=== PATIENT | male | born 1965 | race Hispanic/Latino ===

== ENCOUNTER 2017-02-26 23:05 | Inpatient (IN) | payer OTHER ==
[2017-02-26] MEDS ORDERED: CARDIZEM IV ONE ×2 (23:20→23:26)
[2017-02-26] MEDS ORDERED: DILAUDID IV ONE (23:26)
[2017-02-26] MEDS ORDERED: CARDIZEM/D5W 100MG/100ML 100 MG/100 ML BAG IV ONE (23:26)
[2017-02-26] MEDS ORDERED: ZOFRAN IV ONE (23:27)
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
[2017-02-27 00:13] LABS: Basophils % (Auto) 2.3 % (0.0-1.8); Eosinophils % (Auto) 1.3 % (0.0-4.3); Hemoglobin 16.8 gm/dl (11.8-15.2); Mean Corpuscular HGB Conc 34 % (32-34); Mean Corpuscular Hemoglobin 34 pg (28-32); Mean Corpuscular Volume 100 fl (84-94); Platelet Count 206 K/mm3 (140-440); Red Blood Count 5.03 M/mm3 (3.65-5.03); Red Cell Distribution Width 15.7 % (13.2-15.2); White Blood Count 8.4 K/mm3 (4.5-11.0)
[2017-02-27 00:21] LABS: INR 1.12 (0.87-1.13)
[2017-02-27 00:22] LABS: Partial Thromboplastin Time 29.8 Sec. (24.2-36.6)
[2017-02-27 00:41] LABS: Alanine Aminotransferase 36 units/L (7-56); Albumin 4.2 g/dL (3.9-5); Albumin/Globulin Ratio 1.4 %; Alkaline Phosphatase 84 units/L (35-129); Anion Gap 24 mmol/L; Blood Urea Nitrogen 6 mg/dL (9-20); Calcium 8.6 mg/dL (8.4-10.2); Carbon Dioxide 22 mmol/L (22-30); Glucose 140 mg/dL (75-100); Potassium 4.1 mmol/L (3.6-5.0); Sodium 140 mmol/L (137-145); Total Protein 7.2 g/dL (6.3-8.2)
[2017-02-27] MEDS ORDERED: DILAUDID IV ONE ×2 (00:45→08:28)
[2017-02-27 01:33] LABS: Creatine Kinase MB 6.5 ng/mL (0.0-4.0)
[2017-02-27 01:34] LABS: Creatine Kinase 210 units/L (55-170)
[2017-02-27] MEDS ORDERED: D50W (25GM) IV PRN (02:29)
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
[2017-02-27] MEDS: ATIVAN IV PRN ×4 (05:05→21:29)
[2017-02-27 06:42] LABS: Creatine Kinase MB 5.8 ng/mL (0.0-4.0)
[2017-02-27 06:43] LABS: Creatine Kinase 171 units/L (55-170)
[2017-02-27] MEDS ORDERED: CARDIZEM/D5W 100MG/100ML 100 MG/100 ML BAG IV SCH (07:00)
[2017-02-27] MEDS: NOVOLOG SUB-Q SCH ×4 (08:52→21:58)
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
[2017-02-27] MEDS ORDERED: LOPRESSOR PO SCH (13:00)
[2017-02-27] MEDS: LASIX IV SCH (13:09)
[2017-02-27 13:58] LABS: Creatine Kinase MB 4.7 ng/mL (0.0-4.0)
[2017-02-27 13:59] LABS: Creatine Kinase 148 units/L (55-170)
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
[2017-02-27] MEDS: LOPRESSOR PO SCH ×3 (15:11→21:30)
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
[2017-02-27] MEDS: VITAMIN B-1 PO SCH (15:26)
[2017-02-27] MEDS: FOLVITE PO SCH (15:26)
[2017-02-27] MEDS: PROTONIX PO SCH (15:26)
[2017-02-27] MEDS: DILAUDID IV PRN (15:31)
--- NOTE | 2017-02-27 20:36 | Admit Criteria Form ---
Admission Criteria Documentation: ATRIAL FIBRILLATION Clinical Indications for Admission to Inpatient Care (Place 'X' for any and all applicable criteria): Admission indicated for ANY ONE of the following(1)(2)(3)(4)(5) : [ ]I. Myocardial ischemia [ ]II. Dyspnea or hypoxemia [ ]III. Hemodynamic instability [ ]IV. Heart failure (e.g., pulmonary edema) (7) [ ]V. New-onset (less than 48 hours) atrial fibrillation with high risk for causing complications secondary to comorbidities (eg, symptomatic heart failure ) [ ]. Altered mental status [ ]VII. Syncope [ ]VIII. Patient has implantable cardioverter defibrillator that has fired more than once within past 24hr or needs immediate adjustment of settings that cannot be done other than in inpatient setting. (8) [ ]IX. Suspected accessory pathway (e.g., Xbspk-Akpxrcywv-Rmapg syndrome) on ECG [ ]X. Recent systemic thromboembolism (eg, stroke) [ ]XI. Medication toxicity (e.g., digitalis) causing arrhythmia(9) [ ]XII. Underlying medical condition that necessitates inpatient care (e.g., thyrotoxicosis, pneumonia) (10) [ ]XIII. Continuous ECG monitoring is required for condition causing arrhythmia (e.g., severe hyperkalemia, hypokalemia, acid-base disturbance).(11)(12)(13) [ ]XIV. Initiation of antiarrhythmic drug therapy is needed in patient at high risk of adverse effects as indicated by ANY ONE of the following: [ ]a) Significant structural heart disease (e.g., reduced ejection fraction, congenital heart disease, valvular heart disease) [ ]b) Prolonged QT interval [ ]c) Underlying sinus node or atrioventricular conduction disturbances [ ]d) Need for treatment with antiarrhythmic drugs that have significant proarrhythmic potential (e.g., dofetilide, sotalol, procainamide) [ ]e) Patient whose sinus rhythm has never been observed on ECG [ ]XV. Intolerable symptoms despite optimal outpatient treatment [ ]XVI. Elective or urgent cardioversion that cannot be performed on outpatient basis or during observation care. [A] (Use also Atrial Fibrillation: Observation Care ) as appropriate.(14) [ ]XVII.Contraindications and/or Inappropriate clinical situations for Observational Care in patients with Atrial Fibrillation, when ANY ONE of the following is required: [ ]a) Patient with High risk of cardiac embolism (e.g, patients with previous cardiac embolism, LVEF < 40%, age >75 and patients with prosthetic valve) 18 [ ]b) Patient with Moderate risk including DM patient, CAD and patient aged 65-75 18 [ ]c) Patient with any change in cardiac biomarker especially troponin should be managed as high risk in an inpatient setting 19 [ ]d) Physician judgement irrespective of ECG and other diagnostic findings 20 [X ]XVIII.General contraindications and/or Inappropriate clinical situations for Observational Care in patients with Atrial Fibrillation, when ANY ONE of the following is required: [X ]a) Prediction of prolongation of LOS based on ANY ONE of the following may be considered as a contraindication for observational care 2, 3, 4, 5, 6, 7, 8, 9, 10, 11 [ ]i) Age > 65 yrs. [X ]ii) Patient arriving by ambulance [ ]iii) Patient with high acuity [ ]iv) Patient requiring vital sign monitoring [ ]v) Patient on IV medication [ ]b) Systolic blood pressures 180mmHg 3,12 [ ]c) Patient with altered mental status including delirium and other alteration of consciousness3 [ ]d) Patient whose discharge disposition will be to a half-way home or rehabilitation home should not be managed in Emergency Department Observation Unit. CMS rule requires 3 days hospital stay before such placement.3,13 [ ]e) Patient with failure to thrive due to broad array of etiologies 3,16,17 [ ]f) Inability to ambulate 3,14 Extended stay beyond goal length of stay may be needed for (1)(25)(26): [ ]a) Unstable comorbidities [ ]b) Persistently uncontrolled atrial fibrillation or other arrhythmias [ ]c) Acute thromboembolic event (e.g., stroke, limb ischemia) [ ]d) Need for inpatient attainment of full anticoagulation The original [employer] content created by [employer] has been revised. The portions of the content which have been revised are identified through the use of italic text or in bold, and [facility] has neither reviewed nor approved the modified material. All other unmodified content is copyright [facility]. Please see references footnoted in the original [facility] edition 2016 Admission Criteria Met: Yes
[2017-02-27] MEDS: LOVENOX SUB-Q SCH (21:30)
[2017-02-28] MEDS: ATIVAN IV PRN ×8 (00:17→15:11)
[2017-02-28] MEDS: DILAUDID IV PRN ×3 (00:17→22:59)
[2017-02-28 05:00] LABS: BUN/Creatinine Ratio 13.33; Blood Urea Nitrogen 8 mg/dL (9-20); Calcium 8.9 mg/dL (8.4-10.2); Carbon Dioxide 30 mmol/L (22-30); Glucose 126 mg/dL (75-100); Potassium 4.6 mmol/L (3.6-5.0); Sodium 138 mmol/L (137-145)
[2017-02-28 05:01] LABS: Hematocrit 47.6 % (35.5-45.6); Hemoglobin 15.9 gm/dl (11.8-15.2); Mean Corpuscular HGB Conc 33 % (32-34); Mean Corpuscular Hemoglobin 34 pg (28-32); Mean Corpuscular Volume 100 fl (84-94); Platelet Count 177 K/mm3 (140-440); Red Blood Count 4.75 M/mm3 (3.65-5.03); Red Cell Distribution Width 15.4 % (13.2-15.2); White Blood Count 10.3 K/mm3 (4.5-11.0)
[2017-02-28 05:04] LABS: Anion Gap 18 mmol/L
[2017-02-28] MEDS: LOPRESSOR PO SCH ×4 (05:37→20:17)
[2017-02-28] MEDS: HALDOL IV PRN (07:35)
[2017-02-28] MEDS: NOVOLOG SUB-Q SCH ×3 (08:00→17:00)
[2017-02-28] MEDS: LASIX IV SCH (09:17)
[2017-02-28] MEDS: VITAMIN B-1 PO SCH (09:17)
[2017-02-28] MEDS: FOLVITE PO SCH (09:17)
[2017-02-28] MEDS: PROTONIX PO SCH (09:18)
--- NOTE | 2017-02-28 09:46 | Progress Note ---
Assessment and Plan afib with rvr ams left rib fracture htn eoth abuse Cardiomyopathy rec: Patient altered mental status probably secondary due to EtOH abuse will restart IV Cardizem waiting echo patient not anticoagulation secondary to noncompliance Subjective Date of service: 02/28/17 Principal diagnosis: afib Interval history: pt on restraints and having ams Objective Vital Signs Temp Pulse Pulse Pulse Pulse Pulse Pulse 02/28/17 09:17 132 H 02/28/17 09:00 131 H 02/28/17 08:03 02/28/17 08:00 99.4 F 128 H 02/28/17 07:00 129 H 02/28/17 06:00 114 H 02/28/17 05:37 161 H 02/28/17 05:00 112 H 02/28/17 04:00 115 H 02/28/17 03:49 98.2 F 02/28/17 03:33 87 87 87 02/28/17 03:00 103 H 02/28/17 02:00 100 H 02/28/17 01:00 92 H 02/28/17 00:17 02/28/17 00:06 110 H 02/28/17 00:00 98.4 F 107 H 98 H 98 H 98 H 98 H 02/27/17 23:00 94 H 02/27/17 22:00 89 02/27/17 21:56 92 H 02/27/17 21:30 87 02/27/17 21:00 90 02/27/17 20:00 98.2 F 89 87 87 87 02/27/17 19:52 02/27/17 19:00 78 02/27/17 18:00 83 02/27/17 17:00 85 02/27/17 16:06 98.2 F 02/27/17 16:01 02/27/17 16:00 86 02/27/17 15:31 02/27/17 15:30 90 02/27/17 15:26 98 H 02/27/17 15:00 100 H 02/27/17 14:30 86 02/27/17 14:00 101 H 02/27/17 13:39 02/27/17 13:30 99 H 02/27/17 13:00 97.8 F 98 H 02/27/17 12:41 91 H 02/27/17 12:00 93 H 02/27/17 11:30 87 02/27/17 11:00 84 02/27/17 10:30 96 H 02/27/17 10:00 93 H Resp BP Pulse Ox 02/28/17 09:17 176/131 02/28/17 09:00 19 168/140 94 02/28/17 08:03 97 02/28/17 08:00 20 157/127 94 02/28/17 07:00 17 158/125 97 02/28/17 06:00 14 162/116 94 02/28/17 05:37 161/115 02/28/17 05:00 15 148/119 96 02/28/17 04:00 12 166/107 96 02/28/17 03:49 02/28/17 03:33 97 02/28/17 03:00 12 150/110 95 02/28/17 02:00 10 L 131/101 97 02/28/17 01:00 9 L 133/102 95 02/28/17 00:17 14 02/28/17 00:06 11 L 169/120 95 02/28/17 00:00 15 169/120 97 02/27/17 23:00 14 165/111 96 02/27/17 22:00 10 L 155/97 92 02/27/17 21:56 02/27/17 21:30 152/110 02/27/17 21:00 9 L 162/114 96 02/27/17 20:00 14 153/121 95 02/27/17 19:52 95 02/27/17 19:00 8 L 141/117 94 02/27/17 18:00 9 L 147/101 94 02/27/17 17:00 8 L 139/98 93 02/27/17 16:06 02/27/17 16:01 12 02/27/17 16:00 9 L 138/98 93 02/27/17 15:31 12 02/27/17 15:30 9 L 159/116 92 02/27/17 15:26 159/99 02/27/17 15:00 19 179/115 02/27/17 14:30 10 L 169/115 94 02/27/17 14:00 10 L 143/109 93 02/27/17 13:39 97 02/27/17 13:30 10 L 172/113 90 02/27/17 13:00 13 156/103 94 02/27/17 12:41 13 171/116 02/27/17 12:00 9 L 141/115 94 02/27/17 11:30 8 L 135/111 93 02/27/17 11:00 9 L 152/100 93 02/27/17 10:30 8 L 148/101 92 02/27/17 10:00 10 L 161/102 89 - Physical Examination General: Other HEENT: Positive: PERRL, EOMI Neck: Positive: neck supple Cardiac: Positive: Irregularly Regular, Tachycardia Lungs: Positive: clear to auscultation Neuro: Positive: Grossly Intact Abdomen: Positive: Active Bowel Sounds, Tender (left lateral) Skin: Positive: Clear Extremities: Present: normal. Absent: edema - Labs and Meds Cardiac Enzymes 02/27/17 Range/Units 13:08 CK-MB (CK-2) 4.7 H (0.0-4.0) ng/mL CBC 02/28/17 Range/Units 03:32 WBC 10.3 (4.5-11.0) K/mm3 RBC 4.75 (3.65-5.03) M/mm3 Hgb 15.9 H (11.8-15.2) gm/dl Hct 47.6 H (35.5-45.6) % Plt Count 177 (140-440) K/mm3 Comprehensive Metabolic Panel 02/28/17 Range/Units 03:32 Sodium 138 (137-145) mmol/L Potassium 4.6 (3.6-5.0) mmol/L Chloride 95.0 L (98-107) mmol/L Carbon Dioxide 30 D (22-30) mmol/L BUN 8 L (9-20) mg/dL Creatinine 0.6 L (0.8-1.5) mg/dL Glucose 126 H (75-100) mg/dL Calcium 8.9 (8.4-10.2) mg/dL - Imaging and Cardiology Echo: report reviewed (03/2015 EF 40-45% with mild mitral regurgitation and mild tricuspid regurgitation) - Telemetry EKG Rhythm: Atrial Fibrillation (130's)
[2017-02-28] MEDS: CARDIZEM/D5W 100MG/100ML 100 MG/100 ML BAG IV SCH ×2 (10:44→23:44)
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
--- NOTE | 2017-02-28 11:21 | Progress Note ---
Assessment and Plan Assessment and plan: Afib with rvr. Cont. iv Cardizem drip. Cardiology following. TSH is normal. Alcohol abuse. Continue ciwa protocol, thiamine/folic acid Chest pain. Etiology secondary to rib fractures. Continue supportive care. Hyperglycemia etiology is likely secondary to uncontrolled DM II. Continue ssi and check hemoglobin a1c DVT prophylaxis. Continue sq lovenox History Interval history: Nursing reports CIWA score of greater than 30. Patient extremely agitated requiring restraints Hospitalist Physical - Constitutional Vitals: Temp Pulse Resp BP Pulse Ox 99.4 F 129 H 19 179/122 94 02/28/17 08:00 02/28/17 10:44 02/28/17 09:00 02/28/17 10:44 02/28/17 09:00 General appearance: Present: mild distress - EENT Eyes: Present: PERRL, EOM intact ENT: hearing intact, clear oral mucosa, dentition normal - Neck Neck: Present: supple, normal ROM - Respiratory Respiratory effort: normal Respiratory: bilateral: CTA - Cardiovascular Rhythm: regular Heart Sounds: Present: S1 & S2. Absent: gallop, rub - Extremities Extremities: no ischemia, No edema, Full ROM - Abdominal General gastrointestinal: soft, non-tender, non-distended, normal bowel sounds - Integumentary Integumentary: Present: clear, warm, dry - Neurologic Neurologic: CNII-XII intact, moves all extremities Results - Labs CBC & Chem 7: 02/28/17 03:32 02/28/17 03:32 Labs: Laboratory Last Values WBC 10.3 K/mm3 (4.5-11.0) 02/28/17 03:32 RBC 4.75 M/mm3 (3.65-5.03) 02/28/17 03:32 Hgb 15.9 gm/dl (11.8-15.2) H 02/28/17 03:32 Hct 47.6 % (35.5-45.6) H 02/28/17 03:32 MCV 100 fl (84-94) H 02/28/17 03:32 MCH 34 pg (28-32) H 02/28/17 03:32 MCHC 33 % (32-34) 02/28/17 03:32 RDW 15.4 % (13.2-15.2) H 02/28/17 03:32 Plt Count 177 K/mm3 (140-440) 02/28/17 03:32 Lymph % (Auto) 20.7 % (13.4-35.0) 02/26/17 23:40 Green % (Auto) 10.7 % (0.0-7.3) H 02/26/17 23:40 Eos % (Auto) 1.3 % (0.0-4.3) 02/26/17 23:40 Baso % (Auto) 2.3 % (0.0-1.8) H 02/26/17 23:40 Lymph # 1.7 K/mm3 (1.2-5.4) 02/26/17 23:40 Green # 0.9 K/mm3 (0.0-0.8) H 02/26/17 23:40 Eos # 0.1 K/mm3 (0.0-0.4) 02/26/17 23:40 Baso # 0.2 K/mm3 (0.0-0.1) H 02/26/17 23:40 Seg Neutrophils % 65.0 % (40.0-70.0) 02/26/17 23:40 Seg Neutrophils # 5.5 K/mm3 (1.8-7.7) 02/26/17 23:40 PT 14.3 Sec. (12.2-14.9) 02/26/17 23:40 INR 1.12 (0.87-1.13) 02/26/17 23:40 APTT 29.8 Sec. (24.2-36.6) 02/26/17 23:40 Sodium 138 mmol/L (137-145) 02/28/17 03:32 Potassium 4.6 mmol/L (3.6-5.0) 02/28/17 03:32 Chloride 95.0 mmol/L (98-107) L 02/28/17 03:32 Carbon Dioxide 30 mmol/L (22-30) D 02/28/17 03:32 Anion Gap 18 mmol/L 02/28/17 03:32 BUN 8 mg/dL (9-20) L 02/28/17 03:32 Creatinine 0.6 mg/dL (0.8-1.5) L 02/28/17 03:32 Estimated GFR > 60 ml/min 02/28/17 03:32 BUN/Creatinine Ratio 13.33 % 02/28/17 03:32 Glucose 126 mg/dL (75-100) H 02/28/17 03:32 POC Glucose 134 (70-105) H 02/28/17 07:55 Calcium 8.9 mg/dL (8.4-10.2) 02/28/17 03:32 Magnesium 1.60 mg/dL (1.7-2.3) L 02/28/17 03:32 Total Bilirubin 0.70 mg/dL (0.1-1.2) 02/26/17 23:40 AST 70 units/L (5-40) H 02/26/17 23:40 ALT 36 units/L (7-56) 02/26/17 23:40 Alkaline Phosphatase 84 units/L (35-129) 02/26/17 23:40 Total Creatine Kinase 148 units/L (55-170) 02/27/17 13:08 CK-MB (CK-2) 4.7 ng/mL (0.0-4.0) H 02/27/17 13:08 CK-MB (CK-2) Rel Index 3.1 (0-4) 02/27/17 13:08 Troponin T < 0.010 ng/mL (0.00-0.029) 02/27/17 13:08 Total Protein 7.2 g/dL (6.3-8.2) 02/26/17 23:40 Albumin 4.2 g/dL (3.9-5) 02/26/17 23:40 Albumin/Globulin Ratio 1.4 % 02/26/17 23:40 TSH 1.480 mlU/mL (0.270-4.200) 02/26/17 23:40 Free T4 1.16 ng/dL (0.76-1.46) 02/26/17 23:40 Plasma/Serum Alcohol 0.24 gm% (0-0.07) H 02/26/17 23:40
[2017-02-28] MEDS: LOVENOX SUB-Q SCH (22:29)
[2017-03-01] MEDS: LOPRESSOR PO SCH ×4 (04:42→21:45)
[2017-03-01] MEDS: NOVOLOG SUB-Q SCH ×5 (04:59→22:00)
[2017-03-01] MEDS ORDERED: MAGNESIUM SULFATE 4GM/100ML 4 GM/100 ML BAG IV ONE (09:00)
--- NOTE | 2017-03-01 09:31 | Progress Note ---
Assessment and Plan Assessment: AFib with RVR AMS left rib fracture HTN ETOH abuse Cardiomyopathy Hypomagnesemia Plan: Initiate PO amio, 400mg BID. Wean cardizem gtt off for HR <120bpm. Cont Lopressor, 50mg Q6H. Titrate as tolerated. Replete magnesium. Repeat BMP and Mg in AM. Await echo. Patient not anticoagulation secondary to noncompliance. The patient has been seen in conjunction with Dr. Patel who agrees with the assessment and plan of care. Subjective Date of service: 03/01/17 Principal diagnosis: afib Interval history: Pt resting in bed, more alert today. Remains in AFib with HR 100s - 110s, on cardizem gtt at 15mg/hr. BPs stable. Objective Last Vital Signs Temp 100 F H 03/01/17 08:00 Pulse 114 H 03/01/17 07:41 Resp 21 03/01/17 07:00 BP 147/117 03/01/17 07:41 Pulse Ox 95 03/01/17 08:19 - Physical Examination General: No Apparent Distress HEENT: Positive: PERRL, EOMI Neck: Positive: neck supple Cardiac: Positive: irregularly irregular, S1/S2, Tachycardia Lungs: Positive: Decreased Breath Sounds Neuro: Positive: Grossly Intact Abdomen: Positive: Active Bowel Sounds Skin: Positive: Clear Extremities: Present: normal. Absent: edema - Imaging and Cardiology Echo: report reviewed (03/2015 EF 40-45% with mild mitral regurgitation and mild tricuspid regurgitation) - Telemetry EKG Rhythm: Atrial Fibrillation
[2017-03-01] MEDS: ATIVAN IV PRN ×4 (10:22→23:46)
[2017-03-01] MEDS: PROTONIX PO SCH (10:23)
[2017-03-01] MEDS: LASIX IV SCH (10:23)
[2017-03-01] MEDS: FOLVITE PO SCH (10:23)
[2017-03-01] MEDS: VITAMIN B-1 PO SCH (10:23)
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
[2017-03-01] MEDS: CARDIZEM/D5W 100MG/100ML 100 MG/100 ML BAG IV SCH (10:50)
[2017-03-01] MEDS: CORDARONE PO SCH ×2 (11:04→22:30)
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
[2017-03-01] MEDS: LOVENOX SUB-Q SCH (22:30)
[2017-03-01] MEDS: DILAUDID IV PRN (23:29)
[2017-03-02] MEDS: LOPRESSOR PO SCH ×4 (02:50→21:00)
[2017-03-02] MEDS: ATIVAN IV PRN ×3 (03:50→14:35)
[2017-03-02] MEDS: NOVOLOG SUB-Q SCH ×4 (07:45→22:00)
[2017-03-02] MEDS: CORDARONE PO SCH ×2 (09:21→22:12)
[2017-03-02] MEDS: FOLVITE PO SCH (09:21)
[2017-03-02] MEDS: LASIX IV SCH (09:21)
[2017-03-02] MEDS: VITAMIN B-1 PO SCH (09:22)
[2017-03-02] MEDS: PROTONIX PO SCH (09:22)
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
--- NOTE | 2017-03-02 11:33 | Progress Note ---
Assessment and Plan Assessment and plan: Afib with rvr. Cont. amiodarone 400 mg twice a day. Continue Lopressor 50 mg every 6 hours. Cardiology following. Alcohol abuse. Continue ciwa protocol, thiamine/folic acid Encephalopathy. Etiology secondary to EtOH withdrawal. Left rib fractures. Continue supportive care. Cardiomyopathy. Follow-up echocardiogram. Hypomagnesemia. Replete magnesium. DVT prophylaxis. Continue sq lovenox History Interval history: Patient still agitated at times. Hospitalist Physical - Constitutional Vitals: Temp Pulse Resp BP Pulse Ox 98.1 F 118 H 15 128/94 100 03/02/17 08:00 03/02/17 09:21 03/02/17 08:00 03/02/17 09:21 03/02/17 08:09 General appearance: Present: no acute distress - EENT Eyes: Present: PERRL, EOM intact ENT: hearing intact, clear oral mucosa, dentition normal - Neck Neck: Present: supple, normal ROM - Respiratory Respiratory effort: normal Respiratory: bilateral: CTA - Cardiovascular Rhythm: regular Heart Sounds: Present: S1 & S2. Absent: gallop, rub - Extremities Extremities: no ischemia, No edema, Full ROM - Abdominal General gastrointestinal: soft, non-tender, non-distended, normal bowel sounds - Integumentary Integumentary: Present: clear, warm, dry - Neurologic Neurologic: CNII-XII intact, moves all extremities Results - Labs CBC & Chem 7: 02/28/17 03:32 02/28/17 03:32 Labs: Laboratory Last Values WBC 10.3 K/mm3 (4.5-11.0) 02/28/17 03:32 RBC 4.75 M/mm3 (3.65-5.03) 02/28/17 03:32 Hgb 15.9 gm/dl (11.8-15.2) H 02/28/17 03:32 Hct 47.6 % (35.5-45.6) H 02/28/17 03:32 MCV 100 fl (84-94) H 02/28/17 03:32 MCH 34 pg (28-32) H 02/28/17 03:32 MCHC 33 % (32-34) 02/28/17 03:32 RDW 15.4 % (13.2-15.2) H 02/28/17 03:32 Plt Count 177 K/mm3 (140-440) 02/28/17 03:32 Lymph % (Auto) 20.7 % (13.4-35.0) 02/26/17 23:40 [place] % (Auto) 10.7 % (0.0-7.3) H 02/26/17 23:40 Eos % (Auto) 1.3 % (0.0-4.3) 02/26/17 23:40 Baso % (Auto) 2.3 % (0.0-1.8) H 02/26/17 23:40 Lymph # 1.7 K/mm3 (1.2-5.4) 02/26/17 23:40 [place] # 0.9 K/mm3 (0.0-0.8) H 02/26/17 23:40 Eos # 0.1 K/mm3 (0.0-0.4) 02/26/17 23:40 Baso # 0.2 K/mm3 (0.0-0.1) H 02/26/17 23:40 Seg Neutrophils % 65.0 % (40.0-70.0) 02/26/17 23:40 Seg Neutrophils # 5.5 K/mm3 (1.8-7.7) 02/26/17 23:40 PT 14.3 Sec. (12.2-14.9) 02/26/17 23:40 INR 1.12 (0.87-1.13) 02/26/17 23:40 APTT 29.8 Sec. (24.2-36.6) 02/26/17 23:40 Sodium 138 mmol/L (137-145) 02/28/17 03:32 Potassium 4.6 mmol/L (3.6-5.0) 02/28/17 03:32 Chloride 95.0 mmol/L (98-107) L 02/28/17 03:32 Carbon Dioxide 30 mmol/L (22-30) D 02/28/17 03:32 Anion Gap 18 mmol/L 02/28/17 03:32 BUN 8 mg/dL (9-20) L 02/28/17 03:32 Creatinine 0.6 mg/dL (0.8-1.5) L 02/28/17 03:32 Estimated GFR > 60 ml/min 02/28/17 03:32 BUN/Creatinine Ratio 13.33 % 02/28/17 03:32 Glucose 126 mg/dL (75-100) H 02/28/17 03:32 POC Glucose 127 (70-105) H 03/02/17 08:11 Calcium 8.9 mg/dL (8.4-10.2) 02/28/17 03:32 Magnesium 1.60 mg/dL (1.7-2.3) L 02/28/17 03:32 Total Bilirubin 0.70 mg/dL (0.1-1.2) 02/26/17 23:40 AST 70 units/L (5-40) H 02/26/17 23:40 ALT 36 units/L (7-56) 02/26/17 23:40 Alkaline Phosphatase 84 units/L (35-129) 02/26/17 23:40 Total Creatine Kinase 148 units/L (55-170) 02/27/17 13:08 CK-MB (CK-2) 4.7 ng/mL (0.0-4.0) H 02/27/17 13:08 CK-MB (CK-2) Rel Index 3.1 (0-4) 02/27/17 13:08 Troponin T < 0.010 ng/mL (0.00-0.029) 02/27/17 13:08 Total Protein 7.2 g/dL (6.3-8.2) 02/26/17 23:40 Albumin 4.2 g/dL (3.9-5) 02/26/17 23:40 Albumin/Globulin Ratio 1.4 % 02/26/17 23:40 TSH 1.480 mlU/mL (0.270-4.200) 02/26/17 23:40 Free T4 1.16 ng/dL (0.76-1.46) 02/26/17 23:40 Plasma/Serum Alcohol 0.24 gm% (0-0.07) H 02/26/17 23:40
[2017-03-02 12:14] LABS: Basophils % (Auto) 0.6 % (0.0-1.8); Eosinophils % (Auto) 0.2 % (0.0-4.3); Hematocrit 49.3 % (35.5-45.6); Hemoglobin 16.3 gm/dl (11.8-15.2); Mean Corpuscular HGB Conc 33 % (32-34); Mean Corpuscular Hemoglobin 33 pg (28-32); Mean Corpuscular Volume 101 fl (84-94); Platelet Count 192 K/mm3 (140-440); Red Cell Distribution Width 14.8 % (13.2-15.2); White Blood Count 17.9 K/mm3 (4.5-11.0)
[2017-03-02 12:27] LABS: Anion Gap 17 mmol/L; BUN/Creatinine Ratio 31.66; Blood Urea Nitrogen 19 mg/dL (9-20); Calcium 8.9 mg/dL (8.4-10.2); Carbon Dioxide 32 mmol/L (22-30); Chloride 90.3 mmol/L (98-107); Glucose 124 mg/dL (75-100); Potassium 3.9 mmol/L (3.6-5.0); Sodium 135 mmol/L (137-145)
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
[2017-03-02] MEDS: ZOSYN/NS 4.5GM/100ML 4.5 GM/100 ML VIAL IV SCH ×2 (16:12→21:45)
[2017-03-02] MEDS: HALDOL IV PRN (16:32)
[2017-03-02] MEDS ORDERED: LANOXIN IV ONE (17:00)
[2017-03-02] MEDS: TYLENOL PO PRN (22:09)
[2017-03-02] MEDS: LOVENOX SUB-Q SCH (22:11)
[2017-03-03] MEDS: LOPRESSOR PO SCH ×4 (02:20→20:45)
[2017-03-03] MEDS: DILAUDID IV PRN ×3 (03:15→19:31)
[2017-03-03 05:16] LABS: Anion Gap 20 mmol/L; BUN/Creatinine Ratio 28.57; Blood Urea Nitrogen 20 mg/dL (9-20); Calcium 8.4 mg/dL (8.4-10.2); Carbon Dioxide 29 mmol/L (22-30); Chloride 91.1 mmol/L (98-107); Glucose 136 mg/dL (75-100); Potassium 3.1 mmol/L (3.6-5.0); Sodium 137 mmol/L (137-145)
[2017-03-03 05:48] LABS: Hematocrit 45.3 % (35.5-45.6); Hemoglobin 15.1 gm/dl (11.8-15.2); Mean Corpuscular Volume 100 fl (84-94); Red Blood Count 4.56 M/mm3 (3.65-5.03); White Blood Count 14.7 K/mm3 (4.5-11.0)
[2017-03-03 05:49] LABS: Basophils % (Auto) 0.3 % (0.0-1.8); Eosinophils % (Auto) 0.4 % (0.0-4.3); Mean Corpuscular HGB Conc 33 % (32-34); Mean Corpuscular Hemoglobin 33 pg (28-32); Mean Platelet Volume 9.6 fl (6-12); Platelet Count 186 K/mm3 (140-440); Red Cell Distribution Width 14.7 % (13.2-15.2)
[2017-03-03] MEDS: ZOSYN/NS 4.5GM/100ML 4.5 GM/100 ML VIAL IV SCH ×3 (06:00→22:00)
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
[2017-03-03] MEDS: NOVOLOG SUB-Q SCH ×3 (09:23→16:35)
[2017-03-03] MEDS: LASIX IV SCH (09:24)
[2017-03-03] MEDS: CORDARONE PO SCH ×2 (09:24→21:34)
[2017-03-03] MEDS: VITAMIN B-1 PO SCH (09:24)
[2017-03-03] MEDS: PROTONIX PO SCH (09:24)
[2017-03-03] MEDS: FOLVITE PO SCH (09:24)
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
[2017-03-03] MEDS ORDERED: LANOXIN IV ONE (10:07)
[2017-03-03] MEDS ORDERED: POTASSIUM CHLORIDE FEEDTUBE ONE (10:08)
[2017-03-03] MEDS ORDERED: LIBRIUM PO PRN (10:38)
--- NOTE | 2017-03-03 11:42 | Progress Note ---
Assessment and Plan Assessment and plan: Afib with rvr. Cont. amiodarone 400 mg twice a day. Continue Lopressor 50 mg every 6 hours. Continue digoxin when necessary. Cardiology following. Echocardiogram reveals EF 30-35% with right ventricular systolic function severely reduced. Trace TR. Patient is not on anticoagulation secondary to noncompliance. Alcohol abuse. Continue ciwa protocol, thiamine/folic acid Encephalopathy. Etiology secondary to EtOH withdrawal. Left rib fractures. Continue supportive care. Cardiomyopathy. Echocardiogram as above. Plans for ischemic evaluation per cardiology. Pulmonary hypertension. Hypokalemia. Replete potassium to maintain approximately 4.0. DVT prophylaxis. Continue sq lovenox History Interval history: Patient still agitated at times. Hospitalist Physical - Constitutional Vitals: Temp Pulse Resp BP Pulse Ox 98.6 F 104 H 9 L 145/105 99 03/03/17 08:00 03/03/17 11:00 03/03/17 11:00 03/03/17 11:00 03/03/17 11:00 General appearance: Present: no acute distress - EENT Eyes: Present: PERRL, EOM intact ENT: hearing intact, clear oral mucosa, dentition normal - Neck Neck: Present: supple, normal ROM - Respiratory Respiratory effort: normal Respiratory: bilateral: CTA - Cardiovascular Rhythm: regular Heart Sounds: Present: S1 & S2. Absent: gallop, rub - Extremities Extremities: no ischemia, No edema, Full ROM - Abdominal General gastrointestinal: soft, non-tender, non-distended, normal bowel sounds - Integumentary Integumentary: Present: clear, warm, dry - Neurologic Neurologic: CNII-XII intact, moves all extremities Results - Labs CBC & Chem 7: 03/03/17 03:59 03/03/17 04:07 Labs: Laboratory Last Values WBC 14.7 K/mm3 (4.5-11.0) H 03/03/17 03:59 RBC 4.56 M/mm3 (3.65-5.03) 03/03/17 03:59 Hgb 15.1 gm/dl (11.8-15.2) 03/03/17 03:59 Hct 45.3 % (35.5-45.6) 03/03/17 03:59 MCV 100 fl (84-94) H 03/03/17 03:59 MCH 33 pg (28-32) H 03/03/17 03:59 MCHC 33 % (32-34) 03/03/17 03:59 RDW 14.7 % (13.2-15.2) 03/03/17 03:59 Plt Count 186 K/mm3 (140-440) 03/03/17 03:59 Lymph % (Auto) 10.9 % (13.4-35.0) L 03/03/17 03:59 [place] % (Auto) 14.8 % (0.0-7.3) H 03/03/17 03:59 Eos % (Auto) 0.4 % (0.0-4.3) 03/03/17 03:59 Baso % (Auto) 0.3 % (0.0-1.8) 03/03/17 03:59 Lymph # 1.6 K/mm3 (1.2-5.4) 03/03/17 03:59 [place] # 2.2 K/mm3 (0.0-0.8) H 03/03/17 03:59 Eos # 0.1 K/mm3 (0.0-0.4) 03/03/17 03:59 Baso # 0.0 K/mm3 (0.0-0.1) 03/03/17 03:59 Seg Neutrophils % 73.6 % (40.0-70.0) H 03/03/17 03:59 Seg Neutrophils # 10.8 K/mm3 (1.8-7.7) H 03/03/17 03:59 PT 14.3 Sec. (12.2-14.9) 02/26/17 23:40 INR 1.12 (0.87-1.13) 02/26/17 23:40 APTT 29.8 Sec. (24.2-36.6) 02/26/17 23:40 Sodium 137 mmol/L (137-145) 03/03/17 04:07 Potassium 3.1 mmol/L (3.6-5.0) L D 03/03/17 04:07 Chloride 91.1 mmol/L (98-107) L 03/03/17 04:07 Carbon Dioxide 29 mmol/L (22-30) 03/03/17 04:07 Anion Gap 20 mmol/L 03/03/17 04:07 BUN 20 mg/dL (9-20) 03/03/17 04:07 Creatinine 0.7 mg/dL (0.8-1.5) L 03/03/17 04:07 Estimated GFR > 60 ml/min 03/03/17 04:07 BUN/Creatinine Ratio 28.57 % 03/03/17 04:07 Glucose 136 mg/dL (75-100) H 03/03/17 04:07 POC Glucose 127 (70-105) H 03/02/17 22:41 Calcium 8.4 mg/dL (8.4-10.2) 03/03/17 04:07 Magnesium 2.30 mg/dL (1.7-2.3) 03/02/17 09:12 Total Bilirubin 0.70 mg/dL (0.1-1.2) 02/26/17 23:40 AST 70 units/L (5-40) H 02/26/17 23:40 ALT 36 units/L (7-56) 02/26/17 23:40 Alkaline Phosphatase 84 units/L (35-129) 02/26/17 23:40 Total Creatine Kinase 148 units/L (55-170) 02/27/17 13:08 CK-MB (CK-2) 4.7 ng/mL (0.0-4.0) H 02/27/17 13:08 CK-MB (CK-2) Rel Index 3.1 (0-4) 02/27/17 13:08 Troponin T < 0.010 ng/mL (0.00-0.029) 02/27/17 13:08 Total Protein 7.2 g/dL (6.3-8.2) 02/26/17 23:40 Albumin 4.2 g/dL (3.9-5) 02/26/17 23:40 Albumin/Globulin Ratio 1.4 % 02/26/17 23:40 TSH 1.480 mlU/mL (0.270-4.200) 02/26/17 23:40 Free T4 1.16 ng/dL (0.76-1.46) 02/26/17 23:40 Plasma/Serum Alcohol 0.24 gm% (0-0.07) H 02/26/17 23:40
[2017-03-03 13:53] LABS: Bilirubin,Urine NEG (Negative); Blood,Urine LG (Negative); Ketones,Urine NEG (Negative); Leukocyte Esterase,Urine TR (Negative); Mucus,Urine FEW /HPF; Nitrite,Urine NEG (Negative); Protein,Urine <15 mg/dL mg/dL (Negative); Urobilinogen,Urine < 2.0 mg/dL (<2.0)
[2017-03-03] MEDS: LIBRIUM PO SCH (19:31)
[2017-03-03] MEDS: ATIVAN IV PRN ×2 (21:05→21:55)
[2017-03-03] MEDS: LOVENOX SUB-Q SCH (21:35)
[2017-03-04] MEDS: NOVOLOG SUB-Q SCH ×4 (00:19→23:49)
[2017-03-04] MEDS: LIBRIUM PO SCH ×6 (00:36→22:14)
[2017-03-04] MEDS: LOPRESSOR PO SCH ×4 (02:00→20:32)
[2017-03-04] MEDS: ZOSYN/NS 4.5GM/100ML 4.5 GM/100 ML VIAL IV SCH ×3 (06:00→21:30)
[2017-03-04] MEDS: ATIVAN IV PRN ×6 (06:20→17:49)
[2017-03-04 06:40] LABS: Hemoglobin 15.2 gm/dl (11.8-15.2); Mean Corpuscular HGB Conc 33 % (32-34); Mean Corpuscular Hemoglobin 33 pg (28-32); Mean Corpuscular Volume 101 fl (84-94); Platelet Count 170 K/mm3 (140-440); Red Blood Count 4.56 M/mm3 (3.65-5.03); Red Cell Distribution Width 14.1 % (13.2-15.2); White Blood Count 11.4 K/mm3 (4.5-11.0)
[2017-03-04 06:52] LABS: Anion Gap 15 mmol/L; BUN/Creatinine Ratio 26.66; Blood Urea Nitrogen 16 mg/dL (9-20); Calcium 8.7 mg/dL (8.4-10.2); Carbon Dioxide 33 mmol/L (22-30); Chloride 92.2 mmol/L (98-107); Glucose 133 mg/dL (75-100); Potassium 3.3 mmol/L (3.6-5.0); Sodium 137 mmol/L (137-145)
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
[2017-03-04] MEDS: HALDOL IV PRN (08:50)
[2017-03-04] MEDS ORDERED: K-DUR PO ONE (09:00)
[2017-03-04 09:11] LABS: Blastocytes % (Manual) 0 %
[2017-03-04 09:12] LABS: Diff Status Complete; Platelet Estimate Consistent w Auto
[2017-03-04] MEDS: PROTONIX PO SCH (09:38)
[2017-03-04] MEDS: CORDARONE PO SCH ×2 (09:39→21:33)
[2017-03-04] MEDS: VITAMIN B-1 PO SCH (09:39)
[2017-03-04] MEDS: LASIX IV SCH (09:39)
[2017-03-04] MEDS: FOLVITE PO SCH (09:39)
--- NOTE | 2017-03-04 10:21 | Progress Note ---
Assessment and Plan Assessment: AFib with RVR AMS / ETOH withdrawal left rib fracture HTN ETOH abuse Cardiomyopathy - EF 30 - 35% Hypomagnesemia - repleted Hypokalemia Pulmonary HTN Plan: Echo reviewed - EF 30 - 35%, RV systolic function severely reduced, trace TR. Replete K+ to maintain serum K+ ~4. Repeat BMP in AM. Cont PO amio, 400mg BID. Cont Lopressor, 50mg Q6H. Patient not on anticoagulation secondary to noncompliance. Plan for ischemic evaluation (lexiscan MPI) once medically stabilized. The patient has been seen in conjunction with Dr. TAY Badillo who agrees with the assessment and plan of care. Subjective Date of service: 03/04/17 Principal diagnosis: afib Interval history: Pt resting in bed, NAD. Confused, agitated at times. Remains in AFib with HR 110s - 120s. BPs elevated. Objective Last Vital Signs Temp 99.2 F 03/04/17 08:00 Pulse 122 H 03/04/17 09:01 Resp 21 03/04/17 09:01 BP 162/96 03/04/17 09:01 Pulse Ox 94 03/04/17 09:01 - Physical Examination General: No Apparent Distress HEENT: Positive: PERRL, EOMI Neck: Positive: neck supple Cardiac: Positive: irregularly irregular, S1/S2, Tachycardia Lungs: Positive: Decreased Breath Sounds Neuro: Positive: Grossly Intact Abdomen: Positive: Active Bowel Sounds Skin: Positive: Clear Extremities: Present: normal. Absent: edema - Labs and Meds CBC 03/04/17 Range/Units 05:58 WBC 11.4 H (4.5-11.0) K/mm3 RBC 4.56 (3.65-5.03) M/mm3 Hgb 15.2 (11.8-15.2) gm/dl Hct 46.0 H (35.5-45.6) % Plt Count 170 (140-440) K/mm3 Comprehensive Metabolic Panel 03/04/17 Range/Units 06:04 Sodium 137 (137-145) mmol/L Potassium 3.3 L (3.6-5.0) mmol/L Chloride 92.2 L (98-107) mmol/L Carbon Dioxide 33 H (22-30) mmol/L BUN 16 (9-20) mg/dL Creatinine 0.6 L (0.8-1.5) mg/dL Glucose 133 H (75-100) mg/dL Calcium 8.7 (8.4-10.2) mg/dL - Imaging and Cardiology Echo: report reviewed (03/2015 EF 40-45% with mild mitral regurgitation and mild tricuspid regurgitation) - Telemetry EKG Rhythm: Atrial Fibrillation
--- NOTE | 2017-03-04 16:03 | Progress Note ---
Subjective Date of service: 03/04/17 Principal diagnosis: afib Interval history: Assessment and plan: Afib with RVR. Cont. amiodarone 400 mg twice a day. Continue Lopressor 50 mg every 6 hours. Cardiology following. Echocardiogram reveals EF 30-35% with right ventricular systolic function severely reduced. Trace TR. Patient is not on anticoagulation secondary to noncompliance. Alcohol abuse. Continue ciwa protocol with chlordiazepoxide, continue thiamine/ folic acid Encephalopathy. Etiology secondary to EtOH withdrawal. Still confused. Left rib fractures. Continue supportive care. Cardiomyopathy. Echocardiogram as above. Plans for ischemic evaluation per cardiology. Hypokalemia. Replete potassium to maintain approximately 4.0. Monitor serum electrolytes Hyperglycemia: Continue sliding scale coverage for now DVT prophylaxis. Continue sq lovenox Patient is groggy but arousable. Confused. Unable to get any history He is not in any distress Cardiology note pulmonary note reviewed Objective - Constitutional Vitals: Vital Signs - 12hr 03/04/17 03/04/17 03/04/17 04:00 05:00 06:00 Temperature Pulse Rate 111 H 115 H Respiratory 13 26 H 14 Rate Blood Pressure 149/99 174/127 O2 Sat by Pulse 98 93 92 Oximetry 03/04/17 03/04/17 03/04/17 07:00 08:00 08:25 Temperature 99.2 F Pulse Rate 105 H 111 H Respiratory 20 18 Rate Blood Pressure 154/96 167/102 O2 Sat by Pulse 100 99 Oximetry 03/04/17 03/04/17 03/04/17 08:49 09:01 10:01 Temperature Pulse Rate 116 H 122 H 105 H Respiratory 21 15 Rate Blood Pressure 173/110 162/96 166/98 O2 Sat by Pulse 94 96 Oximetry 03/04/17 03/04/17 03/04/17 11:01 12:00 13:00 Temperature 98.5 F Pulse Rate 111 H 98 H 108 H Respiratory 17 16 28 H Rate Blood Pressure 128/89 135/85 136/100 O2 Sat by Pulse 99 100 99 Oximetry 03/04/17 03/04/17 13:35 14:00 Temperature Pulse Rate 106 H 103 H Respiratory 19 Rate Blood Pressure 136/100 129/78 O2 Sat by Pulse 100 Oximetry General appearance: Present: no acute distress, obese - EENT Eyes: PERRL, EOM intact ENT: hearing intact - Neck Neck: supple, normal ROM - Respiratory Respiratory effort: normal Respiratory: bilateral: CTA, diminished, negative: rhonchi, wheezing - Cardiovascular Rhythm: irregularly irregular Heart Sounds: Present: S1 & S2 Extremity abnormal: edema (both legs) - Gastrointestinal General gastrointestinal: Present: soft, non-tender. Absent: hepatomegaly, splenomegaly - Integumentary Integumentary: clear - Neurologic Neurologic: moves all extremities - Labs CBC & Chem 7: 03/04/17 05:58 03/04/17 06:04 Labs: Abnormal lab results 03/03/17 03/04/17 03/04/17 Range/Units 15:46 05:58 06:04 WBC 11.4 H (4.5-11.0) K/mm3 Hct 46.0 H (35.5-45.6) % MCV 101 H (84-94) fl MCH 33 H (28-32) pg Seg Neuts % (Manual) 71.0 H (40.0-70.0) % Lymphocytes % (Manual) 13.0 L (13.4-35.0) % Monocytes % (Manual) 13.0 H (0.0-7.3) % Seg Neutrophils # Man 8.1 H (1.8-7.7) K/mm3 Monocytes # (Manual) 1.5 H (0.0-0.8) K/mm3 Potassium 3.3 L (3.6-5.0) mmol/L Chloride 92.2 L (98-107) mmol/L Carbon Dioxide 33 H (22-30) mmol/L Creatinine 0.6 L (0.8-1.5) mg/dL Glucose 133 H (75-100) mg/dL POC Glucose 131 H (70-105) 03/04/17 03/04/17 Range/Units 07:54 11:24 WBC (4.5-11.0) K/mm3 Hct (35.5-45.6) % MCV (84-94) fl MCH (28-32) pg Seg Neuts % (Manual) (40.0-70.0) % Lymphocytes % (Manual) (13.4-35.0) % Monocytes % (Manual) (0.0-7.3) % Seg Neutrophils # Man (1.8-7.7) K/mm3 Monocytes # (Manual) (0.0-0.8) K/mm3 Potassium (3.6-5.0) mmol/L Chloride (98-107) mmol/L Carbon Dioxide (22-30) mmol/L Creatinine (0.8-1.5) mg/dL Glucose (75-100) mg/dL POC Glucose 131 H 134 H (70-105)
[2017-03-04] MEDS: TYLENOL PO PRN (20:15)
[2017-03-04] MEDS: LOVENOX SUB-Q SCH (21:31)
[2017-03-05] MEDS: LOPRESSOR PO SCH ×4 (02:17→20:27)
[2017-03-05] MEDS: LIBRIUM PO SCH ×4 (04:16→22:03)
[2017-03-05] MEDS: ATIVAN IV PRN ×2 (04:18→08:45)
[2017-03-05] MEDS: ZOSYN/NS 4.5GM/100ML 4.5 GM/100 ML VIAL IV SCH ×2 (06:00→13:03)
[2017-03-05 07:24] LABS: Hematocrit 46.3 % (35.5-45.6); Hemoglobin 15.4 gm/dl (11.8-15.2); Mean Corpuscular HGB Conc 33 % (32-34); Mean Corpuscular Hemoglobin 33 pg (28-32); Mean Corpuscular Volume 100 fl (84-94); Platelet Count 189 K/mm3 (140-440); Red Blood Count 4.63 M/mm3 (3.65-5.03); Red Cell Distribution Width 13.7 % (13.2-15.2); White Blood Count 11.4 K/mm3 (4.5-11.0)
[2017-03-05 07:45] LABS: Anion Gap 17 mmol/L; BUN/Creatinine Ratio 21.66; Blood Urea Nitrogen 13 mg/dL (9-20); Carbon Dioxide 31 mmol/L (22-30); Chloride 95.2 mmol/L (98-107); Glucose 137 mg/dL (75-100); Potassium 3.3 mmol/L (3.6-5.0); Sodium 140 mmol/L (137-145)
[2017-03-05] MEDS: NOVOLOG SUB-Q SCH ×5 (08:00→22:02)
[2017-03-05 08:12] LABS: Basophils % (Manual) 0 % (0.0-1.8); Blastocytes % (Manual) 0 %; Eosinophils % (Manual) 0 % (0.0-4.3)
[2017-03-05 08:13] LABS: Anisocytosis 1+; Diff Status Complete; Stomatocytes Few; Toxic Vacuolation Few
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
[2017-03-05] MEDS: VITAMIN B-1 PO SCH (11:00)
[2017-03-05] MEDS: FOLVITE PO SCH (11:00)
[2017-03-05] MEDS: CORDARONE PO SCH ×2 (11:00→21:48)
[2017-03-05] MEDS: LASIX IV SCH (11:00)
[2017-03-05] MEDS: PROTONIX PO SCH (11:00)
--- NOTE | 2017-03-05 14:10 | Progress Note ---
Assessment and Plan Assessment and plan: Afib with rvr. Cont. amiodarone 400 mg twice a day. Continue Lopressor 50 mg every 6 hours. Continue digoxin when necessary. Cardiology following. Echocardiogram reveals EF 30-35% with right ventricular systolic function severely reduced. Trace TR. Patient is not on anticoagulation secondary to noncompliance. Alcohol abuse. Continue ciwa protocol, thiamine/folic acid Encephalopathy. Etiology secondary to EtOH withdrawal. Left rib fractures. Continue supportive care. Cardiomyopathy. Echocardiogram as above. Plans for ischemic evaluation per cardiology. Pulmonary hypertension. Hypokalemia. Replete potassium to maintain approximately 4.0. Hypomagnesemia. Repleted. DVT prophylaxis. Continue sq lovenox History Interval history: Patient still agitated at times. Patient still requiring restraints. Hospitalist Physical - Constitutional Vitals: Temp Pulse Resp BP Pulse Ox 99.2 F 117 H 25 H 131/95 95 03/05/17 12:00 03/05/17 13:01 03/05/17 13:01 03/05/17 13:01 03/05/17 13:01 General appearance: Present: no acute distress, obese, other (agitated) - EENT Eyes: Present: PERRL, EOM intact ENT: hearing intact, clear oral mucosa, dentition normal - Neck Neck: Present: supple, normal ROM - Respiratory Respiratory effort: normal Respiratory: bilateral: CTA - Cardiovascular Rhythm: regular Heart Sounds: Present: S1 & S2. Absent: gallop, rub - Extremities Extremities: no ischemia, No edema, Full ROM - Abdominal General gastrointestinal: soft, non-tender, non-distended, normal bowel sounds - Integumentary Integumentary: Present: clear, warm, dry - Neurologic Neurologic: CNII-XII intact, moves all extremities Results - Labs CBC & Chem 7: 03/05/17 07:03 03/05/17 07:03 Labs: Laboratory Last Values WBC 11.4 K/mm3 (4.5-11.0) H 03/05/17 07:03 RBC 4.63 M/mm3 (3.65-5.03) 03/05/17 07:03 Hgb 15.4 gm/dl (11.8-15.2) H 03/05/17 07:03 Hct 46.3 % (35.5-45.6) H 03/05/17 07:03 MCV 100 fl (84-94) H 03/05/17 07:03 MCH 33 pg (28-32) H 03/05/17 07:03 MCHC 33 % (32-34) 03/05/17 07:03 RDW 13.7 % (13.2-15.2) 03/05/17 07:03 Plt Count 189 K/mm3 (140-440) 03/05/17 07:03 Lymph % (Auto) 10.9 % (13.4-35.0) L 03/03/17 03:59 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 03/05/17 07:03 Eos % (Auto) 0.4 % (0.0-4.3) 03/03/17 03:59 Baso % (Auto) 0.3 % (0.0-1.8) 03/03/17 03:59 Lymph # 1.6 K/mm3 (1.2-5.4) 03/03/17 03:59 Bartholomew # 2.2 K/mm3 (0.0-0.8) H 03/03/17 03:59 Eos # 0.1 K/mm3 (0.0-0.4) 03/03/17 03:59 Baso # 0.0 K/mm3 (0.0-0.1) 03/03/17 03:59 Add Manual Diff Complete 03/05/17 07:03 Total Counted 100 03/05/17 07:03 Seg Neutrophils % 73.6 % (40.0-70.0) H 03/03/17 03:59 Seg Neuts % (Manual) 47.0 % (40.0-70.0) 03/05/17 07:03 Band Neutrophils % 11.0 % 03/05/17 07:03 Lymphocytes % (Manual) 22.0 % (13.4-35.0) 03/05/17 07:03 Reactive Lymphs % (Man) 0 % 03/05/17 07:03 Monocytes % (Manual) 20.0 % (0.0-7.3) H 03/05/17 07:03 Eosinophils % (Manual) 0 % (0.0-4.3) 03/05/17 07:03 Basophils % (Manual) 0 % (0.0-1.8) 03/05/17 07:03 Metamyelocytes % 0 % 03/05/17 07:03 Myelocytes % 0 % 03/05/17 07:03 Promyelocytes % 0 % 03/05/17 07:03 Blast Cells % 0 % 03/05/17 07:03 Nucleated RBC % Not Reportable 03/05/17 07:03 Seg Neutrophils # 10.8 K/mm3 (1.8-7.7) H 03/03/17 03:59 Seg Neutrophils # Man 5.4 K/mm3 (1.8-7.7) 03/05/17 07:03 Band Neutrophils # 1.3 K/mm3 03/05/17 07:03 Lymphocytes # (Manual) 2.5 K/mm3 (1.2-5.4) 03/05/17 07:03 Abs React Lymphs (Man) 0.0 K/mm3 03/05/17 07:03 Monocytes # (Manual) 2.3 K/mm3 (0.0-0.8) H 03/05/17 07:03 Eosinophils # (Manual) 0.0 K/mm3 (0.0-0.4) 03/05/17 07:03 Basophils # (Manual) 0.0 K/mm3 (0.0-0.1) 03/05/17 07:03 Metamyelocytes # 0.0 K/mm3 03/05/17 07:03 Myelocytes # 0.0 K/mm3 03/05/17 07:03 Promyelocytes # 0.0 K/mm3 03/05/17 07:03 Blast Cells # 0.0 K/mm3 03/05/17 07:03 WBC Morphology Not Reportable 03/05/17 07:03 Hypersegmented Neuts Not Reportable 03/05/17 07:03 Hyposegmented Neuts Not Reportable 03/05/17 07:03 Hypogranular Neuts Not Reportable 03/05/17 07:03 Smudge Cells Not Reportable 03/05/17 07:03 Toxic Granulation Not Reportable 03/05/17 07:03 Toxic Vacuolation Few 03/05/17 07:03 Dohle Bodies Not Reportable 03/05/17 07:03 Pelger-Huet Anomaly Not Reportable 03/05/17 07:03 Marco Rods Not Reportable 03/05/17 07:03 Platelet Estimate Appears normal 03/05/17 07:03 Clumped Platelets Not Reportable 03/05/17 07:03 Plt Clumps, EDTA Not Reportable 03/05/17 07:03 Large Platelets Not Reportable 03/05/17 07:03 Giant Platelets Not Reportable 03/05/17 07:03 Platelet Satelliting Not Reportable 03/05/17 07:03 Plt Morphology Comment Not Reportable 03/05/17 07:03 RBC Morphology Not Reportable 03/05/17 07:03 Dimorphic RBCs Not Reportable 03/05/17 07:03 Polychromasia Not Reportable 03/05/17 07:03 Hypochromasia Not Reportable 03/05/17 07:03 Poikilocytosis Not Reportable 03/05/17 07:03 Anisocytosis 1+ 03/05/17 07:03 Microcytosis Not Reportable 03/05/17 07:03 Macrocytosis Not Reportable 03/05/17 07:03 Spherocytes Not Reportable 03/05/17 07:03 Pappenheimer Bodies Not Reportable 03/05/17 07:03 Sickle Cells Not Reportable 03/05/17 07:03 Target Cells Not Reportable 03/05/17 07:03 Tear Drop Cells Not Reportable 03/05/17 07:03 Ovalocytes Not Reportable 03/05/17 07:03 Stomatocytes Few 03/05/17 07:03 Helmet Cells Not Reportable 03/05/17 07:03 Kelley-Furley Bodies Not Reportable 03/05/17 07:03 Miller Rings Not Reportable 03/05/17 07:03 Dave Cells Not Reportable 03/05/17 07:03 Bite Cells Not Reportable 03/05/17 07:03 Crenated Cell Not Reportable 03/05/17 07:03 Elliptocytes Not Reportable 03/05/17 07:03 Acanthocytes (Spur) Not Reportable 03/05/17 07:03 Rouleaux Not Reportable 03/05/17 07:03 Hemoglobin C Crystals Not Reportable 03/05/17 07:03 Schistocytes Not Reportable 03/05/17 07:03 Malaria parasites Not Reportable 03/05/17 07:03 Nishant Bodies Not Reportable 03/05/17 07:03 Hem Pathologist Commnt No 03/05/17 07:03 PT 14.3 Sec. (12.2-14.9) 02/26/17 23:40 INR 1.12 (0.87-1.13) 02/26/17 23:40 APTT 29.8 Sec. (24.2-36.6) 02/26/17 23:40 Sodium 140 mmol/L (137-145) 03/05/17 07:03 Potassium 3.3 mmol/L (3.6-5.0) L 03/05/17 07:03 Chloride 95.2 mmol/L (98-107) L 03/05/17 07:03 Carbon Dioxide 31 mmol/L (22-30) H 03/05/17 07:03 Anion Gap 17 mmol/L 03/05/17 07:03 BUN 13 mg/dL (9-20) 03/05/17 07:03 Creatinine 0.6 mg/dL (0.8-1.5) L 03/05/17 07:03 Estimated GFR > 60 ml/min 03/05/17 07:03 BUN/Creatinine Ratio 21.66 % 03/05/17 07:03 Glucose 137 mg/dL (75-100) H 03/05/17 07:03 POC Glucose 150 (70-105) H 03/05/17 12:15 Calcium 9.0 mg/dL (8.4-10.2) 03/05/17 07:03 Magnesium 2.30 mg/dL (1.7-2.3) 03/02/17 09:12 Total Bilirubin 0.70 mg/dL (0.1-1.2) 02/26/17 23:40 AST 70 units/L (5-40) H 02/26/17 23:40 ALT 36 units/L (7-56) 02/26/17 23:40 Alkaline Phosphatase 84 units/L (35-129) 02/26/17 23:40 Total Creatine Kinase 148 units/L (55-170) 02/27/17 13:08 CK-MB (CK-2) 4.7 ng/mL (0.0-4.0) H 02/27/17 13:08 CK-MB (CK-2) Rel Index 3.1 (0-4) 02/27/17 13:08 Troponin T < 0.010 ng/mL (0.00-0.029) 02/27/17 13:08 Total Protein 7.2 g/dL (6.3-8.2) 02/26/17 23:40 Albumin 4.2 g/dL (3.9-5) 02/26/17 23:40 Albumin/Globulin Ratio 1.4 % 02/26/17 23:40 TSH 1.480 mlU/mL (0.270-4.200) 02/26/17 23:40 Free T4 1.16 ng/dL (0.76-1.46) 02/26/17 23:40 Urine Color Yellow (Yellow) 03/03/17 10:38 Urine Turbidity Clear (Clear) 03/03/17 10:38 Urine pH 5.0 (5.0-7.0) 03/03/17 10:38 Ur Specific [place] 1.012 (1.003-1.030) 03/03/17 10:38 Urine Protein <15 mg/dl mg/dL (Negative) 03/03/17 10:38 Urine Glucose (UA) Neg mg/dL (Negative) 03/03/17 10:38 Urine Ketones Neg mg/dL (Negative) 03/03/17 10:38 Urine Blood Lg (Negative) 03/03/17 10:38 Urine Nitrite Neg (Negative) 03/03/17 10:38 Urine Bilirubin Neg (Negative) 03/03/17 10:38 Urine Urobilinogen < 2.0 mg/dL (<2.0) 03/03/17 10:38 Ur Leukocyte Esterase Tr (Negative) 03/03/17 10:38 Urine WBC (Auto) 5.0 /HPF (0.0-6.0) 03/03/17 10:38 Urine RBC (Auto) 51.0 /HPF (0.0-6.0) 03/03/17 10:38 Urine Mucus Few /HPF 03/03/17 10:38 Plasma/Serum Alcohol 0.24 gm% (0-0.07) H 02/26/17 23:40
[2017-03-05] MEDS ORDERED: K-DUR PO ONE (18:24)
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
[2017-03-05] MEDS: LOVENOX SUB-Q SCH (21:49)
[2017-03-06] MEDS: LOPRESSOR PO SCH ×4 (01:36→20:21)
[2017-03-06] MEDS: TYLENOL PO PRN ×2 (01:37→12:55)
[2017-03-06] MEDS: LIBRIUM PO SCH ×4 (05:00→23:38)
[2017-03-06 05:30] LABS: Anion Gap 17 mmol/L; BUN/Creatinine Ratio 21.66; Blood Urea Nitrogen 13 mg/dL (9-20); Calcium 9.1 mg/dL (8.4-10.2); Carbon Dioxide 31 mmol/L (22-30); Chloride 94.9 mmol/L (98-107); Glucose 125 mg/dL (75-100); Potassium 3.2 mmol/L (3.6-5.0); Sodium 140 mmol/L (137-145)
[2017-03-06 05:34] LABS: Hematocrit 47.1 % (35.5-45.6); Hemoglobin 15.7 gm/dl (11.8-15.2); Mean Corpuscular HGB Conc 33 % (32-34); Mean Corpuscular Hemoglobin 33 pg (28-32); Mean Corpuscular Volume 98 fl (84-94); Platelet Count 206 K/mm3 (140-440); Red Blood Count 4.79 M/mm3 (3.65-5.03); Red Cell Distribution Width 14.1 % (13.2-15.2); White Blood Count 11.8 K/mm3 (4.5-11.0)
[2017-03-06 06:56] LABS: Basophils % (Manual) 0 % (0.0-1.8); Blastocytes % (Manual) 0 %; Eosinophils % (Manual) 0 % (0.0-4.3)
[2017-03-06 06:57] LABS: Anisocytosis Few; Diff Status Complete
[2017-03-06 06:58] LABS: Toxic Vacuolation Few
[2017-03-06] MEDS: NOVOLOG SUB-Q SCH ×4 (08:00→22:30)
[2017-03-06] MEDS: CORDARONE PO SCH ×2 (10:11→21:19)
[2017-03-06] MEDS: VITAMIN B-1 PO SCH (10:12)
[2017-03-06] MEDS: FOLVITE PO SCH (10:12)
[2017-03-06] MEDS: PROTONIX PO SCH (10:12)
[2017-03-06] MEDS: LASIX IV SCH (10:12)
--- NOTE | 2017-03-06 10:58 | Progress Note ---
Assessment and Plan Assessment and plan: Afib with rvr. Cont. amiodarone 400 mg twice a day. Continue Lopressor 50 mg every 6 hours. Continue digoxin when necessary. Cardiology following. Echocardiogram reveals EF 30-35% with right ventricular systolic function severely reduced. Trace TR. Patient is not on anticoagulation secondary to noncompliance. Alcohol abuse. Continue ciwa protocol, thiamine/folic acid Encephalopathy. Etiology secondary to EtOH withdrawal. Left rib fractures. Continue supportive care. Cardiomyopathy. Echocardiogram as above. Plans for ischemic evaluation per cardiology. Pulmonary hypertension. Hypokalemia. Replete potassium to maintain approximately 4.0. Hypomagnesemia. Repleted. Fever. Etiology probably due to DTs. Cultures are negative, CXR clear, and WBC ~ 11K. Zosyn discontinued DVT prophylaxis. Continue sq lovenox History Interval history: Patient still agitated at times. Patient still requiring restraints. Hospitalist Physical - Constitutional Vitals: Temp Pulse Resp BP Pulse Ox 98.8 F 96 H 20 126/82 98 03/06/17 08:00 03/06/17 09:00 03/06/17 09:00 03/06/17 09:00 03/06/17 09:00 General appearance: Present: no acute distress, obese, other (agitated) - EENT Eyes: Present: PERRL, EOM intact ENT: hearing intact, clear oral mucosa, dentition normal - Neck Neck: Present: supple, normal ROM - Respiratory Respiratory effort: normal Respiratory: bilateral: CTA - Cardiovascular Rhythm: regular Heart Sounds: Present: S1 & S2. Absent: gallop, rub - Extremities Extremities: no ischemia, No edema, Full ROM - Abdominal General gastrointestinal: soft, non-tender, non-distended, normal bowel sounds - Integumentary Integumentary: Present: clear, warm, dry - Neurologic Neurologic: CNII-XII intact, moves all extremities Results - Labs CBC & Chem 7: 03/06/17 04:45 03/06/17 04:50 Labs: Laboratory Last Values WBC 11.8 K/mm3 (4.5-11.0) H 03/06/17 04:45 RBC 4.79 M/mm3 (3.65-5.03) 03/06/17 04:45 Hgb 15.7 gm/dl (11.8-15.2) H 03/06/17 04:45 Hct 47.1 % (35.5-45.6) H 03/06/17 04:45 MCV 98 fl (84-94) H 03/06/17 04:45 MCH 33 pg (28-32) H 03/06/17 04:45 MCHC 33 % (32-34) 03/06/17 04:45 RDW 14.1 % (13.2-15.2) 03/06/17 04:45 Plt Count 206 K/mm3 (140-440) 03/06/17 04:45 Lymph % (Auto) 10.9 % (13.4-35.0) L 03/03/17 03:59 [place] % (Auto) [employer] 03/06/17 04:45 Eos % (Auto) 0.4 % (0.0-4.3) 03/03/17 03:59 Baso % (Auto) 0.3 % (0.0-1.8) 03/03/17 03:59 Lymph # 1.6 K/mm3 (1.2-5.4) 03/03/17 03:59 [place] # 2.2 K/mm3 (0.0-0.8) H 03/03/17 03:59 Eos # 0.1 K/mm3 (0.0-0.4) 03/03/17 03:59 Baso # 0.0 K/mm3 (0.0-0.1) 03/03/17 03:59 Add Manual Diff Complete 03/06/17 04:45 Total Counted 100 03/06/17 04:45 Seg Neutrophils % 73.6 % (40.0-70.0) H 03/03/17 03:59 Seg Neuts % (Manual) 58.0 % (40.0-70.0) 03/06/17 04:45 Band Neutrophils % 12.0 % 03/06/17 04:45 Lymphocytes % (Manual) 13.0 % (13.4-35.0) L 03/06/17 04:45 Reactive Lymphs % (Man) 0 % 03/06/17 04:45 Monocytes % (Manual) 17.0 % (0.0-7.3) H 03/06/17 04:45 Eosinophils % (Manual) 0 % (0.0-4.3) 03/06/17 04:45 Basophils % (Manual) 0 % (0.0-1.8) 03/06/17 04:45 Metamyelocytes % 0 % 03/06/17 04:45 Myelocytes % 0 % 03/06/17 04:45 Promyelocytes % 0 % 03/06/17 04:45 Blast Cells % 0 % 03/06/17 04:45 Nucleated RBC % Not Reportable 03/06/17 04:45 Seg Neutrophils # 10.8 K/mm3 (1.8-7.7) H 03/03/17 03:59 Seg Neutrophils # Man 6.8 K/mm3 (1.8-7.7) 03/06/17 04:45 Band Neutrophils # 1.4 K/mm3 03/06/17 04:45 Lymphocytes # (Manual) 1.5 K/mm3 (1.2-5.4) 03/06/17 04:45 Abs React Lymphs (Man) 0.0 K/mm3 03/06/17 04:45 Monocytes # (Manual) 2.0 K/mm3 (0.0-0.8) H 03/06/17 04:45 Eosinophils # (Manual) 0.0 K/mm3 (0.0-0.4) 03/06/17 04:45 Basophils # (Manual) 0.0 K/mm3 (0.0-0.1) 03/06/17 04:45 Metamyelocytes # 0.0 K/mm3 03/06/17 04:45 Myelocytes # 0.0 K/mm3 03/06/17 04:45 Promyelocytes # 0.0 K/mm3 03/06/17 04:45 Blast Cells # 0.0 K/mm3 03/06/17 04:45 WBC Morphology Not Reportable 03/06/17 04:45 Hypersegmented Neuts Not Reportable 03/06/17 04:45 Hyposegmented Neuts Not Reportable 03/06/17 04:45 Hypogranular Neuts Not Reportable 03/06/17 04:45 Smudge Cells Not Reportable 03/06/17 04:45 Toxic Granulation Not Reportable 03/06/17 04:45 Toxic Vacuolation Few 03/06/17 04:45 Dohle Bodies Not Reportable 03/06/17 04:45 Pelger-Huet Anomaly Not Reportable 03/06/17 04:45 Marco Rods Not Reportable 03/06/17 04:45 Platelet Estimate Appears normal 03/06/17 04:45 Clumped Platelets Not Reportable 03/06/17 04:45 Plt Clumps, EDTA Not Reportable 03/06/17 04:45 Large Platelets Not Reportable 03/06/17 04:45 Giant Platelets Not Reportable 03/06/17 04:45 Platelet Satelliting Not Reportable 03/06/17 04:45 Plt Morphology Comment Not Reportable 03/06/17 04:45 RBC Morphology Not Reportable 03/06/17 04:45 Dimorphic RBCs Not Reportable 03/06/17 04:45 Polychromasia Not Reportable 03/06/17 04:45 Hypochromasia Not Reportable 03/06/17 04:45 Poikilocytosis Not Reportable 03/06/17 04:45 Anisocytosis Few 03/06/17 04:45 Microcytosis Not Reportable 03/06/17 04:45 Macrocytosis Not Reportable 03/06/17 04:45 Spherocytes Not Reportable 03/06/17 04:45 Pappenheimer Bodies Not Reportable 03/06/17 04:45 Sickle Cells Not Reportable 03/06/17 04:45 Target Cells Not Reportable 03/06/17 04:45 Tear Drop Cells Not Reportable 03/06/17 04:45 Ovalocytes Not Reportable 03/06/17 04:45 Stomatocytes Few 03/05/17 07:03 Helmet Cells Not Reportable 03/06/17 04:45 Kelley-Entiat Bodies Not Reportable 03/06/17 04:45 [place] Rings Not Reportable 03/06/17 04:45 Dave Cells Not Reportable 03/06/17 04:45 Bite Cells Not Reportable 03/06/17 04:45 Crenated Cell Not Reportable 03/06/17 04:45 Elliptocytes Not Reportable 03/06/17 04:45 Acanthocytes (Spur) Not Reportable 03/06/17 04:45 Rouleaux Not Reportable 03/06/17 04:45 Hemoglobin C Crystals Not Reportable 03/06/17 04:45 Schistocytes Not Reportable 03/06/17 04:45 Malaria parasites Not Reportable 03/06/17 04:45 Nishant Bodies Not Reportable 03/06/17 04:45 Hem Pathologist Commnt No 03/06/17 04:45 PT 14.3 Sec. (12.2-14.9) 02/26/17 23:40 INR 1.12 (0.87-1.13) 02/26/17 23:40 APTT 29.8 Sec. (24.2-36.6) 02/26/17 23:40 Sodium 140 mmol/L (137-145) 03/06/17 04:50 Potassium 3.2 mmol/L (3.6-5.0) L 03/06/17 04:50 Chloride 94.9 mmol/L (98-107) L 03/06/17 04:50 Carbon Dioxide 31 mmol/L (22-30) H 03/06/17 04:50 Anion Gap 17 mmol/L 03/06/17 04:50 BUN 13 mg/dL (9-20) 03/06/17 04:50 Creatinine 0.6 mg/dL (0.8-1.5) L 03/06/17 04:50 Estimated GFR > 60 ml/min 03/06/17 04:50 BUN/Creatinine Ratio 21.66 % 03/06/17 04:50 Glucose 125 mg/dL (75-100) H 03/06/17 04:50 POC Glucose 97 (70-105) 03/06/17 08:01 Calcium 9.1 mg/dL (8.4-10.2) 03/06/17 04:50 Phosphorus 4.60 mg/dL (2.5-4.5) H 03/06/17 04:50 Magnesium 1.80 mg/dL (1.7-2.3) 03/06/17 04:50 Total Bilirubin 0.70 mg/dL (0.1-1.2) 02/26/17 23:40 AST 70 units/L (5-40) H 02/26/17 23:40 ALT 36 units/L (7-56) 02/26/17 23:40 Alkaline Phosphatase 84 units/L (35-129) 02/26/17 23:40 Total Creatine Kinase 148 units/L (55-170) 02/27/17 13:08 CK-MB (CK-2) 4.7 ng/mL (0.0-4.0) H 02/27/17 13:08 CK-MB (CK-2) Rel Index 3.1 (0-4) 02/27/17 13:08 Troponin T < 0.010 ng/mL (0.00-0.029) 02/27/17 13:08 Total Protein 7.2 g/dL (6.3-8.2) 02/26/17 23:40 Albumin 4.2 g/dL (3.9-5) 02/26/17 23:40 Albumin/Globulin Ratio 1.4 % 02/26/17 23:40 TSH 1.480 mlU/mL (0.270-4.200) 02/26/17 23:40 Free T4 1.16 ng/dL (0.76-1.46) 02/26/17 23:40 Urine Color Yellow (Yellow) 03/03/17 10:38 Urine Turbidity Clear (Clear) 03/03/17 10:38 Urine pH 5.0 (5.0-7.0) 03/03/17 10:38 Ur Specific [place] 1.012 (1.003-1.030) 03/03/17 10:38 Urine Protein <15 mg/dl mg/dL (Negative) 03/03/17 10:38 Urine Glucose (UA) Neg mg/dL (Negative) 03/03/17 10:38 Urine Ketones Neg mg/dL (Negative) 03/03/17 10:38 Urine Blood Lg (Negative) 03/03/17 10:38 Urine Nitrite Neg (Negative) 03/03/17 10:38 Urine Bilirubin Neg (Negative) 03/03/17 10:38 Urine Urobilinogen < 2.0 mg/dL (<2.0) 03/03/17 10:38 Ur Leukocyte Esterase Tr (Negative) 03/03/17 10:38 Urine WBC (Auto) 5.0 /HPF (0.0-6.0) 03/03/17 10:38 Urine RBC (Auto) 51.0 /HPF (0.0-6.0) 03/03/17 10:38 Urine Mucus Few /HPF 03/03/17 10:38 Plasma/Serum Alcohol 0.24 gm% (0-0.07) H 02/26/17 23:40
--- NOTE | 2017-03-06 12:00 | Progress Note ---
Assessment and Plan 51yo wm: AFib with cvr AMS / ETOH withdrawal left rib fracture HTN ETOH abuse Cardiomyopathy - EF 30 - 35% Hypomagnesemia - repleted Hypokalemia Pulmonary HTN Plan: Cont PO amio, 400mg BID. Cont Lopressor, 50mg Q6H. Patient not on anticoagulation secondary to noncompliance. Given current mental status would defer ischemic work up. Subjective Date of service: 03/06/17 Principal diagnosis: afib Interval history: no changes overnight Objective Vital Signs Temp Pulse Pulse Resp Resp BP Pulse Ox 03/06/17 09:00 96 H 20 126/82 98 03/06/17 08:00 98.8 F 93 H 16 132/83 99 03/06/17 07:48 100 03/06/17 07:00 88 18 124/87 99 03/06/17 06:00 89 15 121/79 99 03/06/17 05:00 91 H 18 122/82 98 03/06/17 04:00 93 H 93 H 15 126/90 98 03/06/17 03:32 100.4 F H 03/06/17 03:01 100 H 20 122/86 99 03/06/17 02:00 114 H 25 H 146/94 99 03/06/17 01:37 30 H 03/06/17 01:36 115 H 153/110 03/06/17 01:00 127 H 34 H 157/103 97 03/06/17 00:01 112 H 31 H 138/105 96 03/06/17 00:00 101.1 F H 112 H 31 H 96 03/05/17 23:01 108 H 28 H 147/102 97 03/05/17 22:00 112 H 29 H 26 H 138/103 98 03/05/17 21:00 95 H 27 H 141/106 99 03/05/17 20:27 102 H 132/93 03/05/17 20:05 97 03/05/17 20:00 99.2 F 107 H 107 H 26 H 132/93 97 03/05/17 19:13 102 H 26 H 123/102 96 03/05/17 19:00 101 H 27 H 123/102 97 03/05/17 18:00 115 H 29 H 135/102 96 03/05/17 17:00 100 H 21 128/93 95 03/05/17 16:00 100.9 F H 118 H 112 H 30 H 133/92 96 03/05/17 15:01 110 H 28 H 142/118 97 03/05/17 14:01 107 H 36 H 142/118 98 03/05/17 13:01 117 H 25 H 131/95 95 03/05/17 13:00 130 H 168/86 03/05/17 12:01 129 H 43 H 167/101 94 03/05/17 12:00 99.2 F 125 H 30 H 95 - Physical Examination General: No Apparent Distress HEENT: Positive: PERRL, EOMI Neck: Positive: neck supple Neuro: Positive: Grossly Intact Abdomen: Positive: Active Bowel Sounds Skin: Positive: Clear Extremities: Present: normal. Absent: edema - Labs and Meds CBC 03/06/17 Range/Units 04:45 WBC 11.8 H (4.5-11.0) K/mm3 RBC 4.79 (3.65-5.03) M/mm3 Hgb 15.7 H (11.8-15.2) gm/dl Hct 47.1 H (35.5-45.6) % Plt Count 206 (140-440) K/mm3 Comprehensive Metabolic Panel 03/06/17 Range/Units 04:50 Sodium 140 (137-145) mmol/L Potassium 3.2 L (3.6-5.0) mmol/L Chloride 94.9 L (98-107) mmol/L Carbon Dioxide 31 H (22-30) mmol/L BUN 13 (9-20) mg/dL Creatinine 0.6 L (0.8-1.5) mg/dL Glucose 125 H (75-100) mg/dL Calcium 9.1 (8.4-10.2) mg/dL - Imaging and Cardiology Echo: report reviewed (03/2015 EF 40-45% with mild mitral regurgitation and mild tricuspid regurgitation)
[2017-03-06] MEDS ORDERED: K-DUR PO ONE (18:20)
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
[2017-03-06] MEDS: LOVENOX SUB-Q SCH (21:19)
[2017-03-07] MEDS: ATIVAN IV PRN ×5 (01:25→23:10)
[2017-03-07] MEDS: TYLENOL PO PRN ×2 (01:26→16:33)
[2017-03-07] MEDS: LOPRESSOR PO SCH ×4 (01:26→21:25)
[2017-03-07] MEDS: LIBRIUM PO SCH ×4 (04:14→23:05)
[2017-03-07 05:23] LABS: Basophils % (Auto) 0.7 % (0.0-1.8); Eosinophils % (Auto) 1.7 % (0.0-4.3); Hematocrit 44.2 % (35.5-45.6); Hemoglobin 15.2 gm/dl (11.8-15.2); Mean Corpuscular HGB Conc 34 % (32-34); Mean Corpuscular Hemoglobin 34 pg (28-32); Mean Corpuscular Volume 99 fl (84-94); Platelet Count 221 K/mm3 (140-440); Red Blood Count 4.48 M/mm3 (3.65-5.03); Red Cell Distribution Width 13.7 % (13.2-15.2); White Blood Count 11.3 K/mm3 (4.5-11.0)
[2017-03-07 05:38] LABS: Anion Gap 18 mmol/L; BUN/Creatinine Ratio 21.66; Blood Urea Nitrogen 13 mg/dL (9-20); Calcium 8.6 mg/dL (8.4-10.2); Carbon Dioxide 29 mmol/L (22-30); Chloride 95.1 mmol/L (98-107); Glucose 129 mg/dL (75-100); Potassium 3.4 mmol/L (3.6-5.0); Sodium 139 mmol/L (137-145)
[2017-03-07] MEDS: NOVOLOG SUB-Q SCH ×4 (08:00→21:29)
[2017-03-07] MEDS ORDERED: K-DUR PO ONE (09:00)
[2017-03-07] MEDS: LASIX IV SCH (09:09)
[2017-03-07] MEDS: FOLVITE PO SCH (09:09)
[2017-03-07] MEDS: PROTONIX PO SCH (09:09)
[2017-03-07] MEDS: VITAMIN B-1 PO SCH (09:10)
[2017-03-07] MEDS: CORDARONE PO SCH ×2 (10:00→21:25)
--- NOTE | 2017-03-07 10:11 | Progress Note ---
Assessment and Plan 51 y/o male, noncompliant, with systolic heart failure, admitted with afib with RVR, and possible ETOH abuse 1. CIWA down to 8, stable for floor 2. Wean FiO2 to off. 3. lasix therapy 4. should be stable for transfer. Our group will sign off once out of unit. Subjective Date of service: 03/07/17 Principal diagnosis: afib Interval history: No acute events. CIWA down to 8 Objective - Constitutional Vitals: Vital Signs - 12hr 03/06/17 03/06/17 03/06/17 22:18 23:01 23:27 Temperature Pulse Rate 109 H 104 H Pulse Rate [ From Monitor] Respiratory 30 H 22 Rate Respiratory Rate [Right Wrist] Blood Pressure 139/91 148/90 O2 Sat by Pulse 97 96 99 Oximetry 03/06/17 03/06/17 03/06/17 23:30 23:47 23:48 Temperature 100.1 F H Pulse Rate 109 H Pulse Rate [ 104 H From Monitor] Respiratory 30 H Rate Respiratory 20 Rate [Right Wrist] Blood Pressure O2 Sat by Pulse 99 Oximetry 03/07/17 03/07/17 03/07/17 00:00 01:00 01:26 Temperature Pulse Rate 100 H 103 H 94 H Pulse Rate [ From Monitor] Respiratory 24 22 23 Rate Respiratory Rate [Right Wrist] Blood Pressure 133/94 128/88 128/88 O2 Sat by Pulse 98 98 Oximetry 03/07/17 03/07/17 03/07/17 02:01 03:00 04:00 Temperature 99.9 F H Pulse Rate 87 95 H Pulse Rate [ From Monitor] Respiratory 24 18 Rate Respiratory Rate [Right Wrist] Blood Pressure 140/77 128/98 O2 Sat by Pulse 99 94 Oximetry 03/07/17 03/07/17 03/07/17 04:01 04:26 05:00 Temperature Pulse Rate 92 H 93 H Pulse Rate [ 93 H From Monitor] Respiratory 20 21 28 H Rate Respiratory Rate [Right Wrist] Blood Pressure 128/98 129/92 O2 Sat by Pulse 98 99 99 Oximetry 03/07/17 03/07/17 03/07/17 06:01 07:00 08:00 Temperature 99.2 F Pulse Rate 87 89 85 Pulse Rate [ From Monitor] Respiratory 20 17 12 Rate Respiratory Rate [Right Wrist] Blood Pressure 114/64 120/87 126/81 O2 Sat by Pulse 98 99 92 Oximetry 03/07/17 03/07/17 08:39 08:45 Temperature Pulse Rate 101 H Pulse Rate [ From Monitor] Respiratory Rate Respiratory Rate [Right Wrist] Blood Pressure 146/104 O2 Sat by Pulse 98 Oximetry General appearance: Present: no acute distress - EENT Eyes: PERRL, EOM intact ENT: hearing intact - Respiratory Respiratory: bilateral: CTA - Breasts Breasts: deferred - Cardiovascular Rhythm: regular Heart Sounds: Present: S1 & S2 Extremities: no ischemia - Gastrointestinal General gastrointestinal: Present: soft, non-tender, normal bowel sounds Rectal Exam: deferred - Genitourinary Male genitourinary: deferred - Labs CBC & Chem 7: 03/07/17 04:37 03/07/17 04:30 Labs: Abnormal lab results 03/06/17 03/06/17 03/06/17 Range/Units 11:50 15:43 22:07 WBC (4.5-11.0) K/mm3 MCV (84-94) fl MCH (28-32) pg [place] % (Auto) (0.0-7.3) % [place] # (0.0-0.8) K/mm3 Potassium (3.6-5.0) mmol/L Chloride (98-107) mmol/L Creatinine (0.8-1.5) mg/dL Glucose (75-100) mg/dL POC Glucose 124 H 121 H 109 H (70-105) 03/07/17 03/07/17 Range/Units 04:30 04:37 WBC 11.3 H (4.5-11.0) K/mm3 MCV 99 H (84-94) fl MCH 34 H (28-32) pg [place] % (Auto) 14.6 H (0.0-7.3) % [place] # 1.6 H (0.0-0.8) K/mm3 Potassium 3.4 L (3.6-5.0) mmol/L Chloride 95.1 L (98-107) mmol/L Creatinine 0.6 L (0.8-1.5) mg/dL Glucose 129 H (75-100) mg/dL POC Glucose (70-105)
--- NOTE | 2017-03-07 10:45 | Progress Note ---
Assessment and Plan Assessment: AFib with RVR -> now with CVR. AMS / ETOH withdrawal left rib fracture HTN ETOH abuse Cardiomyopathy - EF 30 - 35% Hypomagnesemia - repleted Hypokalemia Pulmonary HTN Plan: Decrease amio to 200mg PO BID. Repeat CMP in AM. Replete K+. Cont Lopressor, 50mg Q6H. Patient not on anticoagulation secondary to noncompliance. Plan for ischemic evaluation (lexiscan MPI) once mental status improves. The patient has been seen in conjunction with Dr. Almanzar who agrees with the assessment and plan of care. Subjective Date of service: 03/07/17 Principal diagnosis: afib Interval history: Pt resting in bed, NAD. Confused, agitated at times. In AFib with CVR. BPs stable. Objective Last Vital Signs Temp 99.2 F 03/07/17 08:00 Pulse 101 H 03/07/17 08:39 Resp 12 03/07/17 08:00 BP 146/104 03/07/17 08:39 Pulse Ox 98 03/07/17 08:45 - Physical Examination General: No Apparent Distress HEENT: Positive: PERRL, EOMI Neck: Positive: neck supple Cardiac: Positive: irregularly irregular, S1/S2 Lungs: Positive: Decreased Breath Sounds Neuro: Positive: Grossly Intact Abdomen: Positive: Active Bowel Sounds Skin: Positive: Clear Extremities: Present: normal. Absent: edema - Labs and Meds CBC 03/07/17 Range/Units 04:37 WBC 11.3 H (4.5-11.0) K/mm3 RBC 4.48 (3.65-5.03) M/mm3 Hgb 15.2 (11.8-15.2) gm/dl Hct 44.2 (35.5-45.6) % Plt Count 221 (140-440) K/mm3 Lymph # 1.8 (1.2-5.4) K/mm3 [place] # 1.6 H (0.0-0.8) K/mm3 Eos # 0.2 (0.0-0.4) K/mm3 Baso # 0.1 (0.0-0.1) K/mm3 Comprehensive Metabolic Panel 03/07/17 Range/Units 04:30 Sodium 139 (137-145) mmol/L Potassium 3.4 L (3.6-5.0) mmol/L Chloride 95.1 L (98-107) mmol/L Carbon Dioxide 29 (22-30) mmol/L BUN 13 (9-20) mg/dL Creatinine 0.6 L (0.8-1.5) mg/dL Glucose 129 H (75-100) mg/dL Calcium 8.6 (8.4-10.2) mg/dL - Imaging and Cardiology Echo: report reviewed (03/2015 EF 40-45% with mild mitral regurgitation and mild tricuspid regurgitation) - Telemetry EKG Rhythm: Atrial Fibrillation
--- NOTE | 2017-03-07 13:46 | Progress Note ---
Assessment and Plan Assessment and plan: Afib with rvr. Cont. amiodarone 400 mg twice a day. Continue Lopressor 50 mg every 6 hours. Continue digoxin when necessary. Cardiology following. Echocardiogram reveals EF 30-35% with right ventricular systolic function severely reduced. Trace TR. Patient is not on anticoagulation secondary to noncompliance. Alcohol abuse. Continue ciwa protocol, thiamine/folic acid Encephalopathy. Etiology secondary to EtOH withdrawal. Left rib fractures. Continue supportive care. Cardiomyopathy. Echocardiogram as above. Plans for ischemic evaluation per cardiology. Pulmonary hypertension. Hypokalemia. Replete potassium to maintain approximately 4.0. Hypomagnesemia. Repleted. Fever. Etiology probably due to DTs. Cultures are negative, CXR clear, and WBC ~ 11K. Zosyn discontinued DVT prophylaxis. Continue sq lovenox History Interval history: Patient still agitated at times. Patient still requiring restraints. Hospitalist Physical - Constitutional Vitals: Temp Pulse Resp BP Pulse Ox 99.2 F 101 H 12 146/104 98 03/07/17 12:00 03/07/17 08:39 03/07/17 08:00 03/07/17 08:39 03/07/17 08:45 General appearance: Present: no acute distress - EENT Eyes: Present: PERRL, EOM intact ENT: hearing intact, clear oral mucosa, dentition normal - Neck Neck: Present: supple, normal ROM - Respiratory Respiratory effort: normal Respiratory: bilateral: CTA - Cardiovascular Rhythm: regular Heart Sounds: Present: S1 & S2. Absent: gallop, rub - Extremities Extremities: no ischemia, No edema, Full ROM - Abdominal General gastrointestinal: soft, non-tender, non-distended, normal bowel sounds - Integumentary Integumentary: Present: clear, warm, dry - Neurologic Neurologic: CNII-XII intact, moves all extremities Results - Labs CBC & Chem 7: 03/07/17 04:37 03/07/17 04:30 Labs: Laboratory Last Values WBC 11.3 K/mm3 (4.5-11.0) H 03/07/17 04:37 RBC 4.48 M/mm3 (3.65-5.03) 03/07/17 04:37 Hgb 15.2 gm/dl (11.8-15.2) 03/07/17 04:37 Hct 44.2 % (35.5-45.6) 03/07/17 04:37 MCV 99 fl (84-94) H 03/07/17 04:37 MCH 34 pg (28-32) H 03/07/17 04:37 MCHC 34 % (32-34) 03/07/17 04:37 RDW 13.7 % (13.2-15.2) 03/07/17 04:37 Plt Count 221 K/mm3 (140-440) 03/07/17 04:37 Lymph % (Auto) 16.3 % (13.4-35.0) 03/07/17 04:37 [place] % (Auto) 14.6 % (0.0-7.3) H 03/07/17 04:37 Eos % (Auto) 1.7 % (0.0-4.3) 03/07/17 04:37 Baso % (Auto) 0.7 % (0.0-1.8) 03/07/17 04:37 Lymph # 1.8 K/mm3 (1.2-5.4) 03/07/17 04:37 [place] # 1.6 K/mm3 (0.0-0.8) H 03/07/17 04:37 Eos # 0.2 K/mm3 (0.0-0.4) 03/07/17 04:37 Baso # 0.1 K/mm3 (0.0-0.1) 03/07/17 04:37 Add Manual Diff Complete 03/06/17 04:45 Total Counted 100 03/06/17 04:45 Seg Neutrophils % 66.7 % (40.0-70.0) 03/07/17 04:37 Seg Neuts % (Manual) 58.0 % (40.0-70.0) 03/06/17 04:45 Band Neutrophils % 12.0 % 03/06/17 04:45 Lymphocytes % (Manual) 13.0 % (13.4-35.0) L 03/06/17 04:45 Reactive Lymphs % (Man) 0 % 03/06/17 04:45 Monocytes % (Manual) 17.0 % (0.0-7.3) H 03/06/17 04:45 Eosinophils % (Manual) 0 % (0.0-4.3) 03/06/17 04:45 Basophils % (Manual) 0 % (0.0-1.8) 03/06/17 04:45 Metamyelocytes % 0 % 03/06/17 04:45 Myelocytes % 0 % 03/06/17 04:45 Promyelocytes % 0 % 03/06/17 04:45 Blast Cells % 0 % 03/06/17 04:45 Nucleated RBC % Not Reportable 03/06/17 04:45 Seg Neutrophils # 7.5 K/mm3 (1.8-7.7) 03/07/17 04:37 Seg Neutrophils # Man 6.8 K/mm3 (1.8-7.7) 03/06/17 04:45 Band Neutrophils # 1.4 K/mm3 03/06/17 04:45 Lymphocytes # (Manual) 1.5 K/mm3 (1.2-5.4) 03/06/17 04:45 Abs React Lymphs (Man) 0.0 K/mm3 03/06/17 04:45 Monocytes # (Manual) 2.0 K/mm3 (0.0-0.8) H 03/06/17 04:45 Eosinophils # (Manual) 0.0 K/mm3 (0.0-0.4) 03/06/17 04:45 Basophils # (Manual) 0.0 K/mm3 (0.0-0.1) 03/06/17 04:45 Metamyelocytes # 0.0 K/mm3 03/06/17 04:45 Myelocytes # 0.0 K/mm3 03/06/17 04:45 Promyelocytes # 0.0 K/mm3 03/06/17 04:45 Blast Cells # 0.0 K/mm3 03/06/17 04:45 WBC Morphology Not Reportable 03/06/17 04:45 Hypersegmented Neuts Not Reportable 03/06/17 04:45 Hyposegmented Neuts Not Reportable 03/06/17 04:45 Hypogranular Neuts Not Reportable 03/06/17 04:45 Smudge Cells Not Reportable 03/06/17 04:45 Toxic Granulation Not Reportable 03/06/17 04:45 Toxic Vacuolation Few 03/06/17 04:45 Dohle Bodies Not Reportable 03/06/17 04:45 Pelger-Huet Anomaly Not Reportable 03/06/17 04:45 Marco Rods Not Reportable 03/06/17 04:45 Platelet Estimate Appears normal 03/06/17 04:45 Clumped Platelets Not Reportable 03/06/17 04:45 Plt Clumps, EDTA Not Reportable 03/06/17 04:45 Large Platelets Not Reportable 03/06/17 04:45 Giant Platelets Not Reportable 03/06/17 04:45 Platelet Satelliting Not Reportable 03/06/17 04:45 Plt Morphology Comment Not Reportable 03/06/17 04:45 RBC Morphology Not Reportable 03/06/17 04:45 Dimorphic RBCs Not Reportable 03/06/17 04:45 Polychromasia Not Reportable 03/06/17 04:45 Hypochromasia Not Reportable 03/06/17 04:45 Poikilocytosis Not Reportable 03/06/17 04:45 Anisocytosis Few 03/06/17 04:45 Microcytosis Not Reportable 03/06/17 04:45 Macrocytosis Not Reportable 03/06/17 04:45 Spherocytes Not Reportable 03/06/17 04:45 Pappenheimer Bodies Not Reportable 03/06/17 04:45 Sickle Cells Not Reportable 03/06/17 04:45 Target Cells Not Reportable 03/06/17 04:45 Tear Drop Cells Not Reportable 03/06/17 04:45 Ovalocytes Not Reportable 03/06/17 04:45 Stomatocytes Few 03/05/17 07:03 Helmet Cells Not Reportable 03/06/17 04:45 [place] Bodies Not Reportable 03/06/17 04:45 [place] Rings Not Reportable 03/06/17 04:45 [place] Cells Not Reportable 03/06/17 04:45 Bite Cells Not Reportable 03/06/17 04:45 Crenated Cell Not Reportable 03/06/17 04:45 Elliptocytes Not Reportable 03/06/17 04:45 Acanthocytes (Spur) Not Reportable 03/06/17 04:45 Rouleaux Not Reportable 03/06/17 04:45 Hemoglobin C Crystals Not Reportable 03/06/17 04:45 Schistocytes Not Reportable 03/06/17 04:45 Malaria parasites Not Reportable 03/06/17 04:45 Nishant Bodies Not Reportable 03/06/17 04:45 Hem Pathologist Commnt No 03/06/17 04:45 PT 14.3 Sec. (12.2-14.9) 02/26/17 23:40 INR 1.12 (0.87-1.13) 02/26/17 23:40 APTT 29.8 Sec. (24.2-36.6) 02/26/17 23:40 Sodium 139 mmol/L (137-145) 03/07/17 04:30 Potassium 3.4 mmol/L (3.6-5.0) L 03/07/17 04:30 Chloride 95.1 mmol/L (98-107) L 03/07/17 04:30 Carbon Dioxide 29 mmol/L (22-30) 03/07/17 04:30 Anion Gap 18 mmol/L 03/07/17 04:30 BUN 13 mg/dL (9-20) 03/07/17 04:30 Creatinine 0.6 mg/dL (0.8-1.5) L 03/07/17 04:30 Estimated GFR > 60 ml/min 03/07/17 04:30 BUN/Creatinine Ratio 21.66 % 03/07/17 04:30 Glucose 129 mg/dL (75-100) H 03/07/17 04:30 POC Glucose 109 (70-105) H 03/06/17 22:07 Calcium 8.6 mg/dL (8.4-10.2) 03/07/17 04:30 Phosphorus 4.60 mg/dL (2.5-4.5) H 03/06/17 04:50 Magnesium 1.80 mg/dL (1.7-2.3) 03/06/17 04:50 Total Bilirubin 0.70 mg/dL (0.1-1.2) 02/26/17 23:40 AST 70 units/L (5-40) H 02/26/17 23:40 ALT 36 units/L (7-56) 02/26/17 23:40 Alkaline Phosphatase 84 units/L (35-129) 02/26/17 23:40 Total Creatine Kinase 148 units/L (55-170) 02/27/17 13:08 CK-MB (CK-2) 4.7 ng/mL (0.0-4.0) H 02/27/17 13:08 CK-MB (CK-2) Rel Index 3.1 (0-4) 02/27/17 13:08 Troponin T < 0.010 ng/mL (0.00-0.029) 02/27/17 13:08 Total Protein 7.2 g/dL (6.3-8.2) 02/26/17 23:40 Albumin 4.2 g/dL (3.9-5) 02/26/17 23:40 Albumin/Globulin Ratio 1.4 % 02/26/17 23:40 TSH 1.480 mlU/mL (0.270-4.200) 02/26/17 23:40 Free T4 1.16 ng/dL (0.76-1.46) 02/26/17 23:40 Urine Color Yellow (Yellow) 03/03/17 10:38 Urine Turbidity Clear (Clear) 03/03/17 10:38 Urine pH 5.0 (5.0-7.0) 03/03/17 10:38 Ur Specific [place] 1.012 (1.003-1.030) 03/03/17 10:38 Urine Protein <15 mg/dl mg/dL (Negative) 03/03/17 10:38 Urine Glucose (UA) Neg mg/dL (Negative) 03/03/17 10:38 Urine Ketones Neg mg/dL (Negative) 03/03/17 10:38 Urine Blood Lg (Negative) 03/03/17 10:38 Urine Nitrite Neg (Negative) 03/03/17 10:38 Urine Bilirubin Neg (Negative) 03/03/17 10:38 Urine Urobilinogen < 2.0 mg/dL (<2.0) 03/03/17 10:38 Ur Leukocyte Esterase Tr (Negative) 03/03/17 10:38 Urine WBC (Auto) 5.0 /HPF (0.0-6.0) 03/03/17 10:38 Urine RBC (Auto) 51.0 /HPF (0.0-6.0) 03/03/17 10:38 Urine Mucus Few /HPF 03/03/17 10:38 Plasma/Serum Alcohol 0.24 gm% (0-0.07) H 02/26/17 23:40
[2017-03-07] MEDS: LOVENOX SUB-Q SCH (21:24)
[2017-03-08] MEDS: LOPRESSOR PO SCH ×4 (01:52→22:50)
[2017-03-08] MEDS: ATIVAN IV PRN ×5 (02:07→18:30)
[2017-03-08] MEDS: LIBRIUM PO SCH ×4 (05:40→23:28)
[2017-03-08 06:03] LABS: Basophils % (Auto) 0.7 % (0.0-1.8); Eosinophils % (Auto) 1.5 % (0.0-4.3); Hematocrit 49.3 % (35.5-45.6); Hemoglobin 16.4 gm/dl (11.8-15.2); Mean Corpuscular HGB Conc 33 % (32-34); Mean Corpuscular Hemoglobin 33 pg (28-32); Mean Corpuscular Volume 99 fl (84-94); Platelet Count 243 K/mm3 (140-440); Red Blood Count 4.99 M/mm3 (3.65-5.03); Red Cell Distribution Width 14.2 % (13.2-15.2); White Blood Count 10.1 K/mm3 (4.5-11.0)
[2017-03-08 06:25] LABS: Albumin 2.7 g/dL (3.9-5); Albumin/Globulin Ratio 0.6 %; Alkaline Phosphatase 76 units/L (35-129); Blood Urea Nitrogen 14 mg/dL (9-20); Calcium 9.1 mg/dL (8.4-10.2); Carbon Dioxide 25 mmol/L (22-30); Chloride 93.7 mmol/L (98-107); Glucose 127 mg/dL (75-100); Sodium 136 mmol/L (137-145); Total Protein 7.1 g/dL (6.3-8.2)
[2017-03-08 06:37] LABS: Alanine Aminotransferase 22 units/L (7-56); Anion Gap 22 mmol/L
--- NOTE | 2017-03-08 10:52 | Progress Note ---
Assessment and Plan Assessment and plan: Afib with rvr. Cont. amiodarone 400 mg twice a day. Continue Lopressor 50 mg every 6 hours. Continue digoxin when necessary. Cardiology following. Echocardiogram reveals EF 30-35% with right ventricular systolic function severely reduced. Trace TR. Patient is not on anticoagulation secondary to noncompliance. Alcohol abuse. Continue ciwa protocol, thiamine/folic acid. CIWA approx 17. Encephalopathy. Etiology secondary to EtOH withdrawal. Left rib fractures. Continue supportive care. Cardiomyopathy. Echocardiogram as above. Plans for ischemic evaluation per cardiology. Pulmonary hypertension. Hypokalemia. Replete potassium to maintain approximately 4.0. Hypomagnesemia. Repleted. Fever. Etiology probably due to DTs. Cultures are negative, CXR clear, and WBC ~ 11K. Zosyn discontinued DVT prophylaxis. Continue sq lovenox History Interval history: Patient still agitated at times. Patient still requiring restraints. Hospitalist Physical - Constitutional Vitals: Temp Pulse Resp BP Pulse Ox 98.8 F 65 18 163/77 91 03/08/17 10:26 03/08/17 10:26 03/08/17 10:26 03/08/17 10:26 03/08/17 10:26 General appearance: Present: no acute distress Results - Labs CBC & Chem 7: 03/08/17 04:58 03/08/17 04:58 Labs: Laboratory Last Values WBC 10.1 K/mm3 (4.5-11.0) 03/08/17 04:58 RBC 4.99 M/mm3 (3.65-5.03) 03/08/17 04:58 Hgb 16.4 gm/dl (11.8-15.2) H 03/08/17 04:58 Hct 49.3 % (35.5-45.6) H 03/08/17 04:58 MCV 99 fl (84-94) H 03/08/17 04:58 MCH 33 pg (28-32) H 03/08/17 04:58 MCHC 33 % (32-34) 03/08/17 04:58 RDW 14.2 % (13.2-15.2) 03/08/17 04:58 Plt Count 243 K/mm3 (140-440) 03/08/17 04:58 Lymph % (Auto) 14.3 % (13.4-35.0) 03/08/17 04:58 [place] % (Auto) 12.1 % (0.0-7.3) H 03/08/17 04:58 Eos % (Auto) 1.5 % (0.0-4.3) 03/08/17 04:58 Baso % (Auto) 0.7 % (0.0-1.8) 03/08/17 04:58 Lymph # 1.4 K/mm3 (1.2-5.4) 03/08/17 04:58 [place] # 1.2 K/mm3 (0.0-0.8) H 03/08/17 04:58 Eos # 0.2 K/mm3 (0.0-0.4) 03/08/17 04:58 Baso # 0.1 K/mm3 (0.0-0.1) 03/08/17 04:58 Add Manual Diff Complete 03/06/17 04:45 Total Counted 100 03/06/17 04:45 Seg Neutrophils % 71.4 % (40.0-70.0) H 03/08/17 04:58 Seg Neuts % (Manual) 58.0 % (40.0-70.0) 03/06/17 04:45 Band Neutrophils % 12.0 % 03/06/17 04:45 Lymphocytes % (Manual) 13.0 % (13.4-35.0) L 03/06/17 04:45 Reactive Lymphs % (Man) 0 % 03/06/17 04:45 Monocytes % (Manual) 17.0 % (0.0-7.3) H 03/06/17 04:45 Eosinophils % (Manual) 0 % (0.0-4.3) 03/06/17 04:45 Basophils % (Manual) 0 % (0.0-1.8) 03/06/17 04:45 Metamyelocytes % 0 % 03/06/17 04:45 Myelocytes % 0 % 03/06/17 04:45 Promyelocytes % 0 % 03/06/17 04:45 Blast Cells % 0 % 03/06/17 04:45 Nucleated RBC % Not Reportable 03/06/17 04:45 Seg Neutrophils # 7.2 K/mm3 (1.8-7.7) 03/08/17 04:58 Seg Neutrophils # Man 6.8 K/mm3 (1.8-7.7) 03/06/17 04:45 Band Neutrophils # 1.4 K/mm3 03/06/17 04:45 Lymphocytes # (Manual) 1.5 K/mm3 (1.2-5.4) 03/06/17 04:45 Abs React Lymphs (Man) 0.0 K/mm3 03/06/17 04:45 Monocytes # (Manual) 2.0 K/mm3 (0.0-0.8) H 03/06/17 04:45 Eosinophils # (Manual) 0.0 K/mm3 (0.0-0.4) 03/06/17 04:45 Basophils # (Manual) 0.0 K/mm3 (0.0-0.1) 03/06/17 04:45 Metamyelocytes # 0.0 K/mm3 03/06/17 04:45 Myelocytes # 0.0 K/mm3 03/06/17 04:45 Promyelocytes # 0.0 K/mm3 03/06/17 04:45 Blast Cells # 0.0 K/mm3 03/06/17 04:45 WBC Morphology Not Reportable 03/06/17 04:45 Hypersegmented Neuts Not Reportable 03/06/17 04:45 Hyposegmented Neuts Not Reportable 03/06/17 04:45 Hypogranular Neuts Not Reportable 03/06/17 04:45 Smudge Cells Not Reportable 03/06/17 04:45 Toxic Granulation Not Reportable 03/06/17 04:45 Toxic Vacuolation Few 03/06/17 04:45 Dohle Bodies Not Reportable 03/06/17 04:45 Pelger-Huet Anomaly Not Reportable 03/06/17 04:45 Marco Rods Not Reportable 03/06/17 04:45 Platelet Estimate Appears normal 03/06/17 04:45 Clumped Platelets Not Reportable 03/06/17 04:45 Plt Clumps, EDTA Not Reportable 03/06/17 04:45 Large Platelets Not Reportable 03/06/17 04:45 Giant Platelets Not Reportable 03/06/17 04:45 Platelet Satelliting Not Reportable 03/06/17 04:45 Plt Morphology Comment Not Reportable 03/06/17 04:45 RBC Morphology Not Reportable 03/06/17 04:45 Dimorphic RBCs Not Reportable 03/06/17 04:45 Polychromasia Not Reportable 03/06/17 04:45 Hypochromasia Not Reportable 03/06/17 04:45 Poikilocytosis Not Reportable 03/06/17 04:45 Anisocytosis Few 03/06/17 04:45 Microcytosis Not Reportable 03/06/17 04:45 Macrocytosis Not Reportable 03/06/17 04:45 Spherocytes Not Reportable 03/06/17 04:45 Pappenheimer Bodies Not Reportable 03/06/17 04:45 Sickle Cells Not Reportable 03/06/17 04:45 Target Cells Not Reportable 03/06/17 04:45 Tear Drop Cells Not Reportable 03/06/17 04:45 Ovalocytes Not Reportable 03/06/17 04:45 Stomatocytes Few 03/05/17 07:03 Helmet Cells Not Reportable 03/06/17 04:45 [place] Bodies Not Reportable 03/06/17 04:45 [place] Rings Not Reportable 03/06/17 04:45 [place] Cells Not Reportable 03/06/17 04:45 Bite Cells Not Reportable 03/06/17 04:45 Crenated Cell Not Reportable 03/06/17 04:45 Elliptocytes Not Reportable 03/06/17 04:45 Acanthocytes (Spur) Not Reportable 03/06/17 04:45 Rouleaux Not Reportable 03/06/17 04:45 Hemoglobin C Crystals Not Reportable 03/06/17 04:45 Schistocytes Not Reportable 03/06/17 04:45 Malaria parasites Not Reportable 03/06/17 04:45 Nishant Bodies Not Reportable 03/06/17 04:45 Hem Pathologist Commnt No 03/06/17 04:45 PT 14.3 Sec. (12.2-14.9) 02/26/17 23:40 INR 1.12 (0.87-1.13) 02/26/17 23:40 APTT 29.8 Sec. (24.2-36.6) 02/26/17 23:40 Sodium 136 mmol/L (137-145) L 03/08/17 04:58 Potassium 5.0 mmol/L (3.6-5.0) D 03/08/17 04:58 Chloride 93.7 mmol/L (98-107) L 03/08/17 04:58 Carbon Dioxide 25 mmol/L (22-30) 03/08/17 04:58 Anion Gap 22 mmol/L 03/08/17 04:58 BUN 14 mg/dL (9-20) 03/08/17 04:58 Creatinine 0.5 mg/dL (0.8-1.5) L 03/08/17 04:58 Estimated GFR > 60 ml/min 03/08/17 04:58 BUN/Creatinine Ratio 28.00 % 03/08/17 04:58 Glucose 127 mg/dL (75-100) H 03/08/17 04:58 POC Glucose 92 (70-105) 03/07/17 21:26 Calcium 9.1 mg/dL (8.4-10.2) 03/08/17 04:58 Phosphorus 4.60 mg/dL (2.5-4.5) H 03/06/17 04:50 Magnesium 1.80 mg/dL (1.7-2.3) 03/06/17 04:50 Total Bilirubin 1.00 mg/dL (0.1-1.2) 03/08/17 04:58 AST 50 units/L (5-40) H 03/08/17 04:58 ALT 22 units/L (7-56) 03/08/17 04:58 Alkaline Phosphatase 76 units/L (35-129) 03/08/17 04:58 Total Creatine Kinase 148 units/L (55-170) 02/27/17 13:08 CK-MB (CK-2) 4.7 ng/mL (0.0-4.0) H 02/27/17 13:08 CK-MB (CK-2) Rel Index 3.1 (0-4) 02/27/17 13:08 Troponin T < 0.010 ng/mL (0.00-0.029) 02/27/17 13:08 Total Protein 7.1 g/dL (6.3-8.2) 03/08/17 04:58 Albumin 2.7 g/dL (3.9-5) L 03/08/17 04:58 Albumin/Globulin Ratio 0.6 % 03/08/17 04:58 TSH 1.480 mlU/mL (0.270-4.200) 02/26/17 23:40 Free T4 1.16 ng/dL (0.76-1.46) 02/26/17 23:40 Urine Color Yellow (Yellow) 03/03/17 10:38 Urine Turbidity Clear (Clear) 03/03/17 10:38 Urine pH 5.0 (5.0-7.0) 03/03/17 10:38 Ur Specific [place] 1.012 (1.003-1.030) 03/03/17 10:38 Urine Protein <15 mg/dl mg/dL (Negative) 03/03/17 10:38 Urine Glucose (UA) Neg mg/dL (Negative) 03/03/17 10:38 Urine Ketones Neg mg/dL (Negative) 03/03/17 10:38 Urine Blood Lg (Negative) 03/03/17 10:38 Urine Nitrite Neg (Negative) 03/03/17 10:38 Urine Bilirubin Neg (Negative) 03/03/17 10:38 Urine Urobilinogen < 2.0 mg/dL (<2.0) 03/03/17 10:38 Ur Leukocyte Esterase Tr (Negative) 03/03/17 10:38 Urine WBC (Auto) 5.0 /HPF (0.0-6.0) 03/03/17 10:38 Urine RBC (Auto) 51.0 /HPF (0.0-6.0) 03/03/17 10:38 Urine Mucus Few /HPF 03/03/17 10:38 Plasma/Serum Alcohol 0.24 gm% (0-0.07) H 02/26/17 23:40
--- NOTE | 2017-03-08 11:33 | Progress Note ---
Assessment and Plan Assessment: AFib with RVR -> now with CVR. AMS / ETOH withdrawal left rib fracture HTN ETOH abuse Cardiomyopathy - EF 30 - 35% Hypomagnesemia - repleted Hypokalemia Pulmonary HTN Plan: Cont amio, 200mg PO BID. Cont Lopressor, 50mg Q6H. Patient not on anticoagulation secondary to noncompliance. Plan for ischemic evaluation (lexiscan MPI) once mental status improves. The patient has been seen in conjunction with Dr. Almanzar who agrees with the assessment and plan of care. Subjective Date of service: 03/08/17 Principal diagnosis: afib Interval history: Pt resting in bed, NAD. Confused, agitated at times. In AFib with CVR. BPs stable. Objective Last Vital Signs Temp 98.8 F 03/08/17 10:26 Pulse 65 03/08/17 10:26 Resp 18 03/08/17 10:26 BP 163/77 03/08/17 10:26 Pulse Ox 91 03/08/17 10:26 - Physical Examination General: No Apparent Distress HEENT: Positive: PERRL, EOMI Neck: Positive: neck supple Cardiac: Positive: irregularly irregular, S1/S2 Lungs: Positive: Decreased Breath Sounds Neuro: Positive: Grossly Intact Abdomen: Positive: Active Bowel Sounds Skin: Positive: Clear Extremities: Present: normal. Absent: edema - Labs and Meds Cardiac Enzymes 03/08/17 Range/Units 04:58 AST 50 H (5-40) units/L CBC 03/08/17 Range/Units 04:58 WBC 10.1 (4.5-11.0) K/mm3 RBC 4.99 (3.65-5.03) M/mm3 Hgb 16.4 H (11.8-15.2) gm/dl Hct 49.3 H (35.5-45.6) % Plt Count 243 (140-440) K/mm3 Lymph # 1.4 (1.2-5.4) K/mm3 Gilchrist # 1.2 H (0.0-0.8) K/mm3 Eos # 0.2 (0.0-0.4) K/mm3 Baso # 0.1 (0.0-0.1) K/mm3 Comprehensive Metabolic Panel 03/08/17 Range/Units 04:58 Sodium 136 L (137-145) mmol/L Potassium 5.0 D (3.6-5.0) mmol/L Chloride 93.7 L (98-107) mmol/L Carbon Dioxide 25 (22-30) mmol/L BUN 14 (9-20) mg/dL Creatinine 0.5 L (0.8-1.5) mg/dL Glucose 127 H (75-100) mg/dL Calcium 9.1 (8.4-10.2) mg/dL AST 50 H (5-40) units/L ALT 22 (7-56) units/L Alkaline Phosphatase 76 (35-129) units/L Total Protein 7.1 (6.3-8.2) g/dL Albumin 2.7 L (3.9-5) g/dL - Imaging and Cardiology Echo: report reviewed (03/2015 EF 40-45% with mild mitral regurgitation and mild tricuspid regurgitation) - Telemetry EKG Rhythm: Atrial Fibrillation
[2017-03-08] MEDS: PROTONIX PO SCH (11:57)
[2017-03-08] MEDS: VITAMIN B-1 PO SCH (11:57)
[2017-03-08] MEDS: FOLVITE PO SCH (11:57)
[2017-03-08] MEDS: CORDARONE PO SCH ×2 (11:57→23:28)
[2017-03-08] MEDS: NOVOLOG SUB-Q SCH ×4 (11:58→22:50)
[2017-03-08] MEDS: LASIX IV SCH (11:58)
--- NOTE | 2017-03-08 15:00 | Progress Note ---
Assessment and Plan 51 y/o male, noncompliant, with systolic heart failure, admitted with afib with RVR, and possible ETOH abuse 1. O2 weaned to off 2. Pulm status stable 3. Will sign off Subjective Date of service: 03/08/17 Principal diagnosis: afib Interval history: No acute events. On room air, breathing is stable. Objective Vital Signs - 12hr 03/08/17 03/08/17 03/08/17 04:29 08:50 10:00 Temperature 98.5 F Pulse Rate 89 Pulse Rate [ Left Radial] Pulse Rate [ 95 H Right Radial] Respiratory 22 Rate Respiratory 22 Rate [Right Wrist] Blood Pressure Blood Pressure 134/94 [Right Arm] O2 Sat by Pulse 99 94 Oximetry 03/08/17 03/08/17 03/08/17 10:26 12:33 12:57 Temperature 98.8 F 97.7 F Pulse Rate 115 H Pulse Rate [ 65 61 Left Radial] Pulse Rate [ Right Radial] Respiratory 18 18 Rate Respiratory Rate [Right Wrist] Blood Pressure 163/78 Blood Pressure 163/77 157/96 [Right Arm] O2 Sat by Pulse 91 98 Oximetry 03/08/17 14:28 Temperature Pulse Rate 100 H Pulse Rate [ Left Radial] Pulse Rate [ Right Radial] Respiratory Rate Respiratory Rate [Right Wrist] Blood Pressure 124/93 Blood Pressure [Right Arm] O2 Sat by Pulse Oximetry Constitutional: no acute distress, alert Eyes: non-icteric ENT: oropharynx moist Neck: supple Effort: normal Ascultation: Bilateral: clear, diminished breath sounds, rhonchi (occasional but overall clear bilaterally) Cardiovascular: irregular rhythm (ir/ir; no mrg) Gastrointestinal: normoactive bowel sounds, soft, non-tender, non-distended Integumentary: normal Extremities: no cyanosis, no edema, pink and warm Neurologic: normal mental status, non-focal exam, pupils equal and round Psychiatric: mood appropriate, affect normal CBC and BMP: 03/08/17 04:58 03/08/17 04:58 ABG, PT/INR, D-dimer: PT/INR, D-dimer PT 14.3 Sec. (12.2-14.9) 02/26/17 23:40 INR 1.12 (0.87-1.13) 02/26/17 23:40 Abnormal lab findings: Abnormal Labs 02/27/17 02/27/17 02/27/17 03:51 05:41 08:49 WBC Hgb Hct MCV MCH RDW Lymph % (Auto) Brantley % (Auto) Brantley # Seg Neutrophils % Seg Neuts % (Manual) Lymphocytes % (Manual) Monocytes % (Manual) Seg Neutrophils # Seg Neutrophils # Man Monocytes # (Manual) Sodium Potassium Chloride Carbon Dioxide BUN Creatinine Glucose POC Glucose 131 H 139 H Phosphorus Magnesium AST Total Creatine Kinase 171 H CK-MB (CK-2) 5.8 H Albumin 02/27/17 02/27/17 02/27/17 13:05 13:08 16:07 WBC Hgb Hct MCV MCH RDW Lymph % (Auto) [place] % (Auto) Br[place] # Seg Neutrophils % Seg Neuts % (Manual) Lymphocytes % (Manual) Monocytes % (Manual) Seg Neutrophils # Seg Neutrophils # Man Monocytes # (Manual) Sodium Potassium Chloride Carbon Dioxide BUN Creatinine Glucose POC Glucose 146 H 138 H Phosphorus Magnesium AST Total Creatine Kinase CK-MB (CK-2) 4.7 H Albumin 02/27/17 02/28/17 02/28/17 21:40 03:32 03:32 WBC Hgb 15.9 H Hct 47.6 H MCV 100 H MCH 34 H RDW 15.4 H Lymph % (Auto) Br[place]ley % (Auto) Br[place] # Seg Neutrophils % Seg Neuts % (Manual) Lymphocytes % (Manual) Monocytes % (Manual) Seg Neutrophils # Seg Neutrophils # Man Monocytes # (Manual) Sodium Potassium Chloride 95.0 L Carbon Dioxide BUN 8 L Creatinine 0.6 L Glucose 126 H POC Glucose 140 H Phosphorus Magnesium 1.60 L AST Total Creatine Kinase CK-MB (CK-2) Albumin 02/28/17 02/28/17 02/28/17 07:55 11:57 15:40 WBC Hgb Hct MCV MCH RDW Lymph % (Auto) Br[place]ley % (Auto) Br[place]ley # Seg Neutrophils % Seg Neuts % (Manual) Lymphocytes % (Manual) Monocytes % (Manual) Seg Neutrophils # Seg Neutrophils # Man Monocytes # (Manual) Sodium Potassium Chloride Carbon Dioxide BUN Creatinine Glucose POC Glucose 134 H 174 H 158 H Phosphorus Magnesium AST Total Creatine Kinase CK-MB (CK-2) Albumin 02/28/17 03/01/17 03/01/17 21:51 07:42 10:41 WBC Hgb Hct MCV MCH RDW Lymph % (Auto) Br[place] % (Auto) Br[place] # Seg Neutrophils % Seg Neuts % (Manual) Lymphocytes % (Manual) Monocytes % (Manual) Seg Neutrophils # Seg Neutrophils # Man Monocytes # (Manual) Sodium Potassium Chloride Carbon Dioxide BUN Creatinine Glucose POC Glucose 127 H 146 H 176 H Phosphorus Magnesium AST Total Creatine Kinase CK-MB (CK-2) Albumin 03/01/17 03/01/17 03/02/17 15:37 23:35 08:11 WBC Hgb Hct MCV MCH RDW Lymph % (Auto) Br[place] % (Auto) [place] # Seg Neutrophils % Seg Neuts % (Manual) Lymphocytes % (Manual) Monocytes % (Manual) Seg Neutrophils # Seg Neutrophils # Man Monocytes # (Manual) Sodium Potassium Chloride Carbon Dioxide BUN Creatinine Glucose POC Glucose 158 H 139 H 127 H Phosphorus Magnesium AST Total Creatine Kinase CK-MB (CK-2) Albumin 03/02/17 03/02/17 03/02/17 09:12 12:03 12:37 WBC 17.9 H Hgb 16.3 H Hct 49.3 H MCV 101 H MCH 33 H RDW Lymph % (Auto) 10.6 L Brantley % (Auto) 13.4 H Br[place]ley # 2.4 H Seg Neutrophils % 75.2 H Seg Neuts % (Manual) Lymphocytes % (Manual) Monocytes % (Manual) Seg Neutrophils # 13.5 H Seg Neutrophils # Man Monocytes # (Manual) Sodium 135 L Potassium Chloride 90.3 L Carbon Dioxide 32 H BUN Creatinine 0.6 L Glucose 124 H POC Glucose 145 H Phosphorus Magnesium AST Total Creatine Kinase CK-MB (CK-2) Albumin 03/02/17 03/02/17 03/03/17 16:09 22:41 03:59 WBC 14.7 H Hgb Hct MCV 100 H MCH 33 H RDW Lymph % (Auto) 10.9 L Br[place]ley % (Auto) 14.8 H Br[place]ley # 2.2 H Seg Neutrophils % 73.6 H Seg Neuts % (Manual) Lymphocytes % (Manual) Monocytes % (Manual) Seg Neutrophils # 10.8 H Seg Neutrophils # Man Monocytes # (Manual) Sodium Potassium Chloride Carbon Dioxide BUN Creatinine Glucose POC Glucose 141 H 127 H Phosphorus Magnesium AST Total Creatine Kinase CK-MB (CK-2) Albumin 03/03/17 03/03/17 03/03/17 04:07 09:19 11:33 WBC Hgb Hct MCV MCH RDW Lymph % (Auto) [place] % (Auto) Br[place]ley # Seg Neutrophils % Seg Neuts % (Manual) Lymphocytes % (Manual) Monocytes % (Manual) Seg Neutrophils # Seg Neutrophils # Man Monocytes # (Manual) Sodium Potassium 3.1 L D Chloride 91.1 L Carbon Dioxide BUN Creatinine 0.7 L Glucose 136 H POC Glucose 123 H 153 H Phosphorus Magnesium AST Total Creatine Kinase CK-MB (CK-2) Albumin 03/03/17 03/04/17 03/04/17 15:46 05:58 06:04 WBC 11.4 H Hgb Hct 46.0 H MCV 101 H MCH 33 H RDW Lymph % (Auto) Brantley % (Auto) Br[place]ley # Seg Neutrophils % Seg Neuts % (Manual) 71.0 H Lymphocytes % (Manual) 13.0 L Monocytes % (Manual) 13.0 H Seg Neutrophils # Seg Neutrophils # Man 8.1 H Monocytes # (Manual) 1.5 H Sodium Potassium 3.3 L Chloride 92.2 L Carbon Dioxide 33 H BUN Creatinine 0.6 L Glucose 133 H POC Glucose 131 H Phosphorus Magnesium AST Total Creatine Kinase CK-MB (CK-2) Albumin 03/04/17 03/04/17 03/04/17 07:54 11:24 16:00 WBC Hgb Hct MCV MCH RDW Lymph % (Auto) Br[place] % (Auto) Br[place] # Seg Neutrophils % Seg Neuts % (Manual) Lymphocytes % (Manual) Monocytes % (Manual) Seg Neutrophils # Seg Neutrophils # Man Monocytes # (Manual) Sodium Potassium Chloride Carbon Dioxide BUN Creatinine Glucose POC Glucose 131 H 134 H 116 H Phosphorus Magnesium AST Total Creatine Kinase CK-MB (CK-2) Albumin 03/05/17 03/05/17 03/05/17 00:39 07:03 07:03 WBC 11.4 H Hgb 15.4 H Hct 46.3 H MCV 100 H MCH 33 H RDW Lymph % (Auto) [place] % (Auto) [place] # Seg Neutrophils % Seg Neuts % (Manual) Lymphocytes % (Manual) Monocytes % (Manual) 20.0 H Seg Neutrophils # Seg Neutrophils # Man Monocytes # (Manual) 2.3 H Sodium Potassium 3.3 L Chloride 95.2 L Carbon Dioxide 31 H BUN Creatinine 0.6 L Glucose 137 H POC Glucose 116 H Phosphorus Magnesium AST Total Creatine Kinase CK-MB (CK-2) Albumin 03/05/17 03/05/17 03/05/17 08:05 12:15 16:07 WBC Hgb Hct MCV MCH RDW Lymph % (Auto) [place] % (Auto) [place] # Seg Neutrophils % Seg Neuts % (Manual) Lymphocytes % (Manual) Monocytes % (Manual) Seg Neutrophils # Seg Neutrophils # Man Monocytes # (Manual) Sodium Potassium Chloride Carbon Dioxide BUN Creatinine Glucose POC Glucose 134 H 150 H 113 H Phosphorus Magnesium AST Total Creatine Kinase CK-MB (CK-2) Albumin 03/06/17 03/06/17 03/06/17 04:45 04:50 11:50 WBC 11.8 H Hgb 15.7 H Hct 47.1 H MCV 98 H MCH 33 H RDW Lymph % (Auto) Br[place]ley % (Auto) [place] # Seg Neutrophils % Seg Neuts % (Manual) Lymphocytes % (Manual) 13.0 L Monocytes % (Manual) 17.0 H Seg Neutrophils # Seg Neutrophils # Man Monocytes # (Manual) 2.0 H Sodium Potassium 3.2 L Chloride 94.9 L Carbon Dioxide 31 H BUN Creatinine 0.6 L Glucose 125 H POC Glucose 124 H Phosphorus 4.60 H Magnesium AST Total Creatine Kinase CK-MB (CK-2) Albumin 03/06/17 03/06/17 03/07/17 15:43 22:07 04:30 WBC Hgb Hct MCV MCH RDW Lymph % (Auto) Br[place] % (Auto) [place] # Seg Neutrophils % Seg Neuts % (Manual) Lymphocytes % (Manual) Monocytes % (Manual) Seg Neutrophils # Seg Neutrophils # Man Monocytes # (Manual) Sodium Potassium 3.4 L Chloride 95.1 L Carbon Dioxide BUN Creatinine 0.6 L Glucose 129 H POC Glucose 121 H 109 H Phosphorus Magnesium AST Total Creatine Kinase CK-MB (CK-2) Albumin 03/07/17 03/07/17 03/07/17 04:37 12:02 15:03 WBC 11.3 H Hgb Hct MCV 99 H MCH 34 H RDW Lymph % (Auto) Br[place]ley % (Auto) 14.6 H [place]ley # 1.6 H Seg Neutrophils % Seg Neuts % (Manual) Lymphocytes % (Manual) Monocytes % (Manual) Seg Neutrophils # Seg Neutrophils # Man Monocytes # (Manual) Sodium Potassium Chloride Carbon Dioxide BUN Creatinine Glucose POC Glucose 126 H 108 H Phosphorus Magnesium AST Total Creatine Kinase CK-MB (CK-2) Albumin 03/08/17 03/08/17 04:58 04:58 WBC Hgb 16.4 H Hct 49.3 H MCV 99 H MCH 33 H RDW Lymph % (Auto) Br[place]ley % (Auto) 12.1 H Br[place]ley # 1.2 H Seg Neutrophils % 71.4 H Seg Neuts % (Manual) Lymphocytes % (Manual) Monocytes % (Manual) Seg Neutrophils # Seg Neutrophils # Man Monocytes # (Manual) Sodium 136 L Potassium Chloride 93.7 L Carbon Dioxide BUN Creatinine 0.5 L Glucose 127 H POC Glucose Phosphorus Magnesium AST 50 H Total Creatine Kinase CK-MB (CK-2) Albumin 2.7 L
[2017-03-08] MEDS: LOVENOX SUB-Q SCH (23:29)
[2017-03-09] MEDS: ATIVAN IV PRN ×2 (00:34→04:15)
[2017-03-09] MEDS: LOPRESSOR PO SCH ×4 (02:50→21:12)
[2017-03-09] MEDS: LIBRIUM PO SCH ×3 (05:45→17:47)
[2017-03-09 06:00] LABS: Eosinophils % (Auto) 1.9 % (0.0-4.3); Hematocrit 49.1 % (35.5-45.6); Hemoglobin 16.3 gm/dl (11.8-15.2); Mean Corpuscular HGB Conc 33 % (32-34); Mean Corpuscular Hemoglobin 33 pg (28-32); Mean Corpuscular Volume 98 fl (84-94); Platelet Count 262 K/mm3 (140-440); Red Blood Count 4.99 M/mm3 (3.65-5.03); Red Cell Distribution Width 14.2 % (13.2-15.2); White Blood Count 11.8 K/mm3 (4.5-11.0)
[2017-03-09 06:53] LABS: Anion Gap 20 mmol/L; BUN/Creatinine Ratio 22.85; Blood Urea Nitrogen 16 mg/dL (9-20); Calcium 9.4 mg/dL (8.4-10.2); Carbon Dioxide 28 mmol/L (22-30); Chloride 94.7 mmol/L (98-107); Glucose 115 mg/dL (75-100); Sodium 139 mmol/L (137-145)
[2017-03-09] MEDS: NOVOLOG SUB-Q SCH ×3 (07:30→17:37)
--- NOTE | 2017-03-09 10:06 | Progress Note ---
Assessment and Plan Assessment and plan: Afib with rvr. Cont. amiodarone 400 mg twice a day. Continue Lopressor 50 mg every 6 hours. Continue digoxin when necessary. Cardiology following. Echocardiogram reveals EF 30-35% with right ventricular systolic function severely reduced. Trace TR. Patient is not on anticoagulation secondary to noncompliance. Alcohol abuse. Continue ciwa protocol, thiamine/folic acid. CIWA approx 17. Encephalopathy. Etiology secondary to EtOH withdrawal. Left rib fractures. Continue supportive care. Cardiomyopathy. Echocardiogram as above. Plans for ischemic evaluation per cardiology. Pulmonary hypertension. Hypokalemia. Replete potassium to maintain approximately 4.0. Hypomagnesemia. Repleted. Fever. Resolved. Etiology was probably due to DTs. Cultures are negative, CXR clear, and WBC ~ 11K. Zosyn discontinued DVT prophylaxis. Continue sq lovenox History Interval history: Patient still agitated at times. Patient still requiring restraints. Hospitalist Physical - Constitutional Vitals: Temp Pulse Resp BP Pulse Ox 98.3 F 101 H 20 162/98 95 03/09/17 08:00 03/09/17 08:00 03/09/17 08:00 03/09/17 08:00 03/09/17 08:00 General appearance: Present: no acute distress - EENT Eyes: Present: PERRL, EOM intact ENT: hearing intact, clear oral mucosa, dentition normal - Neck Neck: Present: supple, normal ROM - Respiratory Respiratory effort: normal Respiratory: bilateral: CTA - Cardiovascular Rhythm: regular Heart Sounds: Present: S1 & S2. Absent: gallop, rub - Extremities Extremities: no ischemia, No edema, Full ROM - Abdominal General gastrointestinal: soft, non-tender, non-distended, normal bowel sounds - Integumentary Integumentary: Present: clear, warm, dry - Neurologic Neurologic: CNII-XII intact, moves all extremities Results - Labs CBC & Chem 7: 03/09/17 05:26 03/09/17 05:26 Labs: Laboratory Last Values WBC 11.8 K/mm3 (4.5-11.0) H 03/09/17 05:26 RBC 4.99 M/mm3 (3.65-5.03) 03/09/17 05:26 Hgb 16.3 gm/dl (11.8-15.2) H 03/09/17 05:26 Hct 49.1 % (35.5-45.6) H 03/09/17 05:26 MCV 98 fl (84-94) H 03/09/17 05:26 MCH 33 pg (28-32) H 03/09/17 05:26 MCHC 33 % (32-34) 03/09/17 05:26 RDW 14.2 % (13.2-15.2) 03/09/17 05:26 Plt Count 262 K/mm3 (140-440) 03/09/17 05:26 Lymph % (Auto) 14.5 % (13.4-35.0) 03/09/17 05:26 Stanley % (Auto) 10.8 % (0.0-7.3) H 03/09/17 05:26 Eos % (Auto) 1.9 % (0.0-4.3) 03/09/17 05:26 Baso % (Auto) 1.0 % (0.0-1.8) 03/09/17 05:26 Lymph # 1.7 K/mm3 (1.2-5.4) 03/09/17 05:26 Stanley # 1.3 K/mm3 (0.0-0.8) H 03/09/17 05:26 Eos # 0.2 K/mm3 (0.0-0.4) 03/09/17 05:26 Baso # 0.1 K/mm3 (0.0-0.1) 03/09/17 05:26 Add Manual Diff Complete 03/06/17 04:45 Total Counted 100 03/06/17 04:45 Seg Neutrophils % 71.8 % (40.0-70.0) H 03/09/17 05:26 Seg Neuts % (Manual) 58.0 % (40.0-70.0) 03/06/17 04:45 Band Neutrophils % 12.0 % 03/06/17 04:45 Lymphocytes % (Manual) 13.0 % (13.4-35.0) L 03/06/17 04:45 Reactive Lymphs % (Man) 0 % 03/06/17 04:45 Monocytes % (Manual) 17.0 % (0.0-7.3) H 03/06/17 04:45 Eosinophils % (Manual) 0 % (0.0-4.3) 03/06/17 04:45 Basophils % (Manual) 0 % (0.0-1.8) 03/06/17 04:45 Metamyelocytes % 0 % 03/06/17 04:45 Myelocytes % 0 % 03/06/17 04:45 Promyelocytes % 0 % 03/06/17 04:45 Blast Cells % 0 % 03/06/17 04:45 Nucleated RBC % Not Reportable 03/06/17 04:45 Seg Neutrophils # 8.4 K/mm3 (1.8-7.7) H 03/09/17 05:26 Seg Neutrophils # Man 6.8 K/mm3 (1.8-7.7) 03/06/17 04:45 Band Neutrophils # 1.4 K/mm3 03/06/17 04:45 Lymphocytes # (Manual) 1.5 K/mm3 (1.2-5.4) 03/06/17 04:45 Abs React Lymphs (Man) 0.0 K/mm3 03/06/17 04:45 Monocytes # (Manual) 2.0 K/mm3 (0.0-0.8) H 03/06/17 04:45 Eosinophils # (Manual) 0.0 K/mm3 (0.0-0.4) 03/06/17 04:45 Basophils # (Manual) 0.0 K/mm3 (0.0-0.1) 03/06/17 04:45 Metamyelocytes # 0.0 K/mm3 03/06/17 04:45 Myelocytes # 0.0 K/mm3 03/06/17 04:45 Promyelocytes # 0.0 K/mm3 03/06/17 04:45 Blast Cells # 0.0 K/mm3 03/06/17 04:45 WBC Morphology Not Reportable 03/06/17 04:45 Hypersegmented Neuts Not Reportable 03/06/17 04:45 Hyposegmented Neuts Not Reportable 03/06/17 04:45 Hypogranular Neuts Not Reportable 03/06/17 04:45 Smudge Cells Not Reportable 03/06/17 04:45 Toxic Granulation Not Reportable 03/06/17 04:45 Toxic Vacuolation Few 03/06/17 04:45 Dohle Bodies Not Reportable 03/06/17 04:45 Pelger-Huet Anomaly Not Reportable 03/06/17 04:45 Marco Rods Not Reportable 03/06/17 04:45 Platelet Estimate Appears normal 03/06/17 04:45 Clumped Platelets Not Reportable 03/06/17 04:45 Plt Clumps, EDTA Not Reportable 03/06/17 04:45 Large Platelets Not Reportable 03/06/17 04:45 Giant Platelets Not Reportable 03/06/17 04:45 Platelet Satelliting Not Reportable 03/06/17 04:45 Plt Morphology Comment Not Reportable 03/06/17 04:45 RBC Morphology Not Reportable 03/06/17 04:45 Dimorphic RBCs Not Reportable 03/06/17 04:45 Polychromasia Not Reportable 03/06/17 04:45 Hypochromasia Not Reportable 03/06/17 04:45 Poikilocytosis Not Reportable 03/06/17 04:45 Anisocytosis Few 03/06/17 04:45 Microcytosis Not Reportable 03/06/17 04:45 Macrocytosis Not Reportable 03/06/17 04:45 Spherocytes Not Reportable 03/06/17 04:45 Pappenheimer Bodies Not Reportable 03/06/17 04:45 Sickle Cells Not Reportable 03/06/17 04:45 Target Cells Not Reportable 03/06/17 04:45 Tear Drop Cells Not Reportable 03/06/17 04:45 Ovalocytes Not Reportable 03/06/17 04:45 Stomatocytes Few 03/05/17 07:03 Helmet Cells Not Reportable 03/06/17 04:45 Kelley-Hays Bodies Not Reportable 03/06/17 04:45 Standish Rings Not Reportable 03/06/17 04:45 Dave Cells Not Reportable 03/06/17 04:45 Bite Cells Not Reportable 03/06/17 04:45 Crenated Cell Not Reportable 03/06/17 04:45 Elliptocytes Not Reportable 03/06/17 04:45 Acanthocytes (Spur) Not Reportable 03/06/17 04:45 Rouleaux Not Reportable 03/06/17 04:45 Hemoglobin C Crystals Not Reportable 03/06/17 04:45 Schistocytes Not Reportable 03/06/17 04:45 Malaria parasites Not Reportable 03/06/17 04:45 Nishant Bodies Not Reportable 03/06/17 04:45 Hem Pathologist Commnt No 03/06/17 04:45 PT 14.3 Sec. (12.2-14.9) 02/26/17 23:40 INR 1.12 (0.87-1.13) 02/26/17 23:40 APTT 29.8 Sec. (24.2-36.6) 02/26/17 23:40 Sodium 139 mmol/L (137-145) 03/09/17 05:26 Potassium 4.0 mmol/L (3.6-5.0) 03/09/17 05:26 Chloride 94.7 mmol/L (98-107) L 03/09/17 05:26 Carbon Dioxide 28 mmol/L (22-30) 03/09/17 05:26 Anion Gap 20 mmol/L 03/09/17 05:26 BUN 16 mg/dL (9-20) 03/09/17 05:26 Creatinine 0.7 mg/dL (0.8-1.5) L 03/09/17 05:26 Estimated GFR > 60 ml/min 03/09/17 05:26 BUN/Creatinine Ratio 22.85 % 03/09/17 05:26 Glucose 115 mg/dL (75-100) H 03/09/17 05:26 POC Glucose 101 (70-105) 03/08/17 21:54 Calcium 9.4 mg/dL (8.4-10.2) 03/09/17 05:26 Phosphorus 4.60 mg/dL (2.5-4.5) H 03/06/17 04:50 Magnesium 1.80 mg/dL (1.7-2.3) 03/06/17 04:50 Total Bilirubin 1.00 mg/dL (0.1-1.2) 03/08/17 04:58 AST 50 units/L (5-40) H 03/08/17 04:58 ALT 22 units/L (7-56) 03/08/17 04:58 Alkaline Phosphatase 76 units/L (35-129) 03/08/17 04:58 Total Creatine Kinase 148 units/L (55-170) 02/27/17 13:08 CK-MB (CK-2) 4.7 ng/mL (0.0-4.0) H 02/27/17 13:08 CK-MB (CK-2) Rel Index 3.1 (0-4) 02/27/17 13:08 Troponin T < 0.010 ng/mL (0.00-0.029) 02/27/17 13:08 Total Protein 7.1 g/dL (6.3-8.2) 03/08/17 04:58 Albumin 2.7 g/dL (3.9-5) L 03/08/17 04:58 Albumin/Globulin Ratio 0.6 % 03/08/17 04:58 TSH 1.480 mlU/mL (0.270-4.200) 02/26/17 23:40 Free T4 1.16 ng/dL (0.76-1.46) 02/26/17 23:40 Urine Color Yellow (Yellow) 03/03/17 10:38 Urine Turbidity Clear (Clear) 03/03/17 10:38 Urine pH 5.0 (5.0-7.0) 03/03/17 10:38 Ur Specific [place] 1.012 (1.003-1.030) 03/03/17 10:38 Urine Protein <15 mg/dl mg/dL (Negative) 03/03/17 10:38 Urine Glucose (UA) Neg mg/dL (Negative) 03/03/17 10:38 Urine Ketones Neg mg/dL (Negative) 03/03/17 10:38 Urine Blood Lg (Negative) 03/03/17 10:38 Urine Nitrite Neg (Negative) 03/03/17 10:38 Urine Bilirubin Neg (Negative) 03/03/17 10:38 Urine Urobilinogen < 2.0 mg/dL (<2.0) 03/03/17 10:38 Ur Leukocyte Esterase Tr (Negative) 03/03/17 10:38 Urine WBC (Auto) 5.0 /HPF (0.0-6.0) 03/03/17 10:38 Urine RBC (Auto) 51.0 /HPF (0.0-6.0) 03/03/17 10:38 Urine Mucus Few /HPF 03/03/17 10:38 Plasma/Serum Alcohol 0.24 gm% (0-0.07) H 02/26/17 23:40
--- NOTE | 2017-03-09 12:41 | Progress Note ---
Assessment and Plan Assessment: AFib with RVR -> now with CVR. AMS / ETOH withdrawal left rib fracture HTN ETOH abuse Cardiomyopathy - EF 30 - 35% Hypomagnesemia - repleted Hypokalemia Pulmonary HTN Plan: Cont amio, 200mg PO BID. Cont Lopressor, 50mg Q6H. Convert to Toprol XL, 100mg daily, from tomorrow. Patient not on anticoagulation secondary to noncompliance and AMS. Plan for ischemic evaluation (lexiscan MPI) once mental status improves. The patient has been seen in conjunction with Dr. Almanzar who agrees with the assessment and plan of care. Subjective Date of service: 03/09/17 Principal diagnosis: afib Interval history: Pt resting in bed, NAD. Confused, agitated at times. In AFib with CVR. BPs stable. Objective Last Vital Signs Temp 98.3 F 03/09/17 08:00 Pulse 101 H 03/09/17 08:00 Resp 20 03/09/17 08:00 BP 162/98 03/09/17 08:00 Pulse Ox 95 03/09/17 08:00 - Physical Examination General: No Apparent Distress HEENT: Positive: PERRL, EOMI Neck: Positive: neck supple Cardiac: Positive: irregularly irregular, S1/S2 Lungs: Positive: clear to auscultation Neuro: Positive: Grossly Intact Abdomen: Positive: Active Bowel Sounds Skin: Positive: Clear Extremities: Present: normal. Absent: edema - Labs and Meds CBC 03/09/17 Range/Units 05:26 WBC 11.8 H (4.5-11.0) K/mm3 RBC 4.99 (3.65-5.03) M/mm3 Hgb 16.3 H (11.8-15.2) gm/dl Hct 49.1 H (35.5-45.6) % Plt Count 262 (140-440) K/mm3 Lymph # 1.7 (1.2-5.4) K/mm3 [place]comb # 1.3 H (0.0-0.8) K/mm3 Eos # 0.2 (0.0-0.4) K/mm3 Baso # 0.1 (0.0-0.1) K/mm3 Comprehensive Metabolic Panel 03/09/17 Range/Units 05:26 Sodium 139 (137-145) mmol/L Potassium 4.0 (3.6-5.0) mmol/L Chloride 94.7 L (98-107) mmol/L Carbon Dioxide 28 (22-30) mmol/L BUN 16 (9-20) mg/dL Creatinine 0.7 L (0.8-1.5) mg/dL Glucose 115 H (75-100) mg/dL Calcium 9.4 (8.4-10.2) mg/dL - Imaging and Cardiology Echo: report reviewed (03/2015 EF 40-45% with mild mitral regurgitation and mild tricuspid regurgitation) - Telemetry EKG Rhythm: Atrial Fibrillation
[2017-03-09] MEDS: LASIX IV SCH (13:37)
[2017-03-09] MEDS: CORDARONE PO SCH ×2 (13:41→21:13)
[2017-03-09] MEDS: PROTONIX PO SCH (13:41)
[2017-03-09] MEDS: FOLVITE PO SCH (13:42)
[2017-03-09] MEDS: VITAMIN B-1 PO SCH (17:45)
[2017-03-09] MEDS: DILAUDID IV PRN (21:13)
[2017-03-09] MEDS: LOVENOX SUB-Q SCH (21:14)
[2017-03-10] MEDS: LIBRIUM PO SCH ×5 (01:00→22:09)
[2017-03-10] MEDS: ATIVAN IV PRN ×3 (01:30→13:55)
[2017-03-10] MEDS: NOVOLOG SUB-Q SCH ×4 (02:39→22:10)
--- NOTE | 2017-03-10 10:14 | Progress Note ---
Assessment and Plan Assessment and plan: Afib with rvr. Cont. amiodarone 400 mg twice a day. Continue Lopressor 50 mg every 6 hours. Continue digoxin when necessary. Cardiology following. Echocardiogram reveals EF 30-35% with right ventricular systolic function severely reduced. Trace TR. Patient is not on anticoagulation secondary to noncompliance. Alcohol abuse. Continue ciwa protocol, thiamine/folic acid. Check CIWA score Encephalopathy. Etiology secondary to EtOH withdrawal. Left rib fractures. Continue supportive care. Cardiomyopathy. Echocardiogram as above. Plans for ischemic evaluation per cardiology. Pulmonary hypertension. Hypokalemia. Replete potassium to maintain approximately 4.0. Hypomagnesemia. Repleted. Fever. Resolved. Etiology was probably due to DTs. Cultures are negative, CXR clear, and WBC ~ 11K. Zosyn discontinued DVT prophylaxis. Continue sq lovenox History Interval history: Patient still agitated at times. Patient still requiring restraints. Hospitalist Physical - Constitutional Vitals: Temp Pulse Resp BP Pulse Ox 98.0 F 108 H 22 139/95 99 03/10/17 04:30 03/10/17 04:30 03/10/17 04:30 03/10/17 04:30 03/10/17 04:30 General appearance: Present: no acute distress - EENT Eyes: Present: PERRL, EOM intact ENT: hearing intact, clear oral mucosa, dentition normal - Neck Neck: Present: supple, normal ROM - Respiratory Respiratory effort: normal Respiratory: bilateral: CTA - Cardiovascular Rhythm: regular Heart Sounds: Present: S1 & S2. Absent: gallop, rub - Extremities Extremities: no ischemia, No edema, Full ROM - Abdominal General gastrointestinal: soft, non-tender, non-distended, normal bowel sounds - Integumentary Integumentary: Present: clear, warm, dry - Neurologic Neurologic: CNII-XII intact, moves all extremities Results - Labs CBC & Chem 7: 03/09/17 05:26 03/09/17 05:26 Labs: Laboratory Last Values WBC 11.8 K/mm3 (4.5-11.0) H 03/09/17 05:26 RBC 4.99 M/mm3 (3.65-5.03) 03/09/17 05:26 Hgb 16.3 gm/dl (11.8-15.2) H 03/09/17 05:26 Hct 49.1 % (35.5-45.6) H 03/09/17 05:26 MCV 98 fl (84-94) H 03/09/17 05:26 MCH 33 pg (28-32) H 03/09/17 05:26 MCHC 33 % (32-34) 03/09/17 05:26 RDW 14.2 % (13.2-15.2) 03/09/17 05:26 Plt Count 262 K/mm3 (140-440) 03/09/17 05:26 Lymph % (Auto) 14.5 % (13.4-35.0) 03/09/17 05:26 [place] % (Auto) 10.8 % (0.0-7.3) H 03/09/17 05:26 Eos % (Auto) 1.9 % (0.0-4.3) 03/09/17 05:26 Baso % (Auto) 1.0 % (0.0-1.8) 03/09/17 05:26 Lymph # 1.7 K/mm3 (1.2-5.4) 03/09/17 05:26 [place] # 1.3 K/mm3 (0.0-0.8) H 03/09/17 05:26 Eos # 0.2 K/mm3 (0.0-0.4) 03/09/17 05:26 Baso # 0.1 K/mm3 (0.0-0.1) 03/09/17 05:26 Add Manual Diff Complete 03/06/17 04:45 Total Counted 100 03/06/17 04:45 Seg Neutrophils % 71.8 % (40.0-70.0) H 03/09/17 05:26 Seg Neuts % (Manual) 58.0 % (40.0-70.0) 03/06/17 04:45 Band Neutrophils % 12.0 % 03/06/17 04:45 Lymphocytes % (Manual) 13.0 % (13.4-35.0) L 03/06/17 04:45 Reactive Lymphs % (Man) 0 % 03/06/17 04:45 Monocytes % (Manual) 17.0 % (0.0-7.3) H 03/06/17 04:45 Eosinophils % (Manual) 0 % (0.0-4.3) 03/06/17 04:45 Basophils % (Manual) 0 % (0.0-1.8) 03/06/17 04:45 Metamyelocytes % 0 % 03/06/17 04:45 Myelocytes % 0 % 03/06/17 04:45 Promyelocytes % 0 % 03/06/17 04:45 Blast Cells % 0 % 03/06/17 04:45 Nucleated RBC % Not Reportable 03/06/17 04:45 Seg Neutrophils # 8.4 K/mm3 (1.8-7.7) H 03/09/17 05:26 Seg Neutrophils # Man 6.8 K/mm3 (1.8-7.7) 03/06/17 04:45 Band Neutrophils # 1.4 K/mm3 03/06/17 04:45 Lymphocytes # (Manual) 1.5 K/mm3 (1.2-5.4) 03/06/17 04:45 Abs React Lymphs (Man) 0.0 K/mm3 03/06/17 04:45 Monocytes # (Manual) 2.0 K/mm3 (0.0-0.8) H 03/06/17 04:45 Eosinophils # (Manual) 0.0 K/mm3 (0.0-0.4) 03/06/17 04:45 Basophils # (Manual) 0.0 K/mm3 (0.0-0.1) 03/06/17 04:45 Metamyelocytes # 0.0 K/mm3 03/06/17 04:45 Myelocytes # 0.0 K/mm3 03/06/17 04:45 Promyelocytes # 0.0 K/mm3 03/06/17 04:45 Blast Cells # 0.0 K/mm3 03/06/17 04:45 WBC Morphology Not Reportable 03/06/17 04:45 Hypersegmented Neuts Not Reportable 03/06/17 04:45 Hyposegmented Neuts Not Reportable 03/06/17 04:45 Hypogranular Neuts Not Reportable 03/06/17 04:45 Smudge Cells Not Reportable 03/06/17 04:45 Toxic Granulation Not Reportable 03/06/17 04:45 Toxic Vacuolation Few 03/06/17 04:45 Dohle Bodies Not Reportable 03/06/17 04:45 Pelger-Huet Anomaly Not Reportable 03/06/17 04:45 Marco Rods Not Reportable 03/06/17 04:45 Platelet Estimate Appears normal 03/06/17 04:45 Clumped Platelets Not Reportable 03/06/17 04:45 Plt Clumps, EDTA Not Reportable 03/06/17 04:45 Large Platelets Not Reportable 03/06/17 04:45 Giant Platelets Not Reportable 03/06/17 04:45 Platelet Satelliting Not Reportable 03/06/17 04:45 Plt Morphology Comment Not Reportable 03/06/17 04:45 RBC Morphology Not Reportable 03/06/17 04:45 Dimorphic RBCs Not Reportable 03/06/17 04:45 Polychromasia Not Reportable 03/06/17 04:45 Hypochromasia Not Reportable 03/06/17 04:45 Poikilocytosis Not Reportable 03/06/17 04:45 Anisocytosis Few 03/06/17 04:45 Microcytosis Not Reportable 03/06/17 04:45 Macrocytosis Not Reportable 03/06/17 04:45 Spherocytes Not Reportable 03/06/17 04:45 Pappenheimer Bodies Not Reportable 03/06/17 04:45 Sickle Cells Not Reportable 03/06/17 04:45 Target Cells Not Reportable 03/06/17 04:45 Tear Drop Cells Not Reportable 03/06/17 04:45 Ovalocytes Not Reportable 03/06/17 04:45 Stomatocytes Few 03/05/17 07:03 Helmet Cells Not Reportable 03/06/17 04:45 [place] Bodies Not Reportable 03/06/17 04:45 [place] Rings Not Reportable 03/06/17 04:45 Dave Cells Not Reportable 03/06/17 04:45 Bite Cells Not Reportable 03/06/17 04:45 Crenated Cell Not Reportable 03/06/17 04:45 Elliptocytes Not Reportable 03/06/17 04:45 Acanthocytes (Spur) Not Reportable 03/06/17 04:45 Rouleaux Not Reportable 03/06/17 04:45 Hemoglobin C Crystals Not Reportable 03/06/17 04:45 Schistocytes Not Reportable 03/06/17 04:45 Malaria parasites Not Reportable 03/06/17 04:45 Nishant Bodies Not Reportable 03/06/17 04:45 Hem Pathologist Commnt No 03/06/17 04:45 PT 14.3 Sec. (12.2-14.9) 02/26/17 23:40 INR 1.12 (0.87-1.13) 02/26/17 23:40 APTT 29.8 Sec. (24.2-36.6) 02/26/17 23:40 Sodium 139 mmol/L (137-145) 03/09/17 05:26 Potassium 4.0 mmol/L (3.6-5.0) 03/09/17 05:26 Chloride 94.7 mmol/L (98-107) L 03/09/17 05:26 Carbon Dioxide 28 mmol/L (22-30) 03/09/17 05:26 Anion Gap 20 mmol/L 03/09/17 05:26 BUN 16 mg/dL (9-20) 03/09/17 05:26 Creatinine 0.7 mg/dL (0.8-1.5) L 03/09/17 05:26 Estimated GFR > 60 ml/min 03/09/17 05:26 BUN/Creatinine Ratio 22.85 % 03/09/17 05:26 Glucose 115 mg/dL (75-100) H 03/09/17 05:26 POC Glucose 107 (70-105) H 03/10/17 08:27 Calcium 9.4 mg/dL (8.4-10.2) 03/09/17 05:26 Phosphorus 4.60 mg/dL (2.5-4.5) H 03/06/17 04:50 Magnesium 1.80 mg/dL (1.7-2.3) 03/06/17 04:50 Total Bilirubin 1.00 mg/dL (0.1-1.2) 03/08/17 04:58 AST 50 units/L (5-40) H 03/08/17 04:58 ALT 22 units/L (7-56) 03/08/17 04:58 Alkaline Phosphatase 76 units/L (35-129) 03/08/17 04:58 Total Creatine Kinase 148 units/L (55-170) 02/27/17 13:08 CK-MB (CK-2) 4.7 ng/mL (0.0-4.0) H 02/27/17 13:08 CK-MB (CK-2) Rel Index 3.1 (0-4) 02/27/17 13:08 Troponin T < 0.010 ng/mL (0.00-0.029) 02/27/17 13:08 Total Protein 7.1 g/dL (6.3-8.2) 03/08/17 04:58 Albumin 2.7 g/dL (3.9-5) L 03/08/17 04:58 Albumin/Globulin Ratio 0.6 % 03/08/17 04:58 TSH 1.480 mlU/mL (0.270-4.200) 02/26/17 23:40 Free T4 1.16 ng/dL (0.76-1.46) 02/26/17 23:40 Urine Color Yellow (Yellow) 03/03/17 10:38 Urine Turbidity Clear (Clear) 03/03/17 10:38 Urine pH 5.0 (5.0-7.0) 03/03/17 10:38 Ur Specific [place] 1.012 (1.003-1.030) 03/03/17 10:38 Urine Protein <15 mg/dl mg/dL (Negative) 03/03/17 10:38 Urine Glucose (UA) Neg mg/dL (Negative) 03/03/17 10:38 Urine Ketones Neg mg/dL (Negative) 03/03/17 10:38 Urine Blood Lg (Negative) 03/03/17 10:38 Urine Nitrite Neg (Negative) 03/03/17 10:38 Urine Bilirubin Neg (Negative) 03/03/17 10:38 Urine Urobilinogen < 2.0 mg/dL (<2.0) 03/03/17 10:38 Ur Leukocyte Esterase Tr (Negative) 03/03/17 10:38 Urine WBC (Auto) 5.0 /HPF (0.0-6.0) 03/03/17 10:38 Urine RBC (Auto) 51.0 /HPF (0.0-6.0) 03/03/17 10:38 Urine Mucus Few /HPF 03/03/17 10:38 Plasma/Serum Alcohol 0.24 gm% (0-0.07) H 02/26/17 23:40
[2017-03-10] MEDS: TOPROL XL PO SCH (10:20)
[2017-03-10] MEDS: VITAMIN B-1 PO SCH (10:20)
[2017-03-10] MEDS: LASIX IV SCH (10:21)
[2017-03-10] MEDS: PROTONIX PO SCH (10:21)
[2017-03-10] MEDS: FOLVITE PO SCH (10:21)
[2017-03-10] MEDS: CORDARONE PO SCH ×2 (10:21→22:09)
--- NOTE | 2017-03-10 10:26 | Progress Note ---
Assessment and Plan Assessment: AFib with RVR -> now with CVR. AMS / ETOH withdrawal left rib fracture HTN ETOH abuse Cardiomyopathy - EF 30 - 35% Hypomagnesemia - repleted Hypokalemia Pulmonary HTN Plan: Cont amio, 200mg PO BID. Will decrease to 200mg daily after 7 days of BID dosing. Cont Lopressor, 50mg Q6H. Convert to Toprol XL, 100mg daily, from tomorrow. Patient not on anticoagulation secondary to noncompliance and AMS. Plan for ischemic evaluation (lexiscan MPI) once mental status improves. The patient has been seen in conjunction with Dr. Almanzar who agrees with the assessment and plan of care. Subjective Date of service: 03/10/17 Principal diagnosis: afib Interval history: Pt resting in bed, NAD. Confused, agitated at times. In AFib with CVR. BPs stable. Objective Last Vital Signs Temp 98.6 F 03/10/17 08:23 Pulse 88 03/10/17 08:23 Resp 20 03/10/17 08:23 BP 139/95 03/10/17 04:30 Pulse Ox 97 03/10/17 08:23 - Physical Examination General: No Apparent Distress HEENT: Positive: PERRL, EOMI Neck: Positive: neck supple Cardiac: Positive: irregularly irregular, S1/S2 Lungs: Positive: Decreased Breath Sounds, Oxygen Neuro: Positive: Grossly Intact Abdomen: Positive: Active Bowel Sounds Skin: Positive: Clear Extremities: Present: normal. Absent: edema - Imaging and Cardiology Echo: report reviewed (03/2015 EF 40-45% with mild mitral regurgitation and mild tricuspid regurgitation) - Telemetry EKG Rhythm: Atrial Fibrillation
[2017-03-10] MEDS: LOVENOX SUB-Q SCH (22:09)
[2017-03-11] MEDS: ATIVAN IV PRN (03:56)
[2017-03-11] MEDS: LIBRIUM PO SCH ×5 (06:09→22:25)
--- NOTE | 2017-03-11 08:11 | Progress Note ---
Assessment and Plan - Patient Problems (1) Contusion of rib on left side Current Visit: Yes Status: Acute Qualifiers: Encounter type: E (2) Alcohol abuse Current Visit: Yes Status: Chronic Plan to address problem: continue CIWA protocol (3) Atrial fibrillation Current Visit: No Status: Acute Qualifiers: Atrial fibrillation type: A Plan to address problem: Cont amiodarone, 200mg PO BID. Will decrease to 200mg daily after 7 days of BID dosing. Cont Lopressor, 50mg Q6H. Convert to Toprol XL, 100mg daily, from tomorrow. Patient not on anticoagulation secondary to noncompliance and AMS. Plan for ischemic evaluation (lexiscan MPI) once mental status improves. History Interval history: Patient awake alert Hospitalist Physical - Constitutional Vitals: Temp Pulse Resp BP Pulse Ox 97.5 F L 121 H 18 156/95 97 03/11/17 02:09 03/11/17 07:38 03/11/17 02:09 03/11/17 02:09 03/11/17 02:09 General appearance: Present: no acute distress - EENT Eyes: Present: PERRL, EOM intact ENT: hearing intact, clear oral mucosa, dentition normal - Neck Neck: Present: supple, normal ROM - Respiratory Respiratory effort: normal Respiratory: bilateral: CTA - Cardiovascular Rhythm: irregularly irregular - Extremities Extremities: no ischemia, No edema - Abdominal General gastrointestinal: soft, non-tender, non-distended, normal bowel sounds - Psychiatric Psychiatric: appropriate mood/affect, intact judgment & insight - Neurologic Neurologic: CNII-XII intact, moves all extremities Results - Labs CBC & Chem 7: 03/09/17 05:26 03/09/17 05:26 Labs: Laboratory Last Values WBC 11.8 K/mm3 (4.5-11.0) H 03/09/17 05:26 RBC 4.99 M/mm3 (3.65-5.03) 03/09/17 05:26 Hgb 16.3 gm/dl (11.8-15.2) H 03/09/17 05:26 Hct 49.1 % (35.5-45.6) H 03/09/17 05:26 MCV 98 fl (84-94) H 03/09/17 05:26 MCH 33 pg (28-32) H 03/09/17 05:26 MCHC 33 % (32-34) 03/09/17 05:26 RDW 14.2 % (13.2-15.2) 03/09/17 05:26 Plt Count 262 K/mm3 (140-440) 03/09/17 05:26 Lymph % (Auto) 14.5 % (13.4-35.0) 03/09/17 05:26 [place] % (Auto) 10.8 % (0.0-7.3) H 03/09/17 05:26 Eos % (Auto) 1.9 % (0.0-4.3) 03/09/17 05:26 Baso % (Auto) 1.0 % (0.0-1.8) 03/09/17 05:26 Lymph # 1.7 K/mm3 (1.2-5.4) 03/09/17 05:26 [place] # 1.3 K/mm3 (0.0-0.8) H 03/09/17 05:26 Eos # 0.2 K/mm3 (0.0-0.4) 03/09/17 05:26 Baso # 0.1 K/mm3 (0.0-0.1) 03/09/17 05:26 Add Manual Diff Complete 03/06/17 04:45 Total Counted 100 03/06/17 04:45 Seg Neutrophils % 71.8 % (40.0-70.0) H 03/09/17 05:26 Seg Neuts % (Manual) 58.0 % (40.0-70.0) 03/06/17 04:45 Band Neutrophils % 12.0 % 03/06/17 04:45 Lymphocytes % (Manual) 13.0 % (13.4-35.0) L 03/06/17 04:45 Reactive Lymphs % (Man) 0 % 03/06/17 04:45 Monocytes % (Manual) 17.0 % (0.0-7.3) H 03/06/17 04:45 Eosinophils % (Manual) 0 % (0.0-4.3) 03/06/17 04:45 Basophils % (Manual) 0 % (0.0-1.8) 03/06/17 04:45 Metamyelocytes % 0 % 03/06/17 04:45 Myelocytes % 0 % 03/06/17 04:45 Promyelocytes % 0 % 03/06/17 04:45 Blast Cells % 0 % 03/06/17 04:45 Nucleated RBC % Not Reportable 03/06/17 04:45 Seg Neutrophils # 8.4 K/mm3 (1.8-7.7) H 03/09/17 05:26 Seg Neutrophils # Man 6.8 K/mm3 (1.8-7.7) 03/06/17 04:45 Band Neutrophils # 1.4 K/mm3 03/06/17 04:45 Lymphocytes # (Manual) 1.5 K/mm3 (1.2-5.4) 03/06/17 04:45 Abs React Lymphs (Man) 0.0 K/mm3 03/06/17 04:45 Monocytes # (Manual) 2.0 K/mm3 (0.0-0.8) H 03/06/17 04:45 Eosinophils # (Manual) 0.0 K/mm3 (0.0-0.4) 03/06/17 04:45 Basophils # (Manual) 0.0 K/mm3 (0.0-0.1) 03/06/17 04:45 Metamyelocytes # 0.0 K/mm3 03/06/17 04:45 Myelocytes # 0.0 K/mm3 03/06/17 04:45 Promyelocytes # 0.0 K/mm3 03/06/17 04:45 Blast Cells # 0.0 K/mm3 03/06/17 04:45 WBC Morphology Not Reportable 03/06/17 04:45 Hypersegmented Neuts Not Reportable 03/06/17 04:45 Hyposegmented Neuts Not Reportable 03/06/17 04:45 Hypogranular Neuts Not Reportable 03/06/17 04:45 Smudge Cells Not Reportable 03/06/17 04:45 Toxic Granulation Not Reportable 03/06/17 04:45 Toxic Vacuolation Few 03/06/17 04:45 Dohle Bodies Not Reportable 03/06/17 04:45 Pelger-Huet Anomaly Not Reportable 03/06/17 04:45 Marco Rods Not Reportable 03/06/17 04:45 Platelet Estimate Appears normal 03/06/17 04:45 Clumped Platelets Not Reportable 03/06/17 04:45 Plt Clumps, EDTA Not Reportable 03/06/17 04:45 Large Platelets Not Reportable 03/06/17 04:45 Giant Platelets Not Reportable 03/06/17 04:45 Platelet Satelliting Not Reportable 03/06/17 04:45 Plt Morphology Comment Not Reportable 03/06/17 04:45 RBC Morphology Not Reportable 03/06/17 04:45 Dimorphic RBCs Not Reportable 03/06/17 04:45 Polychromasia Not Reportable 03/06/17 04:45 Hypochromasia Not Reportable 03/06/17 04:45 Poikilocytosis Not Reportable 03/06/17 04:45 Anisocytosis Few 03/06/17 04:45 Microcytosis Not Reportable 03/06/17 04:45 Macrocytosis Not Reportable 03/06/17 04:45 Spherocytes Not Reportable 03/06/17 04:45 Pappenheimer Bodies Not Reportable 03/06/17 04:45 Sickle Cells Not Reportable 03/06/17 04:45 Target Cells Not Reportable 03/06/17 04:45 Tear Drop Cells Not Reportable 03/06/17 04:45 Ovalocytes Not Reportable 03/06/17 04:45 Stomatocytes Few 03/05/17 07:03 Helmet Cells Not Reportable 03/06/17 04:45 [place] Bodies Not Reportable 03/06/17 04:45 [place] Rings Not Reportable 03/06/17 04:45 Dave Cells Not Reportable 03/06/17 04:45 Bite Cells Not Reportable 03/06/17 04:45 Crenated Cell Not Reportable 03/06/17 04:45 Elliptocytes Not Reportable 03/06/17 04:45 Acanthocytes (Spur) Not Reportable 03/06/17 04:45 Rouleaux Not Reportable 03/06/17 04:45 Hemoglobin C Crystals Not Reportable 03/06/17 04:45 Schistocytes Not Reportable 03/06/17 04:45 Malaria parasites Not Reportable 03/06/17 04:45 Nishant Bodies Not Reportable 03/06/17 04:45 Hem Pathologist Commnt No 03/06/17 04:45 PT 14.3 Sec. (12.2-14.9) 02/26/17 23:40 INR 1.12 (0.87-1.13) 02/26/17 23:40 APTT 29.8 Sec. (24.2-36.6) 02/26/17 23:40 Sodium 139 mmol/L (137-145) 03/09/17 05:26 Potassium 4.0 mmol/L (3.6-5.0) 03/09/17 05:26 Chloride 94.7 mmol/L (98-107) L 03/09/17 05:26 Carbon Dioxide 28 mmol/L (22-30) 03/09/17 05:26 Anion Gap 20 mmol/L 03/09/17 05:26 BUN 16 mg/dL (9-20) 03/09/17 05:26 Creatinine 0.7 mg/dL (0.8-1.5) L 03/09/17 05:26 Estimated GFR > 60 ml/min 03/09/17 05:26 BUN/Creatinine Ratio 22.85 % 03/09/17 05:26 Glucose 115 mg/dL (75-100) H 03/09/17 05:26 POC Glucose 135 (70-105) H 03/10/17 21:46 Calcium 9.4 mg/dL (8.4-10.2) 03/09/17 05:26 Phosphorus 4.60 mg/dL (2.5-4.5) H 03/06/17 04:50 Magnesium 1.80 mg/dL (1.7-2.3) 03/06/17 04:50 Total Bilirubin 1.00 mg/dL (0.1-1.2) 03/08/17 04:58 AST 50 units/L (5-40) H 03/08/17 04:58 ALT 22 units/L (7-56) 03/08/17 04:58 Alkaline Phosphatase 76 units/L (35-129) 03/08/17 04:58 Total Creatine Kinase 148 units/L (55-170) 02/27/17 13:08 CK-MB (CK-2) 4.7 ng/mL (0.0-4.0) H 02/27/17 13:08 CK-MB (CK-2) Rel Index 3.1 (0-4) 02/27/17 13:08 Troponin T < 0.010 ng/mL (0.00-0.029) 02/27/17 13:08 Total Protein 7.1 g/dL (6.3-8.2) 03/08/17 04:58 Albumin 2.7 g/dL (3.9-5) L 03/08/17 04:58 Albumin/Globulin Ratio 0.6 % 03/08/17 04:58 TSH 1.480 mlU/mL (0.270-4.200) 02/26/17 23:40 Free T4 1.16 ng/dL (0.76-1.46) 02/26/17 23:40 Urine Color Yellow (Yellow) 03/03/17 10:38 Urine Turbidity Clear (Clear) 03/03/17 10:38 Urine pH 5.0 (5.0-7.0) 03/03/17 10:38 Ur Specific [place] 1.012 (1.003-1.030) 03/03/17 10:38 Urine Protein <15 mg/dl mg/dL (Negative) 03/03/17 10:38 Urine Glucose (UA) Neg mg/dL (Negative) 03/03/17 10:38 Urine Ketones Neg mg/dL (Negative) 03/03/17 10:38 Urine Blood Lg (Negative) 03/03/17 10:38 Urine Nitrite Neg (Negative) 03/03/17 10:38 Urine Bilirubin Neg (Negative) 03/03/17 10:38 Urine Urobilinogen < 2.0 mg/dL (<2.0) 03/03/17 10:38 Ur Leukocyte Esterase Tr (Negative) 03/03/17 10:38 Urine WBC (Auto) 5.0 /HPF (0.0-6.0) 03/03/17 10:38 Urine RBC (Auto) 51.0 /HPF (0.0-6.0) 03/03/17 10:38 Urine Mucus Few /HPF 03/03/17 10:38 Plasma/Serum Alcohol 0.24 gm% (0-0.07) H 02/26/17 23:40
[2017-03-11] MEDS: NOVOLOG SUB-Q SCH ×4 (08:31→22:23)
--- NOTE | 2017-03-11 09:48 | Progress Note ---
Assessment and Plan Assessment: AFib with RVR -> now with CVR. AMS / ETOH withdrawal left rib fracture HTN ETOH abuse Cardiomyopathy - EF 30 - 35% Hypomagnesemia - repleted Hypokalemia Pulmonary HTN Plan: Cont amio, 200mg PO BID. Recommend to decrease to 200mg daily following 7 days of BID dosing (decrease on 03/14/2017). Cont Toprol XL, 100mg daily. Patient not on anticoagulation secondary to noncompliance and AMS. Plan for ischemic evaluation (lexiscan MPI) if/when mental status improves. Will see PRN. The patient has been seen in conjunction with Dr. Almanzar who agrees with the assessment and plan of care. Subjective Date of service: 03/11/17 Principal diagnosis: afib Interval history: Pt resting in bed, NAD. Confused, agitated at times. In AFib with CVR. BPs stable. Objective Last Vital Signs Temp 97.5 F L 03/11/17 02:09 Pulse 121 H 03/11/17 07:38 Resp 18 03/11/17 02:09 BP 156/95 03/11/17 02:09 Pulse Ox 97 03/11/17 02:09 - Physical Examination General: No Apparent Distress HEENT: Positive: PERRL, EOMI Neck: Positive: neck supple Cardiac: Positive: irregularly irregular, S1/S2 Lungs: Positive: Decreased Breath Sounds, Oxygen Neuro: Positive: Grossly Intact Abdomen: Positive: Active Bowel Sounds Skin: Positive: Clear Extremities: Present: normal. Absent: edema - Imaging and Cardiology Echo: report reviewed (03/2015 EF 40-45% with mild mitral regurgitation and mild tricuspid regurgitation) - Telemetry EKG Rhythm: Atrial Fibrillation
[2017-03-11] MEDS: CORDARONE PO SCH ×2 (10:52→21:37)
[2017-03-11] MEDS: FOLVITE PO SCH (10:52)
[2017-03-11] MEDS: PROTONIX PO SCH (10:52)
[2017-03-11] MEDS: LASIX IV SCH (10:52)
[2017-03-11] MEDS: VITAMIN B-1 PO SCH (10:53)
[2017-03-11] MEDS: TOPROL XL PO SCH (10:53)
[2017-03-11] MEDS: LOVENOX SUB-Q SCH (21:37)
[2017-03-12] MEDS: LIBRIUM PO SCH ×5 (06:25→22:26)
[2017-03-12] MEDS: NOVOLOG SUB-Q SCH ×5 (08:46→22:30)
[2017-03-12 09:29] LABS: Basophils % (Auto) 0.5 % (0.0-1.8); Eosinophils % (Auto) 0.7 % (0.0-4.3); Hematocrit 48.8 % (35.5-45.6); Hemoglobin 16.1 gm/dl (11.8-15.2); Mean Corpuscular HGB Conc 33 % (32-34); Mean Corpuscular Hemoglobin 32 pg (28-32); Mean Corpuscular Volume 97 fl (84-94); Platelet Count 276 K/mm3 (140-440); Red Blood Count 5.04 M/mm3 (3.65-5.03); Red Cell Distribution Width 14.6 % (13.2-15.2); White Blood Count 14.9 K/mm3 (4.5-11.0)
[2017-03-12 10:03] LABS: Alanine Aminotransferase 33 units/L (7-56); Albumin 3.2 g/dL (3.9-5); Albumin/Globulin Ratio 0.8 %; Alkaline Phosphatase 108 units/L (35-129); Anion Gap 23 mmol/L; BUN/Creatinine Ratio 18.33; Blood Urea Nitrogen 11 mg/dL (9-20); Calcium 9.4 mg/dL (8.4-10.2); Carbon Dioxide 28 mmol/L (22-30); Chloride 93.4 mmol/L (98-107); Glucose 121 mg/dL (75-100); Potassium 3.2 mmol/L (3.6-5.0); Sodium 141 mmol/L (137-145); Total Protein 7.1 g/dL (6.3-8.2)
[2017-03-12] MEDS: VITAMIN B-1 PO SCH (10:06)
[2017-03-12] MEDS: CORDARONE PO SCH ×2 (10:06→22:27)
[2017-03-12] MEDS: FOLVITE PO SCH (10:06)
[2017-03-12] MEDS: TOPROL XL PO SCH (10:06)
[2017-03-12] MEDS: PROTONIX PO SCH (10:06)
[2017-03-12] MEDS: LASIX IV SCH (10:07)
[2017-03-12] MEDS: LOVENOX SUB-Q SCH (22:26)
[2017-03-13] MEDS: LIBRIUM PO SCH ×4 (04:38→22:19)
[2017-03-13] MEDS: NOVOLOG SUB-Q SCH ×4 (07:30→21:47)
[2017-03-13] MEDS: TOPROL XL PO SCH (09:22)
[2017-03-13] MEDS: PROTONIX PO SCH (09:22)
[2017-03-13] MEDS: FOLVITE PO SCH (09:22)
[2017-03-13] MEDS: LASIX IV SCH (09:22)
[2017-03-13] MEDS: CORDARONE PO SCH ×2 (09:22→21:47)
[2017-03-13] MEDS: VITAMIN B-1 PO SCH (09:22)
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
[2017-03-13] MEDS: DILAUDID IV PRN ×2 (17:19→23:23)
[2017-03-13] MEDS: LOVENOX SUB-Q SCH (21:46)
[2017-03-14] MEDS: LIBRIUM PO SCH ×4 (05:25→22:06)
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
[2017-03-14] MEDS: VITAMIN B-1 PO SCH (12:44)
[2017-03-14] MEDS: PROTONIX PO SCH (12:45)
[2017-03-14] MEDS: FOLVITE PO SCH (12:45)
[2017-03-14] MEDS: TOPROL XL PO SCH (12:46)
[2017-03-14] MEDS: CORDARONE PO SCH ×2 (12:46→22:06)
[2017-03-14] MEDS: LASIX IV SCH (12:46)
[2017-03-14] MEDS: NOVOLOG SUB-Q SCH ×3 (12:47→22:06)
[2017-03-14] MEDS: DILAUDID IV PRN (20:16)
[2017-03-14] MEDS: LOVENOX SUB-Q SCH (22:05)
[2017-03-15 01:35] LABS: Hematocrit 49.4 % (35.5-45.6); Hemoglobin 16.1 gm/dl (11.8-15.2); Mean Corpuscular HGB Conc 33 % (32-34); Mean Corpuscular Hemoglobin 33 pg (28-32); Mean Corpuscular Volume 100 fl (84-94); Platelet Count 365 K/mm3 (140-440); Red Blood Count 4.93 M/mm3 (3.65-5.03); Red Cell Distribution Width 14.3 % (13.2-15.2)
[2017-03-15 01:37] LABS: White Blood Count 23.9 K/mm3 (4.5-11.0)
[2017-03-15 02:35] LABS: Basophils % (Manual) 0 % (0.0-1.8); Blastocytes % (Manual) 0 %; Eosinophils % (Manual) 0 % (0.0-4.3)
[2017-03-15 02:36] LABS: Diff Status Complete; Platelet Estimate Consistent w Auto
[2017-03-15] MEDS: LIBRIUM PO SCH ×4 (04:39→22:02)
[2017-03-15] MEDS: DILAUDID IV PRN ×2 (05:12→18:18)
[2017-03-15 08:09] LABS: Albumin/Globulin Ratio 0.6 %; Bilirubin,Total 0.9 mg/dL (0.1-1.2); Calcium 9.3 mg/dL (8.4-10.2); Total Protein 7.9 g/dL (6.3-8.2)
[2017-03-15 08:35] LABS: Potassium 4.9 mmol/L (3.6-5.0)
[2017-03-15] MEDS: LASIX IV SCH (09:44)
[2017-03-15] MEDS: NOVOLOG SUB-Q SCH ×4 (10:43→22:02)
[2017-03-15] MEDS: PROTONIX PO SCH (11:44)
[2017-03-15] MEDS: VITAMIN B-1 PO SCH (11:44)
[2017-03-15] MEDS: TOPROL XL PO SCH (11:44)
[2017-03-15] MEDS: FOLVITE PO SCH (11:44)
[2017-03-15] MEDS: CORDARONE PO SCH ×2 (11:46→21:55)
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
[2017-03-15] MEDS: LOVENOX SUB-Q SCH (21:55)
[2017-03-16] MEDS: DILAUDID IV PRN ×2 (03:57→19:50)
[2017-03-16] MEDS: LIBRIUM PO SCH ×3 (06:10→16:43)
[2017-03-16 07:00] LABS: Hematocrit 45.8 % (35.5-45.6); Hemoglobin 15.1 gm/dl (11.8-15.2); Mean Corpuscular HGB Conc 33 % (32-34); Mean Corpuscular Hemoglobin 33 pg (28-32); Mean Corpuscular Volume 99 fl (84-94); Platelet Count 339 K/mm3 (140-440); Red Blood Count 4.64 M/mm3 (3.65-5.03); Red Cell Distribution Width 14.1 % (13.2-15.2)
[2017-03-16 07:43] LABS: Anion Gap 18 mmol/L; Blood Urea Nitrogen 44 mg/dL (9-20); Calcium 9.3 mg/dL (8.4-10.2); Carbon Dioxide 34 mmol/L (22-30); Chloride 92.3 mmol/L (98-107); Glucose 150 mg/dL (75-100); Potassium 4.6 mmol/L (3.6-5.0); Sodium 140 mmol/L (137-145)
[2017-03-16 08:22] LABS: White Blood Count 20.9 K/mm3 (4.5-11.0)
[2017-03-16 10:47] LABS: Basophils % (Manual) 0 % (0.0-1.8); Blastocytes % (Manual) 0 %; Eosinophils % (Manual) 0 % (0.0-4.3)
[2017-03-16 10:48] LABS: Diff Status Complete; RBC Morphology Normal
[2017-03-16] MEDS: NOVOLOG SUB-Q SCH ×4 (11:43→22:35)
[2017-03-16] MEDS: LASIX IV SCH (11:57)
[2017-03-16] MEDS: PROTONIX PO SCH (11:58)
[2017-03-16] MEDS: FOLVITE PO SCH (11:58)
[2017-03-16] MEDS: CORDARONE PO SCH ×2 (12:01→22:38)
[2017-03-16] MEDS: VITAMIN B-1 PO SCH (12:03)
--- NOTE | 2017-03-16 12:15 | Progress Note ---
Assessment and Plan Assessment and plan: Afib with rvr. Cont. amiodarone 400 mg twice a day. Continue Lopressor 50 mg every 6 hours. Continue digoxin when necessary. Cardiology following. Echocardiogram reveals EF 30-35% with right ventricular systolic function severely reduced. Trace TR. Patient is not on anticoagulation secondary to noncompliance. Alcohol abuse. Continue ciwa protocol, thiamine/folic acid. Continue to follow CIWA score Encephalopathy. Etiology secondary to EtOH withdrawal. Psychiatry consultation for further evaluation. Left rib fractures. Continue supportive care. Cardiomyopathy. Echocardiogram as above. Plans for ischemic evaluation per cardiology when patient was stable. Pulmonary hypertension. Hypokalemia. Replete potassium to maintain approximately 4.0. Hypomagnesemia. Repleted. Leukocytosis. Increasing. Patient noted to be last febrile on 03/13/17. Etiology was likely due to DTs. Previously, Cultures have been negative and CXR was clear. Therefore, Zosyn was discontinued. However, WBC has been trending upward. We will recheck blood cultures, lactic acid level and chest x- ray. DVT prophylaxis. Continue sq lovenox History Interval history: Patient still agitated at times. Patient still requiring restraints. Hospitalist Physical - Constitutional Vitals: Temp Pulse Resp BP Pulse Ox 98.0 F 107 H 20 121/87 97 03/16/17 07:40 03/16/17 07:40 03/16/17 07:40 03/16/17 07:40 03/16/17 07:40 General appearance: Present: no acute distress - EENT Eyes: Present: PERRL, EOM intact ENT: hearing intact, clear oral mucosa, dentition normal - Neck Neck: Present: supple, normal ROM - Respiratory Respiratory effort: normal Respiratory: bilateral: CTA - Cardiovascular Rhythm: regular Heart Sounds: Present: S1 & S2. Absent: gallop, rub - Extremities Extremities: no ischemia, No edema, Full ROM - Abdominal General gastrointestinal: soft, non-tender, non-distended, normal bowel sounds - Integumentary Integumentary: Present: clear, warm, dry - Neurologic Neurologic: CNII-XII intact, moves all extremities Results - Labs CBC & Chem 7: 03/16/17 06:02 03/16/17 05:59 Labs: Laboratory Last Values WBC 20.9 K/mm3 (4.5-11.0) H 03/16/17 06:02 RBC 4.64 M/mm3 (3.65-5.03) 03/16/17 06:02 Hgb 15.1 gm/dl (11.8-15.2) 03/16/17 06:02 Hct 45.8 % (35.5-45.6) H 03/16/17 06:02 MCV 99 fl (84-94) H 03/16/17 06:02 MCH 33 pg (28-32) H 03/16/17 06:02 MCHC 33 % (32-34) 03/16/17 06:02 RDW 14.1 % (13.2-15.2) 03/16/17 06:02 Plt Count 339 K/mm3 (140-440) 03/16/17 06:02 Lymph % (Auto) 11.7 % (13.4-35.0) L 03/12/17 08:44 [place] % (Auto) 11.6 % (0.0-7.3) H 03/12/17 08:44 Eos % (Auto) 0.7 % (0.0-4.3) 03/12/17 08:44 Baso % (Auto) 0.5 % (0.0-1.8) 03/12/17 08:44 Lymph # 1.7 K/mm3 (1.2-5.4) 03/12/17 08:44 [place] # 1.7 K/mm3 (0.0-0.8) H 03/12/17 08:44 Eos # 0.1 K/mm3 (0.0-0.4) 03/12/17 08:44 Baso # 0.1 K/mm3 (0.0-0.1) 03/12/17 08:44 Add Manual Diff Complete 03/16/17 06:02 Total Counted 100 03/16/17 06:02 Seg Neutrophils % 75.5 % (40.0-70.0) H 03/12/17 08:44 Seg Neuts % (Manual) 92.0 % (40.0-70.0) H 03/16/17 06:02 Band Neutrophils % 1.0 % 03/16/17 06:02 Lymphocytes % (Manual) 4.0 % (13.4-35.0) L 03/16/17 06:02 Reactive Lymphs % (Man) 0 % 03/16/17 06:02 Monocytes % (Manual) 3.0 % (0.0-7.3) 03/16/17 06:02 Eosinophils % (Manual) 0 % (0.0-4.3) 03/16/17 06:02 Basophils % (Manual) 0 % (0.0-1.8) 03/16/17 06:02 Metamyelocytes % 0 % 03/16/17 06:02 Myelocytes % 0 % 03/16/17 06:02 Promyelocytes % 0 % 03/16/17 06:02 Blast Cells % 0 % 03/16/17 06:02 Nucleated RBC % Not Reportable 03/16/17 06:02 Seg Neutrophils # 11.2 K/mm3 (1.8-7.7) H 03/12/17 08:44 Seg Neutrophils # Man 19.2 K/mm3 (1.8-7.7) H 03/16/17 06:02 Band Neutrophils # 0.2 K/mm3 03/16/17 06:02 Lymphocytes # (Manual) 0.8 K/mm3 (1.2-5.4) L 03/16/17 06:02 Abs React Lymphs (Man) 0.0 K/mm3 03/16/17 06:02 Monocytes # (Manual) 0.6 K/mm3 (0.0-0.8) 03/16/17 06:02 Eosinophils # (Manual) 0.0 K/mm3 (0.0-0.4) 03/16/17 06:02 Basophils # (Manual) 0.0 K/mm3 (0.0-0.1) 03/16/17 06:02 Metamyelocytes # 0.0 K/mm3 03/16/17 06:02 Myelocytes # 0.0 K/mm3 03/16/17 06:02 Promyelocytes # 0.0 K/mm3 03/16/17 06:02 Blast Cells # 0.0 K/mm3 03/16/17 06:02 WBC Morphology Not Reportable 03/16/17 06:02 Hypersegmented Neuts Not Reportable 03/16/17 06:02 Hyposegmented Neuts Not Reportable 03/16/17 06:02 Hypogranular Neuts Not Reportable 03/16/17 06:02 Smudge Cells Not Reportable 03/16/17 06:02 Toxic Granulation Not Reportable 03/16/17 06:02 Toxic Vacuolation Not Reportable 03/16/17 06:02 Dohle Bodies Not Reportable 03/16/17 06:02 Pelger-Huet Anomaly Not Reportable 03/16/17 06:02 Marco Rods Not Reportable 03/16/17 06:02 Platelet Estimate Appears normal 03/16/17 06:02 Clumped Platelets Not Reportable 03/16/17 06:02 Plt Clumps, EDTA Not Reportable 03/16/17 06:02 Large Platelets Not Reportable 03/16/17 06:02 Giant Platelets Not Reportable 03/16/17 06:02 Platelet Satelliting Not Reportable 03/16/17 06:02 Plt Morphology Comment Not Reportable 03/16/17 06:02 RBC Morphology Normal 03/16/17 06:02 Dimorphic RBCs Not Reportable 03/16/17 06:02 Polychromasia Not Reportable 03/16/17 06:02 Hypochromasia Not Reportable 03/16/17 06:02 Poikilocytosis Not Reportable 03/16/17 06:02 Anisocytosis Not Reportable 03/16/17 06:02 Microcytosis Not Reportable 03/16/17 06:02 Macrocytosis Not Reportable 03/16/17 06:02 Spherocytes Not Reportable 03/16/17 06:02 Pappenheimer Bodies Not Reportable 03/16/17 06:02 Sickle Cells Not Reportable 03/16/17 06:02 Target Cells Not Reportable 03/16/17 06:02 Tear Drop Cells Not Reportable 03/16/17 06:02 Ovalocytes Not Reportable 03/16/17 06:02 Stomatocytes Few 03/05/17 07:03 Helmet Cells Not Reportable 03/16/17 06:02 [place] Bodies Not Reportable 03/16/17 06:02 [place] Rings Not Reportable 03/16/17 06:02 Dave Cells Not Reportable 03/16/17 06:02 Bite Cells Not Reportable 03/16/17 06:02 Crenated Cell Not Reportable 03/16/17 06:02 Elliptocytes Not Reportable 03/16/17 06:02 Acanthocytes (Spur) Not Reportable 03/16/17 06:02 Rouleaux Not Reportable 03/16/17 06:02 Hemoglobin C Crystals Not Reportable 03/16/17 06:02 Schistocytes Not Reportable 03/16/17 06:02 Malaria parasites Not Reportable 03/16/17 06:02 Nishant Bodies Not Reportable 03/16/17 06:02 Hem Pathologist Commnt No 03/16/17 06:02 PT 14.3 Sec. (12.2-14.9) 02/26/17 23:40 INR 1.12 (0.87-1.13) 02/26/17 23:40 APTT 29.8 Sec. (24.2-36.6) 02/26/17 23:40 Sodium 140 mmol/L (137-145) 03/16/17 05:59 Potassium 4.6 mmol/L (3.6-5.0) 03/16/17 05:59 Chloride 92.3 mmol/L (98-107) L 03/16/17 05:59 Carbon Dioxide 34 mmol/L (22-30) H 03/16/17 05:59 Anion Gap 18 mmol/L 03/16/17 05:59 BUN 44 mg/dL (9-20) H 03/16/17 05:59 Creatinine 1.1 mg/dL (0.8-1.5) 03/16/17 05:59 Estimated GFR > 60 ml/min 03/16/17 05:59 BUN/Creatinine Ratio 40.00 % 03/16/17 05:59 Glucose 150 mg/dL (75-100) H 03/16/17 05:59 POC Glucose 148 (70-105) H 03/15/17 20:51 Calcium 9.3 mg/dL (8.4-10.2) 03/16/17 05:59 Phosphorus 4.60 mg/dL (2.5-4.5) H 03/06/17 04:50 Magnesium 1.80 mg/dL (1.7-2.3) 03/06/17 04:50 Total Bilirubin 0.90 mg/dL (0.1-1.2) 03/15/17 06:49 AST 41 units/L (5-40) H 03/15/17 06:49 ALT 35 units/L (7-56) 03/15/17 06:49 Alkaline Phosphatase 125 units/L (35-129) 03/15/17 06:49 Total Creatine Kinase 148 units/L (55-170) 02/27/17 13:08 CK-MB (CK-2) 4.7 ng/mL (0.0-4.0) H 02/27/17 13:08 CK-MB (CK-2) Rel Index 3.1 (0-4) 02/27/17 13:08 Troponin T < 0.010 ng/mL (0.00-0.029) 02/27/17 13:08 Total Protein 7.9 g/dL (6.3-8.2) 03/15/17 06:49 Albumin 3.0 g/dL (3.9-5) L 03/15/17 06:49 Albumin/Globulin Ratio 0.6 % 03/15/17 06:49 TSH 1.480 mlU/mL (0.270-4.200) 02/26/17 23:40 Free T4 1.16 ng/dL (0.76-1.46) 02/26/17 23:40 Urine Color Yellow (Yellow) 03/03/17 10:38 Urine Turbidity Clear (Clear) 03/03/17 10:38 Urine pH 5.0 (5.0-7.0) 03/03/17 10:38 Ur Specific [place] 1.012 (1.003-1.030) 03/03/17 10:38 Urine Protein <15 mg/dl mg/dL (Negative) 03/03/17 10:38 Urine Glucose (UA) Neg mg/dL (Negative) 03/03/17 10:38 Urine Ketones Neg mg/dL (Negative) 03/03/17 10:38 Urine Blood Lg (Negative) 03/03/17 10:38 Urine Nitrite Neg (Negative) 03/03/17 10:38 Urine Bilirubin Neg (Negative) 03/03/17 10:38 Urine Urobilinogen < 2.0 mg/dL (<2.0) 03/03/17 10:38 Ur Leukocyte Esterase Tr (Negative) 03/03/17 10:38 Urine WBC (Auto) 5.0 /HPF (0.0-6.0) 03/03/17 10:38 Urine RBC (Auto) 51.0 /HPF (0.0-6.0) 03/03/17 10:38 Urine Mucus Few /HPF 03/03/17 10:38 Plasma/Serum Alcohol 0.24 gm% (0-0.07) H 02/26/17 23:40
--- NOTE | 2017-03-16 12:41 | XRay Report ---
CHEST ONE VIEW INDICATION: Leukocytosis. COMPARISON: 03/02/2017. FINDINGS: Portable, single, frontal chest radiograph demonstrates normal cardiomediastinal silhouette. Clear lungs. Few aortic atherosclerotic calcifications. Stable old right rib deformities in this patient with known subacute left rib fractures. Extrinsic EKG leads. CONCLUSION: No acute disease in the chest. Thank you for the opportunity to participate in this patient's care.
[2017-03-16] MEDS: TOPROL XL PO SCH (16:44)
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
[2017-03-16] MEDS: LOVENOX SUB-Q SCH (22:38)
[2017-03-17] MEDS: DILAUDID IV PRN ×2 (01:49→19:53)
[2017-03-17] MEDS: NOVOLOG SUB-Q SCH ×4 (07:38→22:53)
[2017-03-17 08:17] LABS: Basophils % (Auto) 0.7 % (0.0-1.8); Hematocrit 47.5 % (35.5-45.6); Hemoglobin 15.6 gm/dl (11.8-15.2); Mean Corpuscular HGB Conc 33 % (32-34); Mean Corpuscular Hemoglobin 33 pg (28-32); Mean Corpuscular Volume 99 fl (84-94); Platelet Count 326 K/mm3 (140-440); Red Blood Count 4.81 M/mm3 (3.65-5.03); Red Cell Distribution Width 14.5 % (13.2-15.2); White Blood Count 16.6 K/mm3 (4.5-11.0)
[2017-03-17 08:44] LABS: Anion Gap 20 mmol/L; BUN/Creatinine Ratio 38.75; Blood Urea Nitrogen 31 mg/dL (9-20); Calcium 9.8 mg/dL (8.4-10.2); Carbon Dioxide 35 mmol/L (22-30); Chloride 93.3 mmol/L (98-107); Glucose 132 mg/dL (75-100); Potassium 4.2 mmol/L (3.6-5.0); Sodium 144 mmol/L (137-145)
[2017-03-17] MEDS: VITAMIN B-1 PO SCH (09:42)
[2017-03-17] MEDS: FOLVITE PO SCH (09:42)
[2017-03-17] MEDS: LASIX IV SCH (09:42)
[2017-03-17] MEDS: PROTONIX PO SCH (09:42)
[2017-03-17] MEDS: TOPROL XL PO SCH (09:42)
[2017-03-17] MEDS: CORDARONE PO SCH ×2 (09:42→22:14)
--- NOTE | 2017-03-17 18:01 | Progress Note ---
Assessment and Plan - Patient Problems (1) Atrial fibrillation with RVR Current Visit: Yes Status: Acute Plan to address problem: Patient rate now very well controlled. Received amiodarone 200 mg daily and Lopressor. We'll change to this medication. Patient not on anticoagulation secondary to medicinal noncompliance. (2) Contusion of rib on left side Current Visit: Yes Status: Acute Qualifiers: Encounter type: subsequent encounter Qualified Code(s): S20.212D - Contusion of left front wall of thorax, subsequent encounter Plan to address problem: Pain control with contusion. Patient not able to express this. (3) Alcohol abuse Current Visit: Yes Status: Chronic Plan to address problem: Continue CIWA protocol. 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 Will continue thiamine avoid benzodiazepine 0 possible. Patient will most likely need placement. History Interval history: At present patient does not appear to be answering questions really well. Patient speaking barely audible. Mumbling. History consistent with Wernicke Korsakoff syndrome. Agitated and restraints. Hospitalist Physical - Constitutional Vitals: Temp Pulse Resp BP Pulse Ox 98.2 F 99 H 20 135/90 93 03/17/17 17:00 03/17/17 17:00 03/17/17 17:00 03/17/17 17:00 03/17/17 17:00 General appearance: Present: no acute distress, mild distress, other - EENT Eyes: Present: PERRL, EOM intact - Neck Neck: Present: supple, normal ROM - Respiratory Respiratory: bilateral: CTA - Cardiovascular Rhythm: regular Heart Sounds: Present: S1 & S2 - Extremities Extremities: no ischemia, pulses intact, No edema, normal temperature, normal color Peripheral Pulses: within normal limits - Abdominal General gastrointestinal: soft, non-tender, normal bowel sounds, other (obese), no hypoactive bowel sounds - Integumentary Integumentary: Present: clear, warm, dry - Psychiatric Psychiatric: agitated, depressed - Neurologic Neurologic: focal deficits Results - Labs CBC & Chem 7: 03/17/17 07:06 03/17/17 07:06 Labs: Laboratory Last Values WBC 16.6 K/mm3 (4.5-11.0) H 03/17/17 07:06 RBC 4.81 M/mm3 (3.65-5.03) 03/17/17 07:06 Hgb 15.6 gm/dl (11.8-15.2) H 03/17/17 07:06 Hct 47.5 % (35.5-45.6) H 03/17/17 07:06 MCV 99 fl (84-94) H 03/17/17 07:06 MCH 33 pg (28-32) H 03/17/17 07:06 MCHC 33 % (32-34) 03/17/17 07:06 RDW 14.5 % (13.2-15.2) 03/17/17 07:06 Plt Count 326 K/mm3 (140-440) 03/17/17 07:06 Lymph % (Auto) 8.4 % (13.4-35.0) L 03/17/17 07:06 [place] % (Auto) 8.1 % (0.0-7.3) H 03/17/17 07:06 Eos % (Auto) 1.0 % (0.0-4.3) 03/17/17 07:06 Baso % (Auto) 0.7 % (0.0-1.8) 03/17/17 07:06 Lymph # 1.4 K/mm3 (1.2-5.4) 03/17/17 07:06 [place] # 1.3 K/mm3 (0.0-0.8) H 03/17/17 07:06 Eos # 0.2 K/mm3 (0.0-0.4) 03/17/17 07:06 Baso # 0.1 K/mm3 (0.0-0.1) 03/17/17 07:06 Add Manual Diff Complete 03/16/17 06:02 Total Counted 100 03/16/17 06:02 Seg Neutrophils % 81.8 % (40.0-70.0) H 03/17/17 07:06 Seg Neuts % (Manual) 92.0 % (40.0-70.0) H 03/16/17 06:02 Band Neutrophils % 1.0 % 03/16/17 06:02 Lymphocytes % (Manual) 4.0 % (13.4-35.0) L 03/16/17 06:02 Reactive Lymphs % (Man) 0 % 03/16/17 06:02 Monocytes % (Manual) 3.0 % (0.0-7.3) 03/16/17 06:02 Eosinophils % (Manual) 0 % (0.0-4.3) 03/16/17 06:02 Basophils % (Manual) 0 % (0.0-1.8) 03/16/17 06:02 Metamyelocytes % 0 % 03/16/17 06:02 Myelocytes % 0 % 03/16/17 06:02 Promyelocytes % 0 % 03/16/17 06:02 Blast Cells % 0 % 03/16/17 06:02 Nucleated RBC % Not Reportable 03/16/17 06:02 Seg Neutrophils # 13.6 K/mm3 (1.8-7.7) H 03/17/17 07:06 Seg Neutrophils # Man 19.2 K/mm3 (1.8-7.7) H 03/16/17 06:02 Band Neutrophils # 0.2 K/mm3 03/16/17 06:02 Lymphocytes # (Manual) 0.8 K/mm3 (1.2-5.4) L 03/16/17 06:02 Abs React Lymphs (Man) 0.0 K/mm3 03/16/17 06:02 Monocytes # (Manual) 0.6 K/mm3 (0.0-0.8) 03/16/17 06:02 Eosinophils # (Manual) 0.0 K/mm3 (0.0-0.4) 03/16/17 06:02 Basophils # (Manual) 0.0 K/mm3 (0.0-0.1) 03/16/17 06:02 Metamyelocytes # 0.0 K/mm3 03/16/17 06:02 Myelocytes # 0.0 K/mm3 03/16/17 06:02 Promyelocytes # 0.0 K/mm3 03/16/17 06:02 Blast Cells # 0.0 K/mm3 03/16/17 06:02 WBC Morphology Not Reportable 03/16/17 06:02 Hypersegmented Neuts Not Reportable 03/16/17 06:02 Hyposegmented Neuts Not Reportable 03/16/17 06:02 Hypogranular Neuts Not Reportable 03/16/17 06:02 Smudge Cells Not Reportable 03/16/17 06:02 Toxic Granulation Not Reportable 03/16/17 06:02 Toxic Vacuolation Not Reportable 03/16/17 06:02 Dohle Bodies Not Reportable 03/16/17 06:02 Pelger-Huet Anomaly Not Reportable 03/16/17 06:02 Marco Rods Not Reportable 03/16/17 06:02 Platelet Estimate Appears normal 03/16/17 06:02 Clumped Platelets Not Reportable 03/16/17 06:02 Plt Clumps, EDTA Not Reportable 03/16/17 06:02 Large Platelets Not Reportable 03/16/17 06:02 Giant Platelets Not Reportable 03/16/17 06:02 Platelet Satelliting Not Reportable 03/16/17 06:02 Plt Morphology Comment Not Reportable 03/16/17 06:02 RBC Morphology Normal 03/16/17 06:02 Dimorphic RBCs Not Reportable 03/16/17 06:02 Polychromasia Not Reportable 03/16/17 06:02 Hypochromasia Not Reportable 03/16/17 06:02 Poikilocytosis Not Reportable 03/16/17 06:02 Anisocytosis Not Reportable 03/16/17 06:02 Microcytosis Not Reportable 03/16/17 06:02 Macrocytosis Not Reportable 03/16/17 06:02 Spherocytes Not Reportable 03/16/17 06:02 Pappenheimer Bodies Not Reportable 03/16/17 06:02 Sickle Cells Not Reportable 03/16/17 06:02 Target Cells Not Reportable 03/16/17 06:02 Tear Drop Cells Not Reportable 03/16/17 06:02 Ovalocytes Not Reportable 03/16/17 06:02 Stomatocytes Few 03/05/17 07:03 Helmet Cells Not Reportable 03/16/17 06:02 [place] Bodies Not Reportable 03/16/17 06:02 [place] Rings Not Reportable 03/16/17 06:02 Dave Cells Not Reportable 03/16/17 06:02 Bite Cells Not Reportable 03/16/17 06:02 Crenated Cell Not Reportable 03/16/17 06:02 Elliptocytes Not Reportable 03/16/17 06:02 Acanthocytes (Spur) Not Reportable 03/16/17 06:02 Rouleaux Not Reportable 03/16/17 06:02 Hemoglobin C Crystals Not Reportable 03/16/17 06:02 Schistocytes Not Reportable 03/16/17 06:02 Malaria parasites Not Reportable 03/16/17 06:02 Nishant Bodies Not Reportable 03/16/17 06:02 Hem Pathologist Commnt No 03/16/17 06:02 PT 14.3 Sec. (12.2-14.9) 02/26/17 23:40 INR 1.12 (0.87-1.13) 02/26/17 23:40 APTT 29.8 Sec. (24.2-36.6) 02/26/17 23:40 Sodium 144 mmol/L (137-145) 03/17/17 07:06 Potassium 4.2 mmol/L (3.6-5.0) 03/17/17 07:06 Chloride 93.3 mmol/L (98-107) L 03/17/17 07:06 Carbon Dioxide 35 mmol/L (22-30) H 03/17/17 07:06 Anion Gap 20 mmol/L 03/17/17 07:06 BUN 31 mg/dL (9-20) H 03/17/17 07:06 Creatinine 0.8 mg/dL (0.8-1.5) 03/17/17 07:06 Estimated GFR > 60 ml/min 03/17/17 07:06 BUN/Creatinine Ratio 38.75 % 03/17/17 07:06 Glucose 132 mg/dL (75-100) H 03/17/17 07:06 POC Glucose 105 (70-105) 03/17/17 16:38 Lactic Acid 1.50 mmol/L (0.7-2.0) 03/16/17 13:37 Calcium 9.8 mg/dL (8.4-10.2) 03/17/17 07:06 Phosphorus 4.60 mg/dL (2.5-4.5) H 03/06/17 04:50 Magnesium 1.80 mg/dL (1.7-2.3) 03/06/17 04:50 Total Bilirubin 0.90 mg/dL (0.1-1.2) 03/15/17 06:49 AST 41 units/L (5-40) H 03/15/17 06:49 ALT 35 units/L (7-56) 03/15/17 06:49 Alkaline Phosphatase 125 units/L (35-129) 03/15/17 06:49 Total Creatine Kinase 148 units/L (55-170) 02/27/17 13:08 CK-MB (CK-2) 4.7 ng/mL (0.0-4.0) H 02/27/17 13:08 CK-MB (CK-2) Rel Index 3.1 (0-4) 02/27/17 13:08 Troponin T < 0.010 ng/mL (0.00-0.029) 02/27/17 13:08 Total Protein 7.9 g/dL (6.3-8.2) 03/15/17 06:49 Albumin 3.0 g/dL (3.9-5) L 03/15/17 06:49 Albumin/Globulin Ratio 0.6 % 03/15/17 06:49 TSH 1.480 mlU/mL (0.270-4.200) 02/26/17 23:40 Free T4 1.16 ng/dL (0.76-1.46) 02/26/17 23:40 Urine Color Yellow (Yellow) 03/03/17 10:38 Urine Turbidity Clear (Clear) 03/03/17 10:38 Urine pH 5.0 (5.0-7.0) 03/03/17 10:38 Ur Specific [place] 1.012 (1.003-1.030) 03/03/17 10:38 Urine Protein <15 mg/dl mg/dL (Negative) 03/03/17 10:38 Urine Glucose (UA) Neg mg/dL (Negative) 03/03/17 10:38 Urine Ketones Neg mg/dL (Negative) 03/03/17 10:38 Urine Blood Lg (Negative) 03/03/17 10:38 Urine Nitrite Neg (Negative) 03/03/17 10:38 Urine Bilirubin Neg (Negative) 03/03/17 10:38 Urine Urobilinogen < 2.0 mg/dL (<2.0) 03/03/17 10:38 Ur Leukocyte Esterase Tr (Negative) 03/03/17 10:38 Urine WBC (Auto) 5.0 /HPF (0.0-6.0) 03/03/17 10:38 Urine RBC (Auto) 51.0 /HPF (0.0-6.0) 03/03/17 10:38 Urine Mucus Few /HPF 03/03/17 10:38 Plasma/Serum Alcohol 0.24 gm% (0-0.07) H 02/26/17 23:40
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
[2017-03-17] MEDS: LOVENOX SUB-Q SCH (22:13)
[2017-03-17] MEDS: TYLENOL PO PRN (22:14)
[2017-03-18] MEDS ORDERED: PROVENTIL IH ONE ×3 (03:39→04:00)
[2017-03-18] MEDS ORDERED: LASIX IV ONE (04:12)
[2017-03-18] MEDS: DILAUDID IV PRN (05:53)
[2017-03-18 05:57] LABS: ISTAT Base Excess 17; ISTAT HCO3 42.4; ISTAT PCO2 72.9 (35-45); ISTAT PH 7.372 (7.35-7.45); ISTAT PO2 168 (80-105); ISTAT SO2 99; ISTAT TCO2 45
[2017-03-18 07:16] LABS: Hematocrit 49.3 % (35.5-45.6); Hemoglobin 16.5 gm/dl (11.8-15.2); Mean Corpuscular HGB Conc 33 % (32-34); Mean Corpuscular Hemoglobin 33 pg (28-32); Mean Corpuscular Volume 99 fl (84-94); Platelet Count 376 K/mm3 (140-440); Red Blood Count 4.99 M/mm3 (3.65-5.03); Red Cell Distribution Width 14.4 % (13.2-15.2); White Blood Count 15.8 K/mm3 (4.5-11.0)
--- NOTE | 2017-03-18 07:27 | XRay Report ---
AP CHEST: HISTORY: Shortness of breath AP view of the chest demonstrates a normal mediastinal and cardiac contour with clear lungs and normal bony and soft tissue structures. Chronic appearing right rib deformities are noted. No significant change since 03/16/17. IMPRESSION: Unremarkable AP chest.
[2017-03-18 07:36] LABS: Anion Gap 18 mmol/L; BUN/Creatinine Ratio 26.36; Blood Urea Nitrogen 29 mg/dL (9-20); Calcium 9.8 mg/dL (8.4-10.2); Carbon Dioxide 37 mmol/L (22-30); Chloride 95.3 mmol/L (98-107); Glucose 155 mg/dL (75-100); Potassium 3.5 mmol/L (3.6-5.0); Sodium 147 mmol/L (137-145)
[2017-03-18] MEDS: NOVOLOG SUB-Q SCH ×4 (08:15→22:18)
[2017-03-18 08:35] LABS: Blastocytes % (Manual) 0 %; Diff Status Complete; RBC Morphology Normal
[2017-03-18] MEDS: LASIX IV SCH (10:55)
[2017-03-18] MEDS: PROTONIX PO SCH (11:00)
[2017-03-18] MEDS: VITAMIN B-1 PO SCH (11:00)
[2017-03-18] MEDS: FOLVITE PO SCH (11:00)
[2017-03-18] MEDS: TOPROL XL PO SCH (11:00)
[2017-03-18] MEDS ORDERED: CARDIZEM IV ONE (11:13)
[2017-03-18] MEDS: DUONEB *Not for PRN Use IH SCH ×3 (11:32→20:46)
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
[2017-03-18 11:41] LABS: ISTAT Base Excess 15; ISTAT HCO3 37.6; ISTAT PO2 60 (80-105); ISTAT SO2 93; ISTAT TCO2 39
--- NOTE | 2017-03-18 12:58 | Event Note ---
Date: 03/18/17 Pt re-evaluated - remains with AFib RVR, HR 160s - 180s, BPs stable, pt increasingly agitated. Tx to ICU. Initiate cardizem gtt @ 15mg/hr. Domenico GOLDMAN NP / DR. LEI
--- NOTE | 2017-03-18 13:16 | Progress Note ---
Assessment and Plan - Patient Problems (1) Atrial fibrillation with RVR Current Visit: Yes Status: Acute Plan to address problem: Patient atrial fibrillation has returned. Rate uncontrolled patient more hypoxic and unresponsive.. We'll add magnesium but initial electrolytes showed no evidence of etiology of A. fib. Could be potentially secondary to pulmonary event. Patient's chest x-ray is clear. We'll rule out PE CT scan angiogram when patient stable. Also bilateral lower extremity ultrasound. Cardizem drip intensive care. (2) Contusion of rib on left side Current Visit: Yes Status: Acute Qualifiers: Encounter type: subsequent encounter Qualified Code(s): S20.212D - Contusion of left front wall of thorax, subsequent encounter Plan to address problem: Pain control with contusion. Patient not able to express this. (3) Alcohol abuse Current Visit: Yes Status: Chronic Plan to address problem: Patient alcohol abuse. Has really been out of the window for withdrawal however his current condition seemed like he could be going through withdrawals of some sort. 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 Will continue thiamine avoid benzodiazepine 0 possible. Patient will most likely need placement. (5) Acute respiratory failure Current Visit: Yes Status: Acute Qualifiers: Respiratory failure complication: R Plan to address problem: Acute respiratory failure currently on BiPAP. We'll obtain pulmonology consult. We'll add empiric anabiotic's now Zosyn. IV. History Interval history: Patient this a.m. Hospital course complicated by atrial fibrillation and hypoxia. Patient placed on BiPAP with limited improvement in sats. Patient then transferred to the ICU for Cardizem drip. Patient had poor response to adenosine was stable with metoprolol initially but went into A. fib today. Hospitalist Physical - Constitutional Vitals: Temp Pulse Resp BP Pulse Ox 98.4 F 90 21 170/63 93 03/18/17 08:00 03/18/17 11:24 03/18/17 11:24 03/18/17 08:00 03/18/17 11:24 General appearance: Present: no acute distress, mild distress, other - EENT ENT: other (patient keeps eyes closed confused has done that on prior admission. ) - Neck Neck: Present: supple, normal ROM - Respiratory Respiratory: bilateral: diminished, wheezing - Cardiovascular Rhythm: irregularly irregular (tachycardic from 160) - Extremities Extremities: no ischemia, No edema Extremity abnormal: other (confused lethargic) Peripheral Pulses: within normal limits - Abdominal General gastrointestinal: soft, distended, other (obese) - Psychiatric Psychiatric: agitated, other (confused lethargic unable to answer questions appropriately) - Neurologic Neurologic: focal deficits, moves all extremities Results - Labs CBC & Chem 7: 03/18/17 06:15 03/18/17 06:15 Labs: Laboratory Last Values WBC 15.8 K/mm3 (4.5-11.0) H 03/18/17 06:15 RBC 4.99 M/mm3 (3.65-5.03) 03/18/17 06:15 Hgb 16.5 gm/dl (11.8-15.2) H 03/18/17 06:15 Hct 49.3 % (35.5-45.6) H 03/18/17 06:15 MCV 99 fl (84-94) H 03/18/17 06:15 MCH 33 pg (28-32) H 03/18/17 06:15 MCHC 33 % (32-34) 03/18/17 06:15 RDW 14.4 % (13.2-15.2) 03/18/17 06:15 Plt Count 376 K/mm3 (140-440) 03/18/17 06:15 Lymph % (Auto) 8.4 % (13.4-35.0) L 03/17/17 07:06 [place] % (Auto) 8.1 % (0.0-7.3) H 03/17/17 07:06 Eos % (Auto) 1.0 % (0.0-4.3) 03/17/17 07:06 Baso % (Auto) 0.7 % (0.0-1.8) 03/17/17 07:06 Lymph # 1.4 K/mm3 (1.2-5.4) 03/17/17 07:06 [place] # 1.3 K/mm3 (0.0-0.8) H 03/17/17 07:06 Eos # 0.2 K/mm3 (0.0-0.4) 03/17/17 07:06 Baso # 0.1 K/mm3 (0.0-0.1) 03/17/17 07:06 Add Manual Diff Complete 03/18/17 06:15 Total Counted 100 03/18/17 06:15 Seg Neutrophils % 81.8 % (40.0-70.0) H 03/17/17 07:06 Seg Neuts % (Manual) 88.0 % (40.0-70.0) H 03/18/17 06:15 Band Neutrophils % 1.0 % 03/18/17 06:15 Lymphocytes % (Manual) 2.0 % (13.4-35.0) L 03/18/17 06:15 Reactive Lymphs % (Man) 0 % 03/18/17 06:15 Monocytes % (Manual) 8.0 % (0.0-7.3) H 03/18/17 06:15 Eosinophils % (Manual) 1.0 % (0.0-4.3) 03/18/17 06:15 Basophils % (Manual) 0 % (0.0-1.8) 03/16/17 06:02 Metamyelocytes % 0 % 03/18/17 06:15 Myelocytes % 0 % 03/18/17 06:15 Promyelocytes % 0 % 03/18/17 06:15 Blast Cells % 0 % 03/18/17 06:15 Nucleated RBC % Not Reportable 03/18/17 06:15 Seg Neutrophils # 13.6 K/mm3 (1.8-7.7) H 03/17/17 07:06 Seg Neutrophils # Man 13.9 K/mm3 (1.8-7.7) H 03/18/17 06:15 Band Neutrophils # 0.2 K/mm3 03/18/17 06:15 Lymphocytes # (Manual) 0.3 K/mm3 (1.2-5.4) L 03/18/17 06:15 Abs React Lymphs (Man) 0.0 K/mm3 03/18/17 06:15 Monocytes # (Manual) 1.3 K/mm3 (0.0-0.8) H 03/18/17 06:15 Eosinophils # (Manual) 0.2 K/mm3 (0.0-0.4) 03/18/17 06:15 Basophils # (Manual) 0.0 K/mm3 (0.0-0.1) 03/18/17 06:15 Metamyelocytes # 0.0 K/mm3 03/18/17 06:15 Myelocytes # 0.0 K/mm3 03/18/17 06:15 Promyelocytes # 0.0 K/mm3 03/18/17 06:15 Blast Cells # 0.0 K/mm3 03/18/17 06:15 WBC Morphology Not Reportable 03/18/17 06:15 Hypersegmented Neuts Not Reportable 03/18/17 06:15 Hyposegmented Neuts Not Reportable 03/18/17 06:15 Hypogranular Neuts Not Reportable 03/18/17 06:15 Smudge Cells Not Reportable 03/18/17 06:15 Toxic Granulation Not Reportable 03/18/17 06:15 Toxic Vacuolation Not Reportable 03/18/17 06:15 Dohle Bodies Not Reportable 03/18/17 06:15 Pelger-Huet Anomaly Not Reportable 03/18/17 06:15 Marco Rods Not Reportable 03/18/17 06:15 Platelet Estimate Appears normal 03/18/17 06:15 Clumped Platelets Not Reportable 03/18/17 06:15 Plt Clumps, EDTA Not Reportable 03/18/17 06:15 Large Platelets Not Reportable 03/18/17 06:15 Giant Platelets Not Reportable 03/18/17 06:15 Platelet Satelliting Not Reportable 03/18/17 06:15 Plt Morphology Comment Not Reportable 03/18/17 06:15 RBC Morphology Normal 03/18/17 06:15 Dimorphic RBCs Not Reportable 03/18/17 06:15 Polychromasia Not Reportable 03/18/17 06:15 Hypochromasia Not Reportable 03/18/17 06:15 Poikilocytosis Not Reportable 03/18/17 06:15 Anisocytosis Not Reportable 03/18/17 06:15 Microcytosis Not Reportable 03/18/17 06:15 Macrocytosis Not Reportable 03/18/17 06:15 Spherocytes Not Reportable 03/18/17 06:15 Pappenheimer Bodies Not Reportable 03/18/17 06:15 Sickle Cells Not Reportable 03/18/17 06:15 Target Cells Not Reportable 03/18/17 06:15 Tear Drop Cells Not Reportable 03/18/17 06:15 Ovalocytes Not Reportable 03/18/17 06:15 Stomatocytes Few 03/05/17 07:03 Helmet Cells Not Reportable 03/18/17 06:15 [place] Bodies Not Reportable 03/18/17 06:15 [place] Rings Not Reportable 03/18/17 06:15 [place] Cells Not Reportable 03/18/17 06:15 Bite Cells Not Reportable 03/18/17 06:15 Crenated Cell Not Reportable 03/18/17 06:15 Elliptocytes Not Reportable 03/18/17 06:15 Acanthocytes (Spur) Not Reportable 03/18/17 06:15 Rouleaux Not Reportable 03/18/17 06:15 Hemoglobin C Crystals Not Reportable 03/18/17 06:15 Schistocytes Not Reportable 03/18/17 06:15 Malaria parasites Not Reportable 03/18/17 06:15 Nishant Bodies Not Reportable 03/18/17 06:15 Hem Pathologist Commnt No 03/18/17 06:15 PT 14.3 Sec. (12.2-14.9) 02/26/17 23:40 INR 1.12 (0.87-1.13) 02/26/17 23:40 APTT 29.8 Sec. (24.2-36.6) 02/26/17 23:40 POC ABG pH 7.530 (7.35-7.45) H 03/18/17 11:24 POC ABG pCO2 45.0 (35-45) 03/18/17 11:24 POC ABG pO2 60 (80-105) L 03/18/17 11:24 POC ABG HCO3 37.6 03/18/17 11:24 POC ABG Total CO2 39 03/18/17 11:24 POC ABG O2 Sat 93 03/18/17 11:24 POC ABG Base Excess 15 03/18/17 11:24 FiO2 35 % 03/18/17 11:24 Sodium 147 mmol/L (137-145) H 03/18/17 06:15 Potassium 3.5 mmol/L (3.6-5.0) L 03/18/17 06:15 Chloride 95.3 mmol/L (98-107) L 03/18/17 06:15 Carbon Dioxide 37 mmol/L (22-30) H 03/18/17 06:15 Anion Gap 18 mmol/L 03/18/17 06:15 BUN 29 mg/dL (9-20) H 03/18/17 06:15 Creatinine 1.1 mg/dL (0.8-1.5) 03/18/17 06:15 Estimated GFR > 60 ml/min 03/18/17 06:15 BUN/Creatinine Ratio 26.36 % 03/18/17 06:15 Glucose 155 mg/dL (75-100) H 03/18/17 06:15 POC Glucose 176 (70-105) H 03/18/17 11:31 Lactic Acid 1.50 mmol/L (0.7-2.0) 03/16/17 13:37 Calcium 9.8 mg/dL (8.4-10.2) 03/18/17 06:15 Phosphorus 4.60 mg/dL (2.5-4.5) H 03/06/17 04:50 Magnesium 1.80 mg/dL (1.7-2.3) 03/06/17 04:50 Total Bilirubin 0.90 mg/dL (0.1-1.2) 03/15/17 06:49 AST 41 units/L (5-40) H 03/15/17 06:49 ALT 35 units/L (7-56) 03/15/17 06:49 Alkaline Phosphatase 125 units/L (35-129) 03/15/17 06:49 Total Creatine Kinase 148 units/L (55-170) 02/27/17 13:08 CK-MB (CK-2) 4.7 ng/mL (0.0-4.0) H 02/27/17 13:08 CK-MB (CK-2) Rel Index 3.1 (0-4) 02/27/17 13:08 Troponin T < 0.010 ng/mL (0.00-0.029) 02/27/17 13:08 Total Protein 7.9 g/dL (6.3-8.2) 03/15/17 06:49 Albumin 3.0 g/dL (3.9-5) L 03/15/17 06:49 Albumin/Globulin Ratio 0.6 % 03/15/17 06:49 TSH 1.480 mlU/mL (0.270-4.200) 02/26/17 23:40 Free T4 1.16 ng/dL (0.76-1.46) 02/26/17 23:40 Urine Color Yellow (Yellow) 03/03/17 10:38 Urine Turbidity Clear (Clear) 03/03/17 10:38 Urine pH 5.0 (5.0-7.0) 03/03/17 10:38 Ur Specific [place] 1.012 (1.003-1.030) 03/03/17 10:38 Urine Protein <15 mg/dl mg/dL (Negative) 03/03/17 10:38 Urine Glucose (UA) Neg mg/dL (Negative) 03/03/17 10:38 Urine Ketones Neg mg/dL (Negative) 03/03/17 10:38 Urine Blood Lg (Negative) 03/03/17 10:38 Urine Nitrite Neg (Negative) 03/03/17 10:38 Urine Bilirubin Neg (Negative) 03/03/17 10:38 Urine Urobilinogen < 2.0 mg/dL (<2.0) 03/03/17 10:38 Ur Leukocyte Esterase Tr (Negative) 03/03/17 10:38 Urine WBC (Auto) 5.0 /HPF (0.0-6.0) 03/03/17 10:38 Urine RBC (Auto) 51.0 /HPF (0.0-6.0) 03/03/17 10:38 Urine Mucus Few /HPF 03/03/17 10:38 Plasma/Serum Alcohol 0.24 gm% (0-0.07) H 02/26/17 23:40 - Imaging and Cardiology Abdominal x-ray: image reviewed
[2017-03-18 14:42] LABS: Albumin/Globulin Ratio 0.7 %; BUN/Creatinine Ratio 20.62; Calcium 9.5 mg/dL (8.4-10.2); Chloride 94.5 mmol/L (98-107); Potassium 4.2 mmol/L (3.6-5.0); Total Protein 7.6 g/dL (6.3-8.2)
[2017-03-18] MEDS: CARDIZEM/D5W 100MG/100ML 100 MG/100 ML BAG IV SCH ×2 (14:42→19:50)
[2017-03-18] MEDS: ZOSYN/NS 4.5GM/100ML 4.5 GM/100 ML VIAL IV SCH ×2 (15:00→22:18)
[2017-03-18] MEDS: ATIVAN IV PRN ×2 (15:29→22:18)
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
[2017-03-18] MEDS: HEPARIN/ 0.45% NACL-25,000 UNIT/500 ML 25,000 UNIT/500 ML BAG IV SCH (16:53)
[2017-03-18] MEDS: NACL 0.9% 1000 ML 1,000 ML IV SCH (17:00)
[2017-03-18] MEDS ORDERED: VANCOMYCIN PHARMACY TO DOSE IV SCH (17:00)
[2017-03-18] MEDS ORDERED: HEPARIN 10,000 UNITS/10 ML IV ONE (17:00)
[2017-03-18] MEDS: HALDOL IV PRN (17:33)
[2017-03-18 17:37] LABS: Hematocrit 46.4 % (35.5-45.6); Hemoglobin 15.4 gm/dl (11.8-15.2)
[2017-03-18] MEDS ORDERED: VANCOMYCIN 2,000 MG in NACL 0.9% 500 ML 500 ML IV SCH (18:00)
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
[2017-03-18 18:17] LABS: INR 1.4 (0.87-1.13)
[2017-03-18 18:18] LABS: Partial Thromboplastin Time 30.8 Sec. (24.2-36.6)
[2017-03-18] MEDS ORDERED: ATIVAN IV PRN (21:53)
[2017-03-19] MEDS: CARDIZEM/D5W 100MG/100ML 100 MG/100 ML BAG IV SCH ×4 (02:30→22:17)
[2017-03-19] MEDS: ATIVAN IV PRN ×4 (02:35→22:18)
[2017-03-19 04:21] LABS: Hematocrit 44.4 % (35.5-45.6); Hemoglobin 14.4 gm/dl (11.8-15.2); Mean Corpuscular HGB Conc 32 % (32-34); Mean Corpuscular Hemoglobin 32 pg (28-32); Mean Corpuscular Volume 98 fl (84-94); Platelet Count 277 K/mm3 (140-440); Red Blood Count 4.55 M/mm3 (3.65-5.03); Red Cell Distribution Width 14.5 % (13.2-15.2)
[2017-03-19 04:38] LABS: BUN/Creatinine Ratio 23.07; Calcium 8.7 mg/dL (8.4-10.2); Chloride 97.8 mmol/L (98-107); Potassium 3.4 mmol/L (3.6-5.0); White Blood Count 25.4 K/mm3 (4.5-11.0)
[2017-03-19 06:54] LABS: Basophils % (Manual) 0 % (0.0-1.8); Blastocytes % (Manual) 0 %; Diff Status Complete; Eosinophils % (Manual) 0 % (0.0-4.3); RBC Morphology Normal
[2017-03-19] MEDS: ZOSYN/NS 4.5GM/100ML 4.5 GM/100 ML VIAL IV SCH ×3 (07:00→22:18)
[2017-03-19] MEDS: HEPARIN/ 0.45% NACL-25,000 UNIT/500 ML 25,000 UNIT/500 ML BAG IV SCH ×4 (08:00→23:20)
[2017-03-19] MEDS: NOVOLOG SUB-Q SCH ×4 (08:21→22:38)
[2017-03-19] MEDS: DUONEB *Not for PRN Use IH SCH ×3 (08:35→19:58)
[2017-03-19] MEDS: NACL 0.9% 1000 ML 1,000 ML IV SCH ×2 (10:01→22:22)
[2017-03-19] MEDS ORDERED: MAGNESIUM SULFATE 2GM/50ML 2 GM/50 ML BAG IV ONE (10:30)
[2017-03-19] MEDS ORDERED: KCL 20MEQ/100ML 20 MEQ/100 ML BAG IV ONE (10:31)
[2017-03-19] MEDS: KCL 10MEQ/100ML 10 MEQ/100 ML BAG IV SCH ×2 (12:00→13:28)
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
[2017-03-19] MEDS: PROTONIX PO SCH (12:40)
[2017-03-19] MEDS: FOLVITE PO SCH (12:40)
[2017-03-19] MEDS: TOPROL XL PO SCH (12:41)
[2017-03-19] MEDS: VITAMIN B-1 PO SCH (12:41)
--- NOTE | 2017-03-19 13:10 | Progress Note ---
Assessment and Plan - Patient Problems (1) Atrial fibrillation with RVR Current Visit: Yes Status: Acute Plan to address problem: Patient A. fib rapid ventricular rate currently not on Coumadin anticoagulates secondary to noncompliance. Rate improved from 160-123 cardiology titrating Cardizem drip. (2) Contusion of rib on left side Current Visit: Yes Status: Acute Qualifiers: Encounter type: subsequent encounter Qualified Code(s): S20.212D - Contusion of left front wall of thorax, subsequent encounter Plan to address problem: Pain control with contusion. Patient not able to express this. (3) Alcohol abuse Current Visit: Yes Status: Chronic Plan to address problem: Still think patient appears to be going through withdrawals clinically. CIWA protocol has improved patient's symptoms. We'll also start patient on [place] to for nutrition he is not eating placed nutritional consult. 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 Will continue thiamine avoid benzodiazepine 0 possible. Patient will most likely need placement. (5) Acute respiratory failure Current Visit: Yes Status: Acute Qualifiers: Respiratory failure complication: R Plan to address problem: Still unable to wean off BiPAP some may be secondary to confusion. I don't see a lot clinically going on with his lungs chest x-ray was negative sounds good I think this may be more supratentorial than anything. History Interval history: Patient Hospital course complicated over p.m. by severe agitation and aggressive behavior. Patient was placed on C IW A protocol didn't respond. She remains encephalopathic somewhat agitated at present. Unable to wean off of BiPAP. Hospitalist Physical - Constitutional Vitals: Temp Pulse Resp BP Pulse Ox 102.1 F H 117 H 25 H 135/90 97 03/19/17 12:00 03/19/17 08:50 03/19/17 08:50 03/19/17 08:30 03/19/17 08:30 General appearance: Present: mild distress, other - EENT Eyes: Present: PERRL - Neck Neck: Present: supple, normal ROM - Respiratory Respiratory: bilateral: diminished, rhonchi (few) - Cardiovascular Rhythm: other Results - Labs CBC & Chem 7: 03/19/17 03:54 03/19/17 03:54 Labs: Laboratory Last Values WBC 25.4 K/mm3 (4.5-11.0) H 03/19/17 03:54 RBC 4.55 M/mm3 (3.65-5.03) 03/19/17 03:54 Hgb 14.4 gm/dl (11.8-15.2) 03/19/17 03:54 Hct 44.4 % (35.5-45.6) 03/19/17 03:54 MCV 98 fl (84-94) H 03/19/17 03:54 MCH 32 pg (28-32) 03/19/17 03:54 MCHC 32 % (32-34) 03/19/17 03:54 RDW 14.5 % (13.2-15.2) 03/19/17 03:54 Plt Count 277 K/mm3 (140-440) 03/19/17 03:54 Lymph % (Auto) 8.4 % (13.4-35.0) L 03/17/17 07:06 Crockett % (Auto) 8.1 % (0.0-7.3) H 03/17/17 07:06 Eos % (Auto) 1.0 % (0.0-4.3) 03/17/17 07:06 Baso % (Auto) 0.7 % (0.0-1.8) 03/17/17 07:06 Lymph # 1.4 K/mm3 (1.2-5.4) 03/17/17 07:06 Crockett # 1.3 K/mm3 (0.0-0.8) H 03/17/17 07:06 Eos # 0.2 K/mm3 (0.0-0.4) 03/17/17 07:06 Baso # 0.1 K/mm3 (0.0-0.1) 03/17/17 07:06 Add Manual Diff Complete 03/19/17 03:54 Total Counted 200 03/19/17 03:54 Seg Neutrophils % 81.8 % (40.0-70.0) H 03/17/17 07:06 Seg Neuts % (Manual) 83.0 % (40.0-70.0) H 03/19/17 03:54 Band Neutrophils % 4.5 % 03/19/17 03:54 Lymphocytes % (Manual) 4.5 % (13.4-35.0) L 03/19/17 03:54 Reactive Lymphs % (Man) 0 % 03/19/17 03:54 Monocytes % (Manual) 8.0 % (0.0-7.3) H 03/19/17 03:54 Eosinophils % (Manual) 0 % (0.0-4.3) 03/19/17 03:54 Basophils % (Manual) 0 % (0.0-1.8) 03/19/17 03:54 Metamyelocytes % 0 % 03/19/17 03:54 Myelocytes % 0 % 03/19/17 03:54 Promyelocytes % 0 % 03/19/17 03:54 Blast Cells % 0 % 03/19/17 03:54 Nucleated RBC % Not Reportable 03/19/17 03:54 Seg Neutrophils # 13.6 K/mm3 (1.8-7.7) H 03/17/17 07:06 Seg Neutrophils # Man 21.1 K/mm3 (1.8-7.7) H 03/19/17 03:54 Band Neutrophils # 1.1 K/mm3 03/19/17 03:54 Lymphocytes # (Manual) 1.1 K/mm3 (1.2-5.4) L 03/19/17 03:54 Abs React Lymphs (Man) 0.0 K/mm3 03/19/17 03:54 Monocytes # (Manual) 2.0 K/mm3 (0.0-0.8) H 03/19/17 03:54 Eosinophils # (Manual) 0.0 K/mm3 (0.0-0.4) 03/19/17 03:54 Basophils # (Manual) 0.0 K/mm3 (0.0-0.1) 03/19/17 03:54 Metamyelocytes # 0.0 K/mm3 03/19/17 03:54 Myelocytes # 0.0 K/mm3 03/19/17 03:54 Promyelocytes # 0.0 K/mm3 03/19/17 03:54 Blast Cells # 0.0 K/mm3 03/19/17 03:54 WBC Morphology Not Reportable 03/19/17 03:54 Hypersegmented Neuts Not Reportable 03/19/17 03:54 Hyposegmented Neuts Not Reportable 03/19/17 03:54 Hypogranular Neuts Not Reportable 03/19/17 03:54 Smudge Cells Not Reportable 03/19/17 03:54 Toxic Granulation Not Reportable 03/19/17 03:54 Toxic Vacuolation Not Reportable 03/19/17 03:54 Dohle Bodies Not Reportable 03/19/17 03:54 Pelger-Huet Anomaly Not Reportable 03/19/17 03:54 Marco Rods Not Reportable 03/19/17 03:54 Platelet Estimate Appears normal 03/19/17 03:54 Clumped Platelets Not Reportable 03/19/17 03:54 Plt Clumps, EDTA Not Reportable 03/19/17 03:54 Large Platelets Not Reportable 03/19/17 03:54 Giant Platelets Not Reportable 03/19/17 03:54 Platelet Satelliting Not Reportable 03/19/17 03:54 Plt Morphology Comment Not Reportable 03/19/17 03:54 RBC Morphology Normal 03/19/17 03:54 Dimorphic RBCs Not Reportable 03/19/17 03:54 Polychromasia Not Reportable 03/19/17 03:54 Hypochromasia Not Reportable 03/19/17 03:54 Poikilocytosis Not Reportable 03/19/17 03:54 Anisocytosis Not Reportable 03/19/17 03:54 Microcytosis Not Reportable 03/19/17 03:54 Macrocytosis Not Reportable 03/19/17 03:54 Spherocytes Not Reportable 03/19/17 03:54 Pappenheimer Bodies Not Reportable 03/19/17 03:54 Sickle Cells Not Reportable 03/19/17 03:54 Target Cells Not Reportable 03/19/17 03:54 Tear Drop Cells Not Reportable 03/19/17 03:54 Ovalocytes Not Reportable 03/19/17 03:54 Stomatocytes Few 03/05/17 07:03 Helmet Cells Not Reportable 03/19/17 03:54 [place]apstone Bodies Not Reportable 03/19/17 03:54 [place] Rings Not Reportable 03/19/17 03:54 Dave Cells Not Reportable 03/19/17 03:54 Bite Cells Not Reportable 03/19/17 03:54 Crenated Cell Not Reportable 03/19/17 03:54 Elliptocytes Not Reportable 03/19/17 03:54 Acanthocytes (Spur) Not Reportable 03/19/17 03:54 Rouleaux Not Reportable 03/19/17 03:54 Hemoglobin C Crystals Not Reportable 03/19/17 03:54 Schistocytes Not Reportable 03/19/17 03:54 Malaria parasites Not Reportable 03/19/17 03:54 Nishant Bodies Not Reportable 03/19/17 03:54 Hem Pathologist Commnt No 03/19/17 03:54 PT 17.1 Sec. (12.2-14.9) H 03/18/17 17:23 INR 1.40 (0.87-1.13) H 03/18/17 17:23 APTT 30.8 Sec. (24.2-36.6) 03/18/17 17:23 Heparin Anti-Xa Level 0.29 U.I./ml (0.3-0.7) L 03/19/17 06:55 POC ABG pH 7.530 (7.35-7.45) H 03/18/17 11:24 POC ABG pCO2 45.0 (35-45) 03/18/17 11:24 POC ABG pO2 60 (80-105) L 03/18/17 11:24 POC ABG HCO3 37.6 03/18/17 11:24 POC ABG Total CO2 39 03/18/17 11:24 POC ABG O2 Sat 93 03/18/17 11:24 POC ABG Base Excess 15 03/18/17 11:24 FiO2 35 % 03/18/17 11:24 Sodium 146 mmol/L (137-145) H 03/19/17 03:54 Potassium 3.4 mmol/L (3.6-5.0) L 03/19/17 03:54 Chloride 97.8 mmol/L (98-107) L 03/19/17 03:54 Carbon Dioxide 33 mmol/L (22-30) H 03/19/17 03:54 Anion Gap 19 mmol/L 03/19/17 03:54 BUN 30 mg/dL (9-20) H 03/19/17 03:54 Creatinine 1.3 mg/dL (0.8-1.5) 03/19/17 03:54 Estimated GFR 58 ml/min 03/19/17 03:54 BUN/Creatinine Ratio 23.07 % 03/19/17 03:54 Glucose 134 mg/dL (75-100) H 03/19/17 03:54 POC Glucose 167 (70-105) H 03/19/17 12:56 Lactic Acid 1.50 mmol/L (0.7-2.0) 03/16/17 13:37 Calcium 8.7 mg/dL (8.4-10.2) 03/19/17 03:54 Phosphorus 4.60 mg/dL (2.5-4.5) H 03/06/17 04:50 Magnesium 1.60 mg/dL (1.7-2.3) L 03/19/17 06:55 Total Bilirubin 1.00 mg/dL (0.1-1.2) 03/18/17 14:10 AST 28 units/L (5-40) 03/18/17 14:10 ALT 24 units/L (7-56) 03/18/17 14:10 Alkaline Phosphatase 117 units/L (35-129) 03/18/17 14:10 Total Creatine Kinase 148 units/L (55-170) 02/27/17 13:08 CK-MB (CK-2) 4.7 ng/mL (0.0-4.0) H 02/27/17 13:08 CK-MB (CK-2) Rel Index 3.1 (0-4) 02/27/17 13:08 Troponin T < 0.010 ng/mL (0.00-0.029) 02/27/17 13:08 Total Protein 7.6 g/dL (6.3-8.2) 03/18/17 14:10 Albumin 3.0 g/dL (3.9-5) L 03/18/17 14:10 Albumin/Globulin Ratio 0.7 % 03/18/17 14:10 TSH 1.480 mlU/mL (0.270-4.200) 02/26/17 23:40 Free T4 1.16 ng/dL (0.76-1.46) 02/26/17 23:40 Urine Color Yellow (Yellow) 03/03/17 10:38 Urine Turbidity Clear (Clear) 03/03/17 10:38 Urine pH 5.0 (5.0-7.0) 03/03/17 10:38 Ur Specific Carver 1.012 (1.003-1.030) 03/03/17 10:38 Urine Protein <15 mg/dl mg/dL (Negative) 03/03/17 10:38 Urine Glucose (UA) Neg mg/dL (Negative) 03/03/17 10:38 Urine Ketones Neg mg/dL (Negative) 03/03/17 10:38 Urine Blood Lg (Negative) 03/03/17 10:38 Urine Nitrite Neg (Negative) 03/03/17 10:38 Urine Bilirubin Neg (Negative) 03/03/17 10:38 Urine Urobilinogen < 2.0 mg/dL (<2.0) 03/03/17 10:38 Ur Leukocyte Esterase Tr (Negative) 03/03/17 10:38 Urine WBC (Auto) 5.0 /HPF (0.0-6.0) 03/03/17 10:38 Urine RBC (Auto) 51.0 /HPF (0.0-6.0) 03/03/17 10:38 Urine Mucus Few /HPF 03/03/17 10:38 Plasma/Serum Alcohol 0.24 gm% (0-0.07) H 02/26/17 23:40
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
[2017-03-19 15:55] LABS: ISTAT Base Excess 12; ISTAT HCO3 36.7; ISTAT PCO2 57.8 (35-45); ISTAT PH 7.411 (7.35-7.45); ISTAT PO2 71 (80-105); ISTAT SO2 94; ISTAT TCO2 38
[2017-03-19] MEDS: VANCOMYCIN/NS 1 GM/250 ML 1 GM/250 ML BAG IV SCH (16:05)
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
--- NOTE | 2017-03-19 18:27 | XRay Report ---
FINAL REPORT PROCEDURE: XR ABDOMEN 1V AP TECHNIQUE: Abdominal radiograph, single supine AP view. HISTORY: Dobhoff tube placement COMPARISON: No prior studies are available for comparison. FINDINGS: Bowel gas pattern:Nonobstructive. Masses or calcifications:None. Bony structures:No significant abnormality. Other:Feeding tube ends in the mid stomach. IMPRESSION: The feeding tube ends in the mid stomach
[2017-03-19] MEDS: HALDOL IV PRN (18:45)
[2017-03-19] MEDS: TYLENOL PO PRN (18:50)
[2017-03-20 03:52] LABS: Hematocrit 48.1 % (35.5-45.6); Hemoglobin 15.3 gm/dl (11.8-15.2)
[2017-03-20] MEDS: VANCOMYCIN/NS 1 GM/250 ML 1 GM/250 ML BAG IV SCH ×2 (03:59→16:55)
[2017-03-20] MEDS: CARDIZEM/D5W 100MG/100ML 100 MG/100 ML BAG IV SCH ×4 (04:36→23:47)
[2017-03-20] MEDS: ATIVAN IV PRN ×2 (05:10→06:18)
[2017-03-20] MEDS: ZOSYN/NS 4.5GM/100ML 4.5 GM/100 ML VIAL IV SCH ×3 (05:40→23:00)
[2017-03-20] MEDS: HALDOL IV PRN (06:18)
[2017-03-20] MEDS: NOVOLOG SUB-Q SCH ×3 (08:00→16:39)
[2017-03-20] MEDS: DUONEB *Not for PRN Use IH SCH ×3 (09:11→20:05)
[2017-03-20] MEDS: VITAMIN B-1 PO SCH (10:23)
[2017-03-20] MEDS: PROTONIX PO SCH (10:23)
[2017-03-20] MEDS: FOLVITE PO SCH (10:23)
[2017-03-20] MEDS: TOPROL XL PO SCH (10:24)
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
[2017-03-20] MEDS ORDERED: DIPRIVAN 10 MG/ML 1,000 MG/100 ML BOTTLE IV ONE (14:20)
--- NOTE | 2017-03-20 14:33 | Progress Note ---
Assessment and Plan - Patient Problems (1) Atrial fibrillation with RVR Current Visit: Yes Status: Acute Plan to address problem: Patient A. fib rapid ventricular rate currently not on Coumadin anticoagulates secondary to noncompliance. Rate improved from 160-123 cardiology titrating Cardizem drip. (2) Contusion of rib on left side Current Visit: Yes Status: Acute Qualifiers: Encounter type: subsequent encounter Qualified Code(s): S20.212D - Contusion of left front wall of thorax, subsequent encounter Plan to address problem: Pain control with contusion. Patient not able to express this. (3) Alcohol abuse Current Visit: Yes Status: Chronic Plan to address problem: Still think patient appears to be going through withdrawals clinically. CIWA protocol has improved patient's symptoms. We'll also start patient on Dobbhoff to for nutrition he is not eating placed nutritional consult. (4) Confusion Current Visit: Yes Status: Acute (5) Acute respiratory failure Current Visit: Yes Status: Acute Qualifiers: Respiratory failure complication: R Plan to address problem: Acute respiratory failure patient seems to not be responding well to BiPAP. Cannot maintain sats on BiPAP. We'll replace electrolytes we'll obtain stat chest x-ray to further reevaluate. For now I think patient will require intubation. Or hypoxic respiratory failure. History Interval history: A has remained agitated and hypoxic even after getting Ativan. Patient is on 65 % O2 and sats still remain around 78. Has not been able to increase his sats over lasts night and then even into the morning. Patient remains tachycardic hypoxic agitated altered. Recommend intubation. Hospitalist Physical - Constitutional Vitals: Temp Pulse Resp BP Pulse Ox 99.7 F H 128 H 24 133/87 82 L 03/20/17 12:00 03/20/17 14:13 03/20/17 14:13 03/20/17 14:13 03/20/17 14:13 General appearance: Present: severe distress, well-nourished, other - EENT Eyes: Present: PERRL - Neck Neck: Present: supple, normal ROM - Respiratory Respiratory effort: other (Aber breathing increased respiratory rate on BiPAP) Respiratory: bilateral: diminished, rhonchi - Cardiovascular Rhythm: other (tachycardia cardia) - Extremities Extremity abnormal: edema, erythema Peripheral Pulses: within normal limits - Abdominal General gastrointestinal: soft, non-tender, distended, other (obese) - Psychiatric Psychiatric: appropriate mood/affect, agitated - Neurologic Neurologic: other (encephalopathy) Results - Labs CBC & Chem 7: 03/20/17 03:36 03/19/17 03:54 Labs: Laboratory Last Values WBC 25.4 K/mm3 (4.5-11.0) H 03/19/17 03:54 RBC 4.55 M/mm3 (3.65-5.03) 03/19/17 03:54 Hgb 15.3 gm/dl (11.8-15.2) H 03/20/17 03:36 Hct 48.1 % (35.5-45.6) H 03/20/17 03:36 MCV 98 fl (84-94) H 03/19/17 03:54 MCH 32 pg (28-32) 03/19/17 03:54 MCHC 32 % (32-34) 03/19/17 03:54 RDW 14.5 % (13.2-15.2) 03/19/17 03:54 Plt Count 227 K/mm3 (140-440) 03/20/17 03:36 Lymph % (Auto) 8.4 % (13.4-35.0) L 03/17/17 07:06 [place] % (Auto) 8.1 % (0.0-7.3) H 03/17/17 07:06 Eos % (Auto) 1.0 % (0.0-4.3) 03/17/17 07:06 Baso % (Auto) 0.7 % (0.0-1.8) 03/17/17 07:06 Lymph # 1.4 K/mm3 (1.2-5.4) 03/17/17 07:06 [place] # 1.3 K/mm3 (0.0-0.8) H 03/17/17 07:06 Eos # 0.2 K/mm3 (0.0-0.4) 03/17/17 07:06 Baso # 0.1 K/mm3 (0.0-0.1) 03/17/17 07:06 Add Manual Diff Complete 03/19/17 03:54 Total Counted 200 03/19/17 03:54 Seg Neutrophils % 81.8 % (40.0-70.0) H 03/17/17 07:06 Seg Neuts % (Manual) 83.0 % (40.0-70.0) H 03/19/17 03:54 Band Neutrophils % 4.5 % 03/19/17 03:54 Lymphocytes % (Manual) 4.5 % (13.4-35.0) L 03/19/17 03:54 Reactive Lymphs % (Man) 0 % 03/19/17 03:54 Monocytes % (Manual) 8.0 % (0.0-7.3) H 03/19/17 03:54 Eosinophils % (Manual) 0 % (0.0-4.3) 03/19/17 03:54 Basophils % (Manual) 0 % (0.0-1.8) 03/19/17 03:54 Metamyelocytes % 0 % 03/19/17 03:54 Myelocytes % 0 % 03/19/17 03:54 Promyelocytes % 0 % 03/19/17 03:54 Blast Cells % 0 % 03/19/17 03:54 Nucleated RBC % Not Reportable 03/19/17 03:54 Seg Neutrophils # 13.6 K/mm3 (1.8-7.7) H 03/17/17 07:06 Seg Neutrophils # Man 21.1 K/mm3 (1.8-7.7) H 03/19/17 03:54 Band Neutrophils # 1.1 K/mm3 03/19/17 03:54 Lymphocytes # (Manual) 1.1 K/mm3 (1.2-5.4) L 03/19/17 03:54 Abs React Lymphs (Man) 0.0 K/mm3 03/19/17 03:54 Monocytes # (Manual) 2.0 K/mm3 (0.0-0.8) H 03/19/17 03:54 Eosinophils # (Manual) 0.0 K/mm3 (0.0-0.4) 03/19/17 03:54 Basophils # (Manual) 0.0 K/mm3 (0.0-0.1) 03/19/17 03:54 Metamyelocytes # 0.0 K/mm3 03/19/17 03:54 Myelocytes # 0.0 K/mm3 03/19/17 03:54 Promyelocytes # 0.0 K/mm3 03/19/17 03:54 Blast Cells # 0.0 K/mm3 03/19/17 03:54 WBC Morphology Not Reportable 03/19/17 03:54 Hypersegmented Neuts Not Reportable 03/19/17 03:54 Hyposegmented Neuts Not Reportable 03/19/17 03:54 Hypogranular Neuts Not Reportable 03/19/17 03:54 Smudge Cells Not Reportable 03/19/17 03:54 Toxic Granulation Not Reportable 03/19/17 03:54 Toxic Vacuolation Not Reportable 03/19/17 03:54 Dohle Bodies Not Reportable 03/19/17 03:54 Pelger-Huet Anomaly Not Reportable 03/19/17 03:54 Marco Rods Not Reportable 03/19/17 03:54 Platelet Estimate Appears normal 03/19/17 03:54 Clumped Platelets Not Reportable 03/19/17 03:54 Plt Clumps, EDTA Not Reportable 03/19/17 03:54 Large Platelets Not Reportable 03/19/17 03:54 Giant Platelets Not Reportable 03/19/17 03:54 Platelet Satelliting Not Reportable 03/19/17 03:54 Plt Morphology Comment Not Reportable 03/19/17 03:54 RBC Morphology Normal 03/19/17 03:54 Dimorphic RBCs Not Reportable 03/19/17 03:54 Polychromasia Not Reportable 03/19/17 03:54 Hypochromasia Not Reportable 03/19/17 03:54 Poikilocytosis Not Reportable 03/19/17 03:54 Anisocytosis Not Reportable 03/19/17 03:54 Microcytosis Not Reportable 03/19/17 03:54 Macrocytosis Not Reportable 03/19/17 03:54 Spherocytes Not Reportable 03/19/17 03:54 Pappenheimer Bodies Not Reportable 03/19/17 03:54 Sickle Cells Not Reportable 03/19/17 03:54 Target Cells Not Reportable 03/19/17 03:54 Tear Drop Cells Not Reportable 03/19/17 03:54 Ovalocytes Not Reportable 03/19/17 03:54 Stomatocytes Few 03/05/17 07:03 Helmet Cells Not Reportable 03/19/17 03:54 [place] Bodies Not Reportable 03/19/17 03:54 [place] Rings Not Reportable 03/19/17 03:54 [place] Cells Not Reportable 03/19/17 03:54 Bite Cells Not Reportable 03/19/17 03:54 Crenated Cell Not Reportable 03/19/17 03:54 Elliptocytes Not Reportable 03/19/17 03:54 Acanthocytes (Spur) Not Reportable 03/19/17 03:54 Rouleaux Not Reportable 03/19/17 03:54 Hemoglobin C Crystals Not Reportable 03/19/17 03:54 Schistocytes Not Reportable 03/19/17 03:54 Malaria parasites Not Reportable 03/19/17 03:54 Nishant Bodies Not Reportable 03/19/17 03:54 Hem Pathologist Commnt No 03/19/17 03:54 PT 17.1 Sec. (12.2-14.9) H 03/18/17 17:23 INR 1.40 (0.87-1.13) H 03/18/17 17:23 APTT 30.8 Sec. (24.2-36.6) 03/18/17 17:23 Heparin Anti-Xa Level 0.42 U.I./ml (0.3-0.7) 03/19/17 20:58 POC ABG pH 7.411 (7.35-7.45) 03/19/17 14:54 POC ABG pCO2 57.8 (35-45) H 03/19/17 14:54 POC ABG pO2 71 (80-105) L 03/19/17 14:54 POC ABG HCO3 36.7 03/19/17 14:54 POC ABG Total CO2 38 03/19/17 14:54 POC ABG O2 Sat 94 03/19/17 14:54 POC ABG Base Excess 12 03/19/17 14:54 FiO2 65 % 03/19/17 14:54 Sodium 146 mmol/L (137-145) H 03/19/17 03:54 Potassium 3.4 mmol/L (3.6-5.0) L 03/19/17 03:54 Chloride 97.8 mmol/L (98-107) L 03/19/17 03:54 Carbon Dioxide 33 mmol/L (22-30) H 03/19/17 03:54 Anion Gap 19 mmol/L 03/19/17 03:54 BUN 30 mg/dL (9-20) H 03/19/17 03:54 Creatinine 1.3 mg/dL (0.8-1.5) 03/19/17 03:54 Estimated GFR 58 ml/min 03/19/17 03:54 BUN/Creatinine Ratio 23.07 % 03/19/17 03:54 Glucose 134 mg/dL (75-100) H 03/19/17 03:54 POC Glucose 142 (70-105) H 03/20/17 12:02 Lactic Acid 1.50 mmol/L (0.7-2.0) 03/16/17 13:37 Calcium 8.7 mg/dL (8.4-10.2) 03/19/17 03:54 Phosphorus 4.60 mg/dL (2.5-4.5) H 03/06/17 04:50 Magnesium 1.60 mg/dL (1.7-2.3) L 03/19/17 06:55 Total Bilirubin 1.00 mg/dL (0.1-1.2) 03/18/17 14:10 AST 28 units/L (5-40) 03/18/17 14:10 ALT 24 units/L (7-56) 03/18/17 14:10 Alkaline Phosphatase 117 units/L (35-129) 03/18/17 14:10 Total Creatine Kinase 148 units/L (55-170) 02/27/17 13:08 CK-MB (CK-2) 4.7 ng/mL (0.0-4.0) H 02/27/17 13:08 CK-MB (CK-2) Rel Index 3.1 (0-4) 02/27/17 13:08 Troponin T < 0.010 ng/mL (0.00-0.029) 02/27/17 13:08 Total Protein 7.6 g/dL (6.3-8.2) 03/18/17 14:10 Albumin 3.0 g/dL (3.9-5) L 03/18/17 14:10 Albumin/Globulin Ratio 0.7 % 03/18/17 14:10 TSH 1.480 mlU/mL (0.270-4.200) 02/26/17 23:40 Free T4 1.16 ng/dL (0.76-1.46) 02/26/17 23:40 Urine Color Yellow (Yellow) 03/03/17 10:38 Urine Turbidity Clear (Clear) 03/03/17 10:38 Urine pH 5.0 (5.0-7.0) 03/03/17 10:38 Ur Specific [place] 1.012 (1.003-1.030) 03/03/17 10:38 Urine Protein <15 mg/dl mg/dL (Negative) 03/03/17 10:38 Urine Glucose (UA) Neg mg/dL (Negative) 03/03/17 10:38 Urine Ketones Neg mg/dL (Negative) 03/03/17 10:38 Urine Blood Lg (Negative) 03/03/17 10:38 Urine Nitrite Neg (Negative) 03/03/17 10:38 Urine Bilirubin Neg (Negative) 03/03/17 10:38 Urine Urobilinogen < 2.0 mg/dL (<2.0) 03/03/17 10:38 Ur Leukocyte Esterase Tr (Negative) 03/03/17 10:38 Urine WBC (Auto) 5.0 /HPF (0.0-6.0) 03/03/17 10:38 Urine RBC (Auto) 51.0 /HPF (0.0-6.0) 03/03/17 10:38 Urine Mucus Few /HPF 03/03/17 10:38 Plasma/Serum Alcohol 0.24 gm% (0-0.07) H 02/26/17 23:40
--- NOTE | 2017-03-20 14:50 | Progress Note ---
Subjective Date of service: 03/20/17 Principal diagnosis: afib Interval history: Help was requested to intubate this patient due to impending respiratory failure. The patient was on 100% FIO2 by bipap with tachypnea and SaO2 in the 80 's. The patient was positioned and given 100 mg of propofol and 140 mg of succinyl choline. He was intubated with a mac 3 blade over a tube changer with a size 8.5 OETT. The tube was secured with positive ETCO2 and bilateral breath sounds. The patients SaO2 increased promptly to the mid 90's after intubation. A CXR was requested by Respiratory to confirm tube position. Objective - Constitutional Vitals: Vital Signs - 12hr 03/20/17 03/20/17 03/20/17 03:00 03:44 04:00 Temperature 99.9 F H Pulse Rate 111 H 111 H Pulse Rate [ Bilateral Throughout] Pulse Rate [ 117 H From Monitor] Respiratory 24 25 H Rate Respiratory Rate [Bilateral Throughout] Blood Pressure 112/76 112/81 O2 Sat by Pulse 96 96 Oximetry 03/20/17 03/20/17 03/20/17 04:23 05:00 06:00 Temperature Pulse Rate 102 H 107 H 106 H Pulse Rate [ Bilateral Throughout] Pulse Rate [ From Monitor] Respiratory 26 H 29 H 23 Rate Respiratory Rate [Bilateral Throughout] Blood Pressure 112/81 125/89 126/84 O2 Sat by Pulse 95 98 95 Oximetry 03/20/17 03/20/17 03/20/17 07:00 07:56 08:00 Temperature 99.2 F Pulse Rate 112 H 115 H Pulse Rate [ Bilateral Throughout] Pulse Rate [ 118 H From Monitor] Respiratory 29 H 20 Rate Respiratory Rate [Bilateral Throughout] Blood Pressure 109/87 119/79 O2 Sat by Pulse 97 88 Oximetry 03/20/17 03/20/17 03/20/17 09:00 09:07 09:11 Temperature Pulse Rate 107 H 113 H Pulse Rate [ 104 H Bilateral Throughout] Pulse Rate [ From Monitor] Respiratory 20 30 H Rate Respiratory 26 H Rate [Bilateral Throughout] Blood Pressure 129/83 129/83 O2 Sat by Pulse 92 91 Oximetry 03/20/17 03/20/17 03/20/17 09:34 10:00 11:00 Temperature Pulse Rate 110 H 103 H Pulse Rate [ 110 H Bilateral Throughout] Pulse Rate [ From Monitor] Respiratory 12 27 H Rate Respiratory 24 Rate [Bilateral Throughout] Blood Pressure 120/82 117/85 O2 Sat by Pulse 91 89 Oximetry 03/20/17 03/20/17 03/20/17 12:00 13:00 14:13 Temperature 99.7 F H Pulse Rate 107 H 120 H 128 H Pulse Rate [ Bilateral Throughout] Pulse Rate [ From Monitor] Respiratory 23 34 H 24 Rate Respiratory Rate [Bilateral Throughout] Blood Pressure 121/76 129/68 133/87 O2 Sat by Pulse 85 88 82 L Oximetry - Labs CBC & Chem 7: 03/20/17 03:36 03/19/17 03:54 Labs: Abnormal lab results 03/19/17 03/19/17 03/19/17 Range/Units 14:54 15:53 21:04 Hgb (11.8-15.2) gm/dl Hct (35.5-45.6) % POC ABG pCO2 57.8 H (35-45) POC ABG pO2 71 L (80-105) POC Glucose 172 H 159 H (70-105) 03/20/17 03/20/17 03/20/17 Range/Units 03:36 07:45 12:02 Hgb 15.3 H (11.8-15.2) gm/dl Hct 48.1 H (35.5-45.6) % POC ABG pCO2 (35-45) POC ABG pO2 (80-105) POC Glucose 160 H 142 H (70-105)
[2017-03-20 14:51] LABS: ISTAT Base Excess 8; ISTAT HCO3 34.5; ISTAT PCO2 68.3 (35-45); ISTAT PH 7.312 (7.35-7.45); ISTAT PO2 47 (80-105); ISTAT SO2 77; ISTAT TCO2 37
[2017-03-20] MEDS ORDERED: ARTIFICIAL TEARS OPHTH OINT OU PRN (15:00)
[2017-03-20] MEDS ORDERED: VASELINE LIP THERAPY TP PRN (15:00)
--- NOTE | 2017-03-20 15:05 | XRay Report ---
FINAL REPORT EXAM: XR CHEST 1V AP HISTORY: resp failure TECHNIQUE: Frontal chest radiograph. PRIORS: None. FINDINGS: An enteric tube is present with the tip lying beyond the inferior extent of the study. The cardiomediastinal silhouette is normal. Diffuse patchy opacities are seen throughout the right lung. Probable large right pleural effusion is seen. No pneumothorax. No acute osseous abnormality. IMPRESSION: Probable large right pleural effusion with patchy opacities throughout the right lung which may represent atelectasis versus pneumonia.
--- NOTE | 2017-03-20 15:07 | Progress Note ---
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 Man Lymphocytes # (Manual) Monocytes # (Manual) PT INR Heparin Anti-Xa Level POC ABG pH POC ABG pCO2 57.8 H POC ABG pO2 71 L Sodium Potassium Chloride Carbon Dioxide BUN Creatinine Glucose POC Glucose 139 H 167 H Phosphorus Magnesium Total Bilirubin AST Total Creatine Kinase CK-MB (CK-2) Albumin 03/19/17 03/19/17 03/20/17 15:53 21:04 03:36 WBC RBC Hgb 15.3 H Hct 48.1 H MCV MCH RDW Lymph % (Auto) Williamson % (Auto) Williamson # Seg Neutrophils % Seg Neuts % (Manual) Lymphocytes % (Manual) Monocytes % (Manual) Seg Neutrophils # Seg Neutrophils # Man Lymphocytes # (Manual) Monocytes # (Manual) PT INR Heparin Anti-Xa Level POC ABG pH POC ABG pCO2 POC ABG pO2 Sodium Potassium Chloride Carbon Dioxide BUN Creatinine Glucose POC Glucose 172 H 159 H Phosphorus Magnesium Total Bilirubin AST Total Creatine Kinase CK-MB (CK-2) Albumin 03/20/17 03/20/17 03/20/17 07:45 12:02 14:07 WBC RBC Hgb Hct MCV MCH RDW Lymph % (Auto) Williamson % (Auto) Williamson # Seg Neutrophils % Seg Neuts % (Manual) Lymphocytes % (Manual) Monocytes % (Manual) Seg Neutrophils # Seg Neutrophils # Man Lymphocytes # (Manual) Monocytes # (Manual) PT INR Heparin Anti-Xa Level POC ABG pH 7.312 L POC ABG pCO2 68.3 H POC ABG pO2 47 L Sodium Potassium Chloride Carbon Dioxide BUN Creatinine Glucose POC Glucose 160 H 142 H Phosphorus Magnesium Total Bilirubin AST Total Creatine Kinase CK-MB (CK-2) Albumin Chest x-ray: image reviewed (right lower lobe infiltrate)
[2017-03-20] MEDS: DIPRIVAN 10 MG/ML 1,000 MG/100 ML BOTTLE IV SCH (15:10)
[2017-03-20] MEDS: NACL 0.9% 1000 ML 1,000 ML IV SCH (16:00)
[2017-03-20] MEDS: LOPRESSOR PO SCH ×3 (16:35→23:05)
--- NOTE | 2017-03-20 16:38 | XRay Report ---
FINAL REPORT EXAM: XR CHEST 1V AP HISTORY: et tube placement TECHNIQUE: Chest Single AP PRIORS: Comparison to today's earlier exam at 1930 hours O FINDINGS: ET tube is present. Tip is position low just at the laurel proximal right main bronchus. Subsequent film demonstrates tube is been repositioned There is some atelectasis and infiltrate within the right perihilar region and lower lobe unchanged from prior exam. Feeding tube is again identified distal end descending below the diaphragm. Left lung demonstrates no acute change. IMPRESSION: ET tube as noted above. Subsequent film demonstrates repositioning Right-sided pulmonary infiltrates unchanged
[2017-03-20 16:40] LABS: ISTAT Base Excess 6; ISTAT HCO3 33.5; ISTAT PCO2 82.8 (35-45); ISTAT PH 7.214 (7.35-7.45); ISTAT PO2 69 (80-105); ISTAT SO2 88; ISTAT TCO2 36
[2017-03-20] MEDS: HEPARIN/ 0.45% NACL-25,000 UNIT/500 ML 25,000 UNIT/500 ML BAG IV SCH (16:47)
--- NOTE | 2017-03-20 16:54 | XRay Report ---
FINAL REPORT EXAM: XR CHEST 1V AP HISTORY: et tube recheck TECHNIQUE: Chest supine portable PRIORS: Correlation with earlier study at 1540 hours FINDINGS: ET tube is been repositioned. Tip is just below the thoracic inlet. Feeding tube again identified. Distal end descending below the diaphragm. Right-sided pulmonary infiltrates are unchanged. No evidence for pneumothorax or pleural fluid collection IMPRESSION: Interval repositioning of ET tube. Tip is just below the thoracic inlet No change in right-sided pulmonary infiltrates
[2017-03-20 19:59] LABS: ISTAT Base Excess 8; ISTAT HCO3 33.5; ISTAT PCO2 58.7 (35-45); ISTAT PH 7.365 (7.35-7.45); ISTAT PO2 101 (80-105); ISTAT SO2 97; ISTAT TCO2 35
[2017-03-21] MEDS: NOVOLOG SUB-Q SCH ×4 (00:05→19:03)
[2017-03-21] MEDS: NACL 0.9% 1000 ML 1,000 ML IV SCH ×2 (00:28→09:32)
[2017-03-21] MEDS: DIPRIVAN 10 MG/ML 1,000 MG/100 ML BOTTLE IV SCH ×2 (00:37→18:59)
[2017-03-21] MEDS: VANCOMYCIN/NS 1 GM/250 ML 1 GM/250 ML BAG IV SCH (04:33)
[2017-03-21 05:02] LABS: BUN/Creatinine Ratio 16.15; Calcium 7.9 mg/dL (8.4-10.2); Chloride 105.2 mmol/L (98-107)
[2017-03-21 05:04] LABS: Potassium 4.1 mmol/L (3.6-5.0)
[2017-03-21 05:40] LABS: ISTAT Base Excess 5; ISTAT PCO2 48.6 (35-45); ISTAT PH 7.399 (7.35-7.45); ISTAT PO2 79 (80-105); ISTAT SO2 95; ISTAT TCO2 31
[2017-03-21] MEDS: ZOSYN/NS 4.5GM/100ML 4.5 GM/100 ML VIAL IV SCH ×3 (06:34→21:41)
--- NOTE | 2017-03-21 07:22 | XRay Report ---
AP CHEST History: Followup respiratory failure Findings: The endotracheal tube and feeding tube remain in good position. Heart size is within normal limits. The patchy infiltration throughout the right lung appears relatively stable over multiple previous exams. The left lung is clear. No pleural effusion or pneumothorax. Impression: No change.
--- NOTE | 2017-03-21 07:45 | Vascular Lab Report ---
LOWER EXTREMITY VENOUS DUPLEX: REASON FOR EXAM: Pain and swelling of the lower extremities. COMMENTS ON THE RIGHT: All veins visualized are freely compressible without evidence of internal echogenicity. Flow is spontaneous and phasic throughout. COMMENTS ON THE LEFT: Deep venous thrombus is noted in the peroneal vein. The remaining veins visualized are freely compressible without evidence of internal echogenicity. Spontaneous and phasic flow is present proximally. IMPRESSION: Acute deep venous thrombosis in the left peroneal vein
[2017-03-21] MEDS: DUONEB *Not for PRN Use IH SCH ×3 (08:55→21:15)
[2017-03-21] MEDS: HEPARIN/ 0.45% NACL-25,000 UNIT/500 ML 25,000 UNIT/500 ML BAG IV SCH ×2 (09:32→22:39)
[2017-03-21] MEDS: LOPRESSOR PO SCH ×5 (09:46→21:42)
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
--- NOTE | 2017-03-21 10:54 | Progress Note ---
Assessment and Plan 51 y/o male, noncompliant, with systolic heart failure, admitted with afib with RVR, and possible ETOH abuse, now with recurrent afib with RVR and likely aspiration pneumonia on the right resulting in acute respiratory failure. 1. Increase PEEP to 12, repeat ABG at 14:00 2. Follow up speciation on GNR 3. Continue broad spec abx therapy 4. May need bronch as original tracheal aspirate is contaminated 5. Rate control per cards 6. DH and feed patient, needs more free water given increase in Na 7. Replace Bernardo and repeat Chemistry this afternoon CCT 31 minutes. Subjective Date of service: 03/21/17 Principal diagnosis: afib Interval history: Intubated yesterday. PEEP at 8 and FiO2 at 70%. Sedated on Propofol. No family at bedside. Renal function worse today and Cr increased to 2.6. Remainder is negative. Continues to spike fevers on Vanc and Zosyn. Has GNR in urine. Objective Vital Signs - 12hr 03/20/17 03/20/17 03/20/17 23:00 23:05 23:30 Temperature Pulse Rate 131 H 131 H 113 H Pulse Rate [ Anterior Bilateral Throughout] Respiratory 28 H Rate Respiratory Rate [Anterior Bilateral Throughout] Blood Pressure 85/63 93/45 87/61 O2 Sat by Pulse 93 93 Oximetry 03/20/17 03/21/17 03/21/17 23:47 00:00 00:37 Temperature 100.6 F H Pulse Rate 121 H 109 H Pulse Rate [ Anterior Bilateral Throughout] Respiratory 25 H 24 Rate Respiratory Rate [Anterior Bilateral Throughout] Blood Pressure 93/66 95/59 O2 Sat by Pulse 94 Oximetry 03/21/17 03/21/17 03/21/17 01:00 02:00 03:00 Temperature Pulse Rate 114 H 108 H 104 H Pulse Rate [ Anterior Bilateral Throughout] Respiratory 25 H 24 24 Rate Respiratory Rate [Anterior Bilateral Throughout] Blood Pressure 94/61 93/68 97/66 O2 Sat by Pulse 94 94 95 Oximetry 03/21/17 03/21/17 03/21/17 04:00 04:26 05:00 Temperature 100.6 F H Pulse Rate 92 H 93 H 99 H Pulse Rate [ Anterior Bilateral Throughout] Respiratory 24 24 Rate Respiratory Rate [Anterior Bilateral Throughout] Blood Pressure 98/62 98/62 98/62 O2 Sat by Pulse 96 96 96 Oximetry 03/21/17 03/21/17 03/21/17 06:00 07:00 08:00 Temperature 100.2 F H Pulse Rate 94 H 104 H 102 H Pulse Rate [ Anterior Bilateral Throughout] Respiratory 24 26 H 29 H Rate Respiratory Rate [Anterior Bilateral Throughout] Blood Pressure 94/64 104/72 115/78 O2 Sat by Pulse 95 95 93 Oximetry 03/21/17 03/21/17 03/21/17 08:47 09:00 09:02 Temperature Pulse Rate 104 H 109 H Pulse Rate [ 104 H 103 H Anterior Bilateral Throughout] Respiratory 24 Rate Respiratory 26 H 24 Rate [Anterior Bilateral Throughout] Blood Pressure 112/81 109/76 O2 Sat by Pulse 96 96 Oximetry Constitutional: other (orally intubated, critically ill on vent) Eyes: non-icteric ENT: oropharynx moist Neck: supple Effort: mildly labored Ascultation: Right: rales (mostly on the right), rhonchi, Bilateral: diminished breath sounds Cardiovascular: irregular rhythm (ir/ir; no mrg; tachy) Gastrointestinal: normoactive bowel sounds, soft, non-tender, non-distended, other (obese) Integumentary: normal Extremities: no cyanosis, no edema, pink and warm Neurologic: non-focal exam, pupils equal and round, other (opens eyes) Psychiatric: mood appropriate, affect normal CBC and BMP: 03/20/17 03:36 03/21/17 04:21 ABG, PT/INR, D-dimer: ABG POC ABG pH 7.399 (7.35-7.45) 03/21/17 04:18 POC ABG pCO2 48.6 (35-45) H 03/21/17 04:18 POC ABG pO2 79 (80-105) L 03/21/17 04:18 POC ABG HCO3 30.0 03/21/17 04:18 POC ABG Total CO2 31 03/21/17 04:18 POC ABG O2 Sat 95 03/21/17 04:18 PT/INR, D-dimer PT 17.1 Sec. (12.2-14.9) H 03/18/17 17:23 INR 1.40 (0.87-1.13) H 03/18/17 17:23 Abnormal lab findings: Abnormal Labs 02/27/17 02/27/17 02/27/17 03:51 05:41 08:49 WBC RBC Hgb Hct MCV MCH RDW Lymph % (Auto) [place] % (Auto) [place] # Seg Neutrophils % Seg Neuts % (Manual) Lymphocytes % (Manual) Monocytes % (Manual) Seg Neutrophils # Seg Neutrophils # Man Lymphocytes # (Manual) Monocytes # (Manual) PT INR Heparin Anti-Xa Level POC ABG pH POC ABG pCO2 POC ABG pO2 Sodium Potassium Chloride Carbon Dioxide BUN Creatinine Glucose POC Glucose 131 H 139 H Calcium Phosphorus Magnesium Total Bilirubin AST Total Creatine Kinase 171 H CK-MB (CK-2) 5.8 H Albumin 02/27/17 02/27/17 02/27/17 13:05 13:08 16:07 WBC RBC Hgb Hct MCV MCH RDW Lymph % (Auto) [place] % (Auto) [place] # Seg Neutrophils % Seg Neuts % (Manual) Lymphocytes % (Manual) Monocytes % (Manual) Seg Neutrophils # Seg Neutrophils # Man Lymphocytes # (Manual) Monocytes # (Manual) PT INR Heparin Anti-Xa Level POC ABG pH POC ABG pCO2 POC ABG pO2 Sodium Potassium Chloride Carbon Dioxide BUN Creatinine Glucose POC Glucose 146 H 138 H Calcium Phosphorus Magnesium Total Bilirubin AST Total Creatine Kinase CK-MB (CK-2) 4.7 H Albumin 02/27/17 02/28/17 02/28/17 21:40 03:32 03:32 WBC RBC Hgb 15.9 H Hct 47.6 H MCV 100 H MCH 34 H RDW 15.4 H Lymph % (Auto) [place] % (Auto) [place] # Seg Neutrophils % Seg Neuts % (Manual) Lymphocytes % (Manual) Monocytes % (Manual) Seg Neutrophils # Seg Neutrophils # Man Lymphocytes # (Manual) Monocytes # (Manual) PT INR Heparin Anti-Xa Level POC ABG pH POC ABG pCO2 POC ABG pO2 Sodium Potassium Chloride 95.0 L Carbon Dioxide BUN 8 L Creatinine 0.6 L Glucose 126 H POC Glucose 140 H Calcium Phosphorus Magnesium 1.60 L Total Bilirubin AST Total Creatine Kinase CK-MB (CK-2) Albumin 02/28/17 02/28/17 02/28/17 07:55 11:57 15:40 WBC RBC Hgb Hct MCV MCH RDW Lymph % (Auto) [place] % (Auto) [place] # Seg Neutrophils % Seg Neuts % (Manual) Lymphocytes % (Manual) Monocytes % (Manual) Seg Neutrophils # Seg Neutrophils # Man Lymphocytes # (Manual) Monocytes # (Manual) PT INR Heparin Anti-Xa Level POC ABG pH POC ABG pCO2 POC ABG pO2 Sodium Potassium Chloride Carbon Dioxide BUN Creatinine Glucose POC Glucose 134 H 174 H 158 H Calcium Phosphorus Magnesium Total Bilirubin AST Total Creatine Kinase CK-MB (CK-2) Albumin 02/28/17 03/01/17 03/01/17 21:51 07:42 10:41 WBC RBC Hgb Hct MCV MCH RDW Lymph % (Auto) [place] % (Auto) [place] # Seg Neutrophils % Seg Neuts % (Manual) Lymphocytes % (Manual) Monocytes % (Manual) Seg Neutrophils # Seg Neutrophils # Man Lymphocytes # (Manual) Monocytes # (Manual) PT INR Heparin Anti-Xa Level POC ABG pH POC ABG pCO2 POC ABG pO2 Sodium Potassium Chloride Carbon Dioxide BUN Creatinine Glucose POC Glucose 127 H 146 H 176 H Calcium Phosphorus Magnesium Total Bilirubin AST Total Creatine Kinase CK-MB (CK-2) Albumin 03/01/17 03/01/17 03/02/17 15:37 23:35 08:11 WBC RBC Hgb Hct MCV MCH RDW Lymph % (Auto) [place] % (Auto) [place] # Seg Neutrophils % Seg Neuts % (Manual) Lymphocytes % (Manual) Monocytes % (Manual) Seg Neutrophils # Seg Neutrophils # Man Lymphocytes # (Manual) Monocytes # (Manual) PT INR Heparin Anti-Xa Level POC ABG pH POC ABG pCO2 POC ABG pO2 Sodium Potassium Chloride Carbon Dioxide BUN Creatinine Glucose POC Glucose 158 H 139 H 127 H Calcium Phosphorus Magnesium Total Bilirubin AST Total Creatine Kinase CK-MB (CK-2) Albumin 03/02/17 03/02/17 03/02/17 09:12 12:03 12:37 WBC 17.9 H RBC Hgb 16.3 H Hct 49.3 H MCV 101 H MCH 33 H RDW Lymph % (Auto) 10.6 L [place] % (Auto) 13.4 H [place] # 2.4 H Seg Neutrophils % 75.2 H Seg Neuts % (Manual) Lymphocytes % (Manual) Monocytes % (Manual) Seg Neutrophils # 13.5 H Seg Neutrophils # Man Lymphocytes # (Manual) Monocytes # (Manual) PT INR Heparin Anti-Xa Level POC ABG pH POC ABG pCO2 POC ABG pO2 Sodium 135 L Potassium Chloride 90.3 L Carbon Dioxide 32 H BUN Creatinine 0.6 L Glucose 124 H POC Glucose 145 H Calcium Phosphorus Magnesium Total Bilirubin AST Total Creatine Kinase CK-MB (CK-2) Albumin 03/02/17 03/02/17 03/03/17 16:09 22:41 03:59 WBC 14.7 H RBC Hgb Hct MCV 100 H MCH 33 H RDW Lymph % (Auto) 10.9 L [place] % (Auto) 14.8 H [place] # 2.2 H Seg Neutrophils % 73.6 H Seg Neuts % (Manual) Lymphocytes % (Manual) Monocytes % (Manual) Seg Neutrophils # 10.8 H Seg Neutrophils # Man Lymphocytes # (Manual) Monocytes # (Manual) PT INR Heparin Anti-Xa Level POC ABG pH POC ABG pCO2 POC ABG pO2 Sodium Potassium Chloride Carbon Dioxide BUN Creatinine Glucose POC Glucose 141 H 127 H Calcium Phosphorus Magnesium Total Bilirubin AST Total Creatine Kinase CK-MB (CK-2) Albumin 03/03/17 03/03/17 03/03/17 04:07 09:19 11:33 WBC RBC Hgb Hct MCV MCH RDW Lymph % (Auto) [place] % (Auto) [place] # Seg Neutrophils % Seg Neuts % (Manual) Lymphocytes % (Manual) Monocytes % (Manual) Seg Neutrophils # Seg Neutrophils # Man Lymphocytes # (Manual) Monocytes # (Manual) PT INR Heparin Anti-Xa Level POC ABG pH POC ABG pCO2 POC ABG pO2 Sodium Potassium 3.1 L D Chloride 91.1 L Carbon Dioxide BUN Creatinine 0.7 L Glucose 136 H POC Glucose 123 H 153 H Calcium Phosphorus Magnesium Total Bilirubin AST Total Creatine Kinase CK-MB (CK-2) Albumin 03/03/17 03/04/17 03/04/17 15:46 05:58 06:04 WBC 11.4 H RBC Hgb Hct 46.0 H MCV 101 H MCH 33 H RDW Lymph % (Auto) [place] % (Auto) [place] # Seg Neutrophils % Seg Neuts % (Manual) 71.0 H Lymphocytes % (Manual) 13.0 L Monocytes % (Manual) 13.0 H Seg Neutrophils # Seg Neutrophils # Man 8.1 H Lymphocytes # (Manual) Monocytes # (Manual) 1.5 H PT INR Heparin Anti-Xa Level POC ABG pH POC ABG pCO2 POC ABG pO2 Sodium Potassium 3.3 L Chloride 92.2 L Carbon Dioxide 33 H BUN Creatinine 0.6 L Glucose 133 H POC Glucose 131 H Calcium Phosphorus Magnesium Total Bilirubin AST Total Creatine Kinase CK-MB (CK-2) Albumin 03/04/17 03/04/17 03/04/17 07:54 11:24 16:00 WBC RBC Hgb Hct MCV MCH RDW Lymph % (Auto) [place] % (Auto) [place] # Seg Neutrophils % Seg Neuts % (Manual) Lymphocytes % (Manual) Monocytes % (Manual) Seg Neutrophils # Seg Neutrophils # Man Lymphocytes # (Manual) Monocytes # (Manual) PT INR Heparin Anti-Xa Level POC ABG pH POC ABG pCO2 POC ABG pO2 Sodium Potassium Chloride Carbon Dioxide BUN Creatinine Glucose POC Glucose 131 H 134 H 116 H Calcium Phosphorus Magnesium Total Bilirubin AST Total Creatine Kinase CK-MB (CK-2) Albumin 03/05/17 03/05/17 03/05/17 00:39 07:03 07:03 WBC 11.4 H RBC Hgb 15.4 H Hct 46.3 H MCV 100 H MCH 33 H RDW Lymph % (Auto) [place] % (Auto) [place] # Seg Neutrophils % Seg Neuts % (Manual) Lymphocytes % (Manual) Monocytes % (Manual) 20.0 H Seg Neutrophils # Seg Neutrophils # Man Lymphocytes # (Manual) Monocytes # (Manual) 2.3 H PT INR Heparin Anti-Xa Level POC ABG pH POC ABG pCO2 POC ABG pO2 Sodium Potassium 3.3 L Chloride 95.2 L Carbon Dioxide 31 H BUN Creatinine 0.6 L Glucose 137 H POC Glucose 116 H Calcium Phosphorus Magnesium Total Bilirubin AST Total Creatine Kinase CK-MB (CK-2) Albumin 03/05/17 03/05/17 03/05/17 08:05 12:15 16:07 WBC RBC Hgb Hct MCV MCH RDW Lymph % (Auto) [place] % (Auto) [place] # Seg Neutrophils % Seg Neuts % (Manual) Lymphocytes % (Manual) Monocytes % (Manual) Seg Neutrophils # Seg Neutrophils # Man Lymphocytes # (Manual) Monocytes # (Manual) PT INR Heparin Anti-Xa Level POC ABG pH POC ABG pCO2 POC ABG pO2 Sodium Potassium Chloride Carbon Dioxide BUN Creatinine Glucose POC Glucose 134 H 150 H 113 H Calcium Phosphorus Magnesium Total Bilirubin AST Total Creatine Kinase CK-MB (CK-2) Albumin 03/06/17 03/06/17 03/06/17 04:45 04:50 11:50 WBC 11.8 H RBC Hgb 15.7 H Hct 47.1 H MCV 98 H MCH 33 H RDW Lymph % (Auto) [place] % (Auto) [place] # Seg Neutrophils % Seg Neuts % (Manual) Lymphocytes % (Manual) 13.0 L Monocytes % (Manual) 17.0 H Seg Neutrophils # Seg Neutrophils # Man Lymphocytes # (Manual) Monocytes # (Manual) 2.0 H PT INR Heparin Anti-Xa Level POC ABG pH POC ABG pCO2 POC ABG pO2 Sodium Potassium 3.2 L Chloride 94.9 L Carbon Dioxide 31 H BUN Creatinine 0.6 L Glucose 125 H POC Glucose 124 H Calcium Phosphorus 4.60 H Magnesium Total Bilirubin AST Total Creatine Kinase CK-MB (CK-2) Albumin 03/06/17 03/06/17 03/07/17 15:43 22:07 04:30 WBC RBC Hgb Hct MCV MCH RDW Lymph % (Auto) [place] % (Auto) [place] # Seg Neutrophils % Seg Neuts % (Manual) Lymphocytes % (Manual) Monocytes % (Manual) Seg Neutrophils # Seg Neutrophils # Man Lymphocytes # (Manual) Monocytes # (Manual) PT INR Heparin Anti-Xa Level POC ABG pH POC ABG pCO2 POC ABG pO2 Sodium Potassium 3.4 L Chloride 95.1 L Carbon Dioxide BUN Creatinine 0.6 L Glucose 129 H POC Glucose 121 H 109 H Calcium Phosphorus Magnesium Total Bilirubin AST Total Creatine Kinase CK-MB (CK-2) Albumin 03/07/17 03/07/17 03/07/17 04:37 12:02 15:03 WBC 11.3 H RBC Hgb Hct MCV 99 H MCH 34 H RDW Lymph % (Auto) [place] % (Auto) 14.6 H [place] # 1.6 H Seg Neutrophils % Seg Neuts % (Manual) Lymphocytes % (Manual) Monocytes % (Manual) Seg Neutrophils # Seg Neutrophils # Man Lymphocytes # (Manual) Monocytes # (Manual) PT INR Heparin Anti-Xa Level POC ABG pH POC ABG pCO2 POC ABG pO2 Sodium Potassium Chloride Carbon Dioxide BUN Creatinine Glucose POC Glucose 126 H 108 H Calcium Phosphorus Magnesium Total Bilirubin AST Total Creatine Kinase CK-MB (CK-2) Albumin 03/08/17 03/08/17 03/08/17 04:58 04:58 08:22 WBC RBC Hgb 16.4 H Hct 49.3 H MCV 99 H MCH 33 H RDW Lymph % (Auto) [place] % (Auto) 12.1 H [place] # 1.2 H Seg Neutrophils % 71.4 H Seg Neuts % (Manual) Lymphocytes % (Manual) Monocytes % (Manual) Seg Neutrophils # Seg Neutrophils # Man Lymphocytes # (Manual) Monocytes # (Manual) PT INR Heparin Anti-Xa Level POC ABG pH POC ABG pCO2 POC ABG pO2 Sodium 136 L Potassium Chloride 93.7 L Carbon Dioxide BUN Creatinine 0.5 L Glucose 127 H POC Glucose 106 H Calcium Phosphorus Magnesium Total Bilirubin AST 50 H Total Creatine Kinase CK-MB (CK-2) Albumin 2.7 L 03/08/17 03/08/17 03/09/17 12:14 17:50 05:26 WBC 11.8 H RBC Hgb 16.3 H Hct 49.1 H MCV 98 H MCH 33 H RDW Lymph % (Auto) [place] % (Auto) 10.8 H [place] # 1.3 H Seg Neutrophils % 71.8 H Seg Neuts % (Manual) Lymphocytes % (Manual) Monocytes % (Manual) Seg Neutrophils # 8.4 H Seg Neutrophils # Man Lymphocytes # (Manual) Monocytes # (Manual) PT INR Heparin Anti-Xa Level POC ABG pH POC ABG pCO2 POC ABG pO2 Sodium Potassium Chloride Carbon Dioxide BUN Creatinine Glucose POC Glucose 115 H 117 H Calcium Phosphorus Magnesium Total Bilirubin AST Total Creatine Kinase CK-MB (CK-2) Albumin 03/09/17 03/09/17 03/09/17 05:26 12:39 16:19 WBC RBC Hgb Hct MCV MCH RDW Lymph % (Auto) [place] % (Auto) [place] # Seg Neutrophils % Seg Neuts % (Manual) Lymphocytes % (Manual) Monocytes % (Manual) Seg Neutrophils # Seg Neutrophils # Man Lymphocytes # (Manual) Monocytes # (Manual) PT INR Heparin Anti-Xa Level POC ABG pH POC ABG pCO2 POC ABG pO2 Sodium Potassium Chloride 94.7 L Carbon Dioxide BUN Creatinine 0.7 L Glucose 115 H POC Glucose 111 H 116 H Calcium Phosphorus Magnesium Total Bilirubin AST Total Creatine Kinase CK-MB (CK-2) Albumin 03/09/17 03/10/17 03/10/17 22:48 08:27 11:46 WBC RBC Hgb Hct MCV MCH RDW Lymph % (Auto) [place] % (Auto) [place] # Seg Neutrophils % Seg Neuts % (Manual) Lymphocytes % (Manual) Monocytes % (Manual) Seg Neutrophils # Seg Neutrophils # Man Lymphocytes # (Manual) Monocytes # (Manual) PT INR Heparin Anti-Xa Level POC ABG pH POC ABG pCO2 POC ABG pO2 Sodium Potassium Chloride Carbon Dioxide BUN Creatinine Glucose POC Glucose 106 H 107 H 116 H Calcium Phosphorus Magnesium Total Bilirubin AST Total Creatine Kinase CK-MB (CK-2) Albumin 03/10/17 03/10/17 03/11/17 17:01 21:46 08:10 WBC RBC Hgb Hct MCV MCH RDW Lymph % (Auto) [place] % (Auto) [place] # Seg Neutrophils % Seg Neuts % (Manual) Lymphocytes % (Manual) Monocytes % (Manual) Seg Neutrophils # Seg Neutrophils # Man Lymphocytes # (Manual) Monocytes # (Manual) PT INR Heparin Anti-Xa Level POC ABG pH POC ABG pCO2 POC ABG pO2 Sodium Potassium Chloride Carbon Dioxide BUN Creatinine Glucose POC Glucose 115 H 135 H 109 H Calcium Phosphorus Magnesium Total Bilirubin AST Total Creatine Kinase CK-MB (CK-2) Albumin 03/11/17 03/11/17 03/11/17 12:12 17:45 22:14 WBC RBC Hgb Hct MCV MCH RDW Lymph % (Auto) [place] % (Auto) [place] # Seg Neutrophils % Seg Neuts % (Manual) Lymphocytes % (Manual) Monocytes % (Manual) Seg Neutrophils # Seg Neutrophils # Man Lymphocytes # (Manual) Monocytes # (Manual) PT INR Heparin Anti-Xa Level POC ABG pH POC ABG pCO2 POC ABG pO2 Sodium Potassium Chloride Carbon Dioxide BUN Creatinine Glucose POC Glucose 136 H 126 H 132 H Calcium Phosphorus Magnesium Total Bilirubin AST Total Creatine Kinase CK-MB (CK-2) Albumin 03/12/17 03/12/17 03/12/17 08:44 08:44 12:56 WBC 14.9 H RBC 5.04 H Hgb 16.1 H Hct 48.8 H MCV 97 H MCH RDW Lymph % (Auto) 11.7 L [place] % (Auto) 11.6 H [place] # 1.7 H Seg Neutrophils % 75.5 H Seg Neuts % (Manual) Lymphocytes % (Manual) Monocytes % (Manual) Seg Neutrophils # 11.2 H Seg Neutrophils # Man Lymphocytes # (Manual) Monocytes # (Manual) PT INR Heparin Anti-Xa Level POC ABG pH POC ABG pCO2 POC ABG pO2 Sodium Potassium 3.2 L Chloride 93.4 L Carbon Dioxide BUN Creatinine 0.6 L Glucose 121 H POC Glucose 129 H Calcium Phosphorus Magnesium Total Bilirubin 1.30 H AST Total Creatine Kinase CK-MB (CK-2) Albumin 3.2 L 03/12/17 03/13/1717 17:13 09:05 11:36 WBC RBC Hgb Hct MCV MCH RDW Lymph % (Auto) [place] % (Auto) [place] # Seg Neutrophils % Seg Neuts % (Manual) Lymphocytes % (Manual) Monocytes % (Manual) Seg Neutrophils # Seg Neutrophils # Man Lymphocytes # (Manual) Monocytes # (Manual) PT INR Heparin Anti-Xa Level POC ABG pH POC ABG pCO2 POC ABG pO2 Sodium Potassium Chloride Carbon Dioxide BUN Creatinine Glucose POC Glucose 161 H 110 H 126 H Calcium Phosphorus Magnesium Total Bilirubin AST Total Creatine Kinase CK-MB (CK-2) Albumin 03/13/17 03/13/17 03/14/17 16:17 21:43 08:40 WBC RBC Hgb Hct MCV MCH RDW Lymph % (Auto) [place] % (Auto) [place] # Seg Neutrophils % Seg Neuts % (Manual) Lymphocytes % (Manual) Monocytes % (Manual) Seg Neutrophils # Seg Neutrophils # Man Lymphocytes # (Manual) Monocytes # (Manual) PT INR Heparin Anti-Xa Level POC ABG pH POC ABG pCO2 POC ABG pO2 Sodium Potassium Chloride Carbon Dioxide BUN Creatinine Glucose POC Glucose 126 H 115 H 106 H Calcium Phosphorus Magnesium Total Bilirubin AST Total Creatine Kinase CK-MB (CK-2) Albumin 03/14/17 03/14/17 03/14/17 12:01 17:39 20:30 WBC RBC Hgb Hct MCV MCH RDW Lymph % (Auto) [place] % (Auto) [place] # Seg Neutrophils % Seg Neuts % (Manual) Lymphocytes % (Manual) Monocytes % (Manual) Seg Neutrophils # Seg Neutrophils # Man Lymphocytes # (Manual) Monocytes # (Manual) PT INR Heparin Anti-Xa Level POC ABG pH POC ABG pCO2 POC ABG pO2 Sodium Potassium Chloride Carbon Dioxide BUN Creatinine Glucose POC Glucose 116 H 192 H 122 H Calcium Phosphorus Magnesium Total Bilirubin AST Total Creatine Kinase CK-MB (CK-2) Albumin 03/15/17 03/15/17 03/15/17 01:12 06:49 08:46 WBC 23.9 H RBC Hgb 16.1 H Hct 49.4 H MCV 100 H D MCH 33 H RDW Lymph % (Auto) [place] % (Auto) [place] # Seg Neutrophils % Seg Neuts % (Manual) 92.0 H Lymphocytes % (Manual) 4.0 L Monocytes % (Manual) Seg Neutrophils # Seg Neutrophils # Man 22.0 H Lymphocytes # (Manual) 1.0 L Monocytes # (Manual) 1.0 H PT INR Heparin Anti-Xa Level POC ABG pH POC ABG pCO2 POC ABG pO2 Sodium Potassium Chloride 91.0 L Carbon Dioxide 33 H BUN 45 H Creatinine Glucose 160 H POC Glucose 147 H Calcium Phosphorus Magnesium Total Bilirubin AST 41 H Total Creatine Kinase CK-MB (CK-2) Albumin 3.0 L 03/15/17 03/15/17 03/15/17 12:11 16:00 20:51 WBC RBC Hgb Hct MCV MCH RDW Lymph % (Auto) [place] % (Auto) [place] # Seg Neutrophils % Seg Neuts % (Manual) Lymphocytes % (Manual) Monocytes % (Manual) Seg Neutrophils # Seg Neutrophils # Man Lymphocytes # (Manual) Monocytes # (Manual) PT INR Heparin Anti-Xa Level POC ABG pH POC ABG pCO2 POC ABG pO2 Sodium Potassium Chloride Carbon Dioxide BUN Creatinine Glucose POC Glucose 144 H 134 H 148 H Calcium Phosphorus Magnesium Total Bilirubin AST Total Creatine Kinase CK-MB (CK-2) Albumin 03/16/17 03/16/17 03/16/17 05:59 06:02 09:15 WBC 20.9 H RBC Hgb Hct 45.8 H MCV 99 H MCH 33 H RDW Lymph % (Auto) [place] % (Auto) [place] # Seg Neutrophils % Seg Neuts % (Manual) 92.0 H Lymphocytes % (Manual) 4.0 L Monocytes % (Manual) Seg Neutrophils # Seg Neutrophils # Man 19.2 H Lymphocytes # (Manual) 0.8 L Monocytes # (Manual) PT INR Heparin Anti-Xa Level POC ABG pH POC ABG pCO2 POC ABG pO2 Sodium Potassium Chloride 92.3 L Carbon Dioxide 34 H BUN 44 H Creatinine Glucose 150 H POC Glucose 127 H Calcium Phosphorus Magnesium Total Bilirubin AST Total Creatine Kinase CK-MB (CK-2) Albumin 03/16/17 03/16/17 03/17/17 11:59 18:08 07:06 WBC RBC Hgb Hct MCV MCH RDW Lymph % (Auto) [place] % (Auto) [place] # Seg Neutrophils % Seg Neuts % (Manual) Lymphocytes % (Manual) Monocytes % (Manual) Seg Neutrophils # Seg Neutrophils # Man Lymphocytes # (Manual) Monocytes # (Manual) PT INR Heparin Anti-Xa Level POC ABG pH POC ABG pCO2 POC ABG pO2 Sodium Potassium Chloride 93.3 L Carbon Dioxide 35 H BUN 31 H Creatinine Glucose 132 H POC Glucose 147 H 138 H Calcium Phosphorus Magnesium Total Bilirubin AST Total Creatine Kinase CK-MB (CK-2) Albumin 03/17/17 03/17/17 03/17/17 07:06 07:14 12:35 WBC 16.6 H RBC Hgb 15.6 H Hct 47.5 H MCV 99 H MCH 33 H RDW Lymph % (Auto) 8.4 L [place] % (Auto) 8.1 H [place] # 1.3 H Seg Neutrophils % 81.8 H Seg Neuts % (Manual) Lymphocytes % (Manual) Monocytes % (Manual) Seg Neutrophils # 13.6 H Seg Neutrophils # Man Lymphocytes # (Manual) Monocytes # (Manual) PT INR Heparin Anti-Xa Level POC ABG pH POC ABG pCO2 POC ABG pO2 Sodium Potassium Chloride Carbon Dioxide BUN Creatinine Glucose POC Glucose 119 H 132 H Calcium Phosphorus Magnesium Total Bilirubin AST Total Creatine Kinase CK-MB (CK-2) Albumin 03/18/17 03/18/17 03/18/17 05:05 06:15 06:15 WBC 15.8 H RBC Hgb 16.5 H Hct 49.3 H MCV 99 H MCH 33 H RDW Lymph % (Auto) [place] % (Auto) [place] # Seg Neutrophils % Seg Neuts % (Manual) 88.0 H Lymphocytes % (Manual) 2.0 L Monocytes % (Manual) 8.0 H Seg Neutrophils # Seg Neutrophils # Man 13.9 H Lymphocytes # (Manual) 0.3 L Monocytes # (Manual) 1.3 H PT INR Heparin Anti-Xa Level POC ABG pH POC ABG pCO2 72.9 H POC ABG pO2 168 H Sodium 147 H Potassium 3.5 L Chloride 95.3 L Carbon Dioxide 37 H BUN 29 H Creatinine Glucose 155 H POC Glucose Calcium Phosphorus Magnesium Total Bilirubin AST Total Creatine Kinase CK-MB (CK-2) Albumin 03/18/17 03/18/17 03/18/17 08:27 11:24 11:31 WBC RBC Hgb Hct MCV MCH RDW Lymph % (Auto) [place] % (Auto) [place] # Seg Neutrophils % Seg Neuts % (Manual) Lymphocytes % (Manual) Monocytes % (Manual) Seg Neutrophils # Seg Neutrophils # Man Lymphocytes # (Manual) Monocytes # (Manual) PT INR Heparin Anti-Xa Level POC ABG pH 7.530 H POC ABG pCO2 POC ABG pO2 60 L Sodium Potassium Chloride Carbon Dioxide BUN Creatinine Glucose POC Glucose 123 H 176 H Calcium Phosphorus Magnesium Total Bilirubin AST Total Creatine Kinase CK-MB (CK-2) Albumin 03/18/17 03/18/17 03/18/17 14:10 15:24 17:23 WBC RBC Hgb 15.4 H Hct 46.4 H MCV MCH RDW Lymph % (Auto) [place] % (Auto) [place] # Seg Neutrophils % Seg Neuts % (Manual) Lymphocytes % (Manual) Monocytes % (Manual) Seg Neutrophils # Seg Neutrophils # Man Lymphocytes # (Manual) Monocytes # (Manual) PT INR Heparin Anti-Xa Level POC ABG pH POC ABG pCO2 POC ABG pO2 Sodium Potassium Chloride 94.5 L Carbon Dioxide 33 H BUN 33 H Creatinine 1.6 H Glucose 241 H POC Glucose 244 H Calcium Phosphorus Magnesium Total Bilirubin AST Total Creatine Kinase CK-MB (CK-2) Albumin 3.0 L 03/18/17 03/18/17 03/19/17 17:23 21:33 03:54 WBC 25.4 H RBC Hgb Hct MCV 98 H MCH RDW Lymph % (Auto) [place] % (Auto) [place] # Seg Neutrophils % Seg Neuts % (Manual) 83.0 H Lymphocytes % (Manual) 4.5 L Monocytes % (Manual) 8.0 H Seg Neutrophils # Seg Neutrophils # Man 21.1 H Lymphocytes # (Manual) 1.1 L Monocytes # (Manual) 2.0 H PT 17.1 H INR 1.40 H Heparin Anti-Xa Level POC ABG pH POC ABG pCO2 POC ABG pO2 Sodium Potassium Chloride Carbon Dioxide BUN Creatinine Glucose POC Glucose 164 H Calcium Phosphorus Magnesium Total Bilirubin AST Total Creatine Kinase CK-MB (CK-2) Albumin 03/19/17 03/19/17 03/19/17 03:54 06:55 06:55 WBC RBC Hgb Hct MCV MCH RDW Lymph % (Auto) [place] % (Auto) [place] # Seg Neutrophils % Seg Neuts % (Manual) Lymphocytes % (Manual) Monocytes % (Manual) Seg Neutrophils # Seg Neutrophils # Man Lymphocytes # (Manual) Monocytes # (Manual) PT INR Heparin Anti-Xa Level 0.29 L POC ABG pH POC ABG pCO2 POC ABG pO2 Sodium 146 H Potassium 3.4 L Chloride 97.8 L Carbon Dioxide 33 H BUN 30 H Creatinine Glucose 134 H POC Glucose Calcium Phosphorus Magnesium 1.60 L Total Bilirubin AST Total Creatine Kinase CK-MB (CK-2) Albumin 03/19/17 03/19/17 03/19/17 08:01 12:56 14:54 WBC RBC Hgb Hct MCV MCH RDW Lymph % (Auto) [place] % (Auto) [place] # Seg Neutrophils % Seg Neuts % (Manual) Lymphocytes % (Manual) Monocytes % (Manual) Seg Neutrophils # Seg Neutrophils # Man Lymphocytes # (Manual) Monocytes # (Manual) PT INR Heparin Anti-Xa Level POC ABG pH POC ABG pCO2 57.8 H POC ABG pO2 71 L Sodium Potassium Chloride Carbon Dioxide BUN Creatinine Glucose POC Glucose 139 H 167 H Calcium Phosphorus Magnesium Total Bilirubin AST Total Creatine Kinase CK-MB (CK-2) Albumin 03/19/17 03/19/17 03/20/17 15:53 21:04 03:36 WBC RBC Hgb 15.3 H Hct 48.1 H MCV MCH RDW Lymph % (Auto) [place] % (Auto) [place] # Seg Neutrophils % Seg Neuts % (Manual) Lymphocytes % (Manual) Monocytes % (Manual) Seg Neutrophils # Seg Neutrophils # Man Lymphocytes # (Manual) Monocytes # (Manual) PT INR Heparin Anti-Xa Level POC ABG pH POC ABG pCO2 POC ABG pO2 Sodium Potassium Chloride Carbon Dioxide BUN Creatinine Glucose POC Glucose 172 H 159 H Calcium Phosphorus Magnesium Total Bilirubin AST Total Creatine Kinase CK-MB (CK-2) Albumin 03/20/17 03/20/17 03/20/17 07:45 12:02 14:07 WBC RBC Hgb Hct MCV MCH RDW Lymph % (Auto) [place] % (Auto) [place] # Seg Neutrophils % Seg Neuts % (Manual) Lymphocytes % (Manual) Monocytes % (Manual) Seg Neutrophils # Seg Neutrophils # Man Lymphocytes # (Manual) Monocytes # (Manual) PT INR Heparin Anti-Xa Level POC ABG pH 7.312 L POC ABG pCO2 68.3 H POC ABG pO2 47 L Sodium Potassium Chloride Carbon Dioxide BUN Creatinine Glucose POC Glucose 160 H 142 H Calcium Phosphorus Magnesium Total Bilirubin AST Total Creatine Kinase CK-MB (CK-2) Albumin 03/20/17 03/20/17 03/20/17 15:57 15:59 19:50 WBC RBC Hgb Hct MCV MCH RDW Lymph % (Auto) [place] % (Auto) [place] # Seg Neutrophils % Seg Neuts % (Manual) Lymphocytes % (Manual) Monocytes % (Manual) Seg Neutrophils # Seg Neutrophils # Man Lymphocytes # (Manual) Monocytes # (Manual) PT INR Heparin Anti-Xa Level POC ABG pH 7.214 L POC ABG pCO2 82.8 H 58.7 H POC ABG pO2 69 L Sodium Potassium Chloride Carbon Dioxide BUN Creatinine Glucose POC Glucose 149 H Calcium Phosphorus Magnesium Total Bilirubin AST Total Creatine Kinase CK-MB (CK-2) Albumin 03/20/17 03/20/17 03/21/17 21:19 23:34 04:18 WBC RBC Hgb Hct MCV MCH RDW Lymph % (Auto) [place] % (Auto) [place] # Seg Neutrophils % Seg Neuts % (Manual) Lymphocytes % (Manual) Monocytes % (Manual) Seg Neutrophils # Seg Neutrophils # Man Lymphocytes # (Manual) Monocytes # (Manual) PT INR Heparin Anti-Xa Level 0.20 L POC ABG pH POC ABG pCO2 48.6 H POC ABG pO2 79 L Sodium Potassium Chloride Carbon Dioxide BUN Creatinine Glucose POC Glucose 206 H Calcium Phosphorus Magnesium Total Bilirubin AST Total Creatine Kinase CK-MB (CK-2) Albumin 03/21/17 03/21/17 03/21/17 04:21 04:21 05:23 WBC RBC Hgb Hct MCV MCH RDW Lymph % (Auto) [place] % (Auto) [place] # Seg Neutrophils % Seg Neuts % (Manual) Lymphocytes % (Manual) Monocytes % (Manual) Seg Neutrophils # Seg Neutrophils # Man Lymphocytes # (Manual) Monocytes # (Manual) PT INR Heparin Anti-Xa Level 0.24 L POC ABG pH POC ABG pCO2 POC ABG pO2 Sodium 147 H Potassium Chloride Carbon Dioxide BUN 42 H Creatinine 2.6 H D Glucose 209 H POC Glucose 181 H Calcium 7.9 L Phosphorus Magnesium Total Bilirubin AST Total Creatine Kinase CK-MB (CK-2) Albumin
[2017-03-21] MEDS: CARDIZEM/D5W 100MG/100ML 100 MG/100 ML BAG IV SCH (11:07)
[2017-03-21] MEDS: FOLVITE PO SCH (11:07)
[2017-03-21] MEDS: VITAMIN B-1 PO SCH (11:07)
[2017-03-21] MEDS: PROTONIX PO SCH (11:07)
--- NOTE | 2017-03-21 13:20 | XRay Report ---
CHEST 1 VIEW INDICATION: Right PICC placement. COMPARISON: 2:16 AM earlier today. FINDINGS: Portable, frontal chest radiograph, 1:18 PM, 03/21/2017 reveals stable cardiomediastinal silhouette, appearance of the lungs and osseous structures, providing for the difference in technique. Right upper extremity PICC tip along the distal SVC near the cavoatrial junction. Stable remainder supporting devices. CONCLUSION: Extensive right lung pneumonia with interval uncomplicated right upper extremity PICC placement and possibly developing slight left retrocardiac atelectasis/opacity. Follow up on subsequent exams as well. Thank you for the opportunity to participate in this patient's care.
[2017-03-21 13:49] LABS: Hematocrit 42.4 % (35.5-45.6); Hemoglobin 13.4 gm/dl (11.8-15.2); Mean Corpuscular HGB Conc 32 % (32-34); Mean Corpuscular Hemoglobin 32 pg (28-32); Mean Corpuscular Volume 101 fl (84-94); Platelet Count 167 K/mm3 (140-440); Red Blood Count 4.19 M/mm3 (3.65-5.03); Red Cell Distribution Width 15.1 % (13.2-15.2)
[2017-03-21 14:18] LABS: White Blood Count 27.8 K/mm3 (4.5-11.0)
[2017-03-21 14:57] LABS: ISTAT Base Excess 4; ISTAT HCO3 27.8; ISTAT PCO2 37.8 (35-45); ISTAT PH 7.474 (7.35-7.45); ISTAT PO2 59 (80-105); ISTAT SO2 92; ISTAT TCO2 29
[2017-03-21 15:06] LABS: Basophils % (Manual) 0 % (0.0-1.8); Blastocytes % (Manual) 0 %; Eosinophils % (Manual) 0 % (0.0-4.3); RBC Morphology Normal
[2017-03-21 15:07] LABS: Diff Status Complete
[2017-03-21] MEDS ORDERED: SODIUM BICARBONATE FEEDTUBE PRN (15:24)
[2017-03-21] MEDS ORDERED: SIMPLE SYRUP FEEDTUBE PRN ×2 (15:24)
[2017-03-21] MEDS ORDERED: PANCREAZE DR 10,500 UNIT FEEDTUBE PRN (15:24)
[2017-03-21 17:45] LABS: Albumin 1.7 g/dL (3.9-5); Albumin/Globulin Ratio 0.5 %; Bilirubin,Total 0.7 mg/dL (0.1-1.2); Calcium 6.8 mg/dL (8.4-10.2); Chloride 106.8 mmol/L (98-107); Potassium 3.7 mmol/L (3.6-5.0); Total Protein 5.3 g/dL (6.3-8.2)
[2017-03-21] MEDS ORDERED: NACL 0.9% 1000 ML 1,000 ML IV ONE (18:16)
[2017-03-21] MEDS ORDERED: NACL 0.9% 1000 ML 1,000 ML IV SCH (19:00)
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
[2017-03-21] MEDS: ATIVAN IV PRN (19:41)
[2017-03-21] MEDS ORDERED: CALCIUM GLUCONATE 2,000 MG in NACL 0.9% 100 ML IV ONE (20:00)
[2017-03-21] MEDS ORDERED: QUELICIN ONE (21:01)
--- NOTE | 2017-03-21 21:46 | Event Note ---
consultation request was reviewed Patient admitted with multiple health issues Currently renal function is getting worse Chart was reviewed We will order labs No acute emergent indication for dialysis right now supportive care
[2017-03-21] MEDS: HALDOL IV PRN (22:40)
[2017-03-22] MEDS: ATIVAN IV PRN (02:46)
[2017-03-22] MEDS: NOVOLOG SUB-Q SCH ×4 (02:49→17:58)
[2017-03-22 05:32] LABS: Hematocrit 40.5 % (35.5-45.6); Hemoglobin 12.7 gm/dl (11.8-15.2); Mean Corpuscular HGB Conc 31 % (32-34); Mean Corpuscular Hemoglobin 32 pg (28-32); Mean Corpuscular Volume 100 fl (84-94); Platelet Count 169 K/mm3 (140-440); Red Blood Count 4.03 M/mm3 (3.65-5.03); Red Cell Distribution Width 15.3 % (13.2-15.2)
[2017-03-22 05:38] LABS: White Blood Count 29.3 K/mm3 (4.5-11.0)
[2017-03-22 05:51] LABS: Albumin 1.8 g/dL (3.9-5); Albumin/Globulin Ratio 0.4 %; BUN/Creatinine Ratio 13.95; Bilirubin,Total 0.7 mg/dL (0.1-1.2); Calcium 8.2 mg/dL (8.4-10.2); Potassium 4.2 mmol/L (3.6-5.0); Total Protein 6.3 g/dL (6.3-8.2)
[2017-03-22 06:23] LABS: ISTAT Base Excess -1; ISTAT PCO2 41.6 (35-45); ISTAT PH 7.368 (7.35-7.45); ISTAT PO2 102 (80-105); ISTAT SO2 98; ISTAT TCO2 25
[2017-03-22] MEDS: ZOSYN/NS 4.5GM/100ML 4.5 GM/100 ML VIAL IV SCH (06:39)
[2017-03-22] MEDS: CARDIZEM/D5W 100MG/100ML 100 MG/100 ML BAG IV SCH (06:39)
[2017-03-22] MEDS: HEPARIN/ 0.45% NACL-25,000 UNIT/500 ML 25,000 UNIT/500 ML BAG IV SCH (07:09)
--- NOTE | 2017-03-22 07:17 | XRay Report ---
Single view chest: Compared to 03/21/17. History: Followup of respiratory failure. Findings: Borderline cardiomegaly. Trachea is midline. Stable support system. Pulmonary venous congestion with airspace opacities right lung. Left lung appears unremarkable. Impression: Unilateral pulmonary edema or pneumonia. No significant interval change.
[2017-03-22 07:57] LABS: Hematocrit 37.5 % (35.5-45.6); Hemoglobin 12.1 gm/dl (11.8-15.2); Mean Corpuscular HGB Conc 32 % (32-34); Mean Corpuscular Hemoglobin 32 pg (28-32); Mean Corpuscular Volume 100 fl (84-94); Platelet Count 145 K/mm3 (140-440); Red Blood Count 3.76 M/mm3 (3.65-5.03); Red Cell Distribution Width 15.1 % (13.2-15.2)
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
[2017-03-22 08:15] LABS: BUN/Creatinine Ratio 14.14; Calcium 7.4 mg/dL (8.4-10.2)
[2017-03-22 08:16] LABS: Chloride 109.2 mmol/L (98-107); Potassium 3.8 mmol/L (3.6-5.0)
--- NOTE | 2017-03-22 08:23 | Ultrasound Report ---
Renal sonogram: History: Elevated creatinine. Findings: Right kidney 12.1 x 6.9 x 7 cm. Cortical thickness 1.7 cm. Left kidney 12.1 x 7.8 x 6.9 cm. Cortical thickness 1.7 cm. Tiny echogenic focus right and left kidney suggestive nonobstructing calculus. Impression: Nonobstructing calculus right colectomy.
[2017-03-22 08:28] LABS: White Blood Count 24.8 K/mm3 (4.5-11.0)
[2017-03-22] MEDS: DUONEB *Not for PRN Use IH SCH ×3 (08:30→19:29)
--- NOTE | 2017-03-22 08:44 | Progress Note ---
Assessment and Plan Assessment and plan: Atrial fibrillation with rapid ventricular response. Ventricular rate is improving. He is on Cardizem drip and metoprolol. Heparin on hold because of gross hematuria. Acute respiratory failure. He is intubated on ventilator. Pulmonology following Acute metabolic encephalopathy. Gross hematuria. Started this morning. He does have history of non-obstructing stones both kidneys. Later discussed with Dr. Samuel,urologist. We will obtain a repeat CT abdomen and pelvis non-contrast to evaluate location of stones. Check hemoglobin and hematocrit every 8 hours. Hold heparin drip for now. Acute kidney injury. His renal function has been worsening. Creatinine 4.1 today. Nephrology following. May need hemodialysis if continues to worsen Hypernatremia DVT left lower ext. on heparin drip. This has been put temporarily on hold because of gross hematuria Full CODE STATUS History Interval history: Gross hematuria this morning Hospitalist Physical - Physical exam Narrative exam: Gen: appearance : Intubated, sedated, obese HEENT: normocephalic atraumatic Neck :no JVD Lungs: clear to auscultation bilaterally, no crackles ,or wheezes Heart:S1 and S2 regular, no murmurs no gallop Abdomen soft, non-tender, non-distended, normal bowel sounds Extremities: no edema, no clubbing, or cyanosis Neuro : Intubated, sedated Genitiurinary: Gross hematuria, visible blood - Constitutional Vitals: Temp Pulse Resp BP Pulse Ox 99.7 F H 83 24 117/78 99 03/22/17 08:00 03/22/17 08:30 03/22/17 08:30 03/22/17 08:29 03/22/17 08:29 General appearance: Present: mild distress, well-nourished, other Results - Labs CBC & Chem 7: 03/22/17 07:00 03/22/17 07:00 Labs: Laboratory Last Values WBC 24.8 K/mm3 (4.5-11.0) H 03/22/17 07:00 RBC 3.76 M/mm3 (3.65-5.03) 03/22/17 07:00 Hgb 12.1 gm/dl (11.8-15.2) 03/22/17 07:00 Hct 37.5 % (35.5-45.6) 03/22/17 07:00 MCV 100 fl (84-94) H 03/22/17 07:00 MCH 32 pg (28-32) 03/22/17 07:00 MCHC 32 % (32-34) 03/22/17 07:00 RDW 15.1 % (13.2-15.2) 03/22/17 07:00 Plt Count 145 K/mm3 (140-440) 03/22/17 07:00 Lymph % (Auto) 8.4 % (13.4-35.0) L 03/17/17 07:06 [place] % (Auto) 8.1 % (0.0-7.3) H 03/17/17 07:06 Eos % (Auto) 1.0 % (0.0-4.3) 03/17/17 07:06 Baso % (Auto) 0.7 % (0.0-1.8) 03/17/17 07:06 Lymph # 1.4 K/mm3 (1.2-5.4) 03/17/17 07:06 [place] # 1.3 K/mm3 (0.0-0.8) H 03/17/17 07:06 Eos # 0.2 K/mm3 (0.0-0.4) 03/17/17 07:06 Baso # 0.1 K/mm3 (0.0-0.1) 03/17/17 07:06 Add Manual Diff Complete 03/21/17 13:16 Total Counted 100 03/21/17 13:16 Seg Neutrophils % 81.8 % (40.0-70.0) H 03/17/17 07:06 Seg Neuts % (Manual) 76.0 % (40.0-70.0) H 03/21/17 13:16 Band Neutrophils % 11.0 % 03/21/17 13:16 Lymphocytes % (Manual) 7.0 % (13.4-35.0) L 03/21/17 13:16 Reactive Lymphs % (Man) 0 % 03/21/17 13:16 Monocytes % (Manual) 4.0 % (0.0-7.3) 03/21/17 13:16 Eosinophils % (Manual) 0 % (0.0-4.3) 03/21/17 13:16 Basophils % (Manual) 0 % (0.0-1.8) 03/21/17 13:16 Metamyelocytes % 2.0 % 03/21/17 13:16 Myelocytes % 0 % 03/21/17 13:16 Promyelocytes % 0 % 03/21/17 13:16 Blast Cells % 0 % 03/21/17 13:16 Nucleated RBC % Not Reportable 03/21/17 13:16 Seg Neutrophils # 13.6 K/mm3 (1.8-7.7) H 03/17/17 07:06 Seg Neutrophils # Man 21.1 K/mm3 (1.8-7.7) H 03/21/17 13:16 Band Neutrophils # 3.1 K/mm3 03/21/17 13:16 Lymphocytes # (Manual) 1.9 K/mm3 (1.2-5.4) 03/21/17 13:16 Abs React Lymphs (Man) 0.0 K/mm3 03/21/17 13:16 Monocytes # (Manual) 1.1 K/mm3 (0.0-0.8) H 03/21/17 13:16 Eosinophils # (Manual) 0.0 K/mm3 (0.0-0.4) 03/21/17 13:16 Basophils # (Manual) 0.0 K/mm3 (0.0-0.1) 03/21/17 13:16 Metamyelocytes # 0.6 K/mm3 03/21/17 13:16 Myelocytes # 0.0 K/mm3 03/21/17 13:16 Promyelocytes # 0.0 K/mm3 03/21/17 13:16 Blast Cells # 0.0 K/mm3 03/21/17 13:16 WBC Morphology Not Reportable 03/21/17 13:16 Hypersegmented Neuts Not Reportable 03/21/17 13:16 Hyposegmented Neuts Not Reportable 03/21/17 13:16 Hypogranular Neuts Not Reportable 03/21/17 13:16 Smudge Cells Not Reportable 03/21/17 13:16 Toxic Granulation Not Reportable 03/21/17 13:16 Toxic Vacuolation Not Reportable 03/21/17 13:16 Dohle Bodies Not Reportable 03/21/17 13:16 Pelger-Huet Anomaly Not Reportable 03/21/17 13:16 Marco Rods Not Reportable 03/21/17 13:16 Platelet Estimate Not Reportable 03/21/17 13:16 Clumped Platelets Not Reportable 03/21/17 13:16 Plt Clumps, EDTA Not Reportable 03/21/17 13:16 Large Platelets Not Reportable 03/21/17 13:16 Giant Platelets Not Reportable 03/21/17 13:16 Platelet Satelliting Not Reportable 03/21/17 13:16 Plt Morphology Comment Not Reportable 03/21/17 13:16 RBC Morphology Normal 03/21/17 13:16 Dimorphic RBCs Not Reportable 03/21/17 13:16 Polychromasia Not Reportable 03/21/17 13:16 Hypochromasia Not Reportable 03/21/17 13:16 Poikilocytosis Not Reportable 03/21/17 13:16 Anisocytosis Not Reportable 03/21/17 13:16 Microcytosis Not Reportable 03/21/17 13:16 Macrocytosis Not Reportable 03/21/17 13:16 Spherocytes Not Reportable 03/21/17 13:16 Pappenheimer Bodies Not Reportable 03/21/17 13:16 Sickle Cells Not Reportable 03/21/17 13:16 Target Cells Not Reportable 03/21/17 13:16 Tear Drop Cells Not Reportable 03/21/17 13:16 Ovalocytes Not Reportable 03/21/17 13:16 Stomatocytes Few 03/05/17 07:03 Helmet Cells Not Reportable 03/21/17 13:16 [place] Bodies Not Reportable 03/21/17 13:16 [place] Rings Not Reportable 03/21/17 13:16 [place]k Cells Not Reportable 03/21/17 13:16 Bite Cells Not Reportable 03/21/17 13:16 Crenated Cell Not Reportable 03/21/17 13:16 Elliptocytes Not Reportable 03/21/17 13:16 Acanthocytes (Spur) Not Reportable 03/21/17 13:16 Rouleaux Not Reportable 03/21/17 13:16 Hemoglobin C Crystals Not Reportable 03/21/17 13:16 Schistocytes Not Reportable 03/21/17 13:16 Malaria parasites Not Reportable 03/21/17 13:16 Nishant Bodies Not Reportable 03/21/17 13:16 Hem Pathologist Commnt No 03/21/17 13:16 PT 17.1 Sec. (12.2-14.9) H 03/18/17 17:23 INR 1.40 (0.87-1.13) H 03/18/17 17:23 APTT 30.8 Sec. (24.2-36.6) 03/18/17 17:23 Heparin Anti-Xa Level 0.29 U.I./ml (0.3-0.7) L 03/22/17 04:30 POC ABG pH 7.368 (7.35-7.45) 03/22/17 05:53 POC ABG pCO2 41.6 (35-45) 03/22/17 05:53 POC ABG pO2 102 (80-105) 03/22/17 05:53 POC ABG HCO3 24.0 03/22/17 05:53 POC ABG Total CO2 25 03/22/17 05:53 POC ABG O2 Sat 98 03/22/17 05:53 POC ABG Base Excess -1 03/22/17 05:53 FiO2 70 % 03/22/17 05:53 Sodium 147 mmol/L (137-145) H 03/22/17 07:00 Potassium 3.8 mmol/L (3.6-5.0) 03/22/17 07:00 Chloride 109.2 mmol/L (98-107) H 03/22/17 07:00 Carbon Dioxide 22 mmol/L (22-30) 03/22/17 07:00 Anion Gap 20 mmol/L 03/22/17 07:00 BUN 58 mg/dL (9-20) H 03/22/17 07:00 Creatinine 4.1 mg/dL (0.8-1.5) H 03/22/17 07:00 Estimated GFR 15 ml/min 03/22/17 07:00 BUN/Creatinine Ratio 14.14 % 03/22/17 07:00 Glucose 117 mg/dL (75-100) H 03/22/17 07:00 POC Glucose 124 (70-105) H 03/22/17 05:08 Osmolality 324 Mosm/kg 03/21/17 21:55 Lactic Acid 1.50 mmol/L (0.7-2.0) 03/16/17 13:37 Uric Acid 7.3 mg/dL (3.5-7.6) 03/21/17 22:03 Calcium 7.4 mg/dL (8.4-10.2) L 03/22/17 07:00 Phosphorus 4.60 mg/dL (2.5-4.5) H 03/06/17 04:50 Magnesium 1.60 mg/dL (1.7-2.3) L 03/19/17 06:55 Total Bilirubin 0.70 mg/dL (0.1-1.2) 03/22/17 04:30 AST 38 units/L (5-40) 03/22/17 04:30 ALT 21 units/L (7-56) 03/22/17 04:30 Alkaline Phosphatase 102 units/L (35-129) 03/22/17 04:30 Total Creatine Kinase 148 units/L (55-170) 02/27/17 13:08 CK-MB (CK-2) 4.7 ng/mL (0.0-4.0) H 02/27/17 13:08 CK-MB (CK-2) Rel Index 3.1 (0-4) 02/27/17 13:08 Troponin T < 0.010 ng/mL (0.00-0.029) 02/27/17 13:08 Total Protein 6.3 g/dL (6.3-8.2) 03/22/17 04:30 Albumin 1.8 g/dL (3.9-5) L 03/22/17 04:30 Albumin/Globulin Ratio 0.4 % 03/22/17 04:30 Triglycerides 111 mg/dL (2-149) 03/22/17 04:30 TSH 1.480 mlU/mL (0.270-4.200) 02/26/17 23:40 Free T4 1.16 ng/dL (0.76-1.46) 02/26/17 23:40 Urine Color Yellow (Yellow) 03/03/17 10:38 Urine Turbidity Clear (Clear) 03/03/17 10:38 Urine pH 5.0 (5.0-7.0) 03/03/17 10:38 Ur Specific [place] 1.012 (1.003-1.030) 03/03/17 10:38 Urine Protein <15 mg/dl mg/dL (Negative) 03/03/17 10:38 Urine Glucose (UA) Neg mg/dL (Negative) 03/03/17 10:38 Urine Ketones Neg mg/dL (Negative) 03/03/17 10:38 Urine Blood Lg (Negative) 03/03/17 10:38 Urine Nitrite Neg (Negative) 03/03/17 10:38 Urine Bilirubin Neg (Negative) 03/03/17 10:38 Urine Urobilinogen < 2.0 mg/dL (<2.0) 03/03/17 10:38 Ur Leukocyte Esterase Tr (Negative) 03/03/17 10:38 Urine WBC (Auto) 5.0 /HPF (0.0-6.0) 03/03/17 10:38 Urine RBC (Auto) 51.0 /HPF (0.0-6.0) 03/03/17 10:38 Urine Mucus Few /HPF 03/03/17 10:38 Random Vancomycin 25.3 ug/mL (0-40.0) 03/22/17 04:30 Plasma/Serum Alcohol 0.24 gm% (0-0.07) H 02/26/17 23:40
[2017-03-22 09:04] LABS: INR 1.31 (0.87-1.13)
[2017-03-22 09:37] LABS: Partial Thromboplastin Time 68.9 Sec. (24.2-36.6)
[2017-03-22 10:36] LABS: Basophils % (Manual) 0 % (0.0-1.8); Blastocytes % (Manual) 0 %
[2017-03-22 10:37] LABS: Anisocytosis 1+
[2017-03-22 10:40] LABS: Diff Status Complete; Platelet Estimate Cons; Poikilocytosis 2+; Tear Drop Cells 2+
[2017-03-22] MEDS: DIPRIVAN 10 MG/ML 1,000 MG/100 ML BOTTLE IV SCH ×2 (11:18→21:33)
[2017-03-22] MEDS: PROTONIX PO SCH (11:19)
[2017-03-22] MEDS: FOLVITE PO SCH (11:19)
[2017-03-22] MEDS: VITAMIN B-1 PO SCH (11:19)
[2017-03-22] MEDS: LOPRESSOR PO SCH ×4 (11:19→21:34)
--- NOTE | 2017-03-22 11:58 | Progress Note ---
Assessment and Plan 51 y/o male, noncompliant, with systolic heart failure, admitted with afib with RVR, and possible ETOH abuse, now with recurrent afib with RVR and likely aspiration pneumonia on the right resulting in acute respiratory failure. 1. Continue PEEP at 12, FiO2 down to 50% 2. Follow up speciation on GNR, still not back yet. Vanc is stopped 3. Per renal, needs a urology consult and ceballos drip 4. May need bronch as original tracheal aspirate is contaminated, will hold for now 5. Rate control per cards, heparin stopped by IMS secondary to bleeding this am from around catheter 6. DH and feed patient, needs more free water given increase in Na, likely was not given at night 7. Worsening renal function, may need HD CCT 31 minutes. Subjective Date of service: 03/22/17 Principal diagnosis: afib Interval history: Worsening renal function today. No urine output. Per nursing had bleeding around the catheter. Catheter removed and heparin stopped. Renal saw patient this am and feels that patient needs another catheter and possible ceballos drip. No family at bedside but per nursing and CM, there is a daughter. Objective Vital Signs - 12hr 03/22/17 03/22/17 03/22/17 00:00 01:00 02:00 Temperature 99.9 F H Pulse Rate 89 97 H 95 H Pulse Rate [ Anterior Bilateral Throughout] Pulse Rate [ 100 H From Monitor] Respiratory 19 26 H 27 H Rate Respiratory Rate [Anterior Bilateral Throughout] Blood Pressure 121/86 116/86 124/83 O2 Sat by Pulse 96 96 97 Oximetry 03/22/17 03/22/17 03/22/17 03:00 03:01 04:00 Temperature 99.5 F Pulse Rate 94 H 96 H 95 H Pulse Rate [ Anterior Bilateral Throughout] Pulse Rate [ 94 H From Monitor] Respiratory 20 24 Rate Respiratory Rate [Anterior Bilateral Throughout] Blood Pressure 127/82 127/82 118/80 O2 Sat by Pulse 99 98 99 Oximetry 03/22/17 03/22/17 03/22/17 05:00 06:00 06:28 Temperature Pulse Rate 82 94 H 84 Pulse Rate [ Anterior Bilateral Throughout] Pulse Rate [ From Monitor] Respiratory 24 24 Rate Respiratory Rate [Anterior Bilateral Throughout] Blood Pressure 120/76 124/90 127/82 O2 Sat by Pulse 99 97 99 Oximetry 03/22/17 03/22/17 03/22/17 06:39 07:00 08:00 Temperature 99.7 F H Pulse Rate 98 H 95 H Pulse Rate [ Anterior Bilateral Throughout] Pulse Rate [ From Monitor] Respiratory 24 Rate Respiratory Rate [Anterior Bilateral Throughout] Blood Pressure 124/84 121/86 O2 Sat by Pulse 99 Oximetry 03/22/17 03/22/17 03/22/17 08:21 08:29 08:30 Temperature Pulse Rate 83 86 Pulse Rate [ 83 Anterior Bilateral Throughout] Pulse Rate [ From Monitor] Respiratory Rate Respiratory 24 Rate [Anterior Bilateral Throughout] Blood Pressure 117/78 117/78 O2 Sat by Pulse 99 99 Oximetry 03/22/17 08:50 Temperature Pulse Rate Pulse Rate [ 93 H Anterior Bilateral Throughout] Pulse Rate [ From Monitor] Respiratory Rate Respiratory 24 Rate [Anterior Bilateral Throughout] Blood Pressure O2 Sat by Pulse Oximetry Constitutional: other (orally intubated, critically ill on vent) Eyes: non-icteric ENT: oropharynx moist Neck: supple Effort: mildly labored Ascultation: Right: rales (mostly on the right), rhonchi, Bilateral: clear, diminished breath sounds Cardiovascular: irregular rhythm (ir/ir; no mrg; tachy) Gastrointestinal: normoactive bowel sounds, soft, non-tender, non-distended, other (obese) Integumentary: normal Extremities: no cyanosis, no edema, pink and warm Neurologic: non-focal exam, pupils equal and round, other (opens eyes) Psychiatric: mood appropriate, affect normal CBC and BMP: 03/22/17 07:00 03/22/17 07:00 ABG, PT/INR, D-dimer: ABG POC ABG pH 7.368 (7.35-7.45) 03/22/17 05:53 POC ABG pCO2 41.6 (35-45) 03/22/17 05:53 POC ABG pO2 102 (80-105) 03/22/17 05:53 POC ABG HCO3 24.0 03/22/17 05:53 POC ABG Total CO2 25 03/22/17 05:53 POC ABG O2 Sat 98 03/22/17 05:53 PT/INR, D-dimer PT 16.2 Sec. (12.2-14.9) H 03/22/17 08:40 INR 1.31 (0.87-1.13) H 03/22/17 08:40 Abnormal lab findings: Abnormal Labs 02/27/17 02/27/17 02/27/17 03:51 05:41 08:49 WBC RBC Hgb Hct MCV MCH MCHC RDW Lymph % (Auto) [place] % (Auto) [place] # Seg Neutrophils % Seg Neuts % (Manual) Lymphocytes % (Manual) Monocytes % (Manual) Seg Neutrophils # Seg Neutrophils # Man Lymphocytes # (Manual) Monocytes # (Manual) Eosinophils # (Manual) PT INR APTT Heparin Anti-Xa Level POC ABG pH POC ABG pCO2 POC ABG pO2 Sodium Potassium Chloride Carbon Dioxide BUN Creatinine Glucose POC Glucose 131 H 139 H Calcium Phosphorus Magnesium Total Bilirubin AST Total Creatine Kinase 171 H CK-MB (CK-2) 5.8 H Total Protein Albumin 02/27/17 02/27/17 02/27/17 13:05 13:08 16:07 WBC RBC Hgb Hct MCV MCH MCHC RDW Lymph % (Auto) [place] % (Auto) [place] # Seg Neutrophils % Seg Neuts % (Manual) Lymphocytes % (Manual) Monocytes % (Manual) Seg Neutrophils # Seg Neutrophils # Man Lymphocytes # (Manual) Monocytes # (Manual) Eosinophils # (Manual) PT INR APTT Heparin Anti-Xa Level POC ABG pH POC ABG pCO2 POC ABG pO2 Sodium Potassium Chloride Carbon Dioxide BUN Creatinine Glucose POC Glucose 146 H 138 H Calcium Phosphorus Magnesium Total Bilirubin AST Total Creatine Kinase CK-MB (CK-2) 4.7 H Total Protein Albumin 02/27/17 02/28/17 02/28/17 21:40 03:32 03:32 WBC RBC Hgb 15.9 H Hct 47.6 H MCV 100 H MCH 34 H MCHC RDW 15.4 H Lymph % (Auto) [place] % (Auto) [place] # Seg Neutrophils % Seg Neuts % (Manual) Lymphocytes % (Manual) Monocytes % (Manual) Seg Neutrophils # Seg Neutrophils # Man Lymphocytes # (Manual) Monocytes # (Manual) Eosinophils # (Manual) PT INR APTT Heparin Anti-Xa Level POC ABG pH POC ABG pCO2 POC ABG pO2 Sodium Potassium Chloride 95.0 L Carbon Dioxide BUN 8 L Creatinine 0.6 L Glucose 126 H POC Glucose 140 H Calcium Phosphorus Magnesium 1.60 L Total Bilirubin AST Total Creatine Kinase CK-MB (CK-2) Total Protein Albumin 02/28/17 02/28/17 02/28/17 07:55 11:57 15:40 WBC RBC Hgb Hct MCV MCH MCHC RDW Lymph % (Auto) [place] % (Auto) [place] # Seg Neutrophils % Seg Neuts % (Manual) Lymphocytes % (Manual) Monocytes % (Manual) Seg Neutrophils # Seg Neutrophils # Man Lymphocytes # (Manual) Monocytes # (Manual) Eosinophils # (Manual) PT INR APTT Heparin Anti-Xa Level POC ABG pH POC ABG pCO2 POC ABG pO2 Sodium Potassium Chloride Carbon Dioxide BUN Creatinine Glucose POC Glucose 134 H 174 H 158 H Calcium Phosphorus Magnesium Total Bilirubin AST Total Creatine Kinase CK-MB (CK-2) Total Protein Albumin 02/28/17 03/01/17 03/01/17 21:51 07:42 10:41 WBC RBC Hgb Hct MCV MCH MCHC RDW Lymph % (Auto) [place] % (Auto) [place] # Seg Neutrophils % Seg Neuts % (Manual) Lymphocytes % (Manual) Monocytes % (Manual) Seg Neutrophils # Seg Neutrophils # Man Lymphocytes # (Manual) Monocytes # (Manual) Eosinophils # (Manual) PT INR APTT Heparin Anti-Xa Level POC ABG pH POC ABG pCO2 POC ABG pO2 Sodium Potassium Chloride Carbon Dioxide BUN Creatinine Glucose POC Glucose 127 H 146 H 176 H Calcium Phosphorus Magnesium Total Bilirubin AST Total Creatine Kinase CK-MB (CK-2) Total Protein Albumin 03/01/17 03/01/17 03/02/17 15:37 23:35 08:11 WBC RBC Hgb Hct MCV MCH MCHC RDW Lymph % (Auto) [place] % (Auto) [place] # Seg Neutrophils % Seg Neuts % (Manual) Lymphocytes % (Manual) Monocytes % (Manual) Seg Neutrophils # Seg Neutrophils # Man Lymphocytes # (Manual) Monocytes # (Manual) Eosinophils # (Manual) PT INR APTT Heparin Anti-Xa Level POC ABG pH POC ABG pCO2 POC ABG pO2 Sodium Potassium Chloride Carbon Dioxide BUN Creatinine Glucose POC Glucose 158 H 139 H 127 H Calcium Phosphorus Magnesium Total Bilirubin AST Total Creatine Kinase CK-MB (CK-2) Total Protein Albumin 03/02/17 03/02/17 03/02/17 09:12 12:03 12:37 WBC 17.9 H RBC Hgb 16.3 H Hct 49.3 H MCV 101 H MCH 33 H MCHC RDW Lymph % (Auto) 10.6 L [place] % (Auto) 13.4 H [place] # 2.4 H Seg Neutrophils % 75.2 H Seg Neuts % (Manual) Lymphocytes % (Manual) Monocytes % (Manual) Seg Neutrophils # 13.5 H Seg Neutrophils # Man Lymphocytes # (Manual) Monocytes # (Manual) Eosinophils # (Manual) PT INR APTT Heparin Anti-Xa Level POC ABG pH POC ABG pCO2 POC ABG pO2 Sodium 135 L Potassium Chloride 90.3 L Carbon Dioxide 32 H BUN Creatinine 0.6 L Glucose 124 H POC Glucose 145 H Calcium Phosphorus Magnesium Total Bilirubin AST Total Creatine Kinase CK-MB (CK-2) Total Protein Albumin 03/02/17 03/02/17 03/03/17 16:09 22:41 03:59 WBC 14.7 H RBC Hgb Hct MCV 100 H MCH 33 H MCHC RDW Lymph % (Auto) 10.9 L [place] % (Auto) 14.8 H [place] # 2.2 H Seg Neutrophils % 73.6 H Seg Neuts % (Manual) Lymphocytes % (Manual) Monocytes % (Manual) Seg Neutrophils # 10.8 H Seg Neutrophils # Man Lymphocytes # (Manual) Monocytes # (Manual) Eosinophils # (Manual) PT INR APTT Heparin Anti-Xa Level POC ABG pH POC ABG pCO2 POC ABG pO2 Sodium Potassium Chloride Carbon Dioxide BUN Creatinine Glucose POC Glucose 141 H 127 H Calcium Phosphorus Magnesium Total Bilirubin AST Total Creatine Kinase CK-MB (CK-2) Total Protein Albumin 03/03/17 03/03/17 03/03/17 04:07 09:19 11:33 WBC RBC Hgb Hct MCV MCH MCHC RDW Lymph % (Auto) [place] % (Auto) [place] # Seg Neutrophils % Seg Neuts % (Manual) Lymphocytes % (Manual) Monocytes % (Manual) Seg Neutrophils # Seg Neutrophils # Man Lymphocytes # (Manual) Monocytes # (Manual) Eosinophils # (Manual) PT INR APTT Heparin Anti-Xa Level POC ABG pH POC ABG pCO2 POC ABG pO2 Sodium Potassium 3.1 L D Chloride 91.1 L Carbon Dioxide BUN Creatinine 0.7 L Glucose 136 H POC Glucose 123 H 153 H Calcium Phosphorus Magnesium Total Bilirubin AST Total Creatine Kinase CK-MB (CK-2) Total Protein Albumin 03/03/17 03/04/17 03/04/17 15:46 05:58 06:04 WBC 11.4 H RBC Hgb Hct 46.0 H MCV 101 H MCH 33 H MCHC RDW Lymph % (Auto) [place] % (Auto) [place] # Seg Neutrophils % Seg Neuts % (Manual) 71.0 H Lymphocytes % (Manual) 13.0 L Monocytes % (Manual) 13.0 H Seg Neutrophils # Seg Neutrophils # Man 8.1 H Lymphocytes # (Manual) Monocytes # (Manual) 1.5 H Eosinophils # (Manual) PT INR APTT Heparin Anti-Xa Level POC ABG pH POC ABG pCO2 POC ABG pO2 Sodium Potassium 3.3 L Chloride 92.2 L Carbon Dioxide 33 H BUN Creatinine 0.6 L Glucose 133 H POC Glucose 131 H Calcium Phosphorus Magnesium Total Bilirubin AST Total Creatine Kinase CK-MB (CK-2) Total Protein Albumin 03/04/17 03/04/17 03/04/17 07:54 11:24 16:00 WBC RBC Hgb Hct MCV MCH MCHC RDW Lymph % (Auto) [place] % (Auto) [place] # Seg Neutrophils % Seg Neuts % (Manual) Lymphocytes % (Manual) Monocytes % (Manual) Seg Neutrophils # Seg Neutrophils # Man Lymphocytes # (Manual) Monocytes # (Manual) Eosinophils # (Manual) PT INR APTT Heparin Anti-Xa Level POC ABG pH POC ABG pCO2 POC ABG pO2 Sodium Potassium Chloride Carbon Dioxide BUN Creatinine Glucose POC Glucose 131 H 134 H 116 H Calcium Phosphorus Magnesium Total Bilirubin AST Total Creatine Kinase CK-MB (CK-2) Total Protein Albumin 03/05/17 03/05/17 03/05/17 00:39 07:03 07:03 WBC 11.4 H RBC Hgb 15.4 H Hct 46.3 H MCV 100 H MCH 33 H MCHC RDW Lymph % (Auto) [place] % (Auto) [place] # Seg Neutrophils % Seg Neuts % (Manual) Lymphocytes % (Manual) Monocytes % (Manual) 20.0 H Seg Neutrophils # Seg Neutrophils # Man Lymphocytes # (Manual) Monocytes # (Manual) 2.3 H Eosinophils # (Manual) PT INR APTT Heparin Anti-Xa Level POC ABG pH POC ABG pCO2 POC ABG pO2 Sodium Potassium 3.3 L Chloride 95.2 L Carbon Dioxide 31 H BUN Creatinine 0.6 L Glucose 137 H POC Glucose 116 H Calcium Phosphorus Magnesium Total Bilirubin AST Total Creatine Kinase CK-MB (CK-2) Total Protein Albumin 03/05/17 03/05/17 03/05/17 08:05 12:15 16:07 WBC RBC Hgb Hct MCV MCH MCHC RDW Lymph % (Auto) [place] % (Auto) [place] # Seg Neutrophils % Seg Neuts % (Manual) Lymphocytes % (Manual) Monocytes % (Manual) Seg Neutrophils # Seg Neutrophils # Man Lymphocytes # (Manual) Monocytes # (Manual) Eosinophils # (Manual) PT INR APTT Heparin Anti-Xa Level POC ABG pH POC ABG pCO2 POC ABG pO2 Sodium Potassium Chloride Carbon Dioxide BUN Creatinine Glucose POC Glucose 134 H 150 H 113 H Calcium Phosphorus Magnesium Total Bilirubin AST Total Creatine Kinase CK-MB (CK-2) Total Protein Albumin 03/06/17 03/06/17 03/06/17 04:45 04:50 11:50 WBC 11.8 H RBC Hgb 15.7 H Hct 47.1 H MCV 98 H MCH 33 H MCHC RDW Lymph % (Auto) [place] % (Auto) [place] # Seg Neutrophils % Seg Neuts % (Manual) Lymphocytes % (Manual) 13.0 L Monocytes % (Manual) 17.0 H Seg Neutrophils # Seg Neutrophils # Man Lymphocytes # (Manual) Monocytes # (Manual) 2.0 H Eosinophils # (Manual) PT INR APTT Heparin Anti-Xa Level POC ABG pH POC ABG pCO2 POC ABG pO2 Sodium Potassium 3.2 L Chloride 94.9 L Carbon Dioxide 31 H BUN Creatinine 0.6 L Glucose 125 H POC Glucose 124 H Calcium Phosphorus 4.60 H Magnesium Total Bilirubin AST Total Creatine Kinase CK-MB (CK-2) Total Protein Albumin 03/06/17 03/06/17 03/07/17 15:43 22:07 04:30 WBC RBC Hgb Hct MCV MCH MCHC RDW Lymph % (Auto) [place] % (Auto) [place] # Seg Neutrophils % Seg Neuts % (Manual) Lymphocytes % (Manual) Monocytes % (Manual) Seg Neutrophils # Seg Neutrophils # Man Lymphocytes # (Manual) Monocytes # (Manual) Eosinophils # (Manual) PT INR APTT Heparin Anti-Xa Level POC ABG pH POC ABG pCO2 POC ABG pO2 Sodium Potassium 3.4 L Chloride 95.1 L Carbon Dioxide BUN Creatinine 0.6 L Glucose 129 H POC Glucose 121 H 109 H Calcium Phosphorus Magnesium Total Bilirubin AST Total Creatine Kinase CK-MB (CK-2) Total Protein Albumin 03/07/17 03/07/17 03/07/17 04:37 12:02 15:03 WBC 11.3 H RBC Hgb Hct MCV 99 H MCH 34 H MCHC RDW Lymph % (Auto) [place] % (Auto) 14.6 H [place] # 1.6 H Seg Neutrophils % Seg Neuts % (Manual) Lymphocytes % (Manual) Monocytes % (Manual) Seg Neutrophils # Seg Neutrophils # Man Lymphocytes # (Manual) Monocytes # (Manual) Eosinophils # (Manual) PT INR APTT Heparin Anti-Xa Level POC ABG pH POC ABG pCO2 POC ABG pO2 Sodium Potassium Chloride Carbon Dioxide BUN Creatinine Glucose POC Glucose 126 H 108 H Calcium Phosphorus Magnesium Total Bilirubin AST Total Creatine Kinase CK-MB (CK-2) Total Protein Albumin 03/08/17 03/08/17 03/08/17 04:58 04:58 08:22 WBC RBC Hgb 16.4 H Hct 49.3 H MCV 99 H MCH 33 H MCHC RDW Lymph % (Auto) [place] % (Auto) 12.1 H [place] # 1.2 H Seg Neutrophils % 71.4 H Seg Neuts % (Manual) Lymphocytes % (Manual) Monocytes % (Manual) Seg Neutrophils # Seg Neutrophils # Man Lymphocytes # (Manual) Monocytes # (Manual) Eosinophils # (Manual) PT INR APTT Heparin Anti-Xa Level POC ABG pH POC ABG pCO2 POC ABG pO2 Sodium 136 L Potassium Chloride 93.7 L Carbon Dioxide BUN Creatinine 0.5 L Glucose 127 H POC Glucose 106 H Calcium Phosphorus Magnesium Total Bilirubin AST 50 H Total Creatine Kinase CK-MB (CK-2) Total Protein Albumin 2.7 L 03/08/17 03/08/17 03/09/17 12:14 17:50 05:26 WBC 11.8 H RBC Hgb 16.3 H Hct 49.1 H MCV 98 H MCH 33 H MCHC RDW Lymph % (Auto) [place] % (Auto) 10.8 H [place] # 1.3 H Seg Neutrophils % 71.8 H Seg Neuts % (Manual) Lymphocytes % (Manual) Monocytes % (Manual) Seg Neutrophils # 8.4 H Seg Neutrophils # Man Lymphocytes # (Manual) Monocytes # (Manual) Eosinophils # (Manual) PT INR APTT Heparin Anti-Xa Level POC ABG pH POC ABG pCO2 POC ABG pO2 Sodium Potassium Chloride Carbon Dioxide BUN Creatinine Glucose POC Glucose 115 H 117 H Calcium Phosphorus Magnesium Total Bilirubin AST Total Creatine Kinase CK-MB (CK-2) Total Protein Albumin 03/09/17 03/09/17 03/09/17 05:26 12:39 16:19 WBC RBC Hgb Hct MCV MCH MCHC RDW Lymph % (Auto) [place] % (Auto) [place] # Seg Neutrophils % Seg Neuts % (Manual) Lymphocytes % (Manual) Monocytes % (Manual) Seg Neutrophils # Seg Neutrophils # Man Lymphocytes # (Manual) Monocytes # (Manual) Eosinophils # (Manual) PT INR APTT Heparin Anti-Xa Level POC ABG pH POC ABG pCO2 POC ABG pO2 Sodium Potassium Chloride 94.7 L Carbon Dioxide BUN Creatinine 0.7 L Glucose 115 H POC Glucose 111 H 116 H Calcium Phosphorus Magnesium Total Bilirubin AST Total Creatine Kinase CK-MB (CK-2) Total Protein Albumin 03/09/17 03/10/17 03/10/17 22:48 08:27 11:46 WBC RBC Hgb Hct MCV MCH MCHC RDW Lymph % (Auto) [place] % (Auto) [place] # Seg Neutrophils % Seg Neuts % (Manual) Lymphocytes % (Manual) Monocytes % (Manual) Seg Neutrophils # Seg Neutrophils # Man Lymphocytes # (Manual) Monocytes # (Manual) Eosinophils # (Manual) PT INR APTT Heparin Anti-Xa Level POC ABG pH POC ABG pCO2 POC ABG pO2 Sodium Potassium Chloride Carbon Dioxide BUN Creatinine Glucose POC Glucose 106 H 107 H 116 H Calcium Phosphorus Magnesium Total Bilirubin AST Total Creatine Kinase CK-MB (CK-2) Total Protein Albumin 03/10/17 03/10/17 03/11/17 17:01 21:46 08:10 WBC RBC Hgb Hct MCV MCH MCHC RDW Lymph % (Auto) [place] % (Auto) [place] # Seg Neutrophils % Seg Neuts % (Manual) Lymphocytes % (Manual) Monocytes % (Manual) Seg Neutrophils # Seg Neutrophils # Man Lymphocytes # (Manual) Monocytes # (Manual) Eosinophils # (Manual) PT INR APTT Heparin Anti-Xa Level POC ABG pH POC ABG pCO2 POC ABG pO2 Sodium Potassium Chloride Carbon Dioxide BUN Creatinine Glucose POC Glucose 115 H 135 H 109 H Calcium Phosphorus Magnesium Total Bilirubin AST Total Creatine Kinase CK-MB (CK-2) Total Protein Albumin 03/11/17 03/11/17 03/11/17 12:12 17:45 22:14 WBC RBC Hgb Hct MCV MCH MCHC RDW Lymph % (Auto) [place] % (Auto) [place] # Seg Neutrophils % Seg Neuts % (Manual) Lymphocytes % (Manual) Monocytes % (Manual) Seg Neutrophils # Seg Neutrophils # Man Lymphocytes # (Manual) Monocytes # (Manual) Eosinophils # (Manual) PT INR APTT Heparin Anti-Xa Level POC ABG pH POC ABG pCO2 POC ABG pO2 Sodium Potassium Chloride Carbon Dioxide BUN Creatinine Glucose POC Glucose 136 H 126 H 132 H Calcium Phosphorus Magnesium Total Bilirubin AST Total Creatine Kinase CK-MB (CK-2) Total Protein Albumin 03/12/17 03/12/17 03/12/17 08:44 08:44 12:56 WBC 14.9 H RBC 5.04 H Hgb 16.1 H Hct 48.8 H MCV 97 H MCH MCHC RDW Lymph % (Auto) 11.7 L [place] % (Auto) 11.6 H [place] # 1.7 H Seg Neutrophils % 75.5 H Seg Neuts % (Manual) Lymphocytes % (Manual) Monocytes % (Manual) Seg Neutrophils # 11.2 H Seg Neutrophils # Man Lymphocytes # (Manual) Monocytes # (Manual) Eosinophils # (Manual) PT INR APTT Heparin Anti-Xa Level POC ABG pH POC ABG pCO2 POC ABG pO2 Sodium Potassium 3.2 L Chloride 93.4 L Carbon Dioxide BUN Creatinine 0.6 L Glucose 121 H POC Glucose 129 H Calcium Phosphorus Magnesium Total Bilirubin 1.30 H AST Total Creatine Kinase CK-MB (CK-2) Total Protein Albumin 3.2 L 03/12/17 03/13/17 03/13/17 17:13 09:05 11:36 WBC RBC Hgb Hct MCV MCH MCHC RDW Lymph % (Auto) [place] % (Auto) [place] # Seg Neutrophils % Seg Neuts % (Manual) Lymphocytes % (Manual) Monocytes % (Manual) Seg Neutrophils # Seg Neutrophils # Man Lymphocytes # (Manual) Monocytes # (Manual) Eosinophils # (Manual) PT INR APTT Heparin Anti-Xa Level POC ABG pH POC ABG pCO2 POC ABG pO2 Sodium Potassium Chloride Carbon Dioxide BUN Creatinine Glucose POC Glucose 161 H 110 H 126 H Calcium Phosphorus Magnesium Total Bilirubin AST Total Creatine Kinase CK-MB (CK-2) Total Protein Albumin 03/13/17 03/13/17 03/14/17 16:17 21:43 08:40 WBC RBC Hgb Hct MCV MCH MCHC RDW Lymph % (Auto) [place] % (Auto) [place] # Seg Neutrophils % Seg Neuts % (Manual) Lymphocytes % (Manual) Monocytes % (Manual) Seg Neutrophils # Seg Neutrophils # Man Lymphocytes # (Manual) Monocytes # (Manual) Eosinophils # (Manual) PT INR APTT Heparin Anti-Xa Level POC ABG pH POC ABG pCO2 POC ABG pO2 Sodium Potassium Chloride Carbon Dioxide BUN Creatinine Glucose POC Glucose 126 H 115 H 106 H Calcium Phosphorus Magnesium Total Bilirubin AST Total Creatine Kinase CK-MB (CK-2) Total Protein Albumin 03/14/17 03/14/17 03/14/17 12:01 17:39 20:30 WBC RBC Hgb Hct MCV MCH MCHC RDW Lymph % (Auto) [place] % (Auto) [place] # Seg Neutrophils % Seg Neuts % (Manual) Lymphocytes % (Manual) Monocytes % (Manual) Seg Neutrophils # Seg Neutrophils # Man Lymphocytes # (Manual) Monocytes # (Manual) Eosinophils # (Manual) PT INR APTT Heparin Anti-Xa Level POC ABG pH POC ABG pCO2 POC ABG pO2 Sodium Potassium Chloride Carbon Dioxide BUN Creatinine Glucose POC Glucose 116 H 192 H 122 H Calcium Phosphorus Magnesium Total Bilirubin AST Total Creatine Kinase CK-MB (CK-2) Total Protein Albumin 03/15/17 03/15/17 03/15/17 01:12 06:49 08:46 WBC 23.9 H RBC Hgb 16.1 H Hct 49.4 H MCV 100 H D MCH 33 H MCHC RDW Lymph % (Auto) [place] % (Auto) [place] # Seg Neutrophils % Seg Neuts % (Manual) 92.0 H Lymphocytes % (Manual) 4.0 L Monocytes % (Manual) Seg Neutrophils # Seg Neutrophils # Man 22.0 H Lymphocytes # (Manual) 1.0 L Monocytes # (Manual) 1.0 H Eosinophils # (Manual) PT INR APTT Heparin Anti-Xa Level POC ABG pH POC ABG pCO2 POC ABG pO2 Sodium Potassium Chloride 91.0 L Carbon Dioxide 33 H BUN 45 H Creatinine Glucose 160 H POC Glucose 147 H Calcium Phosphorus Magnesium Total Bilirubin AST 41 H Total Creatine Kinase CK-MB (CK-2) Total Protein Albumin 3.0 L 03/15/17 03/15/17 03/15/17 12:11 16:00 20:51 WBC RBC Hgb Hct MCV MCH MCHC RDW Lymph % (Auto) [place] % (Auto) [place] # Seg Neutrophils % Seg Neuts % (Manual) Lymphocytes % (Manual) Monocytes % (Manual) Seg Neutrophils # Seg Neutrophils # Man Lymphocytes # (Manual) Monocytes # (Manual) Eosinophils # (Manual) PT INR APTT Heparin Anti-Xa Level POC ABG pH POC ABG pCO2 POC ABG pO2 Sodium Potassium Chloride Carbon Dioxide BUN Creatinine Glucose POC Glucose 144 H 134 H 148 H Calcium Phosphorus Magnesium Total Bilirubin AST Total Creatine Kinase CK-MB (CK-2) Total Protein Albumin 03/16/17 03/16/17 03/16/17 05:59 06:02 09:15 WBC 20.9 H RBC Hgb Hct 45.8 H MCV 99 H MCH 33 H MCHC RDW Lymph % (Auto) [place] % (Auto) [place] # Seg Neutrophils % Seg Neuts % (Manual) 92.0 H Lymphocytes % (Manual) 4.0 L Monocytes % (Manual) Seg Neutrophils # Seg Neutrophils # Man 19.2 H Lymphocytes # (Manual) 0.8 L Monocytes # (Manual) Eosinophils # (Manual) PT INR APTT Heparin Anti-Xa Level POC ABG pH POC ABG pCO2 POC ABG pO2 Sodium Potassium Chloride 92.3 L Carbon Dioxide 34 H BUN 44 H Creatinine Glucose 150 H POC Glucose 127 H Calcium Phosphorus Magnesium Total Bilirubin AST Total Creatine Kinase CK-MB (CK-2) Total Protein Albumin 03/16/17 03/16/17 03/17/17 11:59 18:08 07:06 WBC RBC Hgb Hct MCV MCH MCHC RDW Lymph % (Auto) [place] % (Auto) [place] # Seg Neutrophils % Seg Neuts % (Manual) Lymphocytes % (Manual) Monocytes % (Manual) Seg Neutrophils # Seg Neutrophils # Man Lymphocytes # (Manual) Monocytes # (Manual) Eosinophils # (Manual) PT INR APTT Heparin Anti-Xa Level POC ABG pH POC ABG pCO2 POC ABG pO2 Sodium Potassium Chloride 93.3 L Carbon Dioxide 35 H BUN 31 H Creatinine Glucose 132 H POC Glucose 147 H 138 H Calcium Phosphorus Magnesium Total Bilirubin AST Total Creatine Kinase CK-MB (CK-2) Total Protein Albumin 03/17/17 03/17/17 03/17/17 07:06 07:14 12:35 WBC 16.6 H RBC Hgb 15.6 H Hct 47.5 H MCV 99 H MCH 33 H MCHC RDW Lymph % (Auto) 8.4 L [place] % (Auto) 8.1 H [place] # 1.3 H Seg Neutrophils % 81.8 H Seg Neuts % (Manual) Lymphocytes % (Manual) Monocytes % (Manual) Seg Neutrophils # 13.6 H Seg Neutrophils # Man Lymphocytes # (Manual) Monocytes # (Manual) Eosinophils # (Manual) PT INR APTT Heparin Anti-Xa Level POC ABG pH POC ABG pCO2 POC ABG pO2 Sodium Potassium Chloride Carbon Dioxide BUN Creatinine Glucose POC Glucose 119 H 132 H Calcium Phosphorus Magnesium Total Bilirubin AST Total Creatine Kinase CK-MB (CK-2) Total Protein Albumin 03/18/17 03/18/17 03/18/17 05:05 06:15 06:15 WBC 15.8 H RBC Hgb 16.5 H Hct 49.3 H MCV 99 H MCH 33 H MCHC RDW Lymph % (Auto) [place] % (Auto) [place] # Seg Neutrophils % Seg Neuts % (Manual) 88.0 H Lymphocytes % (Manual) 2.0 L Monocytes % (Manual) 8.0 H Seg Neutrophils # Seg Neutrophils # Man 13.9 H Lymphocytes # (Manual) 0.3 L Monocytes # (Manual) 1.3 H Eosinophils # (Manual) PT INR APTT Heparin Anti-Xa Level POC ABG pH POC ABG pCO2 72.9 H POC ABG pO2 168 H Sodium 147 H Potassium 3.5 L Chloride 95.3 L Carbon Dioxide 37 H BUN 29 H Creatinine Glucose 155 H POC Glucose Calcium Phosphorus Magnesium Total Bilirubin AST Total Creatine Kinase CK-MB (CK-2) Total Protein Albumin 03/18/17 03/18/17 03/18/17 08:27 11:24 11:31 WBC RBC Hgb Hct MCV MCH MCHC RDW Lymph % (Auto) [place] % (Auto) [place] # Seg Neutrophils % Seg Neuts % (Manual) Lymphocytes % (Manual) Monocytes % (Manual) Seg Neutrophils # Seg Neutrophils # Man Lymphocytes # (Manual) Monocytes # (Manual) Eosinophils # (Manual) PT INR APTT Heparin Anti-Xa Level POC ABG pH 7.530 H POC ABG pCO2 POC ABG pO2 60 L Sodium Potassium Chloride Carbon Dioxide BUN Creatinine Glucose POC Glucose 123 H 176 H Calcium Phosphorus Magnesium Total Bilirubin AST Total Creatine Kinase CK-MB (CK-2) Total Protein Albumin 03/18/17 03/18/17 03/18/17 14:10 15:24 17:23 WBC RBC Hgb 15.4 H Hct 46.4 H MCV MCH MCHC RDW Lymph % (Auto) [place] % (Auto) [place] # Seg Neutrophils % Seg Neuts % (Manual) Lymphocytes % (Manual) Monocytes % (Manual) Seg Neutrophils # Seg Neutrophils # Man Lymphocytes # (Manual) Monocytes # (Manual) Eosinophils # (Manual) PT INR APTT Heparin Anti-Xa Level POC ABG pH POC ABG pCO2 POC ABG pO2 Sodium Potassium Chloride 94.5 L Carbon Dioxide 33 H BUN 33 H Creatinine 1.6 H Glucose 241 H POC Glucose 244 H Calcium Phosphorus Magnesium Total Bilirubin AST Total Creatine Kinase CK-MB (CK-2) Total Protein Albumin 3.0 L 03/18/17 03/18/17 03/19/17 17:23 21:33 03:54 WBC 25.4 H RBC Hgb Hct MCV 98 H MCH MCHC RDW Lymph % (Auto) [place] % (Auto) [place] # Seg Neutrophils % Seg Neuts % (Manual) 83.0 H Lymphocytes % (Manual) 4.5 L Monocytes % (Manual) 8.0 H Seg Neutrophils # Seg Neutrophils # Man 21.1 H Lymphocytes # (Manual) 1.1 L Monocytes # (Manual) 2.0 H Eosinophils # (Manual) PT 17.1 H INR 1.40 H APTT Heparin Anti-Xa Level POC ABG pH POC ABG pCO2 POC ABG pO2 Sodium Potassium Chloride Carbon Dioxide BUN Creatinine Glucose POC Glucose 164 H Calcium Phosphorus Magnesium Total Bilirubin AST Total Creatine Kinase CK-MB (CK-2) Total Protein Albumin 03/19/17 03/19/17 03/19/17 03:54 06:55 06:55 WBC RBC Hgb Hct MCV MCH MCHC RDW Lymph % (Auto) [place] % (Auto) [place] # Seg Neutrophils % Seg Neuts % (Manual) Lymphocytes % (Manual) Monocytes % (Manual) Seg Neutrophils # Seg Neutrophils # Man Lymphocytes # (Manual) Monocytes # (Manual) Eosinophils # (Manual) PT INR APTT Heparin Anti-Xa Level 0.29 L POC ABG pH POC ABG pCO2 POC ABG pO2 Sodium 146 H Potassium 3.4 L Chloride 97.8 L Carbon Dioxide 33 H BUN 30 H Creatinine Glucose 134 H POC Glucose Calcium Phosphorus Magnesium 1.60 L Total Bilirubin AST Total Creatine Kinase CK-MB (CK-2) Total Protein Albumin 03/19/17 03/19/17 03/19/17 08:01 12:56 14:54 WBC RBC Hgb Hct MCV MCH MCHC RDW Lymph % (Auto) [place] % (Auto) [place] # Seg Neutrophils % Seg Neuts % (Manual) Lymphocytes % (Manual) Monocytes % (Manual) Seg Neutrophils # Seg Neutrophils # Man Lymphocytes # (Manual) Monocytes # (Manual) Eosinophils # (Manual) PT INR APTT Heparin Anti-Xa Level POC ABG pH POC ABG pCO2 57.8 H POC ABG pO2 71 L Sodium Potassium Chloride Carbon Dioxide BUN Creatinine Glucose POC Glucose 139 H 167 H Calcium Phosphorus Magnesium Total Bilirubin AST Total Creatine Kinase CK-MB (CK-2) Total Protein Albumin 03/19/17 03/19/17 03/20/17 15:53 21:04 03:36 WBC RBC Hgb 15.3 H Hct 48.1 H MCV MCH MCHC RDW Lymph % (Auto) [place] % (Auto) [place] # Seg Neutrophils % Seg Neuts % (Manual) Lymphocytes % (Manual) Monocytes % (Manual) Seg Neutrophils # Seg Neutrophils # Man Lymphocytes # (Manual) Monocytes # (Manual) Eosinophils # (Manual) PT INR APTT Heparin Anti-Xa Level POC ABG pH POC ABG pCO2 POC ABG pO2 Sodium Potassium Chloride Carbon Dioxide BUN Creatinine Glucose POC Glucose 172 H 159 H Calcium Phosphorus Magnesium Total Bilirubin AST Total Creatine Kinase CK-MB (CK-2) Total Protein Albumin 03/20/17 03/20/17 03/20/17 07:45 12:02 14:07 WBC RBC Hgb Hct MCV MCH MCHC RDW Lymph % (Auto) [place] % (Auto) [place] # Seg Neutrophils % Seg Neuts % (Manual) Lymphocytes % (Manual) Monocytes % (Manual) Seg Neutrophils # Seg Neutrophils # Man Lymphocytes # (Manual) Monocytes # (Manual) Eosinophils # (Manual) PT INR APTT Heparin Anti-Xa Level POC ABG pH 7.312 L POC ABG pCO2 68.3 H POC ABG pO2 47 L Sodium Potassium Chloride Carbon Dioxide BUN Creatinine Glucose POC Glucose 160 H 142 H Calcium Phosphorus Magnesium Total Bilirubin AST Total Creatine Kinase CK-MB (CK-2) Total Protein Albumin 03/20/17 03/20/17 03/20/17 15:57 15:59 19:50 WBC RBC Hgb Hct MCV MCH MCHC RDW Lymph % (Auto) [place] % (Auto) [place] # Seg Neutrophils % Seg Neuts % (Manual) Lymphocytes % (Manual) Monocytes % (Manual) Seg Neutrophils # Seg Neutrophils # Man Lymphocytes # (Manual) Monocytes # (Manual) Eosinophils # (Manual) PT INR APTT Heparin Anti-Xa Level POC ABG pH 7.214 L POC ABG pCO2 82.8 H 58.7 H POC ABG pO2 69 L Sodium Potassium Chloride Carbon Dioxide BUN Creatinine Glucose POC Glucose 149 H Calcium Phosphorus Magnesium Total Bilirubin AST Total Creatine Kinase CK-MB (CK-2) Total Protein Albumin 03/20/17 03/20/17 03/21/17 21:19 23:34 04:18 WBC RBC Hgb Hct MCV MCH MCHC RDW Lymph % (Auto) [place] % (Auto) [place] # Seg Neutrophils % Seg Neuts % (Manual) Lymphocytes % (Manual) Monocytes % (Manual) Seg Neutrophils # Seg Neutrophils # Man Lymphocytes # (Manual) Monocytes # (Manual) Eosinophils # (Manual) PT INR APTT Heparin Anti-Xa Level 0.20 L POC ABG pH POC ABG pCO2 48.6 H POC ABG pO2 79 L Sodium Potassium Chloride Carbon Dioxide BUN Creatinine Glucose POC Glucose 206 H Calcium Phosphorus Magnesium Total Bilirubin AST Total Creatine Kinase CK-MB (CK-2) Total Protein Albumin 03/21/17 03/21/17 03/21/17 04:21 04:21 05:23 WBC RBC Hgb Hct MCV MCH MCHC RDW Lymph % (Auto) [place] % (Auto) [place] # Seg Neutrophils % Seg Neuts % (Manual) Lymphocytes % (Manual) Monocytes % (Manual) Seg Neutrophils # Seg Neutrophils # Man Lymphocytes # (Manual) Monocytes # (Manual) Eosinophils # (Manual) PT INR APTT Heparin Anti-Xa Level 0.24 L POC ABG pH POC ABG pCO2 POC ABG pO2 Sodium 147 H Potassium Chloride Carbon Dioxide BUN 42 H Creatinine 2.6 H D Glucose 209 H POC Glucose 181 H Calcium 7.9 L Phosphorus Magnesium Total Bilirubin AST Total Creatine Kinase CK-MB (CK-2) Total Protein Albumin 03/21/17 03/21/17 03/21/17 13:16 13:16 14:43 WBC 27.8 H RBC Hgb Hct MCV 101 H D MCH MCHC RDW Lymph % (Auto) [place] % (Auto) [place] # Seg Neutrophils % Seg Neuts % (Manual) 76.0 H Lymphocytes % (Manual) 7.0 L Monocytes % (Manual) Seg Neutrophils # Seg Neutrophils # Man 21.1 H Lymphocytes # (Manual) Monocytes # (Manual) 1.1 H Eosinophils # (Manual) PT INR APTT Heparin Anti-Xa Level 0.25 L POC ABG pH 7.474 H POC ABG pCO2 POC ABG pO2 59 L Sodium Potassium Chloride Carbon Dioxide BUN Creatinine Glucose POC Glucose Calcium Phosphorus Magnesium Total Bilirubin AST Total Creatine Kinase CK-MB (CK-2) Total Protein Albumin 03/21/17 03/21/17 03/21/17 17:00 18:20 23:40 WBC RBC Hgb Hct MCV MCH MCHC RDW Lymph % (Auto) [place] % (Auto) [place] # Seg Neutrophils % Seg Neuts % (Manual) Lymphocytes % (Manual) Monocytes % (Manual) Seg Neutrophils # Seg Neutrophils # Man Lymphocytes # (Manual) Monocytes # (Manual) Eosinophils # (Manual) PT INR APTT Heparin Anti-Xa Level POC ABG pH POC ABG pCO2 POC ABG pO2 Sodium Potassium Chloride Carbon Dioxide BUN 48 H Creatinine 3.2 H Glucose 135 H POC Glucose 152 H 136 H Calcium 6.8 L Phosphorus Magnesium Total Bilirubin AST Total Creatine Kinase CK-MB (CK-2) Total Protein 5.3 L D Albumin 1.7 L 03/22/17 03/22/17 03/22/17 04:30 04:30 04:30 WBC 29.3 H RBC Hgb Hct MCV 100 H MCH MCHC 31 L RDW 15.3 H Lymph % (Auto) [place] % (Auto) [place] # Seg Neutrophils % Seg Neuts % (Manual) Lymphocytes % (Manual) Monocytes % (Manual) Seg Neutrophils # Seg Neutrophils # Man Lymphocytes # (Manual) Monocytes # (Manual) Eosinophils # (Manual) PT INR APTT Heparin Anti-Xa Level 0.29 L POC ABG pH POC ABG pCO2 POC ABG pO2 Sodium Potassium Chloride Carbon Dioxide BUN 60 H Creatinine 4.3 H Glucose 118 H POC Glucose Calcium 8.2 L D Phosphorus Magnesium Total Bilirubin AST Total Creatine Kinase CK-MB (CK-2) Total Protein Albumin 1.8 L 03/22/17 03/22/17 03/22/17 05:08 07:00 07:00 WBC 24.8 H RBC Hgb Hct MCV 100 H MCH MCHC RDW Lymph % (Auto) [place] % (Auto) [place] # Seg Neutrophils % Seg Neuts % (Manual) 94.0 H Lymphocytes % (Manual) 0 L Monocytes % (Manual) Seg Neutrophils # Seg Neutrophils # Man 23.3 H Lymphocytes # (Manual) 0.0 L Monocytes # (Manual) Eosinophils # (Manual) 0.7 H PT INR APTT Heparin Anti-Xa Level POC ABG pH POC ABG pCO2 POC ABG pO2 Sodium 147 H Potassium Chloride 109.2 H Carbon Dioxide BUN 58 H Creatinine 4.1 H Glucose 117 H POC Glucose 124 H Calcium 7.4 L Phosphorus Magnesium Total Bilirubin AST Total Creatine Kinase CK-MB (CK-2) Total Protein Albumin 03/22/17 08:40 WBC RBC Hgb Hct MCV MCH MCHC RDW Lymph % (Auto) [place] % (Auto) [place] # Seg Neutrophils % Seg Neuts % (Manual) Lymphocytes % (Manual) Monocytes % (Manual) Seg Neutrophils # Seg Neutrophils # Man Lymphocytes # (Manual) Monocytes # (Manual) Eosinophils # (Manual) PT 16.2 H INR 1.31 H APTT 68.9 H* Heparin Anti-Xa Level POC ABG pH POC ABG pCO2 POC ABG pO2 Sodium Potassium Chloride Carbon Dioxide BUN Creatinine Glucose POC Glucose Calcium Phosphorus Magnesium Total Bilirubin AST Total Creatine Kinase CK-MB (CK-2) Total Protein Albumin
[2017-03-22] MEDS ORDERED: NACL 0.9% ONE (12:00)
[2017-03-22] MEDS ORDERED: WATER FOR IRRIG STERILE ONE (12:00)
[2017-03-22] MEDS ORDERED: XYLOCAINE 2% UROJET ONE (12:00)
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
[2017-03-22] MEDS: ZOSYN/NS 2.25 GM/50ML 2.25 GM/50 ML BAG IV SCH ×2 (14:51→21:34)
[2017-03-22 14:59] LABS: Hemoglobin 11.8 gm/dl (11.8-15.2)
[2017-03-22] MEDS: NACL 0.9% IR SCH ×3 (16:00→21:32)
--- NOTE | 2017-03-22 16:11 | Cat Scan Report ---
FINAL REPORT EXAM: CT ABDOMEN PELVIS WO CON HISTORY: Gross hematuria TECHNIQUE: CT of the abdomen and pelvis without IV contrast. Coronal and sagittal reconstructed imaging provided. PRIORS: CT abdomen and pelvis February 27, 2017. Requested prior report not provided. FINDINGS: ABDOMEN: Focal consolidation with minimal air bronchograms in the right lower lung. Smaller focal atelectasis or consolidation in the left lung base. Scattered airspace infiltrates in the right middle and both lung bases. Left is less prominent compared to the right. Heart size is within normal limits. Enteric tube is present within the stomach. Stomach is otherwise unremarkable. Wall thickening and hyperemia of the gallbladder. A distinct stone is not evident on CT. Findings are suspicious for cholecystitis. Liver, spleen, pancreas, and adrenals are unremarkable. 4.9 mm stone mid to upper left kidney. Adjacent left renal stone measures 3.9 mm. 9.0 x 6.6 mm stone mid right kidney. Both kidneys do not demonstrate any hydronephrosis. There are no ureteral stones. IVC is intact. Mild to moderate aortic atherosclerotic disease. No aneurysm. No periaortic retroperitoneal mass or adenopathy. Mild to moderate stool is present within the colon. No wall thickening or inflammatory changes. Appendix is normal. Terminal ilium is unremarkable. Small bowel loops are unremarkable. No obstructive pattern. No free air or free fluid. PELVIS: Bladder is partially collapsed around a Bernardo catheter not well evaluated. Possible wall thickening and mild stranding. No pelvic mass or adenopathy. Right inguinal regions unremarkable. Fat containing left inguinal hernia without strangulation. Bones: No suspicious osseous lesions on this limited examination of the skeleton. Metastatic disease better evaluated with bone scan. Degenerative changes are in the spine. IMPRESSION: Comparison with prior will be made as an addendum once prior images and report are available. Focal consolidation in the right lower lung. Less prominent consolidation in the left lower lung. Scattered infiltrates in the right and left lower lungs. Findings may represent pneumonia, aspiration pneumonia, or pneumonitis. Gallbladder findings suggest cholecystitis. Correlation with gallbladder ultrasound may be helpful if clinically indicated. Bilateral renal stones. No hydronephrosis. No ureteral stones. Contracted bladder not well evaluated. Suspect bladder wall thickening. Please correlate for possible cystitis.
[2017-03-22 22:04] LABS: Hematocrit 33.1 % (35.5-45.6); Hemoglobin 11.6 gm/dl (11.8-15.2)
[2017-03-23] MEDS: NOVOLOG SUB-Q SCH ×4 (00:53→18:39)
[2017-03-23 04:40] LABS: ISTAT Base Excess -3; ISTAT PCO2 37.8 (35-45); ISTAT PH 7.372 (7.35-7.45); ISTAT PO2 75 (80-105); ISTAT SO2 94; ISTAT TCO2 23
[2017-03-23] MEDS: NACL 0.9% IR SCH ×2 (06:20→11:43)
[2017-03-23] MEDS: ZOSYN/NS 2.25 GM/50ML 2.25 GM/50 ML BAG IV SCH ×3 (06:20→22:08)
[2017-03-23 07:04] LABS: BUN/Creatinine Ratio 14.16; Calcium 8.1 mg/dL (8.4-10.2); Potassium 4.6 mmol/L (3.6-5.0)
[2017-03-23] MEDS: CARDIZEM/D5W 100MG/100ML 100 MG/100 ML BAG IV SCH ×2 (07:46→13:37)
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
--- NOTE | 2017-03-23 09:02 | Progress Note ---
Assessment and Plan Assessment and plan: Atrial fibrillation with rapid ventricular response. Ventricular rate is improving. He is on Cardizem drip and metoprolol. Heparin was on hold because of gross hematuria. Will resume heparin since hematuria resolved. Acute respiratory failure. He is still intubated on ventilator. Pulmonology following Acute metabolic encephalopathy. Gross hematuria yesterday, now resolved. Consulted and discussed withDr. mendoza , Urologist. . He is following patient. He does have history of non- obstructing stones both kidneys. Acute kidney injury. His renal function has been worsening. Creatinine 6.0 today from 4.1 yesterday. Nephrology following. May need hemodialysis if continues to worsen Hypernatremia. now resolved. Sodium 141 today. DVT left lower ext. Resume Heparin drip. This was temporarily on hold because of gross hematuria Full CODE STATUS History Interval history: Gross hematuria yesterday, now resolved, still intubated Hospitalist Physical - Physical exam Narrative exam: Gen: appearance : Intubated, sedated, obese HEENT: normocephalic atraumatic Neck :no JVD Lungs: clear to auscultation bilaterally, no crackles ,or wheezes Heart:S1 and S2 regular, no murmurs no gallop Abdomen soft, non-tender, non-distended, normal bowel sounds Extremities: no edema, no clubbing, or cyanosis Neuro : Intubated, sedated Genitiurinary: On [place] drip, clear urine in mendes bag - Constitutional Vitals: Temp Pulse Resp BP Pulse Ox 101.4 F H 134 H 29 H 136/93 96 03/23/17 08:00 03/23/17 07:46 03/23/17 06:00 03/23/17 07:46 03/23/17 05:00 General appearance: Present: mild distress, well-nourished, other Results - Labs CBC & Chem 7: 03/23/17 06:34 03/23/17 06:34 Labs: Laboratory Last Values WBC 24.8 K/mm3 (4.5-11.0) H 03/22/17 07:00 RBC 3.76 M/mm3 (3.65-5.03) 03/22/17 07:00 Hgb 12.0 gm/dl (11.8-15.2) 03/23/17 06:34 Hct 36.0 % (35.5-45.6) 03/23/17 06:34 MCV 100 fl (84-94) H 03/22/17 07:00 MCH 32 pg (28-32) 03/22/17 07:00 MCHC 32 % (32-34) 03/22/17 07:00 RDW 15.1 % (13.2-15.2) 03/22/17 07:00 Plt Count 145 K/mm3 (140-440) 03/22/17 07:00 Lymph % (Auto) 8.4 % (13.4-35.0) L 03/17/17 07:06 [place] % (Auto) 8.1 % (0.0-7.3) H 03/17/17 07:06 Eos % (Auto) 1.0 % (0.0-4.3) 03/17/17 07:06 Baso % (Auto) 0.7 % (0.0-1.8) 03/17/17 07:06 Lymph # 1.4 K/mm3 (1.2-5.4) 03/17/17 07:06 [place] # 1.3 K/mm3 (0.0-0.8) H 03/17/17 07:06 Eos # 0.2 K/mm3 (0.0-0.4) 03/17/17 07:06 Baso # 0.1 K/mm3 (0.0-0.1) 03/17/17 07:06 Add Manual Diff Complete 03/22/17 07:00 Total Counted 100 03/22/17 07:00 Seg Neutrophils % 81.8 % (40.0-70.0) H 03/17/17 07:06 Seg Neuts % (Manual) 94.0 % (40.0-70.0) H 03/22/17 07:00 Band Neutrophils % 1.0 % 03/22/17 07:00 Lymphocytes % (Manual) 0 % (13.4-35.0) L 03/22/17 07:00 Reactive Lymphs % (Man) 1.0 % 03/22/17 07:00 Monocytes % (Manual) 1.0 % (0.0-7.3) 03/22/17 07:00 Eosinophils % (Manual) 3.0 % (0.0-4.3) 03/22/17 07:00 Basophils % (Manual) 0 % (0.0-1.8) 03/22/17 07:00 Metamyelocytes % 0 % 03/22/17 07:00 Myelocytes % 0 % 03/22/17 07:00 Promyelocytes % 0 % 03/22/17 07:00 Blast Cells % 0 % 03/22/17 07:00 Nucleated RBC % Not Reportable 03/22/17 07:00 Seg Neutrophils # 13.6 K/mm3 (1.8-7.7) H 03/17/17 07:06 Seg Neutrophils # Man 23.3 K/mm3 (1.8-7.7) H 03/22/17 07:00 Band Neutrophils # 0.2 K/mm3 03/22/17 07:00 Lymphocytes # (Manual) 0.0 K/mm3 (1.2-5.4) L 03/22/17 07:00 Abs React Lymphs (Man) 0.2 K/mm3 03/22/17 07:00 Monocytes # (Manual) 0.2 K/mm3 (0.0-0.8) 03/22/17 07:00 Eosinophils # (Manual) 0.7 K/mm3 (0.0-0.4) H 03/22/17 07:00 Basophils # (Manual) 0.0 K/mm3 (0.0-0.1) 03/22/17 07:00 Metamyelocytes # 0.0 K/mm3 03/22/17 07:00 Myelocytes # 0.0 K/mm3 03/22/17 07:00 Promyelocytes # 0.0 K/mm3 03/22/17 07:00 Blast Cells # 0.0 K/mm3 03/22/17 07:00 WBC Morphology Not Reportable 03/22/17 07:00 Hypersegmented Neuts Not Reportable 03/22/17 07:00 Hyposegmented Neuts Not Reportable 03/22/17 07:00 Hypogranular Neuts Not Reportable 03/22/17 07:00 Smudge Cells Not Reportable 03/22/17 07:00 Toxic Granulation Not Reportable 03/22/17 07:00 Toxic Vacuolation Not Reportable 03/22/17 07:00 Dohle Bodies Not Reportable 03/22/17 07:00 Pelger-Huet Anomaly Not Reportable 03/22/17 07:00 Marco Rods Not Reportable 03/22/17 07:00 Platelet Estimate Cons 03/22/17 07:00 Clumped Platelets Not Reportable 03/22/17 07:00 Plt Clumps, EDTA Not Reportable 03/22/17 07:00 Large Platelets Not Reportable 03/22/17 07:00 Giant Platelets Not Reportable 03/22/17 07:00 Platelet Satelliting Not Reportable 03/22/17 07:00 Plt Morphology Comment Not Reportable 03/22/17 07:00 RBC Morphology Not Reportable 03/22/17 07:00 Dimorphic RBCs Not Reportable 03/22/17 07:00 Polychromasia Not Reportable 03/22/17 07:00 Hypochromasia Not Reportable 03/22/17 07:00 Poikilocytosis 2+ 03/22/17 07:00 Anisocytosis 1+ 03/22/17 07:00 Microcytosis Not Reportable 03/22/17 07:00 Macrocytosis Not Reportable 03/22/17 07:00 Spherocytes Not Reportable 03/22/17 07:00 Pappenheimer Bodies Not Reportable 03/22/17 07:00 Sickle Cells Not Reportable 03/22/17 07:00 Target Cells Not Reportable 03/22/17 07:00 Tear Drop Cells 2+ 03/22/17 07:00 Ovalocytes Not Reportable 03/22/17 07:00 Stomatocytes Few 03/05/17 07:03 Helmet Cells Not Reportable 03/22/17 07:00 Kelley-Dundas Bodies Not Reportable 03/22/17 07:00 [place] Rings Not Reportable 03/22/17 07:00 Dave Cells Not Reportable 03/22/17 07:00 Bite Cells Not Reportable 03/22/17 07:00 Crenated Cell Not Reportable 03/22/17 07:00 Elliptocytes Not Reportable 03/22/17 07:00 Acanthocytes (Spur) Not Reportable 03/22/17 07:00 Rouleaux Not Reportable 03/22/17 07:00 Hemoglobin C Crystals Not Reportable 03/22/17 07:00 Schistocytes Not Reportable 03/22/17 07:00 Malaria parasites Not Reportable 03/22/17 07:00 Nishant Bodies Not Reportable 03/22/17 07:00 Hem Pathologist Commnt No 03/22/17 07:00 PT 16.2 Sec. (12.2-14.9) H 03/22/17 08:40 INR 1.31 (0.87-1.13) H 03/22/17 08:40 APTT 68.9 Sec. (24.2-36.6) H* 03/22/17 08:40 Heparin Anti-Xa Level < 0.10 U.I./ml (0.3-0.7) L 03/22/17 14:30 POC ABG pH 7.372 (7.35-7.45) 03/23/17 04:08 POC ABG pCO2 37.8 (35-45) 03/23/17 04:08 POC ABG pO2 75 (80-105) L 03/23/17 04:08 POC ABG HCO3 22.0 03/23/17 04:08 POC ABG Total CO2 23 03/23/17 04:08 POC ABG O2 Sat 94 03/23/17 04:08 POC ABG Base Excess -3 03/23/17 04:08 FiO2 45 % 03/23/17 04:08 Sodium 141 mmol/L (137-145) 03/23/17 06:34 Potassium 4.6 mmol/L (3.6-5.0) D 03/23/17 06:34 Chloride 101.0 mmol/L (98-107) 03/23/17 06:34 Carbon Dioxide 21 mmol/L (22-30) L 03/23/17 06:34 Anion Gap 24 mmol/L 03/23/17 06:34 BUN 85 mg/dL (9-20) H 03/23/17 06:34 Creatinine 6.0 mg/dL (0.8-1.5) H 03/23/17 06:34 Estimated GFR 10 ml/min 03/23/17 06:34 BUN/Creatinine Ratio 14.16 % 03/23/17 06:34 Glucose 134 mg/dL (75-100) H 03/23/17 06:34 POC Glucose 134 (70-105) H 03/23/17 05:29 Osmolality 324 Mosm/kg 03/21/17 21:55 Lactic Acid 1.50 mmol/L (0.7-2.0) 03/16/17 13:37 Uric Acid 7.3 mg/dL (3.5-7.6) 03/21/17 22:03 Calcium 8.1 mg/dL (8.4-10.2) L 03/23/17 06:34 Phosphorus 4.60 mg/dL (2.5-4.5) H 03/06/17 04:50 Magnesium 1.60 mg/dL (1.7-2.3) L 03/19/17 06:55 Total Bilirubin 0.70 mg/dL (0.1-1.2) 03/22/17 04:30 AST 38 units/L (5-40) 03/22/17 04:30 ALT 21 units/L (7-56) 03/22/17 04:30 Alkaline Phosphatase 102 units/L (35-129) 03/22/17 04:30 Total Creatine Kinase 148 units/L (55-170) 02/27/17 13:08 CK-MB (CK-2) 4.7 ng/mL (0.0-4.0) H 02/27/17 13:08 CK-MB (CK-2) Rel Index 3.1 (0-4) 02/27/17 13:08 Troponin T < 0.010 ng/mL (0.00-0.029) 02/27/17 13:08 Total Protein 6.3 g/dL (6.3-8.2) 03/22/17 04:30 Albumin 1.8 g/dL (3.9-5) L 03/22/17 04:30 Albumin/Globulin Ratio 0.4 % 03/22/17 04:30 Triglycerides 111 mg/dL (2-149) 03/22/17 04:30 TSH 1.480 mlU/mL (0.270-4.200) 02/26/17 23:40 Free T4 1.16 ng/dL (0.76-1.46) 02/26/17 23:40 Urine Color Yellow (Yellow) 03/03/17 10:38 Urine Turbidity Clear (Clear) 03/03/17 10:38 Urine pH 5.0 (5.0-7.0) 03/03/17 10:38 Ur Specific [place] 1.012 (1.003-1.030) 03/03/17 10:38 Urine Protein <15 mg/dl mg/dL (Negative) 03/03/17 10:38 Urine Glucose (UA) Neg mg/dL (Negative) 03/03/17 10:38 Urine Ketones Neg mg/dL (Negative) 03/03/17 10:38 Urine Blood Lg (Negative) 03/03/17 10:38 Urine Nitrite Neg (Negative) 03/03/17 10:38 Urine Bilirubin Neg (Negative) 03/03/17 10:38 Urine Urobilinogen < 2.0 mg/dL (<2.0) 03/03/17 10:38 Ur Leukocyte Esterase Tr (Negative) 03/03/17 10:38 Urine WBC (Auto) 5.0 /HPF (0.0-6.0) 03/03/17 10:38 Urine RBC (Auto) 51.0 /HPF (0.0-6.0) 03/03/17 10:38 Urine Mucus Few /HPF 03/03/17 10:38 Random Vancomycin 25.3 ug/mL (0-40.0) 03/22/17 04:30 Plasma/Serum Alcohol 0.24 gm% (0-0.07) H 02/26/17 23:40
[2017-03-23] MEDS: PROTONIX PO SCH (09:06)
[2017-03-23] MEDS: LOPRESSOR PO SCH ×4 (09:06→22:08)
[2017-03-23] MEDS: VITAMIN B-1 PO SCH (09:06)
[2017-03-23] MEDS: FOLVITE PO SCH (09:07)
[2017-03-23] MEDS: TYLENOL PO PRN (09:07)
--- NOTE | 2017-03-23 09:33 | Progress Note ---
Assessment and Plan Impression: * KATHRIN--oliguric * vanco toxicity vs ATN * HTN * CM ef 40% * Afib with RVR * etoh withdrawal * asp PNA * UTI * Nephrolithiasis * Plan: * hold vancomycin * iv abx for uti * continue ivfs * urology to see. needs mendes with gtt * may need renal replacement therapy next 24 hrs if no improvement * no hydro seen on CT * strict i/os * avoid nephrotoxins * daily lytes and weight * renal us with pvr * dose meds crcl 15ml/min Subjective Date of service: 03/23/17 Principal diagnosis: afib Interval history: resting in bed, events noted Objective - Exam Narrative Exam: GEN: WDWN, NAD, HEENT: NCAT, PERRL, EOMI, OP CLEAR NECK: SUPPLE, NO THYROMEGALY, NO JVD, NO LAD CVS: irregular irregular, NORMAL S1S2 LUNGS/CHEST: scat rhonchi NORMAL CHEST EXPANSION B, GOOD AIR ENTRY B ABD: SOFT NTND, GBS, NO REBOUND OR GUARDING EXT/SKIN: NO SIGNIFICANT EDEMA OR RASH MSK: FROM X 4 EXTREMITIES NEURO: CN 2-12 GROSSLY INTACT, NO FOCAL DEFICITS - Vital Signs Vital signs: Vital Signs - 12hr 03/22/17 03/22/17 03/22/17 21:34 22:00 23:00 Temperature Pulse Rate 93 H 121 H 89 Respiratory 26 H 25 H Rate Blood Pressure 115/85 127/91 133/90 O2 Sat by Pulse 97 98 Oximetry 03/22/17 03/23/17 03/23/17 23:51 00:00 01:00 Temperature 100.3 F H Pulse Rate 107 H 100 H 100 H Respiratory 31 H 29 H Rate Blood Pressure 119/98 119/98 130/95 O2 Sat by Pulse 98 98 97 Oximetry 03/23/17 03/23/17 03/23/17 02:00 03:00 04:00 Temperature 100.5 F H Pulse Rate 103 H 108 H 112 H Respiratory 27 H 27 H 27 H Rate Blood Pressure 132/95 138/98 133/95 O2 Sat by Pulse 98 98 98 Oximetry 03/23/17 03/23/17 03/23/17 04:06 05:00 06:00 Temperature Pulse Rate 109 H 111 H 116 H Respiratory 28 H 29 H Rate Blood Pressure 133/95 133/103 143/100 O2 Sat by Pulse 98 96 Oximetry 06/07/17 06/07/17 06/07/17 07:46 08:00 09:06 Temperature 101.4 F H Pulse Rate 134 H 110 H Respiratory Rate Blood Pressure 136/93 136/92 O2 Sat by Pulse Oximetry - Lab 03/23/17 06:34 03/23/17 06:34 Most recent lab results Calcium 8.1 mg/dL (8.4-10.2) L 03/23/17 06:34 Phosphorus 4.60 mg/dL (2.5-4.5) H 03/06/17 04:50 Magnesium 1.60 mg/dL (1.7-2.3) L 03/19/17 06:55
[2017-03-23] MEDS ORDERED: NACL 0.9% 1,000 ML IV PRN ×2 (09:35→14:37)
--- NOTE | 2017-03-23 09:39 | XRay Report ---
AP chest x-ray. Findings: Since yesterday's study, there has been no interval change in the diffuse right pulmonary infiltrates. The left lung remains clear. The life support tubes are unchanged in position. Impression: No interval change in right pulmonary infiltrates.
[2017-03-23] MEDS: DUONEB *Not for PRN Use IH SCH ×3 (09:46→20:16)
[2017-03-23] MEDS ORDERED: HEPARIN 10,000 UNITS/10 ML ONE (10:19)
--- NOTE | 2017-03-23 10:53 | Progress Note ---
Assessment and Plan 51 y/o male, noncompliant, with systolic heart failure, admitted with afib with RVR, and possible ETOH abuse, now with recurrent afib with RVR and likely aspiration pneumonia on the right resulting in acute respiratory failure. 1. Continue PEEP at 12, FiO2 down to 45. Asked RT to get to 40 or less then start weaning PEEP. 2. Follow up speciation on GNR, still not back yet. Vanc is stopped, continue Zosyn 3. Clear fluid now coming from [place], no blood and back on Heparin. Can stop [place] 4. New Fever, blood x2 ordered. patient does not make urine and CXR already done. 5. Rate control per cards, heparin back on. 6. Na improved, continue Free Water at current dosing 7. Worsening renal function, HD catheter placement today and HD today 8. Overall prognosis remains guarded. CCT 31 minutes. Subjective Date of service: 03/23/17 Principal diagnosis: afib Interval history: No acute events overnight. PaO2 is improved. Down to 45%. Still at PEEP of 12. No urine output. HD is planned for later today once HD catheter is placed. Patient did spike a temp this am. No cultures were ordered. CXR is stable, no worse, no new infiltrates. GNR still have not speciated from urine Objective Vital Signs - 12hr 03/22/17 03/22/17 03/23/17 23:00 23:51 00:00 Temperature 100.3 F H Pulse Rate 89 107 H 100 H Pulse Rate [ Anterior Bilateral Throughout] Pulse Rate [ Bilateral Throughout] Respiratory 25 H 31 H Rate Respiratory Rate [Anterior Bilateral Throughout] Respiratory Rate [Bilateral Throughout] Blood Pressure 133/90 119/98 119/98 O2 Sat by Pulse 98 98 98 Oximetry 03/23/17 03/23/17 03/23/17 01:00 02:00 03:00 Temperature Pulse Rate 100 H 103 H 108 H Pulse Rate [ Anterior Bilateral Throughout] Pulse Rate [ Bilateral Throughout] Respiratory 29 H 27 H 27 H Rate Respiratory Rate [Anterior Bilateral Throughout] Respiratory Rate [Bilateral Throughout] Blood Pressure 130/95 132/95 138/98 O2 Sat by Pulse 97 98 98 Oximetry 03/23/17 03/23/17 03/23/17 04:00 04:06 05:00 Temperature 100.5 F H Pulse Rate 112 H 109 H 111 H Pulse Rate [ Anterior Bilateral Throughout] Pulse Rate [ Bilateral Throughout] Respiratory 27 H 28 H Rate Respiratory Rate [Anterior Bilateral Throughout] Respiratory Rate [Bilateral Throughout] Blood Pressure 133/95 133/95 133/103 O2 Sat by Pulse 98 98 96 Oximetry 03/23/17 03/23/17 03/23/17 06:00 07:46 08:00 Temperature 101.4 F H Pulse Rate 116 H 134 H Pulse Rate [ Anterior Bilateral Throughout] Pulse Rate [ Bilateral Throughout] Respiratory 29 H Rate Respiratory Rate [Anterior Bilateral Throughout] Respiratory Rate [Bilateral Throughout] Blood Pressure 143/100 136/93 O2 Sat by Pulse Oximetry 03/23/17 03/23/17 03/23/17 09:06 09:40 09:48 Temperature Pulse Rate 110 H 101 H Pulse Rate [ 89 Anterior Bilateral Throughout] Pulse Rate [ 90 Bilateral Throughout] Respiratory Rate Respiratory 24 Rate [Anterior Bilateral Throughout] Respiratory 26 H Rate [Bilateral Throughout] Blood Pressure 136/92 130/91 O2 Sat by Pulse 95 Oximetry 03/23/17 10:00 Temperature Pulse Rate Pulse Rate [ 90 Anterior Bilateral Throughout] Pulse Rate [ 86 Bilateral Throughout] Respiratory Rate Respiratory 24 Rate [Anterior Bilateral Throughout] Respiratory 28 H Rate [Bilateral Throughout] Blood Pressure O2 Sat by Pulse Oximetry Constitutional: other (orally intubated, critically ill on vent) Eyes: non-icteric ENT: oropharynx moist Neck: supple Effort: mildly labored Ascultation: Right: rales (mostly on the right), rhonchi, Bilateral: clear, diminished breath sounds Cardiovascular: irregular rhythm (ir/ir; no mrg; tachy) Gastrointestinal: normoactive bowel sounds, soft, non-tender, non-distended, other (obese) Integumentary: normal Extremities: no cyanosis, no edema, pink and warm Neurologic: non-focal exam, pupils equal and round, other (opens eyes) Psychiatric: mood appropriate, affect normal CBC and BMP: 03/23/17 06:34 03/23/17 06:34 ABG, PT/INR, D-dimer: ABG POC ABG pH 7.372 (7.35-7.45) 03/23/17 04:08 POC ABG pCO2 37.8 (35-45) 03/23/17 04:08 POC ABG pO2 75 (80-105) L 03/23/17 04:08 POC ABG HCO3 22.0 03/23/17 04:08 POC ABG Total CO2 23 03/23/17 04:08 POC ABG O2 Sat 94 03/23/17 04:08 PT/INR, D-dimer PT 16.2 Sec. (12.2-14.9) H 03/22/17 08:40 INR 1.31 (0.87-1.13) H 03/22/17 08:40 Abnormal lab findings: Abnormal Labs 02/27/17 02/27/17 02/27/17 03:51 05:41 08:49 WBC RBC Hgb Hct MCV MCH MCHC RDW Lymph % (Auto) [place] % (Auto) [place] # Seg Neutrophils % Seg Neuts % (Manual) Lymphocytes % (Manual) Monocytes % (Manual) Seg Neutrophils # Seg Neutrophils # Man Lymphocytes # (Manual) Monocytes # (Manual) Eosinophils # (Manual) PT INR APTT Heparin Anti-Xa Level POC ABG pH POC ABG pCO2 POC ABG pO2 Sodium Potassium Chloride Carbon Dioxide BUN Creatinine Glucose POC Glucose 131 H 139 H Calcium Phosphorus Magnesium Total Bilirubin AST Total Creatine Kinase 171 H CK-MB (CK-2) 5.8 H Total Protein Albumin 02/27/17 02/27/17 02/27/17 13:05 13:08 16:07 WBC RBC Hgb Hct MCV MCH MCHC RDW Lymph % (Auto) [place] % (Auto) [place] # Seg Neutrophils % Seg Neuts % (Manual) Lymphocytes % (Manual) Monocytes % (Manual) Seg Neutrophils # Seg Neutrophils # Man Lymphocytes # (Manual) Monocytes # (Manual) Eosinophils # (Manual) PT INR APTT Heparin Anti-Xa Level POC ABG pH POC ABG pCO2 POC ABG pO2 Sodium Potassium Chloride Carbon Dioxide BUN Creatinine Glucose POC Glucose 146 H 138 H Calcium Phosphorus Magnesium Total Bilirubin AST Total Creatine Kinase CK-MB (CK-2) 4.7 H Total Protein Albumin 02/27/17 02/28/17 02/28/17 21:40 03:32 03:32 WBC RBC Hgb 15.9 H Hct 47.6 H MCV 100 H MCH 34 H MCHC RDW 15.4 H Lymph % (Auto) [place] % (Auto) [place] # Seg Neutrophils % Seg Neuts % (Manual) Lymphocytes % (Manual) Monocytes % (Manual) Seg Neutrophils # Seg Neutrophils # Man Lymphocytes # (Manual) Monocytes # (Manual) Eosinophils # (Manual) PT INR APTT Heparin Anti-Xa Level POC ABG pH POC ABG pCO2 POC ABG pO2 Sodium Potassium Chloride 95.0 L Carbon Dioxide BUN 8 L Creatinine 0.6 L Glucose 126 H POC Glucose 140 H Calcium Phosphorus Magnesium 1.60 L Total Bilirubin AST Total Creatine Kinase CK-MB (CK-2) Total Protein Albumin 02/28/17 02/28/17 02/28/17 07:55 11:57 15:40 WBC RBC Hgb Hct MCV MCH MCHC RDW Lymph % (Auto) [place] % (Auto) [place] # Seg Neutrophils % Seg Neuts % (Manual) Lymphocytes % (Manual) Monocytes % (Manual) Seg Neutrophils # Seg Neutrophils # Man Lymphocytes # (Manual) Monocytes # (Manual) Eosinophils # (Manual) PT INR APTT Heparin Anti-Xa Level POC ABG pH POC ABG pCO2 POC ABG pO2 Sodium Potassium Chloride Carbon Dioxide BUN Creatinine Glucose POC Glucose 134 H 174 H 158 H Calcium Phosphorus Magnesium Total Bilirubin AST Total Creatine Kinase CK-MB (CK-2) Total Protein Albumin 02/28/17 03/01/17 03/01/17 21:51 07:42 10:41 WBC RBC Hgb Hct MCV MCH MCHC RDW Lymph % (Auto) [place] % (Auto) [place] # Seg Neutrophils % Seg Neuts % (Manual) Lymphocytes % (Manual) Monocytes % (Manual) Seg Neutrophils # Seg Neutrophils # Man Lymphocytes # (Manual) Monocytes # (Manual) Eosinophils # (Manual) PT INR APTT Heparin Anti-Xa Level POC ABG pH POC ABG pCO2 POC ABG pO2 Sodium Potassium Chloride Carbon Dioxide BUN Creatinine Glucose POC Glucose 127 H 146 H 176 H Calcium Phosphorus Magnesium Total Bilirubin AST Total Creatine Kinase CK-MB (CK-2) Total Protein Albumin 03/01/17 03/01/17 03/02/17 15:37 23:35 08:11 WBC RBC Hgb Hct MCV MCH MCHC RDW Lymph % (Auto) [place] % (Auto) [place] # Seg Neutrophils % Seg Neuts % (Manual) Lymphocytes % (Manual) Monocytes % (Manual) Seg Neutrophils # Seg Neutrophils # Man Lymphocytes # (Manual) Monocytes # (Manual) Eosinophils # (Manual) PT INR APTT Heparin Anti-Xa Level POC ABG pH POC ABG pCO2 POC ABG pO2 Sodium Potassium Chloride Carbon Dioxide BUN Creatinine Glucose POC Glucose 158 H 139 H 127 H Calcium Phosphorus Magnesium Total Bilirubin AST Total Creatine Kinase CK-MB (CK-2) Total Protein Albumin 03/02/17 03/02/17 03/02/17 09:12 12:03 12:37 WBC 17.9 H RBC Hgb 16.3 H Hct 49.3 H MCV 101 H MCH 33 H MCHC RDW Lymph % (Auto) 10.6 L [place] % (Auto) 13.4 H [place] # 2.4 H Seg Neutrophils % 75.2 H Seg Neuts % (Manual) Lymphocytes % (Manual) Monocytes % (Manual) Seg Neutrophils # 13.5 H Seg Neutrophils # Man Lymphocytes # (Manual) Monocytes # (Manual) Eosinophils # (Manual) PT INR APTT Heparin Anti-Xa Level POC ABG pH POC ABG pCO2 POC ABG pO2 Sodium 135 L Potassium Chloride 90.3 L Carbon Dioxide 32 H BUN Creatinine 0.6 L Glucose 124 H POC Glucose 145 H Calcium Phosphorus Magnesium Total Bilirubin AST Total Creatine Kinase CK-MB (CK-2) Total Protein Albumin 03/02/17 03/02/17 03/03/17 16:09 22:41 03:59 WBC 14.7 H RBC Hgb Hct MCV 100 H MCH 33 H MCHC RDW Lymph % (Auto) 10.9 L [place] % (Auto) 14.8 H [place] # 2.2 H Seg Neutrophils % 73.6 H Seg Neuts % (Manual) Lymphocytes % (Manual) Monocytes % (Manual) Seg Neutrophils # 10.8 H Seg Neutrophils # Man Lymphocytes # (Manual) Monocytes # (Manual) Eosinophils # (Manual) PT INR APTT Heparin Anti-Xa Level POC ABG pH POC ABG pCO2 POC ABG pO2 Sodium Potassium Chloride Carbon Dioxide BUN Creatinine Glucose POC Glucose 141 H 127 H Calcium Phosphorus Magnesium Total Bilirubin AST Total Creatine Kinase CK-MB (CK-2) Total Protein Albumin 03/03/17 03/03/17 03/03/17 04:07 09:19 11:33 WBC RBC Hgb Hct MCV MCH MCHC RDW Lymph % (Auto) [place] % (Auto) [place] # Seg Neutrophils % Seg Neuts % (Manual) Lymphocytes % (Manual) Monocytes % (Manual) Seg Neutrophils # Seg Neutrophils # Man Lymphocytes # (Manual) Monocytes # (Manual) Eosinophils # (Manual) PT INR APTT Heparin Anti-Xa Level POC ABG pH POC ABG pCO2 POC ABG pO2 Sodium Potassium 3.1 L D Chloride 91.1 L Carbon Dioxide BUN Creatinine 0.7 L Glucose 136 H POC Glucose 123 H 153 H Calcium Phosphorus Magnesium Total Bilirubin AST Total Creatine Kinase CK-MB (CK-2) Total Protein Albumin 03/03/17 03/04/17 03/04/17 15:46 05:58 06:04 WBC 11.4 H RBC Hgb Hct 46.0 H MCV 101 H MCH 33 H MCHC RDW Lymph % (Auto) [place] % (Auto) [place] # Seg Neutrophils % Seg Neuts % (Manual) 71.0 H Lymphocytes % (Manual) 13.0 L Monocytes % (Manual) 13.0 H Seg Neutrophils # Seg Neutrophils # Man 8.1 H Lymphocytes # (Manual) Monocytes # (Manual) 1.5 H Eosinophils # (Manual) PT INR APTT Heparin Anti-Xa Level POC ABG pH POC ABG pCO2 POC ABG pO2 Sodium Potassium 3.3 L Chloride 92.2 L Carbon Dioxide 33 H BUN Creatinine 0.6 L Glucose 133 H POC Glucose 131 H Calcium Phosphorus Magnesium Total Bilirubin AST Total Creatine Kinase CK-MB (CK-2) Total Protein Albumin 03/04/17 03/04/17 03/04/17 07:54 11:24 16:00 WBC RBC Hgb Hct MCV MCH MCHC RDW Lymph % (Auto) [place] % (Auto) [place] # Seg Neutrophils % Seg Neuts % (Manual) Lymphocytes % (Manual) Monocytes % (Manual) Seg Neutrophils # Seg Neutrophils # Man Lymphocytes # (Manual) Monocytes # (Manual) Eosinophils # (Manual) PT INR APTT Heparin Anti-Xa Level POC ABG pH POC ABG pCO2 POC ABG pO2 Sodium Potassium Chloride Carbon Dioxide BUN Creatinine Glucose POC Glucose 131 H 134 H 116 H Calcium Phosphorus Magnesium Total Bilirubin AST Total Creatine Kinase CK-MB (CK-2) Total Protein Albumin 03/05/17 03/05/17 03/05/17 00:39 07:03 07:03 WBC 11.4 H RBC Hgb 15.4 H Hct 46.3 H MCV 100 H MCH 33 H MCHC RDW Lymph % (Auto) [place] % (Auto) [place] # Seg Neutrophils % Seg Neuts % (Manual) Lymphocytes % (Manual) Monocytes % (Manual) 20.0 H Seg Neutrophils # Seg Neutrophils # Man Lymphocytes # (Manual) Monocytes # (Manual) 2.3 H Eosinophils # (Manual) PT INR APTT Heparin Anti-Xa Level POC ABG pH POC ABG pCO2 POC ABG pO2 Sodium Potassium 3.3 L Chloride 95.2 L Carbon Dioxide 31 H BUN Creatinine 0.6 L Glucose 137 H POC Glucose 116 H Calcium Phosphorus Magnesium Total Bilirubin AST Total Creatine Kinase CK-MB (CK-2) Total Protein Albumin 03/05/17 03/05/17 03/05/17 08:05 12:15 16:07 WBC RBC Hgb Hct MCV MCH MCHC RDW Lymph % (Auto) [place] % (Auto) [place] # Seg Neutrophils % Seg Neuts % (Manual) Lymphocytes % (Manual) Monocytes % (Manual) Seg Neutrophils # Seg Neutrophils # Man Lymphocytes # (Manual) Monocytes # (Manual) Eosinophils # (Manual) PT INR APTT Heparin Anti-Xa Level POC ABG pH POC ABG pCO2 POC ABG pO2 Sodium Potassium Chloride Carbon Dioxide BUN Creatinine Glucose POC Glucose 134 H 150 H 113 H Calcium Phosphorus Magnesium Total Bilirubin AST Total Creatine Kinase CK-MB (CK-2) Total Protein Albumin 03/06/17 03/06/17 03/06/17 04:45 04:50 11:50 WBC 11.8 H RBC Hgb 15.7 H Hct 47.1 H MCV 98 H MCH 33 H MCHC RDW Lymph % (Auto) [place] % (Auto) [place] # Seg Neutrophils % Seg Neuts % (Manual) Lymphocytes % (Manual) 13.0 L Monocytes % (Manual) 17.0 H Seg Neutrophils # Seg Neutrophils # Man Lymphocytes # (Manual) Monocytes # (Manual) 2.0 H Eosinophils # (Manual) PT INR APTT Heparin Anti-Xa Level POC ABG pH POC ABG pCO2 POC ABG pO2 Sodium Potassium 3.2 L Chloride 94.9 L Carbon Dioxide 31 H BUN Creatinine 0.6 L Glucose 125 H POC Glucose 124 H Calcium Phosphorus 4.60 H Magnesium Total Bilirubin AST Total Creatine Kinase CK-MB (CK-2) Total Protein Albumin 03/06/17 03/06/17 03/07/17 15:43 22:07 04:30 WBC RBC Hgb Hct MCV MCH MCHC RDW Lymph % (Auto) [place] % (Auto) [place] # Seg Neutrophils % Seg Neuts % (Manual) Lymphocytes % (Manual) Monocytes % (Manual) Seg Neutrophils # Seg Neutrophils # Man Lymphocytes # (Manual) Monocytes # (Manual) Eosinophils # (Manual) PT INR APTT Heparin Anti-Xa Level POC ABG pH POC ABG pCO2 POC ABG pO2 Sodium Potassium 3.4 L Chloride 95.1 L Carbon Dioxide BUN Creatinine 0.6 L Glucose 129 H POC Glucose 121 H 109 H Calcium Phosphorus Magnesium Total Bilirubin AST Total Creatine Kinase CK-MB (CK-2) Total Protein Albumin 03/07/17 03/07/17 03/07/17 04:37 12:02 15:03 WBC 11.3 H RBC Hgb Hct MCV 99 H MCH 34 H MCHC RDW Lymph % (Auto) [place] % (Auto) 14.6 H [place] # 1.6 H Seg Neutrophils % Seg Neuts % (Manual) Lymphocytes % (Manual) Monocytes % (Manual) Seg Neutrophils # Seg Neutrophils # Man Lymphocytes # (Manual) Monocytes # (Manual) Eosinophils # (Manual) PT INR APTT Heparin Anti-Xa Level POC ABG pH POC ABG pCO2 POC ABG pO2 Sodium Potassium Chloride Carbon Dioxide BUN Creatinine Glucose POC Glucose 126 H 108 H Calcium Phosphorus Magnesium Total Bilirubin AST Total Creatine Kinase CK-MB (CK-2) Total Protein Albumin 03/08/17 03/08/17 03/08/17 04:58 04:58 08:22 WBC RBC Hgb 16.4 H Hct 49.3 H MCV 99 H MCH 33 H MCHC RDW Lymph % (Auto) [place] % (Auto) 12.1 H [place] # 1.2 H Seg Neutrophils % 71.4 H Seg Neuts % (Manual) Lymphocytes % (Manual) Monocytes % (Manual) Seg Neutrophils # Seg Neutrophils # Man Lymphocytes # (Manual) Monocytes # (Manual) Eosinophils # (Manual) PT INR APTT Heparin Anti-Xa Level POC ABG pH POC ABG pCO2 POC ABG pO2 Sodium 136 L Potassium Chloride 93.7 L Carbon Dioxide BUN Creatinine 0.5 L Glucose 127 H POC Glucose 106 H Calcium Phosphorus Magnesium Total Bilirubin AST 50 H Total Creatine Kinase CK-MB (CK-2) Total Protein Albumin 2.7 L 03/08/17 03/08/17 03/09/17 12:14 17:50 05:26 WBC 11.8 H RBC Hgb 16.3 H Hct 49.1 H MCV 98 H MCH 33 H MCHC RDW Lymph % (Auto) [place] % (Auto) 10.8 H [place] # 1.3 H Seg Neutrophils % 71.8 H Seg Neuts % (Manual) Lymphocytes % (Manual) Monocytes % (Manual) Seg Neutrophils # 8.4 H Seg Neutrophils # Man Lymphocytes # (Manual) Monocytes # (Manual) Eosinophils # (Manual) PT INR APTT Heparin Anti-Xa Level POC ABG pH POC ABG pCO2 POC ABG pO2 Sodium Potassium Chloride Carbon Dioxide BUN Creatinine Glucose POC Glucose 115 H 117 H Calcium Phosphorus Magnesium Total Bilirubin AST Total Creatine Kinase CK-MB (CK-2) Total Protein Albumin 03/09/17 03/09/17 03/09/17 05:26 12:39 16:19 WBC RBC Hgb Hct MCV MCH MCHC RDW Lymph % (Auto) [place] % (Auto) [place] # Seg Neutrophils % Seg Neuts % (Manual) Lymphocytes % (Manual) Monocytes % (Manual) Seg Neutrophils # Seg Neutrophils # Man Lymphocytes # (Manual) Monocytes # (Manual) Eosinophils # (Manual) PT INR APTT Heparin Anti-Xa Level POC ABG pH POC ABG pCO2 POC ABG pO2 Sodium Potassium Chloride 94.7 L Carbon Dioxide BUN Creatinine 0.7 L Glucose 115 H POC Glucose 111 H 116 H Calcium Phosphorus Magnesium Total Bilirubin AST Total Creatine Kinase CK-MB (CK-2) Total Protein Albumin 03/09/17 03/10/17 03/10/17 22:48 08:27 11:46 WBC RBC Hgb Hct MCV MCH MCHC RDW Lymph % (Auto) [place] % (Auto) [place] # Seg Neutrophils % Seg Neuts % (Manual) Lymphocytes % (Manual) Monocytes % (Manual) Seg Neutrophils # Seg Neutrophils # Man Lymphocytes # (Manual) Monocytes # (Manual) Eosinophils # (Manual) PT INR APTT Heparin Anti-Xa Level POC ABG pH POC ABG pCO2 POC ABG pO2 Sodium Potassium Chloride Carbon Dioxide BUN Creatinine Glucose POC Glucose 106 H 107 H 116 H Calcium Phosphorus Magnesium Total Bilirubin AST Total Creatine Kinase CK-MB (CK-2) Total Protein Albumin 03/10/17 03/10/17 03/11/17 17:01 21:46 08:10 WBC RBC Hgb Hct MCV MCH MCHC RDW Lymph % (Auto) [place] % (Auto) [place] # Seg Neutrophils % Seg Neuts % (Manual) Lymphocytes % (Manual) Monocytes % (Manual) Seg Neutrophils # Seg Neutrophils # Man Lymphocytes # (Manual) Monocytes # (Manual) Eosinophils # (Manual) PT INR APTT Heparin Anti-Xa Level POC ABG pH POC ABG pCO2 POC ABG pO2 Sodium Potassium Chloride Carbon Dioxide BUN Creatinine Glucose POC Glucose 115 H 135 H 109 H Calcium Phosphorus Magnesium Total Bilirubin AST Total Creatine Kinase CK-MB (CK-2) Total Protein Albumin 03/11/17 03/11/17 03/11/17 12:12 17:45 22:14 WBC RBC Hgb Hct MCV MCH MCHC RDW Lymph % (Auto) [place] % (Auto) [place] # Seg Neutrophils % Seg Neuts % (Manual) Lymphocytes % (Manual) Monocytes % (Manual) Seg Neutrophils # Seg Neutrophils # Man Lymphocytes # (Manual) Monocytes # (Manual) Eosinophils # (Manual) PT INR APTT Heparin Anti-Xa Level POC ABG pH POC ABG pCO2 POC ABG pO2 Sodium Potassium Chloride Carbon Dioxide BUN Creatinine Glucose POC Glucose 136 H 126 H 132 H Calcium Phosphorus Magnesium Total Bilirubin AST Total Creatine Kinase CK-MB (CK-2) Total Protein Albumin 03/12/17 03/12/17 03/12/17 08:44 08:44 12:56 WBC 14.9 H RBC 5.04 H Hgb 16.1 H Hct 48.8 H MCV 97 H MCH MCHC RDW Lymph % (Auto) 11.7 L [place] % (Auto) 11.6 H [place] # 1.7 H Seg Neutrophils % 75.5 H Seg Neuts % (Manual) Lymphocytes % (Manual) Monocytes % (Manual) Seg Neutrophils # 11.2 H Seg Neutrophils # Man Lymphocytes # (Manual) Monocytes # (Manual) Eosinophils # (Manual) PT INR APTT Heparin Anti-Xa Level POC ABG pH POC ABG pCO2 POC ABG pO2 Sodium Potassium 3.2 L Chloride 93.4 L Carbon Dioxide BUN Creatinine 0.6 L Glucose 121 H POC Glucose 129 H Calcium Phosphorus Magnesium Total Bilirubin 1.30 H AST Total Creatine Kinase CK-MB (CK-2) Total Protein Albumin 3.2 L 03/12/17 03/13/17 03/13/17 17:13 09:05 11:36 WBC RBC Hgb Hct MCV MCH MCHC RDW Lymph % (Auto) [place] % (Auto) [place] # Seg Neutrophils % Seg Neuts % (Manual) Lymphocytes % (Manual) Monocytes % (Manual) Seg Neutrophils # Seg Neutrophils # Man Lymphocytes # (Manual) Monocytes # (Manual) Eosinophils # (Manual) PT INR APTT Heparin Anti-Xa Level POC ABG pH POC ABG pCO2 POC ABG pO2 Sodium Potassium Chloride Carbon Dioxide BUN Creatinine Glucose POC Glucose 161 H 110 H 126 H Calcium Phosphorus Magnesium Total Bilirubin AST Total Creatine Kinase CK-MB (CK-2) Total Protein Albumin 03/13/17 03/13/17 03/14/17 16:17 21:43 08:40 WBC RBC Hgb Hct MCV MCH MCHC RDW Lymph % (Auto) [place] % (Auto) [place] # Seg Neutrophils % Seg Neuts % (Manual) Lymphocytes % (Manual) Monocytes % (Manual) Seg Neutrophils # Seg Neutrophils # Man Lymphocytes # (Manual) Monocytes # (Manual) Eosinophils # (Manual) PT INR APTT Heparin Anti-Xa Level POC ABG pH POC ABG pCO2 POC ABG pO2 Sodium Potassium Chloride Carbon Dioxide BUN Creatinine Glucose POC Glucose 126 H 115 H 106 H Calcium Phosphorus Magnesium Total Bilirubin AST Total Creatine Kinase CK-MB (CK-2) Total Protein Albumin 03/14/17 03/14/17 03/14/17 12:01 17:39 20:30 WBC RBC Hgb Hct MCV MCH MCHC RDW Lymph % (Auto) [place] % (Auto) [place] # Seg Neutrophils % Seg Neuts % (Manual) Lymphocytes % (Manual) Monocytes % (Manual) Seg Neutrophils # Seg Neutrophils # Man Lymphocytes # (Manual) Monocytes # (Manual) Eosinophils # (Manual) PT INR APTT Heparin Anti-Xa Level POC ABG pH POC ABG pCO2 POC ABG pO2 Sodium Potassium Chloride Carbon Dioxide BUN Creatinine Glucose POC Glucose 116 H 192 H 122 H Calcium Phosphorus Magnesium Total Bilirubin AST Total Creatine Kinase CK-MB (CK-2) Total Protein Albumin 03/15/17 03/15/17 03/15/17 01:12 06:49 08:46 WBC 23.9 H RBC Hgb 16.1 H Hct 49.4 H MCV 100 H D MCH 33 H MCHC RDW Lymph % (Auto) [place] % (Auto) [place] # Seg Neutrophils % Seg Neuts % (Manual) 92.0 H Lymphocytes % (Manual) 4.0 L Monocytes % (Manual) Seg Neutrophils # Seg Neutrophils # Man 22.0 H Lymphocytes # (Manual) 1.0 L Monocytes # (Manual) 1.0 H Eosinophils # (Manual) PT INR APTT Heparin Anti-Xa Level POC ABG pH POC ABG pCO2 POC ABG pO2 Sodium Potassium Chloride 91.0 L Carbon Dioxide 33 H BUN 45 H Creatinine Glucose 160 H POC Glucose 147 H Calcium Phosphorus Magnesium Total Bilirubin AST 41 H Total Creatine Kinase CK-MB (CK-2) Total Protein Albumin 3.0 L 03/15/17 03/15/17 03/15/17 12:11 16:00 20:51 WBC RBC Hgb Hct MCV MCH MCHC RDW Lymph % (Auto) [place] % (Auto) [place] # Seg Neutrophils % Seg Neuts % (Manual) Lymphocytes % (Manual) Monocytes % (Manual) Seg Neutrophils # Seg Neutrophils # Man Lymphocytes # (Manual) Monocytes # (Manual) Eosinophils # (Manual) PT INR APTT Heparin Anti-Xa Level POC ABG pH POC ABG pCO2 POC ABG pO2 Sodium Potassium Chloride Carbon Dioxide BUN Creatinine Glucose POC Glucose 144 H 134 H 148 H Calcium Phosphorus Magnesium Total Bilirubin AST Total Creatine Kinase CK-MB (CK-2) Total Protein Albumin 03/16/17 03/16/17 03/16/17 05:59 06:02 09:15 WBC 20.9 H RBC Hgb Hct 45.8 H MCV 99 H MCH 33 H MCHC RDW Lymph % (Auto) [place] % (Auto) [place] # Seg Neutrophils % Seg Neuts % (Manual) 92.0 H Lymphocytes % (Manual) 4.0 L Monocytes % (Manual) Seg Neutrophils # Seg Neutrophils # Man 19.2 H Lymphocytes # (Manual) 0.8 L Monocytes # (Manual) Eosinophils # (Manual) PT INR APTT Heparin Anti-Xa Level POC ABG pH POC ABG pCO2 POC ABG pO2 Sodium Potassium Chloride 92.3 L Carbon Dioxide 34 H BUN 44 H Creatinine Glucose 150 H POC Glucose 127 H Calcium Phosphorus Magnesium Total Bilirubin AST Total Creatine Kinase CK-MB (CK-2) Total Protein Albumin 03/16/17 03/16/17 03/17/17 11:59 18:08 07:06 WBC RBC Hgb Hct MCV MCH MCHC RDW Lymph % (Auto) [place] % (Auto) [place] # Seg Neutrophils % Seg Neuts % (Manual) Lymphocytes % (Manual) Monocytes % (Manual) Seg Neutrophils # Seg Neutrophils # Man Lymphocytes # (Manual) Monocytes # (Manual) Eosinophils # (Manual) PT INR APTT Heparin Anti-Xa Level POC ABG pH POC ABG pCO2 POC ABG pO2 Sodium Potassium Chloride 93.3 L Carbon Dioxide 35 H BUN 31 H Creatinine Glucose 132 H POC Glucose 147 H 138 H Calcium Phosphorus Magnesium Total Bilirubin AST Total Creatine Kinase CK-MB (CK-2) Total Protein Albumin 03/17/17 03/17/17 03/17/17 07:06 07:14 12:35 WBC 16.6 H RBC Hgb 15.6 H Hct 47.5 H MCV 99 H MCH 33 H MCHC RDW Lymph % (Auto) 8.4 L [place] % (Auto) 8.1 H [place] # 1.3 H Seg Neutrophils % 81.8 H Seg Neuts % (Manual) Lymphocytes % (Manual) Monocytes % (Manual) Seg Neutrophils # 13.6 H Seg Neutrophils # Man Lymphocytes # (Manual) Monocytes # (Manual) Eosinophils # (Manual) PT INR APTT Heparin Anti-Xa Level POC ABG pH POC ABG pCO2 POC ABG pO2 Sodium Potassium Chloride Carbon Dioxide BUN Creatinine Glucose POC Glucose 119 H 132 H Calcium Phosphorus Magnesium Total Bilirubin AST Total Creatine Kinase CK-MB (CK-2) Total Protein Albumin 03/18/17 03/18/17 03/18/17 05:05 06:15 06:15 WBC 15.8 H RBC Hgb 16.5 H Hct 49.3 H MCV 99 H MCH 33 H MCHC RDW Lymph % (Auto) [place] % (Auto) [place] # Seg Neutrophils % Seg Neuts % (Manual) 88.0 H Lymphocytes % (Manual) 2.0 L Monocytes % (Manual) 8.0 H Seg Neutrophils # Seg Neutrophils # Man 13.9 H Lymphocytes # (Manual) 0.3 L Monocytes # (Manual) 1.3 H Eosinophils # (Manual) PT INR APTT Heparin Anti-Xa Level POC ABG pH POC ABG pCO2 72.9 H POC ABG pO2 168 H Sodium 147 H Potassium 3.5 L Chloride 95.3 L Carbon Dioxide 37 H BUN 29 H Creatinine Glucose 155 H POC Glucose Calcium Phosphorus Magnesium Total Bilirubin AST Total Creatine Kinase CK-MB (CK-2) Total Protein Albumin 03/18/17 03/18/17 03/18/17 08:27 11:24 11:31 WBC RBC Hgb Hct MCV MCH MCHC RDW Lymph % (Auto) [place] % (Auto) [place] # Seg Neutrophils % Seg Neuts % (Manual) Lymphocytes % (Manual) Monocytes % (Manual) Seg Neutrophils # Seg Neutrophils # Man Lymphocytes # (Manual) Monocytes # (Manual) Eosinophils # (Manual) PT INR APTT Heparin Anti-Xa Level POC ABG pH 7.530 H POC ABG pCO2 POC ABG pO2 60 L Sodium Potassium Chloride Carbon Dioxide BUN Creatinine Glucose POC Glucose 123 H 176 H Calcium Phosphorus Magnesium Total Bilirubin AST Total Creatine Kinase CK-MB (CK-2) Total Protein Albumin 03/18/17 03/18/17 03/18/17 14:10 15:24 17:23 WBC RBC Hgb 15.4 H Hct 46.4 H MCV MCH MCHC RDW Lymph % (Auto) [place] % (Auto) [place] # Seg Neutrophils % Seg Neuts % (Manual) Lymphocytes % (Manual) Monocytes % (Manual) Seg Neutrophils # Seg Neutrophils # Man Lymphocytes # (Manual) Monocytes # (Manual) Eosinophils # (Manual) PT INR APTT Heparin Anti-Xa Level POC ABG pH POC ABG pCO2 POC ABG pO2 Sodium Potassium Chloride 94.5 L Carbon Dioxide 33 H BUN 33 H Creatinine 1.6 H Glucose 241 H POC Glucose 244 H Calcium Phosphorus Magnesium Total Bilirubin AST Total Creatine Kinase CK-MB (CK-2) Total Protein Albumin 3.0 L 03/18/17 03/18/17 03/19/17 17:23 21:33 03:54 WBC 25.4 H RBC Hgb Hct MCV 98 H MCH MCHC RDW Lymph % (Auto) [place] % (Auto) [place] # Seg Neutrophils % Seg Neuts % (Manual) 83.0 H Lymphocytes % (Manual) 4.5 L Monocytes % (Manual) 8.0 H Seg Neutrophils # Seg Neutrophils # Man 21.1 H Lymphocytes # (Manual) 1.1 L Monocytes # (Manual) 2.0 H Eosinophils # (Manual) PT 17.1 H INR 1.40 H APTT Heparin Anti-Xa Level POC ABG pH POC ABG pCO2 POC ABG pO2 Sodium Potassium Chloride Carbon Dioxide BUN Creatinine Glucose POC Glucose 164 H Calcium Phosphorus Magnesium Total Bilirubin AST Total Creatine Kinase CK-MB (CK-2) Total Protein Albumin 03/19/17 03/19/17 03/19/17 03:54 06:55 06:55 WBC RBC Hgb Hct MCV MCH MCHC RDW Lymph % (Auto) [place] % (Auto) [place] # Seg Neutrophils % Seg Neuts % (Manual) Lymphocytes % (Manual) Monocytes % (Manual) Seg Neutrophils # Seg Neutrophils # Man Lymphocytes # (Manual) Monocytes # (Manual) Eosinophils # (Manual) PT INR APTT Heparin Anti-Xa Level 0.29 L POC ABG pH POC ABG pCO2 POC ABG pO2 Sodium 146 H Potassium 3.4 L Chloride 97.8 L Carbon Dioxide 33 H BUN 30 H Creatinine Glucose 134 H POC Glucose Calcium Phosphorus Magnesium 1.60 L Total Bilirubin AST Total Creatine Kinase CK-MB (CK-2) Total Protein Albumin 03/19/17 03/19/17 03/19/17 08:01 12:56 14:54 WBC RBC Hgb Hct MCV MCH MCHC RDW Lymph % (Auto) [place] % (Auto) [place] # Seg Neutrophils % Seg Neuts % (Manual) Lymphocytes % (Manual) Monocytes % (Manual) Seg Neutrophils # Seg Neutrophils # Man Lymphocytes # (Manual) Monocytes # (Manual) Eosinophils # (Manual) PT INR APTT Heparin Anti-Xa Level POC ABG pH POC ABG pCO2 57.8 H POC ABG pO2 71 L Sodium Potassium Chloride Carbon Dioxide BUN Creatinine Glucose POC Glucose 139 H 167 H Calcium Phosphorus Magnesium Total Bilirubin AST Total Creatine Kinase CK-MB (CK-2) Total Protein Albumin 03/19/17 03/19/17 03/20/17 15:53 21:04 03:36 WBC RBC Hgb 15.3 H Hct 48.1 H MCV MCH MCHC RDW Lymph % (Auto) [place] % (Auto) [place] # Seg Neutrophils % Seg Neuts % (Manual) Lymphocytes % (Manual) Monocytes % (Manual) Seg Neutrophils # Seg Neutrophils # Man Lymphocytes # (Manual) Monocytes # (Manual) Eosinophils # (Manual) PT INR APTT Heparin Anti-Xa Level POC ABG pH POC ABG pCO2 POC ABG pO2 Sodium Potassium Chloride Carbon Dioxide BUN Creatinine Glucose POC Glucose 172 H 159 H Calcium Phosphorus Magnesium Total Bilirubin AST Total Creatine Kinase CK-MB (CK-2) Total Protein Albumin 03/20/17 03/20/17 03/20/17 07:45 12:02 14:07 WBC RBC Hgb Hct MCV MCH MCHC RDW Lymph % (Auto) [place] % (Auto) [place] # Seg Neutrophils % Seg Neuts % (Manual) Lymphocytes % (Manual) Monocytes % (Manual) Seg Neutrophils # Seg Neutrophils # Man Lymphocytes # (Manual) Monocytes # (Manual) Eosinophils # (Manual) PT INR APTT Heparin Anti-Xa Level POC ABG pH 7.312 L POC ABG pCO2 68.3 H POC ABG pO2 47 L Sodium Potassium Chloride Carbon Dioxide BUN Creatinine Glucose POC Glucose 160 H 142 H Calcium Phosphorus Magnesium Total Bilirubin AST Total Creatine Kinase CK-MB (CK-2) Total Protein Albumin 03/20/17 03/20/17 03/20/17 15:57 15:59 19:50 WBC RBC Hgb Hct MCV MCH MCHC RDW Lymph % (Auto) [place] % (Auto) [place] # Seg Neutrophils % Seg Neuts % (Manual) Lymphocytes % (Manual) Monocytes % (Manual) Seg Neutrophils # Seg Neutrophils # Man Lymphocytes # (Manual) Monocytes # (Manual) Eosinophils # (Manual) PT INR APTT Heparin Anti-Xa Level POC ABG pH 7.214 L POC ABG pCO2 82.8 H 58.7 H POC ABG pO2 69 L Sodium Potassium Chloride Carbon Dioxide BUN Creatinine Glucose POC Glucose 149 H Calcium Phosphorus Magnesium Total Bilirubin AST Total Creatine Kinase CK-MB (CK-2) Total Protein Albumin 03/20/17 03/20/17 03/21/17 21:19 23:34 04:18 WBC RBC Hgb Hct MCV MCH MCHC RDW Lymph % (Auto) [place] % (Auto) [place] # Seg Neutrophils % Seg Neuts % (Manual) Lymphocytes % (Manual) Monocytes % (Manual) Seg Neutrophils # Seg Neutrophils # Man Lymphocytes # (Manual) Monocytes # (Manual) Eosinophils # (Manual) PT INR APTT Heparin Anti-Xa Level 0.20 L POC ABG pH POC ABG pCO2 48.6 H POC ABG pO2 79 L Sodium Potassium Chloride Carbon Dioxide BUN Creatinine Glucose POC Glucose 206 H Calcium Phosphorus Magnesium Total Bilirubin AST Total Creatine Kinase CK-MB (CK-2) Total Protein Albumin 03/21/17 03/21/17 03/21/17 04:21 04:21 05:23 WBC RBC Hgb Hct MCV MCH MCHC RDW Lymph % (Auto) [place] % (Auto) [place] # Seg Neutrophils % Seg Neuts % (Manual) Lymphocytes % (Manual) Monocytes % (Manual) Seg Neutrophils # Seg Neutrophils # Man Lymphocytes # (Manual) Monocytes # (Manual) Eosinophils # (Manual) PT INR APTT Heparin Anti-Xa Level 0.24 L POC ABG pH POC ABG pCO2 POC ABG pO2 Sodium 147 H Potassium Chloride Carbon Dioxide BUN 42 H Creatinine 2.6 H D Glucose 209 H POC Glucose 181 H Calcium 7.9 L Phosphorus Magnesium Total Bilirubin AST Total Creatine Kinase CK-MB (CK-2) Total Protein Albumin 03/21/17 03/21/17 03/21/17 13:16 13:16 14:43 WBC 27.8 H RBC Hgb Hct MCV 101 H D MCH MCHC RDW Lymph % (Auto) [place] % (Auto) [place] # Seg Neutrophils % Seg Neuts % (Manual) 76.0 H Lymphocytes % (Manual) 7.0 L Monocytes % (Manual) Seg Neutrophils # Seg Neutrophils # Man 21.1 H Lymphocytes # (Manual) Monocytes # (Manual) 1.1 H Eosinophils # (Manual) PT INR APTT Heparin Anti-Xa Level 0.25 L POC ABG pH 7.474 H POC ABG pCO2 POC ABG pO2 59 L Sodium Potassium Chloride Carbon Dioxide BUN Creatinine Glucose POC Glucose Calcium Phosphorus Magnesium Total Bilirubin AST Total Creatine Kinase CK-MB (CK-2) Total Protein Albumin 03/21/17 03/21/17 03/21/17 17:00 18:20 23:40 WBC RBC Hgb Hct MCV MCH MCHC RDW Lymph % (Auto) [place] % (Auto) [place] # Seg Neutrophils % Seg Neuts % (Manual) Lymphocytes % (Manual) Monocytes % (Manual) Seg Neutrophils # Seg Neutrophils # Man Lymphocytes # (Manual) Monocytes # (Manual) Eosinophils # (Manual) PT INR APTT Heparin Anti-Xa Level POC ABG pH POC ABG pCO2 POC ABG pO2 Sodium Potassium Chloride Carbon Dioxide BUN 48 H Creatinine 3.2 H Glucose 135 H POC Glucose 152 H 136 H Calcium 6.8 L Phosphorus Magnesium Total Bilirubin AST Total Creatine Kinase CK-MB (CK-2) Total Protein 5.3 L D Albumin 1.7 L 03/22/17 03/22/17 03/22/17 04:30 04:30 04:30 WBC 29.3 H RBC Hgb Hct MCV 100 H MCH MCHC 31 L RDW 15.3 H Lymph % (Auto) [place] % (Auto) [place] # Seg Neutrophils % Seg Neuts % (Manual) Lymphocytes % (Manual) Monocytes % (Manual) Seg Neutrophils # Seg Neutrophils # Man Lymphocytes # (Manual) Monocytes # (Manual) Eosinophils # (Manual) PT INR APTT Heparin Anti-Xa Level 0.29 L POC ABG pH POC ABG pCO2 POC ABG pO2 Sodium Potassium Chloride Carbon Dioxide BUN 60 H Creatinine 4.3 H Glucose 118 H POC Glucose Calcium 8.2 L D Phosphorus Magnesium Total Bilirubin AST Total Creatine Kinase CK-MB (CK-2) Total Protein Albumin 1.8 L 03/22/17 03/22/17 03/22/17 05:08 07:00 07:00 WBC 24.8 H RBC Hgb Hct MCV 100 H MCH MCHC RDW Lymph % (Auto) [place] % (Auto) [place] # Seg Neutrophils % Seg Neuts % (Manual) 94.0 H Lymphocytes % (Manual) 0 L Monocytes % (Manual) Seg Neutrophils # Seg Neutrophils # Man 23.3 H Lymphocytes # (Manual) 0.0 L Monocytes # (Manual) Eosinophils # (Manual) 0.7 H PT INR APTT Heparin Anti-Xa Level POC ABG pH POC ABG pCO2 POC ABG pO2 Sodium 147 H Potassium Chloride 109.2 H Carbon Dioxide BUN 58 H Creatinine 4.1 H Glucose 117 H POC Glucose 124 H Calcium 7.4 L Phosphorus Magnesium Total Bilirubin AST Total Creatine Kinase CK-MB (CK-2) Total Protein Albumin 03/22/17 03/22/17 03/22/17 08:40 11:37 14:30 WBC RBC Hgb Hct MCV MCH MCHC RDW Lymph % (Auto) [place] % (Auto) [place] # Seg Neutrophils % Seg Neuts % (Manual) Lymphocytes % (Manual) Monocytes % (Manual) Seg Neutrophils # Seg Neutrophils # Man Lymphocytes # (Manual) Monocytes # (Manual) Eosinophils # (Manual) PT 16.2 H INR 1.31 H APTT 68.9 H* Heparin Anti-Xa Level < 0.10 L POC ABG pH POC ABG pCO2 POC ABG pO2 Sodium Potassium Chloride Carbon Dioxide BUN Creatinine Glucose POC Glucose 159 H Calcium Phosphorus Magnesium Total Bilirubin AST Total Creatine Kinase CK-MB (CK-2) Total Protein Albumin 03/22/17 03/22/17 03/22/17 17:53 21:44 23:54 WBC RBC Hgb 11.6 L Hct 33.1 L MCV MCH MCHC RDW Lymph % (Auto) [place] % (Auto) [place] # Seg Neutrophils % Seg Neuts % (Manual) Lymphocytes % (Manual) Monocytes % (Manual) Seg Neutrophils # Seg Neutrophils # Man Lymphocytes # (Manual) Monocytes # (Manual) Eosinophils # (Manual) PT INR APTT Heparin Anti-Xa Level POC ABG pH POC ABG pCO2 POC ABG pO2 Sodium Potassium Chloride Carbon Dioxide BUN Creatinine Glucose POC Glucose 142 H 131 H Calcium Phosphorus Magnesium Total Bilirubin AST Total Creatine Kinase CK-MB (CK-2) Total Protein Albumin 03/23/17 03/23/17 03/23/17 04:08 05:29 06:34 WBC RBC Hgb Hct MCV MCH MCHC RDW Lymph % (Auto) [place] % (Auto) [place] # Seg Neutrophils % Seg Neuts % (Manual) Lymphocytes % (Manual) Monocytes % (Manual) Seg Neutrophils # Seg Neutrophils # Man Lymphocytes # (Manual) Monocytes # (Manual) Eosinophils # (Manual) PT INR APTT Heparin Anti-Xa Level POC ABG pH POC ABG pCO2 POC ABG pO2 75 L Sodium Potassium Chloride Carbon Dioxide 21 L BUN 85 H Creatinine 6.0 H Glucose 134 H POC Glucose 134 H Calcium 8.1 L Phosphorus Magnesium Total Bilirubin AST Total Creatine Kinase CK-MB (CK-2) Total Protein Albumin
[2017-03-23] MEDS: CARDIZEM PO SCH ×2 (11:29→18:23)
[2017-03-23] MEDS: DIPRIVAN 10 MG/ML 1,000 MG/100 ML BOTTLE IV SCH ×2 (11:29→22:08)
--- NOTE | 2017-03-23 11:49 | XRay Report ---
AP CHEST History: Vas-Cath placement. Findings: A right IJ vas catheter has been inserted since earlier today at 0158 hrs. which terminates at the cavoatrial junction. The right arm PICC, endotracheal tube and feeding tube remain in good position. Patchy infiltrate throughout the right lung is stable. The left lung remains clear. Heart and mediastinal structures are unremarkable. Impression: Right IJ Vas-Cath as described. No pneumothorax.
[2017-03-23] MEDS ORDERED: NACL 0.9% 500 ML 500 ML ONE (12:19)
[2017-03-23] MEDS: HEPARIN/ 0.45% NACL-25,000 UNIT/500 ML 25,000 UNIT/500 ML BAG IV SCH (12:22)
--- NOTE | 2017-03-23 13:42 | Operative Report ---
Operative Report Operative Report: Procedure: Placement of a right internal jugular temporary dialysis catheter at bedside. Date of Procedure: 03/23/2017 History/Indication: This is a 51 year old male with acute renal failure. Impression: Successful placement of a dual lumen temporary dialysis catheter via the right internal jugular vein. Physician: Obey Gomez MD Technique/Procedural Details: Informed consent was obtained. The patient's right neck was prepped and draped in the usual sterile fashion. After administration of local anesthetic, the right internal jugular vein was accessed under continuous ultrasound guidance, with an 18-gauge needle. A J-wire was advanced through the needle, and the needle was exchanged for a tissue dilator. After tissue dilation, the temporary dialysis catheter was advanced over the wire. The wire was removed. All lumens were aspirated and flushed. A heparin lock was instilled in each lumen. A sterile dressing was placed. There were no complications. Discussion: A dual lumen temporary dialysis catheter catheter was successfully placed. The right internal jugular vein is patent and compressible. Specimen: None EBL: <5 cc
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
[2017-03-23] MEDS: HEPARIN IV PRN (16:07)
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
[2017-03-24] MEDS: CARDIZEM PO SCH ×5 (01:04→23:46)
[2017-03-24] MEDS: HEPARIN/ 0.45% NACL-25,000 UNIT/500 ML 25,000 UNIT/500 ML BAG IV SCH ×2 (03:22→15:16)
[2017-03-24 04:52] LABS: Hematocrit 34.6 % (35.5-45.6); Hemoglobin 11.6 gm/dl (11.8-15.2); Mean Corpuscular HGB Conc 34 % (32-34); Mean Corpuscular Hemoglobin 32 pg (28-32); Mean Corpuscular Volume 97 fl (84-94); Platelet Count 122 K/mm3 (140-440); Red Blood Count 3.58 M/mm3 (3.65-5.03); Red Cell Distribution Width 14.9 % (13.2-15.2)
[2017-03-24 05:03] LABS: White Blood Count 23.9 K/mm3 (4.5-11.0)
[2017-03-24 05:04] LABS: BUN/Creatinine Ratio 13.65; Potassium 4.5 mmol/L (3.6-5.0)
[2017-03-24] MEDS: NOVOLOG SUB-Q SCH ×4 (05:23→18:54)
[2017-03-24] MEDS: ZOSYN/NS 2.25 GM/50ML 2.25 GM/50 ML BAG IV SCH ×3 (05:50→21:41)
[2017-03-24 05:53] LABS: ISTAT Base Excess -1; ISTAT HCO3 23.5; ISTAT PCO2 37.1 (35-45); ISTAT PH 7.409 (7.35-7.45); ISTAT PO2 72 (80-105); ISTAT SO2 95; ISTAT TCO2 25
--- NOTE | 2017-03-24 07:28 | XRay Report ---
AP CHEST: HISTORY: Followup respiratory failure Lines and tubes remain in good position. No significant change in the right lung infiltrate and small right pleural effusion is demonstrated since yesterday's exam. The left lung remains clear. Heart and mediastinal structures are within normal limits. IMPRESSION: No change.
[2017-03-24] MEDS: FOLVITE PO SCH (09:27)
[2017-03-24] MEDS: LOPRESSOR PO SCH ×4 (09:27→21:41)
[2017-03-24] MEDS: PROTONIX PO SCH (09:28)
[2017-03-24] MEDS: VITAMIN B-1 PO SCH (09:28)
[2017-03-24] MEDS: DIPRIVAN 10 MG/ML 1,000 MG/100 ML BOTTLE IV SCH ×2 (09:28→23:47)
[2017-03-24] MEDS: DUONEB *Not for PRN Use IH SCH ×3 (09:29→20:21)
[2017-03-24] MEDS: CARDIZEM/D5W 100MG/100ML 100 MG/100 ML BAG IV SCH (11:41)
--- NOTE | 2017-03-24 11:49 | Progress Note ---
Assessment and Plan 51 y/o male, noncompliant, with systolic heart failure, admitted with afib with RVR, and possible ETOH abuse, now with recurrent afib with RVR and likely aspiration pneumonia on the right resulting in acute respiratory failure. 1. I dropped PEEP to 10 today. Wean FiO2 and PEEP for sats >88%. ABG this am was good. 2. Follow up speciation on GNR, still not back yet. Vanc is stopped, continue Zosyn 3. Appreciated Urology. [place] stopped. 4. Fever curve trending down. 100.5 at midnight. Continue Zosyn for now. Hopeful that GNR is not ESBL. Clinically appears to be stable. 5. Rate control per cards, heparin back on. 6. Na improved, continue Free Water at current dosing 7. Await renal assessment, may need HD again today. 8. Overall prognosis remains guarded. 9. Added PRN Ativan so that we can start weaning Propofol CCT 31 minutes. Subjective Date of service: 03/24/17 Principal diagnosis: afib Interval history: HD on yesterday, tolerated well. No family at bedside. Making some urine this am. GNR in urine still not speciated yet. Remains on Zosyn. Has not had a sedation vacation today. Objective Vital Signs - 12hr 03/24/17 03/24/17 03/24/17 00:00 00:09 00:30 Temperature 100.5 F H Pulse Rate 95 H 100 H 96 H Pulse Rate [ Anterior Bilateral Throughout] Pulse Rate [ Bilateral Throughout] Pulse Rate [ From Monitor] Respiratory 25 H 25 H Rate Respiratory Rate [Anterior Bilateral Throughout] Respiratory Rate [Bilateral Throughout] Blood Pressure 123/89 123/89 120/79 O2 Sat by Pulse 95 96 95 Oximetry 03/24/17 03/24/17 03/24/17 01:00 01:04 01:30 Temperature Pulse Rate 89 89 92 H Pulse Rate [ Anterior Bilateral Throughout] Pulse Rate [ Bilateral Throughout] Pulse Rate [ From Monitor] Respiratory 24 26 H Rate Respiratory Rate [Anterior Bilateral Throughout] Respiratory Rate [Bilateral Throughout] Blood Pressure 129/87 115/80 122/90 O2 Sat by Pulse 92 Oximetry 03/24/17 03/24/17 03/24/17 02:00 02:30 03:00 Temperature Pulse Rate 94 H 93 H 89 Pulse Rate [ Anterior Bilateral Throughout] Pulse Rate [ Bilateral Throughout] Pulse Rate [ From Monitor] Respiratory 25 H 27 H 25 H Rate Respiratory Rate [Anterior Bilateral Throughout] Respiratory Rate [Bilateral Throughout] Blood Pressure 123/74 126/98 122/86 O2 Sat by Pulse 90 94 96 Oximetry 03/24/17 03/24/17 03/24/17 03:30 04:00 04:30 Temperature 100.0 F H Pulse Rate 93 H 99 H 101 H Pulse Rate [ Anterior Bilateral Throughout] Pulse Rate [ Bilateral Throughout] Pulse Rate [ From Monitor] Respiratory 24 24 24 Rate Respiratory Rate [Anterior Bilateral Throughout] Respiratory Rate [Bilateral Throughout] Blood Pressure 123/87 128/88 124/82 O2 Sat by Pulse 97 95 96 Oximetry 03/24/17 03/24/17 03/24/17 05:00 05:30 05:50 Temperature Pulse Rate 98 H 98 H 94 H Pulse Rate [ Anterior Bilateral Throughout] Pulse Rate [ Bilateral Throughout] Pulse Rate [ From Monitor] Respiratory 24 24 Rate Respiratory Rate [Anterior Bilateral Throughout] Respiratory Rate [Bilateral Throughout] Blood Pressure 133/90 124/85 124/85 O2 Sat by Pulse 95 Oximetry 03/24/17 03/24/17 03/24/17 06:00 06:30 07:00 Temperature Pulse Rate 90 104 H 105 H Pulse Rate [ Anterior Bilateral Throughout] Pulse Rate [ Bilateral Throughout] Pulse Rate [ From Monitor] Respiratory 25 H 25 H 25 H Rate Respiratory Rate [Anterior Bilateral Throughout] Respiratory Rate [Bilateral Throughout] Blood Pressure 129/95 140/86 134/92 O2 Sat by Pulse 97 95 95 Oximetry 03/24/17 03/24/17 03/24/17 07:30 08:00 08:30 Temperature 100 F H Pulse Rate 99 H 103 H 108 H Pulse Rate [ Anterior Bilateral Throughout] Pulse Rate [ Bilateral Throughout] Pulse Rate [ 102 H From Monitor] Respiratory 27 H 26 H 28 H Rate Respiratory Rate [Anterior Bilateral Throughout] Respiratory Rate [Bilateral Throughout] Blood Pressure 132/90 133/92 134/97 O2 Sat by Pulse 94 95 95 Oximetry 03/24/17 03/24/17 03/24/17 09:00 09:27 09:30 Temperature Pulse Rate 107 H 103 H 97 H Pulse Rate [ Anterior Bilateral Throughout] Pulse Rate [ Bilateral Throughout] Pulse Rate [ From Monitor] Respiratory 26 H 24 Rate Respiratory Rate [Anterior Bilateral Throughout] Respiratory Rate [Bilateral Throughout] Blood Pressure 137/100 132/106 129/95 O2 Sat by Pulse 96 95 Oximetry 03/24/17 03/24/17 03/24/17 09:34 09:40 09:58 Temperature Pulse Rate 93 H Pulse Rate [ 96 H 99 H Anterior Bilateral Throughout] Pulse Rate [ 96 H 97 H Bilateral Throughout] Pulse Rate [ From Monitor] Respiratory Rate Respiratory 22 24 Rate [Anterior Bilateral Throughout] Respiratory 22 24 Rate [Bilateral Throughout] Blood Pressure 129/95 O2 Sat by Pulse 93 Oximetry 03/24/17 03/24/17 10:00 11:41 Temperature Pulse Rate 91 H 102 H Pulse Rate [ Anterior Bilateral Throughout] Pulse Rate [ Bilateral Throughout] Pulse Rate [ From Monitor] Respiratory 24 Rate Respiratory Rate [Anterior Bilateral Throughout] Respiratory Rate [Bilateral Throughout] Blood Pressure 128/93 127/93 O2 Sat by Pulse 95 Oximetry Constitutional: other (orally intubated, critically ill on vent) Eyes: non-icteric ENT: oropharynx moist Neck: supple Effort: mildly labored Ascultation: Right: rales (mostly on the right), rhonchi, Bilateral: clear, diminished breath sounds Cardiovascular: irregular rhythm (ir/ir; no mrg; tachy) Gastrointestinal: normoactive bowel sounds, soft, non-tender, non-distended, other (obese) Integumentary: normal Extremities: no cyanosis, no edema, pink and warm Neurologic: non-focal exam, pupils equal and round, other (opens eyes) Psychiatric: mood appropriate, affect normal CBC and BMP: 03/24/17 03:15 03/24/17 03:15 ABG, PT/INR, D-dimer: ABG POC ABG pH 7.409 (7.35-7.45) 03/24/17 04:53 POC ABG pCO2 37.1 (35-45) 03/24/17 04:53 POC ABG pO2 72 (80-105) L 03/24/17 04:53 POC ABG HCO3 23.5 03/24/17 04:53 POC ABG Total CO2 25 03/24/17 04:53 POC ABG O2 Sat 95 03/24/17 04:53 PT/INR, D-dimer PT 16.2 Sec. (12.2-14.9) H 03/22/17 08:40 INR 1.31 (0.87-1.13) H 03/22/17 08:40 Abnormal lab findings: Abnormal Labs 02/27/17 02/27/17 02/27/17 03:51 05:41 08:49 WBC RBC Hgb Hct MCV MCH MCHC RDW Plt Count Lymph % (Auto) [place] % (Auto) [place] # Seg Neutrophils % Seg Neuts % (Manual) Lymphocytes % (Manual) Monocytes % (Manual) Seg Neutrophils # Seg Neutrophils # Man Lymphocytes # (Manual) Monocytes # (Manual) Eosinophils # (Manual) PT INR APTT Heparin Anti-Xa Level POC ABG pH POC ABG pCO2 POC ABG pO2 Sodium Potassium Chloride Carbon Dioxide BUN Creatinine Glucose POC Glucose 131 H 139 H Calcium Phosphorus Magnesium Total Bilirubin AST Total Creatine Kinase 171 H CK-MB (CK-2) 5.8 H Total Protein Albumin 02/27/17 02/27/17 02/27/17 13:05 13:08 16:07 WBC RBC Hgb Hct MCV MCH MCHC RDW Plt Count Lymph % (Auto) [place] % (Auto) [place] # Seg Neutrophils % Seg Neuts % (Manual) Lymphocytes % (Manual) Monocytes % (Manual) Seg Neutrophils # Seg Neutrophils # Man Lymphocytes # (Manual) Monocytes # (Manual) Eosinophils # (Manual) PT INR APTT Heparin Anti-Xa Level POC ABG pH POC ABG pCO2 POC ABG pO2 Sodium Potassium Chloride Carbon Dioxide BUN Creatinine Glucose POC Glucose 146 H 138 H Calcium Phosphorus Magnesium Total Bilirubin AST Total Creatine Kinase CK-MB (CK-2) 4.7 H Total Protein Albumin 02/27/17 02/28/17 02/28/17 21:40 03:32 03:32 WBC RBC Hgb 15.9 H Hct 47.6 H MCV 100 H MCH 34 H MCHC RDW 15.4 H Plt Count Lymph % (Auto) [place] % (Auto) [place] # Seg Neutrophils % Seg Neuts % (Manual) Lymphocytes % (Manual) Monocytes % (Manual) Seg Neutrophils # Seg Neutrophils # Man Lymphocytes # (Manual) Monocytes # (Manual) Eosinophils # (Manual) PT INR APTT Heparin Anti-Xa Level POC ABG pH POC ABG pCO2 POC ABG pO2 Sodium Potassium Chloride 95.0 L Carbon Dioxide BUN 8 L Creatinine 0.6 L Glucose 126 H POC Glucose 140 H Calcium Phosphorus Magnesium 1.60 L Total Bilirubin AST Total Creatine Kinase CK-MB (CK-2) Total Protein Albumin 02/28/17 02/28/17 02/28/17 07:55 11:57 15:40 WBC RBC Hgb Hct MCV MCH MCHC RDW Plt Count Lymph % (Auto) [place] % (Auto) [place] # Seg Neutrophils % Seg Neuts % (Manual) Lymphocytes % (Manual) Monocytes % (Manual) Seg Neutrophils # Seg Neutrophils # Man Lymphocytes # (Manual) Monocytes # (Manual) Eosinophils # (Manual) PT INR APTT Heparin Anti-Xa Level POC ABG pH POC ABG pCO2 POC ABG pO2 Sodium Potassium Chloride Carbon Dioxide BUN Creatinine Glucose POC Glucose 134 H 174 H 158 H Calcium Phosphorus Magnesium Total Bilirubin AST Total Creatine Kinase CK-MB (CK-2) Total Protein Albumin 02/28/17 03/01/17 03/01/17 21:51 07:42 10:41 WBC RBC Hgb Hct MCV MCH MCHC RDW Plt Count Lymph % (Auto) [place] % (Auto) [place] # Seg Neutrophils % Seg Neuts % (Manual) Lymphocytes % (Manual) Monocytes % (Manual) Seg Neutrophils # Seg Neutrophils # Man Lymphocytes # (Manual) Monocytes # (Manual) Eosinophils # (Manual) PT INR APTT Heparin Anti-Xa Level POC ABG pH POC ABG pCO2 POC ABG pO2 Sodium Potassium Chloride Carbon Dioxide BUN Creatinine Glucose POC Glucose 127 H 146 H 176 H Calcium Phosphorus Magnesium Total Bilirubin AST Total Creatine Kinase CK-MB (CK-2) Total Protein Albumin 03/01/17 03/01/17 03/02/17 15:37 23:35 08:11 WBC RBC Hgb Hct MCV MCH MCHC RDW Plt Count Lymph % (Auto) [place] % (Auto) [place] # Seg Neutrophils % Seg Neuts % (Manual) Lymphocytes % (Manual) Monocytes % (Manual) Seg Neutrophils # Seg Neutrophils # Man Lymphocytes # (Manual) Monocytes # (Manual) Eosinophils # (Manual) PT INR APTT Heparin Anti-Xa Level POC ABG pH POC ABG pCO2 POC ABG pO2 Sodium Potassium Chloride Carbon Dioxide BUN Creatinine Glucose POC Glucose 158 H 139 H 127 H Calcium Phosphorus Magnesium Total Bilirubin AST Total Creatine Kinase CK-MB (CK-2) Total Protein Albumin 03/02/17 03/02/17 03/02/17 09:12 12:03 12:37 WBC 17.9 H RBC Hgb 16.3 H Hct 49.3 H MCV 101 H MCH 33 H MCHC RDW Plt Count Lymph % (Auto) 10.6 L [place] % (Auto) 13.4 H [place] # 2.4 H Seg Neutrophils % 75.2 H Seg Neuts % (Manual) Lymphocytes % (Manual) Monocytes % (Manual) Seg Neutrophils # 13.5 H Seg Neutrophils # Man Lymphocytes # (Manual) Monocytes # (Manual) Eosinophils # (Manual) PT INR APTT Heparin Anti-Xa Level POC ABG pH POC ABG pCO2 POC ABG pO2 Sodium 135 L Potassium Chloride 90.3 L Carbon Dioxide 32 H BUN Creatinine 0.6 L Glucose 124 H POC Glucose 145 H Calcium Phosphorus Magnesium Total Bilirubin AST Total Creatine Kinase CK-MB (CK-2) Total Protein Albumin 03/02/17 03/02/17 03/03/17 16:09 22:41 03:59 WBC 14.7 H RBC Hgb Hct MCV 100 H MCH 33 H MCHC RDW Plt Count Lymph % (Auto) 10.9 L [place] % (Auto) 14.8 H [place] # 2.2 H Seg Neutrophils % 73.6 H Seg Neuts % (Manual) Lymphocytes % (Manual) Monocytes % (Manual) Seg Neutrophils # 10.8 H Seg Neutrophils # Man Lymphocytes # (Manual) Monocytes # (Manual) Eosinophils # (Manual) PT INR APTT Heparin Anti-Xa Level POC ABG pH POC ABG pCO2 POC ABG pO2 Sodium Potassium Chloride Carbon Dioxide BUN Creatinine Glucose POC Glucose 141 H 127 H Calcium Phosphorus Magnesium Total Bilirubin AST Total Creatine Kinase CK-MB (CK-2) Total Protein Albumin 03/03/17 03/03/17 03/03/17 04:07 09:19 11:33 WBC RBC Hgb Hct MCV MCH MCHC RDW Plt Count Lymph % (Auto) [place] % (Auto) [place] # Seg Neutrophils % Seg Neuts % (Manual) Lymphocytes % (Manual) Monocytes % (Manual) Seg Neutrophils # Seg Neutrophils # Man Lymphocytes # (Manual) Monocytes # (Manual) Eosinophils # (Manual) PT INR APTT Heparin Anti-Xa Level POC ABG pH POC ABG pCO2 POC ABG pO2 Sodium Potassium 3.1 L D Chloride 91.1 L Carbon Dioxide BUN Creatinine 0.7 L Glucose 136 H POC Glucose 123 H 153 H Calcium Phosphorus Magnesium Total Bilirubin AST Total Creatine Kinase CK-MB (CK-2) Total Protein Albumin 03/03/17 03/04/17 03/04/17 15:46 05:58 06:04 WBC 11.4 H RBC Hgb Hct 46.0 H MCV 101 H MCH 33 H MCHC RDW Plt Count Lymph % (Auto) [place] % (Auto) [place] # Seg Neutrophils % Seg Neuts % (Manual) 71.0 H Lymphocytes % (Manual) 13.0 L Monocytes % (Manual) 13.0 H Seg Neutrophils # Seg Neutrophils # Man 8.1 H Lymphocytes # (Manual) Monocytes # (Manual) 1.5 H Eosinophils # (Manual) PT INR APTT Heparin Anti-Xa Level POC ABG pH POC ABG pCO2 POC ABG pO2 Sodium Potassium 3.3 L Chloride 92.2 L Carbon Dioxide 33 H BUN Creatinine 0.6 L Glucose 133 H POC Glucose 131 H Calcium Phosphorus Magnesium Total Bilirubin AST Total Creatine Kinase CK-MB (CK-2) Total Protein Albumin 03/04/17 03/04/17 03/04/17 07:54 11:24 16:00 WBC RBC Hgb Hct MCV MCH MCHC RDW Plt Count Lymph % (Auto) [place] % (Auto) [place] # Seg Neutrophils % Seg Neuts % (Manual) Lymphocytes % (Manual) Monocytes % (Manual) Seg Neutrophils # Seg Neutrophils # Man Lymphocytes # (Manual) Monocytes # (Manual) Eosinophils # (Manual) PT INR APTT Heparin Anti-Xa Level POC ABG pH POC ABG pCO2 POC ABG pO2 Sodium Potassium Chloride Carbon Dioxide BUN Creatinine Glucose POC Glucose 131 H 134 H 116 H Calcium Phosphorus Magnesium Total Bilirubin AST Total Creatine Kinase CK-MB (CK-2) Total Protein Albumin 03/05/17 03/05/17 03/05/17 00:39 07:03 07:03 WBC 11.4 H RBC Hgb 15.4 H Hct 46.3 H MCV 100 H MCH 33 H MCHC RDW Plt Count Lymph % (Auto) [place] % (Auto) [place] # Seg Neutrophils % Seg Neuts % (Manual) Lymphocytes % (Manual) Monocytes % (Manual) 20.0 H Seg Neutrophils # Seg Neutrophils # Man Lymphocytes # (Manual) Monocytes # (Manual) 2.3 H Eosinophils # (Manual) PT INR APTT Heparin Anti-Xa Level POC ABG pH POC ABG pCO2 POC ABG pO2 Sodium Potassium 3.3 L Chloride 95.2 L Carbon Dioxide 31 H BUN Creatinine 0.6 L Glucose 137 H POC Glucose 116 H Calcium Phosphorus Magnesium Total Bilirubin AST Total Creatine Kinase CK-MB (CK-2) Total Protein Albumin 05/20/17 05/20/17 05/20/17 08:05 12:15 16:07 WBC RBC Hgb Hct MCV MCH MCHC RDW Plt Count Lymph % (Auto) [place] % (Auto) [place] # Seg Neutrophils % Seg Neuts % (Manual) Lymphocytes % (Manual) Monocytes % (Manual) Seg Neutrophils # Seg Neutrophils # Man Lymphocytes # (Manual) Monocytes # (Manual) Eosinophils # (Manual) PT INR APTT Heparin Anti-Xa Level POC ABG pH POC ABG pCO2 POC ABG pO2 Sodium Potassium Chloride Carbon Dioxide BUN Creatinine Glucose POC Glucose 134 H 150 H 113 H Calcium Phosphorus Magnesium Total Bilirubin AST Total Creatine Kinase CK-MB (CK-2) Total Protein Albumin 03/06/17 03/06/17 03/06/17 04:45 04:50 11:50 WBC 11.8 H RBC Hgb 15.7 H Hct 47.1 H MCV 98 H MCH 33 H MCHC RDW Plt Count Lymph % (Auto) [place] % (Auto) [place] # Seg Neutrophils % Seg Neuts % (Manual) Lymphocytes % (Manual) 13.0 L Monocytes % (Manual) 17.0 H Seg Neutrophils # Seg Neutrophils # Man Lymphocytes # (Manual) Monocytes # (Manual) 2.0 H Eosinophils # (Manual) PT INR APTT Heparin Anti-Xa Level POC ABG pH POC ABG pCO2 POC ABG pO2 Sodium Potassium 3.2 L Chloride 94.9 L Carbon Dioxide 31 H BUN Creatinine 0.6 L Glucose 125 H POC Glucose 124 H Calcium Phosphorus 4.60 H Magnesium Total Bilirubin AST Total Creatine Kinase CK-MB (CK-2) Total Protein Albumin 03/06/17 03/06/17 03/07/17 15:43 22:07 04:30 WBC RBC Hgb Hct MCV MCH MCHC RDW Plt Count Lymph % (Auto) [place] % (Auto) [place] # Seg Neutrophils % Seg Neuts % (Manual) Lymphocytes % (Manual) Monocytes % (Manual) Seg Neutrophils # Seg Neutrophils # Man Lymphocytes # (Manual) Monocytes # (Manual) Eosinophils # (Manual) PT INR APTT Heparin Anti-Xa Level POC ABG pH POC ABG pCO2 POC ABG pO2 Sodium Potassium 3.4 L Chloride 95.1 L Carbon Dioxide BUN Creatinine 0.6 L Glucose 129 H POC Glucose 121 H 109 H Calcium Phosphorus Magnesium Total Bilirubin AST Total Creatine Kinase CK-MB (CK-2) Total Protein Albumin 05/22/17 05/22/17 05/22/17 04:37 12:02 15:03 WBC 11.3 H RBC Hgb Hct MCV 99 H MCH 34 H MCHC RDW Plt Count Lymph % (Auto) [place] % (Auto) 14.6 H [place] # 1.6 H Seg Neutrophils % Seg Neuts % (Manual) Lymphocytes % (Manual) Monocytes % (Manual) Seg Neutrophils # Seg Neutrophils # Man Lymphocytes # (Manual) Monocytes # (Manual) Eosinophils # (Manual) PT INR APTT Heparin Anti-Xa Level POC ABG pH POC ABG pCO2 POC ABG pO2 Sodium Potassium Chloride Carbon Dioxide BUN Creatinine Glucose POC Glucose 126 H 108 H Calcium Phosphorus Magnesium Total Bilirubin AST Total Creatine Kinase CK-MB (CK-2) Total Protein Albumin 03/08/17 03/08/17 03/08/17 04:58 04:58 08:22 WBC RBC Hgb 16.4 H Hct 49.3 H MCV 99 H MCH 33 H MCHC RDW Plt Count Lymph % (Auto) [place] % (Auto) 12.1 H [place] # 1.2 H Seg Neutrophils % 71.4 H Seg Neuts % (Manual) Lymphocytes % (Manual) Monocytes % (Manual) Seg Neutrophils # Seg Neutrophils # Man Lymphocytes # (Manual) Monocytes # (Manual) Eosinophils # (Manual) PT INR APTT Heparin Anti-Xa Level POC ABG pH POC ABG pCO2 POC ABG pO2 Sodium 136 L Potassium Chloride 93.7 L Carbon Dioxide BUN Creatinine 0.5 L Glucose 127 H POC Glucose 106 H Calcium Phosphorus Magnesium Total Bilirubin AST 50 H Total Creatine Kinase CK-MB (CK-2) Total Protein Albumin 2.7 L 03/08/17 03/08/17 03/09/17 12:14 17:50 05:26 WBC 11.8 H RBC Hgb 16.3 H Hct 49.1 H MCV 98 H MCH 33 H MCHC RDW Plt Count Lymph % (Auto) [place] % (Auto) 10.8 H [place] # 1.3 H Seg Neutrophils % 71.8 H Seg Neuts % (Manual) Lymphocytes % (Manual) Monocytes % (Manual) Seg Neutrophils # 8.4 H Seg Neutrophils # Man Lymphocytes # (Manual) Monocytes # (Manual) Eosinophils # (Manual) PT INR APTT Heparin Anti-Xa Level POC ABG pH POC ABG pCO2 POC ABG pO2 Sodium Potassium Chloride Carbon Dioxide BUN Creatinine Glucose POC Glucose 115 H 117 H Calcium Phosphorus Magnesium Total Bilirubin AST Total Creatine Kinase CK-MB (CK-2) Total Protein Albumin 03/09/17 03/09/17 03/09/17 05:26 12:39 16:19 WBC RBC Hgb Hct MCV MCH MCHC RDW Plt Count Lymph % (Auto) [place] % (Auto) [place] # Seg Neutrophils % Seg Neuts % (Manual) Lymphocytes % (Manual) Monocytes % (Manual) Seg Neutrophils # Seg Neutrophils # Man Lymphocytes # (Manual) Monocytes # (Manual) Eosinophils # (Manual) PT INR APTT Heparin Anti-Xa Level POC ABG pH POC ABG pCO2 POC ABG pO2 Sodium Potassium Chloride 94.7 L Carbon Dioxide BUN Creatinine 0.7 L Glucose 115 H POC Glucose 111 H 116 H Calcium Phosphorus Magnesium Total Bilirubin AST Total Creatine Kinase CK-MB (CK-2) Total Protein Albumin 03/09/17 03/10/17 03/10/17 22:48 08:27 11:46 WBC RBC Hgb Hct MCV MCH MCHC RDW Plt Count Lymph % (Auto) [place] % (Auto) [place] # Seg Neutrophils % Seg Neuts % (Manual) Lymphocytes % (Manual) Monocytes % (Manual) Seg Neutrophils # Seg Neutrophils # Man Lymphocytes # (Manual) Monocytes # (Manual) Eosinophils # (Manual) PT INR APTT Heparin Anti-Xa Level POC ABG pH POC ABG pCO2 POC ABG pO2 Sodium Potassium Chloride Carbon Dioxide BUN Creatinine Glucose POC Glucose 106 H 107 H 116 H Calcium Phosphorus Magnesium Total Bilirubin AST Total Creatine Kinase CK-MB (CK-2) Total Protein Albumin 03/10/17 03/10/17 03/11/17 17:01 21:46 08:10 WBC RBC Hgb Hct MCV MCH MCHC RDW Plt Count Lymph % (Auto) [place] % (Auto) [place] # Seg Neutrophils % Seg Neuts % (Manual) Lymphocytes % (Manual) Monocytes % (Manual) Seg Neutrophils # Seg Neutrophils # Man Lymphocytes # (Manual) Monocytes # (Manual) Eosinophils # (Manual) PT INR APTT Heparin Anti-Xa Level POC ABG pH POC ABG pCO2 POC ABG pO2 Sodium Potassium Chloride Carbon Dioxide BUN Creatinine Glucose POC Glucose 115 H 135 H 109 H Calcium Phosphorus Magnesium Total Bilirubin AST Total Creatine Kinase CK-MB (CK-2) Total Protein Albumin 03/11/17 03/11/17 03/11/17 12:12 17:45 22:14 WBC RBC Hgb Hct MCV MCH MCHC RDW Plt Count Lymph % (Auto) [place] % (Auto) [place] # Seg Neutrophils % Seg Neuts % (Manual) Lymphocytes % (Manual) Monocytes % (Manual) Seg Neutrophils # Seg Neutrophils # Man Lymphocytes # (Manual) Monocytes # (Manual) Eosinophils # (Manual) PT INR APTT Heparin Anti-Xa Level POC ABG pH POC ABG pCO2 POC ABG pO2 Sodium Potassium Chloride Carbon Dioxide BUN Creatinine Glucose POC Glucose 136 H 126 H 132 H Calcium Phosphorus Magnesium Total Bilirubin AST Total Creatine Kinase CK-MB (CK-2) Total Protein Albumin 03/12/17 03/12/17 03/12/17 08:44 08:44 12:56 WBC 14.9 H RBC 5.04 H Hgb 16.1 H Hct 48.8 H MCV 97 H MCH MCHC RDW Plt Count Lymph % (Auto) 11.7 L [place] % (Auto) 11.6 H [place] # 1.7 H Seg Neutrophils % 75.5 H Seg Neuts % (Manual) Lymphocytes % (Manual) Monocytes % (Manual) Seg Neutrophils # 11.2 H Seg Neutrophils # Man Lymphocytes # (Manual) Monocytes # (Manual) Eosinophils # (Manual) PT INR APTT Heparin Anti-Xa Level POC ABG pH POC ABG pCO2 POC ABG pO2 Sodium Potassium 3.2 L Chloride 93.4 L Carbon Dioxide BUN Creatinine 0.6 L Glucose 121 H POC Glucose 129 H Calcium Phosphorus Magnesium Total Bilirubin 1.30 H AST Total Creatine Kinase CK-MB (CK-2) Total Protein Albumin 3.2 L 03/12/17 03/13/17 03/13/17 17:13 09:05 11:36 WBC RBC Hgb Hct MCV MCH MCHC RDW Plt Count Lymph % (Auto) [place] % (Auto) [place] # Seg Neutrophils % Seg Neuts % (Manual) Lymphocytes % (Manual) Monocytes % (Manual) Seg Neutrophils # Seg Neutrophils # Man Lymphocytes # (Manual) Monocytes # (Manual) Eosinophils # (Manual) PT INR APTT Heparin Anti-Xa Level POC ABG pH POC ABG pCO2 POC ABG pO2 Sodium Potassium Chloride Carbon Dioxide BUN Creatinine Glucose POC Glucose 161 H 110 H 126 H Calcium Phosphorus Magnesium Total Bilirubin AST Total Creatine Kinase CK-MB (CK-2) Total Protein Albumin 03/13/17 03/13/17 03/14/17 16:17 21:43 08:40 WBC RBC Hgb Hct MCV MCH MCHC RDW Plt Count Lymph % (Auto) [place] % (Auto) [place] # Seg Neutrophils % Seg Neuts % (Manual) Lymphocytes % (Manual) Monocytes % (Manual) Seg Neutrophils # Seg Neutrophils # Man Lymphocytes # (Manual) Monocytes # (Manual) Eosinophils # (Manual) PT INR APTT Heparin Anti-Xa Level POC ABG pH POC ABG pCO2 POC ABG pO2 Sodium Potassium Chloride Carbon Dioxide BUN Creatinine Glucose POC Glucose 126 H 115 H 106 H Calcium Phosphorus Magnesium Total Bilirubin AST Total Creatine Kinase CK-MB (CK-2) Total Protein Albumin 03/14/17 03/14/17 03/14/17 12:01 17:39 20:30 WBC RBC Hgb Hct MCV MCH MCHC RDW Plt Count Lymph % (Auto) [place] % (Auto) [place] # Seg Neutrophils % Seg Neuts % (Manual) Lymphocytes % (Manual) Monocytes % (Manual) Seg Neutrophils # Seg Neutrophils # Man Lymphocytes # (Manual) Monocytes # (Manual) Eosinophils # (Manual) PT INR APTT Heparin Anti-Xa Level POC ABG pH POC ABG pCO2 POC ABG pO2 Sodium Potassium Chloride Carbon Dioxide BUN Creatinine Glucose POC Glucose 116 H 192 H 122 H Calcium Phosphorus Magnesium Total Bilirubin AST Total Creatine Kinase CK-MB (CK-2) Total Protein Albumin 03/15/17 03/15/17 03/15/17 01:12 06:49 08:46 WBC 23.9 H RBC Hgb 16.1 H Hct 49.4 H MCV 100 H D MCH 33 H MCHC RDW Plt Count Lymph % (Auto) [place] % (Auto) [place] # Seg Neutrophils % Seg Neuts % (Manual) 92.0 H Lymphocytes % (Manual) 4.0 L Monocytes % (Manual) Seg Neutrophils # Seg Neutrophils # Man 22.0 H Lymphocytes # (Manual) 1.0 L Monocytes # (Manual) 1.0 H Eosinophils # (Manual) PT INR APTT Heparin Anti-Xa Level POC ABG pH POC ABG pCO2 POC ABG pO2 Sodium Potassium Chloride 91.0 L Carbon Dioxide 33 H BUN 45 H Creatinine Glucose 160 H POC Glucose 147 H Calcium Phosphorus Magnesium Total Bilirubin AST 41 H Total Creatine Kinase CK-MB (CK-2) Total Protein Albumin 3.0 L 03/15/17 03/15/17 03/15/17 12:11 16:00 20:51 WBC RBC Hgb Hct MCV MCH MCHC RDW Plt Count Lymph % (Auto) [place] % (Auto) [place] # Seg Neutrophils % Seg Neuts % (Manual) Lymphocytes % (Manual) Monocytes % (Manual) Seg Neutrophils # Seg Neutrophils # Man Lymphocytes # (Manual) Monocytes # (Manual) Eosinophils # (Manual) PT INR APTT Heparin Anti-Xa Level POC ABG pH POC ABG pCO2 POC ABG pO2 Sodium Potassium Chloride Carbon Dioxide BUN Creatinine Glucose POC Glucose 144 H 134 H 148 H Calcium Phosphorus Magnesium Total Bilirubin AST Total Creatine Kinase CK-MB (CK-2) Total Protein Albumin 03/16/17 03/16/17 03/16/17 05:59 06:02 09:15 WBC 20.9 H RBC Hgb Hct 45.8 H MCV 99 H MCH 33 H MCHC RDW Plt Count Lymph % (Auto) [place] % (Auto) [place] # Seg Neutrophils % Seg Neuts % (Manual) 92.0 H Lymphocytes % (Manual) 4.0 L Monocytes % (Manual) Seg Neutrophils # Seg Neutrophils # Man 19.2 H Lymphocytes # (Manual) 0.8 L Monocytes # (Manual) Eosinophils # (Manual) PT INR APTT Heparin Anti-Xa Level POC ABG pH POC ABG pCO2 POC ABG pO2 Sodium Potassium Chloride 92.3 L Carbon Dioxide 34 H BUN 44 H Creatinine Glucose 150 H POC Glucose 127 H Calcium Phosphorus Magnesium Total Bilirubin AST Total Creatine Kinase CK-MB (CK-2) Total Protein Albumin 03/16/17 03/16/17 03/17/17 11:59 18:08 07:06 WBC RBC Hgb Hct MCV MCH MCHC RDW Plt Count Lymph % (Auto) [place] % (Auto) [place] # Seg Neutrophils % Seg Neuts % (Manual) Lymphocytes % (Manual) Monocytes % (Manual) Seg Neutrophils # Seg Neutrophils # Man Lymphocytes # (Manual) Monocytes # (Manual) Eosinophils # (Manual) PT INR APTT Heparin Anti-Xa Level POC ABG pH POC ABG pCO2 POC ABG pO2 Sodium Potassium Chloride 93.3 L Carbon Dioxide 35 H BUN 31 H Creatinine Glucose 132 H POC Glucose 147 H 138 H Calcium Phosphorus Magnesium Total Bilirubin AST Total Creatine Kinase CK-MB (CK-2) Total Protein Albumin 03/17/17 03/17/17 03/17/17 07:06 07:14 12:35 WBC 16.6 H RBC Hgb 15.6 H Hct 47.5 H MCV 99 H MCH 33 H MCHC RDW Plt Count Lymph % (Auto) 8.4 L [place] % (Auto) 8.1 H [place] # 1.3 H Seg Neutrophils % 81.8 H Seg Neuts % (Manual) Lymphocytes % (Manual) Monocytes % (Manual) Seg Neutrophils # 13.6 H Seg Neutrophils # Man Lymphocytes # (Manual) Monocytes # (Manual) Eosinophils # (Manual) PT INR APTT Heparin Anti-Xa Level POC ABG pH POC ABG pCO2 POC ABG pO2 Sodium Potassium Chloride Carbon Dioxide BUN Creatinine Glucose POC Glucose 119 H 132 H Calcium Phosphorus Magnesium Total Bilirubin AST Total Creatine Kinase CK-MB (CK-2) Total Protein Albumin 03/18/17 03/18/17 03/18/17 05:05 06:15 06:15 WBC 15.8 H RBC Hgb 16.5 H Hct 49.3 H MCV 99 H MCH 33 H MCHC RDW Plt Count Lymph % (Auto) [place] % (Auto) [place] # Seg Neutrophils % Seg Neuts % (Manual) 88.0 H Lymphocytes % (Manual) 2.0 L Monocytes % (Manual) 8.0 H Seg Neutrophils # Seg Neutrophils # Man 13.9 H Lymphocytes # (Manual) 0.3 L Monocytes # (Manual) 1.3 H Eosinophils # (Manual) PT INR APTT Heparin Anti-Xa Level POC ABG pH POC ABG pCO2 72.9 H POC ABG pO2 168 H Sodium 147 H Potassium 3.5 L Chloride 95.3 L Carbon Dioxide 37 H BUN 29 H Creatinine Glucose 155 H POC Glucose Calcium Phosphorus Magnesium Total Bilirubin AST Total Creatine Kinase CK-MB (CK-2) Total Protein Albumin 03/18/17 03/18/17 03/18/17 08:27 11:24 11:31 WBC RBC Hgb Hct MCV MCH MCHC RDW Plt Count Lymph % (Auto) [place] % (Auto) [place] # Seg Neutrophils % Seg Neuts % (Manual) Lymphocytes % (Manual) Monocytes % (Manual) Seg Neutrophils # Seg Neutrophils # Man Lymphocytes # (Manual) Monocytes # (Manual) Eosinophils # (Manual) PT INR APTT Heparin Anti-Xa Level POC ABG pH 7.530 H POC ABG pCO2 POC ABG pO2 60 L Sodium Potassium Chloride Carbon Dioxide BUN Creatinine Glucose POC Glucose 123 H 176 H Calcium Phosphorus Magnesium Total Bilirubin AST Total Creatine Kinase CK-MB (CK-2) Total Protein Albumin 03/18/17 03/18/17 03/18/17 14:10 15:24 17:23 WBC RBC Hgb 15.4 H Hct 46.4 H MCV MCH MCHC RDW Plt Count Lymph % (Auto) [place] % (Auto) [place] # Seg Neutrophils % Seg Neuts % (Manual) Lymphocytes % (Manual) Monocytes % (Manual) Seg Neutrophils # Seg Neutrophils # Man Lymphocytes # (Manual) Monocytes # (Manual) Eosinophils # (Manual) PT INR APTT Heparin Anti-Xa Level POC ABG pH POC ABG pCO2 POC ABG pO2 Sodium Potassium Chloride 94.5 L Carbon Dioxide 33 H BUN 33 H Creatinine 1.6 H Glucose 241 H POC Glucose 244 H Calcium Phosphorus Magnesium Total Bilirubin AST Total Creatine Kinase CK-MB (CK-2) Total Protein Albumin 3.0 L 03/18/17 03/18/17 03/19/17 17:23 21:33 03:54 WBC 25.4 H RBC Hgb Hct MCV 98 H MCH MCHC RDW Plt Count Lymph % (Auto) [place] % (Auto) [place] # Seg Neutrophils % Seg Neuts % (Manual) 83.0 H Lymphocytes % (Manual) 4.5 L Monocytes % (Manual) 8.0 H Seg Neutrophils # Seg Neutrophils # Man 21.1 H Lymphocytes # (Manual) 1.1 L Monocytes # (Manual) 2.0 H Eosinophils # (Manual) PT 17.1 H INR 1.40 H APTT Heparin Anti-Xa Level POC ABG pH POC ABG pCO2 POC ABG pO2 Sodium Potassium Chloride Carbon Dioxide BUN Creatinine Glucose POC Glucose 164 H Calcium Phosphorus Magnesium Total Bilirubin AST Total Creatine Kinase CK-MB (CK-2) Total Protein Albumin 03/19/17 03/19/17 03/19/17 03:54 06:55 06:55 WBC RBC Hgb Hct MCV MCH MCHC RDW Plt Count Lymph % (Auto) [place] % (Auto) [place] # Seg Neutrophils % Seg Neuts % (Manual) Lymphocytes % (Manual) Monocytes % (Manual) Seg Neutrophils # Seg Neutrophils # Man Lymphocytes # (Manual) Monocytes # (Manual) Eosinophils # (Manual) PT INR APTT Heparin Anti-Xa Level 0.29 L POC ABG pH POC ABG pCO2 POC ABG pO2 Sodium 146 H Potassium 3.4 L Chloride 97.8 L Carbon Dioxide 33 H BUN 30 H Creatinine Glucose 134 H POC Glucose Calcium Phosphorus Magnesium 1.60 L Total Bilirubin AST Total Creatine Kinase CK-MB (CK-2) Total Protein Albumin 0603/19/17 03/19/17 08:01 12:56 14:54 WBC RBC Hgb Hct MCV MCH MCHC RDW Plt Count Lymph % (Auto) [place] % (Auto) [place] # Seg Neutrophils % Seg Neuts % (Manual) Lymphocytes % (Manual) Monocytes % (Manual) Seg Neutrophils # Seg Neutrophils # Man Lymphocytes # (Manual) Monocytes # (Manual) Eosinophils # (Manual) PT INR APTT Heparin Anti-Xa Level POC ABG pH POC ABG pCO2 57.8 H POC ABG pO2 71 L Sodium Potassium Chloride Carbon Dioxide BUN Creatinine Glucose POC Glucose 139 H 167 H Calcium Phosphorus Magnesium Total Bilirubin AST Total Creatine Kinase CK-MB (CK-2) Total Protein Albumin 03/19/17 03/19/17 03/20/17 15:53 21:04 03:36 WBC RBC Hgb 15.3 H Hct 48.1 H MCV MCH MCHC RDW Plt Count Lymph % (Auto) [place] % (Auto) [place] # Seg Neutrophils % Seg Neuts % (Manual) Lymphocytes % (Manual) Monocytes % (Manual) Seg Neutrophils # Seg Neutrophils # Man Lymphocytes # (Manual) Monocytes # (Manual) Eosinophils # (Manual) PT INR APTT Heparin Anti-Xa Level POC ABG pH POC ABG pCO2 POC ABG pO2 Sodium Potassium Chloride Carbon Dioxide BUN Creatinine Glucose POC Glucose 172 H 159 H Calcium Phosphorus Magnesium Total Bilirubin AST Total Creatine Kinase CK-MB (CK-2) Total Protein Albumin 03/20/17 03/20/17 03/20/17 07:45 12:02 14:07 WBC RBC Hgb Hct MCV MCH MCHC RDW Plt Count Lymph % (Auto) [place] % (Auto) [place] # Seg Neutrophils % Seg Neuts % (Manual) Lymphocytes % (Manual) Monocytes % (Manual) Seg Neutrophils # Seg Neutrophils # Man Lymphocytes # (Manual) Monocytes # (Manual) Eosinophils # (Manual) PT INR APTT Heparin Anti-Xa Level POC ABG pH 7.312 L POC ABG pCO2 68.3 H POC ABG pO2 47 L Sodium Potassium Chloride Carbon Dioxide BUN Creatinine Glucose POC Glucose 160 H 142 H Calcium Phosphorus Magnesium Total Bilirubin AST Total Creatine Kinase CK-MB (CK-2) Total Protein Albumin 03/20/17 03/20/17 03/20/17 15:57 15:59 19:50 WBC RBC Hgb Hct MCV MCH MCHC RDW Plt Count Lymph % (Auto) [place] % (Auto) [place] # Seg Neutrophils % Seg Neuts % (Manual) Lymphocytes % (Manual) Monocytes % (Manual) Seg Neutrophils # Seg Neutrophils # Man Lymphocytes # (Manual) Monocytes # (Manual) Eosinophils # (Manual) PT INR APTT Heparin Anti-Xa Level POC ABG pH 7.214 L POC ABG pCO2 82.8 H 58.7 H POC ABG pO2 69 L Sodium Potassium Chloride Carbon Dioxide BUN Creatinine Glucose POC Glucose 149 H Calcium Phosphorus Magnesium Total Bilirubin AST Total Creatine Kinase CK-MB (CK-2) Total Protein Albumin 03/20/17 03/20/17 03/21/17 21:19 23:34 04:18 WBC RBC Hgb Hct MCV MCH MCHC RDW Plt Count Lymph % (Auto) [place] % (Auto) [place] # Seg Neutrophils % Seg Neuts % (Manual) Lymphocytes % (Manual) Monocytes % (Manual) Seg Neutrophils # Seg Neutrophils # Man Lymphocytes # (Manual) Monocytes # (Manual) Eosinophils # (Manual) PT INR APTT Heparin Anti-Xa Level 0.20 L POC ABG pH POC ABG pCO2 48.6 H POC ABG pO2 79 L Sodium Potassium Chloride Carbon Dioxide BUN Creatinine Glucose POC Glucose 206 H Calcium Phosphorus Magnesium Total Bilirubin AST Total Creatine Kinase CK-MB (CK-2) Total Protein Albumin 03/21/17 03/21/17 03/21/17 04:21 04:21 05:23 WBC RBC Hgb Hct MCV MCH MCHC RDW Plt Count Lymph % (Auto) [place] % (Auto) [place] # Seg Neutrophils % Seg Neuts % (Manual) Lymphocytes % (Manual) Monocytes % (Manual) Seg Neutrophils # Seg Neutrophils # Man Lymphocytes # (Manual) Monocytes # (Manual) Eosinophils # (Manual) PT INR APTT Heparin Anti-Xa Level 0.24 L POC ABG pH POC ABG pCO2 POC ABG pO2 Sodium 147 H Potassium Chloride Carbon Dioxide BUN 42 H Creatinine 2.6 H D Glucose 209 H POC Glucose 181 H Calcium 7.9 L Phosphorus Magnesium Total Bilirubin AST Total Creatine Kinase CK-MB (CK-2) Total Protein Albumin 03/21/17 03/21/17 03/21/17 13:16 13:16 14:43 WBC 27.8 H RBC Hgb Hct MCV 101 H D MCH MCHC RDW Plt Count Lymph % (Auto) [place] % (Auto) [place] # Seg Neutrophils % Seg Neuts % (Manual) 76.0 H Lymphocytes % (Manual) 7.0 L Monocytes % (Manual) Seg Neutrophils # Seg Neutrophils # Man 21.1 H Lymphocytes # (Manual) Monocytes # (Manual) 1.1 H Eosinophils # (Manual) PT INR APTT Heparin Anti-Xa Level 0.25 L POC ABG pH 7.474 H POC ABG pCO2 POC ABG pO2 59 L Sodium Potassium Chloride Carbon Dioxide BUN Creatinine Glucose POC Glucose Calcium Phosphorus Magnesium Total Bilirubin AST Total Creatine Kinase CK-MB (CK-2) Total Protein Albumin 03/21/17 03/21/17 03/21/17 17:00 18:20 23:40 WBC RBC Hgb Hct MCV MCH MCHC RDW Plt Count Lymph % (Auto) [place] % (Auto) [place] # Seg Neutrophils % Seg Neuts % (Manual) Lymphocytes % (Manual) Monocytes % (Manual) Seg Neutrophils # Seg Neutrophils # Man Lymphocytes # (Manual) Monocytes # (Manual) Eosinophils # (Manual) PT INR APTT Heparin Anti-Xa Level POC ABG pH POC ABG pCO2 POC ABG pO2 Sodium Potassium Chloride Carbon Dioxide BUN 48 H Creatinine 3.2 H Glucose 135 H POC Glucose 152 H 136 H Calcium 6.8 L Phosphorus Magnesium Total Bilirubin AST Total Creatine Kinase CK-MB (CK-2) Total Protein 5.3 L D Albumin 1.7 L 03/22/17 03/22/17 03/22/17 04:30 04:30 04:30 WBC 29.3 H RBC Hgb Hct MCV 100 H MCH MCHC 31 L RDW 15.3 H Plt Count Lymph % (Auto) [place] % (Auto) [place] # Seg Neutrophils % Seg Neuts % (Manual) Lymphocytes % (Manual) Monocytes % (Manual) Seg Neutrophils # Seg Neutrophils # Man Lymphocytes # (Manual) Monocytes # (Manual) Eosinophils # (Manual) PT INR APTT Heparin Anti-Xa Level 0.29 L POC ABG pH POC ABG pCO2 POC ABG pO2 Sodium Potassium Chloride Carbon Dioxide BUN 60 H Creatinine 4.3 H Glucose 118 H POC Glucose Calcium 8.2 L D Phosphorus Magnesium Total Bilirubin AST Total Creatine Kinase CK-MB (CK-2) Total Protein Albumin 1.8 L 03/22/17 03/22/17 03/22/17 05:08 07:00 07:00 WBC 24.8 H RBC Hgb Hct MCV 100 H MCH MCHC RDW Plt Count Lymph % (Auto) [place] % (Auto) [place] # Seg Neutrophils % Seg Neuts % (Manual) 94.0 H Lymphocytes % (Manual) 0 L Monocytes % (Manual) Seg Neutrophils # Seg Neutrophils # Man 23.3 H Lymphocytes # (Manual) 0.0 L Monocytes # (Manual) Eosinophils # (Manual) 0.7 H PT INR APTT Heparin Anti-Xa Level POC ABG pH POC ABG pCO2 POC ABG pO2 Sodium 147 H Potassium Chloride 109.2 H Carbon Dioxide BUN 58 H Creatinine 4.1 H Glucose 117 H POC Glucose 124 H Calcium 7.4 L Phosphorus Magnesium Total Bilirubin AST Total Creatine Kinase CK-MB (CK-2) Total Protein Albumin 03/22/17 03/22/17 03/22/17 08:40 11:37 14:30 WBC RBC Hgb Hct MCV MCH MCHC RDW Plt Count Lymph % (Auto) [place] % (Auto) [place] # Seg Neutrophils % Seg Neuts % (Manual) Lymphocytes % (Manual) Monocytes % (Manual) Seg Neutrophils # Seg Neutrophils # Man Lymphocytes # (Manual) Monocytes # (Manual) Eosinophils # (Manual) PT 16.2 H INR 1.31 H APTT 68.9 H* Heparin Anti-Xa Level < 0.10 L POC ABG pH POC ABG pCO2 POC ABG pO2 Sodium Potassium Chloride Carbon Dioxide BUN Creatinine Glucose POC Glucose 159 H Calcium Phosphorus Magnesium Total Bilirubin AST Total Creatine Kinase CK-MB (CK-2) Total Protein Albumin 03/22/17 03/22/17 03/22/17 17:53 21:44 23:54 WBC RBC Hgb 11.6 L Hct 33.1 L MCV MCH MCHC RDW Plt Count Lymph % (Auto) [place] % (Auto) [place] # Seg Neutrophils % Seg Neuts % (Manual) Lymphocytes % (Manual) Monocytes % (Manual) Seg Neutrophils # Seg Neutrophils # Man Lymphocytes # (Manual) Monocytes # (Manual) Eosinophils # (Manual) PT INR APTT Heparin Anti-Xa Level POC ABG pH POC ABG pCO2 POC ABG pO2 Sodium Potassium Chloride Carbon Dioxide BUN Creatinine Glucose POC Glucose 142 H 131 H Calcium Phosphorus Magnesium Total Bilirubin AST Total Creatine Kinase CK-MB (CK-2) Total Protein Albumin 03/23/17 03/23/17 03/23/17 04:08 05:29 06:34 WBC RBC Hgb Hct MCV MCH MCHC RDW Plt Count Lymph % (Auto) [place] % (Auto) [place] # Seg Neutrophils % Seg Neuts % (Manual) Lymphocytes % (Manual) Monocytes % (Manual) Seg Neutrophils # Seg Neutrophils # Man Lymphocytes # (Manual) Monocytes # (Manual) Eosinophils # (Manual) PT INR APTT Heparin Anti-Xa Level POC ABG pH POC ABG pCO2 POC ABG pO2 75 L Sodium Potassium Chloride Carbon Dioxide 21 L BUN 85 H Creatinine 6.0 H Glucose 134 H POC Glucose 134 H Calcium 8.1 L Phosphorus Magnesium Total Bilirubin AST Total Creatine Kinase CK-MB (CK-2) Total Protein Albumin 03/23/17 03/23/17 03/23/17 12:09 17:20 17:52 WBC RBC Hgb Hct MCV MCH MCHC RDW Plt Count Lymph % (Auto) [place] % (Auto) [place] # Seg Neutrophils % Seg Neuts % (Manual) Lymphocytes % (Manual) Monocytes % (Manual) Seg Neutrophils # Seg Neutrophils # Man Lymphocytes # (Manual) Monocytes # (Manual) Eosinophils # (Manual) PT INR APTT Heparin Anti-Xa Level 1.39 H POC ABG pH POC ABG pCO2 POC ABG pO2 Sodium Potassium Chloride Carbon Dioxide BUN Creatinine Glucose POC Glucose 133 H 151 H Calcium Phosphorus Magnesium Total Bilirubin AST Total Creatine Kinase CK-MB (CK-2) Total Protein Albumin 03/23/17 03/24/17 03/24/17 23:59 03:15 03:15 WBC 23.9 H RBC 3.58 L Hgb 11.6 L Hct 34.6 L MCV 97 H D MCH MCHC RDW Plt Count 122 L Lymph % (Auto) [place] % (Auto) [place] # Seg Neutrophils % Seg Neuts % (Manual) Lymphocytes % (Manual) Monocytes % (Manual) Seg Neutrophils # Seg Neutrophils # Man Lymphocytes # (Manual) Monocytes # (Manual) Eosinophils # (Manual) PT INR APTT Heparin Anti-Xa Level POC ABG pH POC ABG pCO2 POC ABG pO2 Sodium 135 L Potassium Chloride 95.0 L Carbon Dioxide BUN 71 H Creatinine 5.2 H Glucose 123 H POC Glucose 124 H Calcium 8.0 L Phosphorus Magnesium Total Bilirubin AST Total Creatine Kinase CK-MB (CK-2) Total Protein Albumin 03/24/17 03/24/17 03:15 04:53 WBC RBC Hgb Hct MCV MCH MCHC RDW Plt Count Lymph % (Auto) [place] % (Auto) [place] # Seg Neutrophils % Seg Neuts % (Manual) Lymphocytes % (Manual) Monocytes % (Manual) Seg Neutrophils # Seg Neutrophils # Man Lymphocytes # (Manual) Monocytes # (Manual) Eosinophils # (Manual) PT INR APTT Heparin Anti-Xa Level 0.20 L POC ABG pH POC ABG pCO2 POC ABG pO2 72 L Sodium Potassium Chloride Carbon Dioxide BUN Creatinine Glucose POC Glucose Calcium Phosphorus Magnesium Total Bilirubin AST Total Creatine Kinase CK-MB (CK-2) Total Protein Albumin
--- NOTE | 2017-03-24 13:42 | Progress Note ---
Assessment and Plan Assessment and plan: Atrial fibrillation with rapid ventricular response. Ventricular rate is improving. He is on Cardizem drip and metoprolol. Heparin resumed since hematuria resolved. Acute respiratory failure. He is still intubated on ventilator. Pulmonology following Acute metabolic encephalopathy. Gross hematuria 2 days ago, now resolved. Dr. Samuel, Urologist following patient. He does have history of non-obstructing stones both kidneys. Acute kidney injury. His renal function has mild improvement. creatinine 5.2 today from 6.0 yesterday. Nephrology following. May need hemodialysis if continues to worsen Hypernatremia. now resolved. DVT left lower ext. Resumed Heparin drip. This was temporarily on hold because of gross hematuria Full CODE STATUS History Interval history: Gross hematuria 2 days ago, now resolved, still intubated Hospitalist Physical - Physical exam Narrative exam: Gen: appearance : Intubated, sedated, obese HEENT: normocephalic atraumatic Neck :no JVD Lungs: clear to auscultation bilaterally, no crackles ,or wheezes Heart:S1 and S2 regular, no murmurs no gallop Abdomen soft, non-tender, non-distended, normal bowel sounds Extremities: no edema, no clubbing, or cyanosis Neuro : Intubated, sedated Genitiurinary: On [place] drip, clear urine in [place] bag - Constitutional Vitals: Temp Pulse Resp BP Pulse Ox 100 F H 97 H 24 136/96 95 03/24/17 08:00 03/24/17 12:42 03/24/17 10:00 03/24/17 12:42 03/24/17 10:00 General appearance: Present: mild distress, well-nourished, other Results - Labs CBC & Chem 7: 03/24/17 03:15 03/24/17 03:15 Labs: Laboratory Last Values WBC 23.9 K/mm3 (4.5-11.0) H 03/24/17 03:15 RBC 3.58 M/mm3 (3.65-5.03) L 03/24/17 03:15 Hgb 11.6 gm/dl (11.8-15.2) L 03/24/17 03:15 Hct 34.6 % (35.5-45.6) L 03/24/17 03:15 MCV 97 fl (84-94) H D 03/24/17 03:15 MCH 32 pg (28-32) 03/24/17 03:15 MCHC 34 % (32-34) 03/24/17 03:15 RDW 14.9 % (13.2-15.2) 03/24/17 03:15 Plt Count 122 K/mm3 (140-440) L 03/24/17 03:15 Lymph % (Auto) 8.4 % (13.4-35.0) L 03/17/17 07:06 [place] % (Auto) 8.1 % (0.0-7.3) H 03/17/17 07:06 Eos % (Auto) 1.0 % (0.0-4.3) 03/17/17 07:06 Baso % (Auto) 0.7 % (0.0-1.8) 03/17/17 07:06 Lymph # 1.4 K/mm3 (1.2-5.4) 03/17/17 07:06 [place] # 1.3 K/mm3 (0.0-0.8) H 03/17/17 07:06 Eos # 0.2 K/mm3 (0.0-0.4) 03/17/17 07:06 Baso # 0.1 K/mm3 (0.0-0.1) 03/17/17 07:06 Add Manual Diff Complete 03/22/17 07:00 Total Counted 100 03/22/17 07:00 Seg Neutrophils % 81.8 % (40.0-70.0) H 03/17/17 07:06 Seg Neuts % (Manual) 94.0 % (40.0-70.0) H 03/22/17 07:00 Band Neutrophils % 1.0 % 03/22/17 07:00 Lymphocytes % (Manual) 0 % (13.4-35.0) L 03/22/17 07:00 Reactive Lymphs % (Man) 1.0 % 03/22/17 07:00 Monocytes % (Manual) 1.0 % (0.0-7.3) 03/22/17 07:00 Eosinophils % (Manual) 3.0 % (0.0-4.3) 03/22/17 07:00 Basophils % (Manual) 0 % (0.0-1.8) 03/22/17 07:00 Metamyelocytes % 0 % 03/22/17 07:00 Myelocytes % 0 % 03/22/17 07:00 Promyelocytes % 0 % 03/22/17 07:00 Blast Cells % 0 % 03/22/17 07:00 Nucleated RBC % Not Reportable 03/22/17 07:00 Seg Neutrophils # 13.6 K/mm3 (1.8-7.7) H 03/17/17 07:06 Seg Neutrophils # Man 23.3 K/mm3 (1.8-7.7) H 03/22/17 07:00 Band Neutrophils # 0.2 K/mm3 03/22/17 07:00 Lymphocytes # (Manual) 0.0 K/mm3 (1.2-5.4) L 03/22/17 07:00 Abs React Lymphs (Man) 0.2 K/mm3 03/22/17 07:00 Monocytes # (Manual) 0.2 K/mm3 (0.0-0.8) 03/22/17 07:00 Eosinophils # (Manual) 0.7 K/mm3 (0.0-0.4) H 03/22/17 07:00 Basophils # (Manual) 0.0 K/mm3 (0.0-0.1) 03/22/17 07:00 Metamyelocytes # 0.0 K/mm3 03/22/17 07:00 Myelocytes # 0.0 K/mm3 03/22/17 07:00 Promyelocytes # 0.0 K/mm3 03/22/17 07:00 Blast Cells # 0.0 K/mm3 03/22/17 07:00 WBC Morphology Not Reportable 03/22/17 07:00 Hypersegmented Neuts Not Reportable 03/22/17 07:00 Hyposegmented Neuts Not Reportable 03/22/17 07:00 Hypogranular Neuts Not Reportable 03/22/17 07:00 Smudge Cells Not Reportable 03/22/17 07:00 Toxic Granulation Not Reportable 03/22/17 07:00 Toxic Vacuolation Not Reportable 03/22/17 07:00 Dohle Bodies Not Reportable 03/22/17 07:00 Pelger-Huet Anomaly Not Reportable 03/22/17 07:00 Marco Rods Not Reportable 03/22/17 07:00 Platelet Estimate Cons 03/22/17 07:00 Clumped Platelets Not Reportable 03/22/17 07:00 Plt Clumps, EDTA Not Reportable 03/22/17 07:00 Large Platelets Not Reportable 03/22/17 07:00 Giant Platelets Not Reportable 03/22/17 07:00 Platelet Satelliting Not Reportable 03/22/17 07:00 Plt Morphology Comment Not Reportable 03/22/17 07:00 RBC Morphology Not Reportable 03/22/17 07:00 Dimorphic RBCs Not Reportable 03/22/17 07:00 Polychromasia Not Reportable 03/22/17 07:00 Hypochromasia Not Reportable 03/22/17 07:00 Poikilocytosis 2+ 03/22/17 07:00 Anisocytosis 1+ 03/22/17 07:00 Microcytosis Not Reportable 03/22/17 07:00 Macrocytosis Not Reportable 03/22/17 07:00 Spherocytes Not Reportable 03/22/17 07:00 Pappenheimer Bodies Not Reportable 03/22/17 07:00 Sickle Cells Not Reportable 03/22/17 07:00 Target Cells Not Reportable 03/22/17 07:00 Tear Drop Cells 2+ 03/22/17 07:00 Ovalocytes Not Reportable 03/22/17 07:00 Stomatocytes Few 03/05/17 07:03 Helmet Cells Not Reportable 03/22/17 07:00 [place] Bodies Not Reportable 03/22/17 07:00 [place] Rings Not Reportable 03/22/17 07:00 Dave Cells Not Reportable 03/22/17 07:00 Bite Cells Not Reportable 03/22/17 07:00 Crenated Cell Not Reportable 03/22/17 07:00 Elliptocytes Not Reportable 03/22/17 07:00 Acanthocytes (Spur) Not Reportable 03/22/17 07:00 Rouleaux Not Reportable 03/22/17 07:00 Hemoglobin C Crystals Not Reportable 03/22/17 07:00 Schistocytes Not Reportable 03/22/17 07:00 Malaria parasites Not Reportable 03/22/17 07:00 Nishant Bodies Not Reportable 03/22/17 07:00 Hem Pathologist Commnt No 03/22/17 07:00 PT 16.2 Sec. (12.2-14.9) H 03/22/17 08:40 INR 1.31 (0.87-1.13) H 03/22/17 08:40 APTT 68.9 Sec. (24.2-36.6) H* 03/22/17 08:40 Heparin Anti-Xa Level 0.31 U.I./ml (0.3-0.7) 03/24/17 11:00 POC ABG pH 7.409 (7.35-7.45) 03/24/17 04:53 POC ABG pCO2 37.1 (35-45) 03/24/17 04:53 POC ABG pO2 72 (80-105) L 03/24/17 04:53 POC ABG HCO3 23.5 03/24/17 04:53 POC ABG Total CO2 25 03/24/17 04:53 POC ABG O2 Sat 95 03/24/17 04:53 POC ABG Base Excess -1 03/24/17 04:53 FiO2 40 % 03/24/17 04:53 Sodium 135 mmol/L (137-145) L 03/24/17 03:15 Potassium 4.5 mmol/L (3.6-5.0) 03/24/17 03:15 Chloride 95.0 mmol/L (98-107) L 03/24/17 03:15 Carbon Dioxide 23 mmol/L (22-30) 03/24/17 03:15 Anion Gap 22 mmol/L 03/24/17 03:15 BUN 71 mg/dL (9-20) H 03/24/17 03:15 Creatinine 5.2 mg/dL (0.8-1.5) H 03/24/17 03:15 Estimated GFR 12 ml/min 03/24/17 03:15 BUN/Creatinine Ratio 13.65 % 03/24/17 03:15 Glucose 123 mg/dL (75-100) H 03/24/17 03:15 POC Glucose 124 (70-105) H 03/23/17 23:59 Osmolality 324 Mosm/kg 03/21/17 21:55 Lactic Acid 1.50 mmol/L (0.7-2.0) 03/16/17 13:37 Uric Acid 7.3 mg/dL (3.5-7.6) 03/21/17 22:03 Calcium 8.0 mg/dL (8.4-10.2) L 03/24/17 03:15 Phosphorus 4.60 mg/dL (2.5-4.5) H 03/06/17 04:50 Magnesium 1.60 mg/dL (1.7-2.3) L 03/19/17 06:55 Total Bilirubin 0.70 mg/dL (0.1-1.2) 03/22/17 04:30 AST 38 units/L (5-40) 03/22/17 04:30 ALT 21 units/L (7-56) 03/22/17 04:30 Alkaline Phosphatase 102 units/L (35-129) 03/22/17 04:30 Total Creatine Kinase 148 units/L (55-170) 02/27/17 13:08 CK-MB (CK-2) 4.7 ng/mL (0.0-4.0) H 02/27/17 13:08 CK-MB (CK-2) Rel Index 3.1 (0-4) 02/27/17 13:08 Troponin T < 0.010 ng/mL (0.00-0.029) 02/27/17 13:08 Total Protein 6.3 g/dL (6.3-8.2) 03/22/17 04:30 Albumin 1.8 g/dL (3.9-5) L 03/22/17 04:30 Albumin/Globulin Ratio 0.4 % 03/22/17 04:30 Triglycerides 111 mg/dL (2-149) 03/22/17 04:30 TSH 1.480 mlU/mL (0.270-4.200) 02/26/17 23:40 Free T4 1.16 ng/dL (0.76-1.46) 02/26/17 23:40 Urine Color Yellow (Yellow) 03/03/17 10:38 Urine Turbidity Clear (Clear) 03/03/17 10:38 Urine pH 5.0 (5.0-7.0) 03/03/17 10:38 Ur Specific Stringer 1.012 (1.003-1.030) 03/03/17 10:38 Urine Protein <15 mg/dl mg/dL (Negative) 03/03/17 10:38 Urine Glucose (UA) Neg mg/dL (Negative) 03/03/17 10:38 Urine Ketones Neg mg/dL (Negative) 03/03/17 10:38 Urine Blood Lg (Negative) 03/03/17 10:38 Urine Nitrite Neg (Negative) 03/03/17 10:38 Urine Bilirubin Neg (Negative) 03/03/17 10:38 Urine Urobilinogen < 2.0 mg/dL (<2.0) 03/03/17 10:38 Ur Leukocyte Esterase Tr (Negative) 03/03/17 10:38 Urine WBC (Auto) 5.0 /HPF (0.0-6.0) 03/03/17 10:38 Urine RBC (Auto) 51.0 /HPF (0.0-6.0) 03/03/17 10:38 Urine Mucus Few /HPF 03/03/17 10:38 Random Vancomycin 24.1 ug/mL (0-40.0) 03/23/17 09:34 Plasma/Serum Alcohol 0.24 gm% (0-0.07) H 02/26/17 23:40 Hepatitis A IgM Ab Non-reactive (NonReactive) 03/23/17 17:20 Hep Bs Antigen Non-reactive (Negative) 03/23/17 17:20 Hep B Core IgM Ab Non-reactive (NonReactive) 03/23/17 17:20 Hepatitis C Antibody Non-reactive (NonReactive) 03/23/17 17:20
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
[2017-03-24] MEDS: ATIVAN IV PRN (15:13)
[2017-03-24] MEDS ORDERED: NACL 0.9% 100 ML IV PRN (15:34)
--- NOTE | 2017-03-24 15:34 | Progress Note ---
Assessment and Plan Impression: * KATHRIN--oliguric * vanco toxicity vs ATN * HTN * CM ef 40% * Afib with RVR * etoh withdrawal * asp PNA * UTI * Nephrolithiasis Plan: * Status post Vas-Cath placement and initiation of dialysis . He had uneventful dialysis yesterday * Shall plan to dialyze him again tomorrow * Antibiotic therapy as per primary care team * no hydro seen on CT * strict i/os * avoid nephrotoxins * daily lytes and weight * renal us with pvr * dose meds crcl 15ml/min Subjective Date of service: 03/24/17 Principal diagnosis: afib Interval history: Patient remains in the ICU. Currently on the ventilator with 40% FiO2. He is on a Cardizem drip as well as a heparin drip. Objective - Vital Signs Vital signs: Vital Signs - 12hr 03/24/17 03/24/17 03/24/17 04:00 04:30 05:00 Temperature 100.0 F H Pulse Rate 99 H 101 H 98 H Pulse Rate [ Anterior Bilateral Throughout] Pulse Rate [ Bilateral Throughout] Pulse Rate [ From Monitor] Respiratory 24 24 24 Rate Respiratory Rate [Anterior Bilateral Throughout] Respiratory Rate [Bilateral Throughout] Blood Pressure 128/88 124/82 133/90 O2 Sat by Pulse 95 96 Oximetry 03/24/17 03/24/17 03/24/17 05:30 05:50 06:00 Temperature Pulse Rate 98 H 94 H 90 Pulse Rate [ Anterior Bilateral Throughout] Pulse Rate [ Bilateral Throughout] Pulse Rate [ From Monitor] Respiratory 24 25 H Rate Respiratory Rate [Anterior Bilateral Throughout] Respiratory Rate [Bilateral Throughout] Blood Pressure 124/85 124/85 129/95 O2 Sat by Pulse 95 97 Oximetry 03/24/17 03/24/17 03/24/17 06:30 07:00 07:30 Temperature Pulse Rate 104 H 105 H 99 H Pulse Rate [ Anterior Bilateral Throughout] Pulse Rate [ Bilateral Throughout] Pulse Rate [ From Monitor] Respiratory 25 H 25 H 27 H Rate Respiratory Rate [Anterior Bilateral Throughout] Respiratory Rate [Bilateral Throughout] Blood Pressure 140/86 134/92 132/90 O2 Sat by Pulse 95 95 94 Oximetry 03/24/17 03/24/17 03/24/17 08:00 08:30 09:00 Temperature 100 F H Pulse Rate 103 H 108 H 107 H Pulse Rate [ Anterior Bilateral Throughout] Pulse Rate [ Bilateral Throughout] Pulse Rate [ 102 H From Monitor] Respiratory 26 H 28 H 26 H Rate Respiratory Rate [Anterior Bilateral Throughout] Respiratory Rate [Bilateral Throughout] Blood Pressure 133/92 134/97 137/100 O2 Sat by Pulse 95 95 96 Oximetry 03/24/17 03/24/17 03/24/17 09:27 09:30 09:34 Temperature Pulse Rate 103 H 97 H 93 H Pulse Rate [ Anterior Bilateral Throughout] Pulse Rate [ Bilateral Throughout] Pulse Rate [ From Monitor] Respiratory 24 Rate Respiratory Rate [Anterior Bilateral Throughout] Respiratory Rate [Bilateral Throughout] Blood Pressure 132/106 129/95 129/95 O2 Sat by Pulse 95 93 Oximetry 03/24/17 03/24/17 03/24/17 09:40 09:58 10:00 Temperature Pulse Rate 91 H Pulse Rate [ 96 H 99 H Anterior Bilateral Throughout] Pulse Rate [ 96 H 97 H Bilateral Throughout] Pulse Rate [ From Monitor] Respiratory 24 Rate Respiratory 22 24 Rate [Anterior Bilateral Throughout] Respiratory 22 24 Rate [Bilateral Throughout] Blood Pressure 128/93 O2 Sat by Pulse 95 Oximetry 03/24/17 03/24/17 03/24/17 11:41 12:00 12:42 Temperature 99.3 F Pulse Rate 102 H 97 H Pulse Rate [ Anterior Bilateral Throughout] Pulse Rate [ Bilateral Throughout] Pulse Rate [ From Monitor] Respiratory Rate Respiratory Rate [Anterior Bilateral Throughout] Respiratory Rate [Bilateral Throughout] Blood Pressure 127/93 136/96 O2 Sat by Pulse Oximetry 03/24/17 03/24/17 03/24/17 13:45 14:20 14:38 Temperature Pulse Rate 97 H Pulse Rate [ 89 92 H Anterior Bilateral Throughout] Pulse Rate [ 94 H 91 H Bilateral Throughout] Pulse Rate [ From Monitor] Respiratory Rate Respiratory 28 H 25 H Rate [Anterior Bilateral Throughout] Respiratory 27 H 28 H Rate [Bilateral Throughout] Blood Pressure 136/96 O2 Sat by Pulse 93 Oximetry 03/24/17 14:55 Temperature Pulse Rate 104 H Pulse Rate [ Anterior Bilateral Throughout] Pulse Rate [ Bilateral Throughout] Pulse Rate [ From Monitor] Respiratory Rate Respiratory Rate [Anterior Bilateral Throughout] Respiratory Rate [Bilateral Throughout] Blood Pressure 142/94 O2 Sat by Pulse Oximetry - General Appearance General appearance: well-developed, well-nourished, appears stated age, intubated EENT: PERRL, mucous membranes moist Neck: no JVD, no thyromegaly, no carotid bruit, supple Respiratory: Present: Clear to Ascultation Cardiology: irregularly irregular Gastrointestinal: normal, normoactive bowel sounds Integumentary: no rash, other (trace to 1+ edema) - Lab 03/24/17 03:15 03/24/17 03:15 Most recent lab results Calcium 8.0 mg/dL (8.4-10.2) L 03/24/17 03:15 Phosphorus 4.60 mg/dL (2.5-4.5) H 03/06/17 04:50 Magnesium 1.60 mg/dL (1.7-2.3) L 03/19/17 06:55
[2017-03-25] MEDS: NOVOLOG SUB-Q SCH ×3 (00:40→18:31)
[2017-03-25] MEDS: HEPARIN/ 0.45% NACL-25,000 UNIT/500 ML 25,000 UNIT/500 ML BAG IV SCH ×2 (04:37→17:42)
[2017-03-25] MEDS: CARDIZEM PO SCH ×3 (05:29→17:41)
[2017-03-25] MEDS: ZOSYN/NS 2.25 GM/50ML 2.25 GM/50 ML BAG IV SCH ×3 (05:30→21:12)
[2017-03-25 05:38] LABS: ISTAT Base Excess -3; ISTAT HCO3 21.6; ISTAT PCO2 34.2 (35-45); ISTAT PH 7.408 (7.35-7.45); ISTAT PO2 81 (80-105); ISTAT SO2 96; ISTAT TCO2 23
[2017-03-25 06:12] LABS: BUN/Creatinine Ratio 14.16; Calcium 8.3 mg/dL (8.4-10.2)
[2017-03-25] MEDS: DUONEB *Not for PRN Use IH SCH ×3 (08:34→20:53)
--- NOTE | 2017-03-25 09:08 | XRay Report ---
PORTABLE CHEST INDICATION: Followup respiratory failure. COMPARISON: Yesterday. FINDINGS: Portable, frontal chest radiograph, 2:16 AM, 03/25/2017 demonstrates continued improvement in right more than left lung infiltrate/congestion with decreased right lung base hazy opacity as well. Mild hazy atelectasis/fluid at the left lung base may now though be present. Stable supporting devices and osseous structures. CONCLUSION: Improving asymmetric right lung infiltrate/edema with mild left lower lung opacity now noted, as described. Please also correlate clinically and follow up on subsequent exams. Thank you for the opportunity to participate in this patient's care.
[2017-03-25] MEDS: FOLVITE PO SCH (09:11)
[2017-03-25] MEDS: LOPRESSOR PO SCH ×4 (09:11→21:12)
[2017-03-25] MEDS: PROTONIX PO SCH (09:11)
[2017-03-25] MEDS: VITAMIN B-1 PO SCH (09:11)
--- NOTE | 2017-03-25 09:31 | Progress Note ---
Assessment and Plan Assessment and plan: Atrial fibrillation with rapid ventricular response. Ventricular rate is improving. He is off Cardizem drip, now on oral cardizem, oral metoprolol. Heparin resumed since hematuria resolved. Acute respiratory failure. He is still intubated on ventilator. Pulmonology following Acute metabolic encephalopathy. Gross hematuria 3 days ago, now resolved. Dr. Samuel, Urologist following patient. He does have history of non-obstructing stones both kidneys. Acute kidney injury. Creatinine 7.2 today . Started on dialysis Hypernatremia. now resolved. DVT left lower ext. Resumed Heparin drip. This was temporarily on hold because of gross hematuria Full CODE STATUS History Interval history: Fever Still intubated Hospitalist Physical - Physical exam Narrative exam: Gen: appearance : Intubated, sedated, obese HEENT: normocephalic atraumatic Neck :no JVD Lungs: clear to auscultation bilaterally, no crackles ,or wheezes Heart:S1 and S2 regular, no murmurs no gallop Abdomen soft, non-tender, non-distended, normal bowel sounds Extremities: no edema, no clubbing, or cyanosis Neuro : Intubated, sedated - Constitutional Vitals: Temp Pulse Resp BP Pulse Ox 98.9 F 89 24 139/92 97 03/25/17 08:00 03/25/17 09:11 03/25/17 08:47 03/25/17 09:11 03/25/17 08:47 General appearance: Present: mild distress, well-nourished, other Results - Labs CBC & Chem 7: 03/24/17 03:15 03/25/17 05:35 Labs: Laboratory Last Values WBC 23.9 K/mm3 (4.5-11.0) H 03/24/17 03:15 RBC 3.58 M/mm3 (3.65-5.03) L 03/24/17 03:15 Hgb 11.6 gm/dl (11.8-15.2) L 03/24/17 03:15 Hct 34.6 % (35.5-45.6) L 03/24/17 03:15 MCV 97 fl (84-94) H D 03/24/17 03:15 MCH 32 pg (28-32) 03/24/17 03:15 MCHC 34 % (32-34) 03/24/17 03:15 RDW 14.9 % (13.2-15.2) 03/24/17 03:15 Plt Count 122 K/mm3 (140-440) L 03/24/17 03:15 Lymph % (Auto) 8.4 % (13.4-35.0) L 03/17/17 07:06 [place] % (Auto) 8.1 % (0.0-7.3) H 03/17/17 07:06 Eos % (Auto) 1.0 % (0.0-4.3) 03/17/17 07:06 Baso % (Auto) 0.7 % (0.0-1.8) 03/17/17 07:06 Lymph # 1.4 K/mm3 (1.2-5.4) 03/17/17 07:06 [place] # 1.3 K/mm3 (0.0-0.8) H 03/17/17 07:06 Eos # 0.2 K/mm3 (0.0-0.4) 03/17/17 07:06 Baso # 0.1 K/mm3 (0.0-0.1) 03/17/17 07:06 Add Manual Diff Complete 03/22/17 07:00 Total Counted 100 03/22/17 07:00 Seg Neutrophils % 81.8 % (40.0-70.0) H 03/17/17 07:06 Seg Neuts % (Manual) 94.0 % (40.0-70.0) H 03/22/17 07:00 Band Neutrophils % 1.0 % 03/22/17 07:00 Lymphocytes % (Manual) 0 % (13.4-35.0) L 03/22/17 07:00 Reactive Lymphs % (Man) 1.0 % 03/22/17 07:00 Monocytes % (Manual) 1.0 % (0.0-7.3) 03/22/17 07:00 Eosinophils % (Manual) 3.0 % (0.0-4.3) 03/22/17 07:00 Basophils % (Manual) 0 % (0.0-1.8) 03/22/17 07:00 Metamyelocytes % 0 % 03/22/17 07:00 Myelocytes % 0 % 03/22/17 07:00 Promyelocytes % 0 % 03/22/17 07:00 Blast Cells % 0 % 03/22/17 07:00 Nucleated RBC % Not Reportable 03/22/17 07:00 Seg Neutrophils # 13.6 K/mm3 (1.8-7.7) H 03/17/17 07:06 Seg Neutrophils # Man 23.3 K/mm3 (1.8-7.7) H 03/22/17 07:00 Band Neutrophils # 0.2 K/mm3 03/22/17 07:00 Lymphocytes # (Manual) 0.0 K/mm3 (1.2-5.4) L 03/22/17 07:00 Abs React Lymphs (Man) 0.2 K/mm3 03/22/17 07:00 Monocytes # (Manual) 0.2 K/mm3 (0.0-0.8) 03/22/17 07:00 Eosinophils # (Manual) 0.7 K/mm3 (0.0-0.4) H 03/22/17 07:00 Basophils # (Manual) 0.0 K/mm3 (0.0-0.1) 03/22/17 07:00 Metamyelocytes # 0.0 K/mm3 03/22/17 07:00 Myelocytes # 0.0 K/mm3 03/22/17 07:00 Promyelocytes # 0.0 K/mm3 03/22/17 07:00 Blast Cells # 0.0 K/mm3 03/22/17 07:00 WBC Morphology Not Reportable 03/22/17 07:00 Hypersegmented Neuts Not Reportable 03/22/17 07:00 Hyposegmented Neuts Not Reportable 03/22/17 07:00 Hypogranular Neuts Not Reportable 03/22/17 07:00 Smudge Cells Not Reportable 03/22/17 07:00 Toxic Granulation Not Reportable 03/22/17 07:00 Toxic Vacuolation Not Reportable 03/22/17 07:00 Dohle Bodies Not Reportable 03/22/17 07:00 Pelger-Huet Anomaly Not Reportable 03/22/17 07:00 Marco Rods Not Reportable 03/22/17 07:00 Platelet Estimate Cons 03/22/17 07:00 Clumped Platelets Not Reportable 03/22/17 07:00 Plt Clumps, EDTA Not Reportable 03/22/17 07:00 Large Platelets Not Reportable 03/22/17 07:00 Giant Platelets Not Reportable 03/22/17 07:00 Platelet Satelliting Not Reportable 03/22/17 07:00 Plt Morphology Comment Not Reportable 03/22/17 07:00 RBC Morphology Not Reportable 03/22/17 07:00 Dimorphic RBCs Not Reportable 03/22/17 07:00 Polychromasia Not Reportable 03/22/17 07:00 Hypochromasia Not Reportable 03/22/17 07:00 Poikilocytosis 2+ 03/22/17 07:00 Anisocytosis 1+ 03/22/17 07:00 Microcytosis Not Reportable 03/22/17 07:00 Macrocytosis Not Reportable 03/22/17 07:00 Spherocytes Not Reportable 03/22/17 07:00 Pappenheimer Bodies Not Reportable 03/22/17 07:00 Sickle Cells Not Reportable 03/22/17 07:00 Target Cells Not Reportable 03/22/17 07:00 Tear Drop Cells 2+ 03/22/17 07:00 Ovalocytes Not Reportable 03/22/17 07:00 Stomatocytes Few 03/05/17 07:03 Helmet Cells Not Reportable 03/22/17 07:00 [place] Bodies Not Reportable 03/22/17 07:00 [place] Rings Not Reportable 03/22/17 07:00 [place] Cells Not Reportable 03/22/17 07:00 Bite Cells Not Reportable 03/22/17 07:00 Crenated Cell Not Reportable 03/22/17 07:00 Elliptocytes Not Reportable 03/22/17 07:00 Acanthocytes (Spur) Not Reportable 03/22/17 07:00 Rouleaux Not Reportable 03/22/17 07:00 Hemoglobin C Crystals Not Reportable 03/22/17 07:00 Schistocytes Not Reportable 03/22/17 07:00 Malaria parasites Not Reportable 03/22/17 07:00 Nishant Bodies Not Reportable 03/22/17 07:00 Hem Pathologist Commnt No 03/22/17 07:00 PT 16.2 Sec. (12.2-14.9) H 03/22/17 08:40 INR 1.31 (0.87-1.13) H 03/22/17 08:40 APTT 68.9 Sec. (24.2-36.6) H* 03/22/17 08:40 Heparin Anti-Xa Level 0.31 U.I./ml (0.3-0.7) 03/24/17 11:00 POC ABG pH 7.408 (7.35-7.45) 03/25/17 05:30 POC ABG pCO2 34.2 (35-45) L 03/25/17 05:30 POC ABG pO2 81 (80-105) 03/25/17 05:30 POC ABG HCO3 21.6 03/25/17 05:30 POC ABG Total CO2 23 03/25/17 05:30 POC ABG O2 Sat 96 03/25/17 05:30 POC ABG Base Excess -3 03/25/17 05:30 FiO2 40 % 03/25/17 05:30 Sodium 132 mmol/L (137-145) L 03/25/17 05:35 Potassium 5.0 mmol/L (3.6-5.0) 03/25/17 05:35 Chloride 92.0 mmol/L (98-107) L 03/25/17 05:35 Carbon Dioxide 20 mmol/L (22-30) L 03/25/17 05:35 Anion Gap 25 mmol/L 03/25/17 05:35 BUN 102 mg/dL (9-20) H 03/25/17 05:35 Creatinine 7.2 mg/dL (0.8-1.5) H 03/25/17 05:35 Estimated GFR 8 ml/min 03/25/17 05:35 BUN/Creatinine Ratio 14.16 % 03/25/17 05:35 Glucose 101 mg/dL (75-100) H 03/25/17 05:35 POC Glucose 93 (70-105) 03/25/17 05:10 Osmolality 324 Mosm/kg 03/21/17 21:55 Lactic Acid 1.50 mmol/L (0.7-2.0) 03/16/17 13:37 Uric Acid 7.3 mg/dL (3.5-7.6) 03/21/17 22:03 Calcium 8.3 mg/dL (8.4-10.2) L 03/25/17 05:35 Phosphorus 4.60 mg/dL (2.5-4.5) H 03/06/17 04:50 Magnesium 1.60 mg/dL (1.7-2.3) L 03/19/17 06:55 Total Bilirubin 0.70 mg/dL (0.1-1.2) 03/22/17 04:30 AST 38 units/L (5-40) 03/22/17 04:30 ALT 21 units/L (7-56) 03/22/17 04:30 Alkaline Phosphatase 102 units/L (35-129) 03/22/17 04:30 Total Creatine Kinase 148 units/L (55-170) 02/27/17 13:08 CK-MB (CK-2) 4.7 ng/mL (0.0-4.0) H 02/27/17 13:08 CK-MB (CK-2) Rel Index 3.1 (0-4) 02/27/17 13:08 Troponin T < 0.010 ng/mL (0.00-0.029) 02/27/17 13:08 Total Protein 6.3 g/dL (6.3-8.2) 03/22/17 04:30 Albumin 1.8 g/dL (3.9-5) L 03/22/17 04:30 Albumin/Globulin Ratio 0.4 % 03/22/17 04:30 Triglycerides 111 mg/dL (2-149) 03/22/17 04:30 TSH 1.480 mlU/mL (0.270-4.200) 02/26/17 23:40 Free T4 1.16 ng/dL (0.76-1.46) 02/26/17 23:40 Urine Color Yellow (Yellow) 03/03/17 10:38 Urine Turbidity Clear (Clear) 03/03/17 10:38 Urine pH 5.0 (5.0-7.0) 03/03/17 10:38 Ur Specific [place] 1.012 (1.003-1.030) 03/03/17 10:38 Urine Protein <15 mg/dl mg/dL (Negative) 03/03/17 10:38 Urine Glucose (UA) Neg mg/dL (Negative) 03/03/17 10:38 Urine Ketones Neg mg/dL (Negative) 03/03/17 10:38 Urine Blood Lg (Negative) 03/03/17 10:38 Urine Nitrite Neg (Negative) 03/03/17 10:38 Urine Bilirubin Neg (Negative) 03/03/17 10:38 Urine Urobilinogen < 2.0 mg/dL (<2.0) 03/03/17 10:38 Ur Leukocyte Esterase Tr (Negative) 03/03/17 10:38 Urine WBC (Auto) 5.0 /HPF (0.0-6.0) 03/03/17 10:38 Urine RBC (Auto) 51.0 /HPF (0.0-6.0) 03/03/17 10:38 Urine Mucus Few /HPF 03/03/17 10:38 Random Vancomycin 24.1 ug/mL (0-40.0) 03/23/17 09:34 Plasma/Serum Alcohol 0.24 gm% (0-0.07) H 02/26/17 23:40 Hepatitis A IgM Ab Non-reactive (NonReactive) 03/23/17 17:20 Hep Bs Antigen Non-reactive (Negative) 03/23/17 17:20 Hep B Core IgM Ab Non-reactive (NonReactive) 03/23/17 17:20 Hepatitis C Antibody Non-reactive (NonReactive) 03/23/17 17:20
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
--- NOTE | 2017-03-25 11:27 | Progress Note ---
Assessment and Plan 51 y/o male, noncompliant, with systolic heart failure, admitted with afib with RVR, and possible ETOH abuse, now with recurrent afib with RVR and likely aspiration pneumonia on the right resulting in acute respiratory failure. 1. Will drop PEEP to 8 today. ABG this am is much improved. 2. Follow up speciation on GNR, still not back yet. Now with Stap in sputum, will redose Vanc today. Spoke with Pharmacy. 3. Appreciated Urology. [place] stopped. 4. Continue to wean propofol, patient close to improved enough for SBT from a pulmonary standpoint. 5. Rate control per cards, heparin back on. Last note states not a good candidate for systemic anticoagulation. I assume they mean as an outpatient as patient is on heparin currently. Will clarify 6. Na now dropping, follow up renal recs. Can be adjusted with HD 7. HD per renal 8. Overall prognosis remains guarded. 9. Continue PRN Ativan so that we can start weaning Propofol CCT 31 minutes. Subjective Date of service: 03/25/17 Principal diagnosis: afib Interval history: No acute events overnight. Down to Propofol 10. Staph is now growing from tracheal aspirate. Not in blood. GNR still not speciated from blood. Remains on Zosyn. Objective Vital Signs - 12hr 03/24/17 03/24/17 03/24/17 23:30 23:35 23:46 Temperature Pulse Rate 80 79 84 Pulse Rate [ Anterior Bilateral Throughout] Pulse Rate [ From Monitor] Respiratory 24 Rate Respiratory Rate [Anterior Bilateral Throughout] Blood Pressure 128/98 134/96 128/98 O2 Sat by Pulse 97 Oximetry O2 Sat by Pulse Oximetry [ Anterior Bilateral Throughout] 03/25/17 03/25/17 03/25/17 00:00 00:30 01:00 Temperature 98.4 F Pulse Rate 80 81 86 Pulse Rate [ Anterior Bilateral Throughout] Pulse Rate [ 82 From Monitor] Respiratory 24 24 24 Rate Respiratory Rate [Anterior Bilateral Throughout] Blood Pressure 132/97 134/96 131/97 O2 Sat by Pulse 95 98 97 Oximetry O2 Sat by Pulse Oximetry [ Anterior Bilateral Throughout] 03/25/17 03/25/17 03/25/17 01:30 02:00 02:30 Temperature Pulse Rate 76 84 76 Pulse Rate [ Anterior Bilateral Throughout] Pulse Rate [ From Monitor] Respiratory 24 24 24 Rate Respiratory Rate [Anterior Bilateral Throughout] Blood Pressure 138/97 131/91 142/100 O2 Sat by Pulse 100 97 Oximetry O2 Sat by Pulse Oximetry [ Anterior Bilateral Throughout] 03/25/17 03/25/17 03/25/17 03:00 03:30 04:00 Temperature 98.4 F Pulse Rate 78 73 81 Pulse Rate [ Anterior Bilateral Throughout] Pulse Rate [ 88 From Monitor] Respiratory 24 24 24 Rate Respiratory Rate [Anterior Bilateral Throughout] Blood Pressure 134/96 137/98 143/99 O2 Sat by Pulse 96 98 98 Oximetry O2 Sat by Pulse Oximetry [ Anterior Bilateral Throughout] 03/25/17 03/25/17 03/25/17 04:30 05:00 05:29 Temperature Pulse Rate 85 82 86 Pulse Rate [ Anterior Bilateral Throughout] Pulse Rate [ From Monitor] Respiratory 25 H 24 Rate Respiratory Rate [Anterior Bilateral Throughout] Blood Pressure 135/96 139/86 139/89 O2 Sat by Pulse 97 Oximetry O2 Sat by Pulse Oximetry [ Anterior Bilateral Throughout] 03/25/17 03/25/17 03/25/17 05:30 06:00 06:30 Temperature Pulse Rate 87 85 80 Pulse Rate [ Anterior Bilateral Throughout] Pulse Rate [ From Monitor] Respiratory 24 24 24 Rate Respiratory Rate [Anterior Bilateral Throughout] Blood Pressure 139/88 127/87 130/87 O2 Sat by Pulse 98 98 99 Oximetry O2 Sat by Pulse Oximetry [ Anterior Bilateral Throughout] 03/25/17 03/25/17 03/25/17 07:00 07:30 08:00 Temperature 98.9 F Pulse Rate 89 92 H 86 Pulse Rate [ Anterior Bilateral Throughout] Pulse Rate [ From Monitor] Respiratory 24 24 24 Rate Respiratory Rate [Anterior Bilateral Throughout] Blood Pressure 137/99 133/92 129/87 O2 Sat by Pulse 98 99 Oximetry O2 Sat by Pulse Oximetry [ Anterior Bilateral Throughout] 03/25/17 03/25/17 03/25/17 08:29 08:47 09:11 Temperature Pulse Rate 83 94 H 89 Pulse Rate [ 83 85 Anterior Bilateral Throughout] Pulse Rate [ From Monitor] Respiratory Rate Respiratory 24 24 Rate [Anterior Bilateral Throughout] Blood Pressure 125/84 134/92 139/92 O2 Sat by Pulse 99 97 Oximetry O2 Sat by Pulse Oximetry [ Anterior Bilateral Throughout] 03/25/17 03/25/17 03/25/17 10:05 10:13 10:15 Temperature 98.6 F Pulse Rate 106 H 106 H 106 H Pulse Rate [ Anterior Bilateral Throughout] Pulse Rate [ From Monitor] Respiratory 24 Rate Respiratory Rate [Anterior Bilateral Throughout] Blood Pressure 142/104 150/102 O2 Sat by Pulse 95 Oximetry O2 Sat by Pulse 91 Oximetry [ Anterior Bilateral Throughout] 03/25/17 03/25/17 03/25/17 10:30 10:45 11:00 Temperature Pulse Rate 113 H 117 H 115 H Pulse Rate [ Anterior Bilateral Throughout] Pulse Rate [ From Monitor] Respiratory Rate Respiratory Rate [Anterior Bilateral Throughout] Blood Pressure 137/85 138/95 148/100 O2 Sat by Pulse Oximetry O2 Sat by Pulse Oximetry [ Anterior Bilateral Throughout] Constitutional: other (orally intubated, critically ill on vent) Eyes: non-icteric ENT: oropharynx moist Neck: supple Effort: mildly labored Ascultation: Right: rales (mostly on the right), rhonchi, Bilateral: clear, diminished breath sounds Cardiovascular: irregular rhythm (ir/ir; no mrg; tachy) Gastrointestinal: normoactive bowel sounds, soft, non-tender, non-distended, other (obese) Integumentary: normal Extremities: no cyanosis, no edema, pink and warm Neurologic: non-focal exam, pupils equal and round, other (opens eyes) Psychiatric: mood appropriate, affect normal CBC and BMP: 03/24/17 03:15 03/25/17 05:35 ABG, PT/INR, D-dimer: ABG POC ABG pH 7.408 (7.35-7.45) 03/25/17 05:30 POC ABG pCO2 34.2 (35-45) L 03/25/17 05:30 POC ABG pO2 81 (80-105) 03/25/17 05:30 POC ABG HCO3 21.6 03/25/17 05:30 POC ABG Total CO2 23 03/25/17 05:30 POC ABG O2 Sat 96 03/25/17 05:30 PT/INR, D-dimer PT 16.2 Sec. (12.2-14.9) H 03/22/17 08:40 INR 1.31 (0.87-1.13) H 03/22/17 08:40 Abnormal lab findings: Abnormal Labs 02/27/17 02/27/17 02/27/17 03:51 05:41 08:49 WBC RBC Hgb Hct MCV MCH MCHC RDW Plt Count Lymph % (Auto) Dukes % (Auto) Dukes # Seg Neutrophils % Seg Neuts % (Manual) Lymphocytes % (Manual) Monocytes % (Manual) Seg Neutrophils # Seg Neutrophils # Man Lymphocytes # (Manual) Monocytes # (Manual) Eosinophils # (Manual) PT INR APTT Heparin Anti-Xa Level POC ABG pH POC ABG pCO2 POC ABG pO2 Sodium Potassium Chloride Carbon Dioxide BUN Creatinine Glucose POC Glucose 131 H 139 H Calcium Phosphorus Magnesium Total Bilirubin AST Total Creatine Kinase 171 H CK-MB (CK-2) 5.8 H Total Protein Albumin 02/27/17 02/27/17 02/27/17 13:05 13:08 16:07 WBC RBC Hgb Hct MCV MCH MCHC RDW Plt Count Lymph % (Auto) Dukes % (Auto) Dukes # Seg Neutrophils % Seg Neuts % (Manual) Lymphocytes % (Manual) Monocytes % (Manual) Seg Neutrophils # Seg Neutrophils # Man Lymphocytes # (Manual) Monocytes # (Manual) Eosinophils # (Manual) PT INR APTT Heparin Anti-Xa Level POC ABG pH POC ABG pCO2 POC ABG pO2 Sodium Potassium Chloride Carbon Dioxide BUN Creatinine Glucose POC Glucose 146 H 138 H Calcium Phosphorus Magnesium Total Bilirubin AST Total Creatine Kinase CK-MB (CK-2) 4.7 H Total Protein Albumin 02/27/17 02/28/17 02/28/17 21:40 03:32 03:32 WBC RBC Hgb 15.9 H Hct 47.6 H MCV 100 H MCH 34 H MCHC RDW 15.4 H Plt Count Lymph % (Auto) Dukes % (Auto) Dukes # Seg Neutrophils % Seg Neuts % (Manual) Lymphocytes % (Manual) Monocytes % (Manual) Seg Neutrophils # Seg Neutrophils # Man Lymphocytes # (Manual) Monocytes # (Manual) Eosinophils # (Manual) PT INR APTT Heparin Anti-Xa Level POC ABG pH POC ABG pCO2 POC ABG pO2 Sodium Potassium Chloride 95.0 L Carbon Dioxide BUN 8 L Creatinine 0.6 L Glucose 126 H POC Glucose 140 H Calcium Phosphorus Magnesium 1.60 L Total Bilirubin AST Total Creatine Kinase CK-MB (CK-2) Total Protein Albumin 02/28/17 02/28/17 02/28/17 07:55 11:57 15:40 WBC RBC Hgb Hct MCV MCH MCHC RDW Plt Count Lymph % (Auto) Dukes % (Auto) Dukes # Seg Neutrophils % Seg Neuts % (Manual) Lymphocytes % (Manual) Monocytes % (Manual) Seg Neutrophils # Seg Neutrophils # Man Lymphocytes # (Manual) Monocytes # (Manual) Eosinophils # (Manual) PT INR APTT Heparin Anti-Xa Level POC ABG pH POC ABG pCO2 POC ABG pO2 Sodium Potassium Chloride Carbon Dioxide BUN Creatinine Glucose POC Glucose 134 H 174 H 158 H Calcium Phosphorus Magnesium Total Bilirubin AST Total Creatine Kinase CK-MB (CK-2) Total Protein Albumin 02/28/17 03/01/17 03/01/17 21:51 07:42 10:41 WBC RBC Hgb Hct MCV MCH MCHC RDW Plt Count Lymph % (Auto) Dukes % (Auto) Dukes # Seg Neutrophils % Seg Neuts % (Manual) Lymphocytes % (Manual) Monocytes % (Manual) Seg Neutrophils # Seg Neutrophils # Man Lymphocytes # (Manual) Monocytes # (Manual) Eosinophils # (Manual) PT INR APTT Heparin Anti-Xa Level POC ABG pH POC ABG pCO2 POC ABG pO2 Sodium Potassium Chloride Carbon Dioxide BUN Creatinine Glucose POC Glucose 127 H 146 H 176 H Calcium Phosphorus Magnesium Total Bilirubin AST Total Creatine Kinase CK-MB (CK-2) Total Protein Albumin 03/01/17 03/01/17 03/02/17 15:37 23:35 08:11 WBC RBC Hgb Hct MCV MCH MCHC RDW Plt Count Lymph % (Auto) Dukes % (Auto) Dukes # Seg Neutrophils % Seg Neuts % (Manual) Lymphocytes % (Manual) Monocytes % (Manual) Seg Neutrophils # Seg Neutrophils # Man Lymphocytes # (Manual) Monocytes # (Manual) Eosinophils # (Manual) PT INR APTT Heparin Anti-Xa Level POC ABG pH POC ABG pCO2 POC ABG pO2 Sodium Potassium Chloride Carbon Dioxide BUN Creatinine Glucose POC Glucose 158 H 139 H 127 H Calcium Phosphorus Magnesium Total Bilirubin AST Total Creatine Kinase CK-MB (CK-2) Total Protein Albumin 03/02/17 03/02/17 03/02/17 09:12 12:03 12:37 WBC 17.9 H RBC Hgb 16.3 H Hct 49.3 H MCV 101 H MCH 33 H MCHC RDW Plt Count Lymph % (Auto) 10.6 L Dukes % (Auto) 13.4 H Dukes # 2.4 H Seg Neutrophils % 75.2 H Seg Neuts % (Manual) Lymphocytes % (Manual) Monocytes % (Manual) Seg Neutrophils # 13.5 H Seg Neutrophils # Man Lymphocytes # (Manual) Monocytes # (Manual) Eosinophils # (Manual) PT INR APTT Heparin Anti-Xa Level POC ABG pH POC ABG pCO2 POC ABG pO2 Sodium 135 L Potassium Chloride 90.3 L Carbon Dioxide 32 H BUN Creatinine 0.6 L Glucose 124 H POC Glucose 145 H Calcium Phosphorus Magnesium Total Bilirubin AST Total Creatine Kinase CK-MB (CK-2) Total Protein Albumin 03/02/17 03/02/17 03/03/17 16:09 22:41 03:59 WBC 14.7 H RBC Hgb Hct MCV 100 H MCH 33 H MCHC RDW Plt Count Lymph % (Auto) 10.9 L Dukes % (Auto) 14.8 H Dukes # 2.2 H Seg Neutrophils % 73.6 H Seg Neuts % (Manual) Lymphocytes % (Manual) Monocytes % (Manual) Seg Neutrophils # 10.8 H Seg Neutrophils # Man Lymphocytes # (Manual) Monocytes # (Manual) Eosinophils # (Manual) PT INR APTT Heparin Anti-Xa Level POC ABG pH POC ABG pCO2 POC ABG pO2 Sodium Potassium Chloride Carbon Dioxide BUN Creatinine Glucose POC Glucose 141 H 127 H Calcium Phosphorus Magnesium Total Bilirubin AST Total Creatine Kinase CK-MB (CK-2) Total Protein Albumin 03/03/17 03/03/17 03/03/17 04:07 09:19 11:33 WBC RBC Hgb Hct MCV MCH MCHC RDW Plt Count Lymph % (Auto) Dukes % (Auto) Dukes # Seg Neutrophils % Seg Neuts % (Manual) Lymphocytes % (Manual) Monocytes % (Manual) Seg Neutrophils # Seg Neutrophils # Man Lymphocytes # (Manual) Monocytes # (Manual) Eosinophils # (Manual) PT INR APTT Heparin Anti-Xa Level POC ABG pH POC ABG pCO2 POC ABG pO2 Sodium Potassium 3.1 L D Chloride 91.1 L Carbon Dioxide BUN Creatinine 0.7 L Glucose 136 H POC Glucose 123 H 153 H Calcium Phosphorus Magnesium Total Bilirubin AST Total Creatine Kinase CK-MB (CK-2) Total Protein Albumin 03/03/17 03/04/17 03/04/17 15:46 05:58 06:04 WBC 11.4 H RBC Hgb Hct 46.0 H MCV 101 H MCH 33 H MCHC RDW Plt Count Lymph % (Auto) Dukes % (Auto) Dukes # Seg Neutrophils % Seg Neuts % (Manual) 71.0 H Lymphocytes % (Manual) 13.0 L Monocytes % (Manual) 13.0 H Seg Neutrophils # Seg Neutrophils # Man 8.1 H Lymphocytes # (Manual) Monocytes # (Manual) 1.5 H Eosinophils # (Manual) PT INR APTT Heparin Anti-Xa Level POC ABG pH POC ABG pCO2 POC ABG pO2 Sodium Potassium 3.3 L Chloride 92.2 L Carbon Dioxide 33 H BUN Creatinine 0.6 L Glucose 133 H POC Glucose 131 H Calcium Phosphorus Magnesium Total Bilirubin AST Total Creatine Kinase CK-MB (CK-2) Total Protein Albumin 03/04/17 03/04/17 03/04/17 07:54 11:24 16:00 WBC RBC Hgb Hct MCV MCH MCHC RDW Plt Count Lymph % (Auto) Dukes % (Auto) Dukes # Seg Neutrophils % Seg Neuts % (Manual) Lymphocytes % (Manual) Monocytes % (Manual) Seg Neutrophils # Seg Neutrophils # Man Lymphocytes # (Manual) Monocytes # (Manual) Eosinophils # (Manual) PT INR APTT Heparin Anti-Xa Level POC ABG pH POC ABG pCO2 POC ABG pO2 Sodium Potassium Chloride Carbon Dioxide BUN Creatinine Glucose POC Glucose 131 H 134 H 116 H Calcium Phosphorus Magnesium Total Bilirubin AST Total Creatine Kinase CK-MB (CK-2) Total Protein Albumin 03/05/17 03/05/17 03/05/17 00:39 07:03 07:03 WBC 11.4 H RBC Hgb 15.4 H Hct 46.3 H MCV 100 H MCH 33 H MCHC RDW Plt Count Lymph % (Auto) Dukes % (Auto) Dukes # Seg Neutrophils % Seg Neuts % (Manual) Lymphocytes % (Manual) Monocytes % (Manual) 20.0 H Seg Neutrophils # Seg Neutrophils # Man Lymphocytes # (Manual) Monocytes # (Manual) 2.3 H Eosinophils # (Manual) PT INR APTT Heparin Anti-Xa Level POC ABG pH POC ABG pCO2 POC ABG pO2 Sodium Potassium 3.3 L Chloride 95.2 L Carbon Dioxide 31 H BUN Creatinine 0.6 L Glucose 137 H POC Glucose 116 H Calcium Phosphorus Magnesium Total Bilirubin AST Total Creatine Kinase CK-MB (CK-2) Total Protein Albumin 03/05/17 03/05/17 03/05/17 08:05 12:15 16:07 WBC RBC Hgb Hct MCV MCH MCHC RDW Plt Count Lymph % (Auto) Dukes % (Auto) Dukes # Seg Neutrophils % Seg Neuts % (Manual) Lymphocytes % (Manual) Monocytes % (Manual) Seg Neutrophils # Seg Neutrophils # Man Lymphocytes # (Manual) Monocytes # (Manual) Eosinophils # (Manual) PT INR APTT Heparin Anti-Xa Level POC ABG pH POC ABG pCO2 POC ABG pO2 Sodium Potassium Chloride Carbon Dioxide BUN Creatinine Glucose POC Glucose 134 H 150 H 113 H Calcium Phosphorus Magnesium Total Bilirubin AST Total Creatine Kinase CK-MB (CK-2) Total Protein Albumin 03/06/17 03/06/17 03/06/17 04:45 04:50 11:50 WBC 11.8 H RBC Hgb 15.7 H Hct 47.1 H MCV 98 H MCH 33 H MCHC RDW Plt Count Lymph % (Auto) Dukes % (Auto) Dukes # Seg Neutrophils % Seg Neuts % (Manual) Lymphocytes % (Manual) 13.0 L Monocytes % (Manual) 17.0 H Seg Neutrophils # Seg Neutrophils # Man Lymphocytes # (Manual) Monocytes # (Manual) 2.0 H Eosinophils # (Manual) PT INR APTT Heparin Anti-Xa Level POC ABG pH POC ABG pCO2 POC ABG pO2 Sodium Potassium 3.2 L Chloride 94.9 L Carbon Dioxide 31 H BUN Creatinine 0.6 L Glucose 125 H POC Glucose 124 H Calcium Phosphorus 4.60 H Magnesium Total Bilirubin AST Total Creatine Kinase CK-MB (CK-2) Total Protein Albumin 03/06/17 03/06/17 03/07/17 15:43 22:07 04:30 WBC RBC Hgb Hct MCV MCH MCHC RDW Plt Count Lymph % (Auto) Dukes % (Auto) Dukes # Seg Neutrophils % Seg Neuts % (Manual) Lymphocytes % (Manual) Monocytes % (Manual) Seg Neutrophils # Seg Neutrophils # Man Lymphocytes # (Manual) Monocytes # (Manual) Eosinophils # (Manual) PT INR APTT Heparin Anti-Xa Level POC ABG pH POC ABG pCO2 POC ABG pO2 Sodium Potassium 3.4 L Chloride 95.1 L Carbon Dioxide BUN Creatinine 0.6 L Glucose 129 H POC Glucose 121 H 109 H Calcium Phosphorus Magnesium Total Bilirubin AST Total Creatine Kinase CK-MB (CK-2) Total Protein Albumin 03/07/17 03/07/17 03/07/17 04:37 12:02 15:03 WBC 11.3 H RBC Hgb Hct MCV 99 H MCH 34 H MCHC RDW Plt Count Lymph % (Auto) Dukes % (Auto) 14.6 H Dukes # 1.6 H Seg Neutrophils % Seg Neuts % (Manual) Lymphocytes % (Manual) Monocytes % (Manual) Seg Neutrophils # Seg Neutrophils # Man Lymphocytes # (Manual) Monocytes # (Manual) Eosinophils # (Manual) PT INR APTT Heparin Anti-Xa Level POC ABG pH POC ABG pCO2 POC ABG pO2 Sodium Potassium Chloride Carbon Dioxide BUN Creatinine Glucose POC Glucose 126 H 108 H Calcium Phosphorus Magnesium Total Bilirubin AST Total Creatine Kinase CK-MB (CK-2) Total Protein Albumin 03/08/17 03/08/17 03/08/17 04:58 04:58 08:22 WBC RBC Hgb 16.4 H Hct 49.3 H MCV 99 H MCH 33 H MCHC RDW Plt Count Lymph % (Auto) Dukes % (Auto) 12.1 H Dukes # 1.2 H Seg Neutrophils % 71.4 H Seg Neuts % (Manual) Lymphocytes % (Manual) Monocytes % (Manual) Seg Neutrophils # Seg Neutrophils # Man Lymphocytes # (Manual) Monocytes # (Manual) Eosinophils # (Manual) PT INR APTT Heparin Anti-Xa Level POC ABG pH POC ABG pCO2 POC ABG pO2 Sodium 136 L Potassium Chloride 93.7 L Carbon Dioxide BUN Creatinine 0.5 L Glucose 127 H POC Glucose 106 H Calcium Phosphorus Magnesium Total Bilirubin AST 50 H Total Creatine Kinase CK-MB (CK-2) Total Protein Albumin 2.7 L 03/08/17 03/08/17 03/09/17 12:14 17:50 05:26 WBC 11.8 H RBC Hgb 16.3 H Hct 49.1 H MCV 98 H MCH 33 H MCHC RDW Plt Count Lymph % (Auto) Dukes % (Auto) 10.8 H Dukes # 1.3 H Seg Neutrophils % 71.8 H Seg Neuts % (Manual) Lymphocytes % (Manual) Monocytes % (Manual) Seg Neutrophils # 8.4 H Seg Neutrophils # Man Lymphocytes # (Manual) Monocytes # (Manual) Eosinophils # (Manual) PT INR APTT Heparin Anti-Xa Level POC ABG pH POC ABG pCO2 POC ABG pO2 Sodium Potassium Chloride Carbon Dioxide BUN Creatinine Glucose POC Glucose 115 H 117 H Calcium Phosphorus Magnesium Total Bilirubin AST Total Creatine Kinase CK-MB (CK-2) Total Protein Albumin 03/09/17 03/09/17 03/09/17 05:26 12:39 16:19 WBC RBC Hgb Hct MCV MCH MCHC RDW Plt Count Lymph % (Auto) Dukes % (Auto) Dukes # Seg Neutrophils % Seg Neuts % (Manual) Lymphocytes % (Manual) Monocytes % (Manual) Seg Neutrophils # Seg Neutrophils # Man Lymphocytes # (Manual) Monocytes # (Manual) Eosinophils # (Manual) PT INR APTT Heparin Anti-Xa Level POC ABG pH POC ABG pCO2 POC ABG pO2 Sodium Potassium Chloride 94.7 L Carbon Dioxide BUN Creatinine 0.7 L Glucose 115 H POC Glucose 111 H 116 H Calcium Phosphorus Magnesium Total Bilirubin AST Total Creatine Kinase CK-MB (CK-2) Total Protein Albumin 03/09/17 03/10/17 03/10/17 22:48 08:27 11:46 WBC RBC Hgb Hct MCV MCH MCHC RDW Plt Count Lymph % (Auto) Dukes % (Auto) Dukes # Seg Neutrophils % Seg Neuts % (Manual) Lymphocytes % (Manual) Monocytes % (Manual) Seg Neutrophils # Seg Neutrophils # Man Lymphocytes # (Manual) Monocytes # (Manual) Eosinophils # (Manual) PT INR APTT Heparin Anti-Xa Level POC ABG pH POC ABG pCO2 POC ABG pO2 Sodium Potassium Chloride Carbon Dioxide BUN Creatinine Glucose POC Glucose 106 H 107 H 116 H Calcium Phosphorus Magnesium Total Bilirubin AST Total Creatine Kinase CK-MB (CK-2) Total Protein Albumin 03/10/17 03/10/17 03/11/17 17:01 21:46 08:10 WBC RBC Hgb Hct MCV MCH MCHC RDW Plt Count Lymph % (Auto) Dukes % (Auto) Dukes # Seg Neutrophils % Seg Neuts % (Manual) Lymphocytes % (Manual) Monocytes % (Manual) Seg Neutrophils # Seg Neutrophils # Man Lymphocytes # (Manual) Monocytes # (Manual) Eosinophils # (Manual) PT INR APTT Heparin Anti-Xa Level POC ABG pH POC ABG pCO2 POC ABG pO2 Sodium Potassium Chloride Carbon Dioxide BUN Creatinine Glucose POC Glucose 115 H 135 H 109 H Calcium Phosphorus Magnesium Total Bilirubin AST Total Creatine Kinase CK-MB (CK-2) Total Protein Albumin 03/11/17 03/11/17 03/11/17 12:12 17:45 22:14 WBC RBC Hgb Hct MCV MCH MCHC RDW Plt Count Lymph % (Auto) Dukes % (Auto) Dukes # Seg Neutrophils % Seg Neuts % (Manual) Lymphocytes % (Manual) Monocytes % (Manual) Seg Neutrophils # Seg Neutrophils # Man Lymphocytes # (Manual) Monocytes # (Manual) Eosinophils # (Manual) PT INR APTT Heparin Anti-Xa Level POC ABG pH POC ABG pCO2 POC ABG pO2 Sodium Potassium Chloride Carbon Dioxide BUN Creatinine Glucose POC Glucose 136 H 126 H 132 H Calcium Phosphorus Magnesium Total Bilirubin AST Total Creatine Kinase CK-MB (CK-2) Total Protein Albumin 03/12/17 03/12/17 03/12/17 08:44 08:44 12:56 WBC 14.9 H RBC 5.04 H Hgb 16.1 H Hct 48.8 H MCV 97 H MCH MCHC RDW Plt Count Lymph % (Auto) 11.7 L Dukes % (Auto) 11.6 H Dukes # 1.7 H Seg Neutrophils % 75.5 H Seg Neuts % (Manual) Lymphocytes % (Manual) Monocytes % (Manual) Seg Neutrophils # 11.2 H Seg Neutrophils # Man Lymphocytes # (Manual) Monocytes # (Manual) Eosinophils # (Manual) PT INR APTT Heparin Anti-Xa Level POC ABG pH POC ABG pCO2 POC ABG pO2 Sodium Potassium 3.2 L Chloride 93.4 L Carbon Dioxide BUN Creatinine 0.6 L Glucose 121 H POC Glucose 129 H Calcium Phosphorus Magnesium Total Bilirubin 1.30 H AST Total Creatine Kinase CK-MB (CK-2) Total Protein Albumin 3.2 L 03/12/17 03/13/17 03/13/17 17:13 09:05 11:36 WBC RBC Hgb Hct MCV MCH MCHC RDW Plt Count Lymph % (Auto) Dukes % (Auto) Dukes # Seg Neutrophils % Seg Neuts % (Manual) Lymphocytes % (Manual) Monocytes % (Manual) Seg Neutrophils # Seg Neutrophils # Man Lymphocytes # (Manual) Monocytes # (Manual) Eosinophils # (Manual) PT INR APTT Heparin Anti-Xa Level POC ABG pH POC ABG pCO2 POC ABG pO2 Sodium Potassium Chloride Carbon Dioxide BUN Creatinine Glucose POC Glucose 161 H 110 H 126 H Calcium Phosphorus Magnesium Total Bilirubin AST Total Creatine Kinase CK-MB (CK-2) Total Protein Albumin 03/13/17 03/13/17 03/14/17 16:17 21:43 08:40 WBC RBC Hgb Hct MCV MCH MCHC RDW Plt Count Lymph % (Auto) Dukes % (Auto) Dukes # Seg Neutrophils % Seg Neuts % (Manual) Lymphocytes % (Manual) Monocytes % (Manual) Seg Neutrophils # Seg Neutrophils # Man Lymphocytes # (Manual) Monocytes # (Manual) Eosinophils # (Manual) PT INR APTT Heparin Anti-Xa Level POC ABG pH POC ABG pCO2 POC ABG pO2 Sodium Potassium Chloride Carbon Dioxide BUN Creatinine Glucose POC Glucose 126 H 115 H 106 H Calcium Phosphorus Magnesium Total Bilirubin AST Total Creatine Kinase CK-MB (CK-2) Total Protein Albumin 03/14/17 03/14/17 03/14/17 12:01 17:39 20:30 WBC RBC Hgb Hct MCV MCH MCHC RDW Plt Count Lymph % (Auto) Dukes % (Auto) Dukes # Seg Neutrophils % Seg Neuts % (Manual) Lymphocytes % (Manual) Monocytes % (Manual) Seg Neutrophils # Seg Neutrophils # Man Lymphocytes # (Manual) Monocytes # (Manual) Eosinophils # (Manual) PT INR APTT Heparin Anti-Xa Level POC ABG pH POC ABG pCO2 POC ABG pO2 Sodium Potassium Chloride Carbon Dioxide BUN Creatinine Glucose POC Glucose 116 H 192 H 122 H Calcium Phosphorus Magnesium Total Bilirubin AST Total Creatine Kinase CK-MB (CK-2) Total Protein Albumin 03/15/17 03/15/17 03/15/17 01:12 06:49 08:46 WBC 23.9 H RBC Hgb 16.1 H Hct 49.4 H MCV 100 H D MCH 33 H MCHC RDW Plt Count Lymph % (Auto) Dukes % (Auto) Dukes # Seg Neutrophils % Seg Neuts % (Manual) 92.0 H Lymphocytes % (Manual) 4.0 L Monocytes % (Manual) Seg Neutrophils # Seg Neutrophils # Man 22.0 H Lymphocytes # (Manual) 1.0 L Monocytes # (Manual) 1.0 H Eosinophils # (Manual) PT INR APTT Heparin Anti-Xa Level POC ABG pH POC ABG pCO2 POC ABG pO2 Sodium Potassium Chloride 91.0 L Carbon Dioxide 33 H BUN 45 H Creatinine Glucose 160 H POC Glucose 147 H Calcium Phosphorus Magnesium Total Bilirubin AST 41 H Total Creatine Kinase CK-MB (CK-2) Total Protein Albumin 3.0 L 03/15/17 03/15/17 03/15/17 12:11 16:00 20:51 WBC RBC Hgb Hct MCV MCH MCHC RDW Plt Count Lymph % (Auto) Dukes % (Auto) Dukes # Seg Neutrophils % Seg Neuts % (Manual) Lymphocytes % (Manual) Monocytes % (Manual) Seg Neutrophils # Seg Neutrophils # Man Lymphocytes # (Manual) Monocytes # (Manual) Eosinophils # (Manual) PT INR APTT Heparin Anti-Xa Level POC ABG pH POC ABG pCO2 POC ABG pO2 Sodium Potassium Chloride Carbon Dioxide BUN Creatinine Glucose POC Glucose 144 H 134 H 148 H Calcium Phosphorus Magnesium Total Bilirubin AST Total Creatine Kinase CK-MB (CK-2) Total Protein Albumin 03/16/17 03/16/17 03/16/17 05:59 06:02 09:15 WBC 20.9 H RBC Hgb Hct 45.8 H MCV 99 H MCH 33 H MCHC RDW Plt Count Lymph % (Auto) Dukes % (Auto) Dukes # Seg Neutrophils % Seg Neuts % (Manual) 92.0 H Lymphocytes % (Manual) 4.0 L Monocytes % (Manual) Seg Neutrophils # Seg Neutrophils # Man 19.2 H Lymphocytes # (Manual) 0.8 L Monocytes # (Manual) Eosinophils # (Manual) PT INR APTT Heparin Anti-Xa Level POC ABG pH POC ABG pCO2 POC ABG pO2 Sodium Potassium Chloride 92.3 L Carbon Dioxide 34 H BUN 44 H Creatinine Glucose 150 H POC Glucose 127 H Calcium Phosphorus Magnesium Total Bilirubin AST Total Creatine Kinase CK-MB (CK-2) Total Protein Albumin 03/16/17 03/16/17 03/17/17 11:59 18:08 07:06 WBC RBC Hgb Hct MCV MCH MCHC RDW Plt Count Lymph % (Auto) Dukes % (Auto) Dukes # Seg Neutrophils % Seg Neuts % (Manual) Lymphocytes % (Manual) Monocytes % (Manual) Seg Neutrophils # Seg Neutrophils # Man Lymphocytes # (Manual) Monocytes # (Manual) Eosinophils # (Manual) PT INR APTT Heparin Anti-Xa Level POC ABG pH POC ABG pCO2 POC ABG pO2 Sodium Potassium Chloride 93.3 L Carbon Dioxide 35 H BUN 31 H Creatinine Glucose 132 H POC Glucose 147 H 138 H Calcium Phosphorus Magnesium Total Bilirubin AST Total Creatine Kinase CK-MB (CK-2) Total Protein Albumin 03/17/17 03/17/17 03/17/17 07:06 07:14 12:35 WBC 16.6 H RBC Hgb 15.6 H Hct 47.5 H MCV 99 H MCH 33 H MCHC RDW Plt Count Lymph % (Auto) 8.4 L Dukes % (Auto) 8.1 H Dukes # 1.3 H Seg Neutrophils % 81.8 H Seg Neuts % (Manual) Lymphocytes % (Manual) Monocytes % (Manual) Seg Neutrophils # 13.6 H Seg Neutrophils # Man Lymphocytes # (Manual) Monocytes # (Manual) Eosinophils # (Manual) PT INR APTT Heparin Anti-Xa Level POC ABG pH POC ABG pCO2 POC ABG pO2 Sodium Potassium Chloride Carbon Dioxide BUN Creatinine Glucose POC Glucose 119 H 132 H Calcium Phosphorus Magnesium Total Bilirubin AST Total Creatine Kinase CK-MB (CK-2) Total Protein Albumin 03/18/17 03/18/17 03/18/17 05:05 06:15 06:15 WBC 15.8 H RBC Hgb 16.5 H Hct 49.3 H MCV 99 H MCH 33 H MCHC RDW Plt Count Lymph % (Auto) Dukes % (Auto) Dukes # Seg Neutrophils % Seg Neuts % (Manual) 88.0 H Lymphocytes % (Manual) 2.0 L Monocytes % (Manual) 8.0 H Seg Neutrophils # Seg Neutrophils # Man 13.9 H Lymphocytes # (Manual) 0.3 L Monocytes # (Manual) 1.3 H Eosinophils # (Manual) PT INR APTT Heparin Anti-Xa Level POC ABG pH POC ABG pCO2 72.9 H POC ABG pO2 168 H Sodium 147 H Potassium 3.5 L Chloride 95.3 L Carbon Dioxide 37 H BUN 29 H Creatinine Glucose 155 H POC Glucose Calcium Phosphorus Magnesium Total Bilirubin AST Total Creatine Kinase CK-MB (CK-2) Total Protein Albumin 03/18/17 03/18/17 03/18/17 08:27 11:24 11:31 WBC RBC Hgb Hct MCV MCH MCHC RDW Plt Count Lymph % (Auto) Dukes % (Auto) Dukes # Seg Neutrophils % Seg Neuts % (Manual) Lymphocytes % (Manual) Monocytes % (Manual) Seg Neutrophils # Seg Neutrophils # Man Lymphocytes # (Manual) Monocytes # (Manual) Eosinophils # (Manual) PT INR APTT Heparin Anti-Xa Level POC ABG pH 7.530 H POC ABG pCO2 POC ABG pO2 60 L Sodium Potassium Chloride Carbon Dioxide BUN Creatinine Glucose POC Glucose 123 H 176 H Calcium Phosphorus Magnesium Total Bilirubin AST Total Creatine Kinase CK-MB (CK-2) Total Protein Albumin 03/18/17 03/18/17 03/18/17 14:10 15:24 17:23 WBC RBC Hgb 15.4 H Hct 46.4 H MCV MCH MCHC RDW Plt Count Lymph % (Auto) Dukes % (Auto) Dukes # Seg Neutrophils % Seg Neuts % (Manual) Lymphocytes % (Manual) Monocytes % (Manual) Seg Neutrophils # Seg Neutrophils # Man Lymphocytes # (Manual) Monocytes # (Manual) Eosinophils # (Manual) PT INR APTT Heparin Anti-Xa Level POC ABG pH POC ABG pCO2 POC ABG pO2 Sodium Potassium Chloride 94.5 L Carbon Dioxide 33 H BUN 33 H Creatinine 1.6 H Glucose 241 H POC Glucose 244 H Calcium Phosphorus Magnesium Total Bilirubin AST Total Creatine Kinase CK-MB (CK-2) Total Protein Albumin 3.0 L 03/18/17 03/18/17 03/19/17 17:23 21:33 03:54 WBC 25.4 H RBC Hgb Hct MCV 98 H MCH MCHC RDW Plt Count Lymph % (Auto) Dukes % (Auto) Dukes # Seg Neutrophils % Seg Neuts % (Manual) 83.0 H Lymphocytes % (Manual) 4.5 L Monocytes % (Manual) 8.0 H Seg Neutrophils # Seg Neutrophils # Man 21.1 H Lymphocytes # (Manual) 1.1 L Monocytes # (Manual) 2.0 H Eosinophils # (Manual) PT 17.1 H INR 1.40 H APTT Heparin Anti-Xa Level POC ABG pH POC ABG pCO2 POC ABG pO2 Sodium Potassium Chloride Carbon Dioxide BUN Creatinine Glucose POC Glucose 164 H Calcium Phosphorus Magnesium Total Bilirubin AST Total Creatine Kinase CK-MB (CK-2) Total Protein Albumin 03/19/17 03/19/17 03/19/17 03:54 06:55 06:55 WBC RBC Hgb Hct MCV MCH MCHC RDW Plt Count Lymph % (Auto) Dukes % (Auto) Dukes # Seg Neutrophils % Seg Neuts % (Manual) Lymphocytes % (Manual) Monocytes % (Manual) Seg Neutrophils # Seg Neutrophils # Man Lymphocytes # (Manual) Monocytes # (Manual) Eosinophils # (Manual) PT INR APTT Heparin Anti-Xa Level 0.29 L POC ABG pH POC ABG pCO2 POC ABG pO2 Sodium 146 H Potassium 3.4 L Chloride 97.8 L Carbon Dioxide 33 H BUN 30 H Creatinine Glucose 134 H POC Glucose Calcium Phosphorus Magnesium 1.60 L Total Bilirubin AST Total Creatine Kinase CK-MB (CK-2) Total Protein Albumin 03/19/17 03/19/17 03/19/17 08:01 12:56 14:54 WBC RBC Hgb Hct MCV MCH MCHC RDW Plt Count Lymph % (Auto) Dukes % (Auto) Dukes # Seg Neutrophils % Seg Neuts % (Manual) Lymphocytes % (Manual) Monocytes % (Manual) Seg Neutrophils # Seg Neutrophils # Man Lymphocytes # (Manual) Monocytes # (Manual) Eosinophils # (Manual) PT INR APTT Heparin Anti-Xa Level POC ABG pH POC ABG pCO2 57.8 H POC ABG pO2 71 L Sodium Potassium Chloride Carbon Dioxide BUN Creatinine Glucose POC Glucose 139 H 167 H Calcium Phosphorus Magnesium Total Bilirubin AST Total Creatine Kinase CK-MB (CK-2) Total Protein Albumin 03/19/17 03/19/17 03/20/17 15:53 21:04 03:36 WBC RBC Hgb 15.3 H Hct 48.1 H MCV MCH MCHC RDW Plt Count Lymph % (Auto) Dukes % (Auto) Dukes # Seg Neutrophils % Seg Neuts % (Manual) Lymphocytes % (Manual) Monocytes % (Manual) Seg Neutrophils # Seg Neutrophils # Man Lymphocytes # (Manual) Monocytes # (Manual) Eosinophils # (Manual) PT INR APTT Heparin Anti-Xa Level POC ABG pH POC ABG pCO2 POC ABG pO2 Sodium Potassium Chloride Carbon Dioxide BUN Creatinine Glucose POC Glucose 172 H 159 H Calcium Phosphorus Magnesium Total Bilirubin AST Total Creatine Kinase CK-MB (CK-2) Total Protein Albumin 03/20/17 03/20/17 03/20/17 07:45 12:02 14:07 WBC RBC Hgb Hct MCV MCH MCHC RDW Plt Count Lymph % (Auto) Dukes % (Auto) Dukes # Seg Neutrophils % Seg Neuts % (Manual) Lymphocytes % (Manual) Monocytes % (Manual) Seg Neutrophils # Seg Neutrophils # Man Lymphocytes # (Manual) Monocytes # (Manual) Eosinophils # (Manual) PT INR APTT Heparin Anti-Xa Level POC ABG pH 7.312 L POC ABG pCO2 68.3 H POC ABG pO2 47 L Sodium Potassium Chloride Carbon Dioxide BUN Creatinine Glucose POC Glucose 160 H 142 H Calcium Phosphorus Magnesium Total Bilirubin AST Total Creatine Kinase CK-MB (CK-2) Total Protein Albumin 03/20/17 03/20/17 03/20/17 15:57 15:59 19:50 WBC RBC Hgb Hct MCV MCH MCHC RDW Plt Count Lymph % (Auto) Dukes % (Auto) Dukes # Seg Neutrophils % Seg Neuts % (Manual) Lymphocytes % (Manual) Monocytes % (Manual) Seg Neutrophils # Seg Neutrophils # Man Lymphocytes # (Manual) Monocytes # (Manual) Eosinophils # (Manual) PT INR APTT Heparin Anti-Xa Level POC ABG pH 7.214 L POC ABG pCO2 82.8 H 58.7 H POC ABG pO2 69 L Sodium Potassium Chloride Carbon Dioxide BUN Creatinine Glucose POC Glucose 149 H Calcium Phosphorus Magnesium Total Bilirubin AST Total Creatine Kinase CK-MB (CK-2) Total Protein Albumin 03/20/17 03/20/17 03/21/17 21:19 23:34 04:18 WBC RBC Hgb Hct MCV MCH MCHC RDW Plt Count Lymph % (Auto) Dukes % (Auto) Dukes # Seg Neutrophils % Seg Neuts % (Manual) Lymphocytes % (Manual) Monocytes % (Manual) Seg Neutrophils # Seg Neutrophils # Man Lymphocytes # (Manual) Monocytes # (Manual) Eosinophils # (Manual) PT INR APTT Heparin Anti-Xa Level 0.20 L POC ABG pH POC ABG pCO2 48.6 H POC ABG pO2 79 L Sodium Potassium Chloride Carbon Dioxide BUN Creatinine Glucose POC Glucose 206 H Calcium Phosphorus Magnesium Total Bilirubin AST Total Creatine Kinase CK-MB (CK-2) Total Protein Albumin 03/21/17 03/21/17 03/21/17 04:21 04:21 05:23 WBC RBC Hgb Hct MCV MCH MCHC RDW Plt Count Lymph % (Auto) Dukes % (Auto) Dukes # Seg Neutrophils % Seg Neuts % (Manual) Lymphocytes % (Manual) Monocytes % (Manual) Seg Neutrophils # Seg Neutrophils # Man Lymphocytes # (Manual) Monocytes # (Manual) Eosinophils # (Manual) PT INR APTT Heparin Anti-Xa Level 0.24 L POC ABG pH POC ABG pCO2 POC ABG pO2 Sodium 147 H Potassium Chloride Carbon Dioxide BUN 42 H Creatinine 2.6 H D Glucose 209 H POC Glucose 181 H Calcium 7.9 L Phosphorus Magnesium Total Bilirubin AST Total Creatine Kinase CK-MB (CK-2) Total Protein Albumin 03/21/17 03/21/17 03/21/17 13:16 13:16 14:43 WBC 27.8 H RBC Hgb Hct MCV 101 H D MCH MCHC RDW Plt Count Lymph % (Auto) Dukes % (Auto) Dukes # Seg Neutrophils % Seg Neuts % (Manual) 76.0 H Lymphocytes % (Manual) 7.0 L Monocytes % (Manual) Seg Neutrophils # Seg Neutrophils # Man 21.1 H Lymphocytes # (Manual) Monocytes # (Manual) 1.1 H Eosinophils # (Manual) PT INR APTT Heparin Anti-Xa Level 0.25 L POC ABG pH 7.474 H POC ABG pCO2 POC ABG pO2 59 L Sodium Potassium Chloride Carbon Dioxide BUN Creatinine Glucose POC Glucose Calcium Phosphorus Magnesium Total Bilirubin AST Total Creatine Kinase CK-MB (CK-2) Total Protein Albumin 03/21/17 03/21/17 03/21/17 17:00 18:20 23:40 WBC RBC Hgb Hct MCV MCH MCHC RDW Plt Count Lymph % (Auto) Dukes % (Auto) Dukes # Seg Neutrophils % Seg Neuts % (Manual) Lymphocytes % (Manual) Monocytes % (Manual) Seg Neutrophils # Seg Neutrophils # Man Lymphocytes # (Manual) Monocytes # (Manual) Eosinophils # (Manual) PT INR APTT Heparin Anti-Xa Level POC ABG pH POC ABG pCO2 POC ABG pO2 Sodium Potassium Chloride Carbon Dioxide BUN 48 H Creatinine 3.2 H Glucose 135 H POC Glucose 152 H 136 H Calcium 6.8 L Phosphorus Magnesium Total Bilirubin AST Total Creatine Kinase CK-MB (CK-2) Total Protein 5.3 L D Albumin 1.7 L 03/22/17 03/22/17 03/22/17 04:30 04:30 04:30 WBC 29.3 H RBC Hgb Hct MCV 100 H MCH MCHC 31 L RDW 15.3 H Plt Count Lymph % (Auto) Dukes % (Auto) Dukes # Seg Neutrophils % Seg Neuts % (Manual) Lymphocytes % (Manual) Monocytes % (Manual) Seg Neutrophils # Seg Neutrophils # Man Lymphocytes # (Manual) Monocytes # (Manual) Eosinophils # (Manual) PT INR APTT Heparin Anti-Xa Level 0.29 L POC ABG pH POC ABG pCO2 POC ABG pO2 Sodium Potassium Chloride Carbon Dioxide BUN 60 H Creatinine 4.3 H Glucose 118 H POC Glucose Calcium 8.2 L D Phosphorus Magnesium Total Bilirubin AST Total Creatine Kinase CK-MB (CK-2) Total Protein Albumin 1.8 L 03/22/17 03/22/17 03/22/17 05:08 07:00 07:00 WBC 24.8 H RBC Hgb Hct MCV 100 H MCH MCHC RDW Plt Count Lymph % (Auto) Dukes % (Auto) Dukes # Seg Neutrophils % Seg Neuts % (Manual) 94.0 H Lymphocytes % (Manual) 0 L Monocytes % (Manual) Seg Neutrophils # Seg Neutrophils # Man 23.3 H Lymphocytes # (Manual) 0.0 L Monocytes # (Manual) Eosinophils # (Manual) 0.7 H PT INR APTT Heparin Anti-Xa Level POC ABG pH POC ABG pCO2 POC ABG pO2 Sodium 147 H Potassium Chloride 109.2 H Carbon Dioxide BUN 58 H Creatinine 4.1 H Glucose 117 H POC Glucose 124 H Calcium 7.4 L Phosphorus Magnesium Total Bilirubin AST Total Creatine Kinase CK-MB (CK-2) Total Protein Albumin 03/22/17 03/22/17 03/22/17 08:40 11:37 14:30 WBC RBC Hgb Hct MCV MCH MCHC RDW Plt Count Lymph % (Auto) Dukes % (Auto) Dukes # Seg Neutrophils % Seg Neuts % (Manual) Lymphocytes % (Manual) Monocytes % (Manual) Seg Neutrophils # Seg Neutrophils # Man Lymphocytes # (Manual) Monocytes # (Manual) Eosinophils # (Manual) PT 16.2 H INR 1.31 H APTT 68.9 H* Heparin Anti-Xa Level < 0.10 L POC ABG pH POC ABG pCO2 POC ABG pO2 Sodium Potassium Chloride Carbon Dioxide BUN Creatinine Glucose POC Glucose 159 H Calcium Phosphorus Magnesium Total Bilirubin AST Total Creatine Kinase CK-MB (CK-2) Total Protein Albumin 03/22/17 03/22/17 03/22/17 17:53 21:44 23:54 WBC RBC Hgb 11.6 L Hct 33.1 L MCV MCH MCHC RDW Plt Count Lymph % (Auto) Dukes % (Auto) Dukes # Seg Neutrophils % Seg Neuts % (Manual) Lymphocytes % (Manual) Monocytes % (Manual) Seg Neutrophils # Seg Neutrophils # Man Lymphocytes # (Manual) Monocytes # (Manual) Eosinophils # (Manual) PT INR APTT Heparin Anti-Xa Level POC ABG pH POC ABG pCO2 POC ABG pO2 Sodium Potassium Chloride Carbon Dioxide BUN Creatinine Glucose POC Glucose 142 H 131 H Calcium Phosphorus Magnesium Total Bilirubin AST Total Creatine Kinase CK-MB (CK-2) Total Protein Albumin 03/23/17 03/23/17 03/23/17 04:08 05:29 06:34 WBC RBC Hgb Hct MCV MCH MCHC RDW Plt Count Lymph % (Auto) Dukes % (Auto) Dukes # Seg Neutrophils % Seg Neuts % (Manual) Lymphocytes % (Manual) Monocytes % (Manual) Seg Neutrophils # Seg Neutrophils # Man Lymphocytes # (Manual) Monocytes # (Manual) Eosinophils # (Manual) PT INR APTT Heparin Anti-Xa Level POC ABG pH POC ABG pCO2 POC ABG pO2 75 L Sodium Potassium Chloride Carbon Dioxide 21 L BUN 85 H Creatinine 6.0 H Glucose 134 H POC Glucose 134 H Calcium 8.1 L Phosphorus Magnesium Total Bilirubin AST Total Creatine Kinase CK-MB (CK-2) Total Protein Albumin 03/23/17 03/23/17 03/23/17 12:09 17:20 17:52 WBC RBC Hgb Hct MCV MCH MCHC RDW Plt Count Lymph % (Auto) Dukes % (Auto) Dukes # Seg Neutrophils % Seg Neuts % (Manual) Lymphocytes % (Manual) Monocytes % (Manual) Seg Neutrophils # Seg Neutrophils # Man Lymphocytes # (Manual) Monocytes # (Manual) Eosinophils # (Manual) PT INR APTT Heparin Anti-Xa Level 1.39 H POC ABG pH POC ABG pCO2 POC ABG pO2 Sodium Potassium Chloride Carbon Dioxide BUN Creatinine Glucose POC Glucose 133 H 151 H Calcium Phosphorus Magnesium Total Bilirubin AST Total Creatine Kinase CK-MB (CK-2) Total Protein Albumin 03/23/17 03/24/17 03/24/17 23:59 03:15 03:15 WBC 23.9 H RBC 3.58 L Hgb 11.6 L Hct 34.6 L MCV 97 H D MCH MCHC RDW Plt Count 122 L Lymph % (Auto) Dukes % (Auto) Dukes # Seg Neutrophils % Seg Neuts % (Manual) Lymphocytes % (Manual) Monocytes % (Manual) Seg Neutrophils # Seg Neutrophils # Man Lymphocytes # (Manual) Monocytes # (Manual) Eosinophils # (Manual) PT INR APTT Heparin Anti-Xa Level POC ABG pH POC ABG pCO2 POC ABG pO2 Sodium 135 L Potassium Chloride 95.0 L Carbon Dioxide BUN 71 H Creatinine 5.2 H Glucose 123 H POC Glucose 124 H Calcium 8.0 L Phosphorus Magnesium Total Bilirubin AST Total Creatine Kinase CK-MB (CK-2) Total Protein Albumin 03/24/17 03/24/17 03/24/17 03:15 04:53 11:58 WBC RBC Hgb Hct MCV MCH MCHC RDW Plt Count Lymph % (Auto) Dukes % (Auto) Dukes # Seg Neutrophils % Seg Neuts % (Manual) Lymphocytes % (Manual) Monocytes % (Manual) Seg Neutrophils # Seg Neutrophils # Man Lymphocytes # (Manual) Monocytes # (Manual) Eosinophils # (Manual) PT INR APTT Heparin Anti-Xa Level 0.20 L POC ABG pH POC ABG pCO2 POC ABG pO2 72 L Sodium Potassium Chloride Carbon Dioxide BUN Creatinine Glucose POC Glucose 121 H Calcium Phosphorus Magnesium Total Bilirubin AST Total Creatine Kinase CK-MB (CK-2) Total Protein Albumin 03/24/17 03/25/17 03/25/17 18:16 00:24 05:30 WBC RBC Hgb Hct MCV MCH MCHC RDW Plt Count Lymph % (Auto) Dukes % (Auto) Dukes # Seg Neutrophils % Seg Neuts % (Manual) Lymphocytes % (Manual) Monocytes % (Manual) Seg Neutrophils # Seg Neutrophils # Man Lymphocytes # (Manual) Monocytes # (Manual) Eosinophils # (Manual) PT INR APTT Heparin Anti-Xa Level POC ABG pH POC ABG pCO2 34.2 L POC ABG pO2 Sodium Potassium Chloride Carbon Dioxide BUN Creatinine Glucose POC Glucose 117 H 107 H Calcium Phosphorus Magnesium Total Bilirubin AST Total Creatine Kinase CK-MB (CK-2) Total Protein Albumin 03/25/17 05:35 WBC RBC Hgb Hct MCV MCH MCHC RDW Plt Count Lymph % (Auto) Dukes % (Auto) Dukes # Seg Neutrophils % Seg Neuts % (Manual) Lymphocytes % (Manual) Monocytes % (Manual) Seg Neutrophils # Seg Neutrophils # Man Lymphocytes # (Manual) Monocytes # (Manual) Eosinophils # (Manual) PT INR APTT Heparin Anti-Xa Level POC ABG pH POC ABG pCO2 POC ABG pO2 Sodium 132 L Potassium Chloride 92.0 L Carbon Dioxide 20 L BUN 102 H Creatinine 7.2 H Glucose 101 H POC Glucose Calcium 8.3 L Phosphorus Magnesium Total Bilirubin AST Total Creatine Kinase CK-MB (CK-2) Total Protein Albumin
[2017-03-25] MEDS ORDERED: NACL 0.9% 1000 ML 2,000 ML ONE (11:28)
[2017-03-25] MEDS ORDERED: VANCOMYCIN 1,500 MG in NACL 0.9% 500 ML 500 ML IV ONE (12:00)
[2017-03-25] MEDS: DIPRIVAN 10 MG/ML 1,000 MG/100 ML BOTTLE IV SCH (12:30)
--- NOTE | 2017-03-25 14:00 | Progress Note ---
Assessment and Plan Acute kidney injury in a patient who has been felt to have acute tubular necrosis initiated on renal replacement therapy to monitor for any recovery of renal function Rule out any possibility of vancomycin toxicity ongoing dialysis for now, patient was dialyzed today without any problems Anemia hemoglobin has dropped from 15.3-11.6 Platelet count has also dropped which is concerning, will send lab for HIT panel Initiated on renal replacement therapy to monitor for any recovery of renal function Multiorgan failure, prognosis guarded continue with supportive care monitor for recovery of renal function Well continue to follow and make recommendation from renal standpoint Avoid any follow-up nephrotoxic drug monitor for recovery of renal function Subjective Principal diagnosis: afib Interval history: patient was seen around 1:30 in the afternoon Patient is seen today for follow-up on multiple renal-related issues this was also discussed with ICU nurse Patient did finish dialysis today and tolerated well Events of this hospitalization were noted Vital labs intake output medications were reviewed Physical examination HEENT: Oral mucosa moist Neck: Supple no evidence of thyromegaly nodular mass or JVD Chest: Clear to auscultation anteriorly,has some crackles to the sites Heart: Regular rate rhythm S1-S2 heard no S3-S4 Abdomen: Soft nontender Extremity: Minimal edema dry skin Objective - Vital Signs Vital signs: Vital Signs - 12hr 03/25/17 03/25/17 03/25/17 02:30 03:00 03:30 Temperature Pulse Rate 76 78 73 Pulse Rate [ Anterior Bilateral Throughout] Pulse Rate [ From Monitor] Respiratory 24 24 24 Rate Respiratory Rate [Anterior Bilateral Throughout] Blood Pressure 142/100 134/96 137/98 O2 Sat by Pulse 96 98 Oximetry O2 Sat by Pulse Oximetry [ Anterior Bilateral Throughout] 03/25/17 03/25/17 03/25/17 04:00 04:30 05:00 Temperature 98.4 F Pulse Rate 81 85 82 Pulse Rate [ Anterior Bilateral Throughout] Pulse Rate [ 88 From Monitor] Respiratory 24 25 H 24 Rate Respiratory Rate [Anterior Bilateral Throughout] Blood Pressure 143/99 135/96 139/86 O2 Sat by Pulse 98 97 Oximetry O2 Sat by Pulse Oximetry [ Anterior Bilateral Throughout] 03/25/17 03/25/17 03/25/17 05:29 05:30 06:00 Temperature Pulse Rate 86 87 85 Pulse Rate [ Anterior Bilateral Throughout] Pulse Rate [ From Monitor] Respiratory 24 24 Rate Respiratory Rate [Anterior Bilateral Throughout] Blood Pressure 139/89 139/88 127/87 O2 Sat by Pulse 98 98 Oximetry O2 Sat by Pulse Oximetry [ Anterior Bilateral Throughout] 03/25/17 03/25/17 03/25/17 06:30 07:00 07:30 Temperature Pulse Rate 80 89 92 H Pulse Rate [ Anterior Bilateral Throughout] Pulse Rate [ From Monitor] Respiratory 24 24 24 Rate Respiratory Rate [Anterior Bilateral Throughout] Blood Pressure 130/87 137/99 133/92 O2 Sat by Pulse 99 98 Oximetry O2 Sat by Pulse Oximetry [ Anterior Bilateral Throughout] 03/25/17 03/25/17 03/25/17 08:00 08:29 08:30 Temperature 98.9 F Pulse Rate 86 83 88 Pulse Rate [ 83 Anterior Bilateral Throughout] Pulse Rate [ From Monitor] Respiratory 24 24 Rate Respiratory 24 Rate [Anterior Bilateral Throughout] Blood Pressure 129/87 125/84 134/92 O2 Sat by Pulse 99 99 Oximetry O2 Sat by Pulse Oximetry [ Anterior Bilateral Throughout] 03/25/17 03/25/17 03/25/17 08:47 09:00 09:11 Temperature Pulse Rate 94 H 93 H 89 Pulse Rate [ 85 Anterior Bilateral Throughout] Pulse Rate [ From Monitor] Respiratory 24 Rate Respiratory 24 Rate [Anterior Bilateral Throughout] Blood Pressure 134/92 139/92 139/92 O2 Sat by Pulse 97 98 Oximetry O2 Sat by Pulse Oximetry [ Anterior Bilateral Throughout] 03/25/17 03/25/17 03/25/17 09:30 10:00 10:05 Temperature 98.6 F Pulse Rate 98 H 108 H 106 H Pulse Rate [ Anterior Bilateral Throughout] Pulse Rate [ From Monitor] Respiratory 23 26 H 24 Rate Respiratory Rate [Anterior Bilateral Throughout] Blood Pressure 140/94 148/106 142/104 O2 Sat by Pulse 96 Oximetry O2 Sat by Pulse 91 Oximetry [ Anterior Bilateral Throughout] 03/25/17 03/25/17 03/25/17 10:13 10:15 10:30 Temperature Pulse Rate 106 H 106 H 119 H Pulse Rate [ Anterior Bilateral Throughout] Pulse Rate [ From Monitor] Respiratory 27 H Rate Respiratory Rate [Anterior Bilateral Throughout] Blood Pressure 150/102 137/85 O2 Sat by Pulse 95 91 Oximetry O2 Sat by Pulse Oximetry [ Anterior Bilateral Throughout] 03/25/17 03/25/17 03/25/17 10:45 11:00 11:15 Temperature Pulse Rate 117 H 115 H 110 H Pulse Rate [ Anterior Bilateral Throughout] Pulse Rate [ From Monitor] Respiratory 24 Rate Respiratory Rate [Anterior Bilateral Throughout] Blood Pressure 138/95 148/100 140/97 O2 Sat by Pulse 96 Oximetry O2 Sat by Pulse Oximetry [ Anterior Bilateral Throughout] 03/25/17 03/25/17 03/25/17 11:30 11:45 12:00 Temperature 98.6 F Pulse Rate 114 H 110 H 110 H Pulse Rate [ Anterior Bilateral Throughout] Pulse Rate [ From Monitor] Respiratory 22 25 H Rate Respiratory Rate [Anterior Bilateral Throughout] Blood Pressure 141/95 138/101 136/98 O2 Sat by Pulse 96 97 Oximetry O2 Sat by Pulse Oximetry [ Anterior Bilateral Throughout] 03/25/17 03/25/17 03/25/17 12:08 12:15 12:30 Temperature Pulse Rate 108 H 100 H 109 H Pulse Rate [ Anterior Bilateral Throughout] Pulse Rate [ From Monitor] Respiratory 24 Rate Respiratory Rate [Anterior Bilateral Throughout] Blood Pressure 136/98 139/95 135/89 O2 Sat by Pulse 96 95 Oximetry O2 Sat by Pulse Oximetry [ Anterior Bilateral Throughout] 03/25/17 03/25/17 03/25/17 12:45 13:00 13:01 Temperature Pulse Rate 120 H 112 H 113 H Pulse Rate [ Anterior Bilateral Throughout] Pulse Rate [ From Monitor] Respiratory 27 H Rate Respiratory Rate [Anterior Bilateral Throughout] Blood Pressure 142/84 133/87 133/87 O2 Sat by Pulse 96 Oximetry O2 Sat by Pulse Oximetry [ Anterior Bilateral Throughout] 03/25/17 03/25/17 03/25/17 13:30 13:51 13:52 Temperature Pulse Rate 108 H 109 H 120 H Pulse Rate [ Anterior Bilateral Throughout] Pulse Rate [ From Monitor] Respiratory 20 Rate Respiratory Rate [Anterior Bilateral Throughout] Blood Pressure 137/94 138/98 138/98 O2 Sat by Pulse 97 Oximetry O2 Sat by Pulse Oximetry [ Anterior Bilateral Throughout] - Lab 03/24/17 03:15 03/25/17 05:35 Most recent lab results Calcium 8.3 mg/dL (8.4-10.2) L 03/25/17 05:35 Phosphorus 4.60 mg/dL (2.5-4.5) H 03/06/17 04:50 Magnesium 1.60 mg/dL (1.7-2.3) L 03/19/17 06:55
[2017-03-25] MEDS: HEPARIN IV PRN (16:03)
[2017-03-26] MEDS: NOVOLOG SUB-Q SCH ×5 (00:17→23:29)
[2017-03-26] MEDS: CARDIZEM PO SCH ×6 (02:24→23:34)
[2017-03-26 04:39] LABS: ISTAT Base Excess -3; ISTAT HCO3 22.1; ISTAT PCO2 35.7 (35-45); ISTAT PO2 81 (80-105); ISTAT SO2 96; ISTAT TCO2 23
[2017-03-26 05:26] LABS: Hematocrit 33.2 % (35.5-45.6); Mean Corpuscular HGB Conc 33 % (32-34); Mean Corpuscular Hemoglobin 31 pg (28-32); Mean Corpuscular Volume 95 fl (84-94); Platelet Count 121 K/mm3 (140-440); Red Blood Count 3.52 M/mm3 (3.65-5.03); Red Cell Distribution Width 14.9 % (13.2-15.2)
[2017-03-26 05:31] LABS: White Blood Count 21.1 K/mm3 (4.5-11.0)
[2017-03-26 05:46] LABS: BUN/Creatinine Ratio 14.25; Calcium 8.1 mg/dL (8.4-10.2); Chloride 92.9 mmol/L (98-107); Potassium 4.6 mmol/L (3.6-5.0)
[2017-03-26] MEDS: APRESOLINE IV PRN ×2 (06:46→16:20)
[2017-03-26] MEDS: ZOSYN/NS 2.25 GM/50ML 2.25 GM/50 ML BAG IV SCH ×3 (06:48→21:45)
[2017-03-26] MEDS: DUONEB *Not for PRN Use IH SCH ×3 (08:08→19:40)
[2017-03-26] MEDS: HEPARIN/ 0.45% NACL-25,000 UNIT/500 ML 25,000 UNIT/500 ML BAG IV SCH (08:33)
--- NOTE | 2017-03-26 08:49 | Progress Note ---
Assessment and Plan Assessment and plan: Atrial fibrillation with rapid ventricular response.Now on cardizem and metoprolol by feeding tube. Heparin resumed since hematuria resolved. Acute respiratory failure. He is still intubated on ventilator. Pulmonology following Acute metabolic encephalopathy,improving,awake,alert,follows commands today. Gross hematuria 4 days ago, now resolved. Dr. Samuel, Urologist evaluated him. patient has history of non-obstructing stones both kidneys. Acute kidney injury. Creatinine 7.2 today . Started on dialysis Hypernatremia. now resolved. DVT left lower ext. Heparin drip Full CODE STATUS History Interval history: Now awake, No Fever for 2 days now Still intubated Hospitalist Physical - Physical exam Narrative exam: Gen: appearance : Intubated, , obese HEENT: normocephalic atraumatic Neck :no JVD Lungs: clear to auscultation bilaterally, no crackles ,or wheezes Heart:S1 and S2 regular, no murmurs no gallop Abdomen soft, non-tender, non-distended, normal bowel sounds Extremities: no edema, no clubbing, or cyanosis Neuro : Intubated,Awake, follows commands, moves all ext - Constitutional Vitals: Temp Pulse Resp BP Pulse Ox 99.2 F 118 H 26 H 158/117 93 03/26/17 08:00 03/26/17 08:09 03/26/17 08:09 03/26/17 08:00 03/26/17 08:00 General appearance: Present: mild distress, well-nourished, other Results - Labs CBC & Chem 7: 03/26/17 04:15 03/26/17 04:15 Labs: Laboratory Last Values WBC 21.1 K/mm3 (4.5-11.0) H 03/26/17 04:15 RBC 3.52 M/mm3 (3.65-5.03) L 03/26/17 04:15 Hgb 11.0 gm/dl (11.8-15.2) L 03/26/17 04:15 Hct 33.2 % (35.5-45.6) L 03/26/17 04:15 MCV 95 fl (84-94) H 03/26/17 04:15 MCH 31 pg (28-32) 03/26/17 04:15 MCHC 33 % (32-34) 03/26/17 04:15 RDW 14.9 % (13.2-15.2) 03/26/17 04:15 Plt Count 121 K/mm3 (140-440) L 03/26/17 04:15 Lymph % (Auto) 8.4 % (13.4-35.0) L 03/17/17 07:06 [place] % (Auto) 8.1 % (0.0-7.3) H 03/17/17 07:06 Eos % (Auto) 1.0 % (0.0-4.3) 03/17/17 07:06 Baso % (Auto) 0.7 % (0.0-1.8) 03/17/17 07:06 Lymph # 1.4 K/mm3 (1.2-5.4) 03/17/17 07:06 [place] # 1.3 K/mm3 (0.0-0.8) H 03/17/17 07:06 Eos # 0.2 K/mm3 (0.0-0.4) 03/17/17 07:06 Baso # 0.1 K/mm3 (0.0-0.1) 03/17/17 07:06 Add Manual Diff Complete 03/22/17 07:00 Total Counted 100 03/22/17 07:00 Seg Neutrophils % 81.8 % (40.0-70.0) H 03/17/17 07:06 Seg Neuts % (Manual) 94.0 % (40.0-70.0) H 03/22/17 07:00 Band Neutrophils % 1.0 % 03/22/17 07:00 Lymphocytes % (Manual) 0 % (13.4-35.0) L 03/22/17 07:00 Reactive Lymphs % (Man) 1.0 % 03/22/17 07:00 Monocytes % (Manual) 1.0 % (0.0-7.3) 03/22/17 07:00 Eosinophils % (Manual) 3.0 % (0.0-4.3) 03/22/17 07:00 Basophils % (Manual) 0 % (0.0-1.8) 03/22/17 07:00 Metamyelocytes % 0 % 03/22/17 07:00 Myelocytes % 0 % 03/22/17 07:00 Promyelocytes % 0 % 03/22/17 07:00 Blast Cells % 0 % 03/22/17 07:00 Nucleated RBC % Not Reportable 03/22/17 07:00 Seg Neutrophils # 13.6 K/mm3 (1.8-7.7) H 03/17/17 07:06 Seg Neutrophils # Man 23.3 K/mm3 (1.8-7.7) H 03/22/17 07:00 Band Neutrophils # 0.2 K/mm3 03/22/17 07:00 Lymphocytes # (Manual) 0.0 K/mm3 (1.2-5.4) L 03/22/17 07:00 Abs React Lymphs (Man) 0.2 K/mm3 03/22/17 07:00 Monocytes # (Manual) 0.2 K/mm3 (0.0-0.8) 03/22/17 07:00 Eosinophils # (Manual) 0.7 K/mm3 (0.0-0.4) H 03/22/17 07:00 Basophils # (Manual) 0.0 K/mm3 (0.0-0.1) 03/22/17 07:00 Metamyelocytes # 0.0 K/mm3 03/22/17 07:00 Myelocytes # 0.0 K/mm3 03/22/17 07:00 Promyelocytes # 0.0 K/mm3 03/22/17 07:00 Blast Cells # 0.0 K/mm3 03/22/17 07:00 WBC Morphology Not Reportable 03/22/17 07:00 Hypersegmented Neuts Not Reportable 03/22/17 07:00 Hyposegmented Neuts Not Reportable 03/22/17 07:00 Hypogranular Neuts Not Reportable 03/22/17 07:00 Smudge Cells Not Reportable 03/22/17 07:00 Toxic Granulation Not Reportable 03/22/17 07:00 Toxic Vacuolation Not Reportable 03/22/17 07:00 Dohle Bodies Not Reportable 03/22/17 07:00 Pelger-Huet Anomaly Not Reportable 03/22/17 07:00 Marco Rods Not Reportable 03/22/17 07:00 Platelet Estimate Cons 03/22/17 07:00 Clumped Platelets Not Reportable 03/22/17 07:00 Plt Clumps, EDTA Not Reportable 03/22/17 07:00 Large Platelets Not Reportable 03/22/17 07:00 Giant Platelets Not Reportable 03/22/17 07:00 Platelet Satelliting Not Reportable 03/22/17 07:00 Plt Morphology Comment Not Reportable 03/22/17 07:00 RBC Morphology Not Reportable 03/22/17 07:00 Dimorphic RBCs Not Reportable 03/22/17 07:00 Polychromasia Not Reportable 03/22/17 07:00 Hypochromasia Not Reportable 03/22/17 07:00 Poikilocytosis 2+ 03/22/17 07:00 Anisocytosis 1+ 03/22/17 07:00 Microcytosis Not Reportable 03/22/17 07:00 Macrocytosis Not Reportable 03/22/17 07:00 Spherocytes Not Reportable 03/22/17 07:00 Pappenheimer Bodies Not Reportable 03/22/17 07:00 Sickle Cells Not Reportable 03/22/17 07:00 Target Cells Not Reportable 03/22/17 07:00 Tear Drop Cells 2+ 03/22/17 07:00 Ovalocytes Not Reportable 03/22/17 07:00 Stomatocytes Few 03/05/17 07:03 Helmet Cells Not Reportable 03/22/17 07:00 [place] Bodies Not Reportable 03/22/17 07:00 [place] Rings Not Reportable 03/22/17 07:00 Dave Cells Not Reportable 03/22/17 07:00 Bite Cells Not Reportable 03/22/17 07:00 Crenated Cell Not Reportable 03/22/17 07:00 Elliptocytes Not Reportable 03/22/17 07:00 Acanthocytes (Spur) Not Reportable 03/22/17 07:00 Rouleaux Not Reportable 03/22/17 07:00 Hemoglobin C Crystals Not Reportable 03/22/17 07:00 Schistocytes Not Reportable 03/22/17 07:00 Malaria parasites Not Reportable 03/22/17 07:00 Nishant Bodies Not Reportable 03/22/17 07:00 Hem Pathologist Commnt No 03/22/17 07:00 PT 16.2 Sec. (12.2-14.9) H 03/22/17 08:40 INR 1.31 (0.87-1.13) H 03/22/17 08:40 APTT 68.9 Sec. (24.2-36.6) H* 03/22/17 08:40 Heparin Anti-Xa Level 0.38 U.I./ml (0.3-0.7) 03/26/17 03:37 POC ABG pH 7.400 (7.35-7.45) 03/26/17 04:14 POC ABG pCO2 35.7 (35-45) 03/26/17 04:14 POC ABG pO2 81 (80-105) 03/26/17 04:14 POC ABG HCO3 22.1 03/26/17 04:14 POC ABG Total CO2 23 03/26/17 04:14 POC ABG O2 Sat 96 03/26/17 04:14 POC ABG Base Excess -3 03/26/17 04:14 FiO2 35 % 03/26/17 04:14 Sodium 133 mmol/L (137-145) L 03/26/17 04:15 Potassium 4.6 mmol/L (3.6-5.0) 03/26/17 04:15 Chloride 92.9 mmol/L (98-107) L 03/26/17 04:15 Carbon Dioxide 21 mmol/L (22-30) L 03/26/17 04:15 Anion Gap 24 mmol/L 03/26/17 04:15 BUN 77 mg/dL (9-20) H 03/26/17 04:15 Creatinine 5.4 mg/dL (0.8-1.5) H 03/26/17 04:15 Estimated GFR 11 ml/min 03/26/17 04:15 BUN/Creatinine Ratio 14.25 % 03/26/17 04:15 Glucose 115 mg/dL (75-100) H 03/26/17 04:15 POC Glucose 127 (70-105) H 03/26/17 04:49 Osmolality 324 Mosm/kg 03/21/17 21:55 Lactic Acid 1.50 mmol/L (0.7-2.0) 03/16/17 13:37 Uric Acid 7.3 mg/dL (3.5-7.6) 03/21/17 22:03 Calcium 8.1 mg/dL (8.4-10.2) L 03/26/17 04:15 Phosphorus 4.60 mg/dL (2.5-4.5) H 03/06/17 04:50 Magnesium 1.60 mg/dL (1.7-2.3) L 03/19/17 06:55 Total Bilirubin 0.70 mg/dL (0.1-1.2) 03/22/17 04:30 AST 38 units/L (5-40) 03/22/17 04:30 ALT 21 units/L (7-56) 03/22/17 04:30 Alkaline Phosphatase 102 units/L (35-129) 03/22/17 04:30 Total Creatine Kinase 148 units/L (55-170) 02/27/17 13:08 CK-MB (CK-2) 4.7 ng/mL (0.0-4.0) H 02/27/17 13:08 CK-MB (CK-2) Rel Index 3.1 (0-4) 02/27/17 13:08 Troponin T < 0.010 ng/mL (0.00-0.029) 02/27/17 13:08 Total Protein 6.3 g/dL (6.3-8.2) 03/22/17 04:30 Albumin 1.8 g/dL (3.9-5) L 03/22/17 04:30 Albumin/Globulin Ratio 0.4 % 03/22/17 04:30 Triglycerides 111 mg/dL (2-149) 03/22/17 04:30 TSH 1.480 mlU/mL (0.270-4.200) 02/26/17 23:40 Free T4 1.16 ng/dL (0.76-1.46) 02/26/17 23:40 Urine Color Yellow (Yellow) 03/03/17 10:38 Urine Turbidity Clear (Clear) 03/03/17 10:38 Urine pH 5.0 (5.0-7.0) 03/03/17 10:38 Ur Specific Humphrey 1.012 (1.003-1.030) 03/03/17 10:38 Urine Protein <15 mg/dl mg/dL (Negative) 03/03/17 10:38 Urine Glucose (UA) Neg mg/dL (Negative) 03/03/17 10:38 Urine Ketones Neg mg/dL (Negative) 03/03/17 10:38 Urine Blood Lg (Negative) 03/03/17 10:38 Urine Nitrite Neg (Negative) 03/03/17 10:38 Urine Bilirubin Neg (Negative) 03/03/17 10:38 Urine Urobilinogen < 2.0 mg/dL (<2.0) 03/03/17 10:38 Ur Leukocyte Esterase Tr (Negative) 03/03/17 10:38 Urine WBC (Auto) 5.0 /HPF (0.0-6.0) 03/03/17 10:38 Urine RBC (Auto) 51.0 /HPF (0.0-6.0) 03/03/17 10:38 Urine Mucus Few /HPF 03/03/17 10:38 Random Vancomycin 24.1 ug/mL (0-40.0) 03/23/17 09:34 Plasma/Serum Alcohol 0.24 gm% (0-0.07) H 02/26/17 23:40 Hepatitis A IgM Ab Non-reactive (NonReactive) 03/23/17 17:20 Hep Bs Antigen Non-reactive (Negative) 03/23/17 17:20 Hep B Core IgM Ab Non-reactive (NonReactive) 03/23/17 17:20 Hepatitis C Antibody Non-reactive (NonReactive) 03/23/17 17:20
[2017-03-26] MEDS: ATIVAN IV PRN ×2 (09:09→19:28)
[2017-03-26] MEDS: LOPRESSOR PO SCH ×5 (09:12→23:35)
[2017-03-26] MEDS: VITAMIN B-1 PO SCH (09:13)
[2017-03-26] MEDS: FOLVITE PO SCH (09:13)
[2017-03-26] MEDS: PROTONIX PO SCH (09:13)
--- NOTE | 2017-03-26 09:29 | XRay Report ---
AP CHEST :03/26/17 CLINICAL: Intubated.Follow up respiratory failure. COMPARISON:The previous day. FINDINGS: The endotracheal tube is in satisfactory position. The feeding tube is satisfactory. Right Central venous catheter and PICC line are in the SVC. Continued mild diffuse opacification of the right hemithorax but resolution of subsegmental atelectasis in the right base. The left lung is relatively clear. Normal heart size. Central vascular congestion and related distribution of pulmonary blood flow to the upper lobes. No pneumothorax. IMPRESSION: Slight improvement with resolution of right basal subsegmental atelectasis.
--- NOTE | 2017-03-26 11:45 | Progress Note ---
Assessment and Plan Acute kidney injury in a patien who is currently dialysis dependent for solute and volume clearance Patient's urine output is approximately 940 mL,Will need to monitor on a daily basis He is probably showing some signs of improvement in renal function Continue to provide dialysis and reassess on a daily basis Patient was dialyzed yesterday current creatinine is 5.4 potassium 4.6 hemoglobin 11.0 No acute or emergent indication for renal replacement therapy today Patient does need daily labs Likely etiology of renal failure appears to be acute tubular necrosis We'll continue to follow and make recommendations from renal standpoint Avoid any nephrotoxic medications maintain MAP over 65 oxygenation Subjective Principal diagnosis: afib Interval history: Patient was seen today for follow-up and multiple renal related issues Events of 24 hours vitals labs intake output medications were reviewed patient was initiated on renal replacement therapy due to acute kidney injury Patient currently remains on ventilator Urine output is somewhat better Objective Vitals reviewed Intake output reviewed HEENT: Orally intubated no secretions in the ET tube Neck: Supple Chest: Few basilar crackles Heart: Regular rate and rhythm Abdomen morbidly obese distended nontender bowel sounds present Extremities 1+ edema no peripheral cyanosis Objective - Vital Signs Vital signs: Vital Signs - 12hr 03/25/17 03/26/17 03/26/17 23:52 00:00 00:30 Temperature 99.4 F Pulse Rate 104 H 98 H 93 H Pulse Rate [ Anterior Bilateral Throughout] Respiratory 26 H 25 H Rate Respiratory Rate [Anterior Bilateral Throughout] Respiratory Rate [Right Wrist] Blood Pressure 156/108 148/107 155/108 O2 Sat by Pulse 97 98 97 Oximetry 03/26/17 03/26/17 03/26/17 01:00 01:30 02:00 Temperature Pulse Rate 98 H 99 H 103 H Pulse Rate [ Anterior Bilateral Throughout] Respiratory 24 24 19 Rate Respiratory Rate [Anterior Bilateral Throughout] Respiratory Rate [Right Wrist] Blood Pressure 155/101 138/112 154/111 O2 Sat by Pulse 99 98 98 Oximetry 03/26/17 03/26/17 03/26/17 02:24 02:30 03:00 Temperature Pulse Rate 98 H 93 H 101 H Pulse Rate [ Anterior Bilateral Throughout] Respiratory 17 24 Rate Respiratory Rate [Anterior Bilateral Throughout] Respiratory Rate [Right Wrist] Blood Pressure 151/107 150/108 154/108 O2 Sat by Pulse 99 98 Oximetry 03/26/17 03/26/17 03/26/17 03:30 04:00 04:14 Temperature 98.9 F Pulse Rate 97 H 91 H 106 H Pulse Rate [ Anterior Bilateral Throughout] Respiratory 25 H 25 H Rate Respiratory Rate [Anterior Bilateral Throughout] Respiratory Rate [Right Wrist] Blood Pressure 156/99 160/105 150/107 O2 Sat by Pulse 99 99 99 Oximetry 03/26/17 03/26/17 03/26/17 04:15 04:30 04:41 Temperature Pulse Rate 88 102 H 87 Pulse Rate [ Anterior Bilateral Throughout] Respiratory 26 H Rate Respiratory Rate [Anterior Bilateral Throughout] Respiratory Rate [Right Wrist] Blood Pressure 156/101 156/100 O2 Sat by Pulse 98 98 Oximetry 03/26/17 03/26/17 03/26/17 05:00 05:30 06:00 Temperature Pulse Rate 88 93 H 97 H Pulse Rate [ Anterior Bilateral Throughout] Respiratory 24 24 25 H Rate Respiratory Rate [Anterior Bilateral Throughout] Respiratory Rate [Right Wrist] Blood Pressure 143/107 156/104 155/109 O2 Sat by Pulse 97 98 99 Oximetry 03/26/17 03/26/17 03/26/17 06:30 06:46 07:00 Temperature Pulse Rate 94 H 97 H 103 H Pulse Rate [ Anterior Bilateral Throughout] Respiratory 24 28 H Rate Respiratory Rate [Anterior Bilateral Throughout] Respiratory Rate [Right Wrist] Blood Pressure 156/105 156/105 155/99 O2 Sat by Pulse 96 95 Oximetry 03/26/17 03/26/17 03/26/17 07:30 07:48 08:00 Temperature 99.2 F Pulse Rate 103 H 124 H 126 H Pulse Rate [ Anterior Bilateral Throughout] Respiratory 28 H 31 H Rate Respiratory Rate [Anterior Bilateral Throughout] Respiratory Rate [Right Wrist] Blood Pressure 165/101 165/101 158/117 O2 Sat by Pulse 94 99 94 Oximetry 03/26/17 03/26/17 03/26/17 08:09 08:18 08:30 Temperature Pulse Rate 128 H Pulse Rate [ 118 H 116 H Anterior Bilateral Throughout] Respiratory 28 H Rate Respiratory 26 H 24 Rate [Anterior Bilateral Throughout] Respiratory Rate [Right Wrist] Blood Pressure 158/108 O2 Sat by Pulse 96 Oximetry 03/26/17 03/26/17 03/26/17 09:00 09:12 09:31 Temperature Pulse Rate 130 H 111 H 118 H Pulse Rate [ Anterior Bilateral Throughout] Respiratory 20 22 Rate Respiratory Rate [Anterior Bilateral Throughout] Respiratory Rate [Right Wrist] Blood Pressure 151/115 151/115 161/104 O2 Sat by Pulse 91 94 Oximetry 03/26/17 03/26/17 03/26/17 10:00 10:30 11:42 Temperature Pulse Rate 109 H 97 H 97 H Pulse Rate [ Anterior Bilateral Throughout] Respiratory 26 H 24 Rate Respiratory Rate [Anterior Bilateral Throughout] Respiratory 24 Rate [Right Wrist] Blood Pressure 157/102 148/100 148/100 O2 Sat by Pulse 94 96 96 Oximetry - Lab 03/27/17 08:11 03/27/17 04:00 Most recent lab results Calcium 8.1 mg/dL (8.4-10.2) L 03/26/17 04:15 Phosphorus 4.60 mg/dL (2.5-4.5) H 03/06/17 04:50 Magnesium 1.60 mg/dL (1.7-2.3) L 03/19/17 06:55
--- NOTE | 2017-03-26 15:51 | Progress Note ---
Assessment and Plan 51 y/o male, noncompliant, with systolic heart failure, admitted with afib with RVR, and possible ETOH abuse, now with recurrent afib with RVR and likely aspiration pneumonia on the right resulting in acute respiratory failure. 1. Dropped PEEP to 5 today. ABG good. CXR improving 2. Follow up speciation on GNR, still not back yet Listed as GNR #3? Not sure what that means. Now with Stap in sputum, Vanc Redosed, follow up with pharmacy on levels. 3. Appreciated Urology. [place] stopped. 4. PRN sedation only, will attempt to keep Propofol off. SBT tomorrow given just dropping PEEP to 5 5. Rate control per cards, heparin back on. Last note states not a good candidate for systemic anticoagulation. I assume they mean as an outpatient as patient is on heparin currently. Cards means that he will not go home with anticoagulation 6. Na now dropping, follow up renal recs. Can be adjusted with HD 7. HD per renal 8. Overall prognosis remains guarded. 9. Continue PRN Ativan so that we can start weaning Propofol CCT 31 minutes. Subjective Date of service: 03/26/17 Principal diagnosis: afib Interval history: No acute events. overnight. Patient off sedation. Awake, tracks. I could not get him to squeeze my hand but per nurse, will squeeze hers. Does not move feet when asked too. BP elevated. HR is better, still in Afib Objective Vital Signs - 12hr 03/26/17 03/26/17 03/26/17 04:00 04:14 04:15 Temperature 98.9 F Pulse Rate 91 H 106 H 88 Pulse Rate [ Anterior Bilateral Throughout] Respiratory 25 H Rate Respiratory Rate [Anterior Bilateral Throughout] Respiratory Rate [Right Wrist] Blood Pressure 160/105 150/107 O2 Sat by Pulse 99 99 98 Oximetry 03/26/17 03/26/17 03/26/17 04:30 04:41 05:00 Temperature Pulse Rate 102 H 87 88 Pulse Rate [ Anterior Bilateral Throughout] Respiratory 26 H 24 Rate Respiratory Rate [Anterior Bilateral Throughout] Respiratory Rate [Right Wrist] Blood Pressure 156/101 156/100 143/107 O2 Sat by Pulse 98 97 Oximetry 03/26/17 03/26/17 03/26/17 05:30 06:00 06:30 Temperature Pulse Rate 93 H 97 H 94 H Pulse Rate [ Anterior Bilateral Throughout] Respiratory 24 25 H 24 Rate Respiratory Rate [Anterior Bilateral Throughout] Respiratory Rate [Right Wrist] Blood Pressure 156/104 155/109 156/105 O2 Sat by Pulse 98 99 96 Oximetry 03/26/17 03/26/17 03/26/17 06:46 07:00 07:30 Temperature Pulse Rate 97 H 103 H 103 H Pulse Rate [ Anterior Bilateral Throughout] Respiratory 28 H 28 H Rate Respiratory Rate [Anterior Bilateral Throughout] Respiratory Rate [Right Wrist] Blood Pressure 156/105 155/99 165/101 O2 Sat by Pulse 95 94 Oximetry 03/26/17 03/26/17 03/26/17 07:48 08:00 08:09 Temperature 99.2 F Pulse Rate 124 H 126 H Pulse Rate [ 118 H Anterior Bilateral Throughout] Respiratory 31 H Rate Respiratory 26 H Rate [Anterior Bilateral Throughout] Respiratory Rate [Right Wrist] Blood Pressure 165/101 158/117 O2 Sat by Pulse 99 94 Oximetry 03/26/17 03/26/17 03/26/17 08:18 08:30 09:00 Temperature Pulse Rate 128 H 130 H Pulse Rate [ 116 H Anterior Bilateral Throughout] Respiratory 28 H 20 Rate Respiratory 24 Rate [Anterior Bilateral Throughout] Respiratory Rate [Right Wrist] Blood Pressure 158/108 151/115 O2 Sat by Pulse 96 91 Oximetry 03/26/17 03/26/17 03/26/17 09:12 09:31 10:00 Temperature Pulse Rate 111 H 118 H 109 H Pulse Rate [ Anterior Bilateral Throughout] Respiratory 22 26 H Rate Respiratory Rate [Anterior Bilateral Throughout] Respiratory 24 Rate [Right Wrist] Blood Pressure 151/115 161/104 157/102 O2 Sat by Pulse 94 94 Oximetry 03/26/17 03/26/17 03/26/17 10:30 11:00 11:30 Temperature Pulse Rate 97 H 103 H 107 H Pulse Rate [ Anterior Bilateral Throughout] Respiratory 24 24 22 Rate Respiratory Rate [Anterior Bilateral Throughout] Respiratory Rate [Right Wrist] Blood Pressure 148/100 145/95 153/128 O2 Sat by Pulse 96 97 97 Oximetry 03/26/17 03/26/17 03/26/17 11:42 12:00 12:24 Temperature 98.9 F Pulse Rate 97 H 103 H 105 H Pulse Rate [ Anterior Bilateral Throughout] Respiratory 24 Rate Respiratory Rate [Anterior Bilateral Throughout] Respiratory Rate [Right Wrist] Blood Pressure 148/100 151/109 151/109 O2 Sat by Pulse 96 97 Oximetry 03/26/17 03/26/17 03/26/17 12:30 13:00 13:23 Temperature Pulse Rate 111 H 104 H Pulse Rate [ 103 H Anterior Bilateral Throughout] Respiratory 24 26 H Rate Respiratory 24 Rate [Anterior Bilateral Throughout] Respiratory Rate [Right Wrist] Blood Pressure 161/110 156/105 O2 Sat by Pulse 96 95 Oximetry 03/26/17 03/26/17 03/26/17 13:30 13:43 14:00 Temperature Pulse Rate 101 H 99 H Pulse Rate [ 106 H Anterior Bilateral Throughout] Respiratory 22 24 Rate Respiratory 24 Rate [Anterior Bilateral Throughout] Respiratory Rate [Right Wrist] Blood Pressure 128/95 133/103 O2 Sat by Pulse 96 Oximetry 03/26/17 03/26/17 03/26/17 14:30 14:51 15:00 Temperature Pulse Rate 100 H 112 H 106 H Pulse Rate [ Anterior Bilateral Throughout] Respiratory 24 24 Rate Respiratory Rate [Anterior Bilateral Throughout] Respiratory Rate [Right Wrist] Blood Pressure 130/103 130/103 140/102 O2 Sat by Pulse 96 97 Oximetry Constitutional: other (orally intubated, critically ill on vent) Eyes: non-icteric ENT: oropharynx moist Neck: supple Effort: mildly labored Ascultation: Right: rales (mostly on the right), rhonchi, Bilateral: clear, diminished breath sounds Cardiovascular: irregular rhythm (ir/ir; no mrg; tachy) Gastrointestinal: normoactive bowel sounds, soft, non-tender, non-distended, other (obese) Integumentary: normal Extremities: no cyanosis, no edema, pink and warm Neurologic: non-focal exam, pupils equal and round, other (opens eyes) Psychiatric: mood appropriate, affect normal CBC and BMP: 03/26/17 04:15 03/26/17 04:15 ABG, PT/INR, D-dimer: ABG POC ABG pH 7.400 (7.35-7.45) 03/26/17 04:14 POC ABG pCO2 35.7 (35-45) 03/26/17 04:14 POC ABG pO2 81 (80-105) 03/26/17 04:14 POC ABG HCO3 22.1 03/26/17 04:14 POC ABG Total CO2 23 03/26/17 04:14 POC ABG O2 Sat 96 03/26/17 04:14 PT/INR, D-dimer PT 16.2 Sec. (12.2-14.9) H 03/22/17 08:40 INR 1.31 (0.87-1.13) H 03/22/17 08:40 Abnormal lab findings: Abnormal Labs 02/27/17 02/27/17 02/27/17 03:51 05:41 08:49 WBC RBC Hgb Hct MCV MCH MCHC RDW Plt Count Lymph % (Auto) [place] % (Auto) [place] # Seg Neutrophils % Seg Neuts % (Manual) Lymphocytes % (Manual) Monocytes % (Manual) Seg Neutrophils # Seg Neutrophils # Man Lymphocytes # (Manual) Monocytes # (Manual) Eosinophils # (Manual) PT INR APTT Heparin Anti-Xa Level POC ABG pH POC ABG pCO2 POC ABG pO2 Sodium Potassium Chloride Carbon Dioxide BUN Creatinine Glucose POC Glucose 131 H 139 H Calcium Phosphorus Magnesium Total Bilirubin AST Total Creatine Kinase 171 H CK-MB (CK-2) 5.8 H Total Protein Albumin 02/27/17 02/27/17 02/27/17 13:05 13:08 16:07 WBC RBC Hgb Hct MCV MCH MCHC RDW Plt Count Lymph % (Auto) [place] % (Auto) [place] # Seg Neutrophils % Seg Neuts % (Manual) Lymphocytes % (Manual) Monocytes % (Manual) Seg Neutrophils # Seg Neutrophils # Man Lymphocytes # (Manual) Monocytes # (Manual) Eosinophils # (Manual) PT INR APTT Heparin Anti-Xa Level POC ABG pH POC ABG pCO2 POC ABG pO2 Sodium Potassium Chloride Carbon Dioxide BUN Creatinine Glucose POC Glucose 146 H 138 H Calcium Phosphorus Magnesium Total Bilirubin AST Total Creatine Kinase CK-MB (CK-2) 4.7 H Total Protein Albumin 02/27/17 02/28/17 02/28/17 21:40 03:32 03:32 WBC RBC Hgb 15.9 H Hct 47.6 H MCV 100 H MCH 34 H MCHC RDW 15.4 H Plt Count Lymph % (Auto) [place] % (Auto) [place] # Seg Neutrophils % Seg Neuts % (Manual) Lymphocytes % (Manual) Monocytes % (Manual) Seg Neutrophils # Seg Neutrophils # Man Lymphocytes # (Manual) Monocytes # (Manual) Eosinophils # (Manual) PT INR APTT Heparin Anti-Xa Level POC ABG pH POC ABG pCO2 POC ABG pO2 Sodium Potassium Chloride 95.0 L Carbon Dioxide BUN 8 L Creatinine 0.6 L Glucose 126 H POC Glucose 140 H Calcium Phosphorus Magnesium 1.60 L Total Bilirubin AST Total Creatine Kinase CK-MB (CK-2) Total Protein Albumin 02/28/17 02/28/17 02/28/17 07:55 11:57 15:40 WBC RBC Hgb Hct MCV MCH MCHC RDW Plt Count Lymph % (Auto) [place] % (Auto) [place] # Seg Neutrophils % Seg Neuts % (Manual) Lymphocytes % (Manual) Monocytes % (Manual) Seg Neutrophils # Seg Neutrophils # Man Lymphocytes # (Manual) Monocytes # (Manual) Eosinophils # (Manual) PT INR APTT Heparin Anti-Xa Level POC ABG pH POC ABG pCO2 POC ABG pO2 Sodium Potassium Chloride Carbon Dioxide BUN Creatinine Glucose POC Glucose 134 H 174 H 158 H Calcium Phosphorus Magnesium Total Bilirubin AST Total Creatine Kinase CK-MB (CK-2) Total Protein Albumin 02/28/17 03/01/17 03/01/17 21:51 07:42 10:41 WBC RBC Hgb Hct MCV MCH MCHC RDW Plt Count Lymph % (Auto) [place] % (Auto) [place] # Seg Neutrophils % Seg Neuts % (Manual) Lymphocytes % (Manual) Monocytes % (Manual) Seg Neutrophils # Seg Neutrophils # Man Lymphocytes # (Manual) Monocytes # (Manual) Eosinophils # (Manual) PT INR APTT Heparin Anti-Xa Level POC ABG pH POC ABG pCO2 POC ABG pO2 Sodium Potassium Chloride Carbon Dioxide BUN Creatinine Glucose POC Glucose 127 H 146 H 176 H Calcium Phosphorus Magnesium Total Bilirubin AST Total Creatine Kinase CK-MB (CK-2) Total Protein Albumin 03/01/17 03/01/17 03/02/17 15:37 23:35 08:11 WBC RBC Hgb Hct MCV MCH MCHC RDW Plt Count Lymph % (Auto) [place] % (Auto) [place] # Seg Neutrophils % Seg Neuts % (Manual) Lymphocytes % (Manual) Monocytes % (Manual) Seg Neutrophils # Seg Neutrophils # Man Lymphocytes # (Manual) Monocytes # (Manual) Eosinophils # (Manual) PT INR APTT Heparin Anti-Xa Level POC ABG pH POC ABG pCO2 POC ABG pO2 Sodium Potassium Chloride Carbon Dioxide BUN Creatinine Glucose POC Glucose 158 H 139 H 127 H Calcium Phosphorus Magnesium Total Bilirubin AST Total Creatine Kinase CK-MB (CK-2) Total Protein Albumin 03/02/17 03/02/17 03/02/17 09:12 12:03 12:37 WBC 17.9 H RBC Hgb 16.3 H Hct 49.3 H MCV 101 H MCH 33 H MCHC RDW Plt Count Lymph % (Auto) 10.6 L [place] % (Auto) 13.4 H [place] # 2.4 H Seg Neutrophils % 75.2 H Seg Neuts % (Manual) Lymphocytes % (Manual) Monocytes % (Manual) Seg Neutrophils # 13.5 H Seg Neutrophils # Man Lymphocytes # (Manual) Monocytes # (Manual) Eosinophils # (Manual) PT INR APTT Heparin Anti-Xa Level POC ABG pH POC ABG pCO2 POC ABG pO2 Sodium 135 L Potassium Chloride 90.3 L Carbon Dioxide 32 H BUN Creatinine 0.6 L Glucose 124 H POC Glucose 145 H Calcium Phosphorus Magnesium Total Bilirubin AST Total Creatine Kinase CK-MB (CK-2) Total Protein Albumin 03/02/17 03/02/17 03/03/17 16:09 22:41 03:59 WBC 14.7 H RBC Hgb Hct MCV 100 H MCH 33 H MCHC RDW Plt Count Lymph % (Auto) 10.9 L [place] % (Auto) 14.8 H [place] # 2.2 H Seg Neutrophils % 73.6 H Seg Neuts % (Manual) Lymphocytes % (Manual) Monocytes % (Manual) Seg Neutrophils # 10.8 H Seg Neutrophils # Man Lymphocytes # (Manual) Monocytes # (Manual) Eosinophils # (Manual) PT INR APTT Heparin Anti-Xa Level POC ABG pH POC ABG pCO2 POC ABG pO2 Sodium Potassium Chloride Carbon Dioxide BUN Creatinine Glucose POC Glucose 141 H 127 H Calcium Phosphorus Magnesium Total Bilirubin AST Total Creatine Kinase CK-MB (CK-2) Total Protein Albumin 03/03/17 03/03/17 03/03/17 04:07 09:19 11:33 WBC RBC Hgb Hct MCV MCH MCHC RDW Plt Count Lymph % (Auto) [place] % (Auto) [place] # Seg Neutrophils % Seg Neuts % (Manual) Lymphocytes % (Manual) Monocytes % (Manual) Seg Neutrophils # Seg Neutrophils # Man Lymphocytes # (Manual) Monocytes # (Manual) Eosinophils # (Manual) PT INR APTT Heparin Anti-Xa Level POC ABG pH POC ABG pCO2 POC ABG pO2 Sodium Potassium 3.1 L D Chloride 91.1 L Carbon Dioxide BUN Creatinine 0.7 L Glucose 136 H POC Glucose 123 H 153 H Calcium Phosphorus Magnesium Total Bilirubin AST Total Creatine Kinase CK-MB (CK-2) Total Protein Albumin 03/03/17 03/04/17 03/04/17 15:46 05:58 06:04 WBC 11.4 H RBC Hgb Hct 46.0 H MCV 101 H MCH 33 H MCHC RDW Plt Count Lymph % (Auto) [place] % (Auto) [place] # Seg Neutrophils % Seg Neuts % (Manual) 71.0 H Lymphocytes % (Manual) 13.0 L Monocytes % (Manual) 13.0 H Seg Neutrophils # Seg Neutrophils # Man 8.1 H Lymphocytes # (Manual) Monocytes # (Manual) 1.5 H Eosinophils # (Manual) PT INR APTT Heparin Anti-Xa Level POC ABG pH POC ABG pCO2 POC ABG pO2 Sodium Potassium 3.3 L Chloride 92.2 L Carbon Dioxide 33 H BUN Creatinine 0.6 L Glucose 133 H POC Glucose 131 H Calcium Phosphorus Magnesium Total Bilirubin AST Total Creatine Kinase CK-MB (CK-2) Total Protein Albumin 03/04/17 03/04/17 03/04/17 07:54 11:24 16:00 WBC RBC Hgb Hct MCV MCH MCHC RDW Plt Count Lymph % (Auto) [place] % (Auto) [place] # Seg Neutrophils % Seg Neuts % (Manual) Lymphocytes % (Manual) Monocytes % (Manual) Seg Neutrophils # Seg Neutrophils # Man Lymphocytes # (Manual) Monocytes # (Manual) Eosinophils # (Manual) PT INR APTT Heparin Anti-Xa Level POC ABG pH POC ABG pCO2 POC ABG pO2 Sodium Potassium Chloride Carbon Dioxide BUN Creatinine Glucose POC Glucose 131 H 134 H 116 H Calcium Phosphorus Magnesium Total Bilirubin AST Total Creatine Kinase CK-MB (CK-2) Total Protein Albumin 03/05/17 03/05/17 03/05/17 00:39 07:03 07:03 WBC 11.4 H RBC Hgb 15.4 H Hct 46.3 H MCV 100 H MCH 33 H MCHC RDW Plt Count Lymph % (Auto) [place] % (Auto) [place] # Seg Neutrophils % Seg Neuts % (Manual) Lymphocytes % (Manual) Monocytes % (Manual) 20.0 H Seg Neutrophils # Seg Neutrophils # Man Lymphocytes # (Manual) Monocytes # (Manual) 2.3 H Eosinophils # (Manual) PT INR APTT Heparin Anti-Xa Level POC ABG pH POC ABG pCO2 POC ABG pO2 Sodium Potassium 3.3 L Chloride 95.2 L Carbon Dioxide 31 H BUN Creatinine 0.6 L Glucose 137 H POC Glucose 116 H Calcium Phosphorus Magnesium Total Bilirubin AST Total Creatine Kinase CK-MB (CK-2) Total Protein Albumin 03/05/17 03/05/17 03/05/17 08:05 12:15 16:07 WBC RBC Hgb Hct MCV MCH MCHC RDW Plt Count Lymph % (Auto) [place] % (Auto) [place] # Seg Neutrophils % Seg Neuts % (Manual) Lymphocytes % (Manual) Monocytes % (Manual) Seg Neutrophils # Seg Neutrophils # Man Lymphocytes # (Manual) Monocytes # (Manual) Eosinophils # (Manual) PT INR APTT Heparin Anti-Xa Level POC ABG pH POC ABG pCO2 POC ABG pO2 Sodium Potassium Chloride Carbon Dioxide BUN Creatinine Glucose POC Glucose 134 H 150 H 113 H Calcium Phosphorus Magnesium Total Bilirubin AST Total Creatine Kinase CK-MB (CK-2) Total Protein Albumin 03/06/17 03/06/17 03/06/17 04:45 04:50 11:50 WBC 11.8 H RBC Hgb 15.7 H Hct 47.1 H MCV 98 H MCH 33 H MCHC RDW Plt Count Lymph % (Auto) [place] % (Auto) [place] # Seg Neutrophils % Seg Neuts % (Manual) Lymphocytes % (Manual) 13.0 L Monocytes % (Manual) 17.0 H Seg Neutrophils # Seg Neutrophils # Man Lymphocytes # (Manual) Monocytes # (Manual) 2.0 H Eosinophils # (Manual) PT INR APTT Heparin Anti-Xa Level POC ABG pH POC ABG pCO2 POC ABG pO2 Sodium Potassium 3.2 L Chloride 94.9 L Carbon Dioxide 31 H BUN Creatinine 0.6 L Glucose 125 H POC Glucose 124 H Calcium Phosphorus 4.60 H Magnesium Total Bilirubin AST Total Creatine Kinase CK-MB (CK-2) Total Protein Albumin 03/06/17 03/06/17 03/07/17 15:43 22:07 04:30 WBC RBC Hgb Hct MCV MCH MCHC RDW Plt Count Lymph % (Auto) [place] % (Auto) [place] # Seg Neutrophils % Seg Neuts % (Manual) Lymphocytes % (Manual) Monocytes % (Manual) Seg Neutrophils # Seg Neutrophils # Man Lymphocytes # (Manual) Monocytes # (Manual) Eosinophils # (Manual) PT INR APTT Heparin Anti-Xa Level POC ABG pH POC ABG pCO2 POC ABG pO2 Sodium Potassium 3.4 L Chloride 95.1 L Carbon Dioxide BUN Creatinine 0.6 L Glucose 129 H POC Glucose 121 H 109 H Calcium Phosphorus Magnesium Total Bilirubin AST Total Creatine Kinase CK-MB (CK-2) Total Protein Albumin 03/07/17 03/07/17 03/07/17 04:37 12:02 15:03 WBC 11.3 H RBC Hgb Hct MCV 99 H MCH 34 H MCHC RDW Plt Count Lymph % (Auto) [place] % (Auto) 14.6 H [place] # 1.6 H Seg Neutrophils % Seg Neuts % (Manual) Lymphocytes % (Manual) Monocytes % (Manual) Seg Neutrophils # Seg Neutrophils # Man Lymphocytes # (Manual) Monocytes # (Manual) Eosinophils # (Manual) PT INR APTT Heparin Anti-Xa Level POC ABG pH POC ABG pCO2 POC ABG pO2 Sodium Potassium Chloride Carbon Dioxide BUN Creatinine Glucose POC Glucose 126 H 108 H Calcium Phosphorus Magnesium Total Bilirubin AST Total Creatine Kinase CK-MB (CK-2) Total Protein Albumin 03/08/17 03/08/17 03/08/17 04:58 04:58 08:22 WBC RBC Hgb 16.4 H Hct 49.3 H MCV 99 H MCH 33 H MCHC RDW Plt Count Lymph % (Auto) [place] % (Auto) 12.1 H [place] # 1.2 H Seg Neutrophils % 71.4 H Seg Neuts % (Manual) Lymphocytes % (Manual) Monocytes % (Manual) Seg Neutrophils # Seg Neutrophils # Man Lymphocytes # (Manual) Monocytes # (Manual) Eosinophils # (Manual) PT INR APTT Heparin Anti-Xa Level POC ABG pH POC ABG pCO2 POC ABG pO2 Sodium 136 L Potassium Chloride 93.7 L Carbon Dioxide BUN Creatinine 0.5 L Glucose 127 H POC Glucose 106 H Calcium Phosphorus Magnesium Total Bilirubin AST 50 H Total Creatine Kinase CK-MB (CK-2) Total Protein Albumin 2.7 L 03/08/17 03/08/17 03/09/17 12:14 17:50 05:26 WBC 11.8 H RBC Hgb 16.3 H Hct 49.1 H MCV 98 H MCH 33 H MCHC RDW Plt Count Lymph % (Auto) [place] % (Auto) 10.8 H [place] # 1.3 H Seg Neutrophils % 71.8 H Seg Neuts % (Manual) Lymphocytes % (Manual) Monocytes % (Manual) Seg Neutrophils # 8.4 H Seg Neutrophils # Man Lymphocytes # (Manual) Monocytes # (Manual) Eosinophils # (Manual) PT INR APTT Heparin Anti-Xa Level POC ABG pH POC ABG pCO2 POC ABG pO2 Sodium Potassium Chloride Carbon Dioxide BUN Creatinine Glucose POC Glucose 115 H 117 H Calcium Phosphorus Magnesium Total Bilirubin AST Total Creatine Kinase CK-MB (CK-2) Total Protein Albumin 03/09/17 03/09/17 03/09/17 05:26 12:39 16:19 WBC RBC Hgb Hct MCV MCH MCHC RDW Plt Count Lymph % (Auto) [place] % (Auto) [place] # Seg Neutrophils % Seg Neuts % (Manual) Lymphocytes % (Manual) Monocytes % (Manual) Seg Neutrophils # Seg Neutrophils # Man Lymphocytes # (Manual) Monocytes # (Manual) Eosinophils # (Manual) PT INR APTT Heparin Anti-Xa Level POC ABG pH POC ABG pCO2 POC ABG pO2 Sodium Potassium Chloride 94.7 L Carbon Dioxide BUN Creatinine 0.7 L Glucose 115 H POC Glucose 111 H 116 H Calcium Phosphorus Magnesium Total Bilirubin AST Total Creatine Kinase CK-MB (CK-2) Total Protein Albumin 03/09/17 03/10/17 03/10/17 22:48 08:27 11:46 WBC RBC Hgb Hct MCV MCH MCHC RDW Plt Count Lymph % (Auto) [place] % (Auto) [place] # Seg Neutrophils % Seg Neuts % (Manual) Lymphocytes % (Manual) Monocytes % (Manual) Seg Neutrophils # Seg Neutrophils # Man Lymphocytes # (Manual) Monocytes # (Manual) Eosinophils # (Manual) PT INR APTT Heparin Anti-Xa Level POC ABG pH POC ABG pCO2 POC ABG pO2 Sodium Potassium Chloride Carbon Dioxide BUN Creatinine Glucose POC Glucose 106 H 107 H 116 H Calcium Phosphorus Magnesium Total Bilirubin AST Total Creatine Kinase CK-MB (CK-2) Total Protein Albumin 03/10/17 03/10/17 03/11/17 17:01 21:46 08:10 WBC RBC Hgb Hct MCV MCH MCHC RDW Plt Count Lymph % (Auto) [place] % (Auto) [place] # Seg Neutrophils % Seg Neuts % (Manual) Lymphocytes % (Manual) Monocytes % (Manual) Seg Neutrophils # Seg Neutrophils # Man Lymphocytes # (Manual) Monocytes # (Manual) Eosinophils # (Manual) PT INR APTT Heparin Anti-Xa Level POC ABG pH POC ABG pCO2 POC ABG pO2 Sodium Potassium Chloride Carbon Dioxide BUN Creatinine Glucose POC Glucose 115 H 135 H 109 H Calcium Phosphorus Magnesium Total Bilirubin AST Total Creatine Kinase CK-MB (CK-2) Total Protein Albumin 03/11/17 03/11/17 03/11/17 12:12 17:45 22:14 WBC RBC Hgb Hct MCV MCH MCHC RDW Plt Count Lymph % (Auto) [place] % (Auto) [place] # Seg Neutrophils % Seg Neuts % (Manual) Lymphocytes % (Manual) Monocytes % (Manual) Seg Neutrophils # Seg Neutrophils # Man Lymphocytes # (Manual) Monocytes # (Manual) Eosinophils # (Manual) PT INR APTT Heparin Anti-Xa Level POC ABG pH POC ABG pCO2 POC ABG pO2 Sodium Potassium Chloride Carbon Dioxide BUN Creatinine Glucose POC Glucose 136 H 126 H 132 H Calcium Phosphorus Magnesium Total Bilirubin AST Total Creatine Kinase CK-MB (CK-2) Total Protein Albumin 03/12/17 03/12/17 03/12/17 08:44 08:44 12:56 WBC 14.9 H RBC 5.04 H Hgb 16.1 H Hct 48.8 H MCV 97 H MCH MCHC RDW Plt Count Lymph % (Auto) 11.7 L [place] % (Auto) 11.6 H [place] # 1.7 H Seg Neutrophils % 75.5 H Seg Neuts % (Manual) Lymphocytes % (Manual) Monocytes % (Manual) Seg Neutrophils # 11.2 H Seg Neutrophils # Man Lymphocytes # (Manual) Monocytes # (Manual) Eosinophils # (Manual) PT INR APTT Heparin Anti-Xa Level POC ABG pH POC ABG pCO2 POC ABG pO2 Sodium Potassium 3.2 L Chloride 93.4 L Carbon Dioxide BUN Creatinine 0.6 L Glucose 121 H POC Glucose 129 H Calcium Phosphorus Magnesium Total Bilirubin 1.30 H AST Total Creatine Kinase CK-MB (CK-2) Total Protein Albumin 3.2 L 03/12/17 03/13/17 03/13/17 17:13 09:05 11:36 WBC RBC Hgb Hct MCV MCH MCHC RDW Plt Count Lymph % (Auto) [place] % (Auto) [place] # Seg Neutrophils % Seg Neuts % (Manual) Lymphocytes % (Manual) Monocytes % (Manual) Seg Neutrophils # Seg Neutrophils # Man Lymphocytes # (Manual) Monocytes # (Manual) Eosinophils # (Manual) PT INR APTT Heparin Anti-Xa Level POC ABG pH POC ABG pCO2 POC ABG pO2 Sodium Potassium Chloride Carbon Dioxide BUN Creatinine Glucose POC Glucose 161 H 110 H 126 H Calcium Phosphorus Magnesium Total Bilirubin AST Total Creatine Kinase CK-MB (CK-2) Total Protein Albumin 03/13/17 03/13/17 03/14/17 16:17 21:43 08:40 WBC RBC Hgb Hct MCV MCH MCHC RDW Plt Count Lymph % (Auto) [place] % (Auto) [place] # Seg Neutrophils % Seg Neuts % (Manual) Lymphocytes % (Manual) Monocytes % (Manual) Seg Neutrophils # Seg Neutrophils # Man Lymphocytes # (Manual) Monocytes # (Manual) Eosinophils # (Manual) PT INR APTT Heparin Anti-Xa Level POC ABG pH POC ABG pCO2 POC ABG pO2 Sodium Potassium Chloride Carbon Dioxide BUN Creatinine Glucose POC Glucose 126 H 115 H 106 H Calcium Phosphorus Magnesium Total Bilirubin AST Total Creatine Kinase CK-MB (CK-2) Total Protein Albumin 03/14/17 03/14/17 03/14/17 12:01 17:39 20:30 WBC RBC Hgb Hct MCV MCH MCHC RDW Plt Count Lymph % (Auto) [place] % (Auto) [place] # Seg Neutrophils % Seg Neuts % (Manual) Lymphocytes % (Manual) Monocytes % (Manual) Seg Neutrophils # Seg Neutrophils # Man Lymphocytes # (Manual) Monocytes # (Manual) Eosinophils # (Manual) PT INR APTT Heparin Anti-Xa Level POC ABG pH POC ABG pCO2 POC ABG pO2 Sodium Potassium Chloride Carbon Dioxide BUN Creatinine Glucose POC Glucose 116 H 192 H 122 H Calcium Phosphorus Magnesium Total Bilirubin AST Total Creatine Kinase CK-MB (CK-2) Total Protein Albumin 03/15/17 03/15/17 03/15/17 01:12 06:49 08:46 WBC 23.9 H RBC Hgb 16.1 H Hct 49.4 H MCV 100 H D MCH 33 H MCHC RDW Plt Count Lymph % (Auto) [place] % (Auto) [place] # Seg Neutrophils % Seg Neuts % (Manual) 92.0 H Lymphocytes % (Manual) 4.0 L Monocytes % (Manual) Seg Neutrophils # Seg Neutrophils # Man 22.0 H Lymphocytes # (Manual) 1.0 L Monocytes # (Manual) 1.0 H Eosinophils # (Manual) PT INR APTT Heparin Anti-Xa Level POC ABG pH POC ABG pCO2 POC ABG pO2 Sodium Potassium Chloride 91.0 L Carbon Dioxide 33 H BUN 45 H Creatinine Glucose 160 H POC Glucose 147 H Calcium Phosphorus Magnesium Total Bilirubin AST 41 H Total Creatine Kinase CK-MB (CK-2) Total Protein Albumin 3.0 L 03/15/17 03/15/17 03/15/17 12:11 16:00 20:51 WBC RBC Hgb Hct MCV MCH MCHC RDW Plt Count Lymph % (Auto) [place] % (Auto) [place] # Seg Neutrophils % Seg Neuts % (Manual) Lymphocytes % (Manual) Monocytes % (Manual) Seg Neutrophils # Seg Neutrophils # Man Lymphocytes # (Manual) Monocytes # (Manual) Eosinophils # (Manual) PT INR APTT Heparin Anti-Xa Level POC ABG pH POC ABG pCO2 POC ABG pO2 Sodium Potassium Chloride Carbon Dioxide BUN Creatinine Glucose POC Glucose 144 H 134 H 148 H Calcium Phosphorus Magnesium Total Bilirubin AST Total Creatine Kinase CK-MB (CK-2) Total Protein Albumin 03/16/17 03/16/17 03/16/17 05:59 06:02 09:15 WBC 20.9 H RBC Hgb Hct 45.8 H MCV 99 H MCH 33 H MCHC RDW Plt Count Lymph % (Auto) [place] % (Auto) [place] # Seg Neutrophils % Seg Neuts % (Manual) 92.0 H Lymphocytes % (Manual) 4.0 L Monocytes % (Manual) Seg Neutrophils # Seg Neutrophils # Man 19.2 H Lymphocytes # (Manual) 0.8 L Monocytes # (Manual) Eosinophils # (Manual) PT INR APTT Heparin Anti-Xa Level POC ABG pH POC ABG pCO2 POC ABG pO2 Sodium Potassium Chloride 92.3 L Carbon Dioxide 34 H BUN 44 H Creatinine Glucose 150 H POC Glucose 127 H Calcium Phosphorus Magnesium Total Bilirubin AST Total Creatine Kinase CK-MB (CK-2) Total Protein Albumin 03/16/17 03/16/17 03/17/17 11:59 18:08 07:06 WBC RBC Hgb Hct MCV MCH MCHC RDW Plt Count Lymph % (Auto) [place] % (Auto) [place] # Seg Neutrophils % Seg Neuts % (Manual) Lymphocytes % (Manual) Monocytes % (Manual) Seg Neutrophils # Seg Neutrophils # Man Lymphocytes # (Manual) Monocytes # (Manual) Eosinophils # (Manual) PT INR APTT Heparin Anti-Xa Level POC ABG pH POC ABG pCO2 POC ABG pO2 Sodium Potassium Chloride 93.3 L Carbon Dioxide 35 H BUN 31 H Creatinine Glucose 132 H POC Glucose 147 H 138 H Calcium Phosphorus Magnesium Total Bilirubin AST Total Creatine Kinase CK-MB (CK-2) Total Protein Albumin 03/17/17 03/17/17 03/17/17 07:06 07:14 12:35 WBC 16.6 H RBC Hgb 15.6 H Hct 47.5 H MCV 99 H MCH 33 H MCHC RDW Plt Count Lymph % (Auto) 8.4 L [place] % (Auto) 8.1 H [place] # 1.3 H Seg Neutrophils % 81.8 H Seg Neuts % (Manual) Lymphocytes % (Manual) Monocytes % (Manual) Seg Neutrophils # 13.6 H Seg Neutrophils # Man Lymphocytes # (Manual) Monocytes # (Manual) Eosinophils # (Manual) PT INR APTT Heparin Anti-Xa Level POC ABG pH POC ABG pCO2 POC ABG pO2 Sodium Potassium Chloride Carbon Dioxide BUN Creatinine Glucose POC Glucose 119 H 132 H Calcium Phosphorus Magnesium Total Bilirubin AST Total Creatine Kinase CK-MB (CK-2) Total Protein Albumin 03/18/17 03/18/17 03/18/17 05:05 06:15 06:15 WBC 15.8 H RBC Hgb 16.5 H Hct 49.3 H MCV 99 H MCH 33 H MCHC RDW Plt Count Lymph % (Auto) [place] % (Auto) [place] # Seg Neutrophils % Seg Neuts % (Manual) 88.0 H Lymphocytes % (Manual) 2.0 L Monocytes % (Manual) 8.0 H Seg Neutrophils # Seg Neutrophils # Man 13.9 H Lymphocytes # (Manual) 0.3 L Monocytes # (Manual) 1.3 H Eosinophils # (Manual) PT INR APTT Heparin Anti-Xa Level POC ABG pH POC ABG pCO2 72.9 H POC ABG pO2 168 H Sodium 147 H Potassium 3.5 L Chloride 95.3 L Carbon Dioxide 37 H BUN 29 H Creatinine Glucose 155 H POC Glucose Calcium Phosphorus Magnesium Total Bilirubin AST Total Creatine Kinase CK-MB (CK-2) Total Protein Albumin 03/18/17 03/18/17 03/18/17 08:27 11:24 11:31 WBC RBC Hgb Hct MCV MCH MCHC RDW Plt Count Lymph % (Auto) [place] % (Auto) [place] # Seg Neutrophils % Seg Neuts % (Manual) Lymphocytes % (Manual) Monocytes % (Manual) Seg Neutrophils # Seg Neutrophils # Man Lymphocytes # (Manual) Monocytes # (Manual) Eosinophils # (Manual) PT INR APTT Heparin Anti-Xa Level POC ABG pH 7.530 H POC ABG pCO2 POC ABG pO2 60 L Sodium Potassium Chloride Carbon Dioxide BUN Creatinine Glucose POC Glucose 123 H 176 H Calcium Phosphorus Magnesium Total Bilirubin AST Total Creatine Kinase CK-MB (CK-2) Total Protein Albumin 03/18/17 03/18/17 03/18/17 14:10 15:24 17:23 WBC RBC Hgb 15.4 H Hct 46.4 H MCV MCH MCHC RDW Plt Count Lymph % (Auto) [place] % (Auto) [place] # Seg Neutrophils % Seg Neuts % (Manual) Lymphocytes % (Manual) Monocytes % (Manual) Seg Neutrophils # Seg Neutrophils # Man Lymphocytes # (Manual) Monocytes # (Manual) Eosinophils # (Manual) PT INR APTT Heparin Anti-Xa Level POC ABG pH POC ABG pCO2 POC ABG pO2 Sodium Potassium Chloride 94.5 L Carbon Dioxide 33 H BUN 33 H Creatinine 1.6 H Glucose 241 H POC Glucose 244 H Calcium Phosphorus Magnesium Total Bilirubin AST Total Creatine Kinase CK-MB (CK-2) Total Protein Albumin 3.0 L 03/18/17 03/18/17 03/19/17 17:23 21:33 03:54 WBC 25.4 H RBC Hgb Hct MCV 98 H MCH MCHC RDW Plt Count Lymph % (Auto) [place] % (Auto) [place] # Seg Neutrophils % Seg Neuts % (Manual) 83.0 H Lymphocytes % (Manual) 4.5 L Monocytes % (Manual) 8.0 H Seg Neutrophils # Seg Neutrophils # Man 21.1 H Lymphocytes # (Manual) 1.1 L Monocytes # (Manual) 2.0 H Eosinophils # (Manual) PT 17.1 H INR 1.40 H APTT Heparin Anti-Xa Level POC ABG pH POC ABG pCO2 POC ABG pO2 Sodium Potassium Chloride Carbon Dioxide BUN Creatinine Glucose POC Glucose 164 H Calcium Phosphorus Magnesium Total Bilirubin AST Total Creatine Kinase CK-MB (CK-2) Total Protein Albumin 03/19/17 03/19/17 03/19/17 03:54 06:55 06:55 WBC RBC Hgb Hct MCV MCH MCHC RDW Plt Count Lymph % (Auto) [place] % (Auto) [place] # Seg Neutrophils % Seg Neuts % (Manual) Lymphocytes % (Manual) Monocytes % (Manual) Seg Neutrophils # Seg Neutrophils # Man Lymphocytes # (Manual) Monocytes # (Manual) Eosinophils # (Manual) PT INR APTT Heparin Anti-Xa Level 0.29 L POC ABG pH POC ABG pCO2 POC ABG pO2 Sodium 146 H Potassium 3.4 L Chloride 97.8 L Carbon Dioxide 33 H BUN 30 H Creatinine Glucose 134 H POC Glucose Calcium Phosphorus Magnesium 1.60 L Total Bilirubin AST Total Creatine Kinase CK-MB (CK-2) Total Protein Albumin 03/19/17 03/19/17 03/19/17 08:01 12:56 14:54 WBC RBC Hgb Hct MCV MCH MCHC RDW Plt Count Lymph % (Auto) [place] % (Auto) [place] # Seg Neutrophils % Seg Neuts % (Manual) Lymphocytes % (Manual) Monocytes % (Manual) Seg Neutrophils # Seg Neutrophils # Man Lymphocytes # (Manual) Monocytes # (Manual) Eosinophils # (Manual) PT INR APTT Heparin Anti-Xa Level POC ABG pH POC ABG pCO2 57.8 H POC ABG pO2 71 L Sodium Potassium Chloride Carbon Dioxide BUN Creatinine Glucose POC Glucose 139 H 167 H Calcium Phosphorus Magnesium Total Bilirubin AST Total Creatine Kinase CK-MB (CK-2) Total Protein Albumin 03/19/17 03/19/17 03/20/17 15:53 21:04 03:36 WBC RBC Hgb 15.3 H Hct 48.1 H MCV MCH MCHC RDW Plt Count Lymph % (Auto) [place] % (Auto) [place] # Seg Neutrophils % Seg Neuts % (Manual) Lymphocytes % (Manual) Monocytes % (Manual) Seg Neutrophils # Seg Neutrophils # Man Lymphocytes # (Manual) Monocytes # (Manual) Eosinophils # (Manual) PT INR APTT Heparin Anti-Xa Level POC ABG pH POC ABG pCO2 POC ABG pO2 Sodium Potassium Chloride Carbon Dioxide BUN Creatinine Glucose POC Glucose 172 H 159 H Calcium Phosphorus Magnesium Total Bilirubin AST Total Creatine Kinase CK-MB (CK-2) Total Protein Albumin 03/20/17 03/20/17 03/20/17 07:45 12:02 14:07 WBC RBC Hgb Hct MCV MCH MCHC RDW Plt Count Lymph % (Auto) [place] % (Auto) [place] # Seg Neutrophils % Seg Neuts % (Manual) Lymphocytes % (Manual) Monocytes % (Manual) Seg Neutrophils # Seg Neutrophils # Man Lymphocytes # (Manual) Monocytes # (Manual) Eosinophils # (Manual) PT INR APTT Heparin Anti-Xa Level POC ABG pH 7.312 L POC ABG pCO2 68.3 H POC ABG pO2 47 L Sodium Potassium Chloride Carbon Dioxide BUN Creatinine Glucose POC Glucose 160 H 142 H Calcium Phosphorus Magnesium Total Bilirubin AST Total Creatine Kinase CK-MB (CK-2) Total Protein Albumin 03/20/17 03/20/17 03/20/17 15:57 15:59 19:50 WBC RBC Hgb Hct MCV MCH MCHC RDW Plt Count Lymph % (Auto) [place] % (Auto) [place] # Seg Neutrophils % Seg Neuts % (Manual) Lymphocytes % (Manual) Monocytes % (Manual) Seg Neutrophils # Seg Neutrophils # Man Lymphocytes # (Manual) Monocytes # (Manual) Eosinophils # (Manual) PT INR APTT Heparin Anti-Xa Level POC ABG pH 7.214 L POC ABG pCO2 82.8 H 58.7 H POC ABG pO2 69 L Sodium Potassium Chloride Carbon Dioxide BUN Creatinine Glucose POC Glucose 149 H Calcium Phosphorus Magnesium Total Bilirubin AST Total Creatine Kinase CK-MB (CK-2) Total Protein Albumin 03/20/17 03/20/17 03/21/17 21:19 23:34 04:18 WBC RBC Hgb Hct MCV MCH MCHC RDW Plt Count Lymph % (Auto) [place] % (Auto) [place] # Seg Neutrophils % Seg Neuts % (Manual) Lymphocytes % (Manual) Monocytes % (Manual) Seg Neutrophils # Seg Neutrophils # Man Lymphocytes # (Manual) Monocytes # (Manual) Eosinophils # (Manual) PT INR APTT Heparin Anti-Xa Level 0.20 L POC ABG pH POC ABG pCO2 48.6 H POC ABG pO2 79 L Sodium Potassium Chloride Carbon Dioxide BUN Creatinine Glucose POC Glucose 206 H Calcium Phosphorus Magnesium Total Bilirubin AST Total Creatine Kinase CK-MB (CK-2) Total Protein Albumin 03/21/17 03/21/17 03/21/17 04:21 04:21 05:23 WBC RBC Hgb Hct MCV MCH MCHC RDW Plt Count Lymph % (Auto) [place] % (Auto) [place] # Seg Neutrophils % Seg Neuts % (Manual) Lymphocytes % (Manual) Monocytes % (Manual) Seg Neutrophils # Seg Neutrophils # Man Lymphocytes # (Manual) Monocytes # (Manual) Eosinophils # (Manual) PT INR APTT Heparin Anti-Xa Level 0.24 L POC ABG pH POC ABG pCO2 POC ABG pO2 Sodium 147 H Potassium Chloride Carbon Dioxide BUN 42 H Creatinine 2.6 H D Glucose 209 H POC Glucose 181 H Calcium 7.9 L Phosphorus Magnesium Total Bilirubin AST Total Creatine Kinase CK-MB (CK-2) Total Protein Albumin 03/21/17 03/21/17 03/21/17 13:16 13:16 14:43 WBC 27.8 H RBC Hgb Hct MCV 101 H D MCH MCHC RDW Plt Count Lymph % (Auto) [place] % (Auto) [place] # Seg Neutrophils % Seg Neuts % (Manual) 76.0 H Lymphocytes % (Manual) 7.0 L Monocytes % (Manual) Seg Neutrophils # Seg Neutrophils # Man 21.1 H Lymphocytes # (Manual) Monocytes # (Manual) 1.1 H Eosinophils # (Manual) PT INR APTT Heparin Anti-Xa Level 0.25 L POC ABG pH 7.474 H POC ABG pCO2 POC ABG pO2 59 L Sodium Potassium Chloride Carbon Dioxide BUN Creatinine Glucose POC Glucose Calcium Phosphorus Magnesium Total Bilirubin AST Total Creatine Kinase CK-MB (CK-2) Total Protein Albumin 03/21/17 03/21/17 03/21/17 17:00 18:20 23:40 WBC RBC Hgb Hct MCV MCH MCHC RDW Plt Count Lymph % (Auto) [place] % (Auto) [place] # Seg Neutrophils % Seg Neuts % (Manual) Lymphocytes % (Manual) Monocytes % (Manual) Seg Neutrophils # Seg Neutrophils # Man Lymphocytes # (Manual) Monocytes # (Manual) Eosinophils # (Manual) PT INR APTT Heparin Anti-Xa Level POC ABG pH POC ABG pCO2 POC ABG pO2 Sodium Potassium Chloride Carbon Dioxide BUN 48 H Creatinine 3.2 H Glucose 135 H POC Glucose 152 H 136 H Calcium 6.8 L Phosphorus Magnesium Total Bilirubin AST Total Creatine Kinase CK-MB (CK-2) Total Protein 5.3 L D Albumin 1.7 L 03/22/17 03/22/17 03/22/17 04:30 04:30 04:30 WBC 29.3 H RBC Hgb Hct MCV 100 H MCH MCHC 31 L RDW 15.3 H Plt Count Lymph % (Auto) [place] % (Auto) [place] # Seg Neutrophils % Seg Neuts % (Manual) Lymphocytes % (Manual) Monocytes % (Manual) Seg Neutrophils # Seg Neutrophils # Man Lymphocytes # (Manual) Monocytes # (Manual) Eosinophils # (Manual) PT INR APTT Heparin Anti-Xa Level 0.29 L POC ABG pH POC ABG pCO2 POC ABG pO2 Sodium Potassium Chloride Carbon Dioxide BUN 60 H Creatinine 4.3 H Glucose 118 H POC Glucose Calcium 8.2 L D Phosphorus Magnesium Total Bilirubin AST Total Creatine Kinase CK-MB (CK-2) Total Protein Albumin 1.8 L 03/22/17 03/22/17 03/22/17 05:08 07:00 07:00 WBC 24.8 H RBC Hgb Hct MCV 100 H MCH MCHC RDW Plt Count Lymph % (Auto) [place] % (Auto) [place] # Seg Neutrophils % Seg Neuts % (Manual) 94.0 H Lymphocytes % (Manual) 0 L Monocytes % (Manual) Seg Neutrophils # Seg Neutrophils # Man 23.3 H Lymphocytes # (Manual) 0.0 L Monocytes # (Manual) Eosinophils # (Manual) 0.7 H PT INR APTT Heparin Anti-Xa Level POC ABG pH POC ABG pCO2 POC ABG pO2 Sodium 147 H Potassium Chloride 109.2 H Carbon Dioxide BUN 58 H Creatinine 4.1 H Glucose 117 H POC Glucose 124 H Calcium 7.4 L Phosphorus Magnesium Total Bilirubin AST Total Creatine Kinase CK-MB (CK-2) Total Protein Albumin 03/22/17 03/22/17 03/22/17 08:40 11:37 14:30 WBC RBC Hgb Hct MCV MCH MCHC RDW Plt Count Lymph % (Auto) [place] % (Auto) [place] # Seg Neutrophils % Seg Neuts % (Manual) Lymphocytes % (Manual) Monocytes % (Manual) Seg Neutrophils # Seg Neutrophils # Man Lymphocytes # (Manual) Monocytes # (Manual) Eosinophils # (Manual) PT 16.2 H INR 1.31 H APTT 68.9 H* Heparin Anti-Xa Level < 0.10 L POC ABG pH POC ABG pCO2 POC ABG pO2 Sodium Potassium Chloride Carbon Dioxide BUN Creatinine Glucose POC Glucose 159 H Calcium Phosphorus Magnesium Total Bilirubin AST Total Creatine Kinase CK-MB (CK-2) Total Protein Albumin 03/22/17 03/22/17 03/22/17 17:53 21:44 23:54 WBC RBC Hgb 11.6 L Hct 33.1 L MCV MCH MCHC RDW Plt Count Lymph % (Auto) [place] % (Auto) [place] # Seg Neutrophils % Seg Neuts % (Manual) Lymphocytes % (Manual) Monocytes % (Manual) Seg Neutrophils # Seg Neutrophils # Man Lymphocytes # (Manual) Monocytes # (Manual) Eosinophils # (Manual) PT INR APTT Heparin Anti-Xa Level POC ABG pH POC ABG pCO2 POC ABG pO2 Sodium Potassium Chloride Carbon Dioxide BUN Creatinine Glucose POC Glucose 142 H 131 H Calcium Phosphorus Magnesium Total Bilirubin AST Total Creatine Kinase CK-MB (CK-2) Total Protein Albumin 03/23/17 03/23/17 03/23/17 04:08 05:29 06:34 WBC RBC Hgb Hct MCV MCH MCHC RDW Plt Count Lymph % (Auto) [place] % (Auto) [place] # Seg Neutrophils % Seg Neuts % (Manual) Lymphocytes % (Manual) Monocytes % (Manual) Seg Neutrophils # Seg Neutrophils # Man Lymphocytes # (Manual) Monocytes # (Manual) Eosinophils # (Manual) PT INR APTT Heparin Anti-Xa Level POC ABG pH POC ABG pCO2 POC ABG pO2 75 L Sodium Potassium Chloride Carbon Dioxide 21 L BUN 85 H Creatinine 6.0 H Glucose 134 H POC Glucose 134 H Calcium 8.1 L Phosphorus Magnesium Total Bilirubin AST Total Creatine Kinase CK-MB (CK-2) Total Protein Albumin 03/23/17 03/23/17 03/23/17 12:09 17:20 17:52 WBC RBC Hgb Hct MCV MCH MCHC RDW Plt Count Lymph % (Auto) [place] % (Auto) [place] # Seg Neutrophils % Seg Neuts % (Manual) Lymphocytes % (Manual) Monocytes % (Manual) Seg Neutrophils # Seg Neutrophils # Man Lymphocytes # (Manual) Monocytes # (Manual) Eosinophils # (Manual) PT INR APTT Heparin Anti-Xa Level 1.39 H POC ABG pH POC ABG pCO2 POC ABG pO2 Sodium Potassium Chloride Carbon Dioxide BUN Creatinine Glucose POC Glucose 133 H 151 H Calcium Phosphorus Magnesium Total Bilirubin AST Total Creatine Kinase CK-MB (CK-2) Total Protein Albumin 03/23/17 03/24/17 03/24/17 23:59 03:15 03:15 WBC 23.9 H RBC 3.58 L Hgb 11.6 L Hct 34.6 L MCV 97 H D MCH MCHC RDW Plt Count 122 L Lymph % (Auto) [place] % (Auto) [place] # Seg Neutrophils % Seg Neuts % (Manual) Lymphocytes % (Manual) Monocytes % (Manual) Seg Neutrophils # Seg Neutrophils # Man Lymphocytes # (Manual) Monocytes # (Manual) Eosinophils # (Manual) PT INR APTT Heparin Anti-Xa Level POC ABG pH POC ABG pCO2 POC ABG pO2 Sodium 135 L Potassium Chloride 95.0 L Carbon Dioxide BUN 71 H Creatinine 5.2 H Glucose 123 H POC Glucose 124 H Calcium 8.0 L Phosphorus Magnesium Total Bilirubin AST Total Creatine Kinase CK-MB (CK-2) Total Protein Albumin 03/24/17 03/24/17 03/24/17 03:15 04:53 11:58 WBC RBC Hgb Hct MCV MCH MCHC RDW Plt Count Lymph % (Auto) [place] % (Auto) [place] # Seg Neutrophils % Seg Neuts % (Manual) Lymphocytes % (Manual) Monocytes % (Manual) Seg Neutrophils # Seg Neutrophils # Man Lymphocytes # (Manual) Monocytes # (Manual) Eosinophils # (Manual) PT INR APTT Heparin Anti-Xa Level 0.20 L POC ABG pH POC ABG pCO2 POC ABG pO2 72 L Sodium Potassium Chloride Carbon Dioxide BUN Creatinine Glucose POC Glucose 121 H Calcium Phosphorus Magnesium Total Bilirubin AST Total Creatine Kinase CK-MB (CK-2) Total Protein Albumin 03/24/17 03/25/17 03/25/17 18:16 00:24 05:30 WBC RBC Hgb Hct MCV MCH MCHC RDW Plt Count Lymph % (Auto) [place] % (Auto) [place] # Seg Neutrophils % Seg Neuts % (Manual) Lymphocytes % (Manual) Monocytes % (Manual) Seg Neutrophils # Seg Neutrophils # Man Lymphocytes # (Manual) Monocytes # (Manual) Eosinophils # (Manual) PT INR APTT Heparin Anti-Xa Level POC ABG pH POC ABG pCO2 34.2 L POC ABG pO2 Sodium Potassium Chloride Carbon Dioxide BUN Creatinine Glucose POC Glucose 117 H 107 H Calcium Phosphorus Magnesium Total Bilirubin AST Total Creatine Kinase CK-MB (CK-2) Total Protein Albumin 03/25/17 03/25/17 03/25/17 05:35 11:45 16:48 WBC RBC Hgb Hct MCV MCH MCHC RDW Plt Count Lymph % (Auto) [place] % (Auto) [place] # Seg Neutrophils % Seg Neuts % (Manual) Lymphocytes % (Manual) Monocytes % (Manual) Seg Neutrophils # Seg Neutrophils # Man Lymphocytes # (Manual) Monocytes # (Manual) Eosinophils # (Manual) PT INR APTT Heparin Anti-Xa Level POC ABG pH POC ABG pCO2 POC ABG pO2 Sodium 132 L Potassium Chloride 92.0 L Carbon Dioxide 20 L BUN 102 H Creatinine 7.2 H Glucose 101 H POC Glucose 127 H 114 H Calcium 8.3 L Phosphorus Magnesium Total Bilirubin AST Total Creatine Kinase CK-MB (CK-2) Total Protein Albumin 03/26/17 03/26/17 03/26/17 00:17 04:15 04:15 WBC 21.1 H RBC 3.52 L Hgb 11.0 L Hct 33.2 L MCV 95 H MCH MCHC RDW Plt Count 121 L Lymph % (Auto) [place] % (Auto) [place] # Seg Neutrophils % Seg Neuts % (Manual) Lymphocytes % (Manual) Monocytes % (Manual) Seg Neutrophils # Seg Neutrophils # Man Lymphocytes # (Manual) Monocytes # (Manual) Eosinophils # (Manual) PT INR APTT Heparin Anti-Xa Level POC ABG pH POC ABG pCO2 POC ABG pO2 Sodium 133 L Potassium Chloride 92.9 L Carbon Dioxide 21 L BUN 77 H Creatinine 5.4 H Glucose 115 H POC Glucose 114 H Calcium 8.1 L Phosphorus Magnesium Total Bilirubin AST Total Creatine Kinase CK-MB (CK-2) Total Protein Albumin 03/26/17 03/26/17 04:49 11:36 WBC RBC Hgb Hct MCV MCH MCHC RDW Plt Count Lymph % (Auto) [place] % (Auto) [place] # Seg Neutrophils % Seg Neuts % (Manual) Lymphocytes % (Manual) Monocytes % (Manual) Seg Neutrophils # Seg Neutrophils # Man Lymphocytes # (Manual) Monocytes # (Manual) Eosinophils # (Manual) PT INR APTT Heparin Anti-Xa Level POC ABG pH POC ABG pCO2 POC ABG pO2 Sodium Potassium Chloride Carbon Dioxide BUN Creatinine Glucose POC Glucose 127 H 123 H Calcium Phosphorus Magnesium Total Bilirubin AST Total Creatine Kinase CK-MB (CK-2) Total Protein Albumin
--- NOTE | 2017-03-26 16:59 | Progress Note ---
Assessment and Plan Increased beta aracely dose for better BP and heart rate control. - Patient Problems (1) Atrial fibrillation with rapid ventricular response Current Visit: Yes Status: Acute (2) Acute respiratory failure Current Visit: Yes Status: Acute Qualifiers: Respiratory failure complication: hypoxia Qualified Code(s): J96.01 - Acute respiratory failure with hypoxia (3) HTN (hypertension) Current Visit: Yes Status: Chronic Qualifiers: Hypertension type: essential hypertension Qualified Code(s): I10 - Essential (primary) hypertension (4) Alcohol abuse Current Visit: Yes Status: Chronic (5) Alcohol withdrawal syndrome Current Visit: Yes Status: Acute Qualifiers: Complication of substance-induced condition: C (6) KATHRIN (acute kidney injury) Current Visit: Yes Status: Acute Subjective Date of service: 03/26/17 Principal diagnosis: Afib with RVR, CMP, KATHRIN, HTN, LLE DVT, ETOH abuse Interval history: The patient received Ativan this morning and is currently sedated. He had apparently been agitated earlier on. Objective Vital Signs Temp Pulse Pulse Resp Resp Resp BP 03/26/17 15:46 106 H 140/102 03/26/17 15:00 106 H 24 140/102 03/26/17 14:51 112 H 130/103 03/26/17 14:30 100 H 24 130/103 03/26/17 14:00 99 H 24 133/103 03/26/17 13:43 106 H 24 03/26/17 13:30 101 H 22 128/95 03/26/17 13:23 103 H 24 03/26/17 13:00 104 H 26 H 156/105 03/26/17 12:30 111 H 24 161/110 03/26/17 12:24 105 H 151/109 03/26/17 12:00 98.9 F 103 H 24 151/109 03/26/17 11:42 97 H 148/100 03/26/17 11:30 107 H 22 153/128 03/26/17 11:00 103 H 24 145/95 03/26/17 10:30 97 H 24 148/100 03/26/17 10:00 109 H 26 H 24 157/102 03/26/17 09:31 118 H 22 161/104 03/26/17 09:12 111 H 151/115 03/26/17 09:00 130 H 20 151/115 03/26/17 08:30 128 H 28 H 158/108 03/26/17 08:18 116 H 24 03/26/17 08:09 118 H 26 H 03/26/17 08:00 99.2 F 126 H 31 H 158/117 03/26/17 07:48 124 H 165/101 03/26/17 07:30 103 H 28 H 165/101 03/26/17 07:00 103 H 28 H 155/99 03/26/17 06:46 97 H 156/105 03/26/17 06:30 94 H 24 156/105 03/26/17 06:00 97 H 25 H 155/109 03/26/17 05:30 93 H 24 156/104 03/26/17 05:00 88 24 143/107 03/26/17 04:41 87 156/100 03/26/17 04:30 102 H 26 H 156/101 03/26/17 04:15 88 03/26/17 04:14 106 H 150/107 03/26/17 04:00 98.9 F 91 H 25 H 160/105 03/26/17 03:30 97 H 25 H 156/99 03/26/17 03:00 101 H 24 154/108 03/26/17 02:30 93 H 17 150/108 03/26/17 02:24 98 H 151/107 03/26/17 02:00 103 H 19 154/111 03/26/17 01:30 99 H 24 138/112 03/26/17 01:00 98 H 24 155/101 03/26/17 00:30 93 H 25 H 155/108 03/26/17 00:00 99.4 F 98 H 26 H 148/107 03/25/17 23:52 104 H 156/108 03/25/17 23:30 107 H 26 H 156/108 03/25/17 23:00 101 H 25 H 145/106 03/25/17 22:50 108 H 24 144/102 03/25/17 22:30 96 H 24 151/104 03/25/17 22:00 93 H 24 149/102 03/25/17 21:30 93 H 24 24 148/107 03/25/17 21:12 90 130/93 03/25/17 21:03 92 H 24 03/25/17 21:00 96 H 24 130/93 06/09/17 20:53 89 24 03/25/17 20:50 89 128/85 03/25/17 20:30 102 H 23 131/97 03/25/17 20:00 99 F 94 H 24 133/98 03/25/17 19:30 105 H 24 24 138/96 03/25/17 19:00 90 24 140/97 03/25/17 18:30 95 H 24 135/89 03/25/17 18:00 99 H 23 133/95 03/25/17 17:41 95 H 129/91 03/25/17 17:30 100 H 15 129/91 03/25/17 17:00 147/111 Last Vital Signs Temp 98.9 F 03/26/17 12:00 Pulse 106 H 03/26/17 15:46 Resp 24 03/26/17 15:00 BP 140/102 03/26/17 15:46 Pulse Ox 97 03/26/17 15:46 - Physical Examination General: No Apparent Distress HEENT: Positive: EOMI, Normocephaly, Mucus Membranes Moist Neck: Positive: neck supple, trachea midline Cardiac: Positive: irregularly irregular, S1/S2 Lungs: Positive: Rhonchi Neuro: Positive: Other (sedated) Abdomen: Positive: Soft, Active Bowel Sounds Skin: Positive: Clear. Negative: Rash Musculoskeletal: Normal Range of Motion Extremities: Absent: edema - Labs and Meds CBC 03/26/17 Range/Units 04:15 WBC 21.1 H (4.5-11.0) K/mm3 RBC 3.52 L (3.65-5.03) M/mm3 Hgb 11.0 L (11.8-15.2) gm/dl Hct 33.2 L (35.5-45.6) % Plt Count 121 L (140-440) K/mm3 Comprehensive Metabolic Panel 03/26/17 Range/Units 04:15 Sodium 133 L (137-145) mmol/L Potassium 4.6 (3.6-5.0) mmol/L Chloride 92.9 L (98-107) mmol/L Carbon Dioxide 21 L (22-30) mmol/L BUN 77 H (9-20) mg/dL Creatinine 5.4 H (0.8-1.5) mg/dL Glucose 115 H (75-100) mg/dL Calcium 8.1 L (8.4-10.2) mg/dL - Imaging and Cardiology Echo: report reviewed (03/2015 EF 40-45% with mild mitral regurgitation and mild tricuspid regurgitation)
[2017-03-27 05:07] LABS: ISTAT Base Excess -6; ISTAT HCO3 19.1; ISTAT PCO2 31.4 (35-45); ISTAT PH 7.393 (7.35-7.45); ISTAT PO2 102 (80-105); ISTAT SO2 98; ISTAT TCO2 20
[2017-03-27] MEDS: NOVOLOG SUB-Q SCH ×3 (05:07→18:16)
[2017-03-27] MEDS: CARDIZEM PO SCH ×4 (05:24→23:25)
[2017-03-27] MEDS: ATIVAN IV PRN ×3 (05:24→22:12)
[2017-03-27] MEDS: ZOSYN/NS 2.25 GM/50ML 2.25 GM/50 ML BAG IV SCH (05:29)
[2017-03-27] MEDS: LOPRESSOR PO SCH ×4 (05:32→20:36)
[2017-03-27 05:45] LABS: BUN/Creatinine Ratio 14.17; Calcium 8.5 mg/dL (8.4-10.2); Chloride 90.5 mmol/L (98-107); Potassium 4.7 mmol/L (3.6-5.0)
[2017-03-27] MEDS: DUONEB *Not for PRN Use IH SCH ×3 (07:36→20:05)
[2017-03-27 08:41] LABS: Hemoglobin 11.5 gm/dl (11.8-15.2); Mean Corpuscular HGB Conc 33 % (32-34); Mean Corpuscular Hemoglobin 31 pg (28-32); Mean Corpuscular Volume 95 fl (84-94); Platelet Count 156 K/mm3 (140-440); Red Blood Count 3.68 M/mm3 (3.65-5.03); Red Cell Distribution Width 15.1 % (13.2-15.2)
[2017-03-27 08:43] LABS: White Blood Count 24.7 K/mm3 (4.5-11.0)
--- NOTE | 2017-03-27 09:48 | XRay Report ---
AP CHEST: HISTORY: Followup respiratory failure Lines and support devices remain in good position. Subtle infiltrative changes in the right lung are stable. The left lung remains clear. Heart size is stable at the upper limits of normal. No pleural effusion or pneumothorax has developed. IMPRESSION: No change.
[2017-03-27] MEDS: VITAMIN B-1 PO SCH (10:18)
[2017-03-27] MEDS: PROTONIX PO SCH (10:18)
[2017-03-27] MEDS: FOLVITE PO SCH (10:18)
--- NOTE | 2017-03-27 12:36 | Progress Note ---
Assessment and Plan Acute kidney injury in a patien who is currently dialysis dependent for solute and volume clearance, urine output declined again Patient likely will require renal replacement therapy in the morning at least 4 hours in my opinion to be reassessed before next dialysis treatment Monitor for recovery of renal function at this time Ventilator dependent for respiratory failure USG neg 03/22/17 No emergent indication for renal replacement therapy today Being treated for atrial fibrillation, respiratory failure, alcohol abuse and withdrawal Multiorgan failure prognosis guarded to poor family is aware We'll continue to follow and make recommendation from renal standpoint Subjective Principal diagnosis: Afib with RVR, CMP, KATHRIN, HTN, LLE DVT, ETOH abuse Interval history: Patient was seen today for follow-up and multiple renal related issues Events of 24 hours vitals labs intake output medications were reviewed Extubated now dark urine Initiated on renal replacement therapy due to acute renal failure Objective - Vital Signs Vital signs: Vital Signs - 12hr 03/27/17 03/27/17 03/27/17 00:45 01:00 01:30 Temperature Pulse Rate 72 95 H 91 H Pulse Rate [ Anterior Bilateral Throughout] Respiratory 24 24 Rate Respiratory Rate [Anterior Bilateral Throughout] Respiratory Rate [Right Wrist] Blood Pressure 98/57 152/90 157/109 O2 Sat by Pulse 100 94 99 Oximetry 03/27/17 03/27/17 03/27/17 02:00 02:30 02:40 Temperature Pulse Rate 92 H 98 H 92 H Pulse Rate [ Anterior Bilateral Throughout] Respiratory 24 25 H 24 Rate Respiratory Rate [Anterior Bilateral Throughout] Respiratory Rate [Right Wrist] Blood Pressure 156/109 156/113 O2 Sat by Pulse 98 99 99 Oximetry 03/27/17 03/27/17 03/27/17 03:00 03:30 03:52 Temperature 99.3 F Pulse Rate 92 H 95 H Pulse Rate [ Anterior Bilateral Throughout] Respiratory 24 24 Rate Respiratory Rate [Anterior Bilateral Throughout] Respiratory Rate [Right Wrist] Blood Pressure 161/113 167/111 O2 Sat by Pulse 99 98 Oximetry 03/27/17 03/27/17 03/27/17 04:00 04:15 04:30 Temperature Pulse Rate 87 92 H 92 H Pulse Rate [ Anterior Bilateral Throughout] Respiratory 24 24 Rate Respiratory Rate [Anterior Bilateral Throughout] Respiratory Rate [Right Wrist] Blood Pressure 153/90 155/109 O2 Sat by Pulse 94 100 96 Oximetry 03/27/17 03/27/17 03/27/17 04:46 05:00 05:15 Temperature Pulse Rate 104 H 96 H Pulse Rate [ Anterior Bilateral Throughout] Respiratory 22 Rate Respiratory Rate [Anterior Bilateral Throughout] Respiratory Rate [Right Wrist] Blood Pressure 153/90 160/109 O2 Sat by Pulse 97 99 100 Oximetry 03/27/17 03/27/17 03/27/17 05:24 05:30 05:32 Temperature Pulse Rate 100 H 91 H 102 H Pulse Rate [ Anterior Bilateral Throughout] Respiratory 18 Rate Respiratory Rate [Anterior Bilateral Throughout] Respiratory Rate [Right Wrist] Blood Pressure 160/109 150/108 160/109 O2 Sat by Pulse 98 Oximetry 03/27/17 03/27/17 03/27/17 06:00 06:10 06:30 Temperature Pulse Rate 100 H 100 H 85 Pulse Rate [ Anterior Bilateral Throughout] Respiratory 24 24 Rate Respiratory Rate [Anterior Bilateral Throughout] Respiratory Rate [Right Wrist] Blood Pressure 143/99 141/97 O2 Sat by Pulse Oximetry 03/27/17 03/27/17 03/27/17 07:00 07:30 07:36 Temperature Pulse Rate 86 84 Pulse Rate [ 86 Anterior Bilateral Throughout] Respiratory 24 24 Rate Respiratory 24 Rate [Anterior Bilateral Throughout] Respiratory Rate [Right Wrist] Blood Pressure 143/99 151/97 O2 Sat by Pulse 96 98 Oximetry 03/27/17 03/27/17 03/27/17 07:51 07:53 08:00 Temperature 99.1 F Pulse Rate 100 H Pulse Rate [ 88 Anterior Bilateral Throughout] Respiratory 24 30 H Rate Respiratory 24 Rate [Anterior Bilateral Throughout] Respiratory Rate [Right Wrist] Blood Pressure 143/99 O2 Sat by Pulse 98 99 Oximetry 03/27/17 03/27/17 03/27/17 08:01 08:31 09:01 Temperature Pulse Rate 105 H 120 H 120 H Pulse Rate [ Anterior Bilateral Throughout] Respiratory 22 28 H 21 Rate Respiratory Rate [Anterior Bilateral Throughout] Respiratory Rate [Right Wrist] Blood Pressure 159/109 156/105 155/95 O2 Sat by Pulse 89 89 88 Oximetry 03/27/17 03/27/17 03/27/17 09:30 10:00 10:01 Temperature Pulse Rate 115 H 106 H 115 H Pulse Rate [ Anterior Bilateral Throughout] Respiratory 26 H 25 H Rate Respiratory Rate [Anterior Bilateral Throughout] Respiratory 30 H Rate [Right Wrist] Blood Pressure 146/95 155/95 O2 Sat by Pulse 90 91 Oximetry 06/11/17 06/11/17 06/11/17 10:18 10:31 11:00 Temperature Pulse Rate 106 H 112 H 106 H Pulse Rate [ Anterior Bilateral Throughout] Respiratory 30 H 27 H Rate Respiratory Rate [Anterior Bilateral Throughout] Respiratory Rate [Right Wrist] Blood Pressure 155/95 154/101 157/97 O2 Sat by Pulse 91 92 Oximetry 03/27/17 03/27/17 03/27/17 11:54 12:00 12:32 Temperature 98.9 F Pulse Rate 106 H 116 H Pulse Rate [ Anterior Bilateral Throughout] Respiratory 27 H Rate Respiratory Rate [Anterior Bilateral Throughout] Respiratory Rate [Right Wrist] Blood Pressure 157/97 150/106 O2 Sat by Pulse 95 Oximetry - General Appearance General appearance: appears stated age EENT: mucous membranes moist Neck: no JVD Respiratory: Present: Rales Gastrointestinal: normal (non tender abdomen) - Lab 03/27/17 08:11 03/27/17 04:00 Most recent lab results Calcium 8.5 mg/dL (8.4-10.2) 03/27/17 04:00 Phosphorus 4.60 mg/dL (2.5-4.5) H 03/06/17 04:50 Magnesium 1.60 mg/dL (1.7-2.3) L 03/19/17 06:55
--- NOTE | 2017-03-27 12:52 | Progress Note ---
Assessment and Plan Increased the dose of metoprolol. - Patient Problems (1) Atrial fibrillation with rapid ventricular response Current Visit: Yes Status: Acute (2) Acute respiratory failure Current Visit: Yes Status: Acute Qualifiers: Respiratory failure complication: hypoxia Qualified Code(s): J96.01 - Acute respiratory failure with hypoxia (3) HTN (hypertension) Current Visit: Yes Status: Chronic Qualifiers: Hypertension type: essential hypertension Qualified Code(s): I10 - Essential (primary) hypertension (4) Alcohol abuse Current Visit: Yes Status: Chronic (5) Alcohol withdrawal syndrome Current Visit: Yes Status: Acute Qualifiers: Complication of substance-induced condition: C (6) KATHRIN (acute kidney injury) Current Visit: Yes Status: Acute (7) Deep vein thrombosis (DVT) Current Visit: Yes Status: Acute Qualifiers: DVT location: lower extremity Affected thrombotic vein of extremity: A Chronicity: C Laterality: left Subjective Date of service: 03/27/17 Principal diagnosis: Afib with RVR, CMP, KATHRIN, HTN, LLE DVT, ETOH abuse Interval history: Awake this morning. Some oozing of blood was reported around the Vas-Cath during the night. He remains in atrial fibrillation with mildly rapid ventricular rate. Objective Vital Signs Temp Pulse Pulse Resp Resp Resp BP 03/27/17 12:32 116 H 150/106 03/27/17 12:00 98.9 F 03/27/17 11:54 106 H 27 H 157/97 03/27/17 11:00 106 H 27 H 157/97 03/27/17 10:31 112 H 30 H 154/101 03/27/17 10:18 106 H 155/95 03/27/17 10:01 115 H 25 H 155/95 03/27/17 10:00 106 H 30 H 03/27/17 09:30 115 H 26 H 146/95 03/27/17 09:01 120 H 21 155/95 03/27/17 08:31 120 H 28 H 156/105 03/27/17 08:01 105 H 22 159/109 03/27/17 08:00 99.1 F 30 H 03/27/17 07:53 88 24 03/27/17 07:51 100 H 24 143/99 03/27/17 07:36 86 24 03/27/17 07:30 84 24 151/97 03/27/17 07:00 86 24 143/99 03/27/17 06:30 85 24 141/97 03/27/17 06:10 100 H 03/27/17 06:00 100 H 24 143/99 03/27/17 05:32 102 H 160/109 03/27/17 05:30 91 H 18 150/108 03/27/17 05:24 100 H 160/109 03/27/17 05:15 03/27/17 05:00 96 H 22 160/109 03/27/17 04:46 104 H 153/90 03/27/17 04:30 92 H 24 155/109 03/27/17 04:15 92 H 03/27/17 04:00 87 24 153/90 03/27/17 03:52 99.3 F 03/27/17 03:30 95 H 24 167/111 03/27/17 03:00 92 H 24 161/113 03/27/17 02:40 92 H 24 03/27/17 02:30 98 H 25 H 156/113 03/27/17 02:00 92 H 24 156/109 03/27/17 01:30 91 H 24 157/109 03/27/17 01:00 95 H 24 152/90 03/27/17 00:45 72 98/57 03/27/17 00:30 90 19 150/112 03/27/17 00:00 98.7 F 92 H 18 144/116 03/26/17 23:50 24 03/26/17 23:34 89 150/103 03/26/17 23:30 89 21 161/109 03/26/17 23:00 88 23 150/103 03/26/17 22:55 97 H 14 158/110 03/26/17 22:30 101 H 24 158/110 03/26/17 22:15 92 H 24 24 03/26/17 22:00 89 24 151/112 03/26/17 21:30 92 H 24 155/110 03/26/17 21:00 94 H 19 153/101 03/26/17 20:30 92 H 25 H 151/97 03/26/17 20:00 99 F 92 H 17 152/103 03/26/17 19:50 90 27 H 03/26/17 19:40 87 87 24 150/98 03/26/17 19:30 85 24 150/98 06/10/17 19:20 84 24 24 03/26/17 19:00 84 25 H 147/96 03/26/17 18:30 96 H 25 H 145/94 03/26/17 18:07 98 H 145/95 03/26/17 18:06 96 H 145/95 03/26/17 18:00 92 H 24 149/96 03/26/17 17:30 106 H 24 145/95 03/26/17 17:00 106 H 24 141/100 03/26/17 16:30 97 H 22 143/101 03/26/17 16:00 98.9 F 90 24 154/103 03/26/17 15:46 106 H 140/102 03/26/17 15:30 89 25 H 145/106 03/26/17 15:00 106 H 24 140/102 03/26/17 14:51 112 H 130/103 03/26/17 14:30 100 H 24 130/103 03/26/17 14:00 99 H 24 133/103 03/26/17 13:43 106 H 24 03/26/17 13:30 101 H 22 128/95 03/26/17 13:23 103 H 24 03/26/17 13:00 104 H 26 H 156/105 Last Vital Signs Temp 98.9 F 03/27/17 12:00 Pulse 116 H 03/27/17 12:32 Resp 27 H 03/27/17 11:54 BP 150/106 03/27/17 12:32 Pulse Ox 95 03/27/17 11:54 - Physical Examination General: No Apparent Distress HEENT: Positive: EOMI, Normocephaly, Mucus Membranes Moist Neck: Positive: neck supple, trachea midline Cardiac: Positive: irregularly irregular, S1/S2 Lungs: Positive: Rhonchi Neuro: Positive: Other (sedated) Abdomen: Positive: Soft, Active Bowel Sounds Skin: Positive: Clear. Negative: Rash Musculoskeletal: Normal Range of Motion Extremities: Absent: edema - Labs and Meds CBC 03/27/17 Range/Units 08:11 WBC 24.7 H (4.5-11.0) K/mm3 RBC 3.68 (3.65-5.03) M/mm3 Hgb 11.5 L (11.8-15.2) gm/dl Hct 35.0 L (35.5-45.6) % Plt Count 156 (140-440) K/mm3 Comprehensive Metabolic Panel 03/27/17 Range/Units 04:00 Sodium 132 L (137-145) mmol/L Potassium 4.7 (3.6-5.0) mmol/L Chloride 90.5 L (98-107) mmol/L Carbon Dioxide 19 L (22-30) mmol/L BUN 95 H (9-20) mg/dL Creatinine 6.7 H (0.8-1.5) mg/dL Glucose 110 H (75-100) mg/dL Calcium 8.5 (8.4-10.2) mg/dL - Imaging and Cardiology Echo: report reviewed (03/2015 EF 40-45% with mild mitral regurgitation and mild tricuspid regurgitation) - Telemetry EKG Rhythm: Atrial Fibrillation
--- NOTE | 2017-03-27 13:04 | Progress Note ---
Assessment and Plan 51 y/o male, noncompliant, with systolic heart failure, admitted with afib with RVR, and possible ETOH abuse, now with recurrent afib with RVR and likely aspiration pneumonia on the right resulting in acute respiratory failure. 1. Tolerated 5 of PEEP and PSV this am. ABG is good. Well extubate 2. ESBL in urine. Needs contact isoloation. Stopped zosyn and started on Merrem. ID international travel consultant is out of tow. 3. Continue PRN ativan 4. Rate control per cards, heparin back on. Last note states not a good candidate for systemic anticoagulation. I assume they mean as an outpatient as patient is on heparin currently. Cards means that he will not go home with anticoagulation 5. Na now dropping, follow up renal recs. Can be adjusted with HD 6. HD per renal 7. Overall prognosis remains guarded. CCT 31 minutes. Subjective Date of service: 03/27/17 Principal diagnosis: Afib with RVR, CMP, KATHRIN, HTN, LLE DVT, ETOH abuse Interval history: Sedation off, tolerating CPAP. ESBL back in urine. Stopped zosyn. Needs contact Objective Vital Signs - 12hr 03/27/17 03/27/17 03/27/17 01:00 01:30 02:00 Temperature Pulse Rate 95 H 91 H 92 H Pulse Rate [ Anterior Bilateral Throughout] Respiratory 24 24 24 Rate Respiratory Rate [Anterior Bilateral Throughout] Respiratory Rate [Right Wrist] Blood Pressure 152/90 157/109 156/109 O2 Sat by Pulse 94 99 98 Oximetry 03/27/17 03/27/17 03/27/17 02:30 02:40 03:00 Temperature Pulse Rate 98 H 92 H 92 H Pulse Rate [ Anterior Bilateral Throughout] Respiratory 25 H 24 24 Rate Respiratory Rate [Anterior Bilateral Throughout] Respiratory Rate [Right Wrist] Blood Pressure 156/113 161/113 O2 Sat by Pulse 99 99 99 Oximetry 03/27/17 03/27/17 03/27/17 03:30 03:52 04:00 Temperature 99.3 F Pulse Rate 95 H 87 Pulse Rate [ Anterior Bilateral Throughout] Respiratory 24 24 Rate Respiratory Rate [Anterior Bilateral Throughout] Respiratory Rate [Right Wrist] Blood Pressure 167/111 153/90 O2 Sat by Pulse 98 94 Oximetry 03/27/17 03/27/17 03/27/17 04:15 04:30 04:46 Temperature Pulse Rate 92 H 92 H 104 H Pulse Rate [ Anterior Bilateral Throughout] Respiratory 24 Rate Respiratory Rate [Anterior Bilateral Throughout] Respiratory Rate [Right Wrist] Blood Pressure 155/109 153/90 O2 Sat by Pulse 100 96 97 Oximetry 03/27/17 03/27/17 03/27/17 05:00 05:15 05:24 Temperature Pulse Rate 96 H 100 H Pulse Rate [ Anterior Bilateral Throughout] Respiratory 22 Rate Respiratory Rate [Anterior Bilateral Throughout] Respiratory Rate [Right Wrist] Blood Pressure 160/109 160/109 O2 Sat by Pulse 99 100 Oximetry 03/27/17 03/27/17 03/27/17 05:30 05:32 06:00 Temperature Pulse Rate 91 H 102 H 100 H Pulse Rate [ Anterior Bilateral Throughout] Respiratory 18 24 Rate Respiratory Rate [Anterior Bilateral Throughout] Respiratory Rate [Right Wrist] Blood Pressure 150/108 160/109 143/99 O2 Sat by Pulse 98 Oximetry 03/27/17 03/27/17 03/27/17 06:10 06:30 07:00 Temperature Pulse Rate 100 H 85 86 Pulse Rate [ Anterior Bilateral Throughout] Respiratory 24 24 Rate Respiratory Rate [Anterior Bilateral Throughout] Respiratory Rate [Right Wrist] Blood Pressure 141/97 143/99 O2 Sat by Pulse 96 Oximetry 03/27/17 03/27/17 03/27/17 07:30 07:36 07:51 Temperature Pulse Rate 84 100 H Pulse Rate [ 86 Anterior Bilateral Throughout] Respiratory 24 24 Rate Respiratory 24 Rate [Anterior Bilateral Throughout] Respiratory Rate [Right Wrist] Blood Pressure 151/97 143/99 O2 Sat by Pulse 98 98 Oximetry 03/27/17 03/27/17 03/27/17 07:53 08:00 08:01 Temperature 99.1 F Pulse Rate 105 H Pulse Rate [ 88 Anterior Bilateral Throughout] Respiratory 30 H 22 Rate Respiratory 24 Rate [Anterior Bilateral Throughout] Respiratory Rate [Right Wrist] Blood Pressure 159/109 O2 Sat by Pulse 99 89 Oximetry 03/27/17 03/27/17 03/27/17 08:31 09:01 09:30 Temperature Pulse Rate 120 H 120 H 115 H Pulse Rate [ Anterior Bilateral Throughout] Respiratory 28 H 21 26 H Rate Respiratory Rate [Anterior Bilateral Throughout] Respiratory Rate [Right Wrist] Blood Pressure 156/105 155/95 146/95 O2 Sat by Pulse 89 88 90 Oximetry 03/27/17 03/27/17 03/27/17 10:00 10:01 10:18 Temperature Pulse Rate 106 H 115 H 106 H Pulse Rate [ Anterior Bilateral Throughout] Respiratory 25 H Rate Respiratory Rate [Anterior Bilateral Throughout] Respiratory 30 H Rate [Right Wrist] Blood Pressure 155/95 155/95 O2 Sat by Pulse 91 Oximetry 03/27/17 03/27/17 03/27/17 10:31 11:00 11:54 Temperature Pulse Rate 112 H 106 H 106 H Pulse Rate [ Anterior Bilateral Throughout] Respiratory 30 H 27 H 27 H Rate Respiratory Rate [Anterior Bilateral Throughout] Respiratory Rate [Right Wrist] Blood Pressure 154/101 157/97 157/97 O2 Sat by Pulse 91 92 95 Oximetry 03/27/17 03/27/17 03/27/17 12:00 12:32 12:53 Temperature 98.9 F Pulse Rate 116 H Pulse Rate [ Anterior Bilateral Throughout] Respiratory Rate Respiratory Rate [Anterior Bilateral Throughout] Respiratory Rate [Right Wrist] Blood Pressure 150/106 O2 Sat by Pulse 98 Oximetry Constitutional: other (orally intubated, critically ill on vent) Eyes: non-icteric ENT: oropharynx moist Neck: supple Effort: mildly labored Ascultation: Right: rales (mostly on the right), rhonchi, Bilateral: clear, diminished breath sounds Cardiovascular: irregular rhythm (ir/ir; no mrg; tachy) Gastrointestinal: normoactive bowel sounds, soft, non-tender, non-distended, other (obese) Integumentary: normal Extremities: no cyanosis, no edema, pink and warm Neurologic: non-focal exam, pupils equal and round, other (opens eyes) Psychiatric: mood appropriate, affect normal CBC and BMP: 03/27/17 08:11 03/27/17 04:00 ABG, PT/INR, D-dimer: ABG POC ABG pH 7.393 (7.35-7.45) 03/27/17 04:46 POC ABG pCO2 31.4 (35-45) L 03/27/17 04:46 POC ABG pO2 102 (80-105) 03/27/17 04:46 POC ABG HCO3 19.1 03/27/17 04:46 POC ABG Total CO2 20 03/27/17 04:46 POC ABG O2 Sat 98 03/27/17 04:46 PT/INR, D-dimer PT 16.2 Sec. (12.2-14.9) H 03/22/17 08:40 INR 1.31 (0.87-1.13) H 03/22/17 08:40 Abnormal lab findings: Abnormal Labs 02/27/17 02/27/17 02/27/17 03:51 05:41 08:49 WBC RBC Hgb Hct MCV MCH MCHC RDW Plt Count Lymph % (Auto) Humphreys % (Auto) Humphreys # Seg Neutrophils % Seg Neuts % (Manual) Lymphocytes % (Manual) Monocytes % (Manual) Seg Neutrophils # Seg Neutrophils # Man Lymphocytes # (Manual) Monocytes # (Manual) Eosinophils # (Manual) PT INR APTT Heparin Anti-Xa Level POC ABG pH POC ABG pCO2 POC ABG pO2 Sodium Potassium Chloride Carbon Dioxide BUN Creatinine Glucose POC Glucose 131 H 139 H Calcium Phosphorus Magnesium Total Bilirubin AST Total Creatine Kinase 171 H CK-MB (CK-2) 5.8 H Total Protein Albumin 02/27/17 02/27/17 02/27/17 13:05 13:08 16:07 WBC RBC Hgb Hct MCV MCH MCHC RDW Plt Count Lymph % (Auto) Humphreys % (Auto) Humphreys # Seg Neutrophils % Seg Neuts % (Manual) Lymphocytes % (Manual) Monocytes % (Manual) Seg Neutrophils # Seg Neutrophils # Man Lymphocytes # (Manual) Monocytes # (Manual) Eosinophils # (Manual) PT INR APTT Heparin Anti-Xa Level POC ABG pH POC ABG pCO2 POC ABG pO2 Sodium Potassium Chloride Carbon Dioxide BUN Creatinine Glucose POC Glucose 146 H 138 H Calcium Phosphorus Magnesium Total Bilirubin AST Total Creatine Kinase CK-MB (CK-2) 4.7 H Total Protein Albumin 02/27/17 02/28/17 02/28/17 21:40 03:32 03:32 WBC RBC Hgb 15.9 H Hct 47.6 H MCV 100 H MCH 34 H MCHC RDW 15.4 H Plt Count Lymph % (Auto) Humphreys % (Auto) Humphreys # Seg Neutrophils % Seg Neuts % (Manual) Lymphocytes % (Manual) Monocytes % (Manual) Seg Neutrophils # Seg Neutrophils # Man Lymphocytes # (Manual) Monocytes # (Manual) Eosinophils # (Manual) PT INR APTT Heparin Anti-Xa Level POC ABG pH POC ABG pCO2 POC ABG pO2 Sodium Potassium Chloride 95.0 L Carbon Dioxide BUN 8 L Creatinine 0.6 L Glucose 126 H POC Glucose 140 H Calcium Phosphorus Magnesium 1.60 L Total Bilirubin AST Total Creatine Kinase CK-MB (CK-2) Total Protein Albumin 02/28/17 02/28/17 02/28/17 07:55 11:57 15:40 WBC RBC Hgb Hct MCV MCH MCHC RDW Plt Count Lymph % (Auto) Humphreys % (Auto) Humphreys # Seg Neutrophils % Seg Neuts % (Manual) Lymphocytes % (Manual) Monocytes % (Manual) Seg Neutrophils # Seg Neutrophils # Man Lymphocytes # (Manual) Monocytes # (Manual) Eosinophils # (Manual) PT INR APTT Heparin Anti-Xa Level POC ABG pH POC ABG pCO2 POC ABG pO2 Sodium Potassium Chloride Carbon Dioxide BUN Creatinine Glucose POC Glucose 134 H 174 H 158 H Calcium Phosphorus Magnesium Total Bilirubin AST Total Creatine Kinase CK-MB (CK-2) Total Protein Albumin 02/28/17 03/01/17 03/01/17 21:51 07:42 10:41 WBC RBC Hgb Hct MCV MCH MCHC RDW Plt Count Lymph % (Auto) Humphreys % (Auto) Humphreys # Seg Neutrophils % Seg Neuts % (Manual) Lymphocytes % (Manual) Monocytes % (Manual) Seg Neutrophils # Seg Neutrophils # Man Lymphocytes # (Manual) Monocytes # (Manual) Eosinophils # (Manual) PT INR APTT Heparin Anti-Xa Level POC ABG pH POC ABG pCO2 POC ABG pO2 Sodium Potassium Chloride Carbon Dioxide BUN Creatinine Glucose POC Glucose 127 H 146 H 176 H Calcium Phosphorus Magnesium Total Bilirubin AST Total Creatine Kinase CK-MB (CK-2) Total Protein Albumin 03/01/17 03/01/17 03/02/17 15:37 23:35 08:11 WBC RBC Hgb Hct MCV MCH MCHC RDW Plt Count Lymph % (Auto) Humphreys % (Auto) Humphreys # Seg Neutrophils % Seg Neuts % (Manual) Lymphocytes % (Manual) Monocytes % (Manual) Seg Neutrophils # Seg Neutrophils # Man Lymphocytes # (Manual) Monocytes # (Manual) Eosinophils # (Manual) PT INR APTT Heparin Anti-Xa Level POC ABG pH POC ABG pCO2 POC ABG pO2 Sodium Potassium Chloride Carbon Dioxide BUN Creatinine Glucose POC Glucose 158 H 139 H 127 H Calcium Phosphorus Magnesium Total Bilirubin AST Total Creatine Kinase CK-MB (CK-2) Total Protein Albumin 03/02/17 03/02/17 03/02/17 09:12 12:03 12:37 WBC 17.9 H RBC Hgb 16.3 H Hct 49.3 H MCV 101 H MCH 33 H MCHC RDW Plt Count Lymph % (Auto) 10.6 L Humphreys % (Auto) 13.4 H Humphreys # 2.4 H Seg Neutrophils % 75.2 H Seg Neuts % (Manual) Lymphocytes % (Manual) Monocytes % (Manual) Seg Neutrophils # 13.5 H Seg Neutrophils # Man Lymphocytes # (Manual) Monocytes # (Manual) Eosinophils # (Manual) PT INR APTT Heparin Anti-Xa Level POC ABG pH POC ABG pCO2 POC ABG pO2 Sodium 135 L Potassium Chloride 90.3 L Carbon Dioxide 32 H BUN Creatinine 0.6 L Glucose 124 H POC Glucose 145 H Calcium Phosphorus Magnesium Total Bilirubin AST Total Creatine Kinase CK-MB (CK-2) Total Protein Albumin 03/02/17 03/02/17 03/03/17 16:09 22:41 03:59 WBC 14.7 H RBC Hgb Hct MCV 100 H MCH 33 H MCHC RDW Plt Count Lymph % (Auto) 10.9 L Humphreys % (Auto) 14.8 H Humphreys # 2.2 H Seg Neutrophils % 73.6 H Seg Neuts % (Manual) Lymphocytes % (Manual) Monocytes % (Manual) Seg Neutrophils # 10.8 H Seg Neutrophils # Man Lymphocytes # (Manual) Monocytes # (Manual) Eosinophils # (Manual) PT INR APTT Heparin Anti-Xa Level POC ABG pH POC ABG pCO2 POC ABG pO2 Sodium Potassium Chloride Carbon Dioxide BUN Creatinine Glucose POC Glucose 141 H 127 H Calcium Phosphorus Magnesium Total Bilirubin AST Total Creatine Kinase CK-MB (CK-2) Total Protein Albumin 03/03/17 03/03/17 03/03/17 04:07 09:19 11:33 WBC RBC Hgb Hct MCV MCH MCHC RDW Plt Count Lymph % (Auto) Humphreys % (Auto) Humphreys # Seg Neutrophils % Seg Neuts % (Manual) Lymphocytes % (Manual) Monocytes % (Manual) Seg Neutrophils # Seg Neutrophils # Man Lymphocytes # (Manual) Monocytes # (Manual) Eosinophils # (Manual) PT INR APTT Heparin Anti-Xa Level POC ABG pH POC ABG pCO2 POC ABG pO2 Sodium Potassium 3.1 L D Chloride 91.1 L Carbon Dioxide BUN Creatinine 0.7 L Glucose 136 H POC Glucose 123 H 153 H Calcium Phosphorus Magnesium Total Bilirubin AST Total Creatine Kinase CK-MB (CK-2) Total Protein Albumin 03/03/17 03/04/17 03/04/17 15:46 05:58 06:04 WBC 11.4 H RBC Hgb Hct 46.0 H MCV 101 H MCH 33 H MCHC RDW Plt Count Lymph % (Auto) Humphreys % (Auto) Humphreys # Seg Neutrophils % Seg Neuts % (Manual) 71.0 H Lymphocytes % (Manual) 13.0 L Monocytes % (Manual) 13.0 H Seg Neutrophils # Seg Neutrophils # Man 8.1 H Lymphocytes # (Manual) Monocytes # (Manual) 1.5 H Eosinophils # (Manual) PT INR APTT Heparin Anti-Xa Level POC ABG pH POC ABG pCO2 POC ABG pO2 Sodium Potassium 3.3 L Chloride 92.2 L Carbon Dioxide 33 H BUN Creatinine 0.6 L Glucose 133 H POC Glucose 131 H Calcium Phosphorus Magnesium Total Bilirubin AST Total Creatine Kinase CK-MB (CK-2) Total Protein Albumin 03/04/17 03/04/17 03/04/17 07:54 11:24 16:00 WBC RBC Hgb Hct MCV MCH MCHC RDW Plt Count Lymph % (Auto) Humphreys % (Auto) Humphreys # Seg Neutrophils % Seg Neuts % (Manual) Lymphocytes % (Manual) Monocytes % (Manual) Seg Neutrophils # Seg Neutrophils # Man Lymphocytes # (Manual) Monocytes # (Manual) Eosinophils # (Manual) PT INR APTT Heparin Anti-Xa Level POC ABG pH POC ABG pCO2 POC ABG pO2 Sodium Potassium Chloride Carbon Dioxide BUN Creatinine Glucose POC Glucose 131 H 134 H 116 H Calcium Phosphorus Magnesium Total Bilirubin AST Total Creatine Kinase CK-MB (CK-2) Total Protein Albumin 03/05/17 03/05/17 03/05/17 00:39 07:03 07:03 WBC 11.4 H RBC Hgb 15.4 H Hct 46.3 H MCV 100 H MCH 33 H MCHC RDW Plt Count Lymph % (Auto) Humphreys % (Auto) Humphreys # Seg Neutrophils % Seg Neuts % (Manual) Lymphocytes % (Manual) Monocytes % (Manual) 20.0 H Seg Neutrophils # Seg Neutrophils # Man Lymphocytes # (Manual) Monocytes # (Manual) 2.3 H Eosinophils # (Manual) PT INR APTT Heparin Anti-Xa Level POC ABG pH POC ABG pCO2 POC ABG pO2 Sodium Potassium 3.3 L Chloride 95.2 L Carbon Dioxide 31 H BUN Creatinine 0.6 L Glucose 137 H POC Glucose 116 H Calcium Phosphorus Magnesium Total Bilirubin AST Total Creatine Kinase CK-MB (CK-2) Total Protein Albumin 03/05/17 03/05/17 03/05/17 08:05 12:15 16:07 WBC RBC Hgb Hct MCV MCH MCHC RDW Plt Count Lymph % (Auto) Humphreys % (Auto) Humphreys # Seg Neutrophils % Seg Neuts % (Manual) Lymphocytes % (Manual) Monocytes % (Manual) Seg Neutrophils # Seg Neutrophils # Man Lymphocytes # (Manual) Monocytes # (Manual) Eosinophils # (Manual) PT INR APTT Heparin Anti-Xa Level POC ABG pH POC ABG pCO2 POC ABG pO2 Sodium Potassium Chloride Carbon Dioxide BUN Creatinine Glucose POC Glucose 134 H 150 H 113 H Calcium Phosphorus Magnesium Total Bilirubin AST Total Creatine Kinase CK-MB (CK-2) Total Protein Albumin 03/06/17 03/06/17 03/06/17 04:45 04:50 11:50 WBC 11.8 H RBC Hgb 15.7 H Hct 47.1 H MCV 98 H MCH 33 H MCHC RDW Plt Count Lymph % (Auto) Humphreys % (Auto) Humphreys # Seg Neutrophils % Seg Neuts % (Manual) Lymphocytes % (Manual) 13.0 L Monocytes % (Manual) 17.0 H Seg Neutrophils # Seg Neutrophils # Man Lymphocytes # (Manual) Monocytes # (Manual) 2.0 H Eosinophils # (Manual) PT INR APTT Heparin Anti-Xa Level POC ABG pH POC ABG pCO2 POC ABG pO2 Sodium Potassium 3.2 L Chloride 94.9 L Carbon Dioxide 31 H BUN Creatinine 0.6 L Glucose 125 H POC Glucose 124 H Calcium Phosphorus 4.60 H Magnesium Total Bilirubin AST Total Creatine Kinase CK-MB (CK-2) Total Protein Albumin 03/06/17 03/06/17 03/07/17 15:43 22:07 04:30 WBC RBC Hgb Hct MCV MCH MCHC RDW Plt Count Lymph % (Auto) Humphreys % (Auto) Humphreys # Seg Neutrophils % Seg Neuts % (Manual) Lymphocytes % (Manual) Monocytes % (Manual) Seg Neutrophils # Seg Neutrophils # Man Lymphocytes # (Manual) Monocytes # (Manual) Eosinophils # (Manual) PT INR APTT Heparin Anti-Xa Level POC ABG pH POC ABG pCO2 POC ABG pO2 Sodium Potassium 3.4 L Chloride 95.1 L Carbon Dioxide BUN Creatinine 0.6 L Glucose 129 H POC Glucose 121 H 109 H Calcium Phosphorus Magnesium Total Bilirubin AST Total Creatine Kinase CK-MB (CK-2) Total Protein Albumin 03/07/17 03/07/17 03/07/17 04:37 12:02 15:03 WBC 11.3 H RBC Hgb Hct MCV 99 H MCH 34 H MCHC RDW Plt Count Lymph % (Auto) Humphreys % (Auto) 14.6 H Humphreys # 1.6 H Seg Neutrophils % Seg Neuts % (Manual) Lymphocytes % (Manual) Monocytes % (Manual) Seg Neutrophils # Seg Neutrophils # Man Lymphocytes # (Manual) Monocytes # (Manual) Eosinophils # (Manual) PT INR APTT Heparin Anti-Xa Level POC ABG pH POC ABG pCO2 POC ABG pO2 Sodium Potassium Chloride Carbon Dioxide BUN Creatinine Glucose POC Glucose 126 H 108 H Calcium Phosphorus Magnesium Total Bilirubin AST Total Creatine Kinase CK-MB (CK-2) Total Protein Albumin 03/08/17 03/08/17 03/08/17 04:58 04:58 08:22 WBC RBC Hgb 16.4 H Hct 49.3 H MCV 99 H MCH 33 H MCHC RDW Plt Count Lymph % (Auto) Humphreys % (Auto) 12.1 H Humphreys # 1.2 H Seg Neutrophils % 71.4 H Seg Neuts % (Manual) Lymphocytes % (Manual) Monocytes % (Manual) Seg Neutrophils # Seg Neutrophils # Man Lymphocytes # (Manual) Monocytes # (Manual) Eosinophils # (Manual) PT INR APTT Heparin Anti-Xa Level POC ABG pH POC ABG pCO2 POC ABG pO2 Sodium 136 L Potassium Chloride 93.7 L Carbon Dioxide BUN Creatinine 0.5 L Glucose 127 H POC Glucose 106 H Calcium Phosphorus Magnesium Total Bilirubin AST 50 H Total Creatine Kinase CK-MB (CK-2) Total Protein Albumin 2.7 L 03/08/17 03/08/17 03/09/17 12:14 17:50 05:26 WBC 11.8 H RBC Hgb 16.3 H Hct 49.1 H MCV 98 H MCH 33 H MCHC RDW Plt Count Lymph % (Auto) Humphreys % (Auto) 10.8 H Humphreys # 1.3 H Seg Neutrophils % 71.8 H Seg Neuts % (Manual) Lymphocytes % (Manual) Monocytes % (Manual) Seg Neutrophils # 8.4 H Seg Neutrophils # Man Lymphocytes # (Manual) Monocytes # (Manual) Eosinophils # (Manual) PT INR APTT Heparin Anti-Xa Level POC ABG pH POC ABG pCO2 POC ABG pO2 Sodium Potassium Chloride Carbon Dioxide BUN Creatinine Glucose POC Glucose 115 H 117 H Calcium Phosphorus Magnesium Total Bilirubin AST Total Creatine Kinase CK-MB (CK-2) Total Protein Albumin 03/09/17 03/09/17 03/09/17 05:26 12:39 16:19 WBC RBC Hgb Hct MCV MCH MCHC RDW Plt Count Lymph % (Auto) Humphreys % (Auto) Humphreys # Seg Neutrophils % Seg Neuts % (Manual) Lymphocytes % (Manual) Monocytes % (Manual) Seg Neutrophils # Seg Neutrophils # Man Lymphocytes # (Manual) Monocytes # (Manual) Eosinophils # (Manual) PT INR APTT Heparin Anti-Xa Level POC ABG pH POC ABG pCO2 POC ABG pO2 Sodium Potassium Chloride 94.7 L Carbon Dioxide BUN Creatinine 0.7 L Glucose 115 H POC Glucose 111 H 116 H Calcium Phosphorus Magnesium Total Bilirubin AST Total Creatine Kinase CK-MB (CK-2) Total Protein Albumin 03/09/17 03/10/17 03/10/17 22:48 08:27 11:46 WBC RBC Hgb Hct MCV MCH MCHC RDW Plt Count Lymph % (Auto) Humphreys % (Auto) Humphreys # Seg Neutrophils % Seg Neuts % (Manual) Lymphocytes % (Manual) Monocytes % (Manual) Seg Neutrophils # Seg Neutrophils # Man Lymphocytes # (Manual) Monocytes # (Manual) Eosinophils # (Manual) PT INR APTT Heparin Anti-Xa Level POC ABG pH POC ABG pCO2 POC ABG pO2 Sodium Potassium Chloride Carbon Dioxide BUN Creatinine Glucose POC Glucose 106 H 107 H 116 H Calcium Phosphorus Magnesium Total Bilirubin AST Total Creatine Kinase CK-MB (CK-2) Total Protein Albumin 03/10/17 03/10/17 03/11/17 17:01 21:46 08:10 WBC RBC Hgb Hct MCV MCH MCHC RDW Plt Count Lymph % (Auto) Humphreys % (Auto) Humphreys # Seg Neutrophils % Seg Neuts % (Manual) Lymphocytes % (Manual) Monocytes % (Manual) Seg Neutrophils # Seg Neutrophils # Man Lymphocytes # (Manual) Monocytes # (Manual) Eosinophils # (Manual) PT INR APTT Heparin Anti-Xa Level POC ABG pH POC ABG pCO2 POC ABG pO2 Sodium Potassium Chloride Carbon Dioxide BUN Creatinine Glucose POC Glucose 115 H 135 H 109 H Calcium Phosphorus Magnesium Total Bilirubin AST Total Creatine Kinase CK-MB (CK-2) Total Protein Albumin 03/11/17 03/11/17 03/11/17 12:12 17:45 22:14 WBC RBC Hgb Hct MCV MCH MCHC RDW Plt Count Lymph % (Auto) Humphreys % (Auto) Humphreys # Seg Neutrophils % Seg Neuts % (Manual) Lymphocytes % (Manual) Monocytes % (Manual) Seg Neutrophils # Seg Neutrophils # Man Lymphocytes # (Manual) Monocytes # (Manual) Eosinophils # (Manual) PT INR APTT Heparin Anti-Xa Level POC ABG pH POC ABG pCO2 POC ABG pO2 Sodium Potassium Chloride Carbon Dioxide BUN Creatinine Glucose POC Glucose 136 H 126 H 132 H Calcium Phosphorus Magnesium Total Bilirubin AST Total Creatine Kinase CK-MB (CK-2) Total Protein Albumin 03/12/17 03/12/17 03/12/17 08:44 08:44 12:56 WBC 14.9 H RBC 5.04 H Hgb 16.1 H Hct 48.8 H MCV 97 H MCH MCHC RDW Plt Count Lymph % (Auto) 11.7 L Humphreys % (Auto) 11.6 H Humphreys # 1.7 H Seg Neutrophils % 75.5 H Seg Neuts % (Manual) Lymphocytes % (Manual) Monocytes % (Manual) Seg Neutrophils # 11.2 H Seg Neutrophils # Man Lymphocytes # (Manual) Monocytes # (Manual) Eosinophils # (Manual) PT INR APTT Heparin Anti-Xa Level POC ABG pH POC ABG pCO2 POC ABG pO2 Sodium Potassium 3.2 L Chloride 93.4 L Carbon Dioxide BUN Creatinine 0.6 L Glucose 121 H POC Glucose 129 H Calcium Phosphorus Magnesium Total Bilirubin 1.30 H AST Total Creatine Kinase CK-MB (CK-2) Total Protein Albumin 3.2 L 03/12/17 03/13/17 03/13/17 17:13 09:05 11:36 WBC RBC Hgb Hct MCV MCH MCHC RDW Plt Count Lymph % (Auto) Humphreys % (Auto) Humphreys # Seg Neutrophils % Seg Neuts % (Manual) Lymphocytes % (Manual) Monocytes % (Manual) Seg Neutrophils # Seg Neutrophils # Man Lymphocytes # (Manual) Monocytes # (Manual) Eosinophils # (Manual) PT INR APTT Heparin Anti-Xa Level POC ABG pH POC ABG pCO2 POC ABG pO2 Sodium Potassium Chloride Carbon Dioxide BUN Creatinine Glucose POC Glucose 161 H 110 H 126 H Calcium Phosphorus Magnesium Total Bilirubin AST Total Creatine Kinase CK-MB (CK-2) Total Protein Albumin 03/13/17 03/13/17 03/14/17 16:17 21:43 08:40 WBC RBC Hgb Hct MCV MCH MCHC RDW Plt Count Lymph % (Auto) Humphreys % (Auto) Humphreys # Seg Neutrophils % Seg Neuts % (Manual) Lymphocytes % (Manual) Monocytes % (Manual) Seg Neutrophils # Seg Neutrophils # Man Lymphocytes # (Manual) Monocytes # (Manual) Eosinophils # (Manual) PT INR APTT Heparin Anti-Xa Level POC ABG pH POC ABG pCO2 POC ABG pO2 Sodium Potassium Chloride Carbon Dioxide BUN Creatinine Glucose POC Glucose 126 H 115 H 106 H Calcium Phosphorus Magnesium Total Bilirubin AST Total Creatine Kinase CK-MB (CK-2) Total Protein Albumin 03/14/17 03/14/17 03/14/17 12:01 17:39 20:30 WBC RBC Hgb Hct MCV MCH MCHC RDW Plt Count Lymph % (Auto) Humphreys % (Auto) Humphreys # Seg Neutrophils % Seg Neuts % (Manual) Lymphocytes % (Manual) Monocytes % (Manual) Seg Neutrophils # Seg Neutrophils # Man Lymphocytes # (Manual) Monocytes # (Manual) Eosinophils # (Manual) PT INR APTT Heparin Anti-Xa Level POC ABG pH POC ABG pCO2 POC ABG pO2 Sodium Potassium Chloride Carbon Dioxide BUN Creatinine Glucose POC Glucose 116 H 192 H 122 H Calcium Phosphorus Magnesium Total Bilirubin AST Total Creatine Kinase CK-MB (CK-2) Total Protein Albumin 03/15/17 03/15/17 03/15/17 01:12 06:49 08:46 WBC 23.9 H RBC Hgb 16.1 H Hct 49.4 H MCV 100 H D MCH 33 H MCHC RDW Plt Count Lymph % (Auto) Humphreys % (Auto) Humphreys # Seg Neutrophils % Seg Neuts % (Manual) 92.0 H Lymphocytes % (Manual) 4.0 L Monocytes % (Manual) Seg Neutrophils # Seg Neutrophils # Man 22.0 H Lymphocytes # (Manual) 1.0 L Monocytes # (Manual) 1.0 H Eosinophils # (Manual) PT INR APTT Heparin Anti-Xa Level POC ABG pH POC ABG pCO2 POC ABG pO2 Sodium Potassium Chloride 91.0 L Carbon Dioxide 33 H BUN 45 H Creatinine Glucose 160 H POC Glucose 147 H Calcium Phosphorus Magnesium Total Bilirubin AST 41 H Total Creatine Kinase CK-MB (CK-2) Total Protein Albumin 3.0 L 03/15/17 03/15/1703/15/17 12:11 16:00 20:51 WBC RBC Hgb Hct MCV MCH MCHC RDW Plt Count Lymph % (Auto) Humphreys % (Auto) Humphreys # Seg Neutrophils % Seg Neuts % (Manual) Lymphocytes % (Manual) Monocytes % (Manual) Seg Neutrophils # Seg Neutrophils # Man Lymphocytes # (Manual) Monocytes # (Manual) Eosinophils # (Manual) PT INR APTT Heparin Anti-Xa Level POC ABG pH POC ABG pCO2 POC ABG pO2 Sodium Potassium Chloride Carbon Dioxide BUN Creatinine Glucose POC Glucose 144 H 134 H 148 H Calcium Phosphorus Magnesium Total Bilirubin AST Total Creatine Kinase CK-MB (CK-2) Total Protein Albumin 03/16/17 03/16/17 03/16/17 05:59 06:02 09:15 WBC 20.9 H RBC Hgb Hct 45.8 H MCV 99 H MCH 33 H MCHC RDW Plt Count Lymph % (Auto) Humphreys % (Auto) Humphreys # Seg Neutrophils % Seg Neuts % (Manual) 92.0 H Lymphocytes % (Manual) 4.0 L Monocytes % (Manual) Seg Neutrophils # Seg Neutrophils # Man 19.2 H Lymphocytes # (Manual) 0.8 L Monocytes # (Manual) Eosinophils # (Manual) PT INR APTT Heparin Anti-Xa Level POC ABG pH POC ABG pCO2 POC ABG pO2 Sodium Potassium Chloride 92.3 L Carbon Dioxide 34 H BUN 44 H Creatinine Glucose 150 H POC Glucose 127 H Calcium Phosphorus Magnesium Total Bilirubin AST Total Creatine Kinase CK-MB (CK-2) Total Protein Albumin 03/16/17 03/16/17 03/17/17 11:59 18:08 07:06 WBC RBC Hgb Hct MCV MCH MCHC RDW Plt Count Lymph % (Auto) Humphreys % (Auto) Humphreys # Seg Neutrophils % Seg Neuts % (Manual) Lymphocytes % (Manual) Monocytes % (Manual) Seg Neutrophils # Seg Neutrophils # Man Lymphocytes # (Manual) Monocytes # (Manual) Eosinophils # (Manual) PT INR APTT Heparin Anti-Xa Level POC ABG pH POC ABG pCO2 POC ABG pO2 Sodium Potassium Chloride 93.3 L Carbon Dioxide 35 H BUN 31 H Creatinine Glucose 132 H POC Glucose 147 H 138 H Calcium Phosphorus Magnesium Total Bilirubin AST Total Creatine Kinase CK-MB (CK-2) Total Protein Albumin 03/17/17 03/17/17 03/17/17 07:06 07:14 12:35 WBC 16.6 H RBC Hgb 15.6 H Hct 47.5 H MCV 99 H MCH 33 H MCHC RDW Plt Count Lymph % (Auto) 8.4 L Humphreys % (Auto) 8.1 H Humphreys # 1.3 H Seg Neutrophils % 81.8 H Seg Neuts % (Manual) Lymphocytes % (Manual) Monocytes % (Manual) Seg Neutrophils # 13.6 H Seg Neutrophils # Man Lymphocytes # (Manual) Monocytes # (Manual) Eosinophils # (Manual) PT INR APTT Heparin Anti-Xa Level POC ABG pH POC ABG pCO2 POC ABG pO2 Sodium Potassium Chloride Carbon Dioxide BUN Creatinine Glucose POC Glucose 119 H 132 H Calcium Phosphorus Magnesium Total Bilirubin AST Total Creatine Kinase CK-MB (CK-2) Total Protein Albumin 03/18/17 03/18/17 03/18/17 05:05 06:15 06:15 WBC 15.8 H RBC Hgb 16.5 H Hct 49.3 H MCV 99 H MCH 33 H MCHC RDW Plt Count Lymph % (Auto) Humphreys % (Auto) Humphreys # Seg Neutrophils % Seg Neuts % (Manual) 88.0 H Lymphocytes % (Manual) 2.0 L Monocytes % (Manual) 8.0 H Seg Neutrophils # Seg Neutrophils # Man 13.9 H Lymphocytes # (Manual) 0.3 L Monocytes # (Manual) 1.3 H Eosinophils # (Manual) PT INR APTT Heparin Anti-Xa Level POC ABG pH POC ABG pCO2 72.9 H POC ABG pO2 168 H Sodium 147 H Potassium 3.5 L Chloride 95.3 L Carbon Dioxide 37 H BUN 29 H Creatinine Glucose 155 H POC Glucose Calcium Phosphorus Magnesium Total Bilirubin AST Total Creatine Kinase CK-MB (CK-2) Total Protein Albumin 03/18/17 03/18/17 03/18/17 08:27 11:24 11:31 WBC RBC Hgb Hct MCV MCH MCHC RDW Plt Count Lymph % (Auto) Humphreys % (Auto) Humphreys # Seg Neutrophils % Seg Neuts % (Manual) Lymphocytes % (Manual) Monocytes % (Manual) Seg Neutrophils # Seg Neutrophils # Man Lymphocytes # (Manual) Monocytes # (Manual) Eosinophils # (Manual) PT INR APTT Heparin Anti-Xa Level POC ABG pH 7.530 H POC ABG pCO2 POC ABG pO2 60 L Sodium Potassium Chloride Carbon Dioxide BUN Creatinine Glucose POC Glucose 123 H 176 H Calcium Phosphorus Magnesium Total Bilirubin AST Total Creatine Kinase CK-MB (CK-2) Total Protein Albumin 03/18/17 03/18/17 03/18/17 14:10 15:24 17:23 WBC RBC Hgb 15.4 H Hct 46.4 H MCV MCH MCHC RDW Plt Count Lymph % (Auto) Humphreys % (Auto) Humphreys # Seg Neutrophils % Seg Neuts % (Manual) Lymphocytes % (Manual) Monocytes % (Manual) Seg Neutrophils # Seg Neutrophils # Man Lymphocytes # (Manual) Monocytes # (Manual) Eosinophils # (Manual) PT INR APTT Heparin Anti-Xa Level POC ABG pH POC ABG pCO2 POC ABG pO2 Sodium Potassium Chloride 94.5 L Carbon Dioxide 33 H BUN 33 H Creatinine 1.6 H Glucose 241 H POC Glucose 244 H Calcium Phosphorus Magnesium Total Bilirubin AST Total Creatine Kinase CK-MB (CK-2) Total Protein Albumin 3.0 L 03/18/17 03/18/17 03/19/17 17:23 21:33 03:54 WBC 25.4 H RBC Hgb Hct MCV 98 H MCH MCHC RDW Plt Count Lymph % (Auto) Humphreys % (Auto) Humphreys # Seg Neutrophils % Seg Neuts % (Manual) 83.0 H Lymphocytes % (Manual) 4.5 L Monocytes % (Manual) 8.0 H Seg Neutrophils # Seg Neutrophils # Man 21.1 H Lymphocytes # (Manual) 1.1 L Monocytes # (Manual) 2.0 H Eosinophils # (Manual) PT 17.1 H INR 1.40 H APTT Heparin Anti-Xa Level POC ABG pH POC ABG pCO2 POC ABG pO2 Sodium Potassium Chloride Carbon Dioxide BUN Creatinine Glucose POC Glucose 164 H Calcium Phosphorus Magnesium Total Bilirubin AST Total Creatine Kinase CK-MB (CK-2) Total Protein Albumin 03/19/17 03/19/17 03/19/17 03:54 06:55 06:55 WBC RBC Hgb Hct MCV MCH MCHC RDW Plt Count Lymph % (Auto) Humphreys % (Auto) Humphreys # Seg Neutrophils % Seg Neuts % (Manual) Lymphocytes % (Manual) Monocytes % (Manual) Seg Neutrophils # Seg Neutrophils # Man Lymphocytes # (Manual) Monocytes # (Manual) Eosinophils # (Manual) PT INR APTT Heparin Anti-Xa Level 0.29 L POC ABG pH POC ABG pCO2 POC ABG pO2 Sodium 146 H Potassium 3.4 L Chloride 97.8 L Carbon Dioxide 33 H BUN 30 H Creatinine Glucose 134 H POC Glucose Calcium Phosphorus Magnesium 1.60 L Total Bilirubin AST Total Creatine Kinase CK-MB (CK-2) Total Protein Albumin 03/19/17 03/19/17 03/19/17 08:01 12:56 14:54 WBC RBC Hgb Hct MCV MCH MCHC RDW Plt Count Lymph % (Auto) Humphreys % (Auto) Humphreys # Seg Neutrophils % Seg Neuts % (Manual) Lymphocytes % (Manual) Monocytes % (Manual) Seg Neutrophils # Seg Neutrophils # Man Lymphocytes # (Manual) Monocytes # (Manual) Eosinophils # (Manual) PT INR APTT Heparin Anti-Xa Level POC ABG pH POC ABG pCO2 57.8 H POC ABG pO2 71 L Sodium Potassium Chloride Carbon Dioxide BUN Creatinine Glucose POC Glucose 139 H 167 H Calcium Phosphorus Magnesium Total Bilirubin AST Total Creatine Kinase CK-MB (CK-2) Total Protein Albumin 03/19/17 03/19/17 03/20/17 15:53 21:04 03:36 WBC RBC Hgb 15.3 H Hct 48.1 H MCV MCH MCHC RDW Plt Count Lymph % (Auto) Humphreys % (Auto) Humphreys # Seg Neutrophils % Seg Neuts % (Manual) Lymphocytes % (Manual) Monocytes % (Manual) Seg Neutrophils # Seg Neutrophils # Man Lymphocytes # (Manual) Monocytes # (Manual) Eosinophils # (Manual) PT INR APTT Heparin Anti-Xa Level POC ABG pH POC ABG pCO2 POC ABG pO2 Sodium Potassium Chloride Carbon Dioxide BUN Creatinine Glucose POC Glucose 172 H 159 H Calcium Phosphorus Magnesium Total Bilirubin AST Total Creatine Kinase CK-MB (CK-2) Total Protein Albumin 03/20/17 03/20/17 03/20/17 07:45 12:02 14:07 WBC RBC Hgb Hct MCV MCH MCHC RDW Plt Count Lymph % (Auto) Humphreys % (Auto) Humphreys # Seg Neutrophils % Seg Neuts % (Manual) Lymphocytes % (Manual) Monocytes % (Manual) Seg Neutrophils # Seg Neutrophils # Man Lymphocytes # (Manual) Monocytes # (Manual) Eosinophils # (Manual) PT INR APTT Heparin Anti-Xa Level POC ABG pH 7.312 L POC ABG pCO2 68.3 H POC ABG pO2 47 L Sodium Potassium Chloride Carbon Dioxide BUN Creatinine Glucose POC Glucose 160 H 142 H Calcium Phosphorus Magnesium Total Bilirubin AST Total Creatine Kinase CK-MB (CK-2) Total Protein Albumin 03/20/17 03/20/17 03/20/17 15:57 15:59 19:50 WBC RBC Hgb Hct MCV MCH MCHC RDW Plt Count Lymph % (Auto) Humphreys % (Auto) Humphreys # Seg Neutrophils % Seg Neuts % (Manual) Lymphocytes % (Manual) Monocytes % (Manual) Seg Neutrophils # Seg Neutrophils # Man Lymphocytes # (Manual) Monocytes # (Manual) Eosinophils # (Manual) PT INR APTT Heparin Anti-Xa Level POC ABG pH 7.214 L POC ABG pCO2 82.8 H 58.7 H POC ABG pO2 69 L Sodium Potassium Chloride Carbon Dioxide BUN Creatinine Glucose POC Glucose 149 H Calcium Phosphorus Magnesium Total Bilirubin AST Total Creatine Kinase CK-MB (CK-2) Total Protein Albumin 03/20/17 03/20/17 03/21/17 21:19 23:34 04:18 WBC RBC Hgb Hct MCV MCH MCHC RDW Plt Count Lymph % (Auto) Humphreys % (Auto) Humphreys # Seg Neutrophils % Seg Neuts % (Manual) Lymphocytes % (Manual) Monocytes % (Manual) Seg Neutrophils # Seg Neutrophils # Man Lymphocytes # (Manual) Monocytes # (Manual) Eosinophils # (Manual) PT INR APTT Heparin Anti-Xa Level 0.20 L POC ABG pH POC ABG pCO2 48.6 H POC ABG pO2 79 L Sodium Potassium Chloride Carbon Dioxide BUN Creatinine Glucose POC Glucose 206 H Calcium Phosphorus Magnesium Total Bilirubin AST Total Creatine Kinase CK-MB (CK-2) Total Protein Albumin 03/21/17 03/21/17 03/21/17 04:21 04:21 05:23 WBC RBC Hgb Hct MCV MCH MCHC RDW Plt Count Lymph % (Auto) Humphreys % (Auto) Humphreys # Seg Neutrophils % Seg Neuts % (Manual) Lymphocytes % (Manual) Monocytes % (Manual) Seg Neutrophils # Seg Neutrophils # Man Lymphocytes # (Manual) Monocytes # (Manual) Eosinophils # (Manual) PT INR APTT Heparin Anti-Xa Level 0.24 L POC ABG pH POC ABG pCO2 POC ABG pO2 Sodium 147 H Potassium Chloride Carbon Dioxide BUN 42 H Creatinine 2.6 H D Glucose 209 H POC Glucose 181 H Calcium 7.9 L Phosphorus Magnesium Total Bilirubin AST Total Creatine Kinase CK-MB (CK-2) Total Protein Albumin 03/21/17 03/21/17 03/21/17 13:16 13:16 14:43 WBC 27.8 H RBC Hgb Hct MCV 101 H D MCH MCHC RDW Plt Count Lymph % (Auto) Humphreys % (Auto) Humphreys # Seg Neutrophils % Seg Neuts % (Manual) 76.0 H Lymphocytes % (Manual) 7.0 L Monocytes % (Manual) Seg Neutrophils # Seg Neutrophils # Man 21.1 H Lymphocytes # (Manual) Monocytes # (Manual) 1.1 H Eosinophils # (Manual) PT INR APTT Heparin Anti-Xa Level 0.25 L POC ABG pH 7.474 H POC ABG pCO2 POC ABG pO2 59 L Sodium Potassium Chloride Carbon Dioxide BUN Creatinine Glucose POC Glucose Calcium Phosphorus Magnesium Total Bilirubin AST Total Creatine Kinase CK-MB (CK-2) Total Protein Albumin 03/21/17 03/21/17 03/21/17 17:00 18:20 23:40 WBC RBC Hgb Hct MCV MCH MCHC RDW Plt Count Lymph % (Auto) Humphreys % (Auto) Humphreys # Seg Neutrophils % Seg Neuts % (Manual) Lymphocytes % (Manual) Monocytes % (Manual) Seg Neutrophils # Seg Neutrophils # Man Lymphocytes # (Manual) Monocytes # (Manual) Eosinophils # (Manual) PT INR APTT Heparin Anti-Xa Level POC ABG pH POC ABG pCO2 POC ABG pO2 Sodium Potassium Chloride Carbon Dioxide BUN 48 H Creatinine 3.2 H Glucose 135 H POC Glucose 152 H 136 H Calcium 6.8 L Phosphorus Magnesium Total Bilirubin AST Total Creatine Kinase CK-MB (CK-2) Total Protein 5.3 L D Albumin 1.7 L 03/22/17 03/22/17 03/22/17 04:30 04:30 04:30 WBC 29.3 H RBC Hgb Hct MCV 100 H MCH MCHC 31 L RDW 15.3 H Plt Count Lymph % (Auto) Humphreys % (Auto) Humphreys # Seg Neutrophils % Seg Neuts % (Manual) Lymphocytes % (Manual) Monocytes % (Manual) Seg Neutrophils # Seg Neutrophils # Man Lymphocytes # (Manual) Monocytes # (Manual) Eosinophils # (Manual) PT INR APTT Heparin Anti-Xa Level 0.29 L POC ABG pH POC ABG pCO2 POC ABG pO2 Sodium Potassium Chloride Carbon Dioxide BUN 60 H Creatinine 4.3 H Glucose 118 H POC Glucose Calcium 8.2 L D Phosphorus Magnesium Total Bilirubin AST Total Creatine Kinase CK-MB (CK-2) Total Protein Albumin 1.8 L 03/22/17 03/22/17 03/22/17 05:08 07:00 07:00 WBC 24.8 H RBC Hgb Hct MCV 100 H MCH MCHC RDW Plt Count Lymph % (Auto) Humphreys % (Auto) Humphreys # Seg Neutrophils % Seg Neuts % (Manual) 94.0 H Lymphocytes % (Manual) 0 L Monocytes % (Manual) Seg Neutrophils # Seg Neutrophils # Man 23.3 H Lymphocytes # (Manual) 0.0 L Monocytes # (Manual) Eosinophils # (Manual) 0.7 H PT INR APTT Heparin Anti-Xa Level POC ABG pH POC ABG pCO2 POC ABG pO2 Sodium 147 H Potassium Chloride 109.2 H Carbon Dioxide BUN 58 H Creatinine 4.1 H Glucose 117 H POC Glucose 124 H Calcium 7.4 L Phosphorus Magnesium Total Bilirubin AST Total Creatine Kinase CK-MB (CK-2) Total Protein Albumin 03/22/17 03/22/17 03/22/17 08:40 11:37 14:30 WBC RBC Hgb Hct MCV MCH MCHC RDW Plt Count Lymph % (Auto) Humphreys % (Auto) Humphreys # Seg Neutrophils % Seg Neuts % (Manual) Lymphocytes % (Manual) Monocytes % (Manual) Seg Neutrophils # Seg Neutrophils # Man Lymphocytes # (Manual) Monocytes # (Manual) Eosinophils # (Manual) PT 16.2 H INR 1.31 H APTT 68.9 H* Heparin Anti-Xa Level < 0.10 L POC ABG pH POC ABG pCO2 POC ABG pO2 Sodium Potassium Chloride Carbon Dioxide BUN Creatinine Glucose POC Glucose 159 H Calcium Phosphorus Magnesium Total Bilirubin AST Total Creatine Kinase CK-MB (CK-2) Total Protein Albumin 03/22/17 03/22/17 03/22/17 17:53 21:44 23:54 WBC RBC Hgb 11.6 L Hct 33.1 L MCV MCH MCHC RDW Plt Count Lymph % (Auto) Humphreys % (Auto) Humphreys # Seg Neutrophils % Seg Neuts % (Manual) Lymphocytes % (Manual) Monocytes % (Manual) Seg Neutrophils # Seg Neutrophils # Man Lymphocytes # (Manual) Monocytes # (Manual) Eosinophils # (Manual) PT INR APTT Heparin Anti-Xa Level POC ABG pH POC ABG pCO2 POC ABG pO2 Sodium Potassium Chloride Carbon Dioxide BUN Creatinine Glucose POC Glucose 142 H 131 H Calcium Phosphorus Magnesium Total Bilirubin AST Total Creatine Kinase CK-MB (CK-2) Total Protein Albumin 03/23/17 03/23/17 03/23/17 04:08 05:29 06:34 WBC RBC Hgb Hct MCV MCH MCHC RDW Plt Count Lymph % (Auto) Humphreys % (Auto) Humphreys # Seg Neutrophils % Seg Neuts % (Manual) Lymphocytes % (Manual) Monocytes % (Manual) Seg Neutrophils # Seg Neutrophils # Man Lymphocytes # (Manual) Monocytes # (Manual) Eosinophils # (Manual) PT INR APTT Heparin Anti-Xa Level POC ABG pH POC ABG pCO2 POC ABG pO2 75 L Sodium Potassium Chloride Carbon Dioxide 21 L BUN 85 H Creatinine 6.0 H Glucose 134 H POC Glucose 134 H Calcium 8.1 L Phosphorus Magnesium Total Bilirubin AST Total Creatine Kinase CK-MB (CK-2) Total Protein Albumin 03/23/17 03/23/17 03/23/17 12:09 17:20 17:52 WBC RBC Hgb Hct MCV MCH MCHC RDW Plt Count Lymph % (Auto) Humphreys % (Auto) Humphreys # Seg Neutrophils % Seg Neuts % (Manual) Lymphocytes % (Manual) Monocytes % (Manual) Seg Neutrophils # Seg Neutrophils # Man Lymphocytes # (Manual) Monocytes # (Manual) Eosinophils # (Manual) PT INR APTT Heparin Anti-Xa Level 1.39 H POC ABG pH POC ABG pCO2 POC ABG pO2 Sodium Potassium Chloride Carbon Dioxide BUN Creatinine Glucose POC Glucose 133 H 151 H Calcium Phosphorus Magnesium Total Bilirubin AST Total Creatine Kinase CK-MB (CK-2) Total Protein Albumin 03/23/17 03/24/17 03/24/17 23:59 03:15 03:15 WBC 23.9 H RBC 3.58 L Hgb 11.6 L Hct 34.6 L MCV 97 H D MCH MCHC RDW Plt Count 122 L Lymph % (Auto) Humphreys % (Auto) Humphreys # Seg Neutrophils % Seg Neuts % (Manual) Lymphocytes % (Manual) Monocytes % (Manual) Seg Neutrophils # Seg Neutrophils # Man Lymphocytes # (Manual) Monocytes # (Manual) Eosinophils # (Manual) PT INR APTT Heparin Anti-Xa Level POC ABG pH POC ABG pCO2 POC ABG pO2 Sodium 135 L Potassium Chloride 95.0 L Carbon Dioxide BUN 71 H Creatinine 5.2 H Glucose 123 H POC Glucose 124 H Calcium 8.0 L Phosphorus Magnesium Total Bilirubin AST Total Creatine Kinase CK-MB (CK-2) Total Protein Albumin 03/24/17 03/24/17 03/24/17 03:15 04:53 11:58 WBC RBC Hgb Hct MCV MCH MCHC RDW Plt Count Lymph % (Auto) Humphreys % (Auto) Humphreys # Seg Neutrophils % Seg Neuts % (Manual) Lymphocytes % (Manual) Monocytes % (Manual) Seg Neutrophils # Seg Neutrophils # Man Lymphocytes # (Manual) Monocytes # (Manual) Eosinophils # (Manual) PT INR APTT Heparin Anti-Xa Level 0.20 L POC ABG pH POC ABG pCO2 POC ABG pO2 72 L Sodium Potassium Chloride Carbon Dioxide BUN Creatinine Glucose POC Glucose 121 H Calcium Phosphorus Magnesium Total Bilirubin AST Total Creatine Kinase CK-MB (CK-2) Total Protein Albumin 03/24/17 03/25/17 03/25/17 18:16 00:24 05:30 WBC RBC Hgb Hct MCV MCH MCHC RDW Plt Count Lymph % (Auto) Humphreys % (Auto) Humphreys # Seg Neutrophils % Seg Neuts % (Manual) Lymphocytes % (Manual) Monocytes % (Manual) Seg Neutrophils # Seg Neutrophils # Man Lymphocytes # (Manual) Monocytes # (Manual) Eosinophils # (Manual) PT INR APTT Heparin Anti-Xa Level POC ABG pH POC ABG pCO2 34.2 L POC ABG pO2 Sodium Potassium Chloride Carbon Dioxide BUN Creatinine Glucose POC Glucose 117 H 107 H Calcium Phosphorus Magnesium Total Bilirubin AST Total Creatine Kinase CK-MB (CK-2) Total Protein Albumin 03/25/17 03/25/17 03/25/17 05:35 11:45 16:48 WBC RBC Hgb Hct MCV MCH MCHC RDW Plt Count Lymph % (Auto) Humphreys % (Auto) Humphreys # Seg Neutrophils % Seg Neuts % (Manual) Lymphocytes % (Manual) Monocytes % (Manual) Seg Neutrophils # Seg Neutrophils # Man Lymphocytes # (Manual) Monocytes # (Manual) Eosinophils # (Manual) PT INR APTT Heparin Anti-Xa Level POC ABG pH POC ABG pCO2 POC ABG pO2 Sodium 132 L Potassium Chloride 92.0 L Carbon Dioxide 20 L BUN 102 H Creatinine 7.2 H Glucose 101 H POC Glucose 127 H 114 H Calcium 8.3 L Phosphorus Magnesium Total Bilirubin AST Total Creatine Kinase CK-MB (CK-2) Total Protein Albumin 03/26/17 03/26/17 03/26/17 00:17 04:15 04:15 WBC 21.1 H RBC 3.52 L Hgb 11.0 L Hct 33.2 L MCV 95 H MCH MCHC RDW Plt Count 121 L Lymph % (Auto) Humphreys % (Auto) Humphreys # Seg Neutrophils % Seg Neuts % (Manual) Lymphocytes % (Manual) Monocytes % (Manual) Seg Neutrophils # Seg Neutrophils # Man Lymphocytes # (Manual) Monocytes # (Manual) Eosinophils # (Manual) PT INR APTT Heparin Anti-Xa Level POC ABG pH POC ABG pCO2 POC ABG pO2 Sodium 133 L Potassium Chloride 92.9 L Carbon Dioxide 21 L BUN 77 H Creatinine 5.4 H Glucose 115 H POC Glucose 114 H Calcium 8.1 L Phosphorus Magnesium Total Bilirubin AST Total Creatine Kinase CK-MB (CK-2) Total Protein Albumin 03/26/17 03/26/17 03/26/17 04:49 11:36 23:29 WBC RBC Hgb Hct MCV MCH MCHC RDW Plt Count Lymph % (Auto) Humphreys % (Auto) Humphreys # Seg Neutrophils % Seg Neuts % (Manual) Lymphocytes % (Manual) Monocytes % (Manual) Seg Neutrophils # Seg Neutrophils # Man Lymphocytes # (Manual) Monocytes # (Manual) Eosinophils # (Manual) PT INR APTT Heparin Anti-Xa Level POC ABG pH POC ABG pCO2 POC ABG pO2 Sodium Potassium Chloride Carbon Dioxide BUN Creatinine Glucose POC Glucose 127 H 123 H 125 H Calcium Phosphorus Magnesium Total Bilirubin AST Total Creatine Kinase CK-MB (CK-2) Total Protein Albumin 03/27/17 03/27/17 03/27/17 04:00 04:46 05:06 WBC RBC Hgb Hct MCV MCH MCHC RDW Plt Count Lymph % (Auto) Humphreys % (Auto) Humphreys # Seg Neutrophils % Seg Neuts % (Manual) Lymphocytes % (Manual) Monocytes % (Manual) Seg Neutrophils # Seg Neutrophils # Man Lymphocytes # (Manual) Monocytes # (Manual) Eosinophils # (Manual) PT INR APTT Heparin Anti-Xa Level POC ABG pH POC ABG pCO2 31.4 L POC ABG pO2 Sodium 132 L Potassium Chloride 90.5 L Carbon Dioxide 19 L BUN 95 H Creatinine 6.7 H Glucose 110 H POC Glucose 116 H Calcium Phosphorus Magnesium Total Bilirubin AST Total Creatine Kinase CK-MB (CK-2) Total Protein Albumin 03/27/17 03/27/17 08:11 08:11 WBC 24.7 H RBC Hgb 11.5 L Hct 35.0 L MCV 95 H MCH MCHC RDW Plt Count Lymph % (Auto) Humph[place]ys % (Auto) Humphreys # Seg Neutrophils % Seg Neuts % (Manual) Lymphocytes % (Manual) Monocytes % (Manual) Seg Neutrophils # Seg Neutrophils # Man Lymphocytes # (Manual) Monocytes # (Manual) Eosinophils # (Manual) PT INR APTT Heparin Anti-Xa Level < 0.10 L POC ABG pH POC ABG pCO2 POC ABG pO2 Sodium Potassium Chloride Carbon Dioxide BUN Creatinine Glucose POC Glucose Calcium Phosphorus Magnesium Total Bilirubin AST Total Creatine Kinase CK-MB (CK-2) Total Protein Albumin
--- NOTE | 2017-03-27 13:37 | Progress Note ---
Assessment and Plan Assessment and plan: Atrial fibrillation with rapid ventricular response.Now on cardizem and metoprolol by feeding tube. Heparin resumed since hematuria resolved. Acute respiratory failure. He is still intubated on ventilator. Pulmonology following Acute metabolic encephalopathy,improving,awake,alert,follows commands. Gross hematuria 4 days ago, now resolved. Dr. Samuel, Urologist evaluated him. patient has history of non-obstructing stones both kidneys. Acute kidney injury. Creatinine 6.7 today . Continue dialysis. UTI with klebsiella pneumonia. ESBL. Contact isolation. Hyponatremia. now resolved. DVT left lower ext. Heparin drip Full CODE STATUS History Interval history: Now awake, No Fever for 3 days now Still intubated Hospitalist Physical - Physical exam Narrative exam: Gen appearance : Intubated, obese HEENT: normocephalic, atraumatic Neck :no JVD Lungs: clear to auscultation bilaterally, no crackles ,or wheezes Heart:S1 and S2 regular, no murmurs no gallop Abdomen soft, non-tender, non-distended, normal bowel sounds Extremities: no edema, no clubbing, or cyanosis Neuro : Intubated,Awake, follows commands, moves all ext - Constitutional Vitals: Temp Pulse Resp BP Pulse Ox 98.9 F 116 H 27 H 150/106 98 03/27/17 12:00 03/27/17 12:32 03/27/17 11:54 03/27/17 12:32 03/27/17 12:53 General appearance: Present: mild distress, well-nourished, other Results - Labs CBC & Chem 7: 03/27/17 08:11 03/27/17 04:00 Labs: Laboratory Last Values WBC 24.7 K/mm3 (4.5-11.0) H 03/27/17 08:11 RBC 3.68 M/mm3 (3.65-5.03) 03/27/17 08:11 Hgb 11.5 gm/dl (11.8-15.2) L 03/27/17 08:11 Hct 35.0 % (35.5-45.6) L 03/27/17 08:11 MCV 95 fl (84-94) H 03/27/17 08:11 MCH 31 pg (28-32) 03/27/17 08:11 MCHC 33 % (32-34) 03/27/17 08:11 RDW 15.1 % (13.2-15.2) 03/27/17 08:11 Plt Count 156 K/mm3 (140-440) 03/27/17 08:11 Lymph % (Auto) 8.4 % (13.4-35.0) L 03/17/17 07:06 [place] % (Auto) 8.1 % (0.0-7.3) H 03/17/17 07:06 Eos % (Auto) 1.0 % (0.0-4.3) 03/17/17 07:06 Baso % (Auto) 0.7 % (0.0-1.8) 03/17/17 07:06 Lymph # 1.4 K/mm3 (1.2-5.4) 03/17/17 07:06 [place] # 1.3 K/mm3 (0.0-0.8) H 03/17/17 07:06 Eos # 0.2 K/mm3 (0.0-0.4) 03/17/17 07:06 Baso # 0.1 K/mm3 (0.0-0.1) 03/17/17 07:06 Add Manual Diff Complete 03/22/17 07:00 Total Counted 100 03/22/17 07:00 Seg Neutrophils % 81.8 % (40.0-70.0) H 03/17/17 07:06 Seg Neuts % (Manual) 94.0 % (40.0-70.0) H 03/22/17 07:00 Band Neutrophils % 1.0 % 03/22/17 07:00 Lymphocytes % (Manual) 0 % (13.4-35.0) L 03/22/17 07:00 Reactive Lymphs % (Man) 1.0 % 03/22/17 07:00 Monocytes % (Manual) 1.0 % (0.0-7.3) 03/22/17 07:00 Eosinophils % (Manual) 3.0 % (0.0-4.3) 03/22/17 07:00 Basophils % (Manual) 0 % (0.0-1.8) 03/22/17 07:00 Metamyelocytes % 0 % 03/22/17 07:00 Myelocytes % 0 % 03/22/17 07:00 Promyelocytes % 0 % 03/22/17 07:00 Blast Cells % 0 % 03/22/17 07:00 Nucleated RBC % Not Reportable 03/22/17 07:00 Seg Neutrophils # 13.6 K/mm3 (1.8-7.7) H 03/17/17 07:06 Seg Neutrophils # Man 23.3 K/mm3 (1.8-7.7) H 03/22/17 07:00 Band Neutrophils # 0.2 K/mm3 03/22/17 07:00 Lymphocytes # (Manual) 0.0 K/mm3 (1.2-5.4) L 03/22/17 07:00 Abs React Lymphs (Man) 0.2 K/mm3 03/22/17 07:00 Monocytes # (Manual) 0.2 K/mm3 (0.0-0.8) 03/22/17 07:00 Eosinophils # (Manual) 0.7 K/mm3 (0.0-0.4) H 03/22/17 07:00 Basophils # (Manual) 0.0 K/mm3 (0.0-0.1) 03/22/17 07:00 Metamyelocytes # 0.0 K/mm3 03/22/17 07:00 Myelocytes # 0.0 K/mm3 03/22/17 07:00 Promyelocytes # 0.0 K/mm3 03/22/17 07:00 Blast Cells # 0.0 K/mm3 03/22/17 07:00 WBC Morphology Not Reportable 03/22/17 07:00 Hypersegmented Neuts Not Reportable 03/22/17 07:00 Hyposegmented Neuts Not Reportable 03/22/17 07:00 Hypogranular Neuts Not Reportable 03/22/17 07:00 Smudge Cells Not Reportable 03/22/17 07:00 Toxic Granulation Not Reportable 03/22/17 07:00 Toxic Vacuolation Not Reportable 03/22/17 07:00 Dohle Bodies Not Reportable 03/22/17 07:00 Pelger-Huet Anomaly Not Reportable 03/22/17 07:00 Marco Rods Not Reportable 03/22/17 07:00 Platelet Estimate Cons 03/22/17 07:00 Clumped Platelets Not Reportable 03/22/17 07:00 Plt Clumps, EDTA Not Reportable 03/22/17 07:00 Large Platelets Not Reportable 03/22/17 07:00 Giant Platelets Not Reportable 03/22/17 07:00 Platelet Satelliting Not Reportable 03/22/17 07:00 Plt Morphology Comment Not Reportable 03/22/17 07:00 RBC Morphology Not Reportable 03/22/17 07:00 Dimorphic RBCs Not Reportable 03/22/17 07:00 Polychromasia Not Reportable 03/22/17 07:00 Hypochromasia Not Reportable 03/22/17 07:00 Poikilocytosis 2+ 03/22/17 07:00 Anisocytosis 1+ 03/22/17 07:00 Microcytosis Not Reportable 03/22/17 07:00 Macrocytosis Not Reportable 03/22/17 07:00 Spherocytes Not Reportable 03/22/17 07:00 Pappenheimer Bodies Not Reportable 03/22/17 07:00 Sickle Cells Not Reportable 03/22/17 07:00 Target Cells Not Reportable 03/22/17 07:00 Tear Drop Cells 2+ 03/22/17 07:00 Ovalocytes Not Reportable 03/22/17 07:00 Stomatocytes Few 03/05/17 07:03 Helmet Cells Not Reportable 03/22/17 07:00 [place] Bodies Not Reportable 03/22/17 07:00 [place] Rings Not Reportable 03/22/17 07:00 [place] Cells Not Reportable 03/22/17 07:00 Bite Cells Not Reportable 03/22/17 07:00 Crenated Cell Not Reportable 03/22/17 07:00 Elliptocytes Not Reportable 03/22/17 07:00 Acanthocytes (Spur) Not Reportable 03/22/17 07:00 Rouleaux Not Reportable 03/22/17 07:00 Hemoglobin C Crystals Not Reportable 03/22/17 07:00 Schistocytes Not Reportable 03/22/17 07:00 Malaria parasites Not Reportable 03/22/17 07:00 Nishant Bodies Not Reportable 03/22/17 07:00 Hem Pathologist Commnt No 03/22/17 07:00 PT 16.2 Sec. (12.2-14.9) H 03/22/17 08:40 INR 1.31 (0.87-1.13) H 03/22/17 08:40 APTT 68.9 Sec. (24.2-36.6) H* 03/22/17 08:40 Heparin Anti-Xa Level < 0.10 U.I./ml (0.3-0.7) L 03/27/17 08:11 POC ABG pH 7.393 (7.35-7.45) 03/27/17 04:46 POC ABG pCO2 31.4 (35-45) L 03/27/17 04:46 POC ABG pO2 102 (80-105) 03/27/17 04:46 POC ABG HCO3 19.1 03/27/17 04:46 POC ABG Total CO2 20 03/27/17 04:46 POC ABG O2 Sat 98 03/27/17 04:46 POC ABG Base Excess -6 03/27/17 04:46 FiO2 35 % 03/27/17 04:46 Sodium 132 mmol/L (137-145) L 03/27/17 04:00 Potassium 4.7 mmol/L (3.6-5.0) 03/27/17 04:00 Chloride 90.5 mmol/L (98-107) L 03/27/17 04:00 Carbon Dioxide 19 mmol/L (22-30) L 03/27/17 04:00 Anion Gap 27 mmol/L 03/27/17 04:00 BUN 95 mg/dL (9-20) H 03/27/17 04:00 Creatinine 6.7 mg/dL (0.8-1.5) H 03/27/17 04:00 Estimated GFR 9 ml/min 03/27/17 04:00 BUN/Creatinine Ratio 14.17 % 03/27/17 04:00 Glucose 110 mg/dL (75-100) H 03/27/17 04:00 POC Glucose 116 (70-105) H 03/27/17 05:06 Osmolality 324 Mosm/kg 03/21/17 21:55 Lactic Acid 1.50 mmol/L (0.7-2.0) 03/16/17 13:37 Uric Acid 7.3 mg/dL (3.5-7.6) 03/21/17 22:03 Calcium 8.5 mg/dL (8.4-10.2) 03/27/17 04:00 Phosphorus 4.60 mg/dL (2.5-4.5) H 03/06/17 04:50 Magnesium 1.60 mg/dL (1.7-2.3) L 03/19/17 06:55 Total Bilirubin 0.70 mg/dL (0.1-1.2) 03/22/17 04:30 AST 38 units/L (5-40) 03/22/17 04:30 ALT 21 units/L (7-56) 03/22/17 04:30 Alkaline Phosphatase 102 units/L (35-129) 03/22/17 04:30 Total Creatine Kinase 148 units/L (55-170) 02/27/17 13:08 CK-MB (CK-2) 4.7 ng/mL (0.0-4.0) H 02/27/17 13:08 CK-MB (CK-2) Rel Index 3.1 (0-4) 02/27/17 13:08 Troponin T < 0.010 ng/mL (0.00-0.029) 02/27/17 13:08 Total Protein 6.3 g/dL (6.3-8.2) 03/22/17 04:30 Albumin 1.8 g/dL (3.9-5) L 03/22/17 04:30 Albumin/Globulin Ratio 0.4 % 03/22/17 04:30 Triglycerides 111 mg/dL (2-149) 03/22/17 04:30 TSH 1.480 mlU/mL (0.270-4.200) 02/26/17 23:40 Free T4 1.16 ng/dL (0.76-1.46) 02/26/17 23:40 Urine Color Yellow (Yellow) 03/03/17 10:38 Urine Turbidity Clear (Clear) 03/03/17 10:38 Urine pH 5.0 (5.0-7.0) 03/03/17 10:38 Ur Specific [place] 1.012 (1.003-1.030) 03/03/17 10:38 Urine Protein <15 mg/dl mg/dL (Negative) 03/03/17 10:38 Urine Glucose (UA) Neg mg/dL (Negative) 03/03/17 10:38 Urine Ketones Neg mg/dL (Negative) 03/03/17 10:38 Urine Blood Lg (Negative) 03/03/17 10:38 Urine Nitrite Neg (Negative) 03/03/17 10:38 Urine Bilirubin Neg (Negative) 03/03/17 10:38 Urine Urobilinogen < 2.0 mg/dL (<2.0) 03/03/17 10:38 Ur Leukocyte Esterase Tr (Negative) 03/03/17 10:38 Urine WBC (Auto) 5.0 /HPF (0.0-6.0) 03/03/17 10:38 Urine RBC (Auto) 51.0 /HPF (0.0-6.0) 03/03/17 10:38 Urine Mucus Few /HPF 03/03/17 10:38 Random Vancomycin 24.1 ug/mL (0-40.0) 03/23/17 09:34 Plasma/Serum Alcohol 0.24 gm% (0-0.07) H 02/26/17 23:40 Hepatitis A IgM Ab Non-reactive (NonReactive) 03/23/17 17:20 Hep Bs Antigen Non-reactive (Negative) 03/23/17 17:20 Hep B Core IgM Ab Non-reactive (NonReactive) 03/23/17 17:20 Hepatitis C Antibody Non-reactive (NonReactive) 03/23/17 17:20
[2017-03-27] MEDS ORDERED: LOPRESSOR PO SCH (14:00)
[2017-03-27] MEDS: MERREM/NS 500 MG/50 ML 500 MG/50 ML BAG IV SCH (15:10)
[2017-03-27] MEDS: TYLENOL PO PRN (18:17)
[2017-03-27] MEDS: APRESOLINE PO SCH (20:36)
[2017-03-28] MEDS: NOVOLOG SUB-Q SCH ×4 (04:00→18:01)
[2017-03-28] MEDS: CARDIZEM PO SCH ×3 (06:22→18:02)
[2017-03-28 07:49] LABS: BUN/Creatinine Ratio 14.17; Calcium 9.1 mg/dL (8.4-10.2); Chloride 86.6 mmol/L (98-107); Potassium 5.3 mmol/L (3.6-5.0)
[2017-03-28] MEDS: DUONEB *Not for PRN Use IH SCH ×3 (08:06→21:00)
[2017-03-28] MEDS: APRESOLINE PO SCH ×3 (08:29→20:30)
[2017-03-28] MEDS: LOPRESSOR PO SCH ×3 (08:29→20:31)
--- NOTE | 2017-03-28 08:39 | Progress Note ---
Assessment and Plan Assessment and plan: Atrial fibrillation with rapid ventricular response. continue cardizem and metoprolol. Heparin resumed since hematuria resolved. Acute respiratory failure. Improving, extubated yesterday. Pulmonology following Acute metabolic encephalopathy,improving,awake,alert,follows commands. Gross hematuria 5 days ago, now resolved. Dr. Samuel, Urologist evaluated him. patient has history of non-obstructing stones both kidneys. Acute kidney injury. Creatinine 7.9 today . Dialysis managed per [place] Continue dialysis. UTI with klebsiella pneumonia. ESBL. Started on merrem. Contact isolation. Hyponatremia. DVT left lower ext. Heparin drip Full CODE STATUS History Interval history: patient with acute respiratory failure, Now extubated Hospitalist Physical - Physical exam Narrative exam: Gen appearance : Extubated, not in acute distress, obese HEENT: normocephalic, atraumatic Neck :no JVD Lungs: clear to auscultation bilaterally, no crackles ,or wheezes Heart:S1 and S2 regular, no murmurs no gallop Abdomen soft, non-tender, non-distended, normal bowel sounds Extremities: no edema, no clubbing, or cyanosis Neuro : Extubated, Awake, follows commands, moves all ext - Constitutional Vitals: Temp Pulse Resp BP Pulse Ox 98.8 F 80 24 135/98 96 03/28/17 03:43 03/28/17 08:29 03/28/17 08:17 03/28/17 08:29 03/28/17 08:18 General appearance: Present: mild distress, well-nourished, other Results - Labs CBC & Chem 7: 03/28/17 11:50 03/28/17 07:00 Labs: Laboratory Last Values WBC 24.7 K/mm3 (4.5-11.0) H 03/27/17 08:11 RBC 3.68 M/mm3 (3.65-5.03) 03/27/17 08:11 Hgb 11.5 gm/dl (11.8-15.2) L 03/27/17 08:11 Hct 35.0 % (35.5-45.6) L 03/27/17 08:11 MCV 95 fl (84-94) H 03/27/17 08:11 MCH 31 pg (28-32) 03/27/17 08:11 MCHC 33 % (32-34) 03/27/17 08:11 RDW 15.1 % (13.2-15.2) 03/27/17 08:11 Plt Count 156 K/mm3 (140-440) 03/27/17 08:11 Lymph % (Auto) 8.4 % (13.4-35.0) L 03/17/17 07:06 [place] % (Auto) 8.1 % (0.0-7.3) H 03/17/17 07:06 Eos % (Auto) 1.0 % (0.0-4.3) 03/17/17 07:06 Baso % (Auto) 0.7 % (0.0-1.8) 03/17/17 07:06 Lymph # 1.4 K/mm3 (1.2-5.4) 03/17/17 07:06 [place] # 1.3 K/mm3 (0.0-0.8) H 03/17/17 07:06 Eos # 0.2 K/mm3 (0.0-0.4) 03/17/17 07:06 Baso # 0.1 K/mm3 (0.0-0.1) 03/17/17 07:06 Add Manual Diff Complete 03/22/17 07:00 Total Counted 100 03/22/17 07:00 Seg Neutrophils % 81.8 % (40.0-70.0) H 03/17/17 07:06 Seg Neuts % (Manual) 94.0 % (40.0-70.0) H 03/22/17 07:00 Band Neutrophils % 1.0 % 03/22/17 07:00 Lymphocytes % (Manual) 0 % (13.4-35.0) L 03/22/17 07:00 Reactive Lymphs % (Man) 1.0 % 03/22/17 07:00 Monocytes % (Manual) 1.0 % (0.0-7.3) 03/22/17 07:00 Eosinophils % (Manual) 3.0 % (0.0-4.3) 03/22/17 07:00 Basophils % (Manual) 0 % (0.0-1.8) 03/22/17 07:00 Metamyelocytes % 0 % 03/22/17 07:00 Myelocytes % 0 % 03/22/17 07:00 Promyelocytes % 0 % 03/22/17 07:00 Blast Cells % 0 % 03/22/17 07:00 Nucleated RBC % Not Reportable 03/22/17 07:00 Seg Neutrophils # 13.6 K/mm3 (1.8-7.7) H 03/17/17 07:06 Seg Neutrophils # Man 23.3 K/mm3 (1.8-7.7) H 03/22/17 07:00 Band Neutrophils # 0.2 K/mm3 03/22/17 07:00 Lymphocytes # (Manual) 0.0 K/mm3 (1.2-5.4) L 03/22/17 07:00 Abs React Lymphs (Man) 0.2 K/mm3 03/22/17 07:00 Monocytes # (Manual) 0.2 K/mm3 (0.0-0.8) 03/22/17 07:00 Eosinophils # (Manual) 0.7 K/mm3 (0.0-0.4) H 03/22/17 07:00 Basophils # (Manual) 0.0 K/mm3 (0.0-0.1) 03/22/17 07:00 Metamyelocytes # 0.0 K/mm3 03/22/17 07:00 Myelocytes # 0.0 K/mm3 03/22/17 07:00 Promyelocytes # 0.0 K/mm3 03/22/17 07:00 Blast Cells # 0.0 K/mm3 03/22/17 07:00 WBC Morphology Not Reportable 03/22/17 07:00 Hypersegmented Neuts Not Reportable 03/22/17 07:00 Hyposegmented Neuts Not Reportable 03/22/17 07:00 Hypogranular Neuts Not Reportable 03/22/17 07:00 Smudge Cells Not Reportable 03/22/17 07:00 Toxic Granulation Not Reportable 03/22/17 07:00 Toxic Vacuolation Not Reportable 03/22/17 07:00 Dohle Bodies Not Reportable 03/22/17 07:00 Pelger-Huet Anomaly Not Reportable 03/22/17 07:00 Marco Rods Not Reportable 03/22/17 07:00 Platelet Estimate Cons 03/22/17 07:00 Clumped Platelets Not Reportable 03/22/17 07:00 Plt Clumps, EDTA Not Reportable 03/22/17 07:00 Large Platelets Not Reportable 03/22/17 07:00 Giant Platelets Not Reportable 03/22/17 07:00 Platelet Satelliting Not Reportable 03/22/17 07:00 Plt Morphology Comment Not Reportable 03/22/17 07:00 RBC Morphology Not Reportable 03/22/17 07:00 Dimorphic RBCs Not Reportable 03/22/17 07:00 Polychromasia Not Reportable 03/22/17 07:00 Hypochromasia Not Reportable 03/22/17 07:00 Poikilocytosis 2+ 03/22/17 07:00 Anisocytosis 1+ 03/22/17 07:00 Microcytosis Not Reportable 03/22/17 07:00 Macrocytosis Not Reportable 03/22/17 07:00 Spherocytes Not Reportable 03/22/17 07:00 Pappenheimer Bodies Not Reportable 03/22/17 07:00 Sickle Cells Not Reportable 03/22/17 07:00 Target Cells Not Reportable 03/22/17 07:00 Tear Drop Cells 2+ 03/22/17 07:00 Ovalocytes Not Reportable 03/22/17 07:00 Stomatocytes Few 03/05/17 07:03 Helmet Cells Not Reportable 03/22/17 07:00 [place] Bodies Not Reportable 03/22/17 07:00 [place] Rings Not Reportable 03/22/17 07:00 [place] Cells Not Reportable 03/22/17 07:00 Bite Cells Not Reportable 03/22/17 07:00 Crenated Cell Not Reportable 03/22/17 07:00 Elliptocytes Not Reportable 03/22/17 07:00 Acanthocytes (Spur) Not Reportable 03/22/17 07:00 Rouleaux Not Reportable 03/22/17 07:00 Hemoglobin C Crystals Not Reportable 03/22/17 07:00 Schistocytes Not Reportable 03/22/17 07:00 Malaria parasites Not Reportable 03/22/17 07:00 Nishant Bodies Not Reportable 03/22/17 07:00 Hem Pathologist Commnt No 03/22/17 07:00 PT 16.2 Sec. (12.2-14.9) H 03/22/17 08:40 INR 1.31 (0.87-1.13) H 03/22/17 08:40 APTT 68.9 Sec. (24.2-36.6) H* 03/22/17 08:40 Heparin Anti-Xa Level < 0.10 U.I./ml (0.3-0.7) L 03/27/17 08:11 POC ABG pH 7.393 (7.35-7.45) 03/27/17 04:46 POC ABG pCO2 31.4 (35-45) L 03/27/17 04:46 POC ABG pO2 102 (80-105) 03/27/17 04:46 POC ABG HCO3 19.1 03/27/17 04:46 POC ABG Total CO2 20 03/27/17 04:46 POC ABG O2 Sat 98 03/27/17 04:46 POC ABG Base Excess -6 03/27/17 04:46 FiO2 35 % 03/27/17 04:46 Sodium 131 mmol/L (137-145) L 03/28/17 07:00 Potassium 5.3 mmol/L (3.6-5.0) H 03/28/17 07:00 Chloride 86.6 mmol/L (98-107) L 03/28/17 07:00 Carbon Dioxide 17 mmol/L (22-30) L 03/28/17 07:00 Anion Gap 33 mmol/L 03/28/17 07:00 BUN 112 mg/dL (9-20) H 03/28/17 07:00 Creatinine 7.9 mg/dL (0.8-1.5) H 03/28/17 07:00 Estimated GFR 7 ml/min 03/28/17 07:00 BUN/Creatinine Ratio 14.17 % 03/28/17 07:00 Glucose 120 mg/dL (75-100) H 03/28/17 07:00 POC Glucose 110 (70-105) H 03/28/17 05:07 Osmolality 324 Mosm/kg 03/21/17 21:55 Lactic Acid 1.50 mmol/L (0.7-2.0) 03/16/17 13:37 Uric Acid 7.3 mg/dL (3.5-7.6) 03/21/17 22:03 Calcium 9.1 mg/dL (8.4-10.2) 03/28/17 07:00 Phosphorus 4.60 mg/dL (2.5-4.5) H 03/06/17 04:50 Magnesium 1.60 mg/dL (1.7-2.3) L 03/19/17 06:55 Total Bilirubin 0.70 mg/dL (0.1-1.2) 03/22/17 04:30 AST 38 units/L (5-40) 03/22/17 04:30 ALT 21 units/L (7-56) 03/22/17 04:30 Alkaline Phosphatase 102 units/L (35-129) 03/22/17 04:30 Total Creatine Kinase 148 units/L (55-170) 02/27/17 13:08 CK-MB (CK-2) 4.7 ng/mL (0.0-4.0) H 02/27/17 13:08 CK-MB (CK-2) Rel Index 3.1 (0-4) 02/27/17 13:08 Troponin T < 0.010 ng/mL (0.00-0.029) 02/27/17 13:08 Total Protein 6.3 g/dL (6.3-8.2) 03/22/17 04:30 Albumin 1.8 g/dL (3.9-5) L 03/22/17 04:30 Albumin/Globulin Ratio 0.4 % 03/22/17 04:30 Triglycerides 111 mg/dL (2-149) 03/22/17 04:30 TSH 1.480 mlU/mL (0.270-4.200) 02/26/17 23:40 Free T4 1.16 ng/dL (0.76-1.46) 02/26/17 23:40 Urine Color Yellow (Yellow) 03/03/17 10:38 Urine Turbidity Clear (Clear) 03/03/17 10:38 Urine pH 5.0 (5.0-7.0) 03/03/17 10:38 Ur Specific [place] 1.012 (1.003-1.030) 03/03/17 10:38 Urine Protein <15 mg/dl mg/dL (Negative) 03/03/17 10:38 Urine Glucose (UA) Neg mg/dL (Negative) 03/03/17 10:38 Urine Ketones Neg mg/dL (Negative) 03/03/17 10:38 Urine Blood Lg (Negative) 03/03/17 10:38 Urine Nitrite Neg (Negative) 03/03/17 10:38 Urine Bilirubin Neg (Negative) 03/03/17 10:38 Urine Urobilinogen < 2.0 mg/dL (<2.0) 03/03/17 10:38 Ur Leukocyte Esterase Tr (Negative) 03/03/17 10:38 Urine WBC (Auto) 5.0 /HPF (0.0-6.0) 03/03/17 10:38 Urine RBC (Auto) 51.0 /HPF (0.0-6.0) 03/03/17 10:38 Urine Mucus Few /HPF 03/03/17 10:38 Random Vancomycin 24.1 ug/mL (0-40.0) 03/23/17 09:34 Plasma/Serum Alcohol 0.24 gm% (0-0.07) H 02/26/17 23:40 Hepatitis A IgM Ab Non-reactive (NonReactive) 03/23/17 17:20 Hep Bs Antigen Non-reactive (Negative) 03/23/17 17:20 Hep B Core IgM Ab Non-reactive (NonReactive) 03/23/17 17:20 Hepatitis C Antibody Non-reactive (NonReactive) 03/23/17 17:20
[2017-03-28] MEDS ORDERED: SODIUM BICARBONATE FEEDTUBE PRN (09:11)
[2017-03-28] MEDS ORDERED: SIMPLE SYRUP FEEDTUBE PRN ×2 (09:11)
[2017-03-28] MEDS ORDERED: PANCREAZE DR 10,500 UNIT FEEDTUBE PRN (09:11)
--- NOTE | 2017-03-28 09:26 | Progress Note ---
Assessment and Plan - Patient Problems (1) KATHRIN (acute kidney injury) Current Visit: Yes Status: Acute Plan to address problem: worsening renal function, possible ATN. K-5.3, HD as ordered with UF as tolerated. Multiple comorbid conditions--prognosis guarded. Spoke with pt's nurse, notes reviewed (2) Acute respiratory failure Current Visit: Yes Status: Acute Qualifiers: Respiratory failure complication: hypoxia Qualified Code(s): J96.01 - Acute respiratory failure with hypoxia (3) Atrial fibrillation with RVR Current Visit: Yes Status: Acute (4) Cardiomyopathy Current Visit: Yes Status: Chronic Qualifiers: Cardiomyopathy type: C Plan to address problem: LVEF-30% (5) Leucocytosis Current Visit: Yes Status: Acute Qualifiers: Leukocytosis type: L (6) Encephalopathy Current Visit: Yes Status: Acute (7) UTI (urinary tract infection) Current Visit: Yes Status: Acute Qualifiers: Urinary tract infection type: U Hematuria presence: H Indwelling urinary catheter type: I Encounter type: E Plan to address problem: klebsiella UTI-adjust antibiotic dosing per renal function (8) Deep vein thrombosis (DVT) Current Visit: Yes Status: Acute Qualifiers: DVT location: lower extremity Affected thrombotic vein of extremity: A Chronicity: C Laterality: left Plan to address problem: DVT in LLE- on anticoagulation Subjective Date of service: 03/28/17 Principal diagnosis: afib Interval history: pt is lethargic, non communicative Objective - Vital Signs Vital signs: Vital Signs - 12hr 03/27/17 03/27/17 03/27/17 21:30 22:00 22:30 Temperature Pulse Rate 77 88 80 Pulse Rate [ Anterior Bilateral Throughout] Pulse Rate [ Apical] Pulse Rate [ From Monitor] Respiratory 24 25 H 18 Rate Respiratory Rate [Anterior Bilateral Throughout] Blood Pressure 137/78 126/90 126/92 O2 Sat by Pulse 91 93 95 Oximetry 03/27/17 03/27/17 03/27/17 23:00 23:25 23:30 Temperature Pulse Rate 88 92 H 96 H Pulse Rate [ Anterior Bilateral Throughout] Pulse Rate [ Apical] Pulse Rate [ From Monitor] Respiratory 20 20 20 Rate Respiratory Rate [Anterior Bilateral Throughout] Blood Pressure 133/89 126/92 142/92 O2 Sat by Pulse 93 97 93 Oximetry 03/27/17 03/28/17 03/28/17 23:40 00:00 00:30 Temperature 99.4 F Pulse Rate 77 84 87 Pulse Rate [ Anterior Bilateral Throughout] Pulse Rate [ 90 Apical] Pulse Rate [ 90 From Monitor] Respiratory 20 22 23 Rate Respiratory Rate [Anterior Bilateral Throughout] Blood Pressure 142/92 140/100 147/97 O2 Sat by Pulse 97 97 91 Oximetry 03/28/17 03/28/17 03/28/17 01:00 01:30 02:00 Temperature Pulse Rate 84 87 87 Pulse Rate [ Anterior Bilateral Throughout] Pulse Rate [ Apical] Pulse Rate [ From Monitor] Respiratory 23 22 23 Rate Respiratory Rate [Anterior Bilateral Throughout] Blood Pressure 149/105 148/106 153/99 O2 Sat by Pulse 92 94 92 Oximetry 03/28/17 03/28/17 03/28/17 02:30 03:00 03:30 Temperature Pulse Rate 82 86 85 Pulse Rate [ Anterior Bilateral Throughout] Pulse Rate [ Apical] Pulse Rate [ From Monitor] Respiratory 23 23 22 Rate Respiratory Rate [Anterior Bilateral Throughout] Blood Pressure 147/105 156/106 151/102 O2 Sat by Pulse 93 95 94 Oximetry 03/28/17 03/28/17 03/28/17 03:43 04:00 04:30 Temperature 98.8 F Pulse Rate 88 82 Pulse Rate [ Anterior Bilateral Throughout] Pulse Rate [ Apical] Pulse Rate [ From Monitor] Respiratory 24 23 Rate Respiratory Rate [Anterior Bilateral Throughout] Blood Pressure 145/99 149/105 O2 Sat by Pulse 92 93 Oximetry 03/28/17 03/28/17 03/28/17 05:00 05:30 06:00 Temperature Pulse Rate 82 80 84 Pulse Rate [ Anterior Bilateral Throughout] Pulse Rate [ Apical] Pulse Rate [ From Monitor] Respiratory 19 18 20 Rate Respiratory Rate [Anterior Bilateral Throughout] Blood Pressure 141/96 134/101 150/99 O2 Sat by Pulse 94 94 92 Oximetry 03/28/17 03/28/17 03/28/17 06:22 06:30 07:00 Temperature Pulse Rate 92 H 85 89 Pulse Rate [ Anterior Bilateral Throughout] Pulse Rate [ Apical] Pulse Rate [ From Monitor] Respiratory 24 20 Rate Respiratory Rate [Anterior Bilateral Throughout] Blood Pressure 150/99 148/100 155/102 O2 Sat by Pulse 92 93 Oximetry 03/28/17 03/28/17 03/28/17 07:30 08:00 08:06 Temperature 98.6 F Pulse Rate 89 86 Pulse Rate [ 83 Anterior Bilateral Throughout] Pulse Rate [ Apical] Pulse Rate [ From Monitor] Respiratory 21 20 Rate Respiratory 22 Rate [Anterior Bilateral Throughout] Blood Pressure 150/99 135/98 O2 Sat by Pulse 93 91 Oximetry 03/28/17 03/28/17 03/28/17 08:17 08:18 08:29 Temperature Pulse Rate 80 Pulse Rate [ 86 Anterior Bilateral Throughout] Pulse Rate [ Apical] Pulse Rate [ From Monitor] Respiratory Rate Respiratory 24 Rate [Anterior Bilateral Throughout] Blood Pressure 135/98 O2 Sat by Pulse 96 Oximetry 03/28/17 03/28/17 08:30 09:00 Temperature Pulse Rate 78 84 Pulse Rate [ Anterior Bilateral Throughout] Pulse Rate [ Apical] Pulse Rate [ From Monitor] Respiratory 21 21 Rate Respiratory Rate [Anterior Bilateral Throughout] Blood Pressure 135/98 137/89 O2 Sat by Pulse 96 93 Oximetry - General Appearance General appearance: well-developed, chronically ill EENT: mucous membranes moist Neck: no JVD Respiratory: Present: Decreased Breath Sounds Cardiology: irregular Gastrointestinal: normoactive bowel sounds Musculoskeletal: other (1+ edema) - Lab 03/27/17 08:11 03/28/17 07:00 Most recent lab results Calcium 9.1 mg/dL (8.4-10.2) 03/28/17 07:00 Phosphorus 4.60 mg/dL (2.5-4.5) H 03/06/17 04:50 Magnesium 1.60 mg/dL (1.7-2.3) L 03/19/17 06:55
[2017-03-28] MEDS ORDERED: NACL 0.9% 1,000 ML IV PRN (09:31)
[2017-03-28] MEDS: FOLVITE PO SCH (09:45)
[2017-03-28] MEDS: PROTONIX PO SCH (09:45)
[2017-03-28] MEDS: VITAMIN B-1 PO SCH (09:45)
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
[2017-03-28] MEDS ORDERED: NACL 0.9% 1000 ML 2,000 ML ONE (11:28)
[2017-03-28 12:05] LABS: Hematocrit 33.2 % (35.5-45.6); Hemoglobin 10.8 gm/dl (11.8-15.2); Mean Corpuscular HGB Conc 33 % (32-34); Mean Corpuscular Hemoglobin 32 pg (28-32); Mean Corpuscular Volume 97 fl (84-94); Platelet Count 154 K/mm3 (140-440); Red Blood Count 3.42 M/mm3 (3.65-5.03); Red Cell Distribution Width 15.4 % (13.2-15.2)
[2017-03-28 12:11] LABS: White Blood Count 26.6 K/mm3 (4.5-11.0)
--- NOTE | 2017-03-28 12:30 | Progress Note ---
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 35 H BUN 31 H Creatinine Glucose 132 H POC Glucose 147 H 138 H Calcium Phosphorus Magnesium Total Bilirubin AST Total Creatine Kinase CK-MB (CK-2) Total Protein Albumin 03/17/17 03/17/17 03/17/17 07:06 07:14 12:35 WBC 16.6 H RBC Hgb 15.6 H Hct 47.5 H MCV 99 H MCH 33 H MCHC RDW Plt Count Lymph % (Auto) 8.4 L [place] % (Auto) 8.1 H [place] # 1.3 H Seg Neutrophils % 81.8 H Seg Neuts % (Manual) Lymphocytes % (Manual) Monocytes % (Manual) Seg Neutrophils # 13.6 H Seg Neutrophils # Man Lymphocytes # (Manual) Monocytes # (Manual) Eosinophils # (Manual) PT INR APTT Heparin Anti-Xa Level POC ABG pH POC ABG pCO2 POC ABG pO2 Sodium Potassium Chloride Carbon Dioxide BUN Creatinine Glucose POC Glucose 119 H 132 H Calcium Phosphorus Magnesium Total Bilirubin AST Total Creatine Kinase CK-MB (CK-2) Total Protein Albumin 03/18/17 03/18/17 03/18/17 05:05 06:15 06:15 WBC 15.8 H RBC Hgb 16.5 H Hct 49.3 H MCV 99 H MCH 33 H MCHC RDW Plt Count Lymph % (Auto) [place] % (Auto) [place] # Seg Neutrophils % Seg Neuts % (Manual) 88.0 H Lymphocytes % (Manual) 2.0 L Monocytes % (Manual) 8.0 H Seg Neutrophils # Seg Neutrophils # Man 13.9 H Lymphocytes # (Manual) 0.3 L Monocytes # (Manual) 1.3 H Eosinophils # (Manual) PT INR APTT Heparin Anti-Xa Level POC ABG pH POC ABG pCO2 72.9 H POC ABG pO2 168 H Sodium 147 H Potassium 3.5 L Chloride 95.3 L Carbon Dioxide 37 H BUN 29 H Creatinine Glucose 155 H POC Glucose Calcium Phosphorus Magnesium Total Bilirubin AST Total Creatine Kinase CK-MB (CK-2) Total Protein Albumin 03/18/17 03/18/17 03/18/17 08:27 11:24 11:31 WBC RBC Hgb Hct MCV MCH MCHC RDW Plt Count Lymph % (Auto) [place] % (Auto) [place] # Seg Neutrophils % Seg Neuts % (Manual) Lymphocytes % (Manual) Monocytes % (Manual) Seg Neutrophils # Seg Neutrophils # Man Lymphocytes # (Manual) Monocytes # (Manual) Eosinophils # (Manual) PT INR APTT Heparin Anti-Xa Level POC ABG pH 7.530 H POC ABG pCO2 POC ABG pO2 60 L Sodium Potassium Chloride Carbon Dioxide BUN Creatinine Glucose POC Glucose 123 H 176 H Calcium Phosphorus Magnesium Total Bilirubin AST Total Creatine Kinase CK-MB (CK-2) Total Protein Albumin 03/18/17 03/18/17 03/18/17 14:10 15:24 17:23 WBC RBC Hgb 15.4 H Hct 46.4 H MCV MCH MCHC RDW Plt Count Lymph % (Auto) [place] % (Auto) [place] # Seg Neutrophils % Seg Neuts % (Manual) Lymphocytes % (Manual) Monocytes % (Manual) Seg Neutrophils # Seg Neutrophils # Man Lymphocytes # (Manual) Monocytes # (Manual) Eosinophils # (Manual) PT INR APTT Heparin Anti-Xa Level POC ABG pH POC ABG pCO2 POC ABG pO2 Sodium Potassium Chloride 94.5 L Carbon Dioxide 33 H BUN 33 H Creatinine 1.6 H Glucose 241 H POC Glucose 244 H Calcium Phosphorus Magnesium Total Bilirubin AST Total Creatine Kinase CK-MB (CK-2) Total Protein Albumin 3.0 L 03/18/17 03/18/17 03/19/17 17:23 21:33 03:54 WBC 25.4 H RBC Hgb Hct MCV 98 H MCH MCHC RDW Plt Count Lymph % (Auto) [place] % (Auto) [place] # Seg Neutrophils % Seg Neuts % (Manual) 83.0 H Lymphocytes % (Manual) 4.5 L Monocytes % (Manual) 8.0 H Seg Neutrophils # Seg Neutrophils # Man 21.1 H Lymphocytes # (Manual) 1.1 L Monocytes # (Manual) 2.0 H Eosinophils # (Manual) PT 17.1 H INR 1.40 H APTT Heparin Anti-Xa Level POC ABG pH POC ABG pCO2 POC ABG pO2 Sodium Potassium Chloride Carbon Dioxide BUN Creatinine Glucose POC Glucose 164 H Calcium Phosphorus Magnesium Total Bilirubin AST Total Creatine Kinase CK-MB (CK-2) Total Protein Albumin 03/19/17 03/19/17 03/19/17 03:54 06:55 06:55 WBC RBC Hgb Hct MCV MCH MCHC RDW Plt Count Lymph % (Auto) [place] % (Auto) [place] # Seg Neutrophils % Seg Neuts % (Manual) Lymphocytes % (Manual) Monocytes % (Manual) Seg Neutrophils # Seg Neutrophils # Man Lymphocytes # (Manual) Monocytes # (Manual) Eosinophils # (Manual) PT INR APTT Heparin Anti-Xa Level 0.29 L POC ABG pH POC ABG pCO2 POC ABG pO2 Sodium 146 H Potassium 3.4 L Chloride 97.8 L Carbon Dioxide 33 H BUN 30 H Creatinine Glucose 134 H POC Glucose Calcium Phosphorus Magnesium 1.60 L Total Bilirubin AST Total Creatine Kinase CK-MB (CK-2) Total Protein Albumin 03/19/17 03/19/17 03/19/17 08:01 12:56 14:54 WBC RBC Hgb Hct MCV MCH MCHC RDW Plt Count Lymph % (Auto) [place] % (Auto) [place] # Seg Neutrophils % Seg Neuts % (Manual) Lymphocytes % (Manual) Monocytes % (Manual) Seg Neutrophils # Seg Neutrophils # Man Lymphocytes # (Manual) Monocytes # (Manual) Eosinophils # (Manual) PT INR APTT Heparin Anti-Xa Level POC ABG pH POC ABG pCO2 57.8 H POC ABG pO2 71 L Sodium Potassium Chloride Carbon Dioxide BUN Creatinine Glucose POC Glucose 139 H 167 H Calcium Phosphorus Magnesium Total Bilirubin AST Total Creatine Kinase CK-MB (CK-2) Total Protein Albumin 03/19/17 03/19/17 03/20/17 15:53 21:04 03:36 WBC RBC Hgb 15.3 H Hct 48.1 H MCV MCH MCHC RDW Plt Count Lymph % (Auto) [place] % (Auto) [place] # Seg Neutrophils % Seg Neuts % (Manual) Lymphocytes % (Manual) Monocytes % (Manual) Seg Neutrophils # Seg Neutrophils # Man Lymphocytes # (Manual) Monocytes # (Manual) Eosinophils # (Manual) PT INR APTT Heparin Anti-Xa Level POC ABG pH POC ABG pCO2 POC ABG pO2 Sodium Potassium Chloride Carbon Dioxide BUN Creatinine Glucose POC Glucose 172 H 159 H Calcium Phosphorus Magnesium Total Bilirubin AST Total Creatine Kinase CK-MB (CK-2) Total Protein Albumin 03/20/17 03/20/17 03/20/17 07:45 12:02 14:07 WBC RBC Hgb Hct MCV MCH MCHC RDW Plt Count Lymph % (Auto) [place] % (Auto) [place] # Seg Neutrophils % Seg Neuts % (Manual) Lymphocytes % (Manual) Monocytes % (Manual) Seg Neutrophils # Seg Neutrophils # Man Lymphocytes # (Manual) Monocytes # (Manual) Eosinophils # (Manual) PT INR APTT Heparin Anti-Xa Level POC ABG pH 7.312 L POC ABG pCO2 68.3 H POC ABG pO2 47 L Sodium Potassium Chloride Carbon Dioxide BUN Creatinine Glucose POC Glucose 160 H 142 H Calcium Phosphorus Magnesium Total Bilirubin AST Total Creatine Kinase CK-MB (CK-2) Total Protein Albumin 03/20/17 03/20/17 03/20/17 15:57 15:59 19:50 WBC RBC Hgb Hct MCV MCH MCHC RDW Plt Count Lymph % (Auto) [place] % (Auto) [place] # Seg Neutrophils % Seg Neuts % (Manual) Lymphocytes % (Manual) Monocytes % (Manual) Seg Neutrophils # Seg Neutrophils # Man Lymphocytes # (Manual) Monocytes # (Manual) Eosinophils # (Manual) PT INR APTT Heparin Anti-Xa Level POC ABG pH 7.214 L POC ABG pCO2 82.8 H 58.7 H POC ABG pO2 69 L Sodium Potassium Chloride Carbon Dioxide BUN Creatinine Glucose POC Glucose 149 H Calcium Phosphorus Magnesium Total Bilirubin AST Total Creatine Kinase CK-MB (CK-2) Total Protein Albumin 03/20/17 03/20/17 03/21/17 21:19 23:34 04:18 WBC RBC Hgb Hct MCV MCH MCHC RDW Plt Count Lymph % (Auto) [place] % (Auto) [place] # Seg Neutrophils % Seg Neuts % (Manual) Lymphocytes % (Manual) Monocytes % (Manual) Seg Neutrophils # Seg Neutrophils # Man Lymphocytes # (Manual) Monocytes # (Manual) Eosinophils # (Manual) PT INR APTT Heparin Anti-Xa Level 0.20 L POC ABG pH POC ABG pCO2 48.6 H POC ABG pO2 79 L Sodium Potassium Chloride Carbon Dioxide BUN Creatinine Glucose POC Glucose 206 H Calcium Phosphorus Magnesium Total Bilirubin AST Total Creatine Kinase CK-MB (CK-2) Total Protein Albumin 03/21/17 03/21/17 03/21/17 04:21 04:21 05:23 WBC RBC Hgb Hct MCV MCH MCHC RDW Plt Count Lymph % (Auto) [place] % (Auto) [place] # Seg Neutrophils % Seg Neuts % (Manual) Lymphocytes % (Manual) Monocytes % (Manual) Seg Neutrophils # Seg Neutrophils # Man Lymphocytes # (Manual) Monocytes # (Manual) Eosinophils # (Manual) PT INR APTT Heparin Anti-Xa Level 0.24 L POC ABG pH POC ABG pCO2 POC ABG pO2 Sodium 147 H Potassium Chloride Carbon Dioxide BUN 42 H Creatinine 2.6 H D Glucose 209 H POC Glucose 181 H Calcium 7.9 L Phosphorus Magnesium Total Bilirubin AST Total Creatine Kinase CK-MB (CK-2) Total Protein Albumin 03/21/17 03/21/17 03/21/17 13:16 13:16 14:43 WBC 27.8 H RBC Hgb Hct MCV 101 H D MCH MCHC RDW Plt Count Lymph % (Auto) [place] % (Auto) [place] # Seg Neutrophils % Seg Neuts % (Manual) 76.0 H Lymphocytes % (Manual) 7.0 L Monocytes % (Manual) Seg Neutrophils # Seg Neutrophils # Man 21.1 H Lymphocytes # (Manual) Monocytes # (Manual) 1.1 H Eosinophils # (Manual) PT INR APTT Heparin Anti-Xa Level 0.25 L POC ABG pH 7.474 H POC ABG pCO2 POC ABG pO2 59 L Sodium Potassium Chloride Carbon Dioxide BUN Creatinine Glucose POC Glucose Calcium Phosphorus Magnesium Total Bilirubin AST Total Creatine Kinase CK-MB (CK-2) Total Protein Albumin 03/21/17 03/21/17 03/21/17 17:00 18:20 23:40 WBC RBC Hgb Hct MCV MCH MCHC RDW Plt Count Lymph % (Auto) [place] % (Auto) [place] # Seg Neutrophils % Seg Neuts % (Manual) Lymphocytes % (Manual) Monocytes % (Manual) Seg Neutrophils # Seg Neutrophils # Man Lymphocytes # (Manual) Monocytes # (Manual) Eosinophils # (Manual) PT INR APTT Heparin Anti-Xa Level POC ABG pH POC ABG pCO2 POC ABG pO2 Sodium Potassium Chloride Carbon Dioxide BUN 48 H Creatinine 3.2 H Glucose 135 H POC Glucose 152 H 136 H Calcium 6.8 L Phosphorus Magnesium Total Bilirubin AST Total Creatine Kinase CK-MB (CK-2) Total Protein 5.3 L D Albumin 1.7 L 03/22/17 03/22/17 03/22/17 04:30 04:30 04:30 WBC 29.3 H RBC Hgb Hct MCV 100 H MCH MCHC 31 L RDW 15.3 H Plt Count Lymph % (Auto) [place] % (Auto) [place] # Seg Neutrophils % Seg Neuts % (Manual) Lymphocytes % (Manual) Monocytes % (Manual) Seg Neutrophils # Seg Neutrophils # Man Lymphocytes # (Manual) Monocytes # (Manual) Eosinophils # (Manual) PT INR APTT Heparin Anti-Xa Level 0.29 L POC ABG pH POC ABG pCO2 POC ABG pO2 Sodium Potassium Chloride Carbon Dioxide BUN 60 H Creatinine 4.3 H Glucose 118 H POC Glucose Calcium 8.2 L D Phosphorus Magnesium Total Bilirubin AST Total Creatine Kinase CK-MB (CK-2) Total Protein Albumin 1.8 L 03/22/17 03/22/17 03/22/17 05:08 07:00 07:00 WBC 24.8 H RBC Hgb Hct MCV 100 H MCH MCHC RDW Plt Count Lymph % (Auto) [place] % (Auto) [place] # Seg Neutrophils % Seg Neuts % (Manual) 94.0 H Lymphocytes % (Manual) 0 L Monocytes % (Manual) Seg Neutrophils # Seg Neutrophils # Man 23.3 H Lymphocytes # (Manual) 0.0 L Monocytes # (Manual) Eosinophils # (Manual) 0.7 H PT INR APTT Heparin Anti-Xa Level POC ABG pH POC ABG pCO2 POC ABG pO2 Sodium 147 H Potassium Chloride 109.2 H Carbon Dioxide BUN 58 H Creatinine 4.1 H Glucose 117 H POC Glucose 124 H Calcium 7.4 L Phosphorus Magnesium Total Bilirubin AST Total Creatine Kinase CK-MB (CK-2) Total Protein Albumin 03/22/17 03/22/17 03/22/17 08:40 11:37 14:30 WBC RBC Hgb Hct MCV MCH MCHC RDW Plt Count Lymph % (Auto) [place] % (Auto) [place] # Seg Neutrophils % Seg Neuts % (Manual) Lymphocytes % (Manual) Monocytes % (Manual) Seg Neutrophils # Seg Neutrophils # Man Lymphocytes # (Manual) Monocytes # (Manual) Eosinophils # (Manual) PT 16.2 H INR 1.31 H APTT 68.9 H* Heparin Anti-Xa Level < 0.10 L POC ABG pH POC ABG pCO2 POC ABG pO2 Sodium Potassium Chloride Carbon Dioxide BUN Creatinine Glucose POC Glucose 159 H Calcium Phosphorus Magnesium Total Bilirubin AST Total Creatine Kinase CK-MB (CK-2) Total Protein Albumin 03/22/17 03/22/17 03/22/17 17:53 21:44 23:54 WBC RBC Hgb 11.6 L Hct 33.1 L MCV MCH MCHC RDW Plt Count Lymph % (Auto) [place] % (Auto) [place] # Seg Neutrophils % Seg Neuts % (Manual) Lymphocytes % (Manual) Monocytes % (Manual) Seg Neutrophils # Seg Neutrophils # Man Lymphocytes # (Manual) Monocytes # (Manual) Eosinophils # (Manual) PT INR APTT Heparin Anti-Xa Level POC ABG pH POC ABG pCO2 POC ABG pO2 Sodium Potassium Chloride Carbon Dioxide BUN Creatinine Glucose POC Glucose 142 H 131 H Calcium Phosphorus Magnesium Total Bilirubin AST Total Creatine Kinase CK-MB (CK-2) Total Protein Albumin 03/23/17 03/23/17 03/23/17 04:08 05:29 06:34 WBC RBC Hgb Hct MCV MCH MCHC RDW Plt Count Lymph % (Auto) [place] % (Auto) [place] # Seg Neutrophils % Seg Neuts % (Manual) Lymphocytes % (Manual) Monocytes % (Manual) Seg Neutrophils # Seg Neutrophils # Man Lymphocytes # (Manual) Monocytes # (Manual) Eosinophils # (Manual) PT INR APTT Heparin Anti-Xa Level POC ABG pH POC ABG pCO2 POC ABG pO2 75 L Sodium Potassium Chloride Carbon Dioxide 21 L BUN 85 H Creatinine 6.0 H Glucose 134 H POC Glucose 134 H Calcium 8.1 L Phosphorus Magnesium Total Bilirubin AST Total Creatine Kinase CK-MB (CK-2) Total Protein Albumin 03/23/17 03/23/17 03/23/17 12:09 17:20 17:52 WBC RBC Hgb Hct MCV MCH MCHC RDW Plt Count Lymph % (Auto) [place] % (Auto) [place] # Seg Neutrophils % Seg Neuts % (Manual) Lymphocytes % (Manual) Monocytes % (Manual) Seg Neutrophils # Seg Neutrophils # Man Lymphocytes # (Manual) Monocytes # (Manual) Eosinophils # (Manual) PT INR APTT Heparin Anti-Xa Level 1.39 H POC ABG pH POC ABG pCO2 POC ABG pO2 Sodium Potassium Chloride Carbon Dioxide BUN Creatinine Glucose POC Glucose 133 H 151 H Calcium Phosphorus Magnesium Total Bilirubin AST Total Creatine Kinase CK-MB (CK-2) Total Protein Albumin 03/23/17 03/24/17 03/24/17 23:59 03:15 03:15 WBC 23.9 H RBC 3.58 L Hgb 11.6 L Hct 34.6 L MCV 97 H D MCH MCHC RDW Plt Count 122 L Lymph % (Auto) [place] % (Auto) [place] # Seg Neutrophils % Seg Neuts % (Manual) Lymphocytes % (Manual) Monocytes % (Manual) Seg Neutrophils # Seg Neutrophils # Man Lymphocytes # (Manual) Monocytes # (Manual) Eosinophils # (Manual) PT INR APTT Heparin Anti-Xa Level POC ABG pH POC ABG pCO2 POC ABG pO2 Sodium 135 L Potassium Chloride 95.0 L Carbon Dioxide BUN 71 H Creatinine 5.2 H Glucose 123 H POC Glucose 124 H Calcium 8.0 L Phosphorus Magnesium Total Bilirubin AST Total Creatine Kinase CK-MB (CK-2) Total Protein Albumin 03/24/17 03/24/17 03/24/17 03:15 04:53 11:58 WBC RBC Hgb Hct MCV MCH MCHC RDW Plt Count Lymph % (Auto) [place] % (Auto) [place] # Seg Neutrophils % Seg Neuts % (Manual) Lymphocytes % (Manual) Monocytes % (Manual) Seg Neutrophils # Seg Neutrophils # Man Lymphocytes # (Manual) Monocytes # (Manual) Eosinophils # (Manual) PT INR APTT Heparin Anti-Xa Level 0.20 L POC ABG pH POC ABG pCO2 POC ABG pO2 72 L Sodium Potassium Chloride Carbon Dioxide BUN Creatinine Glucose POC Glucose 121 H Calcium Phosphorus Magnesium Total Bilirubin AST Total Creatine Kinase CK-MB (CK-2) Total Protein Albumin 03/24/17 03/25/17 03/25/17 18:16 00:24 05:30 WBC RBC Hgb Hct MCV MCH MCHC RDW Plt Count Lymph % (Auto) [place] % (Auto) [place] # Seg Neutrophils % Seg Neuts % (Manual) Lymphocytes % (Manual) Monocytes % (Manual) Seg Neutrophils # Seg Neutrophils # Man Lymphocytes # (Manual) Monocytes # (Manual) Eosinophils # (Manual) PT INR APTT Heparin Anti-Xa Level POC ABG pH POC ABG pCO2 34.2 L POC ABG pO2 Sodium Potassium Chloride Carbon Dioxide BUN Creatinine Glucose POC Glucose 117 H 107 H Calcium Phosphorus Magnesium Total Bilirubin AST Total Creatine Kinase CK-MB (CK-2) Total Protein Albumin 03/25/17 03/25/17 03/25/17 05:35 11:45 16:48 WBC RBC Hgb Hct MCV MCH MCHC RDW Plt Count Lymph % (Auto) [place] % (Auto) [place] # Seg Neutrophils % Seg Neuts % (Manual) Lymphocytes % (Manual) Monocytes % (Manual) Seg Neutrophils # Seg Neutrophils # Man Lymphocytes # (Manual) Monocytes # (Manual) Eosinophils # (Manual) PT INR APTT Heparin Anti-Xa Level POC ABG pH POC ABG pCO2 POC ABG pO2 Sodium 132 L Potassium Chloride 92.0 L Carbon Dioxide 20 L BUN 102 H Creatinine 7.2 H Glucose 101 H POC Glucose 127 H 114 H Calcium 8.3 L Phosphorus Magnesium Total Bilirubin AST Total Creatine Kinase CK-MB (CK-2) Total Protein Albumin 03/26/17 03/26/17 03/26/17 00:17 04:15 04:15 WBC 21.1 H RBC 3.52 L Hgb 11.0 L Hct 33.2 L MCV 95 H MCH MCHC RDW Plt Count 121 L Lymph % (Auto) [place] % (Auto) [place] # Seg Neutrophils % Seg Neuts % (Manual) Lymphocytes % (Manual) Monocytes % (Manual) Seg Neutrophils # Seg Neutrophils # Man Lymphocytes # (Manual) Monocytes # (Manual) Eosinophils # (Manual) PT INR APTT Heparin Anti-Xa Level POC ABG pH POC ABG pCO2 POC ABG pO2 Sodium 133 L Potassium Chloride 92.9 L Carbon Dioxide 21 L BUN 77 H Creatinine 5.4 H Glucose 115 H POC Glucose 114 H Calcium 8.1 L Phosphorus Magnesium Total Bilirubin AST Total Creatine Kinase CK-MB (CK-2) Total Protein Albumin 03/26/17 03/26/17 03/26/17 04:49 11:36 23:29 WBC RBC Hgb Hct MCV MCH MCHC RDW Plt Count Lymph % (Auto) [place] % (Auto) [place] # Seg Neutrophils % Seg Neuts % (Manual) Lymphocytes % (Manual) Monocytes % (Manual) Seg Neutrophils # Seg Neutrophils # Man Lymphocytes # (Manual) Monocytes # (Manual) Eosinophils # (Manual) PT INR APTT Heparin Anti-Xa Level POC ABG pH POC ABG pCO2 POC ABG pO2 Sodium Potassium Chloride Carbon Dioxide BUN Creatinine Glucose POC Glucose 127 H 123 H 125 H Calcium Phosphorus Magnesium Total Bilirubin AST Total Creatine Kinase CK-MB (CK-2) Total Protein Albumin 03/27/17 03/27/17 03/27/17 04:00 04:46 05:06 WBC RBC Hgb Hct MCV MCH MCHC RDW Plt Count Lymph % (Auto) [place] % (Auto) [place] # Seg Neutrophils % Seg Neuts % (Manual) Lymphocytes % (Manual) Monocytes % (Manual) Seg Neutrophils # Seg Neutrophils # Man Lymphocytes # (Manual) Monocytes # (Manual) Eosinophils # (Manual) PT INR APTT Heparin Anti-Xa Level POC ABG pH POC ABG pCO2 31.4 L POC ABG pO2 Sodium 132 L Potassium Chloride 90.5 L Carbon Dioxide 19 L BUN 95 H Creatinine 6.7 H Glucose 110 H POC Glucose 116 H Calcium Phosphorus Magnesium Total Bilirubin AST Total Creatine Kinase CK-MB (CK-2) Total Protein Albumin 03/27/17 03/27/17 03/27/17 08:11 08:11 11:34 WBC 24.7 H RBC Hgb 11.5 L Hct 35.0 L MCV 95 H MCH MCHC RDW Plt Count Lymph % (Auto) [place] % (Auto) [place] # Seg Neutrophils % Seg Neuts % (Manual) Lymphocytes % (Manual) Monocytes % (Manual) Seg Neutrophils # Seg Neutrophils # Man Lymphocytes # (Manual) Monocytes # (Manual) Eosinophils # (Manual) PT INR APTT Heparin Anti-Xa Level < 0.10 L POC ABG pH POC ABG pCO2 POC ABG pO2 Sodium Potassium Chloride Carbon Dioxide BUN Creatinine Glucose POC Glucose 118 H Calcium Phosphorus Magnesium Total Bilirubin AST Total Creatine Kinase CK-MB (CK-2) Total Protein Albumin 03/27/17 03/27/17 03/28/17 16:44 23:59 05:07 WBC RBC Hgb Hct MCV MCH MCHC RDW Plt Count Lymph % (Auto) [place] % (Auto) [place] # Seg Neutrophils % Seg Neuts % (Manual) Lymphocytes % (Manual) Monocytes % (Manual) Seg Neutrophils # Seg Neutrophils # Man Lymphocytes # (Manual) Monocytes # (Manual) Eosinophils # (Manual) PT INR APTT Heparin Anti-Xa Level POC ABG pH POC ABG pCO2 POC ABG pO2 Sodium Potassium Chloride Carbon Dioxide BUN Creatinine Glucose POC Glucose 110 H 109 H 110 H Calcium Phosphorus Magnesium Total Bilirubin AST Total Creatine Kinase CK-MB (CK-2) Total Protein Albumin 03/28/17 03/28/17 07:00 11:50 WBC 26.6 H RBC 3.42 L Hgb 10.8 L Hct 33.2 L MCV 97 H MCH MCHC RDW 15.4 H Plt Count Lymph % (Auto) [place] % (Auto) [place] # Seg Neutrophils % Seg Neuts % (Manual) Lymphocytes % (Manual) Monocytes % (Manual) Seg Neutrophils # Seg Neutrophils # Man Lymphocytes # (Manual) Monocytes # (Manual) Eosinophils # (Manual) PT INR APTT Heparin Anti-Xa Level POC ABG pH POC ABG pCO2 POC ABG pO2 Sodium 131 L Potassium 5.3 H Chloride 86.6 L Carbon Dioxide 17 L BUN 112 H Creatinine 7.9 H Glucose 120 H POC Glucose Calcium Phosphorus Magnesium Total Bilirubin AST Total Creatine Kinase CK-MB (CK-2) Total Protein Albumin Chest x-ray: report reviewed
[2017-03-28] MEDS: MERREM/NS 500 MG/50 ML 500 MG/50 ML BAG IV SCH (14:18)
[2017-03-29] MEDS: CARDIZEM PO SCH ×4 (00:28→17:58)
[2017-03-29] MEDS: NOVOLOG SUB-Q SCH ×4 (00:29→17:56)
[2017-03-29] MEDS: HEPARIN/ 0.45% NACL-25,000 UNIT/500 ML 25,000 UNIT/500 ML BAG IV SCH (05:27)
[2017-03-29] MEDS: DUONEB *Not for PRN Use IH SCH ×3 (08:36→20:51)
[2017-03-29 08:39] LABS: Hematocrit 31.8 % (35.5-45.6); Hemoglobin 10.2 gm/dl (11.8-15.2); Mean Corpuscular HGB Conc 32 % (32-34); Mean Corpuscular Hemoglobin 31 pg (28-32); Mean Corpuscular Volume 97 fl (84-94); Platelet Count 177 K/mm3 (140-440); Red Blood Count 3.27 M/mm3 (3.65-5.03); Red Cell Distribution Width 15.3 % (13.2-15.2)
[2017-03-29 08:47] LABS: White Blood Count 27.6 K/mm3 (4.5-11.0)
[2017-03-29 08:50] LABS: Calcium 7.9 mg/dL (8.4-10.2); Chloride 87.5 mmol/L (98-107); Potassium 5.6 mmol/L (3.6-5.0)
--- NOTE | 2017-03-29 09:10 | Progress Note ---
Assessment and Plan - Patient Problems (1) KATHRIN (acute kidney injury) Current Visit: Yes Status: Acute Plan to address problem: worsening renal function, possible ATN. Multiple comorbid conditions--prognosis guarded. Spoke with pt's nurse, notes reviewed. Respiratory status worsening , ABGs reviewed- Resp.Acidosis. Discussed with - pulmonary- pt may need intubation. HD if pt is hemodynamically stable (2) Acute respiratory failure Current Visit: Yes Status: Acute Qualifiers: Respiratory failure complication: hypoxia Qualified Code(s): J96.01 - Acute respiratory failure with hypoxia (3) Atrial fibrillation with RVR Current Visit: Yes Status: Acute (4) Cardiomyopathy Current Visit: Yes Status: Chronic Qualifiers: Cardiomyopathy type: C (5) Leucocytosis Current Visit: Yes Status: Acute Qualifiers: Leukocytosis type: L Plan to address problem: adjust antibiotics per renal function (6) Encephalopathy Current Visit: Yes Status: Acute (7) UTI (urinary tract infection) Current Visit: Yes Status: Acute Qualifiers: Urinary tract infection type: U Hematuria presence: H Indwelling urinary catheter type: I Encounter type: E (8) Deep vein thrombosis (DVT) Current Visit: Yes Status: Acute Qualifiers: DVT location: lower extremity Affected thrombotic vein of extremity: A Chronicity: C Laterality: left (9) Hyperkalemia Current Visit: Yes Status: Acute Plan to address problem: kayexalate as ordered (10) Hyponatremia Current Visit: Yes Status: Acute Plan to address problem: check cortisol and TSH levels. Restrict free water intake Subjective Date of service: 03/29/17 Principal diagnosis: afib, EtOH abuse, morbid obesity, respiratory failure status post extubatio Interval history: pt is lethargic, non communicative, on BiPAP Objective - Vital Signs Vital signs: Vital Signs - 12hr 03/28/17 03/28/17 03/28/17 21:20 21:30 22:00 Temperature Pulse Rate 81 84 Pulse Rate [ 81 Anterior Bilateral Throughout] Pulse Rate [ From Monitor] Respiratory 20 19 Rate Respiratory 20 Rate [Anterior Bilateral Throughout] Respiratory 22 Rate [Right Wrist] Blood Pressure 101/74 94/64 O2 Sat by Pulse 96 93 Oximetry 03/28/17 03/28/17 03/28/17 22:14 22:30 22:40 Temperature Pulse Rate 85 78 Pulse Rate [ Anterior Bilateral Throughout] Pulse Rate [ From Monitor] Respiratory 18 19 Rate Respiratory Rate [Anterior Bilateral Throughout] Respiratory Rate [Right Wrist] Blood Pressure 94/64 94/64 O2 Sat by Pulse 96 96 96 Oximetry 03/28/17 03/28/17 03/29/17 23:00 23:30 00:00 Temperature 97.3 F L Pulse Rate 89 82 76 Pulse Rate [ Anterior Bilateral Throughout] Pulse Rate [ From Monitor] Respiratory 26 H 21 20 Rate Respiratory Rate [Anterior Bilateral Throughout] Respiratory Rate [Right Wrist] Blood Pressure 116/81 116/81 101/68 O2 Sat by Pulse 95 95 92 Oximetry 03/29/17 03/29/17 03/29/17 00:28 00:30 01:00 Temperature Pulse Rate 82 87 87 Pulse Rate [ Anterior Bilateral Throughout] Pulse Rate [ From Monitor] Respiratory 18 18 Rate Respiratory Rate [Anterior Bilateral Throughout] Respiratory Rate [Right Wrist] Blood Pressure 101/68 101/68 107/68 O2 Sat by Pulse 95 92 Oximetry 03/29/17 03/29/17 03/29/17 01:30 02:00 02:30 Temperature Pulse Rate 81 94 H 77 Pulse Rate [ Anterior Bilateral Throughout] Pulse Rate [ From Monitor] Respiratory 21 20 22 Rate Respiratory Rate [Anterior Bilateral Throughout] Respiratory Rate [Right Wrist] Blood Pressure 107/68 105/63 105/63 O2 Sat by Pulse 95 91 94 Oximetry 03/29/17 03/29/17 03/29/17 03:00 03:30 04:00 Temperature 97.5 F L Pulse Rate 78 81 84 Pulse Rate [ Anterior Bilateral Throughout] Pulse Rate [ From Monitor] Respiratory 24 24 19 Rate Respiratory Rate [Anterior Bilateral Throughout] Respiratory Rate [Right Wrist] Blood Pressure 105/63 103/66 100/60 O2 Sat by Pulse 93 94 92 Oximetry 03/29/17 03/29/17 03/29/17 04:30 05:00 05:26 Temperature Pulse Rate 82 75 82 Pulse Rate [ Anterior Bilateral Throughout] Pulse Rate [ From Monitor] Respiratory 20 19 Rate Respiratory Rate [Anterior Bilateral Throughout] Respiratory Rate [Right Wrist] Blood Pressure 100/60 113/68 113/68 O2 Sat by Pulse 93 93 Oximetry 03/29/17 03/29/17 03/29/17 05:30 06:00 06:30 Temperature Pulse Rate 89 80 85 Pulse Rate [ Anterior Bilateral Throughout] Pulse Rate [ From Monitor] Respiratory 22 21 21 Rate Respiratory Rate [Anterior Bilateral Throughout] Respiratory Rate [Right Wrist] Blood Pressure 113/68 106/63 106/63 O2 Sat by Pulse 93 91 93 Oximetry 03/29/17 03/29/17 03/29/17 07:00 07:30 08:00 Temperature 97.4 F L 97.4 F L Pulse Rate 74 78 87 Pulse Rate [ Anterior Bilateral Throughout] Pulse Rate [ 86 From Monitor] Respiratory 21 21 21 Rate Respiratory Rate [Anterior Bilateral Throughout] Respiratory Rate [Right Wrist] Blood Pressure 102/65 102/65 104/70 O2 Sat by Pulse 92 95 94 Oximetry 03/29/17 03/29/17 03/29/17 08:30 08:36 08:46 Temperature Pulse Rate 81 Pulse Rate [ 79 86 Anterior Bilateral Throughout] Pulse Rate [ From Monitor] Respiratory 26 H Rate Respiratory 25 H 26 H Rate [Anterior Bilateral Throughout] Respiratory Rate [Right Wrist] Blood Pressure 104/70 O2 Sat by Pulse 82 L Oximetry 03/29/17 08:55 Temperature Pulse Rate Pulse Rate [ 84 Anterior Bilateral Throughout] Pulse Rate [ From Monitor] Respiratory Rate Respiratory 21 Rate [Anterior Bilateral Throughout] Respiratory Rate [Right Wrist] Blood Pressure O2 Sat by Pulse Oximetry - General Appearance General appearance: chronically ill EENT: mucous membranes dry Neck: no JVD Respiratory: Present: Decreased Breath Sounds Cardiology: irregular Gastrointestinal: normoactive bowel sounds Musculoskeletal: other (1+ edema) - Lab 03/29/17 08:20 03/29/17 08:20 Most recent lab results Calcium 7.9 mg/dL (8.4-10.2) L 03/29/17 08:20 Phosphorus 4.60 mg/dL (2.5-4.5) H 03/06/17 04:50 Magnesium 1.60 mg/dL (1.7-2.3) L 03/19/17 06:55
[2017-03-29 10:15] LABS: ISTAT Base Excess -7; ISTAT HCO3 20.8; ISTAT PCO2 52.8 (35-45); ISTAT PH 7.204 (7.35-7.45); ISTAT PO2 57 (80-105); ISTAT SO2 82; ISTAT TCO2 22
[2017-03-29] MEDS: LOPRESSOR PO SCH ×3 (10:25→20:47)
[2017-03-29] MEDS: VITAMIN B-1 PO SCH (10:25)
[2017-03-29] MEDS: FOLVITE PO SCH (10:25)
[2017-03-29] MEDS: PROTONIX PO SCH (10:26)
[2017-03-29] MEDS: APRESOLINE PO SCH ×3 (10:27→20:46)
[2017-03-29 10:44] LABS: ISTAT Base Excess -5; ISTAT HCO3 21.2; ISTAT PCO2 42.6 (35-45); ISTAT PH 7.305 (7.35-7.45); ISTAT PO2 73 (80-105); ISTAT SO2 93; ISTAT TCO2 23
--- NOTE | 2017-03-29 10:46 | Progress Note ---
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 Lymphocytes % (Manual) 2.0 L Monocytes % (Manual) 8.0 H Seg Neutrophils # Seg Neutrophils # Man 13.9 H Lymphocytes # (Manual) 0.3 L Monocytes # (Manual) 1.3 H Eosinophils # (Manual) PT INR APTT Heparin Anti-Xa Level POC ABG pH POC ABG pCO2 72.9 H POC ABG pO2 168 H Sodium 147 H Potassium 3.5 L Chloride 95.3 L Carbon Dioxide 37 H BUN 29 H Creatinine Glucose 155 H POC Glucose Calcium Phosphorus Magnesium Total Bilirubin AST Total Creatine Kinase CK-MB (CK-2) Total Protein Albumin 03/18/17 03/18/17 03/18/17 08:27 11:24 11:31 WBC RBC Hgb Hct MCV MCH MCHC RDW Plt Count Lymph % (Auto) [place] % (Auto) [place] # Seg Neutrophils % Seg Neuts % (Manual) Lymphocytes % (Manual) Monocytes % (Manual) Seg Neutrophils # Seg Neutrophils # Man Lymphocytes # (Manual) Monocytes # (Manual) Eosinophils # (Manual) PT INR APTT Heparin Anti-Xa Level POC ABG pH 7.530 H POC ABG pCO2 POC ABG pO2 60 L Sodium Potassium Chloride Carbon Dioxide BUN Creatinine Glucose POC Glucose 123 H 176 H Calcium Phosphorus Magnesium Total Bilirubin AST Total Creatine Kinase CK-MB (CK-2) Total Protein Albumin 03/18/17 03/18/17 03/18/17 14:10 15:24 17:23 WBC RBC Hgb 15.4 H Hct 46.4 H MCV MCH MCHC RDW Plt Count Lymph % (Auto) [place] % (Auto) [place] # Seg Neutrophils % Seg Neuts % (Manual) Lymphocytes % (Manual) Monocytes % (Manual) Seg Neutrophils # Seg Neutrophils # Man Lymphocytes # (Manual) Monocytes # (Manual) Eosinophils # (Manual) PT INR APTT Heparin Anti-Xa Level POC ABG pH POC ABG pCO2 POC ABG pO2 Sodium Potassium Chloride 94.5 L Carbon Dioxide 33 H BUN 33 H Creatinine 1.6 H Glucose 241 H POC Glucose 244 H Calcium Phosphorus Magnesium Total Bilirubin AST Total Creatine Kinase CK-MB (CK-2) Total Protein Albumin 3.0 L 03/18/17 03/18/17 03/19/17 17:23 21:33 03:54 WBC 25.4 H RBC Hgb Hct MCV 98 H MCH MCHC RDW Plt Count Lymph % (Auto) [place] % (Auto) [place] # Seg Neutrophils % Seg Neuts % (Manual) 83.0 H Lymphocytes % (Manual) 4.5 L Monocytes % (Manual) 8.0 H Seg Neutrophils # Seg Neutrophils # Man 21.1 H Lymphocytes # (Manual) 1.1 L Monocytes # (Manual) 2.0 H Eosinophils # (Manual) PT 17.1 H INR 1.40 H APTT Heparin Anti-Xa Level POC ABG pH POC ABG pCO2 POC ABG pO2 Sodium Potassium Chloride Carbon Dioxide BUN Creatinine Glucose POC Glucose 164 H Calcium Phosphorus Magnesium Total Bilirubin AST Total Creatine Kinase CK-MB (CK-2) Total Protein Albumin 03/19/17 03/19/17 03/19/17 03:54 06:55 06:55 WBC RBC Hgb Hct MCV MCH MCHC RDW Plt Count Lymph % (Auto) [place] % (Auto) [place] # Seg Neutrophils % Seg Neuts % (Manual) Lymphocytes % (Manual) Monocytes % (Manual) Seg Neutrophils # Seg Neutrophils # Man Lymphocytes # (Manual) Monocytes # (Manual) Eosinophils # (Manual) PT INR APTT Heparin Anti-Xa Level 0.29 L POC ABG pH POC ABG pCO2 POC ABG pO2 Sodium 146 H Potassium 3.4 L Chloride 97.8 L Carbon Dioxide 33 H BUN 30 H Creatinine Glucose 134 H POC Glucose Calcium Phosphorus Magnesium 1.60 L Total Bilirubin AST Total Creatine Kinase CK-MB (CK-2) Total Protein Albumin 03/19/17 03/19/17 03/19/17 08:01 12:56 14:54 WBC RBC Hgb Hct MCV MCH MCHC RDW Plt Count Lymph % (Auto) [place] % (Auto) [place] # Seg Neutrophils % Seg Neuts % (Manual) Lymphocytes % (Manual) Monocytes % (Manual) Seg Neutrophils # Seg Neutrophils # Man Lymphocytes # (Manual) Monocytes # (Manual) Eosinophils # (Manual) PT INR APTT Heparin Anti-Xa Level POC ABG pH POC ABG pCO2 57.8 H POC ABG pO2 71 L Sodium Potassium Chloride Carbon Dioxide BUN Creatinine Glucose POC Glucose 139 H 167 H Calcium Phosphorus Magnesium Total Bilirubin AST Total Creatine Kinase CK-MB (CK-2) Total Protein Albumin 03/19/17 03/19/17 03/20/17 15:53 21:04 03:36 WBC RBC Hgb 15.3 H Hct 48.1 H MCV MCH MCHC RDW Plt Count Lymph % (Auto) [place] % (Auto) [place] # Seg Neutrophils % Seg Neuts % (Manual) Lymphocytes % (Manual) Monocytes % (Manual) Seg Neutrophils # Seg Neutrophils # Man Lymphocytes # (Manual) Monocytes # (Manual) Eosinophils # (Manual) PT INR APTT Heparin Anti-Xa Level POC ABG pH POC ABG pCO2 POC ABG pO2 Sodium Potassium Chloride Carbon Dioxide BUN Creatinine Glucose POC Glucose 172 H 159 H Calcium Phosphorus Magnesium Total Bilirubin AST Total Creatine Kinase CK-MB (CK-2) Total Protein Albumin 03/20/17 03/20/17 03/20/17 07:45 12:02 14:07 WBC RBC Hgb Hct MCV MCH MCHC RDW Plt Count Lymph % (Auto) [place] % (Auto) [place] # Seg Neutrophils % Seg Neuts % (Manual) Lymphocytes % (Manual) Monocytes % (Manual) Seg Neutrophils # Seg Neutrophils # Man Lymphocytes # (Manual) Monocytes # (Manual) Eosinophils # (Manual) PT INR APTT Heparin Anti-Xa Level POC ABG pH 7.312 L POC ABG pCO2 68.3 H POC ABG pO2 47 L Sodium Potassium Chloride Carbon Dioxide BUN Creatinine Glucose POC Glucose 160 H 142 H Calcium Phosphorus Magnesium Total Bilirubin AST Total Creatine Kinase CK-MB (CK-2) Total Protein Albumin 03/20/17 03/20/17 03/20/17 15:57 15:59 19:50 WBC RBC Hgb Hct MCV MCH MCHC RDW Plt Count Lymph % (Auto) [place] % (Auto) [place] # Seg Neutrophils % Seg Neuts % (Manual) Lymphocytes % (Manual) Monocytes % (Manual) Seg Neutrophils # Seg Neutrophils # Man Lymphocytes # (Manual) Monocytes # (Manual) Eosinophils # (Manual) PT INR APTT Heparin Anti-Xa Level POC ABG pH 7.214 L POC ABG pCO2 82.8 H 58.7 H POC ABG pO2 69 L Sodium Potassium Chloride Carbon Dioxide BUN Creatinine Glucose POC Glucose 149 H Calcium Phosphorus Magnesium Total Bilirubin AST Total Creatine Kinase CK-MB (CK-2) Total Protein Albumin 03/20/17 03/20/17 03/21/17 21:19 23:34 04:18 WBC RBC Hgb Hct MCV MCH MCHC RDW Plt Count Lymph % (Auto) [place] % (Auto) [place] # Seg Neutrophils % Seg Neuts % (Manual) Lymphocytes % (Manual) Monocytes % (Manual) Seg Neutrophils # Seg Neutrophils # Man Lymphocytes # (Manual) Monocytes # (Manual) Eosinophils # (Manual) PT INR APTT Heparin Anti-Xa Level 0.20 L POC ABG pH POC ABG pCO2 48.6 H POC ABG pO2 79 L Sodium Potassium Chloride Carbon Dioxide BUN Creatinine Glucose POC Glucose 206 H Calcium Phosphorus Magnesium Total Bilirubin AST Total Creatine Kinase CK-MB (CK-2) Total Protein Albumin 03/21/17 03/21/17 03/21/17 04:21 04:21 05:23 WBC RBC Hgb Hct MCV MCH MCHC RDW Plt Count Lymph % (Auto) [place] % (Auto) [place] # Seg Neutrophils % Seg Neuts % (Manual) Lymphocytes % (Manual) Monocytes % (Manual) Seg Neutrophils # Seg Neutrophils # Man Lymphocytes # (Manual) Monocytes # (Manual) Eosinophils # (Manual) PT INR APTT Heparin Anti-Xa Level 0.24 L POC ABG pH POC ABG pCO2 POC ABG pO2 Sodium 147 H Potassium Chloride Carbon Dioxide BUN 42 H Creatinine 2.6 H D Glucose 209 H POC Glucose 181 H Calcium 7.9 L Phosphorus Magnesium Total Bilirubin AST Total Creatine Kinase CK-MB (CK-2) Total Protein Albumin 03/21/17 03/21/17 03/21/17 13:16 13:16 14:43 WBC 27.8 H RBC Hgb Hct MCV 101 H D MCH MCHC RDW Plt Count Lymph % (Auto) [place] % (Auto) [place] # Seg Neutrophils % Seg Neuts % (Manual) 76.0 H Lymphocytes % (Manual) 7.0 L Monocytes % (Manual) Seg Neutrophils # Seg Neutrophils # Man 21.1 H Lymphocytes # (Manual) Monocytes # (Manual) 1.1 H Eosinophils # (Manual) PT INR APTT Heparin Anti-Xa Level 0.25 L POC ABG pH 7.474 H POC ABG pCO2 POC ABG pO2 59 L Sodium Potassium Chloride Carbon Dioxide BUN Creatinine Glucose POC Glucose Calcium Phosphorus Magnesium Total Bilirubin AST Total Creatine Kinase CK-MB (CK-2) Total Protein Albumin 03/21/17 03/21/17 03/21/17 17:00 18:20 23:40 WBC RBC Hgb Hct MCV MCH MCHC RDW Plt Count Lymph % (Auto) [place] % (Auto) [place] # Seg Neutrophils % Seg Neuts % (Manual) Lymphocytes % (Manual) Monocytes % (Manual) Seg Neutrophils # Seg Neutrophils # Man Lymphocytes # (Manual) Monocytes # (Manual) Eosinophils # (Manual) PT INR APTT Heparin Anti-Xa Level POC ABG pH POC ABG pCO2 POC ABG pO2 Sodium Potassium Chloride Carbon Dioxide BUN 48 H Creatinine 3.2 H Glucose 135 H POC Glucose 152 H 136 H Calcium 6.8 L Phosphorus Magnesium Total Bilirubin AST Total Creatine Kinase CK-MB (CK-2) Total Protein 5.3 L D Albumin 1.7 L 03/22/17 03/22/17 03/22/17 04:30 04:30 04:30 WBC 29.3 H RBC Hgb Hct MCV 100 H MCH MCHC 31 L RDW 15.3 H Plt Count Lymph % (Auto) [place] % (Auto) [place] # Seg Neutrophils % Seg Neuts % (Manual) Lymphocytes % (Manual) Monocytes % (Manual) Seg Neutrophils # Seg Neutrophils # Man Lymphocytes # (Manual) Monocytes # (Manual) Eosinophils # (Manual) PT INR APTT Heparin Anti-Xa Level 0.29 L POC ABG pH POC ABG pCO2 POC ABG pO2 Sodium Potassium Chloride Carbon Dioxide BUN 60 H Creatinine 4.3 H Glucose 118 H POC Glucose Calcium 8.2 L D Phosphorus Magnesium Total Bilirubin AST Total Creatine Kinase CK-MB (CK-2) Total Protein Albumin 1.8 L 03/22/17 03/22/17 03/22/17 05:08 07:00 07:00 WBC 24.8 H RBC Hgb Hct MCV 100 H MCH MCHC RDW Plt Count Lymph % (Auto) [place] % (Auto) [place] # Seg Neutrophils % Seg Neuts % (Manual) 94.0 H Lymphocytes % (Manual) 0 L Monocytes % (Manual) Seg Neutrophils # Seg Neutrophils # Man 23.3 H Lymphocytes # (Manual) 0.0 L Monocytes # (Manual) Eosinophils # (Manual) 0.7 H PT INR APTT Heparin Anti-Xa Level POC ABG pH POC ABG pCO2 POC ABG pO2 Sodium 147 H Potassium Chloride 109.2 H Carbon Dioxide BUN 58 H Creatinine 4.1 H Glucose 117 H POC Glucose 124 H Calcium 7.4 L Phosphorus Magnesium Total Bilirubin AST Total Creatine Kinase CK-MB (CK-2) Total Protein Albumin 03/22/17 03/22/17 03/22/17 08:40 11:37 14:30 WBC RBC Hgb Hct MCV MCH MCHC RDW Plt Count Lymph % (Auto) [place] % (Auto) [place] # Seg Neutrophils % Seg Neuts % (Manual) Lymphocytes % (Manual) Monocytes % (Manual) Seg Neutrophils # Seg Neutrophils # Man Lymphocytes # (Manual) Monocytes # (Manual) Eosinophils # (Manual) PT 16.2 H INR 1.31 H APTT 68.9 H* Heparin Anti-Xa Level < 0.10 L POC ABG pH POC ABG pCO2 POC ABG pO2 Sodium Potassium Chloride Carbon Dioxide BUN Creatinine Glucose POC Glucose 159 H Calcium Phosphorus Magnesium Total Bilirubin AST Total Creatine Kinase CK-MB (CK-2) Total Protein Albumin 03/22/17 03/22/17 03/22/17 17:53 21:44 23:54 WBC RBC Hgb 11.6 L Hct 33.1 L MCV MCH MCHC RDW Plt Count Lymph % (Auto) [place] % (Auto) [place] # Seg Neutrophils % Seg Neuts % (Manual) Lymphocytes % (Manual) Monocytes % (Manual) Seg Neutrophils # Seg Neutrophils # Man Lymphocytes # (Manual) Monocytes # (Manual) Eosinophils # (Manual) PT INR APTT Heparin Anti-Xa Level POC ABG pH POC ABG pCO2 POC ABG pO2 Sodium Potassium Chloride Carbon Dioxide BUN Creatinine Glucose POC Glucose 142 H 131 H Calcium Phosphorus Magnesium Total Bilirubin AST Total Creatine Kinase CK-MB (CK-2) Total Protein Albumin 03/23/17 03/23/17 03/23/17 04:08 05:29 06:34 WBC RBC Hgb Hct MCV MCH MCHC RDW Plt Count Lymph % (Auto) [place] % (Auto) [place] # Seg Neutrophils % Seg Neuts % (Manual) Lymphocytes % (Manual) Monocytes % (Manual) Seg Neutrophils # Seg Neutrophils # Man Lymphocytes # (Manual) Monocytes # (Manual) Eosinophils # (Manual) PT INR APTT Heparin Anti-Xa Level POC ABG pH POC ABG pCO2 POC ABG pO2 75 L Sodium Potassium Chloride Carbon Dioxide 21 L BUN 85 H Creatinine 6.0 H Glucose 134 H POC Glucose 134 H Calcium 8.1 L Phosphorus Magnesium Total Bilirubin AST Total Creatine Kinase CK-MB (CK-2) Total Protein Albumin 03/23/17 03/23/17 03/23/17 12:09 17:20 17:52 WBC RBC Hgb Hct MCV MCH MCHC RDW Plt Count Lymph % (Auto) [place] % (Auto) [place] # Seg Neutrophils % Seg Neuts % (Manual) Lymphocytes % (Manual) Monocytes % (Manual) Seg Neutrophils # Seg Neutrophils # Man Lymphocytes # (Manual) Monocytes # (Manual) Eosinophils # (Manual) PT INR APTT Heparin Anti-Xa Level 1.39 H POC ABG pH POC ABG pCO2 POC ABG pO2 Sodium Potassium Chloride Carbon Dioxide BUN Creatinine Glucose POC Glucose 133 H 151 H Calcium Phosphorus Magnesium Total Bilirubin AST Total Creatine Kinase CK-MB (CK-2) Total Protein Albumin 03/23/17 03/24/17 03/24/17 23:59 03:15 03:15 WBC 23.9 H RBC 3.58 L Hgb 11.6 L Hct 34.6 L MCV 97 H D MCH MCHC RDW Plt Count 122 L Lymph % (Auto) [place] % (Auto) [place] # Seg Neutrophils % Seg Neuts % (Manual) Lymphocytes % (Manual) Monocytes % (Manual) Seg Neutrophils # Seg Neutrophils # Man Lymphocytes # (Manual) Monocytes # (Manual) Eosinophils # (Manual) PT INR APTT Heparin Anti-Xa Level POC ABG pH POC ABG pCO2 POC ABG pO2 Sodium 135 L Potassium Chloride 95.0 L Carbon Dioxide BUN 71 H Creatinine 5.2 H Glucose 123 H POC Glucose 124 H Calcium 8.0 L Phosphorus Magnesium Total Bilirubin AST Total Creatine Kinase CK-MB (CK-2) Total Protein Albumin 03/24/17 03/24/17 03/24/17 03:15 04:53 11:58 WBC RBC Hgb Hct MCV MCH MCHC RDW Plt Count Lymph % (Auto) [place] % (Auto) [place] # Seg Neutrophils % Seg Neuts % (Manual) Lymphocytes % (Manual) Monocytes % (Manual) Seg Neutrophils # Seg Neutrophils # Man Lymphocytes # (Manual) Monocytes # (Manual) Eosinophils # (Manual) PT INR APTT Heparin Anti-Xa Level 0.20 L POC ABG pH POC ABG pCO2 POC ABG pO2 72 L Sodium Potassium Chloride Carbon Dioxide BUN Creatinine Glucose POC Glucose 121 H Calcium Phosphorus Magnesium Total Bilirubin AST Total Creatine Kinase CK-MB (CK-2) Total Protein Albumin 03/24/17 03/25/17 03/25/17 18:16 00:24 05:30 WBC RBC Hgb Hct MCV MCH MCHC RDW Plt Count Lymph % (Auto) [place] % (Auto) [place] # Seg Neutrophils % Seg Neuts % (Manual) Lymphocytes % (Manual) Monocytes % (Manual) Seg Neutrophils # Seg Neutrophils # Man Lymphocytes # (Manual) Monocytes # (Manual) Eosinophils # (Manual) PT INR APTT Heparin Anti-Xa Level POC ABG pH POC ABG pCO2 34.2 L POC ABG pO2 Sodium Potassium Chloride Carbon Dioxide BUN Creatinine Glucose POC Glucose 117 H 107 H Calcium Phosphorus Magnesium Total Bilirubin AST Total Creatine Kinase CK-MB (CK-2) Total Protein Albumin 03/25/17 03/25/17 03/25/17 05:35 11:45 16:48 WBC RBC Hgb Hct MCV MCH MCHC RDW Plt Count Lymph % (Auto) [place] % (Auto) [place] # Seg Neutrophils % Seg Neuts % (Manual) Lymphocytes % (Manual) Monocytes % (Manual) Seg Neutrophils # Seg Neutrophils # Man Lymphocytes # (Manual) Monocytes # (Manual) Eosinophils # (Manual) PT INR APTT Heparin Anti-Xa Level POC ABG pH POC ABG pCO2 POC ABG pO2 Sodium 132 L Potassium Chloride 92.0 L Carbon Dioxide 20 L BUN 102 H Creatinine 7.2 H Glucose 101 H POC Glucose 127 H 114 H Calcium 8.3 L Phosphorus Magnesium Total Bilirubin AST Total Creatine Kinase CK-MB (CK-2) Total Protein Albumin 03/26/17 03/26/17 03/26/17 00:17 04:15 04:15 WBC 21.1 H RBC 3.52 L Hgb 11.0 L Hct 33.2 L MCV 95 H MCH MCHC RDW Plt Count 121 L Lymph % (Auto) [place] % (Auto) [place] # Seg Neutrophils % Seg Neuts % (Manual) Lymphocytes % (Manual) Monocytes % (Manual) Seg Neutrophils # Seg Neutrophils # Man Lymphocytes # (Manual) Monocytes # (Manual) Eosinophils # (Manual) PT INR APTT Heparin Anti-Xa Level POC ABG pH POC ABG pCO2 POC ABG pO2 Sodium 133 L Potassium Chloride 92.9 L Carbon Dioxide 21 L BUN 77 H Creatinine 5.4 H Glucose 115 H POC Glucose 114 H Calcium 8.1 L Phosphorus Magnesium Total Bilirubin AST Total Creatine Kinase CK-MB (CK-2) Total Protein Albumin 03/26/17 03/26/17 03/26/17 04:49 11:36 23:29 WBC RBC Hgb Hct MCV MCH MCHC RDW Plt Count Lymph % (Auto) [place] % (Auto) [place] # Seg Neutrophils % Seg Neuts % (Manual) Lymphocytes % (Manual) Monocytes % (Manual) Seg Neutrophils # Seg Neutrophils # Man Lymphocytes # (Manual) Monocytes # (Manual) Eosinophils # (Manual) PT INR APTT Heparin Anti-Xa Level POC ABG pH POC ABG pCO2 POC ABG pO2 Sodium Potassium Chloride Carbon Dioxide BUN Creatinine Glucose POC Glucose 127 H 123 H 125 H Calcium Phosphorus Magnesium Total Bilirubin AST Total Creatine Kinase CK-MB (CK-2) Total Protein Albumin 03/27/17 03/27/17 03/27/17 04:00 04:46 05:06 WBC RBC Hgb Hct MCV MCH MCHC RDW Plt Count Lymph % (Auto) [place] % (Auto) [place] # Seg Neutrophils % Seg Neuts % (Manual) Lymphocytes % (Manual) Monocytes % (Manual) Seg Neutrophils # Seg Neutrophils # Man Lymphocytes # (Manual) Monocytes # (Manual) Eosinophils # (Manual) PT INR APTT Heparin Anti-Xa Level POC ABG pH POC ABG pCO2 31.4 L POC ABG pO2 Sodium 132 L Potassium Chloride 90.5 L Carbon Dioxide 19 L BUN 95 H Creatinine 6.7 H Glucose 110 H POC Glucose 116 H Calcium Phosphorus Magnesium Total Bilirubin AST Total Creatine Kinase CK-MB (CK-2) Total Protein Albumin 03/27/17 03/27/17 03/27/17 08:11 08:11 11:34 WBC 24.7 H RBC Hgb 11.5 L Hct 35.0 L MCV 95 H MCH MCHC RDW Plt Count Lymph % (Auto) [place] % (Auto) [place] # Seg Neutrophils % Seg Neuts % (Manual) Lymphocytes % (Manual) Monocytes % (Manual) Seg Neutrophils # Seg Neutrophils # Man Lymphocytes # (Manual) Monocytes # (Manual) Eosinophils # (Manual) PT INR APTT Heparin Anti-Xa Level < 0.10 L POC ABG pH POC ABG pCO2 POC ABG pO2 Sodium Potassium Chloride Carbon Dioxide BUN Creatinine Glucose POC Glucose 118 H Calcium Phosphorus Magnesium Total Bilirubin AST Total Creatine Kinase CK-MB (CK-2) Total Protein Albumin 03/27/17 03/27/17 03/28/17 16:44 23:59 05:07 WBC RBC Hgb Hct MCV MCH MCHC RDW Plt Count Lymph % (Auto) [place] % (Auto) [place] # Seg Neutrophils % Seg Neuts % (Manual) Lymphocytes % (Manual) Monocytes % (Manual) Seg Neutrophils # Seg Neutrophils # Man Lymphocytes # (Manual) Monocytes # (Manual) Eosinophils # (Manual) PT INR APTT Heparin Anti-Xa Level POC ABG pH POC ABG pCO2 POC ABG pO2 Sodium Potassium Chloride Carbon Dioxide BUN Creatinine Glucose POC Glucose 110 H 109 H 110 H Calcium Phosphorus Magnesium Total Bilirubin AST Total Creatine Kinase CK-MB (CK-2) Total Protein Albumin 03/28/17 03/28/17 03/28/17 07:00 11:24 11:50 WBC 26.6 H RBC 3.42 L Hgb 10.8 L Hct 33.2 L MCV 97 H MCH MCHC RDW 15.4 H Plt Count Lymph % (Auto) [place] % (Auto) [place] # Seg Neutrophils % Seg Neuts % (Manual) Lymphocytes % (Manual) Monocytes % (Manual) Seg Neutrophils # Seg Neutrophils # Man Lymphocytes # (Manual) Monocytes # (Manual) Eosinophils # (Manual) PT INR APTT Heparin Anti-Xa Level POC ABG pH POC ABG pCO2 POC ABG pO2 Sodium 131 L Potassium 5.3 H Chloride 86.6 L Carbon Dioxide 17 L BUN 112 H Creatinine 7.9 H Glucose 120 H POC Glucose 141 H Calcium Phosphorus Magnesium Total Bilirubin AST Total Creatine Kinase CK-MB (CK-2) Total Protein Albumin 03/28/17 03/28/17 03/28/17 17:25 18:04 23:07 WBC RBC Hgb Hct MCV MCH MCHC RDW Plt Count Lymph % (Auto) [place] % (Auto) [place] # Seg Neutrophils % Seg Neuts % (Manual) Lymphocytes % (Manual) Monocytes % (Manual) Seg Neutrophils # Seg Neutrophils # Man Lymphocytes # (Manual) Monocytes # (Manual) Eosinophils # (Manual) PT INR APTT Heparin Anti-Xa Level 0.23 L POC ABG pH POC ABG pCO2 POC ABG pO2 Sodium Potassium Chloride Carbon Dioxide BUN Creatinine Glucose POC Glucose 128 H 115 H Calcium Phosphorus Magnesium Total Bilirubin AST Total Creatine Kinase CK-MB (CK-2) Total Protein Albumin 03/29/17 03/29/17 03/29/17 03:23 05:16 08:20 WBC RBC Hgb Hct MCV MCH MCHC RDW Plt Count Lymph % (Auto) [place] % (Auto) [place] # Seg Neutrophils % Seg Neuts % (Manual) Lymphocytes % (Manual) Monocytes % (Manual) Seg Neutrophils # Seg Neutrophils # Man Lymphocytes # (Manual) Monocytes # (Manual) Eosinophils # (Manual) PT INR APTT Heparin Anti-Xa Level 0.10 L POC ABG pH POC ABG pCO2 POC ABG pO2 Sodium 126 L Potassium 5.6 H Chloride 87.5 L Carbon Dioxide 21 L BUN 84 H Creatinine 6.0 H Glucose 144 H POC Glucose 146 H Calcium 7.9 L Phosphorus Magnesium Total Bilirubin AST Total Creatine Kinase CK-MB (CK-2) Total Protein Albumin 03/29/17 03/29/17 08:20 09:13 WBC 27.6 H RBC 3.27 L Hgb 10.2 L Hct 31.8 L MCV 97 H MCH MCHC RDW 15.3 H Plt Count Lymph % (Auto) [place] % (Auto) [place] # Seg Neutrophils % Seg Neuts % (Manual) Lymphocytes % (Manual) Monocytes % (Manual) Seg Neutrophils # Seg Neutrophils # Man Lymphocytes # (Manual) Monocytes # (Manual) Eosinophils # (Manual) PT INR APTT Heparin Anti-Xa Level POC ABG pH 7.204 L POC ABG pCO2 52.8 H POC ABG pO2 57 L Sodium Potassium Chloride Carbon Dioxide BUN Creatinine Glucose POC Glucose Calcium Phosphorus Magnesium Total Bilirubin AST Total Creatine Kinase CK-MB (CK-2) Total Protein Albumin
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
[2017-03-29] MEDS: MERREM/NS 500 MG/50 ML 500 MG/50 ML BAG IV SCH (13:03)
[2017-03-29] MEDS: NACL 0.9% 1000 ML 1,000 ML IV SCH (13:31)
[2017-03-29] MEDS: TYLENOL PO PRN (13:40)
[2017-03-29 16:38] LABS: Heparin-Induced Platelet Antib TNR (()); Unfractionated Heparin Negative (Negative)
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
--- NOTE | 2017-03-29 18:37 | XRay Report ---
FINAL REPORT EXAM: XR CHEST 1V AP HISTORY: follow up resp. failure TECHNIQUE: upright single view chest PRIORS: Comparison is dated March 27, 2017 FINDINGS: There is complete opacification of the left mounika thorax new since the prior exam. There is mediastinal shift to the left indicating atelectasis. ET tube is no longer identified. There is a feeding tube descending below the diaphragm. Right-sided PICC line and IJ catheter appear in satisfactory position. Right lung demonstrates no acute change. IMPRESSION: Complete opacification of the left mounika thorax indicating complete or near complete atelectasis of the left lung. Suspect mucous plugging. Status post extubation Feeding tube noted. Distal end not visualized. Central venous catheter is in satisfactory position.
[2017-03-29] MEDS ORDERED: KIONEX PO ONE (18:47)
[2017-03-29 19:36] LABS: BUN/Creatinine Ratio 13.91; Calcium 8.8 mg/dL (8.4-10.2); Chloride 85.4 mmol/L (98-107); Potassium 5.8 mmol/L (3.6-5.0)
[2017-03-29] MEDS ORDERED: LASIX IV ONE (20:00)
[2017-03-29 23:18] LABS: Potassium, Urine 35.44 mEq/L
[2017-03-30] MEDS: CARDIZEM PO SCH ×4 (00:54→18:06)
[2017-03-30] MEDS: NOVOLOG SUB-Q SCH ×3 (00:57→16:13)
[2017-03-30] MEDS: HEPARIN/ 0.45% NACL-25,000 UNIT/500 ML 25,000 UNIT/500 ML BAG IV SCH ×2 (02:05→10:45)
[2017-03-30] MEDS: NACL 0.9% 1000 ML 1,000 ML IV SCH ×2 (02:08→15:05)
[2017-03-30 05:47] LABS: BUN/Creatinine Ratio 14.76; Calcium 7.4 mg/dL (8.4-10.2); Chloride 86.6 mmol/L (98-107); Potassium 5.2 mmol/L (3.6-5.0)
--- NOTE | 2017-03-30 08:02 | XRay Report ---
AP CHEST :03/30/17 CLINICAL: Follow up respiratory failure. COMPARISON:03/29/17 and 03/27/17 FINDINGS: The left hemithorax is completely opaque and the heart and mediastinum are shifted to the left. Increased patchy opacification of the right lung. No pneumothorax. Right PICC line and right IJ catheter are in the distal SVC. A feeding tube is satisfactory. No endotracheal tube. IMPRESSION: Complete or near atelectasis of the left lung which has developed since 03/27/17. No change since the previous day. Worsened patchy airspace disease of the right lung.
[2017-03-30] MEDS: DUONEB *Not for PRN Use IH SCH ×3 (08:31→20:03)
[2017-03-30 08:35] LABS: Hematocrit 30.1 % (35.5-45.6); Hemoglobin 9.7 gm/dl (11.8-15.2); Mean Corpuscular HGB Conc 32 % (32-34); Mean Corpuscular Hemoglobin 31 pg (28-32); Mean Corpuscular Volume 96 fl (84-94); Platelet Count 230 K/mm3 (140-440); Red Blood Count 3.14 M/mm3 (3.65-5.03); Red Cell Distribution Width 16.2 % (13.2-15.2)
--- NOTE | 2017-03-30 08:38 | Progress Note ---
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 35 H BUN 31 H Creatinine Glucose 132 H POC Glucose 147 H 138 H Calcium Phosphorus Magnesium Total Bilirubin AST Total Creatine Kinase CK-MB (CK-2) Total Protein Albumin Urine Creatinine Urine Chloride 03/17/17 03/17/17 03/17/17 07:06 07:14 12:35 WBC 16.6 H RBC Hgb 15.6 H Hct 47.5 H MCV 99 H MCH 33 H MCHC RDW Plt Count Lymph % (Auto) 8.4 L Evangeline % (Auto) 8.1 H Evangeline # 1.3 H Seg Neutrophils % 81.8 H Seg Neuts % (Manual) Lymphocytes % (Manual) Monocytes % (Manual) Seg Neutrophils # 13.6 H Seg Neutrophils # Man Lymphocytes # (Manual) Monocytes # (Manual) Eosinophils # (Manual) PT INR APTT Heparin Anti-Xa Level POC ABG pH POC ABG pCO2 POC ABG pO2 Sodium Potassium Chloride Carbon Dioxide BUN Creatinine Glucose POC Glucose 119 H 132 H Calcium Phosphorus Magnesium Total Bilirubin AST Total Creatine Kinase CK-MB (CK-2) Total Protein Albumin Urine Creatinine Urine Chloride 03/18/17 03/18/17 03/18/17 05:05 06:15 06:15 WBC 15.8 H RBC Hgb 16.5 H Hct 49.3 H MCV 99 H MCH 33 H MCHC RDW Plt Count Lymph % (Auto) Evangeline % (Auto) Evangeline # Seg Neutrophils % Seg Neuts % (Manual) 88.0 H Lymphocytes % (Manual) 2.0 L Monocytes % (Manual) 8.0 H Seg Neutrophils # Seg Neutrophils # Man 13.9 H Lymphocytes # (Manual) 0.3 L Monocytes # (Manual) 1.3 H Eosinophils # (Manual) PT INR APTT Heparin Anti-Xa Level POC ABG pH POC ABG pCO2 72.9 H POC ABG pO2 168 H Sodium 147 H Potassium 3.5 L Chloride 95.3 L Carbon Dioxide 37 H BUN 29 H Creatinine Glucose 155 H POC Glucose Calcium Phosphorus Magnesium Total Bilirubin AST Total Creatine Kinase CK-MB (CK-2) Total Protein Albumin Urine Creatinine Urine Chloride 03/18/17 03/18/17 03/18/17 08:27 11:24 11:31 WBC RBC Hgb Hct MCV MCH MCHC RDW Plt Count Lymph % (Auto) Evangeline % (Auto) Evangeline # Seg Neutrophils % Seg Neuts % (Manual) Lymphocytes % (Manual) Monocytes % (Manual) Seg Neutrophils # Seg Neutrophils # Man Lymphocytes # (Manual) Monocytes # (Manual) Eosinophils # (Manual) PT INR APTT Heparin Anti-Xa Level POC ABG pH 7.530 H POC ABG pCO2 POC ABG pO2 60 L Sodium Potassium Chloride Carbon Dioxide BUN Creatinine Glucose POC Glucose 123 H 176 H Calcium Phosphorus Magnesium Total Bilirubin AST Total Creatine Kinase CK-MB (CK-2) Total Protein Albumin Urine Creatinine Urine Chloride 03/18/17 03/18/17 03/18/17 14:10 15:24 17:23 WBC RBC Hgb 15.4 H Hct 46.4 H MCV MCH MCHC RDW Plt Count Lymph % (Auto) Evangeline % (Auto) Evangeline # Seg Neutrophils % Seg Neuts % (Manual) Lymphocytes % (Manual) Monocytes % (Manual) Seg Neutrophils # Seg Neutrophils # Man Lymphocytes # (Manual) Monocytes # (Manual) Eosinophils # (Manual) PT INR APTT Heparin Anti-Xa Level POC ABG pH POC ABG pCO2 POC ABG pO2 Sodium Potassium Chloride 94.5 L Carbon Dioxide 33 H BUN 33 H Creatinine 1.6 H Glucose 241 H POC Glucose 244 H Calcium Phosphorus Magnesium Total Bilirubin AST Total Creatine Kinase CK-MB (CK-2) Total Protein Albumin 3.0 L Urine Creatinine Urine Chloride 03/18/17 03/18/17 03/19/17 17:23 21:33 03:54 WBC 25.4 H RBC Hgb Hct MCV 98 H MCH MCHC RDW Plt Count Lymph % (Auto) Evangeline % (Auto) Evangeline # Seg Neutrophils % Seg Neuts % (Manual) 83.0 H Lymphocytes % (Manual) 4.5 L Monocytes % (Manual) 8.0 H Seg Neutrophils # Seg Neutrophils # Man 21.1 H Lymphocytes # (Manual) 1.1 L Monocytes # (Manual) 2.0 H Eosinophils # (Manual) PT 17.1 H INR 1.40 H APTT Heparin Anti-Xa Level POC ABG pH POC ABG pCO2 POC ABG pO2 Sodium Potassium Chloride Carbon Dioxide BUN Creatinine Glucose POC Glucose 164 H Calcium Phosphorus Magnesium Total Bilirubin AST Total Creatine Kinase CK-MB (CK-2) Total Protein Albumin Urine Creatinine Urine Chloride 03/19/17 03/19/17 03/19/17 03:54 06:55 06:55 WBC RBC Hgb Hct MCV MCH MCHC RDW Plt Count Lymph % (Auto) Evangeline % (Auto) Evangeline # Seg Neutrophils % Seg Neuts % (Manual) Lymphocytes % (Manual) Monocytes % (Manual) Seg Neutrophils # Seg Neutrophils # Man Lymphocytes # (Manual) Monocytes # (Manual) Eosinophils # (Manual) PT INR APTT Heparin Anti-Xa Level 0.29 L POC ABG pH POC ABG pCO2 POC ABG pO2 Sodium 146 H Potassium 3.4 L Chloride 97.8 L Carbon Dioxide 33 H BUN 30 H Creatinine Glucose 134 H POC Glucose Calcium Phosphorus Magnesium 1.60 L Total Bilirubin AST Total Creatine Kinase CK-MB (CK-2) Total Protein Albumin Urine Creatinine Urine Chloride 03/19/17 03/19/17 03/19/17 08:01 12:56 14:54 WBC RBC Hgb Hct MCV MCH MCHC RDW Plt Count Lymph % (Auto) Evangeline % (Auto) Evangeline # Seg Neutrophils % Seg Neuts % (Manual) Lymphocytes % (Manual) Monocytes % (Manual) Seg Neutrophils # Seg Neutrophils # Man Lymphocytes # (Manual) Monocytes # (Manual) Eosinophils # (Manual) PT INR APTT Heparin Anti-Xa Level POC ABG pH POC ABG pCO2 57.8 H POC ABG pO2 71 L Sodium Potassium Chloride Carbon Dioxide BUN Creatinine Glucose POC Glucose 139 H 167 H Calcium Phosphorus Magnesium Total Bilirubin AST Total Creatine Kinase CK-MB (CK-2) Total Protein Albumin Urine Creatinine Urine Chloride 03/19/17 03/19/17 03/20/17 15:53 21:04 03:36 WBC RBC Hgb 15.3 H Hct 48.1 H MCV MCH MCHC RDW Plt Count Lymph % (Auto) Evangeline % (Auto) Evangeline # Seg Neutrophils % Seg Neuts % (Manual) Lymphocytes % (Manual) Monocytes % (Manual) Seg Neutrophils # Seg Neutrophils # Man Lymphocytes # (Manual) Monocytes # (Manual) Eosinophils # (Manual) PT INR APTT Heparin Anti-Xa Level POC ABG pH POC ABG pCO2 POC ABG pO2 Sodium Potassium Chloride Carbon Dioxide BUN Creatinine Glucose POC Glucose 172 H 159 H Calcium Phosphorus Magnesium Total Bilirubin AST Total Creatine Kinase CK-MB (CK-2) Total Protein Albumin Urine Creatinine Urine Chloride 03/20/17 03/20/17 03/20/17 07:45 12:02 14:07 WBC RBC Hgb Hct MCV MCH MCHC RDW Plt Count Lymph % (Auto) Evangeline % (Auto) Evangeline # Seg Neutrophils % Seg Neuts % (Manual) Lymphocytes % (Manual) Monocytes % (Manual) Seg Neutrophils # Seg Neutrophils # Man Lymphocytes # (Manual) Monocytes # (Manual) Eosinophils # (Manual) PT INR APTT Heparin Anti-Xa Level POC ABG pH 7.312 L POC ABG pCO2 68.3 H POC ABG pO2 47 L Sodium Potassium Chloride Carbon Dioxide BUN Creatinine Glucose POC Glucose 160 H 142 H Calcium Phosphorus Magnesium Total Bilirubin AST Total Creatine Kinase CK-MB (CK-2) Total Protein Albumin Urine Creatinine Urine Chloride 03/20/17 03/20/17 03/20/17 15:57 15:59 19:50 WBC RBC Hgb Hct MCV MCH MCHC RDW Plt Count Lymph % (Auto) Evangeline % (Auto) Evangeline # Seg Neutrophils % Seg Neuts % (Manual) Lymphocytes % (Manual) Monocytes % (Manual) Seg Neutrophils # Seg Neutrophils # Man Lymphocytes # (Manual) Monocytes # (Manual) Eosinophils # (Manual) PT INR APTT Heparin Anti-Xa Level POC ABG pH 7.214 L POC ABG pCO2 82.8 H 58.7 H POC ABG pO2 69 L Sodium Potassium Chloride Carbon Dioxide BUN Creatinine Glucose POC Glucose 149 H Calcium Phosphorus Magnesium Total Bilirubin AST Total Creatine Kinase CK-MB (CK-2) Total Protein Albumin Urine Creatinine Urine Chloride 03/20/17 03/20/17 03/21/17 21:19 23:34 04:18 WBC RBC Hgb Hct MCV MCH MCHC RDW Plt Count Lymph % (Auto) Evangeline % (Auto) Evangeline # Seg Neutrophils % Seg Neuts % (Manual) Lymphocytes % (Manual) Monocytes % (Manual) Seg Neutrophils # Seg Neutrophils # Man Lymphocytes # (Manual) Monocytes # (Manual) Eosinophils # (Manual) PT INR APTT Heparin Anti-Xa Level 0.20 L POC ABG pH POC ABG pCO2 48.6 H POC ABG pO2 79 L Sodium Potassium Chloride Carbon Dioxide BUN Creatinine Glucose POC Glucose 206 H Calcium Phosphorus Magnesium Total Bilirubin AST Total Creatine Kinase CK-MB (CK-2) Total Protein Albumin Urine Creatinine Urine Chloride 03/21/17 03/21/17 03/21/17 04:21 04:21 05:23 WBC RBC Hgb Hct MCV MCH MCHC RDW Plt Count Lymph % (Auto) Evangeline % (Auto) Evangeline # Seg Neutrophils % Seg Neuts % (Manual) Lymphocytes % (Manual) Monocytes % (Manual) Seg Neutrophils # Seg Neutrophils # Man Lymphocytes # (Manual) Monocytes # (Manual) Eosinophils # (Manual) PT INR APTT Heparin Anti-Xa Level 0.24 L POC ABG pH POC ABG pCO2 POC ABG pO2 Sodium 147 H Potassium Chloride Carbon Dioxide BUN 42 H Creatinine 2.6 H D Glucose 209 H POC Glucose 181 H Calcium 7.9 L Phosphorus Magnesium Total Bilirubin AST Total Creatine Kinase CK-MB (CK-2) Total Protein Albumin Urine Creatinine Urine Chloride 03/21/17 03/21/17 03/21/17 13:16 13:16 14:43 WBC 27.8 H RBC Hgb Hct MCV 101 H D MCH MCHC RDW Plt Count Lymph % (Auto) Evangeline % (Auto) Evangeline # Seg Neutrophils % Seg Neuts % (Manual) 76.0 H Lymphocytes % (Manual) 7.0 L Monocytes % (Manual) Seg Neutrophils # Seg Neutrophils # Man 21.1 H Lymphocytes # (Manual) Monocytes # (Manual) 1.1 H Eosinophils # (Manual) PT INR APTT Heparin Anti-Xa Level 0.25 L POC ABG pH 7.474 H POC ABG pCO2 POC ABG pO2 59 L Sodium Potassium Chloride Carbon Dioxide BUN Creatinine Glucose POC Glucose Calcium Phosphorus Magnesium Total Bilirubin AST Total Creatine Kinase CK-MB (CK-2) Total Protein Albumin Urine Creatinine Urine Chloride 03/21/17 03/21/17 03/21/17 17:00 18:20 23:40 WBC RBC Hgb Hct MCV MCH MCHC RDW Plt Count Lymph % (Auto) Evangeline % (Auto) Evangeline # Seg Neutrophils % Seg Neuts % (Manual) Lymphocytes % (Manual) Monocytes % (Manual) Seg Neutrophils # Seg Neutrophils # Man Lymphocytes # (Manual) Monocytes # (Manual) Eosinophils # (Manual) PT INR APTT Heparin Anti-Xa Level POC ABG pH POC ABG pCO2 POC ABG pO2 Sodium Potassium Chloride Carbon Dioxide BUN 48 H Creatinine 3.2 H Glucose 135 H POC Glucose 152 H 136 H Calcium 6.8 L Phosphorus Magnesium Total Bilirubin AST Total Creatine Kinase CK-MB (CK-2) Total Protein 5.3 L D Albumin 1.7 L Urine Creatinine Urine Chloride 03/22/17 03/22/17 03/22/17 04:30 04:30 04:30 WBC 29.3 H RBC Hgb Hct MCV 100 H MCH MCHC 31 L RDW 15.3 H Plt Count Lymph % (Auto) Evangeline % (Auto) Evangeline # Seg Neutrophils % Seg Neuts % (Manual) Lymphocytes % (Manual) Monocytes % (Manual) Seg Neutrophils # Seg Neutrophils # Man Lymphocytes # (Manual) Monocytes # (Manual) Eosinophils # (Manual) PT INR APTT Heparin Anti-Xa Level 0.29 L POC ABG pH POC ABG pCO2 POC ABG pO2 Sodium Potassium Chloride Carbon Dioxide BUN 60 H Creatinine 4.3 H Glucose 118 H POC Glucose Calcium 8.2 L D Phosphorus Magnesium Total Bilirubin AST Total Creatine Kinase CK-MB (CK-2) Total Protein Albumin 1.8 L Urine Creatinine Urine Chloride 03/22/17 03/22/17 03/22/17 05:08 07:00 07:00 WBC 24.8 H RBC Hgb Hct MCV 100 H MCH MCHC RDW Plt Count Lymph % (Auto) Evangeline % (Auto) Evangeline # Seg Neutrophils % Seg Neuts % (Manual) 94.0 H Lymphocytes % (Manual) 0 L Monocytes % (Manual) Seg Neutrophils # Seg Neutrophils # Man 23.3 H Lymphocytes # (Manual) 0.0 L Monocytes # (Manual) Eosinophils # (Manual) 0.7 H PT INR APTT Heparin Anti-Xa Level POC ABG pH POC ABG pCO2 POC ABG pO2 Sodium 147 H Potassium Chloride 109.2 H Carbon Dioxide BUN 58 H Creatinine 4.1 H Glucose 117 H POC Glucose 124 H Calcium 7.4 L Phosphorus Magnesium Total Bilirubin AST Total Creatine Kinase CK-MB (CK-2) Total Protein Albumin Urine Creatinine Urine Chloride 03/22/17 03/22/17 03/22/17 08:40 11:37 14:30 WBC RBC Hgb Hct MCV MCH MCHC RDW Plt Count Lymph % (Auto) Evangeline % (Auto) Evangeline # Seg Neutrophils % Seg Neuts % (Manual) Lymphocytes % (Manual) Monocytes % (Manual) Seg Neutrophils # Seg Neutrophils # Man Lymphocytes # (Manual) Monocytes # (Manual) Eosinophils # (Manual) PT 16.2 H INR 1.31 H APTT 68.9 H* Heparin Anti-Xa Level < 0.10 L POC ABG pH POC ABG pCO2 POC ABG pO2 Sodium Potassium Chloride Carbon Dioxide BUN Creatinine Glucose POC Glucose 159 H Calcium Phosphorus Magnesium Total Bilirubin AST Total Creatine Kinase CK-MB (CK-2) Total Protein Albumin Urine Creatinine Urine Chloride 03/22/17 03/22/17 03/22/17 17:53 21:44 23:54 WBC RBC Hgb 11.6 L Hct 33.1 L MCV MCH MCHC RDW Plt Count Lymph % (Auto) Evangeline % (Auto) Evangeline # Seg Neutrophils % Seg Neuts % (Manual) Lymphocytes % (Manual) Monocytes % (Manual) Seg Neutrophils # Seg Neutrophils # Man Lymphocytes # (Manual) Monocytes # (Manual) Eosinophils # (Manual) PT INR APTT Heparin Anti-Xa Level POC ABG pH POC ABG pCO2 POC ABG pO2 Sodium Potassium Chloride Carbon Dioxide BUN Creatinine Glucose POC Glucose 142 H 131 H Calcium Phosphorus Magnesium Total Bilirubin AST Total Creatine Kinase CK-MB (CK-2) Total Protein Albumin Urine Creatinine Urine Chloride 03/23/17 03/23/17 03/23/17 04:08 05:29 06:34 WBC RBC Hgb Hct MCV MCH MCHC RDW Plt Count Lymph % (Auto) Evangeline % (Auto) Evangeline # Seg Neutrophils % Seg Neuts % (Manual) Lymphocytes % (Manual) Monocytes % (Manual) Seg Neutrophils # Seg Neutrophils # Man Lymphocytes # (Manual) Monocytes # (Manual) Eosinophils # (Manual) PT INR APTT Heparin Anti-Xa Level POC ABG pH POC ABG pCO2 POC ABG pO2 75 L Sodium Potassium Chloride Carbon Dioxide 21 L BUN 85 H Creatinine 6.0 H Glucose 134 H POC Glucose 134 H Calcium 8.1 L Phosphorus Magnesium Total Bilirubin AST Total Creatine Kinase CK-MB (CK-2) Total Protein Albumin Urine Creatinine Urine Chloride 03/23/17 03/23/17 03/23/17 12:09 17:20 17:52 WBC RBC Hgb Hct MCV MCH MCHC RDW Plt Count Lymph % (Auto) Evangeline % (Auto) Evangeline # Seg Neutrophils % Seg Neuts % (Manual) Lymphocytes % (Manual) Monocytes % (Manual) Seg Neutrophils # Seg Neutrophils # Man Lymphocytes # (Manual) Monocytes # (Manual) Eosinophils # (Manual) PT INR APTT Heparin Anti-Xa Level 1.39 H POC ABG pH POC ABG pCO2 POC ABG pO2 Sodium Potassium Chloride Carbon Dioxide BUN Creatinine Glucose POC Glucose 133 H 151 H Calcium Phosphorus Magnesium Total Bilirubin AST Total Creatine Kinase CK-MB (CK-2) Total Protein Albumin Urine Creatinine Urine Chloride 03/23/17 03/24/17 03/24/17 23:59 03:15 03:15 WBC 23.9 H RBC 3.58 L Hgb 11.6 L Hct 34.6 L MCV 97 H D MCH MCHC RDW Plt Count 122 L Lymph % (Auto) Evangeline % (Auto) Evangeline # Seg Neutrophils % Seg Neuts % (Manual) Lymphocytes % (Manual) Monocytes % (Manual) Seg Neutrophils # Seg Neutrophils # Man Lymphocytes # (Manual) Monocytes # (Manual) Eosinophils # (Manual) PT INR APTT Heparin Anti-Xa Level POC ABG pH POC ABG pCO2 POC ABG pO2 Sodium 135 L Potassium Chloride 95.0 L Carbon Dioxide BUN 71 H Creatinine 5.2 H Glucose 123 H POC Glucose 124 H Calcium 8.0 L Phosphorus Magnesium Total Bilirubin AST Total Creatine Kinase CK-MB (CK-2) Total Protein Albumin Urine Creatinine Urine Chloride 03/24/17 03/24/17 03/24/17 03:15 04:53 11:58 WBC RBC Hgb Hct MCV MCH MCHC RDW Plt Count Lymph % (Auto) Evangeline % (Auto) Evangeline # Seg Neutrophils % Seg Neuts % (Manual) Lymphocytes % (Manual) Monocytes % (Manual) Seg Neutrophils # Seg Neutrophils # Man Lymphocytes # (Manual) Monocytes # (Manual) Eosinophils # (Manual) PT INR APTT Heparin Anti-Xa Level 0.20 L POC ABG pH POC ABG pCO2 POC ABG pO2 72 L Sodium Potassium Chloride Carbon Dioxide BUN Creatinine Glucose POC Glucose 121 H Calcium Phosphorus Magnesium Total Bilirubin AST Total Creatine Kinase CK-MB (CK-2) Total Protein Albumin Urine Creatinine Urine Chloride 03/24/17 03/25/17 03/25/17 18:16 00:24 05:30 WBC RBC Hgb Hct MCV MCH MCHC RDW Plt Count Lymph % (Auto) Evangeline % (Auto) Evangeline # Seg Neutrophils % Seg Neuts % (Manual) Lymphocytes % (Manual) Monocytes % (Manual) Seg Neutrophils # Seg Neutrophils # Man Lymphocytes # (Manual) Monocytes # (Manual) Eosinophils # (Manual) PT INR APTT Heparin Anti-Xa Level POC ABG pH POC ABG pCO2 34.2 L POC ABG pO2 Sodium Potassium Chloride Carbon Dioxide BUN Creatinine Glucose POC Glucose 117 H 107 H Calcium Phosphorus Magnesium Total Bilirubin AST Total Creatine Kinase CK-MB (CK-2) Total Protein Albumin Urine Creatinine Urine Chloride 03/25/17 03/25/17 03/25/17 05:35 11:45 16:48 WBC RBC Hgb Hct MCV MCH MCHC RDW Plt Count Lymph % (Auto) Evangeline % (Auto) Evangeline # Seg Neutrophils % Seg Neuts % (Manual) Lymphocytes % (Manual) Monocytes % (Manual) Seg Neutrophils # Seg Neutrophils # Man Lymphocytes # (Manual) Monocytes # (Manual) Eosinophils # (Manual) PT INR APTT Heparin Anti-Xa Level POC ABG pH POC ABG pCO2 POC ABG pO2 Sodium 132 L Potassium Chloride 92.0 L Carbon Dioxide 20 L BUN 102 H Creatinine 7.2 H Glucose 101 H POC Glucose 127 H 114 H Calcium 8.3 L Phosphorus Magnesium Total Bilirubin AST Total Creatine Kinase CK-MB (CK-2) Total Protein Albumin Urine Creatinine Urine Chloride 03/26/17 03/26/17 03/26/17 00:17 04:15 04:15 WBC 21.1 H RBC 3.52 L Hgb 11.0 L Hct 33.2 L MCV 95 H MCH MCHC RDW Plt Count 121 L Lymph % (Auto) Evangeline % (Auto) Evangeline # Seg Neutrophils % Seg Neuts % (Manual) Lymphocytes % (Manual) Monocytes % (Manual) Seg Neutrophils # Seg Neutrophils # Man Lymphocytes # (Manual) Monocytes # (Manual) Eosinophils # (Manual) PT INR APTT Heparin Anti-Xa Level POC ABG pH POC ABG pCO2 POC ABG pO2 Sodium 133 L Potassium Chloride 92.9 L Carbon Dioxide 21 L BUN 77 H Creatinine 5.4 H Glucose 115 H POC Glucose 114 H Calcium 8.1 L Phosphorus Magnesium Total Bilirubin AST Total Creatine Kinase CK-MB (CK-2) Total Protein Albumin Urine Creatinine Urine Chloride 03/26/17 03/26/17 03/26/17 04:49 11:36 23:29 WBC RBC Hgb Hct MCV MCH MCHC RDW Plt Count Lymph % (Auto) Evangeline % (Auto) Evangeline # Seg Neutrophils % Seg Neuts % (Manual) Lymphocytes % (Manual) Monocytes % (Manual) Seg Neutrophils # Seg Neutrophils # Man Lymphocytes # (Manual) Monocytes # (Manual) Eosinophils # (Manual) PT INR APTT Heparin Anti-Xa Level POC ABG pH POC ABG pCO2 POC ABG pO2 Sodium Potassium Chloride Carbon Dioxide BUN Creatinine Glucose POC Glucose 127 H 123 H 125 H Calcium Phosphorus Magnesium Total Bilirubin AST Total Creatine Kinase CK-MB (CK-2) Total Protein Albumin Urine Creatinine Urine Chloride 03/27/17 03/27/17 03/27/17 04:00 04:46 05:06 WBC RBC Hgb Hct MCV MCH MCHC RDW Plt Count Lymph % (Auto) Evangeline % (Auto) Evangeline # Seg Neutrophils % Seg Neuts % (Manual) Lymphocytes % (Manual) Monocytes % (Manual) Seg Neutrophils # Seg Neutrophils # Man Lymphocytes # (Manual) Monocytes # (Manual) Eosinophils # (Manual) PT INR APTT Heparin Anti-Xa Level POC ABG pH POC ABG pCO2 31.4 L POC ABG pO2 Sodium 132 L Potassium Chloride 90.5 L Carbon Dioxide 19 L BUN 95 H Creatinine 6.7 H Glucose 110 H POC Glucose 116 H Calcium Phosphorus Magnesium Total Bilirubin AST Total Creatine Kinase CK-MB (CK-2) Total Protein Albumin Urine Creatinine Urine Chloride 03/27/17 03/27/17 03/27/17 08:11 08:11 11:34 WBC 24.7 H RBC Hgb 11.5 L Hct 35.0 L MCV 95 H MCH MCHC RDW Plt Count Lymph % (Auto) Evangeline % (Auto) Evangeline # Seg Neutrophils % Seg Neuts % (Manual) Lymphocytes % (Manual) Monocytes % (Manual) Seg Neutrophils # Seg Neutrophils # Man Lymphocytes # (Manual) Monocytes # (Manual) Eosinophils # (Manual) PT INR APTT Heparin Anti-Xa Level < 0.10 L POC ABG pH POC ABG pCO2 POC ABG pO2 Sodium Potassium Chloride Carbon Dioxide BUN Creatinine Glucose POC Glucose 118 H Calcium Phosphorus Magnesium Total Bilirubin AST Total Creatine Kinase CK-MB (CK-2) Total Protein Albumin Urine Creatinine Urine Chloride 03/27/17 03/27/17 03/28/17 16:44 23:59 05:07 WBC RBC Hgb Hct MCV MCH MCHC RDW Plt Count Lymph % (Auto) Evangeline % (Auto) Evangeline # Seg Neutrophils % Seg Neuts % (Manual) Lymphocytes % (Manual) Monocytes % (Manual) Seg Neutrophils # Seg Neutrophils # Man Lymphocytes # (Manual) Monocytes # (Manual) Eosinophils # (Manual) PT INR APTT Heparin Anti-Xa Level POC ABG pH POC ABG pCO2 POC ABG pO2 Sodium Potassium Chloride Carbon Dioxide BUN Creatinine Glucose POC Glucose 110 H 109 H 110 H Calcium Phosphorus Magnesium Total Bilirubin AST Total Creatine Kinase CK-MB (CK-2) Total Protein Albumin Urine Creatinine Urine Chloride 03/28/17 03/28/17 03/28/17 07:00 11:24 11:50 WBC 26.6 H RBC 3.42 L Hgb 10.8 L Hct 33.2 L MCV 97 H MCH MCHC RDW 15.4 H Plt Count Lymph % (Auto) Evangeline % (Auto) Evangeline # Seg Neutrophils % Seg Neuts % (Manual) Lymphocytes % (Manual) Monocytes % (Manual) Seg Neutrophils # Seg Neutrophils # Man Lymphocytes # (Manual) Monocytes # (Manual) Eosinophils # (Manual) PT INR APTT Heparin Anti-Xa Level POC ABG pH POC ABG pCO2 POC ABG pO2 Sodium 131 L Potassium 5.3 H Chloride 86.6 L Carbon Dioxide 17 L BUN 112 H Creatinine 7.9 H Glucose 120 H POC Glucose 141 H Calcium Phosphorus Magnesium Total Bilirubin AST Total Creatine Kinase CK-MB (CK-2) Total Protein Albumin Urine Creatinine Urine Chloride 03/28/17 03/28/17 03/28/17 17:25 18:04 23:07 WBC RBC Hgb Hct MCV MCH MCHC RDW Plt Count Lymph % (Auto) Evangeline % (Auto) Evangeline # Seg Neutrophils % Seg Neuts % (Manual) Lymphocytes % (Manual) Monocytes % (Manual) Seg Neutrophils # Seg Neutrophils # Man Lymphocytes # (Manual) Monocytes # (Manual) Eosinophils # (Manual) PT INR APTT Heparin Anti-Xa Level 0.23 L POC ABG pH POC ABG pCO2 POC ABG pO2 Sodium Potassium Chloride Carbon Dioxide BUN Creatinine Glucose POC Glucose 128 H 115 H Calcium Phosphorus Magnesium Total Bilirubin AST Total Creatine Kinase CK-MB (CK-2) Total Protein Albumin Urine Creatinine Urine Chloride 03/29/17 03/29/17 03/29/17 03:23 05:16 08:20 WBC RBC Hgb Hct MCV MCH MCHC RDW Plt Count Lymph % (Auto) Evangeline % (Auto) Evangeline # Seg Neutrophils % Seg Neuts % (Manual) Lymphocytes % (Manual) Monocytes % (Manual) Seg Neutrophils # Seg Neutrophils # Man Lymphocytes # (Manual) Monocytes # (Manual) Eosinophils # (Manual) PT INR APTT Heparin Anti-Xa Level 0.10 L POC ABG pH POC ABG pCO2 POC ABG pO2 Sodium 126 L Potassium 5.6 H Chloride 87.5 L Carbon Dioxide 21 L BUN 84 H Creatinine 6.0 H Glucose 144 H POC Glucose 146 H Calcium 7.9 L Phosphorus Magnesium Total Bilirubin AST Total Creatine Kinase CK-MB (CK-2) Total Protein Albumin Urine Creatinine Urine Chloride 03/29/17 03/29/17 03/29/17 08:20 09:13 10:00 WBC 27.6 H RBC 3.27 L Hgb 10.2 L Hct 31.8 L MCV 97 H MCH MCHC RDW 15.3 H Plt Count Lymph % (Auto) Evangeline % (Auto) Evangeline # Seg Neutrophils % Seg Neuts % (Manual) Lymphocytes % (Manual) Monocytes % (Manual) Seg Neutrophils # Seg Neutrophils # Man Lymphocytes # (Manual) Monocytes # (Manual) Eosinophils # (Manual) PT INR APTT Heparin Anti-Xa Level 0.84 H POC ABG pH 7.204 L POC ABG pCO2 52.8 H POC ABG pO2 57 L Sodium Potassium Chloride Carbon Dioxide BUN Creatinine Glucose POC Glucose Calcium Phosphorus Magnesium Total Bilirubin AST Total Creatine Kinase CK-MB (CK-2) Total Protein Albumin Urine Creatinine Urine Chloride 03/29/17 03/29/17 03/29/17 10:24 12:27 16:44 WBC RBC Hgb Hct MCV MCH MCHC RDW Plt Count Lymph % (Auto) Evangeline % (Auto) Evangeline # Seg Neutrophils % Seg Neuts % (Manual) Lymphocytes % (Manual) Monocytes % (Manual) Seg Neutrophils # Seg Neutrophils # Man Lymphocytes # (Manual) Monocytes # (Manual) Eosinophils # (Manual) PT INR APTT Heparin Anti-Xa Level < 0.10 L POC ABG pH 7.305 L POC ABG pCO2 POC ABG pO2 73 L Sodium Potassium Chloride Carbon Dioxide BUN Creatinine Glucose POC Glucose 152 H Calcium Phosphorus Magnesium Total Bilirubin AST Total Creatine Kinase CK-MB (CK-2) Total Protein Albumin Urine Creatinine Urine Chloride 03/29/17 03/29/17 03/29/17 17:48 18:56 22:10 WBC RBC Hgb Hct MCV MCH MCHC RDW Plt Count Lymph % (Auto) Evangeline % (Auto) Evangeline # Seg Neutrophils % Seg Neuts % (Manual) Lymphocytes % (Manual) Monocytes % (Manual) Seg Neutrophils # Seg Neutrophils # Man Lymphocytes # (Manual) Monocytes # (Manual) Eosinophils # (Manual) PT INR APTT Heparin Anti-Xa Level POC ABG pH POC ABG pCO2 POC ABG pO2 Sodium 125 L Potassium 5.8 H Chloride 85.4 L Carbon Dioxide 16 L BUN 96 H Creatinine 6.9 H Glucose 135 H POC Glucose 130 H Calcium Phosphorus Magnesium Total Bilirubin AST Total Creatine Kinase CK-MB (CK-2) Total Protein Albumin Urine Creatinine 86.5 H Urine Chloride 15.2 L 03/30/17 03/30/17 03/30/17 00:11 01:00 05:42 WBC RBC Hgb Hct MCV MCH MCHC RDW Plt Count Lymph % (Auto) Evangeline % (Auto) Evangeline # Seg Neutrophils % Seg Neuts % (Manual) Lymphocytes % (Manual) Monocytes % (Manual) Seg Neutrophils # Seg Neutrophils # Man Lymphocytes # (Manual) Monocytes # (Manual) Eosinophils # (Manual) PT INR APTT Heparin Anti-Xa Level 0.80 H POC ABG pH POC ABG pCO2 POC ABG pO2 Sodium Potassium Chloride Carbon Dioxide BUN Creatinine Glucose POC Glucose 146 H 162 H Calcium Phosphorus Magnesium Total Bilirubin AST Total Creatine Kinase CK-MB (CK-2) Total Protein Albumin Urine Creatinine Urine Chloride 03/30/17 03/30/17 07:32 Unknown WBC RBC Hgb Hct MCV MCH MCHC RDW Plt Count Lymph % (Auto) Evangeline % (Auto) Evangeline # Seg Neutrophils % Seg Neuts % (Manual) Lymphocytes % (Manual) Monocytes % (Manual) Seg Neutrophils # Seg Neutrophils # Man Lymphocytes # (Manual) Monocytes # (Manual) Eosinophils # (Manual) PT INR APTT Heparin Anti-Xa Level 0.99 H POC ABG pH POC ABG pCO2 POC ABG pO2 Sodium 124 L Potassium 5.2 H Chloride 86.6 L Carbon Dioxide 16 L BUN 93 H Creatinine 6.3 H Glucose 153 H POC Glucose Calcium 7.4 L D Phosphorus Magnesium Total Bilirubin AST Total Creatine Kinase CK-MB (CK-2) Total Protein Albumin Urine Creatinine Urine Chloride
[2017-03-30 08:46] LABS: White Blood Count 27.7 K/mm3 (4.5-11.0)
--- NOTE | 2017-03-30 08:56 | Progress Note ---
Assessment and Plan - Patient Problems (1) KATHRIN (acute kidney injury) Current Visit: Yes Status: Acute Plan to address problem: worsening renal function, possible ATN. Multiple comorbid conditions--prognosis guarded. Spoke with pt's nurseMD notes reviewed. Hyperkalemia. HD as ordered with UF as tolerated (2) Acute respiratory failure Current Visit: Yes Status: Acute Qualifiers: Respiratory failure complication: hypoxia Qualified Code(s): J96.01 - Acute respiratory failure with hypoxia (3) Atrial fibrillation with RVR Current Visit: Yes Status: Acute (4) Cardiomyopathy Current Visit: Yes Status: Chronic Qualifiers: Cardiomyopathy type: C (5) Leucocytosis Current Visit: Yes Status: Acute Qualifiers: Leukocytosis type: L (6) Encephalopathy Current Visit: Yes Status: Acute (7) UTI (urinary tract infection) Current Visit: Yes Status: Acute Qualifiers: Urinary tract infection type: U Hematuria presence: H Indwelling urinary catheter type: I Encounter type: E (8) Deep vein thrombosis (DVT) Current Visit: Yes Status: Acute Qualifiers: DVT location: lower extremity Affected thrombotic vein of extremity: A Chronicity: C Laterality: left (9) Hyperkalemia Current Visit: Yes Status: Acute Plan to address problem: monitor following dialysis. Follow up on Cortisol level (10) Hyponatremia Current Visit: Yes Status: Acute Plan to address problem: Restrict free water intake Subjective Date of service: 03/30/17 Principal diagnosis: afib, EtOH abuse, morbid obesity, respiratory failure status post extubatio Interval history: pt is lethargic, non communicative, on BiPAP. Spoke with pt's nurse, chart was reviewed Objective - Vital Signs Vital signs: Vital Signs - 12hr 03/29/17 03/29/17 03/29/17 21:00 21:01 21:30 Temperature Pulse Rate 96 H 85 Pulse Rate [ 89 Anterior Bilateral Throughout] Pulse Rate [ From Monitor] Respiratory 23 17 Rate Respiratory 19 Rate [Anterior Bilateral Throughout] Blood Pressure 117/89 117/89 O2 Sat by Pulse 97 97 96 Oximetry 03/29/17 03/29/17 03/29/17 22:00 22:15 22:26 Temperature Pulse Rate 88 79 76 Pulse Rate [ Anterior Bilateral Throughout] Pulse Rate [ From Monitor] Respiratory 17 278 H 26 H Rate Respiratory Rate [Anterior Bilateral Throughout] Blood Pressure 106/70 106/70 106/70 O2 Sat by Pulse 97 94 93 Oximetry 03/29/17 03/29/17 03/29/17 22:30 23:00 23:30 Temperature Pulse Rate 70 78 72 Pulse Rate [ Anterior Bilateral Throughout] Pulse Rate [ From Monitor] Respiratory 21 18 21 Rate Respiratory Rate [Anterior Bilateral Throughout] Blood Pressure 106/70 106/70 108/80 O2 Sat by Pulse 94 97 97 Oximetry 03/30/17 03/30/17 03/30/17 00:00 00:30 00:54 Temperature Pulse Rate 73 74 80 Pulse Rate [ Anterior Bilateral Throughout] Pulse Rate [ 67 From Monitor] Respiratory 20 16 Rate Respiratory Rate [Anterior Bilateral Throughout] Blood Pressure 108/80 120/68 120/68 O2 Sat by Pulse 95 99 Oximetry 03/30/17 03/30/17 03/30/17 01:00 01:30 02:00 Temperature Pulse Rate 66 82 74 Pulse Rate [ Anterior Bilateral Throughout] Pulse Rate [ From Monitor] Respiratory 22 23 19 Rate Respiratory Rate [Anterior Bilateral Throughout] Blood Pressure 112/71 112/71 122/75 O2 Sat by Pulse 95 97 97 Oximetry 03/30/17 03/30/17 03/30/17 02:30 03:00 03:30 Temperature Pulse Rate 76 67 80 Pulse Rate [ Anterior Bilateral Throughout] Pulse Rate [ From Monitor] Respiratory 18 26 H 23 Rate Respiratory Rate [Anterior Bilateral Throughout] Blood Pressure 122/75 102/60 102/60 O2 Sat by Pulse 98 95 97 Oximetry 03/30/17 03/30/17 03/30/17 04:00 04:30 05:00 Temperature 94.7 F L Pulse Rate 76 79 81 Pulse Rate [ Anterior Bilateral Throughout] Pulse Rate [ 76 From Monitor] Respiratory 25 H 21 20 Rate Respiratory Rate [Anterior Bilateral Throughout] Blood Pressure 104/59 104/59 95/61 O2 Sat by Pulse 96 99 Oximetry 03/30/17 03/30/17 03/30/17 05:30 05:55 06:00 Temperature 94.9 F L Pulse Rate 85 88 Pulse Rate [ Anterior Bilateral Throughout] Pulse Rate [ From Monitor] Respiratory 21 24 Rate Respiratory Rate [Anterior Bilateral Throughout] Blood Pressure 95/61 107/65 O2 Sat by Pulse 98 96 Oximetry 03/30/17 03/30/17 03/30/17 06:12 07:52 08:32 Temperature 98.5 F Pulse Rate 84 Pulse Rate [ 93 H Anterior Bilateral Throughout] Pulse Rate [ From Monitor] Respiratory Rate Respiratory 22 Rate [Anterior Bilateral Throughout] Blood Pressure 107/65 O2 Sat by Pulse Oximetry 03/30/17 08:39 Temperature Pulse Rate 100 H Pulse Rate [ Anterior Bilateral Throughout] Pulse Rate [ From Monitor] Respiratory 25 H Rate Respiratory Rate [Anterior Bilateral Throughout] Blood Pressure 102/66 O2 Sat by Pulse 96 Oximetry - General Appearance General appearance: well-developed, chronically ill EENT: mucous membranes dry Neck: no JVD Respiratory: Present: Decreased Breath Sounds Cardiology: irregular Gastrointestinal: normoactive bowel sounds Musculoskeletal: other (2+ edema) - Lab 03/30/17 08:20 03/30/17 Unknown Most recent lab results Calcium 7.4 mg/dL (8.4-10.2) L D 03/30/17 Unknown Phosphorus 4.60 mg/dL (2.5-4.5) H 03/06/17 04:50 Magnesium 1.60 mg/dL (1.7-2.3) L 03/19/17 06:55 Urine Creatinine 86.5 mg/dL (0.1-20.0) H 03/29/17 22:10 Urine Sodium 28 mEq/L 03/29/17 22:10
[2017-03-30] MEDS ORDERED: NACL 0.9% 1,000 ML IV PRN (09:23)
[2017-03-30 09:28] LABS: BUN/Creatinine Ratio 13.46; Chloride 88.5 mmol/L (98-107); Potassium 5.9 mmol/L (3.6-5.0)
[2017-03-30] MEDS: LOPRESSOR PO SCH ×4 (09:57→22:01)
[2017-03-30] MEDS: VITAMIN B-1 PO SCH (09:57)
[2017-03-30] MEDS: APRESOLINE PO SCH ×5 (09:57→22:01)
[2017-03-30] MEDS: PROTONIX PO SCH (09:57)
[2017-03-30] MEDS: FOLVITE PO SCH (09:58)
[2017-03-30 11:34] LABS: Basophils % (Manual) 0 % (0.0-1.8); Blastocytes % (Manual) 0 %; Eosinophils % (Manual) 0 % (0.0-4.3); Total Cells Counted Percent 3.5
[2017-03-30 11:35] LABS: Diff Status Complete; RBC Morphology Normal
--- NOTE | 2017-03-30 12:10 | XRay Report ---
CHEST 1 VIEW INDICATION: ET tube placement. COMPARISON: 2:07 AM earlier today. FINDINGS: Portable, frontal chest radiograph, 11:26 AM, 03/30/2017 demonstrates new endotracheal tube tip about level of medial clavicular ends. Stable cardiomediastinal silhouette, remainder supporting devices, appearance of the lungs and osseous structures, providing for the difference in technique. CONCLUSION: Interval uncomplicated ET tube placement; otherwise stable, including opacified left hemithorax. Thank you for the opportunity to participate in this patient's care.
--- NOTE | 2017-03-30 13:03 | Event Note ---
Date: 03/30/17 After some discussion and review the patient's x-rays. Was decided to intubate the patient. This in order to provide proper suctioning and axis of the airway in case bronchoscopy was needed, in the context of left lung collapse. Endotracheal intubation was performed after preoxygenation with BiPAP plus nasal cannula, 15 L. Patient was suctioned and Ethiomidate 20 mg IV was given for rapid sequence intubation. NM block was not needed. The patient was placed in proper position and the kaleidoscope was used with good visualization of the vocal cords. A 7 [place] endotracheal tube was placed on first attempt with RT assistance. Proper color change was noted to auscultation was performed with 5 points auscultation showing adequate BS and coarse rhonchi mostly of the left lung and no gastric ventilatory sounds. ETT was secured at 24 cm. Vital signs and oxygenation were adequate with no desaturations through the procedure. Postprocedure recommendations; Chest x-rays Set ventilator to tidal volume 500, respiratory rate of 12, PEEP of 8, FiO2 60% or adjust to oximetry 95% ABGs in 30 minutes Get consent for bronchoscopy in case needed.
[2017-03-30] MEDS ORDERED: QUELICIN ONE (14:38)
[2017-03-30] MEDS ORDERED: AMIDATE IV ONE (14:38)
[2017-03-30] MEDS ORDERED: ZEMURON IV ONE (14:38)
[2017-03-30] MEDS ORDERED: VERSED IV ONE (14:38)
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
[2017-03-30] MEDS: HEPARIN IV PRN (15:39)
[2017-03-30] MEDS ORDERED: KIONEX PO ONE (16:19)
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
[2017-03-30] MEDS: MERREM/NS 500 MG/50 ML 500 MG/50 ML BAG IV SCH (16:24)
[2017-03-30 16:40] LABS: ISTAT Base Excess -3; ISTAT PCO2 41.6 (35-45); ISTAT PO2 62 (80-105); ISTAT SO2 90; ISTAT TCO2 24
[2017-03-30] MEDS: ZOSYN/NS 2.25 GM/50ML 2.25 GM/50 ML BAG IV SCH ×2 (18:05→23:29)
[2017-03-30] MEDS ORDERED: ZOSYN/NS 4.5GM/100ML 4.5 GM/100 ML VIAL IV SCH (22:00)
[2017-03-30] MEDS: ATIVAN IV PRN (23:29)
[2017-03-31] MEDS: CARDIZEM PO SCH ×5 (00:56→23:29)
[2017-03-31 04:25] LABS: ISTAT Base Excess -6; ISTAT HCO3 22.2; ISTAT PCO2 55.7 (35-45); ISTAT PH 7.209 (7.35-7.45); ISTAT PO2 106 (80-105); ISTAT SO2 97; ISTAT TCO2 24
[2017-03-31] MEDS: NOVOLOG SUB-Q SCH ×3 (04:28→12:00)
[2017-03-31] MEDS: ZOSYN/NS 2.25 GM/50ML 2.25 GM/50 ML BAG IV SCH (06:23)
[2017-03-31] MEDS: HEPARIN/ 0.45% NACL-25,000 UNIT/500 ML 25,000 UNIT/500 ML BAG IV SCH ×3 (06:31→22:51)
[2017-03-31 06:40] LABS: Hematocrit 29.9 % (35.5-45.6); Hemoglobin 9.6 gm/dl (11.8-15.2); Mean Corpuscular HGB Conc 32 % (32-34); Mean Corpuscular Hemoglobin 32 pg (28-32); Mean Corpuscular Volume 98 fl (84-94); Platelet Count 167 K/mm3 (140-440); Red Blood Count 3.04 M/mm3 (3.65-5.03); Red Cell Distribution Width 16.1 % (13.2-15.2)
[2017-03-31 06:50] LABS: White Blood Count 25.9 K/mm3 (4.5-11.0)
[2017-03-31 07:15] LABS: BUN/Creatinine Ratio 12.64; Calcium 7.4 mg/dL (8.4-10.2); Chloride 91.6 mmol/L (98-107); Potassium 4.1 mmol/L (3.6-5.0)
--- NOTE | 2017-03-31 07:21 | XRay Report ---
AP CHEST: HISTORY: Endotracheal tube placement, followup aspiration pneumonia The endotracheal tube, feeding tube, right IJ venous catheter and right arm PICC line are in adequate position. There is mild cardiomegaly and pulmonary venous congestion. Right lung is clear. The opacified left lung seen on yesterday's exam is much improved. Poor aeration of the left lower lobe could be secondary to small left pleural effusion or left lower lobe airspace disease. No pneumothorax. IMPRESSION: Mild cardiomegaly and pulmonary venous congestion. Left lower lobe opacity as described.
--- NOTE | 2017-03-31 08:21 | Progress Note ---
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 Lymph % (Auto) Bradley % (Auto) Bradley # Seg Neutrophils % Seg Neuts % (Manual) 88.0 H Lymphocytes % (Manual) 2.0 L Monocytes % (Manual) 8.0 H Seg Neutrophils # Seg Neutrophils # Man 13.9 H Lymphocytes # (Manual) 0.3 L Monocytes # (Manual) 1.3 H Eosinophils # (Manual) PT INR APTT Heparin Anti-Xa Level POC ABG pH POC ABG pCO2 72.9 H POC ABG pO2 168 H Sodium 147 H Potassium 3.5 L Chloride 95.3 L Carbon Dioxide 37 H BUN 29 H Creatinine Glucose 155 H POC Glucose Calcium Phosphorus Magnesium Total Bilirubin AST Total Creatine Kinase CK-MB (CK-2) Total Protein Albumin Urine Creatinine Urine Chloride 03/18/17 03/18/17 03/18/17 08:27 11:24 11:31 WBC RBC Hgb Hct MCV MCH MCHC RDW Plt Count Lymph % (Auto) Bradley % (Auto) Bradley # Seg Neutrophils % Seg Neuts % (Manual) Lymphocytes % (Manual) Monocytes % (Manual) Seg Neutrophils # Seg Neutrophils # Man Lymphocytes # (Manual) Monocytes # (Manual) Eosinophils # (Manual) PT INR APTT Heparin Anti-Xa Level POC ABG pH 7.530 H POC ABG pCO2 POC ABG pO2 60 L Sodium Potassium Chloride Carbon Dioxide BUN Creatinine Glucose POC Glucose 123 H 176 H Calcium Phosphorus Magnesium Total Bilirubin AST Total Creatine Kinase CK-MB (CK-2) Total Protein Albumin Urine Creatinine Urine Chloride 03/18/17 03/18/17 03/18/17 14:10 15:24 17:23 WBC RBC Hgb 15.4 H Hct 46.4 H MCV MCH MCHC RDW Plt Count Lymph % (Auto) Bradley % (Auto) Bradley # Seg Neutrophils % Seg Neuts % (Manual) Lymphocytes % (Manual) Monocytes % (Manual) Seg Neutrophils # Seg Neutrophils # Man Lymphocytes # (Manual) Monocytes # (Manual) Eosinophils # (Manual) PT INR APTT Heparin Anti-Xa Level POC ABG pH POC ABG pCO2 POC ABG pO2 Sodium Potassium Chloride 94.5 L Carbon Dioxide 33 H BUN 33 H Creatinine 1.6 H Glucose 241 H POC Glucose 244 H Calcium Phosphorus Magnesium Total Bilirubin AST Total Creatine Kinase CK-MB (CK-2) Total Protein Albumin 3.0 L Urine Creatinine Urine Chloride 03/18/17 03/18/17 03/19/17 17:23 21:33 03:54 WBC 25.4 H RBC Hgb Hct MCV 98 H MCH MCHC RDW Plt Count Lymph % (Auto) Bradley % (Auto) Bradley # Seg Neutrophils % Seg Neuts % (Manual) 83.0 H Lymphocytes % (Manual) 4.5 L Monocytes % (Manual) 8.0 H Seg Neutrophils # Seg Neutrophils # Man 21.1 H Lymphocytes # (Manual) 1.1 L Monocytes # (Manual) 2.0 H Eosinophils # (Manual) PT 17.1 H INR 1.40 H APTT Heparin Anti-Xa Level POC ABG pH POC ABG pCO2 POC ABG pO2 Sodium Potassium Chloride Carbon Dioxide BUN Creatinine Glucose POC Glucose 164 H Calcium Phosphorus Magnesium Total Bilirubin AST Total Creatine Kinase CK-MB (CK-2) Total Protein Albumin Urine Creatinine Urine Chloride 03/19/17 03/19/17 03/19/17 03:54 06:55 06:55 WBC RBC Hgb Hct MCV MCH MCHC RDW Plt Count Lymph % (Auto) Bradley % (Auto) Bradley # Seg Neutrophils % Seg Neuts % (Manual) Lymphocytes % (Manual) Monocytes % (Manual) Seg Neutrophils # Seg Neutrophils # Man Lymphocytes # (Manual) Monocytes # (Manual) Eosinophils # (Manual) PT INR APTT Heparin Anti-Xa Level 0.29 L POC ABG pH POC ABG pCO2 POC ABG pO2 Sodium 146 H Potassium 3.4 L Chloride 97.8 L Carbon Dioxide 33 H BUN 30 H Creatinine Glucose 134 H POC Glucose Calcium Phosphorus Magnesium 1.60 L Total Bilirubin AST Total Creatine Kinase CK-MB (CK-2) Total Protein Albumin Urine Creatinine Urine Chloride 03/19/17 03/19/17 03/19/17 08:01 12:56 14:54 WBC RBC Hgb Hct MCV MCH MCHC RDW Plt Count Lymph % (Auto) Bradley % (Auto) Bradley # Seg Neutrophils % Seg Neuts % (Manual) Lymphocytes % (Manual) Monocytes % (Manual) Seg Neutrophils # Seg Neutrophils # Man Lymphocytes # (Manual) Monocytes # (Manual) Eosinophils # (Manual) PT INR APTT Heparin Anti-Xa Level POC ABG pH POC ABG pCO2 57.8 H POC ABG pO2 71 L Sodium Potassium Chloride Carbon Dioxide BUN Creatinine Glucose POC Glucose 139 H 167 H Calcium Phosphorus Magnesium Total Bilirubin AST Total Creatine Kinase CK-MB (CK-2) Total Protein Albumin Urine Creatinine Urine Chloride 03/19/17 03/19/17 03/20/17 15:53 21:04 03:36 WBC RBC Hgb 15.3 H Hct 48.1 H MCV MCH MCHC RDW Plt Count Lymph % (Auto) Bradley % (Auto) Bradley # Seg Neutrophils % Seg Neuts % (Manual) Lymphocytes % (Manual) Monocytes % (Manual) Seg Neutrophils # Seg Neutrophils # Man Lymphocytes # (Manual) Monocytes # (Manual) Eosinophils # (Manual) PT INR APTT Heparin Anti-Xa Level POC ABG pH POC ABG pCO2 POC ABG pO2 Sodium Potassium Chloride Carbon Dioxide BUN Creatinine Glucose POC Glucose 172 H 159 H Calcium Phosphorus Magnesium Total Bilirubin AST Total Creatine Kinase CK-MB (CK-2) Total Protein Albumin Urine Creatinine Urine Chloride 03/20/17 03/20/17 03/20/17 07:45 12:02 14:07 WBC RBC Hgb Hct MCV MCH MCHC RDW Plt Count Lymph % (Auto) Bradley % (Auto) Bradley # Seg Neutrophils % Seg Neuts % (Manual) Lymphocytes % (Manual) Monocytes % (Manual) Seg Neutrophils # Seg Neutrophils # Man Lymphocytes # (Manual) Monocytes # (Manual) Eosinophils # (Manual) PT INR APTT Heparin Anti-Xa Level POC ABG pH 7.312 L POC ABG pCO2 68.3 H POC ABG pO2 47 L Sodium Potassium Chloride Carbon Dioxide BUN Creatinine Glucose POC Glucose 160 H 142 H Calcium Phosphorus Magnesium Total Bilirubin AST Total Creatine Kinase CK-MB (CK-2) Total Protein Albumin Urine Creatinine Urine Chloride 03/20/17 03/20/17 03/20/17 15:57 15:59 19:50 WBC RBC Hgb Hct MCV MCH MCHC RDW Plt Count Lymph % (Auto) Bradley % (Auto) Bradley # Seg Neutrophils % Seg Neuts % (Manual) Lymphocytes % (Manual) Monocytes % (Manual) Seg Neutrophils # Seg Neutrophils # Man Lymphocytes # (Manual) Monocytes # (Manual) Eosinophils # (Manual) PT INR APTT Heparin Anti-Xa Level POC ABG pH 7.214 L POC ABG pCO2 82.8 H 58.7 H POC ABG pO2 69 L Sodium Potassium Chloride Carbon Dioxide BUN Creatinine Glucose POC Glucose 149 H Calcium Phosphorus Magnesium Total Bilirubin AST Total Creatine Kinase CK-MB (CK-2) Total Protein Albumin Urine Creatinine Urine Chloride 03/20/17 03/20/17 03/21/17 21:19 23:34 04:18 WBC RBC Hgb Hct MCV MCH MCHC RDW Plt Count Lymph % (Auto) Bradley % (Auto) Bradley # Seg Neutrophils % Seg Neuts % (Manual) Lymphocytes % (Manual) Monocytes % (Manual) Seg Neutrophils # Seg Neutrophils # Man Lymphocytes # (Manual) Monocytes # (Manual) Eosinophils # (Manual) PT INR APTT Heparin Anti-Xa Level 0.20 L POC ABG pH POC ABG pCO2 48.6 H POC ABG pO2 79 L Sodium Potassium Chloride Carbon Dioxide BUN Creatinine Glucose POC Glucose 206 H Calcium Phosphorus Magnesium Total Bilirubin AST Total Creatine Kinase CK-MB (CK-2) Total Protein Albumin Urine Creatinine Urine Chloride 03/21/17 03/21/17 03/21/17 04:21 04:21 05:23 WBC RBC Hgb Hct MCV MCH MCHC RDW Plt Count Lymph % (Auto) Bradley % (Auto) Bradley # Seg Neutrophils % Seg Neuts % (Manual) Lymphocytes % (Manual) Monocytes % (Manual) Seg Neutrophils # Seg Neutrophils # Man Lymphocytes # (Manual) Monocytes # (Manual) Eosinophils # (Manual) PT INR APTT Heparin Anti-Xa Level 0.24 L POC ABG pH POC ABG pCO2 POC ABG pO2 Sodium 147 H Potassium Chloride Carbon Dioxide BUN 42 H Creatinine 2.6 H D Glucose 209 H POC Glucose 181 H Calcium 7.9 L Phosphorus Magnesium Total Bilirubin AST Total Creatine Kinase CK-MB (CK-2) Total Protein Albumin Urine Creatinine Urine Chloride 03/21/17 03/21/17 03/21/17 13:16 13:16 14:43 WBC 27.8 H RBC Hgb Hct MCV 101 H D MCH MCHC RDW Plt Count Lymph % (Auto) Bradley % (Auto) Bradley # Seg Neutrophils % Seg Neuts % (Manual) 76.0 H Lymphocytes % (Manual) 7.0 L Monocytes % (Manual) Seg Neutrophils # Seg Neutrophils # Man 21.1 H Lymphocytes # (Manual) Monocytes # (Manual) 1.1 H Eosinophils # (Manual) PT INR APTT Heparin Anti-Xa Level 0.25 L POC ABG pH 7.474 H POC ABG pCO2 POC ABG pO2 59 L Sodium Potassium Chloride Carbon Dioxide BUN Creatinine Glucose POC Glucose Calcium Phosphorus Magnesium Total Bilirubin AST Total Creatine Kinase CK-MB (CK-2) Total Protein Albumin Urine Creatinine Urine Chloride 03/21/17 03/21/17 03/21/17 17:00 18:20 23:40 WBC RBC Hgb Hct MCV MCH MCHC RDW Plt Count Lymph % (Auto) Bradley % (Auto) Bradley # Seg Neutrophils % Seg Neuts % (Manual) Lymphocytes % (Manual) Monocytes % (Manual) Seg Neutrophils # Seg Neutrophils # Man Lymphocytes # (Manual) Monocytes # (Manual) Eosinophils # (Manual) PT INR APTT Heparin Anti-Xa Level POC ABG pH POC ABG pCO2 POC ABG pO2 Sodium Potassium Chloride Carbon Dioxide BUN 48 H Creatinine 3.2 H Glucose 135 H POC Glucose 152 H 136 H Calcium 6.8 L Phosphorus Magnesium Total Bilirubin AST Total Creatine Kinase CK-MB (CK-2) Total Protein 5.3 L D Albumin 1.7 L Urine Creatinine Urine Chloride 03/22/17 03/22/17 03/22/17 04:30 04:30 04:30 WBC 29.3 H RBC Hgb Hct MCV 100 H MCH MCHC 31 L RDW 15.3 H Plt Count Lymph % (Auto) Bradley % (Auto) Bradley # Seg Neutrophils % Seg Neuts % (Manual) Lymphocytes % (Manual) Monocytes % (Manual) Seg Neutrophils # Seg Neutrophils # Man Lymphocytes # (Manual) Monocytes # (Manual) Eosinophils # (Manual) PT INR APTT Heparin Anti-Xa Level 0.29 L POC ABG pH POC ABG pCO2 POC ABG pO2 Sodium Potassium Chloride Carbon Dioxide BUN 60 H Creatinine 4.3 H Glucose 118 H POC Glucose Calcium 8.2 L D Phosphorus Magnesium Total Bilirubin AST Total Creatine Kinase CK-MB (CK-2) Total Protein Albumin 1.8 L Urine Creatinine Urine Chloride 03/22/17 03/22/17 03/22/17 05:08 07:00 07:00 WBC 24.8 H RBC Hgb Hct MCV 100 H MCH MCHC RDW Plt Count Lymph % (Auto) Bradley % (Auto) Bradley # Seg Neutrophils % Seg Neuts % (Manual) 94.0 H Lymphocytes % (Manual) 0 L Monocytes % (Manual) Seg Neutrophils # Seg Neutrophils # Man 23.3 H Lymphocytes # (Manual) 0.0 L Monocytes # (Manual) Eosinophils # (Manual) 0.7 H PT INR APTT Heparin Anti-Xa Level POC ABG pH POC ABG pCO2 POC ABG pO2 Sodium 147 H Potassium Chloride 109.2 H Carbon Dioxide BUN 58 H Creatinine 4.1 H Glucose 117 H POC Glucose 124 H Calcium 7.4 L Phosphorus Magnesium Total Bilirubin AST Total Creatine Kinase CK-MB (CK-2) Total Protein Albumin Urine Creatinine Urine Chloride 03/22/17 03/22/17 03/22/17 08:40 11:37 14:30 WBC RBC Hgb Hct MCV MCH MCHC RDW Plt Count Lymph % (Auto) Bradley % (Auto) Bradley # Seg Neutrophils % Seg Neuts % (Manual) Lymphocytes % (Manual) Monocytes % (Manual) Seg Neutrophils # Seg Neutrophils # Man Lymphocytes # (Manual) Monocytes # (Manual) Eosinophils # (Manual) PT 16.2 H INR 1.31 H APTT 68.9 H* Heparin Anti-Xa Level < 0.10 L POC ABG pH POC ABG pCO2 POC ABG pO2 Sodium Potassium Chloride Carbon Dioxide BUN Creatinine Glucose POC Glucose 159 H Calcium Phosphorus Magnesium Total Bilirubin AST Total Creatine Kinase CK-MB (CK-2) Total Protein Albumin Urine Creatinine Urine Chloride 03/22/17 03/22/17 03/22/17 17:53 21:44 23:54 WBC RBC Hgb 11.6 L Hct 33.1 L MCV MCH MCHC RDW Plt Count Lymph % (Auto) Bradley % (Auto) Bradley # Seg Neutrophils % Seg Neuts % (Manual) Lymphocytes % (Manual) Monocytes % (Manual) Seg Neutrophils # Seg Neutrophils # Man Lymphocytes # (Manual) Monocytes # (Manual) Eosinophils # (Manual) PT INR APTT Heparin Anti-Xa Level POC ABG pH POC ABG pCO2 POC ABG pO2 Sodium Potassium Chloride Carbon Dioxide BUN Creatinine Glucose POC Glucose 142 H 131 H Calcium Phosphorus Magnesium Total Bilirubin AST Total Creatine Kinase CK-MB (CK-2) Total Protein Albumin Urine Creatinine Urine Chloride 03/23/17 03/23/17 03/23/17 04:08 05:29 06:34 WBC RBC Hgb Hct MCV MCH MCHC RDW Plt Count Lymph % (Auto) Bradley % (Auto) Bradley # Seg Neutrophils % Seg Neuts % (Manual) Lymphocytes % (Manual) Monocytes % (Manual) Seg Neutrophils # Seg Neutrophils # Man Lymphocytes # (Manual) Monocytes # (Manual) Eosinophils # (Manual) PT INR APTT Heparin Anti-Xa Level POC ABG pH POC ABG pCO2 POC ABG pO2 75 L Sodium Potassium Chloride Carbon Dioxide 21 L BUN 85 H Creatinine 6.0 H Glucose 134 H POC Glucose 134 H Calcium 8.1 L Phosphorus Magnesium Total Bilirubin AST Total Creatine Kinase CK-MB (CK-2) Total Protein Albumin Urine Creatinine Urine Chloride 03/23/17 03/23/17 03/23/17 12:09 17:20 17:52 WBC RBC Hgb Hct MCV MCH MCHC RDW Plt Count Lymph % (Auto) Bradley % (Auto) Bradley # Seg Neutrophils % Seg Neuts % (Manual) Lymphocytes % (Manual) Monocytes % (Manual) Seg Neutrophils # Seg Neutrophils # Man Lymphocytes # (Manual) Monocytes # (Manual) Eosinophils # (Manual) PT INR APTT Heparin Anti-Xa Level 1.39 H POC ABG pH POC ABG pCO2 POC ABG pO2 Sodium Potassium Chloride Carbon Dioxide BUN Creatinine Glucose POC Glucose 133 H 151 H Calcium Phosphorus Magnesium Total Bilirubin AST Total Creatine Kinase CK-MB (CK-2) Total Protein Albumin Urine Creatinine Urine Chloride 03/23/17 03/24/17 03/24/17 23:59 03:15 03:15 WBC 23.9 H RBC 3.58 L Hgb 11.6 L Hct 34.6 L MCV 97 H D MCH MCHC RDW Plt Count 122 L Lymph % (Auto) Bradley % (Auto) Bradley # Seg Neutrophils % Seg Neuts % (Manual) Lymphocytes % (Manual) Monocytes % (Manual) Seg Neutrophils # Seg Neutrophils # Man Lymphocytes # (Manual) Monocytes # (Manual) Eosinophils # (Manual) PT INR APTT Heparin Anti-Xa Level POC ABG pH POC ABG pCO2 POC ABG pO2 Sodium 135 L Potassium Chloride 95.0 L Carbon Dioxide BUN 71 H Creatinine 5.2 H Glucose 123 H POC Glucose 124 H Calcium 8.0 L Phosphorus Magnesium Total Bilirubin AST Total Creatine Kinase CK-MB (CK-2) Total Protein Albumin Urine Creatinine Urine Chloride 03/24/17 03/24/17 03/24/17 03:15 04:53 11:58 WBC RBC Hgb Hct MCV MCH MCHC RDW Plt Count Lymph % (Auto) Bradley % (Auto) Bradley # Seg Neutrophils % Seg Neuts % (Manual) Lymphocytes % (Manual) Monocytes % (Manual) Seg Neutrophils # Seg Neutrophils # Man Lymphocytes # (Manual) Monocytes # (Manual) Eosinophils # (Manual) PT INR APTT Heparin Anti-Xa Level 0.20 L POC ABG pH POC ABG pCO2 POC ABG pO2 72 L Sodium Potassium Chloride Carbon Dioxide BUN Creatinine Glucose POC Glucose 121 H Calcium Phosphorus Magnesium Total Bilirubin AST Total Creatine Kinase CK-MB (CK-2) Total Protein Albumin Urine Creatinine Urine Chloride 03/24/17 03/25/17 03/25/17 18:16 00:24 05:30 WBC RBC Hgb Hct MCV MCH MCHC RDW Plt Count Lymph % (Auto) Bradley % (Auto) Bradley # Seg Neutrophils % Seg Neuts % (Manual) Lymphocytes % (Manual) Monocytes % (Manual) Seg Neutrophils # Seg Neutrophils # Man Lymphocytes # (Manual) Monocytes # (Manual) Eosinophils # (Manual) PT INR APTT Heparin Anti-Xa Level POC ABG pH POC ABG pCO2 34.2 L POC ABG pO2 Sodium Potassium Chloride Carbon Dioxide BUN Creatinine Glucose POC Glucose 117 H 107 H Calcium Phosphorus Magnesium Total Bilirubin AST Total Creatine Kinase CK-MB (CK-2) Total Protein Albumin Urine Creatinine Urine Chloride 03/25/17 03/25/17 03/25/17 05:35 11:45 16:48 WBC RBC Hgb Hct MCV MCH MCHC RDW Plt Count Lymph % (Auto) Bradley % (Auto) Bradley # Seg Neutrophils % Seg Neuts % (Manual) Lymphocytes % (Manual) Monocytes % (Manual) Seg Neutrophils # Seg Neutrophils # Man Lymphocytes # (Manual) Monocytes # (Manual) Eosinophils # (Manual) PT INR APTT Heparin Anti-Xa Level POC ABG pH POC ABG pCO2 POC ABG pO2 Sodium 132 L Potassium Chloride 92.0 L Carbon Dioxide 20 L BUN 102 H Creatinine 7.2 H Glucose 101 H POC Glucose 127 H 114 H Calcium 8.3 L Phosphorus Magnesium Total Bilirubin AST Total Creatine Kinase CK-MB (CK-2) Total Protein Albumin Urine Creatinine Urine Chloride 03/26/17 03/26/17 03/26/17 00:17 04:15 04:15 WBC 21.1 H RBC 3.52 L Hgb 11.0 L Hct 33.2 L MCV 95 H MCH MCHC RDW Plt Count 121 L Lymph % (Auto) Bradley % (Auto) Bradley # Seg Neutrophils % Seg Neuts % (Manual) Lymphocytes % (Manual) Monocytes % (Manual) Seg Neutrophils # Seg Neutrophils # Man Lymphocytes # (Manual) Monocytes # (Manual) Eosinophils # (Manual) PT INR APTT Heparin Anti-Xa Level POC ABG pH POC ABG pCO2 POC ABG pO2 Sodium 133 L Potassium Chloride 92.9 L Carbon Dioxide 21 L BUN 77 H Creatinine 5.4 H Glucose 115 H POC Glucose 114 H Calcium 8.1 L Phosphorus Magnesium Total Bilirubin AST Total Creatine Kinase CK-MB (CK-2) Total Protein Albumin Urine Creatinine Urine Chloride 03/26/17 03/26/17 03/26/17 04:49 11:36 23:29 WBC RBC Hgb Hct MCV MCH MCHC RDW Plt Count Lymph % (Auto) Bradley % (Auto) Bradley # Seg Neutrophils % Seg Neuts % (Manual) Lymphocytes % (Manual) Monocytes % (Manual) Seg Neutrophils # Seg Neutrophils # Man Lymphocytes # (Manual) Monocytes # (Manual) Eosinophils # (Manual) PT INR APTT Heparin Anti-Xa Level POC ABG pH POC ABG pCO2 POC ABG pO2 Sodium Potassium Chloride Carbon Dioxide BUN Creatinine Glucose POC Glucose 127 H 123 H 125 H Calcium Phosphorus Magnesium Total Bilirubin AST Total Creatine Kinase CK-MB (CK-2) Total Protein Albumin Urine Creatinine Urine Chloride 03/27/17 03/27/17 03/27/17 04:00 04:46 05:06 WBC RBC Hgb Hct MCV MCH MCHC RDW Plt Count Lymph % (Auto) Bradley % (Auto) Bradley # Seg Neutrophils % Seg Neuts % (Manual) Lymphocytes % (Manual) Monocytes % (Manual) Seg Neutrophils # Seg Neutrophils # Man Lymphocytes # (Manual) Monocytes # (Manual) Eosinophils # (Manual) PT INR APTT Heparin Anti-Xa Level POC ABG pH POC ABG pCO2 31.4 L POC ABG pO2 Sodium 132 L Potassium Chloride 90.5 L Carbon Dioxide 19 L BUN 95 H Creatinine 6.7 H Glucose 110 H POC Glucose 116 H Calcium Phosphorus Magnesium Total Bilirubin AST Total Creatine Kinase CK-MB (CK-2) Total Protein Albumin Urine Creatinine Urine Chloride 03/27/17 03/27/17 03/27/17 08:11 08:11 11:34 WBC 24.7 H RBC Hgb 11.5 L Hct 35.0 L MCV 95 H MCH MCHC RDW Plt Count Lymph % (Auto) Bradley % (Auto) Bradley # Seg Neutrophils % Seg Neuts % (Manual) Lymphocytes % (Manual) Monocytes % (Manual) Seg Neutrophils # Seg Neutrophils # Man Lymphocytes # (Manual) Monocytes # (Manual) Eosinophils # (Manual) PT INR APTT Heparin Anti-Xa Level < 0.10 L POC ABG pH POC ABG pCO2 POC ABG pO2 Sodium Potassium Chloride Carbon Dioxide BUN Creatinine Glucose POC Glucose 118 H Calcium Phosphorus Magnesium Total Bilirubin AST Total Creatine Kinase CK-MB (CK-2) Total Protein Albumin Urine Creatinine Urine Chloride 03/27/17 03/27/17 03/28/17 16:44 23:59 05:07 WBC RBC Hgb Hct MCV MCH MCHC RDW Plt Count Lymph % (Auto) Bradley % (Auto) Bradley # Seg Neutrophils % Seg Neuts % (Manual) Lymphocytes % (Manual) Monocytes % (Manual) Seg Neutrophils # Seg Neutrophils # Man Lymphocytes # (Manual) Monocytes # (Manual) Eosinophils # (Manual) PT INR APTT Heparin Anti-Xa Level POC ABG pH POC ABG pCO2 POC ABG pO2 Sodium Potassium Chloride Carbon Dioxide BUN Creatinine Glucose POC Glucose 110 H 109 H 110 H Calcium Phosphorus Magnesium Total Bilirubin AST Total Creatine Kinase CK-MB (CK-2) Total Protein Albumin Urine Creatinine Urine Chloride 03/28/17 03/28/17 03/28/17 07:00 11:24 11:50 WBC 26.6 H RBC 3.42 L Hgb 10.8 L Hct 33.2 L MCV 97 H MCH MCHC RDW 15.4 H Plt Count Lymph % (Auto) Bradley % (Auto) Bradley # Seg Neutrophils % Seg Neuts % (Manual) Lymphocytes % (Manual) Monocytes % (Manual) Seg Neutrophils # Seg Neutrophils # Man Lymphocytes # (Manual) Monocytes # (Manual) Eosinophils # (Manual) PT INR APTT Heparin Anti-Xa Level POC ABG pH POC ABG pCO2 POC ABG pO2 Sodium 131 L Potassium 5.3 H Chloride 86.6 L Carbon Dioxide 17 L BUN 112 H Creatinine 7.9 H Glucose 120 H POC Glucose 141 H Calcium Phosphorus Magnesium Total Bilirubin AST Total Creatine Kinase CK-MB (CK-2) Total Protein Albumin Urine Creatinine Urine Chloride 03/28/17 03/28/17 03/28/17 17:25 18:04 23:07 WBC RBC Hgb Hct MCV MCH MCHC RDW Plt Count Lymph % (Auto) Bradley % (Auto) Bradley # Seg Neutrophils % Seg Neuts % (Manual) Lymphocytes % (Manual) Monocytes % (Manual) Seg Neutrophils # Seg Neutrophils # Man Lymphocytes # (Manual) Monocytes # (Manual) Eosinophils # (Manual) PT INR APTT Heparin Anti-Xa Level 0.23 L POC ABG pH POC ABG pCO2 POC ABG pO2 Sodium Potassium Chloride Carbon Dioxide BUN Creatinine Glucose POC Glucose 128 H 115 H Calcium Phosphorus Magnesium Total Bilirubin AST Total Creatine Kinase CK-MB (CK-2) Total Protein Albumin Urine Creatinine Urine Chloride 03/29/17 03/29/17 03/29/17 03:23 05:16 08:20 WBC RBC Hgb Hct MCV MCH MCHC RDW Plt Count Lymph % (Auto) Bradley % (Auto) Bradley # Seg Neutrophils % Seg Neuts % (Manual) Lymphocytes % (Manual) Monocytes % (Manual) Seg Neutrophils # Seg Neutrophils # Man Lymphocytes # (Manual) Monocytes # (Manual) Eosinophils # (Manual) PT INR APTT Heparin Anti-Xa Level 0.10 L POC ABG pH POC ABG pCO2 POC ABG pO2 Sodium 126 L Potassium 5.6 H Chloride 87.5 L Carbon Dioxide 21 L BUN 84 H Creatinine 6.0 H Glucose 144 H POC Glucose 146 H Calcium 7.9 L Phosphorus Magnesium Total Bilirubin AST Total Creatine Kinase CK-MB (CK-2) Total Protein Albumin Urine Creatinine Urine Chloride 03/29/17 03/29/17 03/29/17 08:20 09:13 10:00 WBC 27.6 H RBC 3.27 L Hgb 10.2 L Hct 31.8 L MCV 97 H MCH MCHC RDW 15.3 H Plt Count Lymph % (Auto) Bradley % (Auto) Bradley # Seg Neutrophils % Seg Neuts % (Manual) Lymphocytes % (Manual) Monocytes % (Manual) Seg Neutrophils # Seg Neutrophils # Man Lymphocytes # (Manual) Monocytes # (Manual) Eosinophils # (Manual) PT INR APTT Heparin Anti-Xa Level 0.84 H POC ABG pH 7.204 L POC ABG pCO2 52.8 H POC ABG pO2 57 L Sodium Potassium Chloride Carbon Dioxide BUN Creatinine Glucose POC Glucose Calcium Phosphorus Magnesium Total Bilirubin AST Total Creatine Kinase CK-MB (CK-2) Total Protein Albumin Urine Creatinine Urine Chloride 03/29/17 03/29/17 03/29/17 10:24 12:27 16:44 WBC RBC Hgb Hct MCV MCH MCHC RDW Plt Count Lymph % (Auto) Bradley % (Auto) Bradley # Seg Neutrophils % Seg Neuts % (Manual) Lymphocytes % (Manual) Monocytes % (Manual) Seg Neutrophils # Seg Neutrophils # Man Lymphocytes # (Manual) Monocytes # (Manual) Eosinophils # (Manual) PT INR APTT Heparin Anti-Xa Level < 0.10 L POC ABG pH 7.305 L POC ABG pCO2 POC ABG pO2 73 L Sodium Potassium Chloride Carbon Dioxide BUN Creatinine Glucose POC Glucose 152 H Calcium Phosphorus Magnesium Total Bilirubin AST Total Creatine Kinase CK-MB (CK-2) Total Protein Albumin Urine Creatinine Urine Chloride 03/29/17 03/29/17 03/29/17 17:48 18:56 22:10 WBC RBC Hgb Hct MCV MCH MCHC RDW Plt Count Lymph % (Auto) Bradley % (Auto) Bradley # Seg Neutrophils % Seg Neuts % (Manual) Lymphocytes % (Manual) Monocytes % (Manual) Seg Neutrophils # Seg Neutrophils # Man Lymphocytes # (Manual) Monocytes # (Manual) Eosinophils # (Manual) PT INR APTT Heparin Anti-Xa Level POC ABG pH POC ABG pCO2 POC ABG pO2 Sodium 125 L Potassium 5.8 H Chloride 85.4 L Carbon Dioxide 16 L BUN 96 H Creatinine 6.9 H Glucose 135 H POC Glucose 130 H Calcium Phosphorus Magnesium Total Bilirubin AST Total Creatine Kinase CK-MB (CK-2) Total Protein Albumin Urine Creatinine 86.5 H Urine Chloride 15.2 L 03/30/17 03/30/17 03/30/17 00:11 01:00 05:42 WBC RBC Hgb Hct MCV MCH MCHC RDW Plt Count Lymph % (Auto) Bradley % (Auto) Bradley # Seg Neutrophils % Seg Neuts % (Manual) Lymphocytes % (Manual) Monocytes % (Manual) Seg Neutrophils # Seg Neutrophils # Man Lymphocytes # (Manual) Monocytes # (Manual) Eosinophils # (Manual) PT INR APTT Heparin Anti-Xa Level 0.80 H POC ABG pH POC ABG pCO2 POC ABG pO2 Sodium Potassium Chloride Carbon Dioxide BUN Creatinine Glucose POC Glucose 146 H 162 H Calcium Phosphorus Magnesium Total Bilirubin AST Total Creatine Kinase CK-MB (CK-2) Total Protein Albumin Urine Creatinine Urine Chloride 03/30/17 03/30/17 03/30/17 07:32 07:38 08:20 WBC 27.7 H RBC 3.14 L Hgb 9.7 L Hct 30.1 L MCV 96 H MCH MCHC RDW 16.2 H Plt Count Lymph % (Auto) Bradley % (Auto) Bradley # Seg Neutrophils % Seg Neuts % (Manual) 93.0 H Lymphocytes % (Manual) 1.0 L Monocytes % (Manual) Seg Neutrophils # Seg Neutrophils # Man 25.8 H Lymphocytes # (Manual) 0.3 L Monocytes # (Manual) 1.0 H Eosinophils # (Manual) PT INR APTT Heparin Anti-Xa Level 0.99 H POC ABG pH POC ABG pCO2 POC ABG pO2 Sodium 127 L Potassium 5.9 H Chloride 88.5 L Carbon Dioxide 16 L BUN 101 H Creatinine 7.5 H Glucose 147 H POC Glucose Calcium 8.0 L Phosphorus Magnesium Total Bilirubin AST Total Creatine Kinase CK-MB (CK-2) Total Protein Albumin Urine Creatinine Urine Chloride 03/30/17 03/30/17 03/30/17 12:19 16:07 16:58 WBC RBC Hgb Hct MCV MCH MCHC RDW Plt Count Lymph % (Auto) Bradley % (Auto) Bradley # Seg Neutrophils % Seg Neuts % (Manual) Lymphocytes % (Manual) Monocytes % (Manual) Seg Neutrophils # Seg Neutrophils # Man Lymphocytes # (Manual) Monocytes # (Manual) Eosinophils # (Manual) PT INR APTT Heparin Anti-Xa Level 1.07 H POC ABG pH POC ABG pCO2 POC ABG pO2 62 L Sodium Potassium Chloride Carbon Dioxide BUN Creatinine Glucose POC Glucose 179 H Calcium Phosphorus Magnesium Total Bilirubin AST Total Creatine Kinase CK-MB (CK-2) Total Protein Albumin Urine Creatinine Urine Chloride 03/30/17 03/30/17 03/31/17 17:48 Unknown 00:25 WBC RBC Hgb Hct MCV MCH MCHC RDW Plt Count Lymph % (Auto) Bradley % (Auto) Bradley # Seg Neutrophils % Seg Neuts % (Manual) Lymphocytes % (Manual) Monocytes % (Manual) Seg Neutrophils # Seg Neutrophils # Man Lymphocytes # (Manual) Monocytes # (Manual) Eosinophils # (Manual) PT INR APTT Heparin Anti-Xa Level POC ABG pH POC ABG pCO2 POC ABG pO2 Sodium 124 L Potassium 5.2 H Chloride 86.6 L Carbon Dioxide 16 L BUN 93 H Creatinine 6.3 H Glucose 153 H POC Glucose 162 H 139 H Calcium 7.4 L D Phosphorus Magnesium Total Bilirubin AST Total Creatine Kinase CK-MB (CK-2) Total Protein Albumin Urine Creatinine Urine Chloride 03/31/17 03/31/17 03/31/17 04:18 Unknown Unknown WBC 25.9 H RBC 3.04 L Hgb 9.6 L Hct 29.9 L MCV 98 H MCH MCHC RDW 16.1 H Plt Count Lymph % (Auto) Bradley % (Auto) Bradley # Seg Neutrophils % Seg Neuts % (Manual) Lymphocytes % (Manual) Monocytes % (Manual) Seg Neutrophils # Seg Neutrophils # Man Lymphocytes # (Manual) Monocytes # (Manual) Eosinophils # (Manual) PT INR APTT Heparin Anti-Xa Level POC ABG pH 7.209 L POC ABG pCO2 55.7 H POC ABG pO2 106 H Sodium 133 L Potassium Chloride 91.6 L Carbon Dioxide 20 L BUN 67 H Creatinine 5.3 H Glucose 129 H POC Glucose Calcium 7.4 L Phosphorus Magnesium Total Bilirubin AST Total Creatine Kinase CK-MB (CK-2) Total Protein Albumin Urine Creatinine Urine Chloride Chest x-ray: report reviewed, image reviewed
[2017-03-31] MEDS: LOPRESSOR PO SCH ×3 (08:26→21:25)
[2017-03-31] MEDS: APRESOLINE PO SCH ×3 (08:26→21:50)
--- NOTE | 2017-03-31 09:54 | Progress Note ---
Assessment and Plan - Patient Problems (1) KATHRIN (acute kidney injury) Current Visit: Yes Status: Acute Plan to address problem: KATHRIN possible ATN. Multiple comorbid conditions. Spoke with pt's nurse, notes reviewed. HD as ordered with UF as tolerated (2) Acute respiratory failure Current Visit: Yes Status: Acute Qualifiers: Respiratory failure complication: hypoxia Qualified Code(s): J96.01 - Acute respiratory failure with hypoxia (3) Atrial fibrillation with RVR Current Visit: Yes Status: Acute (4) Cardiomyopathy Current Visit: Yes Status: Chronic Qualifiers: Cardiomyopathy type: C (5) Leucocytosis Current Visit: Yes Status: Acute Qualifiers: Leukocytosis type: L (6) Encephalopathy Current Visit: Yes Status: Acute (7) UTI (urinary tract infection) Current Visit: Yes Status: Acute Qualifiers: Urinary tract infection type: U Hematuria presence: H Indwelling urinary catheter type: I Encounter type: E (8) Deep vein thrombosis (DVT) Current Visit: Yes Status: Acute Qualifiers: DVT location: lower extremity Affected thrombotic vein of extremity: A Chronicity: C Laterality: left (9) Hyperkalemia Current Visit: Yes Status: Acute Plan to address problem: betterl (10) Hyponatremia Current Visit: Yes Status: Acute Plan to address problem: better Subjective Date of service: 03/31/17 Principal diagnosis: afib, EtOH abuse, morbid obesity, respiratory failure status post extubatio Interval history: pt is lethargic, non communicative, orally intubated, on ventilator, Fio2- 50%. Spoke with pt's nurse, chart was reviewed. 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 Objective - Vital Signs Vital signs: Vital Signs - 12hr 03/30/17 03/30/17 03/30/17 22:00 22:01 22:30 Temperature Pulse Rate 92 H 92 H 91 H Pulse Rate [ From Monitor] Respiratory 22 17 Rate Blood Pressure 127/78 104/74 117/76 O2 Sat by Pulse 98 97 Oximetry 03/30/17 03/30/17 03/30/17 23:00 23:18 23:30 Temperature Pulse Rate 90 91 H 103 H Pulse Rate [ From Monitor] Respiratory 18 20 16 Rate Blood Pressure 124/73 124/73 125/83 O2 Sat by Pulse 99 100 99 Oximetry 03/30/17 03/31/17 03/31/17 23:57 00:00 00:30 Temperature 97.4 F L Pulse Rate 87 95 H 96 H Pulse Rate [ 86 From Monitor] Respiratory 19 17 Rate Blood Pressure 125/83 129/85 125/83 O2 Sat by Pulse 99 97 96 Oximetry 03/31/17 03/31/17 03/31/17 00:56 01:00 01:30 Temperature Pulse Rate 97 H 89 88 Pulse Rate [ From Monitor] Respiratory 17 12 Rate Blood Pressure 125/83 127/84 112/72 O2 Sat by Pulse 97 95 Oximetry 03/31/17 03/31/17 03/31/17 02:00 02:30 03:00 Temperature Pulse Rate 95 H 92 H 78 Pulse Rate [ From Monitor] Respiratory 13 17 11 L Rate Blood Pressure 111/79 124/82 105/71 O2 Sat by Pulse 97 96 Oximetry 03/31/17 03/31/17 03/31/17 03:30 03:58 04:00 Temperature 96.1 F L Pulse Rate 95 H 85 96 H Pulse Rate [ 84 From Monitor] Respiratory 11 L 12 Rate Blood Pressure 114/81 114/81 111/74 O2 Sat by Pulse 98 97 Oximetry 03/31/17 03/31/17 03/31/17 04:30 05:00 05:30 Temperature Pulse Rate 89 85 92 H Pulse Rate [ From Monitor] Respiratory 12 13 11 L Rate Blood Pressure 108/70 117/76 109/75 O2 Sat by Pulse 97 98 99 Oximetry 03/31/17 03/31/17 03/31/17 06:00 06:28 06:30 Temperature Pulse Rate 95 H 90 85 Pulse Rate [ From Monitor] Respiratory 17 17 Rate Blood Pressure 109/75 122/96 124/85 O2 Sat by Pulse 98 98 Oximetry 03/31/17 03/31/17 03/31/17 07:00 07:30 08:00 Temperature Pulse Rate 93 H 90 86 Pulse Rate [ From Monitor] Respiratory 17 Rate Blood Pressure 129/79 125/85 127/77 O2 Sat by Pulse 100 99 100 Oximetry 03/31/17 08:26 Temperature Pulse Rate Pulse Rate [ From Monitor] Respiratory Rate Blood Pressure 120/77 O2 Sat by Pulse Oximetry - General Appearance General appearance: well-developed, sedated on ventilator EENT: mucous membranes dry Neck: no JVD Respiratory: Present: Decreased Breath Sounds Cardiology: irregular Gastrointestinal: normoactive bowel sounds Musculoskeletal: other (2+ edema) - Lab 03/31/17 Unknown 03/31/17 Unknown Most recent lab results Calcium 7.4 mg/dL (8.4-10.2) L 03/31/17 Unknown Phosphorus 4.60 mg/dL (2.5-4.5) H 03/06/17 04:50 Magnesium 1.60 mg/dL (1.7-2.3) L 03/19/17 06:55 Urine Creatinine 86.5 mg/dL (0.1-20.0) H 03/29/17 22:10 Urine Sodium 28 mEq/L 03/29/17 22:10
[2017-03-31] MEDS: DUONEB *Not for PRN Use IH SCH ×3 (10:00→20:22)
[2017-03-31] MEDS ORDERED: NACL 0.9% 100 ML IV PRN (10:30)
[2017-03-31] MEDS: PROTONIX PO SCH (10:38)
[2017-03-31] MEDS: FOLVITE PO SCH (10:38)
[2017-03-31] MEDS: VITAMIN B-1 PO SCH (10:38)
--- NOTE | 2017-03-31 14:30 | Cat Scan Report ---
CT HEAD WITHOUT CONTRAST: HISTORY: Altered mental status. Serial contiguous axial images were obtained through the cranium. Intravenous contrast material was not administered. The ventricles are normal in size and appearance. There is no mass effect or midline shift. No areas of abnormally increased or decreased attenuation are seen. No mass lesion is seen. There is moderate mucosal thickening in the ethmoid air cells, sphenoid sinuses and left maxillary sinus. A left nasal tube is in place. IMPRESSION: No acute intracranial process.
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
[2017-03-31] MEDS: ATIVAN IV PRN (19:15)
[2017-03-31] MEDS: MERREM/NS 500 MG/50 ML 500 MG/50 ML BAG IV SCH (20:18)
[2017-03-31] MEDS: HEPARIN IV PRN (22:07)
[2017-04-01] MEDS: NOVOLOG SUB-Q SCH ×4 (00:30→18:18)
[2017-04-01] MEDS: CARDIZEM PO SCH ×3 (05:22→18:20)
[2017-04-01 05:28] LABS: ISTAT Base Excess 2; ISTAT HCO3 26.1; ISTAT PH 7.422 (7.35-7.45); ISTAT PO2 132 (80-105); ISTAT SO2 99; ISTAT TCO2 27
[2017-04-01 07:05] LABS: Hemoglobin 9.6 gm/dl (11.8-15.2); Mean Corpuscular HGB Conc 33 % (32-34); Mean Corpuscular Hemoglobin 32 pg (28-32); Mean Corpuscular Volume 96 fl (84-94); Platelet Count 165 K/mm3 (140-440); Red Blood Count 3.02 M/mm3 (3.65-5.03); White Blood Count 16.1 K/mm3 (4.5-11.0)
[2017-04-01 07:30] LABS: BUN/Creatinine Ratio 10.97; Calcium 7.1 mg/dL (8.4-10.2); Potassium 3.1 mmol/L (3.6-5.0)
--- NOTE | 2017-04-01 08:48 | Progress Note ---
Assessment and Plan - Patient Problems (1) KATHRIN (acute kidney injury) Current Visit: Yes Status: Acute (2) Acute respiratory failure Current Visit: Yes Status: Acute Qualifiers: Respiratory failure complication: hypoxia Qualified Code(s): J96.01 - Acute respiratory failure with hypoxia (3) Alcohol withdrawal syndrome Current Visit: Yes Status: Acute Qualifiers: Complication of substance-induced condition: C (4) Atrial fibrillation with RVR Current Visit: Yes Status: Acute (5) Contusion of rib on left side Current Visit: Yes Status: Acute Qualifiers: Encounter type: subsequent encounter Qualified Code(s): S20.212D - Contusion of left front wall of thorax, subsequent encounter (6) Alcohol abuse Current Visit: Yes Status: Chronic (7) Cardiomyopathy Current Visit: Yes Status: Chronic Qualifiers: Cardiomyopathy type: C Subjective Principal diagnosis: afib, EtOH abuse, morbid obesity, respiratory failure status post extubatio Interval history: awake and responsive on vent Objective - Constitutional Vitals: Vital Signs - 12hr 03/31/17 03/31/17 03/31/17 21:00 21:18 21:25 Temperature Pulse Rate 91 H 85 89 Respiratory 14 Rate Blood Pressure 122/71 122/71 124/83 O2 Sat by Pulse 99 Oximetry O2 Sat by Pulse Oximetry [ Anterior Bilateral Throughout] 03/31/17 03/31/17 03/31/17 21:30 21:45 22:00 Temperature Pulse Rate 86 89 87 Respiratory 19 14 Rate Blood Pressure 122/71 112/76 118/78 O2 Sat by Pulse 99 98 Oximetry O2 Sat by Pulse Oximetry [ Anterior Bilateral Throughout] 03/31/17 03/31/17 03/31/17 22:01 22:08 22:10 Temperature 97.8 F Pulse Rate 87 90 87 Respiratory 13 11 L 16 Rate Blood Pressure 109/74 118/78 O2 Sat by Pulse 97 99 Oximetry O2 Sat by Pulse 98 Oximetry [ Anterior Bilateral Throughout] 03/31/17 03/31/17 03/31/17 22:30 23:00 23:29 Temperature Pulse Rate 96 H 85 85 Respiratory 11 L 12 Rate Blood Pressure 125/78 110/74 115/76 O2 Sat by Pulse 97 99 Oximetry O2 Sat by Pulse Oximetry [ Anterior Bilateral Throughout] 03/31/17 04/01/17 04/01/17 23:30 00:00 00:05 Temperature 99.3 F Pulse Rate 81 88 98 H Respiratory 16 16 Rate Blood Pressure 118/70 122/82 O2 Sat by Pulse 99 98 99 Oximetry O2 Sat by Pulse Oximetry [ Anterior Bilateral Throughout] 04/01/17 04/01/17 04/01/17 00:06 00:30 01:00 Temperature Pulse Rate 98 H 95 H 79 Respiratory 15 12 Rate Blood Pressure 122/82 130/79 113/65 O2 Sat by Pulse 97 99 99 Oximetry O2 Sat by Pulse Oximetry [ Anterior Bilateral Throughout] 04/01/17 04/01/17 04/01/17 01:24 01:30 02:00 Temperature Pulse Rate 87 89 Respiratory 13 13 12 Rate Blood Pressure 114/72 121/72 O2 Sat by Pulse 99 99 99 Oximetry O2 Sat by Pulse Oximetry [ Anterior Bilateral Throughout] 04/01/17 04/01/17 04/01/17 02:30 03:00 03:30 Temperature Pulse Rate 91 H 90 95 H Respiratory 15 15 17 Rate Blood Pressure 131/82 119/80 150/88 O2 Sat by Pulse 98 98 96 Oximetry O2 Sat by Pulse Oximetry [ Anterior Bilateral Throughout] 04/01/17 04/01/17 04/01/17 04:00 04:30 04:35 Temperature 98.8 F Pulse Rate 93 H 91 H 96 H Respiratory 16 15 Rate Blood Pressure 136/85 146/82 136/85 O2 Sat by Pulse 98 99 100 Oximetry O2 Sat by Pulse Oximetry [ Anterior Bilateral Throughout] 04/01/17 04/01/17 04/01/17 05:00 05:22 05:25 Temperature Pulse Rate 95 H 107 H 87 Respiratory 19 Rate Blood Pressure 142/88 142/88 O2 Sat by Pulse 100 95 Oximetry O2 Sat by Pulse Oximetry [ Anterior Bilateral Throughout] 04/01/17 04/01/17 04/01/17 05:30 06:00 06:30 Temperature Pulse Rate 87 86 83 Respiratory 15 11 L 14 Rate Blood Pressure 150/75 127/80 138/83 O2 Sat by Pulse 97 97 96 Oximetry O2 Sat by Pulse Oximetry [ Anterior Bilateral Throughout] 04/01/17 04/01/17 04/01/17 07:00 07:30 08:00 Temperature Pulse Rate 95 H 88 93 H Respiratory 15 13 17 Rate Blood Pressure 129/82 143/77 151/84 O2 Sat by Pulse 99 98 98 Oximetry O2 Sat by Pulse Oximetry [ Anterior Bilateral Throughout] 04/01/17 08:30 Temperature Pulse Rate 87 Respiratory 15 Rate Blood Pressure 138/88 O2 Sat by Pulse 98 Oximetry O2 Sat by Pulse Oximetry [ Anterior Bilateral Throughout] General appearance: Present: no acute distress (on vent orally intubated) - EENT Eyes: PERRL - Neck Neck: supple - Respiratory Respiratory effort: normal Respiratory: bilateral: rhonchi (rare), negative: rales, wheezing - Cardiovascular Rhythm: regular Heart Sounds: Present: S1 & S2 Extremity abnormal: edema - Gastrointestinal General gastrointestinal: Present: soft, non-tender, normal bowel sounds - Neurologic Neurologic: other (awake on vent) - Labs CBC & Chem 7: 04/01/17 04:00 04/01/17 04:00 Labs: Abnormal lab results 03/31/17 03/31/17 03/31/17 Range/Units 05:21 11:39 16:53 WBC (4.5-11.0) K/mm3 RBC (3.65-5.03) M/mm3 Hgb (11.8-15.2) gm/dl Hct (35.5-45.6) % MCV (84-94) fl RDW (13.2-15.2) % POC ABG pO2 (80-105) Potassium (3.6-5.0) mmol/L Chloride (98-107) mmol/L BUN (9-20) mg/dL Creatinine (0.8-1.5) mg/dL POC Glucose 133 H 133 H 146 H (70-105) Calcium (8.4-10.2) mg/dL 03/31/17 04/01/17 04/01/17 Range/Units 23:59 04:00 04:00 WBC 16.1 H (4.5-11.0) K/mm3 RBC 3.02 L (3.65-5.03) M/mm3 Hgb 9.6 L (11.8-15.2) gm/dl Hct 29.0 L (35.5-45.6) % MCV 96 H (84-94) fl RDW 16.0 H (13.2-15.2) % POC ABG pO2 (80-105) Potassium 3.1 L D (3.6-5.0) mmol/L Chloride 96.0 L (98-107) mmol/L BUN 45 H (9-20) mg/dL Creatinine 4.1 H (0.8-1.5) mg/dL POC Glucose 121 H (70-105) Calcium 7.1 L (8.4-10.2) mg/dL 04/01/17 Range/Units 05:20 WBC (4.5-11.0) K/mm3 RBC (3.65-5.03) M/mm3 Hgb (11.8-15.2) gm/dl Hct (35.5-45.6) % MCV (84-94) fl RDW (13.2-15.2) % POC ABG pO2 132 H (80-105) Potassium (3.6-5.0) mmol/L Chloride (98-107) mmol/L BUN (9-20) mg/dL Creatinine (0.8-1.5) mg/dL POC Glucose (70-105) Calcium (8.4-10.2) mg/dL - Imaging and cardiology Chest x-ray: report reviewed, image reviewed (decreased aeration of lll)
[2017-04-01] MEDS: LOPRESSOR PO SCH ×3 (09:00→20:49)
[2017-04-01] MEDS: APRESOLINE PO SCH ×3 (09:00→20:50)
[2017-04-01] MEDS: DUONEB *Not for PRN Use IH SCH ×3 (09:14→20:02)
[2017-04-01] MEDS: PROTONIX PO SCH (09:36)
[2017-04-01] MEDS: FOLVITE PO SCH (09:36)
[2017-04-01] MEDS: VITAMIN B-1 PO SCH (09:37)
[2017-04-01] MEDS ORDERED: XYLOCAINE 2% INFILTRATI ONE ×2 (09:56→14:00)
[2017-04-01] MEDS ORDERED: NACL 0.9% 1,000 ML IR ONE (09:57)
--- NOTE | 2017-04-01 10:17 | XRay Report ---
AP chest History: Followup left lower lobe pneumonia Findings: There is poor aeration of the left lower lobe with airspace disease which is unchanged since yesterday's exam. The left upper lobe and right lung remain generally clear. Mild cardiomegaly and vascular congestion are stable. Small left pleural effusion is likely present. Lines and support devices remain in good position. Impression: No change.
[2017-04-01] MEDS ORDERED: VERSED IV ONE (10:21)
[2017-04-01] MEDS ORDERED: NACL 0.9% 100 ML IV PRN (12:07)
--- NOTE | 2017-04-01 12:07 | Progress Note ---
Assessment and Plan Impression: * KATHRIN--oliguric * vanco toxicity vs ATN * HTN * CM ef 40% * Afib with RVR * etoh withdrawal * asp PNA * UTI * Nephrolithiasis Plan: * Patient remains on the ventilator and dialysis dependent * Clinically still appears to be volume overloaded. Shall dialyze him again today * Antibiotic therapy as per primary care team * no hydro seen on CT * strict i/os * avoid nephrotoxins * daily lytes and weight * Adjust meds for creatinine clearance less than 10 mL/m Subjective Date of service: 04/01/17 Principal diagnosis: afib, EtOH abuse, morbid obesity, respiratory failure status post extubatio Interval history: Patient remains on the ventilator. Currently on 100% FiO2. Unresponsive. Objective - Vital Signs Vital signs: Vital Signs - 12hr 04/01/17 04/01/17 04/01/17 00:05 00:06 00:30 Temperature Pulse Rate 98 H 98 H 95 H Pulse Rate [ Anterior Bilateral Throughout] Pulse Rate [ From Monitor] Respiratory 15 Rate Respiratory Rate [Anterior Bilateral Throughout] Respiratory Rate [Right Wrist] Blood Pressure 122/82 130/79 O2 Sat by Pulse 99 97 99 Oximetry 04/01/17 04/01/17 04/01/17 01:00 01:24 01:30 Temperature Pulse Rate 79 87 Pulse Rate [ Anterior Bilateral Throughout] Pulse Rate [ From Monitor] Respiratory 12 13 13 Rate Respiratory Rate [Anterior Bilateral Throughout] Respiratory Rate [Right Wrist] Blood Pressure 113/65 114/72 O2 Sat by Pulse 99 99 99 Oximetry 04/01/17 04/01/17 04/01/17 02:00 02:30 03:00 Temperature Pulse Rate 89 91 H 90 Pulse Rate [ Anterior Bilateral Throughout] Pulse Rate [ From Monitor] Respiratory 12 15 15 Rate Respiratory Rate [Anterior Bilateral Throughout] Respiratory Rate [Right Wrist] Blood Pressure 121/72 131/82 119/80 O2 Sat by Pulse 99 98 98 Oximetry 04/01/17 04/01/17 04/01/17 03:30 04:00 04:30 Temperature 98.8 F Pulse Rate 95 H 93 H 91 H Pulse Rate [ Anterior Bilateral Throughout] Pulse Rate [ From Monitor] Respiratory 17 16 15 Rate Respiratory Rate [Anterior Bilateral Throughout] Respiratory Rate [Right Wrist] Blood Pressure 150/88 136/85 146/82 O2 Sat by Pulse 96 98 99 Oximetry 06/04/01/17 04/01/17 04:35 05:00 05:22 Temperature Pulse Rate 96 H 95 H 107 H Pulse Rate [ Anterior Bilateral Throughout] Pulse Rate [ From Monitor] Respiratory 19 Rate Respiratory Rate [Anterior Bilateral Throughout] Respiratory Rate [Right Wrist] Blood Pressure 136/85 142/88 142/88 O2 Sat by Pulse 100 100 Oximetry 04/01/17 04/01/17 04/01/17 05:25 05:30 06:00 Temperature Pulse Rate 87 87 86 Pulse Rate [ Anterior Bilateral Throughout] Pulse Rate [ From Monitor] Respiratory 15 11 L Rate Respiratory Rate [Anterior Bilateral Throughout] Respiratory Rate [Right Wrist] Blood Pressure 150/75 127/80 O2 Sat by Pulse 95 97 97 Oximetry 04/01/17 04/01/17 04/01/17 06:30 07:00 07:30 Temperature Pulse Rate 83 95 H 88 Pulse Rate [ Anterior Bilateral Throughout] Pulse Rate [ From Monitor] Respiratory 14 15 13 Rate Respiratory Rate [Anterior Bilateral Throughout] Respiratory Rate [Right Wrist] Blood Pressure 138/83 129/82 143/77 O2 Sat by Pulse 96 99 98 Oximetry 04/01/17 04/01/17 04/01/17 08:00 08:30 09:00 Temperature 98.2 F Pulse Rate 93 H 87 84 Pulse Rate [ Anterior Bilateral Throughout] Pulse Rate [ 89 From Monitor] Respiratory 20 15 14 Rate Respiratory Rate [Anterior Bilateral Throughout] Respiratory Rate [Right Wrist] Blood Pressure 151/84 138/88 141/78 O2 Sat by Pulse 98 98 98 Oximetry 04/01/17 04/01/17 04/01/17 09:08 09:28 09:30 Temperature Pulse Rate 96 H 94 H Pulse Rate [ 96 H 98 H Anterior Bilateral Throughout] Pulse Rate [ From Monitor] Respiratory 24 Rate Respiratory 21 20 Rate [Anterior Bilateral Throughout] Respiratory Rate [Right Wrist] Blood Pressure 141/78 129/77 O2 Sat by Pulse 98 99 Oximetry 04/01/17 10:00 Temperature Pulse Rate 81 Pulse Rate [ Anterior Bilateral Throughout] Pulse Rate [ From Monitor] Respiratory 12 Rate Respiratory Rate [Anterior Bilateral Throughout] Respiratory 21 Rate [Right Wrist] Blood Pressure 126/75 O2 Sat by Pulse 99 Oximetry - General Appearance General appearance: well-developed, intubated EENT: PERRL, mucous membranes moist Neck: no JVD, no thyromegaly, no carotid bruit, supple, other (right IJ Vas- Cath in place) Respiratory: Present: Clear to Ascultation Cardiology: irregularly irregular Gastrointestinal: normal, normoactive bowel sounds Integumentary: no rash, other (1+ edema) - Lab 04/01/17 04:00 04/01/17 04:00 Most recent lab results Calcium 7.1 mg/dL (8.4-10.2) L 04/01/17 04:00 Phosphorus 4.60 mg/dL (2.5-4.5) H 03/06/17 04:50 Magnesium 1.60 mg/dL (1.7-2.3) L 03/19/17 06:55 Urine Creatinine 86.5 mg/dL (0.1-20.0) H 03/29/17 22:10 Urine Sodium 28 mEq/L 03/29/17 22:10
[2017-04-01] MEDS ORDERED: NACL 0.9% IR ONE (13:30)
[2017-04-01] MEDS: HEPARIN/ 0.45% NACL-25,000 UNIT/500 ML 25,000 UNIT/500 ML BAG IV SCH (13:58)
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
--- NOTE | 2017-04-01 22:56 | Procedure Note ---
Post-op diagnosis: same Anesthesia: MAC Surgeon: ADORE GARCIA Estimated blood loss: none Specimen disposition: to lab Condition: stable Disposition: no change
[2017-04-02] MEDS: NOVOLOG SUB-Q SCH ×5 (00:48→18:14)
[2017-04-02] MEDS: CARDIZEM PO SCH ×4 (00:58→18:00)
[2017-04-02 04:48] LABS: ISTAT Base Excess 0; ISTAT HCO3 25.4; ISTAT PCO2 42.8 (35-45); ISTAT PH 7.382 (7.35-7.45); ISTAT PO2 106 (80-105); ISTAT SO2 98; ISTAT TCO2 27
[2017-04-02 05:00] LABS: Hematocrit 29.2 % (35.5-45.6); Hemoglobin 9.7 gm/dl (11.8-15.2); Mean Corpuscular HGB Conc 33 % (32-34); Mean Corpuscular Hemoglobin 32 pg (28-32); Mean Corpuscular Volume 96 fl (84-94); Platelet Count 166 K/mm3 (140-440); Red Blood Count 3.05 M/mm3 (3.65-5.03); Red Cell Distribution Width 15.9 % (13.2-15.2); White Blood Count 13.5 K/mm3 (4.5-11.0)
[2017-04-02 05:11] LABS: BUN/Creatinine Ratio 8.57; Calcium 7.6 mg/dL (8.4-10.2)
[2017-04-02 05:12] LABS: Chloride 98.9 mmol/L (98-107)
[2017-04-02 05:13] LABS: Potassium 2.8 mmol/L (3.6-5.0)
[2017-04-02] MEDS ORDERED: POTASSIUM CHLORIDE FEEDTUBE ONE ×2 (05:30→10:31)
[2017-04-02] MEDS: HEPARIN/ 0.45% NACL-25,000 UNIT/500 ML 25,000 UNIT/500 ML BAG IV SCH (05:42)
[2017-04-02] MEDS: ATIVAN IV PRN (08:47)
[2017-04-02] MEDS: APRESOLINE PO SCH ×3 (08:48→21:00)
[2017-04-02] MEDS: LOPRESSOR PO SCH ×2 (08:49→14:29)
[2017-04-02] MEDS: DUONEB *Not for PRN Use IH SCH ×5 (09:01→23:37)
--- NOTE | 2017-04-02 09:49 | Progress Note ---
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 CK-MB (CK-2) Total Protein Albumin Urine Creatinine Urine Chloride 03/16/17 03/16/17 03/16/17 05:59 06:02 09:15 WBC 20.9 H RBC Hgb Hct 45.8 H MCV 99 H MCH 33 H MCHC RDW Plt Count Lymph % (Auto) [place] % (Auto) [place] # Seg Neutrophils % Seg Neuts % (Manual) 92.0 H Lymphocytes % (Manual) 4.0 L Monocytes % (Manual) Seg Neutrophils # Seg Neutrophils # Man 19.2 H Lymphocytes # (Manual) 0.8 L Monocytes # (Manual) Eosinophils # (Manual) PT INR APTT Heparin Anti-Xa Level POC ABG pH POC ABG pCO2 POC ABG pO2 Sodium Potassium Chloride 92.3 L Carbon Dioxide 34 H BUN 44 H Creatinine Glucose 150 H POC Glucose 127 H Calcium Phosphorus Magnesium Total Bilirubin AST Total Creatine Kinase CK-MB (CK-2) Total Protein Albumin Urine Creatinine Urine Chloride 03/16/17 03/16/17 03/17/17 11:59 18:08 07:06 WBC RBC Hgb Hct MCV MCH MCHC RDW Plt Count Lymph % (Auto) [place] % (Auto) [place] # Seg Neutrophils % Seg Neuts % (Manual) Lymphocytes % (Manual) Monocytes % (Manual) Seg Neutrophils # Seg Neutrophils # Man Lymphocytes # (Manual) Monocytes # (Manual) Eosinophils # (Manual) PT INR APTT Heparin Anti-Xa Level POC ABG pH POC ABG pCO2 POC ABG pO2 Sodium Potassium Chloride 93.3 L Carbon Dioxide 35 H BUN 31 H Creatinine Glucose 132 H POC Glucose 147 H 138 H Calcium Phosphorus Magnesium Total Bilirubin AST Total Creatine Kinase CK-MB (CK-2) Total Protein Albumin Urine Creatinine Urine Chloride 03/17/17 03/17/17 03/17/17 07:06 07:14 12:35 WBC 16.6 H RBC Hgb 15.6 H Hct 47.5 H MCV 99 H MCH 33 H MCHC RDW Plt Count Lymph % (Auto) 8.4 L [place] % (Auto) 8.1 H [place] # 1.3 H Seg Neutrophils % 81.8 H Seg Neuts % (Manual) Lymphocytes % (Manual) Monocytes % (Manual) Seg Neutrophils # 13.6 H Seg Neutrophils # Man Lymphocytes # (Manual) Monocytes # (Manual) Eosinophils # (Manual) PT INR APTT Heparin Anti-Xa Level POC ABG pH POC ABG pCO2 POC ABG pO2 Sodium Potassium Chloride Carbon Dioxide BUN Creatinine Glucose POC Glucose 119 H 132 H Calcium Phosphorus Magnesium Total Bilirubin AST Total Creatine Kinase CK-MB (CK-2) Total Protein Albumin Urine Creatinine Urine Chloride 03/18/17 03/18/17 03/18/17 05:05 06:15 06:15 WBC 15.8 H RBC Hgb 16.5 H Hct 49.3 H MCV 99 H MCH 33 H MCHC RDW Plt Count Lymph % (Auto) [place] % (Auto) [place] # Seg Neutrophils % Seg Neuts % (Manual) 88.0 H Lymphocytes % (Manual) 2.0 L Monocytes % (Manual) 8.0 H Seg Neutrophils # Seg Neutrophils # Man 13.9 H Lymphocytes # (Manual) 0.3 L Monocytes # (Manual) 1.3 H Eosinophils # (Manual) PT INR APTT Heparin Anti-Xa Level POC ABG pH POC ABG pCO2 72.9 H POC ABG pO2 168 H Sodium 147 H Potassium 3.5 L Chloride 95.3 L Carbon Dioxide 37 H BUN 29 H Creatinine Glucose 155 H POC Glucose Calcium Phosphorus Magnesium Total Bilirubin AST Total Creatine Kinase CK-MB (CK-2) Total Protein Albumin Urine Creatinine Urine Chloride 03/18/17 03/18/17 03/18/17 08:27 11:24 11:31 WBC RBC Hgb Hct MCV MCH MCHC RDW Plt Count Lymph % (Auto) [place] % (Auto) [place] # Seg Neutrophils % Seg Neuts % (Manual) Lymphocytes % (Manual) Monocytes % (Manual) Seg Neutrophils # Seg Neutrophils # Man Lymphocytes # (Manual) Monocytes # (Manual) Eosinophils # (Manual) PT INR APTT Heparin Anti-Xa Level POC ABG pH 7.530 H POC ABG pCO2 POC ABG pO2 60 L Sodium Potassium Chloride Carbon Dioxide BUN Creatinine Glucose POC Glucose 123 H 176 H Calcium Phosphorus Magnesium Total Bilirubin AST Total Creatine Kinase CK-MB (CK-2) Total Protein Albumin Urine Creatinine Urine Chloride 03/18/17 03/18/17 03/18/17 14:10 15:24 17:23 WBC RBC Hgb 15.4 H Hct 46.4 H MCV MCH MCHC RDW Plt Count Lymph % (Auto) [place] % (Auto) [place] # Seg Neutrophils % Seg Neuts % (Manual) Lymphocytes % (Manual) Monocytes % (Manual) Seg Neutrophils # Seg Neutrophils # Man Lymphocytes # (Manual) Monocytes # (Manual) Eosinophils # (Manual) PT INR APTT Heparin Anti-Xa Level POC ABG pH POC ABG pCO2 POC ABG pO2 Sodium Potassium Chloride 94.5 L Carbon Dioxide 33 H BUN 33 H Creatinine 1.6 H Glucose 241 H POC Glucose 244 H Calcium Phosphorus Magnesium Total Bilirubin AST Total Creatine Kinase CK-MB (CK-2) Total Protein Albumin 3.0 L Urine Creatinine Urine Chloride 03/18/17 03/18/17 03/19/17 17:23 21:33 03:54 WBC 25.4 H RBC Hgb Hct MCV 98 H MCH MCHC RDW Plt Count Lymph % (Auto) [place] % (Auto) [place] # Seg Neutrophils % Seg Neuts % (Manual) 83.0 H Lymphocytes % (Manual) 4.5 L Monocytes % (Manual) 8.0 H Seg Neutrophils # Seg Neutrophils # Man 21.1 H Lymphocytes # (Manual) 1.1 L Monocytes # (Manual) 2.0 H Eosinophils # (Manual) PT 17.1 H INR 1.40 H APTT Heparin Anti-Xa Level POC ABG pH POC ABG pCO2 POC ABG pO2 Sodium Potassium Chloride Carbon Dioxide BUN Creatinine Glucose POC Glucose 164 H Calcium Phosphorus Magnesium Total Bilirubin AST Total Creatine Kinase CK-MB (CK-2) Total Protein Albumin Urine Creatinine Urine Chloride 03/19/17 03/19/17 03/19/17 03:54 06:55 06:55 WBC RBC Hgb Hct MCV MCH MCHC RDW Plt Count Lymph % (Auto) [place] % (Auto) [place] # Seg Neutrophils % Seg Neuts % (Manual) Lymphocytes % (Manual) Monocytes % (Manual) Seg Neutrophils # Seg Neutrophils # Man Lymphocytes # (Manual) Monocytes # (Manual) Eosinophils # (Manual) PT INR APTT Heparin Anti-Xa Level 0.29 L POC ABG pH POC ABG pCO2 POC ABG pO2 Sodium 146 H Potassium 3.4 L Chloride 97.8 L Carbon Dioxide 33 H BUN 30 H Creatinine Glucose 134 H POC Glucose Calcium Phosphorus Magnesium 1.60 L Total Bilirubin AST Total Creatine Kinase CK-MB (CK-2) Total Protein Albumin Urine Creatinine Urine Chloride 03/19/17 03/19/17 03/19/17 08:01 12:56 14:54 WBC RBC Hgb Hct MCV MCH MCHC RDW Plt Count Lymph % (Auto) [place] % (Auto) [place] # Seg Neutrophils % Seg Neuts % (Manual) Lymphocytes % (Manual) Monocytes % (Manual) Seg Neutrophils # Seg Neutrophils # Man Lymphocytes # (Manual) Monocytes # (Manual) Eosinophils # (Manual) PT INR APTT Heparin Anti-Xa Level POC ABG pH POC ABG pCO2 57.8 H POC ABG pO2 71 L Sodium Potassium Chloride Carbon Dioxide BUN Creatinine Glucose POC Glucose 139 H 167 H Calcium Phosphorus Magnesium Total Bilirubin AST Total Creatine Kinase CK-MB (CK-2) Total Protein Albumin Urine Creatinine Urine Chloride 03/19/17 03/19/17 03/20/17 15:53 21:04 03:36 WBC RBC Hgb 15.3 H Hct 48.1 H MCV MCH MCHC RDW Plt Count Lymph % (Auto) [place] % (Auto) [place] # Seg Neutrophils % Seg Neuts % (Manual) Lymphocytes % (Manual) Monocytes % (Manual) Seg Neutrophils # Seg Neutrophils # Man Lymphocytes # (Manual) Monocytes # (Manual) Eosinophils # (Manual) PT INR APTT Heparin Anti-Xa Level POC ABG pH POC ABG pCO2 POC ABG pO2 Sodium Potassium Chloride Carbon Dioxide BUN Creatinine Glucose POC Glucose 172 H 159 H Calcium Phosphorus Magnesium Total Bilirubin AST Total Creatine Kinase CK-MB (CK-2) Total Protein Albumin Urine Creatinine Urine Chloride 03/20/17 03/20/17 03/20/17 07:45 12:02 14:07 WBC RBC Hgb Hct MCV MCH MCHC RDW Plt Count Lymph % (Auto) [place] % (Auto) [place] # Seg Neutrophils % Seg Neuts % (Manual) Lymphocytes % (Manual) Monocytes % (Manual) Seg Neutrophils # Seg Neutrophils # Man Lymphocytes # (Manual) Monocytes # (Manual) Eosinophils # (Manual) PT INR APTT Heparin Anti-Xa Level POC ABG pH 7.312 L POC ABG pCO2 68.3 H POC ABG pO2 47 L Sodium Potassium Chloride Carbon Dioxide BUN Creatinine Glucose POC Glucose 160 H 142 H Calcium Phosphorus Magnesium Total Bilirubin AST Total Creatine Kinase CK-MB (CK-2) Total Protein Albumin Urine Creatinine Urine Chloride 03/20/17 03/20/17 03/20/17 15:57 15:59 19:50 WBC RBC Hgb Hct MCV MCH MCHC RDW Plt Count Lymph % (Auto) [place] % (Auto) [place] # Seg Neutrophils % Seg Neuts % (Manual) Lymphocytes % (Manual) Monocytes % (Manual) Seg Neutrophils # Seg Neutrophils # Man Lymphocytes # (Manual) Monocytes # (Manual) Eosinophils # (Manual) PT INR APTT Heparin Anti-Xa Level POC ABG pH 7.214 L POC ABG pCO2 82.8 H 58.7 H POC ABG pO2 69 L Sodium Potassium Chloride Carbon Dioxide BUN Creatinine Glucose POC Glucose 149 H Calcium Phosphorus Magnesium Total Bilirubin AST Total Creatine Kinase CK-MB (CK-2) Total Protein Albumin Urine Creatinine Urine Chloride 03/20/17 03/20/17 03/21/17 21:19 23:34 04:18 WBC RBC Hgb Hct MCV MCH MCHC RDW Plt Count Lymph % (Auto) [place] % (Auto) [place] # Seg Neutrophils % Seg Neuts % (Manual) Lymphocytes % (Manual) Monocytes % (Manual) Seg Neutrophils # Seg Neutrophils # Man Lymphocytes # (Manual) Monocytes # (Manual) Eosinophils # (Manual) PT INR APTT Heparin Anti-Xa Level 0.20 L POC ABG pH POC ABG pCO2 48.6 H POC ABG pO2 79 L Sodium Potassium Chloride Carbon Dioxide BUN Creatinine Glucose POC Glucose 206 H Calcium Phosphorus Magnesium Total Bilirubin AST Total Creatine Kinase CK-MB (CK-2) Total Protein Albumin Urine Creatinine Urine Chloride 03/21/17 03/21/17 03/21/17 04:21 04:21 05:23 WBC RBC Hgb Hct MCV MCH MCHC RDW Plt Count Lymph % (Auto) [place] % (Auto) [place] # Seg Neutrophils % Seg Neuts % (Manual) Lymphocytes % (Manual) Monocytes % (Manual) Seg Neutrophils # Seg Neutrophils # Man Lymphocytes # (Manual) Monocytes # (Manual) Eosinophils # (Manual) PT INR APTT Heparin Anti-Xa Level 0.24 L POC ABG pH POC ABG pCO2 POC ABG pO2 Sodium 147 H Potassium Chloride Carbon Dioxide BUN 42 H Creatinine 2.6 H D Glucose 209 H POC Glucose 181 H Calcium 7.9 L Phosphorus Magnesium Total Bilirubin AST Total Creatine Kinase CK-MB (CK-2) Total Protein Albumin Urine Creatinine Urine Chloride 03/21/17 03/21/17 03/21/17 13:16 13:16 14:43 WBC 27.8 H RBC Hgb Hct MCV 101 H D MCH MCHC RDW Plt Count Lymph % (Auto) [place] % (Auto) [place] # Seg Neutrophils % Seg Neuts % (Manual) 76.0 H Lymphocytes % (Manual) 7.0 L Monocytes % (Manual) Seg Neutrophils # Seg Neutrophils # Man 21.1 H Lymphocytes # (Manual) Monocytes # (Manual) 1.1 H Eosinophils # (Manual) PT INR APTT Heparin Anti-Xa Level 0.25 L POC ABG pH 7.474 H POC ABG pCO2 POC ABG pO2 59 L Sodium Potassium Chloride Carbon Dioxide BUN Creatinine Glucose POC Glucose Calcium Phosphorus Magnesium Total Bilirubin AST Total Creatine Kinase CK-MB (CK-2) Total Protein Albumin Urine Creatinine Urine Chloride 03/21/17 03/21/17 03/21/17 17:00 18:20 23:40 WBC RBC Hgb Hct MCV MCH MCHC RDW Plt Count Lymph % (Auto) [place] % (Auto) [place] # Seg Neutrophils % Seg Neuts % (Manual) Lymphocytes % (Manual) Monocytes % (Manual) Seg Neutrophils # Seg Neutrophils # Man Lymphocytes # (Manual) Monocytes # (Manual) Eosinophils # (Manual) PT INR APTT Heparin Anti-Xa Level POC ABG pH POC ABG pCO2 POC ABG pO2 Sodium Potassium Chloride Carbon Dioxide BUN 48 H Creatinine 3.2 H Glucose 135 H POC Glucose 152 H 136 H Calcium 6.8 L Phosphorus Magnesium Total Bilirubin AST Total Creatine Kinase CK-MB (CK-2) Total Protein 5.3 L D Albumin 1.7 L Urine Creatinine Urine Chloride 03/22/17 03/22/17 03/22/17 04:30 04:30 04:30 WBC 29.3 H RBC Hgb Hct MCV 100 H MCH MCHC 31 L RDW 15.3 H Plt Count Lymph % (Auto) [place] % (Auto) [place] # Seg Neutrophils % Seg Neuts % (Manual) Lymphocytes % (Manual) Monocytes % (Manual) Seg Neutrophils # Seg Neutrophils # Man Lymphocytes # (Manual) Monocytes # (Manual) Eosinophils # (Manual) PT INR APTT Heparin Anti-Xa Level 0.29 L POC ABG pH POC ABG pCO2 POC ABG pO2 Sodium Potassium Chloride Carbon Dioxide BUN 60 H Creatinine 4.3 H Glucose 118 H POC Glucose Calcium 8.2 L D Phosphorus Magnesium Total Bilirubin AST Total Creatine Kinase CK-MB (CK-2) Total Protein Albumin 1.8 L Urine Creatinine Urine Chloride 03/22/17 03/22/17 03/22/17 05:08 07:00 07:00 WBC 24.8 H RBC Hgb Hct MCV 100 H MCH MCHC RDW Plt Count Lymph % (Auto) [place] % (Auto) [place] # Seg Neutrophils % Seg Neuts % (Manual) 94.0 H Lymphocytes % (Manual) 0 L Monocytes % (Manual) Seg Neutrophils # Seg Neutrophils # Man 23.3 H Lymphocytes # (Manual) 0.0 L Monocytes # (Manual) Eosinophils # (Manual) 0.7 H PT INR APTT Heparin Anti-Xa Level POC ABG pH POC ABG pCO2 POC ABG pO2 Sodium 147 H Potassium Chloride 109.2 H Carbon Dioxide BUN 58 H Creatinine 4.1 H Glucose 117 H POC Glucose 124 H Calcium 7.4 L Phosphorus Magnesium Total Bilirubin AST Total Creatine Kinase CK-MB (CK-2) Total Protein Albumin Urine Creatinine Urine Chloride 03/22/17 03/22/17 03/22/17 08:40 11:37 14:30 WBC RBC Hgb Hct MCV MCH MCHC RDW Plt Count Lymph % (Auto) [place] % (Auto) [place] # Seg Neutrophils % Seg Neuts % (Manual) Lymphocytes % (Manual) Monocytes % (Manual) Seg Neutrophils # Seg Neutrophils # Man Lymphocytes # (Manual) Monocytes # (Manual) Eosinophils # (Manual) PT 16.2 H INR 1.31 H APTT 68.9 H* Heparin Anti-Xa Level < 0.10 L POC ABG pH POC ABG pCO2 POC ABG pO2 Sodium Potassium Chloride Carbon Dioxide BUN Creatinine Glucose POC Glucose 159 H Calcium Phosphorus Magnesium Total Bilirubin AST Total Creatine Kinase CK-MB (CK-2) Total Protein Albumin Urine Creatinine Urine Chloride 03/22/17 03/22/17 03/22/17 17:53 21:44 23:54 WBC RBC Hgb 11.6 L Hct 33.1 L MCV MCH MCHC RDW Plt Count Lymph % (Auto) [place] % (Auto) [place] # Seg Neutrophils % Seg Neuts % (Manual) Lymphocytes % (Manual) Monocytes % (Manual) Seg Neutrophils # Seg Neutrophils # Man Lymphocytes # (Manual) Monocytes # (Manual) Eosinophils # (Manual) PT INR APTT Heparin Anti-Xa Level POC ABG pH POC ABG pCO2 POC ABG pO2 Sodium Potassium Chloride Carbon Dioxide BUN Creatinine Glucose POC Glucose 142 H 131 H Calcium Phosphorus Magnesium Total Bilirubin AST Total Creatine Kinase CK-MB (CK-2) Total Protein Albumin Urine Creatinine Urine Chloride 03/23/17 03/23/17 03/23/17 04:08 05:29 06:34 WBC RBC Hgb Hct MCV MCH MCHC RDW Plt Count Lymph % (Auto) [place] % (Auto) [place] # Seg Neutrophils % Seg Neuts % (Manual) Lymphocytes % (Manual) Monocytes % (Manual) Seg Neutrophils # Seg Neutrophils # Man Lymphocytes # (Manual) Monocytes # (Manual) Eosinophils # (Manual) PT INR APTT Heparin Anti-Xa Level POC ABG pH POC ABG pCO2 POC ABG pO2 75 L Sodium Potassium Chloride Carbon Dioxide 21 L BUN 85 H Creatinine 6.0 H Glucose 134 H POC Glucose 134 H Calcium 8.1 L Phosphorus Magnesium Total Bilirubin AST Total Creatine Kinase CK-MB (CK-2) Total Protein Albumin Urine Creatinine Urine Chloride 03/23/17 03/23/17 03/23/17 12:09 17:20 17:52 WBC RBC Hgb Hct MCV MCH MCHC RDW Plt Count Lymph % (Auto) [place] % (Auto) [place] # Seg Neutrophils % Seg Neuts % (Manual) Lymphocytes % (Manual) Monocytes % (Manual) Seg Neutrophils # Seg Neutrophils # Man Lymphocytes # (Manual) Monocytes # (Manual) Eosinophils # (Manual) PT INR APTT Heparin Anti-Xa Level 1.39 H POC ABG pH POC ABG pCO2 POC ABG pO2 Sodium Potassium Chloride Carbon Dioxide BUN Creatinine Glucose POC Glucose 133 H 151 H Calcium Phosphorus Magnesium Total Bilirubin AST Total Creatine Kinase CK-MB (CK-2) Total Protein Albumin Urine Creatinine Urine Chloride 03/23/17 03/24/17 03/24/17 23:59 03:15 03:15 WBC 23.9 H RBC 3.58 L Hgb 11.6 L Hct 34.6 L MCV 97 H D MCH MCHC RDW Plt Count 122 L Lymph % (Auto) [place] % (Auto) [place] # Seg Neutrophils % Seg Neuts % (Manual) Lymphocytes % (Manual) Monocytes % (Manual) Seg Neutrophils # Seg Neutrophils # Man Lymphocytes # (Manual) Monocytes # (Manual) Eosinophils # (Manual) PT INR APTT Heparin Anti-Xa Level POC ABG pH POC ABG pCO2 POC ABG pO2 Sodium 135 L Potassium Chloride 95.0 L Carbon Dioxide BUN 71 H Creatinine 5.2 H Glucose 123 H POC Glucose 124 H Calcium 8.0 L Phosphorus Magnesium Total Bilirubin AST Total Creatine Kinase CK-MB (CK-2) Total Protein Albumin Urine Creatinine Urine Chloride 03/24/17 03/24/17 03/24/17 03:15 04:53 11:58 WBC RBC Hgb Hct MCV MCH MCHC RDW Plt Count Lymph % (Auto) [place] % (Auto) [place] # Seg Neutrophils % Seg Neuts % (Manual) Lymphocytes % (Manual) Monocytes % (Manual) Seg Neutrophils # Seg Neutrophils # Man Lymphocytes # (Manual) Monocytes # (Manual) Eosinophils # (Manual) PT INR APTT Heparin Anti-Xa Level 0.20 L POC ABG pH POC ABG pCO2 POC ABG pO2 72 L Sodium Potassium Chloride Carbon Dioxide BUN Creatinine Glucose POC Glucose 121 H Calcium Phosphorus Magnesium Total Bilirubin AST Total Creatine Kinase CK-MB (CK-2) Total Protein Albumin Urine Creatinine Urine Chloride 03/24/17 03/25/17 03/25/17 18:16 00:24 05:30 WBC RBC Hgb Hct MCV MCH MCHC RDW Plt Count Lymph % (Auto) [place] % (Auto) [place] # Seg Neutrophils % Seg Neuts % (Manual) Lymphocytes % (Manual) Monocytes % (Manual) Seg Neutrophils # Seg Neutrophils # Man Lymphocytes # (Manual) Monocytes # (Manual) Eosinophils # (Manual) PT INR APTT Heparin Anti-Xa Level POC ABG pH POC ABG pCO2 34.2 L POC ABG pO2 Sodium Potassium Chloride Carbon Dioxide BUN Creatinine Glucose POC Glucose 117 H 107 H Calcium Phosphorus Magnesium Total Bilirubin AST Total Creatine Kinase CK-MB (CK-2) Total Protein Albumin Urine Creatinine Urine Chloride 03/25/17 03/25/17 03/25/17 05:35 11:45 16:48 WBC RBC Hgb Hct MCV MCH MCHC RDW Plt Count Lymph % (Auto) [place] % (Auto) [place] # Seg Neutrophils % Seg Neuts % (Manual) Lymphocytes % (Manual) Monocytes % (Manual) Seg Neutrophils # Seg Neutrophils # Man Lymphocytes # (Manual) Monocytes # (Manual) Eosinophils # (Manual) PT INR APTT Heparin Anti-Xa Level POC ABG pH POC ABG pCO2 POC ABG pO2 Sodium 132 L Potassium Chloride 92.0 L Carbon Dioxide 20 L BUN 102 H Creatinine 7.2 H Glucose 101 H POC Glucose 127 H 114 H Calcium 8.3 L Phosphorus Magnesium Total Bilirubin AST Total Creatine Kinase CK-MB (CK-2) Total Protein Albumin Urine Creatinine Urine Chloride 03/26/17 03/26/17 03/26/17 00:17 04:15 04:15 WBC 21.1 H RBC 3.52 L Hgb 11.0 L Hct 33.2 L MCV 95 H MCH MCHC RDW Plt Count 121 L Lymph % (Auto) [place] % (Auto) [place] # Seg Neutrophils % Seg Neuts % (Manual) Lymphocytes % (Manual) Monocytes % (Manual) Seg Neutrophils # Seg Neutrophils # Man Lymphocytes # (Manual) Monocytes # (Manual) Eosinophils # (Manual) PT INR APTT Heparin Anti-Xa Level POC ABG pH POC ABG pCO2 POC ABG pO2 Sodium 133 L Potassium Chloride 92.9 L Carbon Dioxide 21 L BUN 77 H Creatinine 5.4 H Glucose 115 H POC Glucose 114 H Calcium 8.1 L Phosphorus Magnesium Total Bilirubin AST Total Creatine Kinase CK-MB (CK-2) Total Protein Albumin Urine Creatinine Urine Chloride 03/26/17 03/26/17 03/26/17 04:49 11:36 23:29 WBC RBC Hgb Hct MCV MCH MCHC RDW Plt Count Lymph % (Auto) [place] % (Auto) [place] # Seg Neutrophils % Seg Neuts % (Manual) Lymphocytes % (Manual) Monocytes % (Manual) Seg Neutrophils # Seg Neutrophils # Man Lymphocytes # (Manual) Monocytes # (Manual) Eosinophils # (Manual) PT INR APTT Heparin Anti-Xa Level POC ABG pH POC ABG pCO2 POC ABG pO2 Sodium Potassium Chloride Carbon Dioxide BUN Creatinine Glucose POC Glucose 127 H 123 H 125 H Calcium Phosphorus Magnesium Total Bilirubin AST Total Creatine Kinase CK-MB (CK-2) Total Protein Albumin Urine Creatinine Urine Chloride 03/27/17 03/27/17 03/27/17 04:00 04:46 05:06 WBC RBC Hgb Hct MCV MCH MCHC RDW Plt Count Lymph % (Auto) [place] % (Auto) [place] # Seg Neutrophils % Seg Neuts % (Manual) Lymphocytes % (Manual) Monocytes % (Manual) Seg Neutrophils # Seg Neutrophils # Man Lymphocytes # (Manual) Monocytes # (Manual) Eosinophils # (Manual) PT INR APTT Heparin Anti-Xa Level POC ABG pH POC ABG pCO2 31.4 L POC ABG pO2 Sodium 132 L Potassium Chloride 90.5 L Carbon Dioxide 19 L BUN 95 H Creatinine 6.7 H Glucose 110 H POC Glucose 116 H Calcium Phosphorus Magnesium Total Bilirubin AST Total Creatine Kinase CK-MB (CK-2) Total Protein Albumin Urine Creatinine Urine Chloride 03/27/17 03/27/17 03/27/17 08:11 08:11 11:34 WBC 24.7 H RBC Hgb 11.5 L Hct 35.0 L MCV 95 H MCH MCHC RDW Plt Count Lymph % (Auto) [place] % (Auto) [place] # Seg Neutrophils % Seg Neuts % (Manual) Lymphocytes % (Manual) Monocytes % (Manual) Seg Neutrophils # Seg Neutrophils # Man Lymphocytes # (Manual) Monocytes # (Manual) Eosinophils # (Manual) PT INR APTT Heparin Anti-Xa Level < 0.10 L POC ABG pH POC ABG pCO2 POC ABG pO2 Sodium Potassium Chloride Carbon Dioxide BUN Creatinine Glucose POC Glucose 118 H Calcium Phosphorus Magnesium Total Bilirubin AST Total Creatine Kinase CK-MB (CK-2) Total Protein Albumin Urine Creatinine Urine Chloride 03/27/17 03/27/17 03/28/17 16:44 23:59 05:07 WBC RBC Hgb Hct MCV MCH MCHC RDW Plt Count Lymph % (Auto) [place] % (Auto) [place] # Seg Neutrophils % Seg Neuts % (Manual) Lymphocytes % (Manual) Monocytes % (Manual) Seg Neutrophils # Seg Neutrophils # Man Lymphocytes # (Manual) Monocytes # (Manual) Eosinophils # (Manual) PT INR APTT Heparin Anti-Xa Level POC ABG pH POC ABG pCO2 POC ABG pO2 Sodium Potassium Chloride Carbon Dioxide BUN Creatinine Glucose POC Glucose 110 H 109 H 110 H Calcium Phosphorus Magnesium Total Bilirubin AST Total Creatine Kinase CK-MB (CK-2) Total Protein Albumin Urine Creatinine Urine Chloride 03/28/17 03/28/17 03/28/17 07:00 11:24 11:50 WBC 26.6 H RBC 3.42 L Hgb 10.8 L Hct 33.2 L MCV 97 H MCH MCHC RDW 15.4 H Plt Count Lymph % (Auto) [place] % (Auto) [place] # Seg Neutrophils % Seg Neuts % (Manual) Lymphocytes % (Manual) Monocytes % (Manual) Seg Neutrophils # Seg Neutrophils # Man Lymphocytes # (Manual) Monocytes # (Manual) Eosinophils # (Manual) PT INR APTT Heparin Anti-Xa Level POC ABG pH POC ABG pCO2 POC ABG pO2 Sodium 131 L Potassium 5.3 H Chloride 86.6 L Carbon Dioxide 17 L BUN 112 H Creatinine 7.9 H Glucose 120 H POC Glucose 141 H Calcium Phosphorus Magnesium Total Bilirubin AST Total Creatine Kinase CK-MB (CK-2) Total Protein Albumin Urine Creatinine Urine Chloride 03/28/17 03/28/17 03/28/17 17:25 18:04 23:07 WBC RBC Hgb Hct MCV MCH MCHC RDW Plt Count Lymph % (Auto) [place] % (Auto) [place] # Seg Neutrophils % Seg Neuts % (Manual) Lymphocytes % (Manual) Monocytes % (Manual) Seg Neutrophils # Seg Neutrophils # Man Lymphocytes # (Manual) Monocytes # (Manual) Eosinophils # (Manual) PT INR APTT Heparin Anti-Xa Level 0.23 L POC ABG pH POC ABG pCO2 POC ABG pO2 Sodium Potassium Chloride Carbon Dioxide BUN Creatinine Glucose POC Glucose 128 H 115 H Calcium Phosphorus Magnesium Total Bilirubin AST Total Creatine Kinase CK-MB (CK-2) Total Protein Albumin Urine Creatinine Urine Chloride 03/29/17 03/29/17 03/29/17 03:23 05:16 08:20 WBC RBC Hgb Hct MCV MCH MCHC RDW Plt Count Lymph % (Auto) [place] % (Auto) [place] # Seg Neutrophils % Seg Neuts % (Manual) Lymphocytes % (Manual) Monocytes % (Manual) Seg Neutrophils # Seg Neutrophils # Man Lymphocytes # (Manual) Monocytes # (Manual) Eosinophils # (Manual) PT INR APTT Heparin Anti-Xa Level 0.10 L POC ABG pH POC ABG pCO2 POC ABG pO2 Sodium 126 L Potassium 5.6 H Chloride 87.5 L Carbon Dioxide 21 L BUN 84 H Creatinine 6.0 H Glucose 144 H POC Glucose 146 H Calcium 7.9 L Phosphorus Magnesium Total Bilirubin AST Total Creatine Kinase CK-MB (CK-2) Total Protein Albumin Urine Creatinine Urine Chloride 03/29/17 03/29/17 03/29/17 08:20 09:13 10:00 WBC 27.6 H RBC 3.27 L Hgb 10.2 L Hct 31.8 L MCV 97 H MCH MCHC RDW 15.3 H Plt Count Lymph % (Auto) [place] % (Auto) [place] # Seg Neutrophils % Seg Neuts % (Manual) Lymphocytes % (Manual) Monocytes % (Manual) Seg Neutrophils # Seg Neutrophils # Man Lymphocytes # (Manual) Monocytes # (Manual) Eosinophils # (Manual) PT INR APTT Heparin Anti-Xa Level 0.84 H POC ABG pH 7.204 L POC ABG pCO2 52.8 H POC ABG pO2 57 L Sodium Potassium Chloride Carbon Dioxide BUN Creatinine Glucose POC Glucose Calcium Phosphorus Magnesium Total Bilirubin AST Total Creatine Kinase CK-MB (CK-2) Total Protein Albumin Urine Creatinine Urine Chloride 03/29/17 03/29/17 03/29/17 10:24 12:27 16:44 WBC RBC Hgb Hct MCV MCH MCHC RDW Plt Count Lymph % (Auto) Woodruff % (Auto) Woodruff # Seg Neutrophils % Seg Neuts % (Manual) Lymphocytes % (Manual) Monocytes % (Manual) Seg Neutrophils # Seg Neutrophils # Man Lymphocytes # (Manual) Monocytes # (Manual) Eosinophils # (Manual) PT INR APTT Heparin Anti-Xa Level < 0.10 L POC ABG pH 7.305 L POC ABG pCO2 POC ABG pO2 73 L Sodium Potassium Chloride Carbon Dioxide BUN Creatinine Glucose POC Glucose 152 H Calcium Phosphorus Magnesium Total Bilirubin AST Total Creatine Kinase CK-MB (CK-2) Total Protein Albumin Urine Creatinine Urine Chloride 03/29/17 03/29/17 03/29/17 17:48 18:56 22:10 WBC RBC Hgb Hct MCV MCH MCHC RDW Plt Count Lymph % (Auto) Woodruff % (Auto) Woodruff # Seg Neutrophils % Seg Neuts % (Manual) Lymphocytes % (Manual) Monocytes % (Manual) Seg Neutrophils # Seg Neutrophils # Man Lymphocytes # (Manual) Monocytes # (Manual) Eosinophils # (Manual) PT INR APTT Heparin Anti-Xa Level POC ABG pH POC ABG pCO2 POC ABG pO2 Sodium 125 L Potassium 5.8 H Chloride 85.4 L Carbon Dioxide 16 L BUN 96 H Creatinine 6.9 H Glucose 135 H POC Glucose 130 H Calcium Phosphorus Magnesium Total Bilirubin AST Total Creatine Kinase CK-MB (CK-2) Total Protein Albumin Urine Creatinine 86.5 H Urine Chloride 15.2 L 03/30/17 03/30/17 03/30/17 00:11 01:00 05:42 WBC RBC Hgb Hct MCV MCH MCHC RDW Plt Count Lymph % (Auto) [place] % (Auto) [place] # Seg Neutrophils % Seg Neuts % (Manual) Lymphocytes % (Manual) Monocytes % (Manual) Seg Neutrophils # Seg Neutrophils # Man Lymphocytes # (Manual) Monocytes # (Manual) Eosinophils # (Manual) PT INR APTT Heparin Anti-Xa Level 0.80 H POC ABG pH POC ABG pCO2 POC ABG pO2 Sodium Potassium Chloride Carbon Dioxide BUN Creatinine Glucose POC Glucose 146 H 162 H Calcium Phosphorus Magnesium Total Bilirubin AST Total Creatine Kinase CK-MB (CK-2) Total Protein Albumin Urine Creatinine Urine Chloride 03/30/17 03/30/17 03/30/17 07:32 07:38 08:20 WBC 27.7 H RBC 3.14 L Hgb 9.7 L Hct 30.1 L MCV 96 H MCH MCHC RDW 16.2 H Plt Count Lymph % (Auto) [place] % (Auto) [place] # Seg Neutrophils % Seg Neuts % (Manual) 93.0 H Lymphocytes % (Manual) 1.0 L Monocytes % (Manual) Seg Neutrophils # Seg Neutrophils # Man 25.8 H Lymphocytes # (Manual) 0.3 L Monocytes # (Manual) 1.0 H Eosinophils # (Manual) PT INR APTT Heparin Anti-Xa Level 0.99 H POC ABG pH POC ABG pCO2 POC ABG pO2 Sodium 127 L Potassium 5.9 H Chloride 88.5 L Carbon Dioxide 16 L BUN 101 H Creatinine 7.5 H Glucose 147 H POC Glucose Calcium 8.0 L Phosphorus Magnesium Total Bilirubin AST Total Creatine Kinase CK-MB (CK-2) Total Protein Albumin Urine Creatinine Urine Chloride 03/30/17 03/30/17 03/30/17 12:19 16:07 16:58 WBC RBC Hgb Hct MCV MCH MCHC RDW Plt Count Lymph % (Auto) [place] % (Auto) [place] # Seg Neutrophils % Seg Neuts % (Manual) Lymphocytes % (Manual) Monocytes % (Manual) Seg Neutrophils # Seg Neutrophils # Man Lymphocytes # (Manual) Monocytes # (Manual) Eosinophils # (Manual) PT INR APTT Heparin Anti-Xa Level 1.07 H POC ABG pH POC ABG pCO2 POC ABG pO2 62 L Sodium Potassium Chloride Carbon Dioxide BUN Creatinine Glucose POC Glucose 179 H Calcium Phosphorus Magnesium Total Bilirubin AST Total Creatine Kinase CK-MB (CK-2) Total Protein Albumin Urine Creatinine Urine Chloride 03/30/17 03/30/17 03/31/17 17:48 Unknown 00:25 WBC RBC Hgb Hct MCV MCH MCHC RDW Plt Count Lymph % (Auto) [place] % (Auto) [place] # Seg Neutrophils % Seg Neuts % (Manual) Lymphocytes % (Manual) Monocytes % (Manual) Seg Neutrophils # Seg Neutrophils # Man Lymphocytes # (Manual) Monocytes # (Manual) Eosinophils # (Manual) PT INR APTT Heparin Anti-Xa Level POC ABG pH POC ABG pCO2 POC ABG pO2 Sodium 124 L Potassium 5.2 H Chloride 86.6 L Carbon Dioxide 16 L BUN 93 H Creatinine 6.3 H Glucose 153 H POC Glucose 162 H 139 H Calcium 7.4 L D Phosphorus Magnesium Total Bilirubin AST Total Creatine Kinase CK-MB (CK-2) Total Protein Albumin Urine Creatinine Urine Chloride 03/31/17 03/31/17 03/31/17 04:18 05:21 11:39 WBC RBC Hgb Hct MCV MCH MCHC RDW Plt Count Lymph % (Auto) [place] % (Auto) [place] # Seg Neutrophils % Seg Neuts % (Manual) Lymphocytes % (Manual) Monocytes % (Manual) Seg Neutrophils # Seg Neutrophils # Man Lymphocytes # (Manual) Monocytes # (Manual) Eosinophils # (Manual) PT INR APTT Heparin Anti-Xa Level POC ABG pH 7.209 L POC ABG pCO2 55.7 H POC ABG pO2 106 H Sodium Potassium Chloride Carbon Dioxide BUN Creatinine Glucose POC Glucose 133 H 133 H Calcium Phosphorus Magnesium Total Bilirubin AST Total Creatine Kinase CK-MB (CK-2) Total Protein Albumin Urine Creatinine Urine Chloride 03/31/17 03/31/17 03/31/17 16:53 Unknown Unknown WBC 25.9 H RBC 3.04 L Hgb 9.6 L Hct 29.9 L MCV 98 H MCH MCHC RDW 16.1 H Plt Count Lymph % (Auto) [place] % (Auto) [place] # Seg Neutrophils % Seg Neuts % (Manual) Lymphocytes % (Manual) Monocytes % (Manual) Seg Neutrophils # Seg Neutrophils # Man Lymphocytes # (Manual) Monocytes # (Manual) Eosinophils # (Manual) PT INR APTT Heparin Anti-Xa Level POC ABG pH POC ABG pCO2 POC ABG pO2 Sodium 133 L Potassium Chloride 91.6 L Carbon Dioxide 20 L BUN 67 H Creatinine 5.3 H Glucose 129 H POC Glucose 146 H Calcium 7.4 L Phosphorus Magnesium Total Bilirubin AST Total Creatine Kinase CK-MB (CK-2) Total Protein Albumin Urine Creatinine Urine Chloride 03/31/17 04/01/17 04/01/17 23:59 04:00 04:00 WBC 16.1 H RBC 3.02 L Hgb 9.6 L Hct 29.0 L MCV 96 H MCH MCHC RDW 16.0 H Plt Count Lymph % (Auto) [place] % (Auto) [place] # Seg Neutrophils % Seg Neuts % (Manual) Lymphocytes % (Manual) Monocytes % (Manual) Seg Neutrophils # Seg Neutrophils # Man Lymphocytes # (Manual) Monocytes # (Manual) Eosinophils # (Manual) PT INR APTT Heparin Anti-Xa Level POC ABG pH POC ABG pCO2 POC ABG pO2 Sodium Potassium 3.1 L D Chloride 96.0 L Carbon Dioxide BUN 45 H Creatinine 4.1 H Glucose POC Glucose 121 H Calcium 7.1 L Phosphorus Magnesium Total Bilirubin AST Total Creatine Kinase CK-MB (CK-2) Total Protein Albumin Urine Creatinine Urine Chloride 04/01/17 04/02/17 04/02/17 05:20 00:15 04:00 WBC 13.5 H RBC 3.05 L Hgb 9.7 L Hct 29.2 L MCV 96 H MCH MCHC RDW 15.9 H Plt Count Lymph % (Auto) [place] % (Auto) [place] # Seg Neutrophils % Seg Neuts % (Manual) Lymphocytes % (Manual) Monocytes % (Manual) Seg Neutrophils # Seg Neutrophils # Man Lymphocytes # (Manual) Monocytes # (Manual) Eosinophils # (Manual) PT INR APTT Heparin Anti-Xa Level POC ABG pH POC ABG pCO2 POC ABG pO2 132 H Sodium Potassium Chloride Carbon Dioxide BUN Creatinine Glucose POC Glucose 110 H Calcium Phosphorus Magnesium Total Bilirubin AST Total Creatine Kinase CK-MB (CK-2) Total Protein Albumin Urine Creatinine Urine Chloride 04/02/17 04/02/17 04/02/17 04:22 04:35 05:25 WBC RBC Hgb Hct MCV MCH MCHC RDW Plt Count Lymph % (Auto) [place] % (Auto) [place] # Seg Neutrophils % Seg Neuts % (Manual) Lymphocytes % (Manual) Monocytes % (Manual) Seg Neutrophils # Seg Neutrophils # Man Lymphocytes # (Manual) Monocytes # (Manual) Eosinophils # (Manual) PT INR APTT Heparin Anti-Xa Level POC ABG pH POC ABG pCO2 POC ABG pO2 106 H Sodium Potassium 2.8 L* Chloride Carbon Dioxide BUN 30 H Creatinine 3.5 H Glucose 113 H POC Glucose 110 H Calcium 7.6 L Phosphorus Magnesium Total Bilirubin AST Total Creatine Kinase CK-MB (CK-2) Total Protein Albumin Urine Creatinine Urine Chloride 04/02/17 06:49 WBC RBC Hgb Hct MCV MCH MCHC RDW Plt Count Lymph % (Auto) [place] % (Auto) [place] # Seg Neutrophils % Seg Neuts % (Manual) Lymphocytes % (Manual) Monocytes % (Manual) Seg Neutrophils # Seg Neutrophils # Man Lymphocytes # (Manual) Monocytes # (Manual) Eosinophils # (Manual) PT INR APTT Heparin Anti-Xa Level 0.23 L POC ABG pH POC ABG pCO2 POC ABG pO2 Sodium Potassium Chloride Carbon Dioxide BUN Creatinine Glucose POC Glucose Calcium Phosphorus Magnesium Total Bilirubin AST Total Creatine Kinase CK-MB (CK-2) Total Protein Albumin Urine Creatinine Urine Chloride
[2017-04-02] MEDS ORDERED: KCL 10MEQ/100ML 10 MEQ/100 ML BAG IV SCH (11:00)
[2017-04-02] MEDS: DIPRIVAN 10 MG/ML 1,000 MG/100 ML BOTTLE IV SCH ×4 (11:39→21:30)
[2017-04-02] MEDS: VITAMIN B-1 PO SCH (11:40)
[2017-04-02] MEDS: PROTONIX PO SCH (11:40)
[2017-04-02] MEDS: FOLVITE PO SCH (11:40)
[2017-04-02] MEDS ORDERED: NACL 0.9% 100 ML IV PRN (13:20)
--- NOTE | 2017-04-02 13:20 | Progress Note ---
Assessment and Plan Impression: * KATHRIN--oliguric * vanco toxicity vs ATN * HTN * CM ef 40% * Afib with RVR * etoh withdrawal * asp PNA * UTI * Nephrolithiasis Plan: * Patient remains on the ventilator and dialysis dependent * Clinically still appears to be volume overloaded. Shall dialyze him again today * Antibiotic therapy as per primary care team * no hydro seen on CT * strict i/os * avoid nephrotoxins * daily lytes and weight * Adjust meds for creatinine clearance less than 10 mL/m Subjective Date of service: 04/02/17 Principal diagnosis: afib, EtOH abuse, morbid obesity, respiratory failure status post extubatio Interval history: Patient remains on the ventilator. Currently on 40% FiO2. He opens his eyes. Currently on a heparin drip. Objective - Vital Signs Vital signs: Vital Signs - 12hr 04/02/17 04/02/17 04/02/17 01:30 02:00 02:30 Temperature Pulse Rate 90 95 H 105 H Pulse Rate [ Anterior Bilateral Throughout] Respiratory 10 L 17 17 Rate Respiratory Rate [Anterior Bilateral Throughout] Blood Pressure 142/92 145/73 123/78 O2 Sat by Pulse 97 97 99 Oximetry 04/02/17 04/02/17 04/02/17 03:00 03:30 03:47 Temperature Pulse Rate 102 H 114 H 90 Pulse Rate [ Anterior Bilateral Throughout] Respiratory 14 11 L Rate Respiratory Rate [Anterior Bilateral Throughout] Blood Pressure 126/79 135/81 139/84 O2 Sat by Pulse 99 98 98 Oximetry 04/02/17 04/02/17 04/02/17 04:00 04:30 05:00 Temperature 98.2 F Pulse Rate 91 H 105 H 111 H Pulse Rate [ Anterior Bilateral Throughout] Respiratory 13 14 16 Rate Respiratory Rate [Anterior Bilateral Throughout] Blood Pressure 142/85 133/81 131/84 O2 Sat by Pulse 99 100 Oximetry 04/02/17 04/02/17 04/02/17 05:20 05:30 05:56 Temperature Pulse Rate 111 H 106 H 101 H Pulse Rate [ Anterior Bilateral Throughout] Respiratory 18 12 Rate Respiratory Rate [Anterior Bilateral Throughout] Blood Pressure 136/89 136/85 O2 Sat by Pulse 98 Oximetry 04/02/17 04/02/17 04/02/17 06:00 06:05 06:30 Temperature Pulse Rate 105 H 105 H 99 H Pulse Rate [ Anterior Bilateral Throughout] Respiratory 13 12 Rate Respiratory Rate [Anterior Bilateral Throughout] Blood Pressure 141/84 125/88 O2 Sat by Pulse 96 97 Oximetry 04/02/17 04/02/17 04/02/17 07:00 07:30 08:00 Temperature 98.7 F Pulse Rate 97 H 92 H 89 Pulse Rate [ Anterior Bilateral Throughout] Respiratory 14 12 10 L Rate Respiratory Rate [Anterior Bilateral Throughout] Blood Pressure 132/88 134/84 132/81 O2 Sat by Pulse 97 98 98 Oximetry 04/02/17 04/02/17 04/02/17 08:30 08:49 09:00 Temperature Pulse Rate 96 H 112 H Pulse Rate [ Anterior Bilateral Throughout] Respiratory 12 21 Rate Respiratory Rate [Anterior Bilateral Throughout] Blood Pressure 119/83 122/80 144/78 O2 Sat by Pulse 97 99 Oximetry 04/02/17 04/02/17 04/02/17 09:01 09:12 09:30 Temperature Pulse Rate 101 H Pulse Rate [ 102 H 100 H Anterior Bilateral Throughout] Respiratory 14 Rate Respiratory 20 21 Rate [Anterior Bilateral Throughout] Blood Pressure 148/92 O2 Sat by Pulse 98 Oximetry 04/02/17 04/02/17 04/02/17 10:00 10:30 11:00 Temperature Pulse Rate 96 H 110 H 110 H Pulse Rate [ Anterior Bilateral Throughout] Respiratory 15 14 13 Rate Respiratory Rate [Anterior Bilateral Throughout] Blood Pressure 136/92 135/86 144/89 O2 Sat by Pulse 98 97 98 Oximetry 04/02/17 04/02/17 04/02/17 11:30 11:53 12:00 Temperature Pulse Rate 114 H 96 H 101 H Pulse Rate [ Anterior Bilateral Throughout] Respiratory 15 13 Rate Respiratory Rate [Anterior Bilateral Throughout] Blood Pressure 140/84 124/77 122/76 O2 Sat by Pulse 98 96 98 Oximetry 04/02/17 04/02/17 04/02/17 12:06 12:07 12:30 Temperature Pulse Rate 103 H Pulse Rate [ 99 H Anterior Bilateral Throughout] Respiratory 9 L Rate Respiratory 17 Rate [Anterior Bilateral Throughout] Blood Pressure 108/66 113/74 O2 Sat by Pulse 99 Oximetry - General Appearance General appearance: well-developed, well-nourished, appears stated age EENT: PERRL, mucous membranes moist Neck: no JVD, no thyromegaly, other (right IJ Vas-Cath in place) Respiratory: Present: Clear to Ascultation Cardiology: regular, irregularly irregular Gastrointestinal: normal, normoactive bowel sounds Integumentary: no rash, other (1+ edema) - Lab 04/02/17 04:00 04/02/17 04:22 Most recent lab results Calcium 7.6 mg/dL (8.4-10.2) L 04/02/17 04:22 Phosphorus 4.60 mg/dL (2.5-4.5) H 03/06/17 04:50 Magnesium 1.60 mg/dL (1.7-2.3) L 03/19/17 06:55 Urine Creatinine 86.5 mg/dL (0.1-20.0) H 03/29/17 22:10 Urine Sodium 28 mEq/L 03/29/17 22:10
[2017-04-02] MEDS: MERREM/NS 500 MG/50 ML 500 MG/50 ML BAG IV SCH ×3 (14:13→18:55)
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
[2017-04-03] MEDS: LOPRESSOR PO SCH ×4 (00:25→23:57)
[2017-04-03] MEDS: CARDIZEM PO SCH ×5 (00:26→23:58)
[2017-04-03] MEDS: NOVOLOG SUB-Q SCH ×4 (00:27→18:45)
[2017-04-03] MEDS: DIPRIVAN 10 MG/ML 1,000 MG/100 ML BOTTLE IV SCH ×5 (01:50→18:56)
--- NOTE | 2017-04-03 03:07 | Operative Report ---
PROCEDURE: Bronchoscopy. INDICATION: Mucus plugging and abnormal chest x-ray. DESCRIPTION OF PROCEDURE: With informed consent obtained from sister, procedure was performed. The patient received Versed for sedation during the procedure. Local anesthesia obtained with lidocaine. Via the ET tube, endoscope was introduced. Lot of mucus plugs were noted coming from the right, but mainly from the left, both upper and lower lobes. Pus was aspirated and specimen sent for C and S. Continued aspiration was done until ___. The patient tolerated procedure well. FiO2 had been increased to 100% prior to the procedure. Spoke to the patient's sister after procedure. JOB# [id number] SHELL/JUHI
[2017-04-03] MEDS ORDERED: NACL 0.9 (PRIMING MACHINE ONLY DIALYSIS) MC ONE ×2 (03:55)
[2017-04-03] MEDS: DUONEB *Not for PRN Use IH SCH ×6 (03:57→23:58)
[2017-04-03 05:05] LABS: ISTAT Base Excess 2; ISTAT HCO3 25.9; ISTAT PCO2 37.2 (35-45); ISTAT PH 7.451 (7.35-7.45); ISTAT PO2 146 (80-105); ISTAT SO2 99; ISTAT TCO2 27
[2017-04-03 06:49] LABS: Hematocrit 28.7 % (35.5-45.6); Hemoglobin 9.7 gm/dl (11.8-15.2); Mean Corpuscular HGB Conc 34 % (32-34); Mean Corpuscular Hemoglobin 32 pg (28-32); Mean Corpuscular Volume 95 fl (84-94); Platelet Count 153 K/mm3 (140-440); Red Blood Count 3.03 M/mm3 (3.65-5.03); Red Cell Distribution Width 15.9 % (13.2-15.2); White Blood Count 6.2 K/mm3 (4.5-11.0)
[2017-04-03 07:06] LABS: BUN/Creatinine Ratio 7.41; Chloride 102.8 mmol/L (98-107); Potassium 3.9 mmol/L (3.6-5.0)
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
--- NOTE | 2017-04-03 09:15 | Progress Note ---
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 Total Bilirubin AST Total Creatine Kinase CK-MB (CK-2) Total Protein Albumin Urine Creatinine Urine Chloride 03/15/17 03/15/17 03/15/17 01:12 06:49 08:46 WBC 23.9 H RBC Hgb 16.1 H Hct 49.4 H MCV 100 H D MCH 33 H MCHC RDW Plt Count Lymph % (Auto) [place] % (Auto) [place] # Seg Neutrophils % Seg Neuts % (Manual) 92.0 H Lymphocytes % (Manual) 4.0 L Monocytes % (Manual) Seg Neutrophils # Seg Neutrophils # Man 22.0 H Lymphocytes # (Manual) 1.0 L Monocytes # (Manual) 1.0 H Eosinophils # (Manual) PT INR APTT Heparin Anti-Xa Level POC ABG pH POC ABG pCO2 POC ABG pO2 Sodium Potassium Chloride 91.0 L Carbon Dioxide 33 H BUN 45 H Creatinine Glucose 160 H POC Glucose 147 H Calcium Phosphorus Magnesium Total Bilirubin AST 41 H Total Creatine Kinase CK-MB (CK-2) Total Protein Albumin 3.0 L Urine Creatinine Urine Chloride 03/15/17 03/15/17 03/15/17 12:11 16:00 20:51 WBC RBC Hgb Hct MCV MCH MCHC RDW Plt Count Lymph % (Auto) [place] % (Auto) [place] # Seg Neutrophils % Seg Neuts % (Manual) Lymphocytes % (Manual) Monocytes % (Manual) Seg Neutrophils # Seg Neutrophils # Man Lymphocytes # (Manual) Monocytes # (Manual) Eosinophils # (Manual) PT INR APTT Heparin Anti-Xa Level POC ABG pH POC ABG pCO2 POC ABG pO2 Sodium Potassium Chloride Carbon Dioxide BUN Creatinine Glucose POC Glucose 144 H 134 H 148 H Calcium Phosphorus Magnesium Total Bilirubin AST Total Creatine Kinase CK-MB (CK-2) Total Protein Albumin Urine Creatinine Urine Chloride 03/16/17 03/16/17 03/16/17 05:59 06:02 09:15 WBC 20.9 H RBC Hgb Hct 45.8 H MCV 99 H MCH 33 H MCHC RDW Plt Count Lymph % (Auto) [place] % (Auto) [place] # Seg Neutrophils % Seg Neuts % (Manual) 92.0 H Lymphocytes % (Manual) 4.0 L Monocytes % (Manual) Seg Neutrophils # Seg Neutrophils # Man 19.2 H Lymphocytes # (Manual) 0.8 L Monocytes # (Manual) Eosinophils # (Manual) PT INR APTT Heparin Anti-Xa Level POC ABG pH POC ABG pCO2 POC ABG pO2 Sodium Potassium Chloride 92.3 L Carbon Dioxide 34 H BUN 44 H Creatinine Glucose 150 H POC Glucose 127 H Calcium Phosphorus Magnesium Total Bilirubin AST Total Creatine Kinase CK-MB (CK-2) Total Protein Albumin Urine Creatinine Urine Chloride 03/16/17 03/16/17 03/17/17 11:59 18:08 07:06 WBC RBC Hgb Hct MCV MCH MCHC RDW Plt Count Lymph % (Auto) [place] % (Auto) [place] # Seg Neutrophils % Seg Neuts % (Manual) Lymphocytes % (Manual) Monocytes % (Manual) Seg Neutrophils # Seg Neutrophils # Man Lymphocytes # (Manual) Monocytes # (Manual) Eosinophils # (Manual) PT INR APTT Heparin Anti-Xa Level POC ABG pH POC ABG pCO2 POC ABG pO2 Sodium Potassium Chloride 93.3 L Carbon Dioxide 35 H BUN 31 H Creatinine Glucose 132 H POC Glucose 147 H 138 H Calcium Phosphorus Magnesium Total Bilirubin AST Total Creatine Kinase CK-MB (CK-2) Total Protein Albumin Urine Creatinine Urine Chloride 03/17/17 03/17/17 03/17/17 07:06 07:14 12:35 WBC 16.6 H RBC Hgb 15.6 H Hct 47.5 H MCV 99 H MCH 33 H MCHC RDW Plt Count Lymph % (Auto) 8.4 L [place] % (Auto) 8.1 H [place] # 1.3 H Seg Neutrophils % 81.8 H Seg Neuts % (Manual) Lymphocytes % (Manual) Monocytes % (Manual) Seg Neutrophils # 13.6 H Seg Neutrophils # Man Lymphocytes # (Manual) Monocytes # (Manual) Eosinophils # (Manual) PT INR APTT Heparin Anti-Xa Level POC ABG pH POC ABG pCO2 POC ABG pO2 Sodium Potassium Chloride Carbon Dioxide BUN Creatinine Glucose POC Glucose 119 H 132 H Calcium Phosphorus Magnesium Total Bilirubin AST Total Creatine Kinase CK-MB (CK-2) Total Protein Albumin Urine Creatinine Urine Chloride 03/18/17 03/18/17 03/18/17 05:05 06:15 06:15 WBC 15.8 H RBC Hgb 16.5 H Hct 49.3 H MCV 99 H MCH 33 H MCHC RDW Plt Count Lymph % (Auto) [place] % (Auto) [place] # Seg Neutrophils % Seg Neuts % (Manual) 88.0 H Lymphocytes % (Manual) 2.0 L Monocytes % (Manual) 8.0 H Seg Neutrophils # Seg Neutrophils # Man 13.9 H Lymphocytes # (Manual) 0.3 L Monocytes # (Manual) 1.3 H Eosinophils # (Manual) PT INR APTT Heparin Anti-Xa Level POC ABG pH POC ABG pCO2 72.9 H POC ABG pO2 168 H Sodium 147 H Potassium 3.5 L Chloride 95.3 L Carbon Dioxide 37 H BUN 29 H Creatinine Glucose 155 H POC Glucose Calcium Phosphorus Magnesium Total Bilirubin AST Total Creatine Kinase CK-MB (CK-2) Total Protein Albumin Urine Creatinine Urine Chloride 03/18/17 03/18/17 03/18/17 08:27 11:24 11:31 WBC RBC Hgb Hct MCV MCH MCHC RDW Plt Count Lymph % (Auto) [place] % (Auto) [place] # Seg Neutrophils % Seg Neuts % (Manual) Lymphocytes % (Manual) Monocytes % (Manual) Seg Neutrophils # Seg Neutrophils # Man Lymphocytes # (Manual) Monocytes # (Manual) Eosinophils # (Manual) PT INR APTT Heparin Anti-Xa Level POC ABG pH 7.530 H POC ABG pCO2 POC ABG pO2 60 L Sodium Potassium Chloride Carbon Dioxide BUN Creatinine Glucose POC Glucose 123 H 176 H Calcium Phosphorus Magnesium Total Bilirubin AST Total Creatine Kinase CK-MB (CK-2) Total Protein Albumin Urine Creatinine Urine Chloride 03/18/17 03/18/17 03/18/17 14:10 15:24 17:23 WBC RBC Hgb 15.4 H Hct 46.4 H MCV MCH MCHC RDW Plt Count Lymph % (Auto) [place] % (Auto) [place] # Seg Neutrophils % Seg Neuts % (Manual) Lymphocytes % (Manual) Monocytes % (Manual) Seg Neutrophils # Seg Neutrophils # Man Lymphocytes # (Manual) Monocytes # (Manual) Eosinophils # (Manual) PT INR APTT Heparin Anti-Xa Level POC ABG pH POC ABG pCO2 POC ABG pO2 Sodium Potassium Chloride 94.5 L Carbon Dioxide 33 H BUN 33 H Creatinine 1.6 H Glucose 241 H POC Glucose 244 H Calcium Phosphorus Magnesium Total Bilirubin AST Total Creatine Kinase CK-MB (CK-2) Total Protein Albumin 3.0 L Urine Creatinine Urine Chloride 03/18/17 03/18/17 03/19/17 17:23 21:33 03:54 WBC 25.4 H RBC Hgb Hct MCV 98 H MCH MCHC RDW Plt Count Lymph % (Auto) [place] % (Auto) [place] # Seg Neutrophils % Seg Neuts % (Manual) 83.0 H Lymphocytes % (Manual) 4.5 L Monocytes % (Manual) 8.0 H Seg Neutrophils # Seg Neutrophils # Man 21.1 H Lymphocytes # (Manual) 1.1 L Monocytes # (Manual) 2.0 H Eosinophils # (Manual) PT 17.1 H INR 1.40 H APTT Heparin Anti-Xa Level POC ABG pH POC ABG pCO2 POC ABG pO2 Sodium Potassium Chloride Carbon Dioxide BUN Creatinine Glucose POC Glucose 164 H Calcium Phosphorus Magnesium Total Bilirubin AST Total Creatine Kinase CK-MB (CK-2) Total Protein Albumin Urine Creatinine Urine Chloride 03/19/17 03/19/17 03/19/17 03:54 06:55 06:55 WBC RBC Hgb Hct MCV MCH MCHC RDW Plt Count Lymph % (Auto) [place] % (Auto) [place] # Seg Neutrophils % Seg Neuts % (Manual) Lymphocytes % (Manual) Monocytes % (Manual) Seg Neutrophils # Seg Neutrophils # Man Lymphocytes # (Manual) Monocytes # (Manual) Eosinophils # (Manual) PT INR APTT Heparin Anti-Xa Level 0.29 L POC ABG pH POC ABG pCO2 POC ABG pO2 Sodium 146 H Potassium 3.4 L Chloride 97.8 L Carbon Dioxide 33 H BUN 30 H Creatinine Glucose 134 H POC Glucose Calcium Phosphorus Magnesium 1.60 L Total Bilirubin AST Total Creatine Kinase CK-MB (CK-2) Total Protein Albumin Urine Creatinine Urine Chloride 03/19/17 03/19/17 03/19/17 08:01 12:56 14:54 WBC RBC Hgb Hct MCV MCH MCHC RDW Plt Count Lymph % (Auto) [place] % (Auto) [place] # Seg Neutrophils % Seg Neuts % (Manual) Lymphocytes % (Manual) Monocytes % (Manual) Seg Neutrophils # Seg Neutrophils # Man Lymphocytes # (Manual) Monocytes # (Manual) Eosinophils # (Manual) PT INR APTT Heparin Anti-Xa Level POC ABG pH POC ABG pCO2 57.8 H POC ABG pO2 71 L Sodium Potassium Chloride Carbon Dioxide BUN Creatinine Glucose POC Glucose 139 H 167 H Calcium Phosphorus Magnesium Total Bilirubin AST Total Creatine Kinase CK-MB (CK-2) Total Protein Albumin Urine Creatinine Urine Chloride 03/19/17 03/19/17 03/20/17 15:53 21:04 03:36 WBC RBC Hgb 15.3 H Hct 48.1 H MCV MCH MCHC RDW Plt Count Lymph % (Auto) [place] % (Auto) [place] # Seg Neutrophils % Seg Neuts % (Manual) Lymphocytes % (Manual) Monocytes % (Manual) Seg Neutrophils # Seg Neutrophils # Man Lymphocytes # (Manual) Monocytes # (Manual) Eosinophils # (Manual) PT INR APTT Heparin Anti-Xa Level POC ABG pH POC ABG pCO2 POC ABG pO2 Sodium Potassium Chloride Carbon Dioxide BUN Creatinine Glucose POC Glucose 172 H 159 H Calcium Phosphorus Magnesium Total Bilirubin AST Total Creatine Kinase CK-MB (CK-2) Total Protein Albumin Urine Creatinine Urine Chloride 03/20/17 03/20/17 03/20/17 07:45 12:02 14:07 WBC RBC Hgb Hct MCV MCH MCHC RDW Plt Count Lymph % (Auto) [place] % (Auto) [place] # Seg Neutrophils % Seg Neuts % (Manual) Lymphocytes % (Manual) Monocytes % (Manual) Seg Neutrophils # Seg Neutrophils # Man Lymphocytes # (Manual) Monocytes # (Manual) Eosinophils # (Manual) PT INR APTT Heparin Anti-Xa Level POC ABG pH 7.312 L POC ABG pCO2 68.3 H POC ABG pO2 47 L Sodium Potassium Chloride Carbon Dioxide BUN Creatinine Glucose POC Glucose 160 H 142 H Calcium Phosphorus Magnesium Total Bilirubin AST Total Creatine Kinase CK-MB (CK-2) Total Protein Albumin Urine Creatinine Urine Chloride 03/20/17 03/20/17 03/20/17 15:57 15:59 19:50 WBC RBC Hgb Hct MCV MCH MCHC RDW Plt Count Lymph % (Auto) [place] % (Auto) [place] # Seg Neutrophils % Seg Neuts % (Manual) Lymphocytes % (Manual) Monocytes % (Manual) Seg Neutrophils # Seg Neutrophils # Man Lymphocytes # (Manual) Monocytes # (Manual) Eosinophils # (Manual) PT INR APTT Heparin Anti-Xa Level POC ABG pH 7.214 L POC ABG pCO2 82.8 H 58.7 H POC ABG pO2 69 L Sodium Potassium Chloride Carbon Dioxide BUN Creatinine Glucose POC Glucose 149 H Calcium Phosphorus Magnesium Total Bilirubin AST Total Creatine Kinase CK-MB (CK-2) Total Protein Albumin Urine Creatinine Urine Chloride 03/20/17 03/20/17 03/21/17 21:19 23:34 04:18 WBC RBC Hgb Hct MCV MCH MCHC RDW Plt Count Lymph % (Auto) [place] % (Auto) [place] # Seg Neutrophils % Seg Neuts % (Manual) Lymphocytes % (Manual) Monocytes % (Manual) Seg Neutrophils # Seg Neutrophils # Man Lymphocytes # (Manual) Monocytes # (Manual) Eosinophils # (Manual) PT INR APTT Heparin Anti-Xa Level 0.20 L POC ABG pH POC ABG pCO2 48.6 H POC ABG pO2 79 L Sodium Potassium Chloride Carbon Dioxide BUN Creatinine Glucose POC Glucose 206 H Calcium Phosphorus Magnesium Total Bilirubin AST Total Creatine Kinase CK-MB (CK-2) Total Protein Albumin Urine Creatinine Urine Chloride 03/21/17 03/21/17 03/21/17 04:21 04:21 05:23 WBC RBC Hgb Hct MCV MCH MCHC RDW Plt Count Lymph % (Auto) [place] % (Auto) [place] # Seg Neutrophils % Seg Neuts % (Manual) Lymphocytes % (Manual) Monocytes % (Manual) Seg Neutrophils # Seg Neutrophils # Man Lymphocytes # (Manual) Monocytes # (Manual) Eosinophils # (Manual) PT INR APTT Heparin Anti-Xa Level 0.24 L POC ABG pH POC ABG pCO2 POC ABG pO2 Sodium 147 H Potassium Chloride Carbon Dioxide BUN 42 H Creatinine 2.6 H D Glucose 209 H POC Glucose 181 H Calcium 7.9 L Phosphorus Magnesium Total Bilirubin AST Total Creatine Kinase CK-MB (CK-2) Total Protein Albumin Urine Creatinine Urine Chloride 03/21/17 03/21/17 03/21/17 13:16 13:16 14:43 WBC 27.8 H RBC Hgb Hct MCV 101 H D MCH MCHC RDW Plt Count Lymph % (Auto) [place] % (Auto) [place] # Seg Neutrophils % Seg Neuts % (Manual) 76.0 H Lymphocytes % (Manual) 7.0 L Monocytes % (Manual) Seg Neutrophils # Seg Neutrophils # Man 21.1 H Lymphocytes # (Manual) Monocytes # (Manual) 1.1 H Eosinophils # (Manual) PT INR APTT Heparin Anti-Xa Level 0.25 L POC ABG pH 7.474 H POC ABG pCO2 POC ABG pO2 59 L Sodium Potassium Chloride Carbon Dioxide BUN Creatinine Glucose POC Glucose Calcium Phosphorus Magnesium Total Bilirubin AST Total Creatine Kinase CK-MB (CK-2) Total Protein Albumin Urine Creatinine Urine Chloride 03/21/17 03/21/17 03/21/17 17:00 18:20 23:40 WBC RBC Hgb Hct MCV MCH MCHC RDW Plt Count Lymph % (Auto) [place] % (Auto) [place] # Seg Neutrophils % Seg Neuts % (Manual) Lymphocytes % (Manual) Monocytes % (Manual) Seg Neutrophils # Seg Neutrophils # Man Lymphocytes # (Manual) Monocytes # (Manual) Eosinophils # (Manual) PT INR APTT Heparin Anti-Xa Level POC ABG pH POC ABG pCO2 POC ABG pO2 Sodium Potassium Chloride Carbon Dioxide BUN 48 H Creatinine 3.2 H Glucose 135 H POC Glucose 152 H 136 H Calcium 6.8 L Phosphorus Magnesium Total Bilirubin AST Total Creatine Kinase CK-MB (CK-2) Total Protein 5.3 L D Albumin 1.7 L Urine Creatinine Urine Chloride 03/22/17 03/22/17 03/22/17 04:30 04:30 04:30 WBC 29.3 H RBC Hgb Hct MCV 100 H MCH MCHC 31 L RDW 15.3 H Plt Count Lymph % (Auto) [place] % (Auto) [place] # Seg Neutrophils % Seg Neuts % (Manual) Lymphocytes % (Manual) Monocytes % (Manual) Seg Neutrophils # Seg Neutrophils # Man Lymphocytes # (Manual) Monocytes # (Manual) Eosinophils # (Manual) PT INR APTT Heparin Anti-Xa Level 0.29 L POC ABG pH POC ABG pCO2 POC ABG pO2 Sodium Potassium Chloride Carbon Dioxide BUN 60 H Creatinine 4.3 H Glucose 118 H POC Glucose Calcium 8.2 L D Phosphorus Magnesium Total Bilirubin AST Total Creatine Kinase CK-MB (CK-2) Total Protein Albumin 1.8 L Urine Creatinine Urine Chloride 03/22/17 03/22/17 03/22/17 05:08 07:00 07:00 WBC 24.8 H RBC Hgb Hct MCV 100 H MCH MCHC RDW Plt Count Lymph % (Auto) [place] % (Auto) [place] # Seg Neutrophils % Seg Neuts % (Manual) 94.0 H Lymphocytes % (Manual) 0 L Monocytes % (Manual) Seg Neutrophils # Seg Neutrophils # Man 23.3 H Lymphocytes # (Manual) 0.0 L Monocytes # (Manual) Eosinophils # (Manual) 0.7 H PT INR APTT Heparin Anti-Xa Level POC ABG pH POC ABG pCO2 POC ABG pO2 Sodium 147 H Potassium Chloride 109.2 H Carbon Dioxide BUN 58 H Creatinine 4.1 H Glucose 117 H POC Glucose 124 H Calcium 7.4 L Phosphorus Magnesium Total Bilirubin AST Total Creatine Kinase CK-MB (CK-2) Total Protein Albumin Urine Creatinine Urine Chloride 03/22/17 03/22/17 03/22/17 08:40 11:37 14:30 WBC RBC Hgb Hct MCV MCH MCHC RDW Plt Count Lymph % (Auto) [place] % (Auto) [place] # Seg Neutrophils % Seg Neuts % (Manual) Lymphocytes % (Manual) Monocytes % (Manual) Seg Neutrophils # Seg Neutrophils # Man Lymphocytes # (Manual) Monocytes # (Manual) Eosinophils # (Manual) PT 16.2 H INR 1.31 H APTT 68.9 H* Heparin Anti-Xa Level < 0.10 L POC ABG pH POC ABG pCO2 POC ABG pO2 Sodium Potassium Chlor[place] Carbon Dioxide BUN Creatinine Glucose POC Glucose 159 H Calcium Phosphorus Magnesium Total Bilirubin AST Total Creatine Kinase CK-MB (CK-2) Total Protein Albumin Urine Creatinine Urine Chloride 03/22/17 03/22/17 03/22/17 17:53 21:44 23:54 WBC RBC Hgb 11.6 L Hct 33.1 L MCV MCH MCHC RDW Plt Count Lymph % (Auto) [place] % (Auto) [place] # Seg Neutrophils % Seg Neuts % (Manual) Lymphocytes % (Manual) Monocytes % (Manual) Seg Neutrophils # Seg Neutrophils # Man Lymphocytes # (Manual) Monocytes # (Manual) Eosinophils # (Manual) PT INR APTT Heparin Anti-Xa Level POC ABG pH POC ABG pCO2 POC ABG pO2 Sodium Potassium Chloride Carbon Dioxide BUN Creatinine Glucose POC Glucose 142 H 131 H Calcium Phosphorus Magnesium Total Bilirubin AST Total Creatine Kinase CK-MB (CK-2) Total Protein Albumin Urine Creatinine Urine Chloride 03/23/17 03/23/17 03/23/17 04:08 05:29 06:34 WBC RBC Hgb Hct MCV MCH MCHC RDW Plt Count Lymph % (Auto) [place] % (Auto) [place] # Seg Neutrophils % Seg Neuts % (Manual) Lymphocytes % (Manual) Monocytes % (Manual) Seg Neutrophils # Seg Neutrophils # Man Lymphocytes # (Manual) Monocytes # (Manual) Eosinophils # (Manual) PT INR APTT Heparin Anti-Xa Level POC ABG pH POC ABG pCO2 POC ABG pO2 75 L Sodium Potassium Chloride Carbon Dioxide 21 L BUN 85 H Creatinine 6.0 H Glucose 134 H POC Glucose 134 H Calcium 8.1 L Phosphorus Magnesium Total Bilirubin AST Total Creatine Kinase CK-MB (CK-2) Total Protein Albumin Urine Creatinine Urine Chloride 03/23/17 03/23/17 03/23/17 12:09 17:20 17:52 WBC RBC Hgb Hct MCV MCH MCHC RDW Plt Count Lymph % (Auto) [place] % (Auto) [place] # Seg Neutrophils % Seg Neuts % (Manual) Lymphocytes % (Manual) Monocytes % (Manual) Seg Neutrophils # Seg Neutrophils # Man Lymphocytes # (Manual) Monocytes # (Manual) Eosinophils # (Manual) PT INR APTT Heparin Anti-Xa Level 1.39 H POC ABG pH POC ABG pCO2 POC ABG pO2 Sodium Potassium Chlor[place] Carbon Dioxide BUN Creatinine Glucose POC Glucose 133 H 151 H Calcium Phosphorus Magnesium Total Bilirubin AST Total Creatine Kinase CK-MB (CK-2) Total Protein Albumin Urine Creatinine Urine Chloride 03/23/17 03/24/17 03/24/17 23:59 03:15 03:15 WBC 23.9 H RBC 3.58 L Hgb 11.6 L Hct 34.6 L MCV 97 H D MCH MCHC RDW Plt Count 122 L Lymph % (Auto) [place] % (Auto) [place] # Seg Neutrophils % Seg Neuts % (Manual) Lymphocytes % (Manual) Monocytes % (Manual) Seg Neutrophils # Seg Neutrophils # Man Lymphocytes # (Manual) Monocytes # (Manual) Eosinophils # (Manual) PT INR APTT Heparin Anti-Xa Level POC ABG pH POC ABG pCO2 POC ABG pO2 Sodium 135 L Potassium Chloride 95.0 L Carbon Dioxide BUN 71 H Creatinine 5.2 H Glucose 123 H POC Glucose 124 H Calcium 8.0 L Phosphorus Magnesium Total Bilirubin AST Total Creatine Kinase CK-MB (CK-2) Total Protein Albumin Urine Creatinine Urine Chloride 03/24/17 03/24/17 03/24/17 03:15 04:53 11:58 WBC RBC Hgb Hct MCV MCH MCHC RDW Plt Count Lymph % (Auto) [place] % (Auto) [place] # Seg Neutrophils % Seg Neuts % (Manual) Lymphocytes % (Manual) Monocytes % (Manual) Seg Neutrophils # Seg Neutrophils # Man Lymphocytes # (Manual) Monocytes # (Manual) Eosinophils # (Manual) PT INR APTT Heparin Anti-Xa Level 0.20 L POC ABG pH POC ABG pCO2 POC ABG pO2 72 L Sodium Potassium Chloride Carbon Dioxide BUN Creatinine Glucose POC Glucose 121 H Calcium Phosphorus Magnesium Total Bilirubin AST Total Creatine Kinase CK-MB (CK-2) Total Protein Albumin Urine Creatinine Urine Chloride 03/24/17 03/25/17 03/25/17 18:16 00:24 05:30 WBC RBC Hgb Hct MCV MCH MCHC RDW Plt Count Lymph % (Auto) [place] % (Auto) [place] # Seg Neutrophils % Seg Neuts % (Manual) Lymphocytes % (Manual) Monocytes % (Manual) Seg Neutrophils # Seg Neutrophils # Man Lymphocytes # (Manual) Monocytes # (Manual) Eosinophils # (Manual) PT INR APTT Heparin Anti-Xa Level POC ABG pH POC ABG pCO2 34.2 L POC ABG pO2 Sodium Potassium Chloride Carbon Dioxide BUN Creatinine Glucose POC Glucose 117 H 107 H Calcium Phosphorus Magnesium Total Bilirubin AST Total Creatine Kinase CK-MB (CK-2) Total Protein Albumin Urine Creatinine Urine Chloride 03/25/17 03/25/17 03/25/17 05:35 11:45 16:48 WBC RBC Hgb Hct MCV MCH MCHC RDW Plt Count Lymph % (Auto) [place] % (Auto) [place] # Seg Neutrophils % Seg Neuts % (Manual) Lymphocytes % (Manual) Monocytes % (Manual) Seg Neutrophils # Seg Neutrophils # Man Lymphocytes # (Manual) Monocytes # (Manual) Eosinophils # (Manual) PT INR APTT Heparin Anti-Xa Level POC ABG pH POC ABG pCO2 POC ABG pO2 Sodium 132 L Potassium Chloride 92.0 L Carbon Dioxide 20 L BUN 102 H Creatinine 7.2 H Glucose 101 H POC Glucose 127 H 114 H Calcium 8.3 L Phosphorus Magnesium Total Bilirubin AST Total Creatine Kinase CK-MB (CK-2) Total Protein Albumin Urine Creatinine Urine Chloride 03/26/17 03/26/17 03/26/17 00:17 04:15 04:15 WBC 21.1 H RBC 3.52 L Hgb 11.0 L Hct 33.2 L MCV 95 H MCH MCHC RDW Plt Count 121 L Lymph % (Auto) [place] % (Auto) [place] # Seg Neutrophils % Seg Neuts % (Manual) Lymphocytes % (Manual) Monocytes % (Manual) Seg Neutrophils # Seg Neutrophils # Man Lymphocytes # (Manual) Monocytes # (Manual) Eosinophils # (Manual) PT INR APTT Heparin Anti-Xa Level POC ABG pH POC ABG pCO2 POC ABG pO2 Sodium 133 L Potassium Chloride 92.9 L Carbon Dioxide 21 L BUN 77 H Creatinine 5.4 H Glucose 115 H POC Glucose 114 H Calcium 8.1 L Phosphorus Magnesium Total Bilirubin AST Total Creatine Kinase CK-MB (CK-2) Total Protein Albumin Urine Creatinine Urine Chloride 03/26/17 03/26/17 03/26/17 04:49 11:36 23:29 WBC RBC Hgb Hct MCV MCH MCHC RDW Plt Count Lymph % (Auto) [place] % (Auto) [place] # Seg Neutrophils % Seg Neuts % (Manual) Lymphocytes % (Manual) Monocytes % (Manual) Seg Neutrophils # Seg Neutrophils # Man Lymphocytes # (Manual) Monocytes # (Manual) Eosinophils # (Manual) PT INR APTT Heparin Anti-Xa Level POC ABG pH POC ABG pCO2 POC ABG pO2 Sodium Potassium Chloride Carbon Dioxide BUN Creatinine Glucose POC Glucose 127 H 123 H 125 H Calcium Phosphorus Magnesium Total Bilirubin AST Total Creatine Kinase CK-MB (CK-2) Total Protein Albumin Urine Creatinine Urine Chloride 03/27/17 03/27/17 03/27/17 04:00 04:46 05:06 WBC RBC Hgb Hct MCV MCH MCHC RDW Plt Count Lymph % (Auto) [place] % (Auto) [place] # Seg Neutrophils % Seg Neuts % (Manual) Lymphocytes % (Manual) Monocytes % (Manual) Seg Neutrophils # Seg Neutrophils # Man Lymphocytes # (Manual) Monocytes # (Manual) Eosinophils # (Manual) PT INR APTT Heparin Anti-Xa Level POC ABG pH POC ABG pCO2 31.4 L POC ABG pO2 Sodium 132 L Potassium Chloride 90.5 L Carbon Dioxide 19 L BUN 95 H Creatinine 6.7 H Glucose 110 H POC Glucose 116 H Calcium Phosphorus Magnesium Total Bilirubin AST Total Creatine Kinase CK-MB (CK-2) Total Protein Albumin Urine Creatinine Urine Chloride 03/27/17 03/27/17 03/27/17 08:11 08:11 11:34 WBC 24.7 H RBC Hgb 11.5 L Hct 35.0 L MCV 95 H MCH MCHC RDW Plt Count Lymph % (Auto) [place] % (Auto) [place] # Seg Neutrophils % Seg Neuts % (Manual) Lymphocytes % (Manual) Monocytes % (Manual) Seg Neutrophils # Seg Neutrophils # Man Lymphocytes # (Manual) Monocytes # (Manual) Eosinophils # (Manual) PT INR APTT Heparin Anti-Xa Level < 0.10 L POC ABG pH POC ABG pCO2 POC ABG pO2 Sodium Potassium Chloride Carbon Dioxide BUN Creatinine Glucose POC Glucose 118 H Calcium Phosphorus Magnesium Total Bilirubin AST Total Creatine Kinase CK-MB (CK-2) Total Protein Albumin Urine Creatinine Urine Chloride 03/27/17 03/27/17 03/28/17 16:44 23:59 05:07 WBC RBC Hgb Hct MCV MCH MCHC RDW Plt Count Lymph % (Auto) [place] % (Auto) [place] # Seg Neutrophils % Seg Neuts % (Manual) Lymphocytes % (Manual) Monocytes % (Manual) Seg Neutrophils # Seg Neutrophils # Man Lymphocytes # (Manual) Monocytes # (Manual) Eosinophils # (Manual) PT INR APTT Heparin Anti-Xa Level POC ABG pH POC ABG pCO2 POC ABG pO2 Sodium Potassium Chloride Carbon Dioxide BUN Creatinine Glucose POC Glucose 110 H 109 H 110 H Calcium Phosphorus Magnesium Total Bilirubin AST Total Creatine Kinase CK-MB (CK-2) Total Protein Albumin Urine Creatinine Urine Chloride 03/28/17 03/28/17 03/28/17 07:00 11:24 11:50 WBC 26.6 H RBC 3.42 L Hgb 10.8 L Hct 33.2 L MCV 97 H MCH MCHC RDW 15.4 H Plt Count Lymph % (Auto) [place] % (Auto) [place] # Seg Neutrophils % Seg Neuts % (Manual) Lymphocytes % (Manual) Monocytes % (Manual) Seg Neutrophils # Seg Neutrophils # Man Lymphocytes # (Manual) Monocytes # (Manual) Eosinophils # (Manual) PT INR APTT Heparin Anti-Xa Level POC ABG pH POC ABG pCO2 POC ABG pO2 Sodium 131 L Potassium 5.3 H Chloride 86.6 L Carbon Dioxide 17 L BUN 112 H Creatinine 7.9 H Glucose 120 H POC Glucose 141 H Calcium Phosphorus Magnesium Total Bilirubin AST Total Creatine Kinase CK-MB (CK-2) Total Protein Albumin Urine Creatinine Urine Chloride 03/28/17 03/28/17 03/28/17 17:25 18:04 23:07 WBC RBC Hgb Hct MCV MCH MCHC RDW Plt Count Lymph % (Auto) [place] % (Auto) [place] # Seg Neutrophils % Seg Neuts % (Manual) Lymphocytes % (Manual) Monocytes % (Manual) Seg Neutrophils # Seg Neutrophils # Man Lymphocytes # (Manual) Monocytes # (Manual) Eosinophils # (Manual) PT INR APTT Heparin Anti-Xa Level 0.23 L POC ABG pH POC ABG pCO2 POC ABG pO2 Sodium Potassium Chloride Carbon Dioxide BUN Creatinine Glucose POC Glucose 128 H 115 H Calcium Phosphorus Magnesium Total Bilirubin AST Total Creatine Kinase CK-MB (CK-2) Total Protein Albumin Urine Creatinine Urine Chloride 03/29/17 03/29/17 03/29/17 03:23 05:16 08:20 WBC RBC Hgb Hct MCV MCH MCHC RDW Plt Count Lymph % (Auto) [place] % (Auto) [place] # Seg Neutrophils % Seg Neuts % (Manual) Lymphocytes % (Manual) Monocytes % (Manual) Seg Neutrophils # Seg Neutrophils # Man Lymphocytes # (Manual) Monocytes # (Manual) Eosinophils # (Manual) PT INR APTT Heparin Anti-Xa Level 0.10 L POC ABG pH POC ABG pCO2 POC ABG pO2 Sodium 126 L Potassium 5.6 H Chloride 87.5 L Carbon Dioxide 21 L BUN 84 H Creatinine 6.0 H Glucose 144 H POC Glucose 146 H Calcium 7.9 L Phosphorus Magnesium Total Bilirubin AST Total Creatine Kinase CK-MB (CK-2) Total Protein Albumin Urine Creatinine Urine Chloride 03/29/17 03/29/17 03/29/17 08:20 09:13 10:00 WBC 27.6 H RBC 3.27 L Hgb 10.2 L Hct 31.8 L MCV 97 H MCH MCHC RDW 15.3 H Plt Count Lymph % (Auto) [place] % (Auto) [place] # Seg Neutrophils % Seg Neuts % (Manual) Lymphocytes % (Manual) Monocytes % (Manual) Seg Neutrophils # Seg Neutrophils # Man Lymphocytes # (Manual) Monocytes # (Manual) Eosinophils # (Manual) PT INR APTT Heparin Anti-Xa Level 0.84 H POC ABG pH 7.204 L POC ABG pCO2 52.8 H POC ABG pO2 57 L Sodium Potassium Chloride Carbon Dioxide BUN Creatinine Glucose POC Glucose Calcium Phosphorus Magnesium Total Bilirubin AST Total Creatine Kinase CK-MB (CK-2) Total Protein Albumin Urine Creatinine Urine Chloride 03/29/17 03/29/17 03/29/17 10:24 12:27 16:44 WBC RBC Hgb Hct MCV MCH MCHC RDW Plt Count Lymph % (Auto) [place] % (Auto) [place] # Seg Neutrophils % Seg Neuts % (Manual) Lymphocytes % (Manual) Monocytes % (Manual) Seg Neutrophils # Seg Neutrophils # Man Lymphocytes # (Manual) Monocytes # (Manual) Eosinophils # (Manual) PT INR APTT Heparin Anti-Xa Level < 0.10 L POC ABG pH 7.305 L POC ABG pCO2 POC ABG pO2 73 L Sodium Potassium Chloride Carbon Dioxide BUN Creatinine Glucose POC Glucose 152 H Calcium Phosphorus Magnesium Total Bilirubin AST Total Creatine Kinase CK-MB (CK-2) Total Protein Albumin Urine Creatinine Urine Chloride 03/29/17 03/29/17 03/29/17 17:48 18:56 22:10 WBC RBC Hgb Hct MCV MCH MCHC RDW Plt Count Lymph % (Auto) [place] % (Auto) [place] # Seg Neutrophils % Seg Neuts % (Manual) Lymphocytes % (Manual) Monocytes % (Manual) Seg Neutrophils # Seg Neutrophils # Man Lymphocytes # (Manual) Monocytes # (Manual) Eosinophils # (Manual) PT INR APTT Heparin Anti-Xa Level POC ABG pH POC ABG pCO2 POC ABG pO2 Sodium 125 L Potassium 5.8 H Chloride 85.4 L Carbon Dioxide 16 L BUN 96 H Creatinine 6.9 H Glucose 135 H POC Glucose 130 H Calcium Phosphorus Magnesium Total Bilirubin AST Total Creatine Kinase CK-MB (CK-2) Total Protein Albumin Urine Creatinine 86.5 H Urine Chloride 15.2 L 03/30/17 03/30/17 03/30/17 00:11 01:00 05:42 WBC RBC Hgb Hct MCV MCH MCHC RDW Plt Count Lymph % (Auto) [place] % (Auto) [place] # Seg Neutrophils % Seg Neuts % (Manual) Lymphocytes % (Manual) Monocytes % (Manual) Seg Neutrophils # Seg Neutrophils # Man Lymphocytes # (Manual) Monocytes # (Manual) Eosinophils # (Manual) PT INR APTT Heparin Anti-Xa Level 0.80 H POC ABG pH POC ABG pCO2 POC ABG pO2 Sodium Potassium Chloride Carbon Dioxide BUN Creatinine Glucose POC Glucose 146 H 162 H Calcium Phosphorus Magnesium Total Bilirubin AST Total Creatine Kinase CK-MB (CK-2) Total Protein Albumin Urine Creatinine Urine Chloride 03/30/17 03/30/17 03/30/17 07:32 07:38 08:20 WBC 27.7 H RBC 3.14 L Hgb 9.7 L Hct 30.1 L MCV 96 H MCH MCHC RDW 16.2 H Plt Count Lymph % (Auto) [place] % (Auto) [place] # Seg Neutrophils % Seg Neuts % (Manual) 93.0 H Lymphocytes % (Manual) 1.0 L Monocytes % (Manual) Seg Neutrophils # Seg Neutrophils # Man 25.8 H Lymphocytes # (Manual) 0.3 L Monocytes # (Manual) 1.0 H Eosinophils # (Manual) PT INR APTT Heparin Anti-Xa Level 0.99 H POC ABG pH POC ABG pCO2 POC ABG pO2 Sodium 127 L Potassium 5.9 H Chloride 88.5 L Carbon Dioxide 16 L BUN 101 H Creatinine 7.5 H Glucose 147 H POC Glucose Calcium 8.0 L Phosphorus Magnesium Total Bilirubin AST Total Creatine Kinase CK-MB (CK-2) Total Protein Albumin Urine Creatinine Urine Chloride 03/30/17 03/30/17 03/30/17 12:19 16:07 16:58 WBC RBC Hgb Hct MCV MCH MCHC RDW Plt Count Lymph % (Auto) [place] % (Auto) [place] # Seg Neutrophils % Seg Neuts % (Manual) Lymphocytes % (Manual) Monocytes % (Manual) Seg Neutrophils # Seg Neutrophils # Man Lymphocytes # (Manual) Monocytes # (Manual) Eosinophils # (Manual) PT INR APTT Heparin Anti-Xa Level 1.07 H POC ABG pH POC ABG pCO2 POC ABG pO2 62 L Sodium Potassium Chloride Carbon Dioxide BUN Creatinine Glucose POC Glucose 179 H Calcium Phosphorus Magnesium Total Bilirubin AST Total Creatine Kinase CK-MB (CK-2) Total Protein Albumin Urine Creatinine Urine Chloride 03/30/17 03/30/17 03/31/17 17:48 Unknown 00:25 WBC RBC Hgb Hct MCV MCH MCHC RDW Plt Count Lymph % (Auto) [place] % (Auto) [place] # Seg Neutrophils % Seg Neuts % (Manual) Lymphocytes % (Manual) Monocytes % (Manual) Seg Neutrophils # Seg Neutrophils # Man Lymphocytes # (Manual) Monocytes # (Manual) Eosinophils # (Manual) PT INR APTT Heparin Anti-Xa Level POC ABG pH POC ABG pCO2 POC ABG pO2 Sodium 124 L Potassium 5.2 H Chloride 86.6 L Carbon Dioxide 16 L BUN 93 H Creatinine 6.3 H Glucose 153 H POC Glucose 162 H 139 H Calcium 7.4 L D Phosphorus Magnesium Total Bilirubin AST Total Creatine Kinase CK-MB (CK-2) Total Protein Albumin Urine Creatinine Urine Chloride 03/31/17 03/31/17 03/31/17 04:18 05:21 11:39 WBC RBC Hgb Hct MCV MCH MCHC RDW Plt Count Lymph % (Auto) [place] % (Auto) [place] # Seg Neutrophils % Seg Neuts % (Manual) Lymphocytes % (Manual) Monocytes % (Manual) Seg Neutrophils # Seg Neutrophils # Man Lymphocytes # (Manual) Monocytes # (Manual) Eosinophils # (Manual) PT INR APTT Heparin Anti-Xa Level POC ABG pH 7.209 L POC ABG pCO2 55.7 H POC ABG pO2 106 H Sodium Potassium Chloride Carbon Dioxide BUN Creatinine Glucose POC Glucose 133 H 133 H Calcium Phosphorus Magnesium Total Bilirubin AST Total Creatine Kinase CK-MB (CK-2) Total Protein Albumin Urine Creatinine Urine Chloride 03/31/17 03/31/17 03/31/17 16:53 Unknown Unknown WBC 25.9 H RBC 3.04 L Hgb 9.6 L Hct 29.9 L MCV 98 H MCH MCHC RDW 16.1 H Plt Count Lymph % (Auto) [place] % (Auto) [place] # Seg Neutrophils % Seg Neuts % (Manual) Lymphocytes % (Manual) Monocytes % (Manual) Seg Neutrophils # Seg Neutrophils # Man Lymphocytes # (Manual) Monocytes # (Manual) Eosinophils # (Manual) PT INR APTT Heparin Anti-Xa Level POC ABG pH POC ABG pCO2 POC ABG pO2 Sodium 133 L Potassium Chloride 91.6 L Carbon Dioxide 20 L BUN 67 H Creatinine 5.3 H Glucose 129 H POC Glucose 146 H Calcium 7.4 L Phosphorus Magnesium Total Bilirubin AST Total Creatine Kinase CK-MB (CK-2) Total Protein Albumin Urine Creatinine Urine Chloride 03/31/17 04/01/17 04/01/17 23:59 04:00 04:00 WBC 16.1 H RBC 3.02 L Hgb 9.6 L Hct 29.0 L MCV 96 H MCH MCHC RDW 16.0 H Plt Count Lymph % (Auto) [place] % (Auto) [place] # Seg Neutrophils % Seg Neuts % (Manual) Lymphocytes % (Manual) Monocytes % (Manual) Seg Neutrophils # Seg Neutrophils # Man Lymphocytes # (Manual) Monocytes # (Manual) Eosinophils # (Manual) PT INR APTT Heparin Anti-Xa Level POC ABG pH POC ABG pCO2 POC ABG pO2 Sodium Potassium 3.1 L D Chloride 96.0 L Carbon Dioxide BUN 45 H Creatinine 4.1 H Glucose POC Glucose 121 H Calcium 7.1 L Phosphorus Magnesium Total Bilirubin AST Total Creatine Kinase CK-MB (CK-2) Total Protein Albumin Urine Creatinine Urine Chloride 04/01/17 04/02/17 04/02/17 05:20 00:15 04:00 WBC 13.5 H RBC 3.05 L Hgb 9.7 L Hct 29.2 L MCV 96 H MCH MCHC RDW 15.9 H Plt Count Lymph % (Auto) [place] % (Auto) [place] # Seg Neutrophils % Seg Neuts % (Manual) Lymphocytes % (Manual) Monocytes % (Manual) Seg Neutrophils # Seg Neutrophils # Man Lymphocytes # (Manual) Monocytes # (Manual) Eosinophils # (Manual) PT INR APTT Heparin Anti-Xa Level POC ABG pH POC ABG pCO2 POC ABG pO2 132 H Sodium Potassium Chloride Carbon Dioxide BUN Creatinine Glucose POC Glucose 110 H Calcium Phosphorus Magnesium Total Bilirubin AST Total Creatine Kinase CK-MB (CK-2) Total Protein Albumin Urine Creatinine Urine Chloride 04/02/17 04/02/17 04/02/17 04:22 04:35 05:25 WBC RBC Hgb Hct MCV MCH MCHC RDW Plt Count Lymph % (Auto) [place] % (Auto) [place] # Seg Neutrophils % Seg Neuts % (Manual) Lymphocytes % (Manual) Monocytes % (Manual) Seg Neutrophils # Seg Neutrophils # Man Lymphocytes # (Manual) Monocytes # (Manual) Eosinophils # (Manual) PT INR APTT Heparin Anti-Xa Level POC ABG pH POC ABG pCO2 POC ABG pO2 106 H Sodium Potassium 2.8 L* Chloride Carbon Dioxide BUN 30 H Creatinine 3.5 H Glucose 113 H POC Glucose 110 H Calcium 7.6 L Phosphorus Magnesium Total Bilirubin AST Total Creatine Kinase CK-MB (CK-2) Total Protein Albumin Urine Creatinine Urine Chloride 04/02/17 04/02/17 04/02/17 06:49 11:56 18:02 WBC RBC Hgb Hct MCV MCH MCHC RDW Plt Count Lymph % (Auto) [place] % (Auto) [place] # Seg Neutrophils % Seg Neuts % (Manual) Lymphocytes % (Manual) Monocytes % (Manual) Seg Neutrophils # Seg Neutrophils # Man Lymphocytes # (Manual) Monocytes # (Manual) Eosinophils # (Manual) PT INR APTT Heparin Anti-Xa Level 0.23 L POC ABG pH POC ABG pCO2 POC ABG pO2 Sodium Potassium Chloride Carbon Dioxide BUN Creatinine Glucose POC Glucose 118 H 128 H Calcium Phosphorus Magnesium Total Bilirubin AST Total Creatine Kinase CK-MB (CK-2) Total Protein Albumin Urine Creatinine Urine Chloride 04/03/17 04/03/17 04/03/17 00:15 04:41 05:54 WBC RBC Hgb Hct MCV MCH MCHC RDW Plt Count Lymph % (Auto) [place] % (Auto) [place] # Seg Neutrophils % Seg Neuts % (Manual) Lymphocytes % (Manual) Monocytes % (Manual) Seg Neutrophils # Seg Neutrophils # Man Lymphocytes # (Manual) Monocytes # (Manual) Eosinophils # (Manual) PT INR APTT Heparin Anti-Xa Level POC ABG pH 7.451 H POC ABG pCO2 POC ABG pO2 146 H Sodium Potassium Chloride Carbon Dioxide BUN Creatinine Glucose POC Glucose 202 H 202 H Calcium Phosphorus Magnesium Total Bilirubin AST Total Creatine Kinase CK-MB (CK-2) Total Protein Albumin Urine Creatinine Urine Chloride 04/03/17 04/03/17 06:22 06:22 WBC RBC 3.03 L Hgb 9.7 L Hct 28.7 L MCV 95 H MCH MCHC RDW 15.9 H Plt Count Lymph % (Auto) [place] % (Auto) [place] # Seg Neutrophils % Seg Neuts % (Manual) Lymphocytes % (Manual) Monocytes % (Manual) Seg Neutrophils # Seg Neutrophils # Man Lymphocytes # (Manual) Monocytes # (Manual) Eosinophils # (Manual) PT INR APTT Heparin Anti-Xa Level POC ABG pH POC ABG pCO2 POC ABG pO2 Sodium Potassium Chloride Carbon Dioxide BUN 23 H Creatinine 3.1 H Glucose 175 H POC Glucose Calcium 8.0 L Phosphorus Magnesium Total Bilirubin AST Total Creatine Kinase CK-MB (CK-2) Total Protein Albumin Urine Creatinine Urine Chloride
[2017-04-03] MEDS: HEPARIN/ 0.45% NACL-25,000 UNIT/500 ML 25,000 UNIT/500 ML BAG IV SCH (10:12)
[2017-04-03] MEDS: NACL 0.9% 1000 ML 1,000 ML IV SCH (10:14)
[2017-04-03] MEDS: VITAMIN B-1 PO SCH (10:15)
[2017-04-03] MEDS: APRESOLINE PO SCH ×3 (10:16→23:57)
[2017-04-03] MEDS: FOLVITE PO SCH (10:16)
[2017-04-03] MEDS: PROTONIX PO SCH (10:16)
--- NOTE | 2017-04-03 12:38 | Progress Note ---
Assessment and Plan Impression: * KATHRIN--oliguric * vanco toxicity vs ATN * HTN * CM ef 40% * Afib with RVR * etoh withdrawal * asp PNA * UTI * Nephrolithiasis Plan: * Patient remains on the ventilator and dialysis dependent * Volume overload much improved. Patient had uneventful dialysis yesterday * Shall plan to dialyze him again tomorrow * Antibiotic therapy as per primary care team * no hydro seen on CT * strict i/os * avoid nephrotoxins * daily lytes and weight * Adjust meds for creatinine clearance less than 10 mL/m Subjective Date of service: 04/03/17 Principal diagnosis: afib, EtOH abuse, morbid obesity, respiratory failure status post extubatio Interval history: Patient remains on the ventilator. Currently on 30% FiO2. Unresponsive. Objective - Vital Signs Vital signs: Vital Signs - 12hr 04/03/17 04/03/17 04/03/17 00:47 01:00 01:30 Temperature Pulse Rate 85 87 Pulse Rate [ 115 H Anterior Bilateral Throughout] Pulse Rate [ From Monitor] Respiratory 12 9 L Rate Respiratory 20 Rate [Anterior Bilateral Throughout] Blood Pressure 107/67 101/68 O2 Sat by Pulse 98 99 Oximetry 04/03/17 04/03/17 04/03/17 02:00 02:30 03:00 Temperature Pulse Rate 85 90 91 H Pulse Rate [ Anterior Bilateral Throughout] Pulse Rate [ From Monitor] Respiratory 12 7 L 15 Rate Respiratory Rate [Anterior Bilateral Throughout] Blood Pressure 125/83 114/86 125/79 O2 Sat by Pulse 100 99 99 Oximetry 04/03/17 04/03/17 04/03/17 03:30 03:54 03:57 Temperature Pulse Rate 89 91 H Pulse Rate [ 85 Anterior Bilateral Throughout] Pulse Rate [ From Monitor] Respiratory 6 L Rate Respiratory 18 Rate [Anterior Bilateral Throughout] Blood Pressure 119/80 113/72 O2 Sat by Pulse 100 98 Oximetry 04/03/17 04/03/17 04/03/17 04:00 04:07 04:30 Temperature 97.2 F L Pulse Rate 86 93 H Pulse Rate [ 93 H Anterior Bilateral Throughout] Pulse Rate [ 86 From Monitor] Respiratory 12 14 Rate Respiratory 18 Rate [Anterior Bilateral Throughout] Blood Pressure 118/81 117/83 O2 Sat by Pulse 99 99 Oximetry 04/03/17 04/03/17 04/03/17 05:00 05:01 05:30 Temperature Pulse Rate 94 H 92 H 90 Pulse Rate [ Anterior Bilateral Throughout] Pulse Rate [ From Monitor] Respiratory 10 L 10 L Rate Respiratory Rate [Anterior Bilateral Throughout] Blood Pressure 109/66 132/87 O2 Sat by Pulse 96 96 Oximetry 04/03/17 04/03/17 04/03/17 05:37 06:00 06:30 Temperature Pulse Rate 93 H 92 H 90 Pulse Rate [ Anterior Bilateral Throughout] Pulse Rate [ From Monitor] Respiratory 13 15 Rate Respiratory Rate [Anterior Bilateral Throughout] Blood Pressure 132/87 133/85 122/80 O2 Sat by Pulse 98 98 Oximetry 04/03/17 04/03/17 04/03/17 07:00 07:30 08:00 Temperature Pulse Rate 94 H 86 87 Pulse Rate [ Anterior Bilateral Throughout] Pulse Rate [ From Monitor] Respiratory 16 18 18 Rate Respiratory Rate [Anterior Bilateral Throughout] Blood Pressure 122/83 107/74 122/88 O2 Sat by Pulse 95 95 96 Oximetry 04/03/17 04/03/17 04/03/17 08:19 08:30 08:34 Temperature 98.7 F Pulse Rate 76 87 Pulse Rate [ 85 Anterior Bilateral Throughout] Pulse Rate [ From Monitor] Respiratory 16 Rate Respiratory 18 Rate [Anterior Bilateral Throughout] Blood Pressure 117/78 117/78 O2 Sat by Pulse 96 96 Oximetry 04/03/17 04/03/17 04/03/17 08:45 09:00 09:30 Temperature Pulse Rate 86 85 Pulse Rate [ 89 Anterior Bilateral Throughout] Pulse Rate [ From Monitor] Respiratory 17 18 Rate Respiratory 17 Rate [Anterior Bilateral Throughout] Blood Pressure 116/75 114/71 O2 Sat by Pulse 96 96 Oximetry 04/03/17 04/03/17 04/03/17 09:45 10:00 10:15 Temperature Pulse Rate 89 90 Pulse Rate [ Anterior Bilateral Throughout] Pulse Rate [ From Monitor] Respiratory 17 Rate Respiratory Rate [Anterior Bilateral Throughout] Blood Pressure 112/71 123/80 O2 Sat by Pulse 95 Oximetry 04/03/17 04/03/17 04/03/17 10:30 11:00 11:30 Temperature Pulse Rate 101 H 105 H 117 H Pulse Rate [ Anterior Bilateral Throughout] Pulse Rate [ From Monitor] Respiratory 18 14 13 Rate Respiratory Rate [Anterior Bilateral Throughout] Blood Pressure 118/73 110/77 128/84 O2 Sat by Pulse 96 94 97 Oximetry 04/03/17 04/03/1717 12:00 12:05 12:15 Temperature 99.1 F Pulse Rate 116 H Pulse Rate [ 108 H 110 H Anterior Bilateral Throughout] Pulse Rate [ From Monitor] Respiratory Rate Respiratory 21 22 Rate [Anterior Bilateral Throughout] Blood Pressure 129/86 O2 Sat by Pulse 96 Oximetry - General Appearance General appearance: well-developed, well-nourished, appears stated age, intubated EENT: PERRL, mucous membranes moist Neck: no JVD, no thyromegaly, no carotid bruit, supple, other (right IJ Vas- Cath in place) Respiratory: Present: Clear to Ascultation Cardiology: irregularly irregular, normal heart rate, S1S2, no murmurs Gastrointestinal: normal, normoactive bowel sounds Integumentary: no rash, other (trace edema) - Lab 04/03/17 06:22 04/03/17 06:22 Most recent lab results Calcium 8.0 mg/dL (8.4-10.2) L 04/03/17 06:22 Phosphorus 4.60 mg/dL (2.5-4.5) H 03/06/17 04:50 Magnesium 1.60 mg/dL (1.7-2.3) L 03/19/17 06:55 Urine Creatinine 86.5 mg/dL (0.1-20.0) H 03/29/17 22:10 Urine Sodium 28 mEq/L 03/29/17 22:10
[2017-04-03] MEDS ORDERED: NACL 0.9% 100 ML IV PRN (12:41)
[2017-04-03] MEDS: MERREM/NS 500 MG/50 ML 500 MG/50 ML BAG IV SCH (13:49)
[2017-04-04] MEDS: NOVOLOG SUB-Q SCH ×4 (00:07→18:34)
[2017-04-04] MEDS: DIPRIVAN 10 MG/ML 1,000 MG/100 ML BOTTLE IV SCH ×2 (00:26→04:02)
[2017-04-04] MEDS: HEPARIN/ 0.45% NACL-25,000 UNIT/500 ML 25,000 UNIT/500 ML BAG IV SCH ×2 (01:42→14:35)
[2017-04-04] MEDS: DUONEB *Not for PRN Use IH SCH ×6 (04:05→23:10)
[2017-04-04 05:32] LABS: ISTAT Base Excess -3; ISTAT HCO3 21.4; ISTAT PCO2 34.3 (35-45); ISTAT PH 7.404 (7.35-7.45); ISTAT PO2 84 (80-105); ISTAT SO2 96; ISTAT TCO2 22
[2017-04-04 06:47] LABS: Hematocrit 31.2 % (35.5-45.6); Mean Corpuscular HGB Conc 32 % (32-34); Mean Corpuscular Hemoglobin 31 pg (28-32); Platelet Count 183 K/mm3 (140-440); Red Cell Distribution Width 16.1 % (13.2-15.2); White Blood Count 11.7 K/mm3 (4.5-11.0)
[2017-04-04 07:00] LABS: Mean Corpuscular Volume 96 fl (84-94)
[2017-04-04 07:27] LABS: BUN/Creatinine Ratio 10.25; Calcium 8.1 mg/dL (8.4-10.2); Chloride 97.6 mmol/L (98-107); Potassium 3.9 mmol/L (3.6-5.0)
[2017-04-04 08:11] LABS: Basophils % (Manual) 0 % (0.0-1.8); Blastocytes % (Manual) 0 %; Eosinophils % (Manual) 0 % (0.0-4.3)
[2017-04-04 08:12] LABS: Diff Status Complete; Platelet Estimate Consistent w Auto; Target Cells Few
[2017-04-04] MEDS: CARDIZEM PO SCH ×3 (08:28→17:02)
[2017-04-04] MEDS: APRESOLINE PO SCH ×4 (08:42→20:57)
[2017-04-04] MEDS: LOPRESSOR PO SCH ×4 (08:43→20:57)
[2017-04-04] MEDS: NACL 0.9% 1000 ML 1,000 ML IV SCH (08:45)
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
--- NOTE | 2017-04-04 09:11 | Progress Note ---
Assessment and Plan Impression: * KATHRIN--oliguric * vanco toxicity vs ATN * HTN * CM ef 40% * Afib with RVR * etoh withdrawal * asp PNA * UTI * Nephrolithiasis * Plan: * Patient remains on the ventilator and dialysis dependent * Volume overload much improved * HD q MWF and prn * uf as tolerated * continue to monitor for renal recovery * Antibiotic therapy as per primary care team * no hydro seen on CT * strict i/os * avoid nephrotoxins * daily lytes and weight * Adjust meds for creatinine clearance less than 10 mL/m Subjective Date of service: 04/04/17 Principal diagnosis: afib, EtOH abuse, morbid obesity, respiratory failure status post extubatio Interval history: resting in bed, events noted Objective - Exam Narrative Exam: GEN: WDWN, NAD, HEENT: NCAT, PERRL, EOMI, OP CLEAR NECK: SUPPLE, NO THYROMEGALY, NO JVD, NO LAD CVS: irregular irregular, NORMAL S1S2 LUNGS/CHEST: scat rhonchi NORMAL CHEST EXPANSION B, GOOD AIR ENTRY B ABD: SOFT NTND, GBS, NO REBOUND OR GUARDING EXT/SKIN: NO SIGNIFICANT EDEMA OR RASH MSK: FROM X 4 EXTREMITIES NEURO: CN 2-12 GROSSLY INTACT, NO FOCAL DEFICITS - Vital Signs Vital signs: Vital Signs - 12hr 04/03/17 04/03/17 04/03/17 21:15 21:30 22:00 Temperature Pulse Rate 118 H 115 H Pulse Rate [ Anterior Bilateral Throughout] Pulse Rate [ 118 H From Monitor] Respiratory 16 15 Rate Respiratory Rate [Anterior Bilateral Throughout] Blood Pressure 132/90 136/86 O2 Sat by Pulse 95 95 97 Oximetry 04/03/17 04/03/17 04/03/17 22:30 23:00 23:30 Temperature Pulse Rate 121 H 120 H 110 H Pulse Rate [ Anterior Bilateral Throughout] Pulse Rate [ From Monitor] Respiratory 12 24 16 Rate Respiratory Rate [Anterior Bilateral Throughout] Blood Pressure 143/98 136/97 145/107 O2 Sat by Pulse 97 98 98 Oximetry 04/03/17 04/03/17 04/03/17 23:55 23:57 23:58 Temperature Pulse Rate 115 H 111 H 114 H Pulse Rate [ 113 H Anterior Bilateral Throughout] Pulse Rate [ From Monitor] Respiratory 13 Rate Respiratory 19 Rate [Anterior Bilateral Throughout] Blood Pressure 145/100 145/100 134/85 O2 Sat by Pulse 98 99 Oximetry 04/04/17 04/04/17 04/04/17 00:00 00:10 00:20 Temperature 97.7 F Pulse Rate 122 H Pulse Rate [ 120 H Anterior Bilateral Throughout] Pulse Rate [ From Monitor] Respiratory 17 Rate Respiratory 19 Rate [Anterior Bilateral Throughout] Blood Pressure 143/95 O2 Sat by Pulse 99 Oximetry 04/04/17 04/04/17 04/04/17 00:30 01:00 01:30 Temperature Pulse Rate 106 H 111 H 126 H Pulse Rate [ Anterior Bilateral Throughout] Pulse Rate [ From Monitor] Respiratory 17 20 18 Rate Respiratory Rate [Anterior Bilateral Throughout] Blood Pressure 138/92 119/82 136/91 O2 Sat by Pulse 99 98 99 Oximetry 04/04/17 04/04/17 04/04/17 02:00 02:30 03:00 Temperature Pulse Rate 112 H 121 H 100 H Pulse Rate [ Anterior Bilateral Throughout] Pulse Rate [ From Monitor] Respiratory 12 16 17 Rate Respiratory Rate [Anterior Bilateral Throughout] Blood Pressure 134/89 129/88 132/83 O2 Sat by Pulse 98 96 95 Oximetry 04/04/17 04/04/17 04/04/17 03:30 04:00 04:05 Temperature 98.4 F Pulse Rate 103 H 110 H Pulse Rate [ 102 H Anterior Bilateral Throughout] Pulse Rate [ From Monitor] Respiratory 18 13 Rate Respiratory 18 Rate [Anterior Bilateral Throughout] Blood Pressure 128/90 144/104 O2 Sat by Pulse 96 97 Oximetry 04/04/17 04/04/17 04/04/17 04:30 05:00 07:53 Temperature 97.3 F L Pulse Rate 117 H 106 H Pulse Rate [ Anterior Bilateral Throughout] Pulse Rate [ From Monitor] Respiratory 11 L 15 Rate Respiratory Rate [Anterior Bilateral Throughout] Blood Pressure 139/95 127/88 O2 Sat by Pulse 97 97 Oximetry - Lab 04/04/17 04:00 04/04/17 04:00 Most recent lab results Calcium 8.1 mg/dL (8.4-10.2) L 04/04/17 04:00 Phosphorus 4.60 mg/dL (2.5-4.5) H 03/06/17 04:50 Magnesium 1.60 mg/dL (1.7-2.3) L 03/19/17 06:55 Urine Creatinine 86.5 mg/dL (0.1-20.0) H 03/29/17 22:10 Urine Sodium 28 mEq/L 03/29/17 22:10
--- NOTE | 2017-04-04 09:24 | XRay Report ---
Portable chest: Followup abnormal chest exam. There is increased opacity at the left lung base partially obscuring the hemidiaphragm. Some mild hazy area of increased density at the right lung base. There may be mild vascular congestion. The heart is slightly enlarged. Endotracheal and nasogastric tubes are in good positions. A right jugular central venous line as well as a right PIC line tip are both in the SVC. Compared to the prior study of April 01 there no significant changes at the left lung base however the haziness on the right does appear increased. No change in the multiple life support tubes. Impressions: Persistent left basilar opacities which could represent any combination of consolidation, effusion, atelectasis. New hazy right opacity that could represent effusion. Mild, stable vascular congestion.
--- NOTE | 2017-04-04 12:04 | Progress Note ---
Assessment and Plan 51 y/o male, noncompliant, with systolic heart failure, admitted with afib with RVR, and possible ETOH abuse, now with recurrent afib with RVR and likely aspiration pneumonia on the right resulting in acute respiratory failure, now with recurrent respiratory failure 1. HD today. 2. HOld on PSV trials, keep PEEP at 8 3. Rate control 4. PRN meds for sedation 5. CXR is stable, may need trach but will attempt repeat extubation soon CCT 31 minutes. Subjective Date of service: 04/04/17 Principal diagnosis: afib, EtOH abuse, morbid obesity, respiratory failure status post extubatio Interval history: No acute events overnight. Currently awake. on HD. PEEP at 8. ABG this am was good. Re-intubated last week secondary to left lung collapse, likely from mucous plugging. No family at bedside. Objective Vital Signs - 12hr 04/04/17 04/04/17 04/04/17 00:10 00:20 00:30 Temperature 97.7 F Pulse Rate 106 H Pulse Rate [ 120 H Anterior Bilateral Throughout] Pulse Rate [ From Monitor] Respiratory 17 Rate Respiratory 19 Rate [Anterior Bilateral Throughout] Blood Pressure 138/92 O2 Sat by Pulse 99 Oximetry O2 Sat by Pulse Oximetry [ Anterior Bilateral Throughout] 04/04/17 04/04/17 04/04/17 01:00 01:30 02:00 Temperature Pulse Rate 111 H 126 H 112 H Pulse Rate [ Anterior Bilateral Throughout] Pulse Rate [ From Monitor] Respiratory 20 18 12 Rate Respiratory Rate [Anterior Bilateral Throughout] Blood Pressure 119/82 136/91 134/89 O2 Sat by Pulse 98 99 98 Oximetry O2 Sat by Pulse Oximetry [ Anterior Bilateral Throughout] 04/04/17 04/04/17 04/04/17 02:30 03:00 03:30 Temperature Pulse Rate 121 H 100 H 103 H Pulse Rate [ Anterior Bilateral Throughout] Pulse Rate [ From Monitor] Respiratory 16 17 18 Rate Respiratory Rate [Anterior Bilateral Throughout] Blood Pressure 129/88 132/83 128/90 O2 Sat by Pulse 96 95 96 Oximetry O2 Sat by Pulse Oximetry [ Anterior Bilateral Throughout] 04/04/17 04/04/17 04/04/17 04:00 04:05 04:30 Temperature 98.4 F Pulse Rate 110 H 117 H Pulse Rate [ 102 H Anterior Bilateral Throughout] Pulse Rate [ From Monitor] Respiratory 13 11 L Rate Respiratory 18 Rate [Anterior Bilateral Throughout] Blood Pressure 144/104 139/95 O2 Sat by Pulse 97 97 Oximetry O2 Sat by Pulse Oximetry [ Anterior Bilateral Throughout] 04/04/17 04/04/17 04/04/17 05:00 07:53 08:00 Temperature 97.3 F L Pulse Rate 106 H Pulse Rate [ Anterior Bilateral Throughout] Pulse Rate [ 106 H From Monitor] Respiratory 15 Rate Respiratory Rate [Anterior Bilateral Throughout] Blood Pressure 127/88 O2 Sat by Pulse 97 97 Oximetry O2 Sat by Pulse Oximetry [ Anterior Bilateral Throughout] 04/04/17 04/04/17 04/04/17 08:14 08:30 09:00 Temperature Pulse Rate 108 H 111 H 115 H Pulse Rate [ Anterior Bilateral Throughout] Pulse Rate [ From Monitor] Respiratory 13 15 18 Rate Respiratory Rate [Anterior Bilateral Throughout] Blood Pressure 132/87 146/96 143/95 O2 Sat by Pulse 97 97 98 Oximetry O2 Sat by Pulse Oximetry [ Anterior Bilateral Throughout] 04/04/17 04/04/17 04/04/17 09:30 09:50 10:00 Temperature 97.8 F Pulse Rate 114 H 115 H 127 H Pulse Rate [ Anterior Bilateral Throughout] Pulse Rate [ From Monitor] Respiratory 16 16 18 Rate Respiratory Rate [Anterior Bilateral Throughout] Blood Pressure 140/101 136/85 135/90 O2 Sat by Pulse 97 96 Oximetry O2 Sat by Pulse 97 Oximetry [ Anterior Bilateral Throughout] 04/04/17 04/04/17 04/04/17 10:15 10:30 10:45 Temperature Pulse Rate 117 H 116 H 120 H Pulse Rate [ Anterior Bilateral Throughout] Pulse Rate [ From Monitor] Respiratory 12 Rate Respiratory Rate [Anterior Bilateral Throughout] Blood Pressure 143/97 138/90 146/99 O2 Sat by Pulse 97 Oximetry O2 Sat by Pulse Oximetry [ Anterior Bilateral Throughout] 04/04/17 04/04/17 04/04/17 11:00 11:15 11:30 Temperature Pulse Rate 127 H 121 H 121 H Pulse Rate [ Anterior Bilateral Throughout] Pulse Rate [ From Monitor] Respiratory 11 L Rate Respiratory Rate [Anterior Bilateral Throughout] Blood Pressure 145/100 141/100 137/96 O2 Sat by Pulse 98 Oximetry O2 Sat by Pulse Oximetry [ Anterior Bilateral Throughout] Constitutional: asleep, other (ETT in position,) Eyes: non-icteric ENT: oropharynx moist Neck: supple, no JVD Effort: mildly labored Ascultation: Right: rales (mostly on the right), Bilateral: clear, diminished breath sounds, wheezes, rhonchi (sporadic) Cardiovascular: irregular rhythm Gastrointestinal: normoactive bowel sounds, soft, non-tender, non-distended, other (obese) Integumentary: normal Extremities: no cyanosis, no edema, pink and warm Neurologic: non-focal exam, pupils equal and round, other Psychiatric: mood appropriate, affect normal, anxious CBC and BMP: 04/04/17 04:00 04/04/17 04:00 ABG, PT/INR, D-dimer: ABG POC ABG pH 7.404 (7.35-7.45) 04/04/17 05:12 POC ABG pCO2 34.3 (35-45) L 04/04/17 05:12 POC ABG pO2 84 (80-105) 04/04/17 05:12 POC ABG HCO3 21.4 04/04/17 05:12 POC ABG Total CO2 22 04/04/17 05:12 POC ABG O2 Sat 96 04/04/17 05:12 PT/INR, D-dimer PT 16.2 Sec. (12.2-14.9) H 03/22/17 08:40 INR 1.31 (0.87-1.13) H 03/22/17 08:40 Abnormal lab findings: Abnormal Labs 02/27/17 02/27/17 02/27/17 03:51 05:41 08:49 WBC RBC Hgb Hct MCV MCH MCHC RDW Plt Count Lymph % (Auto) [place] % (Auto) [place] # Seg Neutrophils % Seg Neuts % (Manual) Lymphocytes % (Manual) Monocytes % (Manual) Seg Neutrophils # Seg Neutrophils # Man Lymphocytes # (Manual) Monocytes # (Manual) Eosinophils # (Manual) PT INR APTT Heparin Anti-Xa Level POC ABG pH POC ABG pCO2 POC ABG pO2 Sodium Potassium Chloride Carbon Dioxide BUN Creatinine Glucose POC Glucose 131 H 139 H Calcium Phosphorus Magnesium Total Bilirubin AST Total Creatine Kinase 171 H CK-MB (CK-2) 5.8 H Total Protein Albumin Urine Creatinine Urine Chloride 02/27/17 02/27/17 02/27/17 13:05 13:08 16:07 WBC RBC Hgb Hct MCV MCH MCHC RDW Plt Count Lymph % (Auto) [place] % (Auto) [place] # Seg Neutrophils % Seg Neuts % (Manual) Lymphocytes % (Manual) Monocytes % (Manual) Seg Neutrophils # Seg Neutrophils # Man Lymphocytes # (Manual) Monocytes # (Manual) Eosinophils # (Manual) PT INR APTT Heparin Anti-Xa Level POC ABG pH POC ABG pCO2 POC ABG pO2 Sodium Potassium Chloride Carbon Dioxide BUN Creatinine Glucose POC Glucose 146 H 138 H Calcium Phosphorus Magnesium Total Bilirubin AST Total Creatine Kinase CK-MB (CK-2) 4.7 H Total Protein Albumin Urine Creatinine Urine Chloride 02/27/17 02/28/17 02/28/17 21:40 03:32 03:32 WBC RBC Hgb 15.9 H Hct 47.6 H MCV 100 H MCH 34 H MCHC RDW 15.4 H Plt Count Lymph % (Auto) [place] % (Auto) [place] # Seg Neutrophils % Seg Neuts % (Manual) Lymphocytes % (Manual) Monocytes % (Manual) Seg Neutrophils # Seg Neutrophils # Man Lymphocytes # (Manual) Monocytes # (Manual) Eosinophils # (Manual) PT INR APTT Heparin Anti-Xa Level POC ABG pH POC ABG pCO2 POC ABG pO2 Sodium Potassium Chloride 95.0 L Carbon Dioxide BUN 8 L Creatinine 0.6 L Glucose 126 H POC Glucose 140 H Calcium Phosphorus Magnesium 1.60 L Total Bilirubin AST Total Creatine Kinase CK-MB (CK-2) Total Protein Albumin Urine Creatinine Urine Chloride 02/28/17 02/28/17 02/28/17 07:55 11:57 15:40 WBC RBC Hgb Hct MCV MCH MCHC RDW Plt Count Lymph % (Auto) [place] % (Auto) [place] # Seg Neutrophils % Seg Neuts % (Manual) Lymphocytes % (Manual) Monocytes % (Manual) Seg Neutrophils # Seg Neutrophils # Man Lymphocytes # (Manual) Monocytes # (Manual) Eosinophils # (Manual) PT INR APTT Heparin Anti-Xa Level POC ABG pH POC ABG pCO2 POC ABG pO2 Sodium Potassium Chloride Carbon Dioxide BUN Creatinine Glucose POC Glucose 134 H 174 H 158 H Calcium Phosphorus Magnesium Total Bilirubin AST Total Creatine Kinase CK-MB (CK-2) Total Protein Albumin Urine Creatinine Urine Chloride 02/28/17 03/01/17 03/01/17 21:51 07:42 10:41 WBC RBC Hgb Hct MCV MCH MCHC RDW Plt Count Lymph % (Auto) [place] % (Auto) [place] # Seg Neutrophils % Seg Neuts % (Manual) Lymphocytes % (Manual) Monocytes % (Manual) Seg Neutrophils # Seg Neutrophils # Man Lymphocytes # (Manual) Monocytes # (Manual) Eosinophils # (Manual) PT INR APTT Heparin Anti-Xa Level POC ABG pH POC ABG pCO2 POC ABG pO2 Sodium Potassium Chloride Carbon Dioxide BUN Creatinine Glucose POC Glucose 127 H 146 H 176 H Calcium Phosphorus Magnesium Total Bilirubin AST Total Creatine Kinase CK-MB (CK-2) Total Protein Albumin Urine Creatinine Urine Chloride 03/01/17 03/01/17 03/02/17 15:37 23:35 08:11 WBC RBC Hgb Hct MCV MCH MCHC RDW Plt Count Lymph % (Auto) [place] % (Auto) [place] # Seg Neutrophils % Seg Neuts % (Manual) Lymphocytes % (Manual) Monocytes % (Manual) Seg Neutrophils # Seg Neutrophils # Man Lymphocytes # (Manual) Monocytes # (Manual) Eosinophils # (Manual) PT INR APTT Heparin Anti-Xa Level POC ABG pH POC ABG pCO2 POC ABG pO2 Sodium Potassium Chloride Carbon Dioxide BUN Creatinine Glucose POC Glucose 158 H 139 H 127 H Calcium Phosphorus Magnesium Total Bilirubin AST Total Creatine Kinase CK-MB (CK-2) Total Protein Albumin Urine Creatinine Urine Chloride 03/02/17 03/02/17 03/02/17 09:12 12:03 12:37 WBC 17.9 H RBC Hgb 16.3 H Hct 49.3 H MCV 101 H MCH 33 H MCHC RDW Plt Count Lymph % (Auto) 10.6 L [place] % (Auto) 13.4 H [place] # 2.4 H Seg Neutrophils % 75.2 H Seg Neuts % (Manual) Lymphocytes % (Manual) Monocytes % (Manual) Seg Neutrophils # 13.5 H Seg Neutrophils # Man Lymphocytes # (Manual) Monocytes # (Manual) Eosinophils # (Manual) PT INR APTT Heparin Anti-Xa Level POC ABG pH POC ABG pCO2 POC ABG pO2 Sodium 135 L Potassium Chloride 90.3 L Carbon Dioxide 32 H BUN Creatinine 0.6 L Glucose 124 H POC Glucose 145 H Calcium Phosphorus Magnesium Total Bilirubin AST Total Creatine Kinase CK-MB (CK-2) Total Protein Albumin Urine Creatinine Urine Chloride 03/02/17 03/02/17 03/03/17 16:09 22:41 03:59 WBC 14.7 H RBC Hgb Hct MCV 100 H MCH 33 H MCHC RDW Plt Count Lymph % (Auto) 10.9 L [place] % (Auto) 14.8 H [place] # 2.2 H Seg Neutrophils % 73.6 H Seg Neuts % (Manual) Lymphocytes % (Manual) Monocytes % (Manual) Seg Neutrophils # 10.8 H Seg Neutrophils # Man Lymphocytes # (Manual) Monocytes # (Manual) Eosinophils # (Manual) PT INR APTT Heparin Anti-Xa Level POC ABG pH POC ABG pCO2 POC ABG pO2 Sodium Potassium Chloride Carbon Dioxide BUN Creatinine Glucose POC Glucose 141 H 127 H Calcium Phosphorus Magnesium Total Bilirubin AST Total Creatine Kinase CK-MB (CK-2) Total Protein Albumin Urine Creatinine Urine Chloride 03/03/17 03/03/17 03/03/17 04:07 09:19 11:33 WBC RBC Hgb Hct MCV MCH MCHC RDW Plt Count Lymph % (Auto) [place] % (Auto) [place] # Seg Neutrophils % Seg Neuts % (Manual) Lymphocytes % (Manual) Monocytes % (Manual) Seg Neutrophils # Seg Neutrophils # Man Lymphocytes # (Manual) Monocytes # (Manual) Eosinophils # (Manual) PT INR APTT Heparin Anti-Xa Level POC ABG pH POC ABG pCO2 POC ABG pO2 Sodium Potassium 3.1 L D Chloride 91.1 L Carbon Dioxide BUN Creatinine 0.7 L Glucose 136 H POC Glucose 123 H 153 H Calcium Phosphorus Magnesium Total Bilirubin AST Total Creatine Kinase CK-MB (CK-2) Total Protein Albumin Urine Creatinine Urine Chloride 03/03/17 03/04/17 03/04/17 15:46 05:58 06:04 WBC 11.4 H RBC Hgb Hct 46.0 H MCV 101 H MCH 33 H MCHC RDW Plt Count Lymph % (Auto) [place] % (Auto) [place] # Seg Neutrophils % Seg Neuts % (Manual) 71.0 H Lymphocytes % (Manual) 13.0 L Monocytes % (Manual) 13.0 H Seg Neutrophils # Seg Neutrophils # Man 8.1 H Lymphocytes # (Manual) Monocytes # (Manual) 1.5 H Eosinophils # (Manual) PT INR APTT Heparin Anti-Xa Level POC ABG pH POC ABG pCO2 POC ABG pO2 Sodium Potassium 3.3 L Chloride 92.2 L Carbon Dioxide 33 H BUN Creatinine 0.6 L Glucose 133 H POC Glucose 131 H Calcium Phosphorus Magnesium Total Bilirubin AST Total Creatine Kinase CK-MB (CK-2) Total Protein Albumin Urine Creatinine Urine Chloride 03/04/17 03/04/17 03/04/17 07:54 11:24 16:00 WBC RBC Hgb Hct MCV MCH MCHC RDW Plt Count Lymph % (Auto) [place] % (Auto) [place] # Seg Neutrophils % Seg Neuts % (Manual) Lymphocytes % (Manual) Monocytes % (Manual) Seg Neutrophils # Seg Neutrophils # Man Lymphocytes # (Manual) Monocytes # (Manual) Eosinophils # (Manual) PT INR APTT Heparin Anti-Xa Level POC ABG pH POC ABG pCO2 POC ABG pO2 Sodium Potassium Chloride Carbon Dioxide BUN Creatinine Glucose POC Glucose 131 H 134 H 116 H Calcium Phosphorus Magnesium Total Bilirubin AST Total Creatine Kinase CK-MB (CK-2) Total Protein Albumin Urine Creatinine Urine Chloride 03/05/17 03/05/17 03/05/17 00:39 07:03 07:03 WBC 11.4 H RBC Hgb 15.4 H Hct 46.3 H MCV 100 H MCH 33 H MCHC RDW Plt Count Lymph % (Auto) [place] % (Auto) [place] # Seg Neutrophils % Seg Neuts % (Manual) Lymphocytes % (Manual) Monocytes % (Manual) 20.0 H Seg Neutrophils # Seg Neutrophils # Man Lymphocytes # (Manual) Monocytes # (Manual) 2.3 H Eosinophils # (Manual) PT INR APTT Heparin Anti-Xa Level POC ABG pH POC ABG pCO2 POC ABG pO2 Sodium Potassium 3.3 L Chloride 95.2 L Carbon Dioxide 31 H BUN Creatinine 0.6 L Glucose 137 H POC Glucose 116 H Calcium Phosphorus Magnesium Total Bilirubin AST Total Creatine Kinase CK-MB (CK-2) Total Protein Albumin Urine Creatinine Urine Chloride 03/05/17 03/05/17 03/05/17 08:05 12:15 16:07 WBC RBC Hgb Hct MCV MCH MCHC RDW Plt Count Lymph % (Auto) [place] % (Auto) [place] # Seg Neutrophils % Seg Neuts % (Manual) Lymphocytes % (Manual) Monocytes % (Manual) Seg Neutrophils # Seg Neutrophils # Man Lymphocytes # (Manual) Monocytes # (Manual) Eosinophils # (Manual) PT INR APTT Heparin Anti-Xa Level POC ABG pH POC ABG pCO2 POC ABG pO2 Sodium Potassium Chloride Carbon Dioxide BUN Creatinine Glucose POC Glucose 134 H 150 H 113 H Calcium Phosphorus Magnesium Total Bilirubin AST Total Creatine Kinase CK-MB (CK-2) Total Protein Albumin Urine Creatinine Urine Chloride 03/06/17 03/06/17 03/06/17 04:45 04:50 11:50 WBC 11.8 H RBC Hgb 15.7 H Hct 47.1 H MCV 98 H MCH 33 H MCHC RDW Plt Count Lymph % (Auto) [place] % (Auto) [place] # Seg Neutrophils % Seg Neuts % (Manual) Lymphocytes % (Manual) 13.0 L Monocytes % (Manual) 17.0 H Seg Neutrophils # Seg Neutrophils # Man Lymphocytes # (Manual) Monocytes # (Manual) 2.0 H Eosinophils # (Manual) PT INR APTT Heparin Anti-Xa Level POC ABG pH POC ABG pCO2 POC ABG pO2 Sodium Potassium 3.2 L Chloride 94.9 L Carbon Dioxide 31 H BUN Creatinine 0.6 L Glucose 125 H POC Glucose 124 H Calcium Phosphorus 4.60 H Magnesium Total Bilirubin AST Total Creatine Kinase CK-MB (CK-2) Total Protein Albumin Urine Creatinine Urine Chloride 03/06/17 03/06/17 03/07/17 15:43 22:07 04:30 WBC RBC Hgb Hct MCV MCH MCHC RDW Plt Count Lymph % (Auto) [place] % (Auto) [place] # Seg Neutrophils % Seg Neuts % (Manual) Lymphocytes % (Manual) Monocytes % (Manual) Seg Neutrophils # Seg Neutrophils # Man Lymphocytes # (Manual) Monocytes # (Manual) Eosinophils # (Manual) PT INR APTT Heparin Anti-Xa Level POC ABG pH POC ABG pCO2 POC ABG pO2 Sodium Potassium 3.4 L Chloride 95.1 L Carbon Dioxide BUN Creatinine 0.6 L Glucose 129 H POC Glucose 121 H 109 H Calcium Phosphorus Magnesium Total Bilirubin AST Total Creatine Kinase CK-MB (CK-2) Total Protein Albumin Urine Creatinine Urine Chloride 03/07/17 03/07/17 03/07/17 04:37 12:02 15:03 WBC 11.3 H RBC Hgb Hct MCV 99 H MCH 34 H MCHC RDW Plt Count Lymph % (Auto) [place] % (Auto) 14.6 H [place] # 1.6 H Seg Neutrophils % Seg Neuts % (Manual) Lymphocytes % (Manual) Monocytes % (Manual) Seg Neutrophils # Seg Neutrophils # Man Lymphocytes # (Manual) Monocytes # (Manual) Eosinophils # (Manual) PT INR APTT Heparin Anti-Xa Level POC ABG pH POC ABG pCO2 POC ABG pO2 Sodium Potassium Chloride Carbon Dioxide BUN Creatinine Glucose POC Glucose 126 H 108 H Calcium Phosphorus Magnesium Total Bilirubin AST Total Creatine Kinase CK-MB (CK-2) Total Protein Albumin Urine Creatinine Urine Chloride 03/08/17 03/08/17 03/08/17 04:58 04:58 08:22 WBC RBC Hgb 16.4 H Hct 49.3 H MCV 99 H MCH 33 H MCHC RDW Plt Count Lymph % (Auto) [place] % (Auto) 12.1 H [place] # 1.2 H Seg Neutrophils % 71.4 H Seg Neuts % (Manual) Lymphocytes % (Manual) Monocytes % (Manual) Seg Neutrophils # Seg Neutrophils # Man Lymphocytes # (Manual) Monocytes # (Manual) Eosinophils # (Manual) PT INR APTT Heparin Anti-Xa Level POC ABG pH POC ABG pCO2 POC ABG pO2 Sodium 136 L Potassium Chloride 93.7 L Carbon Dioxide BUN Creatinine 0.5 L Glucose 127 H POC Glucose 106 H Calcium Phosphorus Magnesium Total Bilirubin AST 50 H Total Creatine Kinase CK-MB (CK-2) Total Protein Albumin 2.7 L Urine Creatinine Urine Chloride 03/08/17 03/08/17 03/09/17 12:14 17:50 05:26 WBC 11.8 H RBC Hgb 16.3 H Hct 49.1 H MCV 98 H MCH 33 H MCHC RDW Plt Count Lymph % (Auto) [place] % (Auto) 10.8 H [place] # 1.3 H Seg Neutrophils % 71.8 H Seg Neuts % (Manual) Lymphocytes % (Manual) Monocytes % (Manual) Seg Neutrophils # 8.4 H Seg Neutrophils # Man Lymphocytes # (Manual) Monocytes # (Manual) Eosinophils # (Manual) PT INR APTT Heparin Anti-Xa Level POC ABG pH POC ABG pCO2 POC ABG pO2 Sodium Potassium Chloride Carbon Dioxide BUN Creatinine Glucose POC Glucose 115 H 117 H Calcium Phosphorus Magnesium Total Bilirubin AST Total Creatine Kinase CK-MB (CK-2) Total Protein Albumin Urine Creatinine Urine Chloride 03/09/17 03/09/17 03/09/17 05:26 12:39 16:19 WBC RBC Hgb Hct MCV MCH MCHC RDW Plt Count Lymph % (Auto) [place] % (Auto) [place] # Seg Neutrophils % Seg Neuts % (Manual) Lymphocytes % (Manual) Monocytes % (Manual) Seg Neutrophils # Seg Neutrophils # Man Lymphocytes # (Manual) Monocytes # (Manual) Eosinophils # (Manual) PT INR APTT Heparin Anti-Xa Level POC ABG pH POC ABG pCO2 POC ABG pO2 Sodium Potassium Chloride 94.7 L Carbon Dioxide BUN Creatinine 0.7 L Glucose 115 H POC Glucose 111 H 116 H Calcium Phosphorus Magnesium Total Bilirubin AST Total Creatine Kinase CK-MB (CK-2) Total Protein Albumin Urine Creatinine Urine Chloride 03/09/17 03/10/17 03/10/17 22:48 08:27 11:46 WBC RBC Hgb Hct MCV MCH MCHC RDW Plt Count Lymph % (Auto) [place] % (Auto) [place] # Seg Neutrophils % Seg Neuts % (Manual) Lymphocytes % (Manual) Monocytes % (Manual) Seg Neutrophils # Seg Neutrophils # Man Lymphocytes # (Manual) Monocytes # (Manual) Eosinophils # (Manual) PT INR APTT Heparin Anti-Xa Level POC ABG pH POC ABG pCO2 POC ABG pO2 Sodium Potassium Chloride Carbon Dioxide BUN Creatinine Glucose POC Glucose 106 H 107 H 116 H Calcium Phosphorus Magnesium Total Bilirubin AST Total Creatine Kinase CK-MB (CK-2) Total Protein Albumin Urine Creatinine Urine Chloride 03/10/17 03/10/17 03/11/17 17:01 21:46 08:10 WBC RBC Hgb Hct MCV MCH MCHC RDW Plt Count Lymph % (Auto) [place] % (Auto) [place] # Seg Neutrophils % Seg Neuts % (Manual) Lymphocytes % (Manual) Monocytes % (Manual) Seg Neutrophils # Seg Neutrophils # Man Lymphocytes # (Manual) Monocytes # (Manual) Eosinophils # (Manual) PT INR APTT Heparin Anti-Xa Level POC ABG pH POC ABG pCO2 POC ABG pO2 Sodium Potassium Chloride Carbon Dioxide BUN Creatinine Glucose POC Glucose 115 H 135 H 109 H Calcium Phosphorus Magnesium Total Bilirubin AST Total Creatine Kinase CK-MB (CK-2) Total Protein Albumin Urine Creatinine Urine Chloride 03/11/17 03/11/17 03/11/17 12:12 17:45 22:14 WBC RBC Hgb Hct MCV MCH MCHC RDW Plt Count Lymph % (Auto) [place] % (Auto) [place] # Seg Neutrophils % Seg Neuts % (Manual) Lymphocytes % (Manual) Monocytes % (Manual) Seg Neutrophils # Seg Neutrophils # Man Lymphocytes # (Manual) Monocytes # (Manual) Eosinophils # (Manual) PT INR APTT Heparin Anti-Xa Level POC ABG pH POC ABG pCO2 POC ABG pO2 Sodium Potassium Chloride Carbon Dioxide BUN Creatinine Glucose POC Glucose 136 H 126 H 132 H Calcium Phosphorus Magnesium Total Bilirubin AST Total Creatine Kinase CK-MB (CK-2) Total Protein Albumin Urine Creatinine Urine Chloride 03/12/17 03/12/17 03/12/17 08:44 08:44 12:56 WBC 14.9 H RBC 5.04 H Hgb 16.1 H Hct 48.8 H MCV 97 H MCH MCHC RDW Plt Count Lymph % (Auto) 11.7 L [place] % (Auto) 11.6 H [place] # 1.7 H Seg Neutrophils % 75.5 H Seg Neuts % (Manual) Lymphocytes % (Manual) Monocytes % (Manual) Seg Neutrophils # 11.2 H Seg Neutrophils # Man Lymphocytes # (Manual) Monocytes # (Manual) Eosinophils # (Manual) PT INR APTT Heparin Anti-Xa Level POC ABG pH POC ABG pCO2 POC ABG pO2 Sodium Potassium 3.2 L Chloride 93.4 L Carbon Dioxide BUN Creatinine 0.6 L Glucose 121 H POC Glucose 129 H Calcium Phosphorus Magnesium Total Bilirubin 1.30 H AST Total Creatine Kinase CK-MB (CK-2) Total Protein Albumin 3.2 L Urine Creatinine Urine Chloride 03/12/17 03/13/17 03/13/17 17:13 09:05 11:36 WBC RBC Hgb Hct MCV MCH MCHC RDW Plt Count Lymph % (Auto) [place] % (Auto) [place] # Seg Neutrophils % Seg Neuts % (Manual) Lymphocytes % (Manual) Monocytes % (Manual) Seg Neutrophils # Seg Neutrophils # Man Lymphocytes # (Manual) Monocytes # (Manual) Eosinophils # (Manual) PT INR APTT Heparin Anti-Xa Level POC ABG pH POC ABG pCO2 POC ABG pO2 Sodium Potassium Chloride Carbon Dioxide BUN Creatinine Glucose POC Glucose 161 H 110 H 126 H Calcium Phosphorus Magnesium Total Bilirubin AST Total Creatine Kinase CK-MB (CK-2) Total Protein Albumin Urine Creatinine Urine Chloride 03/13/17 03/13/17 03/14/17 16:17 21:43 08:40 WBC RBC Hgb Hct MCV MCH MCHC RDW Plt Count Lymph % (Auto) [place] % (Auto) [place] # Seg Neutrophils % Seg Neuts % (Manual) Lymphocytes % (Manual) Monocytes % (Manual) Seg Neutrophils # Seg Neutrophils # Man Lymphocytes # (Manual) Monocytes # (Manual) Eosinophils # (Manual) PT INR APTT Heparin Anti-Xa Level POC ABG pH POC ABG pCO2 POC ABG pO2 Sodium Potassium Chloride Carbon Dioxide BUN Creatinine Glucose POC Glucose 126 H 115 H 106 H Calcium Phosphorus Magnesium Total Bilirubin AST Total Creatine Kinase CK-MB (CK-2) Total Protein Albumin Urine Creatinine Urine Chloride 03/14/17 03/14/17 03/14/17 12:01 17:39 20:30 WBC RBC Hgb Hct MCV MCH MCHC RDW Plt Count Lymph % (Auto) [place] % (Auto) [place] # Seg Neutrophils % Seg Neuts % (Manual) Lymphocytes % (Manual) Monocytes % (Manual) Seg Neutrophils # Seg Neutrophils # Man Lymphocytes # (Manual) Monocytes # (Manual) Eosinophils # (Manual) PT INR APTT Heparin Anti-Xa Level POC ABG pH POC ABG pCO2 POC ABG pO2 Sodium Potassium Chloride Carbon Dioxide BUN Creatinine Glucose POC Glucose 116 H 192 H 122 H Calcium Phosphorus Magnesium Total Bilirubin AST Total Creatine Kinase CK-MB (CK-2) Total Protein Albumin Urine Creatinine Urine Chloride 03/15/17 03/15/17 03/15/17 01:12 06:49 08:46 WBC 23.9 H RBC Hgb 16.1 H Hct 49.4 H MCV 100 H D MCH 33 H MCHC RDW Plt Count Lymph % (Auto) [place] % (Auto) [place] # Seg Neutrophils % Seg Neuts % (Manual) 92.0 H Lymphocytes % (Manual) 4.0 L Monocytes % (Manual) Seg Neutrophils # Seg Neutrophils # Man 22.0 H Lymphocytes # (Manual) 1.0 L Monocytes # (Manual) 1.0 H Eosinophils # (Manual) PT INR APTT Heparin Anti-Xa Level POC ABG pH POC ABG pCO2 POC ABG pO2 Sodium Potassium Chloride 91.0 L Carbon Dioxide 33 H BUN 45 H Creatinine Glucose 160 H POC Glucose 147 H Calcium Phosphorus Magnesium Total Bilirubin AST 41 H Total Creatine Kinase CK-MB (CK-2) Total Protein Albumin 3.0 L Urine Creatinine Urine Chloride 03/15/17 03/15/17 03/15/17 12:11 16:00 20:51 WBC RBC Hgb Hct MCV MCH MCHC RDW Plt Count Lymph % (Auto) [place] % (Auto) [place] # Seg Neutrophils % Seg Neuts % (Manual) Lymphocytes % (Manual) Monocytes % (Manual) Seg Neutrophils # Seg Neutrophils # Man Lymphocytes # (Manual) Monocytes # (Manual) Eosinophils # (Manual) PT INR APTT Heparin Anti-Xa Level POC ABG pH POC ABG pCO2 POC ABG pO2 Sodium Potassium Chloride Carbon Dioxide BUN Creatinine Glucose POC Glucose 144 H 134 H 148 H Calcium Phosphorus Magnesium Total Bilirubin AST Total Creatine Kinase CK-MB (CK-2) Total Protein Albumin Urine Creatinine Urine Chloride 03/16/17 03/16/17 03/16/17 05:59 06:02 09:15 WBC 20.9 H RBC Hgb Hct 45.8 H MCV 99 H MCH 33 H MCHC RDW Plt Count Lymph % (Auto) [place] % (Auto) [place] # Seg Neutrophils % Seg Neuts % (Manual) 92.0 H Lymphocytes % (Manual) 4.0 L Monocytes % (Manual) Seg Neutrophils # Seg Neutrophils # Man 19.2 H Lymphocytes # (Manual) 0.8 L Monocytes # (Manual) Eosinophils # (Manual) PT INR APTT Heparin Anti-Xa Level POC ABG pH POC ABG pCO2 POC ABG pO2 Sodium Potassium Chloride 92.3 L Carbon Dioxide 34 H BUN 44 H Creatinine Glucose 150 H POC Glucose 127 H Calcium Phosphorus Magnesium Total Bilirubin AST Total Creatine Kinase CK-MB (CK-2) Total Protein Albumin Urine Creatinine Urine Chloride 03/16/17 03/16/17 03/17/17 11:59 18:08 07:06 WBC RBC Hgb Hct MCV MCH MCHC RDW Plt Count Lymph % (Auto) [place] % (Auto) [place] # Seg Neutrophils % Seg Neuts % (Manual) Lymphocytes % (Manual) Monocytes % (Manual) Seg Neutrophils # Seg Neutrophils # Man Lymphocytes # (Manual) Monocytes # (Manual) Eosinophils # (Manual) PT INR APTT Heparin Anti-Xa Level POC ABG pH POC ABG pCO2 POC ABG pO2 Sodium Potassium Chloride 93.3 L Carbon Dioxide 35 H BUN 31 H Creatinine Glucose 132 H POC Glucose 147 H 138 H Calcium Phosphorus Magnesium Total Bilirubin AST Total Creatine Kinase CK-MB (CK-2) Total Protein Albumin Urine Creatinine Urine Chloride 03/17/17 03/17/17 03/17/17 07:06 07:14 12:35 WBC 16.6 H RBC Hgb 15.6 H Hct 47.5 H MCV 99 H MCH 33 H MCHC RDW Plt Count Lymph % (Auto) 8.4 L [place] % (Auto) 8.1 H [place] # 1.3 H Seg Neutrophils % 81.8 H Seg Neuts % (Manual) Lymphocytes % (Manual) Monocytes % (Manual) Seg Neutrophils # 13.6 H Seg Neutrophils # Man Lymphocytes # (Manual) Monocytes # (Manual) Eosinophils # (Manual) PT INR APTT Heparin Anti-Xa Level POC ABG pH POC ABG pCO2 POC ABG pO2 Sodium Potassium Chloride Carbon Dioxide BUN Creatinine Glucose POC Glucose 119 H 132 H Calcium Phosphorus Magnesium Total Bilirubin AST Total Creatine Kinase CK-MB (CK-2) Total Protein Albumin Urine Creatinine Urine Chloride 03/18/17 03/18/17 03/18/17 05:05 06:15 06:15 WBC 15.8 H RBC Hgb 16.5 H Hct 49.3 H MCV 99 H MCH 33 H MCHC RDW Plt Count Lymph % (Auto) [place] % (Auto) [place] # Seg Neutrophils % Seg Neuts % (Manual) 88.0 H Lymphocytes % (Manual) 2.0 L Monocytes % (Manual) 8.0 H Seg Neutrophils # Seg Neutrophils # Man 13.9 H Lymphocytes # (Manual) 0.3 L Monocytes # (Manual) 1.3 H Eosinophils # (Manual) PT INR APTT Heparin Anti-Xa Level POC ABG pH POC ABG pCO2 72.9 H POC ABG pO2 168 H Sodium 147 H Potassium 3.5 L Chloride 95.3 L Carbon Dioxide 37 H BUN 29 H Creatinine Glucose 155 H POC Glucose Calcium Phosphorus Magnesium Total Bilirubin AST Total Creatine Kinase CK-MB (CK-2) Total Protein Albumin Urine Creatinine Urine Chloride 03/18/17 03/18/17 03/18/17 08:27 11:24 11:31 WBC RBC Hgb Hct MCV MCH MCHC RDW Plt Count Lymph % (Auto) [place] % (Auto) [place] # Seg Neutrophils % Seg Neuts % (Manual) Lymphocytes % (Manual) Monocytes % (Manual) Seg Neutrophils # Seg Neutrophils # Man Lymphocytes # (Manual) Monocytes # (Manual) Eosinophils # (Manual) PT INR APTT Heparin Anti-Xa Level POC ABG pH 7.530 H POC ABG pCO2 POC ABG pO2 60 L Sodium Potassium Chloride Carbon Dioxide BUN Creatinine Glucose POC Glucose 123 H 176 H Calcium Phosphorus Magnesium Total Bilirubin AST Total Creatine Kinase CK-MB (CK-2) Total Protein Albumin Urine Creatinine Urine Chloride 03/18/17 03/18/17 03/18/17 14:10 15:24 17:23 WBC RBC Hgb 15.4 H Hct 46.4 H MCV MCH MCHC RDW Plt Count Lymph % (Auto) [place] % (Auto) [place] # Seg Neutrophils % Seg Neuts % (Manual) Lymphocytes % (Manual) Monocytes % (Manual) Seg Neutrophils # Seg Neutrophils # Man Lymphocytes # (Manual) Monocytes # (Manual) Eosinophils # (Manual) PT INR APTT Heparin Anti-Xa Level POC ABG pH POC ABG pCO2 POC ABG pO2 Sodium Potassium Chloride 94.5 L Carbon Dioxide 33 H BUN 33 H Creatinine 1.6 H Glucose 241 H POC Glucose 244 H Calcium Phosphorus Magnesium Total Bilirubin AST Total Creatine Kinase CK-MB (CK-2) Total Protein Albumin 3.0 L Urine Creatinine Urine Chloride 03/18/17 03/18/17 03/19/17 17:23 21:33 03:54 WBC 25.4 H RBC Hgb Hct MCV 98 H MCH MCHC RDW Plt Count Lymph % (Auto) [place] % (Auto) [place] # Seg Neutrophils % Seg Neuts % (Manual) 83.0 H Lymphocytes % (Manual) 4.5 L Monocytes % (Manual) 8.0 H Seg Neutrophils # Seg Neutrophils # Man 21.1 H Lymphocytes # (Manual) 1.1 L Monocytes # (Manual) 2.0 H Eosinophils # (Manual) PT 17.1 H INR 1.40 H APTT Heparin Anti-Xa Level POC ABG pH POC ABG pCO2 POC ABG pO2 Sodium Potassium Chloride Carbon Dioxide BUN Creatinine Glucose POC Glucose 164 H Calcium Phosphorus Magnesium Total Bilirubin AST Total Creatine Kinase CK-MB (CK-2) Total Protein Albumin Urine Creatinine Urine Chloride 03/19/17 03/19/17 03/19/17 03:54 06:55 06:55 WBC RBC Hgb Hct MCV MCH MCHC RDW Plt Count Lymph % (Auto) [place] % (Auto) [place] # Seg Neutrophils % Seg Neuts % (Manual) Lymphocytes % (Manual) Monocytes % (Manual) Seg Neutrophils # Seg Neutrophils # Man Lymphocytes # (Manual) Monocytes # (Manual) Eosinophils # (Manual) PT INR APTT Heparin Anti-Xa Level 0.29 L POC ABG pH POC ABG pCO2 POC ABG pO2 Sodium 146 H Potassium 3.4 L Chloride 97.8 L Carbon Dioxide 33 H BUN 30 H Creatinine Glucose 134 H POC Glucose Calcium Phosphorus Magnesium 1.60 L Total Bilirubin AST Total Creatine Kinase CK-MB (CK-2) Total Protein Albumin Urine Creatinine Urine Chloride 03/19/17 03/19/17 03/19/17 08:01 12:56 14:54 WBC RBC Hgb Hct MCV MCH MCHC RDW Plt Count Lymph % (Auto) [place] % (Auto) [place] # Seg Neutrophils % Seg Neuts % (Manual) Lymphocytes % (Manual) Monocytes % (Manual) Seg Neutrophils # Seg Neutrophils # Man Lymphocytes # (Manual) Monocytes # (Manual) Eosinophils # (Manual) PT INR APTT Heparin Anti-Xa Level POC ABG pH POC ABG pCO2 57.8 H POC ABG pO2 71 L Sodium Potassium Chloride Carbon Dioxide BUN Creatinine Glucose POC Glucose 139 H 167 H Calcium Phosphorus Magnesium Total Bilirubin AST Total Creatine Kinase CK-MB (CK-2) Total Protein Albumin Urine Creatinine Urine Chloride 03/19/17 03/19/17 03/20/17 15:53 21:04 03:36 WBC RBC Hgb 15.3 H Hct 48.1 H MCV MCH MCHC RDW Plt Count Lymph % (Auto) [place] % (Auto) [place] # Seg Neutrophils % Seg Neuts % (Manual) Lymphocytes % (Manual) Monocytes % (Manual) Seg Neutrophils # Seg Neutrophils # Man Lymphocytes # (Manual) Monocytes # (Manual) Eosinophils # (Manual) PT INR APTT Heparin Anti-Xa Level POC ABG pH POC ABG pCO2 POC ABG pO2 Sodium Potassium Chloride Carbon Dioxide BUN Creatinine Glucose POC Glucose 172 H 159 H Calcium Phosphorus Magnesium Total Bilirubin AST Total Creatine Kinase CK-MB (CK-2) Total Protein Albumin Urine Creatinine Urine Chloride 03/20/17 03/20/17 03/20/17 07:45 12:02 14:07 WBC RBC Hgb Hct MCV MCH MCHC RDW Plt Count Lymph % (Auto) [place] % (Auto) [place] # Seg Neutrophils % Seg Neuts % (Manual) Lymphocytes % (Manual) Monocytes % (Manual) Seg Neutrophils # Seg Neutrophils # Man Lymphocytes # (Manual) Monocytes # (Manual) Eosinophils # (Manual) PT INR APTT Heparin Anti-Xa Level POC ABG pH 7.312 L POC ABG pCO2 68.3 H POC ABG pO2 47 L Sodium Potassium Chloride Carbon Dioxide BUN Creatinine Glucose POC Glucose 160 H 142 H Calcium Phosphorus Magnesium Total Bilirubin AST Total Creatine Kinase CK-MB (CK-2) Total Protein Albumin Urine Creatinine Urine Chloride 03/20/17 03/20/17 03/20/17 15:57 15:59 19:50 WBC RBC Hgb Hct MCV MCH MCHC RDW Plt Count Lymph % (Auto) [place] % (Auto) [place] # Seg Neutrophils % Seg Neuts % (Manual) Lymphocytes % (Manual) Monocytes % (Manual) Seg Neutrophils # Seg Neutrophils # Man Lymphocytes # (Manual) Monocytes # (Manual) Eosinophils # (Manual) PT INR APTT Heparin Anti-Xa Level POC ABG pH 7.214 L POC ABG pCO2 82.8 H 58.7 H POC ABG pO2 69 L Sodium Potassium Chloride Carbon Dioxide BUN Creatinine Glucose POC Glucose 149 H Calcium Phosphorus Magnesium Total Bilirubin AST Total Creatine Kinase CK-MB (CK-2) Total Protein Albumin Urine Creatinine Urine Chloride 03/20/17 03/20/17 03/21/17 21:19 23:34 04:18 WBC RBC Hgb Hct MCV MCH MCHC RDW Plt Count Lymph % (Auto) [place] % (Auto) [place] # Seg Neutrophils % Seg Neuts % (Manual) Lymphocytes % (Manual) Monocytes % (Manual) Seg Neutrophils # Seg Neutrophils # Man Lymphocytes # (Manual) Monocytes # (Manual) Eosinophils # (Manual) PT INR APTT Heparin Anti-Xa Level 0.20 L POC ABG pH POC ABG pCO2 48.6 H POC ABG pO2 79 L Sodium Potassium Chloride Carbon Dioxide BUN Creatinine Glucose POC Glucose 206 H Calcium Phosphorus Magnesium Total Bilirubin AST Total Creatine Kinase CK-MB (CK-2) Total Protein Albumin Urine Creatinine Urine Chloride 03/21/17 03/21/17 03/21/17 04:21 04:21 05:23 WBC RBC Hgb Hct MCV MCH MCHC RDW Plt Count Lymph % (Auto) [place] % (Auto) [place] # Seg Neutrophils % Seg Neuts % (Manual) Lymphocytes % (Manual) Monocytes % (Manual) Seg Neutrophils # Seg Neutrophils # Man Lymphocytes # (Manual) Monocytes # (Manual) Eosinophils # (Manual) PT INR APTT Heparin Anti-Xa Level 0.24 L POC ABG pH POC ABG pCO2 POC ABG pO2 Sodium 147 H Potassium Chloride Carbon Dioxide BUN 42 H Creatinine 2.6 H D Glucose 209 H POC Glucose 181 H Calcium 7.9 L Phosphorus Magnesium Total Bilirubin AST Total Creatine Kinase CK-MB (CK-2) Total Protein Albumin Urine Creatinine Urine Chloride 03/21/17 03/21/17 03/21/17 13:16 13:16 14:43 WBC 27.8 H RBC Hgb Hct MCV 101 H D MCH MCHC RDW Plt Count Lymph % (Auto) [place] % (Auto) [place] # Seg Neutrophils % Seg Neuts % (Manual) 76.0 H Lymphocytes % (Manual) 7.0 L Monocytes % (Manual) Seg Neutrophils # Seg Neutrophils # Man 21.1 H Lymphocytes # (Manual) Monocytes # (Manual) 1.1 H Eosinophils # (Manual) PT INR APTT Heparin Anti-Xa Level 0.25 L POC ABG pH 7.474 H POC ABG pCO2 POC ABG pO2 59 L Sodium Potassium Chloride Carbon Dioxide BUN Creatinine Glucose POC Glucose Calcium Phosphorus Magnesium Total Bilirubin AST Total Creatine Kinase CK-MB (CK-2) Total Protein Albumin Urine Creatinine Urine Chloride 03/21/17 03/21/17 03/21/17 17:00 18:20 23:40 WBC RBC Hgb Hct MCV MCH MCHC RDW Plt Count Lymph % (Auto) [place] % (Auto) [place] # Seg Neutrophils % Seg Neuts % (Manual) Lymphocytes % (Manual) Monocytes % (Manual) Seg Neutrophils # Seg Neutrophils # Man Lymphocytes # (Manual) Monocytes # (Manual) Eosinophils # (Manual) PT INR APTT Heparin Anti-Xa Level POC ABG pH POC ABG pCO2 POC ABG pO2 Sodium Potassium Chloride Carbon Dioxide BUN 48 H Creatinine 3.2 H Glucose 135 H POC Glucose 152 H 136 H Calcium 6.8 L Phosphorus Magnesium Total Bilirubin AST Total Creatine Kinase CK-MB (CK-2) Total Protein 5.3 L D Albumin 1.7 L Urine Creatinine Urine Chloride 03/22/17 03/22/17 03/22/17 04:30 04:30 04:30 WBC 29.3 H RBC Hgb Hct MCV 100 H MCH MCHC 31 L RDW 15.3 H Plt Count Lymph % (Auto) [place] % (Auto) [place] # Seg Neutrophils % Seg Neuts % (Manual) Lymphocytes % (Manual) Monocytes % (Manual) Seg Neutrophils # Seg Neutrophils # Man Lymphocytes # (Manual) Monocytes # (Manual) Eosinophils # (Manual) PT INR APTT Heparin Anti-Xa Level 0.29 L POC ABG pH POC ABG pCO2 POC ABG pO2 Sodium Potassium Chloride Carbon Dioxide BUN 60 H Creatinine 4.3 H Glucose 118 H POC Glucose Calcium 8.2 L D Phosphorus Magnesium Total Bilirubin AST Total Creatine Kinase CK-MB (CK-2) Total Protein Albumin 1.8 L Urine Creatinine Urine Chloride 03/22/17 03/22/17 03/22/17 05:08 07:00 07:00 WBC 24.8 H RBC Hgb Hct MCV 100 H MCH MCHC RDW Plt Count Lymph % (Auto) [place] % (Auto) [place] # Seg Neutrophils % Seg Neuts % (Manual) 94.0 H Lymphocytes % (Manual) 0 L Monocytes % (Manual) Seg Neutrophils # Seg Neutrophils # Man 23.3 H Lymphocytes # (Manual) 0.0 L Monocytes # (Manual) Eosinophils # (Manual) 0.7 H PT INR APTT Heparin Anti-Xa Level POC ABG pH POC ABG pCO2 POC ABG pO2 Sodium 147 H Potassium Chloride 109.2 H Carbon Dioxide BUN 58 H Creatinine 4.1 H Glucose 117 H POC Glucose 124 H Calcium 7.4 L Phosphorus Magnesium Total Bilirubin AST Total Creatine Kinase CK-MB (CK-2) Total Protein Albumin Urine Creatinine Urine Chloride 03/22/17 03/22/17 03/22/17 08:40 11:37 14:30 WBC RBC Hgb Hct MCV MCH MCHC RDW Plt Count Lymph % (Auto) [place] % (Auto) [place] # Seg Neutrophils % Seg Neuts % (Manual) Lymphocytes % (Manual) Monocytes % (Manual) Seg Neutrophils # Seg Neutrophils # Man Lymphocytes # (Manual) Monocytes # (Manual) Eosinophils # (Manual) PT 16.2 H INR 1.31 H APTT 68.9 H* Heparin Anti-Xa Level < 0.10 L POC ABG pH POC ABG pCO2 POC ABG pO2 Sodium Potassium Chloride Carbon Dioxide BUN Creatinine Glucose POC Glucose 159 H Calcium Phosphorus Magnesium Total Bilirubin AST Total Creatine Kinase CK-MB (CK-2) Total Protein Albumin Urine Creatinine Urine Chloride 03/22/17 03/22/17 03/22/17 17:53 21:44 23:54 WBC RBC Hgb 11.6 L Hct 33.1 L MCV MCH MCHC RDW Plt Count Lymph % (Auto) [place] % (Auto) [place] # Seg Neutrophils % Seg Neuts % (Manual) Lymphocytes % (Manual) Monocytes % (Manual) Seg Neutrophils # Seg Neutrophils # Man Lymphocytes # (Manual) Monocytes # (Manual) Eosinophils # (Manual) PT INR APTT Heparin Anti-Xa Level POC ABG pH POC ABG pCO2 POC ABG pO2 Sodium Potassium Chloride Carbon Dioxide BUN Creatinine Glucose POC Glucose 142 H 131 H Calcium Phosphorus Magnesium Total Bilirubin AST Total Creatine Kinase CK-MB (CK-2) Total Protein Albumin Urine Creatinine Urine Chloride 03/23/17 03/23/17 03/23/17 04:08 05:29 06:34 WBC RBC Hgb Hct MCV MCH MCHC RDW Plt Count Lymph % (Auto) [place] % (Auto) [place] # Seg Neutrophils % Seg Neuts % (Manual) Lymphocytes % (Manual) Monocytes % (Manual) Seg Neutrophils # Seg Neutrophils # Man Lymphocytes # (Manual) Monocytes # (Manual) Eosinophils # (Manual) PT INR APTT Heparin Anti-Xa Level POC ABG pH POC ABG pCO2 POC ABG pO2 75 L Sodium Potassium Chloride Carbon Dioxide 21 L BUN 85 H Creatinine 6.0 H Glucose 134 H POC Glucose 134 H Calcium 8.1 L Phosphorus Magnesium Total Bilirubin AST Total Creatine Kinase CK-MB (CK-2) Total Protein Albumin Urine Creatinine Urine Chloride 03/23/17 03/23/17 03/23/17 12:09 17:20 17:52 WBC RBC Hgb Hct MCV MCH MCHC RDW Plt Count Lymph % (Auto) [place] % (Auto) [place] # Seg Neutrophils % Seg Neuts % (Manual) Lymphocytes % (Manual) Monocytes % (Manual) Seg Neutrophils # Seg Neutrophils # Man Lymphocytes # (Manual) Monocytes # (Manual) Eosinophils # (Manual) PT INR APTT Heparin Anti-Xa Level 1.39 H POC ABG pH POC ABG pCO2 POC ABG pO2 Sodium Potassium Chloride Carbon Dioxide BUN Creatinine Glucose POC Glucose 133 H 151 H Calcium Phosphorus Magnesium Total Bilirubin AST Total Creatine Kinase CK-MB (CK-2) Total Protein Albumin Urine Creatinine Urine Chloride 03/23/17 03/24/17 03/24/17 23:59 03:15 03:15 WBC 23.9 H RBC 3.58 L Hgb 11.6 L Hct 34.6 L MCV 97 H D MCH MCHC RDW Plt Count 122 L Lymph % (Auto) [place] % (Auto) [place] # Seg Neutrophils % Seg Neuts % (Manual) Lymphocytes % (Manual) Monocytes % (Manual) Seg Neutrophils # Seg Neutrophils # Man Lymphocytes # (Manual) Monocytes # (Manual) Eosinophils # (Manual) PT INR APTT Heparin Anti-Xa Level POC ABG pH POC ABG pCO2 POC ABG pO2 Sodium 135 L Potassium Chloride 95.0 L Carbon Dioxide BUN 71 H Creatinine 5.2 H Glucose 123 H POC Glucose 124 H Calcium 8.0 L Phosphorus Magnesium Total Bilirubin AST Total Creatine Kinase CK-MB (CK-2) Total Protein Albumin Urine Creatinine Urine Chloride 03/24/17 03/24/17 03/24/17 03:15 04:53 11:58 WBC RBC Hgb Hct MCV MCH MCHC RDW Plt Count Lymph % (Auto) [place] % (Auto) [place] # Seg Neutrophils % Seg Neuts % (Manual) Lymphocytes % (Manual) Monocytes % (Manual) Seg Neutrophils # Seg Neutrophils # Man Lymphocytes # (Manual) Monocytes # (Manual) Eosinophils # (Manual) PT INR APTT Heparin Anti-Xa Level 0.20 L POC ABG pH POC ABG pCO2 POC ABG pO2 72 L Sodium Potassium Chloride Carbon Dioxide BUN Creatinine Glucose POC Glucose 121 H Calcium Phosphorus Magnesium Total Bilirubin AST Total Creatine Kinase CK-MB (CK-2) Total Protein Albumin Urine Creatinine Urine Chloride 03/24/17 03/25/17 03/25/17 18:16 00:24 05:30 WBC RBC Hgb Hct MCV MCH MCHC RDW Plt Count Lymph % (Auto) [place] % (Auto) [place] # Seg Neutrophils % Seg Neuts % (Manual) Lymphocytes % (Manual) Monocytes % (Manual) Seg Neutrophils # Seg Neutrophils # Man Lymphocytes # (Manual) Monocytes # (Manual) Eosinophils # (Manual) PT INR APTT Heparin Anti-Xa Level POC ABG pH POC ABG pCO2 34.2 L POC ABG pO2 Sodium Potassium Chloride Carbon Dioxide BUN Creatinine Glucose POC Glucose 117 H 107 H Calcium Phosphorus Magnesium Total Bilirubin AST Total Creatine Kinase CK-MB (CK-2) Total Protein Albumin Urine Creatinine Urine Chloride 03/25/17 03/25/17 03/25/17 05:35 11:45 16:48 WBC RBC Hgb Hct MCV MCH MCHC RDW Plt Count Lymph % (Auto) [place] % (Auto) [place] # Seg Neutrophils % Seg Neuts % (Manual) Lymphocytes % (Manual) Monocytes % (Manual) Seg Neutrophils # Seg Neutrophils # Man Lymphocytes # (Manual) Monocytes # (Manual) Eosinophils # (Manual) PT INR APTT Heparin Anti-Xa Level POC ABG pH POC ABG pCO2 POC ABG pO2 Sodium 132 L Potassium Chloride 92.0 L Carbon Dioxide 20 L BUN 102 H Creatinine 7.2 H Glucose 101 H POC Glucose 127 H 114 H Calcium 8.3 L Phosphorus Magnesium Total Bilirubin AST Total Creatine Kinase CK-MB (CK-2) Total Protein Albumin Urine Creatinine Urine Chloride 03/26/17 03/26/17 03/26/17 00:17 04:15 04:15 WBC 21.1 H RBC 3.52 L Hgb 11.0 L Hct 33.2 L MCV 95 H MCH MCHC RDW Plt Count 121 L Lymph % (Auto) [place] % (Auto) [place] # Seg Neutrophils % Seg Neuts % (Manual) Lymphocytes % (Manual) Monocytes % (Manual) Seg Neutrophils # Seg Neutrophils # Man Lymphocytes # (Manual) Monocytes # (Manual) Eosinophils # (Manual) PT INR APTT Heparin Anti-Xa Level POC ABG pH POC ABG pCO2 POC ABG pO2 Sodium 133 L Potassium Chloride 92.9 L Carbon Dioxide 21 L BUN 77 H Creatinine 5.4 H Glucose 115 H POC Glucose 114 H Calcium 8.1 L Phosphorus Magnesium Total Bilirubin AST Total Creatine Kinase CK-MB (CK-2) Total Protein Albumin Urine Creatinine Urine Chloride 03/26/17 03/26/17 03/26/17 04:49 11:36 23:29 WBC RBC Hgb Hct MCV MCH MCHC RDW Plt Count Lymph % (Auto) [place] % (Auto) [place] # Seg Neutrophils % Seg Neuts % (Manual) Lymphocytes % (Manual) Monocytes % (Manual) Seg Neutrophils # Seg Neutrophils # Man Lymphocytes # (Manual) Monocytes # (Manual) Eosinophils # (Manual) PT INR APTT Heparin Anti-Xa Level POC ABG pH POC ABG pCO2 POC ABG pO2 Sodium Potassium Chloride Carbon Dioxide BUN Creatinine Glucose POC Glucose 127 H 123 H 125 H Calcium Phosphorus Magnesium Total Bilirubin AST Total Creatine Kinase CK-MB (CK-2) Total Protein Albumin Urine Creatinine Urine Chloride 03/27/17 03/27/17 03/27/17 04:00 04:46 05:06 WBC RBC Hgb Hct MCV MCH MCHC RDW Plt Count Lymph % (Auto) [place] % (Auto) [place] # Seg Neutrophils % Seg Neuts % (Manual) Lymphocytes % (Manual) Monocytes % (Manual) Seg Neutrophils # Seg Neutrophils # Man Lymphocytes # (Manual) Monocytes # (Manual) Eosinophils # (Manual) PT INR APTT Heparin Anti-Xa Level POC ABG pH POC ABG pCO2 31.4 L POC ABG pO2 Sodium 132 L Potassium Chloride 90.5 L Carbon Dioxide 19 L BUN 95 H Creatinine 6.7 H Glucose 110 H POC Glucose 116 H Calcium Phosphorus Magnesium Total Bilirubin AST Total Creatine Kinase CK-MB (CK-2) Total Protein Albumin Urine Creatinine Urine Chloride 03/27/17 03/27/17 03/27/17 08:11 08:11 11:34 WBC 24.7 H RBC Hgb 11.5 L Hct 35.0 L MCV 95 H MCH MCHC RDW Plt Count Lymph % (Auto) [place] % (Auto) [place] # Seg Neutrophils % Seg Neuts % (Manual) Lymphocytes % (Manual) Monocytes % (Manual) Seg Neutrophils # Seg Neutrophils # Man Lymphocytes # (Manual) Monocytes # (Manual) Eosinophils # (Manual) PT INR APTT Heparin Anti-Xa Level < 0.10 L POC ABG pH POC ABG pCO2 POC ABG pO2 Sodium Potassium Chloride Carbon Dioxide BUN Creatinine Glucose POC Glucose 118 H Calcium Phosphorus Magnesium Total Bilirubin AST Total Creatine Kinase CK-MB (CK-2) Total Protein Albumin Urine Creatinine Urine Chloride 03/27/17 03/27/17 03/28/17 16:44 23:59 05:07 WBC RBC Hgb Hct MCV MCH MCHC RDW Plt Count Lymph % (Auto) [place] % (Auto) [place] # Seg Neutrophils % Seg Neuts % (Manual) Lymphocytes % (Manual) Monocytes % (Manual) Seg Neutrophils # Seg Neutrophils # Man Lymphocytes # (Manual) Monocytes # (Manual) Eosinophils # (Manual) PT INR APTT Heparin Anti-Xa Level POC ABG pH POC ABG pCO2 POC ABG pO2 Sodium Potassium Chloride Carbon Dioxide BUN Creatinine Glucose POC Glucose 110 H 109 H 110 H Calcium Phosphorus Magnesium Total Bilirubin AST Total Creatine Kinase CK-MB (CK-2) Total Protein Albumin Urine Creatinine Urine Chloride 03/28/17 03/28/17 03/28/17 07:00 11:24 11:50 WBC 26.6 H RBC 3.42 L Hgb 10.8 L Hct 33.2 L MCV 97 H MCH MCHC RDW 15.4 H Plt Count Lymph % (Auto) [place] % (Auto) [place] # Seg Neutrophils % Seg Neuts % (Manual) Lymphocytes % (Manual) Monocytes % (Manual) Seg Neutrophils # Seg Neutrophils # Man Lymphocytes # (Manual) Monocytes # (Manual) Eosinophils # (Manual) PT INR APTT Heparin Anti-Xa Level POC ABG pH POC ABG pCO2 POC ABG pO2 Sodium 131 L Potassium 5.3 H Chloride 86.6 L Carbon Dioxide 17 L BUN 112 H Creatinine 7.9 H Glucose 120 H POC Glucose 141 H Calcium Phosphorus Magnesium Total Bilirubin AST Total Creatine Kinase CK-MB (CK-2) Total Protein Albumin Urine Creatinine Urine Chloride 03/28/17 03/28/17 03/28/17 17:25 18:04 23:07 WBC RBC Hgb Hct MCV MCH MCHC RDW Plt Count Lymph % (Auto) [place] % (Auto) [place] # Seg Neutrophils % Seg Neuts % (Manual) Lymphocytes % (Manual) Monocytes % (Manual) Seg Neutrophils # Seg Neutrophils # Man Lymphocytes # (Manual) Monocytes # (Manual) Eosinophils # (Manual) PT INR APTT Heparin Anti-Xa Level 0.23 L POC ABG pH POC ABG pCO2 POC ABG pO2 Sodium Potassium Chloride Carbon Dioxide BUN Creatinine Glucose POC Glucose 128 H 115 H Calcium Phosphorus Magnesium Total Bilirubin AST Total Creatine Kinase CK-MB (CK-2) Total Protein Albumin Urine Creatinine Urine Chloride 03/29/17 03/29/17 03/29/17 03:23 05:16 08:20 WBC RBC Hgb Hct MCV MCH MCHC RDW Plt Count Lymph % (Auto) [place] % (Auto) [place] # Seg Neutrophils % Seg Neuts % (Manual) Lymphocytes % (Manual) Monocytes % (Manual) Seg Neutrophils # Seg Neutrophils # Man Lymphocytes # (Manual) Monocytes # (Manual) Eosinophils # (Manual) PT INR APTT Heparin Anti-Xa Level 0.10 L POC ABG pH POC ABG pCO2 POC ABG pO2 Sodium 126 L Potassium 5.6 H Chloride 87.5 L Carbon Dioxide 21 L BUN 84 H Creatinine 6.0 H Glucose 144 H POC Glucose 146 H Calcium 7.9 L Phosphorus Magnesium Total Bilirubin AST Total Creatine Kinase CK-MB (CK-2) Total Protein Albumin Urine Creatinine Urine Chloride 03/29/17 03/29/17 03/29/17 08:20 09:13 10:00 WBC 27.6 H RBC 3.27 L Hgb 10.2 L Hct 31.8 L MCV 97 H MCH MCHC RDW 15.3 H Plt Count Lymph % (Auto) [place] % (Auto) [place] # Seg Neutrophils % Seg Neuts % (Manual) Lymphocytes % (Manual) Monocytes % (Manual) Seg Neutrophils # Seg Neutrophils # Man Lymphocytes # (Manual) Monocytes # (Manual) Eosinophils # (Manual) PT INR APTT Heparin Anti-Xa Level 0.84 H POC ABG pH 7.204 L POC ABG pCO2 52.8 H POC ABG pO2 57 L Sodium Potassium Chloride Carbon Dioxide BUN Creatinine Glucose POC Glucose Calcium Phosphorus Magnesium Total Bilirubin AST Total Creatine Kinase CK-MB (CK-2) Total Protein Albumin Urine Creatinine Urine Chloride 03/29/17 03/29/17 03/29/17 10:24 12:27 16:44 WBC RBC Hgb Hct MCV MCH MCHC RDW Plt Count Lymph % (Auto) [place] % (Auto) [place] # Seg Neutrophils % Seg Neuts % (Manual) Lymphocytes % (Manual) Monocytes % (Manual) Seg Neutrophils # Seg Neutrophils # Man Lymphocytes # (Manual) Monocytes # (Manual) Eosinophils # (Manual) PT INR APTT Heparin Anti-Xa Level < 0.10 L POC ABG pH 7.305 L POC ABG pCO2 POC ABG pO2 73 L Sodium Potassium Chloride Carbon Dioxide BUN Creatinine Glucose POC Glucose 152 H Calcium Phosphorus Magnesium Total Bilirubin AST Total Creatine Kinase CK-MB (CK-2) Total Protein Albumin Urine Creatinine Urine Chloride 03/29/17 03/29/17 03/29/17 17:48 18:56 22:10 WBC RBC Hgb Hct MCV MCH MCHC RDW Plt Count Lymph % (Auto) [place] % (Auto) [place] # Seg Neutrophils % Seg Neuts % (Manual) Lymphocytes % (Manual) Monocytes % (Manual) Seg Neutrophils # Seg Neutrophils # Man Lymphocytes # (Manual) Monocytes # (Manual) Eosinophils # (Manual) PT INR APTT Heparin Anti-Xa Level POC ABG pH POC ABG pCO2 POC ABG pO2 Sodium 125 L Potassium 5.8 H Chloride 85.4 L Carbon Dioxide 16 L BUN 96 H Creatinine 6.9 H Glucose 135 H POC Glucose 130 H Calcium Phosphorus Magnesium Total Bilirubin AST Total Creatine Kinase CK-MB (CK-2) Total Protein Albumin Urine Creatinine 86.5 H Urine Chloride 15.2 L 03/30/17 03/30/17 03/30/17 00:11 01:00 05:42 WBC RBC Hgb Hct MCV MCH MCHC RDW Plt Count Lymph % (Auto) [place] % (Auto) [place] # Seg Neutrophils % Seg Neuts % (Manual) Lymphocytes % (Manual) Monocytes % (Manual) Seg Neutrophils # Seg Neutrophils # Man Lymphocytes # (Manual) Monocytes # (Manual) Eosinophils # (Manual) PT INR APTT Heparin Anti-Xa Level 0.80 H POC ABG pH POC ABG pCO2 POC ABG pO2 Sodium Potassium Chloride Carbon Dioxide BUN Creatinine Glucose POC Glucose 146 H 162 H Calcium Phosphorus Magnesium Total Bilirubin AST Total Creatine Kinase CK-MB (CK-2) Total Protein Albumin Urine Creatinine Urine Chloride 03/30/17 03/30/17 03/30/17 07:32 07:38 08:20 WBC 27.7 H RBC 3.14 L Hgb 9.7 L Hct 30.1 L MCV 96 H MCH MCHC RDW 16.2 H Plt Count Lymph % (Auto) [place] % (Auto) [place] # Seg Neutrophils % Seg Neuts % (Manual) 93.0 H Lymphocytes % (Manual) 1.0 L Monocytes % (Manual) Seg Neutrophils # Seg Neutrophils # Man 25.8 H Lymphocytes # (Manual) 0.3 L Monocytes # (Manual) 1.0 H Eosinophils # (Manual) PT INR APTT Heparin Anti-Xa Level 0.99 H POC ABG pH POC ABG pCO2 POC ABG pO2 Sodium 127 L Potassium 5.9 H Chloride 88.5 L Carbon Dioxide 16 L BUN 101 H Creatinine 7.5 H Glucose 147 H POC Glucose Calcium 8.0 L Phosphorus Magnesium Total Bilirubin AST Total Creatine Kinase CK-MB (CK-2) Total Protein Albumin Urine Creatinine Urine Chloride 03/30/17 03/30/17 03/30/17 12:19 16:07 16:58 WBC RBC Hgb Hct MCV MCH MCHC RDW Plt Count Lymph % (Auto) [place] % (Auto) [place] # Seg Neutrophils % Seg Neuts % (Manual) Lymphocytes % (Manual) Monocytes % (Manual) Seg Neutrophils # Seg Neutrophils # Man Lymphocytes # (Manual) Monocytes # (Manual) Eosinophils # (Manual) PT INR APTT Heparin Anti-Xa Level 1.07 H POC ABG pH POC ABG pCO2 POC ABG pO2 62 L Sodium Potassium Chloride Carbon Dioxide BUN Creatinine Glucose POC Glucose 179 H Calcium Phosphorus Magnesium Total Bilirubin AST Total Creatine Kinase CK-MB (CK-2) Total Protein Albumin Urine Creatinine Urine Chloride 03/30/17 03/30/17 03/31/17 17:48 Unknown 00:25 WBC RBC Hgb Hct MCV MCH MCHC RDW Plt Count Lymph % (Auto) [place] % (Auto) [place] # Seg Neutrophils % Seg Neuts % (Manual) Lymphocytes % (Manual) Monocytes % (Manual) Seg Neutrophils # Seg Neutrophils # Man Lymphocytes # (Manual) Monocytes # (Manual) Eosinophils # (Manual) PT INR APTT Heparin Anti-Xa Level POC ABG pH POC ABG pCO2 POC ABG pO2 Sodium 124 L Potassium 5.2 H Chloride 86.6 L Carbon Dioxide 16 L BUN 93 H Creatinine 6.3 H Glucose 153 H POC Glucose 162 H 139 H Calcium 7.4 L D Phosphorus Magnesium Total Bilirubin AST Total Creatine Kinase CK-MB (CK-2) Total Protein Albumin Urine Creatinine Urine Chloride 03/31/17 03/31/17 03/31/17 04:18 05:21 11:39 WBC RBC Hgb Hct MCV MCH MCHC RDW Plt Count Lymph % (Auto) [place] % (Auto) [place] # Seg Neutrophils % Seg Neuts % (Manual) Lymphocytes % (Manual) Monocytes % (Manual) Seg Neutrophils # Seg Neutrophils # Man Lymphocytes # (Manual) Monocytes # (Manual) Eosinophils # (Manual) PT INR APTT Heparin Anti-Xa Level POC ABG pH 7.209 L POC ABG pCO2 55.7 H POC ABG pO2 106 H Sodium Potassium Chloride Carbon Dioxide BUN Creatinine Glucose POC Glucose 133 H 133 H Calcium Phosphorus Magnesium Total Bilirubin AST Total Creatine Kinase CK-MB (CK-2) Total Protein Albumin Urine Creatinine Urine Chloride 03/31/17 03/31/17 03/31/17 16:53 Unknown Unknown WBC 25.9 H RBC 3.04 L Hgb 9.6 L Hct 29.9 L MCV 98 H MCH MCHC RDW 16.1 H Plt Count Lymph % (Auto) [place] % (Auto) [place] # Seg Neutrophils % Seg Neuts % (Manual) Lymphocytes % (Manual) Monocytes % (Manual) Seg Neutrophils # Seg Neutrophils # Man Lymphocytes # (Manual) Monocytes # (Manual) Eosinophils # (Manual) PT INR APTT Heparin Anti-Xa Level POC ABG pH POC ABG pCO2 POC ABG pO2 Sodium 133 L Potassium Chloride 91.6 L Carbon Dioxide 20 L BUN 67 H Creatinine 5.3 H Glucose 129 H POC Glucose 146 H Calcium 7.4 L Phosphorus Magnesium Total Bilirubin AST Total Creatine Kinase CK-MB (CK-2) Total Protein Albumin Urine Creatinine Urine Chloride 03/31/17 04/01/17 04/01/17 23:59 04:00 04:00 WBC 16.1 H RBC 3.02 L Hgb 9.6 L Hct 29.0 L MCV 96 H MCH MCHC RDW 16.0 H Plt Count Lymph % (Auto) [place] % (Auto) [place] # Seg Neutrophils % Seg Neuts % (Manual) Lymphocytes % (Manual) Monocytes % (Manual) Seg Neutrophils # Seg Neutrophils # Man Lymphocytes # (Manual) Monocytes # (Manual) Eosinophils # (Manual) PT INR APTT Heparin Anti-Xa Level POC ABG pH POC ABG pCO2 POC ABG pO2 Sodium Potassium 3.1 L D Chloride 96.0 L Carbon Dioxide BUN 45 H Creatinine 4.1 H Glucose POC Glucose 121 H Calcium 7.1 L Phosphorus Magnesium Total Bilirubin AST Total Creatine Kinase CK-MB (CK-2) Total Protein Albumin Urine Creatinine Urine Chloride 04/01/17 04/02/17 04/02/17 05:20 00:15 04:00 WBC 13.5 H RBC 3.05 L Hgb 9.7 L Hct 29.2 L MCV 96 H MCH MCHC RDW 15.9 H Plt Count Lymph % (Auto) [place] % (Auto) [place] # Seg Neutrophils % Seg Neuts % (Manual) Lymphocytes % (Manual) Monocytes % (Manual) Seg Neutrophils # Seg Neutrophils # Man Lymphocytes # (Manual) Monocytes # (Manual) Eosinophils # (Manual) PT INR APTT Heparin Anti-Xa Level POC ABG pH POC ABG pCO2 POC ABG pO2 132 H Sodium Potassium Chloride Carbon Dioxide BUN Creatinine Glucose POC Glucose 110 H Calcium Phosphorus Magnesium Total Bilirubin AST Total Creatine Kinase CK-MB (CK-2) Total Protein Albumin Urine Creatinine Urine Chloride 04/02/17 04/02/17 04/02/17 04:22 04:35 05:25 WBC RBC Hgb Hct MCV MCH MCHC RDW Plt Count Lymph % (Auto) [place] % (Auto) [place] # Seg Neutrophils % Seg Neuts % (Manual) Lymphocytes % (Manual) Monocytes % (Manual) Seg Neutrophils # Seg Neutrophils # Man Lymphocytes # (Manual) Monocytes # (Manual) Eosinophils # (Manual) PT INR APTT Heparin Anti-Xa Level POC ABG pH POC ABG pCO2 POC ABG pO2 106 H Sodium Potassium 2.8 L* Chloride Carbon Dioxide BUN 30 H Creatinine 3.5 H Glucose 113 H POC Glucose 110 H Calcium 7.6 L Phosphorus Magnesium Total Bilirubin AST Total Creatine Kinase CK-MB (CK-2) Total Protein Albumin Urine Creatinine Urine Chloride 04/02/17 04/02/17 04/02/17 06:49 11:56 18:02 WBC RBC Hgb Hct MCV MCH MCHC RDW Plt Count Lymph % (Auto) [place] % (Auto) [place] # Seg Neutrophils % Seg Neuts % (Manual) Lymphocytes % (Manual) Monocytes % (Manual) Seg Neutrophils # Seg Neutrophils # Man Lymphocytes # (Manual) Monocytes # (Manual) Eosinophils # (Manual) PT INR APTT Heparin Anti-Xa Level 0.23 L POC ABG pH POC ABG pCO2 POC ABG pO2 Sodium Potassium Chloride Carbon Dioxide BUN Creatinine Glucose POC Glucose 118 H 128 H Calcium Phosphorus Magnesium Total Bilirubin AST Total Creatine Kinase CK-MB (CK-2) Total Protein Albumin Urine Creatinine Urine Chloride 04/03/17 04/03/17 04/03/17 00:15 04:41 05:54 WBC RBC Hgb Hct MCV MCH MCHC RDW Plt Count Lymph % (Auto) [place] % (Auto) [place] # Seg Neutrophils % Seg Neuts % (Manual) Lymphocytes % (Manual) Monocytes % (Manual) Seg Neutrophils # Seg Neutrophils # Man Lymphocytes # (Manual) Monocytes # (Manual) Eosinophils # (Manual) PT INR APTT Heparin Anti-Xa Level POC ABG pH 7.451 H POC ABG pCO2 POC ABG pO2 146 H Sodium Potassium Chloride Carbon Dioxide BUN Creatinine Glucose POC Glucose 202 H 202 H Calcium Phosphorus Magnesium Total Bilirubin AST Total Creatine Kinase CK-MB (CK-2) Total Protein Albumin Urine Creatinine Urine Chloride 04/03/17 04/03/17 04/03/17 06:22 06:22 09:54 WBC RBC 3.03 L Hgb 9.7 L Hct 28.7 L MCV 95 H MCH MCHC RDW 15.9 H Plt Count Lymph % (Auto) [place] % (Auto) [place] # Seg Neutrophils % Seg Neuts % (Manual) Lymphocytes % (Manual) Monocytes % (Manual) Seg Neutrophils # Seg Neutrophils # Man Lymphocytes # (Manual) Monocytes # (Manual) Eosinophils # (Manual) PT INR APTT Heparin Anti-Xa Level < 0.10 L POC ABG pH POC ABG pCO2 POC ABG pO2 Sodium Potassium Chloride Carbon Dioxide BUN 23 H Creatinine 3.1 H Glucose 175 H POC Glucose Calcium 8.0 L Phosphorus Magnesium Total Bilirubin AST Total Creatine Kinase CK-MB (CK-2) Total Protein Albumin Urine Creatinine Urine Chloride 04/03/17 04/03/17 04/03/17 11:40 11:45 16:25 WBC RBC Hgb Hct MCV MCH MCHC RDW Plt Count Lymph % (Auto) [place] % (Auto) [place] # Seg Neutrophils % Seg Neuts % (Manual) Lymphocytes % (Manual) Monocytes % (Manual) Seg Neutrophils # Seg Neutrophils # Man Lymphocytes # (Manual) Monocytes # (Manual) Eosinophils # (Manual) PT INR APTT Heparin Anti-Xa Level 0.27 L POC ABG pH POC ABG pCO2 POC ABG pO2 Sodium Potassium Chloride Carbon Dioxide BUN Creatinine Glucose POC Glucose 205 H 191 H Calcium Phosphorus Magnesium Total Bilirubin AST Total Creatine Kinase CK-MB (CK-2) Total Protein Albumin Urine Creatinine Urine Chloride 04/03/17 04/04/17 04/04/17 21:42 04:00 04:00 WBC 11.7 H RBC 3.20 L Hgb 10.0 L Hct 31.2 L MCV 96 H MCH MCHC RDW 16.1 H Plt Count Lymph % (Auto) [place] % (Auto) [place] # Seg Neutrophils % Seg Neuts % (Manual) 94.0 H Lymphocytes % (Manual) 0 L Monocytes % (Manual) Seg Neutrophils # Seg Neutrophils # Man 11.0 H Lymphocytes # (Manual) 0.0 L Monocytes # (Manual) Eosinophils # (Manual) PT INR APTT Heparin Anti-Xa Level POC ABG pH POC ABG pCO2 POC ABG pO2 Sodium 136 L Potassium Chloride 97.6 L Carbon Dioxide 21 L BUN 41 H Creatinine 4.0 H Glucose 184 H POC Glucose 147 H Calcium 8.1 L Phosphorus Magnesium Total Bilirubin AST Total Creatine Kinase CK-MB (CK-2) Total Protein Albumin Urine Creatinine Urine Chloride 04/04/17 04/04/17 05:12 06:17 WBC RBC Hgb Hct MCV MCH MCHC RDW Plt Count Lymph % (Auto) [place] % (Auto) [place] # Seg Neutrophils % Seg Neuts % (Manual) Lymphocytes % (Manual) Monocytes % (Manual) Seg Neutrophils # Seg Neutrophils # Man Lymphocytes # (Manual) Monocytes # (Manual) Eosinophils # (Manual) PT INR APTT Heparin Anti-Xa Level POC ABG pH POC ABG pCO2 34.3 L POC ABG pO2 Sodium Potassium Chloride Carbon Dioxide BUN Creatinine Glucose POC Glucose 188 H Calcium Phosphorus Magnesium Total Bilirubin AST Total Creatine Kinase CK-MB (CK-2) Total Protein Albumin Urine Creatinine Urine Chloride
[2017-04-04] MEDS: VITAMIN B-1 PO SCH (14:36)
[2017-04-04] MEDS: FOLVITE PO SCH (14:36)
[2017-04-04] MEDS: MERREM/NS 500 MG/50 ML 500 MG/50 ML BAG IV SCH (14:37)
[2017-04-04] MEDS: PROTONIX PO SCH (14:37)
[2017-04-04] MEDS: HEPARIN IV PRN (19:38)
[2017-04-04] MEDS: ATIVAN IV PRN (21:11)
[2017-04-04] MEDS: HALDOL IV PRN (21:35)
[2017-04-05] MEDS: CARDIZEM PO SCH ×4 (00:45→18:21)
[2017-04-05] MEDS: NOVOLOG SUB-Q SCH ×4 (00:45→18:22)
[2017-04-05] MEDS: ATIVAN IV PRN ×2 (01:56→22:12)
[2017-04-05] MEDS: HALDOL IV PRN ×2 (02:00→22:12)
[2017-04-05] MEDS: DUONEB *Not for PRN Use IH SCH ×5 (04:34→20:20)
[2017-04-05 04:54] LABS: ISTAT Base Excess 0; ISTAT HCO3 23.6; ISTAT PCO2 33.7 (35-45); ISTAT PH 7.453 (7.35-7.45); ISTAT PO2 98 (80-105); ISTAT SO2 98; ISTAT TCO2 25
[2017-04-05] MEDS: HEPARIN/ 0.45% NACL-25,000 UNIT/500 ML 25,000 UNIT/500 ML BAG IV SCH ×2 (06:16→20:59)
[2017-04-05] MEDS: NACL 0.9% 1000 ML 1,000 ML IV SCH (06:17)
[2017-04-05] MEDS: APRESOLINE PO SCH ×3 (08:34→20:58)
[2017-04-05] MEDS: LOPRESSOR PO SCH ×3 (08:34→20:58)
--- NOTE | 2017-04-05 08:40 | Progress Note ---
Assessment and Plan 51 y/o male, noncompliant, with systolic heart failure, admitted with afib with RVR, and possible ETOH abuse, now with recurrent afib with RVR and likely aspiration pneumonia on the right resulting in acute respiratory failure, now with recurrent respiratory failure 1. Decrease PEEP to 5 today and attempt PSV trial later this afternoon 2. Follow up any new renal recs to see if HD will happen again today. 3. Rate control 4. PRN meds for sedation, hold on continuous infusion if possible 5. CXR is stable, may need trach but will attempt repeat extubation soon CCT 31 minutes. Subjective Date of service: 04/05/17 Principal diagnosis: afib, EtOH abuse, morbid obesity, respiratory failure status post extubatio Interval history: No acute events. Had HD on yesterday. Mental status appears stable. Objective Vital Signs - 12hr 04/04/17 04/04/17 04/04/17 20:57 21:00 21:31 Temperature Pulse Rate 108 H 112 H 120 H Pulse Rate [ Anterior Bilateral Throughout] Pulse Rate [ From Monitor] Respiratory 15 17 Rate Respiratory Rate [Anterior Bilateral Throughout] Respiratory Rate [Right Wrist] Blood Pressure 122/79 124/84 117/79 O2 Sat by Pulse 97 96 Oximetry 04/04/17 04/04/17 04/04/17 22:00 22:31 23:00 Temperature Pulse Rate 103 H 117 H 105 H Pulse Rate [ Anterior Bilateral Throughout] Pulse Rate [ From Monitor] Respiratory 15 15 14 Rate Respiratory Rate [Anterior Bilateral Throughout] Respiratory Rate [Right Wrist] Blood Pressure 118/81 123/77 118/77 O2 Sat by Pulse 96 97 96 Oximetry 04/04/17 04/04/17 04/04/17 23:10 23:25 23:31 Temperature Pulse Rate 108 H Pulse Rate [ 106 H 108 H Anterior Bilateral Throughout] Pulse Rate [ From Monitor] Respiratory 12 Rate Respiratory 22 22 Rate [Anterior Bilateral Throughout] Respiratory Rate [Right Wrist] Blood Pressure 112/65 O2 Sat by Pulse 96 Oximetry 04/04/17 04/04/17 04/04/17 23:34 23:48 23:56 Temperature 99.6 F Pulse Rate 115 H 106 H Pulse Rate [ Anterior Bilateral Throughout] Pulse Rate [ From Monitor] Respiratory 12 Rate Respiratory Rate [Anterior Bilateral Throughout] Respiratory Rate [Right Wrist] Blood Pressure 118/77 118/77 O2 Sat by Pulse 95 96 Oximetry 04/05/17 04/05/17 04/05/17 00:00 00:07 00:10 Temperature Pulse Rate 102 H 104 H Pulse Rate [ Anterior Bilateral Throughout] Pulse Rate [ 112 H From Monitor] Respiratory 15 Rate Respiratory Rate [Anterior Bilateral Throughout] Respiratory 16 Rate [Right Wrist] Blood Pressure 114/66 O2 Sat by Pulse 95 Oximetry 04/05/17 04/05/17 04/05/17 00:31 00:45 01:01 Temperature Pulse Rate 106 H 112 H 101 H Pulse Rate [ Anterior Bilateral Throughout] Pulse Rate [ From Monitor] Respiratory 17 13 Rate Respiratory Rate [Anterior Bilateral Throughout] Respiratory Rate [Right Wrist] Blood Pressure 116/74 116/74 111/66 O2 Sat by Pulse 96 91 Oximetry 04/05/17 04/05/17 04/05/17 01:31 02:00 02:31 Temperature Pulse Rate 107 H 102 H 101 H Pulse Rate [ Anterior Bilateral Throughout] Pulse Rate [ From Monitor] Respiratory 13 13 16 Rate Respiratory Rate [Anterior Bilateral Throughout] Respiratory Rate [Right Wrist] Blood Pressure 126/77 119/74 116/69 O2 Sat by Pulse 95 96 97 Oximetry 04/05/17 04/05/17 04/05/17 03:00 03:31 04:00 Temperature 99.1 F Pulse Rate 97 H 93 H 97 H Pulse Rate [ Anterior Bilateral Throughout] Pulse Rate [ 97 H From Monitor] Respiratory 17 19 18 Rate Respiratory Rate [Anterior Bilateral Throughout] Respiratory Rate [Right Wrist] Blood Pressure 111/65 111/69 115/69 O2 Sat by Pulse 97 97 97 Oximetry 04/05/17 04/05/17 04/05/17 04:30 04:31 04:34 Temperature Pulse Rate 85 89 Pulse Rate [ 93 H Anterior Bilateral Throughout] Pulse Rate [ From Monitor] Respiratory 14 Rate Respiratory 17 Rate [Anterior Bilateral Throughout] Respiratory Rate [Right Wrist] Blood Pressure 113/72 115/69 O2 Sat by Pulse 96 97 Oximetry 04/05/17 04/05/17 04/05/17 04:49 05:00 05:31 Temperature Pulse Rate 93 H 95 H Pulse Rate [ 95 H Anterior Bilateral Throughout] Pulse Rate [ From Monitor] Respiratory 14 11 L Rate Respiratory 17 Rate [Anterior Bilateral Throughout] Respiratory Rate [Right Wrist] Blood Pressure 114/68 112/70 O2 Sat by Pulse 97 96 Oximetry 04/05/17 04/05/17 04/05/17 06:00 06:14 06:31 Temperature Pulse Rate 104 H 108 H Pulse Rate [ Anterior Bilateral Throughout] Pulse Rate [ From Monitor] Respiratory 17 Rate Respiratory Rate [Anterior Bilateral Throughout] Respiratory Rate [Right Wrist] Blood Pressure 119/76 119/76 119/76 O2 Sat by Pulse 96 97 Oximetry 04/05/17 04/05/17 04/05/17 07:01 07:31 08:34 Temperature Pulse Rate 113 H 123 H 100 H Pulse Rate [ Anterior Bilateral Throughout] Pulse Rate [ From Monitor] Respiratory 13 14 Rate Respiratory Rate [Anterior Bilateral Throughout] Respiratory Rate [Right Wrist] Blood Pressure 127/86 136/81 138/98 O2 Sat by Pulse 97 96 Oximetry Constitutional: asleep, other (ETT in position,) Eyes: non-icteric ENT: oropharynx moist Neck: supple, no JVD Effort: mildly labored Ascultation: Right: rales (mostly on the right), Bilateral: clear, diminished breath sounds, wheezes, rhonchi (sporadic) Cardiovascular: irregular rhythm Gastrointestinal: normoactive bowel sounds, soft, non-tender, non-distended, other (obese) Integumentary: normal Extremities: no cyanosis, no edema, pink and warm Neurologic: non-focal exam, pupils equal and round, other Psychiatric: mood appropriate, affect normal, anxious CBC and BMP: 04/04/17 04:00 04/04/17 04:00 ABG, PT/INR, D-dimer: ABG POC ABG pH 7.453 (7.35-7.45) H 04/05/17 04:29 POC ABG pCO2 33.7 (35-45) L 04/05/17 04:29 POC ABG pO2 98 (80-105) 04/05/17 04:29 POC ABG HCO3 23.6 04/05/17 04:29 POC ABG Total CO2 25 04/05/17 04:29 POC ABG O2 Sat 98 04/05/17 04:29 PT/INR, D-dimer PT 16.2 Sec. (12.2-14.9) H 03/22/17 08:40 INR 1.31 (0.87-1.13) H 03/22/17 08:40 Abnormal lab findings: Abnormal Labs 02/27/17 02/27/17 02/27/17 03:51 05:41 08:49 WBC RBC Hgb Hct MCV MCH MCHC RDW Plt Count Lymph % (Auto) [place] % (Auto) [place] # Seg Neutrophils % Seg Neuts % (Manual) Lymphocytes % (Manual) Monocytes % (Manual) Seg Neutrophils # Seg Neutrophils # Man Lymphocytes # (Manual) Monocytes # (Manual) Eosinophils # (Manual) PT INR APTT Heparin Anti-Xa Level POC ABG pH POC ABG pCO2 POC ABG pO2 Sodium Potassium Chloride Carbon Dioxide BUN Creatinine Glucose POC Glucose 131 H 139 H Calcium Phosphorus Magnesium Total Bilirubin AST Total Creatine Kinase 171 H CK-MB (CK-2) 5.8 H Total Protein Albumin Urine Creatinine Urine Chloride 02/27/17 02/27/17 02/27/17 13:05 13:08 16:07 WBC RBC Hgb Hct MCV MCH MCHC RDW Plt Count Lymph % (Auto) [place] % (Auto) [place] # Seg Neutrophils % Seg Neuts % (Manual) Lymphocytes % (Manual) Monocytes % (Manual) Seg Neutrophils # Seg Neutrophils # Man Lymphocytes # (Manual) Monocytes # (Manual) Eosinophils # (Manual) PT INR APTT Heparin Anti-Xa Level POC ABG pH POC ABG pCO2 POC ABG pO2 Sodium Potassium Chloride Carbon Dioxide BUN Creatinine Glucose POC Glucose 146 H 138 H Calcium Phosphorus Magnesium Total Bilirubin AST Total Creatine Kinase CK-MB (CK-2) 4.7 H Total Protein Albumin Urine Creatinine Urine Chloride 02/27/17 02/28/17 02/28/17 21:40 03:32 03:32 WBC RBC Hgb 15.9 H Hct 47.6 H MCV 100 H MCH 34 H MCHC RDW 15.4 H Plt Count Lymph % (Auto) [place] % (Auto) [place] # Seg Neutrophils % Seg Neuts % (Manual) Lymphocytes % (Manual) Monocytes % (Manual) Seg Neutrophils # Seg Neutrophils # Man Lymphocytes # (Manual) Monocytes # (Manual) Eosinophils # (Manual) PT INR APTT Heparin Anti-Xa Level POC ABG pH POC ABG pCO2 POC ABG pO2 Sodium Potassium Chloride 95.0 L Carbon Dioxide BUN 8 L Creatinine 0.6 L Glucose 126 H POC Glucose 140 H Calcium Phosphorus Magnesium 1.60 L Total Bilirubin AST Total Creatine Kinase CK-MB (CK-2) Total Protein Albumin Urine Creatinine Urine Chloride 02/28/17 02/28/17 02/28/17 07:55 11:57 15:40 WBC RBC Hgb Hct MCV MCH MCHC RDW Plt Count Lymph % (Auto) [place] % (Auto) [place] # Seg Neutrophils % Seg Neuts % (Manual) Lymphocytes % (Manual) Monocytes % (Manual) Seg Neutrophils # Seg Neutrophils # Man Lymphocytes # (Manual) Monocytes # (Manual) Eosinophils # (Manual) PT INR APTT Heparin Anti-Xa Level POC ABG pH POC ABG pCO2 POC ABG pO2 Sodium Potassium Chloride Carbon Dioxide BUN Creatinine Glucose POC Glucose 134 H 174 H 158 H Calcium Phosphorus Magnesium Total Bilirubin AST Total Creatine Kinase CK-MB (CK-2) Total Protein Albumin Urine Creatinine Urine Chloride 02/28/17 03/01/17 03/01/17 21:51 07:42 10:41 WBC RBC Hgb Hct MCV MCH MCHC RDW Plt Count Lymph % (Auto) [place] % (Auto) [place] # Seg Neutrophils % Seg Neuts % (Manual) Lymphocytes % (Manual) Monocytes % (Manual) Seg Neutrophils # Seg Neutrophils # Man Lymphocytes # (Manual) Monocytes # (Manual) Eosinophils # (Manual) PT INR APTT Heparin Anti-Xa Level POC ABG pH POC ABG pCO2 POC ABG pO2 Sodium Potassium Chloride Carbon Dioxide BUN Creatinine Glucose POC Glucose 127 H 146 H 176 H Calcium Phosphorus Magnesium Total Bilirubin AST Total Creatine Kinase CK-MB (CK-2) Total Protein Albumin Urine Creatinine Urine Chloride 03/01/17 03/01/17 03/02/17 15:37 23:35 08:11 WBC RBC Hgb Hct MCV MCH MCHC RDW Plt Count Lymph % (Auto) [place] % (Auto) [place] # Seg Neutrophils % Seg Neuts % (Manual) Lymphocytes % (Manual) Monocytes % (Manual) Seg Neutrophils # Seg Neutrophils # Man Lymphocytes # (Manual) Monocytes # (Manual) Eosinophils # (Manual) PT INR APTT Heparin Anti-Xa Level POC ABG pH POC ABG pCO2 POC ABG pO2 Sodium Potassium Chloride Carbon Dioxide BUN Creatinine Glucose POC Glucose 158 H 139 H 127 H Calcium Phosphorus Magnesium Total Bilirubin AST Total Creatine Kinase CK-MB (CK-2) Total Protein Albumin Urine Creatinine Urine Chloride 03/02/17 03/02/17 03/02/17 09:12 12:03 12:37 WBC 17.9 H RBC Hgb 16.3 H Hct 49.3 H MCV 101 H MCH 33 H MCHC RDW Plt Count Lymph % (Auto) 10.6 L [place] % (Auto) 13.4 H [place] # 2.4 H Seg Neutrophils % 75.2 H Seg Neuts % (Manual) Lymphocytes % (Manual) Monocytes % (Manual) Seg Neutrophils # 13.5 H Seg Neutrophils # Man Lymphocytes # (Manual) Monocytes # (Manual) Eosinophils # (Manual) PT INR APTT Heparin Anti-Xa Level POC ABG pH POC ABG pCO2 POC ABG pO2 Sodium 135 L Potassium Chloride 90.3 L Carbon Dioxide 32 H BUN Creatinine 0.6 L Glucose 124 H POC Glucose 145 H Calcium Phosphorus Magnesium Total Bilirubin AST Total Creatine Kinase CK-MB (CK-2) Total Protein Albumin Urine Creatinine Urine Chloride 03/02/17 03/02/17 03/03/17 16:09 22:41 03:59 WBC 14.7 H RBC Hgb Hct MCV 100 H MCH 33 H MCHC RDW Plt Count Lymph % (Auto) 10.9 L [place] % (Auto) 14.8 H [place] # 2.2 H Seg Neutrophils % 73.6 H Seg Neuts % (Manual) Lymphocytes % (Manual) Monocytes % (Manual) Seg Neutrophils # 10.8 H Seg Neutrophils # Man Lymphocytes # (Manual) Monocytes # (Manual) Eosinophils # (Manual) PT INR APTT Heparin Anti-Xa Level POC ABG pH POC ABG pCO2 POC ABG pO2 Sodium Potassium Chloride Carbon Dioxide BUN Creatinine Glucose POC Glucose 141 H 127 H Calcium Phosphorus Magnesium Total Bilirubin AST Total Creatine Kinase CK-MB (CK-2) Total Protein Albumin Urine Creatinine Urine Chloride 03/03/17 03/03/17 03/03/17 04:07 09:19 11:33 WBC RBC Hgb Hct MCV MCH MCHC RDW Plt Count Lymph % (Auto) [place] % (Auto) [place] # Seg Neutrophils % Seg Neuts % (Manual) Lymphocytes % (Manual) Monocytes % (Manual) Seg Neutrophils # Seg Neutrophils # Man Lymphocytes # (Manual) Monocytes # (Manual) Eosinophils # (Manual) PT INR APTT Heparin Anti-Xa Level POC ABG pH POC ABG pCO2 POC ABG pO2 Sodium Potassium 3.1 L D Chloride 91.1 L Carbon Dioxide BUN Creatinine 0.7 L Glucose 136 H POC Glucose 123 H 153 H Calcium Phosphorus Magnesium Total Bilirubin AST Total Creatine Kinase CK-MB (CK-2) Total Protein Albumin Urine Creatinine Urine Chloride 03/03/17 03/04/17 03/04/17 15:46 05:58 06:04 WBC 11.4 H RBC Hgb Hct 46.0 H MCV 101 H MCH 33 H MCHC RDW Plt Count Lymph % (Auto) [place] % (Auto) [place] # Seg Neutrophils % Seg Neuts % (Manual) 71.0 H Lymphocytes % (Manual) 13.0 L Monocytes % (Manual) 13.0 H Seg Neutrophils # Seg Neutrophils # Man 8.1 H Lymphocytes # (Manual) Monocytes # (Manual) 1.5 H Eosinophils # (Manual) PT INR APTT Heparin Anti-Xa Level POC ABG pH POC ABG pCO2 POC ABG pO2 Sodium Potassium 3.3 L Chloride 92.2 L Carbon Dioxide 33 H BUN Creatinine 0.6 L Glucose 133 H POC Glucose 131 H Calcium Phosphorus Magnesium Total Bilirubin AST Total Creatine Kinase CK-MB (CK-2) Total Protein Albumin Urine Creatinine Urine Chloride 03/04/17 03/04/17 03/04/17 07:54 11:24 16:00 WBC RBC Hgb Hct MCV MCH MCHC RDW Plt Count Lymph % (Auto) [place] % (Auto) [place] # Seg Neutrophils % Seg Neuts % (Manual) Lymphocytes % (Manual) Monocytes % (Manual) Seg Neutrophils # Seg Neutrophils # Man Lymphocytes # (Manual) Monocytes # (Manual) Eosinophils # (Manual) PT INR APTT Heparin Anti-Xa Level POC ABG pH POC ABG pCO2 POC ABG pO2 Sodium Potassium Chloride Carbon Dioxide BUN Creatinine Glucose POC Glucose 131 H 134 H 116 H Calcium Phosphorus Magnesium Total Bilirubin AST Total Creatine Kinase CK-MB (CK-2) Total Protein Albumin Urine Creatinine Urine Chloride 03/05/17 03/05/17 03/05/17 00:39 07:03 07:03 WBC 11.4 H RBC Hgb 15.4 H Hct 46.3 H MCV 100 H MCH 33 H MCHC RDW Plt Count Lymph % (Auto) [place] % (Auto) [place] # Seg Neutrophils % Seg Neuts % (Manual) Lymphocytes % (Manual) Monocytes % (Manual) 20.0 H Seg Neutrophils # Seg Neutrophils # Man Lymphocytes # (Manual) Monocytes # (Manual) 2.3 H Eosinophils # (Manual) PT INR APTT Heparin Anti-Xa Level POC ABG pH POC ABG pCO2 POC ABG pO2 Sodium Potassium 3.3 L Chloride 95.2 L Carbon Dioxide 31 H BUN Creatinine 0.6 L Glucose 137 H POC Glucose 116 H Calcium Phosphorus Magnesium Total Bilirubin AST Total Creatine Kinase CK-MB (CK-2) Total Protein Albumin Urine Creatinine Urine Chloride 03/05/17 03/05/17 03/05/17 08:05 12:15 16:07 WBC RBC Hgb Hct MCV MCH MCHC RDW Plt Count Lymph % (Auto) [place] % (Auto) [place] # Seg Neutrophils % Seg Neuts % (Manual) Lymphocytes % (Manual) Monocytes % (Manual) Seg Neutrophils # Seg Neutrophils # Man Lymphocytes # (Manual) Monocytes # (Manual) Eosinophils # (Manual) PT INR APTT Heparin Anti-Xa Level POC ABG pH POC ABG pCO2 POC ABG pO2 Sodium Potassium Chloride Carbon Dioxide BUN Creatinine Glucose POC Glucose 134 H 150 H 113 H Calcium Phosphorus Magnesium Total Bilirubin AST Total Creatine Kinase CK-MB (CK-2) Total Protein Albumin Urine Creatinine Urine Chloride 03/06/17 03/06/17 03/06/17 04:45 04:50 11:50 WBC 11.8 H RBC Hgb 15.7 H Hct 47.1 H MCV 98 H MCH 33 H MCHC RDW Plt Count Lymph % (Auto) [place] % (Auto) [place] # Seg Neutrophils % Seg Neuts % (Manual) Lymphocytes % (Manual) 13.0 L Monocytes % (Manual) 17.0 H Seg Neutrophils # Seg Neutrophils # Man Lymphocytes # (Manual) Monocytes # (Manual) 2.0 H Eosinophils # (Manual) PT INR APTT Heparin Anti-Xa Level POC ABG pH POC ABG pCO2 POC ABG pO2 Sodium Potassium 3.2 L Chloride 94.9 L Carbon Dioxide 31 H BUN Creatinine 0.6 L Glucose 125 H POC Glucose 124 H Calcium Phosphorus 4.60 H Magnesium Total Bilirubin AST Total Creatine Kinase CK-MB (CK-2) Total Protein Albumin Urine Creatinine Urine Chloride 03/06/17 03/06/17 03/07/17 15:43 22:07 04:30 WBC RBC Hgb Hct MCV MCH MCHC RDW Plt Count Lymph % (Auto) [place] % (Auto) [place] # Seg Neutrophils % Seg Neuts % (Manual) Lymphocytes % (Manual) Monocytes % (Manual) Seg Neutrophils # Seg Neutrophils # Man Lymphocytes # (Manual) Monocytes # (Manual) Eosinophils # (Manual) PT INR APTT Heparin Anti-Xa Level POC ABG pH POC ABG pCO2 POC ABG pO2 Sodium Potassium 3.4 L Chloride 95.1 L Carbon Dioxide BUN Creatinine 0.6 L Glucose 129 H POC Glucose 121 H 109 H Calcium Phosphorus Magnesium Total Bilirubin AST Total Creatine Kinase CK-MB (CK-2) Total Protein Albumin Urine Creatinine Urine Chloride 03/07/17 03/07/17 03/07/17 04:37 12:02 15:03 WBC 11.3 H RBC Hgb Hct MCV 99 H MCH 34 H MCHC RDW Plt Count Lymph % (Auto) [place] % (Auto) 14.6 H [place] # 1.6 H Seg Neutrophils % Seg Neuts % (Manual) Lymphocytes % (Manual) Monocytes % (Manual) Seg Neutrophils # Seg Neutrophils # Man Lymphocytes # (Manual) Monocytes # (Manual) Eosinophils # (Manual) PT INR APTT Heparin Anti-Xa Level POC ABG pH POC ABG pCO2 POC ABG pO2 Sodium Potassium Chloride Carbon Dioxide BUN Creatinine Glucose POC Glucose 126 H 108 H Calcium Phosphorus Magnesium Total Bilirubin AST Total Creatine Kinase CK-MB (CK-2) Total Protein Albumin Urine Creatinine Urine Chloride 03/08/17 03/08/17 03/08/17 04:58 04:58 08:22 WBC RBC Hgb 16.4 H Hct 49.3 H MCV 99 H MCH 33 H MCHC RDW Plt Count Lymph % (Auto) [place] % (Auto) 12.1 H [place] # 1.2 H Seg Neutrophils % 71.4 H Seg Neuts % (Manual) Lymphocytes % (Manual) Monocytes % (Manual) Seg Neutrophils # Seg Neutrophils # Man Lymphocytes # (Manual) Monocytes # (Manual) Eosinophils # (Manual) PT INR APTT Heparin Anti-Xa Level POC ABG pH POC ABG pCO2 POC ABG pO2 Sodium 136 L Potassium Chloride 93.7 L Carbon Dioxide BUN Creatinine 0.5 L Glucose 127 H POC Glucose 106 H Calcium Phosphorus Magnesium Total Bilirubin AST 50 H Total Creatine Kinase CK-MB (CK-2) Total Protein Albumin 2.7 L Urine Creatinine Urine Chloride 03/08/17 03/08/17 03/09/17 12:14 17:50 05:26 WBC 11.8 H RBC Hgb 16.3 H Hct 49.1 H MCV 98 H MCH 33 H MCHC RDW Plt Count Lymph % (Auto) [place] % (Auto) 10.8 H [place] # 1.3 H Seg Neutrophils % 71.8 H Seg Neuts % (Manual) Lymphocytes % (Manual) Monocytes % (Manual) Seg Neutrophils # 8.4 H Seg Neutrophils # Man Lymphocytes # (Manual) Monocytes # (Manual) Eosinophils # (Manual) PT INR APTT Heparin Anti-Xa Level POC ABG pH POC ABG pCO2 POC ABG pO2 Sodium Potassium Chloride Carbon Dioxide BUN Creatinine Glucose POC Glucose 115 H 117 H Calcium Phosphorus Magnesium Total Bilirubin AST Total Creatine Kinase CK-MB (CK-2) Total Protein Albumin Urine Creatinine Urine Chloride 03/09/17 03/09/17 03/09/17 05:26 12:39 16:19 WBC RBC Hgb Hct MCV MCH MCHC RDW Plt Count Lymph % (Auto) [place] % (Auto) [place] # Seg Neutrophils % Seg Neuts % (Manual) Lymphocytes % (Manual) Monocytes % (Manual) Seg Neutrophils # Seg Neutrophils # Man Lymphocytes # (Manual) Monocytes # (Manual) Eosinophils # (Manual) PT INR APTT Heparin Anti-Xa Level POC ABG pH POC ABG pCO2 POC ABG pO2 Sodium Potassium Chloride 94.7 L Carbon Dioxide BUN Creatinine 0.7 L Glucose 115 H POC Glucose 111 H 116 H Calcium Phosphorus Magnesium Total Bilirubin AST Total Creatine Kinase CK-MB (CK-2) Total Protein Albumin Urine Creatinine Urine Chloride 03/09/17 03/10/17 03/10/17 22:48 08:27 11:46 WBC RBC Hgb Hct MCV MCH MCHC RDW Plt Count Lymph % (Auto) [place] % (Auto) [place] # Seg Neutrophils % Seg Neuts % (Manual) Lymphocytes % (Manual) Monocytes % (Manual) Seg Neutrophils # Seg Neutrophils # Man Lymphocytes # (Manual) Monocytes # (Manual) Eosinophils # (Manual) PT INR APTT Heparin Anti-Xa Level POC ABG pH POC ABG pCO2 POC ABG pO2 Sodium Potassium Chloride Carbon Dioxide BUN Creatinine Glucose POC Glucose 106 H 107 H 116 H Calcium Phosphorus Magnesium Total Bilirubin AST Total Creatine Kinase CK-MB (CK-2) Total Protein Albumin Urine Creatinine Urine Chloride 03/10/17 03/10/17 03/11/17 17:01 21:46 08:10 WBC RBC Hgb Hct MCV MCH MCHC RDW Plt Count Lymph % (Auto) [place] % (Auto) [place] # Seg Neutrophils % Seg Neuts % (Manual) Lymphocytes % (Manual) Monocytes % (Manual) Seg Neutrophils # Seg Neutrophils # Man Lymphocytes # (Manual) Monocytes # (Manual) Eosinophils # (Manual) PT INR APTT Heparin Anti-Xa Level POC ABG pH POC ABG pCO2 POC ABG pO2 Sodium Potassium Chloride Carbon Dioxide BUN Creatinine Glucose POC Glucose 115 H 135 H 109 H Calcium Phosphorus Magnesium Total Bilirubin AST Total Creatine Kinase CK-MB (CK-2) Total Protein Albumin Urine Creatinine Urine Chloride 03/11/17 03/11/17 03/11/17 12:12 17:45 22:14 WBC RBC Hgb Hct MCV MCH MCHC RDW Plt Count Lymph % (Auto) [place] % (Auto) [place] # Seg Neutrophils % Seg Neuts % (Manual) Lymphocytes % (Manual) Monocytes % (Manual) Seg Neutrophils # Seg Neutrophils # Man Lymphocytes # (Manual) Monocytes # (Manual) Eosinophils # (Manual) PT INR APTT Heparin Anti-Xa Level POC ABG pH POC ABG pCO2 POC ABG pO2 Sodium Potassium Chloride Carbon Dioxide BUN Creatinine Glucose POC Glucose 136 H 126 H 132 H Calcium Phosphorus Magnesium Total Bilirubin AST Total Creatine Kinase CK-MB (CK-2) Total Protein Albumin Urine Creatinine Urine Chloride 03/12/17 03/12/17 03/12/17 08:44 08:44 12:56 WBC 14.9 H RBC 5.04 H Hgb 16.1 H Hct 48.8 H MCV 97 H MCH MCHC RDW Plt Count Lymph % (Auto) 11.7 L [place] % (Auto) 11.6 H [place] # 1.7 H Seg Neutrophils % 75.5 H Seg Neuts % (Manual) Lymphocytes % (Manual) Monocytes % (Manual) Seg Neutrophils # 11.2 H Seg Neutrophils # Man Lymphocytes # (Manual) Monocytes # (Manual) Eosinophils # (Manual) PT INR APTT Heparin Anti-Xa Level POC ABG pH POC ABG pCO2 POC ABG pO2 Sodium Potassium 3.2 L Chlor[place] 93.4 L Carbon Dioxide BUN Creatinine 0.6 L Glucose 121 H POC Glucose 129 H Calcium Phosphorus Magnesium Total Bilirubin 1.30 H AST Total Creatine Kinase CK-MB (CK-2) Total Protein Albumin 3.2 L Urine Creatinine Urine Chloride 03/12/17 03/13/17 03/13/17 17:13 09:05 11:36 WBC RBC Hgb Hct MCV MCH MCHC RDW Plt Count Lymph % (Auto) [place] % (Auto) [place] # Seg Neutrophils % Seg Neuts % (Manual) Lymphocytes % (Manual) Monocytes % (Manual) Seg Neutrophils # Seg Neutrophils # Man Lymphocytes # (Manual) Monocytes # (Manual) Eosinophils # (Manual) PT INR APTT Heparin Anti-Xa Level POC ABG pH POC ABG pCO2 POC ABG pO2 Sodium Potassium Chloride Carbon Dioxide BUN Creatinine Glucose POC Glucose 161 H 110 H 126 H Calcium Phosphorus Magnesium Total Bilirubin AST Total Creatine Kinase CK-MB (CK-2) Total Protein Albumin Urine Creatinine Urine Chloride 03/13/17 03/13/17 03/14/17 16:17 21:43 08:40 WBC RBC Hgb Hct MCV MCH MCHC RDW Plt Count Lymph % (Auto) [place] % (Auto) [place] # Seg Neutrophils % Seg Neuts % (Manual) Lymphocytes % (Manual) Monocytes % (Manual) Seg Neutrophils # Seg Neutrophils # Man Lymphocytes # (Manual) Monocytes # (Manual) Eosinophils # (Manual) PT INR APTT Heparin Anti-Xa Level POC ABG pH POC ABG pCO2 POC ABG pO2 Sodium Potassium Chloride Carbon Dioxide BUN Creatinine Glucose POC Glucose 126 H 115 H 106 H Calcium Phosphorus Magnesium Total Bilirubin AST Total Creatine Kinase CK-MB (CK-2) Total Protein Albumin Urine Creatinine Urine Chloride 03/14/17 03/14/17 03/14/17 12:01 17:39 20:30 WBC RBC Hgb Hct MCV MCH MCHC RDW Plt Count Lymph % (Auto) [place] % (Auto) [place] # Seg Neutrophils % Seg Neuts % (Manual) Lymphocytes % (Manual) Monocytes % (Manual) Seg Neutrophils # Seg Neutrophils # Man Lymphocytes # (Manual) Monocytes # (Manual) Eosinophils # (Manual) PT INR APTT Heparin Anti-Xa Level POC ABG pH POC ABG pCO2 POC ABG pO2 Sodium Potassium Chloride Carbon Dioxide BUN Creatinine Glucose POC Glucose 116 H 192 H 122 H Calcium Phosphorus Magnesium Total Bilirubin AST Total Creatine Kinase CK-MB (CK-2) Total Protein Albumin Urine Creatinine Urine Chloride 03/15/17 03/15/17 03/15/17 01:12 06:49 08:46 WBC 23.9 H RBC Hgb 16.1 H Hct 49.4 H MCV 100 H D MCH 33 H MCHC RDW Plt Count Lymph % (Auto) [place] % (Auto) [place] # Seg Neutrophils % Seg Neuts % (Manual) 92.0 H Lymphocytes % (Manual) 4.0 L Monocytes % (Manual) Seg Neutrophils # Seg Neutrophils # Man 22.0 H Lymphocytes # (Manual) 1.0 L Monocytes # (Manual) 1.0 H Eosinophils # (Manual) PT INR APTT Heparin Anti-Xa Level POC ABG pH POC ABG pCO2 POC ABG pO2 Sodium Potassium Chloride 91.0 L Carbon Dioxide 33 H BUN 45 H Creatinine Glucose 160 H POC Glucose 147 H Calcium Phosphorus Magnesium Total Bilirubin AST 41 H Total Creatine Kinase CK-MB (CK-2) Total Protein Albumin 3.0 L Urine Creatinine Urine Chloride 03/15/17 03/15/17 03/15/17 12:11 16:00 20:51 WBC RBC Hgb Hct MCV MCH MCHC RDW Plt Count Lymph % (Auto) [place] % (Auto) [place] # Seg Neutrophils % Seg Neuts % (Manual) Lymphocytes % (Manual) Monocytes % (Manual) Seg Neutrophils # Seg Neutrophils # Man Lymphocytes # (Manual) Monocytes # (Manual) Eosinophils # (Manual) PT INR APTT Heparin Anti-Xa Level POC ABG pH POC ABG pCO2 POC ABG pO2 Sodium Potassium Chloride Carbon Dioxide BUN Creatinine Glucose POC Glucose 144 H 134 H 148 H Calcium Phosphorus Magnesium Total Bilirubin AST Total Creatine Kinase CK-MB (CK-2) Total Protein Albumin Urine Creatinine Urine Chloride 03/16/17 03/16/17 03/16/17 05:59 06:02 09:15 WBC 20.9 H RBC Hgb Hct 45.8 H MCV 99 H MCH 33 H MCHC RDW Plt Count Lymph % (Auto) [place] % (Auto) [place] # Seg Neutrophils % Seg Neuts % (Manual) 92.0 H Lymphocytes % (Manual) 4.0 L Monocytes % (Manual) Seg Neutrophils # Seg Neutrophils # Man 19.2 H Lymphocytes # (Manual) 0.8 L Monocytes # (Manual) Eosinophils # (Manual) PT INR APTT Heparin Anti-Xa Level POC ABG pH POC ABG pCO2 POC ABG pO2 Sodium Potassium Chloride 92.3 L Carbon Dioxide 34 H BUN 44 H Creatinine Glucose 150 H POC Glucose 127 H Calcium Phosphorus Magnesium Total Bilirubin AST Total Creatine Kinase CK-MB (CK-2) Total Protein Albumin Urine Creatinine Urine Chloride 03/16/17 03/16/17 03/17/17 11:59 18:08 07:06 WBC RBC Hgb Hct MCV MCH MCHC RDW Plt Count Lymph % (Auto) [place] % (Auto) [place] # Seg Neutrophils % Seg Neuts % (Manual) Lymphocytes % (Manual) Monocytes % (Manual) Seg Neutrophils # Seg Neutrophils # Man Lymphocytes # (Manual) Monocytes # (Manual) Eosinophils # (Manual) PT INR APTT Heparin Anti-Xa Level POC ABG pH POC ABG pCO2 POC ABG pO2 Sodium Potassium Chloride 93.3 L Carbon Dioxide 35 H BUN 31 H Creatinine Glucose 132 H POC Glucose 147 H 138 H Calcium Phosphorus Magnesium Total Bilirubin AST Total Creatine Kinase CK-MB (CK-2) Total Protein Albumin Urine Creatinine Urine Chloride 03/17/17 03/17/17 03/17/17 07:06 07:14 12:35 WBC 16.6 H RBC Hgb 15.6 H Hct 47.5 H MCV 99 H MCH 33 H MCHC RDW Plt Count Lymph % (Auto) 8.4 L [place] % (Auto) 8.1 H [place] # 1.3 H Seg Neutrophils % 81.8 H Seg Neuts % (Manual) Lymphocytes % (Manual) Monocytes % (Manual) Seg Neutrophils # 13.6 H Seg Neutrophils # Man Lymphocytes # (Manual) Monocytes # (Manual) Eosinophils # (Manual) PT INR APTT Heparin Anti-Xa Level POC ABG pH POC ABG pCO2 POC ABG pO2 Sodium Potassium Chloride Carbon Dioxide BUN Creatinine Glucose POC Glucose 119 H 132 H Calcium Phosphorus Magnesium Total Bilirubin AST Total Creatine Kinase CK-MB (CK-2) Total Protein Albumin Urine Creatinine Urine Chloride 03/18/17 03/18/17 03/18/17 05:05 06:15 06:15 WBC 15.8 H RBC Hgb 16.5 H Hct 49.3 H MCV 99 H MCH 33 H MCHC RDW Plt Count Lymph % (Auto) [place] % (Auto) [place] # Seg Neutrophils % Seg Neuts % (Manual) 88.0 H Lymphocytes % (Manual) 2.0 L Monocytes % (Manual) 8.0 H Seg Neutrophils # Seg Neutrophils # Man 13.9 H Lymphocytes # (Manual) 0.3 L Monocytes # (Manual) 1.3 H Eosinophils # (Manual) PT INR APTT Heparin Anti-Xa Level POC ABG pH POC ABG pCO2 72.9 H POC ABG pO2 168 H Sodium 147 H Potassium 3.5 L Chloride 95.3 L Carbon Dioxide 37 H BUN 29 H Creatinine Glucose 155 H POC Glucose Calcium Phosphorus Magnesium Total Bilirubin AST Total Creatine Kinase CK-MB (CK-2) Total Protein Albumin Urine Creatinine Urine Chloride 03/18/17 03/18/17 03/18/17 08:27 11:24 11:31 WBC RBC Hgb Hct MCV MCH MCHC RDW Plt Count Lymph % (Auto) [place] % (Auto) [place] # Seg Neutrophils % Seg Neuts % (Manual) Lymphocytes % (Manual) Monocytes % (Manual) Seg Neutrophils # Seg Neutrophils # Man Lymphocytes # (Manual) Monocytes # (Manual) Eosinophils # (Manual) PT INR APTT Heparin Anti-Xa Level POC ABG pH 7.530 H POC ABG pCO2 POC ABG pO2 60 L Sodium Potassium Chloride Carbon Dioxide BUN Creatinine Glucose POC Glucose 123 H 176 H Calcium Phosphorus Magnesium Total Bilirubin AST Total Creatine Kinase CK-MB (CK-2) Total Protein Albumin Urine Creatinine Urine Chloride 03/18/17 03/18/17 03/18/17 14:10 15:24 17:23 WBC RBC Hgb 15.4 H Hct 46.4 H MCV MCH MCHC RDW Plt Count Lymph % (Auto) [place] % (Auto) [place] # Seg Neutrophils % Seg Neuts % (Manual) Lymphocytes % (Manual) Monocytes % (Manual) Seg Neutrophils # Seg Neutrophils # Man Lymphocytes # (Manual) Monocytes # (Manual) Eosinophils # (Manual) PT INR APTT Heparin Anti-Xa Level POC ABG pH POC ABG pCO2 POC ABG pO2 Sodium Potassium Chloride 94.5 L Carbon Dioxide 33 H BUN 33 H Creatinine 1.6 H Glucose 241 H POC Glucose 244 H Calcium Phosphorus Magnesium Total Bilirubin AST Total Creatine Kinase CK-MB (CK-2) Total Protein Albumin 3.0 L Urine Creatinine Urine Chloride 03/18/17 03/18/17 03/19/17 17:23 21:33 03:54 WBC 25.4 H RBC Hgb Hct MCV 98 H MCH MCHC RDW Plt Count Lymph % (Auto) [place] % (Auto) [place] # Seg Neutrophils % Seg Neuts % (Manual) 83.0 H Lymphocytes % (Manual) 4.5 L Monocytes % (Manual) 8.0 H Seg Neutrophils # Seg Neutrophils # Man 21.1 H Lymphocytes # (Manual) 1.1 L Monocytes # (Manual) 2.0 H Eosinophils # (Manual) PT 17.1 H INR 1.40 H APTT Heparin Anti-Xa Level POC ABG pH POC ABG pCO2 POC ABG pO2 Sodium Potassium Chloride Carbon Dioxide BUN Creatinine Glucose POC Glucose 164 H Calcium Phosphorus Magnesium Total Bilirubin AST Total Creatine Kinase CK-MB (CK-2) Total Protein Albumin Urine Creatinine Urine Chloride 03/19/17 03/19/17 03/19/17 03:54 06:55 06:55 WBC RBC Hgb Hct MCV MCH MCHC RDW Plt Count Lymph % (Auto) [place] % (Auto) [place] # Seg Neutrophils % Seg Neuts % (Manual) Lymphocytes % (Manual) Monocytes % (Manual) Seg Neutrophils # Seg Neutrophils # Man Lymphocytes # (Manual) Monocytes # (Manual) Eosinophils # (Manual) PT INR APTT Heparin Anti-Xa Level 0.29 L POC ABG pH POC ABG pCO2 POC ABG pO2 Sodium 146 H Potassium 3.4 L Chloride 97.8 L Carbon Dioxide 33 H BUN 30 H Creatinine Glucose 134 H POC Glucose Calcium Phosphorus Magnesium 1.60 L Total Bilirubin AST Total Creatine Kinase CK-MB (CK-2) Total Protein Albumin Urine Creatinine Urine Chloride 03/19/17 03/19/17 03/19/17 08:01 12:56 14:54 WBC RBC Hgb Hct MCV MCH MCHC RDW Plt Count Lymph % (Auto) [place] % (Auto) [place] # Seg Neutrophils % Seg Neuts % (Manual) Lymphocytes % (Manual) Monocytes % (Manual) Seg Neutrophils # Seg Neutrophils # Man Lymphocytes # (Manual) Monocytes # (Manual) Eosinophils # (Manual) PT INR APTT Heparin Anti-Xa Level POC ABG pH POC ABG pCO2 57.8 H POC ABG pO2 71 L Sodium Potassium Chloride Carbon Dioxide BUN Creatinine Glucose POC Glucose 139 H 167 H Calcium Phosphorus Magnesium Total Bilirubin AST Total Creatine Kinase CK-MB (CK-2) Total Protein Albumin Urine Creatinine Urine Chloride 03/19/17 03/19/17 03/20/17 15:53 21:04 03:36 WBC RBC Hgb 15.3 H Hct 48.1 H MCV MCH MCHC RDW Plt Count Lymph % (Auto) [place] % (Auto) [place] # Seg Neutrophils % Seg Neuts % (Manual) Lymphocytes % (Manual) Monocytes % (Manual) Seg Neutrophils # Seg Neutrophils # Man Lymphocytes # (Manual) Monocytes # (Manual) Eosinophils # (Manual) PT INR APTT Heparin Anti-Xa Level POC ABG pH POC ABG pCO2 POC ABG pO2 Sodium Potassium Chloride Carbon Dioxide BUN Creatinine Glucose POC Glucose 172 H 159 H Calcium Phosphorus Magnesium Total Bilirubin AST Total Creatine Kinase CK-MB (CK-2) Total Protein Albumin Urine Creatinine Urine Chloride 03/20/17 03/20/17 03/20/17 07:45 12:02 14:07 WBC RBC Hgb Hct MCV MCH MCHC RDW Plt Count Lymph % (Auto) [place] % (Auto) [place] # Seg Neutrophils % Seg Neuts % (Manual) Lymphocytes % (Manual) Monocytes % (Manual) Seg Neutrophils # Seg Neutrophils # Man Lymphocytes # (Manual) Monocytes # (Manual) Eosinophils # (Manual) PT INR APTT Heparin Anti-Xa Level POC ABG pH 7.312 L POC ABG pCO2 68.3 H POC ABG pO2 47 L Sodium Potassium Chloride Carbon Dioxide BUN Creatinine Glucose POC Glucose 160 H 142 H Calcium Phosphorus Magnesium Total Bilirubin AST Total Creatine Kinase CK-MB (CK-2) Total Protein Albumin Urine Creatinine Urine Chloride 03/20/17 03/20/17 03/20/17 15:57 15:59 19:50 WBC RBC Hgb Hct MCV MCH MCHC RDW Plt Count Lymph % (Auto) [place] % (Auto) [place] # Seg Neutrophils % Seg Neuts % (Manual) Lymphocytes % (Manual) Monocytes % (Manual) Seg Neutrophils # Seg Neutrophils # Man Lymphocytes # (Manual) Monocytes # (Manual) Eosinophils # (Manual) PT INR APTT Heparin Anti-Xa Level POC ABG pH 7.214 L POC ABG pCO2 82.8 H 58.7 H POC ABG pO2 69 L Sodium Potassium Chloride Carbon Dioxide BUN Creatinine Glucose POC Glucose 149 H Calcium Phosphorus Magnesium Total Bilirubin AST Total Creatine Kinase CK-MB (CK-2) Total Protein Albumin Urine Creatinine Urine Chloride 03/20/17 03/20/17 03/21/17 21:19 23:34 04:18 WBC RBC Hgb Hct MCV MCH MCHC RDW Plt Count Lymph % (Auto) [place] % (Auto) [place] # Seg Neutrophils % Seg Neuts % (Manual) Lymphocytes % (Manual) Monocytes % (Manual) Seg Neutrophils # Seg Neutrophils # Man Lymphocytes # (Manual) Monocytes # (Manual) Eosinophils # (Manual) PT INR APTT Heparin Anti-Xa Level 0.20 L POC ABG pH POC ABG pCO2 48.6 H POC ABG pO2 79 L Sodium Potassium Chloride Carbon Dioxide BUN Creatinine Glucose POC Glucose 206 H Calcium Phosphorus Magnesium Total Bilirubin AST Total Creatine Kinase CK-MB (CK-2) Total Protein Albumin Urine Creatinine Urine Chloride 03/21/17 03/21/17 03/21/17 04:21 04:21 05:23 WBC RBC Hgb Hct MCV MCH MCHC RDW Plt Count Lymph % (Auto) [place] % (Auto) [place] # Seg Neutrophils % Seg Neuts % (Manual) Lymphocytes % (Manual) Monocytes % (Manual) Seg Neutrophils # Seg Neutrophils # Man Lymphocytes # (Manual) Monocytes # (Manual) Eosinophils # (Manual) PT INR APTT Heparin Anti-Xa Level 0.24 L POC ABG pH POC ABG pCO2 POC ABG pO2 Sodium 147 H Potassium Chloride Carbon Dioxide BUN 42 H Creatinine 2.6 H D Glucose 209 H POC Glucose 181 H Calcium 7.9 L Phosphorus Magnesium Total Bilirubin AST Total Creatine Kinase CK-MB (CK-2) Total Protein Albumin Urine Creatinine Urine Chloride 03/21/17 03/21/17 03/21/17 13:16 13:16 14:43 WBC 27.8 H RBC Hgb Hct MCV 101 H D MCH MCHC RDW Plt Count Lymph % (Auto) [place] % (Auto) [place] # Seg Neutrophils % Seg Neuts % (Manual) 76.0 H Lymphocytes % (Manual) 7.0 L Monocytes % (Manual) Seg Neutrophils # Seg Neutrophils # Man 21.1 H Lymphocytes # (Manual) Monocytes # (Manual) 1.1 H Eosinophils # (Manual) PT INR APTT Heparin Anti-Xa Level 0.25 L POC ABG pH 7.474 H POC ABG pCO2 POC ABG pO2 59 L Sodium Potassium Chloride Carbon Dioxide BUN Creatinine Glucose POC Glucose Calcium Phosphorus Magnesium Total Bilirubin AST Total Creatine Kinase CK-MB (CK-2) Total Protein Albumin Urine Creatinine Urine Chloride 03/21/17 03/21/17 03/21/17 17:00 18:20 23:40 WBC RBC Hgb Hct MCV MCH MCHC RDW Plt Count Lymph % (Auto) [place] % (Auto) [place] # Seg Neutrophils % Seg Neuts % (Manual) Lymphocytes % (Manual) Monocytes % (Manual) Seg Neutrophils # Seg Neutrophils # Man Lymphocytes # (Manual) Monocytes # (Manual) Eosinophils # (Manual) PT INR APTT Heparin Anti-Xa Level POC ABG pH POC ABG pCO2 POC ABG pO2 Sodium Potassium Chloride Carbon Dioxide BUN 48 H Creatinine 3.2 H Glucose 135 H POC Glucose 152 H 136 H Calcium 6.8 L Phosphorus Magnesium Total Bilirubin AST Total Creatine Kinase CK-MB (CK-2) Total Protein 5.3 L D Albumin 1.7 L Urine Creatinine Urine Chloride 03/22/17 03/22/17 03/22/17 04:30 04:30 04:30 WBC 29.3 H RBC Hgb Hct MCV 100 H MCH MCHC 31 L RDW 15.3 H Plt Count Lymph % (Auto) [place] % (Auto) [place] # Seg Neutrophils % Seg Neuts % (Manual) Lymphocytes % (Manual) Monocytes % (Manual) Seg Neutrophils # Seg Neutrophils # Man Lymphocytes # (Manual) Monocytes # (Manual) Eosinophils # (Manual) PT INR APTT Heparin Anti-Xa Level 0.29 L POC ABG pH POC ABG pCO2 POC ABG pO2 Sodium Potassium Chloride Carbon Dioxide BUN 60 H Creatinine 4.3 H Glucose 118 H POC Glucose Calcium 8.2 L D Phosphorus Magnesium Total Bilirubin AST Total Creatine Kinase CK-MB (CK-2) Total Protein Albumin 1.8 L Urine Creatinine Urine Chloride 03/22/17 03/22/17 03/22/17 05:08 07:00 07:00 WBC 24.8 H RBC Hgb Hct MCV 100 H MCH MCHC RDW Plt Count Lymph % (Auto) [place] % (Auto) [place] # Seg Neutrophils % Seg Neuts % (Manual) 94.0 H Lymphocytes % (Manual) 0 L Monocytes % (Manual) Seg Neutrophils # Seg Neutrophils # Man 23.3 H Lymphocytes # (Manual) 0.0 L Monocytes # (Manual) Eosinophils # (Manual) 0.7 H PT INR APTT Heparin Anti-Xa Level POC ABG pH POC ABG pCO2 POC ABG pO2 Sodium 147 H Potassium Chloride 109.2 H Carbon Dioxide BUN 58 H Creatinine 4.1 H Glucose 117 H POC Glucose 124 H Calcium 7.4 L Phosphorus Magnesium Total Bilirubin AST Total Creatine Kinase CK-MB (CK-2) Total Protein Albumin Urine Creatinine Urine Chloride 03/22/17 03/22/17 03/22/17 08:40 11:37 14:30 WBC RBC Hgb Hct MCV MCH MCHC RDW Plt Count Lymph % (Auto) [place] % (Auto) [place] # Seg Neutrophils % Seg Neuts % (Manual) Lymphocytes % (Manual) Monocytes % (Manual) Seg Neutrophils # Seg Neutrophils # Man Lymphocytes # (Manual) Monocytes # (Manual) Eosinophils # (Manual) PT 16.2 H INR 1.31 H APTT 68.9 H* Heparin Anti-Xa Level < 0.10 L POC ABG pH POC ABG pCO2 POC ABG pO2 Sodium Potassium Chloride Carbon Dioxide BUN Creatinine Glucose POC Glucose 159 H Calcium Phosphorus Magnesium Total Bilirubin AST Total Creatine Kinase CK-MB (CK-2) Total Protein Albumin Urine Creatinine Urine Chloride 03/22/17 03/22/17 03/22/17 17:53 21:44 23:54 WBC RBC Hgb 11.6 L Hct 33.1 L MCV MCH MCHC RDW Plt Count Lymph % (Auto) [place] % (Auto) [place] # Seg Neutrophils % Seg Neuts % (Manual) Lymphocytes % (Manual) Monocytes % (Manual) Seg Neutrophils # Seg Neutrophils # Man Lymphocytes # (Manual) Monocytes # (Manual) Eosinophils # (Manual) PT INR APTT Heparin Anti-Xa Level POC ABG pH POC ABG pCO2 POC ABG pO2 Sodium Potassium Chloride Carbon Dioxide BUN Creatinine Glucose POC Glucose 142 H 131 H Calcium Phosphorus Magnesium Total Bilirubin AST Total Creatine Kinase CK-MB (CK-2) Total Protein Albumin Urine Creatinine Urine Chloride 03/23/17 03/23/17 03/23/17 04:08 05:29 06:34 WBC RBC Hgb Hct MCV MCH MCHC RDW Plt Count Lymph % (Auto) [place] % (Auto) [place] # Seg Neutrophils % Seg Neuts % (Manual) Lymphocytes % (Manual) Monocytes % (Manual) Seg Neutrophils # Seg Neutrophils # Man Lymphocytes # (Manual) Monocytes # (Manual) Eosinophils # (Manual) PT INR APTT Heparin Anti-Xa Level POC ABG pH POC ABG pCO2 POC ABG pO2 75 L Sodium Potassium Chloride Carbon Dioxide 21 L BUN 85 H Creatinine 6.0 H Glucose 134 H POC Glucose 134 H Calcium 8.1 L Phosphorus Magnesium Total Bilirubin AST Total Creatine Kinase CK-MB (CK-2) Total Protein Albumin Urine Creatinine Urine Chloride 03/23/17 03/23/17 03/23/17 12:09 17:20 17:52 WBC RBC Hgb Hct MCV MCH MCHC RDW Plt Count Lymph % (Auto) [place] % (Auto) [place] # Seg Neutrophils % Seg Neuts % (Manual) Lymphocytes % (Manual) Monocytes % (Manual) Seg Neutrophils # Seg Neutrophils # Man Lymphocytes # (Manual) Monocytes # (Manual) Eosinophils # (Manual) PT INR APTT Heparin Anti-Xa Level 1.39 H POC ABG pH POC ABG pCO2 POC ABG pO2 Sodium Potassium Chloride Carbon Dioxide BUN Creatinine Glucose POC Glucose 133 H 151 H Calcium Phosphorus Magnesium Total Bilirubin AST Total Creatine Kinase CK-MB (CK-2) Total Protein Albumin Urine Creatinine Urine Chloride 03/23/17 03/24/17 03/24/17 23:59 03:15 03:15 WBC 23.9 H RBC 3.58 L Hgb 11.6 L Hct 34.6 L MCV 97 H D MCH MCHC RDW Plt Count 122 L Lymph % (Auto) [place] % (Auto) [place] # Seg Neutrophils % Seg Neuts % (Manual) Lymphocytes % (Manual) Monocytes % (Manual) Seg Neutrophils # Seg Neutrophils # Man Lymphocytes # (Manual) Monocytes # (Manual) Eosinophils # (Manual) PT INR APTT Heparin Anti-Xa Level POC ABG pH POC ABG pCO2 POC ABG pO2 Sodium 135 L Potassium Chloride 95.0 L Carbon Dioxide BUN 71 H Creatinine 5.2 H Glucose 123 H POC Glucose 124 H Calcium 8.0 L Phosphorus Magnesium Total Bilirubin AST Total Creatine Kinase CK-MB (CK-2) Total Protein Albumin Urine Creatinine Urine Chloride 03/24/17 03/24/17 03/24/17 03:15 04:53 11:58 WBC RBC Hgb Hct MCV MCH MCHC RDW Plt Count Lymph % (Auto) [place] % (Auto) [place] # Seg Neutrophils % Seg Neuts % (Manual) Lymphocytes % (Manual) Monocytes % (Manual) Seg Neutrophils # Seg Neutrophils # Man Lymphocytes # (Manual) Monocytes # (Manual) Eosinophils # (Manual) PT INR APTT Heparin Anti-Xa Level 0.20 L POC ABG pH POC ABG pCO2 POC ABG pO2 72 L Sodium Potassium Chloride Carbon Dioxide BUN Creatinine Glucose POC Glucose 121 H Calcium Phosphorus Magnesium Total Bilirubin AST Total Creatine Kinase CK-MB (CK-2) Total Protein Albumin Urine Creatinine Urine Chloride 03/24/17 03/25/17 03/25/17 18:16 00:24 05:30 WBC RBC Hgb Hct MCV MCH MCHC RDW Plt Count Lymph % (Auto) [place] % (Auto) [place] # Seg Neutrophils % Seg Neuts % (Manual) Lymphocytes % (Manual) Monocytes % (Manual) Seg Neutrophils # Seg Neutrophils # Man Lymphocytes # (Manual) Monocytes # (Manual) Eosinophils # (Manual) PT INR APTT Heparin Anti-Xa Level POC ABG pH POC ABG pCO2 34.2 L POC ABG pO2 Sodium Potassium Chloride Carbon Dioxide BUN Creatinine Glucose POC Glucose 117 H 107 H Calcium Phosphorus Magnesium Total Bilirubin AST Total Creatine Kinase CK-MB (CK-2) Total Protein Albumin Urine Creatinine Urine Chloride 03/25/17 03/25/17 03/25/17 05:35 11:45 16:48 WBC RBC Hgb Hct MCV MCH MCHC RDW Plt Count Lymph % (Auto) [place] % (Auto) [place] # Seg Neutrophils % Seg Neuts % (Manual) Lymphocytes % (Manual) Monocytes % (Manual) Seg Neutrophils # Seg Neutrophils # Man Lymphocytes # (Manual) Monocytes # (Manual) Eosinophils # (Manual) PT INR APTT Heparin Anti-Xa Level POC ABG pH POC ABG pCO2 POC ABG pO2 Sodium 132 L Potassium Chloride 92.0 L Carbon Dioxide 20 L BUN 102 H Creatinine 7.2 H Glucose 101 H POC Glucose 127 H 114 H Calcium 8.3 L Phosphorus Magnesium Total Bilirubin AST Total Creatine Kinase CK-MB (CK-2) Total Protein Albumin Urine Creatinine Urine Chloride 03/26/17 03/26/17 03/26/17 00:17 04:15 04:15 WBC 21.1 H RBC 3.52 L Hgb 11.0 L Hct 33.2 L MCV 95 H MCH MCHC RDW Plt Count 121 L Lymph % (Auto) [place] % (Auto) [place] # Seg Neutrophils % Seg Neuts % (Manual) Lymphocytes % (Manual) Monocytes % (Manual) Seg Neutrophils # Seg Neutrophils # Man Lymphocytes # (Manual) Monocytes # (Manual) Eosinophils # (Manual) PT INR APTT Heparin Anti-Xa Level POC ABG pH POC ABG pCO2 POC ABG pO2 Sodium 133 L Potassium Chloride 92.9 L Carbon Dioxide 21 L BUN 77 H Creatinine 5.4 H Glucose 115 H POC Glucose 114 H Calcium 8.1 L Phosphorus Magnesium Total Bilirubin AST Total Creatine Kinase CK-MB (CK-2) Total Protein Albumin Urine Creatinine Urine Chloride 03/26/17 03/26/17 03/26/17 04:49 11:36 23:29 WBC RBC Hgb Hct MCV MCH MCHC RDW Plt Count Lymph % (Auto) [place] % (Auto) [place] # Seg Neutrophils % Seg Neuts % (Manual) Lymphocytes % (Manual) Monocytes % (Manual) Seg Neutrophils # Seg Neutrophils # Man Lymphocytes # (Manual) Monocytes # (Manual) Eosinophils # (Manual) PT INR APTT Heparin Anti-Xa Level POC ABG pH POC ABG pCO2 POC ABG pO2 Sodium Potassium Chloride Carbon Dioxide BUN Creatinine Glucose POC Glucose 127 H 123 H 125 H Calcium Phosphorus Magnesium Total Bilirubin AST Total Creatine Kinase CK-MB (CK-2) Total Protein Albumin Urine Creatinine Urine Chloride 03/27/17 03/27/17 03/27/17 04:00 04:46 05:06 WBC RBC Hgb Hct MCV MCH MCHC RDW Plt Count Lymph % (Auto) [place] % (Auto) [place] # Seg Neutrophils % Seg Neuts % (Manual) Lymphocytes % (Manual) Monocytes % (Manual) Seg Neutrophils # Seg Neutrophils # Man Lymphocytes # (Manual) Monocytes # (Manual) Eosinophils # (Manual) PT INR APTT Heparin Anti-Xa Level POC ABG pH POC ABG pCO2 31.4 L POC ABG pO2 Sodium 132 L Potassium Chloride 90.5 L Carbon Dioxide 19 L BUN 95 H Creatinine 6.7 H Glucose 110 H POC Glucose 116 H Calcium Phosphorus Magnesium Total Bilirubin AST Total Creatine Kinase CK-MB (CK-2) Total Protein Albumin Urine Creatinine Urine Chloride 03/27/17 03/27/17 03/27/17 08:11 08:11 11:34 WBC 24.7 H RBC Hgb 11.5 L Hct 35.0 L MCV 95 H MCH MCHC RDW Plt Count Lymph % (Auto) [place] % (Auto) [place] # Seg Neutrophils % Seg Neuts % (Manual) Lymphocytes % (Manual) Monocytes % (Manual) Seg Neutrophils # Seg Neutrophils # Man Lymphocytes # (Manual) Monocytes # (Manual) Eosinophils # (Manual) PT INR APTT Heparin Anti-Xa Level < 0.10 L POC ABG pH POC ABG pCO2 POC ABG pO2 Sodium Potassium Chloride Carbon Dioxide BUN Creatinine Glucose POC Glucose 118 H Calcium Phosphorus Magnesium Total Bilirubin AST Total Creatine Kinase CK-MB (CK-2) Total Protein Albumin Urine Creatinine Urine Chloride 03/27/17 03/27/17 03/28/17 16:44 23:59 05:07 WBC RBC Hgb Hct MCV MCH MCHC RDW Plt Count Lymph % (Auto) [place] % (Auto) [place] # Seg Neutrophils % Seg Neuts % (Manual) Lymphocytes % (Manual) Monocytes % (Manual) Seg Neutrophils # Seg Neutrophils # Man Lymphocytes # (Manual) Monocytes # (Manual) Eosinophils # (Manual) PT INR APTT Heparin Anti-Xa Level POC ABG pH POC ABG pCO2 POC ABG pO2 Sodium Potassium Chloride Carbon Dioxide BUN Creatinine Glucose POC Glucose 110 H 109 H 110 H Calcium Phosphorus Magnesium Total Bilirubin AST Total Creatine Kinase CK-MB (CK-2) Total Protein Albumin Urine Creatinine Urine Chloride 03/28/17 03/28/17 03/28/17 07:00 11:24 11:50 WBC 26.6 H RBC 3.42 L Hgb 10.8 L Hct 33.2 L MCV 97 H MCH MCHC RDW 15.4 H Plt Count Lymph % (Auto) [place] % (Auto) [place] # Seg Neutrophils % Seg Neuts % (Manual) Lymphocytes % (Manual) Monocytes % (Manual) Seg Neutrophils # Seg Neutrophils # Man Lymphocytes # (Manual) Monocytes # (Manual) Eosinophils # (Manual) PT INR APTT Heparin Anti-Xa Level POC ABG pH POC ABG pCO2 POC ABG pO2 Sodium 131 L Potassium 5.3 H Chloride 86.6 L Carbon Dioxide 17 L BUN 112 H Creatinine 7.9 H Glucose 120 H POC Glucose 141 H Calcium Phosphorus Magnesium Total Bilirubin AST Total Creatine Kinase CK-MB (CK-2) Total Protein Albumin Urine Creatinine Urine Chloride 03/28/17 03/28/17 03/28/17 17:25 18:04 23:07 WBC RBC Hgb Hct MCV MCH MCHC RDW Plt Count Lymph % (Auto) [place] % (Auto) [place] # Seg Neutrophils % Seg Neuts % (Manual) Lymphocytes % (Manual) Monocytes % (Manual) Seg Neutrophils # Seg Neutrophils # Man Lymphocytes # (Manual) Monocytes # (Manual) Eosinophils # (Manual) PT INR APTT Heparin Anti-Xa Level 0.23 L POC ABG pH POC ABG pCO2 POC ABG pO2 Sodium Potassium Chloride Carbon Dioxide BUN Creatinine Glucose POC Glucose 128 H 115 H Calcium Phosphorus Magnesium Total Bilirubin AST Total Creatine Kinase CK-MB (CK-2) Total Protein Albumin Urine Creatinine Urine Chloride 03/29/17 03/29/17 03/29/17 03:23 05:16 08:20 WBC RBC Hgb Hct MCV MCH MCHC RDW Plt Count Lymph % (Auto) [place] % (Auto) [place] # Seg Neutrophils % Seg Neuts % (Manual) Lymphocytes % (Manual) Monocytes % (Manual) Seg Neutrophils # Seg Neutrophils # Man Lymphocytes # (Manual) Monocytes # (Manual) Eosinophils # (Manual) PT INR APTT Heparin Anti-Xa Level 0.10 L POC ABG pH POC ABG pCO2 POC ABG pO2 Sodium 126 L Potassium 5.6 H Chloride 87.5 L Carbon Dioxide 21 L BUN 84 H Creatinine 6.0 H Glucose 144 H POC Glucose 146 H Calcium 7.9 L Phosphorus Magnesium Total Bilirubin AST Total Creatine Kinase CK-MB (CK-2) Total Protein Albumin Urine Creatinine Urine Chloride 03/29/17 03/29/17 03/29/17 08:20 09:13 10:00 WBC 27.6 H RBC 3.27 L Hgb 10.2 L Hct 31.8 L MCV 97 H MCH MCHC RDW 15.3 H Plt Count Lymph % (Auto) [place] % (Auto) [place] # Seg Neutrophils % Seg Neuts % (Manual) Lymphocytes % (Manual) Monocytes % (Manual) Seg Neutrophils # Seg Neutrophils # Man Lymphocytes # (Manual) Monocytes # (Manual) Eosinophils # (Manual) PT INR APTT Heparin Anti-Xa Level 0.84 H POC ABG pH 7.204 L POC ABG pCO2 52.8 H POC ABG pO2 57 L Sodium Potassium Chloride Carbon Dioxide BUN Creatinine Glucose POC Glucose Calcium Phosphorus Magnesium Total Bilirubin AST Total Creatine Kinase CK-MB (CK-2) Total Protein Albumin Urine Creatinine Urine Chloride 03/29/17 03/29/17 03/29/17 10:24 12:27 16:44 WBC RBC Hgb Hct MCV MCH MCHC RDW Plt Count Lymph % (Auto) [place] % (Auto) [place] # Seg Neutrophils % Seg Neuts % (Manual) Lymphocytes % (Manual) Monocytes % (Manual) Seg Neutrophils # Seg Neutrophils # Man Lymphocytes # (Manual) Monocytes # (Manual) Eosinophils # (Manual) PT INR APTT Heparin Anti-Xa Level < 0.10 L POC ABG pH 7.305 L POC ABG pCO2 POC ABG pO2 73 L Sodium Potassium Chloride Carbon Dioxide BUN Creatinine Glucose POC Glucose 152 H Calcium Phosphorus Magnesium Total Bilirubin AST Total Creatine Kinase CK-MB (CK-2) Total Protein Albumin Urine Creatinine Urine Chloride 03/29/17 03/29/17 03/29/17 17:48 18:56 22:10 WBC RBC Hgb Hct MCV MCH MCHC RDW Plt Count Lymph % (Auto) [place] % (Auto) [place] # Seg Neutrophils % Seg Neuts % (Manual) Lymphocytes % (Manual) Monocytes % (Manual) Seg Neutrophils # Seg Neutrophils # Man Lymphocytes # (Manual) Monocytes # (Manual) Eosinophils # (Manual) PT INR APTT Heparin Anti-Xa Level POC ABG pH POC ABG pCO2 POC ABG pO2 Sodium 125 L Potassium 5.8 H Chloride 85.4 L Carbon Dioxide 16 L BUN 96 H Creatinine 6.9 H Glucose 135 H POC Glucose 130 H Calcium Phosphorus Magnesium Total Bilirubin AST Total Creatine Kinase CK-MB (CK-2) Total Protein Albumin Urine Creatinine 86.5 H Urine Chloride 15.2 L 03/30/17 03/30/17 03/30/17 00:11 01:00 05:42 WBC RBC Hgb Hct MCV MCH MCHC RDW Plt Count Lymph % (Auto) [place] % (Auto) [place] # Seg Neutrophils % Seg Neuts % (Manual) Lymphocytes % (Manual) Monocytes % (Manual) Seg Neutrophils # Seg Neutrophils # Man Lymphocytes # (Manual) Monocytes # (Manual) Eosinophils # (Manual) PT INR APTT Heparin Anti-Xa Level 0.80 H POC ABG pH POC ABG pCO2 POC ABG pO2 Sodium Potassium Chloride Carbon Dioxide BUN Creatinine Glucose POC Glucose 146 H 162 H Calcium Phosphorus Magnesium Total Bilirubin AST Total Creatine Kinase CK-MB (CK-2) Total Protein Albumin Urine Creatinine Urine Chloride 03/30/17 03/30/17 03/30/17 07:32 07:38 08:20 WBC 27.7 H RBC 3.14 L Hgb 9.7 L Hct 30.1 L MCV 96 H MCH MCHC RDW 16.2 H Plt Count Lymph % (Auto) [place] % (Auto) [place] # Seg Neutrophils % Seg Neuts % (Manual) 93.0 H Lymphocytes % (Manual) 1.0 L Monocytes % (Manual) Seg Neutrophils # Seg Neutrophils # Man 25.8 H Lymphocytes # (Manual) 0.3 L Monocytes # (Manual) 1.0 H Eosinophils # (Manual) PT INR APTT Heparin Anti-Xa Level 0.99 H POC ABG pH POC ABG pCO2 POC ABG pO2 Sodium 127 L Potassium 5.9 H Chloride 88.5 L Carbon Dioxide 16 L BUN 101 H Creatinine 7.5 H Glucose 147 H POC Glucose Calcium 8.0 L Phosphorus Magnesium Total Bilirubin AST Total Creatine Kinase CK-MB (CK-2) Total Protein Albumin Urine Creatinine Urine Chloride 03/30/17 03/30/17 03/30/17 12:19 16:07 16:58 WBC RBC Hgb Hct MCV MCH MCHC RDW Plt Count Lymph % (Auto) [place] % (Auto) [place] # Seg Neutrophils % Seg Neuts % (Manual) Lymphocytes % (Manual) Monocytes % (Manual) Seg Neutrophils # Seg Neutrophils # Man Lymphocytes # (Manual) Monocytes # (Manual) Eosinophils # (Manual) PT INR APTT Heparin Anti-Xa Level 1.07 H POC ABG pH POC ABG pCO2 POC ABG pO2 62 L Sodium Potassium Chloride Carbon Dioxide BUN Creatinine Glucose POC Glucose 179 H Calcium Phosphorus Magnesium Total Bilirubin AST Total Creatine Kinase CK-MB (CK-2) Total Protein Albumin Urine Creatinine Urine Chloride 0603/30/17 03/31/17 17:48 Unknown 00:25 WBC RBC Hgb Hct MCV MCH MCHC RDW Plt Count Lymph % (Auto) [place] % (Auto) [place] # Seg Neutrophils % Seg Neuts % (Manual) Lymphocytes % (Manual) Monocytes % (Manual) Seg Neutrophils # Seg Neutrophils # Man Lymphocytes # (Manual) Monocytes # (Manual) Eosinophils # (Manual) PT INR APTT Heparin Anti-Xa Level POC ABG pH POC ABG pCO2 POC ABG pO2 Sodium 124 L Potassium 5.2 H Chloride 86.6 L Carbon Dioxide 16 L BUN 93 H Creatinine 6.3 H Glucose 153 H POC Glucose 162 H 139 H Calcium 7.4 L D Phosphorus Magnesium Total Bilirubin AST Total Creatine Kinase CK-MB (CK-2) Total Protein Albumin Urine Creatinine Urine Chloride 03/31/17 03/31/17 03/31/17 04:18 05:21 11:39 WBC RBC Hgb Hct MCV MCH MCHC RDW Plt Count Lymph % (Auto) [place] % (Auto) [place] # Seg Neutrophils % Seg Neuts % (Manual) Lymphocytes % (Manual) Monocytes % (Manual) Seg Neutrophils # Seg Neutrophils # Man Lymphocytes # (Manual) Monocytes # (Manual) Eosinophils # (Manual) PT INR APTT Heparin Anti-Xa Level POC ABG pH 7.209 L POC ABG pCO2 55.7 H POC ABG pO2 106 H Sodium Potassium Chloride Carbon Dioxide BUN Creatinine Glucose POC Glucose 133 H 133 H Calcium Phosphorus Magnesium Total Bilirubin AST Total Creatine Kinase CK-MB (CK-2) Total Protein Albumin Urine Creatinine Urine Chloride 03/31/17 03/31/17 03/31/17 16:53 Unknown Unknown WBC 25.9 H RBC 3.04 L Hgb 9.6 L Hct 29.9 L MCV 98 H MCH MCHC RDW 16.1 H Plt Count Lymph % (Auto) [place] % (Auto) [place] # Seg Neutrophils % Seg Neuts % (Manual) Lymphocytes % (Manual) Monocytes % (Manual) Seg Neutrophils # Seg Neutrophils # Man Lymphocytes # (Manual) Monocytes # (Manual) Eosinophils # (Manual) PT INR APTT Heparin Anti-Xa Level POC ABG pH POC ABG pCO2 POC ABG pO2 Sodium 133 L Potassium Chloride 91.6 L Carbon Dioxide 20 L BUN 67 H Creatinine 5.3 H Glucose 129 H POC Glucose 146 H Calcium 7.4 L Phosphorus Magnesium Total Bilirubin AST Total Creatine Kinase CK-MB (CK-2) Total Protein Albumin Urine Creatinine Urine Chloride 03/31/17 04/01/17 04/01/17 23:59 04:00 04:00 WBC 16.1 H RBC 3.02 L Hgb 9.6 L Hct 29.0 L MCV 96 H MCH MCHC RDW 16.0 H Plt Count Lymph % (Auto) [place] % (Auto) [place] # Seg Neutrophils % Seg Neuts % (Manual) Lymphocytes % (Manual) Monocytes % (Manual) Seg Neutrophils # Seg Neutrophils # Man Lymphocytes # (Manual) Monocytes # (Manual) Eosinophils # (Manual) PT INR APTT Heparin Anti-Xa Level POC ABG pH POC ABG pCO2 POC ABG pO2 Sodium Potassium 3.1 L D Chloride 96.0 L Carbon Dioxide BUN 45 H Creatinine 4.1 H Glucose POC Glucose 121 H Calcium 7.1 L Phosphorus Magnesium Total Bilirubin AST Total Creatine Kinase CK-MB (CK-2) Total Protein Albumin Urine Creatinine Urine Chloride 04/01/17 04/02/17 04/02/17 05:20 00:15 04:00 WBC 13.5 H RBC 3.05 L Hgb 9.7 L Hct 29.2 L MCV 96 H MCH MCHC RDW 15.9 H Plt Count Lymph % (Auto) [place] % (Auto) [place] # Seg Neutrophils % Seg Neuts % (Manual) Lymphocytes % (Manual) Monocytes % (Manual) Seg Neutrophils # Seg Neutrophils # Man Lymphocytes # (Manual) Monocytes # (Manual) Eosinophils # (Manual) PT INR APTT Heparin Anti-Xa Level POC ABG pH POC ABG pCO2 POC ABG pO2 132 H Sodium Potassium Chloride Carbon Dioxide BUN Creatinine Glucose POC Glucose 110 H Calcium Phosphorus Magnesium Total Bilirubin AST Total Creatine Kinase CK-MB (CK-2) Total Protein Albumin Urine Creatinine Urine Chloride 04/02/17 04/02/17 04/02/17 04:22 04:35 05:25 WBC RBC Hgb Hct MCV MCH MCHC RDW Plt Count Lymph % (Auto) [place] % (Auto) [place] # Seg Neutrophils % Seg Neuts % (Manual) Lymphocytes % (Manual) Monocytes % (Manual) Seg Neutrophils # Seg Neutrophils # Man Lymphocytes # (Manual) Monocytes # (Manual) Eosinophils # (Manual) PT INR APTT Heparin Anti-Xa Level POC ABG pH POC ABG pCO2 POC ABG pO2 106 H Sodium Potassium 2.8 L* Chloride Carbon Dioxide BUN 30 H Creatinine 3.5 H Glucose 113 H POC Glucose 110 H Calcium 7.6 L Phosphorus Magnesium Total Bilirubin AST Total Creatine Kinase CK-MB (CK-2) Total Protein Albumin Urine Creatinine Urine Chloride 04/02/17 04/02/17 04/02/17 06:49 11:56 18:02 WBC RBC Hgb Hct MCV MCH MCHC RDW Plt Count Lymph % (Auto) [place] % (Auto) [place] # Seg Neutrophils % Seg Neuts % (Manual) Lymphocytes % (Manual) Monocytes % (Manual) Seg Neutrophils # Seg Neutrophils # Man Lymphocytes # (Manual) Monocytes # (Manual) Eosinophils # (Manual) PT INR APTT Heparin Anti-Xa Level 0.23 L POC ABG pH POC ABG pCO2 POC ABG pO2 Sodium Potassium Chloride Carbon Dioxide BUN Creatinine Glucose POC Glucose 118 H 128 H Calcium Phosphorus Magnesium Total Bilirubin AST Total Creatine Kinase CK-MB (CK-2) Total Protein Albumin Urine Creatinine Urine Chloride 04/03/17 04/03/17 04/03/17 00:15 04:41 05:54 WBC RBC Hgb Hct MCV MCH MCHC RDW Plt Count Lymph % (Auto) [place] % (Auto) [place] # Seg Neutrophils % Seg Neuts % (Manual) Lymphocytes % (Manual) Monocytes % (Manual) Seg Neutrophils # Seg Neutrophils # Man Lymphocytes # (Manual) Monocytes # (Manual) Eosinophils # (Manual) PT INR APTT Heparin Anti-Xa Level POC ABG pH 7.451 H POC ABG pCO2 POC ABG pO2 146 H Sodium Potassium Chloride Carbon Dioxide BUN Creatinine Glucose POC Glucose 202 H 202 H Calcium Phosphorus Magnesium Total Bilirubin AST Total Creatine Kinase CK-MB (CK-2) Total Protein Albumin Urine Creatinine Urine Chloride 04/03/17 04/03/17 04/03/17 06:22 06:22 09:54 WBC RBC 3.03 L Hgb 9.7 L Hct 28.7 L MCV 95 H MCH MCHC RDW 15.9 H Plt Count Lymph % (Auto) [place] % (Auto) [place] # Seg Neutrophils % Seg Neuts % (Manual) Lymphocytes % (Manual) Monocytes % (Manual) Seg Neutrophils # Seg Neutrophils # Man Lymphocytes # (Manual) Monocytes # (Manual) Eosinophils # (Manual) PT INR APTT Heparin Anti-Xa Level < 0.10 L POC ABG pH POC ABG pCO2 POC ABG pO2 Sodium Potassium Chloride Carbon Dioxide BUN 23 H Creatinine 3.1 H Glucose 175 H POC Glucose Calcium 8.0 L Phosphorus Magnesium Total Bilirubin AST Total Creatine Kinase CK-MB (CK-2) Total Protein Albumin Urine Creatinine Urine Chloride 04/03/17 04/03/17 04/03/17 11:40 11:45 16:25 WBC RBC Hgb Hct MCV MCH MCHC RDW Plt Count Lymph % (Auto) [place] % (Auto) [place] # Seg Neutrophils % Seg Neuts % (Manual) Lymphocytes % (Manual) Monocytes % (Manual) Seg Neutrophils # Seg Neutrophils # Man Lymphocytes # (Manual) Monocytes # (Manual) Eosinophils # (Manual) PT INR APTT Heparin Anti-Xa Level 0.27 L POC ABG pH POC ABG pCO2 POC ABG pO2 Sodium Potassium Chloride Carbon Dioxide BUN Creatinine Glucose POC Glucose 205 H 191 H Calcium Phosphorus Magnesium Total Bilirubin AST Total Creatine Kinase CK-MB (CK-2) Total Protein Albumin Urine Creatinine Urine Chloride 04/03/17 04/04/17 04/04/17 21:42 04:00 04:00 WBC 11.7 H RBC 3.20 L Hgb 10.0 L Hct 31.2 L MCV 96 H MCH MCHC RDW 16.1 H Plt Count Lymph % (Auto) [place] % (Auto) [place] # Seg Neutrophils % Seg Neuts % (Manual) 94.0 H Lymphocytes % (Manual) 0 L Monocytes % (Manual) Seg Neutrophils # Seg Neutrophils # Man 11.0 H Lymphocytes # (Manual) 0.0 L Monocytes # (Manual) Eosinophils # (Manual) PT INR APTT Heparin Anti-Xa Level POC ABG pH POC ABG pCO2 POC ABG pO2 Sodium 136 L Potassium Chloride 97.6 L Carbon Dioxide 21 L BUN 41 H Creatinine 4.0 H Glucose 184 H POC Glucose 147 H Calcium 8.1 L Phosphorus Magnesium Total Bilirubin AST Total Creatine Kinase CK-MB (CK-2) Total Protein Albumin Urine Creatinine Urine Chloride 04/04/17 04/04/17 04/04/17 05:12 06:17 12:32 WBC RBC Hgb Hct MCV MCH MCHC RDW Plt Count Lymph % (Auto) [place] % (Auto) [place] # Seg Neutrophils % Seg Neuts % (Manual) Lymphocytes % (Manual) Monocytes % (Manual) Seg Neutrophils # Seg Neutrophils # Man Lymphocytes # (Manual) Monocytes # (Manual) Eosinophils # (Manual) PT INR APTT Heparin Anti-Xa Level POC ABG pH POC ABG pCO2 34.3 L POC ABG pO2 Sodium Potassium Chloride Carbon Dioxide BUN Creatinine Glucose POC Glucose 188 H 173 H Calcium Phosphorus Magnesium Total Bilirubin AST Total Creatine Kinase CK-MB (CK-2) Total Protein Albumin Urine Creatinine Urine Chloride 04/04/17 04/04/17 04/05/17 18:19 19:00 00:08 WBC RBC Hgb Hct MCV MCH MCHC RDW Plt Count Lymph % (Auto) [place] % (Auto) [place] # Seg Neutrophils % Seg Neuts % (Manual) Lymphocytes % (Manual) Monocytes % (Manual) Seg Neutrophils # Seg Neutrophils # Man Lymphocytes # (Manual) Monocytes # (Manual) Eosinophils # (Manual) PT INR APTT Heparin Anti-Xa Level 0.98 H POC ABG pH POC ABG pCO2 POC ABG pO2 Sodium Potassium Chloride Carbon Dioxide BUN Creatinine Glucose POC Glucose 167 H 181 H Calcium Phosphorus Magnesium Total Bilirubin AST Total Creatine Kinase CK-MB (CK-2) Total Protein Albumin Urine Creatinine Urine Chloride 04/05/17 04/05/17 04:29 05:24 WBC RBC Hgb Hct MCV MCH MCHC RDW Plt Count Lymph % (Auto) [place] % (Auto) [place] # Seg Neutrophils % Seg Neuts % (Manual) Lymphocytes % (Manual) Monocytes % (Manual) Seg Neutrophils # Seg Neutrophils # Man Lymphocytes # (Manual) Monocytes # (Manual) Eosinophils # (Manual) PT INR APTT Heparin Anti-Xa Level POC ABG pH 7.453 H POC ABG pCO2 33.7 L POC ABG pO2 Sodium Potassium Chloride Carbon Dioxide BUN Creatinine Glucose POC Glucose 180 H Calcium Phosphorus Magnesium Total Bilirubin AST Total Creatine Kinase CK-MB (CK-2) Total Protein Albumin Urine Creatinine Urine Chloride
--- NOTE | 2017-04-05 09:33 | Progress Note ---
Assessment and Plan Impression: * KATHRIN--oliguric * vanco toxicity vs ATN * HTN * CM ef 40% * Afib with RVR * etoh withdrawal * asp PNA * UTI * Nephrolithiasis * Plan: * Patient remains on the ventilator and dialysis dependent * Volume overload much improved * HD q MWF and prn * uf as tolerated * continue to monitor for renal recovery * Antibiotic therapy as per primary care team * no hydro seen on CT * strict i/os * avoid nephrotoxins * daily lytes and weight * Adjust meds for creatinine clearance less than 10 mL/m Subjective Date of service: 04/05/17 Principal diagnosis: afib, EtOH abuse, morbid obesity, respiratory failure status post extubatio Interval history: resting in bed, events noted Objective - Exam Narrative Exam: GEN: WDWN, NAD, HEENT: NCAT, PERRL, EOMI, OP CLEAR NECK: SUPPLE, NO THYROMEGALY, NO JVD, NO LAD CVS: irregular irregular, NORMAL S1S2 LUNGS/CHEST: scat rhonchi NORMAL CHEST EXPANSION B, GOOD AIR ENTRY B ABD: SOFT NTND, GBS, NO REBOUND OR GUARDING EXT/SKIN: NO SIGNIFICANT EDEMA OR RASH MSK: FROM X 4 EXTREMITIES NEURO: CN 2-12 GROSSLY IN[place]CT, NO FOCAL DEFICITS - Vital Signs Vital signs: Vital Signs - 12hr 04/04/17 04/04/17 04/04/17 22:00 22:31 23:00 Temperature Pulse Rate 103 H 117 H 105 H Pulse Rate [ Anterior Bilateral Throughout] Pulse Rate [ From Monitor] Respiratory 15 15 14 Rate Respiratory Rate [Anterior Bilateral Throughout] Respiratory Rate [Right Wrist] Blood Pressure 118/81 123/77 118/77 O2 Sat by Pulse 96 97 96 Oximetry 04/04/17 04/04/17 04/04/17 23:10 23:25 23:31 Temperature Pulse Rate 108 H Pulse Rate [ 106 H 108 H Anterior Bilateral Throughout] Pulse Rate [ From Monitor] Respiratory 12 Rate Respiratory 22 22 Rate [Anterior Bilateral Throughout] Respiratory Rate [Right Wrist] Blood Pressure 112/65 O2 Sat by Pulse 96 Oximetry 04/04/17 04/04/17 04/04/17 23:34 23:48 23:56 Temperature 99.6 F Pulse Rate 115 H 106 H Pulse Rate [ Anterior Bilateral Throughout] Pulse Rate [ From Monitor] Respiratory 12 Rate Respiratory Rate [Anterior Bilateral Throughout] Respiratory Rate [Right Wrist] Blood Pressure 118/77 118/77 O2 Sat by Pulse 95 96 Oximetry 04/05/17 04/05/17 04/05/17 00:00 00:07 00:10 Temperature Pulse Rate 102 H 104 H Pulse Rate [ Anterior Bilateral Throughout] Pulse Rate [ 112 H From Monitor] Respiratory 15 Rate Respiratory Rate [Anterior Bilateral Throughout] Respiratory 16 Rate [Right Wrist] Blood Pressure 114/66 O2 Sat by Pulse 95 Oximetry 04/05/17 04/05/17 04/05/17 00:31 00:45 01:01 Temperature Pulse Rate 106 H 112 H 101 H Pulse Rate [ Anterior Bilateral Throughout] Pulse Rate [ From Monitor] Respiratory 17 13 Rate Respiratory Rate [Anterior Bilateral Throughout] Respiratory Rate [Right Wrist] Blood Pressure 116/74 116/74 111/66 O2 Sat by Pulse 96 91 Oximetry 04/05/17 04/05/17 04/05/17 01:31 02:00 02:31 Temperature Pulse Rate 107 H 102 H 101 H Pulse Rate [ Anterior Bilateral Throughout] Pulse Rate [ From Monitor] Respiratory 13 13 16 Rate Respiratory Rate [Anterior Bilateral Throughout] Respiratory Rate [Right Wrist] Blood Pressure 126/77 119/74 116/69 O2 Sat by Pulse 95 96 97 Oximetry 04/05/17 04/05/17 04/05/17 03:00 03:31 04:00 Temperature 99.1 F Pulse Rate 97 H 93 H 97 H Pulse Rate [ Anterior Bilateral Throughout] Pulse Rate [ 97 H From Monitor] Respiratory 17 19 18 Rate Respiratory Rate [Anterior Bilateral Throughout] Respiratory Rate [Right Wrist] Blood Pressure 111/65 111/69 115/69 O2 Sat by Pulse 97 97 97 Oximetry 04/05/17 04/05/17 04/05/17 04:30 04:31 04:34 Temperature Pulse Rate 85 89 Pulse Rate [ 93 H Anterior Bilateral Throughout] Pulse Rate [ From Monitor] Respiratory 14 Rate Respiratory 17 Rate [Anterior Bilateral Throughout] Respiratory Rate [Right Wrist] Blood Pressure 113/72 115/69 O2 Sat by Pulse 96 97 Oximetry 04/05/17 04/05/17 04/05/17 04:49 05:00 05:31 Temperature Pulse Rate 93 H 95 H Pulse Rate [ 95 H Anterior Bilateral Throughout] Pulse Rate [ From Monitor] Respiratory 14 11 L Rate Respiratory 17 Rate [Anterior Bilateral Throughout] Respiratory Rate [Right Wrist] Blood Pressure 114/68 112/70 O2 Sat by Pulse 97 96 Oximetry 04/05/17 04/05/17 04/05/17 06:00 06:14 06:31 Temperature Pulse Rate 104 H 108 H Pulse Rate [ Anterior Bilateral Throughout] Pulse Rate [ From Monitor] Respiratory 17 Rate Respiratory Rate [Anterior Bilateral Throughout] Respiratory Rate [Right Wrist] Blood Pressure 119/76 119/76 119/76 O2 Sat by Pulse 96 97 Oximetry 04/05/17 04/05/17 04/05/17 07:01 07:31 08:00 Temperature 97.4 F L Pulse Rate 113 H 123 H 102 H Pulse Rate [ Anterior Bilateral Throughout] Pulse Rate [ From Monitor] Respiratory 13 14 12 Rate Respiratory Rate [Anterior Bilateral Throughout] Respiratory Rate [Right Wrist] Blood Pressure 127/86 136/81 137/98 O2 Sat by Pulse 97 96 97 Oximetry 04/05/17 04/05/17 04/05/17 08:30 08:31 08:34 Temperature Pulse Rate 101 H 100 H Pulse Rate [ Anterior Bilateral Throughout] Pulse Rate [ 101 H From Monitor] Respiratory 12 13 Rate Respiratory Rate [Anterior Bilateral Throughout] Respiratory Rate [Right Wrist] Blood Pressure 138/98 138/98 O2 Sat by Pulse 98 97 Oximetry - Lab 04/04/17 04:00 04/04/17 04:00 Most recent lab results Calcium 8.1 mg/dL (8.4-10.2) L 04/04/17 04:00 Phosphorus 4.60 mg/dL (2.5-4.5) H 03/06/17 04:50 Magnesium 1.60 mg/dL (1.7-2.3) L 03/19/17 06:55 Urine Creatinine 86.5 mg/dL (0.1-20.0) H 03/29/17 22:10 Urine Sodium 28 mEq/L 03/29/17 22:10
[2017-04-05] MEDS: VITAMIN B-1 PO SCH (10:26)
[2017-04-05] MEDS: FOLVITE PO SCH (10:26)
[2017-04-05] MEDS: PROTONIX PO SCH (10:26)
[2017-04-05] MEDS: MERREM/NS 500 MG/50 ML 500 MG/50 ML BAG IV SCH (14:19)
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
[2017-04-06] MEDS: DUONEB *Not for PRN Use IH SCH ×6 (00:45→20:45)
[2017-04-06] MEDS: NOVOLOG SUB-Q SCH ×4 (00:57→18:22)
[2017-04-06] MEDS: CARDIZEM PO SCH ×4 (00:58→18:22)
[2017-04-06 06:59] LABS: Hematocrit 30.1 % (35.5-45.6); Mean Corpuscular HGB Conc 33 % (32-34); Mean Corpuscular Hemoglobin 31 pg (28-32); Mean Corpuscular Volume 94 fl (84-94); Platelet Count 233 K/mm3 (140-440); Red Cell Distribution Width 15.8 % (13.2-15.2); White Blood Count 12.8 K/mm3 (4.5-11.0)
[2017-04-06 07:14] LABS: BUN/Creatinine Ratio 15.74; Chloride 92.5 mmol/L (98-107); Potassium 4.6 mmol/L (3.6-5.0)
[2017-04-06 07:44] LABS: Anisocytosis 1+; Basophils % (Manual) 0 % (0.0-1.8); Blastocytes % (Manual) 0 %; Eosinophils % (Manual) 0 % (0.0-4.3); Macrocytosis Rare; Ovalocytes Few
[2017-04-06 07:45] LABS: Diff Status Complete; Stomatocytes Rare; Target Cells Rare
[2017-04-06] MEDS: NACL 0.9% 1000 ML 1,000 ML IV SCH (08:25)
--- NOTE | 2017-04-06 09:08 | Progress Note ---
Assessment and Plan Impression: * KATHRIN--oliguric * vanco toxicity vs ATN * HTN * CM ef 40% * Afib with RVR * etoh withdrawal * asp PNA * UTI * Nephrolithiasis * Plan: * Patient remains dialysis dependent * Volume overload much improved * HD q MWF and prn * uf as tolerated * continue to monitor for renal recovery * Antibiotic therapy as per primary care team * no hydro seen on CT * strict i/os * avoid nephrotoxins * daily lytes and weight * Adjust meds for creatinine clearance less than 10 mL/m Subjective Date of service: 04/06/17 Principal diagnosis: afib, EtOH abuse, morbid obesity, respiratory failure status post extubatio Interval history: resting in bed, events noted Objective - Exam Narrative Exam: GEN: WDWN, NAD, HEENT: NCAT, PERRL, EOMI, OP CLEAR NECK: SUPPLE, NO THYROMEGALY, NO JVD, NO LAD CVS: irregular irregular, NORMAL S1S2 LUNGS/CHEST: scat rhonchi NORMAL CHEST EXPANSION B, GOOD AIR ENTRY B ABD: SOFT NTND, GBS, NO REBOUND OR GUARDING EXT/SKIN: NO SIGNIFICANT EDEMA OR RASH MSK: FROM X 4 EXTREMITIES NEURO: CN 2-12 GROSSLY INTACT, NO FOCAL DEFICITS - Vital Signs Vital signs: Vital Signs - 12hr 04/05/17 04/05/17 04/05/17 21:31 22:00 22:31 Temperature Pulse Rate 104 H 93 H 95 H Pulse Rate [ Anterior Bilateral Throughout] Pulse Rate [ From Monitor] Respiratory 17 19 17 Rate Respiratory Rate [Anterior Bilateral Throughout] Blood Pressure 126/85 122/84 125/89 O2 Sat by Pulse 94 93 94 Oximetry 04/05/17 04/05/17 04/06/17 23:00 23:31 00:00 Temperature 98.3 F Pulse Rate 93 H 103 H 100 H Pulse Rate [ Anterior Bilateral Throughout] Pulse Rate [ 100 H From Monitor] Respiratory 14 18 16 Rate Respiratory Rate [Anterior Bilateral Throughout] Blood Pressure 140/85 133/91 134/89 O2 Sat by Pulse 94 94 94 Oximetry 04/06/17 04/06/17 04/06/17 00:31 00:43 00:45 Temperature Pulse Rate 97 H 103 H Pulse Rate [ 94 H Anterior Bilateral Throughout] Pulse Rate [ From Monitor] Respiratory 23 Rate Respiratory 18 Rate [Anterior Bilateral Throughout] Blood Pressure 140/92 140/92 O2 Sat by Pulse 95 95 Oximetry 04/06/17 04/06/17 04/06/17 00:55 00:58 01:00 Temperature Pulse Rate 93 H 92 H Pulse Rate [ 96 H Anterior Bilateral Throughout] Pulse Rate [ From Monitor] Respiratory 19 Rate Respiratory 19 Rate [Anterior Bilateral Throughout] Blood Pressure 129/83 131/86 O2 Sat by Pulse 95 Oximetry 04/06/17 04/06/17 04/06/17 01:31 02:01 02:31 Temperature Pulse Rate 84 80 Pulse Rate [ Anterior Bilateral Throughout] Pulse Rate [ From Monitor] Respiratory 16 18 Rate Respiratory Rate [Anterior Bilateral Throughout] Blood Pressure 131/86 131/86 135/87 O2 Sat by Pulse 95 94 95 Oximetry 04/06/17 04/06/17 04/06/17 03:00 03:31 03:39 Temperature Pulse Rate 90 99 H 95 H Pulse Rate [ Anterior Bilateral Throughout] Pulse Rate [ From Monitor] Respiratory 17 21 Rate Respiratory Rate [Anterior Bilateral Throughout] Blood Pressure 136/100 138/101 O2 Sat by Pulse 94 94 Oximetry 04/06/17 04/06/17 04/06/17 03:58 04:00 04:25 Temperature 99.5 F Pulse Rate 101 H 92 H Pulse Rate [ Anterior Bilateral Throughout] Pulse Rate [ 101 H From Monitor] Respiratory 19 Rate Respiratory Rate [Anterior Bilateral Throughout] Blood Pressure 150/99 150/99 O2 Sat by Pulse 94 96 Oximetry 04/06/17 04/06/17 04/06/17 04:27 04:31 04:37 Temperature Pulse Rate 94 H Pulse Rate [ 97 H 96 H Anterior Bilateral Throughout] Pulse Rate [ From Monitor] Respiratory 17 Rate Respiratory 18 16 Rate [Anterior Bilateral Throughout] Blood Pressure 153/99 O2 Sat by Pulse 95 Oximetry 04/06/17 04/06/17 04/06/17 05:00 05:31 06:00 Temperature Pulse Rate 99 H 100 H 101 H Pulse Rate [ Anterior Bilateral Throughout] Pulse Rate [ From Monitor] Respiratory 18 19 17 Rate Respiratory Rate [Anterior Bilateral Throughout] Blood Pressure 148/101 148/98 142/97 O2 Sat by Pulse 94 95 95 Oximetry 04/06/17 04/06/17 04/06/17 06:31 06:33 07:00 Temperature Pulse Rate 93 H 90 90 Pulse Rate [ Anterior Bilateral Throughout] Pulse Rate [ From Monitor] Respiratory 14 16 Rate Respiratory Rate [Anterior Bilateral Throughout] Blood Pressure 144/97 144/97 133/83 O2 Sat by Pulse 95 95 Oximetry 04/06/17 04/06/17 04/06/17 07:31 08:00 08:11 Temperature 97.7 F Pulse Rate 80 84 Pulse Rate [ Anterior Bilateral Throughout] Pulse Rate [ From Monitor] Respiratory 19 20 Rate Respiratory Rate [Anterior Bilateral Throughout] Blood Pressure 140/107 129/100 O2 Sat by Pulse 94 93 Oximetry 04/06/17 04/06/17 04/06/17 08:13 08:19 08:51 Temperature Pulse Rate 82 Pulse Rate [ 81 84 Anterior Bilateral Throughout] Pulse Rate [ 80 From Monitor] Respiratory 22 Rate Respiratory 16 14 Rate [Anterior Bilateral Throughout] Blood Pressure 129/100 O2 Sat by Pulse 94 Oximetry - Lab 04/06/17 06:30 04/06/17 06:30 Most recent lab results Calcium 8.0 mg/dL (8.4-10.2) L 04/06/17 06:30 Phosphorus 4.60 mg/dL (2.5-4.5) H 03/06/17 04:50 Magnesium 1.60 mg/dL (1.7-2.3) L 03/19/17 06:55 Urine Creatinine 86.5 mg/dL (0.1-20.0) H 03/29/17 22:10 Urine Sodium 28 mEq/L 03/29/17 22:10
--- NOTE | 2017-04-06 11:11 | Progress Note ---
Assessment and Plan 51 y/o male, noncompliant, with systolic heart failure, admitted with afib with RVR, and possible ETOH abuse, now with recurrent afib with RVR and likely aspiration pneumonia on the right resulting in acute respiratory failure, now with recurrent respiratory failure 1. Continue PSV as tolerated. Will place back on rate, once HD starts. 2. Follow up any new renal recs. 3. Rate control, appears to be better 4. PRN meds for sedation, hold on continuous infusion if possible 5. CXR is stable, may need trach but will attempt repeat extubation soon CCT 31 minutes. Subjective Date of service: 04/06/17 Principal diagnosis: afib, EtOH abuse, morbid obesity, respiratory failure status post extubatio Interval history: No acute events. Scheduled for HD today. Objective Vital Signs - 12hr 04/05/17 04/06/17 04/06/17 23:31 00:00 00:31 Temperature 98.3 F Pulse Rate 103 H 100 H 97 H Pulse Rate [ Anterior Bilateral Throughout] Pulse Rate [ 100 H From Monitor] Respiratory 18 16 23 Rate Respiratory Rate [Anterior Bilateral Throughout] Blood Pressure 133/91 134/89 140/92 O2 Sat by Pulse 94 94 95 Oximetry 04/06/17 04/06/17 04/06/17 00:43 00:45 00:55 Temperature Pulse Rate 103 H Pulse Rate [ 94 H 96 H Anterior Bilateral Throughout] Pulse Rate [ From Monitor] Respiratory Rate Respiratory 18 19 Rate [Anterior Bilateral Throughout] Blood Pressure 140/92 O2 Sat by Pulse 95 Oximetry 04/06/17 04/06/17 04/06/17 00:58 01:00 01:31 Temperature Pulse Rate 93 H 92 H Pulse Rate [ Anterior Bilateral Throughout] Pulse Rate [ From Monitor] Respiratory 19 Rate Respiratory Rate [Anterior Bilateral Throughout] Blood Pressure 129/83 131/86 131/86 O2 Sat by Pulse 95 95 Oximetry 04/06/17 04/06/17 04/06/17 02:01 02:31 03:00 Temperature Pulse Rate 84 80 90 Pulse Rate [ Anterior Bilateral Throughout] Pulse Rate [ From Monitor] Respiratory 16 18 17 Rate Respiratory Rate [Anterior Bilateral Throughout] Blood Pressure 131/86 135/87 136/100 O2 Sat by Pulse 94 95 94 Oximetry 04/06/17 04/06/17 04/06/17 03:31 03:39 03:58 Temperature 99.5 F Pulse Rate 99 H 95 H Pulse Rate [ Anterior Bilateral Throughout] Pulse Rate [ From Monitor] Respiratory 21 Rate Respiratory Rate [Anterior Bilateral Throughout] Blood Pressure 138/101 O2 Sat by Pulse 94 Oximetry 04/06/17 04/06/17 04/06/17 04:00 04:25 04:27 Temperature Pulse Rate 101 H 92 H Pulse Rate [ 97 H Anterior Bilateral Throughout] Pulse Rate [ 101 H From Monitor] Respiratory 19 Rate Respiratory 18 Rate [Anterior Bilateral Throughout] Blood Pressure 150/99 150/99 O2 Sat by Pulse 94 96 Oximetry 04/06/17 04/06/17 04/06/17 04:31 04:37 05:00 Temperature Pulse Rate 94 H 99 H Pulse Rate [ 96 H Anterior Bilateral Throughout] Pulse Rate [ From Monitor] Respiratory 17 18 Rate Respiratory 16 Rate [Anterior Bilateral Throughout] Blood Pressure 153/99 148/101 O2 Sat by Pulse 95 94 Oximetry 04/06/17 04/06/17 04/06/17 05:31 06:00 06:31 Temperature Pulse Rate 100 H 101 H 93 H Pulse Rate [ Anterior Bilateral Throughout] Pulse Rate [ From Monitor] Respiratory 19 17 14 Rate Respiratory Rate [Anterior Bilateral Throughout] Blood Pressure 148/98 142/97 144/97 O2 Sat by Pulse 95 95 95 Oximetry 04/06/17 04/06/17 04/06/17 06:33 07:00 07:31 Temperature Pulse Rate 90 90 80 Pulse Rate [ Anterior Bilateral Throughout] Pulse Rate [ From Monitor] Respiratory 16 19 Rate Respiratory Rate [Anterior Bilateral Throughout] Blood Pressure 144/97 133/83 140/107 O2 Sat by Pulse 95 94 Oximetry 04/06/17 04/06/17 04/06/17 08:00 08:11 08:13 Temperature 97.7 F Pulse Rate 84 82 Pulse Rate [ Anterior Bilateral Throughout] Pulse Rate [ 80 From Monitor] Respiratory 20 22 Rate Respiratory Rate [Anterior Bilateral Throughout] Blood Pressure 129/100 129/100 O2 Sat by Pulse 93 94 Oximetry 04/06/17 04/06/17 04/06/17 08:19 08:31 08:51 Temperature Pulse Rate 77 Pulse Rate [ 81 84 Anterior Bilateral Throughout] Pulse Rate [ From Monitor] Respiratory 15 Rate Respiratory 16 14 Rate [Anterior Bilateral Throughout] Blood Pressure 146/98 O2 Sat by Pulse 95 Oximetry 04/06/17 09:00 Temperature 97.7 F Pulse Rate 78 Pulse Rate [ Anterior Bilateral Throughout] Pulse Rate [ From Monitor] Respiratory 18 Rate Respiratory Rate [Anterior Bilateral Throughout] Blood Pressure 138/83 O2 Sat by Pulse 95 Oximetry Constitutional: no acute distress, alert, other (ETT in position,) Eyes: non-icteric ENT: oropharynx moist Neck: supple, no JVD, other (orally intubated.) Effort: mildly labored Ascultation: Right: rales (mostly on the right), Bilateral: clear, diminished breath sounds, wheezes, rhonchi (sporadic) Percussion: Bilateral: not dull Cardiovascular: irregular rhythm Gastrointestinal: normoactive bowel sounds, soft, non-tender, non-distended, other (obese) Integumentary: normal Extremities: no cyanosis, no edema, pink and warm Neurologic: non-focal exam, pupils equal and round, other Psychiatric: mood appropriate, affect normal, anxious CBC and BMP: 04/06/17 06:30 04/06/17 06:30 ABG, PT/INR, D-dimer: ABG POC ABG pH 7.453 (7.35-7.45) H 04/05/17 04:29 POC ABG pCO2 33.7 (35-45) L 04/05/17 04:29 POC ABG pO2 98 (80-105) 04/05/17 04:29 POC ABG HCO3 23.6 04/05/17 04:29 POC ABG Total CO2 25 04/05/17 04:29 POC ABG O2 Sat 98 04/05/17 04:29 PT/INR, D-dimer PT 16.2 Sec. (12.2-14.9) H 03/22/17 08:40 INR 1.31 (0.87-1.13) H 03/22/17 08:40 Abnormal lab findings: Abnormal Labs 02/27/17 02/27/17 02/27/17 03:51 05:41 08:49 WBC RBC Hgb Hct MCV MCH MCHC RDW Plt Count Lymph % (Auto) [place] % (Auto) [place] # Seg Neutrophils % Seg Neuts % (Manual) Lymphocytes % (Manual) Monocytes % (Manual) Seg Neutrophils # Seg Neutrophils # Man Lymphocytes # (Manual) Monocytes # (Manual) Eosinophils # (Manual) PT INR APTT Heparin Anti-Xa Level POC ABG pH POC ABG pCO2 POC ABG pO2 Sodium Potassium Chloride Carbon Dioxide BUN Creatinine Glucose POC Glucose 131 H 139 H Calcium Phosphorus Magnesium Total Bilirubin AST Total Creatine Kinase 171 H CK-MB (CK-2) 5.8 H Total Protein Albumin Urine Creatinine Urine Chloride 02/27/17 02/27/17 02/27/17 13:05 13:08 16:07 WBC RBC Hgb Hct MCV MCH MCHC RDW Plt Count Lymph % (Auto) [place] % (Auto) [place] # Seg Neutrophils % Seg Neuts % (Manual) Lymphocytes % (Manual) Monocytes % (Manual) Seg Neutrophils # Seg Neutrophils # Man Lymphocytes # (Manual) Monocytes # (Manual) Eosinophils # (Manual) PT INR APTT Heparin Anti-Xa Level POC ABG pH POC ABG pCO2 POC ABG pO2 Sodium Potassium Chloride Carbon Dioxide BUN Creatinine Glucose POC Glucose 146 H 138 H Calcium Phosphorus Magnesium Total Bilirubin AST Total Creatine Kinase CK-MB (CK-2) 4.7 H Total Protein Albumin Urine Creatinine Urine Chloride 02/27/17 02/28/17 02/28/17 21:40 03:32 03:32 WBC RBC Hgb 15.9 H Hct 47.6 H MCV 100 H MCH 34 H MCHC RDW 15.4 H Plt Count Lymph % (Auto) [place] % (Auto) [place] # Seg Neutrophils % Seg Neuts % (Manual) Lymphocytes % (Manual) Monocytes % (Manual) Seg Neutrophils # Seg Neutrophils # Man Lymphocytes # (Manual) Monocytes # (Manual) Eosinophils # (Manual) PT INR APTT Heparin Anti-Xa Level POC ABG pH POC ABG pCO2 POC ABG pO2 Sodium Potassium Chloride 95.0 L Carbon Dioxide BUN 8 L Creatinine 0.6 L Glucose 126 H POC Glucose 140 H Calcium Phosphorus Magnesium 1.60 L Total Bilirubin AST Total Creatine Kinase CK-MB (CK-2) Total Protein Albumin Urine Creatinine Urine Chloride 02/28/17 02/28/17 02/28/17 07:55 11:57 15:40 WBC RBC Hgb Hct MCV MCH MCHC RDW Plt Count Lymph % (Auto) [place] % (Auto) [place] # Seg Neutrophils % Seg Neuts % (Manual) Lymphocytes % (Manual) Monocytes % (Manual) Seg Neutrophils # Seg Neutrophils # Man Lymphocytes # (Manual) Monocytes # (Manual) Eosinophils # (Manual) PT INR APTT Heparin Anti-Xa Level POC ABG pH POC ABG pCO2 POC ABG pO2 Sodium Potassium Chloride Carbon Dioxide BUN Creatinine Glucose POC Glucose 134 H 174 H 158 H Calcium Phosphorus Magnesium Total Bilirubin AST Total Creatine Kinase CK-MB (CK-2) Total Protein Albumin Urine Creatinine Urine Chloride 02/28/17 03/01/17 03/01/17 21:51 07:42 10:41 WBC RBC Hgb Hct MCV MCH MCHC RDW Plt Count Lymph % (Auto) [place] % (Auto) [place] # Seg Neutrophils % Seg Neuts % (Manual) Lymphocytes % (Manual) Monocytes % (Manual) Seg Neutrophils # Seg Neutrophils # Man Lymphocytes # (Manual) Monocytes # (Manual) Eosinophils # (Manual) PT INR APTT Heparin Anti-Xa Level POC ABG pH POC ABG pCO2 POC ABG pO2 Sodium Potassium Chloride Carbon Dioxide BUN Creatinine Glucose POC Glucose 127 H 146 H 176 H Calcium Phosphorus Magnesium Total Bilirubin AST Total Creatine Kinase CK-MB (CK-2) Total Protein Albumin Urine Creatinine Urine Chloride 03/01/17 03/01/17 03/02/17 15:37 23:35 08:11 WBC RBC Hgb Hct MCV MCH MCHC RDW Plt Count Lymph % (Auto) [place] % (Auto) [place] # Seg Neutrophils % Seg Neuts % (Manual) Lymphocytes % (Manual) Monocytes % (Manual) Seg Neutrophils # Seg Neutrophils # Man Lymphocytes # (Manual) Monocytes # (Manual) Eosinophils # (Manual) PT INR APTT Heparin Anti-Xa Level POC ABG pH POC ABG pCO2 POC ABG pO2 Sodium Potassium Chloride Carbon Dioxide BUN Creatinine Glucose POC Glucose 158 H 139 H 127 H Calcium Phosphorus Magnesium Total Bilirubin AST Total Creatine Kinase CK-MB (CK-2) Total Protein Albumin Urine Creatinine Urine Chloride 03/02/17 03/02/17 03/02/17 09:12 12:03 12:37 WBC 17.9 H RBC Hgb 16.3 H Hct 49.3 H MCV 101 H MCH 33 H MCHC RDW Plt Count Lymph % (Auto) 10.6 L [place] % (Auto) 13.4 H [place] # 2.4 H Seg Neutrophils % 75.2 H Seg Neuts % (Manual) Lymphocytes % (Manual) Monocytes % (Manual) Seg Neutrophils # 13.5 H Seg Neutrophils # Man Lymphocytes # (Manual) Monocytes # (Manual) Eosinophils # (Manual) PT INR APTT Heparin Anti-Xa Level POC ABG pH POC ABG pCO2 POC ABG pO2 Sodium 135 L Potassium Chloride 90.3 L Carbon Dioxide 32 H BUN Creatinine 0.6 L Glucose 124 H POC Glucose 145 H Calcium Phosphorus Magnesium Total Bilirubin AST Total Creatine Kinase CK-MB (CK-2) Total Protein Albumin Urine Creatinine Urine Chloride 03/02/17 03/02/17 03/03/17 16:09 22:41 03:59 WBC 14.7 H RBC Hgb Hct MCV 100 H MCH 33 H MCHC RDW Plt Count Lymph % (Auto) 10.9 L [place] % (Auto) 14.8 H [place] # 2.2 H Seg Neutrophils % 73.6 H Seg Neuts % (Manual) Lymphocytes % (Manual) Monocytes % (Manual) Seg Neutrophils # 10.8 H Seg Neutrophils # Man Lymphocytes # (Manual) Monocytes # (Manual) Eosinophils # (Manual) PT INR APTT Heparin Anti-Xa Level POC ABG pH POC ABG pCO2 POC ABG pO2 Sodium Potassium Chloride Carbon Dioxide BUN Creatinine Glucose POC Glucose 141 H 127 H Calcium Phosphorus Magnesium Total Bilirubin AST Total Creatine Kinase CK-MB (CK-2) Total Protein Albumin Urine Creatinine Urine Chloride 03/03/17 03/03/17 03/03/17 04:07 09:19 11:33 WBC RBC Hgb Hct MCV MCH MCHC RDW Plt Count Lymph % (Auto) [place] % (Auto) [place] # Seg Neutrophils % Seg Neuts % (Manual) Lymphocytes % (Manual) Monocytes % (Manual) Seg Neutrophils # Seg Neutrophils # Man Lymphocytes # (Manual) Monocytes # (Manual) Eosinophils # (Manual) PT INR APTT Heparin Anti-Xa Level POC ABG pH POC ABG pCO2 POC ABG pO2 Sodium Potassium 3.1 L D Chloride 91.1 L Carbon Dioxide BUN Creatinine 0.7 L Glucose 136 H POC Glucose 123 H 153 H Calcium Phosphorus Magnesium Total Bilirubin AST Total Creatine Kinase CK-MB (CK-2) Total Protein Albumin Urine Creatinine Urine Chloride 03/03/17 03/04/17 03/04/17 15:46 05:58 06:04 WBC 11.4 H RBC Hgb Hct 46.0 H MCV 101 H MCH 33 H MCHC RDW Plt Count Lymph % (Auto) [place] % (Auto) [place] # Seg Neutrophils % Seg Neuts % (Manual) 71.0 H Lymphocytes % (Manual) 13.0 L Monocytes % (Manual) 13.0 H Seg Neutrophils # Seg Neutrophils # Man 8.1 H Lymphocytes # (Manual) Monocytes # (Manual) 1.5 H Eosinophils # (Manual) PT INR APTT Heparin Anti-Xa Level POC ABG pH POC ABG pCO2 POC ABG pO2 Sodium Potassium 3.3 L Chloride 92.2 L Carbon Dioxide 33 H BUN Creatinine 0.6 L Glucose 133 H POC Glucose 131 H Calcium Phosphorus Magnesium Total Bilirubin AST Total Creatine Kinase CK-MB (CK-2) Total Protein Albumin Urine Creatinine Urine Chloride 03/04/17 03/04/17 03/04/17 07:54 11:24 16:00 WBC RBC Hgb Hct MCV MCH MCHC RDW Plt Count Lymph % (Auto) [place] % (Auto) [place] # Seg Neutrophils % Seg Neuts % (Manual) Lymphocytes % (Manual) Monocytes % (Manual) Seg Neutrophils # Seg Neutrophils # Man Lymphocytes # (Manual) Monocytes # (Manual) Eosinophils # (Manual) PT INR APTT Heparin Anti-Xa Level POC ABG pH POC ABG pCO2 POC ABG pO2 Sodium Potassium Chloride Carbon Dioxide BUN Creatinine Glucose POC Glucose 131 H 134 H 116 H Calcium Phosphorus Magnesium Total Bilirubin AST Total Creatine Kinase CK-MB (CK-2) Total Protein Albumin Urine Creatinine Urine Chloride 03/05/17 03/05/17 03/05/17 00:39 07:03 07:03 WBC 11.4 H RBC Hgb 15.4 H Hct 46.3 H MCV 100 H MCH 33 H MCHC RDW Plt Count Lymph % (Auto) [place] % (Auto) [place] # Seg Neutrophils % Seg Neuts % (Manual) Lymphocytes % (Manual) Monocytes % (Manual) 20.0 H Seg Neutrophils # Seg Neutrophils # Man Lymphocytes # (Manual) Monocytes # (Manual) 2.3 H Eosinophils # (Manual) PT INR APTT Heparin Anti-Xa Level POC ABG pH POC ABG pCO2 POC ABG pO2 Sodium Potassium 3.3 L Chloride 95.2 L Carbon Dioxide 31 H BUN Creatinine 0.6 L Glucose 137 H POC Glucose 116 H Calcium Phosphorus Magnesium Total Bilirubin AST Total Creatine Kinase CK-MB (CK-2) Total Protein Albumin Urine Creatinine Urine Chloride 03/05/17 03/05/17 03/05/17 08:05 12:15 16:07 WBC RBC Hgb Hct MCV MCH MCHC RDW Plt Count Lymph % (Auto) [place] % (Auto) [place] # Seg Neutrophils % Seg Neuts % (Manual) Lymphocytes % (Manual) Monocytes % (Manual) Seg Neutrophils # Seg Neutrophils # Man Lymphocytes # (Manual) Monocytes # (Manual) Eosinophils # (Manual) PT INR APTT Heparin Anti-Xa Level POC ABG pH POC ABG pCO2 POC ABG pO2 Sodium Potassium Chloride Carbon Dioxide BUN Creatinine Glucose POC Glucose 134 H 150 H 113 H Calcium Phosphorus Magnesium Total Bilirubin AST Total Creatine Kinase CK-MB (CK-2) Total Protein Albumin Urine Creatinine Urine Chloride 03/06/17 03/06/17 03/06/17 04:45 04:50 11:50 WBC 11.8 H RBC Hgb 15.7 H Hct 47.1 H MCV 98 H MCH 33 H MCHC RDW Plt Count Lymph % (Auto) [place] % (Auto) [place] # Seg Neutrophils % Seg Neuts % (Manual) Lymphocytes % (Manual) 13.0 L Monocytes % (Manual) 17.0 H Seg Neutrophils # Seg Neutrophils # Man Lymphocytes # (Manual) Monocytes # (Manual) 2.0 H Eosinophils # (Manual) PT INR APTT Heparin Anti-Xa Level POC ABG pH POC ABG pCO2 POC ABG pO2 Sodium Potassium 3.2 L Chloride 94.9 L Carbon Dioxide 31 H BUN Creatinine 0.6 L Glucose 125 H POC Glucose 124 H Calcium Phosphorus 4.60 H Magnesium Total Bilirubin AST Total Creatine Kinase CK-MB (CK-2) Total Protein Albumin Urine Creatinine Urine Chloride 03/06/17 03/06/17 03/07/17 15:43 22:07 04:30 WBC RBC Hgb Hct MCV MCH MCHC RDW Plt Count Lymph % (Auto) [place] % (Auto) [place] # Seg Neutrophils % Seg Neuts % (Manual) Lymphocytes % (Manual) Monocytes % (Manual) Seg Neutrophils # Seg Neutrophils # Man Lymphocytes # (Manual) Monocytes # (Manual) Eosinophils # (Manual) PT INR APTT Heparin Anti-Xa Level POC ABG pH POC ABG pCO2 POC ABG pO2 Sodium Potassium 3.4 L Chloride 95.1 L Carbon Dioxide BUN Creatinine 0.6 L Glucose 129 H POC Glucose 121 H 109 H Calcium Phosphorus Magnesium Total Bilirubin AST Total Creatine Kinase CK-MB (CK-2) Total Protein Albumin Urine Creatinine Urine Chloride 03/07/17 03/07/17 03/07/17 04:37 12:02 15:03 WBC 11.3 H RBC Hgb Hct MCV 99 H MCH 34 H MCHC RDW Plt Count Lymph % (Auto) [place] % (Auto) 14.6 H [place] # 1.6 H Seg Neutrophils % Seg Neuts % (Manual) Lymphocytes % (Manual) Monocytes % (Manual) Seg Neutrophils # Seg Neutrophils # Man Lymphocytes # (Manual) Monocytes # (Manual) Eosinophils # (Manual) PT INR APTT Heparin Anti-Xa Level POC ABG pH POC ABG pCO2 POC ABG pO2 Sodium Potassium Chloride Carbon Dioxide BUN Creatinine Glucose POC Glucose 126 H 108 H Calcium Phosphorus Magnesium Total Bilirubin AST Total Creatine Kinase CK-MB (CK-2) Total Protein Albumin Urine Creatinine Urine Chloride 03/08/17 03/08/17 03/08/17 04:58 04:58 08:22 WBC RBC Hgb 16.4 H Hct 49.3 H MCV 99 H MCH 33 H MCHC RDW Plt Count Lymph % (Auto) [place] % (Auto) 12.1 H [place] # 1.2 H Seg Neutrophils % 71.4 H Seg Neuts % (Manual) Lymphocytes % (Manual) Monocytes % (Manual) Seg Neutrophils # Seg Neutrophils # Man Lymphocytes # (Manual) Monocytes # (Manual) Eosinophils # (Manual) PT INR APTT Heparin Anti-Xa Level POC ABG pH POC ABG pCO2 POC ABG pO2 Sodium 136 L Potassium Chloride 93.7 L Carbon Dioxide BUN Creatinine 0.5 L Glucose 127 H POC Glucose 106 H Calcium Phosphorus Magnesium Total Bilirubin AST 50 H Total Creatine Kinase CK-MB (CK-2) Total Protein Albumin 2.7 L Urine Creatinine Urine Chloride 03/08/17 03/08/17 03/09/17 12:14 17:50 05:26 WBC 11.8 H RBC Hgb 16.3 H Hct 49.1 H MCV 98 H MCH 33 H MCHC RDW Plt Count Lymph % (Auto) [place] % (Auto) 10.8 H [place] # 1.3 H Seg Neutrophils % 71.8 H Seg Neuts % (Manual) Lymphocytes % (Manual) Monocytes % (Manual) Seg Neutrophils # 8.4 H Seg Neutrophils # Man Lymphocytes # (Manual) Monocytes # (Manual) Eosinophils # (Manual) PT INR APTT Heparin Anti-Xa Level POC ABG pH POC ABG pCO2 POC ABG pO2 Sodium Potassium Chloride Carbon Dioxide BUN Creatinine Glucose POC Glucose 115 H 117 H Calcium Phosphorus Magnesium Total Bilirubin AST Total Creatine Kinase CK-MB (CK-2) Total Protein Albumin Urine Creatinine Urine Chloride 03/09/17 03/09/17 03/09/17 05:26 12:39 16:19 WBC RBC Hgb Hct MCV MCH MCHC RDW Plt Count Lymph % (Auto) [place] % (Auto) [place] # Seg Neutrophils % Seg Neuts % (Manual) Lymphocytes % (Manual) Monocytes % (Manual) Seg Neutrophils # Seg Neutrophils # Man Lymphocytes # (Manual) Monocytes # (Manual) Eosinophils # (Manual) PT INR APTT Heparin Anti-Xa Level POC ABG pH POC ABG pCO2 POC ABG pO2 Sodium Potassium Chloride 94.7 L Carbon Dioxide BUN Creatinine 0.7 L Glucose 115 H POC Glucose 111 H 116 H Calcium Phosphorus Magnesium Total Bilirubin AST Total Creatine Kinase CK-MB (CK-2) Total Protein Albumin Urine Creatinine Urine Chloride 03/09/17 03/10/17 03/10/17 22:48 08:27 11:46 WBC RBC Hgb Hct MCV MCH MCHC RDW Plt Count Lymph % (Auto) [place] % (Auto) [place] # Seg Neutrophils % Seg Neuts % (Manual) Lymphocytes % (Manual) Monocytes % (Manual) Seg Neutrophils # Seg Neutrophils # Man Lymphocytes # (Manual) Monocytes # (Manual) Eosinophils # (Manual) PT INR APTT Heparin Anti-Xa Level POC ABG pH POC ABG pCO2 POC ABG pO2 Sodium Potassium Chloride Carbon Dioxide BUN Creatinine Glucose POC Glucose 106 H 107 H 116 H Calcium Phosphorus Magnesium Total Bilirubin AST Total Creatine Kinase CK-MB (CK-2) Total Protein Albumin Urine Creatinine Urine Chloride 03/10/17 03/10/17 03/11/17 17:01 21:46 08:10 WBC RBC Hgb Hct MCV MCH MCHC RDW Plt Count Lymph % (Auto) [place] % (Auto) [place] # Seg Neutrophils % Seg Neuts % (Manual) Lymphocytes % (Manual) Monocytes % (Manual) Seg Neutrophils # Seg Neutrophils # Man Lymphocytes # (Manual) Monocytes # (Manual) Eosinophils # (Manual) PT INR APTT Heparin Anti-Xa Level POC ABG pH POC ABG pCO2 POC ABG pO2 Sodium Potassium Chloride Carbon Dioxide BUN Creatinine Glucose POC Glucose 115 H 135 H 109 H Calcium Phosphorus Magnesium Total Bilirubin AST Total Creatine Kinase CK-MB (CK-2) Total Protein Albumin Urine Creatinine Urine Chloride 03/11/17 03/11/17 03/11/17 12:12 17:45 22:14 WBC RBC Hgb Hct MCV MCH MCHC RDW Plt Count Lymph % (Auto) [place] % (Auto) [place] # Seg Neutrophils % Seg Neuts % (Manual) Lymphocytes % (Manual) Monocytes % (Manual) Seg Neutrophils # Seg Neutrophils # Man Lymphocytes # (Manual) Monocytes # (Manual) Eosinophils # (Manual) PT INR APTT Heparin Anti-Xa Level POC ABG pH POC ABG pCO2 POC ABG pO2 Sodium Potassium Chloride Carbon Dioxide BUN Creatinine Glucose POC Glucose 136 H 126 H 132 H Calcium Phosphorus Magnesium Total Bilirubin AST Total Creatine Kinase CK-MB (CK-2) Total Protein Albumin Urine Creatinine Urine Chloride 03/12/17 03/12/17 03/12/17 08:44 08:44 12:56 WBC 14.9 H RBC 5.04 H Hgb 16.1 H Hct 48.8 H MCV 97 H MCH MCHC RDW Plt Count Lymph % (Auto) 11.7 L [place] % (Auto) 11.6 H [place] # 1.7 H Seg Neutrophils % 75.5 H Seg Neuts % (Manual) Lymphocytes % (Manual) Monocytes % (Manual) Seg Neutrophils # 11.2 H Seg Neutrophils # Man Lymphocytes # (Manual) Monocytes # (Manual) Eosinophils # (Manual) PT INR APTT Heparin Anti-Xa Level POC ABG pH POC ABG pCO2 POC ABG pO2 Sodium Potassium 3.2 L Chloride 93.4 L Carbon Dioxide BUN Creatinine 0.6 L Glucose 121 H POC Glucose 129 H Calcium Phosphorus Magnesium Total Bilirubin 1.30 H AST Total Creatine Kinase CK-MB (CK-2) Total Protein Albumin 3.2 L Urine Creatinine Urine Chloride 03/12/17 03/13/17 03/13/17 17:13 09:05 11:36 WBC RBC Hgb Hct MCV MCH MCHC RDW Plt Count Lymph % (Auto) [place] % (Auto) [place] # Seg Neutrophils % Seg Neuts % (Manual) Lymphocytes % (Manual) Monocytes % (Manual) Seg Neutrophils # Seg Neutrophils # Man Lymphocytes # (Manual) Monocytes # (Manual) Eosinophils # (Manual) PT INR APTT Heparin Anti-Xa Level POC ABG pH POC ABG pCO2 POC ABG pO2 Sodium Potassium Chloride Carbon Dioxide BUN Creatinine Glucose POC Glucose 161 H 110 H 126 H Calcium Phosphorus Magnesium Total Bilirubin AST Total Creatine Kinase CK-MB (CK-2) Total Protein Albumin Urine Creatinine Urine Chloride 03/13/17 03/13/17 03/14/17 16:17 21:43 08:40 WBC RBC Hgb Hct MCV MCH MCHC RDW Plt Count Lymph % (Auto) [place] % (Auto) [place] # Seg Neutrophils % Seg Neuts % (Manual) Lymphocytes % (Manual) Monocytes % (Manual) Seg Neutrophils # Seg Neutrophils # Man Lymphocytes # (Manual) Monocytes # (Manual) Eosinophils # (Manual) PT INR APTT Heparin Anti-Xa Level POC ABG pH POC ABG pCO2 POC ABG pO2 Sodium Potassium Chloride Carbon Dioxide BUN Creatinine Glucose POC Glucose 126 H 115 H 106 H Calcium Phosphorus Magnesium Total Bilirubin AST Total Creatine Kinase CK-MB (CK-2) Total Protein Albumin Urine Creatinine Urine Chloride 03/14/17 03/14/17 03/14/17 12:01 17:39 20:30 WBC RBC Hgb Hct MCV MCH MCHC RDW Plt Count Lymph % (Auto) [place] % (Auto) [place] # Seg Neutrophils % Seg Neuts % (Manual) Lymphocytes % (Manual) Monocytes % (Manual) Seg Neutrophils # Seg Neutrophils # Man Lymphocytes # (Manual) Monocytes # (Manual) Eosinophils # (Manual) PT INR APTT Heparin Anti-Xa Level POC ABG pH POC ABG pCO2 POC ABG pO2 Sodium Potassium Chloride Carbon Dioxide BUN Creatinine Glucose POC Glucose 116 H 192 H 122 H Calcium Phosphorus Magnesium Total Bilirubin AST Total Creatine Kinase CK-MB (CK-2) Total Protein Albumin Urine Creatinine Urine Chloride 03/15/17 03/15/17 03/15/17 01:12 06:49 08:46 WBC 23.9 H RBC Hgb 16.1 H Hct 49.4 H MCV 100 H D MCH 33 H MCHC RDW Plt Count Lymph % (Auto) [place] % (Auto) [place] # Seg Neutrophils % Seg Neuts % (Manual) 92.0 H Lymphocytes % (Manual) 4.0 L Monocytes % (Manual) Seg Neutrophils # Seg Neutrophils # Man 22.0 H Lymphocytes # (Manual) 1.0 L Monocytes # (Manual) 1.0 H Eosinophils # (Manual) PT INR APTT Heparin Anti-Xa Level POC ABG pH POC ABG pCO2 POC ABG pO2 Sodium Potassium Chloride 91.0 L Carbon Dioxide 33 H BUN 45 H Creatinine Glucose 160 H POC Glucose 147 H Calcium Phosphorus Magnesium Total Bilirubin AST 41 H Total Creatine Kinase CK-MB (CK-2) Total Protein Albumin 3.0 L Urine Creatinine Urine Chloride 03/15/17 03/15/17 03/15/17 12:11 16:00 20:51 WBC RBC Hgb Hct MCV MCH MCHC RDW Plt Count Lymph % (Auto) [place] % (Auto) [place] # Seg Neutrophils % Seg Neuts % (Manual) Lymphocytes % (Manual) Monocytes % (Manual) Seg Neutrophils # Seg Neutrophils # Man Lymphocytes # (Manual) Monocytes # (Manual) Eosinophils # (Manual) PT INR APTT Heparin Anti-Xa Level POC ABG pH POC ABG pCO2 POC ABG pO2 Sodium Potassium Chloride Carbon Dioxide BUN Creatinine Glucose POC Glucose 144 H 134 H 148 H Calcium Phosphorus Magnesium Total Bilirubin AST Total Creatine Kinase CK-MB (CK-2) Total Protein Albumin Urine Creatinine Urine Chloride 03/16/17 03/16/17 03/16/17 05:59 06:02 09:15 WBC 20.9 H RBC Hgb Hct 45.8 H MCV 99 H MCH 33 H MCHC RDW Plt Count Lymph % (Auto) [place] % (Auto) [place] # Seg Neutrophils % Seg Neuts % (Manual) 92.0 H Lymphocytes % (Manual) 4.0 L Monocytes % (Manual) Seg Neutrophils # Seg Neutrophils # Man 19.2 H Lymphocytes # (Manual) 0.8 L Monocytes # (Manual) Eosinophils # (Manual) PT INR APTT Heparin Anti-Xa Level POC ABG pH POC ABG pCO2 POC ABG pO2 Sodium Potassium Chloride 92.3 L Carbon Dioxide 34 H BUN 44 H Creatinine Glucose 150 H POC Glucose 127 H Calcium Phosphorus Magnesium Total Bilirubin AST Total Creatine Kinase CK-MB (CK-2) Total Protein Albumin Urine Creatinine Urine Chloride 03/16/17 03/16/17 03/17/17 11:59 18:08 07:06 WBC RBC Hgb Hct MCV MCH MCHC RDW Plt Count Lymph % (Auto) [place] % (Auto) [place] # Seg Neutrophils % Seg Neuts % (Manual) Lymphocytes % (Manual) Monocytes % (Manual) Seg Neutrophils # Seg Neutrophils # Man Lymphocytes # (Manual) Monocytes # (Manual) Eosinophils # (Manual) PT INR APTT Heparin Anti-Xa Level POC ABG pH POC ABG pCO2 POC ABG pO2 Sodium Potassium Chloride 93.3 L Carbon Dioxide 35 H BUN 31 H Creatinine Glucose 132 H POC Glucose 147 H 138 H Calcium Phosphorus Magnesium Total Bilirubin AST Total Creatine Kinase CK-MB (CK-2) Total Protein Albumin Urine Creatinine Urine Chloride 03/17/17 03/17/17 03/17/17 07:06 07:14 12:35 WBC 16.6 H RBC Hgb 15.6 H Hct 47.5 H MCV 99 H MCH 33 H MCHC RDW Plt Count Lymph % (Auto) 8.4 L [place] % (Auto) 8.1 H [place] # 1.3 H Seg Neutrophils % 81.8 H Seg Neuts % (Manual) Lymphocytes % (Manual) Monocytes % (Manual) Seg Neutrophils # 13.6 H Seg Neutrophils # Man Lymphocytes # (Manual) Monocytes # (Manual) Eosinophils # (Manual) PT INR APTT Heparin Anti-Xa Level POC ABG pH POC ABG pCO2 POC ABG pO2 Sodium Potassium Chloride Carbon Dioxide BUN Creatinine Glucose POC Glucose 119 H 132 H Calcium Phosphorus Magnesium Total Bilirubin AST Total Creatine Kinase CK-MB (CK-2) Total Protein Albumin Urine Creatinine Urine Chloride 03/18/17 03/18/17 03/18/17 05:05 06:15 06:15 WBC 15.8 H RBC Hgb 16.5 H Hct 49.3 H MCV 99 H MCH 33 H MCHC RDW Plt Count Lymph % (Auto) [place] % (Auto) [place] # Seg Neutrophils % Seg Neuts % (Manual) 88.0 H Lymphocytes % (Manual) 2.0 L Monocytes % (Manual) 8.0 H Seg Neutrophils # Seg Neutrophils # Man 13.9 H Lymphocytes # (Manual) 0.3 L Monocytes # (Manual) 1.3 H Eosinophils # (Manual) PT INR APTT Heparin Anti-Xa Level POC ABG pH POC ABG pCO2 72.9 H POC ABG pO2 168 H Sodium 147 H Potassium 3.5 L Chloride 95.3 L Carbon Dioxide 37 H BUN 29 H Creatinine Glucose 155 H POC Glucose Calcium Phosphorus Magnesium Total Bilirubin AST Total Creatine Kinase CK-MB (CK-2) Total Protein Albumin Urine Creatinine Urine Chloride 03/18/17 03/18/17 03/18/17 08:27 11:24 11:31 WBC RBC Hgb Hct MCV MCH MCHC RDW Plt Count Lymph % (Auto) [place] % (Auto) [place] # Seg Neutrophils % Seg Neuts % (Manual) Lymphocytes % (Manual) Monocytes % (Manual) Seg Neutrophils # Seg Neutrophils # Man Lymphocytes # (Manual) Monocytes # (Manual) Eosinophils # (Manual) PT INR APTT Heparin Anti-Xa Level POC ABG pH 7.530 H POC ABG pCO2 POC ABG pO2 60 L Sodium Potassium Chloride Carbon Dioxide BUN Creatinine Glucose POC Glucose 123 H 176 H Calcium Phosphorus Magnesium Total Bilirubin AST Total Creatine Kinase CK-MB (CK-2) Total Protein Albumin Urine Creatinine Urine Chloride 06/12/0303/18/17 03/18/17 14:10 15:24 17:23 WBC RBC Hgb 15.4 H Hct 46.4 H MCV MCH MCHC RDW Plt Count Lymph % (Auto) [place] % (Auto) [place] # Seg Neutrophils % Seg Neuts % (Manual) Lymphocytes % (Manual) Monocytes % (Manual) Seg Neutrophils # Seg Neutrophils # Man Lymphocytes # (Manual) Monocytes # (Manual) Eosinophils # (Manual) PT INR APTT Heparin Anti-Xa Level POC ABG pH POC ABG pCO2 POC ABG pO2 Sodium Potassium Chloride 94.5 L Carbon Dioxide 33 H BUN 33 H Creatinine 1.6 H Glucose 241 H POC Glucose 244 H Calcium Phosphorus Magnesium Total Bilirubin AST Total Creatine Kinase CK-MB (CK-2) Total Protein Albumin 3.0 L Urine Creatinine Urine Chloride 03/18/17 03/18/17 03/19/17 17:23 21:33 03:54 WBC 25.4 H RBC Hgb Hct MCV 98 H MCH MCHC RDW Plt Count Lymph % (Auto) [place] % (Auto) [place] # Seg Neutrophils % Seg Neuts % (Manual) 83.0 H Lymphocytes % (Manual) 4.5 L Monocytes % (Manual) 8.0 H Seg Neutrophils # Seg Neutrophils # Man 21.1 H Lymphocytes # (Manual) 1.1 L Monocytes # (Manual) 2.0 H Eosinophils # (Manual) PT 17.1 H INR 1.40 H APTT Heparin Anti-Xa Level POC ABG pH POC ABG pCO2 POC ABG pO2 Sodium Potassium Chloride Carbon Dioxide BUN Creatinine Glucose POC Glucose 164 H Calcium Phosphorus Magnesium Total Bilirubin AST Total Creatine Kinase CK-MB (CK-2) Total Protein Albumin Urine Creatinine Urine Chloride 03/19/17 03/19/17 03/19/17 03:54 06:55 06:55 WBC RBC Hgb Hct MCV MCH MCHC RDW Plt Count Lymph % (Auto) [place] % (Auto) [place] # Seg Neutrophils % Seg Neuts % (Manual) Lymphocytes % (Manual) Monocytes % (Manual) Seg Neutrophils # Seg Neutrophils # Man Lymphocytes # (Manual) Monocytes # (Manual) Eosinophils # (Manual) PT INR APTT Heparin Anti-Xa Level 0.29 L POC ABG pH POC ABG pCO2 POC ABG pO2 Sodium 146 H Potassium 3.4 L Chloride 97.8 L Carbon Dioxide 33 H BUN 30 H Creatinine Glucose 134 H POC Glucose Calcium Phosphorus Magnesium 1.60 L Total Bilirubin AST Total Creatine Kinase CK-MB (CK-2) Total Protein Albumin Urine Creatinine Urine Chloride 03/19/17 03/19/17 03/19/17 08:01 12:56 14:54 WBC RBC Hgb Hct MCV MCH MCHC RDW Plt Count Lymph % (Auto) [place] % (Auto) [place] # Seg Neutrophils % Seg Neuts % (Manual) Lymphocytes % (Manual) Monocytes % (Manual) Seg Neutrophils # Seg Neutrophils # Man Lymphocytes # (Manual) Monocytes # (Manual) Eosinophils # (Manual) PT INR APTT Heparin Anti-Xa Level POC ABG pH POC ABG pCO2 57.8 H POC ABG pO2 71 L Sodium Potassium Chloride Carbon Dioxide BUN Creatinine Glucose POC Glucose 139 H 167 H Calcium Phosphorus Magnesium Total Bilirubin AST Total Creatine Kinase CK-MB (CK-2) Total Protein Albumin Urine Creatinine Urine Chloride 03/19/17 03/19/17 03/20/17 15:53 21:04 03:36 WBC RBC Hgb 15.3 H Hct 48.1 H MCV MCH MCHC RDW Plt Count Lymph % (Auto) [place] % (Auto) [place] # Seg Neutrophils % Seg Neuts % (Manual) Lymphocytes % (Manual) Monocytes % (Manual) Seg Neutrophils # Seg Neutrophils # Man Lymphocytes # (Manual) Monocytes # (Manual) Eosinophils # (Manual) PT INR APTT Heparin Anti-Xa Level POC ABG pH POC ABG pCO2 POC ABG pO2 Sodium Potassium Chloride Carbon Dioxide BUN Creatinine Glucose POC Glucose 172 H 159 H Calcium Phosphorus Magnesium Total Bilirubin AST Total Creatine Kinase CK-MB (CK-2) Total Protein Albumin Urine Creatinine Urine Chloride 03/20/17 03/20/17 03/20/17 07:45 12:02 14:07 WBC RBC Hgb Hct MCV MCH MCHC RDW Plt Count Lymph % (Auto) [place] % (Auto) [place] # Seg Neutrophils % Seg Neuts % (Manual) Lymphocytes % (Manual) Monocytes % (Manual) Seg Neutrophils # Seg Neutrophils # Man Lymphocytes # (Manual) Monocytes # (Manual) Eosinophils # (Manual) PT INR APTT Heparin Anti-Xa Level POC ABG pH 7.312 L POC ABG pCO2 68.3 H POC ABG pO2 47 L Sodium Potassium Chloride Carbon Dioxide BUN Creatinine Glucose POC Glucose 160 H 142 H Calcium Phosphorus Magnesium Total Bilirubin AST Total Creatine Kinase CK-MB (CK-2) Total Protein Albumin Urine Creatinine Urine Chloride 03/20/17 03/20/17 03/20/17 15:57 15:59 19:50 WBC RBC Hgb Hct MCV MCH MCHC RDW Plt Count Lymph % (Auto) [place] % (Auto) [place] # Seg Neutrophils % Seg Neuts % (Manual) Lymphocytes % (Manual) Monocytes % (Manual) Seg Neutrophils # Seg Neutrophils # Man Lymphocytes # (Manual) Monocytes # (Manual) Eosinophils # (Manual) PT INR APTT Heparin Anti-Xa Level POC ABG pH 7.214 L POC ABG pCO2 82.8 H 58.7 H POC ABG pO2 69 L Sodium Potassium Chloride Carbon Dioxide BUN Creatinine Glucose POC Glucose 149 H Calcium Phosphorus Magnesium Total Bilirubin AST Total Creatine Kinase CK-MB (CK-2) Total Protein Albumin Urine Creatinine Urine Chloride 03/20/17 03/20/17 03/21/17 21:19 23:34 04:18 WBC RBC Hgb Hct MCV MCH MCHC RDW Plt Count Lymph % (Auto) [place] % (Auto) [place] # Seg Neutrophils % Seg Neuts % (Manual) Lymphocytes % (Manual) Monocytes % (Manual) Seg Neutrophils # Seg Neutrophils # Man Lymphocytes # (Manual) Monocytes # (Manual) Eosinophils # (Manual) PT INR APTT Heparin Anti-Xa Level 0.20 L POC ABG pH POC ABG pCO2 48.6 H POC ABG pO2 79 L Sodium Potassium Chloride Carbon Dioxide BUN Creatinine Glucose POC Glucose 206 H Calcium Phosphorus Magnesium Total Bilirubin AST Total Creatine Kinase CK-MB (CK-2) Total Protein Albumin Urine Creatinine Urine Chloride 03/21/17 03/21/17 03/21/17 04:21 04:21 05:23 WBC RBC Hgb Hct MCV MCH MCHC RDW Plt Count Lymph % (Auto) [place] % (Auto) [place] # Seg Neutrophils % Seg Neuts % (Manual) Lymphocytes % (Manual) Monocytes % (Manual) Seg Neutrophils # Seg Neutrophils # Man Lymphocytes # (Manual) Monocytes # (Manual) Eosinophils # (Manual) PT INR APTT Heparin Anti-Xa Level 0.24 L POC ABG pH POC ABG pCO2 POC ABG pO2 Sodium 147 H Potassium Chloride Carbon Dioxide BUN 42 H Creatinine 2.6 H D Glucose 209 H POC Glucose 181 H Calcium 7.9 L Phosphorus Magnesium Total Bilirubin AST Total Creatine Kinase CK-MB (CK-2) Total Protein Albumin Urine Creatinine Urine Chloride 03/21/17 03/21/17 03/21/17 13:16 13:16 14:43 WBC 27.8 H RBC Hgb Hct MCV 101 H D MCH MCHC RDW Plt Count Lymph % (Auto) [place] % (Auto) [place] # Seg Neutrophils % Seg Neuts % (Manual) 76.0 H Lymphocytes % (Manual) 7.0 L Monocytes % (Manual) Seg Neutrophils # Seg Neutrophils # Man 21.1 H Lymphocytes # (Manual) Monocytes # (Manual) 1.1 H Eosinophils # (Manual) PT INR APTT Heparin Anti-Xa Level 0.25 L POC ABG pH 7.474 H POC ABG pCO2 POC ABG pO2 59 L Sodium Potassium Chloride Carbon Dioxide BUN Creatinine Glucose POC Glucose Calcium Phosphorus Magnesium Total Bilirubin AST Total Creatine Kinase CK-MB (CK-2) Total Protein Albumin Urine Creatinine Urine Chloride 03/21/17 03/21/17 03/21/17 17:00 18:20 23:40 WBC RBC Hgb Hct MCV MCH MCHC RDW Plt Count Lymph % (Auto) [place] % (Auto) [place] # Seg Neutrophils % Seg Neuts % (Manual) Lymphocytes % (Manual) Monocytes % (Manual) Seg Neutrophils # Seg Neutrophils # Man Lymphocytes # (Manual) Monocytes # (Manual) Eosinophils # (Manual) PT INR APTT Heparin Anti-Xa Level POC ABG pH POC ABG pCO2 POC ABG pO2 Sodium Potassium Chloride Carbon Dioxide BUN 48 H Creatinine 3.2 H Glucose 135 H POC Glucose 152 H 136 H Calcium 6.8 L Phosphorus Magnesium Total Bilirubin AST Total Creatine Kinase CK-MB (CK-2) Total Protein 5.3 L D Albumin 1.7 L Urine Creatinine Urine Chloride 03/22/17 03/22/17 03/22/17 04:30 04:30 04:30 WBC 29.3 H RBC Hgb Hct MCV 100 H MCH MCHC 31 L RDW 15.3 H Plt Count Lymph % (Auto) [place] % (Auto) [place] # Seg Neutrophils % Seg Neuts % (Manual) Lymphocytes % (Manual) Monocytes % (Manual) Seg Neutrophils # Seg Neutrophils # Man Lymphocytes # (Manual) Monocytes # (Manual) Eosinophils # (Manual) PT INR APTT Heparin Anti-Xa Level 0.29 L POC ABG pH POC ABG pCO2 POC ABG pO2 Sodium Potassium Chloride Carbon Dioxide BUN 60 H Creatinine 4.3 H Glucose 118 H POC Glucose Calcium 8.2 L D Phosphorus Magnesium Total Bilirubin AST Total Creatine Kinase CK-MB (CK-2) Total Protein Albumin 1.8 L Urine Creatinine Urine Chloride 03/22/17 03/22/17 03/22/17 05:08 07:00 07:00 WBC 24.8 H RBC Hgb Hct MCV 100 H MCH MCHC RDW Plt Count Lymph % (Auto) [place] % (Auto) [place] # Seg Neutrophils % Seg Neuts % (Manual) 94.0 H Lymphocytes % (Manual) 0 L Monocytes % (Manual) Seg Neutrophils # Seg Neutrophils # Man 23.3 H Lymphocytes # (Manual) 0.0 L Monocytes # (Manual) Eosinophils # (Manual) 0.7 H PT INR APTT Heparin Anti-Xa Level POC ABG pH POC ABG pCO2 POC ABG pO2 Sodium 147 H Potassium Chloride 109.2 H Carbon Dioxide BUN 58 H Creatinine 4.1 H Glucose 117 H POC Glucose 124 H Calcium 7.4 L Phosphorus Magnesium Total Bilirubin AST Total Creatine Kinase CK-MB (CK-2) Total Protein Albumin Urine Creatinine Urine Chloride 03/22/17 03/22/17 03/22/17 08:40 11:37 14:30 WBC RBC Hgb Hct MCV MCH MCHC RDW Plt Count Lymph % (Auto) [place] % (Auto) [place] # Seg Neutrophils % Seg Neuts % (Manual) Lymphocytes % (Manual) Monocytes % (Manual) Seg Neutrophils # Seg Neutrophils # Man Lymphocytes # (Manual) Monocytes # (Manual) Eosinophils # (Manual) PT 16.2 H INR 1.31 H APTT 68.9 H* Heparin Anti-Xa Level < 0.10 L POC ABG pH POC ABG pCO2 POC ABG pO2 Sodium Potassium Chloride Carbon Dioxide BUN Creatinine Glucose POC Glucose 159 H Calcium Phosphorus Magnesium Total Bilirubin AST Total Creatine Kinase CK-MB (CK-2) Total Protein Albumin Urine Creatinine Urine Chloride 03/22/17 03/22/17 03/22/17 17:53 21:44 23:54 WBC RBC Hgb 11.6 L Hct 33.1 L MCV MCH MCHC RDW Plt Count Lymph % (Auto) [place] % (Auto) [place] # Seg Neutrophils % Seg Neuts % (Manual) Lymphocytes % (Manual) Monocytes % (Manual) Seg Neutrophils # Seg Neutrophils # Man Lymphocytes # (Manual) Monocytes # (Manual) Eosinophils # (Manual) PT INR APTT Heparin Anti-Xa Level POC ABG pH POC ABG pCO2 POC ABG pO2 Sodium Potassium Chloride Carbon Dioxide BUN Creatinine Glucose POC Glucose 142 H 131 H Calcium Phosphorus Magnesium Total Bilirubin AST Total Creatine Kinase CK-MB (CK-2) Total Protein Albumin Urine Creatinine Urine Chloride 03/23/17 03/23/17 03/23/17 04:08 05:29 06:34 WBC RBC Hgb Hct MCV MCH MCHC RDW Plt Count Lymph % (Auto) [place] % (Auto) [place] # Seg Neutrophils % Seg Neuts % (Manual) Lymphocytes % (Manual) Monocytes % (Manual) Seg Neutrophils # Seg Neutrophils # Man Lymphocytes # (Manual) Monocytes # (Manual) Eosinophils # (Manual) PT INR APTT Heparin Anti-Xa Level POC ABG pH POC ABG pCO2 POC ABG pO2 75 L Sodium Potassium Chloride Carbon Dioxide 21 L BUN 85 H Creatinine 6.0 H Glucose 134 H POC Glucose 134 H Calcium 8.1 L Phosphorus Magnesium Total Bilirubin AST Total Creatine Kinase CK-MB (CK-2) Total Protein Albumin Urine Creatinine Urine Chloride 03/23/17 03/23/17 03/23/17 12:09 17:20 17:52 WBC RBC Hgb Hct MCV MCH MCHC RDW Plt Count Lymph % (Auto) [place] % (Auto) [place] # Seg Neutrophils % Seg Neuts % (Manual) Lymphocytes % (Manual) Monocytes % (Manual) Seg Neutrophils # Seg Neutrophils # Man Lymphocytes # (Manual) Monocytes # (Manual) Eosinophils # (Manual) PT INR APTT Heparin Anti-Xa Level 1.39 H POC ABG pH POC ABG pCO2 POC ABG pO2 Sodium Potassium Chloride Carbon Dioxide BUN Creatinine Glucose POC Glucose 133 H 151 H Calcium Phosphorus Magnesium Total Bilirubin AST Total Creatine Kinase CK-MB (CK-2) Total Protein Albumin Urine Creatinine Urine Chloride 03/23/17 03/24/17 03/24/17 23:59 03:15 03:15 WBC 23.9 H RBC 3.58 L Hgb 11.6 L Hct 34.6 L MCV 97 H D MCH MCHC RDW Plt Count 122 L Lymph % (Auto) [place] % (Auto) [place] # Seg Neutrophils % Seg Neuts % (Manual) Lymphocytes % (Manual) Monocytes % (Manual) Seg Neutrophils # Seg Neutrophils # Man Lymphocytes # (Manual) Monocytes # (Manual) Eosinophils # (Manual) PT INR APTT Heparin Anti-Xa Level POC ABG pH POC ABG pCO2 POC ABG pO2 Sodium 135 L Potassium Chloride 95.0 L Carbon Dioxide BUN 71 H Creatinine 5.2 H Glucose 123 H POC Glucose 124 H Calcium 8.0 L Phosphorus Magnesium Total Bilirubin AST Total Creatine Kinase CK-MB (CK-2) Total Protein Albumin Urine Creatinine Urine Chloride 03/24/17 03/24/17 03/24/17 03:15 04:53 11:58 WBC RBC Hgb Hct MCV MCH MCHC RDW Plt Count Lymph % (Auto) [place] % (Auto) [place] # Seg Neutrophils % Seg Neuts % (Manual) Lymphocytes % (Manual) Monocytes % (Manual) Seg Neutrophils # Seg Neutrophils # Man Lymphocytes # (Manual) Monocytes # (Manual) Eosinophils # (Manual) PT INR APTT Heparin Anti-Xa Level 0.20 L POC ABG pH POC ABG pCO2 POC ABG pO2 72 L Sodium Potassium Chloride Carbon Dioxide BUN Creatinine Glucose POC Glucose 121 H Calcium Phosphorus Magnesium Total Bilirubin AST Total Creatine Kinase CK-MB (CK-2) Total Protein Albumin Urine Creatinine Urine Chloride 03/24/17 03/25/17 03/25/17 18:16 00:24 05:30 WBC RBC Hgb Hct MCV MCH MCHC RDW Plt Count Lymph % (Auto) [place] % (Auto) [place] # Seg Neutrophils % Seg Neuts % (Manual) Lymphocytes % (Manual) Monocytes % (Manual) Seg Neutrophils # Seg Neutrophils # Man Lymphocytes # (Manual) Monocytes # (Manual) Eosinophils # (Manual) PT INR APTT Heparin Anti-Xa Level POC ABG pH POC ABG pCO2 34.2 L POC ABG pO2 Sodium Potassium Chloride Carbon Dioxide BUN Creatinine Glucose POC Glucose 117 H 107 H Calcium Phosphorus Magnesium Total Bilirubin AST Total Creatine Kinase CK-MB (CK-2) Total Protein Albumin Urine Creatinine Urine Chloride 03/25/17 03/25/17 03/25/17 05:35 11:45 16:48 WBC RBC Hgb Hct MCV MCH MCHC RDW Plt Count Lymph % (Auto) [place] % (Auto) [place] # Seg Neutrophils % Seg Neuts % (Manual) Lymphocytes % (Manual) Monocytes % (Manual) Seg Neutrophils # Seg Neutrophils # Man Lymphocytes # (Manual) Monocytes # (Manual) Eosinophils # (Manual) PT INR APTT Heparin Anti-Xa Level POC ABG pH POC ABG pCO2 POC ABG pO2 Sodium 132 L Potassium Chloride 92.0 L Carbon Dioxide 20 L BUN 102 H Creatinine 7.2 H Glucose 101 H POC Glucose 127 H 114 H Calcium 8.3 L Phosphorus Magnesium Total Bilirubin AST Total Creatine Kinase CK-MB (CK-2) Total Protein Albumin Urine Creatinine Urine Chloride 03/26/17 03/26/17 03/26/17 00:17 04:15 04:15 WBC 21.1 H RBC 3.52 L Hgb 11.0 L Hct 33.2 L MCV 95 H MCH MCHC RDW Plt Count 121 L Lymph % (Auto) [place] % (Auto) [place] # Seg Neutrophils % Seg Neuts % (Manual) Lymphocytes % (Manual) Monocytes % (Manual) Seg Neutrophils # Seg Neutrophils # Man Lymphocytes # (Manual) Monocytes # (Manual) Eosinophils # (Manual) PT INR APTT Heparin Anti-Xa Level POC ABG pH POC ABG pCO2 POC ABG pO2 Sodium 133 L Potassium Chloride 92.9 L Carbon Dioxide 21 L BUN 77 H Creatinine 5.4 H Glucose 115 H POC Glucose 114 H Calcium 8.1 L Phosphorus Magnesium Total Bilirubin AST Total Creatine Kinase CK-MB (CK-2) Total Protein Albumin Urine Creatinine Urine Chloride 03/26/17 03/26/17 03/26/17 04:49 11:36 23:29 WBC RBC Hgb Hct MCV MCH MCHC RDW Plt Count Lymph % (Auto) [place] % (Auto) [place] # Seg Neutrophils % Seg Neuts % (Manual) Lymphocytes % (Manual) Monocytes % (Manual) Seg Neutrophils # Seg Neutrophils # Man Lymphocytes # (Manual) Monocytes # (Manual) Eosinophils # (Manual) PT INR APTT Heparin Anti-Xa Level POC ABG pH POC ABG pCO2 POC ABG pO2 Sodium Potassium Chloride Carbon Dioxide BUN Creatinine Glucose POC Glucose 127 H 123 H 125 H Calcium Phosphorus Magnesium Total Bilirubin AST Total Creatine Kinase CK-MB (CK-2) Total Protein Albumin Urine Creatinine Urine Chloride 03/27/17 03/27/17 03/27/17 04:00 04:46 05:06 WBC RBC Hgb Hct MCV MCH MCHC RDW Plt Count Lymph % (Auto) [place] % (Auto) [place] # Seg Neutrophils % Seg Neuts % (Manual) Lymphocytes % (Manual) Monocytes % (Manual) Seg Neutrophils # Seg Neutrophils # Man Lymphocytes # (Manual) Monocytes # (Manual) Eosinophils # (Manual) PT INR APTT Heparin Anti-Xa Level POC ABG pH POC ABG pCO2 31.4 L POC ABG pO2 Sodium 132 L Potassium Chloride 90.5 L Carbon Dioxide 19 L BUN 95 H Creatinine 6.7 H Glucose 110 H POC Glucose 116 H Calcium Phosphorus Magnesium Total Bilirubin AST Total Creatine Kinase CK-MB (CK-2) Total Protein Albumin Urine Creatinine Urine Chloride 03/27/17 03/27/17 03/27/17 08:11 08:11 11:34 WBC 24.7 H RBC Hgb 11.5 L Hct 35.0 L MCV 95 H MCH MCHC RDW Plt Count Lymph % (Auto) [place] % (Auto) [place] # Seg Neutrophils % Seg Neuts % (Manual) Lymphocytes % (Manual) Monocytes % (Manual) Seg Neutrophils # Seg Neutrophils # Man Lymphocytes # (Manual) Monocytes # (Manual) Eosinophils # (Manual) PT INR APTT Heparin Anti-Xa Level < 0.10 L POC ABG pH POC ABG pCO2 POC ABG pO2 Sodium Potassium Chloride Carbon Dioxide BUN Creatinine Glucose POC Glucose 118 H Calcium Phosphorus Magnesium Total Bilirubin AST Total Creatine Kinase CK-MB (CK-2) Total Protein Albumin Urine Creatinine Urine Chloride 03/27/17 03/27/17 03/28/17 16:44 23:59 05:07 WBC RBC Hgb Hct MCV MCH MCHC RDW Plt Count Lymph % (Auto) [place] % (Auto) [place] # Seg Neutrophils % Seg Neuts % (Manual) Lymphocytes % (Manual) Monocytes % (Manual) Seg Neutrophils # Seg Neutrophils # Man Lymphocytes # (Manual) Monocytes # (Manual) Eosinophils # (Manual) PT INR APTT Heparin Anti-Xa Level POC ABG pH POC ABG pCO2 POC ABG pO2 Sodium Potassium Chloride Carbon Dioxide BUN Creatinine Glucose POC Glucose 110 H 109 H 110 H Calcium Phosphorus Magnesium Total Bilirubin AST Total Creatine Kinase CK-MB (CK-2) Total Protein Albumin Urine Creatinine Urine Chloride 03/28/17 03/28/17 03/28/17 07:00 11:24 11:50 WBC 26.6 H RBC 3.42 L Hgb 10.8 L Hct 33.2 L MCV 97 H MCH MCHC RDW 15.4 H Plt Count Lymph % (Auto) [place] % (Auto) [place] # Seg Neutrophils % Seg Neuts % (Manual) Lymphocytes % (Manual) Monocytes % (Manual) Seg Neutrophils # Seg Neutrophils # Man Lymphocytes # (Manual) Monocytes # (Manual) Eosinophils # (Manual) PT INR APTT Heparin Anti-Xa Level POC ABG pH POC ABG pCO2 POC ABG pO2 Sodium 131 L Potassium 5.3 H Chloride 86.6 L Carbon Dioxide 17 L BUN 112 H Creatinine 7.9 H Glucose 120 H POC Glucose 141 H Calcium Phosphorus Magnesium Total Bilirubin AST Total Creatine Kinase CK-MB (CK-2) Total Protein Albumin Urine Creatinine Urine Chloride 03/28/17 03/28/17 03/28/17 17:25 18:04 23:07 WBC RBC Hgb Hct MCV MCH MCHC RDW Plt Count Lymph % (Auto) [place] % (Auto) [place] # Seg Neutrophils % Seg Neuts % (Manual) Lymphocytes % (Manual) Monocytes % (Manual) Seg Neutrophils # Seg Neutrophils # Man Lymphocytes # (Manual) Monocytes # (Manual) Eosinophils # (Manual) PT INR APTT Heparin Anti-Xa Level 0.23 L POC ABG pH POC ABG pCO2 POC ABG pO2 Sodium Potassium Chloride Carbon Dioxide BUN Creatinine Glucose POC Glucose 128 H 115 H Calcium Phosphorus Magnesium Total Bilirubin AST Total Creatine Kinase CK-MB (CK-2) Total Protein Albumin Urine Creatinine Urine Chloride 03/29/17 03/29/17 03/29/17 03:23 05:16 08:20 WBC RBC Hgb Hct MCV MCH MCHC RDW Plt Count Lymph % (Auto) [place] % (Auto) [place] # Seg Neutrophils % Seg Neuts % (Manual) Lymphocytes % (Manual) Monocytes % (Manual) Seg Neutrophils # Seg Neutrophils # Man Lymphocytes # (Manual) Monocytes # (Manual) Eosinophils # (Manual) PT INR APTT Heparin Anti-Xa Level 0.10 L POC ABG pH POC ABG pCO2 POC ABG pO2 Sodium 126 L Potassium 5.6 H Chloride 87.5 L Carbon Dioxide 21 L BUN 84 H Creatinine 6.0 H Glucose 144 H POC Glucose 146 H Calcium 7.9 L Phosphorus Magnesium Total Bilirubin AST Total Creatine Kinase CK-MB (CK-2) Total Protein Albumin Urine Creatinine Urine Chloride 03/29/17 03/29/17 03/29/17 08:20 09:13 10:00 WBC 27.6 H RBC 3.27 L Hgb 10.2 L Hct 31.8 L MCV 97 H MCH MCHC RDW 15.3 H Plt Count Lymph % (Auto) [place] % (Auto) [place] # Seg Neutrophils % Seg Neuts % (Manual) Lymphocytes % (Manual) Monocytes % (Manual) Seg Neutrophils # Seg Neutrophils # Man Lymphocytes # (Manual) Monocytes # (Manual) Eosinophils # (Manual) PT INR APTT Heparin Anti-Xa Level 0.84 H POC ABG pH 7.204 L POC ABG pCO2 52.8 H POC ABG pO2 57 L Sodium Potassium Chloride Carbon Dioxide BUN Creatinine Glucose POC Glucose Calcium Phosphorus Magnesium Total Bilirubin AST Total Creatine Kinase CK-MB (CK-2) Total Protein Albumin Urine Creatinine Urine Chloride 03/29/17 03/29/17 03/29/17 10:24 12:27 16:44 WBC RBC Hgb Hct MCV MCH MCHC RDW Plt Count Lymph % (Auto) [place] % (Auto) [place] # Seg Neutrophils % Seg Neuts % (Manual) Lymphocytes % (Manual) Monocytes % (Manual) Seg Neutrophils # Seg Neutrophils # Man Lymphocytes # (Manual) Monocytes # (Manual) Eosinophils # (Manual) PT INR APTT Heparin Anti-Xa Level < 0.10 L POC ABG pH 7.305 L POC ABG pCO2 POC ABG pO2 73 L Sodium Potassium Chloride Carbon Dioxide BUN Creatinine Glucose POC Glucose 152 H Calcium Phosphorus Magnesium Total Bilirubin AST Total Creatine Kinase CK-MB (CK-2) Total Protein Albumin Urine Creatinine Urine Chloride 03/29/17 03/29/17 03/29/17 17:48 18:56 22:10 WBC RBC Hgb Hct MCV MCH MCHC RDW Plt Count Lymph % (Auto) [place] % (Auto) [place] # Seg Neutrophils % Seg Neuts % (Manual) Lymphocytes % (Manual) Monocytes % (Manual) Seg Neutrophils # Seg Neutrophils # Man Lymphocytes # (Manual) Monocytes # (Manual) Eosinophils # (Manual) PT INR APTT Heparin Anti-Xa Level POC ABG pH POC ABG pCO2 POC ABG pO2 Sodium 125 L Potassium 5.8 H Chloride 85.4 L Carbon Dioxide 16 L BUN 96 H Creatinine 6.9 H Glucose 135 H POC Glucose 130 H Calcium Phosphorus Magnesium Total Bilirubin AST Total Creatine Kinase CK-MB (CK-2) Total Protein Albumin Urine Creatinine 86.5 H Urine Chloride 15.2 L 03/30/17 03/30/17 03/30/17 00:11 01:00 05:42 WBC RBC Hgb Hct MCV MCH MCHC RDW Plt Count Lymph % (Auto) [place] % (Auto) [place] # Seg Neutrophils % Seg Neuts % (Manual) Lymphocytes % (Manual) Monocytes % (Manual) Seg Neutrophils # Seg Neutrophils # Man Lymphocytes # (Manual) Monocytes # (Manual) Eosinophils # (Manual) PT INR APTT Heparin Anti-Xa Level 0.80 H POC ABG pH POC ABG pCO2 POC ABG pO2 Sodium Potassium Chloride Carbon Dioxide BUN Creatinine Glucose POC Glucose 146 H 162 H Calcium Phosphorus Magnesium Total Bilirubin AST Total Creatine Kinase CK-MB (CK-2) Total Protein Albumin Urine Creatinine Urine Chloride 03/30/17 03/30/17 03/30/17 07:32 07:38 08:20 WBC 27.7 H RBC 3.14 L Hgb 9.7 L Hct 30.1 L MCV 96 H MCH MCHC RDW 16.2 H Plt Count Lymph % (Auto) [place] % (Auto) [place] # Seg Neutrophils % Seg Neuts % (Manual) 93.0 H Lymphocytes % (Manual) 1.0 L Monocytes % (Manual) Seg Neutrophils # Seg Neutrophils # Man 25.8 H Lymphocytes # (Manual) 0.3 L Monocytes # (Manual) 1.0 H Eosinophils # (Manual) PT INR APTT Heparin Anti-Xa Level 0.99 H POC ABG pH POC ABG pCO2 POC ABG pO2 Sodium 127 L Potassium 5.9 H Chloride 88.5 L Carbon Dioxide 16 L BUN 101 H Creatinine 7.5 H Glucose 147 H POC Glucose Calcium 8.0 L Phosphorus Magnesium Total Bilirubin AST Total Creatine Kinase CK-MB (CK-2) Total Protein Albumin Urine Creatinine Urine Chloride 03/30/17 03/30/17 03/30/17 12:19 16:07 16:58 WBC RBC Hgb Hct MCV MCH MCHC RDW Plt Count Lymph % (Auto) [place] % (Auto) [place] # Seg Neutrophils % Seg Neuts % (Manual) Lymphocytes % (Manual) Monocytes % (Manual) Seg Neutrophils # Seg Neutrophils # Man Lymphocytes # (Manual) Monocytes # (Manual) Eosinophils # (Manual) PT INR APTT Heparin Anti-Xa Level 1.07 H POC ABG pH POC ABG pCO2 POC ABG pO2 62 L Sodium Potassium Chloride Carbon Dioxide BUN Creatinine Glucose POC Glucose 179 H Calcium Phosphorus Magnesium Total Bilirubin AST Total Creatine Kinase CK-MB (CK-2) Total Protein Albumin Urine Creatinine Urine Chloride 03/30/17 03/30/17 03/31/17 17:48 Unknown 00:25 WBC RBC Hgb Hct MCV MCH MCHC RDW Plt Count Lymph % (Auto) [place] % (Auto) [place] # Seg Neutrophils % Seg Neuts % (Manual) Lymphocytes % (Manual) Monocytes % (Manual) Seg Neutrophils # Seg Neutrophils # Man Lymphocytes # (Manual) Monocytes # (Manual) Eosinophils # (Manual) PT INR APTT Heparin Anti-Xa Level POC ABG pH POC ABG pCO2 POC ABG pO2 Sodium 124 L Potassium 5.2 H Chloride 86.6 L Carbon Dioxide 16 L BUN 93 H Creatinine 6.3 H Glucose 153 H POC Glucose 162 H 139 H Calcium 7.4 L D Phosphorus Magnesium Total Bilirubin AST Total Creatine Kinase CK-MB (CK-2) Total Protein Albumin Urine Creatinine Urine Chloride 03/31/17 03/31/17 03/31/17 04:18 05:21 11:39 WBC RBC Hgb Hct MCV MCH MCHC RDW Plt Count Lymph % (Auto) [place] % (Auto) [place] # Seg Neutrophils % Seg Neuts % (Manual) Lymphocytes % (Manual) Monocytes % (Manual) Seg Neutrophils # Seg Neutrophils # Man Lymphocytes # (Manual) Monocytes # (Manual) Eosinophils # (Manual) PT INR APTT Heparin Anti-Xa Level POC ABG pH 7.209 L POC ABG pCO2 55.7 H POC ABG pO2 106 H Sodium Potassium Chloride Carbon Dioxide BUN Creatinine Glucose POC Glucose 133 H 133 H Calcium Phosphorus Magnesium Total Bilirubin AST Total Creatine Kinase CK-MB (CK-2) Total Protein Albumin Urine Creatinine Urine Chloride 03/31/17 03/31/17 03/31/17 16:53 Unknown Unknown WBC 25.9 H RBC 3.04 L Hgb 9.6 L Hct 29.9 L MCV 98 H MCH MCHC RDW 16.1 H Plt Count Lymph % (Auto) [place] % (Auto) [place] # Seg Neutrophils % Seg Neuts % (Manual) Lymphocytes % (Manual) Monocytes % (Manual) Seg Neutrophils # Seg Neutrophils # Man Lymphocytes # (Manual) Monocytes # (Manual) Eosinophils # (Manual) PT INR APTT Heparin Anti-Xa Level POC ABG pH POC ABG pCO2 POC ABG pO2 Sodium 133 L Potassium Chloride 91.6 L Carbon Dioxide 20 L BUN 67 H Creatinine 5.3 H Glucose 129 H POC Glucose 146 H Calcium 7.4 L Phosphorus Magnesium Total Bilirubin AST Total Creatine Kinase CK-MB (CK-2) Total Protein Albumin Urine Creatinine Urine Chloride 03/31/17 04/01/17 04/01/17 23:59 04:00 04:00 WBC 16.1 H RBC 3.02 L Hgb 9.6 L Hct 29.0 L MCV 96 H MCH MCHC RDW 16.0 H Plt Count Lymph % (Auto) [place] % (Auto) [place] # Seg Neutrophils % Seg Neuts % (Manual) Lymphocytes % (Manual) Monocytes % (Manual) Seg Neutrophils # Seg Neutrophils # Man Lymphocytes # (Manual) Monocytes # (Manual) Eosinophils # (Manual) PT INR APTT Heparin Anti-Xa Level POC ABG pH POC ABG pCO2 POC ABG pO2 Sodium Potassium 3.1 L D Chloride 96.0 L Carbon Dioxide BUN 45 H Creatinine 4.1 H Glucose POC Glucose 121 H Calcium 7.1 L Phosphorus Magnesium Total Bilirubin AST Total Creatine Kinase CK-MB (CK-2) Total Protein Albumin Urine Creatinine Urine Chloride 04/01/17 04/02/17 04/02/17 05:20 00:15 04:00 WBC 13.5 H RBC 3.05 L Hgb 9.7 L Hct 29.2 L MCV 96 H MCH MCHC RDW 15.9 H Plt Count Lymph % (Auto) [place] % (Auto) [place] # Seg Neutrophils % Seg Neuts % (Manual) Lymphocytes % (Manual) Monocytes % (Manual) Seg Neutrophils # Seg Neutrophils # Man Lymphocytes # (Manual) Monocytes # (Manual) Eosinophils # (Manual) PT INR APTT Heparin Anti-Xa Level POC ABG pH POC ABG pCO2 POC ABG pO2 132 H Sodium Potassium Chloride Carbon Dioxide BUN Creatinine Glucose POC Glucose 110 H Calcium Phosphorus Magnesium Total Bilirubin AST Total Creatine Kinase CK-MB (CK-2) Total Protein Albumin Urine Creatinine Urine Chloride 04/02/17 04/02/17 04/02/17 04:22 04:35 05:25 WBC RBC Hgb Hct MCV MCH MCHC RDW Plt Count Lymph % (Auto) [place] % (Auto) [place] # Seg Neutrophils % Seg Neuts % (Manual) Lymphocytes % (Manual) Monocytes % (Manual) Seg Neutrophils # Seg Neutrophils # Man Lymphocytes # (Manual) Monocytes # (Manual) Eosinophils # (Manual) PT INR APTT Heparin Anti-Xa Level POC ABG pH POC ABG pCO2 POC ABG pO2 106 H Sodium Potassium 2.8 L* Chloride Carbon Dioxide BUN 30 H Creatinine 3.5 H Glucose 113 H POC Glucose 110 H Calcium 7.6 L Phosphorus Magnesium Total Bilirubin AST Total Creatine Kinase CK-MB (CK-2) Total Protein Albumin Urine Creatinine Urine Chloride 04/02/17 04/02/17 04/02/17 06:49 11:56 18:02 WBC RBC Hgb Hct MCV MCH MCHC RDW Plt Count Lymph % (Auto) [place] % (Auto) [place] # Seg Neutrophils % Seg Neuts % (Manual) Lymphocytes % (Manual) Monocytes % (Manual) Seg Neutrophils # Seg Neutrophils # Man Lymphocytes # (Manual) Monocytes # (Manual) Eosinophils # (Manual) PT INR APTT Heparin Anti-Xa Level 0.23 L POC ABG pH POC ABG pCO2 POC ABG pO2 Sodium Potassium Chloride Carbon Dioxide BUN Creatinine Glucose POC Glucose 118 H 128 H Calcium Phosphorus Magnesium Total Bilirubin AST Total Creatine Kinase CK-MB (CK-2) Total Protein Albumin Urine Creatinine Urine Chloride 04/03/17 04/03/17 04/03/17 00:15 04:41 05:54 WBC RBC Hgb Hct MCV MCH MCHC RDW Plt Count Lymph % (Auto) [place] % (Auto) [place] # Seg Neutrophils % Seg Neuts % (Manual) Lymphocytes % (Manual) Monocytes % (Manual) Seg Neutrophils # Seg Neutrophils # Man Lymphocytes # (Manual) Monocytes # (Manual) Eosinophils # (Manual) PT INR APTT Heparin Anti-Xa Level POC ABG pH 7.451 H POC ABG pCO2 POC ABG pO2 146 H Sodium Potassium Chloride Carbon Dioxide BUN Creatinine Glucose POC Glucose 202 H 202 H Calcium Phosphorus Magnesium Total Bilirubin AST Total Creatine Kinase CK-MB (CK-2) Total Protein Albumin Urine Creatinine Urine Chloride 04/03/17 04/03/17 04/03/17 06:22 06:22 09:54 WBC RBC 3.03 L Hgb 9.7 L Hct 28.7 L MCV 95 H MCH MCHC RDW 15.9 H Plt Count Lymph % (Auto) [place] % (Auto) [place] # Seg Neutrophils % Seg Neuts % (Manual) Lymphocytes % (Manual) Monocytes % (Manual) Seg Neutrophils # Seg Neutrophils # Man Lymphocytes # (Manual) Monocytes # (Manual) Eosinophils # (Manual) PT INR APTT Heparin Anti-Xa Level < 0.10 L POC ABG pH POC ABG pCO2 POC ABG pO2 Sodium Potassium Chloride Carbon Dioxide BUN 23 H Creatinine 3.1 H Glucose 175 H POC Glucose Calcium 8.0 L Phosphorus Magnesium Total Bilirubin AST Total Creatine Kinase CK-MB (CK-2) Total Protein Albumin Urine Creatinine Urine Chloride 04/03/17 04/03/17 04/03/17 11:40 11:45 16:25 WBC RBC Hgb Hct MCV MCH MCHC RDW Plt Count Lymph % (Auto) [place] % (Auto) [place] # Seg Neutrophils % Seg Neuts % (Manual) Lymphocytes % (Manual) Monocytes % (Manual) Seg Neutrophils # Seg Neutrophils # Man Lymphocytes # (Manual) Monocytes # (Manual) Eosinophils # (Manual) PT INR APTT Heparin Anti-Xa Level 0.27 L POC ABG pH POC ABG pCO2 POC ABG pO2 Sodium Potassium Chloride Carbon Dioxide BUN Creatinine Glucose POC Glucose 205 H 191 H Calcium Phosphorus Magnesium Total Bilirubin AST Total Creatine Kinase CK-MB (CK-2) Total Protein Albumin Urine Creatinine Urine Chloride 04/03/17 04/04/17 04/04/17 21:42 04:00 04:00 WBC 11.7 H RBC 3.20 L Hgb 10.0 L Hct 31.2 L MCV 96 H MCH MCHC RDW 16.1 H Plt Count Lymph % (Auto) [place] % (Auto) [place] # Seg Neutrophils % Seg Neuts % (Manual) 94.0 H Lymphocytes % (Manual) 0 L Monocytes % (Manual) Seg Neutrophils # Seg Neutrophils # Man 11.0 H Lymphocytes # (Manual) 0.0 L Monocytes # (Manual) Eosinophils # (Manual) PT INR APTT Heparin Anti-Xa Level POC ABG pH POC ABG pCO2 POC ABG pO2 Sodium 136 L Potassium Chloride 97.6 L Carbon Dioxide 21 L BUN 41 H Creatinine 4.0 H Glucose 184 H POC Glucose 147 H Calcium 8.1 L Phosphorus Magnesium Total Bilirubin AST Total Creatine Kinase CK-MB (CK-2) Total Protein Albumin Urine Creatinine Urine Chloride 04/04/17 04/04/17 04/04/17 05:12 06:17 12:32 WBC RBC Hgb Hct MCV MCH MCHC RDW Plt Count Lymph % (Auto) [place] % (Auto) [place] # Seg Neutrophils % Seg Neuts % (Manual) Lymphocytes % (Manual) Monocytes % (Manual) Seg Neutrophils # Seg Neutrophils # Man Lymphocytes # (Manual) Monocytes # (Manual) Eosinophils # (Manual) PT INR APTT Heparin Anti-Xa Level POC ABG pH POC ABG pCO2 34.3 L POC ABG pO2 Sodium Potassium Chloride Carbon Dioxide BUN Creatinine Glucose POC Glucose 188 H 173 H Calcium Phosphorus Magnesium Total Bilirubin AST Total Creatine Kinase CK-MB (CK-2) Total Protein Albumin Urine Creatinine Urine Chloride 04/04/17 04/04/17 04/05/17 18:19 19:00 00:08 WBC RBC Hgb Hct MCV MCH MCHC RDW Plt Count Lymph % (Auto) [place] % (Auto) [place] # Seg Neutrophils % Seg Neuts % (Manual) Lymphocytes % (Manual) Monocytes % (Manual) Seg Neutrophils # Seg Neutrophils # Man Lymphocytes # (Manual) Monocytes # (Manual) Eosinophils # (Manual) PT INR APTT Heparin Anti-Xa Level 0.98 H POC ABG pH POC ABG pCO2 POC ABG pO2 Sodium Potassium Chloride Carbon Dioxide BUN Creatinine Glucose POC Glucose 167 H 181 H Calcium Phosphorus Magnesium Total Bilirubin AST Total Creatine Kinase CK-MB (CK-2) Total Protein Albumin Urine Creatinine Urine Chloride 04/05/17 04/05/17 04/05/17 04:29 05:24 11:42 WBC RBC Hgb Hct MCV MCH MCHC RDW Plt Count Lymph % (Auto) [place] % (Auto) [place] # Seg Neutrophils % Seg Neuts % (Manual) Lymphocytes % (Manual) Monocytes % (Manual) Seg Neutrophils # Seg Neutrophils # Man Lymphocytes # (Manual) Monocytes # (Manual) Eosinophils # (Manual) PT INR APTT Heparin Anti-Xa Level POC ABG pH 7.453 H POC ABG pCO2 33.7 L POC ABG pO2 Sodium Potassium Chloride Carbon Dioxide BUN Creatinine Glucose POC Glucose 180 H 166 H Calcium Phosphorus Magnesium Total Bilirubin AST Total Creatine Kinase CK-MB (CK-2) Total Protein Albumin Urine Creatinine Urine Chloride 04/05/17 04/06/17 04/06/17 17:43 00:16 05:08 WBC RBC Hgb Hct MCV MCH MCHC RDW Plt Count Lymph % (Auto) [place] % (Auto) [place] # Seg Neutrophils % Seg Neuts % (Manual) Lymphocytes % (Manual) Monocytes % (Manual) Seg Neutrophils # Seg Neutrophils # Man Lymphocytes # (Manual) Monocytes # (Manual) Eosinophils # (Manual) PT INR APTT Heparin Anti-Xa Level POC ABG pH POC ABG pCO2 POC ABG pO2 Sodium Potassium Chloride Carbon Dioxide BUN Creatinine Glucose POC Glucose 165 H 172 H 166 H Calcium Phosphorus Magnesium Total Bilirubin AST Total Creatine Kinase CK-MB (CK-2) Total Protein Albumin Urine Creatinine Urine Chloride 04/06/17 04/06/17 06:30 06:30 WBC 12.8 H RBC 3.20 L Hgb 10.0 L Hct 30.1 L MCV MCH MCHC RDW 15.8 H Plt Count Lymph % (Auto) [place] % (Auto) [place] # Seg Neutrophils % Seg Neuts % (Manual) 97.0 H Lymphocytes % (Manual) 0 L Monocytes % (Manual) Seg Neutrophils # Seg Neutrophils # Man 12.4 H Lymphocytes # (Manual) 0.0 L Monocytes # (Manual) Eosinophils # (Manual) PT INR APTT Heparin Anti-Xa Level POC ABG pH POC ABG pCO2 POC ABG pO2 Sodium 131 L Potassium Chloride 92.5 L Carbon Dioxide 20 L BUN 74 H Creatinine 4.7 H Glucose 185 H POC Glucose Calcium 8.0 L Phosphorus Magnesium Total Bilirubin AST Total Creatine Kinase CK-MB (CK-2) Total Protein Albumin Urine Creatinine Urine Chloride
[2017-04-06] MEDS: VITAMIN B-1 PO SCH (11:15)
[2017-04-06] MEDS: FOLVITE PO SCH (11:16)
[2017-04-06] MEDS: LOPRESSOR PO SCH ×2 (11:18→14:49)
[2017-04-06] MEDS: APRESOLINE PO SCH ×2 (11:18→14:49)
[2017-04-06] MEDS: PROTONIX PO SCH (11:19)
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
[2017-04-06] MEDS: HEPARIN/ 0.45% NACL-25,000 UNIT/500 ML 25,000 UNIT/500 ML BAG IV SCH (13:13)
[2017-04-07] MEDS: DUONEB *Not for PRN Use IH SCH ×6 (00:52→20:58)
[2017-04-07] MEDS: CARDIZEM PO SCH ×3 (06:23→17:31)
[2017-04-07 06:43] LABS: Hematocrit 31.3 % (35.5-45.6); Hemoglobin 10.3 gm/dl (11.8-15.2); Mean Corpuscular HGB Conc 33 % (32-34); Mean Corpuscular Hemoglobin 31 pg (28-32); Mean Corpuscular Volume 94 fl (84-94); Red Blood Count 3.32 M/mm3 (3.65-5.03); Red Cell Distribution Width 15.7 % (13.2-15.2); White Blood Count 10.8 K/mm3 (4.5-11.0)
[2017-04-07] MEDS: HEPARIN/ 0.45% NACL-25,000 UNIT/500 ML 25,000 UNIT/500 ML BAG IV SCH ×2 (06:44→22:17)
[2017-04-07] MEDS: NACL 0.9% 1000 ML 1,000 ML IV SCH (06:46)
[2017-04-07 07:02] LABS: BUN/Creatinine Ratio 16.31; Calcium 8.5 mg/dL (8.4-10.2); Chloride 91.9 mmol/L (98-107); Potassium 4.6 mmol/L (3.6-5.0)
[2017-04-07] MEDS: PROTONIX PO SCH (09:18)
[2017-04-07] MEDS: VITAMIN B-1 PO SCH (09:18)
[2017-04-07] MEDS: APRESOLINE PO SCH ×3 (09:19→20:12)
[2017-04-07] MEDS: LOPRESSOR PO SCH ×3 (09:19→20:50)
[2017-04-07] MEDS: FOLVITE PO SCH (09:19)
[2017-04-07] MEDS: NOVOLOG SUB-Q SCH ×3 (09:28→17:31)
[2017-04-07 09:37] LABS: ISTAT Base Excess -4; ISTAT HCO3 21.7; ISTAT PCO2 41.7 (35-45); ISTAT PH 7.323 (7.35-7.45); ISTAT PO2 99 (80-105); ISTAT SO2 97; ISTAT TCO2 23
[2017-04-07 09:43] LABS: Basophils % (Manual) 0 % (0.0-1.8); Blastocytes % (Manual) 0 %; Eosinophils % (Manual) 0 % (0.0-4.3)
[2017-04-07 09:44] LABS: Diff Status Complete; Platelet Estimate Consistent w Auto; RBC Morphology Normal
[2017-04-07 10:17] LABS: Platelet Count 125 K/mm3 (140-440)
--- NOTE | 2017-04-07 10:59 | Progress Note ---
Assessment and Plan Impression: * KATHRIN--oliguric * vanco toxicity vs ATN * HTN * CM ef 40% * Afib with RVR * etoh withdrawal * asp PNA * UTI * Nephrolithiasis * Plan: * Patient remains dialysis dependent * Volume overload much improved * HD q MWF and prn * uf as tolerated * continue to monitor for renal recovery * Antibiotic therapy as per primary care team * no hydro seen on CT * strict i/os * avoid nephrotoxins * daily lytes and weight * Adjust meds for creatinine clearance less than 10 mL/m Subjective Date of service: 04/07/17 Principal diagnosis: afib, EtOH abuse, morbid obesity, respiratory failure status post extubatio Interval history: resting in bed, events noted Objective - Exam Narrative Exam: GEN: WDWN, NAD, HEENT: NCAT, PERRL, EOMI, OP CLEAR NECK: SUPPLE, NO THYROMEGALY, NO JVD, NO LAD CVS: irregular irregular, NORMAL S1S2 LUNGS/CHEST: scat rhonchi NORMAL CHEST EXPANSION B, GOOD AIR ENTRY B ABD: SOFT NTND, GBS, NO REBOUND OR GUARDING EXT/SKIN: NO SIGNIFICANT EDEMA OR RASH MSK: FROM X 4 EXTREMITIES NEURO: CN 2-12 GROSSLY INTACT, NO FOCAL DEFICITS - Vital Signs Vital signs: Vital Signs - 12hr 04/06/17 04/06/17 04/06/17 23:00 23:05 23:15 Temperature 97.9 F Pulse Rate 84 82 87 Pulse Rate [ Anterior Bilateral Throughout] Pulse Rate [ From Monitor] Respiratory 16 Rate Respiratory Rate [Anterior Bilateral Throughout] Blood Pressure 152/89 127/89 127/95 O2 Sat by Pulse 94 Oximetry O2 Sat by Pulse 96 Oximetry [ Anterior Bilateral Throughout] 04/06/17 04/06/17 04/06/17 23:30 23:45 23:49 Temperature 97.9 F Pulse Rate 73 77 Pulse Rate [ Anterior Bilateral Throughout] Pulse Rate [ From Monitor] Respiratory 16 Rate Respiratory Rate [Anterior Bilateral Throughout] Blood Pressure 122/86 123/88 O2 Sat by Pulse 97 Oximetry O2 Sat by Pulse Oximetry [ Anterior Bilateral Throughout] 04/06/17 04/07/17 04/07/17 23:57 00:00 00:15 Temperature Pulse Rate 82 75 76 Pulse Rate [ Anterior Bilateral Throughout] Pulse Rate [ 80 From Monitor] Respiratory 14 13 Rate Respiratory Rate [Anterior Bilateral Throughout] Blood Pressure 124/83 124/83 132/85 O2 Sat by Pulse 96 96 Oximetry O2 Sat by Pulse Oximetry [ Anterior Bilateral Throughout] 04/07/17 04/07/17 04/07/17 00:30 00:45 00:52 Temperature Pulse Rate 70 79 82 Pulse Rate [ 77 Anterior Bilateral Throughout] Pulse Rate [ From Monitor] Respiratory 14 Rate Respiratory 16 Rate [Anterior Bilateral Throughout] Blood Pressure 129/87 129/87 128/94 O2 Sat by Pulse 97 98 Oximetry O2 Sat by Pulse Oximetry [ Anterior Bilateral Throughout] 04/07/17 04/07/17 04/07/17 01:00 01:02 01:15 Temperature Pulse Rate 85 84 Pulse Rate [ 82 Anterior Bilateral Throughout] Pulse Rate [ From Monitor] Respiratory 14 Rate Respiratory 16 Rate [Anterior Bilateral Throughout] Blood Pressure 128/94 129/92 O2 Sat by Pulse 97 Oximetry O2 Sat by Pulse Oximetry [ Anterior Bilateral Throughout] 04/07/17 04/07/17 04/07/17 01:30 01:45 02:00 Temperature Pulse Rate 78 78 85 Pulse Rate [ Anterior Bilateral Throughout] Pulse Rate [ From Monitor] Respiratory 13 14 Rate Respiratory Rate [Anterior Bilateral Throughout] Blood Pressure 135/87 126/97 135/88 O2 Sat by Pulse 98 98 Oximetry O2 Sat by Pulse Oximetry [ Anterior Bilateral Throughout] 04/07/17 04/07/17 04/07/17 02:05 02:15 02:31 Temperature 97.9 F Pulse Rate 91 H 86 92 H Pulse Rate [ Anterior Bilateral Throughout] Pulse Rate [ From Monitor] Respiratory 17 13 Rate Respiratory Rate [Anterior Bilateral Throughout] Blood Pressure 135/87 135/88 141/91 O2 Sat by Pulse 97 Oximetry O2 Sat by Pulse 98 Oximetry [ Anterior Bilateral Throughout] 04/07/17 04/07/17 04/07/17 03:00 03:30 04:00 Temperature 98.8 F Pulse Rate 89 98 H 93 H Pulse Rate [ Anterior Bilateral Throughout] Pulse Rate [ From Monitor] Respiratory 16 18 13 Rate Respiratory Rate [Anterior Bilateral Throughout] Blood Pressure 140/81 135/81 135/99 O2 Sat by Pulse 97 96 97 Oximetry O2 Sat by Pulse Oximetry [ Anterior Bilateral Throughout] 04/07/17 04/07/17 04/07/17 04:15 04:30 04:34 Temperature Pulse Rate 91 H Pulse Rate [ 81 86 Anterior Bilateral Throughout] Pulse Rate [ From Monitor] Respiratory 13 Rate Respiratory 16 18 Rate [Anterior Bilateral Throughout] Blood Pressure 138/93 O2 Sat by Pulse 96 Oximetry O2 Sat by Pulse Oximetry [ Anterior Bilateral Throughout] 04/07/17 04/07/17 04/07/17 05:00 05:31 05:37 Temperature Pulse Rate 96 H 95 H 104 H Pulse Rate [ Anterior Bilateral Throughout] Pulse Rate [ From Monitor] Respiratory 13 14 Rate Respiratory Rate [Anterior Bilateral Throughout] Blood Pressure 136/88 134/79 134/79 O2 Sat by Pulse 95 96 96 Oximetry O2 Sat by Pulse Oximetry [ Anterior Bilateral Throughout] 04/07/17 04/07/17 04/07/17 06:00 06:23 06:30 Temperature Pulse Rate 94 H 97 H Pulse Rate [ Anterior Bilateral Throughout] Pulse Rate [ From Monitor] Respiratory 16 Rate Respiratory Rate [Anterior Bilateral Throughout] Blood Pressure 143/90 135/89 135/109 O2 Sat by Pulse 95 95 Oximetry O2 Sat by Pulse Oximetry [ Anterior Bilateral Throughout] 04/07/17 04/07/17 04/07/17 07:00 07:30 08:00 Temperature 98.3 F Pulse Rate 106 H 92 H Pulse Rate [ Anterior Bilateral Throughout] Pulse Rate [ From Monitor] Respiratory 15 14 Rate Respiratory Rate [Anterior Bilateral Throughout] Blood Pressure 145/99 141/103 139/93 O2 Sat by Pulse 96 96 96 Oximetry O2 Sat by Pulse Oximetry [ Anterior Bilateral Throughout] 04/07/17 04/07/17 04/07/17 08:30 09:00 09:19 Temperature Pulse Rate 88 92 H Pulse Rate [ Anterior Bilateral Throughout] Pulse Rate [ 92 H From Monitor] Respiratory 13 14 Rate Respiratory Rate [Anterior Bilateral Throughout] Blood Pressure 151/94 150/100 151/96 O2 Sat by Pulse 97 97 Oximetry O2 Sat by Pulse Oximetry [ Anterior Bilateral Throughout] 04/07/17 04/07/17 04/07/17 09:25 09:30 09:31 Temperature Pulse Rate 99 H 90 Pulse Rate [ 100 H Anterior Bilateral Throughout] Pulse Rate [ From Monitor] Respiratory 14 14 Rate Respiratory 14 Rate [Anterior Bilateral Throughout] Blood Pressure 141/103 150/95 O2 Sat by Pulse 101 H 97 Oximetry O2 Sat by Pulse Oximetry [ Anterior Bilateral Throughout] 04/07/17 04/07/17 04/07/17 10:00 10:06 10:12 Temperature Pulse Rate 88 Pulse Rate [ 87 Anterior Bilateral Throughout] Pulse Rate [ 92 H From Monitor] Respiratory 12 117 H Rate Respiratory 17 Rate [Anterior Bilateral Throughout] Blood Pressure 149/89 O2 Sat by Pulse 97 Oximetry O2 Sat by Pulse Oximetry [ Anterior Bilateral Throughout] - Lab 04/07/17 06:00 04/07/17 06:00 Most recent lab results Calcium 8.5 mg/dL (8.4-10.2) 04/07/17 06:00 Phosphorus 4.60 mg/dL (2.5-4.5) H 03/06/17 04:50 Magnesium 1.60 mg/dL (1.7-2.3) L 03/19/17 06:55 Urine Creatinine 86.5 mg/dL (0.1-20.0) H 03/29/17 22:10 Urine Sodium 28 mEq/L 03/29/17 22:10
--- NOTE | 2017-04-07 13:16 | Progress Note ---
Assessment and Plan 51 y/o male, noncompliant, with systolic heart failure, admitted with afib with RVR, and possible ETOH abuse, now with recurrent afib with RVR and likely aspiration pneumonia on the right resulting in acute respiratory failure, now with recurrent respiratory failure 1. Attempt extubation today. 2. HD per renal, most likely tomorrow 3. Rate control, appears to be better 4. Discontinue all sedation 5. ordered bipap PRN and QHS CCT 31 minutes. Subjective Date of service: 04/07/17 Principal diagnosis: afib, EtOH abuse, morbid obesity, respiratory failure status post extubatio Interval history: No acute events. Tolerating PSV. ABG on PSV was good this am. Had HD on yesterday. Objective Vital Signs - 12hr 04/07/17 04/07/17 04/07/17 01:15 01:30 01:45 Temperature Pulse Rate 84 78 78 Pulse Rate [ Anterior Bilateral Throughout] Pulse Rate [ From Monitor] Respiratory 13 Rate Respiratory Rate [Anterior Bilateral Throughout] Blood Pressure 129/92 135/87 126/97 O2 Sat by Pulse 98 Oximetry O2 Sat by Pulse Oximetry [ Anterior Bilateral Throughout] 04/07/17 04/07/17 04/07/17 02:00 02:05 02:15 Temperature 97.9 F Pulse Rate 85 91 H 86 Pulse Rate [ Anterior Bilateral Throughout] Pulse Rate [ From Monitor] Respiratory 14 17 Rate Respiratory Rate [Anterior Bilateral Throughout] Blood Pressure 135/88 135/87 135/88 O2 Sat by Pulse 98 Oximetry O2 Sat by Pulse 98 Oximetry [ Anterior Bilateral Throughout] 04/07/17 04/07/17 04/07/17 02:31 03:00 03:30 Temperature Pulse Rate 92 H 89 98 H Pulse Rate [ Anterior Bilateral Throughout] Pulse Rate [ From Monitor] Respiratory 13 16 18 Rate Respiratory Rate [Anterior Bilateral Throughout] Blood Pressure 141/91 140/81 135/81 O2 Sat by Pulse 97 97 96 Oximetry O2 Sat by Pulse Oximetry [ Anterior Bilateral Throughout] 04/07/17 04/07/17 04/07/17 04:00 04:15 04:30 Temperature 98.8 F Pulse Rate 93 H 91 H Pulse Rate [ 81 Anterior Bilateral Throughout] Pulse Rate [ From Monitor] Respiratory 13 13 Rate Respiratory 16 Rate [Anterior Bilateral Throughout] Blood Pressure 135/99 138/93 O2 Sat by Pulse 97 96 Oximetry O2 Sat by Pulse Oximetry [ Anterior Bilateral Throughout] 04/07/17 04/07/17 04/07/17 04:34 05:00 05:31 Temperature Pulse Rate 96 H 95 H Pulse Rate [ 86 Anterior Bilateral Throughout] Pulse Rate [ From Monitor] Respiratory 13 14 Rate Respiratory 18 Rate [Anterior Bilateral Throughout] Blood Pressure 136/88 134/79 O2 Sat by Pulse 95 96 Oximetry O2 Sat by Pulse Oximetry [ Anterior Bilateral Throughout] 04/07/17 04/07/17 04/07/17 05:37 06:00 06:23 Temperature Pulse Rate 104 H 94 H 97 H Pulse Rate [ Anterior Bilateral Throughout] Pulse Rate [ From Monitor] Respiratory 16 Rate Respiratory Rate [Anterior Bilateral Throughout] Blood Pressure 134/79 143/90 135/89 O2 Sat by Pulse 96 95 Oximetry O2 Sat by Pulse Oximetry [ Anterior Bilateral Throughout] 04/07/17 04/07/17 04/07/17 06:30 07:00 07:30 Temperature Pulse Rate 106 H Pulse Rate [ Anterior Bilateral Throughout] Pulse Rate [ From Monitor] Respiratory 15 Rate Respiratory Rate [Anterior Bilateral Throughout] Blood Pressure 135/109 145/99 141/103 O2 Sat by Pulse 95 96 96 Oximetry O2 Sat by Pulse Oximetry [ Anterior Bilateral Throughout] 04/07/17 04/07/17 04/07/17 08:00 08:30 09:00 Temperature 98.3 F Pulse Rate 92 H 88 Pulse Rate [ Anterior Bilateral Throughout] Pulse Rate [ 92 H From Monitor] Respiratory 14 13 14 Rate Respiratory Rate [Anterior Bilateral Throughout] Blood Pressure 139/93 151/94 150/100 O2 Sat by Pulse 96 97 97 Oximetry O2 Sat by Pulse Oximetry [ Anterior Bilateral Throughout] 04/07/17 04/07/17 04/07/17 09:19 09:25 09:30 Temperature Pulse Rate 92 H 99 H 90 Pulse Rate [ Anterior Bilateral Throughout] Pulse Rate [ From Monitor] Respiratory 14 14 Rate Respiratory Rate [Anterior Bilateral Throughout] Blood Pressure 151/96 141/103 150/95 O2 Sat by Pulse 101 H 97 Oximetry O2 Sat by Pulse Oximetry [ Anterior Bilateral Throughout] 04/07/17 04/07/17 04/07/17 09:31 10:00 10:06 Temperature Pulse Rate 88 Pulse Rate [ 100 H 87 Anterior Bilateral Throughout] Pulse Rate [ From Monitor] Respiratory 12 Rate Respiratory 14 17 Rate [Anterior Bilateral Throughout] Blood Pressure 149/89 O2 Sat by Pulse 97 Oximetry O2 Sat by Pulse Oximetry [ Anterior Bilateral Throughout] 04/07/17 04/07/17 04/07/17 10:12 10:30 11:00 Temperature Pulse Rate 89 92 H Pulse Rate [ Anterior Bilateral Throughout] Pulse Rate [ 92 H From Monitor] Respiratory 117 H 13 12 Rate Respiratory Rate [Anterior Bilateral Throughout] Blood Pressure 143/99 133/93 O2 Sat by Pulse 96 96 Oximetry O2 Sat by Pulse Oximetry [ Anterior Bilateral Throughout] 04/07/17 04/07/17 04/07/17 11:30 11:54 12:00 Temperature 97.9 F Pulse Rate 92 H 86 89 Pulse Rate [ Anterior Bilateral Throughout] Pulse Rate [ 87 From Monitor] Respiratory 10 L 9 L Rate Respiratory Rate [Anterior Bilateral Throughout] Blood Pressure 138/91 136/90 126/95 O2 Sat by Pulse 96 95 Oximetry O2 Sat by Pulse Oximetry [ Anterior Bilateral Throughout] 04/07/17 04/07/17 04/07/17 12:30 12:52 13:01 Temperature Pulse Rate 81 Pulse Rate [ 87 98 H Anterior Bilateral Throughout] Pulse Rate [ From Monitor] Respiratory 17 Rate Respiratory 21 21 Rate [Anterior Bilateral Throughout] Blood Pressure 130/89 O2 Sat by Pulse 96 Oximetry O2 Sat by Pulse Oximetry [ Anterior Bilateral Throughout] 04/07/17 13:04 Temperature Pulse Rate Pulse Rate [ Anterior Bilateral Throughout] Pulse Rate [ From Monitor] Respiratory Rate Respiratory Rate [Anterior Bilateral Throughout] Blood Pressure O2 Sat by Pulse 97 Oximetry O2 Sat by Pulse Oximetry [ Anterior Bilateral Throughout] Constitutional: no acute distress, alert, other (ETT in position,) Eyes: non-icteric ENT: oropharynx moist Neck: supple, no JVD, other (orally intubated.) Effort: mildly labored Ascultation: Right: rales (mostly on the right), Bilateral: clear, diminished breath sounds, wheezes, rhonchi (sporadic) Percussion: Bilateral: not dull Cardiovascular: irregular rhythm Gastrointestinal: normoactive bowel sounds, soft, non-tender, non-distended, other (obese) Integumentary: normal Extremities: no cyanosis, no edema, pink and warm Neurologic: non-focal exam, pupils equal and round, other Psychiatric: mood appropriate, affect normal, anxious CBC and BMP: 04/07/17 06:00 04/07/17 06:00 ABG, PT/INR, D-dimer: ABG POC ABG pH 7.323 (7.35-7.45) L 04/07/17 09:21 POC ABG pCO2 41.7 (35-45) 04/07/17 09:21 POC ABG pO2 99 (80-105) 04/07/17 09:21 POC ABG HCO3 21.7 04/07/17 09:21 POC ABG Total CO2 23 04/07/17 09:21 POC ABG O2 Sat 97 04/07/17 09:21 PT/INR, D-dimer PT 16.2 Sec. (12.2-14.9) H 03/22/17 08:40 INR 1.31 (0.87-1.13) H 03/22/17 08:40 Abnormal lab findings: Abnormal Labs 02/27/17 02/27/17 02/27/17 03:51 05:41 08:49 WBC RBC Hgb Hct MCV MCH MCHC RDW Plt Count Lymph % (Auto) [place] % (Auto) [place] # Seg Neutrophils % Seg Neuts % (Manual) Lymphocytes % (Manual) Monocytes % (Manual) Seg Neutrophils # Seg Neutrophils # Man Lymphocytes # (Manual) Monocytes # (Manual) Eosinophils # (Manual) PT INR APTT Heparin Anti-Xa Level POC ABG pH POC ABG pCO2 POC ABG pO2 Sodium Potassium Chloride Carbon Dioxide BUN Creatinine Glucose POC Glucose 131 H 139 H Calcium Phosphorus Magnesium Total Bilirubin AST Total Creatine Kinase 171 H CK-MB (CK-2) 5.8 H Total Protein Albumin Urine Creatinine Urine Chloride 02/27/17 02/27/17 02/27/17 13:05 13:08 16:07 WBC RBC Hgb Hct MCV MCH MCHC RDW Plt Count Lymph % (Auto) [place] % (Auto) [place] # Seg Neutrophils % Seg Neuts % (Manual) Lymphocytes % (Manual) Monocytes % (Manual) Seg Neutrophils # Seg Neutrophils # Man Lymphocytes # (Manual) Monocytes # (Manual) Eosinophils # (Manual) PT INR APTT Heparin Anti-Xa Level POC ABG pH POC ABG pCO2 POC ABG pO2 Sodium Potassium Chloride Carbon Dioxide BUN Creatinine Glucose POC Glucose 146 H 138 H Calcium Phosphorus Magnesium Total Bilirubin AST Total Creatine Kinase CK-MB (CK-2) 4.7 H Total Protein Albumin Urine Creatinine Urine Chloride 02/27/17 02/28/17 02/28/17 21:40 03:32 03:32 WBC RBC Hgb 15.9 H Hct 47.6 H MCV 100 H MCH 34 H MCHC RDW 15.4 H Plt Count Lymph % (Auto) [place] % (Auto) [place] # Seg Neutrophils % Seg Neuts % (Manual) Lymphocytes % (Manual) Monocytes % (Manual) Seg Neutrophils # Seg Neutrophils # Man Lymphocytes # (Manual) Monocytes # (Manual) Eosinophils # (Manual) PT INR APTT Heparin Anti-Xa Level POC ABG pH POC ABG pCO2 POC ABG pO2 Sodium Potassium Chloride 95.0 L Carbon Dioxide BUN 8 L Creatinine 0.6 L Glucose 126 H POC Glucose 140 H Calcium Phosphorus Magnesium 1.60 L Total Bilirubin AST Total Creatine Kinase CK-MB (CK-2) Total Protein Albumin Urine Creatinine Urine Chloride 02/28/17 02/28/17 02/28/17 07:55 11:57 15:40 WBC RBC Hgb Hct MCV MCH MCHC RDW Plt Count Lymph % (Auto) [place] % (Auto) [place] # Seg Neutrophils % Seg Neuts % (Manual) Lymphocytes % (Manual) Monocytes % (Manual) Seg Neutrophils # Seg Neutrophils # Man Lymphocytes # (Manual) Monocytes # (Manual) Eosinophils # (Manual) PT INR APTT Heparin Anti-Xa Level POC ABG pH POC ABG pCO2 POC ABG pO2 Sodium Potassium Chloride Carbon Dioxide BUN Creatinine Glucose POC Glucose 134 H 174 H 158 H Calcium Phosphorus Magnesium Total Bilirubin AST Total Creatine Kinase CK-MB (CK-2) Total Protein Albumin Urine Creatinine Urine Chloride 02/28/17 03/01/17 03/01/17 21:51 07:42 10:41 WBC RBC Hgb Hct MCV MCH MCHC RDW Plt Count Lymph % (Auto) [place] % (Auto) [place] # Seg Neutrophils % Seg Neuts % (Manual) Lymphocytes % (Manual) Monocytes % (Manual) Seg Neutrophils # Seg Neutrophils # Man Lymphocytes # (Manual) Monocytes # (Manual) Eosinophils # (Manual) PT INR APTT Heparin Anti-Xa Level POC ABG pH POC ABG pCO2 POC ABG pO2 Sodium Potassium Chloride Carbon Dioxide BUN Creatinine Glucose POC Glucose 127 H 146 H 176 H Calcium Phosphorus Magnesium Total Bilirubin AST Total Creatine Kinase CK-MB (CK-2) Total Protein Albumin Urine Creatinine Urine Chloride 03/01/17 03/01/17 03/02/17 15:37 23:35 08:11 WBC RBC Hgb Hct MCV MCH MCHC RDW Plt Count Lymph % (Auto) [place] % (Auto) [place] # Seg Neutrophils % Seg Neuts % (Manual) Lymphocytes % (Manual) Monocytes % (Manual) Seg Neutrophils # Seg Neutrophils # Man Lymphocytes # (Manual) Monocytes # (Manual) Eosinophils # (Manual) PT INR APTT Heparin Anti-Xa Level POC ABG pH POC ABG pCO2 POC ABG pO2 Sodium Potassium Chloride Carbon Dioxide BUN Creatinine Glucose POC Glucose 158 H 139 H 127 H Calcium Phosphorus Magnesium Total Bilirubin AST Total Creatine Kinase CK-MB (CK-2) Total Protein Albumin Urine Creatinine Urine Chloride 03/02/17 03/02/17 03/02/17 09:12 12:03 12:37 WBC 17.9 H RBC Hgb 16.3 H Hct 49.3 H MCV 101 H MCH 33 H MCHC RDW Plt Count Lymph % (Auto) 10.6 L [place] % (Auto) 13.4 H [place] # 2.4 H Seg Neutrophils % 75.2 H Seg Neuts % (Manual) Lymphocytes % (Manual) Monocytes % (Manual) Seg Neutrophils # 13.5 H Seg Neutrophils # Man Lymphocytes # (Manual) Monocytes # (Manual) Eosinophils # (Manual) PT INR APTT Heparin Anti-Xa Level POC ABG pH POC ABG pCO2 POC ABG pO2 Sodium 135 L Potassium Chloride 90.3 L Carbon Dioxide 32 H BUN Creatinine 0.6 L Glucose 124 H POC Glucose 145 H Calcium Phosphorus Magnesium Total Bilirubin AST Total Creatine Kinase CK-MB (CK-2) Total Protein Albumin Urine Creatinine Urine Chloride 03/02/17 03/02/17 03/03/17 16:09 22:41 03:59 WBC 14.7 H RBC Hgb Hct MCV 100 H MCH 33 H MCHC RDW Plt Count Lymph % (Auto) 10.9 L [place] % (Auto) 14.8 H [place] # 2.2 H Seg Neutrophils % 73.6 H Seg Neuts % (Manual) Lymphocytes % (Manual) Monocytes % (Manual) Seg Neutrophils # 10.8 H Seg Neutrophils # Man Lymphocytes # (Manual) Monocytes # (Manual) Eosinophils # (Manual) PT INR APTT Heparin Anti-Xa Level POC ABG pH POC ABG pCO2 POC ABG pO2 Sodium Potassium Chloride Carbon Dioxide BUN Creatinine Glucose POC Glucose 141 H 127 H Calcium Phosphorus Magnesium Total Bilirubin AST Total Creatine Kinase CK-MB (CK-2) Total Protein Albumin Urine Creatinine Urine Chloride 03/03/17 03/03/17 03/03/17 04:07 09:19 11:33 WBC RBC Hgb Hct MCV MCH MCHC RDW Plt Count Lymph % (Auto) [place] % (Auto) [place] # Seg Neutrophils % Seg Neuts % (Manual) Lymphocytes % (Manual) Monocytes % (Manual) Seg Neutrophils # Seg Neutrophils # Man Lymphocytes # (Manual) Monocytes # (Manual) Eosinophils # (Manual) PT INR APTT Heparin Anti-Xa Level POC ABG pH POC ABG pCO2 POC ABG pO2 Sodium Potassium 3.1 L D Chloride 91.1 L Carbon Dioxide BUN Creatinine 0.7 L Glucose 136 H POC Glucose 123 H 153 H Calcium Phosphorus Magnesium Total Bilirubin AST Total Creatine Kinase CK-MB (CK-2) Total Protein Albumin Urine Creatinine Urine Chloride 03/03/17 03/04/17 03/04/17 15:46 05:58 06:04 WBC 11.4 H RBC Hgb Hct 46.0 H MCV 101 H MCH 33 H MCHC RDW Plt Count Lymph % (Auto) [place] % (Auto) [place] # Seg Neutrophils % Seg Neuts % (Manual) 71.0 H Lymphocytes % (Manual) 13.0 L Monocytes % (Manual) 13.0 H Seg Neutrophils # Seg Neutrophils # Man 8.1 H Lymphocytes # (Manual) Monocytes # (Manual) 1.5 H Eosinophils # (Manual) PT INR APTT Heparin Anti-Xa Level POC ABG pH POC ABG pCO2 POC ABG pO2 Sodium Potassium 3.3 L Chloride 92.2 L Carbon Dioxide 33 H BUN Creatinine 0.6 L Glucose 133 H POC Glucose 131 H Calcium Phosphorus Magnesium Total Bilirubin AST Total Creatine Kinase CK-MB (CK-2) Total Protein Albumin Urine Creatinine Urine Chloride 03/04/17 03/04/17 03/04/17 07:54 11:24 16:00 WBC RBC Hgb Hct MCV MCH MCHC RDW Plt Count Lymph % (Auto) [place] % (Auto) [place] # Seg Neutrophils % Seg Neuts % (Manual) Lymphocytes % (Manual) Monocytes % (Manual) Seg Neutrophils # Seg Neutrophils # Man Lymphocytes # (Manual) Monocytes # (Manual) Eosinophils # (Manual) PT INR APTT Heparin Anti-Xa Level POC ABG pH POC ABG pCO2 POC ABG pO2 Sodium Potassium Chloride Carbon Dioxide BUN Creatinine Glucose POC Glucose 131 H 134 H 116 H Calcium Phosphorus Magnesium Total Bilirubin AST Total Creatine Kinase CK-MB (CK-2) Total Protein Albumin Urine Creatinine Urine Chloride 03/05/17 03/05/17 03/05/17 00:39 07:03 07:03 WBC 11.4 H RBC Hgb 15.4 H Hct 46.3 H MCV 100 H MCH 33 H MCHC RDW Plt Count Lymph % (Auto) [place] % (Auto) [place] # Seg Neutrophils % Seg Neuts % (Manual) Lymphocytes % (Manual) Monocytes % (Manual) 20.0 H Seg Neutrophils # Seg Neutrophils # Man Lymphocytes # (Manual) Monocytes # (Manual) 2.3 H Eosinophils # (Manual) PT INR APTT Heparin Anti-Xa Level POC ABG pH POC ABG pCO2 POC ABG pO2 Sodium Potassium 3.3 L Chloride 95.2 L Carbon Dioxide 31 H BUN Creatinine 0.6 L Glucose 137 H POC Glucose 116 H Calcium Phosphorus Magnesium Total Bilirubin AST Total Creatine Kinase CK-MB (CK-2) Total Protein Albumin Urine Creatinine Urine Chloride 03/05/17 03/05/17 03/05/17 08:05 12:15 16:07 WBC RBC Hgb Hct MCV MCH MCHC RDW Plt Count Lymph % (Auto) [place] % (Auto) [place] # Seg Neutrophils % Seg Neuts % (Manual) Lymphocytes % (Manual) Monocytes % (Manual) Seg Neutrophils # Seg Neutrophils # Man Lymphocytes # (Manual) Monocytes # (Manual) Eosinophils # (Manual) PT INR APTT Heparin Anti-Xa Level POC ABG pH POC ABG pCO2 POC ABG pO2 Sodium Potassium Chloride Carbon Dioxide BUN Creatinine Glucose POC Glucose 134 H 150 H 113 H Calcium Phosphorus Magnesium Total Bilirubin AST Total Creatine Kinase CK-MB (CK-2) Total Protein Albumin Urine Creatinine Urine Chloride 03/06/17 03/06/17 03/06/17 04:45 04:50 11:50 WBC 11.8 H RBC Hgb 15.7 H Hct 47.1 H MCV 98 H MCH 33 H MCHC RDW Plt Count Lymph % (Auto) [place] % (Auto) [place] # Seg Neutrophils % Seg Neuts % (Manual) Lymphocytes % (Manual) 13.0 L Monocytes % (Manual) 17.0 H Seg Neutrophils # Seg Neutrophils # Man Lymphocytes # (Manual) Monocytes # (Manual) 2.0 H Eosinophils # (Manual) PT INR APTT Heparin Anti-Xa Level POC ABG pH POC ABG pCO2 POC ABG pO2 Sodium Potassium 3.2 L Chloride 94.9 L Carbon Dioxide 31 H BUN Creatinine 0.6 L Glucose 125 H POC Glucose 124 H Calcium Phosphorus 4.60 H Magnesium Total Bilirubin AST Total Creatine Kinase CK-MB (CK-2) Total Protein Albumin Urine Creatinine Urine Chloride 03/06/17 03/06/17 03/07/17 15:43 22:07 04:30 WBC RBC Hgb Hct MCV MCH MCHC RDW Plt Count Lymph % (Auto) [place] % (Auto) [place] # Seg Neutrophils % Seg Neuts % (Manual) Lymphocytes % (Manual) Monocytes % (Manual) Seg Neutrophils # Seg Neutrophils # Man Lymphocytes # (Manual) Monocytes # (Manual) Eosinophils # (Manual) PT INR APTT Heparin Anti-Xa Level POC ABG pH POC ABG pCO2 POC ABG pO2 Sodium Potassium 3.4 L Chloride 95.1 L Carbon Dioxide BUN Creatinine 0.6 L Glucose 129 H POC Glucose 121 H 109 H Calcium Phosphorus Magnesium Total Bilirubin AST Total Creatine Kinase CK-MB (CK-2) Total Protein Albumin Urine Creatinine Urine Chloride 03/07/17 03/07/17 03/07/17 04:37 12:02 15:03 WBC 11.3 H RBC Hgb Hct MCV 99 H MCH 34 H MCHC RDW Plt Count Lymph % (Auto) [place] % (Auto) 14.6 H [place] # 1.6 H Seg Neutrophils % Seg Neuts % (Manual) Lymphocytes % (Manual) Monocytes % (Manual) Seg Neutrophils # Seg Neutrophils # Man Lymphocytes # (Manual) Monocytes # (Manual) Eosinophils # (Manual) PT INR APTT Heparin Anti-Xa Level POC ABG pH POC ABG pCO2 POC ABG pO2 Sodium Potassium Chloride Carbon Dioxide BUN Creatinine Glucose POC Glucose 126 H 108 H Calcium Phosphorus Magnesium Total Bilirubin AST Total Creatine Kinase CK-MB (CK-2) Total Protein Albumin Urine Creatinine Urine Chloride 03/08/17 03/08/17 03/08/17 04:58 04:58 08:22 WBC RBC Hgb 16.4 H Hct 49.3 H MCV 99 H MCH 33 H MCHC RDW Plt Count Lymph % (Auto) [place] % (Auto) 12.1 H [place] # 1.2 H Seg Neutrophils % 71.4 H Seg Neuts % (Manual) Lymphocytes % (Manual) Monocytes % (Manual) Seg Neutrophils # Seg Neutrophils # Man Lymphocytes # (Manual) Monocytes # (Manual) Eosinophils # (Manual) PT INR APTT Heparin Anti-Xa Level POC ABG pH POC ABG pCO2 POC ABG pO2 Sodium 136 L Potassium Chloride 93.7 L Carbon Dioxide BUN Creatinine 0.5 L Glucose 127 H POC Glucose 106 H Calcium Phosphorus Magnesium Total Bilirubin AST 50 H Total Creatine Kinase CK-MB (CK-2) Total Protein Albumin 2.7 L Urine Creatinine Urine Chloride 03/08/17 03/08/17 03/09/17 12:14 17:50 05:26 WBC 11.8 H RBC Hgb 16.3 H Hct 49.1 H MCV 98 H MCH 33 H MCHC RDW Plt Count Lymph % (Auto) [place] % (Auto) 10.8 H [place] # 1.3 H Seg Neutrophils % 71.8 H Seg Neuts % (Manual) Lymphocytes % (Manual) Monocytes % (Manual) Seg Neutrophils # 8.4 H Seg Neutrophils # Man Lymphocytes # (Manual) Monocytes # (Manual) Eosinophils # (Manual) PT INR APTT Heparin Anti-Xa Level POC ABG pH POC ABG pCO2 POC ABG pO2 Sodium Potassium Chloride Carbon Dioxide BUN Creatinine Glucose POC Glucose 115 H 117 H Calcium Phosphorus Magnesium Total Bilirubin AST Total Creatine Kinase CK-MB (CK-2) Total Protein Albumin Urine Creatinine Urine Chloride 03/09/17 03/09/17 03/09/17 05:26 12:39 16:19 WBC RBC Hgb Hct MCV MCH MCHC RDW Plt Count Lymph % (Auto) [place] % (Auto) [place] # Seg Neutrophils % Seg Neuts % (Manual) Lymphocytes % (Manual) Monocytes % (Manual) Seg Neutrophils # Seg Neutrophils # Man Lymphocytes # (Manual) Monocytes # (Manual) Eosinophils # (Manual) PT INR APTT Heparin Anti-Xa Level POC ABG pH POC ABG pCO2 POC ABG pO2 Sodium Potassium Chloride 94.7 L Carbon Dioxide BUN Creatinine 0.7 L Glucose 115 H POC Glucose 111 H 116 H Calcium Phosphorus Magnesium Total Bilirubin AST Total Creatine Kinase CK-MB (CK-2) Total Protein Albumin Urine Creatinine Urine Chloride 03/09/17 03/10/17 03/10/17 22:48 08:27 11:46 WBC RBC Hgb Hct MCV MCH MCHC RDW Plt Count Lymph % (Auto) [place] % (Auto) [place] # Seg Neutrophils % Seg Neuts % (Manual) Lymphocytes % (Manual) Monocytes % (Manual) Seg Neutrophils # Seg Neutrophils # Man Lymphocytes # (Manual) Monocytes # (Manual) Eosinophils # (Manual) PT INR APTT Heparin Anti-Xa Level POC ABG pH POC ABG pCO2 POC ABG pO2 Sodium Potassium Chloride Carbon Dioxide BUN Creatinine Glucose POC Glucose 106 H 107 H 116 H Calcium Phosphorus Magnesium Total Bilirubin AST Total Creatine Kinase CK-MB (CK-2) Total Protein Albumin Urine Creatinine Urine Chloride 03/10/17 03/10/17 03/11/17 17:01 21:46 08:10 WBC RBC Hgb Hct MCV MCH MCHC RDW Plt Count Lymph % (Auto) [place] % (Auto) [place] # Seg Neutrophils % Seg Neuts % (Manual) Lymphocytes % (Manual) Monocytes % (Manual) Seg Neutrophils # Seg Neutrophils # Man Lymphocytes # (Manual) Monocytes # (Manual) Eosinophils # (Manual) PT INR APTT Heparin Anti-Xa Level POC ABG pH POC ABG pCO2 POC ABG pO2 Sodium Potassium Chloride Carbon Dioxide BUN Creatinine Glucose POC Glucose 115 H 135 H 109 H Calcium Phosphorus Magnesium Total Bilirubin AST Total Creatine Kinase CK-MB (CK-2) Total Protein Albumin Urine Creatinine Urine Chloride 03/11/17 03/11/17 03/11/17 12:12 17:45 22:14 WBC RBC Hgb Hct MCV MCH MCHC RDW Plt Count Lymph % (Auto) [place] % (Auto) [place] # Seg Neutrophils % Seg Neuts % (Manual) Lymphocytes % (Manual) Monocytes % (Manual) Seg Neutrophils # Seg Neutrophils # Man Lymphocytes # (Manual) Monocytes # (Manual) Eosinophils # (Manual) PT INR APTT Heparin Anti-Xa Level POC ABG pH POC ABG pCO2 POC ABG pO2 Sodium Potassium Chloride Carbon Dioxide BUN Creatinine Glucose POC Glucose 136 H 126 H 132 H Calcium Phosphorus Magnesium Total Bilirubin AST Total Creatine Kinase CK-MB (CK-2) Total Protein Albumin Urine Creatinine Urine Chloride 03/12/17 03/12/17 03/12/17 08:44 08:44 12:56 WBC 14.9 H RBC 5.04 H Hgb 16.1 H Hct 48.8 H MCV 97 H MCH MCHC RDW Plt Count Lymph % (Auto) 11.7 L [place] % (Auto) 11.6 H [place] # 1.7 H Seg Neutrophils % 75.5 H Seg Neuts % (Manual) Lymphocytes % (Manual) Monocytes % (Manual) Seg Neutrophils # 11.2 H Seg Neutrophils # Man Lymphocytes # (Manual) Monocytes # (Manual) Eosinophils # (Manual) PT INR APTT Heparin Anti-Xa Level POC ABG pH POC ABG pCO2 POC ABG pO2 Sodium Potassium 3.2 L Chlor[place] 93.4 L Carbon Dioxide BUN Creatinine 0.6 L Glucose 121 H POC Glucose 129 H Calcium Phosphorus Magnesium Total Bilirubin 1.30 H AST Total Creatine Kinase CK-MB (CK-2) Total Protein Albumin 3.2 L Urine Creatinine Urine Chloride 03/12/17 03/13/17 03/13/17 17:13 09:05 11:36 WBC RBC Hgb Hct MCV MCH MCHC RDW Plt Count Lymph % (Auto) [place] % (Auto) [place] # Seg Neutrophils % Seg Neuts % (Manual) Lymphocytes % (Manual) Monocytes % (Manual) Seg Neutrophils # Seg Neutrophils # Man Lymphocytes # (Manual) Monocytes # (Manual) Eosinophils # (Manual) PT INR APTT Heparin Anti-Xa Level POC ABG pH POC ABG pCO2 POC ABG pO2 Sodium Potassium Chloride Carbon Dioxide BUN Creatinine Glucose POC Glucose 161 H 110 H 126 H Calcium Phosphorus Magnesium Total Bilirubin AST Total Creatine Kinase CK-MB (CK-2) Total Protein Albumin Urine Creatinine Urine Chloride 03/13/17 03/13/17 03/14/17 16:17 21:43 08:40 WBC RBC Hgb Hct MCV MCH MCHC RDW Plt Count Lymph % (Auto) [place] % (Auto) [place] # Seg Neutrophils % Seg Neuts % (Manual) Lymphocytes % (Manual) Monocytes % (Manual) Seg Neutrophils # Seg Neutrophils # Man Lymphocytes # (Manual) Monocytes # (Manual) Eosinophils # (Manual) PT INR APTT Heparin Anti-Xa Level POC ABG pH POC ABG pCO2 POC ABG pO2 Sodium Potassium Chloride Carbon Dioxide BUN Creatinine Glucose POC Glucose 126 H 115 H 106 H Calcium Phosphorus Magnesium Total Bilirubin AST Total Creatine Kinase CK-MB (CK-2) Total Protein Albumin Urine Creatinine Urine Chloride 03/14/17 03/14/17 03/14/17 12:01 17:39 20:30 WBC RBC Hgb Hct MCV MCH MCHC RDW Plt Count Lymph % (Auto) [place] % (Auto) [place] # Seg Neutrophils % Seg Neuts % (Manual) Lymphocytes % (Manual) Monocytes % (Manual) Seg Neutrophils # Seg Neutrophils # Man Lymphocytes # (Manual) Monocytes # (Manual) Eosinophils # (Manual) PT INR APTT Heparin Anti-Xa Level POC ABG pH POC ABG pCO2 POC ABG pO2 Sodium Potassium Chloride Carbon Dioxide BUN Creatinine Glucose POC Glucose 116 H 192 H 122 H Calcium Phosphorus Magnesium Total Bilirubin AST Total Creatine Kinase CK-MB (CK-2) Total Protein Albumin Urine Creatinine Urine Chloride 03/15/17 03/15/17 03/15/17 01:12 06:49 08:46 WBC 23.9 H RBC Hgb 16.1 H Hct 49.4 H MCV 100 H D MCH 33 H MCHC RDW Plt Count Lymph % (Auto) [place] % (Auto) [place] # Seg Neutrophils % Seg Neuts % (Manual) 92.0 H Lymphocytes % (Manual) 4.0 L Monocytes % (Manual) Seg Neutrophils # Seg Neutrophils # Man 22.0 H Lymphocytes # (Manual) 1.0 L Monocytes # (Manual) 1.0 H Eosinophils # (Manual) PT INR APTT Heparin Anti-Xa Level POC ABG pH POC ABG pCO2 POC ABG pO2 Sodium Potassium Chloride 91.0 L Carbon Dioxide 33 H BUN 45 H Creatinine Glucose 160 H POC Glucose 147 H Calcium Phosphorus Magnesium Total Bilirubin AST 41 H Total Creatine Kinase CK-MB (CK-2) Total Protein Albumin 3.0 L Urine Creatinine Urine Chloride 03/15/17 03/15/17 03/15/17 12:11 16:00 20:51 WBC RBC Hgb Hct MCV MCH MCHC RDW Plt Count Lymph % (Auto) [place] % (Auto) [place] # Seg Neutrophils % Seg Neuts % (Manual) Lymphocytes % (Manual) Monocytes % (Manual) Seg Neutrophils # Seg Neutrophils # Man Lymphocytes # (Manual) Monocytes # (Manual) Eosinophils # (Manual) PT INR APTT Heparin Anti-Xa Level POC ABG pH POC ABG pCO2 POC ABG pO2 Sodium Potassium Chloride Carbon Dioxide BUN Creatinine Glucose POC Glucose 144 H 134 H 148 H Calcium Phosphorus Magnesium Total Bilirubin AST Total Creatine Kinase CK-MB (CK-2) Total Protein Albumin Urine Creatinine Urine Chloride 03/16/17 03/16/17 03/16/17 05:59 06:02 09:15 WBC 20.9 H RBC Hgb Hct 45.8 H MCV 99 H MCH 33 H MCHC RDW Plt Count Lymph % (Auto) [place] % (Auto) [place] # Seg Neutrophils % Seg Neuts % (Manual) 92.0 H Lymphocytes % (Manual) 4.0 L Monocytes % (Manual) Seg Neutrophils # Seg Neutrophils # Man 19.2 H Lymphocytes # (Manual) 0.8 L Monocytes # (Manual) Eosinophils # (Manual) PT INR APTT Heparin Anti-Xa Level POC ABG pH POC ABG pCO2 POC ABG pO2 Sodium Potassium Chloride 92.3 L Carbon Dioxide 34 H BUN 44 H Creatinine Glucose 150 H POC Glucose 127 H Calcium Phosphorus Magnesium Total Bilirubin AST Total Creatine Kinase CK-MB (CK-2) Total Protein Albumin Urine Creatinine Urine Chloride 03/16/17 03/16/17 03/17/17 11:59 18:08 07:06 WBC RBC Hgb Hct MCV MCH MCHC RDW Plt Count Lymph % (Auto) [place] % (Auto) [place] # Seg Neutrophils % Seg Neuts % (Manual) Lymphocytes % (Manual) Monocytes % (Manual) Seg Neutrophils # Seg Neutrophils # Man Lymphocytes # (Manual) Monocytes # (Manual) Eosinophils # (Manual) PT INR APTT Heparin Anti-Xa Level POC ABG pH POC ABG pCO2 POC ABG pO2 Sodium Potassium Chloride 93.3 L Carbon Dioxide 35 H BUN 31 H Creatinine Glucose 132 H POC Glucose 147 H 138 H Calcium Phosphorus Magnesium Total Bilirubin AST Total Creatine Kinase CK-MB (CK-2) Total Protein Albumin Urine Creatinine Urine Chloride 03/17/17 03/17/17 03/17/17 07:06 07:14 12:35 WBC 16.6 H RBC Hgb 15.6 H Hct 47.5 H MCV 99 H MCH 33 H MCHC RDW Plt Count Lymph % (Auto) 8.4 L [place] % (Auto) 8.1 H [place] # 1.3 H Seg Neutrophils % 81.8 H Seg Neuts % (Manual) Lymphocytes % (Manual) Monocytes % (Manual) Seg Neutrophils # 13.6 H Seg Neutrophils # Man Lymphocytes # (Manual) Monocytes # (Manual) Eosinophils # (Manual) PT INR APTT Heparin Anti-Xa Level POC ABG pH POC ABG pCO2 POC ABG pO2 Sodium Potassium Chloride Carbon Dioxide BUN Creatinine Glucose POC Glucose 119 H 132 H Calcium Phosphorus Magnesium Total Bilirubin AST Total Creatine Kinase CK-MB (CK-2) Total Protein Albumin Urine Creatinine Urine Chloride 03/18/17 03/18/17 03/18/17 05:05 06:15 06:15 WBC 15.8 H RBC Hgb 16.5 H Hct 49.3 H MCV 99 H MCH 33 H MCHC RDW Plt Count Lymph % (Auto) [place] % (Auto) [place] # Seg Neutrophils % Seg Neuts % (Manual) 88.0 H Lymphocytes % (Manual) 2.0 L Monocytes % (Manual) 8.0 H Seg Neutrophils # Seg Neutrophils # Man 13.9 H Lymphocytes # (Manual) 0.3 L Monocytes # (Manual) 1.3 H Eosinophils # (Manual) PT INR APTT Heparin Anti-Xa Level POC ABG pH POC ABG pCO2 72.9 H POC ABG pO2 168 H Sodium 147 H Potassium 3.5 L Chloride 95.3 L Carbon Dioxide 37 H BUN 29 H Creatinine Glucose 155 H POC Glucose Calcium Phosphorus Magnesium Total Bilirubin AST Total Creatine Kinase CK-MB (CK-2) Total Protein Albumin Urine Creatinine Urine Chloride 03/18/17 03/18/17 03/18/17 08:27 11:24 11:31 WBC RBC Hgb Hct MCV MCH MCHC RDW Plt Count Lymph % (Auto) [place] % (Auto) [place] # Seg Neutrophils % Seg Neuts % (Manual) Lymphocytes % (Manual) Monocytes % (Manual) Seg Neutrophils # Seg Neutrophils # Man Lymphocytes # (Manual) Monocytes # (Manual) Eosinophils # (Manual) PT INR APTT Heparin Anti-Xa Level POC ABG pH 7.530 H POC ABG pCO2 POC ABG pO2 60 L Sodium Potassium Chloride Carbon Dioxide BUN Creatinine Glucose POC Glucose 123 H 176 H Calcium Phosphorus Magnesium Total Bilirubin AST Total Creatine Kinase CK-MB (CK-2) Total Protein Albumin Urine Creatinine Urine Chloride 03/18/17 03/18/17 03/18/17 14:10 15:24 17:23 WBC RBC Hgb 15.4 H Hct 46.4 H MCV MCH MCHC RDW Plt Count Lymph % (Auto) [place] % (Auto) [place] # Seg Neutrophils % Seg Neuts % (Manual) Lymphocytes % (Manual) Monocytes % (Manual) Seg Neutrophils # Seg Neutrophils # Man Lymphocytes # (Manual) Monocytes # (Manual) Eosinophils # (Manual) PT INR APTT Heparin Anti-Xa Level POC ABG pH POC ABG pCO2 POC ABG pO2 Sodium Potassium Chloride 94.5 L Carbon Dioxide 33 H BUN 33 H Creatinine 1.6 H Glucose 241 H POC Glucose 244 H Calcium Phosphorus Magnesium Total Bilirubin AST Total Creatine Kinase CK-MB (CK-2) Total Protein Albumin 3.0 L Urine Creatinine Urine Chloride 03/18/17 03/18/17 03/19/17 17:23 21:33 03:54 WBC 25.4 H RBC Hgb Hct MCV 98 H MCH MCHC RDW Plt Count Lymph % (Auto) [place] % (Auto) [place] # Seg Neutrophils % Seg Neuts % (Manual) 83.0 H Lymphocytes % (Manual) 4.5 L Monocytes % (Manual) 8.0 H Seg Neutrophils # Seg Neutrophils # Man 21.1 H Lymphocytes # (Manual) 1.1 L Monocytes # (Manual) 2.0 H Eosinophils # (Manual) PT 17.1 H INR 1.40 H APTT Heparin Anti-Xa Level POC ABG pH POC ABG pCO2 POC ABG pO2 Sodium Potassium Chloride Carbon Dioxide BUN Creatinine Glucose POC Glucose 164 H Calcium Phosphorus Magnesium Total Bilirubin AST Total Creatine Kinase CK-MB (CK-2) Total Protein Albumin Urine Creatinine Urine Chloride 03/19/17 03/19/17 03/19/17 03:54 06:55 06:55 WBC RBC Hgb Hct MCV MCH MCHC RDW Plt Count Lymph % (Auto) [place] % (Auto) [place] # Seg Neutrophils % Seg Neuts % (Manual) Lymphocytes % (Manual) Monocytes % (Manual) Seg Neutrophils # Seg Neutrophils # Man Lymphocytes # (Manual) Monocytes # (Manual) Eosinophils # (Manual) PT INR APTT Heparin Anti-Xa Level 0.29 L POC ABG pH POC ABG pCO2 POC ABG pO2 Sodium 146 H Potassium 3.4 L Chloride 97.8 L Carbon Dioxide 33 H BUN 30 H Creatinine Glucose 134 H POC Glucose Calcium Phosphorus Magnesium 1.60 L Total Bilirubin AST Total Creatine Kinase CK-MB (CK-2) Total Protein Albumin Urine Creatinine Urine Chloride 03/19/17 03/19/17 03/19/17 08:01 12:56 14:54 WBC RBC Hgb Hct MCV MCH MCHC RDW Plt Count Lymph % (Auto) [place] % (Auto) [place] # Seg Neutrophils % Seg Neuts % (Manual) Lymphocytes % (Manual) Monocytes % (Manual) Seg Neutrophils # Seg Neutrophils # Man Lymphocytes # (Manual) Monocytes # (Manual) Eosinophils # (Manual) PT INR APTT Heparin Anti-Xa Level POC ABG pH POC ABG pCO2 57.8 H POC ABG pO2 71 L Sodium Potassium Chloride Carbon Dioxide BUN Creatinine Glucose POC Glucose 139 H 167 H Calcium Phosphorus Magnesium Total Bilirubin AST Total Creatine Kinase CK-MB (CK-2) Total Protein Albumin Urine Creatinine Urine Chloride 03/19/17 03/19/17 03/20/17 15:53 21:04 03:36 WBC RBC Hgb 15.3 H Hct 48.1 H MCV MCH MCHC RDW Plt Count Lymph % (Auto) [place] % (Auto) [place] # Seg Neutrophils % Seg Neuts % (Manual) Lymphocytes % (Manual) Monocytes % (Manual) Seg Neutrophils # Seg Neutrophils # Man Lymphocytes # (Manual) Monocytes # (Manual) Eosinophils # (Manual) PT INR APTT Heparin Anti-Xa Level POC ABG pH POC ABG pCO2 POC ABG pO2 Sodium Potassium Chloride Carbon Dioxide BUN Creatinine Glucose POC Glucose 172 H 159 H Calcium Phosphorus Magnesium Total Bilirubin AST Total Creatine Kinase CK-MB (CK-2) Total Protein Albumin Urine Creatinine Urine Chloride 03/20/17 03/20/17 03/20/17 07:45 12:02 14:07 WBC RBC Hgb Hct MCV MCH MCHC RDW Plt Count Lymph % (Auto) [place] % (Auto) [place] # Seg Neutrophils % Seg Neuts % (Manual) Lymphocytes % (Manual) Monocytes % (Manual) Seg Neutrophils # Seg Neutrophils # Man Lymphocytes # (Manual) Monocytes # (Manual) Eosinophils # (Manual) PT INR APTT Heparin Anti-Xa Level POC ABG pH 7.312 L POC ABG pCO2 68.3 H POC ABG pO2 47 L Sodium Potassium Chloride Carbon Dioxide BUN Creatinine Glucose POC Glucose 160 H 142 H Calcium Phosphorus Magnesium Total Bilirubin AST Total Creatine Kinase CK-MB (CK-2) Total Protein Albumin Urine Creatinine Urine Chloride 03/20/17 03/20/17 03/20/17 15:57 15:59 19:50 WBC RBC Hgb Hct MCV MCH MCHC RDW Plt Count Lymph % (Auto) [place] % (Auto) [place] # Seg Neutrophils % Seg Neuts % (Manual) Lymphocytes % (Manual) Monocytes % (Manual) Seg Neutrophils # Seg Neutrophils # Man Lymphocytes # (Manual) Monocytes # (Manual) Eosinophils # (Manual) PT INR APTT Heparin Anti-Xa Level POC ABG pH 7.214 L POC ABG pCO2 82.8 H 58.7 H POC ABG pO2 69 L Sodium Potassium Chloride Carbon Dioxide BUN Creatinine Glucose POC Glucose 149 H Calcium Phosphorus Magnesium Total Bilirubin AST Total Creatine Kinase CK-MB (CK-2) Total Protein Albumin Urine Creatinine Urine Chloride 03/20/17 03/20/17 03/21/17 21:19 23:34 04:18 WBC RBC Hgb Hct MCV MCH MCHC RDW Plt Count Lymph % (Auto) [place] % (Auto) [place] # Seg Neutrophils % Seg Neuts % (Manual) Lymphocytes % (Manual) Monocytes % (Manual) Seg Neutrophils # Seg Neutrophils # Man Lymphocytes # (Manual) Monocytes # (Manual) Eosinophils # (Manual) PT INR APTT Heparin Anti-Xa Level 0.20 L POC ABG pH POC ABG pCO2 48.6 H POC ABG pO2 79 L Sodium Potassium Chloride Carbon Dioxide BUN Creatinine Glucose POC Glucose 206 H Calcium Phosphorus Magnesium Total Bilirubin AST Total Creatine Kinase CK-MB (CK-2) Total Protein Albumin Urine Creatinine Urine Chloride 03/21/17 03/21/17 03/21/17 04:21 04:21 05:23 WBC RBC Hgb Hct MCV MCH MCHC RDW Plt Count Lymph % (Auto) [place] % (Auto) [place] # Seg Neutrophils % Seg Neuts % (Manual) Lymphocytes % (Manual) Monocytes % (Manual) Seg Neutrophils # Seg Neutrophils # Man Lymphocytes # (Manual) Monocytes # (Manual) Eosinophils # (Manual) PT INR APTT Heparin Anti-Xa Level 0.24 L POC ABG pH POC ABG pCO2 POC ABG pO2 Sodium 147 H Potassium Chloride Carbon Dioxide BUN 42 H Creatinine 2.6 H D Glucose 209 H POC Glucose 181 H Calcium 7.9 L Phosphorus Magnesium Total Bilirubin AST Total Creatine Kinase CK-MB (CK-2) Total Protein Albumin Urine Creatinine Urine Chloride 03/21/17 03/21/17 03/21/17 13:16 13:16 14:43 WBC 27.8 H RBC Hgb Hct MCV 101 H D MCH MCHC RDW Plt Count Lymph % (Auto) [place] % (Auto) [place] # Seg Neutrophils % Seg Neuts % (Manual) 76.0 H Lymphocytes % (Manual) 7.0 L Monocytes % (Manual) Seg Neutrophils # Seg Neutrophils # Man 21.1 H Lymphocytes # (Manual) Monocytes # (Manual) 1.1 H Eosinophils # (Manual) PT INR APTT Heparin Anti-Xa Level 0.25 L POC ABG pH 7.474 H POC ABG pCO2 POC ABG pO2 59 L Sodium Potassium Chloride Carbon Dioxide BUN Creatinine Glucose POC Glucose Calcium Phosphorus Magnesium Total Bilirubin AST Total Creatine Kinase CK-MB (CK-2) Total Protein Albumin Urine Creatinine Urine Chloride 03/21/17 03/21/17 03/21/17 17:00 18:20 23:40 WBC RBC Hgb Hct MCV MCH MCHC RDW Plt Count Lymph % (Auto) [place] % (Auto) [place] # Seg Neutrophils % Seg Neuts % (Manual) Lymphocytes % (Manual) Monocytes % (Manual) Seg Neutrophils # Seg Neutrophils # Man Lymphocytes # (Manual) Monocytes # (Manual) Eosinophils # (Manual) PT INR APTT Heparin Anti-Xa Level POC ABG pH POC ABG pCO2 POC ABG pO2 Sodium Potassium Chloride Carbon Dioxide BUN 48 H Creatinine 3.2 H Glucose 135 H POC Glucose 152 H 136 H Calcium 6.8 L Phosphorus Magnesium Total Bilirubin AST Total Creatine Kinase CK-MB (CK-2) Total Protein 5.3 L D Albumin 1.7 L Urine Creatinine Urine Chloride 03/22/17 03/22/17 03/22/17 04:30 04:30 04:30 WBC 29.3 H RBC Hgb Hct MCV 100 H MCH MCHC 31 L RDW 15.3 H Plt Count Lymph % (Auto) [place] % (Auto) [place] # Seg Neutrophils % Seg Neuts % (Manual) Lymphocytes % (Manual) Monocytes % (Manual) Seg Neutrophils # Seg Neutrophils # Man Lymphocytes # (Manual) Monocytes # (Manual) Eosinophils # (Manual) PT INR APTT Heparin Anti-Xa Level 0.29 L POC ABG pH POC ABG pCO2 POC ABG pO2 Sodium Potassium Chloride Carbon Dioxide BUN 60 H Creatinine 4.3 H Glucose 118 H POC Glucose Calcium 8.2 L D Phosphorus Magnesium Total Bilirubin AST Total Creatine Kinase CK-MB (CK-2) Total Protein Albumin 1.8 L Urine Creatinine Urine Chloride 03/22/17 03/22/17 03/22/17 05:08 07:00 07:00 WBC 24.8 H RBC Hgb Hct MCV 100 H MCH MCHC RDW Plt Count Lymph % (Auto) [place] % (Auto) [place] # Seg Neutrophils % Seg Neuts % (Manual) 94.0 H Lymphocytes % (Manual) 0 L Monocytes % (Manual) Seg Neutrophils # Seg Neutrophils # Man 23.3 H Lymphocytes # (Manual) 0.0 L Monocytes # (Manual) Eosinophils # (Manual) 0.7 H PT INR APTT Heparin Anti-Xa Level POC ABG pH POC ABG pCO2 POC ABG pO2 Sodium 147 H Potassium Chloride 109.2 H Carbon Dioxide BUN 58 H Creatinine 4.1 H Glucose 117 H POC Glucose 124 H Calcium 7.4 L Phosphorus Magnesium Total Bilirubin AST Total Creatine Kinase CK-MB (CK-2) Total Protein Albumin Urine Creatinine Urine Chloride 03/22/17 03/22/17 03/22/17 08:40 11:37 14:30 WBC RBC Hgb Hct MCV MCH MCHC RDW Plt Count Lymph % (Auto) [place] % (Auto) [place] # Seg Neutrophils % Seg Neuts % (Manual) Lymphocytes % (Manual) Monocytes % (Manual) Seg Neutrophils # Seg Neutrophils # Man Lymphocytes # (Manual) Monocytes # (Manual) Eosinophils # (Manual) PT 16.2 H INR 1.31 H APTT 68.9 H* Heparin Anti-Xa Level < 0.10 L POC ABG pH POC ABG pCO2 POC ABG pO2 Sodium Potassium Chloride Carbon Dioxide BUN Creatinine Glucose POC Glucose 159 H Calcium Phosphorus Magnesium Total Bilirubin AST Total Creatine Kinase CK-MB (CK-2) Total Protein Albumin Urine Creatinine Urine Chloride 03/22/17 03/22/17 03/22/17 17:53 21:44 23:54 WBC RBC Hgb 11.6 L Hct 33.1 L MCV MCH MCHC RDW Plt Count Lymph % (Auto) [place] % (Auto) [place] # Seg Neutrophils % Seg Neuts % (Manual) Lymphocytes % (Manual) Monocytes % (Manual) Seg Neutrophils # Seg Neutrophils # Man Lymphocytes # (Manual) Monocytes # (Manual) Eosinophils # (Manual) PT INR APTT Heparin Anti-Xa Level POC ABG pH POC ABG pCO2 POC ABG pO2 Sodium Potassium Chloride Carbon Dioxide BUN Creatinine Glucose POC Glucose 142 H 131 H Calcium Phosphorus Magnesium Total Bilirubin AST Total Creatine Kinase CK-MB (CK-2) Total Protein Albumin Urine Creatinine Urine Chloride 03/23/17 03/23/17 03/23/17 04:08 05:29 06:34 WBC RBC Hgb Hct MCV MCH MCHC RDW Plt Count Lymph % (Auto) [place] % (Auto) [place] # Seg Neutrophils % Seg Neuts % (Manual) Lymphocytes % (Manual) Monocytes % (Manual) Seg Neutrophils # Seg Neutrophils # Man Lymphocytes # (Manual) Monocytes # (Manual) Eosinophils # (Manual) PT INR APTT Heparin Anti-Xa Level POC ABG pH POC ABG pCO2 POC ABG pO2 75 L Sodium Potassium Chloride Carbon Dioxide 21 L BUN 85 H Creatinine 6.0 H Glucose 134 H POC Glucose 134 H Calcium 8.1 L Phosphorus Magnesium Total Bilirubin AST Total Creatine Kinase CK-MB (CK-2) Total Protein Albumin Urine Creatinine Urine Chloride 03/23/17 03/23/17 03/23/17 12:09 17:20 17:52 WBC RBC Hgb Hct MCV MCH MCHC RDW Plt Count Lymph % (Auto) [place] % (Auto) [place] # Seg Neutrophils % Seg Neuts % (Manual) Lymphocytes % (Manual) Monocytes % (Manual) Seg Neutrophils # Seg Neutrophils # Man Lymphocytes # (Manual) Monocytes # (Manual) Eosinophils # (Manual) PT INR APTT Heparin Anti-Xa Level 1.39 H POC ABG pH POC ABG pCO2 POC ABG pO2 Sodium Potassium Chloride Carbon Dioxide BUN Creatinine Glucose POC Glucose 133 H 151 H Calcium Phosphorus Magnesium Total Bilirubin AST Total Creatine Kinase CK-MB (CK-2) Total Protein Albumin Urine Creatinine Urine Chloride 03/23/17 03/24/17 03/24/17 23:59 03:15 03:15 WBC 23.9 H RBC 3.58 L Hgb 11.6 L Hct 34.6 L MCV 97 H D MCH MCHC RDW Plt Count 122 L Lymph % (Auto) [place] % (Auto) [place] # Seg Neutrophils % Seg Neuts % (Manual) Lymphocytes % (Manual) Monocytes % (Manual) Seg Neutrophils # Seg Neutrophils # Man Lymphocytes # (Manual) Monocytes # (Manual) Eosinophils # (Manual) PT INR APTT Heparin Anti-Xa Level POC ABG pH POC ABG pCO2 POC ABG pO2 Sodium 135 L Potassium Chloride 95.0 L Carbon Dioxide BUN 71 H Creatinine 5.2 H Glucose 123 H POC Glucose 124 H Calcium 8.0 L Phosphorus Magnesium Total Bilirubin AST Total Creatine Kinase CK-MB (CK-2) Total Protein Albumin Urine Creatinine Urine Chloride 03/24/17 03/24/17 03/24/17 03:15 04:53 11:58 WBC RBC Hgb Hct MCV MCH MCHC RDW Plt Count Lymph % (Auto) [place] % (Auto) [place] # Seg Neutrophils % Seg Neuts % (Manual) Lymphocytes % (Manual) Monocytes % (Manual) Seg Neutrophils # Seg Neutrophils # Man Lymphocytes # (Manual) Monocytes # (Manual) Eosinophils # (Manual) PT INR APTT Heparin Anti-Xa Level 0.20 L POC ABG pH POC ABG pCO2 POC ABG pO2 72 L Sodium Potassium Chloride Carbon Dioxide BUN Creatinine Glucose POC Glucose 121 H Calcium Phosphorus Magnesium Total Bilirubin AST Total Creatine Kinase CK-MB (CK-2) Total Protein Albumin Urine Creatinine Urine Chloride 03/24/17 03/25/17 03/25/17 18:16 00:24 05:30 WBC RBC Hgb Hct MCV MCH MCHC RDW Plt Count Lymph % (Auto) [place] % (Auto) [place] # Seg Neutrophils % Seg Neuts % (Manual) Lymphocytes % (Manual) Monocytes % (Manual) Seg Neutrophils # Seg Neutrophils # Man Lymphocytes # (Manual) Monocytes # (Manual) Eosinophils # (Manual) PT INR APTT Heparin Anti-Xa Level POC ABG pH POC ABG pCO2 34.2 L POC ABG pO2 Sodium Potassium Chloride Carbon Dioxide BUN Creatinine Glucose POC Glucose 117 H 107 H Calcium Phosphorus Magnesium Total Bilirubin AST Total Creatine Kinase CK-MB (CK-2) Total Protein Albumin Urine Creatinine Urine Chloride 03/25/17 03/25/17 03/25/17 05:35 11:45 16:48 WBC RBC Hgb Hct MCV MCH MCHC RDW Plt Count Lymph % (Auto) [place] % (Auto) [place] # Seg Neutrophils % Seg Neuts % (Manual) Lymphocytes % (Manual) Monocytes % (Manual) Seg Neutrophils # Seg Neutrophils # Man Lymphocytes # (Manual) Monocytes # (Manual) Eosinophils # (Manual) PT INR APTT Heparin Anti-Xa Level POC ABG pH POC ABG pCO2 POC ABG pO2 Sodium 132 L Potassium Chloride 92.0 L Carbon Dioxide 20 L BUN 102 H Creatinine 7.2 H Glucose 101 H POC Glucose 127 H 114 H Calcium 8.3 L Phosphorus Magnesium Total Bilirubin AST Total Creatine Kinase CK-MB (CK-2) Total Protein Albumin Urine Creatinine Urine Chloride 03/26/17 03/26/17 03/26/17 00:17 04:15 04:15 WBC 21.1 H RBC 3.52 L Hgb 11.0 L Hct 33.2 L MCV 95 H MCH MCHC RDW Plt Count 121 L Lymph % (Auto) [place] % (Auto) [place] # Seg Neutrophils % Seg Neuts % (Manual) Lymphocytes % (Manual) Monocytes % (Manual) Seg Neutrophils # Seg Neutrophils # Man Lymphocytes # (Manual) Monocytes # (Manual) Eosinophils # (Manual) PT INR APTT Heparin Anti-Xa Level POC ABG pH POC ABG pCO2 POC ABG pO2 Sodium 133 L Potassium Chloride 92.9 L Carbon Dioxide 21 L BUN 77 H Creatinine 5.4 H Glucose 115 H POC Glucose 114 H Calcium 8.1 L Phosphorus Magnesium Total Bilirubin AST Total Creatine Kinase CK-MB (CK-2) Total Protein Albumin Urine Creatinine Urine Chloride 03/26/17 03/26/1703/26/17 04:49 11:36 23:29 WBC RBC Hgb Hct MCV MCH MCHC RDW Plt Count Lymph % (Auto) [place] % (Auto) [place] # Seg Neutrophils % Seg Neuts % (Manual) Lymphocytes % (Manual) Monocytes % (Manual) Seg Neutrophils # Seg Neutrophils # Man Lymphocytes # (Manual) Monocytes # (Manual) Eosinophils # (Manual) PT INR APTT Heparin Anti-Xa Level POC ABG pH POC ABG pCO2 POC ABG pO2 Sodium Potassium Chloride Carbon Dioxide BUN Creatinine Glucose POC Glucose 127 H 123 H 125 H Calcium Phosphorus Magnesium Total Bilirubin AST Total Creatine Kinase CK-MB (CK-2) Total Protein Albumin Urine Creatinine Urine Chloride 03/27/17 03/27/17 03/27/17 04:00 04:46 05:06 WBC RBC Hgb Hct MCV MCH MCHC RDW Plt Count Lymph % (Auto) [place] % (Auto) [place] # Seg Neutrophils % Seg Neuts % (Manual) Lymphocytes % (Manual) Monocytes % (Manual) Seg Neutrophils # Seg Neutrophils # Man Lymphocytes # (Manual) Monocytes # (Manual) Eosinophils # (Manual) PT INR APTT Heparin Anti-Xa Level POC ABG pH POC ABG pCO2 31.4 L POC ABG pO2 Sodium 132 L Potassium Chloride 90.5 L Carbon Dioxide 19 L BUN 95 H Creatinine 6.7 H Glucose 110 H POC Glucose 116 H Calcium Phosphorus Magnesium Total Bilirubin AST Total Creatine Kinase CK-MB (CK-2) Total Protein Albumin Urine Creatinine Urine Chloride 03/27/17 03/27/17 03/27/17 08:11 08:11 11:34 WBC 24.7 H RBC Hgb 11.5 L Hct 35.0 L MCV 95 H MCH MCHC RDW Plt Count Lymph % (Auto) [place] % (Auto) [place] # Seg Neutrophils % Seg Neuts % (Manual) Lymphocytes % (Manual) Monocytes % (Manual) Seg Neutrophils # Seg Neutrophils # Man Lymphocytes # (Manual) Monocytes # (Manual) Eosinophils # (Manual) PT INR APTT Heparin Anti-Xa Level < 0.10 L POC ABG pH POC ABG pCO2 POC ABG pO2 Sodium Potassium Chloride Carbon Dioxide BUN Creatinine Glucose POC Glucose 118 H Calcium Phosphorus Magnesium Total Bilirubin AST Total Creatine Kinase CK-MB (CK-2) Total Protein Albumin Urine Creatinine Urine Chloride 03/27/17 03/27/17 03/28/17 16:44 23:59 05:07 WBC RBC Hgb Hct MCV MCH MCHC RDW Plt Count Lymph % (Auto) [place] % (Auto) [place] # Seg Neutrophils % Seg Neuts % (Manual) Lymphocytes % (Manual) Monocytes % (Manual) Seg Neutrophils # Seg Neutrophils # Man Lymphocytes # (Manual) Monocytes # (Manual) Eosinophils # (Manual) PT INR APTT Heparin Anti-Xa Level POC ABG pH POC ABG pCO2 POC ABG pO2 Sodium Potassium Chloride Carbon Dioxide BUN Creatinine Glucose POC Glucose 110 H 109 H 110 H Calcium Phosphorus Magnesium Total Bilirubin AST Total Creatine Kinase CK-MB (CK-2) Total Protein Albumin Urine Creatinine Urine Chloride 03/28/17 03/28/17 03/28/17 07:00 11:24 11:50 WBC 26.6 H RBC 3.42 L Hgb 10.8 L Hct 33.2 L MCV 97 H MCH MCHC RDW 15.4 H Plt Count Lymph % (Auto) [place] % (Auto) [place] # Seg Neutrophils % Seg Neuts % (Manual) Lymphocytes % (Manual) Monocytes % (Manual) Seg Neutrophils # Seg Neutrophils # Man Lymphocytes # (Manual) Monocytes # (Manual) Eosinophils # (Manual) PT INR APTT Heparin Anti-Xa Level POC ABG pH POC ABG pCO2 POC ABG pO2 Sodium 131 L Potassium 5.3 H Chloride 86.6 L Carbon Dioxide 17 L BUN 112 H Creatinine 7.9 H Glucose 120 H POC Glucose 141 H Calcium Phosphorus Magnesium Total Bilirubin AST Total Creatine Kinase CK-MB (CK-2) Total Protein Albumin Urine Creatinine Urine Chloride 03/28/17 03/28/17 03/28/17 17:25 18:04 23:07 WBC RBC Hgb Hct MCV MCH MCHC RDW Plt Count Lymph % (Auto) [place] % (Auto) [place] # Seg Neutrophils % Seg Neuts % (Manual) Lymphocytes % (Manual) Monocytes % (Manual) Seg Neutrophils # Seg Neutrophils # Man Lymphocytes # (Manual) Monocytes # (Manual) Eosinophils # (Manual) PT INR APTT Heparin Anti-Xa Level 0.23 L POC ABG pH POC ABG pCO2 POC ABG pO2 Sodium Potassium Chloride Carbon Dioxide BUN Creatinine Glucose POC Glucose 128 H 115 H Calcium Phosphorus Magnesium Total Bilirubin AST Total Creatine Kinase CK-MB (CK-2) Total Protein Albumin Urine Creatinine Urine Chloride 03/29/17 03/29/17 03/29/17 03:23 05:16 08:20 WBC RBC Hgb Hct MCV MCH MCHC RDW Plt Count Lymph % (Auto) [place] % (Auto) [place] # Seg Neutrophils % Seg Neuts % (Manual) Lymphocytes % (Manual) Monocytes % (Manual) Seg Neutrophils # Seg Neutrophils # Man Lymphocytes # (Manual) Monocytes # (Manual) Eosinophils # (Manual) PT INR APTT Heparin Anti-Xa Level 0.10 L POC ABG pH POC ABG pCO2 POC ABG pO2 Sodium 126 L Potassium 5.6 H Chloride 87.5 L Carbon Dioxide 21 L BUN 84 H Creatinine 6.0 H Glucose 144 H POC Glucose 146 H Calcium 7.9 L Phosphorus Magnesium Total Bilirubin AST Total Creatine Kinase CK-MB (CK-2) Total Protein Albumin Urine Creatinine Urine Chloride 03/29/17 03/29/17 03/29/17 08:20 09:13 10:00 WBC 27.6 H RBC 3.27 L Hgb 10.2 L Hct 31.8 L MCV 97 H MCH MCHC RDW 15.3 H Plt Count Lymph % (Auto) [place] % (Auto) [place] # Seg Neutrophils % Seg Neuts % (Manual) Lymphocytes % (Manual) Monocytes % (Manual) Seg Neutrophils # Seg Neutrophils # Man Lymphocytes # (Manual) Monocytes # (Manual) Eosinophils # (Manual) PT INR APTT Heparin Anti-Xa Level 0.84 H POC ABG pH 7.204 L POC ABG pCO2 52.8 H POC ABG pO2 57 L Sodium Potassium Chloride Carbon Dioxide BUN Creatinine Glucose POC Glucose Calcium Phosphorus Magnesium Total Bilirubin AST Total Creatine Kinase CK-MB (CK-2) Total Protein Albumin Urine Creatinine Urine Chloride 03/29/17 03/29/17 03/29/17 10:24 12:27 16:44 WBC RBC Hgb Hct MCV MCH MCHC RDW Plt Count Lymph % (Auto) [place] % (Auto) [place] # Seg Neutrophils % Seg Neuts % (Manual) Lymphocytes % (Manual) Monocytes % (Manual) Seg Neutrophils # Seg Neutrophils # Man Lymphocytes # (Manual) Monocytes # (Manual) Eosinophils # (Manual) PT INR APTT Heparin Anti-Xa Level < 0.10 L POC ABG pH 7.305 L POC ABG pCO2 POC ABG pO2 73 L Sodium Potassium Chloride Carbon Dioxide BUN Creatinine Glucose POC Glucose 152 H Calcium Phosphorus Magnesium Total Bilirubin AST Total Creatine Kinase CK-MB (CK-2) Total Protein Albumin Urine Creatinine Urine Chloride 03/29/17 03/29/1703/29/17 17:48 18:56 22:10 WBC RBC Hgb Hct MCV MCH MCHC RDW Plt Count Lymph % (Auto) [place] % (Auto) [place] # Seg Neutrophils % Seg Neuts % (Manual) Lymphocytes % (Manual) Monocytes % (Manual) Seg Neutrophils # Seg Neutrophils # Man Lymphocytes # (Manual) Monocytes # (Manual) Eosinophils # (Manual) PT INR APTT Heparin Anti-Xa Level POC ABG pH POC ABG pCO2 POC ABG pO2 Sodium 125 L Potassium 5.8 H Chloride 85.4 L Carbon Dioxide 16 L BUN 96 H Creatinine 6.9 H Glucose 135 H POC Glucose 130 H Calcium Phosphorus Magnesium Total Bilirubin AST Total Creatine Kinase CK-MB (CK-2) Total Protein Albumin Urine Creatinine 86.5 H Urine Chloride 15.2 L 03/30/17 03/30/17 03/30/17 00:11 01:00 05:42 WBC RBC Hgb Hct MCV MCH MCHC RDW Plt Count Lymph % (Auto) [place] % (Auto) [place] # Seg Neutrophils % Seg Neuts % (Manual) Lymphocytes % (Manual) Monocytes % (Manual) Seg Neutrophils # Seg Neutrophils # Man Lymphocytes # (Manual) Monocytes # (Manual) Eosinophils # (Manual) PT INR APTT Heparin Anti-Xa Level 0.80 H POC ABG pH POC ABG pCO2 POC ABG pO2 Sodium Potassium Chloride Carbon Dioxide BUN Creatinine Glucose POC Glucose 146 H 162 H Calcium Phosphorus Magnesium Total Bilirubin AST Total Creatine Kinase CK-MB (CK-2) Total Protein Albumin Urine Creatinine Urine Chloride 03/30/17 03/30/17 03/30/17 07:32 07:38 08:20 WBC 27.7 H RBC 3.14 L Hgb 9.7 L Hct 30.1 L MCV 96 H MCH MCHC RDW 16.2 H Plt Count Lymph % (Auto) [place] % (Auto) [place] # Seg Neutrophils % Seg Neuts % (Manual) 93.0 H Lymphocytes % (Manual) 1.0 L Monocytes % (Manual) Seg Neutrophils # Seg Neutrophils # Man 25.8 H Lymphocytes # (Manual) 0.3 L Monocytes # (Manual) 1.0 H Eosinophils # (Manual) PT INR APTT Heparin Anti-Xa Level 0.99 H POC ABG pH POC ABG pCO2 POC ABG pO2 Sodium 127 L Potassium 5.9 H Chloride 88.5 L Carbon Dioxide 16 L BUN 101 H Creatinine 7.5 H Glucose 147 H POC Glucose Calcium 8.0 L Phosphorus Magnesium Total Bilirubin AST Total Creatine Kinase CK-MB (CK-2) Total Protein Albumin Urine Creatinine Urine Chloride 03/30/17 03/30/17 03/30/17 12:19 16:07 16:58 WBC RBC Hgb Hct MCV MCH MCHC RDW Plt Count Lymph % (Auto) [place] % (Auto) [place] # Seg Neutrophils % Seg Neuts % (Manual) Lymphocytes % (Manual) Monocytes % (Manual) Seg Neutrophils # Seg Neutrophils # Man Lymphocytes # (Manual) Monocytes # (Manual) Eosinophils # (Manual) PT INR APTT Heparin Anti-Xa Level 1.07 H POC ABG pH POC ABG pCO2 POC ABG pO2 62 L Sodium Potassium Chloride Carbon Dioxide BUN Creatinine Glucose POC Glucose 179 H Calcium Phosphorus Magnesium Total Bilirubin AST Total Creatine Kinase CK-MB (CK-2) Total Protein Albumin Urine Creatinine Urine Chloride 03/30/17 03/30/17 03/31/17 17:48 Unknown 00:25 WBC RBC Hgb Hct MCV MCH MCHC RDW Plt Count Lymph % (Auto) [place] % (Auto) [place] # Seg Neutrophils % Seg Neuts % (Manual) Lymphocytes % (Manual) Monocytes % (Manual) Seg Neutrophils # Seg Neutrophils # Man Lymphocytes # (Manual) Monocytes # (Manual) Eosinophils # (Manual) PT INR APTT Heparin Anti-Xa Level POC ABG pH POC ABG pCO2 POC ABG pO2 Sodium 124 L Potassium 5.2 H Chloride 86.6 L Carbon Dioxide 16 L BUN 93 H Creatinine 6.3 H Glucose 153 H POC Glucose 162 H 139 H Calcium 7.4 L D Phosphorus Magnesium Total Bilirubin AST Total Creatine Kinase CK-MB (CK-2) Total Protein Albumin Urine Creatinine Urine Chloride 03/31/17 03/31/17 03/31/17 04:18 05:21 11:39 WBC RBC Hgb Hct MCV MCH MCHC RDW Plt Count Lymph % (Auto) [place] % (Auto) [place] # Seg Neutrophils % Seg Neuts % (Manual) Lymphocytes % (Manual) Monocytes % (Manual) Seg Neutrophils # Seg Neutrophils # Man Lymphocytes # (Manual) Monocytes # (Manual) Eosinophils # (Manual) PT INR APTT Heparin Anti-Xa Level POC ABG pH 7.209 L POC ABG pCO2 55.7 H POC ABG pO2 106 H Sodium Potassium Chloride Carbon Dioxide BUN Creatinine Glucose POC Glucose 133 H 133 H Calcium Phosphorus Magnesium Total Bilirubin AST Total Creatine Kinase CK-MB (CK-2) Total Protein Albumin Urine Creatinine Urine Chloride 03/31/17 03/31/17 03/31/17 16:53 Unknown Unknown WBC 25.9 H RBC 3.04 L Hgb 9.6 L Hct 29.9 L MCV 98 H MCH MCHC RDW 16.1 H Plt Count Lymph % (Auto) [place] % (Auto) [place] # Seg Neutrophils % Seg Neuts % (Manual) Lymphocytes % (Manual) Monocytes % (Manual) Seg Neutrophils # Seg Neutrophils # Man Lymphocytes # (Manual) Monocytes # (Manual) Eosinophils # (Manual) PT INR APTT Heparin Anti-Xa Level POC ABG pH POC ABG pCO2 POC ABG pO2 Sodium 133 L Potassium Chloride 91.6 L Carbon Dioxide 20 L BUN 67 H Creatinine 5.3 H Glucose 129 H POC Glucose 146 H Calcium 7.4 L Phosphorus Magnesium Total Bilirubin AST Total Creatine Kinase CK-MB (CK-2) Total Protein Albumin Urine Creatinine Urine Chloride 03/31/17 04/01/17 04/01/17 23:59 04:00 04:00 WBC 16.1 H RBC 3.02 L Hgb 9.6 L Hct 29.0 L MCV 96 H MCH MCHC RDW 16.0 H Plt Count Lymph % (Auto) [place] % (Auto) [place] # Seg Neutrophils % Seg Neuts % (Manual) Lymphocytes % (Manual) Monocytes % (Manual) Seg Neutrophils # Seg Neutrophils # Man Lymphocytes # (Manual) Monocytes # (Manual) Eosinophils # (Manual) PT INR APTT Heparin Anti-Xa Level POC ABG pH POC ABG pCO2 POC ABG pO2 Sodium Potassium 3.1 L D Chloride 96.0 L Carbon Dioxide BUN 45 H Creatinine 4.1 H Glucose POC Glucose 121 H Calcium 7.1 L Phosphorus Magnesium Total Bilirubin AST Total Creatine Kinase CK-MB (CK-2) Total Protein Albumin Urine Creatinine Urine Chloride 04/01/17 04/02/17 04/02/17 05:20 00:15 04:00 WBC 13.5 H RBC 3.05 L Hgb 9.7 L Hct 29.2 L MCV 96 H MCH MCHC RDW 15.9 H Plt Count Lymph % (Auto) [place] % (Auto) [place] # Seg Neutrophils % Seg Neuts % (Manual) Lymphocytes % (Manual) Monocytes % (Manual) Seg Neutrophils # Seg Neutrophils # Man Lymphocytes # (Manual) Monocytes # (Manual) Eosinophils # (Manual) PT INR APTT Heparin Anti-Xa Level POC ABG pH POC ABG pCO2 POC ABG pO2 132 H Sodium Potassium Chloride Carbon Dioxide BUN Creatinine Glucose POC Glucose 110 H Calcium Phosphorus Magnesium Total Bilirubin AST Total Creatine Kinase CK-MB (CK-2) Total Protein Albumin Urine Creatinine Urine Chloride 04/02/17 04/02/17 04/02/17 04:22 04:35 05:25 WBC RBC Hgb Hct MCV MCH MCHC RDW Plt Count Lymph % (Auto) [place] % (Auto) [place] # Seg Neutrophils % Seg Neuts % (Manual) Lymphocytes % (Manual) Monocytes % (Manual) Seg Neutrophils # Seg Neutrophils # Man Lymphocytes # (Manual) Monocytes # (Manual) Eosinophils # (Manual) PT INR APTT Heparin Anti-Xa Level POC ABG pH POC ABG pCO2 POC ABG pO2 106 H Sodium Potassium 2.8 L* Chloride Carbon Dioxide BUN 30 H Creatinine 3.5 H Glucose 113 H POC Glucose 110 H Calcium 7.6 L Phosphorus Magnesium Total Bilirubin AST Total Creatine Kinase CK-MB (CK-2) Total Protein Albumin Urine Creatinine Urine Chloride 04/02/17 04/02/17 04/02/17 06:49 11:56 18:02 WBC RBC Hgb Hct MCV MCH MCHC RDW Plt Count Lymph % (Auto) [place] % (Auto) [place] # Seg Neutrophils % Seg Neuts % (Manual) Lymphocytes % (Manual) Monocytes % (Manual) Seg Neutrophils # Seg Neutrophils # Man Lymphocytes # (Manual) Monocytes # (Manual) Eosinophils # (Manual) PT INR APTT Heparin Anti-Xa Level 0.23 L POC ABG pH POC ABG pCO2 POC ABG pO2 Sodium Potassium Chloride Carbon Dioxide BUN Creatinine Glucose POC Glucose 118 H 128 H Calcium Phosphorus Magnesium Total Bilirubin AST Total Creatine Kinase CK-MB (CK-2) Total Protein Albumin Urine Creatinine Urine Chloride 04/03/17 04/03/17 04/03/17 00:15 04:41 05:54 WBC RBC Hgb Hct MCV MCH MCHC RDW Plt Count Lymph % (Auto) [place] % (Auto) [place] # Seg Neutrophils % Seg Neuts % (Manual) Lymphocytes % (Manual) Monocytes % (Manual) Seg Neutrophils # Seg Neutrophils # Man Lymphocytes # (Manual) Monocytes # (Manual) Eosinophils # (Manual) PT INR APTT Heparin Anti-Xa Level POC ABG pH 7.451 H POC ABG pCO2 POC ABG pO2 146 H Sodium Potassium Chloride Carbon Dioxide BUN Creatinine Glucose POC Glucose 202 H 202 H Calcium Phosphorus Magnesium Total Bilirubin AST Total Creatine Kinase CK-MB (CK-2) Total Protein Albumin Urine Creatinine Urine Chloride 04/03/17 04/03/17 04/03/17 06:22 06:22 09:54 WBC RBC 3.03 L Hgb 9.7 L Hct 28.7 L MCV 95 H MCH MCHC RDW 15.9 H Plt Count Lymph % (Auto) [place] % (Auto) [place] # Seg Neutrophils % Seg Neuts % (Manual) Lymphocytes % (Manual) Monocytes % (Manual) Seg Neutrophils # Seg Neutrophils # Man Lymphocytes # (Manual) Monocytes # (Manual) Eosinophils # (Manual) PT INR APTT Heparin Anti-Xa Level < 0.10 L POC ABG pH POC ABG pCO2 POC ABG pO2 Sodium Potassium Chloride Carbon Dioxide BUN 23 H Creatinine 3.1 H Glucose 175 H POC Glucose Calcium 8.0 L Phosphorus Magnesium Total Bilirubin AST Total Creatine Kinase CK-MB (CK-2) Total Protein Albumin Urine Creatinine Urine Chloride 04/03/17 04/03/17 04/03/17 11:40 11:45 16:25 WBC RBC Hgb Hct MCV MCH MCHC RDW Plt Count Lymph % (Auto) [place] % (Auto) [place] # Seg Neutrophils % Seg Neuts % (Manual) Lymphocytes % (Manual) Monocytes % (Manual) Seg Neutrophils # Seg Neutrophils # Man Lymphocytes # (Manual) Monocytes # (Manual) Eosinophils # (Manual) PT INR APTT Heparin Anti-Xa Level 0.27 L POC ABG pH POC ABG pCO2 POC ABG pO2 Sodium Potassium Chloride Carbon Dioxide BUN Creatinine Glucose POC Glucose 205 H 191 H Calcium Phosphorus Magnesium Total Bilirubin AST Total Creatine Kinase CK-MB (CK-2) Total Protein Albumin Urine Creatinine Urine Chloride 04/03/17 04/04/17 04/04/17 21:42 04:00 04:00 WBC 11.7 H RBC 3.20 L Hgb 10.0 L Hct 31.2 L MCV 96 H MCH MCHC RDW 16.1 H Plt Count Lymph % (Auto) [place] % (Auto) [place] # Seg Neutrophils % Seg Neuts % (Manual) 94.0 H Lymphocytes % (Manual) 0 L Monocytes % (Manual) Seg Neutrophils # Seg Neutrophils # Man 11.0 H Lymphocytes # (Manual) 0.0 L Monocytes # (Manual) Eosinophils # (Manual) PT INR APTT Heparin Anti-Xa Level POC ABG pH POC ABG pCO2 POC ABG pO2 Sodium 136 L Potassium Chloride 97.6 L Carbon Dioxide 21 L BUN 41 H Creatinine 4.0 H Glucose 184 H POC Glucose 147 H Calcium 8.1 L Phosphorus Magnesium Total Bilirubin AST Total Creatine Kinase CK-MB (CK-2) Total Protein Albumin Urine Creatinine Urine Chloride 04/04/17 04/04/17 04/04/17 05:12 06:17 12:32 WBC RBC Hgb Hct MCV MCH MCHC RDW Plt Count Lymph % (Auto) [place] % (Auto) [place] # Seg Neutrophils % Seg Neuts % (Manual) Lymphocytes % (Manual) Monocytes % (Manual) Seg Neutrophils # Seg Neutrophils # Man Lymphocytes # (Manual) Monocytes # (Manual) Eosinophils # (Manual) PT INR APTT Heparin Anti-Xa Level POC ABG pH POC ABG pCO2 34.3 L POC ABG pO2 Sodium Potassium Chloride Carbon Dioxide BUN Creatinine Glucose POC Glucose 188 H 173 H Calcium Phosphorus Magnesium Total Bilirubin AST Total Creatine Kinase CK-MB (CK-2) Total Protein Albumin Urine Creatinine Urine Chloride 04/04/17 04/04/17 04/05/17 18:19 19:00 00:08 WBC RBC Hgb Hct MCV MCH MCHC RDW Plt Count Lymph % (Auto) [place] % (Auto) [place] # Seg Neutrophils % Seg Neuts % (Manual) Lymphocytes % (Manual) Monocytes % (Manual) Seg Neutrophils # Seg Neutrophils # Man Lymphocytes # (Manual) Monocytes # (Manual) Eosinophils # (Manual) PT INR APTT Heparin Anti-Xa Level 0.98 H POC ABG pH POC ABG pCO2 POC ABG pO2 Sodium Potassium Chloride Carbon Dioxide BUN Creatinine Glucose POC Glucose 167 H 181 H Calcium Phosphorus Magnesium Total Bilirubin AST Total Creatine Kinase CK-MB (CK-2) Total Protein Albumin Urine Creatinine Urine Chloride 04/05/17 04/05/17 04/05/17 04:29 05:24 11:42 WBC RBC Hgb Hct MCV MCH MCHC RDW Plt Count Lymph % (Auto) [place] % (Auto) [place] # Seg Neutrophils % Seg Neuts % (Manual) Lymphocytes % (Manual) Monocytes % (Manual) Seg Neutrophils # Seg Neutrophils # Man Lymphocytes # (Manual) Monocytes # (Manual) Eosinophils # (Manual) PT INR APTT Heparin Anti-Xa Level POC ABG pH 7.453 H POC ABG pCO2 33.7 L POC ABG pO2 Sodium Potassium Chloride Carbon Dioxide BUN Creatinine Glucose POC Glucose 180 H 166 H Calcium Phosphorus Magnesium Total Bilirubin AST Total Creatine Kinase CK-MB (CK-2) Total Protein Albumin Urine Creatinine Urine Chloride 04/05/17 04/06/17 04/06/17 17:43 00:16 05:08 WBC RBC Hgb Hct MCV MCH MCHC RDW Plt Count Lymph % (Auto) [place] % (Auto) [place] # Seg Neutrophils % Seg Neuts % (Manual) Lymphocytes % (Manual) Monocytes % (Manual) Seg Neutrophils # Seg Neutrophils # Man Lymphocytes # (Manual) Monocytes # (Manual) Eosinophils # (Manual) PT INR APTT Heparin Anti-Xa Level POC ABG pH POC ABG pCO2 POC ABG pO2 Sodium Potassium Chlor[place] Carbon Dioxide BUN Creatinine Glucose POC Glucose 165 H 172 H 166 H Calcium Phosphorus Magnesium Total Bilirubin AST Total Creatine Kinase CK-MB (CK-2) Total Protein Albumin Urine Creatinine Urine Chloride 04/06/17 04/06/17 04/06/17 06:30 06:30 12:15 WBC 12.8 H RBC 3.20 L Hgb 10.0 L Hct 30.1 L MCV MCH MCHC RDW 15.8 H Plt Count Lymph % (Auto) [place] % (Auto) [place] # Seg Neutrophils % Seg Neuts % (Manual) 97.0 H Lymphocytes % (Manual) 0 L Monocytes % (Manual) Seg Neutrophils # Seg Neutrophils # Man 12.4 H Lymphocytes # (Manual) 0.0 L Monocytes # (Manual) Eosinophils # (Manual) PT INR APTT Heparin Anti-Xa Level POC ABG pH POC ABG pCO2 POC ABG pO2 Sodium 131 L Potassium Ch[place] 92.5 L Carbon Dioxide 20 L BUN 74 H Creatinine 4.7 H Glucose 185 H POC Glucose 166 H Calcium 8.0 L Phosphorus Magnesium Total Bilirubin AST Total Creatine Kinase CK-MB (CK-2) Total Protein Albumin Urine Creatinine Urine Chloride 04/06/17 04/06/17 04/07/17 17:52 23:16 05:45 WBC RBC Hgb Hct MCV MCH MCHC RDW Plt Count Lymph % (Auto) [place] % (Auto) [place] # Seg Neutrophils % Seg Neuts % (Manual) Lymphocytes % (Manual) Monocytes % (Manual) Seg Neutrophils # Seg Neutrophils # Man Lymphocytes # (Manual) Monocytes # (Manual) Eosinophils # (Manual) PT INR APTT Heparin Anti-Xa Level POC ABG pH POC ABG pCO2 POC ABG pO2 Sodium Potassium [place] Carbon Dioxide BUN Creatinine Glucose POC Glucose 174 H 173 H 154 H Calcium Phosphorus Magnesium Total Bilirubin AST Total Creatine Kinase CK-MB (CK-2) Total Protein Albumin Urine Creatinine Urine Chloride 04/07/17 04/07/17 04/07/17 06:00 06:00 09:21 WBC RBC 3.32 L Hgb 10.3 L Hct 31.3 L MCV MCH MCHC RDW 15.7 H Plt Count 125 L Lymph % (Auto) [place] % (Auto) [place] # Seg Neutrophils % Seg Neuts % (Manual) 90.0 H Lymphocytes % (Manual) 5.0 L Monocytes % (Manual) Seg Neutrophils # Seg Neutrophils # Man 9.7 H Lymphocytes # (Manual) 0.5 L Monocytes # (Manual) Eosinophils # (Manual) PT INR APTT Heparin Anti-Xa Level POC ABG pH 7.323 L POC ABG pCO2 POC ABG pO2 Sodium 131 L Potassium [place] 91.9 L Carbon Dioxide 20 L BUN 62 H Creatinine 3.8 H Glucose 178 H POC Glucose Calcium Phosphorus Magnesium Total Bilirubin AST Total Creatine Kinase CK-MB (CK-2) Total Protein Albumin Urine Creatinine Urine Chloride 04/07/17 12:23 WBC RBC Hgb Hct MCV MCH MCHC RDW Plt Count Lymph % (Auto) [place] % (Auto) [place] # Seg Neutrophils % Seg Neuts % (Manual) Lymphocytes % (Manual) Monocytes % (Manual) Seg Neutrophils # Seg Neutrophils # Man Lymphocytes # (Manual) Monocytes # (Manual) Eosinophils # (Manual) PT INR APTT Heparin Anti-Xa Level POC ABG pH POC ABG pCO2 POC ABG pO2 Sodium Potassium Ch[place] Carbon Dioxide BUN Creatinine Glucose POC Glucose 160 H Calcium Phosphorus Magnesium Total Bilirubin AST Total Creatine Kinase CK-MB (CK-2) Total Protein Albumin Urine Creatinine Urine Chloride
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
[2017-04-08] MEDS: CARDIZEM PO SCH ×5 (00:30→22:45)
[2017-04-08] MEDS: NOVOLOG SUB-Q SCH ×4 (00:31→22:55)
[2017-04-08] MEDS: APRESOLINE PO SCH ×4 (00:32→22:45)
[2017-04-08] MEDS: LOPRESSOR PO SCH ×4 (00:32→22:46)
[2017-04-08] MEDS: DUONEB *Not for PRN Use IH SCH ×7 (02:04→23:30)
[2017-04-08 08:50] LABS: Hematocrit 33.7 % (35.5-45.6); Mean Corpuscular HGB Conc 33 % (32-34); Mean Corpuscular Hemoglobin 32 pg (28-32); Mean Corpuscular Volume 96 fl (84-94); Platelet Count 130 K/mm3 (140-440); Red Cell Distribution Width 15.6 % (13.2-15.2); White Blood Count 10.5 K/mm3 (4.5-11.0)
[2017-04-08 08:51] LABS: BUN/Creatinine Ratio 18.4; Calcium 8.1 mg/dL (8.4-10.2); Chloride 88.5 mmol/L (98-107)
[2017-04-08 09:02] LABS: Potassium 5.7 mmol/L (3.6-5.0)
--- NOTE | 2017-04-08 10:47 | Progress Note ---
Assessment and Plan Impression: * KATHRIN--oliguric * vanco toxicity vs ATN * HTN * CM ef 40% * Afib with RVR * etoh withdrawal * asp PNA * UTI * Nephrolithiasis * Plan: * Patient remains dialysis dependent * Volume overload much improved * k elevated due to tube feeds, place only on novasource * HD q MWF and prn * 2k bath with dialysis * uf as tolerated * continue to monitor for renal recovery * Antibiotic therapy as per primary care team * no hydro seen on CT * strict i/os * avoid nephrotoxins * daily lytes and weight * Adjust meds for creatinine clearance less than 10 mL/m Subjective Date of service: 04/08/17 Principal diagnosis: afib, EtOH abuse, morbid obesity, respiratory failure status post extubatio Interval history: resting in bed, events noted Objective - Exam Narrative Exam: GEN: WDWN, NAD, HEENT: NCAT, PERRL, EOMI, OP CLEAR NECK: SUPPLE, NO THYROMEGALY, NO JVD, NO LAD CVS: irregular irregular, NORMAL S1S2 LUNGS/CHEST: scat rhonchi NORMAL CHEST EXPANSION B, GOOD AIR ENTRY B ABD: SOFT NTND, GBS, NO REBOUND OR GUARDING EXT/SKIN: NO SIGNIFICANT EDEMA OR RASH MSK: FROM X 4 EXTREMITIES NEURO: CN 2-12 GROSSLY INTACT, NO FOCAL DEFICITS - Vital Signs Vital signs: Vital Signs - 12hr 04/07/17 04/07/17 04/08/17 23:00 23:30 00:00 Temperature 97.4 F L Pulse Rate 74 83 79 Pulse Rate [ Anterior Bilateral Throughout] Pulse Rate [ From Monitor] Respiratory 10 L 9 L 11 L Rate Respiratory Rate [Anterior Bilateral Throughout] Blood Pressure 132/86 128/91 127/89 O2 Sat by Pulse 98 98 97 Oximetry 04/08/17 04/08/17 04/08/17 00:30 01:00 01:30 Temperature Pulse Rate 79 78 71 Pulse Rate [ Anterior Bilateral Throughout] Pulse Rate [ From Monitor] Respiratory 10 L 9 L 9 L Rate Respiratory Rate [Anterior Bilateral Throughout] Blood Pressure 127/89 116/86 114/84 O2 Sat by Pulse 97 97 97 Oximetry 04/08/17 04/08/17 04/08/17 02:00 02:09 02:20 Temperature Pulse Rate 74 Pulse Rate [ 74 73 Anterior Bilateral Throughout] Pulse Rate [ From Monitor] Respiratory 12 Rate Respiratory 19 16 Rate [Anterior Bilateral Throughout] Blood Pressure 128/95 O2 Sat by Pulse 97 Oximetry 04/08/17 04/08/17 04/08/17 02:30 03:00 03:30 Temperature Pulse Rate 75 70 64 Pulse Rate [ Anterior Bilateral Throughout] Pulse Rate [ From Monitor] Respiratory 17 12 14 Rate Respiratory Rate [Anterior Bilateral Throughout] Blood Pressure 123/92 116/84 122/74 O2 Sat by Pulse 98 97 97 Oximetry 04/08/17 04/08/17 04/08/17 04:00 04:29 04:30 Temperature 97.5 F L Pulse Rate 69 69 Pulse Rate [ 72 Anterior Bilateral Throughout] Pulse Rate [ From Monitor] Respiratory 8 L 11 L Rate Respiratory 13 Rate [Anterior Bilateral Throughout] Blood Pressure 121/84 127/81 O2 Sat by Pulse 98 98 Oximetry 04/08/17 04/08/17 04/08/17 05:00 05:30 06:00 Temperature Pulse Rate 61 66 69 Pulse Rate [ Anterior Bilateral Throughout] Pulse Rate [ From Monitor] Respiratory 8 L 7 L 6 L Rate Respiratory Rate [Anterior Bilateral Throughout] Blood Pressure 122/82 124/85 130/77 O2 Sat by Pulse 98 98 98 Oximetry 04/08/17 04/08/17 04/08/17 06:31 06:51 07:01 Temperature Pulse Rate 65 74 77 Pulse Rate [ Anterior Bilateral Throughout] Pulse Rate [ From Monitor] Respiratory 9 L 8 L Rate Respiratory Rate [Anterior Bilateral Throughout] Blood Pressure 123/89 129/94 128/91 O2 Sat by Pulse 98 98 Oximetry 04/08/17 04/08/17 04/08/17 07:30 07:55 08:00 Temperature 97.3 F L Pulse Rate 72 Pulse Rate [ Anterior Bilateral Throughout] Pulse Rate [ 73 From Monitor] Respiratory 8 L 10 L Rate Respiratory Rate [Anterior Bilateral Throughout] Blood Pressure 128/85 O2 Sat by Pulse 98 98 Oximetry 04/08/17 04/08/17 04/08/17 08:01 08:31 09:01 Temperature Pulse Rate 73 79 64 Pulse Rate [ Anterior Bilateral Throughout] Pulse Rate [ From Monitor] Respiratory 10 L 8 L 7 L Rate Respiratory Rate [Anterior Bilateral Throughout] Blood Pressure 135/86 O2 Sat by Pulse 98 98 98 Oximetry 04/08/17 04/08/17 04/08/17 09:31 09:48 10:00 Temperature Pulse Rate 62 Pulse Rate [ 62 Anterior Bilateral Throughout] Pulse Rate [ From Monitor] Respiratory 18 Rate Respiratory 18 Rate [Anterior Bilateral Throughout] Blood Pressure 130/98 119/86 O2 Sat by Pulse 97 98 96 Oximetry 04/08/17 10:03 Temperature Pulse Rate Pulse Rate [ 68 Anterior Bilateral Throughout] Pulse Rate [ From Monitor] Respiratory Rate Respiratory 18 Rate [Anterior Bilateral Throughout] Blood Pressure O2 Sat by Pulse Oximetry - Lab 04/08/17 08:18 04/08/17 08:18 Most recent lab results Calcium 8.1 mg/dL (8.4-10.2) L 04/08/17 08:18 Phosphorus 4.60 mg/dL (2.5-4.5) H 03/06/17 04:50 Magnesium 1.60 mg/dL (1.7-2.3) L 03/19/17 06:55 Urine Creatinine 86.5 mg/dL (0.1-20.0) H 03/29/17 22:10 Urine Sodium 28 mEq/L 03/29/17 22:10
[2017-04-08] MEDS: VITAMIN B-1 PO SCH (10:55)
[2017-04-08] MEDS: PROTONIX PO SCH (10:55)
[2017-04-08] MEDS: FOLVITE PO SCH (10:55)
[2017-04-08 11:06] LABS: Basophils % (Manual) 0 % (0.0-1.8); Blastocytes % (Manual) 0 %; Eosinophils % (Manual) 0 % (0.0-4.3)
[2017-04-08 11:07] LABS: Diff Status Complete; RBC Morphology Normal
[2017-04-08] MEDS ORDERED: SIMPLE SYRUP FEEDTUBE PRN ×2 (11:55)
[2017-04-08] MEDS ORDERED: SODIUM BICARBONATE FEEDTUBE PRN (11:55)
[2017-04-08] MEDS ORDERED: PANCREAZE DR 10,500 UNIT FEEDTUBE PRN (11:55)
--- NOTE | 2017-04-08 12:40 | Progress Note ---
Assessment and Plan 51 y/o male, noncompliant, with systolic heart failure, admitted with afib with RVR, and possible ETOH abuse, now with recurrent afib with RVR and likely aspiration pneumonia on the right resulting in acute respiratory failure, now with recurrent respiratory failure 1. Rate control per cards 2. HD per renal, most likely today 3. Continue bipap therapy at night, may need machine at home 4. Discontinue all sedation 5. Appears stable, recommend transfer to floor Subjective Date of service: 04/08/17 Principal diagnosis: afib, EtOH abuse, morbid obesity, respiratory failure status post extubatio Interval history: No acute events. Tolerated extubation on yesterday. Wore bipap therapy last night and tolerated. Objective Vital Signs - 12hr 04/08/17 04/08/17 04/08/17 01:00 01:30 02:00 Temperature Pulse Rate 78 71 74 Pulse Rate [ Anterior Bilateral Throughout] Pulse Rate [ From Monitor] Respiratory 9 L 9 L 12 Rate Respiratory Rate [Anterior Bilateral Throughout] Blood Pressure 116/86 114/84 128/95 O2 Sat by Pulse 97 97 97 Oximetry 04/08/17 04/08/17 04/08/17 02:09 02:20 02:30 Temperature Pulse Rate 75 Pulse Rate [ 74 73 Anterior Bilateral Throughout] Pulse Rate [ From Monitor] Respiratory 17 Rate Respiratory 19 16 Rate [Anterior Bilateral Throughout] Blood Pressure 123/92 O2 Sat by Pulse 98 Oximetry 04/08/17 04/08/17 04/08/17 03:00 03:30 04:00 Temperature 97.5 F L Pulse Rate 70 64 69 Pulse Rate [ Anterior Bilateral Throughout] Pulse Rate [ From Monitor] Respiratory 12 14 8 L Rate Respiratory Rate [Anterior Bilateral Throughout] Blood Pressure 116/84 122/74 121/84 O2 Sat by Pulse 97 97 98 Oximetry 04/08/17 04/08/17 04/08/17 04:29 04:30 05:00 Temperature Pulse Rate 69 61 Pulse Rate [ 72 Anterior Bilateral Throughout] Pulse Rate [ From Monitor] Respiratory 11 L 8 L Rate Respiratory 13 Rate [Anterior Bilateral Throughout] Blood Pressure 127/81 122/82 O2 Sat by Pulse 98 98 Oximetry 04/08/17 04/08/17 04/08/17 05:30 06:00 06:31 Temperature Pulse Rate 66 69 65 Pulse Rate [ Anterior Bilateral Throughout] Pulse Rate [ From Monitor] Respiratory 7 L 6 L 9 L Rate Respiratory Rate [Anterior Bilateral Throughout] Blood Pressure 124/85 130/77 123/89 O2 Sat by Pulse 98 98 98 Oximetry 04/08/17 04/08/17 04/08/17 06:51 07:01 07:30 Temperature Pulse Rate 74 77 72 Pulse Rate [ Anterior Bilateral Throughout] Pulse Rate [ From Monitor] Respiratory 8 L 8 L Rate Respiratory Rate [Anterior Bilateral Throughout] Blood Pressure 129/94 128/91 128/85 O2 Sat by Pulse 98 98 Oximetry 04/08/17 04/08/17 04/08/17 07:55 08:00 08:01 Temperature 97.3 F L Pulse Rate 73 Pulse Rate [ Anterior Bilateral Throughout] Pulse Rate [ 73 From Monitor] Respiratory 10 L 10 L Rate Respiratory Rate [Anterior Bilateral Throughout] Blood Pressure 135/86 O2 Sat by Pulse 98 98 Oximetry 04/08/17 04/08/17 04/08/17 08:31 09:01 09:31 Temperature Pulse Rate 79 64 Pulse Rate [ Anterior Bilateral Throughout] Pulse Rate [ From Monitor] Respiratory 8 L 7 L Rate Respiratory Rate [Anterior Bilateral Throughout] Blood Pressure 130/98 O2 Sat by Pulse 98 98 97 Oximetry 04/08/17 04/08/17 04/08/17 09:48 10:00 10:03 Temperature Pulse Rate 62 Pulse Rate [ 62 68 Anterior Bilateral Throughout] Pulse Rate [ From Monitor] Respiratory 18 Rate Respiratory 18 18 Rate [Anterior Bilateral Throughout] Blood Pressure 119/86 O2 Sat by Pulse 98 96 Oximetry 04/08/17 04/08/17 04/08/17 10:56 12:00 12:11 Temperature 97.5 F L Pulse Rate 71 75 Pulse Rate [ Anterior Bilateral Throughout] Pulse Rate [ From Monitor] Respiratory Rate Respiratory Rate [Anterior Bilateral Throughout] Blood Pressure 116/81 119/79 O2 Sat by Pulse Oximetry Constitutional: no acute distress, alert Eyes: non-icteric ENT: oropharynx moist Neck: supple, no JVD Effort: mildly labored Ascultation: Right: rales (mostly on the right), Bilateral: clear, diminished breath sounds, wheezes Percussion: Bilateral: not dull Cardiovascular: irregular rhythm Gastrointestinal: normoactive bowel sounds, soft, non-tender, non-distended, other (obese) Integumentary: normal Extremities: no cyanosis, no edema, pink and warm Neurologic: non-focal exam, pupils equal and round, other Psychiatric: mood appropriate, affect normal, anxious CBC and BMP: 04/08/17 08:18 04/08/17 08:18 ABG, PT/INR, D-dimer: ABG POC ABG pH 7.323 (7.35-7.45) L 04/07/17 09:21 POC ABG pCO2 41.7 (35-45) 04/07/17 09:21 POC ABG pO2 99 (80-105) 04/07/17 09:21 POC ABG HCO3 21.7 04/07/17 09:21 POC ABG Total CO2 23 04/07/17 09:21 POC ABG O2 Sat 97 04/07/17 09:21 PT/INR, D-dimer PT 16.2 Sec. (12.2-14.9) H 03/22/17 08:40 INR 1.31 (0.87-1.13) H 03/22/17 08:40 Abnormal lab findings: Abnormal Labs 02/27/17 02/27/17 02/27/17 03:51 05:41 08:49 WBC RBC Hgb Hct MCV MCH MCHC RDW Plt Count Lymph % (Auto) [place] % (Auto) [place] # Seg Neutrophils % Seg Neuts % (Manual) Lymphocytes % (Manual) Monocytes % (Manual) Seg Neutrophils # Seg Neutrophils # Man Lymphocytes # (Manual) Monocytes # (Manual) Eosinophils # (Manual) PT INR APTT Heparin Anti-Xa Level POC ABG pH POC ABG pCO2 POC ABG pO2 Sodium Potassium Chloride Carbon Dioxide BUN Creatinine Glucose POC Glucose 131 H 139 H Calcium Phosphorus Magnesium Total Bilirubin AST Total Creatine Kinase 171 H CK-MB (CK-2) 5.8 H Total Protein Albumin Urine Creatinine Urine Chloride 02/27/17 02/27/17 02/27/17 13:05 13:08 16:07 WBC RBC Hgb Hct MCV MCH MCHC RDW Plt Count Lymph % (Auto) [place] % (Auto) [place] # Seg Neutrophils % Seg Neuts % (Manual) Lymphocytes % (Manual) Monocytes % (Manual) Seg Neutrophils # Seg Neutrophils # Man Lymphocytes # (Manual) Monocytes # (Manual) Eosinophils # (Manual) PT INR APTT Heparin Anti-Xa Level POC ABG pH POC ABG pCO2 POC ABG pO2 Sodium Potassium Chloride Carbon Dioxide BUN Creatinine Glucose POC Glucose 146 H 138 H Calcium Phosphorus Magnesium Total Bilirubin AST Total Creatine Kinase CK-MB (CK-2) 4.7 H Total Protein Albumin Urine Creatinine Urine Chloride 02/27/17 02/28/17 02/28/17 21:40 03:32 03:32 WBC RBC Hgb 15.9 H Hct 47.6 H MCV 100 H MCH 34 H MCHC RDW 15.4 H Plt Count Lymph % (Auto) [place] % (Auto) [place] # Seg Neutrophils % Seg Neuts % (Manual) Lymphocytes % (Manual) Monocytes % (Manual) Seg Neutrophils # Seg Neutrophils # Man Lymphocytes # (Manual) Monocytes # (Manual) Eosinophils # (Manual) PT INR APTT Heparin Anti-Xa Level POC ABG pH POC ABG pCO2 POC ABG pO2 Sodium Potassium Chloride 95.0 L Carbon Dioxide BUN 8 L Creatinine 0.6 L Glucose 126 H POC Glucose 140 H Calcium Phosphorus Magnesium 1.60 L Total Bilirubin AST Total Creatine Kinase CK-MB (CK-2) Total Protein Albumin Urine Creatinine Urine Chloride 02/28/17 02/28/17 02/28/17 07:55 11:57 15:40 WBC RBC Hgb Hct MCV MCH MCHC RDW Plt Count Lymph % (Auto) [place] % (Auto) [place] # Seg Neutrophils % Seg Neuts % (Manual) Lymphocytes % (Manual) Monocytes % (Manual) Seg Neutrophils # Seg Neutrophils # Man Lymphocytes # (Manual) Monocytes # (Manual) Eosinophils # (Manual) PT INR APTT Heparin Anti-Xa Level POC ABG pH POC ABG pCO2 POC ABG pO2 Sodium Potassium Chloride Carbon Dioxide BUN Creatinine Glucose POC Glucose 134 H 174 H 158 H Calcium Phosphorus Magnesium Total Bilirubin AST Total Creatine Kinase CK-MB (CK-2) Total Protein Albumin Urine Creatinine Urine Chloride 02/28/17 03/01/17 03/01/17 21:51 07:42 10:41 WBC RBC Hgb Hct MCV MCH MCHC RDW Plt Count Lymph % (Auto) [place] % (Auto) [place] # Seg Neutrophils % Seg Neuts % (Manual) Lymphocytes % (Manual) Monocytes % (Manual) Seg Neutrophils # Seg Neutrophils # Man Lymphocytes # (Manual) Monocytes # (Manual) Eosinophils # (Manual) PT INR APTT Heparin Anti-Xa Level POC ABG pH POC ABG pCO2 POC ABG pO2 Sodium Potassium Chloride Carbon Dioxide BUN Creatinine Glucose POC Glucose 127 H 146 H 176 H Calcium Phosphorus Magnesium Total Bilirubin AST Total Creatine Kinase CK-MB (CK-2) Total Protein Albumin Urine Creatinine Urine Chloride 03/01/17 03/01/17 03/02/17 15:37 23:35 08:11 WBC RBC Hgb Hct MCV MCH MCHC RDW Plt Count Lymph % (Auto) [place] % (Auto) [place] # Seg Neutrophils % Seg Neuts % (Manual) Lymphocytes % (Manual) Monocytes % (Manual) Seg Neutrophils # Seg Neutrophils # Man Lymphocytes # (Manual) Monocytes # (Manual) Eosinophils # (Manual) PT INR APTT Heparin Anti-Xa Level POC ABG pH POC ABG pCO2 POC ABG pO2 Sodium Potassium Chloride Carbon Dioxide BUN Creatinine Glucose POC Glucose 158 H 139 H 127 H Calcium Phosphorus Magnesium Total Bilirubin AST Total Creatine Kinase CK-MB (CK-2) Total Protein Albumin Urine Creatinine Urine Chloride 03/02/17 03/02/17 03/02/17 09:12 12:03 12:37 WBC 17.9 H RBC Hgb 16.3 H Hct 49.3 H MCV 101 H MCH 33 H MCHC RDW Plt Count Lymph % (Auto) 10.6 L [place] % (Auto) 13.4 H [place] # 2.4 H Seg Neutrophils % 75.2 H Seg Neuts % (Manual) Lymphocytes % (Manual) Monocytes % (Manual) Seg Neutrophils # 13.5 H Seg Neutrophils # Man Lymphocytes # (Manual) Monocytes # (Manual) Eosinophils # (Manual) PT INR APTT Heparin Anti-Xa Level POC ABG pH POC ABG pCO2 POC ABG pO2 Sodium 135 L Potassium Chloride 90.3 L Carbon Dioxide 32 H BUN Creatinine 0.6 L Glucose 124 H POC Glucose 145 H Calcium Phosphorus Magnesium Total Bilirubin AST Total Creatine Kinase CK-MB (CK-2) Total Protein Albumin Urine Creatinine Urine Chloride 03/02/17 03/02/17 03/03/17 16:09 22:41 03:59 WBC 14.7 H RBC Hgb Hct MCV 100 H MCH 33 H MCHC RDW Plt Count Lymph % (Auto) 10.9 L [place] % (Auto) 14.8 H [place] # 2.2 H Seg Neutrophils % 73.6 H Seg Neuts % (Manual) Lymphocytes % (Manual) Monocytes % (Manual) Seg Neutrophils # 10.8 H Seg Neutrophils # Man Lymphocytes # (Manual) Monocytes # (Manual) Eosinophils # (Manual) PT INR APTT Heparin Anti-Xa Level POC ABG pH POC ABG pCO2 POC ABG pO2 Sodium Potassium Chloride Carbon Dioxide BUN Creatinine Glucose POC Glucose 141 H 127 H Calcium Phosphorus Magnesium Total Bilirubin AST Total Creatine Kinase CK-MB (CK-2) Total Protein Albumin Urine Creatinine Urine Chloride 03/03/17 03/03/17 03/03/17 04:07 09:19 11:33 WBC RBC Hgb Hct MCV MCH MCHC RDW Plt Count Lymph % (Auto) [place] % (Auto) [place] # Seg Neutrophils % Seg Neuts % (Manual) Lymphocytes % (Manual) Monocytes % (Manual) Seg Neutrophils # Seg Neutrophils # Man Lymphocytes # (Manual) Monocytes # (Manual) Eosinophils # (Manual) PT INR APTT Heparin Anti-Xa Level POC ABG pH POC ABG pCO2 POC ABG pO2 Sodium Potassium 3.1 L D Chloride 91.1 L Carbon Dioxide BUN Creatinine 0.7 L Glucose 136 H POC Glucose 123 H 153 H Calcium Phosphorus Magnesium Total Bilirubin AST Total Creatine Kinase CK-MB (CK-2) Total Protein Albumin Urine Creatinine Urine Chloride 03/03/17 03/04/17 03/04/17 15:46 05:58 06:04 WBC 11.4 H RBC Hgb Hct 46.0 H MCV 101 H MCH 33 H MCHC RDW Plt Count Lymph % (Auto) [place] % (Auto) [place] # Seg Neutrophils % Seg Neuts % (Manual) 71.0 H Lymphocytes % (Manual) 13.0 L Monocytes % (Manual) 13.0 H Seg Neutrophils # Seg Neutrophils # Man 8.1 H Lymphocytes # (Manual) Monocytes # (Manual) 1.5 H Eosinophils # (Manual) PT INR APTT Heparin Anti-Xa Level POC ABG pH POC ABG pCO2 POC ABG pO2 Sodium Potassium 3.3 L Chloride 92.2 L Carbon Dioxide 33 H BUN Creatinine 0.6 L Glucose 133 H POC Glucose 131 H Calcium Phosphorus Magnesium Total Bilirubin AST Total Creatine Kinase CK-MB (CK-2) Total Protein Albumin Urine Creatinine Urine Chloride 03/04/17 03/04/17 03/04/17 07:54 11:24 16:00 WBC RBC Hgb Hct MCV MCH MCHC RDW Plt Count Lymph % (Auto) [place] % (Auto) [place] # Seg Neutrophils % Seg Neuts % (Manual) Lymphocytes % (Manual) Monocytes % (Manual) Seg Neutrophils # Seg Neutrophils # Man Lymphocytes # (Manual) Monocytes # (Manual) Eosinophils # (Manual) PT INR APTT Heparin Anti-Xa Level POC ABG pH POC ABG pCO2 POC ABG pO2 Sodium Potassium Chloride Carbon Dioxide BUN Creatinine Glucose POC Glucose 131 H 134 H 116 H Calcium Phosphorus Magnesium Total Bilirubin AST Total Creatine Kinase CK-MB (CK-2) Total Protein Albumin Urine Creatinine Urine Chloride 03/05/17 03/05/17 03/05/17 00:39 07:03 07:03 WBC 11.4 H RBC Hgb 15.4 H Hct 46.3 H MCV 100 H MCH 33 H MCHC RDW Plt Count Lymph % (Auto) [place] % (Auto) [place] # Seg Neutrophils % Seg Neuts % (Manual) Lymphocytes % (Manual) Monocytes % (Manual) 20.0 H Seg Neutrophils # Seg Neutrophils # Man Lymphocytes # (Manual) Monocytes # (Manual) 2.3 H Eosinophils # (Manual) PT INR APTT Heparin Anti-Xa Level POC ABG pH POC ABG pCO2 POC ABG pO2 Sodium Potassium 3.3 L Chloride 95.2 L Carbon Dioxide 31 H BUN Creatinine 0.6 L Glucose 137 H POC Glucose 116 H Calcium Phosphorus Magnesium Total Bilirubin AST Total Creatine Kinase CK-MB (CK-2) Total Protein Albumin Urine Creatinine Urine Chloride 03/05/17 03/05/17 03/05/17 08:05 12:15 16:07 WBC RBC Hgb Hct MCV MCH MCHC RDW Plt Count Lymph % (Auto) [place] % (Auto) [place] # Seg Neutrophils % Seg Neuts % (Manual) Lymphocytes % (Manual) Monocytes % (Manual) Seg Neutrophils # Seg Neutrophils # Man Lymphocytes # (Manual) Monocytes # (Manual) Eosinophils # (Manual) PT INR APTT Heparin Anti-Xa Level POC ABG pH POC ABG pCO2 POC ABG pO2 Sodium Potassium Chloride Carbon Dioxide BUN Creatinine Glucose POC Glucose 134 H 150 H 113 H Calcium Phosphorus Magnesium Total Bilirubin AST Total Creatine Kinase CK-MB (CK-2) Total Protein Albumin Urine Creatinine Urine Chloride 03/06/17 03/06/17 03/06/17 04:45 04:50 11:50 WBC 11.8 H RBC Hgb 15.7 H Hct 47.1 H MCV 98 H MCH 33 H MCHC RDW Plt Count Lymph % (Auto) [place] % (Auto) [place] # Seg Neutrophils % Seg Neuts % (Manual) Lymphocytes % (Manual) 13.0 L Monocytes % (Manual) 17.0 H Seg Neutrophils # Seg Neutrophils # Man Lymphocytes # (Manual) Monocytes # (Manual) 2.0 H Eosinophils # (Manual) PT INR APTT Heparin Anti-Xa Level POC ABG pH POC ABG pCO2 POC ABG pO2 Sodium Potassium 3.2 L Chloride 94.9 L Carbon Dioxide 31 H BUN Creatinine 0.6 L Glucose 125 H POC Glucose 124 H Calcium Phosphorus 4.60 H Magnesium Total Bilirubin AST Total Creatine Kinase CK-MB (CK-2) Total Protein Albumin Urine Creatinine Urine Chloride 03/06/17 03/06/17 03/07/17 15:43 22:07 04:30 WBC RBC Hgb Hct MCV MCH MCHC RDW Plt Count Lymph % (Auto) [place] % (Auto) [place] # Seg Neutrophils % Seg Neuts % (Manual) Lymphocytes % (Manual) Monocytes % (Manual) Seg Neutrophils # Seg Neutrophils # Man Lymphocytes # (Manual) Monocytes # (Manual) Eosinophils # (Manual) PT INR APTT Heparin Anti-Xa Level POC ABG pH POC ABG pCO2 POC ABG pO2 Sodium Potassium 3.4 L Chloride 95.1 L Carbon Dioxide BUN Creatinine 0.6 L Glucose 129 H POC Glucose 121 H 109 H Calcium Phosphorus Magnesium Total Bilirubin AST Total Creatine Kinase CK-MB (CK-2) Total Protein Albumin Urine Creatinine Urine Chloride 03/07/17 03/07/17 03/07/17 04:37 12:02 15:03 WBC 11.3 H RBC Hgb Hct MCV 99 H MCH 34 H MCHC RDW Plt Count Lymph % (Auto) [place] % (Auto) 14.6 H [place] # 1.6 H Seg Neutrophils % Seg Neuts % (Manual) Lymphocytes % (Manual) Monocytes % (Manual) Seg Neutrophils # Seg Neutrophils # Man Lymphocytes # (Manual) Monocytes # (Manual) Eosinophils # (Manual) PT INR APTT Heparin Anti-Xa Level POC ABG pH POC ABG pCO2 POC ABG pO2 Sodium Potassium Chloride Carbon Dioxide BUN Creatinine Glucose POC Glucose 126 H 108 H Calcium Phosphorus Magnesium Total Bilirubin AST Total Creatine Kinase CK-MB (CK-2) Total Protein Albumin Urine Creatinine Urine Chloride 03/08/17 03/08/17 03/08/17 04:58 04:58 08:22 WBC RBC Hgb 16.4 H Hct 49.3 H MCV 99 H MCH 33 H MCHC RDW Plt Count Lymph % (Auto) [place] % (Auto) 12.1 H [place] # 1.2 H Seg Neutrophils % 71.4 H Seg Neuts % (Manual) Lymphocytes % (Manual) Monocytes % (Manual) Seg Neutrophils # Seg Neutrophils # Man Lymphocytes # (Manual) Monocytes # (Manual) Eosinophils # (Manual) PT INR APTT Heparin Anti-Xa Level POC ABG pH POC ABG pCO2 POC ABG pO2 Sodium 136 L Potassium Chloride 93.7 L Carbon Dioxide BUN Creatinine 0.5 L Glucose 127 H POC Glucose 106 H Calcium Phosphorus Magnesium Total Bilirubin AST 50 H Total Creatine Kinase CK-MB (CK-2) Total Protein Albumin 2.7 L Urine Creatinine Urine Chloride 03/08/17 03/08/17 03/09/17 12:14 17:50 05:26 WBC 11.8 H RBC Hgb 16.3 H Hct 49.1 H MCV 98 H MCH 33 H MCHC RDW Plt Count Lymph % (Auto) [place] % (Auto) 10.8 H [place] # 1.3 H Seg Neutrophils % 71.8 H Seg Neuts % (Manual) Lymphocytes % (Manual) Monocytes % (Manual) Seg Neutrophils # 8.4 H Seg Neutrophils # Man Lymphocytes # (Manual) Monocytes # (Manual) Eosinophils # (Manual) PT INR APTT Heparin Anti-Xa Level POC ABG pH POC ABG pCO2 POC ABG pO2 Sodium Potassium Chloride Carbon Dioxide BUN Creatinine Glucose POC Glucose 115 H 117 H Calcium Phosphorus Magnesium Total Bilirubin AST Total Creatine Kinase CK-MB (CK-2) Total Protein Albumin Urine Creatinine Urine Chloride 03/09/17 03/09/17 03/09/17 05:26 12:39 16:19 WBC RBC Hgb Hct MCV MCH MCHC RDW Plt Count Lymph % (Auto) [place] % (Auto) [place] # Seg Neutrophils % Seg Neuts % (Manual) Lymphocytes % (Manual) Monocytes % (Manual) Seg Neutrophils # Seg Neutrophils # Man Lymphocytes # (Manual) Monocytes # (Manual) Eosinophils # (Manual) PT INR APTT Heparin Anti-Xa Level POC ABG pH POC ABG pCO2 POC ABG pO2 Sodium Potassium Chloride 94.7 L Carbon Dioxide BUN Creatinine 0.7 L Glucose 115 H POC Glucose 111 H 116 H Calcium Phosphorus Magnesium Total Bilirubin AST Total Creatine Kinase CK-MB (CK-2) Total Protein Albumin Urine Creatinine Urine Chloride 03/09/17 03/10/17 03/10/17 22:48 08:27 11:46 WBC RBC Hgb Hct MCV MCH MCHC RDW Plt Count Lymph % (Auto) [place] % (Auto) [place] # Seg Neutrophils % Seg Neuts % (Manual) Lymphocytes % (Manual) Monocytes % (Manual) Seg Neutrophils # Seg Neutrophils # Man Lymphocytes # (Manual) Monocytes # (Manual) Eosinophils # (Manual) PT INR APTT Heparin Anti-Xa Level POC ABG pH POC ABG pCO2 POC ABG pO2 Sodium Potassium Chloride Carbon Dioxide BUN Creatinine Glucose POC Glucose 106 H 107 H 116 H Calcium Phosphorus Magnesium Total Bilirubin AST Total Creatine Kinase CK-MB (CK-2) Total Protein Albumin Urine Creatinine Urine Chloride 03/10/17 03/10/17 03/11/17 17:01 21:46 08:10 WBC RBC Hgb Hct MCV MCH MCHC RDW Plt Count Lymph % (Auto) [place] % (Auto) [place] # Seg Neutrophils % Seg Neuts % (Manual) Lymphocytes % (Manual) Monocytes % (Manual) Seg Neutrophils # Seg Neutrophils # Man Lymphocytes # (Manual) Monocytes # (Manual) Eosinophils # (Manual) PT INR APTT Heparin Anti-Xa Level POC ABG pH POC ABG pCO2 POC ABG pO2 Sodium Potassium Chloride Carbon Dioxide BUN Creatinine Glucose POC Glucose 115 H 135 H 109 H Calcium Phosphorus Magnesium Total Bilirubin AST Total Creatine Kinase CK-MB (CK-2) Total Protein Albumin Urine Creatinine Urine Chloride 03/11/17 03/11/17 03/11/17 12:12 17:45 22:14 WBC RBC Hgb Hct MCV MCH MCHC RDW Plt Count Lymph % (Auto) [place] % (Auto) [place] # Seg Neutrophils % Seg Neuts % (Manual) Lymphocytes % (Manual) Monocytes % (Manual) Seg Neutrophils # Seg Neutrophils # Man Lymphocytes # (Manual) Monocytes # (Manual) Eosinophils # (Manual) PT INR APTT Heparin Anti-Xa Level POC ABG pH POC ABG pCO2 POC ABG pO2 Sodium Potassium Chloride Carbon Dioxide BUN Creatinine Glucose POC Glucose 136 H 126 H 132 H Calcium Phosphorus Magnesium Total Bilirubin AST Total Creatine Kinase CK-MB (CK-2) Total Protein Albumin Urine Creatinine Urine Chloride 03/12/17 03/12/17 03/12/17 08:44 08:44 12:56 WBC 14.9 H RBC 5.04 H Hgb 16.1 H Hct 48.8 H MCV 97 H MCH MCHC RDW Plt Count Lymph % (Auto) 11.7 L [place] % (Auto) 11.6 H [place] # 1.7 H Seg Neutrophils % 75.5 H Seg Neuts % (Manual) Lymphocytes % (Manual) Monocytes % (Manual) Seg Neutrophils # 11.2 H Seg Neutrophils # Man Lymphocytes # (Manual) Monocytes # (Manual) Eosinophils # (Manual) PT INR APTT Heparin Anti-Xa Level POC ABG pH POC ABG pCO2 POC ABG pO2 Sodium Potassium 3.2 L Chloride 93.4 L Carbon Dioxide BUN Creatinine 0.6 L Glucose 121 H POC Glucose 129 H Calcium Phosphorus Magnesium Total Bilirubin 1.30 H AST Total Creatine Kinase CK-MB (CK-2) Total Protein Albumin 3.2 L Urine Creatinine Urine Chloride 03/12/17 03/13/17 03/13/17 17:13 09:05 11:36 WBC RBC Hgb Hct MCV MCH MCHC RDW Plt Count Lymph % (Auto) [place] % (Auto) [place] # Seg Neutrophils % Seg Neuts % (Manual) Lymphocytes % (Manual) Monocytes % (Manual) Seg Neutrophils # Seg Neutrophils # Man Lymphocytes # (Manual) Monocytes # (Manual) Eosinophils # (Manual) PT INR APTT Heparin Anti-Xa Level POC ABG pH POC ABG pCO2 POC ABG pO2 Sodium Potassium Chloride Carbon Dioxide BUN Creatinine Glucose POC Glucose 161 H 110 H 126 H Calcium Phosphorus Magnesium Total Bilirubin AST Total Creatine Kinase CK-MB (CK-2) Total Protein Albumin Urine Creatinine Urine Chloride 03/13/17 03/13/17 03/14/17 16:17 21:43 08:40 WBC RBC Hgb Hct MCV MCH MCHC RDW Plt Count Lymph % (Auto) [place] % (Auto) [place] # Seg Neutrophils % Seg Neuts % (Manual) Lymphocytes % (Manual) Monocytes % (Manual) Seg Neutrophils # Seg Neutrophils # Man Lymphocytes # (Manual) Monocytes # (Manual) Eosinophils # (Manual) PT INR APTT Heparin Anti-Xa Level POC ABG pH POC ABG pCO2 POC ABG pO2 Sodium Potassium Chloride Carbon Dioxide BUN Creatinine Glucose POC Glucose 126 H 115 H 106 H Calcium Phosphorus Magnesium Total Bilirubin AST Total Creatine Kinase CK-MB (CK-2) Total Protein Albumin Urine Creatinine Urine Chloride 03/14/17 03/14/17 03/14/17 12:01 17:39 20:30 WBC RBC Hgb Hct MCV MCH MCHC RDW Plt Count Lymph % (Auto) [place] % (Auto) [place] # Seg Neutrophils % Seg Neuts % (Manual) Lymphocytes % (Manual) Monocytes % (Manual) Seg Neutrophils # Seg Neutrophils # Man Lymphocytes # (Manual) Monocytes # (Manual) Eosinophils # (Manual) PT INR APTT Heparin Anti-Xa Level POC ABG pH POC ABG pCO2 POC ABG pO2 Sodium Potassium Chloride Carbon Dioxide BUN Creatinine Glucose POC Glucose 116 H 192 H 122 H Calcium Phosphorus Magnesium Total Bilirubin AST Total Creatine Kinase CK-MB (CK-2) Total Protein Albumin Urine Creatinine Urine Chloride 03/15/17 03/15/17 03/15/17 01:12 06:49 08:46 WBC 23.9 H RBC Hgb 16.1 H Hct 49.4 H MCV 100 H D MCH 33 H MCHC RDW Plt Count Lymph % (Auto) [place] % (Auto) [place] # Seg Neutrophils % Seg Neuts % (Manual) 92.0 H Lymphocytes % (Manual) 4.0 L Monocytes % (Manual) Seg Neutrophils # Seg Neutrophils # Man 22.0 H Lymphocytes # (Manual) 1.0 L Monocytes # (Manual) 1.0 H Eosinophils # (Manual) PT INR APTT Heparin Anti-Xa Level POC ABG pH POC ABG pCO2 POC ABG pO2 Sodium Potassium Chloride 91.0 L Carbon Dioxide 33 H BUN 45 H Creatinine Glucose 160 H POC Glucose 147 H Calcium Phosphorus Magnesium Total Bilirubin AST 41 H Total Creatine Kinase CK-MB (CK-2) Total Protein Albumin 3.0 L Urine Creatinine Urine Chloride 03/15/17 03/15/17 03/15/17 12:11 16:00 20:51 WBC RBC Hgb Hct MCV MCH MCHC RDW Plt Count Lymph % (Auto) [place] % (Auto) [place] # Seg Neutrophils % Seg Neuts % (Manual) Lymphocytes % (Manual) Monocytes % (Manual) Seg Neutrophils # Seg Neutrophils # Man Lymphocytes # (Manual) Monocytes # (Manual) Eosinophils # (Manual) PT INR APTT Heparin Anti-Xa Level POC ABG pH POC ABG pCO2 POC ABG pO2 Sodium Potassium Chloride Carbon Dioxide BUN Creatinine Glucose POC Glucose 144 H 134 H 148 H Calcium Phosphorus Magnesium Total Bilirubin AST Total Creatine Kinase CK-MB (CK-2) Total Protein Albumin Urine Creatinine Urine Chloride 03/16/17 03/16/17 03/16/17 05:59 06:02 09:15 WBC 20.9 H RBC Hgb Hct 45.8 H MCV 99 H MCH 33 H MCHC RDW Plt Count Lymph % (Auto) [place] % (Auto) [place] # Seg Neutrophils % Seg Neuts % (Manual) 92.0 H Lymphocytes % (Manual) 4.0 L Monocytes % (Manual) Seg Neutrophils # Seg Neutrophils # Man 19.2 H Lymphocytes # (Manual) 0.8 L Monocytes # (Manual) Eosinophils # (Manual) PT INR APTT Heparin Anti-Xa Level POC ABG pH POC ABG pCO2 POC ABG pO2 Sodium Potassium Chloride 92.3 L Carbon Dioxide 34 H BUN 44 H Creatinine Glucose 150 H POC Glucose 127 H Calcium Phosphorus Magnesium Total Bilirubin AST Total Creatine Kinase CK-MB (CK-2) Total Protein Albumin Urine Creatinine Urine Chloride 03/16/17 03/16/17 03/17/17 11:59 18:08 07:06 WBC RBC Hgb Hct MCV MCH MCHC RDW Plt Count Lymph % (Auto) [place] % (Auto) [place] # Seg Neutrophils % Seg Neuts % (Manual) Lymphocytes % (Manual) Monocytes % (Manual) Seg Neutrophils # Seg Neutrophils # Man Lymphocytes # (Manual) Monocytes # (Manual) Eosinophils # (Manual) PT INR APTT Heparin Anti-Xa Level POC ABG pH POC ABG pCO2 POC ABG pO2 Sodium Potassium Chloride 93.3 L Carbon Dioxide 35 H BUN 31 H Creatinine Glucose 132 H POC Glucose 147 H 138 H Calcium Phosphorus Magnesium Total Bilirubin AST Total Creatine Kinase CK-MB (CK-2) Total Protein Albumin Urine Creatinine Urine Chloride 03/17/17 03/17/17 03/17/17 07:06 07:14 12:35 WBC 16.6 H RBC Hgb 15.6 H Hct 47.5 H MCV 99 H MCH 33 H MCHC RDW Plt Count Lymph % (Auto) 8.4 L [place] % (Auto) 8.1 H [place] # 1.3 H Seg Neutrophils % 81.8 H Seg Neuts % (Manual) Lymphocytes % (Manual) Monocytes % (Manual) Seg Neutrophils # 13.6 H Seg Neutrophils # Man Lymphocytes # (Manual) Monocytes # (Manual) Eosinophils # (Manual) PT INR APTT Heparin Anti-Xa Level POC ABG pH POC ABG pCO2 POC ABG pO2 Sodium Potassium Chloride Carbon Dioxide BUN Creatinine Glucose POC Glucose 119 H 132 H Calcium Phosphorus Magnesium Total Bilirubin AST Total Creatine Kinase CK-MB (CK-2) Total Protein Albumin Urine Creatinine Urine Chloride 03/18/17 03/18/17 03/18/17 05:05 06:15 06:15 WBC 15.8 H RBC Hgb 16.5 H Hct 49.3 H MCV 99 H MCH 33 H MCHC RDW Plt Count Lymph % (Auto) [place] % (Auto) [place] # Seg Neutrophils % Seg Neuts % (Manual) 88.0 H Lymphocytes % (Manual) 2.0 L Monocytes % (Manual) 8.0 H Seg Neutrophils # Seg Neutrophils # Man 13.9 H Lymphocytes # (Manual) 0.3 L Monocytes # (Manual) 1.3 H Eosinophils # (Manual) PT INR APTT Heparin Anti-Xa Level POC ABG pH POC ABG pCO2 72.9 H POC ABG pO2 168 H Sodium 147 H Potassium 3.5 L Chloride 95.3 L Carbon Dioxide 37 H BUN 29 H Creatinine Glucose 155 H POC Glucose Calcium Phosphorus Magnesium Total Bilirubin AST Total Creatine Kinase CK-MB (CK-2) Total Protein Albumin Urine Creatinine Urine Chloride 03/18/17 03/18/17 03/18/17 08:27 11:24 11:31 WBC RBC Hgb Hct MCV MCH MCHC RDW Plt Count Lymph % (Auto) [place] % (Auto) [place] # Seg Neutrophils % Seg Neuts % (Manual) Lymphocytes % (Manual) Monocytes % (Manual) Seg Neutrophils # Seg Neutrophils # Man Lymphocytes # (Manual) Monocytes # (Manual) Eosinophils # (Manual) PT INR APTT Heparin Anti-Xa Level POC ABG pH 7.530 H POC ABG pCO2 POC ABG pO2 60 L Sodium Potassium Chloride Carbon Dioxide BUN Creatinine Glucose POC Glucose 123 H 176 H Calcium Phosphorus Magnesium Total Bilirubin AST Total Creatine Kinase CK-MB (CK-2) Total Protein Albumin Urine Creatinine Urine Chloride 03/18/17 03/18/17 03/18/17 14:10 15:24 17:23 WBC RBC Hgb 15.4 H Hct 46.4 H MCV MCH MCHC RDW Plt Count Lymph % (Auto) [place] % (Auto) [place] # Seg Neutrophils % Seg Neuts % (Manual) Lymphocytes % (Manual) Monocytes % (Manual) Seg Neutrophils # Seg Neutrophils # Man Lymphocytes # (Manual) Monocytes # (Manual) Eosinophils # (Manual) PT INR APTT Heparin Anti-Xa Level POC ABG pH POC ABG pCO2 POC ABG pO2 Sodium Potassium Chloride 94.5 L Carbon Dioxide 33 H BUN 33 H Creatinine 1.6 H Glucose 241 H POC Glucose 244 H Calcium Phosphorus Magnesium Total Bilirubin AST Total Creatine Kinase CK-MB (CK-2) Total Protein Albumin 3.0 L Urine Creatinine Urine Chloride 06/12/0303/18/17 03/19/17 17:23 21:33 03:54 WBC 25.4 H RBC Hgb Hct MCV 98 H MCH MCHC RDW Plt Count Lymph % (Auto) [place] % (Auto) [place] # Seg Neutrophils % Seg Neuts % (Manual) 83.0 H Lymphocytes % (Manual) 4.5 L Monocytes % (Manual) 8.0 H Seg Neutrophils # Seg Neutrophils # Man 21.1 H Lymphocytes # (Manual) 1.1 L Monocytes # (Manual) 2.0 H Eosinophils # (Manual) PT 17.1 H INR 1.40 H APTT Heparin Anti-Xa Level POC ABG pH POC ABG pCO2 POC ABG pO2 Sodium Potassium Chloride Carbon Dioxide BUN Creatinine Glucose POC Glucose 164 H Calcium Phosphorus Magnesium Total Bilirubin AST Total Creatine Kinase CK-MB (CK-2) Total Protein Albumin Urine Creatinine Urine Chloride 03/19/17 03/19/17 03/19/17 03:54 06:55 06:55 WBC RBC Hgb Hct MCV MCH MCHC RDW Plt Count Lymph % (Auto) [place] % (Auto) [place] # Seg Neutrophils % Seg Neuts % (Manual) Lymphocytes % (Manual) Monocytes % (Manual) Seg Neutrophils # Seg Neutrophils # Man Lymphocytes # (Manual) Monocytes # (Manual) Eosinophils # (Manual) PT INR APTT Heparin Anti-Xa Level 0.29 L POC ABG pH POC ABG pCO2 POC ABG pO2 Sodium 146 H Potassium 3.4 L Chloride 97.8 L Carbon Dioxide 33 H BUN 30 H Creatinine Glucose 134 H POC Glucose Calcium Phosphorus Magnesium 1.60 L Total Bilirubin AST Total Creatine Kinase CK-MB (CK-2) Total Protein Albumin Urine Creatinine Urine Chloride 03/19/17 03/19/17 03/19/17 08:01 12:56 14:54 WBC RBC Hgb Hct MCV MCH MCHC RDW Plt Count Lymph % (Auto) [place] % (Auto) [place] # Seg Neutrophils % Seg Neuts % (Manual) Lymphocytes % (Manual) Monocytes % (Manual) Seg Neutrophils # Seg Neutrophils # Man Lymphocytes # (Manual) Monocytes # (Manual) Eosinophils # (Manual) PT INR APTT Heparin Anti-Xa Level POC ABG pH POC ABG pCO2 57.8 H POC ABG pO2 71 L Sodium Potassium Chloride Carbon Dioxide BUN Creatinine Glucose POC Glucose 139 H 167 H Calcium Phosphorus Magnesium Total Bilirubin AST Total Creatine Kinase CK-MB (CK-2) Total Protein Albumin Urine Creatinine Urine Chloride 03/19/17 03/19/17 03/20/17 15:53 21:04 03:36 WBC RBC Hgb 15.3 H Hct 48.1 H MCV MCH MCHC RDW Plt Count Lymph % (Auto) [place] % (Auto) [place] # Seg Neutrophils % Seg Neuts % (Manual) Lymphocytes % (Manual) Monocytes % (Manual) Seg Neutrophils # Seg Neutrophils # Man Lymphocytes # (Manual) Monocytes # (Manual) Eosinophils # (Manual) PT INR APTT Heparin Anti-Xa Level POC ABG pH POC ABG pCO2 POC ABG pO2 Sodium Potassium Chloride Carbon Dioxide BUN Creatinine Glucose POC Glucose 172 H 159 H Calcium Phosphorus Magnesium Total Bilirubin AST Total Creatine Kinase CK-MB (CK-2) Total Protein Albumin Urine Creatinine Urine Chloride 03/20/17 03/20/17 03/20/17 07:45 12:02 14:07 WBC RBC Hgb Hct MCV MCH MCHC RDW Plt Count Lymph % (Auto) [place] % (Auto) [place] # Seg Neutrophils % Seg Neuts % (Manual) Lymphocytes % (Manual) Monocytes % (Manual) Seg Neutrophils # Seg Neutrophils # Man Lymphocytes # (Manual) Monocytes # (Manual) Eosinophils # (Manual) PT INR APTT Heparin Anti-Xa Level POC ABG pH 7.312 L POC ABG pCO2 68.3 H POC ABG pO2 47 L Sodium Potassium Chloride Carbon Dioxide BUN Creatinine Glucose POC Glucose 160 H 142 H Calcium Phosphorus Magnesium Total Bilirubin AST Total Creatine Kinase CK-MB (CK-2) Total Protein Albumin Urine Creatinine Urine Chloride 03/20/17 03/20/17 03/20/17 15:57 15:59 19:50 WBC RBC Hgb Hct MCV MCH MCHC RDW Plt Count Lymph % (Auto) [place] % (Auto) [place] # Seg Neutrophils % Seg Neuts % (Manual) Lymphocytes % (Manual) Monocytes % (Manual) Seg Neutrophils # Seg Neutrophils # Man Lymphocytes # (Manual) Monocytes # (Manual) Eosinophils # (Manual) PT INR APTT Heparin Anti-Xa Level POC ABG pH 7.214 L POC ABG pCO2 82.8 H 58.7 H POC ABG pO2 69 L Sodium Potassium Chloride Carbon Dioxide BUN Creatinine Glucose POC Glucose 149 H Calcium Phosphorus Magnesium Total Bilirubin AST Total Creatine Kinase CK-MB (CK-2) Total Protein Albumin Urine Creatinine Urine Chloride 03/20/17 03/20/17 03/21/17 21:19 23:34 04:18 WBC RBC Hgb Hct MCV MCH MCHC RDW Plt Count Lymph % (Auto) [place] % (Auto) [place] # Seg Neutrophils % Seg Neuts % (Manual) Lymphocytes % (Manual) Monocytes % (Manual) Seg Neutrophils # Seg Neutrophils # Man Lymphocytes # (Manual) Monocytes # (Manual) Eosinophils # (Manual) PT INR APTT Heparin Anti-Xa Level 0.20 L POC ABG pH POC ABG pCO2 48.6 H POC ABG pO2 79 L Sodium Potassium Chloride Carbon Dioxide BUN Creatinine Glucose POC Glucose 206 H Calcium Phosphorus Magnesium Total Bilirubin AST Total Creatine Kinase CK-MB (CK-2) Total Protein Albumin Urine Creatinine Urine Chloride 03/21/17 03/21/17 03/21/17 04:21 04:21 05:23 WBC RBC Hgb Hct MCV MCH MCHC RDW Plt Count Lymph % (Auto) [place] % (Auto) [place] # Seg Neutrophils % Seg Neuts % (Manual) Lymphocytes % (Manual) Monocytes % (Manual) Seg Neutrophils # Seg Neutrophils # Man Lymphocytes # (Manual) Monocytes # (Manual) Eosinophils # (Manual) PT INR APTT Heparin Anti-Xa Level 0.24 L POC ABG pH POC ABG pCO2 POC ABG pO2 Sodium 147 H Potassium Chloride Carbon Dioxide BUN 42 H Creatinine 2.6 H D Glucose 209 H POC Glucose 181 H Calcium 7.9 L Phosphorus Magnesium Total Bilirubin AST Total Creatine Kinase CK-MB (CK-2) Total Protein Albumin Urine Creatinine Urine Chloride 03/21/17 03/21/17 03/21/17 13:16 13:16 14:43 WBC 27.8 H RBC Hgb Hct MCV 101 H D MCH MCHC RDW Plt Count Lymph % (Auto) [place] % (Auto) [place] # Seg Neutrophils % Seg Neuts % (Manual) 76.0 H Lymphocytes % (Manual) 7.0 L Monocytes % (Manual) Seg Neutrophils # Seg Neutrophils # Man 21.1 H Lymphocytes # (Manual) Monocytes # (Manual) 1.1 H Eosinophils # (Manual) PT INR APTT Heparin Anti-Xa Level 0.25 L POC ABG pH 7.474 H POC ABG pCO2 POC ABG pO2 59 L Sodium Potassium Chloride Carbon Dioxide BUN Creatinine Glucose POC Glucose Calcium Phosphorus Magnesium Total Bilirubin AST Total Creatine Kinase CK-MB (CK-2) Total Protein Albumin Urine Creatinine Urine Chloride 03/21/17 03/21/17 03/21/17 17:00 18:20 23:40 WBC RBC Hgb Hct MCV MCH MCHC RDW Plt Count Lymph % (Auto) [place] % (Auto) [place] # Seg Neutrophils % Seg Neuts % (Manual) Lymphocytes % (Manual) Monocytes % (Manual) Seg Neutrophils # Seg Neutrophils # Man Lymphocytes # (Manual) Monocytes # (Manual) Eosinophils # (Manual) PT INR APTT Heparin Anti-Xa Level POC ABG pH POC ABG pCO2 POC ABG pO2 Sodium Potassium Chloride Carbon Dioxide BUN 48 H Creatinine 3.2 H Glucose 135 H POC Glucose 152 H 136 H Calcium 6.8 L Phosphorus Magnesium Total Bilirubin AST Total Creatine Kinase CK-MB (CK-2) Total Protein 5.3 L D Albumin 1.7 L Urine Creatinine Urine Chloride 03/22/17 03/22/17 03/22/17 04:30 04:30 04:30 WBC 29.3 H RBC Hgb Hct MCV 100 H MCH MCHC 31 L RDW 15.3 H Plt Count Lymph % (Auto) [place] % (Auto) [place] # Seg Neutrophils % Seg Neuts % (Manual) Lymphocytes % (Manual) Monocytes % (Manual) Seg Neutrophils # Seg Neutrophils # Man Lymphocytes # (Manual) Monocytes # (Manual) Eosinophils # (Manual) PT INR APTT Heparin Anti-Xa Level 0.29 L POC ABG pH POC ABG pCO2 POC ABG pO2 Sodium Potassium Chloride Carbon Dioxide BUN 60 H Creatinine 4.3 H Glucose 118 H POC Glucose Calcium 8.2 L D Phosphorus Magnesium Total Bilirubin AST Total Creatine Kinase CK-MB (CK-2) Total Protein Albumin 1.8 L Urine Creatinine Urine Chloride 03/22/17 03/22/17 03/22/17 05:08 07:00 07:00 WBC 24.8 H RBC Hgb Hct MCV 100 H MCH MCHC RDW Plt Count Lymph % (Auto) [place] % (Auto) [place] # Seg Neutrophils % Seg Neuts % (Manual) 94.0 H Lymphocytes % (Manual) 0 L Monocytes % (Manual) Seg Neutrophils # Seg Neutrophils # Man 23.3 H Lymphocytes # (Manual) 0.0 L Monocytes # (Manual) Eosinophils # (Manual) 0.7 H PT INR APTT Heparin Anti-Xa Level POC ABG pH POC ABG pCO2 POC ABG pO2 Sodium 147 H Potassium Chloride 109.2 H Carbon Dioxide BUN 58 H Creatinine 4.1 H Glucose 117 H POC Glucose 124 H Calcium 7.4 L Phosphorus Magnesium Total Bilirubin AST Total Creatine Kinase CK-MB (CK-2) Total Protein Albumin Urine Creatinine Urine Chloride 03/22/17 03/22/17 03/22/17 08:40 11:37 14:30 WBC RBC Hgb Hct MCV MCH MCHC RDW Plt Count Lymph % (Auto) [place] % (Auto) [place] # Seg Neutrophils % Seg Neuts % (Manual) Lymphocytes % (Manual) Monocytes % (Manual) Seg Neutrophils # Seg Neutrophils # Man Lymphocytes # (Manual) Monocytes # (Manual) Eosinophils # (Manual) PT 16.2 H INR 1.31 H APTT 68.9 H* Heparin Anti-Xa Level < 0.10 L POC ABG pH POC ABG pCO2 POC ABG pO2 Sodium Potassium Chloride Carbon Dioxide BUN Creatinine Glucose POC Glucose 159 H Calcium Phosphorus Magnesium Total Bilirubin AST Total Creatine Kinase CK-MB (CK-2) Total Protein Albumin Urine Creatinine Urine Chloride 03/22/17 03/22/17 03/22/17 17:53 21:44 23:54 WBC RBC Hgb 11.6 L Hct 33.1 L MCV MCH MCHC RDW Plt Count Lymph % (Auto) [place] % (Auto) [place] # Seg Neutrophils % Seg Neuts % (Manual) Lymphocytes % (Manual) Monocytes % (Manual) Seg Neutrophils # Seg Neutrophils # Man Lymphocytes # (Manual) Monocytes # (Manual) Eosinophils # (Manual) PT INR APTT Heparin Anti-Xa Level POC ABG pH POC ABG pCO2 POC ABG pO2 Sodium Potassium Chloride Carbon Dioxide BUN Creatinine Glucose POC Glucose 142 H 131 H Calcium Phosphorus Magnesium Total Bilirubin AST Total Creatine Kinase CK-MB (CK-2) Total Protein Albumin Urine Creatinine Urine Chloride 03/23/17 03/23/17 03/23/17 04:08 05:29 06:34 WBC RBC Hgb Hct MCV MCH MCHC RDW Plt Count Lymph % (Auto) [place] % (Auto) [place] # Seg Neutrophils % Seg Neuts % (Manual) Lymphocytes % (Manual) Monocytes % (Manual) Seg Neutrophils # Seg Neutrophils # Man Lymphocytes # (Manual) Monocytes # (Manual) Eosinophils # (Manual) PT INR APTT Heparin Anti-Xa Level POC ABG pH POC ABG pCO2 POC ABG pO2 75 L Sodium Potassium Chloride Carbon Dioxide 21 L BUN 85 H Creatinine 6.0 H Glucose 134 H POC Glucose 134 H Calcium 8.1 L Phosphorus Magnesium Total Bilirubin AST Total Creatine Kinase CK-MB (CK-2) Total Protein Albumin Urine Creatinine Urine Chloride 03/23/17 03/23/17 03/23/17 12:09 17:20 17:52 WBC RBC Hgb Hct MCV MCH MCHC RDW Plt Count Lymph % (Auto) [place] % (Auto) [place] # Seg Neutrophils % Seg Neuts % (Manual) Lymphocytes % (Manual) Monocytes % (Manual) Seg Neutrophils # Seg Neutrophils # Man Lymphocytes # (Manual) Monocytes # (Manual) Eosinophils # (Manual) PT INR APTT Heparin Anti-Xa Level 1.39 H POC ABG pH POC ABG pCO2 POC ABG pO2 Sodium Potassium Chloride Carbon Dioxide BUN Creatinine Glucose POC Glucose 133 H 151 H Calcium Phosphorus Magnesium Total Bilirubin AST Total Creatine Kinase CK-MB (CK-2) Total Protein Albumin Urine Creatinine Urine Chloride 03/23/17 03/24/17 03/24/17 23:59 03:15 03:15 WBC 23.9 H RBC 3.58 L Hgb 11.6 L Hct 34.6 L MCV 97 H D MCH MCHC RDW Plt Count 122 L Lymph % (Auto) [place] % (Auto) [place] # Seg Neutrophils % Seg Neuts % (Manual) Lymphocytes % (Manual) Monocytes % (Manual) Seg Neutrophils # Seg Neutrophils # Man Lymphocytes # (Manual) Monocytes # (Manual) Eosinophils # (Manual) PT INR APTT Heparin Anti-Xa Level POC ABG pH POC ABG pCO2 POC ABG pO2 Sodium 135 L Potassium Chloride 95.0 L Carbon Dioxide BUN 71 H Creatinine 5.2 H Glucose 123 H POC Glucose 124 H Calcium 8.0 L Phosphorus Magnesium Total Bilirubin AST Total Creatine Kinase CK-MB (CK-2) Total Protein Albumin Urine Creatinine Urine Chloride 03/24/17 03/24/17 03/24/17 03:15 04:53 11:58 WBC RBC Hgb Hct MCV MCH MCHC RDW Plt Count Lymph % (Auto) [place] % (Auto) [place] # Seg Neutrophils % Seg Neuts % (Manual) Lymphocytes % (Manual) Monocytes % (Manual) Seg Neutrophils # Seg Neutrophils # Man Lymphocytes # (Manual) Monocytes # (Manual) Eosinophils # (Manual) PT INR APTT Heparin Anti-Xa Level 0.20 L POC ABG pH POC ABG pCO2 POC ABG pO2 72 L Sodium Potassium Chloride Carbon Dioxide BUN Creatinine Glucose POC Glucose 121 H Calcium Phosphorus Magnesium Total Bilirubin AST Total Creatine Kinase CK-MB (CK-2) Total Protein Albumin Urine Creatinine Urine Chloride 03/24/17 03/25/17 03/25/17 18:16 00:24 05:30 WBC RBC Hgb Hct MCV MCH MCHC RDW Plt Count Lymph % (Auto) [place] % (Auto) [place] # Seg Neutrophils % Seg Neuts % (Manual) Lymphocytes % (Manual) Monocytes % (Manual) Seg Neutrophils # Seg Neutrophils # Man Lymphocytes # (Manual) Monocytes # (Manual) Eosinophils # (Manual) PT INR APTT Heparin Anti-Xa Level POC ABG pH POC ABG pCO2 34.2 L POC ABG pO2 Sodium Potassium Chloride Carbon Dioxide BUN Creatinine Glucose POC Glucose 117 H 107 H Calcium Phosphorus Magnesium Total Bilirubin AST Total Creatine Kinase CK-MB (CK-2) Total Protein Albumin Urine Creatinine Urine Chloride 03/25/17 03/25/17 03/25/17 05:35 11:45 16:48 WBC RBC Hgb Hct MCV MCH MCHC RDW Plt Count Lymph % (Auto) [place] % (Auto) [place] # Seg Neutrophils % Seg Neuts % (Manual) Lymphocytes % (Manual) Monocytes % (Manual) Seg Neutrophils # Seg Neutrophils # Man Lymphocytes # (Manual) Monocytes # (Manual) Eosinophils # (Manual) PT INR APTT Heparin Anti-Xa Level POC ABG pH POC ABG pCO2 POC ABG pO2 Sodium 132 L Potassium Chloride 92.0 L Carbon Dioxide 20 L BUN 102 H Creatinine 7.2 H Glucose 101 H POC Glucose 127 H 114 H Calcium 8.3 L Phosphorus Magnesium Total Bilirubin AST Total Creatine Kinase CK-MB (CK-2) Total Protein Albumin Urine Creatinine Urine Chloride 03/26/17 03/26/17 03/26/17 00:17 04:15 04:15 WBC 21.1 H RBC 3.52 L Hgb 11.0 L Hct 33.2 L MCV 95 H MCH MCHC RDW Plt Count 121 L Lymph % (Auto) [place] % (Auto) [place] # Seg Neutrophils % Seg Neuts % (Manual) Lymphocytes % (Manual) Monocytes % (Manual) Seg Neutrophils # Seg Neutrophils # Man Lymphocytes # (Manual) Monocytes # (Manual) Eosinophils # (Manual) PT INR APTT Heparin Anti-Xa Level POC ABG pH POC ABG pCO2 POC ABG pO2 Sodium 133 L Potassium Chloride 92.9 L Carbon Dioxide 21 L BUN 77 H Creatinine 5.4 H Glucose 115 H POC Glucose 114 H Calcium 8.1 L Phosphorus Magnesium Total Bilirubin AST Total Creatine Kinase CK-MB (CK-2) Total Protein Albumin Urine Creatinine Urine Chloride 03/26/17 03/26/17 03/26/17 04:49 11:36 23:29 WBC RBC Hgb Hct MCV MCH MCHC RDW Plt Count Lymph % (Auto) [place] % (Auto) [place] # Seg Neutrophils % Seg Neuts % (Manual) Lymphocytes % (Manual) Monocytes % (Manual) Seg Neutrophils # Seg Neutrophils # Man Lymphocytes # (Manual) Monocytes # (Manual) Eosinophils # (Manual) PT INR APTT Heparin Anti-Xa Level POC ABG pH POC ABG pCO2 POC ABG pO2 Sodium Potassium Chloride Carbon Dioxide BUN Creatinine Glucose POC Glucose 127 H 123 H 125 H Calcium Phosphorus Magnesium Total Bilirubin AST Total Creatine Kinase CK-MB (CK-2) Total Protein Albumin Urine Creatinine Urine Chloride 03/27/17 03/27/17 03/27/17 04:00 04:46 05:06 WBC RBC Hgb Hct MCV MCH MCHC RDW Plt Count Lymph % (Auto) [place] % (Auto) [place] # Seg Neutrophils % Seg Neuts % (Manual) Lymphocytes % (Manual) Monocytes % (Manual) Seg Neutrophils # Seg Neutrophils # Man Lymphocytes # (Manual) Monocytes # (Manual) Eosinophils # (Manual) PT INR APTT Heparin Anti-Xa Level POC ABG pH POC ABG pCO2 31.4 L POC ABG pO2 Sodium 132 L Potassium Chloride 90.5 L Carbon Dioxide 19 L BUN 95 H Creatinine 6.7 H Glucose 110 H POC Glucose 116 H Calcium Phosphorus Magnesium Total Bilirubin AST Total Creatine Kinase CK-MB (CK-2) Total Protein Albumin Urine Creatinine Urine Chloride 03/27/17 03/27/17 03/27/17 08:11 08:11 11:34 WBC 24.7 H RBC Hgb 11.5 L Hct 35.0 L MCV 95 H MCH MCHC RDW Plt Count Lymph % (Auto) [place] % (Auto) [place] # Seg Neutrophils % Seg Neuts % (Manual) Lymphocytes % (Manual) Monocytes % (Manual) Seg Neutrophils # Seg Neutrophils # Man Lymphocytes # (Manual) Monocytes # (Manual) Eosinophils # (Manual) PT INR APTT Heparin Anti-Xa Level < 0.10 L POC ABG pH POC ABG pCO2 POC ABG pO2 Sodium Potassium Chloride Carbon Dioxide BUN Creatinine Glucose POC Glucose 118 H Calcium Phosphorus Magnesium Total Bilirubin AST Total Creatine Kinase CK-MB (CK-2) Total Protein Albumin Urine Creatinine Urine Chloride 03/27/17 03/27/17 03/28/17 16:44 23:59 05:07 WBC RBC Hgb Hct MCV MCH MCHC RDW Plt Count Lymph % (Auto) [place] % (Auto) [place] # Seg Neutrophils % Seg Neuts % (Manual) Lymphocytes % (Manual) Monocytes % (Manual) Seg Neutrophils # Seg Neutrophils # Man Lymphocytes # (Manual) Monocytes # (Manual) Eosinophils # (Manual) PT INR APTT Heparin Anti-Xa Level POC ABG pH POC ABG pCO2 POC ABG pO2 Sodium Potassium Chloride Carbon Dioxide BUN Creatinine Glucose POC Glucose 110 H 109 H 110 H Calcium Phosphorus Magnesium Total Bilirubin AST Total Creatine Kinase CK-MB (CK-2) Total Protein Albumin Urine Creatinine Urine Chloride 03/28/17 03/28/17 03/28/17 07:00 11:24 11:50 WBC 26.6 H RBC 3.42 L Hgb 10.8 L Hct 33.2 L MCV 97 H MCH MCHC RDW 15.4 H Plt Count Lymph % (Auto) [place] % (Auto) [place] # Seg Neutrophils % Seg Neuts % (Manual) Lymphocytes % (Manual) Monocytes % (Manual) Seg Neutrophils # Seg Neutrophils # Man Lymphocytes # (Manual) Monocytes # (Manual) Eosinophils # (Manual) PT INR APTT Heparin Anti-Xa Level POC ABG pH POC ABG pCO2 POC ABG pO2 Sodium 131 L Potassium 5.3 H Chloride 86.6 L Carbon Dioxide 17 L BUN 112 H Creatinine 7.9 H Glucose 120 H POC Glucose 141 H Calcium Phosphorus Magnesium Total Bilirubin AST Total Creatine Kinase CK-MB (CK-2) Total Protein Albumin Urine Creatinine Urine Chloride 03/28/17 03/28/17 03/28/17 17:25 18:04 23:07 WBC RBC Hgb Hct MCV MCH MCHC RDW Plt Count Lymph % (Auto) [place] % (Auto) [place] # Seg Neutrophils % Seg Neuts % (Manual) Lymphocytes % (Manual) Monocytes % (Manual) Seg Neutrophils # Seg Neutrophils # Man Lymphocytes # (Manual) Monocytes # (Manual) Eosinophils # (Manual) PT INR APTT Heparin Anti-Xa Level 0.23 L POC ABG pH POC ABG pCO2 POC ABG pO2 Sodium Potassium Chloride Carbon Dioxide BUN Creatinine Glucose POC Glucose 128 H 115 H Calcium Phosphorus Magnesium Total Bilirubin AST Total Creatine Kinase CK-MB (CK-2) Total Protein Albumin Urine Creatinine Urine Chloride 03/29/17 03/29/17 03/29/17 03:23 05:16 08:20 WBC RBC Hgb Hct MCV MCH MCHC RDW Plt Count Lymph % (Auto) [place] % (Auto) [place] # Seg Neutrophils % Seg Neuts % (Manual) Lymphocytes % (Manual) Monocytes % (Manual) Seg Neutrophils # Seg Neutrophils # Man Lymphocytes # (Manual) Monocytes # (Manual) Eosinophils # (Manual) PT INR APTT Heparin Anti-Xa Level 0.10 L POC ABG pH POC ABG pCO2 POC ABG pO2 Sodium 126 L Potassium 5.6 H Chloride 87.5 L Carbon Dioxide 21 L BUN 84 H Creatinine 6.0 H Glucose 144 H POC Glucose 146 H Calcium 7.9 L Phosphorus Magnesium Total Bilirubin AST Total Creatine Kinase CK-MB (CK-2) Total Protein Albumin Urine Creatinine Urine Chloride 03/29/17 03/29/17 03/29/17 08:20 09:13 10:00 WBC 27.6 H RBC 3.27 L Hgb 10.2 L Hct 31.8 L MCV 97 H MCH MCHC RDW 15.3 H Plt Count Lymph % (Auto) [place] % (Auto) [place] # Seg Neutrophils % Seg Neuts % (Manual) Lymphocytes % (Manual) Monocytes % (Manual) Seg Neutrophils # Seg Neutrophils # Man Lymphocytes # (Manual) Monocytes # (Manual) Eosinophils # (Manual) PT INR APTT Heparin Anti-Xa Level 0.84 H POC ABG pH 7.204 L POC ABG pCO2 52.8 H POC ABG pO2 57 L Sodium Potassium Chloride Carbon Dioxide BUN Creatinine Glucose POC Glucose Calcium Phosphorus Magnesium Total Bilirubin AST Total Creatine Kinase CK-MB (CK-2) Total Protein Albumin Urine Creatinine Urine Chloride 03/29/17 03/29/17 03/29/17 10:24 12:27 16:44 WBC RBC Hgb Hct MCV MCH MCHC RDW Plt Count Lymph % (Auto) [place] % (Auto) [place] # Seg Neutrophils % Seg Neuts % (Manual) Lymphocytes % (Manual) Monocytes % (Manual) Seg Neutrophils # Seg Neutrophils # Man Lymphocytes # (Manual) Monocytes # (Manual) Eosinophils # (Manual) PT INR APTT Heparin Anti-Xa Level < 0.10 L POC ABG pH 7.305 L POC ABG pCO2 POC ABG pO2 73 L Sodium Potassium Chloride Carbon Dioxide BUN Creatinine Glucose POC Glucose 152 H Calcium Phosphorus Magnesium Total Bilirubin AST Total Creatine Kinase CK-MB (CK-2) Total Protein Albumin Urine Creatinine Urine Chloride 03/29/17 03/29/17 03/29/17 17:48 18:56 22:10 WBC RBC Hgb Hct MCV MCH MCHC RDW Plt Count Lymph % (Auto) [place] % (Auto) [place] # Seg Neutrophils % Seg Neuts % (Manual) Lymphocytes % (Manual) Monocytes % (Manual) Seg Neutrophils # Seg Neutrophils # Man Lymphocytes # (Manual) Monocytes # (Manual) Eosinophils # (Manual) PT INR APTT Heparin Anti-Xa Level POC ABG pH POC ABG pCO2 POC ABG pO2 Sodium 125 L Potassium 5.8 H Chloride 85.4 L Carbon Dioxide 16 L BUN 96 H Creatinine 6.9 H Glucose 135 H POC Glucose 130 H Calcium Phosphorus Magnesium Total Bilirubin AST Total Creatine Kinase CK-MB (CK-2) Total Protein Albumin Urine Creatinine 86.5 H Urine Chloride 15.2 L 03/30/17 03/30/17 03/30/17 00:11 01:00 05:42 WBC RBC Hgb Hct MCV MCH MCHC RDW Plt Count Lymph % (Auto) [place] % (Auto) [place] # Seg Neutrophils % Seg Neuts % (Manual) Lymphocytes % (Manual) Monocytes % (Manual) Seg Neutrophils # Seg Neutrophils # Man Lymphocytes # (Manual) Monocytes # (Manual) Eosinophils # (Manual) PT INR APTT Heparin Anti-Xa Level 0.80 H POC ABG pH POC ABG pCO2 POC ABG pO2 Sodium Potassium Chloride Carbon Dioxide BUN Creatinine Glucose POC Glucose 146 H 162 H Calcium Phosphorus Magnesium Total Bilirubin AST Total Creatine Kinase CK-MB (CK-2) Total Protein Albumin Urine Creatinine Urine Chloride 03/30/17 03/30/17 03/30/17 07:32 07:38 08:20 WBC 27.7 H RBC 3.14 L Hgb 9.7 L Hct 30.1 L MCV 96 H MCH MCHC RDW 16.2 H Plt Count Lymph % (Auto) [place] % (Auto) [place] # Seg Neutrophils % Seg Neuts % (Manual) 93.0 H Lymphocytes % (Manual) 1.0 L Monocytes % (Manual) Seg Neutrophils # Seg Neutrophils # Man 25.8 H Lymphocytes # (Manual) 0.3 L Monocytes # (Manual) 1.0 H Eosinophils # (Manual) PT INR APTT Heparin Anti-Xa Level 0.99 H POC ABG pH POC ABG pCO2 POC ABG pO2 Sodium 127 L Potassium 5.9 H Chloride 88.5 L Carbon Dioxide 16 L BUN 101 H Creatinine 7.5 H Glucose 147 H POC Glucose Calcium 8.0 L Phosphorus Magnesium Total Bilirubin AST Total Creatine Kinase CK-MB (CK-2) Total Protein Albumin Urine Creatinine Urine Chloride 03/30/17 03/30/17 03/30/17 12:19 16:07 16:58 WBC RBC Hgb Hct MCV MCH MCHC RDW Plt Count Lymph % (Auto) [place] % (Auto) [place] # Seg Neutrophils % Seg Neuts % (Manual) Lymphocytes % (Manual) Monocytes % (Manual) Seg Neutrophils # Seg Neutrophils # Man Lymphocytes # (Manual) Monocytes # (Manual) Eosinophils # (Manual) PT INR APTT Heparin Anti-Xa Level 1.07 H POC ABG pH POC ABG pCO2 POC ABG pO2 62 L Sodium Potassium Chloride Carbon Dioxide BUN Creatinine Glucose POC Glucose 179 H Calcium Phosphorus Magnesium Total Bilirubin AST Total Creatine Kinase CK-MB (CK-2) Total Protein Albumin Urine Creatinine Urine Chloride 03/30/17 03/30/17 03/31/17 17:48 Unknown 00:25 WBC RBC Hgb Hct MCV MCH MCHC RDW Plt Count Lymph % (Auto) [place] % (Auto) [place] # Seg Neutrophils % Seg Neuts % (Manual) Lymphocytes % (Manual) Monocytes % (Manual) Seg Neutrophils # Seg Neutrophils # Man Lymphocytes # (Manual) Monocytes # (Manual) Eosinophils # (Manual) PT INR APTT Heparin Anti-Xa Level POC ABG pH POC ABG pCO2 POC ABG pO2 Sodium 124 L Potassium 5.2 H Chloride 86.6 L Carbon Dioxide 16 L BUN 93 H Creatinine 6.3 H Glucose 153 H POC Glucose 162 H 139 H Calcium 7.4 L D Phosphorus Magnesium Total Bilirubin AST Total Creatine Kinase CK-MB (CK-2) Total Protein Albumin Urine Creatinine Urine Chloride 03/31/17 03/31/17 03/31/17 04:18 05:21 11:39 WBC RBC Hgb Hct MCV MCH MCHC RDW Plt Count Lymph % (Auto) [place] % (Auto) [place] # Seg Neutrophils % Seg Neuts % (Manual) Lymphocytes % (Manual) Monocytes % (Manual) Seg Neutrophils # Seg Neutrophils # Man Lymphocytes # (Manual) Monocytes # (Manual) Eosinophils # (Manual) PT INR APTT Heparin Anti-Xa Level POC ABG pH 7.209 L POC ABG pCO2 55.7 H POC ABG pO2 106 H Sodium Potassium Chloride Carbon Dioxide BUN Creatinine Glucose POC Glucose 133 H 133 H Calcium Phosphorus Magnesium Total Bilirubin AST Total Creatine Kinase CK-MB (CK-2) Total Protein Albumin Urine Creatinine Urine Chloride 03/31/17 03/31/17 03/31/17 16:53 Unknown Unknown WBC 25.9 H RBC 3.04 L Hgb 9.6 L Hct 29.9 L MCV 98 H MCH MCHC RDW 16.1 H Plt Count Lymph % (Auto) [place] % (Auto) [place] # Seg Neutrophils % Seg Neuts % (Manual) Lymphocytes % (Manual) Monocytes % (Manual) Seg Neutrophils # Seg Neutrophils # Man Lymphocytes # (Manual) Monocytes # (Manual) Eosinophils # (Manual) PT INR APTT Heparin Anti-Xa Level POC ABG pH POC ABG pCO2 POC ABG pO2 Sodium 133 L Potassium Chloride 91.6 L Carbon Dioxide 20 L BUN 67 H Creatinine 5.3 H Glucose 129 H POC Glucose 146 H Calcium 7.4 L Phosphorus Magnesium Total Bilirubin AST Total Creatine Kinase CK-MB (CK-2) Total Protein Albumin Urine Creatinine Urine Chloride 03/31/17 04/01/17 04/01/17 23:59 04:00 04:00 WBC 16.1 H RBC 3.02 L Hgb 9.6 L Hct 29.0 L MCV 96 H MCH MCHC RDW 16.0 H Plt Count Lymph % (Auto) [place] % (Auto) [place] # Seg Neutrophils % Seg Neuts % (Manual) Lymphocytes % (Manual) Monocytes % (Manual) Seg Neutrophils # Seg Neutrophils # Man Lymphocytes # (Manual) Monocytes # (Manual) Eosinophils # (Manual) PT INR APTT Heparin Anti-Xa Level POC ABG pH POC ABG pCO2 POC ABG pO2 Sodium Potassium 3.1 L D Chloride 96.0 L Carbon Dioxide BUN 45 H Creatinine 4.1 H Glucose POC Glucose 121 H Calcium 7.1 L Phosphorus Magnesium Total Bilirubin AST Total Creatine Kinase CK-MB (CK-2) Total Protein Albumin Urine Creatinine Urine Chloride 04/01/17 04/02/17 04/02/17 05:20 00:15 04:00 WBC 13.5 H RBC 3.05 L Hgb 9.7 L Hct 29.2 L MCV 96 H MCH MCHC RDW 15.9 H Plt Count Lymph % (Auto) [place] % (Auto) [place] # Seg Neutrophils % Seg Neuts % (Manual) Lymphocytes % (Manual) Monocytes % (Manual) Seg Neutrophils # Seg Neutrophils # Man Lymphocytes # (Manual) Monocytes # (Manual) Eosinophils # (Manual) PT INR APTT Heparin Anti-Xa Level POC ABG pH POC ABG pCO2 POC ABG pO2 132 H Sodium Potassium Chloride Carbon Dioxide BUN Creatinine Glucose POC Glucose 110 H Calcium Phosphorus Magnesium Total Bilirubin AST Total Creatine Kinase CK-MB (CK-2) Total Protein Albumin Urine Creatinine Urine Chloride 04/02/17 04/02/17 04/02/17 04:22 04:35 05:25 WBC RBC Hgb Hct MCV MCH MCHC RDW Plt Count Lymph % (Auto) [place] % (Auto) [place] # Seg Neutrophils % Seg Neuts % (Manual) Lymphocytes % (Manual) Monocytes % (Manual) Seg Neutrophils # Seg Neutrophils # Man Lymphocytes # (Manual) Monocytes # (Manual) Eosinophils # (Manual) PT INR APTT Heparin Anti-Xa Level POC ABG pH POC ABG pCO2 POC ABG pO2 106 H Sodium Potassium 2.8 L* Chloride Carbon Dioxide BUN 30 H Creatinine 3.5 H Glucose 113 H POC Glucose 110 H Calcium 7.6 L Phosphorus Magnesium Total Bilirubin AST Total Creatine Kinase CK-MB (CK-2) Total Protein Albumin Urine Creatinine Urine Chloride 04/02/17 04/02/17 04/02/17 06:49 11:56 18:02 WBC RBC Hgb Hct MCV MCH MCHC RDW Plt Count Lymph % (Auto) [place] % (Auto) [place] # Seg Neutrophils % Seg Neuts % (Manual) Lymphocytes % (Manual) Monocytes % (Manual) Seg Neutrophils # Seg Neutrophils # Man Lymphocytes # (Manual) Monocytes # (Manual) Eosinophils # (Manual) PT INR APTT Heparin Anti-Xa Level 0.23 L POC ABG pH POC ABG pCO2 POC ABG pO2 Sodium Potassium Chloride Carbon Dioxide BUN Creatinine Glucose POC Glucose 118 H 128 H Calcium Phosphorus Magnesium Total Bilirubin AST Total Creatine Kinase CK-MB (CK-2) Total Protein Albumin Urine Creatinine Urine Chloride 04/03/17 04/03/17 04/03/17 00:15 04:41 05:54 WBC RBC Hgb Hct MCV MCH MCHC RDW Plt Count Lymph % (Auto) [place] % (Auto) [place] # Seg Neutrophils % Seg Neuts % (Manual) Lymphocytes % (Manual) Monocytes % (Manual) Seg Neutrophils # Seg Neutrophils # Man Lymphocytes # (Manual) Monocytes # (Manual) Eosinophils # (Manual) PT INR APTT Heparin Anti-Xa Level POC ABG pH 7.451 H POC ABG pCO2 POC ABG pO2 146 H Sodium Potassium Chloride Carbon Dioxide BUN Creatinine Glucose POC Glucose 202 H 202 H Calcium Phosphorus Magnesium Total Bilirubin AST Total Creatine Kinase CK-MB (CK-2) Total Protein Albumin Urine Creatinine Urine Chloride 04/03/17 04/03/17 04/03/17 06:22 06:22 09:54 WBC RBC 3.03 L Hgb 9.7 L Hct 28.7 L MCV 95 H MCH MCHC RDW 15.9 H Plt Count Lymph % (Auto) [place] % (Auto) [place] # Seg Neutrophils % Seg Neuts % (Manual) Lymphocytes % (Manual) Monocytes % (Manual) Seg Neutrophils # Seg Neutrophils # Man Lymphocytes # (Manual) Monocytes # (Manual) Eosinophils # (Manual) PT INR APTT Heparin Anti-Xa Level < 0.10 L POC ABG pH POC ABG pCO2 POC ABG pO2 Sodium Potassium Chloride Carbon Dioxide BUN 23 H Creatinine 3.1 H Glucose 175 H POC Glucose Calcium 8.0 L Phosphorus Magnesium Total Bilirubin AST Total Creatine Kinase CK-MB (CK-2) Total Protein Albumin Urine Creatinine Urine Chloride 04/03/17 04/03/17 04/03/17 11:40 11:45 16:25 WBC RBC Hgb Hct MCV MCH MCHC RDW Plt Count Lymph % (Auto) [place] % (Auto) [place] # Seg Neutrophils % Seg Neuts % (Manual) Lymphocytes % (Manual) Monocytes % (Manual) Seg Neutrophils # Seg Neutrophils # Man Lymphocytes # (Manual) Monocytes # (Manual) Eosinophils # (Manual) PT INR APTT Heparin Anti-Xa Level 0.27 L POC ABG pH POC ABG pCO2 POC ABG pO2 Sodium Potassium Chloride Carbon Dioxide BUN Creatinine Glucose POC Glucose 205 H 191 H Calcium Phosphorus Magnesium Total Bilirubin AST Total Creatine Kinase CK-MB (CK-2) Total Protein Albumin Urine Creatinine Urine Chloride 04/03/17 04/04/17 04/04/17 21:42 04:00 04:00 WBC 11.7 H RBC 3.20 L Hgb 10.0 L Hct 31.2 L MCV 96 H MCH MCHC RDW 16.1 H Plt Count Lymph % (Auto) [place] % (Auto) [place] # Seg Neutrophils % Seg Neuts % (Manual) 94.0 H Lymphocytes % (Manual) 0 L Monocytes % (Manual) Seg Neutrophils # Seg Neutrophils # Man 11.0 H Lymphocytes # (Manual) 0.0 L Monocytes # (Manual) Eosinophils # (Manual) PT INR APTT Heparin Anti-Xa Level POC ABG pH POC ABG pCO2 POC ABG pO2 Sodium 136 L Potassium Chloride 97.6 L Carbon Dioxide 21 L BUN 41 H Creatinine 4.0 H Glucose 184 H POC Glucose 147 H Calcium 8.1 L Phosphorus Magnesium Total Bilirubin AST Total Creatine Kinase CK-MB (CK-2) Total Protein Albumin Urine Creatinine Urine Chloride 04/04/17 04/04/17 04/04/17 05:12 06:17 12:32 WBC RBC Hgb Hct MCV MCH MCHC RDW Plt Count Lymph % (Auto) [place] % (Auto) [place] # Seg Neutrophils % Seg Neuts % (Manual) Lymphocytes % (Manual) Monocytes % (Manual) Seg Neutrophils # Seg Neutrophils # Man Lymphocytes # (Manual) Monocytes # (Manual) Eosinophils # (Manual) PT INR APTT Heparin Anti-Xa Level POC ABG pH POC ABG pCO2 34.3 L POC ABG pO2 Sodium Potassium Chloride Carbon Dioxide BUN Creatinine Glucose POC Glucose 188 H 173 H Calcium Phosphorus Magnesium Total Bilirubin AST Total Creatine Kinase CK-MB (CK-2) Total Protein Albumin Urine Creatinine Urine Chloride 04/04/17 04/04/17 04/05/17 18:19 19:00 00:08 WBC RBC Hgb Hct MCV MCH MCHC RDW Plt Count Lymph % (Auto) [place] % (Auto) [place] # Seg Neutrophils % Seg Neuts % (Manual) Lymphocytes % (Manual) Monocytes % (Manual) Seg Neutrophils # Seg Neutrophils # Man Lymphocytes # (Manual) Monocytes # (Manual) Eosinophils # (Manual) PT INR APTT Heparin Anti-Xa Level 0.98 H POC ABG pH POC ABG pCO2 POC ABG pO2 Sodium Potassium Chloride Carbon Dioxide BUN Creatinine Glucose POC Glucose 167 H 181 H Calcium Phosphorus Magnesium Total Bilirubin AST Total Creatine Kinase CK-MB (CK-2) Total Protein Albumin Urine Creatinine Urine Chloride 04/05/17 04/05/17 04/05/17 04:29 05:24 11:42 WBC RBC Hgb Hct MCV MCH MCHC RDW Plt Count Lymph % (Auto) [place] % (Auto) [place] # Seg Neutrophils % Seg Neuts % (Manual) Lymphocytes % (Manual) Monocytes % (Manual) Seg Neutrophils # Seg Neutrophils # Man Lymphocytes # (Manual) Monocytes # (Manual) Eosinophils # (Manual) PT INR APTT Heparin Anti-Xa Level POC ABG pH 7.453 H POC ABG pCO2 33.7 L POC ABG pO2 Sodium Potassium Chloride Carbon Dioxide BUN Creatinine Glucose POC Glucose 180 H 166 H Calcium Phosphorus Magnesium Total Bilirubin AST Total Creatine Kinase CK-MB (CK-2) Total Protein Albumin Urine Creatinine Urine Chloride 04/05/17 04/06/17 04/06/17 17:43 00:16 05:08 WBC RBC Hgb Hct MCV MCH MCHC RDW Plt Count Lymph % (Auto) [place] % (Auto) [place] # Seg Neutrophils % Seg Neuts % (Manual) Lymphocytes % (Manual) Monocytes % (Manual) Seg Neutrophils # Seg Neutrophils # Man Lymphocytes # (Manual) Monocytes # (Manual) Eosinophils # (Manual) PT INR APTT Heparin Anti-Xa Level POC ABG pH POC ABG pCO2 POC ABG pO2 Sodium Potassium Chloride Carbon Dioxide BUN Creatinine Glucose POC Glucose 165 H 172 H 166 H Calcium Phosphorus Magnesium Total Bilirubin AST Total Creatine Kinase CK-MB (CK-2) Total Protein Albumin Urine Creatinine Urine Chloride 04/06/17 04/06/17 04/06/17 06:30 06:30 12:15 WBC 12.8 H RBC 3.20 L Hgb 10.0 L Hct 30.1 L MCV MCH MCHC RDW 15.8 H Plt Count Lymph % (Auto) [place] % (Auto) [place] # Seg Neutrophils % Seg Neuts % (Manual) 97.0 H Lymphocytes % (Manual) 0 L Monocytes % (Manual) Seg Neutrophils # Seg Neutrophils # Man 12.4 H Lymphocytes # (Manual) 0.0 L Monocytes # (Manual) Eosinophils # (Manual) PT INR APTT Heparin Anti-Xa Level POC ABG pH POC ABG pCO2 POC ABG pO2 Sodium 131 L Potassium Chloride 92.5 L Carbon Dioxide 20 L BUN 74 H Creatinine 4.7 H Glucose 185 H POC Glucose 166 H Calcium 8.0 L Phosphorus Magnesium Total Bilirubin AST Total Creatine Kinase CK-MB (CK-2) Total Protein Albumin Urine Creatinine Urine Chloride 04/06/17 04/06/17 04/07/17 17:52 23:16 05:45 WBC RBC Hgb Hct MCV MCH MCHC RDW Plt Count Lymph % (Auto) [place] % (Auto) [place] # Seg Neutrophils % Seg Neuts % (Manual) Lymphocytes % (Manual) Monocytes % (Manual) Seg Neutrophils # Seg Neutrophils # Man Lymphocytes # (Manual) Monocytes # (Manual) Eosinophils # (Manual) PT INR APTT Heparin Anti-Xa Level POC ABG pH POC ABG pCO2 POC ABG pO2 Sodium Potassium Chloride Carbon Dioxide BUN Creatinine Glucose POC Glucose 174 H 173 H 154 H Calcium Phosphorus Magnesium Total Bilirubin AST Total Creatine Kinase CK-MB (CK-2) Total Protein Albumin Urine Creatinine Urine Chloride 04/07/17 04/07/17 04/07/17 06:00 06:00 09:21 WBC RBC 3.32 L Hgb 10.3 L Hct 31.3 L MCV MCH MCHC RDW 15.7 H Plt Count 125 L Lymph % (Auto) [place] % (Auto) [place] # Seg Neutrophils % Seg Neuts % (Manual) 90.0 H Lymphocytes % (Manual) 5.0 L Monocytes % (Manual) Seg Neutrophils # Seg Neutrophils # Man 9.7 H Lymphocytes # (Manual) 0.5 L Monocytes # (Manual) Eosinophils # (Manual) PT INR APTT Heparin Anti-Xa Level POC ABG pH 7.323 L POC ABG pCO2 POC ABG pO2 Sodium 131 L Potassium Chloride 91.9 L Carbon Dioxide 20 L BUN 62 H Creatinine 3.8 H Glucose 178 H POC Glucose Calcium Phosphorus Magnesium Total Bilirubin AST Total Creatine Kinase CK-MB (CK-2) Total Protein Albumin Urine Creatinine Urine Chloride 04/07/17 04/07/17 04/07/17 12:23 17:20 23:43 WBC RBC Hgb Hct MCV MCH MCHC RDW Plt Count Lymph % (Auto) [place] % (Auto) [place] # Seg Neutrophils % Seg Neuts % (Manual) Lymphocytes % (Manual) Monocytes % (Manual) Seg Neutrophils # Seg Neutrophils # Man Lymphocytes # (Manual) Monocytes # (Manual) Eosinophils # (Manual) PT INR APTT Heparin Anti-Xa Level POC ABG pH POC ABG pCO2 POC ABG pO2 Sodium Potassium Chloride Carbon Dioxide BUN Creatinine Glucose POC Glucose 160 H 169 H 176 H Calcium Phosphorus Magnesium Total Bilirubin AST Total Creatine Kinase CK-MB (CK-2) Total Protein Albumin Urine Creatinine Urine Chloride 04/08/17 04/08/17 04/08/17 06:08 08:18 08:18 WBC RBC 3.50 L Hgb 11.0 L Hct 33.7 L MCV 96 H MCH MCHC RDW 15.6 H Plt Count 130 L Lymph % (Auto) [place] % (Auto) [place] # Seg Neutrophils % Seg Neuts % (Manual) 88.0 H Lymphocytes % (Manual) 6.0 L Monocytes % (Manual) Seg Neutrophils # Seg Neutrophils # Man 9.2 H Lymphocytes # (Manual) 0.6 L Monocytes # (Manual) Eosinophils # (Manual) PT INR APTT Heparin Anti-Xa Level POC ABG pH POC ABG pCO2 POC ABG pO2 Sodium 127 L Potassium 5.7 H D Chloride 88.5 L Carbon Dioxide 19 L BUN 92 H Creatinine 5.0 H Glucose 176 H POC Glucose 191 H Calcium 8.1 L Phosphorus Magnesium Total Bilirubin AST Total Creatine Kinase CK-MB (CK-2) Total Protein Albumin Urine Creatinine Urine Chloride 04/08/17 04/08/17 08:18 11:52 WBC RBC Hgb Hct MCV MCH MCHC RDW Plt Count Lymph % (Auto) [place] % (Auto) [place] # Seg Neutrophils % Seg Neuts % (Manual) Lymphocytes % (Manual) Monocytes % (Manual) Seg Neutrophils # Seg Neutrophils # Man Lymphocytes # (Manual) Monocytes # (Manual) Eosinophils # (Manual) PT INR APTT Heparin Anti-Xa Level 1.02 H POC ABG pH POC ABG pCO2 POC ABG pO2 Sodium Potassium Chloride Carbon Dioxide BUN Creatinine Glucose POC Glucose 176 H Calcium Phosphorus Magnesium Total Bilirubin AST Total Creatine Kinase CK-MB (CK-2) Total Protein Albumin Urine Creatinine Urine Chloride
[2017-04-08] MEDS ORDERED: KIONEX PO ONE (13:43)
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
[2017-04-08] MEDS ORDERED: NACL 0.9 (PRIMING MACHINE ONLY DIALYSIS) MC ONE (16:09)
[2017-04-08] MEDS: HEPARIN IV PRN (19:57)
[2017-04-08] MEDS: HEPARIN/ 0.45% NACL-25,000 UNIT/500 ML 25,000 UNIT/500 ML BAG IV SCH (22:33)
[2017-04-09] MEDS: CARDIZEM PO SCH ×5 (01:25→23:55)
[2017-04-09] MEDS: NOVOLOG SUB-Q SCH ×4 (01:29→12:56)
[2017-04-09] MEDS: DUONEB *Not for PRN Use IH SCH ×6 (03:30→23:58)
[2017-04-09 05:28] LABS: BUN/Creatinine Ratio 18.18; Calcium 7.5 mg/dL (8.4-10.2); Chloride 89.8 mmol/L (98-107); Potassium 4.5 mmol/L (3.6-5.0)
[2017-04-09 05:31] LABS: Hematocrit 30.6 % (35.5-45.6); Hemoglobin 10.1 gm/dl (11.8-15.2); Mean Corpuscular HGB Conc 33 % (32-34); Mean Corpuscular Hemoglobin 32 pg (28-32); Mean Corpuscular Volume 96 fl (84-94); Red Blood Count 3.21 M/mm3 (3.65-5.03); Red Cell Distribution Width 15.3 % (13.2-15.2); White Blood Count 7.7 K/mm3 (4.5-11.0)
[2017-04-09 05:41] LABS: Platelet Count 127 K/mm3 (140-440)
--- NOTE | 2017-04-09 07:16 | Progress Note ---
Assessment and Plan 51 y/o male, noncompliant, with systolic heart failure, admitted with afib with RVR, and possible ETOH abuse, now with recurrent afib with RVR and likely aspiration pneumonia on the right resulting in acute respiratory failure, now with recurrent respiratory failure 1. Wean FiO2 as tolerated. To my knowledge, patient does not have home O2 2. Will start to wean bipap over the next 2-3 days 3. Rate control 4. HD per renal Subjective Date of service: 04/09/17 Principal diagnosis: afib, EtOH abuse, morbid obesity, respiratory failure status post extubatio Interval history: No acute events. Successful transfer out of ICU on yesterday. Tolerating bipap at night and nasal cannlua during the day. Objective Vital Signs - 12hr 04/08/17 04/08/17 04/08/17 19:15 19:30 19:45 Temperature Pulse Rate 83 79 78 Pulse Rate [ Anterior Bilateral Throughout] Pulse Rate [ Apical] Pulse Rate [ From Monitor] Pulse Rate [ Left Dorsalis Pedis] Pulse Rate [ Left Radial] Pulse Rate [ Right Dorsalis Pedis] Pulse Rate [ Right Radial] Respiratory Rate Respiratory Rate [Anterior Bilateral Throughout] Blood Pressure 159/80 152/79 149/88 Blood Pressure [Left Arm] Blood Pressure [Right Arm] O2 Sat by Pulse Oximetry 04/08/17 04/08/17 04/08/17 20:00 20:15 22:00 Temperature 98.0 F Pulse Rate 83 82 86 Pulse Rate [ Anterior Bilateral Throughout] Pulse Rate [ Apical] Pulse Rate [ From Monitor] Pulse Rate [ Left Dorsalis Pedis] Pulse Rate [ Left Radial] Pulse Rate [ Right Dorsalis Pedis] Pulse Rate [ Right Radial] Respiratory 16 18 Rate Respiratory Rate [Anterior Bilateral Throughout] Blood Pressure 169/85 148/84 Blood Pressure [Left Arm] Blood Pressure [Right Arm] O2 Sat by Pulse 99 Oximetry 04/08/17 04/08/17 04/08/17 22:45 22:46 23:30 Temperature Pulse Rate 69 69 Pulse Rate [ 71 Anterior Bilateral Throughout] Pulse Rate [ Apical] Pulse Rate [ From Monitor] Pulse Rate [ Left Dorsalis Pedis] Pulse Rate [ Left Radial] Pulse Rate [ Right Dorsalis Pedis] Pulse Rate [ Right Radial] Respiratory Rate Respiratory 18 Rate [Anterior Bilateral Throughout] Blood Pressure 153/84 153/84 Blood Pressure [Left Arm] Blood Pressure [Right Arm] O2 Sat by Pulse Oximetry 04/08/17 04/09/17 04/09/17 23:45 00:00 03:30 Temperature Pulse Rate Pulse Rate [ 73 86 Anterior Bilateral Throughout] Pulse Rate [ Apical] Pulse Rate [ From Monitor] Pulse Rate [ Left Dorsalis Pedis] Pulse Rate [ Left Radial] Pulse Rate [ Right Dorsalis Pedis] Pulse Rate [ Right Radial] Respiratory Rate Respiratory 18 18 Rate [Anterior Bilateral Throughout] Blood Pressure Blood Pressure [Left Arm] Blood Pressure [Right Arm] O2 Sat by Pulse 95 Oximetry 04/09/17 04/09/17 04/09/17 03:39 03:47 04:10 Temperature 98.0 F Pulse Rate 86 Pulse Rate [ 88 Anterior Bilateral Throughout] Pulse Rate [ 0 L Apical] Pulse Rate [ 0 L From Monitor] Pulse Rate [ 0 L Left Dorsalis Pedis] Pulse Rate [ 0 L Left Radial] Pulse Rate [ 0 L Right Dorsalis Pedis] Pulse Rate [ 82 Right Radial] Respiratory 18 22 Rate Respiratory 18 Rate [Anterior Bilateral Throughout] Blood Pressure Blood Pressure 0/0 [Left Arm] Blood Pressure 131/85 [Right Arm] O2 Sat by Pulse 98 97 Oximetry Constitutional: no acute distress, alert Eyes: non-icteric ENT: oropharynx moist Neck: supple, no JVD Effort: normal, mildly labored Ascultation: Right: rales (mostly on the right), Bilateral: diminished breath sounds, wheezes, rhonchi (sporadic) Percussion: Bilateral: not dull Cardiovascular: irregular rhythm Gastrointestinal: normoactive bowel sounds, soft, non-tender, non-distended, other (obese) Integumentary: normal Extremities: no cyanosis, no edema, pink and warm Neurologic: non-focal exam, pupils equal and round, other Psychiatric: mood appropriate, affect normal, anxious CBC and BMP: 04/09/17 04:45 04/09/17 04:45 ABG, PT/INR, D-dimer: ABG POC ABG pH 7.323 (7.35-7.45) L 04/07/17 09:21 POC ABG pCO2 41.7 (35-45) 04/07/17 09:21 POC ABG pO2 99 (80-105) 04/07/17 09:21 POC ABG HCO3 21.7 04/07/17 09:21 POC ABG Total CO2 23 04/07/17 09:21 POC ABG O2 Sat 97 04/07/17 09:21 PT/INR, D-dimer PT 16.2 Sec. (12.2-14.9) H 03/22/17 08:40 INR 1.31 (0.87-1.13) H 03/22/17 08:40 Abnormal lab findings: Abnormal Labs 02/27/17 02/27/17 02/27/17 03:51 05:41 08:49 WBC RBC Hgb Hct MCV MCH MCHC RDW Plt Count Lymph % (Auto) [place] % (Auto) Lymph # [place] # Seg Neutrophils % Seg Neuts % (Manual) Lymphocytes % (Manual) Monocytes % (Manual) Seg Neutrophils # Seg Neutrophils # Man Lymphocytes # (Manual) Monocytes # (Manual) Eosinophils # (Manual) PT INR APTT Heparin Anti-Xa Level POC ABG pH POC ABG pCO2 POC ABG pO2 Sodium Potassium Chloride Carbon Dioxide BUN Creatinine Glucose POC Glucose 131 H 139 H Calcium Phosphorus Magnesium Total Bilirubin AST Total Creatine Kinase 171 H CK-MB (CK-2) 5.8 H Total Protein Albumin Urine Creatinine Urine Chloride 02/27/17 02/27/17 02/27/17 13:05 13:08 16:07 WBC RBC Hgb Hct MCV MCH MCHC RDW Plt Count Lymph % (Auto) [place] % (Auto) Lymph # [place] # Seg Neutrophils % Seg Neuts % (Manual) Lymphocytes % (Manual) Monocytes % (Manual) Seg Neutrophils # Seg Neutrophils # Man Lymphocytes # (Manual) Monocytes # (Manual) Eosinophils # (Manual) PT INR APTT Heparin Anti-Xa Level POC ABG pH POC ABG pCO2 POC ABG pO2 Sodium Potassium Chloride Carbon Dioxide BUN Creatinine Glucose POC Glucose 146 H 138 H Calcium Phosphorus Magnesium Total Bilirubin AST Total Creatine Kinase CK-MB (CK-2) 4.7 H Total Protein Albumin Urine Creatinine Urine Chloride 02/27/17 02/28/17 02/28/17 21:40 03:32 03:32 WBC RBC Hgb 15.9 H Hct 47.6 H MCV 100 H MCH 34 H MCHC RDW 15.4 H Plt Count Lymph % (Auto) [place] % (Auto) Lymph # [place] # Seg Neutrophils % Seg Neuts % (Manual) Lymphocytes % (Manual) Monocytes % (Manual) Seg Neutrophils # Seg Neutrophils # Man Lymphocytes # (Manual) Monocytes # (Manual) Eosinophils # (Manual) PT INR APTT Heparin Anti-Xa Level POC ABG pH POC ABG pCO2 POC ABG pO2 Sodium Potassium Chloride 95.0 L Carbon Dioxide BUN 8 L Creatinine 0.6 L Glucose 126 H POC Glucose 140 H Calcium Phosphorus Magnesium 1.60 L Total Bilirubin AST Total Creatine Kinase CK-MB (CK-2) Total Protein Albumin Urine Creatinine Urine Chloride 02/28/17 02/28/17 02/28/17 07:55 11:57 15:40 WBC RBC Hgb Hct MCV MCH MCHC RDW Plt Count Lymph % (Auto) [place] % (Auto) Lymph # [place] # Seg Neutrophils % Seg Neuts % (Manual) Lymphocytes % (Manual) Monocytes % (Manual) Seg Neutrophils # Seg Neutrophils # Man Lymphocytes # (Manual) Monocytes # (Manual) Eosinophils # (Manual) PT INR APTT Heparin Anti-Xa Level POC ABG pH POC ABG pCO2 POC ABG pO2 Sodium Potassium Chloride Carbon Dioxide BUN Creatinine Glucose POC Glucose 134 H 174 H 158 H Calcium Phosphorus Magnesium Total Bilirubin AST Total Creatine Kinase CK-MB (CK-2) Total Protein Albumin Urine Creatinine Urine Chloride 02/28/17 03/01/17 03/01/17 21:51 07:42 10:41 WBC RBC Hgb Hct MCV MCH MCHC RDW Plt Count Lymph % (Auto) [place] % (Auto) Lymph # [place] # Seg Neutrophils % Seg Neuts % (Manual) Lymphocytes % (Manual) Monocytes % (Manual) Seg Neutrophils # Seg Neutrophils # Man Lymphocytes # (Manual) Monocytes # (Manual) Eosinophils # (Manual) PT INR APTT Heparin Anti-Xa Level POC ABG pH POC ABG pCO2 POC ABG pO2 Sodium Potassium Chloride Carbon Dioxide BUN Creatinine Glucose POC Glucose 127 H 146 H 176 H Calcium Phosphorus Magnesium Total Bilirubin AST Total Creatine Kinase CK-MB (CK-2) Total Protein Albumin Urine Creatinine Urine Chloride 03/01/17 03/01/17 03/02/17 15:37 23:35 08:11 WBC RBC Hgb Hct MCV MCH MCHC RDW Plt Count Lymph % (Auto) [place] % (Auto) Lymph # [place] # Seg Neutrophils % Seg Neuts % (Manual) Lymphocytes % (Manual) Monocytes % (Manual) Seg Neutrophils # Seg Neutrophils # Man Lymphocytes # (Manual) Monocytes # (Manual) Eosinophils # (Manual) PT INR APTT Heparin Anti-Xa Level POC ABG pH POC ABG pCO2 POC ABG pO2 Sodium Potassium Chloride Carbon Dioxide BUN Creatinine Glucose POC Glucose 158 H 139 H 127 H Calcium Phosphorus Magnesium Total Bilirubin AST Total Creatine Kinase CK-MB (CK-2) Total Protein Albumin Urine Creatinine Urine Chloride 03/02/17 03/02/17 03/02/17 09:12 12:03 12:37 WBC 17.9 H RBC Hgb 16.3 H Hct 49.3 H MCV 101 H MCH 33 H MCHC RDW Plt Count Lymph % (Auto) 10.6 L [place] % (Auto) 13.4 H Lymph # [place] # 2.4 H Seg Neutrophils % 75.2 H Seg Neuts % (Manual) Lymphocytes % (Manual) Monocytes % (Manual) Seg Neutrophils # 13.5 H Seg Neutrophils # Man Lymphocytes # (Manual) Monocytes # (Manual) Eosinophils # (Manual) PT INR APTT Heparin Anti-Xa Level POC ABG pH POC ABG pCO2 POC ABG pO2 Sodium 135 L Potassium Chloride 90.3 L Carbon Dioxide 32 H BUN Creatinine 0.6 L Glucose 124 H POC Glucose 145 H Calcium Phosphorus Magnesium Total Bilirubin AST Total Creatine Kinase CK-MB (CK-2) Total Protein Albumin Urine Creatinine Urine Chloride 03/02/17 03/02/17 03/03/17 16:09 22:41 03:59 WBC 14.7 H RBC Hgb Hct MCV 100 H MCH 33 H MCHC RDW Plt Count Lymph % (Auto) 10.9 L [place] % (Auto) 14.8 H Lymph # [place] # 2.2 H Seg Neutrophils % 73.6 H Seg Neuts % (Manual) Lymphocytes % (Manual) Monocytes % (Manual) Seg Neutrophils # 10.8 H Seg Neutrophils # Man Lymphocytes # (Manual) Monocytes # (Manual) Eosinophils # (Manual) PT INR APTT Heparin Anti-Xa Level POC ABG pH POC ABG pCO2 POC ABG pO2 Sodium Potassium Chloride Carbon Dioxide BUN Creatinine Glucose POC Glucose 141 H 127 H Calcium Phosphorus Magnesium Total Bilirubin AST Total Creatine Kinase CK-MB (CK-2) Total Protein Albumin Urine Creatinine Urine Chloride 03/03/17 03/03/17 03/03/17 04:07 09:19 11:33 WBC RBC Hgb Hct MCV MCH MCHC RDW Plt Count Lymph % (Auto) [place] % (Auto) Lymph # [place] # Seg Neutrophils % Seg Neuts % (Manual) Lymphocytes % (Manual) Monocytes % (Manual) Seg Neutrophils # Seg Neutrophils # Man Lymphocytes # (Manual) Monocytes # (Manual) Eosinophils # (Manual) PT INR APTT Heparin Anti-Xa Level POC ABG pH POC ABG pCO2 POC ABG pO2 Sodium Potassium 3.1 L D Chloride 91.1 L Carbon Dioxide BUN Creatinine 0.7 L Glucose 136 H POC Glucose 123 H 153 H Calcium Phosphorus Magnesium Total Bilirubin AST Total Creatine Kinase CK-MB (CK-2) Total Protein Albumin Urine Creatinine Urine Chloride 03/03/17 03/04/17 03/04/17 15:46 05:58 06:04 WBC 11.4 H RBC Hgb Hct 46.0 H MCV 101 H MCH 33 H MCHC RDW Plt Count Lymph % (Auto) [place] % (Auto) Lymph # [place] # Seg Neutrophils % Seg Neuts % (Manual) 71.0 H Lymphocytes % (Manual) 13.0 L Monocytes % (Manual) 13.0 H Seg Neutrophils # Seg Neutrophils # Man 8.1 H Lymphocytes # (Manual) Monocytes # (Manual) 1.5 H Eosinophils # (Manual) PT INR APTT Heparin Anti-Xa Level POC ABG pH POC ABG pCO2 POC ABG pO2 Sodium Potassium 3.3 L Chloride 92.2 L Carbon Dioxide 33 H BUN Creatinine 0.6 L Glucose 133 H POC Glucose 131 H Calcium Phosphorus Magnesium Total Bilirubin AST Total Creatine Kinase CK-MB (CK-2) Total Protein Albumin Urine Creatinine Urine Chloride 03/04/17 03/04/17 03/04/17 07:54 11:24 16:00 WBC RBC Hgb Hct MCV MCH MCHC RDW Plt Count Lymph % (Auto) [place] % (Auto) Lymph # [place] # Seg Neutrophils % Seg Neuts % (Manual) Lymphocytes % (Manual) Monocytes % (Manual) Seg Neutrophils # Seg Neutrophils # Man Lymphocytes # (Manual) Monocytes # (Manual) Eosinophils # (Manual) PT INR APTT Heparin Anti-Xa Level POC ABG pH POC ABG pCO2 POC ABG pO2 Sodium Potassium Chloride Carbon Dioxide BUN Creatinine Glucose POC Glucose 131 H 134 H 116 H Calcium Phosphorus Magnesium Total Bilirubin AST Total Creatine Kinase CK-MB (CK-2) Total Protein Albumin Urine Creatinine Urine Chloride 03/05/17 03/05/17 03/05/17 00:39 07:03 07:03 WBC 11.4 H RBC Hgb 15.4 H Hct 46.3 H MCV 100 H MCH 33 H MCHC RDW Plt Count Lymph % (Auto) [place] % (Auto) Lymph # [place] # Seg Neutrophils % Seg Neuts % (Manual) Lymphocytes % (Manual) Monocytes % (Manual) 20.0 H Seg Neutrophils # Seg Neutrophils # Man Lymphocytes # (Manual) Monocytes # (Manual) 2.3 H Eosinophils # (Manual) PT INR APTT Heparin Anti-Xa Level POC ABG pH POC ABG pCO2 POC ABG pO2 Sodium Potassium 3.3 L Chloride 95.2 L Carbon Dioxide 31 H BUN Creatinine 0.6 L Glucose 137 H POC Glucose 116 H Calcium Phosphorus Magnesium Total Bilirubin AST Total Creatine Kinase CK-MB (CK-2) Total Protein Albumin Urine Creatinine Urine Chloride 03/05/17 03/05/17 03/05/17 08:05 12:15 16:07 WBC RBC Hgb Hct MCV MCH MCHC RDW Plt Count Lymph % (Auto) [place] % (Auto) Lymph # [place] # Seg Neutrophils % Seg Neuts % (Manual) Lymphocytes % (Manual) Monocytes % (Manual) Seg Neutrophils # Seg Neutrophils # Man Lymphocytes # (Manual) Monocytes # (Manual) Eosinophils # (Manual) PT INR APTT Heparin Anti-Xa Level POC ABG pH POC ABG pCO2 POC ABG pO2 Sodium Potassium Chloride Carbon Dioxide BUN Creatinine Glucose POC Glucose 134 H 150 H 113 H Calcium Phosphorus Magnesium Total Bilirubin AST Total Creatine Kinase CK-MB (CK-2) Total Protein Albumin Urine Creatinine Urine Chloride 03/06/17 03/06/17 03/06/17 04:45 04:50 11:50 WBC 11.8 H RBC Hgb 15.7 H Hct 47.1 H MCV 98 H MCH 33 H MCHC RDW Plt Count Lymph % (Auto) [place] % (Auto) Lymph # [place] # Seg Neutrophils % Seg Neuts % (Manual) Lymphocytes % (Manual) 13.0 L Monocytes % (Manual) 17.0 H Seg Neutrophils # Seg Neutrophils # Man Lymphocytes # (Manual) Monocytes # (Manual) 2.0 H Eosinophils # (Manual) PT INR APTT Heparin Anti-Xa Level POC ABG pH POC ABG pCO2 POC ABG pO2 Sodium Potassium 3.2 L Chloride 94.9 L Carbon Dioxide 31 H BUN Creatinine 0.6 L Glucose 125 H POC Glucose 124 H Calcium Phosphorus 4.60 H Magnesium Total Bilirubin AST Total Creatine Kinase CK-MB (CK-2) Total Protein Albumin Urine Creatinine Urine Chloride 03/06/17 03/06/17 03/07/17 15:43 22:07 04:30 WBC RBC Hgb Hct MCV MCH MCHC RDW Plt Count Lymph % (Auto) [place] % (Auto) Lymph # [place] # Seg Neutrophils % Seg Neuts % (Manual) Lymphocytes % (Manual) Monocytes % (Manual) Seg Neutrophils # Seg Neutrophils # Man Lymphocytes # (Manual) Monocytes # (Manual) Eosinophils # (Manual) PT INR APTT Heparin Anti-Xa Level POC ABG pH POC ABG pCO2 POC ABG pO2 Sodium Potassium 3.4 L Chloride 95.1 L Carbon Dioxide BUN Creatinine 0.6 L Glucose 129 H POC Glucose 121 H 109 H Calcium Phosphorus Magnesium Total Bilirubin AST Total Creatine Kinase CK-MB (CK-2) Total Protein Albumin Urine Creatinine Urine Chloride 03/07/17 03/07/17 03/07/17 04:37 12:02 15:03 WBC 11.3 H RBC Hgb Hct MCV 99 H MCH 34 H MCHC RDW Plt Count Lymph % (Auto) [place] % (Auto) 14.6 H Lymph # [place] # 1.6 H Seg Neutrophils % Seg Neuts % (Manual) Lymphocytes % (Manual) Monocytes % (Manual) Seg Neutrophils # Seg Neutrophils # Man Lymphocytes # (Manual) Monocytes # (Manual) Eosinophils # (Manual) PT INR APTT Heparin Anti-Xa Level POC ABG pH POC ABG pCO2 POC ABG pO2 Sodium Potassium Chloride Carbon Dioxide BUN Creatinine Glucose POC Glucose 126 H 108 H Calcium Phosphorus Magnesium Total Bilirubin AST Total Creatine Kinase CK-MB (CK-2) Total Protein Albumin Urine Creatinine Urine Chloride 03/08/17 03/08/17 03/08/17 04:58 04:58 08:22 WBC RBC Hgb 16.4 H Hct 49.3 H MCV 99 H MCH 33 H MCHC RDW Plt Count Lymph % (Auto) [place] % (Auto) 12.1 H Lymph # [place] # 1.2 H Seg Neutrophils % 71.4 H Seg Neuts % (Manual) Lymphocytes % (Manual) Monocytes % (Manual) Seg Neutrophils # Seg Neutrophils # Man Lymphocytes # (Manual) Monocytes # (Manual) Eosinophils # (Manual) PT INR APTT Heparin Anti-Xa Level POC ABG pH POC ABG pCO2 POC ABG pO2 Sodium 136 L Potassium Chloride 93.7 L Carbon Dioxide BUN Creatinine 0.5 L Glucose 127 H POC Glucose 106 H Calcium Phosphorus Magnesium Total Bilirubin AST 50 H Total Creatine Kinase CK-MB (CK-2) Total Protein Albumin 2.7 L Urine Creatinine Urine Chloride 03/08/17 03/08/17 03/09/17 12:14 17:50 05:26 WBC 11.8 H RBC Hgb 16.3 H Hct 49.1 H MCV 98 H MCH 33 H MCHC RDW Plt Count Lymph % (Auto) [place] % (Auto) 10.8 H Lymph # [place] # 1.3 H Seg Neutrophils % 71.8 H Seg Neuts % (Manual) Lymphocytes % (Manual) Monocytes % (Manual) Seg Neutrophils # 8.4 H Seg Neutrophils # Man Lymphocytes # (Manual) Monocytes # (Manual) Eosinophils # (Manual) PT INR APTT Heparin Anti-Xa Level POC ABG pH POC ABG pCO2 POC ABG pO2 Sodium Potassium Chloride Carbon Dioxide BUN Creatinine Glucose POC Glucose 115 H 117 H Calcium Phosphorus Magnesium Total Bilirubin AST Total Creatine Kinase CK-MB (CK-2) Total Protein Albumin Urine Creatinine Urine Chloride 03/09/17 03/09/17 03/09/17 05:26 12:39 16:19 WBC RBC Hgb Hct MCV MCH MCHC RDW Plt Count Lymph % (Auto) [place] % (Auto) Lymph # [place] # Seg Neutrophils % Seg Neuts % (Manual) Lymphocytes % (Manual) Monocytes % (Manual) Seg Neutrophils # Seg Neutrophils # Man Lymphocytes # (Manual) Monocytes # (Manual) Eosinophils # (Manual) PT INR APTT Heparin Anti-Xa Level POC ABG pH POC ABG pCO2 POC ABG pO2 Sodium Potassium Chloride 94.7 L Carbon Dioxide BUN Creatinine 0.7 L Glucose 115 H POC Glucose 111 H 116 H Calcium Phosphorus Magnesium Total Bilirubin AST Total Creatine Kinase CK-MB (CK-2) Total Protein Albumin Urine Creatinine Urine Chloride 03/09/17 03/10/17 03/10/17 22:48 08:27 11:46 WBC RBC Hgb Hct MCV MCH MCHC RDW Plt Count Lymph % (Auto) [place] % (Auto) Lymph # [place] # Seg Neutrophils % Seg Neuts % (Manual) Lymphocytes % (Manual) Monocytes % (Manual) Seg Neutrophils # Seg Neutrophils # Man Lymphocytes # (Manual) Monocytes # (Manual) Eosinophils # (Manual) PT INR APTT Heparin Anti-Xa Level POC ABG pH POC ABG pCO2 POC ABG pO2 Sodium Potassium Chloride Carbon Dioxide BUN Creatinine Glucose POC Glucose 106 H 107 H 116 H Calcium Phosphorus Magnesium Total Bilirubin AST Total Creatine Kinase CK-MB (CK-2) Total Protein Albumin Urine Creatinine Urine Chloride 03/10/17 03/10/17 03/11/17 17:01 21:46 08:10 WBC RBC Hgb Hct MCV MCH MCHC RDW Plt Count Lymph % (Auto) [place] % (Auto) Lymph # [place] # Seg Neutrophils % Seg Neuts % (Manual) Lymphocytes % (Manual) Monocytes % (Manual) Seg Neutrophils # Seg Neutrophils # Man Lymphocytes # (Manual) Monocytes # (Manual) Eosinophils # (Manual) PT INR APTT Heparin Anti-Xa Level POC ABG pH POC ABG pCO2 POC ABG pO2 Sodium Potassium Chloride Carbon Dioxide BUN Creatinine Glucose POC Glucose 115 H 135 H 109 H Calcium Phosphorus Magnesium Total Bilirubin AST Total Creatine Kinase CK-MB (CK-2) Total Protein Albumin Urine Creatinine Urine Chloride 03/11/17 03/11/17 03/11/17 12:12 17:45 22:14 WBC RBC Hgb Hct MCV MCH MCHC RDW Plt Count Lymph % (Auto) [place] % (Auto) Lymph # [place] # Seg Neutrophils % Seg Neuts % (Manual) Lymphocytes % (Manual) Monocytes % (Manual) Seg Neutrophils # Seg Neutrophils # Man Lymphocytes # (Manual) Monocytes # (Manual) Eosinophils # (Manual) PT INR APTT Heparin Anti-Xa Level POC ABG pH POC ABG pCO2 POC ABG pO2 Sodium Potassium Chloride Carbon Dioxide BUN Creatinine Glucose POC Glucose 136 H 126 H 132 H Calcium Phosphorus Magnesium Total Bilirubin AST Total Creatine Kinase CK-MB (CK-2) Total Protein Albumin Urine Creatinine Urine Chloride 03/12/17 03/12/17 03/12/17 08:44 08:44 12:56 WBC 14.9 H RBC 5.04 H Hgb 16.1 H Hct 48.8 H MCV 97 H MCH MCHC RDW Plt Count Lymph % (Auto) 11.7 L [place] % (Auto) 11.6 H Lymph # [place] # 1.7 H Seg Neutrophils % 75.5 H Seg Neuts % (Manual) Lymphocytes % (Manual) Monocytes % (Manual) Seg Neutrophils # 11.2 H Seg Neutrophils # Man Lymphocytes # (Manual) Monocytes # (Manual) Eosinophils # (Manual) PT INR APTT Heparin Anti-Xa Level POC ABG pH POC ABG pCO2 POC ABG pO2 Sodium Potassium 3.2 L Chloride 93.4 L Carbon Dioxide BUN Creatinine 0.6 L Glucose 121 H POC Glucose 129 H Calcium Phosphorus Magnesium Total Bilirubin 1.30 H AST Total Creatine Kinase CK-MB (CK-2) Total Protein Albumin 3.2 L Urine Creatinine Urine Chloride 03/12/17 03/13/17 03/13/17 17:13 09:05 11:36 WBC RBC Hgb Hct MCV MCH MCHC RDW Plt Count Lymph % (Auto) [place] % (Auto) Lymph # [place] # Seg Neutrophils % Seg Neuts % (Manual) Lymphocytes % (Manual) Monocytes % (Manual) Seg Neutrophils # Seg Neutrophils # Man Lymphocytes # (Manual) Monocytes # (Manual) Eosinophils # (Manual) PT INR APTT Heparin Anti-Xa Level POC ABG pH POC ABG pCO2 POC ABG pO2 Sodium Potassium Chloride Carbon Dioxide BUN Creatinine Glucose POC Glucose 161 H 110 H 126 H Calcium Phosphorus Magnesium Total Bilirubin AST Total Creatine Kinase CK-MB (CK-2) Total Protein Albumin Urine Creatinine Urine Chloride 03/13/17 03/13/17 03/14/17 16:17 21:43 08:40 WBC RBC Hgb Hct MCV MCH MCHC RDW Plt Count Lymph % (Auto) [place] % (Auto) Lymph # [place] # Seg Neutrophils % Seg Neuts % (Manual) Lymphocytes % (Manual) Monocytes % (Manual) Seg Neutrophils # Seg Neutrophils # Man Lymphocytes # (Manual) Monocytes # (Manual) Eosinophils # (Manual) PT INR APTT Heparin Anti-Xa Level POC ABG pH POC ABG pCO2 POC ABG pO2 Sodium Potassium Chloride Carbon Dioxide BUN Creatinine Glucose POC Glucose 126 H 115 H 106 H Calcium Phosphorus Magnesium Total Bilirubin AST Total Creatine Kinase CK-MB (CK-2) Total Protein Albumin Urine Creatinine Urine Chloride 03/14/17 03/14/17 03/14/17 12:01 17:39 20:30 WBC RBC Hgb Hct MCV MCH MCHC RDW Plt Count Lymph % (Auto) [place] % (Auto) Lymph # [place] # Seg Neutrophils % Seg Neuts % (Manual) Lymphocytes % (Manual) Monocytes % (Manual) Seg Neutrophils # Seg Neutrophils # Man Lymphocytes # (Manual) Monocytes # (Manual) Eosinophils # (Manual) PT INR APTT Heparin Anti-Xa Level POC ABG pH POC ABG pCO2 POC ABG pO2 Sodium Potassium Chloride Carbon Dioxide BUN Creatinine Glucose POC Glucose 116 H 192 H 122 H Calcium Phosphorus Magnesium Total Bilirubin AST Total Creatine Kinase CK-MB (CK-2) Total Protein Albumin Urine Creatinine Urine Chloride 0503/15/17 03/15/17 01:12 06:49 08:46 WBC 23.9 H RBC Hgb 16.1 H Hct 49.4 H MCV 100 H D MCH 33 H MCHC RDW Plt Count Lymph % (Auto) [place] % (Auto) Lymph # [place] # Seg Neutrophils % Seg Neuts % (Manual) 92.0 H Lymphocytes % (Manual) 4.0 L Monocytes % (Manual) Seg Neutrophils # Seg Neutrophils # Man 22.0 H Lymphocytes # (Manual) 1.0 L Monocytes # (Manual) 1.0 H Eosinophils # (Manual) PT INR APTT Heparin Anti-Xa Level POC ABG pH POC ABG pCO2 POC ABG pO2 Sodium Potassium Chloride 91.0 L Carbon Dioxide 33 H BUN 45 H Creatinine Glucose 160 H POC Glucose 147 H Calcium Phosphorus Magnesium Total Bilirubin AST 41 H Total Creatine Kinase CK-MB (CK-2) Total Protein Albumin 3.0 L Urine Creatinine Urine Chloride 03/15/17 03/15/17 03/15/17 12:11 16:00 20:51 WBC RBC Hgb Hct MCV MCH MCHC RDW Plt Count Lymph % (Auto) [place] % (Auto) Lymph # [place] # Seg Neutrophils % Seg Neuts % (Manual) Lymphocytes % (Manual) Monocytes % (Manual) Seg Neutrophils # Seg Neutrophils # Man Lymphocytes # (Manual) Monocytes # (Manual) Eosinophils # (Manual) PT INR APTT Heparin Anti-Xa Level POC ABG pH POC ABG pCO2 POC ABG pO2 Sodium Potassium Chloride Carbon Dioxide BUN Creatinine Glucose POC Glucose 144 H 134 H 148 H Calcium Phosphorus Magnesium Total Bilirubin AST Total Creatine Kinase CK-MB (CK-2) Total Protein Albumin Urine Creatinine Urine Chloride 03/16/17 03/16/17 03/16/17 05:59 06:02 09:15 WBC 20.9 H RBC Hgb Hct 45.8 H MCV 99 H MCH 33 H MCHC RDW Plt Count Lymph % (Auto) [place] % (Auto) Lymph # [place] # Seg Neutrophils % Seg Neuts % (Manual) 92.0 H Lymphocytes % (Manual) 4.0 L Monocytes % (Manual) Seg Neutrophils # Seg Neutrophils # Man 19.2 H Lymphocytes # (Manual) 0.8 L Monocytes # (Manual) Eosinophils # (Manual) PT INR APTT Heparin Anti-Xa Level POC ABG pH POC ABG pCO2 POC ABG pO2 Sodium Potassium Chloride 92.3 L Carbon Dioxide 34 H BUN 44 H Creatinine Glucose 150 H POC Glucose 127 H Calcium Phosphorus Magnesium Total Bilirubin AST Total Creatine Kinase CK-MB (CK-2) Total Protein Albumin Urine Creatinine Urine Chloride 03/16/17 03/16/17 03/17/17 11:59 18:08 07:06 WBC RBC Hgb Hct MCV MCH MCHC RDW Plt Count Lymph % (Auto) [place] % (Auto) Lymph # [place] # Seg Neutrophils % Seg Neuts % (Manual) Lymphocytes % (Manual) Monocytes % (Manual) Seg Neutrophils # Seg Neutrophils # Man Lymphocytes # (Manual) Monocytes # (Manual) Eosinophils # (Manual) PT INR APTT Heparin Anti-Xa Level POC ABG pH POC ABG pCO2 POC ABG pO2 Sodium Potassium Chloride 93.3 L Carbon Dioxide 35 H BUN 31 H Creatinine Glucose 132 H POC Glucose 147 H 138 H Calcium Phosphorus Magnesium Total Bilirubin AST Total Creatine Kinase CK-MB (CK-2) Total Protein Albumin Urine Creatinine Urine Chloride 03/17/17 03/17/17 03/17/17 07:06 07:14 12:35 WBC 16.6 H RBC Hgb 15.6 H Hct 47.5 H MCV 99 H MCH 33 H MCHC RDW Plt Count Lymph % (Auto) 8.4 L [place] % (Auto) 8.1 H Lymph # [place] # 1.3 H Seg Neutrophils % 81.8 H Seg Neuts % (Manual) Lymphocytes % (Manual) Monocytes % (Manual) Seg Neutrophils # 13.6 H Seg Neutrophils # Man Lymphocytes # (Manual) Monocytes # (Manual) Eosinophils # (Manual) PT INR APTT Heparin Anti-Xa Level POC ABG pH POC ABG pCO2 POC ABG pO2 Sodium Potassium Chloride Carbon Dioxide BUN Creatinine Glucose POC Glucose 119 H 132 H Calcium Phosphorus Magnesium Total Bilirubin AST Total Creatine Kinase CK-MB (CK-2) Total Protein Albumin Urine Creatinine Urine Chloride 03/18/17 03/18/17 03/18/17 05:05 06:15 06:15 WBC 15.8 H RBC Hgb 16.5 H Hct 49.3 H MCV 99 H MCH 33 H MCHC RDW Plt Count Lymph % (Auto) [place] % (Auto) Lymph # [place] # Seg Neutrophils % Seg Neuts % (Manual) 88.0 H Lymphocytes % (Manual) 2.0 L Monocytes % (Manual) 8.0 H Seg Neutrophils # Seg Neutrophils # Man 13.9 H Lymphocytes # (Manual) 0.3 L Monocytes # (Manual) 1.3 H Eosinophils # (Manual) PT INR APTT Heparin Anti-Xa Level POC ABG pH POC ABG pCO2 72.9 H POC ABG pO2 168 H Sodium 147 H Potassium 3.5 L [place] 95.3 L Carbon Dioxide 37 H BUN 29 H Creatinine Glucose 155 H POC Glucose Calcium Phosphorus Magnesium Total Bilirubin AST Total Creatine Kinase CK-MB (CK-2) Total Protein Albumin Urine Creatinine Urine Chloride 03/18/17 03/18/17 03/18/17 08:27 11:24 11:31 WBC RBC Hgb Hct MCV MCH MCHC RDW Plt Count Lymph % (Auto) [place] % (Auto) Lymph # [place] # Seg Neutrophils % Seg Neuts % (Manual) Lymphocytes % (Manual) Monocytes % (Manual) Seg Neutrophils # Seg Neutrophils # Man Lymphocytes # (Manual) Monocytes # (Manual) Eosinophils # (Manual) PT INR APTT Heparin Anti-Xa Level POC ABG pH 7.530 H POC ABG pCO2 POC ABG pO2 60 L Sodium Potassium Chlor[place] Carbon Dioxide BUN Creatinine Glucose POC Glucose 123 H 176 H Calcium Phosphorus Magnesium Total Bilirubin AST Total Creatine Kinase CK-MB (CK-2) Total Protein Albumin Urine Creatinine Urine Chloride 03/18/17 03/18/17 03/18/17 14:10 15:24 17:23 WBC RBC Hgb 15.4 H Hct 46.4 H MCV MCH MCHC RDW Plt Count Lymph % (Auto) [place] % (Auto) Lymph # [place] # Seg Neutrophils % Seg Neuts % (Manual) Lymphocytes % (Manual) Monocytes % (Manual) Seg Neutrophils # Seg Neutrophils # Man Lymphocytes # (Manual) Monocytes # (Manual) Eosinophils # (Manual) PT INR APTT Heparin Anti-Xa Level POC ABG pH POC ABG pCO2 POC ABG pO2 Sodium Potassium Chloride 94.5 L Carbon Dioxide 33 H BUN 33 H Creatinine 1.6 H Glucose 241 H POC Glucose 244 H Calcium Phosphorus Magnesium Total Bilirubin AST Total Creatine Kinase CK-MB (CK-2) Total Protein Albumin 3.0 L Urine Creatinine Urine Chloride 03/18/17 03/18/17 03/19/17 17:23 21:33 03:54 WBC 25.4 H RBC Hgb Hct MCV 98 H MCH MCHC RDW Plt Count Lymph % (Auto) [place] % (Auto) Lymph # [place] # Seg Neutrophils % Seg Neuts % (Manual) 83.0 H Lymphocytes % (Manual) 4.5 L Monocytes % (Manual) 8.0 H Seg Neutrophils # Seg Neutrophils # Man 21.1 H Lymphocytes # (Manual) 1.1 L Monocytes # (Manual) 2.0 H Eosinophils # (Manual) PT 17.1 H INR 1.40 H APTT Heparin Anti-Xa Level POC ABG pH POC ABG pCO2 POC ABG pO2 Sodium Potassium Chloride Carbon Dioxide BUN Creatinine Glucose POC Glucose 164 H Calcium Phosphorus Magnesium Total Bilirubin AST Total Creatine Kinase CK-MB (CK-2) Total Protein Albumin Urine Creatinine Urine Chloride 03/19/17 03/19/17 03/19/17 03:54 06:55 06:55 WBC RBC Hgb Hct MCV MCH MCHC RDW Plt Count Lymph % (Auto) [place] % (Auto) Lymph # [place] # Seg Neutrophils % Seg Neuts % (Manual) Lymphocytes % (Manual) Monocytes % (Manual) Seg Neutrophils # Seg Neutrophils # Man Lymphocytes # (Manual) Monocytes # (Manual) Eosinophils # (Manual) PT INR APTT Heparin Anti-Xa Level 0.29 L POC ABG pH POC ABG pCO2 POC ABG pO2 Sodium 146 H Potassium 3.4 L [place] 97.8 L Carbon Dioxide 33 H BUN 30 H Creatinine Glucose 134 H POC Glucose Calcium Phosphorus Magnesium 1.60 L Total Bilirubin AST Total Creatine Kinase CK-MB (CK-2) Total Protein Albumin Urine Creatinine Urine Chloride 03/19/17 03/19/17 03/19/17 08:01 12:56 14:54 WBC RBC Hgb Hct MCV MCH MCHC RDW Plt Count Lymph % (Auto) [place] % (Auto) Lymph # [place] # Seg Neutrophils % Seg Neuts % (Manual) Lymphocytes % (Manual) Monocytes % (Manual) Seg Neutrophils # Seg Neutrophils # Man Lymphocytes # (Manual) Monocytes # (Manual) Eosinophils # (Manual) PT INR APTT Heparin Anti-Xa Level POC ABG pH POC ABG pCO2 57.8 H POC ABG pO2 71 L Sodium Potassium Chloride Carbon Dioxide BUN Creatinine Glucose POC Glucose 139 H 167 H Calcium Phosphorus Magnesium Total Bilirubin AST Total Creatine Kinase CK-MB (CK-2) Total Protein Albumin Urine Creatinine Urine Chloride 03/19/17 03/19/17 03/20/17 15:53 21:04 03:36 WBC RBC Hgb 15.3 H Hct 48.1 H MCV MCH MCHC RDW Plt Count Lymph % (Auto) [place] % (Auto) Lymph # [place] # Seg Neutrophils % Seg Neuts % (Manual) Lymphocytes % (Manual) Monocytes % (Manual) Seg Neutrophils # Seg Neutrophils # Man Lymphocytes # (Manual) Monocytes # (Manual) Eosinophils # (Manual) PT INR APTT Heparin Anti-Xa Level POC ABG pH POC ABG pCO2 POC ABG pO2 Sodium Potassium Chloride Carbon Dioxide BUN Creatinine Glucose POC Glucose 172 H 159 H Calcium Phosphorus Magnesium Total Bilirubin AST Total Creatine Kinase CK-MB (CK-2) Total Protein Albumin Urine Creatinine Urine Chloride 03/20/17 03/20/17 03/20/17 07:45 12:02 14:07 WBC RBC Hgb Hct MCV MCH MCHC RDW Plt Count Lymph % (Auto) [place] % (Auto) Lymph # [place] # Seg Neutrophils % Seg Neuts % (Manual) Lymphocytes % (Manual) Monocytes % (Manual) Seg Neutrophils # Seg Neutrophils # Man Lymphocytes # (Manual) Monocytes # (Manual) Eosinophils # (Manual) PT INR APTT Heparin Anti-Xa Level POC ABG pH 7.312 L POC ABG pCO2 68.3 H POC ABG pO2 47 L Sodium Potassium Chloride Carbon Dioxide BUN Creatinine Glucose POC Glucose 160 H 142 H Calcium Phosphorus Magnesium Total Bilirubin AST Total Creatine Kinase CK-MB (CK-2) Total Protein Albumin Urine Creatinine Urine Chloride 03/20/17 03/20/17 03/20/17 15:57 15:59 19:50 WBC RBC Hgb Hct MCV MCH MCHC RDW Plt Count Lymph % (Auto) [place] % (Auto) Lymph # [place] # Seg Neutrophils % Seg Neuts % (Manual) Lymphocytes % (Manual) Monocytes % (Manual) Seg Neutrophils # Seg Neutrophils # Man Lymphocytes # (Manual) Monocytes # (Manual) Eosinophils # (Manual) PT INR APTT Heparin Anti-Xa Level POC ABG pH 7.214 L POC ABG pCO2 82.8 H 58.7 H POC ABG pO2 69 L Sodium Potassium Chloride Carbon Dioxide BUN Creatinine Glucose POC Glucose 149 H Calcium Phosphorus Magnesium Total Bilirubin AST Total Creatine Kinase CK-MB (CK-2) Total Protein Albumin Urine Creatinine Urine Chloride 03/20/17 03/20/17 03/21/17 21:19 23:34 04:18 WBC RBC Hgb Hct MCV MCH MCHC RDW Plt Count Lymph % (Auto) [place] % (Auto) Lymph # [place] # Seg Neutrophils % Seg Neuts % (Manual) Lymphocytes % (Manual) Monocytes % (Manual) Seg Neutrophils # Seg Neutrophils # Man Lymphocytes # (Manual) Monocytes # (Manual) Eosinophils # (Manual) PT INR APTT Heparin Anti-Xa Level 0.20 L POC ABG pH POC ABG pCO2 48.6 H POC ABG pO2 79 L Sodium Potassium Chloride Carbon Dioxide BUN Creatinine Glucose POC Glucose 206 H Calcium Phosphorus Magnesium Total Bilirubin AST Total Creatine Kinase CK-MB (CK-2) Total Protein Albumin Urine Creatinine Urine Chloride 03/21/17 03/21/17 03/21/17 04:21 04:21 05:23 WBC RBC Hgb Hct MCV MCH MCHC RDW Plt Count Lymph % (Auto) [place] % (Auto) Lymph # [place] # Seg Neutrophils % Seg Neuts % (Manual) Lymphocytes % (Manual) Monocytes % (Manual) Seg Neutrophils # Seg Neutrophils # Man Lymphocytes # (Manual) Monocytes # (Manual) Eosinophils # (Manual) PT INR APTT Heparin Anti-Xa Level 0.24 L POC ABG pH POC ABG pCO2 POC ABG pO2 Sodium 147 H Potassium Chloride Carbon Dioxide BUN 42 H Creatinine 2.6 H D Glucose 209 H POC Glucose 181 H Calcium 7.9 L Phosphorus Magnesium Total Bilirubin AST Total Creatine Kinase CK-MB (CK-2) Total Protein Albumin Urine Creatinine Urine Chloride 03/21/17 03/21/17 03/21/17 13:16 13:16 14:43 WBC 27.8 H RBC Hgb Hct MCV 101 H D MCH MCHC RDW Plt Count Lymph % (Auto) [place] % (Auto) Lymph # [place] # Seg Neutrophils % Seg Neuts % (Manual) 76.0 H Lymphocytes % (Manual) 7.0 L Monocytes % (Manual) Seg Neutrophils # Seg Neutrophils # Man 21.1 H Lymphocytes # (Manual) Monocytes # (Manual) 1.1 H Eosinophils # (Manual) PT INR APTT Heparin Anti-Xa Level 0.25 L POC ABG pH 7.474 H POC ABG pCO2 POC ABG pO2 59 L Sodium Potassium Chlor[place] Carbon Dioxide BUN Creatinine Glucose POC Glucose Calcium Phosphorus Magnesium Total Bilirubin AST Total Creatine Kinase CK-MB (CK-2) Total Protein Albumin Urine Creatinine Urine Chloride 03/21/17 03/21/17 03/21/17 17:00 18:20 23:40 WBC RBC Hgb Hct MCV MCH MCHC RDW Plt Count Lymph % (Auto) [place] % (Auto) Lymph # [place] # Seg Neutrophils % Seg Neuts % (Manual) Lymphocytes % (Manual) Monocytes % (Manual) Seg Neutrophils # Seg Neutrophils # Man Lymphocytes # (Manual) Monocytes # (Manual) Eosinophils # (Manual) PT INR APTT Heparin Anti-Xa Level POC ABG pH POC ABG pCO2 POC ABG pO2 Sodium Potassium Chloride Carbon Dioxide BUN 48 H Creatinine 3.2 H Glucose 135 H POC Glucose 152 H 136 H Calcium 6.8 L Phosphorus Magnesium Total Bilirubin AST Total Creatine Kinase CK-MB (CK-2) Total Protein 5.3 L D Albumin 1.7 L Urine Creatinine Urine Chloride 03/22/17 03/22/17 03/22/17 04:30 04:30 04:30 WBC 29.3 H RBC Hgb Hct MCV 100 H MCH MCHC 31 L RDW 15.3 H Plt Count Lymph % (Auto) [place] % (Auto) Lymph # [place] # Seg Neutrophils % Seg Neuts % (Manual) Lymphocytes % (Manual) Monocytes % (Manual) Seg Neutrophils # Seg Neutrophils # Man Lymphocytes # (Manual) Monocytes # (Manual) Eosinophils # (Manual) PT INR APTT Heparin Anti-Xa Level 0.29 L POC ABG pH POC ABG pCO2 POC ABG pO2 Sodium Potassium Chloride Carbon Dioxide BUN 60 H Creatinine 4.3 H Glucose 118 H POC Glucose Calcium 8.2 L D Phosphorus Magnesium Total Bilirubin AST Total Creatine Kinase CK-MB (CK-2) Total Protein Albumin 1.8 L Urine Creatinine Urine Chloride 03/22/17 03/22/17 03/22/17 05:08 07:00 07:00 WBC 24.8 H RBC Hgb Hct MCV 100 H MCH MCHC RDW Plt Count Lymph % (Auto) [place] % (Auto) Lymph # [place] # Seg Neutrophils % Seg Neuts % (Manual) 94.0 H Lymphocytes % (Manual) 0 L Monocytes % (Manual) Seg Neutrophils # Seg Neutrophils # Man 23.3 H Lymphocytes # (Manual) 0.0 L Monocytes # (Manual) Eosinophils # (Manual) 0.7 H PT INR APTT Heparin Anti-Xa Level POC ABG pH POC ABG pCO2 POC ABG pO2 Sodium 147 H Potassium Chloride 109.2 H Carbon Dioxide BUN 58 H Creatinine 4.1 H Glucose 117 H POC Glucose 124 H Calcium 7.4 L Phosphorus Magnesium Total Bilirubin AST Total Creatine Kinase CK-MB (CK-2) Total Protein Albumin Urine Creatinine Urine Chloride 06/04/0203/22/17 03/22/17 08:40 11:37 14:30 WBC RBC Hgb Hct MCV MCH MCHC RDW Plt Count Lymph % (Auto) [place] % (Auto) Lymph # [place] # Seg Neutrophils % Seg Neuts % (Manual) Lymphocytes % (Manual) Monocytes % (Manual) Seg Neutrophils # Seg Neutrophils # Man Lymphocytes # (Manual) Monocytes # (Manual) Eosinophils # (Manual) PT 16.2 H INR 1.31 H APTT 68.9 H* Heparin Anti-Xa Level < 0.10 L POC ABG pH POC ABG pCO2 POC ABG pO2 Sodium Potassium Chlor[place] Carbon Dioxide BUN Creatinine Glucose POC Glucose 159 H Calcium Phosphorus Magnesium Total Bilirubin AST Total Creatine Kinase CK-MB (CK-2) Total Protein Albumin Urine Creatinine Urine Chloride 03/22/17 03/22/17 03/22/17 17:53 21:44 23:54 WBC RBC Hgb 11.6 L Hct 33.1 L MCV MCH MCHC RDW Plt Count Lymph % (Auto) [place] % (Auto) Lymph # [place] # Seg Neutrophils % Seg Neuts % (Manual) Lymphocytes % (Manual) Monocytes % (Manual) Seg Neutrophils # Seg Neutrophils # Man Lymphocytes # (Manual) Monocytes # (Manual) Eosinophils # (Manual) PT INR APTT Heparin Anti-Xa Level POC ABG pH POC ABG pCO2 POC ABG pO2 Sodium Potassium Chlor[place] Carbon Dioxide BUN Creatinine Glucose POC Glucose 142 H 131 H Calcium Phosphorus Magnesium Total Bilirubin AST Total Creatine Kinase CK-MB (CK-2) Total Protein Albumin Urine Creatinine Urine Chloride 03/23/17 03/23/17 03/23/17 04:08 05:29 06:34 WBC RBC Hgb Hct MCV MCH MCHC RDW Plt Count Lymph % (Auto) [place] % (Auto) Lymph # [place] # Seg Neutrophils % Seg Neuts % (Manual) Lymphocytes % (Manual) Monocytes % (Manual) Seg Neutrophils # Seg Neutrophils # Man Lymphocytes # (Manual) Monocytes # (Manual) Eosinophils # (Manual) PT INR APTT Heparin Anti-Xa Level POC ABG pH POC ABG pCO2 POC ABG pO2 75 L Sodium Potassium Chloride Carbon Dioxide 21 L BUN 85 H Creatinine 6.0 H Glucose 134 H POC Glucose 134 H Calcium 8.1 L Phosphorus Magnesium Total Bilirubin AST Total Creatine Kinase CK-MB (CK-2) Total Protein Albumin Urine Creatinine Urine Chloride 03/23/17 03/23/17 03/23/17 12:09 17:20 17:52 WBC RBC Hgb Hct MCV MCH MCHC RDW Plt Count Lymph % (Auto) [place] % (Auto) Lymph # [place] # Seg Neutrophils % Seg Neuts % (Manual) Lymphocytes % (Manual) Monocytes % (Manual) Seg Neutrophils # Seg Neutrophils # Man Lymphocytes # (Manual) Monocytes # (Manual) Eosinophils # (Manual) PT INR APTT Heparin Anti-Xa Level 1.39 H POC ABG pH POC ABG pCO2 POC ABG pO2 Sodium Potassium [place]lor[place] Carbon Dioxide BUN Creatinine Glucose POC Glucose 133 H 151 H Calcium Phosphorus Magnesium Total Bilirubin AST Total Creatine Kinase CK-MB (CK-2) Total Protein Albumin Urine Creatinine Urine Chloride 03/23/17 03/24/17 03/24/17 23:59 03:15 03:15 WBC 23.9 H RBC 3.58 L Hgb 11.6 L Hct 34.6 L MCV 97 H D MCH MCHC RDW Plt Count 122 L Lymph % (Auto) [place] % (Auto) Lymph # [place] # Seg Neutrophils % Seg Neuts % (Manual) Lymphocytes % (Manual) Monocytes % (Manual) Seg Neutrophils # Seg Neutrophils # Man Lymphocytes # (Manual) Monocytes # (Manual) Eosinophils # (Manual) PT INR APTT Heparin Anti-Xa Level POC ABG pH POC ABG pCO2 POC ABG pO2 Sodium 135 L Potassium Chlor[place] 95.0 L Carbon Dioxide BUN 71 H Creatinine 5.2 H Glucose 123 H POC Glucose 124 H Calcium 8.0 L Phosphorus Magnesium Total Bilirubin AST Total Creatine Kinase CK-MB (CK-2) Total Protein Albumin Urine Creatinine Urine Chloride 03/24/17 03/24/17 03/24/17 03:15 04:53 11:58 WBC RBC Hgb Hct MCV MCH MCHC RDW Plt Count Lymph % (Auto) [place] % (Auto) Lymph # [place] # Seg Neutrophils % Seg Neuts % (Manual) Lymphocytes % (Manual) Monocytes % (Manual) Seg Neutrophils # Seg Neutrophils # Man Lymphocytes # (Manual) Monocytes # (Manual) Eosinophils # (Manual) PT INR APTT Heparin Anti-Xa Level 0.20 L POC ABG pH POC ABG pCO2 POC ABG pO2 72 L Sodium Potassium [place] Carbon Dioxide BUN Creatinine Glucose POC Glucose 121 H Calcium Phosphorus Magnesium Total Bilirubin AST Total Creatine Kinase CK-MB (CK-2) Total Protein Albumin Urine Creatinine Urine Chloride 03/24/17 03/25/17 03/25/17 18:16 00:24 05:30 WBC RBC Hgb Hct MCV MCH MCHC RDW Plt Count Lymph % (Auto) [place] % (Auto) Lymph # [place] # Seg Neutrophils % Seg Neuts % (Manual) Lymphocytes % (Manual) Monocytes % (Manual) Seg Neutrophils # Seg Neutrophils # Man Lymphocytes # (Manual) Monocytes # (Manual) Eosinophils # (Manual) PT INR APTT Heparin Anti-Xa Level POC ABG pH POC ABG pCO2 34.2 L POC ABG pO2 Sodium Potassium [place] Carbon Dioxide BUN Creatinine Glucose POC Glucose 117 H 107 H Calcium Phosphorus Magnesium Total Bilirubin AST Total Creatine Kinase CK-MB (CK-2) Total Protein Albumin Urine Creatinine Urine Chloride 03/25/17 03/25/17 03/25/17 05:35 11:45 16:48 WBC RBC Hgb Hct MCV MCH MCHC RDW Plt Count Lymph % (Auto) [place] % (Auto) Lymph # [place] # Seg Neutrophils % Seg Neuts % (Manual) Lymphocytes % (Manual) Monocytes % (Manual) Seg Neutrophils # Seg Neutrophils # Man Lymphocytes # (Manual) Monocytes # (Manual) Eosinophils # (Manual) PT INR APTT Heparin Anti-Xa Level POC ABG pH POC ABG pCO2 POC ABG pO2 Sodium 132 L Potassium [place]lor[place] 92.0 L Carbon Dioxide 20 L BUN 102 H Creatinine 7.2 H Glucose 101 H POC Glucose 127 H 114 H Calcium 8.3 L Phosphorus Magnesium Total Bilirubin AST Total Creatine Kinase CK-MB (CK-2) Total Protein Albumin Urine Creatinine Urine Chlor[place] 03/26/17 03/26/17 03/26/17 00:17 04:15 04:15 WBC 21.1 H RBC 3.52 L Hgb 11.0 L Hct 33.2 L MCV 95 H MCH MCHC RDW Plt Count 121 L Lymph % (Auto) [place] % (Auto) Lymph # [place] # Seg Neutrophils % Seg Neuts % (Manual) Lymphocytes % (Manual) Monocytes % (Manual) Seg Neutrophils # Seg Neutrophils # Man Lymphocytes # (Manual) Monocytes # (Manual) Eosinophils # (Manual) PT INR APTT Heparin Anti-Xa Level POC ABG pH POC ABG pCO2 POC ABG pO2 Sodium 133 L Potassium [place] 92.9 L Carbon Dioxide 21 L BUN 77 H Creatinine 5.4 H Glucose 115 H POC Glucose 114 H Calcium 8.1 L Phosphorus Magnesium Total Bilirubin AST Total Creatine Kinase CK-MB (CK-2) Total Protein Albumin Urine Creatinine Urine Chlor[place] 03/26/17 03/26/17 03/26/17 04:49 11:36 23:29 WBC RBC Hgb Hct MCV MCH MCHC RDW Plt Count Lymph % (Auto) [place] % (Auto) Lymph # [place] # Seg Neutrophils % Seg Neuts % (Manual) Lymphocytes % (Manual) Monocytes % (Manual) Seg Neutrophils # Seg Neutrophils # Man Lymphocytes # (Manual) Monocytes # (Manual) Eosinophils # (Manual) PT INR APTT Heparin Anti-Xa Level POC ABG pH POC ABG pCO2 POC ABG pO2 Sodium Potassium [place] Carbon Dioxide BUN Creatinine Glucose POC Glucose 127 H 123 H 125 H Calcium Phosphorus Magnesium Total Bilirubin AST Total Creatine Kinase CK-MB (CK-2) Total Protein Albumin Urine Creatinine Urine Chloride 03/27/17 03/27/17 03/27/17 04:00 04:46 05:06 WBC RBC Hgb Hct MCV MCH MCHC RDW Plt Count Lymph % (Auto) [place] % (Auto) Lymph # [place] # Seg Neutrophils % Seg Neuts % (Manual) Lymphocytes % (Manual) Monocytes % (Manual) Seg Neutrophils # Seg Neutrophils # Man Lymphocytes # (Manual) Monocytes # (Manual) Eosinophils # (Manual) PT INR APTT Heparin Anti-Xa Level POC ABG pH POC ABG pCO2 31.4 L POC ABG pO2 Sodium 132 L Potassium Chlor[place] 90.5 L Carbon Dioxide 19 L BUN 95 H Creatinine 6.7 H Glucose 110 H POC Glucose 116 H Calcium Phosphorus Magnesium Total Bilirubin AST Total Creatine Kinase CK-MB (CK-2) Total Protein Albumin Urine Creatinine Urine Chloride 03/27/17 03/27/17 03/27/17 08:11 08:11 11:34 WBC 24.7 H RBC Hgb 11.5 L Hct 35.0 L MCV 95 H MCH MCHC RDW Plt Count Lymph % (Auto) [place] % (Auto) Lymph # [place] # Seg Neutrophils % Seg Neuts % (Manual) Lymphocytes % (Manual) Monocytes % (Manual) Seg Neutrophils # Seg Neutrophils # Man Lymphocytes # (Manual) Monocytes # (Manual) Eosinophils # (Manual) PT INR APTT Heparin Anti-Xa Level < 0.10 L POC ABG pH POC ABG pCO2 POC ABG pO2 Sodium Potassium Chlor[place] Carbon Dioxide BUN Creatinine Glucose POC Glucose 118 H Calcium Phosphorus Magnesium Total Bilirubin AST Total Creatine Kinase CK-MB (CK-2) Total Protein Albumin Urine Creatinine Urine Chloride 03/27/17 03/27/17 03/28/17 16:44 23:59 05:07 WBC RBC Hgb Hct MCV MCH MCHC RDW Plt Count Lymph % (Auto) [place] % (Auto) Lymph # [place] # Seg Neutrophils % Seg Neuts % (Manual) Lymphocytes % (Manual) Monocytes % (Manual) Seg Neutrophils # Seg Neutrophils # Man Lymphocytes # (Manual) Monocytes # (Manual) Eosinophils # (Manual) PT INR APTT Heparin Anti-Xa Level POC ABG pH POC ABG pCO2 POC ABG pO2 Sodium Potassium [place] Carbon Dioxide BUN Creatinine Glucose POC Glucose 110 H 109 H 110 H Calcium Phosphorus Magnesium Total Bilirubin AST Total Creatine Kinase CK-MB (CK-2) Total Protein Albumin Urine Creatinine Urine Chloride 03/28/17 03/28/17 03/28/17 07:00 11:24 11:50 WBC 26.6 H RBC 3.42 L Hgb 10.8 L Hct 33.2 L MCV 97 H MCH MCHC RDW 15.4 H Plt Count Lymph % (Auto) [place] % (Auto) Lymph # [place] # Seg Neutrophils % Seg Neuts % (Manual) Lymphocytes % (Manual) Monocytes % (Manual) Seg Neutrophils # Seg Neutrophils # Man Lymphocytes # (Manual) Monocytes # (Manual) Eosinophils # (Manual) PT INR APTT Heparin Anti-Xa Level POC ABG pH POC ABG pCO2 POC ABG pO2 Sodium 131 L Potassium 5.3 H Chloride 86.6 L Carbon Dioxide 17 L BUN 112 H Creatinine 7.9 H Glucose 120 H POC Glucose 141 H Calcium Phosphorus Magnesium Total Bilirubin AST Total Creatine Kinase CK-MB (CK-2) Total Protein Albumin Urine Creatinine Urine Chloride 03/28/17 03/28/17 03/28/17 17:25 18:04 23:07 WBC RBC Hgb Hct MCV MCH MCHC RDW Plt Count Lymph % (Auto) [place] % (Auto) Lymph # [place] # Seg Neutrophils % Seg Neuts % (Manual) Lymphocytes % (Manual) Monocytes % (Manual) Seg Neutrophils # Seg Neutrophils # Man Lymphocytes # (Manual) Monocytes # (Manual) Eosinophils # (Manual) PT INR APTT Heparin Anti-Xa Level 0.23 L POC ABG pH POC ABG pCO2 POC ABG pO2 Sodium Potassium Chlor[place] Carbon Dioxide BUN Creatinine Glucose POC Glucose 128 H 115 H Calcium Phosphorus Magnesium Total Bilirubin AST Total Creatine Kinase CK-MB (CK-2) Total Protein Albumin Urine Creatinine Urine Chloride 03/29/17 03/29/17 03/29/17 03:23 05:16 08:20 WBC RBC Hgb Hct MCV MCH MCHC RDW Plt Count Lymph % (Auto) [place] % (Auto) Lymph # [place] # Seg Neutrophils % Seg Neuts % (Manual) Lymphocytes % (Manual) Monocytes % (Manual) Seg Neutrophils # Seg Neutrophils # Man Lymphocytes # (Manual) Monocytes # (Manual) Eosinophils # (Manual) PT INR APTT Heparin Anti-Xa Level 0.10 L POC ABG pH POC ABG pCO2 POC ABG pO2 Sodium 126 L Potassium 5.6 H Chloride 87.5 L Carbon Dioxide 21 L BUN 84 H Creatinine 6.0 H Glucose 144 H POC Glucose 146 H Calcium 7.9 L Phosphorus Magnesium Total Bilirubin AST Total Creatine Kinase CK-MB (CK-2) Total Protein Albumin Urine Creatinine Urine Chloride 03/29/17 03/29/17 03/29/17 08:20 09:13 10:00 WBC 27.6 H RBC 3.27 L Hgb 10.2 L Hct 31.8 L MCV 97 H MCH MCHC RDW 15.3 H Plt Count Lymph % (Auto) [place] % (Auto) Lymph # [place] # Seg Neutrophils % Seg Neuts % (Manual) Lymphocytes % (Manual) Monocytes % (Manual) Seg Neutrophils # Seg Neutrophils # Man Lymphocytes # (Manual) Monocytes # (Manual) Eosinophils # (Manual) PT INR APTT Heparin Anti-Xa Level 0.84 H POC ABG pH 7.204 L POC ABG pCO2 52.8 H POC ABG pO2 57 L Sodium Potassium Chloride Carbon Dioxide BUN Creatinine Glucose POC Glucose Calcium Phosphorus Magnesium Total Bilirubin AST Total Creatine Kinase CK-MB (CK-2) Total Protein Albumin Urine Creatinine Urine Chloride 03/29/17 03/29/17 03/29/17 10:24 12:27 16:44 WBC RBC Hgb Hct MCV MCH MCHC RDW Plt Count Lymph % (Auto) [place] % (Auto) Lymph # [place] # Seg Neutrophils % Seg Neuts % (Manual) Lymphocytes % (Manual) Monocytes % (Manual) Seg Neutrophils # Seg Neutrophils # Man Lymphocytes # (Manual) Monocytes # (Manual) Eosinophils # (Manual) PT INR APTT Heparin Anti-Xa Level < 0.10 L POC ABG pH 7.305 L POC ABG pCO2 POC ABG pO2 73 L Sodium Potassium [place] Carbon Dioxide BUN Creatinine Glucose POC Glucose 152 H Calcium Phosphorus Magnesium Total Bilirubin AST Total Creatine Kinase CK-MB (CK-2) Total Protein Albumin Urine Creatinine Urine Chloride 03/29/17 03/29/17 03/29/17 17:48 18:56 22:10 WBC RBC Hgb Hct MCV MCH MCHC RDW Plt Count Lymph % (Auto) [place] % (Auto) Lymph # [place] # Seg Neutrophils % Seg Neuts % (Manual) Lymphocytes % (Manual) Monocytes % (Manual) Seg Neutrophils # Seg Neutrophils # Man Lymphocytes # (Manual) Monocytes # (Manual) Eosinophils # (Manual) PT INR APTT Heparin Anti-Xa Level POC ABG pH POC ABG pCO2 POC ABG pO2 Sodium 125 L Potassium 5.8 H Chloride 85.4 L Carbon Dioxide 16 L BUN 96 H Creatinine 6.9 H Glucose 135 H POC Glucose 130 H Calcium Phosphorus Magnesium Total Bilirubin AST Total Creatine Kinase CK-MB (CK-2) Total Protein Albumin Urine Creatinine 86.5 H Urine Chloride 15.2 L 03/30/17 03/30/17 03/30/17 00:11 01:00 05:42 WBC RBC Hgb Hct MCV MCH MCHC RDW Plt Count Lymph % (Auto) [place] % (Auto) Lymph # [place] # Seg Neutrophils % Seg Neuts % (Manual) Lymphocytes % (Manual) Monocytes % (Manual) Seg Neutrophils # Seg Neutrophils # Man Lymphocytes # (Manual) Monocytes # (Manual) Eosinophils # (Manual) PT INR APTT Heparin Anti-Xa Level 0.80 H POC ABG pH POC ABG pCO2 POC ABG pO2 Sodium Potassium Chloride Carbon Dioxide BUN Creatinine Glucose POC Glucose 146 H 162 H Calcium Phosphorus Magnesium Total Bilirubin AST Total Creatine Kinase CK-MB (CK-2) Total Protein Albumin Urine Creatinine Urine Chloride 03/30/17 03/30/17 03/30/17 07:32 07:38 08:20 WBC 27.7 H RBC 3.14 L Hgb 9.7 L Hct 30.1 L MCV 96 H MCH MCHC RDW 16.2 H Plt Count Lymph % (Auto) [place] % (Auto) Lymph # [place] # Seg Neutrophils % Seg Neuts % (Manual) 93.0 H Lymphocytes % (Manual) 1.0 L Monocytes % (Manual) Seg Neutrophils # Seg Neutrophils # Man 25.8 H Lymphocytes # (Manual) 0.3 L Monocytes # (Manual) 1.0 H Eosinophils # (Manual) PT INR APTT Heparin Anti-Xa Level 0.99 H POC ABG pH POC ABG pCO2 POC ABG pO2 Sodium 127 L Potassium 5.9 H Chloride 88.5 L Carbon Dioxide 16 L BUN 101 H Creatinine 7.5 H Glucose 147 H POC Glucose Calcium 8.0 L Phosphorus Magnesium Total Bilirubin AST Total Creatine Kinase CK-MB (CK-2) Total Protein Albumin Urine Creatinine Urine Chloride 03/30/17 03/30/17 03/30/17 12:19 16:07 16:58 WBC RBC Hgb Hct MCV MCH MCHC RDW Plt Count Lymph % (Auto) [place] % (Auto) Lymph # [place] # Seg Neutrophils % Seg Neuts % (Manual) Lymphocytes % (Manual) Monocytes % (Manual) Seg Neutrophils # Seg Neutrophils # Man Lymphocytes # (Manual) Monocytes # (Manual) Eosinophils # (Manual) PT INR APTT Heparin Anti-Xa Level 1.07 H POC ABG pH POC ABG pCO2 POC ABG pO2 62 L Sodium Potassium Chloride Carbon Dioxide BUN Creatinine Glucose POC Glucose 179 H Calcium Phosphorus Magnesium Total Bilirubin AST Total Creatine Kinase CK-MB (CK-2) Total Protein Albumin Urine Creatinine Urine Chloride 03/30/17 03/30/17 03/31/17 17:48 Unknown 00:25 WBC RBC Hgb Hct MCV MCH MCHC RDW Plt Count Lymph % (Auto) [place] % (Auto) Lymph # [place] # Seg Neutrophils % Seg Neuts % (Manual) Lymphocytes % (Manual) Monocytes % (Manual) Seg Neutrophils # Seg Neutrophils # Man Lymphocytes # (Manual) Monocytes # (Manual) Eosinophils # (Manual) PT INR APTT Heparin Anti-Xa Level POC ABG pH POC ABG pCO2 POC ABG pO2 Sodium 124 L Potassium 5.2 H Chloride 86.6 L Carbon Dioxide 16 L BUN 93 H Creatinine 6.3 H Glucose 153 H POC Glucose 162 H 139 H Calcium 7.4 L D Phosphorus Magnesium Total Bilirubin AST Total Creatine Kinase CK-MB (CK-2) Total Protein Albumin Urine Creatinine Urine Chloride 03/31/17 03/31/17 03/31/17 04:18 05:21 11:39 WBC RBC Hgb Hct MCV MCH MCHC RDW Plt Count Lymph % (Auto) [place] % (Auto) Lymph # [place] # Seg Neutrophils % Seg Neuts % (Manual) Lymphocytes % (Manual) Monocytes % (Manual) Seg Neutrophils # Seg Neutrophils # Man Lymphocytes # (Manual) Monocytes # (Manual) Eosinophils # (Manual) PT INR APTT Heparin Anti-Xa Level POC ABG pH 7.209 L POC ABG pCO2 55.7 H POC ABG pO2 106 H Sodium Potassium Chloride Carbon Dioxide BUN Creatinine Glucose POC Glucose 133 H 133 H Calcium Phosphorus Magnesium Total Bilirubin AST Total Creatine Kinase CK-MB (CK-2) Total Protein Albumin Urine Creatinine Urine Chloride 03/31/17 03/31/17 03/31/17 16:53 Unknown Unknown WBC 25.9 H RBC 3.04 L Hgb 9.6 L Hct 29.9 L MCV 98 H MCH MCHC RDW 16.1 H Plt Count Lymph % (Auto) [place] % (Auto) Lymph # [place] # Seg Neutrophils % Seg Neuts % (Manual) Lymphocytes % (Manual) Monocytes % (Manual) Seg Neutrophils # Seg Neutrophils # Man Lymphocytes # (Manual) Monocytes # (Manual) Eosinophils # (Manual) PT INR APTT Heparin Anti-Xa Level POC ABG pH POC ABG pCO2 POC ABG pO2 Sodium 133 L Potassium Chloride 91.6 L Carbon Dioxide 20 L BUN 67 H Creatinine 5.3 H Glucose 129 H POC Glucose 146 H Calcium 7.4 L Phosphorus Magnesium Total Bilirubin AST Total Creatine Kinase CK-MB (CK-2) Total Protein Albumin Urine Creatinine Urine Chloride 03/31/17 04/01/17 04/01/17 23:59 04:00 04:00 WBC 16.1 H RBC 3.02 L Hgb 9.6 L Hct 29.0 L MCV 96 H MCH MCHC RDW 16.0 H Plt Count Lymph % (Auto) [place] % (Auto) Lymph # [place] # Seg Neutrophils % Seg Neuts % (Manual) Lymphocytes % (Manual) Monocytes % (Manual) Seg Neutrophils # Seg Neutrophils # Man Lymphocytes # (Manual) Monocytes # (Manual) Eosinophils # (Manual) PT INR APTT Heparin Anti-Xa Level POC ABG pH POC ABG pCO2 POC ABG pO2 Sodium Potassium 3.1 L D Chloride 96.0 L Carbon Dioxide BUN 45 H Creatinine 4.1 H Glucose POC Glucose 121 H Calcium 7.1 L Phosphorus Magnesium Total Bilirubin AST Total Creatine Kinase CK-MB (CK-2) Total Protein Albumin Urine Creatinine Urine Chloride 04/01/17 04/02/17 04/02/17 05:20 00:15 04:00 WBC 13.5 H RBC 3.05 L Hgb 9.7 L Hct 29.2 L MCV 96 H MCH MCHC RDW 15.9 H Plt Count Lymph % (Auto) [place] % (Auto) Lymph # [place] # Seg Neutrophils % Seg Neuts % (Manual) Lymphocytes % (Manual) Monocytes % (Manual) Seg Neutrophils # Seg Neutrophils # Man Lymphocytes # (Manual) Monocytes # (Manual) Eosinophils # (Manual) PT INR APTT Heparin Anti-Xa Level POC ABG pH POC ABG pCO2 POC ABG pO2 132 H Sodium Potassium Chloride Carbon Dioxide BUN Creatinine Glucose POC Glucose 110 H Calcium Phosphorus Magnesium Total Bilirubin AST Total Creatine Kinase CK-MB (CK-2) Total Protein Albumin Urine Creatinine Urine Chloride 04/02/17 04/02/17 04/02/17 04:22 04:35 05:25 WBC RBC Hgb Hct MCV MCH MCHC RDW Plt Count Lymph % (Auto) [place] % (Auto) Lymph # [place] # Seg Neutrophils % Seg Neuts % (Manual) Lymphocytes % (Manual) Monocytes % (Manual) Seg Neutrophils # Seg Neutrophils # Man Lymphocytes # (Manual) Monocytes # (Manual) Eosinophils # (Manual) PT INR APTT Heparin Anti-Xa Level POC ABG pH POC ABG pCO2 POC ABG pO2 106 H Sodium Potassium 2.8 L* Chloride Carbon Dioxide BUN 30 H Creatinine 3.5 H Glucose 113 H POC Glucose 110 H Calcium 7.6 L Phosphorus Magnesium Total Bilirubin AST Total Creatine Kinase CK-MB (CK-2) Total Protein Albumin Urine Creatinine Urine Chloride 04/02/17 04/02/17 04/02/17 06:49 11:56 18:02 WBC RBC Hgb Hct MCV MCH MCHC RDW Plt Count Lymph % (Auto) [place] % (Auto) Lymph # [place] # Seg Neutrophils % Seg Neuts % (Manual) Lymphocytes % (Manual) Monocytes % (Manual) Seg Neutrophils # Seg Neutrophils # Man Lymphocytes # (Manual) Monocytes # (Manual) Eosinophils # (Manual) PT INR APTT Heparin Anti-Xa Level 0.23 L POC ABG pH POC ABG pCO2 POC ABG pO2 Sodium Potassium Chloride Carbon Dioxide BUN Creatinine Glucose POC Glucose 118 H 128 H Calcium Phosphorus Magnesium Total Bilirubin AST Total Creatine Kinase CK-MB (CK-2) Total Protein Albumin Urine Creatinine Urine Chloride 04/03/17 04/03/17 04/03/17 00:15 04:41 05:54 WBC RBC Hgb Hct MCV MCH MCHC RDW Plt Count Lymph % (Auto) [place] % (Auto) Lymph # [place] # Seg Neutrophils % Seg Neuts % (Manual) Lymphocytes % (Manual) Monocytes % (Manual) Seg Neutrophils # Seg Neutrophils # Man Lymphocytes # (Manual) Monocytes # (Manual) Eosinophils # (Manual) PT INR APTT Heparin Anti-Xa Level POC ABG pH 7.451 H POC ABG pCO2 POC ABG pO2 146 H Sodium Potassium Chloride Carbon Dioxide BUN Creatinine Glucose POC Glucose 202 H 202 H Calcium Phosphorus Magnesium Total Bilirubin AST Total Creatine Kinase CK-MB (CK-2) Total Protein Albumin Urine Creatinine Urine Chloride 04/03/17 04/03/17 04/03/17 06:22 06:22 09:54 WBC RBC 3.03 L Hgb 9.7 L Hct 28.7 L MCV 95 H MCH MCHC RDW 15.9 H Plt Count Lymph % (Auto) [place] % (Auto) Lymph # [place] # Seg Neutrophils % Seg Neuts % (Manual) Lymphocytes % (Manual) Monocytes % (Manual) Seg Neutrophils # Seg Neutrophils # Man Lymphocytes # (Manual) Monocytes # (Manual) Eosinophils # (Manual) PT INR APTT Heparin Anti-Xa Level < 0.10 L POC ABG pH POC ABG pCO2 POC ABG pO2 Sodium Potassium Chloride Carbon Dioxide BUN 23 H Creatinine 3.1 H Glucose 175 H POC Glucose Calcium 8.0 L Phosphorus Magnesium Total Bilirubin AST Total Creatine Kinase CK-MB (CK-2) Total Protein Albumin Urine Creatinine Urine Chloride 04/03/17 04/03/17 04/03/17 11:40 11:45 16:25 WBC RBC Hgb Hct MCV MCH MCHC RDW Plt Count Lymph % (Auto) [place] % (Auto) Lymph # [place] # Seg Neutrophils % Seg Neuts % (Manual) Lymphocytes % (Manual) Monocytes % (Manual) Seg Neutrophils # Seg Neutrophils # Man Lymphocytes # (Manual) Monocytes # (Manual) Eosinophils # (Manual) PT INR APTT Heparin Anti-Xa Level 0.27 L POC ABG pH POC ABG pCO2 POC ABG pO2 Sodium Potassium Chloride Carbon Dioxide BUN Creatinine Glucose POC Glucose 205 H 191 H Calcium Phosphorus Magnesium Total Bilirubin AST Total Creatine Kinase CK-MB (CK-2) Total Protein Albumin Urine Creatinine Urine Chloride 04/03/17 04/04/17 04/04/17 21:42 04:00 04:00 WBC 11.7 H RBC 3.20 L Hgb 10.0 L Hct 31.2 L MCV 96 H MCH MCHC RDW 16.1 H Plt Count Lymph % (Auto) [place] % (Auto) Lymph # [place] # Seg Neutrophils % Seg Neuts % (Manual) 94.0 H Lymphocytes % (Manual) 0 L Monocytes % (Manual) Seg Neutrophils # Seg Neutrophils # Man 11.0 H Lymphocytes # (Manual) 0.0 L Monocytes # (Manual) Eosinophils # (Manual) PT INR APTT Heparin Anti-Xa Level POC ABG pH POC ABG pCO2 POC ABG pO2 Sodium 136 L Potassium Chloride 97.6 L Carbon Dioxide 21 L BUN 41 H Creatinine 4.0 H Glucose 184 H POC Glucose 147 H Calcium 8.1 L Phosphorus Magnesium Total Bilirubin AST Total Creatine Kinase CK-MB (CK-2) Total Protein Albumin Urine Creatinine Urine Chloride 04/04/17 04/04/17 04/04/17 05:12 06:17 12:32 WBC RBC Hgb Hct MCV MCH MCHC RDW Plt Count Lymph % (Auto) [place] % (Auto) Lymph # [place] # Seg Neutrophils % Seg Neuts % (Manual) Lymphocytes % (Manual) Monocytes % (Manual) Seg Neutrophils # Seg Neutrophils # Man Lymphocytes # (Manual) Monocytes # (Manual) Eosinophils # (Manual) PT INR APTT Heparin Anti-Xa Level POC ABG pH POC ABG pCO2 34.3 L POC ABG pO2 Sodium Potassium Chloride Carbon Dioxide BUN Creatinine Glucose POC Glucose 188 H 173 H Calcium Phosphorus Magnesium Total Bilirubin AST Total Creatine Kinase CK-MB (CK-2) Total Protein Albumin Urine Creatinine Urine Chloride 04/04/17 04/04/17 04/05/17 18:19 19:00 00:08 WBC RBC Hgb Hct MCV MCH MCHC RDW Plt Count Lymph % (Auto) [place] % (Auto) Lymph # [place] # Seg Neutrophils % Seg Neuts % (Manual) Lymphocytes % (Manual) Monocytes % (Manual) Seg Neutrophils # Seg Neutrophils # Man Lymphocytes # (Manual) Monocytes # (Manual) Eosinophils # (Manual) PT INR APTT Heparin Anti-Xa Level 0.98 H POC ABG pH POC ABG pCO2 POC ABG pO2 Sodium Potassium Chloride Carbon Dioxide BUN Creatinine Glucose POC Glucose 167 H 181 H Calcium Phosphorus Magnesium Total Bilirubin AST Total Creatine Kinase CK-MB (CK-2) Total Protein Albumin Urine Creatinine Urine Chloride 04/05/17 04/05/17 04/05/17 04:29 05:24 11:42 WBC RBC Hgb Hct MCV MCH MCHC RDW Plt Count Lymph % (Auto) [place] % (Auto) Lymph # [place] # Seg Neutrophils % Seg Neuts % (Manual) Lymphocytes % (Manual) Monocytes % (Manual) Seg Neutrophils # Seg Neutrophils # Man Lymphocytes # (Manual) Monocytes # (Manual) Eosinophils # (Manual) PT INR APTT Heparin Anti-Xa Level POC ABG pH 7.453 H POC ABG pCO2 33.7 L POC ABG pO2 Sodium Potassium Chloride Carbon Dioxide BUN Creatinine Glucose POC Glucose 180 H 166 H Calcium Phosphorus Magnesium Total Bilirubin AST Total Creatine Kinase CK-MB (CK-2) Total Protein Albumin Urine Creatinine Urine Chloride 04/05/17 04/06/17 04/06/17 17:43 00:16 05:08 WBC RBC Hgb Hct MCV MCH MCHC RDW Plt Count Lymph % (Auto) [place] % (Auto) Lymph # [place] # Seg Neutrophils % Seg Neuts % (Manual) Lymphocytes % (Manual) Monocytes % (Manual) Seg Neutrophils # Seg Neutrophils # Man Lymphocytes # (Manual) Monocytes # (Manual) Eosinophils # (Manual) PT INR APTT Heparin Anti-Xa Level POC ABG pH POC ABG pCO2 POC ABG pO2 Sodium Potassium Chloride Carbon Dioxide BUN Creatinine Glucose POC Glucose 165 H 172 H 166 H Calcium Phosphorus Magnesium Total Bilirubin AST Total Creatine Kinase CK-MB (CK-2) Total Protein Albumin Urine Creatinine Urine Chloride 04/06/17 04/06/17 04/06/17 06:30 06:30 12:15 WBC 12.8 H RBC 3.20 L Hgb 10.0 L Hct 30.1 L MCV MCH MCHC RDW 15.8 H Plt Count Lymph % (Auto) [place] % (Auto) Lymph # [place] # Seg Neutrophils % Seg Neuts % (Manual) 97.0 H Lymphocytes % (Manual) 0 L Monocytes % (Manual) Seg Neutrophils # Seg Neutrophils # Man 12.4 H Lymphocytes # (Manual) 0.0 L Monocytes # (Manual) Eosinophils # (Manual) PT INR APTT Heparin Anti-Xa Level POC ABG pH POC ABG pCO2 POC ABG pO2 Sodium 131 L Potassium Chloride 92.5 L Carbon Dioxide 20 L BUN 74 H Creatinine 4.7 H Glucose 185 H POC Glucose 166 H Calcium 8.0 L Phosphorus Magnesium Total Bilirubin AST Total Creatine Kinase CK-MB (CK-2) Total Protein Albumin Urine Creatinine Urine Chloride 04/06/17 04/06/17 04/07/17 17:52 23:16 05:45 WBC RBC Hgb Hct MCV MCH MCHC RDW Plt Count Lymph % (Auto) [place] % (Auto) Lymph # [place] # Seg Neutrophils % Seg Neuts % (Manual) Lymphocytes % (Manual) Monocytes % (Manual) Seg Neutrophils # Seg Neutrophils # Man Lymphocytes # (Manual) Monocytes # (Manual) Eosinophils # (Manual) PT INR APTT Heparin Anti-Xa Level POC ABG pH POC ABG pCO2 POC ABG pO2 Sodium Potassium Chloride Carbon Dioxide BUN Creatinine Glucose POC Glucose 174 H 173 H 154 H Calcium Phosphorus Magnesium Total Bilirubin AST Total Creatine Kinase CK-MB (CK-2) Total Protein Albumin Urine Creatinine Urine Chloride 04/07/17 04/07/17 04/07/17 06:00 06:00 09:21 WBC RBC 3.32 L Hgb 10.3 L Hct 31.3 L MCV MCH MCHC RDW 15.7 H Plt Count 125 L Lymph % (Auto) [place] % (Auto) Lymph # [place] # Seg Neutrophils % Seg Neuts % (Manual) 90.0 H Lymphocytes % (Manual) 5.0 L Monocytes % (Manual) Seg Neutrophils # Seg Neutrophils # Man 9.7 H Lymphocytes # (Manual) 0.5 L Monocytes # (Manual) Eosinophils # (Manual) PT INR APTT Heparin Anti-Xa Level POC ABG pH 7.323 L POC ABG pCO2 POC ABG pO2 Sodium 131 L Potassium Chloride 91.9 L Carbon Dioxide 20 L BUN 62 H Creatinine 3.8 H Glucose 178 H POC Glucose Calcium Phosphorus Magnesium Total Bilirubin AST Total Creatine Kinase CK-MB (CK-2) Total Protein Albumin Urine Creatinine Urine Chloride 04/07/17 04/07/17 04/07/17 12:23 17:20 23:43 WBC RBC Hgb Hct MCV MCH MCHC RDW Plt Count Lymph % (Auto) [place] % (Auto) Lymph # [place] # Seg Neutrophils % Seg Neuts % (Manual) Lymphocytes % (Manual) Monocytes % (Manual) Seg Neutrophils # Seg Neutrophils # Man Lymphocytes # (Manual) Monocytes # (Manual) Eosinophils # (Manual) PT INR APTT Heparin Anti-Xa Level POC ABG pH POC ABG pCO2 POC ABG pO2 Sodium Potassium Chloride Carbon Dioxide BUN Creatinine Glucose POC Glucose 160 H 169 H 176 H Calcium Phosphorus Magnesium Total Bilirubin AST Total Creatine Kinase CK-MB (CK-2) Total Protein Albumin Urine Creatinine Urine Chloride 04/08/17 04/08/17 04/08/17 06:08 08:18 08:18 WBC RBC 3.50 L Hgb 11.0 L Hct 33.7 L MCV 96 H MCH MCHC RDW 15.6 H Plt Count 130 L Lymph % (Auto) [place] % (Auto) Lymph # [place] # Seg Neutrophils % Seg Neuts % (Manual) 88.0 H Lymphocytes % (Manual) 6.0 L Monocytes % (Manual) Seg Neutrophils # Seg Neutrophils # Man 9.2 H Lymphocytes # (Manual) 0.6 L Monocytes # (Manual) Eosinophils # (Manual) PT INR APTT Heparin Anti-Xa Level POC ABG pH POC ABG pCO2 POC ABG pO2 Sodium 127 L Potassium 5.7 H D Chloride 88.5 L Carbon Dioxide 19 L BUN 92 H Creatinine 5.0 H Glucose 176 H POC Glucose 191 H Calcium 8.1 L Phosphorus Magnesium Total Bilirubin AST Total Creatine Kinase CK-MB (CK-2) Total Protein Albumin Urine Creatinine Urine Chloride 04/08/17 04/08/17 04/09/17 08:18 11:52 03:27 WBC RBC Hgb Hct MCV MCH MCHC RDW Plt Count Lymph % (Auto) [place] % (Auto) Lymph # [place] # Seg Neutrophils % Seg Neuts % (Manual) Lymphocytes % (Manual) Monocytes % (Manual) Seg Neutrophils # Seg Neutrophils # Man Lymphocytes # (Manual) Monocytes # (Manual) Eosinophils # (Manual) PT INR APTT Heparin Anti-Xa Level 1.02 H POC ABG pH POC ABG pCO2 POC ABG pO2 Sodium Potassium Chloride Carbon Dioxide BUN Creatinine Glucose POC Glucose 176 H 208 H Calcium Phosphorus Magnesium Total Bilirubin AST Total Creatine Kinase CK-MB (CK-2) Total Protein Albumin Urine Creatinine Urine Chloride 04/09/17 04/09/17 04:45 04:45 WBC RBC 3.21 L Hgb 10.1 L Hct 30.6 L MCV 96 H MCH MCHC RDW 15.3 H Plt Count 127 L Lymph % (Auto) 1.9 L [place] % (Auto) 8.4 H Lymph # 0.2 L [place] # Seg Neutrophils % 89.7 H Seg Neuts % (Manual) Lymphocytes % (Manual) Monocytes % (Manual) Seg Neutrophils # Seg Neutrophils # Man Lymphocytes # (Manual) Monocytes # (Manual) Eosinophils # (Manual) PT INR APTT Heparin Anti-Xa Level POC ABG pH POC ABG pCO2 POC ABG pO2 Sodium 130 L Potassium Chloride 89.8 L Carbon Dioxide BUN 60 H Creatinine 3.3 H Glucose 182 H POC Glucose Calcium 7.5 L Phosphorus Magnesium Total Bilirubin AST Total Creatine Kinase CK-MB (CK-2) Total Protein Albumin Urine Creatinine Urine Chloride
[2017-04-09] MEDS: APRESOLINE PO SCH ×3 (08:56→20:40)
[2017-04-09] MEDS: LOPRESSOR PO SCH ×3 (08:56→20:40)
[2017-04-09] MEDS: PROTONIX PO SCH ×2 (08:56→10:50)
[2017-04-09] MEDS: VITAMIN B-1 PO SCH ×2 (08:56→10:50)
[2017-04-09] MEDS: FOLVITE PO SCH ×2 (08:57→10:50)
--- NOTE | 2017-04-09 09:55 | Progress Note ---
Assessment and Plan Impression: * KATHRIN--oliguric * vanco toxicity vs ATN * HTN * CM ef 40% * Afib with RVR * etoh withdrawal * asp PNA * UTI * Nephrolithiasis Plan: * Patient remains dialysis dependent * Volume overload much improved * k elevated due to tube feeds, place only on novasource * HD q MWF and prn * 2k bath with dialysis * uf as tolerated * continue to monitor for renal recovery * Antibiotic therapy as per primary care team * no hydro seen on CT * strict i/os * avoid nephrotoxins * daily lytes and weight * Adjust meds for creatinine clearance less than 10 mL/m Subjective Date of service: 04/09/17 Principal diagnosis: afib, EtOH abuse, morbid obesity, respiratory failure status post extubatio Interval history: resting in bed, events noted Objective - Exam Narrative Exam: GEN: WDWN, NAD, HEENT: NCAT, PERRL, EOMI, OP CLEAR NECK: SUPPLE, NO THYROMEGALY, NO JVD, NO LAD CVS: irregular irregular, NORMAL S1S2 LUNGS/CHEST: scat rhonchi NORMAL CHEST EXPANSION B, GOOD AIR ENTRY B ABD: SOFT NTND, GBS, NO REBOUND OR GUARDING EXT/SKIN: NO SIGNIFICANT EDEMA OR RASH MSK: FROM X 4 EXTREMITIES NEURO: CN 2-12 GROSSLY INTACT, NO FOCAL DEFICITS - Vital Signs Vital signs: Vital Signs - 12hr 04/08/17 04/08/17 04/08/17 22:00 22:45 22:46 Temperature Pulse Rate 86 69 69 Pulse Rate [ Anterior Bilateral Throughout] Pulse Rate [ Apical] Pulse Rate [ From Monitor] Pulse Rate [ Left Dorsalis Pedis] Pulse Rate [ Left Radial] Pulse Rate [ Right Dorsalis Pedis] Pulse Rate [ Right Radial] Respiratory 18 Rate Respiratory Rate [Anterior Bilateral Throughout] Blood Pressure 153/84 153/84 Blood Pressure [Left Arm] Blood Pressure [Right Arm] O2 Sat by Pulse 99 Oximetry 04/08/17 04/08/17 04/09/17 23:30 23:45 00:00 Temperature Pulse Rate Pulse Rate [ 71 73 Anterior Bilateral Throughout] Pulse Rate [ Apical] Pulse Rate [ From Monitor] Pulse Rate [ Left Dorsalis Pedis] Pulse Rate [ Left Radial] Pulse Rate [ Right Dorsalis Pedis] Pulse Rate [ Right Radial] Respiratory Rate Respiratory 18 18 Rate [Anterior Bilateral Throughout] Blood Pressure Blood Pressure [Left Arm] Blood Pressure [Right Arm] O2 Sat by Pulse 95 Oximetry 04/09/17 04/09/17 04/09/17 03:30 03:39 03:47 Temperature Pulse Rate 86 Pulse Rate [ 86 88 Anterior Bilateral Throughout] Pulse Rate [ Apical] Pulse Rate [ From Monitor] Pulse Rate [ Left Dorsalis Pedis] Pulse Rate [ Left Radial] Pulse Rate [ Right Dorsalis Pedis] Pulse Rate [ Right Radial] Respiratory 18 Rate Respiratory 18 18 Rate [Anterior Bilateral Throughout] Blood Pressure Blood Pressure [Left Arm] Blood Pressure [Right Arm] O2 Sat by Pulse 98 Oximetry 04/09/17 04/09/17 04/09/17 04:10 08:20 08:56 Temperature 98.0 F 98.4 F Pulse Rate 72 Pulse Rate [ Anterior Bilateral Throughout] Pulse Rate [ 0 L Apical] Pulse Rate [ 0 L From Monitor] Pulse Rate [ 0 L Left Dorsalis Pedis] Pulse Rate [ 0 L 72 Left Radial] Pulse Rate [ 0 L Right Dorsalis Pedis] Pulse Rate [ 82 Right Radial] Respiratory 22 16 Rate Respiratory Rate [Anterior Bilateral Throughout] Blood Pressure 128/89 Blood Pressure 0/0 128/89 [Left Arm] Blood Pressure 131/85 [Right Arm] O2 Sat by Pulse 97 97 Oximetry 04/09/17 04/09/17 04/09/17 09:10 09:18 09:36 Temperature Pulse Rate 72 Pulse Rate [ 84 94 H Anterior Bilateral Throughout] Pulse Rate [ Apical] Pulse Rate [ From Monitor] Pulse Rate [ Left Dorsalis Pedis] Pulse Rate [ Left Radial] Pulse Rate [ Right Dorsalis Pedis] Pulse Rate [ Right Radial] Respiratory 24 Rate Respiratory 21 23 Rate [Anterior Bilateral Throughout] Blood Pressure Blood Pressure [Left Arm] Blood Pressure [Right Arm] O2 Sat by Pulse 95 Oximetry 04/09/17 09:37 Temperature Pulse Rate Pulse Rate [ Anterior Bilateral Throughout] Pulse Rate [ Apical] Pulse Rate [ From Monitor] Pulse Rate [ Left Dorsalis Pedis] Pulse Rate [ Left Radial] Pulse Rate [ Right Dorsalis Pedis] Pulse Rate [ Right Radial] Respiratory Rate Respiratory Rate [Anterior Bilateral Throughout] Blood Pressure Blood Pressure [Left Arm] Blood Pressure [Right Arm] O2 Sat by Pulse 95 Oximetry - Lab 04/09/17 04:45 04/09/17 04:45 Most recent lab results Calcium 7.5 mg/dL (8.4-10.2) L 04/09/17 04:45 Phosphorus 4.60 mg/dL (2.5-4.5) H 03/06/17 04:50 Magnesium 1.60 mg/dL (1.7-2.3) L 03/19/17 06:55 Urine Creatinine 86.5 mg/dL (0.1-20.0) H 03/29/17 22:10 Urine Sodium 28 mEq/L 03/29/17 22:10
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
[2017-04-09] MEDS ORDERED: NACL 0.9 (PRIMING MACHINE ONLY DIALYSIS) MC ONE (15:21)
[2017-04-09] MEDS ORDERED: COUMADIN PO SCH (17:00)
[2017-04-09] MEDS: HEPARIN IV PRN (17:52)
[2017-04-09] MEDS: HEPARIN/ 0.45% NACL-25,000 UNIT/500 ML 25,000 UNIT/500 ML BAG IV SCH (22:07)
[2017-04-10] MEDS: DUONEB *Not for PRN Use IH SCH ×5 (03:57→19:21)
[2017-04-10 04:28] LABS: Hematocrit 30.6 % (35.5-45.6); Hemoglobin 10.2 gm/dl (11.8-15.2); Mean Corpuscular HGB Conc 33 % (32-34); Mean Corpuscular Hemoglobin 31 pg (28-32); Platelet Count 105 K/mm3 (140-440); Red Blood Count 3.29 M/mm3 (3.65-5.03); Red Cell Distribution Width 15.7 % (13.2-15.2); White Blood Count 10.9 K/mm3 (4.5-11.0)
[2017-04-10 04:33] LABS: Calcium 7.5 mg/dL (8.4-10.2); Chloride 91.5 mmol/L (98-107); Potassium 3.9 mmol/L (3.6-5.0)
[2017-04-10 04:39] LABS: INR 1.24 (0.87-1.13)
[2017-04-10 04:56] LABS: Mean Corpuscular Volume 94 fl (84-94)
[2017-04-10] MEDS: CARDIZEM PO SCH ×3 (06:11→17:13)
[2017-04-10] MEDS: NOVOLOG SUB-Q SCH ×4 (07:46→17:32)
--- NOTE | 2017-04-10 10:43 | Progress Note ---
Assessment and Plan Impression: * KATHRIN--oliguric * vanco toxicity vs ATN * HTN * CM ef 40% * Afib with RVR * etoh withdrawal * asp PNA * UTI * Nephrolithiasis Plan: * Patient remains dialysis dependent * Volume overload much improved * HD q MWF and prn * 2k bath with dialysis * uf as tolerated * continue to monitor for renal recovery * Antibiotic therapy as per primary care team * no hydro seen on CT * strict i/os * avoid nephrotoxins * daily lytes and weight * Adjust meds for creatinine clearance less than 10 mL/m Subjective Date of service: 04/10/17 Principal diagnosis: afib, EtOH abuse, morbid obesity, respiratory failure status post extubatio Interval history: resting in bed, events noted Objective - Exam Narrative Exam: GEN: WDWN, NAD, HEENT: NCAT, PERRL, EOMI, OP CLEAR NECK: SUPPLE, NO THYROMEGALY, NO JVD, NO LAD CVS: irregular irregular, NORMAL S1S2 LUNGS/CHEST: scat rhonchi NORMAL CHEST EXPANSION B, GOOD AIR ENTRY B ABD: SOFT NTND, GBS, NO REBOUND OR GUARDING EXT/SKIN: NO SIGNIFICANT EDEMA OR RASH MSK: FROM X 4 EXTREMITIES NEURO: CN 2-12 GROSSLY INTACT, NO FOCAL DEFICITS - Vital Signs Vital signs: Vital Signs - 12hr 04/09/17 04/09/17 04/10/17 23:55 23:58 00:10 Temperature Pulse Rate 103 H Pulse Rate [ 78 78 Anterior Bilateral Throughout] Pulse Rate [ Apical] Pulse Rate [ Left Radial] Respiratory Rate Respiratory 19 19 Rate [Anterior Bilateral Throughout] Blood Pressure [Left Arm] O2 Sat by Pulse Oximetry 04/10/17 04/10/17 04/10/17 01:26 06:51 07:41 Temperature 98.6 F 98.1 F Pulse Rate 80 Pulse Rate [ Anterior Bilateral Throughout] Pulse Rate [ 80 Apical] Pulse Rate [ 111 H 85 Left Radial] Respiratory 20 18 20 Rate Respiratory Rate [Anterior Bilateral Throughout] Blood Pressure 106/70 147/91 [Left Arm] O2 Sat by Pulse 92 91 95 Oximetry 04/10/17 07:50 Temperature 97.6 F Pulse Rate Pulse Rate [ Anterior Bilateral Throughout] Pulse Rate [ Apical] Pulse Rate [ 78 Left Radial] Respiratory 20 Rate Respiratory Rate [Anterior Bilateral Throughout] Blood Pressure 135/86 [Left Arm] O2 Sat by Pulse 94 Oximetry - Lab 04/10/17 04:30 04/10/17 Unknown Most recent lab results Calcium 7.5 mg/dL (8.4-10.2) L 04/10/17 Unknown Phosphorus 4.60 mg/dL (2.5-4.5) H 03/06/17 04:50 Magnesium 1.60 mg/dL (1.7-2.3) L 03/19/17 06:55 Urine Creatinine 86.5 mg/dL (0.1-20.0) H 03/29/17 22:10 Urine Sodium 28 mEq/L 03/29/17 22:10
[2017-04-10] MEDS: FOLVITE PO SCH (10:52)
[2017-04-10] MEDS: LOPRESSOR PO SCH ×3 (10:52→21:48)
[2017-04-10] MEDS: ZESTRIL PO SCH (10:52)
[2017-04-10] MEDS: APRESOLINE PO SCH ×3 (10:53→21:49)
[2017-04-10] MEDS: PROTONIX PO SCH (10:53)
[2017-04-10] MEDS: VITAMIN B-1 PO SCH (10:53)
[2017-04-10] MEDS: HEPARIN/ 0.45% NACL-25,000 UNIT/500 ML 25,000 UNIT/500 ML BAG IV SCH ×2 (12:29→17:15)
--- NOTE | 2017-04-10 15:51 | Progress Note ---
Assessment and Plan 51 y/o male, noncompliant, with systolic heart failure, admitted with afib with RVR, and possible ETOH abuse, now with recurrent afib with RVR and likely aspiration pneumonia on the right resulting in acute respiratory failure, now with recurrent respiratory failure 1. Wean FiO2 as tolerated. To my knowledge, patient does not have home O2 2. Would encourage patient to continue bipap therapy. Patient does have systolic heart failure, could have central sleep apnea. Please continue to document if patient refuses. Also of note the order is not a PRN, it is scheduled for QHS 3. Rate control 4. HD per renal Subjective Principal diagnosis: afib, EtOH abuse, morbid obesity, respiratory failure status post extubatio Interval history: Oxygen weaned down to 1.5 liters, sat in the mid 90's. Per chart, patient refused bipap last night. Objective Vital Signs - 12hr 04/10/17 04/10/17 04/10/17 06:51 07:41 07:50 Temperature 98.1 F 97.6 F Pulse Rate 80 Pulse Rate [ Anterior Bilateral Throughout] Pulse Rate [ 80 Apical] Pulse Rate [ 85 78 Left Radial] Respiratory 18 20 20 Rate Respiratory Rate [Anterior Bilateral Throughout] Blood Pressure 147/91 135/86 [Left Arm] O2 Sat by Pulse 91 95 94 Oximetry 04/10/17 04/10/17 04/10/17 12:13 13:09 13:23 Temperature 97.0 F L Pulse Rate Pulse Rate [ 103 H 104 H Anterior Bilateral Throughout] Pulse Rate [ Apical] Pulse Rate [ 99 H Left Radial] Respiratory 18 Rate Respiratory 20 20 Rate [Anterior Bilateral Throughout] Blood Pressure 154/97 [Left Arm] O2 Sat by Pulse 95 93 Oximetry Constitutional: no acute distress, alert Eyes: non-icteric ENT: oropharynx moist Neck: supple, no JVD Effort: normal, mildly labored Ascultation: Right: rales (mostly on the right), Bilateral: clear, diminished breath sounds, wheezes, rhonchi (sporadic) Percussion: Bilateral: not dull Cardiovascular: irregular rhythm Gastrointestinal: normoactive bowel sounds, soft, non-tender, non-distended, other (obese) Integumentary: normal Extremities: no cyanosis, no edema, pink and warm Neurologic: non-focal exam, pupils equal and round, other Psychiatric: mood appropriate, affect normal, anxious CBC and BMP: 04/10/17 04:30 04/10/17 Unknown ABG, PT/INR, D-dimer: ABG POC ABG pH 7.323 (7.35-7.45) L 04/07/17 09:21 POC ABG pCO2 41.7 (35-45) 04/07/17 09:21 POC ABG pO2 99 (80-105) 04/07/17 09:21 POC ABG HCO3 21.7 04/07/17 09:21 POC ABG Total CO2 23 04/07/17 09:21 POC ABG O2 Sat 97 04/07/17 09:21 PT/INR, D-dimer PT 16.2 Sec. (12.2-14.9) H 04/10/17 03:00 INR 1.24 (0.87-1.13) H 04/10/17 03:00 Abnormal lab findings: Abnormal Labs 02/27/17 02/27/17 02/27/17 03:51 05:41 08:49 WBC RBC Hgb Hct MCV MCH MCHC RDW Plt Count Lymph % (Auto) [place] % (Auto) Lymph # [place] # Seg Neutrophils % Seg Neuts % (Manual) Lymphocytes % (Manual) Monocytes % (Manual) Seg Neutrophils # Seg Neutrophils # Man Lymphocytes # (Manual) Monocytes # (Manual) Eosinophils # (Manual) PT INR APTT Heparin Anti-Xa Level POC ABG pH POC ABG pCO2 POC ABG pO2 Sodium Potassium Chloride Carbon Dioxide BUN Creatinine Glucose POC Glucose 131 H 139 H Calcium Phosphorus Magnesium Total Bilirubin AST Total Creatine Kinase 171 H CK-MB (CK-2) 5.8 H Total Protein Albumin Urine Creatinine Urine Chloride 02/27/17 02/27/17 02/27/17 13:05 13:08 16:07 WBC RBC Hgb Hct MCV MCH MCHC RDW Plt Count Lymph % (Auto) [place] % (Auto) Lymph # [place] # Seg Neutrophils % Seg Neuts % (Manual) Lymphocytes % (Manual) Monocytes % (Manual) Seg Neutrophils # Seg Neutrophils # Man Lymphocytes # (Manual) Monocytes # (Manual) Eosinophils # (Manual) PT INR APTT Heparin Anti-Xa Level POC ABG pH POC ABG pCO2 POC ABG pO2 Sodium Potassium Chloride Carbon Dioxide BUN Creatinine Glucose POC Glucose 146 H 138 H Calcium Phosphorus Magnesium Total Bilirubin AST Total Creatine Kinase CK-MB (CK-2) 4.7 H Total Protein Albumin Urine Creatinine Urine Chloride 02/27/17 02/28/17 02/28/17 21:40 03:32 03:32 WBC RBC Hgb 15.9 H Hct 47.6 H MCV 100 H MCH 34 H MCHC RDW 15.4 H Plt Count Lymph % (Auto) [place] % (Auto) Lymph # [place] # Seg Neutrophils % Seg Neuts % (Manual) Lymphocytes % (Manual) Monocytes % (Manual) Seg Neutrophils # Seg Neutrophils # Man Lymphocytes # (Manual) Monocytes # (Manual) Eosinophils # (Manual) PT INR APTT Heparin Anti-Xa Level POC ABG pH POC ABG pCO2 POC ABG pO2 Sodium Potassium Chloride 95.0 L Carbon Dioxide BUN 8 L Creatinine 0.6 L Glucose 126 H POC Glucose 140 H Calcium Phosphorus Magnesium 1.60 L Total Bilirubin AST Total Creatine Kinase CK-MB (CK-2) Total Protein Albumin Urine Creatinine Urine Chloride 02/28/17 02/28/17 02/28/17 07:55 11:57 15:40 WBC RBC Hgb Hct MCV MCH MCHC RDW Plt Count Lymph % (Auto) [place] % (Auto) Lymph # [place] # Seg Neutrophils % Seg Neuts % (Manual) Lymphocytes % (Manual) Monocytes % (Manual) Seg Neutrophils # Seg Neutrophils # Man Lymphocytes # (Manual) Monocytes # (Manual) Eosinophils # (Manual) PT INR APTT Heparin Anti-Xa Level POC ABG pH POC ABG pCO2 POC ABG pO2 Sodium Potassium Chloride Carbon Dioxide BUN Creatinine Glucose POC Glucose 134 H 174 H 158 H Calcium Phosphorus Magnesium Total Bilirubin AST Total Creatine Kinase CK-MB (CK-2) Total Protein Albumin Urine Creatinine Urine Chloride 02/28/17 03/01/17 03/01/17 21:51 07:42 10:41 WBC RBC Hgb Hct MCV MCH MCHC RDW Plt Count Lymph % (Auto) [place] % (Auto) Lymph # [place] # Seg Neutrophils % Seg Neuts % (Manual) Lymphocytes % (Manual) Monocytes % (Manual) Seg Neutrophils # Seg Neutrophils # Man Lymphocytes # (Manual) Monocytes # (Manual) Eosinophils # (Manual) PT INR APTT Heparin Anti-Xa Level POC ABG pH POC ABG pCO2 POC ABG pO2 Sodium Potassium Chloride Carbon Dioxide BUN Creatinine Glucose POC Glucose 127 H 146 H 176 H Calcium Phosphorus Magnesium Total Bilirubin AST Total Creatine Kinase CK-MB (CK-2) Total Protein Albumin Urine Creatinine Urine Chloride 03/01/17 03/01/17 03/02/17 15:37 23:35 08:11 WBC RBC Hgb Hct MCV MCH MCHC RDW Plt Count Lymph % (Auto) [place] % (Auto) Lymph # [place] # Seg Neutrophils % Seg Neuts % (Manual) Lymphocytes % (Manual) Monocytes % (Manual) Seg Neutrophils # Seg Neutrophils # Man Lymphocytes # (Manual) Monocytes # (Manual) Eosinophils # (Manual) PT INR APTT Heparin Anti-Xa Level POC ABG pH POC ABG pCO2 POC ABG pO2 Sodium Potassium Chloride Carbon Dioxide BUN Creatinine Glucose POC Glucose 158 H 139 H 127 H Calcium Phosphorus Magnesium Total Bilirubin AST Total Creatine Kinase CK-MB (CK-2) Total Protein Albumin Urine Creatinine Urine Chloride 03/02/17 03/02/17 03/02/17 09:12 12:03 12:37 WBC 17.9 H RBC Hgb 16.3 H Hct 49.3 H MCV 101 H MCH 33 H MCHC RDW Plt Count Lymph % (Auto) 10.6 L [place] % (Auto) 13.4 H Lymph # [place] # 2.4 H Seg Neutrophils % 75.2 H Seg Neuts % (Manual) Lymphocytes % (Manual) Monocytes % (Manual) Seg Neutrophils # 13.5 H Seg Neutrophils # Man Lymphocytes # (Manual) Monocytes # (Manual) Eosinophils # (Manual) PT INR APTT Heparin Anti-Xa Level POC ABG pH POC ABG pCO2 POC ABG pO2 Sodium 135 L Potassium Chloride 90.3 L Carbon Dioxide 32 H BUN Creatinine 0.6 L Glucose 124 H POC Glucose 145 H Calcium Phosphorus Magnesium Total Bilirubin AST Total Creatine Kinase CK-MB (CK-2) Total Protein Albumin Urine Creatinine Urine Chloride 03/02/17 03/02/17 03/03/17 16:09 22:41 03:59 WBC 14.7 H RBC Hgb Hct MCV 100 H MCH 33 H MCHC RDW Plt Count Lymph % (Auto) 10.9 L [place] % (Auto) 14.8 H Lymph # [place] # 2.2 H Seg Neutrophils % 73.6 H Seg Neuts % (Manual) Lymphocytes % (Manual) Monocytes % (Manual) Seg Neutrophils # 10.8 H Seg Neutrophils # Man Lymphocytes # (Manual) Monocytes # (Manual) Eosinophils # (Manual) PT INR APTT Heparin Anti-Xa Level POC ABG pH POC ABG pCO2 POC ABG pO2 Sodium Potassium Chloride Carbon Dioxide BUN Creatinine Glucose POC Glucose 141 H 127 H Calcium Phosphorus Magnesium Total Bilirubin AST Total Creatine Kinase CK-MB (CK-2) Total Protein Albumin Urine Creatinine Urine Chloride 03/03/17 03/03/17 03/03/17 04:07 09:19 11:33 WBC RBC Hgb Hct MCV MCH MCHC RDW Plt Count Lymph % (Auto) [place] % (Auto) Lymph # [place] # Seg Neutrophils % Seg Neuts % (Manual) Lymphocytes % (Manual) Monocytes % (Manual) Seg Neutrophils # Seg Neutrophils # Man Lymphocytes # (Manual) Monocytes # (Manual) Eosinophils # (Manual) PT INR APTT Heparin Anti-Xa Level POC ABG pH POC ABG pCO2 POC ABG pO2 Sodium Potassium 3.1 L D Chloride 91.1 L Carbon Dioxide BUN Creatinine 0.7 L Glucose 136 H POC Glucose 123 H 153 H Calcium Phosphorus Magnesium Total Bilirubin AST Total Creatine Kinase CK-MB (CK-2) Total Protein Albumin Urine Creatinine Urine Chloride 03/03/17 03/04/17 03/04/17 15:46 05:58 06:04 WBC 11.4 H RBC Hgb Hct 46.0 H MCV 101 H MCH 33 H MCHC RDW Plt Count Lymph % (Auto) [place] % (Auto) Lymph # [place] # Seg Neutrophils % Seg Neuts % (Manual) 71.0 H Lymphocytes % (Manual) 13.0 L Monocytes % (Manual) 13.0 H Seg Neutrophils # Seg Neutrophils # Man 8.1 H Lymphocytes # (Manual) Monocytes # (Manual) 1.5 H Eosinophils # (Manual) PT INR APTT Heparin Anti-Xa Level POC ABG pH POC ABG pCO2 POC ABG pO2 Sodium Potassium 3.3 L Chloride 92.2 L Carbon Dioxide 33 H BUN Creatinine 0.6 L Glucose 133 H POC Glucose 131 H Calcium Phosphorus Magnesium Total Bilirubin AST Total Creatine Kinase CK-MB (CK-2) Total Protein Albumin Urine Creatinine Urine Chloride 03/04/17 03/04/17 03/04/17 07:54 11:24 16:00 WBC RBC Hgb Hct MCV MCH MCHC RDW Plt Count Lymph % (Auto) [place] % (Auto) Lymph # [place] # Seg Neutrophils % Seg Neuts % (Manual) Lymphocytes % (Manual) Monocytes % (Manual) Seg Neutrophils # Seg Neutrophils # Man Lymphocytes # (Manual) Monocytes # (Manual) Eosinophils # (Manual) PT INR APTT Heparin Anti-Xa Level POC ABG pH POC ABG pCO2 POC ABG pO2 Sodium Potassium Chloride Carbon Dioxide BUN Creatinine Glucose POC Glucose 131 H 134 H 116 H Calcium Phosphorus Magnesium Total Bilirubin AST Total Creatine Kinase CK-MB (CK-2) Total Protein Albumin Urine Creatinine Urine Chloride 03/05/17 03/05/17 03/05/17 00:39 07:03 07:03 WBC 11.4 H RBC Hgb 15.4 H Hct 46.3 H MCV 100 H MCH 33 H MCHC RDW Plt Count Lymph % (Auto) [place] % (Auto) Lymph # [place] # Seg Neutrophils % Seg Neuts % (Manual) Lymphocytes % (Manual) Monocytes % (Manual) 20.0 H Seg Neutrophils # Seg Neutrophils # Man Lymphocytes # (Manual) Monocytes # (Manual) 2.3 H Eosinophils # (Manual) PT INR APTT Heparin Anti-Xa Level POC ABG pH POC ABG pCO2 POC ABG pO2 Sodium Potassium 3.3 L Chloride 95.2 L Carbon Dioxide 31 H BUN Creatinine 0.6 L Glucose 137 H POC Glucose 116 H Calcium Phosphorus Magnesium Total Bilirubin AST Total Creatine Kinase CK-MB (CK-2) Total Protein Albumin Urine Creatinine Urine Chloride 03/05/17 03/05/17 03/05/17 08:05 12:15 16:07 WBC RBC Hgb Hct MCV MCH MCHC RDW Plt Count Lymph % (Auto) [place] % (Auto) Lymph # [place] # Seg Neutrophils % Seg Neuts % (Manual) Lymphocytes % (Manual) Monocytes % (Manual) Seg Neutrophils # Seg Neutrophils # Man Lymphocytes # (Manual) Monocytes # (Manual) Eosinophils # (Manual) PT INR APTT Heparin Anti-Xa Level POC ABG pH POC ABG pCO2 POC ABG pO2 Sodium Potassium Chloride Carbon Dioxide BUN Creatinine Glucose POC Glucose 134 H 150 H 113 H Calcium Phosphorus Magnesium Total Bilirubin AST Total Creatine Kinase CK-MB (CK-2) Total Protein Albumin Urine Creatinine Urine Chloride 03/06/17 03/06/17 03/06/17 04:45 04:50 11:50 WBC 11.8 H RBC Hgb 15.7 H Hct 47.1 H MCV 98 H MCH 33 H MCHC RDW Plt Count Lymph % (Auto) [place] % (Auto) Lymph # [place] # Seg Neutrophils % Seg Neuts % (Manual) Lymphocytes % (Manual) 13.0 L Monocytes % (Manual) 17.0 H Seg Neutrophils # Seg Neutrophils # Man Lymphocytes # (Manual) Monocytes # (Manual) 2.0 H Eosinophils # (Manual) PT INR APTT Heparin Anti-Xa Level POC ABG pH POC ABG pCO2 POC ABG pO2 Sodium Potassium 3.2 L Chloride 94.9 L Carbon Dioxide 31 H BUN Creatinine 0.6 L Glucose 125 H POC Glucose 124 H Calcium Phosphorus 4.60 H Magnesium Total Bilirubin AST Total Creatine Kinase CK-MB (CK-2) Total Protein Albumin Urine Creatinine Urine Chloride 03/06/17 03/06/17 03/07/17 15:43 22:07 04:30 WBC RBC Hgb Hct MCV MCH MCHC RDW Plt Count Lymph % (Auto) [place] % (Auto) Lymph # [place] # Seg Neutrophils % Seg Neuts % (Manual) Lymphocytes % (Manual) Monocytes % (Manual) Seg Neutrophils # Seg Neutrophils # Man Lymphocytes # (Manual) Monocytes # (Manual) Eosinophils # (Manual) PT INR APTT Heparin Anti-Xa Level POC ABG pH POC ABG pCO2 POC ABG pO2 Sodium Potassium 3.4 L Chloride 95.1 L Carbon Dioxide BUN Creatinine 0.6 L Glucose 129 H POC Glucose 121 H 109 H Calcium Phosphorus Magnesium Total Bilirubin AST Total Creatine Kinase CK-MB (CK-2) Total Protein Albumin Urine Creatinine Urine Chloride 03/07/17 03/07/17 03/07/17 04:37 12:02 15:03 WBC 11.3 H RBC Hgb Hct MCV 99 H MCH 34 H MCHC RDW Plt Count Lymph % (Auto) [place] % (Auto) 14.6 H Lymph # [place] # 1.6 H Seg Neutrophils % Seg Neuts % (Manual) Lymphocytes % (Manual) Monocytes % (Manual) Seg Neutrophils # Seg Neutrophils # Man Lymphocytes # (Manual) Monocytes # (Manual) Eosinophils # (Manual) PT INR APTT Heparin Anti-Xa Level POC ABG pH POC ABG pCO2 POC ABG pO2 Sodium Potassium Chloride Carbon Dioxide BUN Creatinine Glucose POC Glucose 126 H 108 H Calcium Phosphorus Magnesium Total Bilirubin AST Total Creatine Kinase CK-MB (CK-2) Total Protein Albumin Urine Creatinine Urine Chloride 03/08/17 03/08/17 03/08/17 04:58 04:58 08:22 WBC RBC Hgb 16.4 H Hct 49.3 H MCV 99 H MCH 33 H MCHC RDW Plt Count Lymph % (Auto) [place] % (Auto) 12.1 H Lymph # [place] # 1.2 H Seg Neutrophils % 71.4 H Seg Neuts % (Manual) Lymphocytes % (Manual) Monocytes % (Manual) Seg Neutrophils # Seg Neutrophils # Man Lymphocytes # (Manual) Monocytes # (Manual) Eosinophils # (Manual) PT INR APTT Heparin Anti-Xa Level POC ABG pH POC ABG pCO2 POC ABG pO2 Sodium 136 L Potassium Chloride 93.7 L Carbon Dioxide BUN Creatinine 0.5 L Glucose 127 H POC Glucose 106 H Calcium Phosphorus Magnesium Total Bilirubin AST 50 H Total Creatine Kinase CK-MB (CK-2) Total Protein Albumin 2.7 L Urine Creatinine Urine Chloride 03/08/17 03/08/17 03/09/17 12:14 17:50 05:26 WBC 11.8 H RBC Hgb 16.3 H Hct 49.1 H MCV 98 H MCH 33 H MCHC RDW Plt Count Lymph % (Auto) [place] % (Auto) 10.8 H Lymph # [place] # 1.3 H Seg Neutrophils % 71.8 H Seg Neuts % (Manual) Lymphocytes % (Manual) Monocytes % (Manual) Seg Neutrophils # 8.4 H Seg Neutrophils # Man Lymphocytes # (Manual) Monocytes # (Manual) Eosinophils # (Manual) PT INR APTT Heparin Anti-Xa Level POC ABG pH POC ABG pCO2 POC ABG pO2 Sodium Potassium Chloride Carbon Dioxide BUN Creatinine Glucose POC Glucose 115 H 117 H Calcium Phosphorus Magnesium Total Bilirubin AST Total Creatine Kinase CK-MB (CK-2) Total Protein Albumin Urine Creatinine Urine Chloride 03/09/17 03/09/17 03/09/17 05:26 12:39 16:19 WBC RBC Hgb Hct MCV MCH MCHC RDW Plt Count Lymph % (Auto) [place] % (Auto) Lymph # [place] # Seg Neutrophils % Seg Neuts % (Manual) Lymphocytes % (Manual) Monocytes % (Manual) Seg Neutrophils # Seg Neutrophils # Man Lymphocytes # (Manual) Monocytes # (Manual) Eosinophils # (Manual) PT INR APTT Heparin Anti-Xa Level POC ABG pH POC ABG pCO2 POC ABG pO2 Sodium Potassium Chloride 94.7 L Carbon Dioxide BUN Creatinine 0.7 L Glucose 115 H POC Glucose 111 H 116 H Calcium Phosphorus Magnesium Total Bilirubin AST Total Creatine Kinase CK-MB (CK-2) Total Protein Albumin Urine Creatinine Urine Chloride 03/09/17 03/10/17 03/10/17 22:48 08:27 11:46 WBC RBC Hgb Hct MCV MCH MCHC RDW Plt Count Lymph % (Auto) [place] % (Auto) Lymph # [place] # Seg Neutrophils % Seg Neuts % (Manual) Lymphocytes % (Manual) Monocytes % (Manual) Seg Neutrophils # Seg Neutrophils # Man Lymphocytes # (Manual) Monocytes # (Manual) Eosinophils # (Manual) PT INR APTT Heparin Anti-Xa Level POC ABG pH POC ABG pCO2 POC ABG pO2 Sodium Potassium Chloride Carbon Dioxide BUN Creatinine Glucose POC Glucose 106 H 107 H 116 H Calcium Phosphorus Magnesium Total Bilirubin AST Total Creatine Kinase CK-MB (CK-2) Total Protein Albumin Urine Creatinine Urine Chloride 03/10/17 03/10/17 03/11/17 17:01 21:46 08:10 WBC RBC Hgb Hct MCV MCH MCHC RDW Plt Count Lymph % (Auto) [place] % (Auto) Lymph # [place] # Seg Neutrophils % Seg Neuts % (Manual) Lymphocytes % (Manual) Monocytes % (Manual) Seg Neutrophils # Seg Neutrophils # Man Lymphocytes # (Manual) Monocytes # (Manual) Eosinophils # (Manual) PT INR APTT Heparin Anti-Xa Level POC ABG pH POC ABG pCO2 POC ABG pO2 Sodium Potassium Chloride Carbon Dioxide BUN Creatinine Glucose POC Glucose 115 H 135 H 109 H Calcium Phosphorus Magnesium Total Bilirubin AST Total Creatine Kinase CK-MB (CK-2) Total Protein Albumin Urine Creatinine Urine Chloride 03/11/17 03/11/17 03/11/17 12:12 17:45 22:14 WBC RBC Hgb Hct MCV MCH MCHC RDW Plt Count Lymph % (Auto) [place] % (Auto) Lymph # [place] # Seg Neutrophils % Seg Neuts % (Manual) Lymphocytes % (Manual) Monocytes % (Manual) Seg Neutrophils # Seg Neutrophils # Man Lymphocytes # (Manual) Monocytes # (Manual) Eosinophils # (Manual) PT INR APTT Heparin Anti-Xa Level POC ABG pH POC ABG pCO2 POC ABG pO2 Sodium Potassium Chloride Carbon Dioxide BUN Creatinine Glucose POC Glucose 136 H 126 H 132 H Calcium Phosphorus Magnesium Total Bilirubin AST Total Creatine Kinase CK-MB (CK-2) Total Protein Albumin Urine Creatinine Urine Chloride 03/12/17 03/12/17 03/12/17 08:44 08:44 12:56 WBC 14.9 H RBC 5.04 H Hgb 16.1 H Hct 48.8 H MCV 97 H MCH MCHC RDW Plt Count Lymph % (Auto) 11.7 L [place] % (Auto) 11.6 H Lymph # [place] # 1.7 H Seg Neutrophils % 75.5 H Seg Neuts % (Manual) Lymphocytes % (Manual) Monocytes % (Manual) Seg Neutrophils # 11.2 H Seg Neutrophils # Man Lymphocytes # (Manual) Monocytes # (Manual) Eosinophils # (Manual) PT INR APTT Heparin Anti-Xa Level POC ABG pH POC ABG pCO2 POC ABG pO2 Sodium Potassium 3.2 L Chlor[place] 93.4 L Carbon Dioxide BUN Creatinine 0.6 L Glucose 121 H POC Glucose 129 H Calcium Phosphorus Magnesium Total Bilirubin 1.30 H AST Total Creatine Kinase CK-MB (CK-2) Total Protein Albumin 3.2 L Urine Creatinine Urine Chloride 03/12/17 03/13/17 03/13/17 17:13 09:05 11:36 WBC RBC Hgb Hct MCV MCH MCHC RDW Plt Count Lymph % (Auto) [place] % (Auto) Lymph # [place] # Seg Neutrophils % Seg Neuts % (Manual) Lymphocytes % (Manual) Monocytes % (Manual) Seg Neutrophils # Seg Neutrophils # Man Lymphocytes # (Manual) Monocytes # (Manual) Eosinophils # (Manual) PT INR APTT Heparin Anti-Xa Level POC ABG pH POC ABG pCO2 POC ABG pO2 Sodium Potassium Chloride Carbon Dioxide BUN Creatinine Glucose POC Glucose 161 H 110 H 126 H Calcium Phosphorus Magnesium Total Bilirubin AST Total Creatine Kinase CK-MB (CK-2) Total Protein Albumin Urine Creatinine Urine Chloride 03/13/17 03/13/17 03/14/17 16:17 21:43 08:40 WBC RBC Hgb Hct MCV MCH MCHC RDW Plt Count Lymph % (Auto) [place] % (Auto) Lymph # [place] # Seg Neutrophils % Seg Neuts % (Manual) Lymphocytes % (Manual) Monocytes % (Manual) Seg Neutrophils # Seg Neutrophils # Man Lymphocytes # (Manual) Monocytes # (Manual) Eosinophils # (Manual) PT INR APTT Heparin Anti-Xa Level POC ABG pH POC ABG pCO2 POC ABG pO2 Sodium Potassium Chloride Carbon Dioxide BUN Creatinine Glucose POC Glucose 126 H 115 H 106 H Calcium Phosphorus Magnesium Total Bilirubin AST Total Creatine Kinase CK-MB (CK-2) Total Protein Albumin Urine Creatinine Urine Chloride 03/14/17 03/14/17 03/14/17 12:01 17:39 20:30 WBC RBC Hgb Hct MCV MCH MCHC RDW Plt Count Lymph % (Auto) [place] % (Auto) Lymph # [place] # Seg Neutrophils % Seg Neuts % (Manual) Lymphocytes % (Manual) Monocytes % (Manual) Seg Neutrophils # Seg Neutrophils # Man Lymphocytes # (Manual) Monocytes # (Manual) Eosinophils # (Manual) PT INR APTT Heparin Anti-Xa Level POC ABG pH POC ABG pCO2 POC ABG pO2 Sodium Potassium Chloride Carbon Dioxide BUN Creatinine Glucose POC Glucose 116 H 192 H 122 H Calcium Phosphorus Magnesium Total Bilirubin AST Total Creatine Kinase CK-MB (CK-2) Total Protein Albumin Urine Creatinine Urine Chloride 03/15/17 03/15/17 03/15/17 01:12 06:49 08:46 WBC 23.9 H RBC Hgb 16.1 H Hct 49.4 H MCV 100 H D MCH 33 H MCHC RDW Plt Count Lymph % (Auto) [place] % (Auto) Lymph # [place] # Seg Neutrophils % Seg Neuts % (Manual) 92.0 H Lymphocytes % (Manual) 4.0 L Monocytes % (Manual) Seg Neutrophils # Seg Neutrophils # Man 22.0 H Lymphocytes # (Manual) 1.0 L Monocytes # (Manual) 1.0 H Eosinophils # (Manual) PT INR APTT Heparin Anti-Xa Level POC ABG pH POC ABG pCO2 POC ABG pO2 Sodium Potassium Chloride 91.0 L Carbon Dioxide 33 H BUN 45 H Creatinine Glucose 160 H POC Glucose 147 H Calcium Phosphorus Magnesium Total Bilirubin AST 41 H Total Creatine Kinase CK-MB (CK-2) Total Protein Albumin 3.0 L Urine Creatinine Urine Chloride 03/15/17 03/15/17 03/15/17 12:11 16:00 20:51 WBC RBC Hgb Hct MCV MCH MCHC RDW Plt Count Lymph % (Auto) [place] % (Auto) Lymph # [place] # Seg Neutrophils % Seg Neuts % (Manual) Lymphocytes % (Manual) Monocytes % (Manual) Seg Neutrophils # Seg Neutrophils # Man Lymphocytes # (Manual) Monocytes # (Manual) Eosinophils # (Manual) PT INR APTT Heparin Anti-Xa Level POC ABG pH POC ABG pCO2 POC ABG pO2 Sodium Potassium Chloride Carbon Dioxide BUN Creatinine Glucose POC Glucose 144 H 134 H 148 H Calcium Phosphorus Magnesium Total Bilirubin AST Total Creatine Kinase CK-MB (CK-2) Total Protein Albumin Urine Creatinine Urine Chloride 03/16/17 03/16/17 03/16/17 05:59 06:02 09:15 WBC 20.9 H RBC Hgb Hct 45.8 H MCV 99 H MCH 33 H MCHC RDW Plt Count Lymph % (Auto) [place] % (Auto) Lymph # [place] # Seg Neutrophils % Seg Neuts % (Manual) 92.0 H Lymphocytes % (Manual) 4.0 L Monocytes % (Manual) Seg Neutrophils # Seg Neutrophils # Man 19.2 H Lymphocytes # (Manual) 0.8 L Monocytes # (Manual) Eosinophils # (Manual) PT INR APTT Heparin Anti-Xa Level POC ABG pH POC ABG pCO2 POC ABG pO2 Sodium Potassium Chloride 92.3 L Carbon Dioxide 34 H BUN 44 H Creatinine Glucose 150 H POC Glucose 127 H Calcium Phosphorus Magnesium Total Bilirubin AST Total Creatine Kinase CK-MB (CK-2) Total Protein Albumin Urine Creatinine Urine Chloride 03/16/17 03/16/17 03/17/17 11:59 18:08 07:06 WBC RBC Hgb Hct MCV MCH MCHC RDW Plt Count Lymph % (Auto) [place] % (Auto) Lymph # [place] # Seg Neutrophils % Seg Neuts % (Manual) Lymphocytes % (Manual) Monocytes % (Manual) Seg Neutrophils # Seg Neutrophils # Man Lymphocytes # (Manual) Monocytes # (Manual) Eosinophils # (Manual) PT INR APTT Heparin Anti-Xa Level POC ABG pH POC ABG pCO2 POC ABG pO2 Sodium Potassium Chloride 93.3 L Carbon Dioxide 35 H BUN 31 H Creatinine Glucose 132 H POC Glucose 147 H 138 H Calcium Phosphorus Magnesium Total Bilirubin AST Total Creatine Kinase CK-MB (CK-2) Total Protein Albumin Urine Creatinine Urine Chloride 03/17/17 03/17/17 03/17/17 07:06 07:14 12:35 WBC 16.6 H RBC Hgb 15.6 H Hct 47.5 H MCV 99 H MCH 33 H MCHC RDW Plt Count Lymph % (Auto) 8.4 L [place] % (Auto) 8.1 H Lymph # [place] # 1.3 H Seg Neutrophils % 81.8 H Seg Neuts % (Manual) Lymphocytes % (Manual) Monocytes % (Manual) Seg Neutrophils # 13.6 H Seg Neutrophils # Man Lymphocytes # (Manual) Monocytes # (Manual) Eosinophils # (Manual) PT INR APTT Heparin Anti-Xa Level POC ABG pH POC ABG pCO2 POC ABG pO2 Sodium Potassium Chloride Carbon Dioxide BUN Creatinine Glucose POC Glucose 119 H 132 H Calcium Phosphorus Magnesium Total Bilirubin AST Total Creatine Kinase CK-MB (CK-2) Total Protein Albumin Urine Creatinine Urine Chloride 03/18/17 03/18/17 03/18/17 05:05 06:15 06:15 WBC 15.8 H RBC Hgb 16.5 H Hct 49.3 H MCV 99 H MCH 33 H MCHC RDW Plt Count Lymph % (Auto) [place] % (Auto) Lymph # [place] # Seg Neutrophils % Seg Neuts % (Manual) 88.0 H Lymphocytes % (Manual) 2.0 L Monocytes % (Manual) 8.0 H Seg Neutrophils # Seg Neutrophils # Man 13.9 H Lymphocytes # (Manual) 0.3 L Monocytes # (Manual) 1.3 H Eosinophils # (Manual) PT INR APTT Heparin Anti-Xa Level POC ABG pH POC ABG pCO2 72.9 H POC ABG pO2 168 H Sodium 147 H Potassium 3.5 L Chloride 95.3 L Carbon Dioxide 37 H BUN 29 H Creatinine Glucose 155 H POC Glucose Calcium Phosphorus Magnesium Total Bilirubin AST Total Creatine Kinase CK-MB (CK-2) Total Protein Albumin Urine Creatinine Urine Chloride 03/18/17 03/18/17 03/18/17 08:27 11:24 11:31 WBC RBC Hgb Hct MCV MCH MCHC RDW Plt Count Lymph % (Auto) [place] % (Auto) Lymph # [place] # Seg Neutrophils % Seg Neuts % (Manual) Lymphocytes % (Manual) Monocytes % (Manual) Seg Neutrophils # Seg Neutrophils # Man Lymphocytes # (Manual) Monocytes # (Manual) Eosinophils # (Manual) PT INR APTT Heparin Anti-Xa Level POC ABG pH 7.530 H POC ABG pCO2 POC ABG pO2 60 L Sodium Potassium Chloride Carbon Dioxide BUN Creatinine Glucose POC Glucose 123 H 176 H Calcium Phosphorus Magnesium Total Bilirubin AST Total Creatine Kinase CK-MB (CK-2) Total Protein Albumin Urine Creatinine Urine Chloride 03/18/17 03/18/17 03/18/17 14:10 15:24 17:23 WBC RBC Hgb 15.4 H Hct 46.4 H MCV MCH MCHC RDW Plt Count Lymph % (Auto) [place] % (Auto) Lymph # [place] # Seg Neutrophils % Seg Neuts % (Manual) Lymphocytes % (Manual) Monocytes % (Manual) Seg Neutrophils # Seg Neutrophils # Man Lymphocytes # (Manual) Monocytes # (Manual) Eosinophils # (Manual) PT INR APTT Heparin Anti-Xa Level POC ABG pH POC ABG pCO2 POC ABG pO2 Sodium Potassium Chloride 94.5 L Carbon Dioxide 33 H BUN 33 H Creatinine 1.6 H Glucose 241 H POC Glucose 244 H Calcium Phosphorus Magnesium Total Bilirubin AST Total Creatine Kinase CK-MB (CK-2) Total Protein Albumin 3.0 L Urine Creatinine Urine Chloride 03/18/17 03/18/17 03/19/17 17:23 21:33 03:54 WBC 25.4 H RBC Hgb Hct MCV 98 H MCH MCHC RDW Plt Count Lymph % (Auto) [place] % (Auto) Lymph # [place] # Seg Neutrophils % Seg Neuts % (Manual) 83.0 H Lymphocytes % (Manual) 4.5 L Monocytes % (Manual) 8.0 H Seg Neutrophils # Seg Neutrophils # Man 21.1 H Lymphocytes # (Manual) 1.1 L Monocytes # (Manual) 2.0 H Eosinophils # (Manual) PT 17.1 H INR 1.40 H APTT Heparin Anti-Xa Level POC ABG pH POC ABG pCO2 POC ABG pO2 Sodium Potassium Chloride Carbon Dioxide BUN Creatinine Glucose POC Glucose 164 H Calcium Phosphorus Magnesium Total Bilirubin AST Total Creatine Kinase CK-MB (CK-2) Total Protein Albumin Urine Creatinine Urine Chloride 03/19/17 03/19/17 03/19/17 03:54 06:55 06:55 WBC RBC Hgb Hct MCV MCH MCHC RDW Plt Count Lymph % (Auto) [place] % (Auto) Lymph # [place] # Seg Neutrophils % Seg Neuts % (Manual) Lymphocytes % (Manual) Monocytes % (Manual) Seg Neutrophils # Seg Neutrophils # Man Lymphocytes # (Manual) Monocytes # (Manual) Eosinophils # (Manual) PT INR APTT Heparin Anti-Xa Level 0.29 L POC ABG pH POC ABG pCO2 POC ABG pO2 Sodium 146 H Potassium 3.4 L Chloride 97.8 L Carbon Dioxide 33 H BUN 30 H Creatinine Glucose 134 H POC Glucose Calcium Phosphorus Magnesium 1.60 L Total Bilirubin AST Total Creatine Kinase CK-MB (CK-2) Total Protein Albumin Urine Creatinine Urine Chloride 03/19/17 03/19/17 03/19/17 08:01 12:56 14:54 WBC RBC Hgb Hct MCV MCH MCHC RDW Plt Count Lymph % (Auto) [place] % (Auto) Lymph # [place] # Seg Neutrophils % Seg Neuts % (Manual) Lymphocytes % (Manual) Monocytes % (Manual) Seg Neutrophils # Seg Neutrophils # Man Lymphocytes # (Manual) Monocytes # (Manual) Eosinophils # (Manual) PT INR APTT Heparin Anti-Xa Level POC ABG pH POC ABG pCO2 57.8 H POC ABG pO2 71 L Sodium Potassium Chloride Carbon Dioxide BUN Creatinine Glucose POC Glucose 139 H 167 H Calcium Phosphorus Magnesium Total Bilirubin AST Total Creatine Kinase CK-MB (CK-2) Total Protein Albumin Urine Creatinine Urine Chloride 03/19/17 03/19/17 03/20/17 15:53 21:04 03:36 WBC RBC Hgb 15.3 H Hct 48.1 H MCV MCH MCHC RDW Plt Count Lymph % (Auto) [place] % (Auto) Lymph # [place] # Seg Neutrophils % Seg Neuts % (Manual) Lymphocytes % (Manual) Monocytes % (Manual) Seg Neutrophils # Seg Neutrophils # Man Lymphocytes # (Manual) Monocytes # (Manual) Eosinophils # (Manual) PT INR APTT Heparin Anti-Xa Level POC ABG pH POC ABG pCO2 POC ABG pO2 Sodium Potassium Chloride Carbon Dioxide BUN Creatinine Glucose POC Glucose 172 H 159 H Calcium Phosphorus Magnesium Total Bilirubin AST Total Creatine Kinase CK-MB (CK-2) Total Protein Albumin Urine Creatinine Urine Chloride 03/20/17 03/20/17 03/20/17 07:45 12:02 14:07 WBC RBC Hgb Hct MCV MCH MCHC RDW Plt Count Lymph % (Auto) [place] % (Auto) Lymph # [place] # Seg Neutrophils % Seg Neuts % (Manual) Lymphocytes % (Manual) Monocytes % (Manual) Seg Neutrophils # Seg Neutrophils # Man Lymphocytes # (Manual) Monocytes # (Manual) Eosinophils # (Manual) PT INR APTT Heparin Anti-Xa Level POC ABG pH 7.312 L POC ABG pCO2 68.3 H POC ABG pO2 47 L Sodium Potassium Chloride Carbon Dioxide BUN Creatinine Glucose POC Glucose 160 H 142 H Calcium Phosphorus Magnesium Total Bilirubin AST Total Creatine Kinase CK-MB (CK-2) Total Protein Albumin Urine Creatinine Urine Chloride 03/20/17 03/20/17 03/20/17 15:57 15:59 19:50 WBC RBC Hgb Hct MCV MCH MCHC RDW Plt Count Lymph % (Auto) [place] % (Auto) Lymph # [place] # Seg Neutrophils % Seg Neuts % (Manual) Lymphocytes % (Manual) Monocytes % (Manual) Seg Neutrophils # Seg Neutrophils # Man Lymphocytes # (Manual) Monocytes # (Manual) Eosinophils # (Manual) PT INR APTT Heparin Anti-Xa Level POC ABG pH 7.214 L POC ABG pCO2 82.8 H 58.7 H POC ABG pO2 69 L Sodium Potassium Chloride Carbon Dioxide BUN Creatinine Glucose POC Glucose 149 H Calcium Phosphorus Magnesium Total Bilirubin AST Total Creatine Kinase CK-MB (CK-2) Total Protein Albumin Urine Creatinine Urine Chloride 03/20/17 03/20/17 03/21/17 21:19 23:34 04:18 WBC RBC Hgb Hct MCV MCH MCHC RDW Plt Count Lymph % (Auto) [place] % (Auto) Lymph # [place] # Seg Neutrophils % Seg Neuts % (Manual) Lymphocytes % (Manual) Monocytes % (Manual) Seg Neutrophils # Seg Neutrophils # Man Lymphocytes # (Manual) Monocytes # (Manual) Eosinophils # (Manual) PT INR APTT Heparin Anti-Xa Level 0.20 L POC ABG pH POC ABG pCO2 48.6 H POC ABG pO2 79 L Sodium Potassium Chloride Carbon Dioxide BUN Creatinine Glucose POC Glucose 206 H Calcium Phosphorus Magnesium Total Bilirubin AST Total Creatine Kinase CK-MB (CK-2) Total Protein Albumin Urine Creatinine Urine Chloride 03/21/17 03/21/17 03/21/17 04:21 04:21 05:23 WBC RBC Hgb Hct MCV MCH MCHC RDW Plt Count Lymph % (Auto) [place] % (Auto) Lymph # [place] # Seg Neutrophils % Seg Neuts % (Manual) Lymphocytes % (Manual) Monocytes % (Manual) Seg Neutrophils # Seg Neutrophils # Man Lymphocytes # (Manual) Monocytes # (Manual) Eosinophils # (Manual) PT INR APTT Heparin Anti-Xa Level 0.24 L POC ABG pH POC ABG pCO2 POC ABG pO2 Sodium 147 H Potassium Chloride Carbon Dioxide BUN 42 H Creatinine 2.6 H D Glucose 209 H POC Glucose 181 H Calcium 7.9 L Phosphorus Magnesium Total Bilirubin AST Total Creatine Kinase CK-MB (CK-2) Total Protein Albumin Urine Creatinine Urine Chloride 03/21/17 03/21/17 03/21/17 13:16 13:16 14:43 WBC 27.8 H RBC Hgb Hct MCV 101 H D MCH MCHC RDW Plt Count Lymph % (Auto) [place] % (Auto) Lymph # [place] # Seg Neutrophils % Seg Neuts % (Manual) 76.0 H Lymphocytes % (Manual) 7.0 L Monocytes % (Manual) Seg Neutrophils # Seg Neutrophils # Man 21.1 H Lymphocytes # (Manual) Monocytes # (Manual) 1.1 H Eosinophils # (Manual) PT INR APTT Heparin Anti-Xa Level 0.25 L POC ABG pH 7.474 H POC ABG pCO2 POC ABG pO2 59 L Sodium Potassium Chloride Carbon Dioxide BUN Creatinine Glucose POC Glucose Calcium Phosphorus Magnesium Total Bilirubin AST Total Creatine Kinase CK-MB (CK-2) Total Protein Albumin Urine Creatinine Urine Chloride 03/21/17 03/21/17 03/21/17 17:00 18:20 23:40 WBC RBC Hgb Hct MCV MCH MCHC RDW Plt Count Lymph % (Auto) [place] % (Auto) Lymph # [place] # Seg Neutrophils % Seg Neuts % (Manual) Lymphocytes % (Manual) Monocytes % (Manual) Seg Neutrophils # Seg Neutrophils # Man Lymphocytes # (Manual) Monocytes # (Manual) Eosinophils # (Manual) PT INR APTT Heparin Anti-Xa Level POC ABG pH POC ABG pCO2 POC ABG pO2 Sodium Potassium Chloride Carbon Dioxide BUN 48 H Creatinine 3.2 H Glucose 135 H POC Glucose 152 H 136 H Calcium 6.8 L Phosphorus Magnesium Total Bilirubin AST Total Creatine Kinase CK-MB (CK-2) Total Protein 5.3 L D Albumin 1.7 L Urine Creatinine Urine Chloride 03/22/17 03/22/17 03/22/17 04:30 04:30 04:30 WBC 29.3 H RBC Hgb Hct MCV 100 H MCH MCHC 31 L RDW 15.3 H Plt Count Lymph % (Auto) [place] % (Auto) Lymph # [place] # Seg Neutrophils % Seg Neuts % (Manual) Lymphocytes % (Manual) Monocytes % (Manual) Seg Neutrophils # Seg Neutrophils # Man Lymphocytes # (Manual) Monocytes # (Manual) Eosinophils # (Manual) PT INR APTT Heparin Anti-Xa Level 0.29 L POC ABG pH POC ABG pCO2 POC ABG pO2 Sodium Potassium Chloride Carbon Dioxide BUN 60 H Creatinine 4.3 H Glucose 118 H POC Glucose Calcium 8.2 L D Phosphorus Magnesium Total Bilirubin AST Total Creatine Kinase CK-MB (CK-2) Total Protein Albumin 1.8 L Urine Creatinine Urine Chloride 03/22/17 03/22/17 03/22/17 05:08 07:00 07:00 WBC 24.8 H RBC Hgb Hct MCV 100 H MCH MCHC RDW Plt Count Lymph % (Auto) [place] % (Auto) Lymph # [place] # Seg Neutrophils % Seg Neuts % (Manual) 94.0 H Lymphocytes % (Manual) 0 L Monocytes % (Manual) Seg Neutrophils # Seg Neutrophils # Man 23.3 H Lymphocytes # (Manual) 0.0 L Monocytes # (Manual) Eosinophils # (Manual) 0.7 H PT INR APTT Heparin Anti-Xa Level POC ABG pH POC ABG pCO2 POC ABG pO2 Sodium 147 H Potassium Chloride 109.2 H Carbon Dioxide BUN 58 H Creatinine 4.1 H Glucose 117 H POC Glucose 124 H Calcium 7.4 L Phosphorus Magnesium Total Bilirubin AST Total Creatine Kinase CK-MB (CK-2) Total Protein Albumin Urine Creatinine Urine Chloride 03/22/17 03/22/17 03/22/17 08:40 11:37 14:30 WBC RBC Hgb Hct MCV MCH MCHC RDW Plt Count Lymph % (Auto) [place] % (Auto) Lymph # [place] # Seg Neutrophils % Seg Neuts % (Manual) Lymphocytes % (Manual) Monocytes % (Manual) Seg Neutrophils # Seg Neutrophils # Man Lymphocytes # (Manual) Monocytes # (Manual) Eosinophils # (Manual) PT 16.2 H INR 1.31 H APTT 68.9 H* Heparin Anti-Xa Level < 0.10 L POC ABG pH POC ABG pCO2 POC ABG pO2 Sodium Potassium Chloride Carbon Dioxide BUN Creatinine Glucose POC Glucose 159 H Calcium Phosphorus Magnesium Total Bilirubin AST Total Creatine Kinase CK-MB (CK-2) Total Protein Albumin Urine Creatinine Urine Chloride 03/22/17 03/22/17 03/22/17 17:53 21:44 23:54 WBC RBC Hgb 11.6 L Hct 33.1 L MCV MCH MCHC RDW Plt Count Lymph % (Auto) [place] % (Auto) Lymph # [place] # Seg Neutrophils % Seg Neuts % (Manual) Lymphocytes % (Manual) Monocytes % (Manual) Seg Neutrophils # Seg Neutrophils # Man Lymphocytes # (Manual) Monocytes # (Manual) Eosinophils # (Manual) PT INR APTT Heparin Anti-Xa Level POC ABG pH POC ABG pCO2 POC ABG pO2 Sodium Potassium Chloride Carbon Dioxide BUN Creatinine Glucose POC Glucose 142 H 131 H Calcium Phosphorus Magnesium Total Bilirubin AST Total Creatine Kinase CK-MB (CK-2) Total Protein Albumin Urine Creatinine Urine Chloride 03/23/17 03/23/17 03/23/17 04:08 05:29 06:34 WBC RBC Hgb Hct MCV MCH MCHC RDW Plt Count Lymph % (Auto) [place] % (Auto) Lymph # [place] # Seg Neutrophils % Seg Neuts % (Manual) Lymphocytes % (Manual) Monocytes % (Manual) Seg Neutrophils # Seg Neutrophils # Man Lymphocytes # (Manual) Monocytes # (Manual) Eosinophils # (Manual) PT INR APTT Heparin Anti-Xa Level POC ABG pH POC ABG pCO2 POC ABG pO2 75 L Sodium Potassium Chloride Carbon Dioxide 21 L BUN 85 H Creatinine 6.0 H Glucose 134 H POC Glucose 134 H Calcium 8.1 L Phosphorus Magnesium Total Bilirubin AST Total Creatine Kinase CK-MB (CK-2) Total Protein Albumin Urine Creatinine Urine Chloride 03/23/17 03/23/17 03/23/17 12:09 17:20 17:52 WBC RBC Hgb Hct MCV MCH MCHC RDW Plt Count Lymph % (Auto) [place] % (Auto) Lymph # [place] # Seg Neutrophils % Seg Neuts % (Manual) Lymphocytes % (Manual) Monocytes % (Manual) Seg Neutrophils # Seg Neutrophils # Man Lymphocytes # (Manual) Monocytes # (Manual) Eosinophils # (Manual) PT INR APTT Heparin Anti-Xa Level 1.39 H POC ABG pH POC ABG pCO2 POC ABG pO2 Sodium Potassium Chloride Carbon Dioxide BUN Creatinine Glucose POC Glucose 133 H 151 H Calcium Phosphorus Magnesium Total Bilirubin AST Total Creatine Kinase CK-MB (CK-2) Total Protein Albumin Urine Creatinine Urine Chloride 03/23/17 03/24/17 03/24/17 23:59 03:15 03:15 WBC 23.9 H RBC 3.58 L Hgb 11.6 L Hct 34.6 L MCV 97 H D MCH MCHC RDW Plt Count 122 L Lymph % (Auto) [place] % (Auto) Lymph # [place] # Seg Neutrophils % Seg Neuts % (Manual) Lymphocytes % (Manual) Monocytes % (Manual) Seg Neutrophils # Seg Neutrophils # Man Lymphocytes # (Manual) Monocytes # (Manual) Eosinophils # (Manual) PT INR APTT Heparin Anti-Xa Level POC ABG pH POC ABG pCO2 POC ABG pO2 Sodium 135 L Potassium Chloride 95.0 L Carbon Dioxide BUN 71 H Creatinine 5.2 H Glucose 123 H POC Glucose 124 H Calcium 8.0 L Phosphorus Magnesium Total Bilirubin AST Total Creatine Kinase CK-MB (CK-2) Total Protein Albumin Urine Creatinine Urine Chloride 03/24/17 03/24/17 03/24/17 03:15 04:53 11:58 WBC RBC Hgb Hct MCV MCH MCHC RDW Plt Count Lymph % (Auto) [place] % (Auto) Lymph # [place] # Seg Neutrophils % Seg Neuts % (Manual) Lymphocytes % (Manual) Monocytes % (Manual) Seg Neutrophils # Seg Neutrophils # Man Lymphocytes # (Manual) Monocytes # (Manual) Eosinophils # (Manual) PT INR APTT Heparin Anti-Xa Level 0.20 L POC ABG pH POC ABG pCO2 POC ABG pO2 72 L Sodium Potassium Chloride Carbon Dioxide BUN Creatinine Glucose POC Glucose 121 H Calcium Phosphorus Magnesium Total Bilirubin AST Total Creatine Kinase CK-MB (CK-2) Total Protein Albumin Urine Creatinine Urine Chloride 03/24/17 03/25/17 03/25/17 18:16 00:24 05:30 WBC RBC Hgb Hct MCV MCH MCHC RDW Plt Count Lymph % (Auto) [place] % (Auto) Lymph # [place] # Seg Neutrophils % Seg Neuts % (Manual) Lymphocytes % (Manual) Monocytes % (Manual) Seg Neutrophils # Seg Neutrophils # Man Lymphocytes # (Manual) Monocytes # (Manual) Eosinophils # (Manual) PT INR APTT Heparin Anti-Xa Level POC ABG pH POC ABG pCO2 34.2 L POC ABG pO2 Sodium Potassium Chloride Carbon Dioxide BUN Creatinine Glucose POC Glucose 117 H 107 H Calcium Phosphorus Magnesium Total Bilirubin AST Total Creatine Kinase CK-MB (CK-2) Total Protein Albumin Urine Creatinine Urine Chloride 03/25/17 03/25/17 03/25/17 05:35 11:45 16:48 WBC RBC Hgb Hct MCV MCH MCHC RDW Plt Count Lymph % (Auto) [place] % (Auto) Lymph # [place] # Seg Neutrophils % Seg Neuts % (Manual) Lymphocytes % (Manual) Monocytes % (Manual) Seg Neutrophils # Seg Neutrophils # Man Lymphocytes # (Manual) Monocytes # (Manual) Eosinophils # (Manual) PT INR APTT Heparin Anti-Xa Level POC ABG pH POC ABG pCO2 POC ABG pO2 Sodium 132 L Potassium Chloride 92.0 L Carbon Dioxide 20 L BUN 102 H Creatinine 7.2 H Glucose 101 H POC Glucose 127 H 114 H Calcium 8.3 L Phosphorus Magnesium Total Bilirubin AST Total Creatine Kinase CK-MB (CK-2) Total Protein Albumin Urine Creatinine Urine Chloride 03/26/17 03/26/17 03/26/17 00:17 04:15 04:15 WBC 21.1 H RBC 3.52 L Hgb 11.0 L Hct 33.2 L MCV 95 H MCH MCHC RDW Plt Count 121 L Lymph % (Auto) [place] % (Auto) Lymph # [place] # Seg Neutrophils % Seg Neuts % (Manual) Lymphocytes % (Manual) Monocytes % (Manual) Seg Neutrophils # Seg Neutrophils # Man Lymphocytes # (Manual) Monocytes # (Manual) Eosinophils # (Manual) PT INR APTT Heparin Anti-Xa Level POC ABG pH POC ABG pCO2 POC ABG pO2 Sodium 133 L Potassium Chloride 92.9 L Carbon Dioxide 21 L BUN 77 H Creatinine 5.4 H Glucose 115 H POC Glucose 114 H Calcium 8.1 L Phosphorus Magnesium Total Bilirubin AST Total Creatine Kinase CK-MB (CK-2) Total Protein Albumin Urine Creatinine Urine Chloride 03/26/17 03/26/17 03/26/17 04:49 11:36 23:29 WBC RBC Hgb Hct MCV MCH MCHC RDW Plt Count Lymph % (Auto) [place] % (Auto) Lymph # [place] # Seg Neutrophils % Seg Neuts % (Manual) Lymphocytes % (Manual) Monocytes % (Manual) Seg Neutrophils # Seg Neutrophils # Man Lymphocytes # (Manual) Monocytes # (Manual) Eosinophils # (Manual) PT INR APTT Heparin Anti-Xa Level POC ABG pH POC ABG pCO2 POC ABG pO2 Sodium Potassium Chloride Carbon Dioxide BUN Creatinine Glucose POC Glucose 127 H 123 H 125 H Calcium Phosphorus Magnesium Total Bilirubin AST Total Creatine Kinase CK-MB (CK-2) Total Protein Albumin Urine Creatinine Urine Chloride 03/27/17 03/27/17 03/27/17 04:00 04:46 05:06 WBC RBC Hgb Hct MCV MCH MCHC RDW Plt Count Lymph % (Auto) [place] % (Auto) Lymph # [place] # Seg Neutrophils % Seg Neuts % (Manual) Lymphocytes % (Manual) Monocytes % (Manual) Seg Neutrophils # Seg Neutrophils # Man Lymphocytes # (Manual) Monocytes # (Manual) Eosinophils # (Manual) PT INR APTT Heparin Anti-Xa Level POC ABG pH POC ABG pCO2 31.4 L POC ABG pO2 Sodium 132 L Potassium Chloride 90.5 L Carbon Dioxide 19 L BUN 95 H Creatinine 6.7 H Glucose 110 H POC Glucose 116 H Calcium Phosphorus Magnesium Total Bilirubin AST Total Creatine Kinase CK-MB (CK-2) Total Protein Albumin Urine Creatinine Urine Chloride 03/27/17 03/27/17 03/27/17 08:11 08:11 11:34 WBC 24.7 H RBC Hgb 11.5 L Hct 35.0 L MCV 95 H MCH MCHC RDW Plt Count Lymph % (Auto) [place] % (Auto) Lymph # [place] # Seg Neutrophils % Seg Neuts % (Manual) Lymphocytes % (Manual) Monocytes % (Manual) Seg Neutrophils # Seg Neutrophils # Man Lymphocytes # (Manual) Monocytes # (Manual) Eosinophils # (Manual) PT INR APTT Heparin Anti-Xa Level < 0.10 L POC ABG pH POC ABG pCO2 POC ABG pO2 Sodium Potassium Chloride Carbon Dioxide BUN Creatinine Glucose POC Glucose 118 H Calcium Phosphorus Magnesium Total Bilirubin AST Total Creatine Kinase CK-MB (CK-2) Total Protein Albumin Urine Creatinine Urine Chloride 03/27/17 03/27/17 03/28/17 16:44 23:59 05:07 WBC RBC Hgb Hct MCV MCH MCHC RDW Plt Count Lymph % (Auto) [place] % (Auto) Lymph # [place] # Seg Neutrophils % Seg Neuts % (Manual) Lymphocytes % (Manual) Monocytes % (Manual) Seg Neutrophils # Seg Neutrophils # Man Lymphocytes # (Manual) Monocytes # (Manual) Eosinophils # (Manual) PT INR APTT Heparin Anti-Xa Level POC ABG pH POC ABG pCO2 POC ABG pO2 Sodium Potassium Chloride Carbon Dioxide BUN Creatinine Glucose POC Glucose 110 H 109 H 110 H Calcium Phosphorus Magnesium Total Bilirubin AST Total Creatine Kinase CK-MB (CK-2) Total Protein Albumin Urine Creatinine Urine Chloride 03/28/17 03/28/17 03/28/17 07:00 11:24 11:50 WBC 26.6 H RBC 3.42 L Hgb 10.8 L Hct 33.2 L MCV 97 H MCH MCHC RDW 15.4 H Plt Count Lymph % (Auto) [place] % (Auto) Lymph # [place] # Seg Neutrophils % Seg Neuts % (Manual) Lymphocytes % (Manual) Monocytes % (Manual) Seg Neutrophils # Seg Neutrophils # Man Lymphocytes # (Manual) Monocytes # (Manual) Eosinophils # (Manual) PT INR APTT Heparin Anti-Xa Level POC ABG pH POC ABG pCO2 POC ABG pO2 Sodium 131 L Potassium 5.3 H Chloride 86.6 L Carbon Dioxide 17 L BUN 112 H Creatinine 7.9 H Glucose 120 H POC Glucose 141 H Calcium Phosphorus Magnesium Total Bilirubin AST Total Creatine Kinase CK-MB (CK-2) Total Protein Albumin Urine Creatinine Urine Chloride 03/28/17 03/28/17 03/28/17 17:25 18:04 23:07 WBC RBC Hgb Hct MCV MCH MCHC RDW Plt Count Lymph % (Auto) [place] % (Auto) Lymph # [place] # Seg Neutrophils % Seg Neuts % (Manual) Lymphocytes % (Manual) Monocytes % (Manual) Seg Neutrophils # Seg Neutrophils # Man Lymphocytes # (Manual) Monocytes # (Manual) Eosinophils # (Manual) PT INR APTT Heparin Anti-Xa Level 0.23 L POC ABG pH POC ABG pCO2 POC ABG pO2 Sodium Potassium Chloride Carbon Dioxide BUN Creatinine Glucose POC Glucose 128 H 115 H Calcium Phosphorus Magnesium Total Bilirubin AST Total Creatine Kinase CK-MB (CK-2) Total Protein Albumin Urine Creatinine Urine Chloride 03/29/17 03/29/17 03/29/17 03:23 05:16 08:20 WBC RBC Hgb Hct MCV MCH MCHC RDW Plt Count Lymph % (Auto) [place] % (Auto) Lymph # [place] # Seg Neutrophils % Seg Neuts % (Manual) Lymphocytes % (Manual) Monocytes % (Manual) Seg Neutrophils # Seg Neutrophils # Man Lymphocytes # (Manual) Monocytes # (Manual) Eosinophils # (Manual) PT INR APTT Heparin Anti-Xa Level 0.10 L POC ABG pH POC ABG pCO2 POC ABG pO2 Sodium 126 L Potassium 5.6 H Chloride 87.5 L Carbon Dioxide 21 L BUN 84 H Creatinine 6.0 H Glucose 144 H POC Glucose 146 H Calcium 7.9 L Phosphorus Magnesium Total Bilirubin AST Total Creatine Kinase CK-MB (CK-2) Total Protein Albumin Urine Creatinine Urine Chloride 03/29/17 03/29/17 03/29/17 08:20 09:13 10:00 WBC 27.6 H RBC 3.27 L Hgb 10.2 L Hct 31.8 L MCV 97 H MCH MCHC RDW 15.3 H Plt Count Lymph % (Auto) [place] % (Auto) Lymph # [place] # Seg Neutrophils % Seg Neuts % (Manual) Lymphocytes % (Manual) Monocytes % (Manual) Seg Neutrophils # Seg Neutrophils # Man Lymphocytes # (Manual) Monocytes # (Manual) Eosinophils # (Manual) PT INR APTT Heparin Anti-Xa Level 0.84 H POC ABG pH 7.204 L POC ABG pCO2 52.8 H POC ABG pO2 57 L Sodium Potassium Chloride Carbon Dioxide BUN Creatinine Glucose POC Glucose Calcium Phosphorus Magnesium Total Bilirubin AST Total Creatine Kinase CK-MB (CK-2) Total Protein Albumin Urine Creatinine Urine Chloride 03/29/17 03/29/17 03/29/17 10:24 12:27 16:44 WBC RBC Hgb Hct MCV MCH MCHC RDW Plt Count Lymph % (Auto) [place] % (Auto) Lymph # [place] # Seg Neutrophils % Seg Neuts % (Manual) Lymphocytes % (Manual) Monocytes % (Manual) Seg Neutrophils # Seg Neutrophils # Man Lymphocytes # (Manual) Monocytes # (Manual) Eosinophils # (Manual) PT INR APTT Heparin Anti-Xa Level < 0.10 L POC ABG pH 7.305 L POC ABG pCO2 POC ABG pO2 73 L Sodium Potassium Chloride Carbon Dioxide BUN Creatinine Glucose POC Glucose 152 H Calcium Phosphorus Magnesium Total Bilirubin AST Total Creatine Kinase CK-MB (CK-2) Total Protein Albumin Urine Creatinine Urine Chloride 03/29/17 03/29/17 03/29/17 17:48 18:56 22:10 WBC RBC Hgb Hct MCV MCH MCHC RDW Plt Count Lymph % (Auto) [place] % (Auto) Lymph # [place] # Seg Neutrophils % Seg Neuts % (Manual) Lymphocytes % (Manual) Monocytes % (Manual) Seg Neutrophils # Seg Neutrophils # Man Lymphocytes # (Manual) Monocytes # (Manual) Eosinophils # (Manual) PT INR APTT Heparin Anti-Xa Level POC ABG pH POC ABG pCO2 POC ABG pO2 Sodium 125 L Potassium 5.8 H Chloride 85.4 L Carbon Dioxide 16 L BUN 96 H Creatinine 6.9 H Glucose 135 H POC Glucose 130 H Calcium Phosphorus Magnesium Total Bilirubin AST Total Creatine Kinase CK-MB (CK-2) Total Protein Albumin Urine Creatinine 86.5 H Urine Chloride 15.2 L 03/30/17 03/30/17 03/30/17 00:11 01:00 05:42 WBC RBC Hgb Hct MCV MCH MCHC RDW Plt Count Lymph % (Auto) [place] % (Auto) Lymph # [place] # Seg Neutrophils % Seg Neuts % (Manual) Lymphocytes % (Manual) Monocytes % (Manual) Seg Neutrophils # Seg Neutrophils # Man Lymphocytes # (Manual) Monocytes # (Manual) Eosinophils # (Manual) PT INR APTT Heparin Anti-Xa Level 0.80 H POC ABG pH POC ABG pCO2 POC ABG pO2 Sodium Potassium Chloride Carbon Dioxide BUN Creatinine Glucose POC Glucose 146 H 162 H Calcium Phosphorus Magnesium Total Bilirubin AST Total Creatine Kinase CK-MB (CK-2) Total Protein Albumin Urine Creatinine Urine Chloride 03/30/17 03/30/17 03/30/17 07:32 07:38 08:20 WBC 27.7 H RBC 3.14 L Hgb 9.7 L Hct 30.1 L MCV 96 H MCH MCHC RDW 16.2 H Plt Count Lymph % (Auto) [place] % (Auto) Lymph # [place] # Seg Neutrophils % Seg Neuts % (Manual) 93.0 H Lymphocytes % (Manual) 1.0 L Monocytes % (Manual) Seg Neutrophils # Seg Neutrophils # Man 25.8 H Lymphocytes # (Manual) 0.3 L Monocytes # (Manual) 1.0 H Eosinophils # (Manual) PT INR APTT Heparin Anti-Xa Level 0.99 H POC ABG pH POC ABG pCO2 POC ABG pO2 Sodium 127 L Potassium 5.9 H Chloride 88.5 L Carbon Dioxide 16 L BUN 101 H Creatinine 7.5 H Glucose 147 H POC Glucose Calcium 8.0 L Phosphorus Magnesium Total Bilirubin AST Total Creatine Kinase CK-MB (CK-2) Total Protein Albumin Urine Creatinine Urine Chloride 03/30/17 03/30/17 03/30/17 12:19 16:07 16:58 WBC RBC Hgb Hct MCV MCH MCHC RDW Plt Count Lymph % (Auto) [place] % (Auto) Lymph # [place] # Seg Neutrophils % Seg Neuts % (Manual) Lymphocytes % (Manual) Monocytes % (Manual) Seg Neutrophils # Seg Neutrophils # Man Lymphocytes # (Manual) Monocytes # (Manual) Eosinophils # (Manual) PT INR APTT Heparin Anti-Xa Level 1.07 H POC ABG pH POC ABG pCO2 POC ABG pO2 62 L Sodium Potassium Chloride Carbon Dioxide BUN Creatinine Glucose POC Glucose 179 H Calcium Phosphorus Magnesium Total Bilirubin AST Total Creatine Kinase CK-MB (CK-2) Total Protein Albumin Urine Creatinine Urine Chloride 03/30/17 03/30/17 03/31/17 17:48 Unknown 00:25 WBC RBC Hgb Hct MCV MCH MCHC RDW Plt Count Lymph % (Auto) [place] % (Auto) Lymph # [place] # Seg Neutrophils % Seg Neuts % (Manual) Lymphocytes % (Manual) Monocytes % (Manual) Seg Neutrophils # Seg Neutrophils # Man Lymphocytes # (Manual) Monocytes # (Manual) Eosinophils # (Manual) PT INR APTT Heparin Anti-Xa Level POC ABG pH POC ABG pCO2 POC ABG pO2 Sodium 124 L Potassium 5.2 H Chloride 86.6 L Carbon Dioxide 16 L BUN 93 H Creatinine 6.3 H Glucose 153 H POC Glucose 162 H 139 H Calcium 7.4 L D Phosphorus Magnesium Total Bilirubin AST Total Creatine Kinase CK-MB (CK-2) Total Protein Albumin Urine Creatinine Urine Chloride 03/31/17 03/31/17 03/31/17 04:18 05:21 11:39 WBC RBC Hgb Hct MCV MCH MCHC RDW Plt Count Lymph % (Auto) [place] % (Auto) Lymph # [place] # Seg Neutrophils % Seg Neuts % (Manual) Lymphocytes % (Manual) Monocytes % (Manual) Seg Neutrophils # Seg Neutrophils # Man Lymphocytes # (Manual) Monocytes # (Manual) Eosinophils # (Manual) PT INR APTT Heparin Anti-Xa Level POC ABG pH 7.209 L POC ABG pCO2 55.7 H POC ABG pO2 106 H Sodium Potassium Chloride Carbon Dioxide BUN Creatinine Glucose POC Glucose 133 H 133 H Calcium Phosphorus Magnesium Total Bilirubin AST Total Creatine Kinase CK-MB (CK-2) Total Protein Albumin Urine Creatinine Urine Chloride 03/31/17 03/31/17 03/31/17 16:53 Unknown Unknown WBC 25.9 H RBC 3.04 L Hgb 9.6 L Hct 29.9 L MCV 98 H MCH MCHC RDW 16.1 H Plt Count Lymph % (Auto) [place] % (Auto) Lymph # [place] # Seg Neutrophils % Seg Neuts % (Manual) Lymphocytes % (Manual) Monocytes % (Manual) Seg Neutrophils # Seg Neutrophils # Man Lymphocytes # (Manual) Monocytes # (Manual) Eosinophils # (Manual) PT INR APTT Heparin Anti-Xa Level POC ABG pH POC ABG pCO2 POC ABG pO2 Sodium 133 L Potassium Chloride 91.6 L Carbon Dioxide 20 L BUN 67 H Creatinine 5.3 H Glucose 129 H POC Glucose 146 H Calcium 7.4 L Phosphorus Magnesium Total Bilirubin AST Total Creatine Kinase CK-MB (CK-2) Total Protein Albumin Urine Creatinine Urine Chloride 03/31/17 04/01/17 04/01/17 23:59 04:00 04:00 WBC 16.1 H RBC 3.02 L Hgb 9.6 L Hct 29.0 L MCV 96 H MCH MCHC RDW 16.0 H Plt Count Lymph % (Auto) [place] % (Auto) Lymph # [place] # Seg Neutrophils % Seg Neuts % (Manual) Lymphocytes % (Manual) Monocytes % (Manual) Seg Neutrophils # Seg Neutrophils # Man Lymphocytes # (Manual) Monocytes # (Manual) Eosinophils # (Manual) PT INR APTT Heparin Anti-Xa Level POC ABG pH POC ABG pCO2 POC ABG pO2 Sodium Potassium 3.1 L D Chloride 96.0 L Carbon Dioxide BUN 45 H Creatinine 4.1 H Glucose POC Glucose 121 H Calcium 7.1 L Phosphorus Magnesium Total Bilirubin AST Total Creatine Kinase CK-MB (CK-2) Total Protein Albumin Urine Creatinine Urine Chloride 04/01/17 04/02/17 04/02/17 05:20 00:15 04:00 WBC 13.5 H RBC 3.05 L Hgb 9.7 L Hct 29.2 L MCV 96 H MCH MCHC RDW 15.9 H Plt Count Lymph % (Auto) [place] % (Auto) Lymph # [place] # Seg Neutrophils % Seg Neuts % (Manual) Lymphocytes % (Manual) Monocytes % (Manual) Seg Neutrophils # Seg Neutrophils # Man Lymphocytes # (Manual) Monocytes # (Manual) Eosinophils # (Manual) PT INR APTT Heparin Anti-Xa Level POC ABG pH POC ABG pCO2 POC ABG pO2 132 H Sodium Potassium Chloride Carbon Dioxide BUN Creatinine Glucose POC Glucose 110 H Calcium Phosphorus Magnesium Total Bilirubin AST Total Creatine Kinase CK-MB (CK-2) Total Protein Albumin Urine Creatinine Urine Chloride 04/02/17 04/02/17 04/02/17 04:22 04:35 05:25 WBC RBC Hgb Hct MCV MCH MCHC RDW Plt Count Lymph % (Auto) [place] % (Auto) Lymph # [place] # Seg Neutrophils % Seg Neuts % (Manual) Lymphocytes % (Manual) Monocytes % (Manual) Seg Neutrophils # Seg Neutrophils # Man Lymphocytes # (Manual) Monocytes # (Manual) Eosinophils # (Manual) PT INR APTT Heparin Anti-Xa Level POC ABG pH POC ABG pCO2 POC ABG pO2 106 H Sodium Potassium 2.8 L* Chloride Carbon Dioxide BUN 30 H Creatinine 3.5 H Glucose 113 H POC Glucose 110 H Calcium 7.6 L Phosphorus Magnesium Total Bilirubin AST Total Creatine Kinase CK-MB (CK-2) Total Protein Albumin Urine Creatinine Urine Chloride 04/02/17 04/02/17 04/02/17 06:49 11:56 18:02 WBC RBC Hgb Hct MCV MCH MCHC RDW Plt Count Lymph % (Auto) [place] % (Auto) Lymph # [place] # Seg Neutrophils % Seg Neuts % (Manual) Lymphocytes % (Manual) Monocytes % (Manual) Seg Neutrophils # Seg Neutrophils # Man Lymphocytes # (Manual) Monocytes # (Manual) Eosinophils # (Manual) PT INR APTT Heparin Anti-Xa Level 0.23 L POC ABG pH POC ABG pCO2 POC ABG pO2 Sodium Potassium Chloride Carbon Dioxide BUN Creatinine Glucose POC Glucose 118 H 128 H Calcium Phosphorus Magnesium Total Bilirubin AST Total Creatine Kinase CK-MB (CK-2) Total Protein Albumin Urine Creatinine Urine Chloride 04/03/17 04/03/17 04/03/17 00:15 04:41 05:54 WBC RBC Hgb Hct MCV MCH MCHC RDW Plt Count Lymph % (Auto) [place] % (Auto) Lymph # [place] # Seg Neutrophils % Seg Neuts % (Manual) Lymphocytes % (Manual) Monocytes % (Manual) Seg Neutrophils # Seg Neutrophils # Man Lymphocytes # (Manual) Monocytes # (Manual) Eosinophils # (Manual) PT INR APTT Heparin Anti-Xa Level POC ABG pH 7.451 H POC ABG pCO2 POC ABG pO2 146 H Sodium Potassium Chloride Carbon Dioxide BUN Creatinine Glucose POC Glucose 202 H 202 H Calcium Phosphorus Magnesium Total Bilirubin AST Total Creatine Kinase CK-MB (CK-2) Total Protein Albumin Urine Creatinine Urine Chloride 04/03/17 04/03/17 04/03/17 06:22 06:22 09:54 WBC RBC 3.03 L Hgb 9.7 L Hct 28.7 L MCV 95 H MCH MCHC RDW 15.9 H Plt Count Lymph % (Auto) [place] % (Auto) Lymph # [place] # Seg Neutrophils % Seg Neuts % (Manual) Lymphocytes % (Manual) Monocytes % (Manual) Seg Neutrophils # Seg Neutrophils # Man Lymphocytes # (Manual) Monocytes # (Manual) Eosinophils # (Manual) PT INR APTT Heparin Anti-Xa Level < 0.10 L POC ABG pH POC ABG pCO2 POC ABG pO2 Sodium Potassium Chloride Carbon Dioxide BUN 23 H Creatinine 3.1 H Glucose 175 H POC Glucose Calcium 8.0 L Phosphorus Magnesium Total Bilirubin AST Total Creatine Kinase CK-MB (CK-2) Total Protein Albumin Urine Creatinine Urine Chloride 04/03/17 04/03/17 04/03/17 11:40 11:45 16:25 WBC RBC Hgb Hct MCV MCH MCHC RDW Plt Count Lymph % (Auto) [place] % (Auto) Lymph # [place] # Seg Neutrophils % Seg Neuts % (Manual) Lymphocytes % (Manual) Monocytes % (Manual) Seg Neutrophils # Seg Neutrophils # Man Lymphocytes # (Manual) Monocytes # (Manual) Eosinophils # (Manual) PT INR APTT Heparin Anti-Xa Level 0.27 L POC ABG pH POC ABG pCO2 POC ABG pO2 Sodium Potassium Chloride Carbon Dioxide BUN Creatinine Glucose POC Glucose 205 H 191 H Calcium Phosphorus Magnesium Total Bilirubin AST Total Creatine Kinase CK-MB (CK-2) Total Protein Albumin Urine Creatinine Urine Chloride 04/03/17 04/04/17 04/04/17 21:42 04:00 04:00 WBC 11.7 H RBC 3.20 L Hgb 10.0 L Hct 31.2 L MCV 96 H MCH MCHC RDW 16.1 H Plt Count Lymph % (Auto) [place] % (Auto) Lymph # [place] # Seg Neutrophils % Seg Neuts % (Manual) 94.0 H Lymphocytes % (Manual) 0 L Monocytes % (Manual) Seg Neutrophils # Seg Neutrophils # Man 11.0 H Lymphocytes # (Manual) 0.0 L Monocytes # (Manual) Eosinophils # (Manual) PT INR APTT Heparin Anti-Xa Level POC ABG pH POC ABG pCO2 POC ABG pO2 Sodium 136 L Potassium Chloride 97.6 L Carbon Dioxide 21 L BUN 41 H Creatinine 4.0 H Glucose 184 H POC Glucose 147 H Calcium 8.1 L Phosphorus Magnesium Total Bilirubin AST Total Creatine Kinase CK-MB (CK-2) Total Protein Albumin Urine Creatinine Urine Chloride 04/04/17 04/04/17 04/04/17 05:12 06:17 12:32 WBC RBC Hgb Hct MCV MCH MCHC RDW Plt Count Lymph % (Auto) [place] % (Auto) Lymph # [place] # Seg Neutrophils % Seg Neuts % (Manual) Lymphocytes % (Manual) Monocytes % (Manual) Seg Neutrophils # Seg Neutrophils # Man Lymphocytes # (Manual) Monocytes # (Manual) Eosinophils # (Manual) PT INR APTT Heparin Anti-Xa Level POC ABG pH POC ABG pCO2 34.3 L POC ABG pO2 Sodium Potassium Chloride Carbon Dioxide BUN Creatinine Glucose POC Glucose 188 H 173 H Calcium Phosphorus Magnesium Total Bilirubin AST Total Creatine Kinase CK-MB (CK-2) Total Protein Albumin Urine Creatinine Urine Chloride 04/04/17 04/04/17 04/05/17 18:19 19:00 00:08 WBC RBC Hgb Hct MCV MCH MCHC RDW Plt Count Lymph % (Auto) [place] % (Auto) Lymph # [place] # Seg Neutrophils % Seg Neuts % (Manual) Lymphocytes % (Manual) Monocytes % (Manual) Seg Neutrophils # Seg Neutrophils # Man Lymphocytes # (Manual) Monocytes # (Manual) Eosinophils # (Manual) PT INR APTT Heparin Anti-Xa Level 0.98 H POC ABG pH POC ABG pCO2 POC ABG pO2 Sodium Potassium Chloride Carbon Dioxide BUN Creatinine Glucose POC Glucose 167 H 181 H Calcium Phosphorus Magnesium Total Bilirubin AST Total Creatine Kinase CK-MB (CK-2) Total Protein Albumin Urine Creatinine Urine Chloride 04/05/17 04/05/17 04/05/17 04:29 05:24 11:42 WBC RBC Hgb Hct MCV MCH MCHC RDW Plt Count Lymph % (Auto) [place] % (Auto) Lymph # [place] # Seg Neutrophils % Seg Neuts % (Manual) Lymphocytes % (Manual) Monocytes % (Manual) Seg Neutrophils # Seg Neutrophils # Man Lymphocytes # (Manual) Monocytes # (Manual) Eosinophils # (Manual) PT INR APTT Heparin Anti-Xa Level POC ABG pH 7.453 H POC ABG pCO2 33.7 L POC ABG pO2 Sodium Potassium Chloride Carbon Dioxide BUN Creatinine Glucose POC Glucose 180 H 166 H Calcium Phosphorus Magnesium Total Bilirubin AST Total Creatine Kinase CK-MB (CK-2) Total Protein Albumin Urine Creatinine Urine Chloride 04/05/17 04/06/17 04/06/17 17:43 00:16 05:08 WBC RBC Hgb Hct MCV MCH MCHC RDW Plt Count Lymph % (Auto) [place] % (Auto) Lymph # [place] # Seg Neutrophils % Seg Neuts % (Manual) Lymphocytes % (Manual) Monocytes % (Manual) Seg Neutrophils # Seg Neutrophils # Man Lymphocytes # (Manual) Monocytes # (Manual) Eosinophils # (Manual) PT INR APTT Heparin Anti-Xa Level POC ABG pH POC ABG pCO2 POC ABG pO2 Sodium Potassium Chloride Carbon Dioxide BUN Creatinine Glucose POC Glucose 165 H 172 H 166 H Calcium Phosphorus Magnesium Total Bilirubin AST Total Creatine Kinase CK-MB (CK-2) Total Protein Albumin Urine Creatinine Urine Chloride 04/06/17 04/06/17 04/06/17 06:30 06:30 12:15 WBC 12.8 H RBC 3.20 L Hgb 10.0 L Hct 30.1 L MCV MCH MCHC RDW 15.8 H Plt Count Lymph % (Auto) [place] % (Auto) Lymph # [place] # Seg Neutrophils % Seg Neuts % (Manual) 97.0 H Lymphocytes % (Manual) 0 L Monocytes % (Manual) Seg Neutrophils # Seg Neutrophils # Man 12.4 H Lymphocytes # (Manual) 0.0 L Monocytes # (Manual) Eosinophils # (Manual) PT INR APTT Heparin Anti-Xa Level POC ABG pH POC ABG pCO2 POC ABG pO2 Sodium 131 L Potassium Chloride 92.5 L Carbon Dioxide 20 L BUN 74 H Creatinine 4.7 H Glucose 185 H POC Glucose 166 H Calcium 8.0 L Phosphorus Magnesium Total Bilirubin AST Total Creatine Kinase CK-MB (CK-2) Total Protein Albumin Urine Creatinine Urine Chloride 04/06/17 04/06/17 04/07/17 17:52 23:16 05:45 WBC RBC Hgb Hct MCV MCH MCHC RDW Plt Count Lymph % (Auto) [place] % (Auto) Lymph # [place] # Seg Neutrophils % Seg Neuts % (Manual) Lymphocytes % (Manual) Monocytes % (Manual) Seg Neutrophils # Seg Neutrophils # Man Lymphocytes # (Manual) Monocytes # (Manual) Eosinophils # (Manual) PT INR APTT Heparin Anti-Xa Level POC ABG pH POC ABG pCO2 POC ABG pO2 Sodium Potassium Chloride Carbon Dioxide BUN Creatinine Glucose POC Glucose 174 H 173 H 154 H Calcium Phosphorus Magnesium Total Bilirubin AST Total Creatine Kinase CK-MB (CK-2) Total Protein Albumin Urine Creatinine Urine Chloride 04/07/17 04/07/17 04/07/17 06:00 06:00 09:21 WBC RBC 3.32 L Hgb 10.3 L Hct 31.3 L MCV MCH MCHC RDW 15.7 H Plt Count 125 L Lymph % (Auto) [place] % (Auto) Lymph # [place] # Seg Neutrophils % Seg Neuts % (Manual) 90.0 H Lymphocytes % (Manual) 5.0 L Monocytes % (Manual) Seg Neutrophils # Seg Neutrophils # Man 9.7 H Lymphocytes # (Manual) 0.5 L Monocytes # (Manual) Eosinophils # (Manual) PT INR APTT Heparin Anti-Xa Level POC ABG pH 7.323 L POC ABG pCO2 POC ABG pO2 Sodium 131 L Potassium Chloride 91.9 L Carbon Dioxide 20 L BUN 62 H Creatinine 3.8 H Glucose 178 H POC Glucose Calcium Phosphorus Magnesium Total Bilirubin AST Total Creatine Kinase CK-MB (CK-2) Total Protein Albumin Urine Creatinine Urine Chloride 04/07/17 04/07/17 04/07/17 12:23 17:20 23:43 WBC RBC Hgb Hct MCV MCH MCHC RDW Plt Count Lymph % (Auto) [place] % (Auto) Lymph # [place] # Seg Neutrophils % Seg Neuts % (Manual) Lymphocytes % (Manual) Monocytes % (Manual) Seg Neutrophils # Seg Neutrophils # Man Lymphocytes # (Manual) Monocytes # (Manual) Eosinophils # (Manual) PT INR APTT Heparin Anti-Xa Level POC ABG pH POC ABG pCO2 POC ABG pO2 Sodium Potassium Chloride Carbon Dioxide BUN Creatinine Glucose POC Glucose 160 H 169 H 176 H Calcium Phosphorus Magnesium Total Bilirubin AST Total Creatine Kinase CK-MB (CK-2) Total Protein Albumin Urine Creatinine Urine Chloride 04/08/17 04/08/17 04/08/17 06:08 08:18 08:18 WBC RBC 3.50 L Hgb 11.0 L Hct 33.7 L MCV 96 H MCH MCHC RDW 15.6 H Plt Count 130 L Lymph % (Auto) [place] % (Auto) Lymph # [place] # Seg Neutrophils % Seg Neuts % (Manual) 88.0 H Lymphocytes % (Manual) 6.0 L Monocytes % (Manual) Seg Neutrophils # Seg Neutrophils # Man 9.2 H Lymphocytes # (Manual) 0.6 L Monocytes # (Manual) Eosinophils # (Manual) PT INR APTT Heparin Anti-Xa Level POC ABG pH POC ABG pCO2 POC ABG pO2 Sodium 127 L Potassium 5.7 H D Chloride 88.5 L Carbon Dioxide 19 L BUN 92 H Creatinine 5.0 H Glucose 176 H POC Glucose 191 H Calcium 8.1 L Phosphorus Magnesium Total Bilirubin AST Total Creatine Kinase CK-MB (CK-2) Total Protein Albumin Urine Creatinine Urine Chloride 04/08/17 04/08/17 04/09/17 08:18 11:52 03:27 WBC RBC Hgb Hct MCV MCH MCHC RDW Plt Count Lymph % (Auto) [place] % (Auto) Lymph # [place] # Seg Neutrophils % Seg Neuts % (Manual) Lymphocytes % (Manual) Monocytes % (Manual) Seg Neutrophils # Seg Neutrophils # Man Lymphocytes # (Manual) Monocytes # (Manual) Eosinophils # (Manual) PT INR APTT Heparin Anti-Xa Level 1.02 H POC ABG pH POC ABG pCO2 POC ABG pO2 Sodium Potassium Chloride Carbon Dioxide BUN Creatinine Glucose POC Glucose 176 H 208 H Calcium Phosphorus Magnesium Total Bilirubin AST Total Creatine Kinase CK-MB (CK-2) Total Protein Albumin Urine Creatinine Urine Chloride 04/09/17 04/09/17 04/09/17 04:45 04:45 06:34 WBC RBC 3.21 L Hgb 10.1 L Hct 30.6 L MCV 96 H MCH MCHC RDW 15.3 H Plt Count 127 L Lymph % (Auto) 1.9 L [place] % (Auto) 8.4 H Lymph # 0.2 L [place] # Seg Neutrophils % 89.7 H Seg Neuts % (Manual) Lymphocytes % (Manual) Monocytes % (Manual) Seg Neutrophils # Seg Neutrophils # Man Lymphocytes # (Manual) Monocytes # (Manual) Eosinophils # (Manual) PT INR APTT Heparin Anti-Xa Level POC ABG pH POC ABG pCO2 POC ABG pO2 Sodium 130 L Potassium Chloride 89.8 L Carbon Dioxide BUN 60 H Creatinine 3.3 H Glucose 182 H POC Glucose 198 H Calcium 7.5 L Phosphorus Magnesium Total Bilirubin AST Total Creatine Kinase CK-MB (CK-2) Total Protein Albumin Urine Creatinine Urine Chloride 04/09/17 04/10/17 04/10/17 11:53 01:11 03:00 WBC RBC Hgb Hct MCV MCH MCHC RDW Plt Count Lymph % (Auto) [place] % (Auto) Lymph # [place] # Seg Neutrophils % Seg Neuts % (Manual) Lymphocytes % (Manual) Monocytes % (Manual) Seg Neutrophils # Seg Neutrophils # Man Lymphocytes # (Manual) Monocytes # (Manual) Eosinophils # (Manual) PT 16.2 H INR 1.24 H APTT Heparin Anti-Xa Level POC ABG pH POC ABG pCO2 POC ABG pO2 Sodium Potassium Chloride Carbon Dioxide BUN Creatinine Glucose POC Glucose 212 H 224 H Calcium Phosphorus Magnesium Total Bilirubin AST Total Creatine Kinase CK-MB (CK-2) Total Protein Albumin Urine Creatinine Urine Chloride 04/10/17 04/10/17 04/10/17 04:30 06:52 11:07 WBC RBC 3.29 L Hgb 10.2 L Hct 30.6 L MCV MCH MCHC RDW 15.7 H Plt Count 105 L Lymph % (Auto) 2.3 L [place] % (Auto) 8.1 H Lymph # 0.2 L [place] # 0.9 H Seg Neutrophils % 89.6 H Seg Neuts % (Manual) Lymphocytes % (Manual) Monocytes % (Manual) Seg Neutrophils # 9.8 H Seg Neutrophils # Man Lymphocytes # (Manual) Monocytes # (Manual) Eosinophils # (Manual) PT INR APTT Heparin Anti-Xa Level POC ABG pH POC ABG pCO2 POC ABG pO2 Sodium Potassium Chlor[place] Carbon Dioxide BUN Creatinine Glucose POC Glucose 219 H 302 H Calcium Phosphorus Magnesium Total Bilirubin AST Total Creatine Kinase CK-MB (CK-2) Total Protein Albumin Urine Creatinine Urine Chloride 04/10/17 Unknown WBC RBC Hgb Hct MCV MCH MCHC RDW Plt Count Lymph % (Auto) [place] % (Auto) Lymph # [place] # Seg Neutrophils % Seg Neuts % (Manual) Lymphocytes % (Manual) Monocytes % (Manual) Seg Neutrophils # Seg Neutrophils # Man Lymphocytes # (Manual) Monocytes # (Manual) Eosinophils # (Manual) PT INR APTT Heparin Anti-Xa Level POC ABG pH POC ABG pCO2 POC ABG pO2 Sodium 133 L Potassium Chlor[place] 91.5 L Carbon Dioxide BUN 51 H Creatinine 3.0 H Glucose 217 H POC Glucose Calcium 7.5 L Phosphorus Magnesium Total Bilirubin AST Total Creatine Kinase CK-MB (CK-2) Total Protein Albumin Urine Creatinine Urine Chloride
[2017-04-10] MEDS ORDERED: COUMADIN PO SCH (17:00)
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
[2017-04-11] MEDS: CARDIZEM PO SCH ×5 (01:02→23:07)
[2017-04-11] MEDS: NOVOLOG SUB-Q SCH ×4 (01:29→21:01)
[2017-04-11] MEDS: DUONEB *Not for PRN Use IH SCH ×5 (02:11→21:49)
[2017-04-11 06:38] LABS: Basophils % (Auto) 0.1 % (0.0-1.8); Hematocrit 30.2 % (35.5-45.6); Hemoglobin 10.1 gm/dl (11.8-15.2); Mean Corpuscular HGB Conc 33 % (32-34); Mean Corpuscular Hemoglobin 31 pg (28-32); Mean Corpuscular Volume 93 fl (84-94); Red Blood Count 3.24 M/mm3 (3.65-5.03); Red Cell Distribution Width 15.3 % (13.2-15.2); White Blood Count 9.6 K/mm3 (4.5-11.0)
[2017-04-11 06:39] LABS: Platelet Count 85 K/mm3 (140-440)
[2017-04-11 06:40] LABS: Calcium 7.5 mg/dL (8.4-10.2); Chloride 89.5 mmol/L (98-107)
--- NOTE | 2017-04-11 07:10 | Progress Note ---
Subjective Principal diagnosis: afib, EtOH abuse, morbid obesity, respiratory failure status post extubatio Interval history: Patient was seen today for follow-up and multiple renal-related issue time of evaluation 7:30 in the [facility] Denies any acute complaints Vitals labs, Intake output and medications were reviewed HEENT: Oral mucosa moist Neck: Supple. No thyromegaly or JVD Chest: Clear to auscultation. No crackles, rales or wheezes Heart: Regular rate and rhythm, S1, S2 normal Abdomen: Soft, nontender, bowel sounds present Extremity: Edema less than 1+ dry skin assessment and plan Acute kidney injury patient is currently dialysis dependent continue with hemodialysis on Tuesday and Tuesday Patient still has some edema, ultrafiltration as tolerated. Urine output improving Monitor for recovery of renal function Possibility of underlying vancomycin toxicities there Atrial fibrillation with ejection fraction of 40% CT scan did not show any evidence of hydronephrosis Aspiration pneumonia, urinary tract infection, nephrolithiasis Ultrafiltration as tolerated with hemodialysis Monitor dialysis-related labs avoid any follow-up nephrotoxic medication hypotension and hypoxemia, monitor for renal function recovery Counseling and education was done regarding all renal-related issues. Well continue to follow and make recommendation from renal standpoint Objective - Vital Signs Vital signs: Vital Signs - 12hr 04/10/17 04/10/17 04/10/17 19:22 19:23 19:32 Temperature Pulse Rate Pulse Rate [ 98 H 101 H Anterior Bilateral Throughout] Pulse Rate [ Left Radial] Respiratory Rate Respiratory 18 17 Rate [Anterior Bilateral Throughout] Blood Pressure [Left Arm] O2 Sat by Pulse 95 Oximetry 04/11/17 04/11/17 04/11/17 00:00 02:11 02:12 Temperature 99.3 F Pulse Rate 89 Pulse Rate [ 89 Anterior Bilateral Throughout] Pulse Rate [ 81 Left Radial] Respiratory 20 18 Rate Respiratory 17 Rate [Anterior Bilateral Throughout] Blood Pressure 122/80 [Left Arm] O2 Sat by Pulse 95 97 Oximetry 04/11/17 04/11/17 04/11/17 02:21 03:00 06:37 Temperature 98.5 F Pulse Rate 79 Pulse Rate [ 89 Anterior Bilateral Throughout] Pulse Rate [ 74 Left Radial] Respiratory 20 Rate Respiratory 18 Rate [Anterior Bilateral Throughout] Blood Pressure 127/83 [Left Arm] O2 Sat by Pulse 97 Oximetry - Lab 04/11/17 05:46 04/11/17 05:46 Most recent lab results Calcium 7.5 mg/dL (8.4-10.2) L 04/11/17 05:46 Phosphorus 4.60 mg/dL (2.5-4.5) H 03/06/17 04:50 Magnesium 1.60 mg/dL (1.7-2.3) L 03/19/17 06:55 Urine Creatinine 86.5 mg/dL (0.1-20.0) H 03/29/17 22:10 Urine Sodium 28 mEq/L 03/29/17 22:10
[2017-04-11] MEDS: ZESTRIL PO SCH (10:43)
[2017-04-11] MEDS: PROTONIX PO SCH (10:43)
[2017-04-11] MEDS: APRESOLINE PO SCH ×3 (10:43→22:29)
[2017-04-11] MEDS: FOLVITE PO SCH (10:43)
[2017-04-11] MEDS: LOPRESSOR PO SCH ×3 (10:43→22:29)
[2017-04-11] MEDS: VITAMIN B-1 PO SCH (10:44)
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
[2017-04-11 11:32] LABS: INR 1.92 (0.87-1.13)
--- NOTE | 2017-04-11 14:42 | Progress Note ---
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 L Chloride 95.3 L Carbon Dioxide 37 H BUN 29 H Creatinine Glucose 155 H POC Glucose Calcium Phosphorus Magnesium Total Bilirubin AST Total Creatine Kinase CK-MB (CK-2) Total Protein Albumin Urine Creatinine Urine Chloride 03/18/17 03/18/17 03/18/17 08:27 11:24 11:31 WBC RBC Hgb Hct MCV MCH MCHC RDW Plt Count Lymph % (Auto) [place] % (Auto) Lymph # [place] # Seg Neutrophils % Seg Neuts % (Manual) Lymphocytes % (Manual) Monocytes % (Manual) Seg Neutrophils # Seg Neutrophils # Man Lymphocytes # (Manual) Monocytes # (Manual) Eosinophils # (Manual) PT INR APTT Heparin Anti-Xa Level POC ABG pH 7.530 H POC ABG pCO2 POC ABG pO2 60 L Sodium Potassium Chloride Carbon Dioxide BUN Creatinine Glucose POC Glucose 123 H 176 H Calcium Phosphorus Magnesium Total Bilirubin AST Total Creatine Kinase CK-MB (CK-2) Total Protein Albumin Urine Creatinine Urine Chloride 03/18/17 03/18/17 03/18/17 14:10 15:24 17:23 WBC RBC Hgb 15.4 H Hct 46.4 H MCV MCH MCHC RDW Plt Count Lymph % (Auto) [place] % (Auto) Lymph # [place] # Seg Neutrophils % Seg Neuts % (Manual) Lymphocytes % (Manual) Monocytes % (Manual) Seg Neutrophils # Seg Neutrophils # Man Lymphocytes # (Manual) Monocytes # (Manual) Eosinophils # (Manual) PT INR APTT Heparin Anti-Xa Level POC ABG pH POC ABG pCO2 POC ABG pO2 Sodium Potassium Chloride 94.5 L Carbon Dioxide 33 H BUN 33 H Creatinine 1.6 H Glucose 241 H POC Glucose 244 H Calcium Phosphorus Magnesium Total Bilirubin AST Total Creatine Kinase CK-MB (CK-2) Total Protein Albumin 3.0 L Urine Creatinine Urine Chloride 03/18/17 03/18/17 03/19/17 17:23 21:33 03:54 WBC 25.4 H RBC Hgb Hct MCV 98 H MCH MCHC RDW Plt Count Lymph % (Auto) [place] % (Auto) Lymph # [place] # Seg Neutrophils % Seg Neuts % (Manual) 83.0 H Lymphocytes % (Manual) 4.5 L Monocytes % (Manual) 8.0 H Seg Neutrophils # Seg Neutrophils # Man 21.1 H Lymphocytes # (Manual) 1.1 L Monocytes # (Manual) 2.0 H Eosinophils # (Manual) PT 17.1 H INR 1.40 H APTT Heparin Anti-Xa Level POC ABG pH POC ABG pCO2 POC ABG pO2 Sodium Potassium Chloride Carbon Dioxide BUN Creatinine Glucose POC Glucose 164 H Calcium Phosphorus Magnesium Total Bilirubin AST Total Creatine Kinase CK-MB (CK-2) Total Protein Albumin Urine Creatinine Urine Chloride 03/19/17 03/19/17 03/19/17 03:54 06:55 06:55 WBC RBC Hgb Hct MCV MCH MCHC RDW Plt Count Lymph % (Auto) [place] % (Auto) Lymph # [place] # Seg Neutrophils % Seg Neuts % (Manual) Lymphocytes % (Manual) Monocytes % (Manual) Seg Neutrophils # Seg Neutrophils # Man Lymphocytes # (Manual) Monocytes # (Manual) Eosinophils # (Manual) PT INR APTT Heparin Anti-Xa Level 0.29 L POC ABG pH POC ABG pCO2 POC ABG pO2 Sodium 146 H Potassium 3.4 L Chloride 97.8 L Carbon Dioxide 33 H BUN 30 H Creatinine Glucose 134 H POC Glucose Calcium Phosphorus Magnesium 1.60 L Total Bilirubin AST Total Creatine Kinase CK-MB (CK-2) Total Protein Albumin Urine Creatinine Urine Chloride 0603/19/17 03/19/17 08:01 12:56 14:54 WBC RBC Hgb Hct MCV MCH MCHC RDW Plt Count Lymph % (Auto) [place] % (Auto) Lymph # [place] # Seg Neutrophils % Seg Neuts % (Manual) Lymphocytes % (Manual) Monocytes % (Manual) Seg Neutrophils # Seg Neutrophils # Man Lymphocytes # (Manual) Monocytes # (Manual) Eosinophils # (Manual) PT INR APTT Heparin Anti-Xa Level POC ABG pH POC ABG pCO2 57.8 H POC ABG pO2 71 L Sodium Potassium Chloride Carbon Dioxide BUN Creatinine Glucose POC Glucose 139 H 167 H Calcium Phosphorus Magnesium Total Bilirubin AST Total Creatine Kinase CK-MB (CK-2) Total Protein Albumin Urine Creatinine Urine Chloride 03/19/17 03/19/17 03/20/17 15:53 21:04 03:36 WBC RBC Hgb 15.3 H Hct 48.1 H MCV MCH MCHC RDW Plt Count Lymph % (Auto) [place] % (Auto) Lymph # [place] # Seg Neutrophils % Seg Neuts % (Manual) Lymphocytes % (Manual) Monocytes % (Manual) Seg Neutrophils # Seg Neutrophils # Man Lymphocytes # (Manual) Monocytes # (Manual) Eosinophils # (Manual) PT INR APTT Heparin Anti-Xa Level POC ABG pH POC ABG pCO2 POC ABG pO2 Sodium Potassium Chloride Carbon Dioxide BUN Creatinine Glucose POC Glucose 172 H 159 H Calcium Phosphorus Magnesium Total Bilirubin AST Total Creatine Kinase CK-MB (CK-2) Total Protein Albumin Urine Creatinine Urine Chloride 03/20/17 03/20/17 03/20/17 07:45 12:02 14:07 WBC RBC Hgb Hct MCV MCH MCHC RDW Plt Count Lymph % (Auto) [place] % (Auto) Lymph # [place] # Seg Neutrophils % Seg Neuts % (Manual) Lymphocytes % (Manual) Monocytes % (Manual) Seg Neutrophils # Seg Neutrophils # Man Lymphocytes # (Manual) Monocytes # (Manual) Eosinophils # (Manual) PT INR APTT Heparin Anti-Xa Level POC ABG pH 7.312 L POC ABG pCO2 68.3 H POC ABG pO2 47 L Sodium Potassium Chloride Carbon Dioxide BUN Creatinine Glucose POC Glucose 160 H 142 H Calcium Phosphorus Magnesium Total Bilirubin AST Total Creatine Kinase CK-MB (CK-2) Total Protein Albumin Urine Creatinine Urine Chloride 03/20/17 03/20/17 03/20/17 15:57 15:59 19:50 WBC RBC Hgb Hct MCV MCH MCHC RDW Plt Count Lymph % (Auto) [place] % (Auto) Lymph # [place] # Seg Neutrophils % Seg Neuts % (Manual) Lymphocytes % (Manual) Monocytes % (Manual) Seg Neutrophils # Seg Neutrophils # Man Lymphocytes # (Manual) Monocytes # (Manual) Eosinophils # (Manual) PT INR APTT Heparin Anti-Xa Level POC ABG pH 7.214 L POC ABG pCO2 82.8 H 58.7 H POC ABG pO2 69 L Sodium Potassium Chloride Carbon Dioxide BUN Creatinine Glucose POC Glucose 149 H Calcium Phosphorus Magnesium Total Bilirubin AST Total Creatine Kinase CK-MB (CK-2) Total Protein Albumin Urine Creatinine Urine Chloride 03/20/17 03/20/17 03/21/17 21:19 23:34 04:18 WBC RBC Hgb Hct MCV MCH MCHC RDW Plt Count Lymph % (Auto) [place] % (Auto) Lymph # [place] # Seg Neutrophils % Seg Neuts % (Manual) Lymphocytes % (Manual) Monocytes % (Manual) Seg Neutrophils # Seg Neutrophils # Man Lymphocytes # (Manual) Monocytes # (Manual) Eosinophils # (Manual) PT INR APTT Heparin Anti-Xa Level 0.20 L POC ABG pH POC ABG pCO2 48.6 H POC ABG pO2 79 L Sodium Potassium Chloride Carbon Dioxide BUN Creatinine Glucose POC Glucose 206 H Calcium Phosphorus Magnesium Total Bilirubin AST Total Creatine Kinase CK-MB (CK-2) Total Protein Albumin Urine Creatinine Urine Chloride 03/21/17 03/21/17 03/21/17 04:21 04:21 05:23 WBC RBC Hgb Hct MCV MCH MCHC RDW Plt Count Lymph % (Auto) [place] % (Auto) Lymph # [place] # Seg Neutrophils % Seg Neuts % (Manual) Lymphocytes % (Manual) Monocytes % (Manual) Seg Neutrophils # Seg Neutrophils # Man Lymphocytes # (Manual) Monocytes # (Manual) Eosinophils # (Manual) PT INR APTT Heparin Anti-Xa Level 0.24 L POC ABG pH POC ABG pCO2 POC ABG pO2 Sodium 147 H Potassium Chloride Carbon Dioxide BUN 42 H Creatinine 2.6 H D Glucose 209 H POC Glucose 181 H Calcium 7.9 L Phosphorus Magnesium Total Bilirubin AST Total Creatine Kinase CK-MB (CK-2) Total Protein Albumin Urine Creatinine Urine Chloride 03/21/17 03/21/17 03/21/17 13:16 13:16 14:43 WBC 27.8 H RBC Hgb Hct MCV 101 H D MCH MCHC RDW Plt Count Lymph % (Auto) [place] % (Auto) Lymph # [place] # Seg Neutrophils % Seg Neuts % (Manual) 76.0 H Lymphocytes % (Manual) 7.0 L Monocytes % (Manual) Seg Neutrophils # Seg Neutrophils # Man 21.1 H Lymphocytes # (Manual) Monocytes # (Manual) 1.1 H Eosinophils # (Manual) PT INR APTT Heparin Anti-Xa Level 0.25 L POC ABG pH 7.474 H POC ABG pCO2 POC ABG pO2 59 L Sodium Potassium Chloride Carbon Dioxide BUN Creatinine Glucose POC Glucose Calcium Phosphorus Magnesium Total Bilirubin AST Total Creatine Kinase CK-MB (CK-2) Total Protein Albumin Urine Creatinine Urine Chloride 03/21/17 03/21/17 03/21/17 17:00 18:20 23:40 WBC RBC Hgb Hct MCV MCH MCHC RDW Plt Count Lymph % (Auto) [place] % (Auto) Lymph # [place] # Seg Neutrophils % Seg Neuts % (Manual) Lymphocytes % (Manual) Monocytes % (Manual) Seg Neutrophils # Seg Neutrophils # Man Lymphocytes # (Manual) Monocytes # (Manual) Eosinophils # (Manual) PT INR APTT Heparin Anti-Xa Level POC ABG pH POC ABG pCO2 POC ABG pO2 Sodium Potassium Chloride Carbon Dioxide BUN 48 H Creatinine 3.2 H Glucose 135 H POC Glucose 152 H 136 H Calcium 6.8 L Phosphorus Magnesium Total Bilirubin AST Total Creatine Kinase CK-MB (CK-2) Total Protein 5.3 L D Albumin 1.7 L Urine Creatinine Urine Chloride 03/22/17 03/22/17 03/22/17 04:30 04:30 04:30 WBC 29.3 H RBC Hgb Hct MCV 100 H MCH MCHC 31 L RDW 15.3 H Plt Count Lymph % (Auto) [place] % (Auto) Lymph # [place] # Seg Neutrophils % Seg Neuts % (Manual) Lymphocytes % (Manual) Monocytes % (Manual) Seg Neutrophils # Seg Neutrophils # Man Lymphocytes # (Manual) Monocytes # (Manual) Eosinophils # (Manual) PT INR APTT Heparin Anti-Xa Level 0.29 L POC ABG pH POC ABG pCO2 POC ABG pO2 Sodium Potassium Chloride Carbon Dioxide BUN 60 H Creatinine 4.3 H Glucose 118 H POC Glucose Calcium 8.2 L D Phosphorus Magnesium Total Bilirubin AST Total Creatine Kinase CK-MB (CK-2) Total Protein Albumin 1.8 L Urine Creatinine Urine Chloride 03/22/17 03/22/17 03/22/17 05:08 07:00 07:00 WBC 24.8 H RBC Hgb Hct MCV 100 H MCH MCHC RDW Plt Count Lymph % (Auto) [place] % (Auto) Lymph # [place] # Seg Neutrophils % Seg Neuts % (Manual) 94.0 H Lymphocytes % (Manual) 0 L Monocytes % (Manual) Seg Neutrophils # Seg Neutrophils # Man 23.3 H Lymphocytes # (Manual) 0.0 L Monocytes # (Manual) Eosinophils # (Manual) 0.7 H PT INR APTT Heparin Anti-Xa Level POC ABG pH POC ABG pCO2 POC ABG pO2 Sodium 147 H Potassium Chloride 109.2 H Carbon Dioxide BUN 58 H Creatinine 4.1 H Glucose 117 H POC Glucose 124 H Calcium 7.4 L Phosphorus Magnesium Total Bilirubin AST Total Creatine Kinase CK-MB (CK-2) Total Protein Albumin Urine Creatinine Urine Chloride 03/22/17 03/22/17 03/22/17 08:40 11:37 14:30 WBC RBC Hgb Hct MCV MCH MCHC RDW Plt Count Lymph % (Auto) [place] % (Auto) Lymph # [place] # Seg Neutrophils % Seg Neuts % (Manual) Lymphocytes % (Manual) Monocytes % (Manual) Seg Neutrophils # Seg Neutrophils # Man Lymphocytes # (Manual) Monocytes # (Manual) Eosinophils # (Manual) PT 16.2 H INR 1.31 H APTT 68.9 H* Heparin Anti-Xa Level < 0.10 L POC ABG pH POC ABG pCO2 POC ABG pO2 Sodium Potassium Chloride Carbon Dioxide BUN Creatinine Glucose POC Glucose 159 H Calcium Phosphorus Magnesium Total Bilirubin AST Total Creatine Kinase CK-MB (CK-2) Total Protein Albumin Urine Creatinine Urine Chloride 03/22/17 03/22/17 03/22/17 17:53 21:44 23:54 WBC RBC Hgb 11.6 L Hct 33.1 L MCV MCH MCHC RDW Plt Count Lymph % (Auto) [place] % (Auto) Lymph # [place] # Seg Neutrophils % Seg Neuts % (Manual) Lymphocytes % (Manual) Monocytes % (Manual) Seg Neutrophils # Seg Neutrophils # Man Lymphocytes # (Manual) Monocytes # (Manual) Eosinophils # (Manual) PT INR APTT Heparin Anti-Xa Level POC ABG pH POC ABG pCO2 POC ABG pO2 Sodium Potassium Chloride Carbon Dioxide BUN Creatinine Glucose POC Glucose 142 H 131 H Calcium Phosphorus Magnesium Total Bilirubin AST Total Creatine Kinase CK-MB (CK-2) Total Protein Albumin Urine Creatinine Urine Chloride 03/23/17 03/23/17 03/23/17 04:08 05:29 06:34 WBC RBC Hgb Hct MCV MCH MCHC RDW Plt Count Lymph % (Auto) [place] % (Auto) Lymph # [place] # Seg Neutrophils % Seg Neuts % (Manual) Lymphocytes % (Manual) Monocytes % (Manual) Seg Neutrophils # Seg Neutrophils # Man Lymphocytes # (Manual) Monocytes # (Manual) Eosinophils # (Manual) PT INR APTT Heparin Anti-Xa Level POC ABG pH POC ABG pCO2 POC ABG pO2 75 L Sodium Potassium Chloride Carbon Dioxide 21 L BUN 85 H Creatinine 6.0 H Glucose 134 H POC Glucose 134 H Calcium 8.1 L Phosphorus Magnesium Total Bilirubin AST Total Creatine Kinase CK-MB (CK-2) Total Protein Albumin Urine Creatinine Urine Chloride 03/23/17 03/23/17 03/23/17 12:09 17:20 17:52 WBC RBC Hgb Hct MCV MCH MCHC RDW Plt Count Lymph % (Auto) [place] % (Auto) Lymph # [place] # Seg Neutrophils % Seg Neuts % (Manual) Lymphocytes % (Manual) Monocytes % (Manual) Seg Neutrophils # Seg Neutrophils # Man Lymphocytes # (Manual) Monocytes # (Manual) Eosinophils # (Manual) PT INR APTT Heparin Anti-Xa Level 1.39 H POC ABG pH POC ABG pCO2 POC ABG pO2 Sodium Potassium Chloride Carbon Dioxide BUN Creatinine Glucose POC Glucose 133 H 151 H Calcium Phosphorus Magnesium Total Bilirubin AST Total Creatine Kinase CK-MB (CK-2) Total Protein Albumin Urine Creatinine Urine Chloride 03/23/17 03/24/17 03/24/17 23:59 03:15 03:15 WBC 23.9 H RBC 3.58 L Hgb 11.6 L Hct 34.6 L MCV 97 H D MCH MCHC RDW Plt Count 122 L Lymph % (Auto) [place] % (Auto) Lymph # [place] # Seg Neutrophils % Seg Neuts % (Manual) Lymphocytes % (Manual) Monocytes % (Manual) Seg Neutrophils # Seg Neutrophils # Man Lymphocytes # (Manual) Monocytes # (Manual) Eosinophils # (Manual) PT INR APTT Heparin Anti-Xa Level POC ABG pH POC ABG pCO2 POC ABG pO2 Sodium 135 L Potassium Chloride 95.0 L Carbon Dioxide BUN 71 H Creatinine 5.2 H Glucose 123 H POC Glucose 124 H Calcium 8.0 L Phosphorus Magnesium Total Bilirubin AST Total Creatine Kinase CK-MB (CK-2) Total Protein Albumin Urine Creatinine Urine Chloride 03/24/17 03/24/17 03/24/17 03:15 04:53 11:58 WBC RBC Hgb Hct MCV MCH MCHC RDW Plt Count Lymph % (Auto) [place] % (Auto) Lymph # [place] # Seg Neutrophils % Seg Neuts % (Manual) Lymphocytes % (Manual) Monocytes % (Manual) Seg Neutrophils # Seg Neutrophils # Man Lymphocytes # (Manual) Monocytes # (Manual) Eosinophils # (Manual) PT INR APTT Heparin Anti-Xa Level 0.20 L POC ABG pH POC ABG pCO2 POC ABG pO2 72 L Sodium Potassium Chloride Carbon Dioxide BUN Creatinine Glucose POC Glucose 121 H Calcium Phosphorus Magnesium Total Bilirubin AST Total Creatine Kinase CK-MB (CK-2) Total Protein Albumin Urine Creatinine Urine Chloride 03/24/17 03/25/17 03/25/17 18:16 00:24 05:30 WBC RBC Hgb Hct MCV MCH MCHC RDW Plt Count Lymph % (Auto) [place] % (Auto) Lymph # [place] # Seg Neutrophils % Seg Neuts % (Manual) Lymphocytes % (Manual) Monocytes % (Manual) Seg Neutrophils # Seg Neutrophils # Man Lymphocytes # (Manual) Monocytes # (Manual) Eosinophils # (Manual) PT INR APTT Heparin Anti-Xa Level POC ABG pH POC ABG pCO2 34.2 L POC ABG pO2 Sodium Potassium Chloride Carbon Dioxide BUN Creatinine Glucose POC Glucose 117 H 107 H Calcium Phosphorus Magnesium Total Bilirubin AST Total Creatine Kinase CK-MB (CK-2) Total Protein Albumin Urine Creatinine Urine Chloride 03/25/17 03/25/17 03/25/17 05:35 11:45 16:48 WBC RBC Hgb Hct MCV MCH MCHC RDW Plt Count Lymph % (Auto) [place] % (Auto) Lymph # [place] # Seg Neutrophils % Seg Neuts % (Manual) Lymphocytes % (Manual) Monocytes % (Manual) Seg Neutrophils # Seg Neutrophils # Man Lymphocytes # (Manual) Monocytes # (Manual) Eosinophils # (Manual) PT INR APTT Heparin Anti-Xa Level POC ABG pH POC ABG pCO2 POC ABG pO2 Sodium 132 L Potassium Chloride 92.0 L Carbon Dioxide 20 L BUN 102 H Creatinine 7.2 H Glucose 101 H POC Glucose 127 H 114 H Calcium 8.3 L Phosphorus Magnesium Total Bilirubin AST Total Creatine Kinase CK-MB (CK-2) Total Protein Albumin Urine Creatinine Urine Chloride 03/26/17 03/26/17 03/26/17 00:17 04:15 04:15 WBC 21.1 H RBC 3.52 L Hgb 11.0 L Hct 33.2 L MCV 95 H MCH MCHC RDW Plt Count 121 L Lymph % (Auto) [place] % (Auto) Lymph # [place] # Seg Neutrophils % Seg Neuts % (Manual) Lymphocytes % (Manual) Monocytes % (Manual) Seg Neutrophils # Seg Neutrophils # Man Lymphocytes # (Manual) Monocytes # (Manual) Eosinophils # (Manual) PT INR APTT Heparin Anti-Xa Level POC ABG pH POC ABG pCO2 POC ABG pO2 Sodium 133 L Potassium Chloride 92.9 L Carbon Dioxide 21 L BUN 77 H Creatinine 5.4 H Glucose 115 H POC Glucose 114 H Calcium 8.1 L Phosphorus Magnesium Total Bilirubin AST Total Creatine Kinase CK-MB (CK-2) Total Protein Albumin Urine Creatinine Urine Chloride 03/26/17 03/26/17 03/26/17 04:49 11:36 23:29 WBC RBC Hgb Hct MCV MCH MCHC RDW Plt Count Lymph % (Auto) [place] % (Auto) Lymph # [place] # Seg Neutrophils % Seg Neuts % (Manual) Lymphocytes % (Manual) Monocytes % (Manual) Seg Neutrophils # Seg Neutrophils # Man Lymphocytes # (Manual) Monocytes # (Manual) Eosinophils # (Manual) PT INR APTT Heparin Anti-Xa Level POC ABG pH POC ABG pCO2 POC ABG pO2 Sodium Potassium Chlor[place] Carbon Dioxide BUN Creatinine Glucose POC Glucose 127 H 123 H 125 H Calcium Phosphorus Magnesium Total Bilirubin AST Total Creatine Kinase CK-MB (CK-2) Total Protein Albumin Urine Creatinine Urine Chloride 03/27/17 03/27/17 03/27/17 04:00 04:46 05:06 WBC RBC Hgb Hct MCV MCH MCHC RDW Plt Count Lymph % (Auto) [place] % (Auto) Lymph # [place] # Seg Neutrophils % Seg Neuts % (Manual) Lymphocytes % (Manual) Monocytes % (Manual) Seg Neutrophils # Seg Neutrophils # Man Lymphocytes # (Manual) Monocytes # (Manual) Eosinophils # (Manual) PT INR APTT Heparin Anti-Xa Level POC ABG pH POC ABG pCO2 31.4 L POC ABG pO2 Sodium 132 L Potassium Chloride 90.5 L Carbon Dioxide 19 L BUN 95 H Creatinine 6.7 H Glucose 110 H POC Glucose 116 H Calcium Phosphorus Magnesium Total Bilirubin AST Total Creatine Kinase CK-MB (CK-2) Total Protein Albumin Urine Creatinine Urine Chloride 03/27/17 03/27/17 03/27/17 08:11 08:11 11:34 WBC 24.7 H RBC Hgb 11.5 L Hct 35.0 L MCV 95 H MCH MCHC RDW Plt Count Lymph % (Auto) [place] % (Auto) Lymph # [place] # Seg Neutrophils % Seg Neuts % (Manual) Lymphocytes % (Manual) Monocytes % (Manual) Seg Neutrophils # Seg Neutrophils # Man Lymphocytes # (Manual) Monocytes # (Manual) Eosinophils # (Manual) PT INR APTT Heparin Anti-Xa Level < 0.10 L POC ABG pH POC ABG pCO2 POC ABG pO2 Sodium Potassium Chloride Carbon Dioxide BUN Creatinine Glucose POC Glucose 118 H Calcium Phosphorus Magnesium Total Bilirubin AST Total Creatine Kinase CK-MB (CK-2) Total Protein Albumin Urine Creatinine Urine Chloride 03/27/17 03/27/17 03/28/17 16:44 23:59 05:07 WBC RBC Hgb Hct MCV MCH MCHC RDW Plt Count Lymph % (Auto) [place] % (Auto) Lymph # [place] # Seg Neutrophils % Seg Neuts % (Manual) Lymphocytes % (Manual) Monocytes % (Manual) Seg Neutrophils # Seg Neutrophils # Man Lymphocytes # (Manual) Monocytes # (Manual) Eosinophils # (Manual) PT INR APTT Heparin Anti-Xa Level POC ABG pH POC ABG pCO2 POC ABG pO2 Sodium Potassium Chloride Carbon Dioxide BUN Creatinine Glucose POC Glucose 110 H 109 H 110 H Calcium Phosphorus Magnesium Total Bilirubin AST Total Creatine Kinase CK-MB (CK-2) Total Protein Albumin Urine Creatinine Urine Chloride 03/28/17 03/28/17 03/28/17 07:00 11:24 11:50 WBC 26.6 H RBC 3.42 L Hgb 10.8 L Hct 33.2 L MCV 97 H MCH MCHC RDW 15.4 H Plt Count Lymph % (Auto) [place] % (Auto) Lymph # [place] # Seg Neutrophils % Seg Neuts % (Manual) Lymphocytes % (Manual) Monocytes % (Manual) Seg Neutrophils # Seg Neutrophils # Man Lymphocytes # (Manual) Monocytes # (Manual) Eosinophils # (Manual) PT INR APTT Heparin Anti-Xa Level POC ABG pH POC ABG pCO2 POC ABG pO2 Sodium 131 L Potassium 5.3 H Chloride 86.6 L Carbon Dioxide 17 L BUN 112 H Creatinine 7.9 H Glucose 120 H POC Glucose 141 H Calcium Phosphorus Magnesium Total Bilirubin AST Total Creatine Kinase CK-MB (CK-2) Total Protein Albumin Urine Creatinine Urine Chloride 03/28/17 03/28/17 03/28/17 17:25 18:04 23:07 WBC RBC Hgb Hct MCV MCH MCHC RDW Plt Count Lymph % (Auto) [place] % (Auto) Lymph # [place] # Seg Neutrophils % Seg Neuts % (Manual) Lymphocytes % (Manual) Monocytes % (Manual) Seg Neutrophils # Seg Neutrophils # Man Lymphocytes # (Manual) Monocytes # (Manual) Eosinophils # (Manual) PT INR APTT Heparin Anti-Xa Level 0.23 L POC ABG pH POC ABG pCO2 POC ABG pO2 Sodium Potassium Chloride Carbon Dioxide BUN Creatinine Glucose POC Glucose 128 H 115 H Calcium Phosphorus Magnesium Total Bilirubin AST Total Creatine Kinase CK-MB (CK-2) Total Protein Albumin Urine Creatinine Urine Chloride 03/29/17 03/29/17 03/29/17 03:23 05:16 08:20 WBC RBC Hgb Hct MCV MCH MCHC RDW Plt Count Lymph % (Auto) [place] % (Auto) Lymph # [place] # Seg Neutrophils % Seg Neuts % (Manual) Lymphocytes % (Manual) Monocytes % (Manual) Seg Neutrophils # Seg Neutrophils # Man Lymphocytes # (Manual) Monocytes # (Manual) Eosinophils # (Manual) PT INR APTT Heparin Anti-Xa Level 0.10 L POC ABG pH POC ABG pCO2 POC ABG pO2 Sodium 126 L Potassium 5.6 H Chloride 87.5 L Carbon Dioxide 21 L BUN 84 H Creatinine 6.0 H Glucose 144 H POC Glucose 146 H Calcium 7.9 L Phosphorus Magnesium Total Bilirubin AST Total Creatine Kinase CK-MB (CK-2) Total Protein Albumin Urine Creatinine Urine Chloride 03/29/17 03/29/17 03/29/17 08:20 09:13 10:00 WBC 27.6 H RBC 3.27 L Hgb 10.2 L Hct 31.8 L MCV 97 H MCH MCHC RDW 15.3 H Plt Count Lymph % (Auto) [place] % (Auto) Lymph # [place] # Seg Neutrophils % Seg Neuts % (Manual) Lymphocytes % (Manual) Monocytes % (Manual) Seg Neutrophils # Seg Neutrophils # Man Lymphocytes # (Manual) Monocytes # (Manual) Eosinophils # (Manual) PT INR APTT Heparin Anti-Xa Level 0.84 H POC ABG pH 7.204 L POC ABG pCO2 52.8 H POC ABG pO2 57 L Sodium Potassium Chloride Carbon Dioxide BUN Creatinine Glucose POC Glucose Calcium Phosphorus Magnesium Total Bilirubin AST Total Creatine Kinase CK-MB (CK-2) Total Protein Albumin Urine Creatinine Urine Chloride 03/29/17 03/29/17 03/29/17 10:24 12:27 16:44 WBC RBC Hgb Hct MCV MCH MCHC RDW Plt Count Lymph % (Auto) [place] % (Auto) Lymph # [place] # Seg Neutrophils % Seg Neuts % (Manual) Lymphocytes % (Manual) Monocytes % (Manual) Seg Neutrophils # Seg Neutrophils # Man Lymphocytes # (Manual) Monocytes # (Manual) Eosinophils # (Manual) PT INR APTT Heparin Anti-Xa Level < 0.10 L POC ABG pH 7.305 L POC ABG pCO2 POC ABG pO2 73 L Sodium Potassium Chloride Carbon Dioxide BUN Creatinine Glucose POC Glucose 152 H Calcium Phosphorus Magnesium Total Bilirubin AST Total Creatine Kinase CK-MB (CK-2) Total Protein Albumin Urine Creatinine Urine Chloride 03/29/17 03/29/17 03/29/17 17:48 18:56 22:10 WBC RBC Hgb Hct MCV MCH MCHC RDW Plt Count Lymph % (Auto) [place] % (Auto) Lymph # [place] # Seg Neutrophils % Seg Neuts % (Manual) Lymphocytes % (Manual) Monocytes % (Manual) Seg Neutrophils # Seg Neutrophils # Man Lymphocytes # (Manual) Monocytes # (Manual) Eosinophils # (Manual) PT INR APTT Heparin Anti-Xa Level POC ABG pH POC ABG pCO2 POC ABG pO2 Sodium 125 L Potassium 5.8 H Chloride 85.4 L Carbon Dioxide 16 L BUN 96 H Creatinine 6.9 H Glucose 135 H POC Glucose 130 H Calcium Phosphorus Magnesium Total Bilirubin AST Total Creatine Kinase CK-MB (CK-2) Total Protein Albumin Urine Creatinine 86.5 H Urine Chloride 15.2 L 03/30/17 03/30/17 03/30/17 00:11 01:00 05:42 WBC RBC Hgb Hct MCV MCH MCHC RDW Plt Count Lymph % (Auto) [place] % (Auto) Lymph # [place] # Seg Neutrophils % Seg Neuts % (Manual) Lymphocytes % (Manual) Monocytes % (Manual) Seg Neutrophils # Seg Neutrophils # Man Lymphocytes # (Manual) Monocytes # (Manual) Eosinophils # (Manual) PT INR APTT Heparin Anti-Xa Level 0.80 H POC ABG pH POC ABG pCO2 POC ABG pO2 Sodium Potassium Chloride Carbon Dioxide BUN Creatinine Glucose POC Glucose 146 H 162 H Calcium Phosphorus Magnesium Total Bilirubin AST Total Creatine Kinase CK-MB (CK-2) Total Protein Albumin Urine Creatinine Urine Chloride 03/30/17 03/30/17 03/30/17 07:32 07:38 08:20 WBC 27.7 H RBC 3.14 L Hgb 9.7 L Hct 30.1 L MCV 96 H MCH MCHC RDW 16.2 H Plt Count Lymph % (Auto) [place] % (Auto) Lymph # [place] # Seg Neutrophils % Seg Neuts % (Manual) 93.0 H Lymphocytes % (Manual) 1.0 L Monocytes % (Manual) Seg Neutrophils # Seg Neutrophils # Man 25.8 H Lymphocytes # (Manual) 0.3 L Monocytes # (Manual) 1.0 H Eosinophils # (Manual) PT INR APTT Heparin Anti-Xa Level 0.99 H POC ABG pH POC ABG pCO2 POC ABG pO2 Sodium 127 L Potassium 5.9 H Chloride 88.5 L Carbon Dioxide 16 L BUN 101 H Creatinine 7.5 H Glucose 147 H POC Glucose Calcium 8.0 L Phosphorus Magnesium Total Bilirubin AST Total Creatine Kinase CK-MB (CK-2) Total Protein Albumin Urine Creatinine Urine Chloride 03/30/17 03/30/17 03/30/17 12:19 16:07 16:58 WBC RBC Hgb Hct MCV MCH MCHC RDW Plt Count Lymph % (Auto) [place] % (Auto) Lymph # [place] # Seg Neutrophils % Seg Neuts % (Manual) Lymphocytes % (Manual) Monocytes % (Manual) Seg Neutrophils # Seg Neutrophils # Man Lymphocytes # (Manual) Monocytes # (Manual) Eosinophils # (Manual) PT INR APTT Heparin Anti-Xa Level 1.07 H POC ABG pH POC ABG pCO2 POC ABG pO2 62 L Sodium Potassium Chloride Carbon Dioxide BUN Creatinine Glucose POC Glucose 179 H Calcium Phosphorus Magnesium Total Bilirubin AST Total Creatine Kinase CK-MB (CK-2) Total Protein Albumin Urine Creatinine Urine Chloride 03/30/17 03/30/17 03/31/17 17:48 Unknown 00:25 WBC RBC Hgb Hct MCV MCH MCHC RDW Plt Count Lymph % (Auto) [place] % (Auto) Lymph # [place] # Seg Neutrophils % Seg Neuts % (Manual) Lymphocytes % (Manual) Monocytes % (Manual) Seg Neutrophils # Seg Neutrophils # Man Lymphocytes # (Manual) Monocytes # (Manual) Eosinophils # (Manual) PT INR APTT Heparin Anti-Xa Level POC ABG pH POC ABG pCO2 POC ABG pO2 Sodium 124 L Potassium 5.2 H Chloride 86.6 L Carbon Dioxide 16 L BUN 93 H Creatinine 6.3 H Glucose 153 H POC Glucose 162 H 139 H Calcium 7.4 L D Phosphorus Magnesium Total Bilirubin AST Total Creatine Kinase CK-MB (CK-2) Total Protein Albumin Urine Creatinine Urine Chloride 03/31/17 03/31/17 03/31/17 04:18 05:21 11:39 WBC RBC Hgb Hct MCV MCH MCHC RDW Plt Count Lymph % (Auto) [place] % (Auto) Lymph # [place] # Seg Neutrophils % Seg Neuts % (Manual) Lymphocytes % (Manual) Monocytes % (Manual) Seg Neutrophils # Seg Neutrophils # Man Lymphocytes # (Manual) Monocytes # (Manual) Eosinophils # (Manual) PT INR APTT Heparin Anti-Xa Level POC ABG pH 7.209 L POC ABG pCO2 55.7 H POC ABG pO2 106 H Sodium Potassium Chloride Carbon Dioxide BUN Creatinine Glucose POC Glucose 133 H 133 H Calcium Phosphorus Magnesium Total Bilirubin AST Total Creatine Kinase CK-MB (CK-2) Total Protein Albumin Urine Creatinine Urine Chloride 03/31/17 03/31/17 03/31/17 16:53 Unknown Unknown WBC 25.9 H RBC 3.04 L Hgb 9.6 L Hct 29.9 L MCV 98 H MCH MCHC RDW 16.1 H Plt Count Lymph % (Auto) [place] % (Auto) Lymph # [place] # Seg Neutrophils % Seg Neuts % (Manual) Lymphocytes % (Manual) Monocytes % (Manual) Seg Neutrophils # Seg Neutrophils # Man Lymphocytes # (Manual) Monocytes # (Manual) Eosinophils # (Manual) PT INR APTT Heparin Anti-Xa Level POC ABG pH POC ABG pCO2 POC ABG pO2 Sodium 133 L Potassium Chloride 91.6 L Carbon Dioxide 20 L BUN 67 H Creatinine 5.3 H Glucose 129 H POC Glucose 146 H Calcium 7.4 L Phosphorus Magnesium Total Bilirubin AST Total Creatine Kinase CK-MB (CK-2) Total Protein Albumin Urine Creatinine Urine Chloride 03/31/17 04/01/17 04/01/17 23:59 04:00 04:00 WBC 16.1 H RBC 3.02 L Hgb 9.6 L Hct 29.0 L MCV 96 H MCH MCHC RDW 16.0 H Plt Count Lymph % (Auto) [place] % (Auto) Lymph # [place] # Seg Neutrophils % Seg Neuts % (Manual) Lymphocytes % (Manual) Monocytes % (Manual) Seg Neutrophils # Seg Neutrophils # Man Lymphocytes # (Manual) Monocytes # (Manual) Eosinophils # (Manual) PT INR APTT Heparin Anti-Xa Level POC ABG pH POC ABG pCO2 POC ABG pO2 Sodium Potassium 3.1 L D Chloride 96.0 L Carbon Dioxide BUN 45 H Creatinine 4.1 H Glucose POC Glucose 121 H Calcium 7.1 L Phosphorus Magnesium Total Bilirubin AST Total Creatine Kinase CK-MB (CK-2) Total Protein Albumin Urine Creatinine Urine Chloride 04/01/17 04/02/17 04/02/17 05:20 00:15 04:00 WBC 13.5 H RBC 3.05 L Hgb 9.7 L Hct 29.2 L MCV 96 H MCH MCHC RDW 15.9 H Plt Count Lymph % (Auto) [place] % (Auto) Lymph # [place] # Seg Neutrophils % Seg Neuts % (Manual) Lymphocytes % (Manual) Monocytes % (Manual) Seg Neutrophils # Seg Neutrophils # Man Lymphocytes # (Manual) Monocytes # (Manual) Eosinophils # (Manual) PT INR APTT Heparin Anti-Xa Level POC ABG pH POC ABG pCO2 POC ABG pO2 132 H Sodium Potassium Chloride Carbon Dioxide BUN Creatinine Glucose POC Glucose 110 H Calcium Phosphorus Magnesium Total Bilirubin AST Total Creatine Kinase CK-MB (CK-2) Total Protein Albumin Urine Creatinine Urine Chloride 04/02/17 04/02/17 04/02/17 04:22 04:35 05:25 WBC RBC Hgb Hct MCV MCH MCHC RDW Plt Count Lymph % (Auto) [place] % (Auto) Lymph # [place] # Seg Neutrophils % Seg Neuts % (Manual) Lymphocytes % (Manual) Monocytes % (Manual) Seg Neutrophils # Seg Neutrophils # Man Lymphocytes # (Manual) Monocytes # (Manual) Eosinophils # (Manual) PT INR APTT Heparin Anti-Xa Level POC ABG pH POC ABG pCO2 POC ABG pO2 106 H Sodium Potassium 2.8 L* Chloride Carbon Dioxide BUN 30 H Creatinine 3.5 H Glucose 113 H POC Glucose 110 H Calcium 7.6 L Phosphorus Magnesium Total Bilirubin AST Total Creatine Kinase CK-MB (CK-2) Total Protein Albumin Urine Creatinine Urine Chloride 04/02/17 04/02/1704/02/17 06:49 11:56 18:02 WBC RBC Hgb Hct MCV MCH MCHC RDW Plt Count Lymph % (Auto) [place] % (Auto) Lymph # [place] # Seg Neutrophils % Seg Neuts % (Manual) Lymphocytes % (Manual) Monocytes % (Manual) Seg Neutrophils # Seg Neutrophils # Man Lymphocytes # (Manual) Monocytes # (Manual) Eosinophils # (Manual) PT INR APTT Heparin Anti-Xa Level 0.23 L POC ABG pH POC ABG pCO2 POC ABG pO2 Sodium Potassium Chloride Carbon Dioxide BUN Creatinine Glucose POC Glucose 118 H 128 H Calcium Phosphorus Magnesium Total Bilirubin AST Total Creatine Kinase CK-MB (CK-2) Total Protein Albumin Urine Creatinine Urine Chloride 04/03/17 04/03/17 04/03/17 00:15 04:41 05:54 WBC RBC Hgb Hct MCV MCH MCHC RDW Plt Count Lymph % (Auto) [place] % (Auto) Lymph # [place] # Seg Neutrophils % Seg Neuts % (Manual) Lymphocytes % (Manual) Monocytes % (Manual) Seg Neutrophils # Seg Neutrophils # Man Lymphocytes # (Manual) Monocytes # (Manual) Eosinophils # (Manual) PT INR APTT Heparin Anti-Xa Level POC ABG pH 7.451 H POC ABG pCO2 POC ABG pO2 146 H Sodium Potassium Chloride Carbon Dioxide BUN Creatinine Glucose POC Glucose 202 H 202 H Calcium Phosphorus Magnesium Total Bilirubin AST Total Creatine Kinase CK-MB (CK-2) Total Protein Albumin Urine Creatinine Urine Chloride 04/03/17 04/03/17 04/03/17 06:22 06:22 09:54 WBC RBC 3.03 L Hgb 9.7 L Hct 28.7 L MCV 95 H MCH MCHC RDW 15.9 H Plt Count Lymph % (Auto) [place] % (Auto) Lymph # [place] # Seg Neutrophils % Seg Neuts % (Manual) Lymphocytes % (Manual) Monocytes % (Manual) Seg Neutrophils # Seg Neutrophils # Man Lymphocytes # (Manual) Monocytes # (Manual) Eosinophils # (Manual) PT INR APTT Heparin Anti-Xa Level < 0.10 L POC ABG pH POC ABG pCO2 POC ABG pO2 Sodium Potassium Chloride Carbon Dioxide BUN 23 H Creatinine 3.1 H Glucose 175 H POC Glucose Calcium 8.0 L Phosphorus Magnesium Total Bilirubin AST Total Creatine Kinase CK-MB (CK-2) Total Protein Albumin Urine Creatinine Urine Chloride 04/03/17 04/03/17 04/03/17 11:40 11:45 16:25 WBC RBC Hgb Hct MCV MCH MCHC RDW Plt Count Lymph % (Auto) [place] % (Auto) Lymph # [place] # Seg Neutrophils % Seg Neuts % (Manual) Lymphocytes % (Manual) Monocytes % (Manual) Seg Neutrophils # Seg Neutrophils # Man Lymphocytes # (Manual) Monocytes # (Manual) Eosinophils # (Manual) PT INR APTT Heparin Anti-Xa Level 0.27 L POC ABG pH POC ABG pCO2 POC ABG pO2 Sodium Potassium Chloride Carbon Dioxide BUN Creatinine Glucose POC Glucose 205 H 191 H Calcium Phosphorus Magnesium Total Bilirubin AST Total Creatine Kinase CK-MB (CK-2) Total Protein Albumin Urine Creatinine Urine Chloride 04/03/17 04/04/17 04/04/17 21:42 04:00 04:00 WBC 11.7 H RBC 3.20 L Hgb 10.0 L Hct 31.2 L MCV 96 H MCH MCHC RDW 16.1 H Plt Count Lymph % (Auto) [place] % (Auto) Lymph # [place] # Seg Neutrophils % Seg Neuts % (Manual) 94.0 H Lymphocytes % (Manual) 0 L Monocytes % (Manual) Seg Neutrophils # Seg Neutrophils # Man 11.0 H Lymphocytes # (Manual) 0.0 L Monocytes # (Manual) Eosinophils # (Manual) PT INR APTT Heparin Anti-Xa Level POC ABG pH POC ABG pCO2 POC ABG pO2 Sodium 136 L Potassium Chloride 97.6 L Carbon Dioxide 21 L BUN 41 H Creatinine 4.0 H Glucose 184 H POC Glucose 147 H Calcium 8.1 L Phosphorus Magnesium Total Bilirubin AST Total Creatine Kinase CK-MB (CK-2) Total Protein Albumin Urine Creatinine Urine Chloride 04/04/17 04/04/17 04/04/17 05:12 06:17 12:32 WBC RBC Hgb Hct MCV MCH MCHC RDW Plt Count Lymph % (Auto) [place] % (Auto) Lymph # [place] # Seg Neutrophils % Seg Neuts % (Manual) Lymphocytes % (Manual) Monocytes % (Manual) Seg Neutrophils # Seg Neutrophils # Man Lymphocytes # (Manual) Monocytes # (Manual) Eosinophils # (Manual) PT INR APTT Heparin Anti-Xa Level POC ABG pH POC ABG pCO2 34.3 L POC ABG pO2 Sodium Potassium Chloride Carbon Dioxide BUN Creatinine Glucose POC Glucose 188 H 173 H Calcium Phosphorus Magnesium Total Bilirubin AST Total Creatine Kinase CK-MB (CK-2) Total Protein Albumin Urine Creatinine Urine Chloride 04/04/17 04/04/17 04/05/17 18:19 19:00 00:08 WBC RBC Hgb Hct MCV MCH MCHC RDW Plt Count Lymph % (Auto) [place] % (Auto) Lymph # [place] # Seg Neutrophils % Seg Neuts % (Manual) Lymphocytes % (Manual) Monocytes % (Manual) Seg Neutrophils # Seg Neutrophils # Man Lymphocytes # (Manual) Monocytes # (Manual) Eosinophils # (Manual) PT INR APTT Heparin Anti-Xa Level 0.98 H POC ABG pH POC ABG pCO2 POC ABG pO2 Sodium Potassium Chloride Carbon Dioxide BUN Creatinine Glucose POC Glucose 167 H 181 H Calcium Phosphorus Magnesium Total Bilirubin AST Total Creatine Kinase CK-MB (CK-2) Total Protein Albumin Urine Creatinine Urine Chloride 04/05/17 04/05/17 04/05/17 04:29 05:24 11:42 WBC RBC Hgb Hct MCV MCH MCHC RDW Plt Count Lymph % (Auto) [place] % (Auto) Lymph # [place] # Seg Neutrophils % Seg Neuts % (Manual) Lymphocytes % (Manual) Monocytes % (Manual) Seg Neutrophils # Seg Neutrophils # Man Lymphocytes # (Manual) Monocytes # (Manual) Eosinophils # (Manual) PT INR APTT Heparin Anti-Xa Level POC ABG pH 7.453 H POC ABG pCO2 33.7 L POC ABG pO2 Sodium Potassium Chloride Carbon Dioxide BUN Creatinine Glucose POC Glucose 180 H 166 H Calcium Phosphorus Magnesium Total Bilirubin AST Total Creatine Kinase CK-MB (CK-2) Total Protein Albumin Urine Creatinine Urine Chloride 04/05/17 04/06/17 04/06/17 17:43 00:16 05:08 WBC RBC Hgb Hct MCV MCH MCHC RDW Plt Count Lymph % (Auto) [place] % (Auto) Lymph # [place] # Seg Neutrophils % Seg Neuts % (Manual) Lymphocytes % (Manual) Monocytes % (Manual) Seg Neutrophils # Seg Neutrophils # Man Lymphocytes # (Manual) Monocytes # (Manual) Eosinophils # (Manual) PT INR APTT Heparin Anti-Xa Level POC ABG pH POC ABG pCO2 POC ABG pO2 Sodium Potassium Chloride Carbon Dioxide BUN Creatinine Glucose POC Glucose 165 H 172 H 166 H Calcium Phosphorus Magnesium Total Bilirubin AST Total Creatine Kinase CK-MB (CK-2) Total Protein Albumin Urine Creatinine Urine Chloride 04/06/17 04/06/17 04/06/17 06:30 06:30 12:15 WBC 12.8 H RBC 3.20 L Hgb 10.0 L Hct 30.1 L MCV MCH MCHC RDW 15.8 H Plt Count Lymph % (Auto) [place] % (Auto) Lymph # [place] # Seg Neutrophils % Seg Neuts % (Manual) 97.0 H Lymphocytes % (Manual) 0 L Monocytes % (Manual) Seg Neutrophils # Seg Neutrophils # Man 12.4 H Lymphocytes # (Manual) 0.0 L Monocytes # (Manual) Eosinophils # (Manual) PT INR APTT Heparin Anti-Xa Level POC ABG pH POC ABG pCO2 POC ABG pO2 Sodium 131 L Potassium Chloride 92.5 L Carbon Dioxide 20 L BUN 74 H Creatinine 4.7 H Glucose 185 H POC Glucose 166 H Calcium 8.0 L Phosphorus Magnesium Total Bilirubin AST Total Creatine Kinase CK-MB (CK-2) Total Protein Albumin Urine Creatinine Urine Chloride 04/06/17 04/06/17 04/07/17 17:52 23:16 05:45 WBC RBC Hgb Hct MCV MCH MCHC RDW Plt Count Lymph % (Auto) [place] % (Auto) Lymph # [place] # Seg Neutrophils % Seg Neuts % (Manual) Lymphocytes % (Manual) Monocytes % (Manual) Seg Neutrophils # Seg Neutrophils # Man Lymphocytes # (Manual) Monocytes # (Manual) Eosinophils # (Manual) PT INR APTT Heparin Anti-Xa Level POC ABG pH POC ABG pCO2 POC ABG pO2 Sodium Potassium Chloride Carbon Dioxide BUN Creatinine Glucose POC Glucose 174 H 173 H 154 H Calcium Phosphorus Magnesium Total Bilirubin AST Total Creatine Kinase CK-MB (CK-2) Total Protein Albumin Urine Creatinine Urine Chloride 04/07/17 04/07/17 04/07/17 06:00 06:00 09:21 WBC RBC 3.32 L Hgb 10.3 L Hct 31.3 L MCV MCH MCHC RDW 15.7 H Plt Count 125 L Lymph % (Auto) [place] % (Auto) Lymph # [place] # Seg Neutrophils % Seg Neuts % (Manual) 90.0 H Lymphocytes % (Manual) 5.0 L Monocytes % (Manual) Seg Neutrophils # Seg Neutrophils # Man 9.7 H Lymphocytes # (Manual) 0.5 L Monocytes # (Manual) Eosinophils # (Manual) PT INR APTT Heparin Anti-Xa Level POC ABG pH 7.323 L POC ABG pCO2 POC ABG pO2 Sodium 131 L Potassium Chloride 91.9 L Carbon Dioxide 20 L BUN 62 H Creatinine 3.8 H Glucose 178 H POC Glucose Calcium Phosphorus Magnesium Total Bilirubin AST Total Creatine Kinase CK-MB (CK-2) Total Protein Albumin Urine Creatinine Urine Chloride 04/07/17 04/07/17 04/07/17 12:23 17:20 23:43 WBC RBC Hgb Hct MCV MCH MCHC RDW Plt Count Lymph % (Auto) [place] % (Auto) Lymph # [place] # Seg Neutrophils % Seg Neuts % (Manual) Lymphocytes % (Manual) Monocytes % (Manual) Seg Neutrophils # Seg Neutrophils # Man Lymphocytes # (Manual) Monocytes # (Manual) Eosinophils # (Manual) PT INR APTT Heparin Anti-Xa Level POC ABG pH POC ABG pCO2 POC ABG pO2 Sodium Potassium Chloride Carbon Dioxide BUN Creatinine Glucose POC Glucose 160 H 169 H 176 H Calcium Phosphorus Magnesium Total Bilirubin AST Total Creatine Kinase CK-MB (CK-2) Total Protein Albumin Urine Creatinine Urine Chloride 04/08/17 04/08/17 04/08/17 06:08 08:18 08:18 WBC RBC 3.50 L Hgb 11.0 L Hct 33.7 L MCV 96 H MCH MCHC RDW 15.6 H Plt Count 130 L Lymph % (Auto) [place] % (Auto) Lymph # [place] # Seg Neutrophils % Seg Neuts % (Manual) 88.0 H Lymphocytes % (Manual) 6.0 L Monocytes % (Manual) Seg Neutrophils # Seg Neutrophils # Man 9.2 H Lymphocytes # (Manual) 0.6 L Monocytes # (Manual) Eosinophils # (Manual) PT INR APTT Heparin Anti-Xa Level POC ABG pH POC ABG pCO2 POC ABG pO2 Sodium 127 L Potassium 5.7 H D Chloride 88.5 L Carbon Dioxide 19 L BUN 92 H Creatinine 5.0 H Glucose 176 H POC Glucose 191 H Calcium 8.1 L Phosphorus Magnesium Total Bilirubin AST Total Creatine Kinase CK-MB (CK-2) Total Protein Albumin Urine Creatinine Urine Chloride 04/08/17 04/08/17 04/09/17 08:18 11:52 03:27 WBC RBC Hgb Hct MCV MCH MCHC RDW Plt Count Lymph % (Auto) [place] % (Auto) Lymph # [place] # Seg Neutrophils % Seg Neuts % (Manual) Lymphocytes % (Manual) Monocytes % (Manual) Seg Neutrophils # Seg Neutrophils # Man Lymphocytes # (Manual) Monocytes # (Manual) Eosinophils # (Manual) PT INR APTT Heparin Anti-Xa Level 1.02 H POC ABG pH POC ABG pCO2 POC ABG pO2 Sodium Potassium Chloride Carbon Dioxide BUN Creatinine Glucose POC Glucose 176 H 208 H Calcium Phosphorus Magnesium Total Bilirubin AST Total Creatine Kinase CK-MB (CK-2) Total Protein Albumin Urine Creatinine Urine Chloride 04/09/17 04/09/17 04/09/17 04:45 04:45 06:34 WBC RBC 3.21 L Hgb 10.1 L Hct 30.6 L MCV 96 H MCH MCHC RDW 15.3 H Plt Count 127 L Lymph % (Auto) 1.9 L [place] % (Auto) 8.4 H Lymph # 0.2 L [place] # Seg Neutrophils % 89.7 H Seg Neuts % (Manual) Lymphocytes % (Manual) Monocytes % (Manual) Seg Neutrophils # Seg Neutrophils # Man Lymphocytes # (Manual) Monocytes # (Manual) Eosinophils # (Manual) PT INR APTT Heparin Anti-Xa Level POC ABG pH POC ABG pCO2 POC ABG pO2 Sodium 130 L Potassium Chloride 89.8 L Carbon Dioxide BUN 60 H Creatinine 3.3 H Glucose 182 H POC Glucose 198 H Calcium 7.5 L Phosphorus Magnesium Total Bilirubin AST Total Creatine Kinase CK-MB (CK-2) Total Protein Albumin Urine Creatinine Urine Chloride 04/09/17 04/10/17 04/10/17 11:53 01:11 03:00 WBC RBC Hgb Hct MCV MCH MCHC RDW Plt Count Lymph % (Auto) [place] % (Auto) Lymph # [place] # Seg Neutrophils % Seg Neuts % (Manual) Lymphocytes % (Manual) Monocytes % (Manual) Seg Neutrophils # Seg Neutrophils # Man Lymphocytes # (Manual) Monocytes # (Manual) Eosinophils # (Manual) PT 16.2 H INR 1.24 H APTT Heparin Anti-Xa Level POC ABG pH POC ABG pCO2 POC ABG pO2 Sodium Potassium Chloride Carbon Dioxide BUN Creatinine Glucose POC Glucose 212 H 224 H Calcium Phosphorus Magnesium Total Bilirubin AST Total Creatine Kinase CK-MB (CK-2) Total Protein Albumin Urine Creatinine Urine Chloride 04/10/17 04/10/17 04/10/17 04:30 06:52 11:07 WBC RBC 3.29 L Hgb 10.2 L Hct 30.6 L MCV MCH MCHC RDW 15.7 H Plt Count 105 L Lymph % (Auto) 2.3 L [place] % (Auto) 8.1 H Lymph # 0.2 L [place] # 0.9 H Seg Neutrophils % 89.6 H Seg Neuts % (Manual) Lymphocytes % (Manual) Monocytes % (Manual) Seg Neutrophils # 9.8 H Seg Neutrophils # Man Lymphocytes # (Manual) Monocytes # (Manual) Eosinophils # (Manual) PT INR APTT Heparin Anti-Xa Level POC ABG pH POC ABG pCO2 POC ABG pO2 Sodium Potassium Chloride Carbon Dioxide BUN Creatinine Glucose POC Glucose 219 H 302 H Calcium Phosphorus Magnesium Total Bilirubin AST Total Creatine Kinase CK-MB (CK-2) Total Protein Albumin Urine Creatinine Urine Chloride 04/10/17 04/10/17 04/11/17 17:29 Unknown 01:13 WBC RBC Hgb Hct MCV MCH MCHC RDW Plt Count Lymph % (Auto) [place] % (Auto) Lymph # [place] # Seg Neutrophils % Seg Neuts % (Manual) Lymphocytes % (Manual) Monocytes % (Manual) Seg Neutrophils # Seg Neutrophils # Man Lymphocytes # (Manual) Monocytes # (Manual) Eosinophils # (Manual) PT INR APTT Heparin Anti-Xa Level POC ABG pH POC ABG pCO2 POC ABG pO2 Sodium 133 L Potassium Chloride 91.5 L Carbon Dioxide BUN 51 H Creatinine 3.0 H Glucose 217 H POC Glucose 184 H 249 H Calcium 7.5 L Phosphorus Magnesium Total Bilirubin AST Total Creatine Kinase CK-MB (CK-2) Total Protein Albumin Urine Creatinine Urine Chloride 04/11/17 04/11/17 04/11/17 05:46 05:46 05:57 WBC RBC 3.24 L Hgb 10.1 L Hct 30.2 L MCV MCH MCHC RDW 15.3 H Plt Count 85 L Lymph % (Auto) 2.5 L [place] % (Auto) 8.3 H Lymph # 0.2 L [place] # Seg Neutrophils % 89.1 H Seg Neuts % (Manual) Lymphocytes % (Manual) Monocytes % (Manual) Seg Neutrophils # 8.5 H Seg Neutrophils # Man Lymphocytes # (Manual) Monocytes # (Manual) Eosinophils # (Manual) PT INR APTT Heparin Anti-Xa Level POC ABG pH POC ABG pCO2 POC ABG pO2 Sodium 131 L Potassium Chloride 89.5 L Carbon Dioxide BUN 76 H Creatinine 3.8 H Glucose 159 H POC Glucose 168 H Calcium 7.5 L Phosphorus Magnesium Total Bilirubin AST Total Creatine Kinase CK-MB (CK-2) Total Protein Albumin Urine Creatinine Urine Chloride 04/11/17 10:52 WBC RBC Hgb Hct MCV MCH MCHC RDW Plt Count Lymph % (Auto) [place] % (Auto) Lymph # [place] # Seg Neutrophils % Seg Neuts % (Manual) Lymphocytes % (Manual) Monocytes % (Manual) Seg Neutrophils # Seg Neutrophils # Man Lymphocytes # (Manual) Monocytes # (Manual) Eosinophils # (Manual) PT 23.0 H INR 1.92 H APTT Heparin Anti-Xa Level POC ABG pH POC ABG pCO2 POC ABG pO2 Sodium Potassium Chloride Carbon Dioxide BUN Creatinine Glucose POC Glucose Calcium Phosphorus Magnesium Total Bilirubin AST Total Creatine Kinase CK-MB (CK-2) Total Protein Albumin Urine Creatinine Urine Chloride
[2017-04-11] MEDS ORDERED: COUMADIN PO SCH (17:00)
[2017-04-11] MEDS ORDERED: NACL 0.9 (PRIMING MACHINE ONLY DIALYSIS) MC ONE (17:59)
[2017-04-11] MEDS: HEPARIN IV PRN (21:08)
[2017-04-12] MEDS: NOVOLOG SUB-Q SCH ×4 (01:02→19:14)
[2017-04-12] MEDS: DUONEB *Not for PRN Use IH SCH ×4 (01:47→22:45)
[2017-04-12 05:48] LABS: Basophils % (Auto) 0.3 % (0.0-1.8); Eosinophils % (Auto) 0.2 % (0.0-4.3); Hematocrit 32.2 % (35.5-45.6); Hemoglobin 10.5 gm/dl (11.8-15.2); Mean Corpuscular HGB Conc 33 % (32-34); Mean Corpuscular Hemoglobin 31 pg (28-32); Mean Corpuscular Volume 94 fl (84-94); Red Blood Count 3.42 M/mm3 (3.65-5.03); Red Cell Distribution Width 15.8 % (13.2-15.2); White Blood Count 17.7 K/mm3 (4.5-11.0)
[2017-04-12 05:53] LABS: Platelet Count 98 K/mm3 (140-440)
[2017-04-12 05:55] LABS: INR 3.3 (0.87-1.13)
[2017-04-12 06:03] LABS: BUN/Creatinine Ratio 16.45; Calcium 7.8 mg/dL (8.4-10.2); Chloride 92.3 mmol/L (98-107); Potassium 3.8 mmol/L (3.6-5.0)
[2017-04-12] MEDS: CARDIZEM PO SCH ×3 (06:24→19:13)
--- NOTE | 2017-04-12 09:36 | Progress Note ---
Subjective Principal diagnosis: afib, EtOH abuse, morbid obesity, respiratory failure status post extubatio Interval history: Patient was seen today for follow-up and multiple renal-related issues Patient denies any complaints of chest pain or shortness of breath Events of 24 hours vitals labs intake output medications were reviewed Social history: Reviewed Family history: Reviewed Allergies: Reviewed Physical examination Vitals reviewed HEENT: Mild pallor no icterus Neck: Supple no JVD Chest: Clear to auscultation Heart: Regular rate and rhythm Abdomen soft nontender no renal bruit no CVA tenderness Extremity: Generalized edema 1+ Assessment and plan Acute kidney injury patient is currently dialysis-dependent on Tuesday and Tuesday schedule Patient has started making some urine which is encouraging Will increase his dialysis time to 4 hours for now Cardiomyopathy noted Altered mental status improving slowly Hemoglobin appears to be stable monitor metabolic control as well as hemoglobin He does appear to have some peripheral edema Patient was adequately counseled and educated regarding renal-related issues All renal-related questions were answered We'll continue to follow and make recommendation from renal standpoint Objective - Vital Signs Vital signs: Vital Signs - 12hr 04/11/17 04/11/17 04/11/17 21:50 21:53 22:04 Temperature Pulse Rate Pulse Rate [ 82 89 Anterior Bilateral Throughout] Pulse Rate [ Apical] Pulse Rate [ Left Radial] Respiratory Rate Respiratory 18 18 Rate [Anterior Bilateral Throughout] Blood Pressure [Left Arm] O2 Sat by Pulse 96 Oximetry 04/11/17 04/12/17 04/12/17 23:19 00:30 01:31 Temperature 98.3 F Pulse Rate 84 87 Pulse Rate [ Anterior Bilateral Throughout] Pulse Rate [ 82 Apical] Pulse Rate [ 82 Left Radial] Respiratory 23 20 Rate Respiratory Rate [Anterior Bilateral Throughout] Blood Pressure 114/75 [Left Arm] O2 Sat by Pulse 98 96 Oximetry 04/12/17 04/12/17 04/12/17 01:48 05:05 07:35 Temperature 98.4 F 98.5 F Pulse Rate Pulse Rate [ 70 Anterior Bilateral Throughout] Pulse Rate [ 98 H Apical] Pulse Rate [ 98 H 76 Left Radial] Respiratory 20 20 Rate Respiratory 21 Rate [Anterior Bilateral Throughout] Blood Pressure 118/80 116/71 [Left Arm] O2 Sat by Pulse 97 95 Oximetry 04/12/17 04/12/17 09:10 09:11 Temperature Pulse Rate Pulse Rate [ 88 87 Anterior Bilateral Throughout] Pulse Rate [ Apical] Pulse Rate [ Left Radial] Respiratory Rate Respiratory 18 18 Rate [Anterior Bilateral Throughout] Blood Pressure [Left Arm] O2 Sat by Pulse 95 Oximetry - Lab 04/12/17 05:04 04/12/17 05:04 Most recent lab results Calcium 7.8 mg/dL (8.4-10.2) L 04/12/17 05:04 Phosphorus 4.60 mg/dL (2.5-4.5) H 03/06/17 04:50 Magnesium 1.60 mg/dL (1.7-2.3) L 03/19/17 06:55 Urine Creatinine 86.5 mg/dL (0.1-20.0) H 03/29/17 22:10 Urine Sodium 28 mEq/L 03/29/17 22:10
[2017-04-12] MEDS: APRESOLINE PO SCH ×3 (13:27→22:49)
[2017-04-12] MEDS: FOLVITE PO SCH (13:28)
[2017-04-12] MEDS: LOPRESSOR PO SCH ×3 (13:28→22:50)
[2017-04-12] MEDS: PROTONIX PO SCH (13:29)
[2017-04-12] MEDS: ZESTRIL PO SCH (13:30)
[2017-04-12] MEDS: VITAMIN B-1 PO SCH (13:30)
--- NOTE | 2017-04-12 16:18 | Progress Note ---
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 (Manual) Lymphocytes % (Manual) Monocytes % (Manual) Seg Neutrophils # Seg Neutrophils # Man Lymphocytes # (Manual) Monocytes # (Manual) Eosinophils # (Manual) PT INR APTT Heparin Anti-Xa Level POC ABG pH 7.530 H POC ABG pCO2 POC ABG pO2 60 L Sodium Potassium Chloride Carbon Dioxide BUN Creatinine Glucose POC Glucose 123 H 176 H Calcium Phosphorus Magnesium Total Bilirubin AST Total Creatine Kinase CK-MB (CK-2) Total Protein Albumin Urine Creatinine Urine Chloride 03/18/17 03/18/17 03/18/17 14:10 15:24 17:23 WBC RBC Hgb 15.4 H Hct 46.4 H MCV MCH MCHC RDW Plt Count Lymph % (Auto) [place] % (Auto) Lymph # [place] # Seg Neutrophils % Seg Neuts % (Manual) Lymphocytes % (Manual) Monocytes % (Manual) Seg Neutrophils # Seg Neutrophils # Man Lymphocytes # (Manual) Monocytes # (Manual) Eosinophils # (Manual) PT INR APTT Heparin Anti-Xa Level POC ABG pH POC ABG pCO2 POC ABG pO2 Sodium Potassium Chloride 94.5 L Carbon Dioxide 33 H BUN 33 H Creatinine 1.6 H Glucose 241 H POC Glucose 244 H Calcium Phosphorus Magnesium Total Bilirubin AST Total Creatine Kinase CK-MB (CK-2) Total Protein Albumin 3.0 L Urine Creatinine Urine Chloride 03/18/17 03/18/17 03/19/17 17:23 21:33 03:54 WBC 25.4 H RBC Hgb Hct MCV 98 H MCH MCHC RDW Plt Count Lymph % (Auto) [place] % (Auto) Lymph # [place] # Seg Neutrophils % Seg Neuts % (Manual) 83.0 H Lymphocytes % (Manual) 4.5 L Monocytes % (Manual) 8.0 H Seg Neutrophils # Seg Neutrophils # Man 21.1 H Lymphocytes # (Manual) 1.1 L Monocytes # (Manual) 2.0 H Eosinophils # (Manual) PT 17.1 H INR 1.40 H APTT Heparin Anti-Xa Level POC ABG pH POC ABG pCO2 POC ABG pO2 Sodium Potassium Chloride Carbon Dioxide BUN Creatinine Glucose POC Glucose 164 H Calcium Phosphorus Magnesium Total Bilirubin AST Total Creatine Kinase CK-MB (CK-2) Total Protein Albumin Urine Creatinine Urine Chloride 03/19/17 03/19/17 03/19/17 03:54 06:55 06:55 WBC RBC Hgb Hct MCV MCH MCHC RDW Plt Count Lymph % (Auto) [place] % (Auto) Lymph # [place] # Seg Neutrophils % Seg Neuts % (Manual) Lymphocytes % (Manual) Monocytes % (Manual) Seg Neutrophils # Seg Neutrophils # Man Lymphocytes # (Manual) Monocytes # (Manual) Eosinophils # (Manual) PT INR APTT Heparin Anti-Xa Level 0.29 L POC ABG pH POC ABG pCO2 POC ABG pO2 Sodium 146 H Potassium 3.4 L Chloride 97.8 L Carbon Dioxide 33 H BUN 30 H Creatinine Glucose 134 H POC Glucose Calcium Phosphorus Magnesium 1.60 L Total Bilirubin AST Total Creatine Kinase CK-MB (CK-2) Total Protein Albumin Urine Creatinine Urine Chloride 03/19/17 03/19/17 03/19/17 08:01 12:56 14:54 WBC RBC Hgb Hct MCV MCH MCHC RDW Plt Count Lymph % (Auto) [place] % (Auto) Lymph # [place] # Seg Neutrophils % Seg Neuts % (Manual) Lymphocytes % (Manual) Monocytes % (Manual) Seg Neutrophils # Seg Neutrophils # Man Lymphocytes # (Manual) Monocytes # (Manual) Eosinophils # (Manual) PT INR APTT Heparin Anti-Xa Level POC ABG pH POC ABG pCO2 57.8 H POC ABG pO2 71 L Sodium Potassium Chloride Carbon Dioxide BUN Creatinine Glucose POC Glucose 139 H 167 H Calcium Phosphorus Magnesium Total Bilirubin AST Total Creatine Kinase CK-MB (CK-2) Total Protein Albumin Urine Creatinine Urine Chloride 03/19/17 03/19/17 03/20/17 15:53 21:04 03:36 WBC RBC Hgb 15.3 H Hct 48.1 H MCV MCH MCHC RDW Plt Count Lymph % (Auto) [place] % (Auto) Lymph # [place] # Seg Neutrophils % Seg Neuts % (Manual) Lymphocytes % (Manual) Monocytes % (Manual) Seg Neutrophils # Seg Neutrophils # Man Lymphocytes # (Manual) Monocytes # (Manual) Eosinophils # (Manual) PT INR APTT Heparin Anti-Xa Level POC ABG pH POC ABG pCO2 POC ABG pO2 Sodium Potassium Chloride Carbon Dioxide BUN Creatinine Glucose POC Glucose 172 H 159 H Calcium Phosphorus Magnesium Total Bilirubin AST Total Creatine Kinase CK-MB (CK-2) Total Protein Albumin Urine Creatinine Urine Chloride 03/20/17 03/20/17 03/20/17 07:45 12:02 14:07 WBC RBC Hgb Hct MCV MCH MCHC RDW Plt Count Lymph % (Auto) [place] % (Auto) Lymph # [place] # Seg Neutrophils % Seg Neuts % (Manual) Lymphocytes % (Manual) Monocytes % (Manual) Seg Neutrophils # Seg Neutrophils # Man Lymphocytes # (Manual) Monocytes # (Manual) Eosinophils # (Manual) PT INR APTT Heparin Anti-Xa Level POC ABG pH 7.312 L POC ABG pCO2 68.3 H POC ABG pO2 47 L Sodium Potassium Chloride Carbon Dioxide BUN Creatinine Glucose POC Glucose 160 H 142 H Calcium Phosphorus Magnesium Total Bilirubin AST Total Creatine Kinase CK-MB (CK-2) Total Protein Albumin Urine Creatinine Urine Chloride 03/20/17 03/20/17 03/20/17 15:57 15:59 19:50 WBC RBC Hgb Hct MCV MCH MCHC RDW Plt Count Lymph % (Auto) [place] % (Auto) Lymph # [place] # Seg Neutrophils % Seg Neuts % (Manual) Lymphocytes % (Manual) Monocytes % (Manual) Seg Neutrophils # Seg Neutrophils # Man Lymphocytes # (Manual) Monocytes # (Manual) Eosinophils # (Manual) PT INR APTT Heparin Anti-Xa Level POC ABG pH 7.214 L POC ABG pCO2 82.8 H 58.7 H POC ABG pO2 69 L Sodium Potassium Chloride Carbon Dioxide BUN Creatinine Glucose POC Glucose 149 H Calcium Phosphorus Magnesium Total Bilirubin AST Total Creatine Kinase CK-MB (CK-2) Total Protein Albumin Urine Creatinine Urine Chloride 03/20/17 03/20/17 03/21/17 21:19 23:34 04:18 WBC RBC Hgb Hct MCV MCH MCHC RDW Plt Count Lymph % (Auto) [place] % (Auto) Lymph # [place] # Seg Neutrophils % Seg Neuts % (Manual) Lymphocytes % (Manual) Monocytes % (Manual) Seg Neutrophils # Seg Neutrophils # Man Lymphocytes # (Manual) Monocytes # (Manual) Eosinophils # (Manual) PT INR APTT Heparin Anti-Xa Level 0.20 L POC ABG pH POC ABG pCO2 48.6 H POC ABG pO2 79 L Sodium Potassium Chloride Carbon Dioxide BUN Creatinine Glucose POC Glucose 206 H Calcium Phosphorus Magnesium Total Bilirubin AST Total Creatine Kinase CK-MB (CK-2) Total Protein Albumin Urine Creatinine Urine Chloride 03/21/17 03/21/17 03/21/17 04:21 04:21 05:23 WBC RBC Hgb Hct MCV MCH MCHC RDW Plt Count Lymph % (Auto) [place] % (Auto) Lymph # [place] # Seg Neutrophils % Seg Neuts % (Manual) Lymphocytes % (Manual) Monocytes % (Manual) Seg Neutrophils # Seg Neutrophils # Man Lymphocytes # (Manual) Monocytes # (Manual) Eosinophils # (Manual) PT INR APTT Heparin Anti-Xa Level 0.24 L POC ABG pH POC ABG pCO2 POC ABG pO2 Sodium 147 H Potassium Chloride Carbon Dioxide BUN 42 H Creatinine 2.6 H D Glucose 209 H POC Glucose 181 H Calcium 7.9 L Phosphorus Magnesium Total Bilirubin AST Total Creatine Kinase CK-MB (CK-2) Total Protein Albumin Urine Creatinine Urine Chloride 03/21/17 03/21/17 03/21/17 13:16 13:16 14:43 WBC 27.8 H RBC Hgb Hct MCV 101 H D MCH MCHC RDW Plt Count Lymph % (Auto) [place] % (Auto) Lymph # [place] # Seg Neutrophils % Seg Neuts % (Manual) 76.0 H Lymphocytes % (Manual) 7.0 L Monocytes % (Manual) Seg Neutrophils # Seg Neutrophils # Man 21.1 H Lymphocytes # (Manual) Monocytes # (Manual) 1.1 H Eosinophils # (Manual) PT INR APTT Heparin Anti-Xa Level 0.25 L POC ABG pH 7.474 H POC ABG pCO2 POC ABG pO2 59 L Sodium Potassium Chloride Carbon Dioxide BUN Creatinine Glucose POC Glucose Calcium Phosphorus Magnesium Total Bilirubin AST Total Creatine Kinase CK-MB (CK-2) Total Protein Albumin Urine Creatinine Urine Chloride 03/21/17 03/21/17 03/21/17 17:00 18:20 23:40 WBC RBC Hgb Hct MCV MCH MCHC RDW Plt Count Lymph % (Auto) [place] % (Auto) Lymph # [place] # Seg Neutrophils % Seg Neuts % (Manual) Lymphocytes % (Manual) Monocytes % (Manual) Seg Neutrophils # Seg Neutrophils # Man Lymphocytes # (Manual) Monocytes # (Manual) Eosinophils # (Manual) PT INR APTT Heparin Anti-Xa Level POC ABG pH POC ABG pCO2 POC ABG pO2 Sodium Potassium Chloride Carbon Dioxide BUN 48 H Creatinine 3.2 H Glucose 135 H POC Glucose 152 H 136 H Calcium 6.8 L Phosphorus Magnesium Total Bilirubin AST Total Creatine Kinase CK-MB (CK-2) Total Protein 5.3 L D Albumin 1.7 L Urine Creatinine Urine Chloride 03/22/17 03/22/17 03/22/17 04:30 04:30 04:30 WBC 29.3 H RBC Hgb Hct MCV 100 H MCH MCHC 31 L RDW 15.3 H Plt Count Lymph % (Auto) [place] % (Auto) Lymph # [place] # Seg Neutrophils % Seg Neuts % (Manual) Lymphocytes % (Manual) Monocytes % (Manual) Seg Neutrophils # Seg Neutrophils # Man Lymphocytes # (Manual) Monocytes # (Manual) Eosinophils # (Manual) PT INR APTT Heparin Anti-Xa Level 0.29 L POC ABG pH POC ABG pCO2 POC ABG pO2 Sodium Potassium Chloride Carbon Dioxide BUN 60 H Creatinine 4.3 H Glucose 118 H POC Glucose Calcium 8.2 L D Phosphorus Magnesium Total Bilirubin AST Total Creatine Kinase CK-MB (CK-2) Total Protein Albumin 1.8 L Urine Creatinine Urine Chloride 03/22/17 03/22/17 03/22/17 05:08 07:00 07:00 WBC 24.8 H RBC Hgb Hct MCV 100 H MCH MCHC RDW Plt Count Lymph % (Auto) [place] % (Auto) Lymph # [place] # Seg Neutrophils % Seg Neuts % (Manual) 94.0 H Lymphocytes % (Manual) 0 L Monocytes % (Manual) Seg Neutrophils # Seg Neutrophils # Man 23.3 H Lymphocytes # (Manual) 0.0 L Monocytes # (Manual) Eosinophils # (Manual) 0.7 H PT INR APTT Heparin Anti-Xa Level POC ABG pH POC ABG pCO2 POC ABG pO2 Sodium 147 H Potassium Chloride 109.2 H Carbon Dioxide BUN 58 H Creatinine 4.1 H Glucose 117 H POC Glucose 124 H Calcium 7.4 L Phosphorus Magnesium Total Bilirubin AST Total Creatine Kinase CK-MB (CK-2) Total Protein Albumin Urine Creatinine Urine Chloride 03/22/17 03/22/17 03/22/17 08:40 11:37 14:30 WBC RBC Hgb Hct MCV MCH MCHC RDW Plt Count Lymph % (Auto) [place] % (Auto) Lymph # [place] # Seg Neutrophils % Seg Neuts % (Manual) Lymphocytes % (Manual) Monocytes % (Manual) Seg Neutrophils # Seg Neutrophils # Man Lymphocytes # (Manual) Monocytes # (Manual) Eosinophils # (Manual) PT 16.2 H INR 1.31 H APTT 68.9 H* Heparin Anti-Xa Level < 0.10 L POC ABG pH POC ABG pCO2 POC ABG pO2 Sodium Potassium Chloride Carbon Dioxide BUN Creatinine Glucose POC Glucose 159 H Calcium Phosphorus Magnesium Total Bilirubin AST Total Creatine Kinase CK-MB (CK-2) Total Protein Albumin Urine Creatinine Urine Chloride 03/22/17 03/22/17 03/22/17 17:53 21:44 23:54 WBC RBC Hgb 11.6 L Hct 33.1 L MCV MCH MCHC RDW Plt Count Lymph % (Auto) [place] % (Auto) Lymph # [place] # Seg Neutrophils % Seg Neuts % (Manual) Lymphocytes % (Manual) Monocytes % (Manual) Seg Neutrophils # Seg Neutrophils # Man Lymphocytes # (Manual) Monocytes # (Manual) Eosinophils # (Manual) PT INR APTT Heparin Anti-Xa Level POC ABG pH POC ABG pCO2 POC ABG pO2 Sodium Potassium Chloride Carbon Dioxide BUN Creatinine Glucose POC Glucose 142 H 131 H Calcium Phosphorus Magnesium Total Bilirubin AST Total Creatine Kinase CK-MB (CK-2) Total Protein Albumin Urine Creatinine Urine Chloride 03/23/17 03/23/17 03/23/17 04:08 05:29 06:34 WBC RBC Hgb Hct MCV MCH MCHC RDW Plt Count Lymph % (Auto) [place] % (Auto) Lymph # [place] # Seg Neutrophils % Seg Neuts % (Manual) Lymphocytes % (Manual) Monocytes % (Manual) Seg Neutrophils # Seg Neutrophils # Man Lymphocytes # (Manual) Monocytes # (Manual) Eosinophils # (Manual) PT INR APTT Heparin Anti-Xa Level POC ABG pH POC ABG pCO2 POC ABG pO2 75 L Sodium Potassium Chloride Carbon Dioxide 21 L BUN 85 H Creatinine 6.0 H Glucose 134 H POC Glucose 134 H Calcium 8.1 L Phosphorus Magnesium Total Bilirubin AST Total Creatine Kinase CK-MB (CK-2) Total Protein Albumin Urine Creatinine Urine Chloride 03/23/17 03/23/17 03/23/17 12:09 17:20 17:52 WBC RBC Hgb Hct MCV MCH MCHC RDW Plt Count Lymph % (Auto) [place] % (Auto) Lymph # [place] # Seg Neutrophils % Seg Neuts % (Manual) Lymphocytes % (Manual) Monocytes % (Manual) Seg Neutrophils # Seg Neutrophils # Man Lymphocytes # (Manual) Monocytes # (Manual) Eosinophils # (Manual) PT INR APTT Heparin Anti-Xa Level 1.39 H POC ABG pH POC ABG pCO2 POC ABG pO2 Sodium Potassium Chloride Carbon Dioxide BUN Creatinine Glucose POC Glucose 133 H 151 H Calcium Phosphorus Magnesium Total Bilirubin AST Total Creatine Kinase CK-MB (CK-2) Total Protein Albumin Urine Creatinine Urine Chloride 03/23/17 03/24/17 03/24/17 23:59 03:15 03:15 WBC 23.9 H RBC 3.58 L Hgb 11.6 L Hct 34.6 L MCV 97 H D MCH MCHC RDW Plt Count 122 L Lymph % (Auto) [place] % (Auto) Lymph # [place] # Seg Neutrophils % Seg Neuts % (Manual) Lymphocytes % (Manual) Monocytes % (Manual) Seg Neutrophils # Seg Neutrophils # Man Lymphocytes # (Manual) Monocytes # (Manual) Eosinophils # (Manual) PT INR APTT Heparin Anti-Xa Level POC ABG pH POC ABG pCO2 POC ABG pO2 Sodium 135 L Potassium Chloride 95.0 L Carbon Dioxide BUN 71 H Creatinine 5.2 H Glucose 123 H POC Glucose 124 H Calcium 8.0 L Phosphorus Magnesium Total Bilirubin AST Total Creatine Kinase CK-MB (CK-2) Total Protein Albumin Urine Creatinine Urine Chloride 03/24/17 03/24/17 03/24/17 03:15 04:53 11:58 WBC RBC Hgb Hct MCV MCH MCHC RDW Plt Count Lymph % (Auto) [place] % (Auto) Lymph # [place] # Seg Neutrophils % Seg Neuts % (Manual) Lymphocytes % (Manual) Monocytes % (Manual) Seg Neutrophils # Seg Neutrophils # Man Lymphocytes # (Manual) Monocytes # (Manual) Eosinophils # (Manual) PT INR APTT Heparin Anti-Xa Level 0.20 L POC ABG pH POC ABG pCO2 POC ABG pO2 72 L Sodium Potassium Chloride Carbon Dioxide BUN Creatinine Glucose POC Glucose 121 H Calcium Phosphorus Magnesium Total Bilirubin AST Total Creatine Kinase CK-MB (CK-2) Total Protein Albumin Urine Creatinine Urine Chloride 03/24/17 03/25/17 03/25/17 18:16 00:24 05:30 WBC RBC Hgb Hct MCV MCH MCHC RDW Plt Count Lymph % (Auto) [place] % (Auto) Lymph # [place] # Seg Neutrophils % Seg Neuts % (Manual) Lymphocytes % (Manual) Monocytes % (Manual) Seg Neutrophils # Seg Neutrophils # Man Lymphocytes # (Manual) Monocytes # (Manual) Eosinophils # (Manual) PT INR APTT Heparin Anti-Xa Level POC ABG pH POC ABG pCO2 34.2 L POC ABG pO2 Sodium Potassium Chloride Carbon Dioxide BUN Creatinine Glucose POC Glucose 117 H 107 H Calcium Phosphorus Magnesium Total Bilirubin AST Total Creatine Kinase CK-MB (CK-2) Total Protein Albumin Urine Creatinine Urine Chloride 03/25/17 03/25/17 03/25/17 05:35 11:45 16:48 WBC RBC Hgb Hct MCV MCH MCHC RDW Plt Count Lymph % (Auto) [place] % (Auto) Lymph # [place] # Seg Neutrophils % Seg Neuts % (Manual) Lymphocytes % (Manual) Monocytes % (Manual) Seg Neutrophils # Seg Neutrophils # Man Lymphocytes # (Manual) Monocytes # (Manual) Eosinophils # (Manual) PT INR APTT Heparin Anti-Xa Level POC ABG pH POC ABG pCO2 POC ABG pO2 Sodium 132 L Potassium Chloride 92.0 L Carbon Dioxide 20 L BUN 102 H Creatinine 7.2 H Glucose 101 H POC Glucose 127 H 114 H Calcium 8.3 L Phosphorus Magnesium Total Bilirubin AST Total Creatine Kinase CK-MB (CK-2) Total Protein Albumin Urine Creatinine Urine Chloride 03/26/17 03/26/17 03/26/17 00:17 04:15 04:15 WBC 21.1 H RBC 3.52 L Hgb 11.0 L Hct 33.2 L MCV 95 H MCH MCHC RDW Plt Count 121 L Lymph % (Auto) [place] % (Auto) Lymph # [place] # Seg Neutrophils % Seg Neuts % (Manual) Lymphocytes % (Manual) Monocytes % (Manual) Seg Neutrophils # Seg Neutrophils # Man Lymphocytes # (Manual) Monocytes # (Manual) Eosinophils # (Manual) PT INR APTT Heparin Anti-Xa Level POC ABG pH POC ABG pCO2 POC ABG pO2 Sodium 133 L Potassium Chloride 92.9 L Carbon Dioxide 21 L BUN 77 H Creatinine 5.4 H Glucose 115 H POC Glucose 114 H Calcium 8.1 L Phosphorus Magnesium Total Bilirubin AST Total Creatine Kinase CK-MB (CK-2) Total Protein Albumin Urine Creatinine Urine Chloride 03/26/17 03/26/17 03/26/17 04:49 11:36 23:29 WBC RBC Hgb Hct MCV MCH MCHC RDW Plt Count Lymph % (Auto) [place] % (Auto) Lymph # [place] # Seg Neutrophils % Seg Neuts % (Manual) Lymphocytes % (Manual) Monocytes % (Manual) Seg Neutrophils # Seg Neutrophils # Man Lymphocytes # (Manual) Monocytes # (Manual) Eosinophils # (Manual) PT INR APTT Heparin Anti-Xa Level POC ABG pH POC ABG pCO2 POC ABG pO2 Sodium Potassium Chloride Carbon Dioxide BUN Creatinine Glucose POC Glucose 127 H 123 H 125 H Calcium Phosphorus Magnesium Total Bilirubin AST Total Creatine Kinase CK-MB (CK-2) Total Protein Albumin Urine Creatinine Urine Chloride 03/27/17 03/27/17 03/27/17 04:00 04:46 05:06 WBC RBC Hgb Hct MCV MCH MCHC RDW Plt Count Lymph % (Auto) [place] % (Auto) Lymph # [place] # Seg Neutrophils % Seg Neuts % (Manual) Lymphocytes % (Manual) Monocytes % (Manual) Seg Neutrophils # Seg Neutrophils # Man Lymphocytes # (Manual) Monocytes # (Manual) Eosinophils # (Manual) PT INR APTT Heparin Anti-Xa Level POC ABG pH POC ABG pCO2 31.4 L POC ABG pO2 Sodium 132 L Potassium Chloride 90.5 L Carbon Dioxide 19 L BUN 95 H Creatinine 6.7 H Glucose 110 H POC Glucose 116 H Calcium Phosphorus Magnesium Total Bilirubin AST Total Creatine Kinase CK-MB (CK-2) Total Protein Albumin Urine Creatinine Urine Chloride 03/27/17 03/27/17 03/27/17 08:11 08:11 11:34 WBC 24.7 H RBC Hgb 11.5 L Hct 35.0 L MCV 95 H MCH MCHC RDW Plt Count Lymph % (Auto) [place] % (Auto) Lymph # [place] # Seg Neutrophils % Seg Neuts % (Manual) Lymphocytes % (Manual) Monocytes % (Manual) Seg Neutrophils # Seg Neutrophils # Man Lymphocytes # (Manual) Monocytes # (Manual) Eosinophils # (Manual) PT INR APTT Heparin Anti-Xa Level < 0.10 L POC ABG pH POC ABG pCO2 POC ABG pO2 Sodium Potassium Chloride Carbon Dioxide BUN Creatinine Glucose POC Glucose 118 H Calcium Phosphorus Magnesium Total Bilirubin AST Total Creatine Kinase CK-MB (CK-2) Total Protein Albumin Urine Creatinine Urine Chloride 03/27/17 03/27/17 03/28/17 16:44 23:59 05:07 WBC RBC Hgb Hct MCV MCH MCHC RDW Plt Count Lymph % (Auto) [place] % (Auto) Lymph # [place] # Seg Neutrophils % Seg Neuts % (Manual) Lymphocytes % (Manual) Monocytes % (Manual) Seg Neutrophils # Seg Neutrophils # Man Lymphocytes # (Manual) Monocytes # (Manual) Eosinophils # (Manual) PT INR APTT Heparin Anti-Xa Level POC ABG pH POC ABG pCO2 POC ABG pO2 Sodium Potassium Chloride Carbon Dioxide BUN Creatinine Glucose POC Glucose 110 H 109 H 110 H Calcium Phosphorus Magnesium Total Bilirubin AST Total Creatine Kinase CK-MB (CK-2) Total Protein Albumin Urine Creatinine Urine Chloride 03/28/17 03/28/17 03/28/17 07:00 11:24 11:50 WBC 26.6 H RBC 3.42 L Hgb 10.8 L Hct 33.2 L MCV 97 H MCH MCHC RDW 15.4 H Plt Count Lymph % (Auto) [place] % (Auto) Lymph # [place] # Seg Neutrophils % Seg Neuts % (Manual) Lymphocytes % (Manual) Monocytes % (Manual) Seg Neutrophils # Seg Neutrophils # Man Lymphocytes # (Manual) Monocytes # (Manual) Eosinophils # (Manual) PT INR APTT Heparin Anti-Xa Level POC ABG pH POC ABG pCO2 POC ABG pO2 Sodium 131 L Potassium 5.3 H Chloride 86.6 L Carbon Dioxide 17 L BUN 112 H Creatinine 7.9 H Glucose 120 H POC Glucose 141 H Calcium Phosphorus Magnesium Total Bilirubin AST Total Creatine Kinase CK-MB (CK-2) Total Protein Albumin Urine Creatinine Urine Chloride 03/28/17 03/28/17 03/28/17 17:25 18:04 23:07 WBC RBC Hgb Hct MCV MCH MCHC RDW Plt Count Lymph % (Auto) [place] % (Auto) Lymph # [place] # Seg Neutrophils % Seg Neuts % (Manual) Lymphocytes % (Manual) Monocytes % (Manual) Seg Neutrophils # Seg Neutrophils # Man Lymphocytes # (Manual) Monocytes # (Manual) Eosinophils # (Manual) PT INR APTT Heparin Anti-Xa Level 0.23 L POC ABG pH POC ABG pCO2 POC ABG pO2 Sodium Potassium Chloride Carbon Dioxide BUN Creatinine Glucose POC Glucose 128 H 115 H Calcium Phosphorus Magnesium Total Bilirubin AST Total Creatine Kinase CK-MB (CK-2) Total Protein Albumin Urine Creatinine Urine Chloride 03/29/17 03/29/17 03/29/17 03:23 05:16 08:20 WBC RBC Hgb Hct MCV MCH MCHC RDW Plt Count Lymph % (Auto) [place] % (Auto) Lymph # [place] # Seg Neutrophils % Seg Neuts % (Manual) Lymphocytes % (Manual) Monocytes % (Manual) Seg Neutrophils # Seg Neutrophils # Man Lymphocytes # (Manual) Monocytes # (Manual) Eosinophils # (Manual) PT INR APTT Heparin Anti-Xa Level 0.10 L POC ABG pH POC ABG pCO2 POC ABG pO2 Sodium 126 L Potassium 5.6 H Chloride 87.5 L Carbon Dioxide 21 L BUN 84 H Creatinine 6.0 H Glucose 144 H POC Glucose 146 H Calcium 7.9 L Phosphorus Magnesium Total Bilirubin AST Total Creatine Kinase CK-MB (CK-2) Total Protein Albumin Urine Creatinine Urine Chloride 03/29/17 03/29/17 03/29/17 08:20 09:13 10:00 WBC 27.6 H RBC 3.27 L Hgb 10.2 L Hct 31.8 L MCV 97 H MCH MCHC RDW 15.3 H Plt Count Lymph % (Auto) [place] % (Auto) Lymph # [place] # Seg Neutrophils % Seg Neuts % (Manual) Lymphocytes % (Manual) Monocytes % (Manual) Seg Neutrophils # Seg Neutrophils # Man Lymphocytes # (Manual) Monocytes # (Manual) Eosinophils # (Manual) PT INR APTT Heparin Anti-Xa Level 0.84 H POC ABG pH 7.204 L POC ABG pCO2 52.8 H POC ABG pO2 57 L Sodium Potassium Chloride Carbon Dioxide BUN Creatinine Glucose POC Glucose Calcium Phosphorus Magnesium Total Bilirubin AST Total Creatine Kinase CK-MB (CK-2) Total Protein Albumin Urine Creatinine Urine Chloride 03/29/17 03/29/17 03/29/17 10:24 12:27 16:44 WBC RBC Hgb Hct MCV MCH MCHC RDW Plt Count Lymph % (Auto) [place] % (Auto) Lymph # [place] # Seg Neutrophils % Seg Neuts % (Manual) Lymphocytes % (Manual) Monocytes % (Manual) Seg Neutrophils # Seg Neutrophils # Man Lymphocytes # (Manual) Monocytes # (Manual) Eosinophils # (Manual) PT INR APTT Heparin Anti-Xa Level < 0.10 L POC ABG pH 7.305 L POC ABG pCO2 POC ABG pO2 73 L Sodium Potassium Chloride Carbon Dioxide BUN Creatinine Glucose POC Glucose 152 H Calcium Phosphorus Magnesium Total Bilirubin AST Total Creatine Kinase CK-MB (CK-2) Total Protein Albumin Urine Creatinine Urine Chloride 03/29/17 03/29/17 03/29/17 17:48 18:56 22:10 WBC RBC Hgb Hct MCV MCH MCHC RDW Plt Count Lymph % (Auto) [place] % (Auto) Lymph # [place] # Seg Neutrophils % Seg Neuts % (Manual) Lymphocytes % (Manual) Monocytes % (Manual) Seg Neutrophils # Seg Neutrophils # Man Lymphocytes # (Manual) Monocytes # (Manual) Eosinophils # (Manual) PT INR APTT Heparin Anti-Xa Level POC ABG pH POC ABG pCO2 POC ABG pO2 Sodium 125 L Potassium 5.8 H Chloride 85.4 L Carbon Dioxide 16 L BUN 96 H Creatinine 6.9 H Glucose 135 H POC Glucose 130 H Calcium Phosphorus Magnesium Total Bilirubin AST Total Creatine Kinase CK-MB (CK-2) Total Protein Albumin Urine Creatinine 86.5 H Urine Chloride 15.2 L 03/30/17 03/30/17 03/30/17 00:11 01:00 05:42 WBC RBC Hgb Hct MCV MCH MCHC RDW Plt Count Lymph % (Auto) [place] % (Auto) Lymph # [place] # Seg Neutrophils % Seg Neuts % (Manual) Lymphocytes % (Manual) Monocytes % (Manual) Seg Neutrophils # Seg Neutrophils # Man Lymphocytes # (Manual) Monocytes # (Manual) Eosinophils # (Manual) PT INR APTT Heparin Anti-Xa Level 0.80 H POC ABG pH POC ABG pCO2 POC ABG pO2 Sodium Potassium Chloride Carbon Dioxide BUN Creatinine Glucose POC Glucose 146 H 162 H Calcium Phosphorus Magnesium Total Bilirubin AST Total Creatine Kinase CK-MB (CK-2) Total Protein Albumin Urine Creatinine Urine Chloride 03/30/17 03/30/17 03/30/17 07:32 07:38 08:20 WBC 27.7 H RBC 3.14 L Hgb 9.7 L Hct 30.1 L MCV 96 H MCH MCHC RDW 16.2 H Plt Count Lymph % (Auto) [place] % (Auto) Lymph # [place] # Seg Neutrophils % Seg Neuts % (Manual) 93.0 H Lymphocytes % (Manual) 1.0 L Monocytes % (Manual) Seg Neutrophils # Seg Neutrophils # Man 25.8 H Lymphocytes # (Manual) 0.3 L Monocytes # (Manual) 1.0 H Eosinophils # (Manual) PT INR APTT Heparin Anti-Xa Level 0.99 H POC ABG pH POC ABG pCO2 POC ABG pO2 Sodium 127 L Potassium 5.9 H Chloride 88.5 L Carbon Dioxide 16 L BUN 101 H Creatinine 7.5 H Glucose 147 H POC Glucose Calcium 8.0 L Phosphorus Magnesium Total Bilirubin AST Total Creatine Kinase CK-MB (CK-2) Total Protein Albumin Urine Creatinine Urine Chloride 03/30/17 03/30/17 03/30/17 12:19 16:07 16:58 WBC RBC Hgb Hct MCV MCH MCHC RDW Plt Count Lymph % (Auto) [place] % (Auto) Lymph # [place] # Seg Neutrophils % Seg Neuts % (Manual) Lymphocytes % (Manual) Monocytes % (Manual) Seg Neutrophils # Seg Neutrophils # Man Lymphocytes # (Manual) Monocytes # (Manual) Eosinophils # (Manual) PT INR APTT Heparin Anti-Xa Level 1.07 H POC ABG pH POC ABG pCO2 POC ABG pO2 62 L Sodium Potassium Chloride Carbon Dioxide BUN Creatinine Glucose POC Glucose 179 H Calcium Phosphorus Magnesium Total Bilirubin AST Total Creatine Kinase CK-MB (CK-2) Total Protein Albumin Urine Creatinine Urine Chloride 03/30/17 03/30/17 03/31/17 17:48 Unknown 00:25 WBC RBC Hgb Hct MCV MCH MCHC RDW Plt Count Lymph % (Auto) [place] % (Auto) Lymph # [place] # Seg Neutrophils % Seg Neuts % (Manual) Lymphocytes % (Manual) Monocytes % (Manual) Seg Neutrophils # Seg Neutrophils # Man Lymphocytes # (Manual) Monocytes # (Manual) Eosinophils # (Manual) PT INR APTT Heparin Anti-Xa Level POC ABG pH POC ABG pCO2 POC ABG pO2 Sodium 124 L Potassium 5.2 H Chloride 86.6 L Carbon Dioxide 16 L BUN 93 H Creatinine 6.3 H Glucose 153 H POC Glucose 162 H 139 H Calcium 7.4 L D Phosphorus Magnesium Total Bilirubin AST Total Creatine Kinase CK-MB (CK-2) Total Protein Albumin Urine Creatinine Urine Chloride 03/31/17 03/31/17 03/31/17 04:18 05:21 11:39 WBC RBC Hgb Hct MCV MCH MCHC RDW Plt Count Lymph % (Auto) [place] % (Auto) Lymph # [place] # Seg Neutrophils % Seg Neuts % (Manual) Lymphocytes % (Manual) Monocytes % (Manual) Seg Neutrophils # Seg Neutrophils # Man Lymphocytes # (Manual) Monocytes # (Manual) Eosinophils # (Manual) PT INR APTT Heparin Anti-Xa Level POC ABG pH 7.209 L POC ABG pCO2 55.7 H POC ABG pO2 106 H Sodium Potassium Chloride Carbon Dioxide BUN Creatinine Glucose POC Glucose 133 H 133 H Calcium Phosphorus Magnesium Total Bilirubin AST Total Creatine Kinase CK-MB (CK-2) Total Protein Albumin Urine Creatinine Urine Chloride 03/31/17 03/31/17 03/31/17 16:53 Unknown Unknown WBC 25.9 H RBC 3.04 L Hgb 9.6 L Hct 29.9 L MCV 98 H MCH MCHC RDW 16.1 H Plt Count Lymph % (Auto) [place] % (Auto) Lymph # [place] # Seg Neutrophils % Seg Neuts % (Manual) Lymphocytes % (Manual) Monocytes % (Manual) Seg Neutrophils # Seg Neutrophils # Man Lymphocytes # (Manual) Monocytes # (Manual) Eosinophils # (Manual) PT INR APTT Heparin Anti-Xa Level POC ABG pH POC ABG pCO2 POC ABG pO2 Sodium 133 L Potassium Chloride 91.6 L Carbon Dioxide 20 L BUN 67 H Creatinine 5.3 H Glucose 129 H POC Glucose 146 H Calcium 7.4 L Phosphorus Magnesium Total Bilirubin AST Total Creatine Kinase CK-MB (CK-2) Total Protein Albumin Urine Creatinine Urine Chloride 03/31/17 04/01/17 04/01/17 23:59 04:00 04:00 WBC 16.1 H RBC 3.02 L Hgb 9.6 L Hct 29.0 L MCV 96 H MCH MCHC RDW 16.0 H Plt Count Lymph % (Auto) [place] % (Auto) Lymph # [place] # Seg Neutrophils % Seg Neuts % (Manual) Lymphocytes % (Manual) Monocytes % (Manual) Seg Neutrophils # Seg Neutrophils # Man Lymphocytes # (Manual) Monocytes # (Manual) Eosinophils # (Manual) PT INR APTT Heparin Anti-Xa Level POC ABG pH POC ABG pCO2 POC ABG pO2 Sodium Potassium 3.1 L D Chloride 96.0 L Carbon Dioxide BUN 45 H Creatinine 4.1 H Glucose POC Glucose 121 H Calcium 7.1 L Phosphorus Magnesium Total Bilirubin AST Total Creatine Kinase CK-MB (CK-2) Total Protein Albumin Urine Creatinine Urine Chloride 04/01/17 04/02/17 04/02/17 05:20 00:15 04:00 WBC 13.5 H RBC 3.05 L Hgb 9.7 L Hct 29.2 L MCV 96 H MCH MCHC RDW 15.9 H Plt Count Lymph % (Auto) [place] % (Auto) Lymph # [place] # Seg Neutrophils % Seg Neuts % (Manual) Lymphocytes % (Manual) Monocytes % (Manual) Seg Neutrophils # Seg Neutrophils # Man Lymphocytes # (Manual) Monocytes # (Manual) Eosinophils # (Manual) PT INR APTT Heparin Anti-Xa Level POC ABG pH POC ABG pCO2 POC ABG pO2 132 H Sodium Potassium Chloride Carbon Dioxide BUN Creatinine Glucose POC Glucose 110 H Calcium Phosphorus Magnesium Total Bilirubin AST Total Creatine Kinase CK-MB (CK-2) Total Protein Albumin Urine Creatinine Urine Chloride 04/02/17 04/02/17 04/02/17 04:22 04:35 05:25 WBC RBC Hgb Hct MCV MCH MCHC RDW Plt Count Lymph % (Auto) [place] % (Auto) Lymph # [place] # Seg Neutrophils % Seg Neuts % (Manual) Lymphocytes % (Manual) Monocytes % (Manual) Seg Neutrophils # Seg Neutrophils # Man Lymphocytes # (Manual) Monocytes # (Manual) Eosinophils # (Manual) PT INR APTT Heparin Anti-Xa Level POC ABG pH POC ABG pCO2 POC ABG pO2 106 H Sodium Potassium 2.8 L* Chloride Carbon Dioxide BUN 30 H Creatinine 3.5 H Glucose 113 H POC Glucose 110 H Calcium 7.6 L Phosphorus Magnesium Total Bilirubin AST Total Creatine Kinase CK-MB (CK-2) Total Protein Albumin Urine Creatinine Urine Chloride 04/02/17 04/02/17 04/02/17 06:49 11:56 18:02 WBC RBC Hgb Hct MCV MCH MCHC RDW Plt Count Lymph % (Auto) [place] % (Auto) Lymph # [place] # Seg Neutrophils % Seg Neuts % (Manual) Lymphocytes % (Manual) Monocytes % (Manual) Seg Neutrophils # Seg Neutrophils # Man Lymphocytes # (Manual) Monocytes # (Manual) Eosinophils # (Manual) PT INR APTT Heparin Anti-Xa Level 0.23 L POC ABG pH POC ABG pCO2 POC ABG pO2 Sodium Potassium Chloride Carbon Dioxide BUN Creatinine Glucose POC Glucose 118 H 128 H Calcium Phosphorus Magnesium Total Bilirubin AST Total Creatine Kinase CK-MB (CK-2) Total Protein Albumin Urine Creatinine Urine Chloride 04/03/17 04/03/17 04/03/17 00:15 04:41 05:54 WBC RBC Hgb Hct MCV MCH MCHC RDW Plt Count Lymph % (Auto) [place] % (Auto) Lymph # [place] # Seg Neutrophils % Seg Neuts % (Manual) Lymphocytes % (Manual) Monocytes % (Manual) Seg Neutrophils # Seg Neutrophils # Man Lymphocytes # (Manual) Monocytes # (Manual) Eosinophils # (Manual) PT INR APTT Heparin Anti-Xa Level POC ABG pH 7.451 H POC ABG pCO2 POC ABG pO2 146 H Sodium Potassium Chloride Carbon Dioxide BUN Creatinine Glucose POC Glucose 202 H 202 H Calcium Phosphorus Magnesium Total Bilirubin AST Total Creatine Kinase CK-MB (CK-2) Total Protein Albumin Urine Creatinine Urine Chloride 04/03/17 04/03/17 04/03/17 06:22 06:22 09:54 WBC RBC 3.03 L Hgb 9.7 L Hct 28.7 L MCV 95 H MCH MCHC RDW 15.9 H Plt Count Lymph % (Auto) [place] % (Auto) Lymph # [place] # Seg Neutrophils % Seg Neuts % (Manual) Lymphocytes % (Manual) Monocytes % (Manual) Seg Neutrophils # Seg Neutrophils # Man Lymphocytes # (Manual) Monocytes # (Manual) Eosinophils # (Manual) PT INR APTT Heparin Anti-Xa Level < 0.10 L POC ABG pH POC ABG pCO2 POC ABG pO2 Sodium Potassium Chloride Carbon Dioxide BUN 23 H Creatinine 3.1 H Glucose 175 H POC Glucose Calcium 8.0 L Phosphorus Magnesium Total Bilirubin AST Total Creatine Kinase CK-MB (CK-2) Total Protein Albumin Urine Creatinine Urine Chloride 04/03/17 04/03/17 04/03/17 11:40 11:45 16:25 WBC RBC Hgb Hct MCV MCH MCHC RDW Plt Count Lymph % (Auto) [place] % (Auto) Lymph # [place] # Seg Neutrophils % Seg Neuts % (Manual) Lymphocytes % (Manual) Monocytes % (Manual) Seg Neutrophils # Seg Neutrophils # Man Lymphocytes # (Manual) Monocytes # (Manual) Eosinophils # (Manual) PT INR APTT Heparin Anti-Xa Level 0.27 L POC ABG pH POC ABG pCO2 POC ABG pO2 Sodium Potassium Chloride Carbon Dioxide BUN Creatinine Glucose POC Glucose 205 H 191 H Calcium Phosphorus Magnesium Total Bilirubin AST Total Creatine Kinase CK-MB (CK-2) Total Protein Albumin Urine Creatinine Urine Chloride 04/03/17 04/04/17 04/04/17 21:42 04:00 04:00 WBC 11.7 H RBC 3.20 L Hgb 10.0 L Hct 31.2 L MCV 96 H MCH MCHC RDW 16.1 H Plt Count Lymph % (Auto) [place] % (Auto) Lymph # [place] # Seg Neutrophils % Seg Neuts % (Manual) 94.0 H Lymphocytes % (Manual) 0 L Monocytes % (Manual) Seg Neutrophils # Seg Neutrophils # Man 11.0 H Lymphocytes # (Manual) 0.0 L Monocytes # (Manual) Eosinophils # (Manual) PT INR APTT Heparin Anti-Xa Level POC ABG pH POC ABG pCO2 POC ABG pO2 Sodium 136 L Potassium Chloride 97.6 L Carbon Dioxide 21 L BUN 41 H Creatinine 4.0 H Glucose 184 H POC Glucose 147 H Calcium 8.1 L Phosphorus Magnesium Total Bilirubin AST Total Creatine Kinase CK-MB (CK-2) Total Protein Albumin Urine Creatinine Urine Chloride 04/04/17 04/04/17 04/04/17 05:12 06:17 12:32 WBC RBC Hgb Hct MCV MCH MCHC RDW Plt Count Lymph % (Auto) [place] % (Auto) Lymph # [place] # Seg Neutrophils % Seg Neuts % (Manual) Lymphocytes % (Manual) Monocytes % (Manual) Seg Neutrophils # Seg Neutrophils # Man Lymphocytes # (Manual) Monocytes # (Manual) Eosinophils # (Manual) PT INR APTT Heparin Anti-Xa Level POC ABG pH POC ABG pCO2 34.3 L POC ABG pO2 Sodium Potassium Chloride Carbon Dioxide BUN Creatinine Glucose POC Glucose 188 H 173 H Calcium Phosphorus Magnesium Total Bilirubin AST Total Creatine Kinase CK-MB (CK-2) Total Protein Albumin Urine Creatinine Urine Chloride 04/04/17 04/04/17 04/05/17 18:19 19:00 00:08 WBC RBC Hgb Hct MCV MCH MCHC RDW Plt Count Lymph % (Auto) [place] % (Auto) Lymph # [place] # Seg Neutrophils % Seg Neuts % (Manual) Lymphocytes % (Manual) Monocytes % (Manual) Seg Neutrophils # Seg Neutrophils # Man Lymphocytes # (Manual) Monocytes # (Manual) Eosinophils # (Manual) PT INR APTT Heparin Anti-Xa Level 0.98 H POC ABG pH POC ABG pCO2 POC ABG pO2 Sodium Potassium Chloride Carbon Dioxide BUN Creatinine Glucose POC Glucose 167 H 181 H Calcium Phosphorus Magnesium Total Bilirubin AST Total Creatine Kinase CK-MB (CK-2) Total Protein Albumin Urine Creatinine Urine Chloride 04/05/17 04/05/17 04/05/17 04:29 05:24 11:42 WBC RBC Hgb Hct MCV MCH MCHC RDW Plt Count Lymph % (Auto) [place] % (Auto) Lymph # [place] # Seg Neutrophils % Seg Neuts % (Manual) Lymphocytes % (Manual) Monocytes % (Manual) Seg Neutrophils # Seg Neutrophils # Man Lymphocytes # (Manual) Monocytes # (Manual) Eosinophils # (Manual) PT INR APTT Heparin Anti-Xa Level POC ABG pH 7.453 H POC ABG pCO2 33.7 L POC ABG pO2 Sodium Potassium Chloride Carbon Dioxide BUN Creatinine Glucose POC Glucose 180 H 166 H Calcium Phosphorus Magnesium Total Bilirubin AST Total Creatine Kinase CK-MB (CK-2) Total Protein Albumin Urine Creatinine Urine Chloride 04/05/17 04/06/17 04/06/17 17:43 00:16 05:08 WBC RBC Hgb Hct MCV MCH MCHC RDW Plt Count Lymph % (Auto) [place] % (Auto) Lymph # [place] # Seg Neutrophils % Seg Neuts % (Manual) Lymphocytes % (Manual) Monocytes % (Manual) Seg Neutrophils # Seg Neutrophils # Man Lymphocytes # (Manual) Monocytes # (Manual) Eosinophils # (Manual) PT INR APTT Heparin Anti-Xa Level POC ABG pH POC ABG pCO2 POC ABG pO2 Sodium Potassium Chloride Carbon Dioxide BUN Creatinine Glucose POC Glucose 165 H 172 H 166 H Calcium Phosphorus Magnesium Total Bilirubin AST Total Creatine Kinase CK-MB (CK-2) Total Protein Albumin Urine Creatinine Urine Chloride 04/06/17 04/06/17 04/06/17 06:30 06:30 12:15 WBC 12.8 H RBC 3.20 L Hgb 10.0 L Hct 30.1 L MCV MCH MCHC RDW 15.8 H Plt Count Lymph % (Auto) [place] % (Auto) Lymph # [place] # Seg Neutrophils % Seg Neuts % (Manual) 97.0 H Lymphocytes % (Manual) 0 L Monocytes % (Manual) Seg Neutrophils # Seg Neutrophils # Man 12.4 H Lymphocytes # (Manual) 0.0 L Monocytes # (Manual) Eosinophils # (Manual) PT INR APTT Heparin Anti-Xa Level POC ABG pH POC ABG pCO2 POC ABG pO2 Sodium 131 L Potassium Chloride 92.5 L Carbon Dioxide 20 L BUN 74 H Creatinine 4.7 H Glucose 185 H POC Glucose 166 H Calcium 8.0 L Phosphorus Magnesium Total Bilirubin AST Total Creatine Kinase CK-MB (CK-2) Total Protein Albumin Urine Creatinine Urine Chloride 04/06/17 04/06/17 04/07/17 17:52 23:16 05:45 WBC RBC Hgb Hct MCV MCH MCHC RDW Plt Count Lymph % (Auto) [place] % (Auto) Lymph # [place] # Seg Neutrophils % Seg Neuts % (Manual) Lymphocytes % (Manual) Monocytes % (Manual) Seg Neutrophils # Seg Neutrophils # Man Lymphocytes # (Manual) Monocytes # (Manual) Eosinophils # (Manual) PT INR APTT Heparin Anti-Xa Level POC ABG pH POC ABG pCO2 POC ABG pO2 Sodium Potassium Chloride Carbon Dioxide BUN Creatinine Glucose POC Glucose 174 H 173 H 154 H Calcium Phosphorus Magnesium Total Bilirubin AST Total Creatine Kinase CK-MB (CK-2) Total Protein Albumin Urine Creatinine Urine Chloride 04/07/17 04/07/17 04/07/17 06:00 06:00 09:21 WBC RBC 3.32 L Hgb 10.3 L Hct 31.3 L MCV MCH MCHC RDW 15.7 H Plt Count 125 L Lymph % (Auto) [place] % (Auto) Lymph # [place] # Seg Neutrophils % Seg Neuts % (Manual) 90.0 H Lymphocytes % (Manual) 5.0 L Monocytes % (Manual) Seg Neutrophils # Seg Neutrophils # Man 9.7 H Lymphocytes # (Manual) 0.5 L Monocytes # (Manual) Eosinophils # (Manual) PT INR APTT Heparin Anti-Xa Level POC ABG pH 7.323 L POC ABG pCO2 POC ABG pO2 Sodium 131 L Potassium Chloride 91.9 L Carbon Dioxide 20 L BUN 62 H Creatinine 3.8 H Glucose 178 H POC Glucose Calcium Phosphorus Magnesium Total Bilirubin AST Total Creatine Kinase CK-MB (CK-2) Total Protein Albumin Urine Creatinine Urine Chloride 04/07/17 04/07/17 04/07/17 12:23 17:20 23:43 WBC RBC Hgb Hct MCV MCH MCHC RDW Plt Count Lymph % (Auto) [place] % (Auto) Lymph # [place] # Seg Neutrophils % Seg Neuts % (Manual) Lymphocytes % (Manual) Monocytes % (Manual) Seg Neutrophils # Seg Neutrophils # Man Lymphocytes # (Manual) Monocytes # (Manual) Eosinophils # (Manual) PT INR APTT Heparin Anti-Xa Level POC ABG pH POC ABG pCO2 POC ABG pO2 Sodium Potassium Chloride Carbon Dioxide BUN Creatinine Glucose POC Glucose 160 H 169 H 176 H Calcium Phosphorus Magnesium Total Bilirubin AST Total Creatine Kinase CK-MB (CK-2) Total Protein Albumin Urine Creatinine Urine Chloride 04/08/17 04/08/17 04/08/17 06:08 08:18 08:18 WBC RBC 3.50 L Hgb 11.0 L Hct 33.7 L MCV 96 H MCH MCHC RDW 15.6 H Plt Count 130 L Lymph % (Auto) [place] % (Auto) Lymph # [place] # Seg Neutrophils % Seg Neuts % (Manual) 88.0 H Lymphocytes % (Manual) 6.0 L Monocytes % (Manual) Seg Neutrophils # Seg Neutrophils # Man 9.2 H Lymphocytes # (Manual) 0.6 L Monocytes # (Manual) Eosinophils # (Manual) PT INR APTT Heparin Anti-Xa Level POC ABG pH POC ABG pCO2 POC ABG pO2 Sodium 127 L Potassium 5.7 H D Chloride 88.5 L Carbon Dioxide 19 L BUN 92 H Creatinine 5.0 H Glucose 176 H POC Glucose 191 H Calcium 8.1 L Phosphorus Magnesium Total Bilirubin AST Total Creatine Kinase CK-MB (CK-2) Total Protein Albumin Urine Creatinine Urine Chloride 04/08/17 04/08/17 04/09/17 08:18 11:52 03:27 WBC RBC Hgb Hct MCV MCH MCHC RDW Plt Count Lymph % (Auto) [place] % (Auto) Lymph # [place] # Seg Neutrophils % Seg Neuts % (Manual) Lymphocytes % (Manual) Monocytes % (Manual) Seg Neutrophils # Seg Neutrophils # Man Lymphocytes # (Manual) Monocytes # (Manual) Eosinophils # (Manual) PT INR APTT Heparin Anti-Xa Level 1.02 H POC ABG pH POC ABG pCO2 POC ABG pO2 Sodium Potassium Chloride Carbon Dioxide BUN Creatinine Glucose POC Glucose 176 H 208 H Calcium Phosphorus Magnesium Total Bilirubin AST Total Creatine Kinase CK-MB (CK-2) Total Protein Albumin Urine Creatinine Urine Chloride 04/09/17 04/09/17 04/09/17 04:45 04:45 06:34 WBC RBC 3.21 L Hgb 10.1 L Hct 30.6 L MCV 96 H MCH MCHC RDW 15.3 H Plt Count 127 L Lymph % (Auto) 1.9 L [place] % (Auto) 8.4 H Lymph # 0.2 L [place] # Seg Neutrophils % 89.7 H Seg Neuts % (Manual) Lymphocytes % (Manual) Monocytes % (Manual) Seg Neutrophils # Seg Neutrophils # Man Lymphocytes # (Manual) Monocytes # (Manual) Eosinophils # (Manual) PT INR APTT Heparin Anti-Xa Level POC ABG pH POC ABG pCO2 POC ABG pO2 Sodium 130 L Potassium Chloride 89.8 L Carbon Dioxide BUN 60 H Creatinine 3.3 H Glucose 182 H POC Glucose 198 H Calcium 7.5 L Phosphorus Magnesium Total Bilirubin AST Total Creatine Kinase CK-MB (CK-2) Total Protein Albumin Urine Creatinine Urine Chloride 04/09/17 04/10/17 04/10/17 11:53 01:11 03:00 WBC RBC Hgb Hct MCV MCH MCHC RDW Plt Count Lymph % (Auto) [place] % (Auto) Lymph # [place] # Seg Neutrophils % Seg Neuts % (Manual) Lymphocytes % (Manual) Monocytes % (Manual) Seg Neutrophils # Seg Neutrophils # Man Lymphocytes # (Manual) Monocytes # (Manual) Eosinophils # (Manual) PT 16.2 H INR 1.24 H APTT Heparin Anti-Xa Level POC ABG pH POC ABG pCO2 POC ABG pO2 Sodium Potassium Chloride Carbon Dioxide BUN Creatinine Glucose POC Glucose 212 H 224 H Calcium Phosphorus Magnesium Total Bilirubin AST Total Creatine Kinase CK-MB (CK-2) Total Protein Albumin Urine Creatinine Urine Chloride 04/10/17 04/10/17 04/10/17 04:30 06:52 11:07 WBC RBC 3.29 L Hgb 10.2 L Hct 30.6 L MCV MCH MCHC RDW 15.7 H Plt Count 105 L Lymph % (Auto) 2.3 L [place] % (Auto) 8.1 H Lymph # 0.2 L [place] # 0.9 H Seg Neutrophils % 89.6 H Seg Neuts % (Manual) Lymphocytes % (Manual) Monocytes % (Manual) Seg Neutrophils # 9.8 H Seg Neutrophils # Man Lymphocytes # (Manual) Monocytes # (Manual) Eosinophils # (Manual) PT INR APTT Heparin Anti-Xa Level POC ABG pH POC ABG pCO2 POC ABG pO2 Sodium Potassium Chloride Carbon Dioxide BUN Creatinine Glucose POC Glucose 219 H 302 H Calcium Phosphorus Magnesium Total Bilirubin AST Total Creatine Kinase CK-MB (CK-2) Total Protein Albumin Urine Creatinine Urine Chloride 04/10/17 04/10/17 04/11/17 17:29 Unknown 01:13 WBC RBC Hgb Hct MCV MCH MCHC RDW Plt Count Lymph % (Auto) [place] % (Auto) Lymph # [place] # Seg Neutrophils % Seg Neuts % (Manual) Lymphocytes % (Manual) Monocytes % (Manual) Seg Neutrophils # Seg Neutrophils # Man Lymphocytes # (Manual) Monocytes # (Manual) Eosinophils # (Manual) PT INR APTT Heparin Anti-Xa Level POC ABG pH POC ABG pCO2 POC ABG pO2 Sodium 133 L Potassium Chloride 91.5 L Carbon Dioxide BUN 51 H Creatinine 3.0 H Glucose 217 H POC Glucose 184 H 249 H Calcium 7.5 L Phosphorus Magnesium Total Bilirubin AST Total Creatine Kinase CK-MB (CK-2) Total Protein Albumin Urine Creatinine Urine Chloride 04/11/17 04/11/17 04/11/17 05:46 05:46 05:57 WBC RBC 3.24 L Hgb 10.1 L Hct 30.2 L MCV MCH MCHC RDW 15.3 H Plt Count 85 L Lymph % (Auto) 2.5 L [place] % (Auto) 8.3 H Lymph # 0.2 L [place] # Seg Neutrophils % 89.1 H Seg Neuts % (Manual) Lymphocytes % (Manual) Monocytes % (Manual) Seg Neutrophils # 8.5 H Seg Neutrophils # Man Lymphocytes # (Manual) Monocytes # (Manual) Eosinophils # (Manual) PT INR APTT Heparin Anti-Xa Level POC ABG pH POC ABG pCO2 POC ABG pO2 Sodium 131 L Potassium Chloride 89.5 L Carbon Dioxide BUN 76 H Creatinine 3.8 H Glucose 159 H POC Glucose 168 H Calcium 7.5 L Phosphorus Magnesium Total Bilirubin AST Total Creatine Kinase CK-MB (CK-2) Total Protein Albumin Urine Creatinine Urine Chloride 04/11/17 04/11/17 04/12/17 10:52 13:01 00:27 WBC RBC Hgb Hct MCV MCH MCHC RDW Plt Count Lymph % (Auto) [place] % (Auto) Lymph # [place] # Seg Neutrophils % Seg Neuts % (Manual) Lymphocytes % (Manual) Monocytes % (Manual) Seg Neutrophils # Seg Neutrophils # Man Lymphocytes # (Manual) Monocytes # (Manual) Eosinophils # (Manual) PT 23.0 H INR 1.92 H APTT Heparin Anti-Xa Level POC ABG pH POC ABG pCO2 POC ABG pO2 Sodium Potassium Chloride Carbon Dioxide BUN Creatinine Glucose POC Glucose 183 H 242 H Calcium Phosphorus Magnesium Total Bilirubin AST Total Creatine Kinase CK-MB (CK-2) Total Protein Albumin Urine Creatinine Urine Chloride 04/12/17 04/12/17 04/12/17 05:04 05:04 05:04 WBC 17.7 H RBC 3.42 L Hgb 10.5 L Hct 32.2 L MCV MCH MCHC RDW 15.8 H Plt Count 98 L Lymph % (Auto) 4.4 L [place] % (Auto) 12.4 H Lymph # 0.8 L [place] # 2.2 H Seg Neutrophils % 82.7 H Seg Neuts % (Manual) Lymphocytes % (Manual) Monocytes % (Manual) Seg Neutrophils # 14.7 H Seg Neutrophils # Man Lymphocytes # (Manual) Monocytes # (Manual) Eosinophils # (Manual) PT 35.3 H INR 3.30 H APTT Heparin Anti-Xa Level POC ABG pH POC ABG pCO2 POC ABG pO2 Sodium 134 L Potassium Chloride 92.3 L Carbon Dioxide BUN 51 H Creatinine 3.1 H Glucose 115 H POC Glucose Calcium 7.8 L Phosphorus Magnesium Total Bilirubin AST Total Creatine Kinase CK-MB (CK-2) Total Protein Albumin Urine Creatinine Urine Chloride
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
[2017-04-13] MEDS: CARDIZEM PO SCH ×4 (00:20→17:21)
[2017-04-13] MEDS: NOVOLOG SUB-Q SCH ×4 (00:37→17:21)
[2017-04-13] MEDS: DUONEB *Not for PRN Use IH SCH ×5 (02:35→21:41)
[2017-04-13 06:46] LABS: INR 5.71 (0.87-1.13)
--- NOTE | 2017-04-13 09:37 | Progress Note ---
Subjective Principal diagnosis: afib, EtOH abuse, morbid obesity, respiratory failure status post extubatio Interval history: Patient was seen today for follow-up and multiple renal-related issues He is due for dialysis today more alert awake Events of 24 hours vitals labs intake output medications were reviewed Social history: Reviewed Family history: Reviewed Allergies: Reviewed Physical examination Vitals reviewed HEENT: Mild pallor no icterus Neck: Supple no JVD Chest: Clear to auscultation Heart: Regular rate and rhythm Abdomen soft nontender no renal bruit no CVA tenderness Extremity: Generalized edema 1+ Assessment and plan Acute kidney injury patient is currently dialysis-dependent on Tuesday and Tuesday schedule Dialysis time will be increased to 4 hours for now and follow on the dialysis labs Urine output has been slowly improving to monitor for recovery of renal function Possible vancomycin toxicity with acute tubular necrosis Patient will need to continue with hemodialysis for now avoid nephrotoxic medication Cardiomyopathy noted Altered mental status improving slowly Hemoglobin appears to be stable monitor metabolic control as well as hemoglobin He does appear to have some peripheral edema Patient was adequately counseled and educated regarding renal-related issues Objective - Vital Signs Vital signs: Vital Signs - 12hr 04/12/17 04/12/17 04/12/17 21:47 21:59 22:15 Temperature Pulse Rate Pulse Rate [ 67 69 Anterior Bilateral Throughout] Pulse Rate [ Left Radial] Respiratory Rate Respiratory 20 18 Rate [Anterior Bilateral Throughout] Blood Pressure [Left Arm] O2 Sat by Pulse 94 Oximetry 04/13/17 04/13/17 04/13/17 00:00 00:06 01:38 Temperature 98.0 F Pulse Rate 85 Pulse Rate [ Anterior Bilateral Throughout] Pulse Rate [ 77 Left Radial] Respiratory 18 22 21 Rate Respiratory Rate [Anterior Bilateral Throughout] Blood Pressure 118/89 [Left Arm] O2 Sat by Pulse 98 97 Oximetry 04/13/17 04/13/17 04/13/17 04:00 08:45 09:00 Temperature 98.3 F 98.5 F Pulse Rate 96 H Pulse Rate [ Anterior Bilateral Throughout] Pulse Rate [ 72 106 H Left Radial] Respiratory 18 20 Rate Respiratory Rate [Anterior Bilateral Throughout] Blood Pressure 129/81 133/72 [Left Arm] O2 Sat by Pulse 97 97 Oximetry - Lab 04/12/17 05:04 04/12/17 05:04 Most recent lab results Calcium 7.8 mg/dL (8.4-10.2) L 04/12/17 05:04 Phosphorus 4.60 mg/dL (2.5-4.5) H 03/06/17 04:50 Magnesium 1.60 mg/dL (1.7-2.3) L 03/19/17 06:55 Urine Creatinine 86.5 mg/dL (0.1-20.0) H 03/29/17 22:10 Urine Sodium 28 mEq/L 03/29/17 22:10
[2017-04-13] MEDS: APRESOLINE PO SCH ×3 (09:42→21:42)
[2017-04-13] MEDS: LOPRESSOR PO SCH ×3 (09:42→21:41)
[2017-04-13] MEDS: VITAMIN B-1 PO SCH (10:46)
[2017-04-13] MEDS: PROTONIX PO SCH (10:46)
[2017-04-13] MEDS: ZESTRIL PO SCH (10:46)
[2017-04-13] MEDS: FOLVITE PO SCH (10:46)
[2017-04-13] MEDS: ATIVAN IV PRN (16:14)
[2017-04-13] MEDS ORDERED: NACL 0.9% 1000 ML 2,000 ML ONE (17:43)
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
[2017-04-13] MEDS: HEPARIN IV PRN (21:18)
[2017-04-14] MEDS: CARDIZEM PO SCH ×4 (00:28→17:49)
[2017-04-14] MEDS: ATIVAN IV PRN (00:28)
[2017-04-14] MEDS: NOVOLOG SUB-Q SCH ×4 (01:49→20:00)
[2017-04-14] MEDS: DUONEB *Not for PRN Use IH SCH ×4 (02:28→21:31)
[2017-04-14 06:21] LABS: INR 4.5 (0.87-1.13)
--- NOTE | 2017-04-14 07:29 | Progress Note ---
Subjective Principal diagnosis: afib, EtOH abuse, morbid obesity, respiratory failure status post extubatio Interval history: Patient was seen today for follow-up and multiple renal-related issues He is doing about the same but getting more alert awake He has been dialysis dependent for acute kidney injury Urine output has been approximately 900 mL slowly improving Events of 24 hours vitals labs intake output medications were reviewed Social history: Reviewed Family history: Reviewed Allergies: Reviewed Physical examination Vitals reviewed HEENT: Mild pallor no icterus Neck: Supple no JVD Chest: Clear to auscultation Heart: Regular rate and rhythm Abdomen soft nontender no renal bruit no CVA tenderness Extremity: Generalized edema 1+ Assessment and plan Acute kidney injury patient is currently dialysis-dependent on Tuesday and Tuesday schedule Labs were reviewed from today, patient is currently becoming nonoliguric He is currently on 4 hours of dialysis still continues to have some peripheral edema Possibility of underlying vancomycin toxicity along with acute tubular necrosis is very likely Renal prognosis appears to be guarded but kidney function has been improving Patient has multiple other comorbidities including cardiomyopathy Encephalopathy currently improving as well slowly Patient has been adequately counseled and educated regarding renal related issues We'll continue to follow and make recommendation from renal standpoint Objective - Vital Signs Vital signs: Vital Signs - 12hr 04/13/17 04/13/17 04/13/17 19:30 19:45 20:00 Temperature Pulse Rate 102 H 104 H 101 H Pulse Rate [ Anterior Bilateral Throughout] Pulse Rate [ Left Radial] Respiratory Rate Respiratory Rate [Anterior Bilateral Throughout] Blood Pressure 110/57 121/67 136/78 Blood Pressure [Left Arm] O2 Sat by Pulse Oximetry O2 Sat by Pulse Oximetry [ Anterior Bilateral Throughout] 04/13/17 04/13/17 04/13/17 20:15 20:30 20:53 Temperature 98.8 F Pulse Rate 93 H 97 H 111 H Pulse Rate [ Anterior Bilateral Throughout] Pulse Rate [ Left Radial] Respiratory 20 Rate Respiratory Rate [Anterior Bilateral Throughout] Blood Pressure 142/55 125/69 129/49 Blood Pressure [Left Arm] O2 Sat by Pulse Oximetry O2 Sat by Pulse 2 L Oximetry [ Anterior Bilateral Throughout] 04/13/17 04/13/17 04/13/17 21:40 21:41 21:42 Temperature Pulse Rate 104 H Pulse Rate [ 117 H Anterior Bilateral Throughout] Pulse Rate [ Left Radial] Respiratory 20 Rate Respiratory 20 Rate [Anterior Bilateral Throughout] Blood Pressure 147/75 Blood Pressure [Left Arm] O2 Sat by Pulse 95 Oximetry O2 Sat by Pulse Oximetry [ Anterior Bilateral Throughout] 04/13/17 04/13/17 04/14/17 21:55 23:47 00:00 Temperature 98.6 F Pulse Rate 106 H Pulse Rate [ 117 H Anterior Bilateral Throughout] Pulse Rate [ 105 H Left Radial] Respiratory 19 18 Rate Respiratory 20 Rate [Anterior Bilateral Throughout] Blood Pressure Blood Pressure 136/80 [Left Arm] O2 Sat by Pulse 98 98 Oximetry O2 Sat by Pulse Oximetry [ Anterior Bilateral Throughout] 04/14/17 04/14/17 04/14/17 00:28 02:30 02:40 Temperature Pulse Rate 105 H Pulse Rate [ 99 H 102 H Anterior Bilateral Throughout] Pulse Rate [ Left Radial] Respiratory Rate Respiratory 18 16 Rate [Anterior Bilateral Throughout] Blood Pressure 136/80 Blood Pressure [Left Arm] O2 Sat by Pulse Oximetry O2 Sat by Pulse Oximetry [ Anterior Bilateral Throughout] 04/14/17 04/14/17 04:00 06:05 Temperature 98.3 F Pulse Rate 81 Pulse Rate [ Anterior Bilateral Throughout] Pulse Rate [ 81 Left Radial] Respiratory 18 Rate Respiratory Rate [Anterior Bilateral Throughout] Blood Pressure 139/88 Blood Pressure 139/88 [Left Arm] O2 Sat by Pulse 97 Oximetry O2 Sat by Pulse Oximetry [ Anterior Bilateral Throughout] - Lab 04/12/17 05:04 04/12/17 05:04 Most recent lab results Calcium 7.8 mg/dL (8.4-10.2) L 04/12/17 05:04 Phosphorus 4.60 mg/dL (2.5-4.5) H 03/06/17 04:50 Magnesium 1.60 mg/dL (1.7-2.3) L 03/19/17 06:55 Urine Creatinine 86.5 mg/dL (0.1-20.0) H 03/29/17 22:10 Urine Sodium 28 mEq/L 03/29/17 22:10
[2017-04-14] MEDS: VITAMIN B-1 PO SCH (09:51)
[2017-04-14] MEDS: APRESOLINE PO SCH ×3 (09:52→21:58)
[2017-04-14] MEDS: LOPRESSOR PO SCH ×3 (09:52→21:58)
[2017-04-14] MEDS: FOLVITE PO SCH (09:52)
[2017-04-14] MEDS: PROTONIX PO SCH (09:52)
[2017-04-14] MEDS: ZESTRIL PO SCH (09:53)
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
[2017-04-14] MEDS ORDERED: COUMADIN NO DOSE TODAY PO ONE (17:00)
[2017-04-15] MEDS: NOVOLOG SUB-Q SCH ×4 (01:17→18:33)
[2017-04-15] MEDS: CARDIZEM PO SCH ×4 (01:53→18:15)
[2017-04-15] MEDS: DUONEB *Not for PRN Use IH SCH ×4 (02:06→21:53)
[2017-04-15 06:42] LABS: INR 4.08 (0.87-1.13)
--- NOTE | 2017-04-15 08:51 | Progress Note ---
Assessment and Plan Assessment: * Oliguric acute kidney injury secondary to ATN vs Vanco toxicity - dialysis dependent * Cardiomyopathy - EF 40% * Atrial fibrillation * Alcohol abuse * Aspiration PNA * LLE DVT Plan: * Continue hemodialysis MWF - UF as tolerated * Monitor for evidence of recovery * Anticoagulation per primaty team * Strict I/O * Avoid potential nephrotoxins * Dose medication for renal function Subjective Date of service: 04/15/17 Principal diagnosis: afib, EtOH abuse, morbid obesity, respiratory failure status post extubatio Interval history: Patient c/o cough today. Objective - Vital Signs Vital signs: Vital Signs - 12hr 04/14/17 04/14/17 04/14/17 21:00 21:03 21:31 Temperature 97.8 F Pulse Rate Pulse Rate [ 96 H Anterior Bilateral Throughout] Pulse Rate [ 97 H Left Radial] Respiratory 20 Rate Respiratory 20 Rate [Anterior Bilateral Throughout] Blood Pressure 134/67 [Left Arm] O2 Sat by Pulse 96 97 Oximetry 04/14/17 04/14/17 04/14/17 22:00 22:13 23:44 Temperature Pulse Rate 66 97 H Pulse Rate [ 98 H Anterior Bilateral Throughout] Pulse Rate [ Left Radial] Respiratory 20 Rate Respiratory 20 Rate [Anterior Bilateral Throughout] Blood Pressure [Left Arm] O2 Sat by Pulse 95 Oximetry 04/15/17 04/15/17 04/15/17 01:51 02:08 06:18 Temperature 97.6 F 98.5 F Pulse Rate Pulse Rate [ 61 Anterior Bilateral Throughout] Pulse Rate [ 61 81 Left Radial] Respiratory 22 18 Rate Respiratory 19 Rate [Anterior Bilateral Throughout] Blood Pressure 115/74 113/73 [Left Arm] O2 Sat by Pulse 99 98 Oximetry - General Appearance General appearance: well-developed, well-nourished EENT: ATNC Respiratory: Present: Decreased Breath Sounds Cardiology: regular, S1S2 Gastrointestinal: no tenderness, no distended, obese Neurologic: no focal deficit Musculoskeletal: other (2+ LE edema) - Lab 04/12/17 05:04 04/15/17 09:03 Most recent lab results Calcium 7.8 mg/dL (8.4-10.2) L 04/12/17 05:04 Phosphorus 4.60 mg/dL (2.5-4.5) H 03/06/17 04:50 Magnesium 1.60 mg/dL (1.7-2.3) L 03/19/17 06:55 Urine Creatinine 86.5 mg/dL (0.1-20.0) H 03/29/17 22:10 Urine Sodium 28 mEq/L 03/29/17 22:10
[2017-04-15] MEDS: APRESOLINE PO SCH ×3 (09:00→21:22)
[2017-04-15] MEDS: LOPRESSOR PO SCH ×3 (09:00→21:22)
[2017-04-15] MEDS: VITAMIN B-1 PO SCH (09:06)
[2017-04-15] MEDS: PROTONIX PO SCH (09:07)
[2017-04-15] MEDS: FOLVITE PO SCH (09:07)
[2017-04-15] MEDS: ZESTRIL PO SCH (09:07)
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
[2017-04-15 09:42] LABS: BUN/Creatinine Ratio 13.8; Chloride 94.6 mmol/L (98-107); Potassium 4.2 mmol/L (3.6-5.0)
[2017-04-15] MEDS: ULTRAM PO PRN (11:00)
[2017-04-15] MEDS ORDERED: CHLORASEPTIC MM PRN (12:00)
[2017-04-15] MEDS ORDERED: NACL 0.9% 1000 ML 2,000 ML ONE (12:32)
[2017-04-15] MEDS: HEPARIN IV PRN (17:08)
[2017-04-15] MEDS: TYLENOL PO PRN (21:21)
[2017-04-16] MEDS: NOVOLOG SUB-Q SCH ×4 (01:13→17:49)
[2017-04-16] MEDS: CARDIZEM PO SCH ×4 (01:14→17:49)
[2017-04-16] MEDS: DUONEB *Not for PRN Use IH SCH ×4 (03:03→20:29)
[2017-04-16 05:37] LABS: INR 2.89 (0.87-1.13)
[2017-04-16] MEDS: ZESTRIL PO SCH (10:13)
[2017-04-16] MEDS: FOLVITE PO SCH (10:13)
[2017-04-16] MEDS: VITAMIN B-1 PO SCH (10:13)
[2017-04-16] MEDS: PROTONIX PO SCH (10:13)
[2017-04-16] MEDS: ULTRAM PO PRN ×2 (10:17→17:55)
[2017-04-16] MEDS: APRESOLINE PO SCH ×3 (10:20→20:48)
[2017-04-16] MEDS: LOPRESSOR PO SCH ×3 (10:21→20:46)
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
--- NOTE | 2017-04-16 14:35 | Progress Note ---
Assessment and Plan Assessment: * Oliguric acute kidney injury secondary to ATN vs Vanco toxicity - dialysis dependent * Cardiomyopathy - EF 40% * Atrial fibrillation * Alcohol abuse * Aspiration PNA * LLE DVT Plan: * Continue hemodialysis MWF - UF as tolerated * Monitor for evidence of recovery * Anticoagulation per primaty team * Strict I/O * Avoid potential nephrotoxins * Dose medication for renal function Subjective Date of service: 04/16/17 Principal diagnosis: afib, EtOH abuse, morbid obesity, respiratory failure status post extubatio Interval history: Patient has no complaints. Objective - Vital Signs Vital signs: Vital Signs - 12hr 04/16/17 04/16/17 04/16/17 04:05 05:17 06:34 Temperature 97.6 F Pulse Rate 80 61 Pulse Rate [ Anterior Bilateral Throughout] Pulse Rate [ 77 From Monitor] Pulse Rate [ 77 Left Dorsalis Pedis] Pulse Rate [ 77 Left Popliteal] Pulse Rate [ 77 Left Radial] Pulse Rate [ 77 Right Dorsalis Pedis] Pulse Rate [ 77 Right Popliteal ] Pulse Rate [ 77 Right Radial] Respiratory 18 Rate Respiratory Rate [Anterior Bilateral Throughout] Blood Pressure 102/63 Blood Pressure 102/63 [Left Arm] O2 Sat by Pulse 98 Oximetry 04/16/17 04/16/17 04/16/17 07:00 09:00 09:32 Temperature 98.1 F Pulse Rate Pulse Rate [ 82 80 Anterior Bilateral Throughout] Pulse Rate [ 73 From Monitor] Pulse Rate [ 73 Left Dorsalis Pedis] Pulse Rate [ 73 Left Popliteal] Pulse Rate [ 73 Left Radial] Pulse Rate [ 73 Right Dorsalis Pedis] Pulse Rate [ 73 Right Popliteal ] Pulse Rate [ 73 Right Radial] Respiratory 18 Rate Respiratory 18 18 Rate [Anterior Bilateral Throughout] Blood Pressure Blood Pressure 106/70 [Left Arm] O2 Sat by Pulse 97 98 Oximetry 04/16/17 04/16/17 04/16/17 10:00 10:17 11:00 Temperature 98.4 F Pulse Rate 73 Pulse Rate [ Anterior Bilateral Throughout] Pulse Rate [ 73 90 From Monitor] Pulse Rate [ 90 Left Dorsalis Pedis] Pulse Rate [ 90 Left Popliteal] Pulse Rate [ 90 Left Radial] Pulse Rate [ 90 Right Dorsalis Pedis] Pulse Rate [ 90 Right Popliteal ] Pulse Rate [ 90 Right Radial] Respiratory 0 L 18 Rate Respiratory Rate [Anterior Bilateral Throughout] Blood Pressure Blood Pressure 111/70 [Left Arm] O2 Sat by Pulse 97 96 Oximetry 04/16/17 04/16/17 04/16/17 13:31 13:44 14:04 Temperature Pulse Rate Pulse Rate [ 92 H 100 H Anterior Bilateral Throughout] Pulse Rate [ From Monitor] Pulse Rate [ Left Dorsalis Pedis] Pulse Rate [ Left Popliteal] Pulse Rate [ Left Radial] Pulse Rate [ Right Dorsalis Pedis] Pulse Rate [ Right Popliteal ] Pulse Rate [ Right Radial] Respiratory Rate Respiratory 18 18 Rate [Anterior Bilateral Throughout] Blood Pressure Blood Pressure [Left Arm] O2 Sat by Pulse 98 Oximetry - General Appearance General appearance: well-developed, well-nourished EENT: ATNC Respiratory: Present: Decreased Breath Sounds Cardiology: regular, S1S2 Gastrointestinal: obese Integumentary: no rash Neurologic: no focal deficit Musculoskeletal: other (2+ pitting LE edema) Psychiatric: cooperative - Lab 04/12/17 05:04 04/15/17 09:03 Most recent lab results Calcium 8.0 mg/dL (8.4-10.2) L 04/15/17 09:03 Phosphorus 4.60 mg/dL (2.5-4.5) H 03/06/17 04:50 Magnesium 1.60 mg/dL (1.7-2.3) L 03/19/17 06:55 Urine Creatinine 86.5 mg/dL (0.1-20.0) H 03/29/17 22:10 Urine Sodium 28 mEq/L 03/29/17 22:10
[2017-04-16] MEDS: COUMADIN PO SCH (16:46)
[2017-04-17] MEDS: NOVOLOG SUB-Q SCH ×4 (00:29→17:02)
[2017-04-17] MEDS: CARDIZEM PO SCH ×4 (00:30→17:00)
[2017-04-17] MEDS: DUONEB *Not for PRN Use IH SCH ×4 (02:25→20:39)
[2017-04-17 05:10] LABS: INR 2.9 (0.87-1.13)
[2017-04-17] MEDS: LOPRESSOR PO SCH ×3 (08:11→21:58)
[2017-04-17] MEDS: APRESOLINE PO SCH ×3 (08:11→21:58)
[2017-04-17] MEDS: FOLVITE PO SCH (09:37)
[2017-04-17] MEDS: PROTONIX PO SCH (09:38)
[2017-04-17] MEDS: ZESTRIL PO SCH (09:39)
[2017-04-17] MEDS: VITAMIN B-1 PO SCH (09:39)
--- NOTE | 2017-04-17 14:43 | Progress Note ---
Assessment and Plan Assessment: * Oliguric acute kidney injury secondary to ATN vs Vanco toxicity - dialysis dependent * Cardiomyopathy - EF 40% * Atrial fibrillation * Alcohol abuse * Aspiration PNA * LLE DVT Plan: * Continue hemodialysis MWF - UF as tolerated * Monitor for evidence of recovery * Anticoagulation per primaty team * Strict I/O * Avoid potential nephrotoxins * Dose medication for renal function * AM labs ordered Subjective Date of service: 04/17/17 Principal diagnosis: afib, EtOH abuse, morbid obesity, respiratory failure status post extubatio Interval history: Patient has no complaints today - reports cough improved Objective - Vital Signs Vital signs: Vital Signs - 12hr 04/17/17 04/17/17 04/17/17 05:03 06:09 07:10 Temperature 97.6 F 98.5 F Pulse Rate 66 Pulse Rate [ Anterior Bilateral Throughout] Pulse Rate [ 84 70 From Monitor] Pulse Rate [ 84 70 Left Dorsalis Pedis] Pulse Rate [ 84 70 Left Popliteal] Pulse Rate [ 84 70 Left Radial] Pulse Rate [ 84 70 Right Dorsalis Pedis] Pulse Rate [ 84 70 Right Popliteal ] Pulse Rate [ 84 70 Right Radial] Respiratory 18 18 Rate Respiratory Rate [Anterior Bilateral Throughout] Blood Pressure 121/68 Blood Pressure 121/68 113/71 [Left Arm] O2 Sat by Pulse 98 100 Oximetry 04/17/17 04/17/17 04/17/17 08:51 09:03 10:00 Temperature Pulse Rate 80 Pulse Rate [ 82 78 Anterior Bilateral Throughout] Pulse Rate [ From Monitor] Pulse Rate [ Left Dorsalis Pedis] Pulse Rate [ Left Popliteal] Pulse Rate [ Left Radial] Pulse Rate [ Right Dorsalis Pedis] Pulse Rate [ Right Popliteal ] Pulse Rate [ Right Radial] Respiratory 20 Rate Respiratory 20 20 Rate [Anterior Bilateral Throughout] Blood Pressure Blood Pressure [Left Arm] O2 Sat by Pulse 99 98 Oximetry 04/17/17 04/17/17 04/17/17 11:59 12:05 14:34 Temperature 98.5 F Pulse Rate Pulse Rate [ 80 Anterior Bilateral Throughout] Pulse Rate [ 80 73 From Monitor] Pulse Rate [ 73 Left Dorsalis Pedis] Pulse Rate [ 73 Left Popliteal] Pulse Rate [ 73 Left Radial] Pulse Rate [ 73 Right Dorsalis Pedis] Pulse Rate [ 73 Right Popliteal ] Pulse Rate [ 73 Right Radial] Respiratory 20 20 Rate Respiratory 20 Rate [Anterior Bilateral Throughout] Blood Pressure Blood Pressure 131/78 [Left Arm] O2 Sat by Pulse 98 96 Oximetry - General Appearance General appearance: well-developed, well-nourished EENT: ATNC Respiratory: Present: Clear to Ascultation Cardiology: regular, S1S2 Gastrointestinal: no tenderness, no distended, obese Musculoskeletal: other (2+ LE edema) Psychiatric: cooperative - Lab 04/12/17 05:04 04/15/17 09:03 Most recent lab results Calcium 8.0 mg/dL (8.4-10.2) L 04/15/17 09:03 Phosphorus 4.60 mg/dL (2.5-4.5) H 03/06/17 04:50 Magnesium 1.60 mg/dL (1.7-2.3) L 03/19/17 06:55 Urine Creatinine 86.5 mg/dL (0.1-20.0) H 03/29/17 22:10 Urine Sodium 28 mEq/L 03/29/17 22:10
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
[2017-04-17] MEDS: COUMADIN PO SCH (17:00)
[2017-04-18] MEDS: NOVOLOG SUB-Q SCH ×4 (01:00→17:43)
[2017-04-18] MEDS: CARDIZEM PO SCH ×5 (02:48→23:25)
[2017-04-18] MEDS: DUONEB *Not for PRN Use IH SCH ×4 (03:30→19:41)
[2017-04-18 05:46] LABS: Basophils % (Auto) 1.1 % (0.0-1.8); Eosinophils % (Auto) 0.7 % (0.0-4.3); Hematocrit 28.4 % (35.5-45.6); Hemoglobin 9.3 gm/dl (11.8-15.2); Mean Corpuscular HGB Conc 33 % (32-34); Mean Corpuscular Hemoglobin 31 pg (28-32); Mean Corpuscular Volume 94 fl (84-94); Red Blood Count 3.03 M/mm3 (3.65-5.03); Red Cell Distribution Width 15.9 % (13.2-15.2); White Blood Count 16.2 K/mm3 (4.5-11.0)
[2017-04-18 05:48] LABS: Platelet Count 84 K/mm3 (140-440)
[2017-04-18 06:03] LABS: INR 5.76 (0.87-1.13)
[2017-04-18 06:09] LABS: BUN/Creatinine Ratio 13.9; Calcium 8.2 mg/dL (8.4-10.2); Chloride 92.1 mmol/L (98-107); Potassium 4.7 mmol/L (3.6-5.0)
--- NOTE | 2017-04-18 08:21 | Progress Note ---
Assessment and Plan Assessment: * Nonoliguric acute kidney injury secondary to ATN vs Vanco toxicity - dialysis dependent * Cardiomyopathy - EF 40% * Atrial fibrillation * Alcohol abuse * Aspiration PNA * LLE DVT * Supratherapeutic INR Plan: * Hold HD today - patient w/ 1.3 liter UOP documented over past 24h * Reassess need for HD tomorrow am. Monitor for evidence of recovery * AM labs * Anticoagulation per primaty team * Strict I/O * Avoid potential nephrotoxins * Dose medication for renal function Subjective Date of service: 04/18/17 Principal diagnosis: afib, EtOH abuse, morbid obesity, respiratory failure status post extubatio Interval history: Patient has no complaints today. Objective - Vital Signs Vital signs: Vital Signs - 12hr 04/17/17 04/17/17 04/17/17 20:30 20:33 20:42 Temperature Pulse Rate Pulse Rate [ 66 Anterior Bilateral Throughout] Pulse Rate [ Apical] Pulse Rate [ From Monitor] Pulse Rate [ Left Dorsalis Pedis] Pulse Rate [ Left Popliteal] Pulse Rate [ Left Radial] Pulse Rate [ Right Dorsalis Pedis] Pulse Rate [ Right Popliteal ] Pulse Rate [ Right Radial] Respiratory 20 Rate Respiratory 16 Rate [Anterior Bilateral Throughout] Blood Pressure Blood Pressure [Left Arm] O2 Sat by Pulse 93 Oximetry 04/17/17 04/17/17 04/17/17 20:44 21:15 21:58 Temperature 98.4 F Pulse Rate 61 Pulse Rate [ 67 Anterior Bilateral Throughout] Pulse Rate [ 70 Apical] Pulse Rate [ 70 From Monitor] Pulse Rate [ 70 Left Dorsalis Pedis] Pulse Rate [ 70 Left Popliteal] Pulse Rate [ 70 Left Radial] Pulse Rate [ 70 Right Dorsalis Pedis] Pulse Rate [ 70 Right Popliteal ] Pulse Rate [ 70 Right Radial] Respiratory 20 Rate Respiratory 18 Rate [Anterior Bilateral Throughout] Blood Pressure 88/54 Blood Pressure 88/65 [Left Arm] O2 Sat by Pulse 98 Oximetry 04/18/17 04/18/17 04/18/17 00:55 02:48 05:50 Temperature 98.5 F 98.5 F Pulse Rate 72 Pulse Rate [ Anterior Bilateral Throughout] Pulse Rate [ 67 84 Apical] Pulse Rate [ 67 84 From Monitor] Pulse Rate [ 67 84 Left Dorsalis Pedis] Pulse Rate [ 67 84 Left Popliteal] Pulse Rate [ 67 84 Left Radial] Pulse Rate [ 67 84 Right Dorsalis Pedis] Pulse Rate [ 67 84 Right Popliteal ] Pulse Rate [ 67 84 Right Radial] Respiratory 18 18 Rate Respiratory Rate [Anterior Bilateral Throughout] Blood Pressure 90/56 Blood Pressure 87/57 115/60 [Left Arm] O2 Sat by Pulse 95 98 Oximetry 04/18/17 06:51 Temperature Pulse Rate 68 Pulse Rate [ Anterior Bilateral Throughout] Pulse Rate [ Apical] Pulse Rate [ From Monitor] Pulse Rate [ Left Dorsalis Pedis] Pulse Rate [ Left Popliteal] Pulse Rate [ Left Radial] Pulse Rate [ Right Dorsalis Pedis] Pulse Rate [ Right Popliteal ] Pulse Rate [ Right Radial] Respiratory Rate Respiratory Rate [Anterior Bilateral Throughout] Blood Pressure 102/63 Blood Pressure [Left Arm] O2 Sat by Pulse Oximetry - General Appearance General appearance: well-developed, well-nourished EENT: ATNC Respiratory: Present: Decreased Breath Sounds Cardiology: regular, S1S2 Gastrointestinal: normal, no tenderness, no distended Integumentary: no rash Musculoskeletal: other (2+ LE edema) Psychiatric: cooperative - Lab 04/18/17 05:30 04/18/17 05:30 Most recent lab results Calcium 8.2 mg/dL (8.4-10.2) L 04/18/17 05:30 Phosphorus 4.60 mg/dL (2.5-4.5) H 03/06/17 04:50 Magnesium 1.60 mg/dL (1.7-2.3) L 03/19/17 06:55 Urine Creatinine 86.5 mg/dL (0.1-20.0) H 03/29/17 22:10 Urine Sodium 28 mEq/L 03/29/17 22:10
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
[2017-04-18] MEDS: APRESOLINE PO SCH ×3 (09:21→21:52)
[2017-04-18] MEDS: LOPRESSOR PO SCH ×3 (09:21→21:52)
[2017-04-18] MEDS: PROTONIX PO SCH (09:39)
[2017-04-18] MEDS: FOLVITE PO SCH (09:39)
[2017-04-18] MEDS: VITAMIN B-1 PO SCH (09:39)
[2017-04-18] MEDS: ZESTRIL PO SCH (09:39)
[2017-04-18] MEDS: TYLENOL PO PRN (09:45)
[2017-04-18] MEDS: HALDOL IV PRN (21:52)
[2017-04-18] MEDS: ULTRAM PO PRN (21:52)
[2017-04-19] MEDS: DUONEB *Not for PRN Use IH SCH ×4 (01:50→20:50)
[2017-04-19] MEDS: NOVOLOG SUB-Q SCH ×4 (02:36→17:28)
[2017-04-19] MEDS: CARDIZEM PO SCH ×4 (05:55→23:20)
[2017-04-19 06:53] LABS: Basophils % (Auto) 0.2 % (0.0-1.8); Eosinophils % (Auto) 0.2 % (0.0-4.3); Hematocrit 27.3 % (35.5-45.6); Hemoglobin 8.7 gm/dl (11.8-15.2); Mean Corpuscular HGB Conc 32 % (32-34); Mean Corpuscular Hemoglobin 30 pg (28-32); Mean Corpuscular Volume 94 fl (84-94); Red Blood Count 2.91 M/mm3 (3.65-5.03); Red Cell Distribution Width 15.7 % (13.2-15.2); White Blood Count 14.3 K/mm3 (4.5-11.0)
[2017-04-19 06:55] LABS: Platelet Count 83 K/mm3 (140-440)
[2017-04-19 07:02] LABS: BUN/Creatinine Ratio 13.95; Calcium 8.3 mg/dL (8.4-10.2); Chloride 89.6 mmol/L (98-107); Potassium 4.9 mmol/L (3.6-5.0)
[2017-04-19 07:46] LABS: INR 8.65 (0.87-1.13)
[2017-04-19] MEDS: LOPRESSOR PO SCH ×3 (08:00→23:20)
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
[2017-04-19] MEDS: FOLVITE PO SCH (10:03)
[2017-04-19] MEDS: VITAMIN B-1 PO SCH (10:03)
[2017-04-19] MEDS: APRESOLINE PO SCH ×3 (10:03→23:20)
[2017-04-19] MEDS: ZESTRIL PO SCH (10:04)
[2017-04-19] MEDS: PROTONIX PO SCH (10:04)
--- NOTE | 2017-04-19 16:05 | Progress Note ---
Assessment and Plan Assessment: * Nonoliguric acute kidney injury secondary to ATN vs Vanco toxicity - dialysis dependent * Cardiomyopathy - EF 40% * Atrial fibrillation * Alcohol abuse * Aspiration PNA * LLE DVT * Supratherapeutic INR Plan: * Hold HD today * Trial of Bumex/Albumin * Reassess need for HD tomorrow am. Monitor for evidence of recovery * AM labs * Anticoagulation per primaty team * Strict I/O * Avoid potential nephrotoxins * Dose medication for renal function Subjective Date of service: 04/19/17 Principal diagnosis: afib, EtOH abuse, morbid obesity, respiratory failure status post extubatio Interval history: Patient has no complaints Objective - Vital Signs Vital signs: Vital Signs - 12hr 04/19/17 04/19/17 04/19/17 07:22 07:27 07:32 Temperature Pulse Rate Pulse Rate [ 83 87 Anterior Bilateral Throughout] Pulse Rate [ From Monitor] Respiratory Rate Respiratory 20 20 Rate [Anterior Bilateral Throughout] Blood Pressure Blood Pressure [Left Arm] O2 Sat by Pulse 28 L Oximetry 04/19/17 04/19/17 04/19/17 08:00 09:13 10:00 Temperature 98.1 F Pulse Rate 76 88 Pulse Rate [ Anterior Bilateral Throughout] Pulse Rate [ 74 88 From Monitor] Respiratory 20 20 Rate Respiratory Rate [Anterior Bilateral Throughout] Blood Pressure 102/70 Blood Pressure 104/67 [Left Arm] O2 Sat by Pulse 96 96 Oximetry 04/19/17 04/19/17 04/19/17 10:04 12:00 14:07 Temperature 97.6 F Pulse Rate 80 80 Pulse Rate [ 94 H Anterior Bilateral Throughout] Pulse Rate [ 79 From Monitor] Respiratory 20 Rate Respiratory 18 Rate [Anterior Bilateral Throughout] Blood Pressure 104/72 116/76 Blood Pressure 117/77 [Left Arm] O2 Sat by Pulse 93 Oximetry 04/19/17 04/19/17 14:15 14:17 Temperature Pulse Rate 78 Pulse Rate [ 91 H Anterior Bilateral Throughout] Pulse Rate [ From Monitor] Respiratory Rate Respiratory 18 Rate [Anterior Bilateral Throughout] Blood Pressure 106/74 Blood Pressure [Left Arm] O2 Sat by Pulse Oximetry - General Appearance General appearance: well-developed, well-nourished EENT: ATNC Respiratory: Present: Clear to Ascultation Cardiology: regular, S1S2 Gastrointestinal: normal, no tenderness, no distended Integumentary: no rash Musculoskeletal: other (2+ pedal edema) Psychiatric: cooperative - Lab 04/19/17 06:30 04/19/17 06:30 Most recent lab results Calcium 8.3 mg/dL (8.4-10.2) L 04/19/17 06:30 Phosphorus 4.60 mg/dL (2.5-4.5) H 03/06/17 04:50 Magnesium 1.60 mg/dL (1.7-2.3) L 03/19/17 06:55 Urine Creatinine 86.5 mg/dL (0.1-20.0) H 03/29/17 22:10 Urine Sodium 28 mEq/L 03/29/17 22:10
[2017-04-19] MEDS ORDERED: ALBURX 25% (ALBUMIN) IV ONE (17:00)
[2017-04-19] MEDS ORDERED: BUMEX IV ONE (17:30)
[2017-04-20] MEDS: NOVOLOG SUB-Q SCH ×3 (00:12→11:55)
[2017-04-20] MEDS: DUONEB *Not for PRN Use IH SCH ×4 (02:11→20:01)
[2017-04-20 04:34] LABS: Basophils % (Auto) 0.8 % (0.0-1.8); Eosinophils % (Auto) 0.8 % (0.0-4.3); Hematocrit 24.2 % (35.5-45.6); Mean Corpuscular HGB Conc 33 % (32-34); Mean Corpuscular Hemoglobin 31 pg (28-32); Mean Corpuscular Volume 94 fl (84-94); Red Blood Count 2.59 M/mm3 (3.65-5.03); Red Cell Distribution Width 15.6 % (13.2-15.2); White Blood Count 12.7 K/mm3 (4.5-11.0)
[2017-04-20 04:35] LABS: Platelet Count 84 K/mm3 (140-440)
[2017-04-20 05:01] LABS: INR 8.58 (0.87-1.13)
[2017-04-20 05:04] LABS: BUN/Creatinine Ratio 12.66; Calcium 8.2 mg/dL (8.4-10.2); Chloride 89.3 mmol/L (98-107); Potassium 4.8 mmol/L (3.6-5.0)
[2017-04-20] MEDS: CARDIZEM PO SCH ×2 (05:51→11:54)
[2017-04-20 06:52] LABS: INR 8.34 (0.87-1.13)
--- NOTE | 2017-04-20 08:22 | Progress Note ---
Assessment and Plan Assessment: * Nonoliguric acute kidney injury secondary to ATN vs Vanco toxicity - dialysis dependent * Cardiomyopathy - EF 40% * Atrial fibrillation * Alcohol abuse * Aspiration PNA * LLE DVT * Supratherapeutic INR Plan: * HD today - no evidence of recovery * Anticoagulation per primary team * Strict I/O * Avoid potential nephrotoxins * Dose medication for renal function * Patient is not ESRD as his SCr < 1.0mg/dL in February 2017. Recommend single payer agreement to facilitate discharge Subjective Date of service: 04/20/17 Principal diagnosis: afib, EtOH abuse, morbid obesity, respiratory failure status post extubatio Interval history: Patient has no complaints Objective - Vital Signs Vital signs: Vital Signs - 12hr 04/19/17 04/19/17 04/19/17 20:33 20:44 20:56 Temperature Pulse Rate Pulse Rate [ 93 H 95 H Anterior Bilateral Throughout] Pulse Rate [ From Monitor] Respiratory Rate Respiratory 20 20 Rate [Anterior Bilateral Throughout] Blood Pressure [Left Arm] O2 Sat by Pulse 96 Oximetry 04/19/17 04/20/17 04/20/17 22:00 00:00 04:00 Temperature 98.5 F 98.2 F Pulse Rate 101 H Pulse Rate [ Anterior Bilateral Throughout] Pulse Rate [ 120 H 74 From Monitor] Respiratory 20 21 18 Rate Respiratory Rate [Anterior Bilateral Throughout] Blood Pressure 123/73 91/61 [Left Arm] O2 Sat by Pulse 96 97 Oximetry - General Appearance General appearance: well-developed, well-nourished EENT: ATNC Respiratory: Present: Clear to Ascultation Cardiology: regular, S1S2 Gastrointestinal: no tenderness, no distended Integumentary: no rash Musculoskeletal: other (2+ pedal edema) Psychiatric: cooperative - Lab 04/20/17 04:20 04/20/17 04:20 Most recent lab results Calcium 8.2 mg/dL (8.4-10.2) L 04/20/17 04:20 Phosphorus 4.60 mg/dL (2.5-4.5) H 03/06/17 04:50 Magnesium 1.60 mg/dL (1.7-2.3) L 03/19/17 06:55 Urine Creatinine 86.5 mg/dL (0.1-20.0) H 03/29/17 22:10 Urine Sodium 28 mEq/L 03/29/17 22:10
[2017-04-20] MEDS: LOPRESSOR PO SCH ×4 (08:53→23:08)
[2017-04-20] MEDS: APRESOLINE PO SCH ×3 (08:53→23:17)
[2017-04-20] MEDS: ZESTRIL PO SCH (09:41)
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
[2017-04-20] MEDS: PROTONIX PO SCH (10:10)
[2017-04-20] MEDS: FOLVITE PO SCH (10:10)
[2017-04-20] MEDS: VITAMIN B-1 PO SCH (10:10)
[2017-04-20] MEDS ORDERED: VITAMIN K *ORAL LIQUID PO ONE (11:00)
[2017-04-20] MEDS: TYLENOL PO PRN (15:52)
[2017-04-21] MEDS: CARDIZEM PO SCH ×3 (00:58→20:39)
[2017-04-21] MEDS: NOVOLOG SUB-Q SCH ×4 (01:04→13:27)
[2017-04-21] MEDS: DUONEB *Not for PRN Use IH SCH ×4 (01:54→20:05)
[2017-04-21 08:57] LABS: Basophils % (Auto) 0.4 % (0.0-1.8); Hematocrit 27.7 % (35.5-45.6); Mean Corpuscular HGB Conc 33 % (32-34); Mean Corpuscular Hemoglobin 31 pg (28-32); Mean Corpuscular Volume 94 fl (84-94); Red Blood Count 2.94 M/mm3 (3.65-5.03); White Blood Count 11.4 K/mm3 (4.5-11.0)
[2017-04-21] MEDS: APRESOLINE PO SCH ×3 (09:05→22:07)
[2017-04-21] MEDS: LOPRESSOR PO SCH ×3 (09:06→22:08)
[2017-04-21 09:12] LABS: INR 2.8 (0.87-1.13)
[2017-04-21 09:16] LABS: Platelet Count 97 K/mm3 (140-440)
[2017-04-21 09:17] LABS: BUN/Creatinine Ratio 10.55; Chloride 93.9 mmol/L (98-107)
[2017-04-21] MEDS: PROTONIX PO SCH (09:37)
[2017-04-21] MEDS: FOLVITE PO SCH (09:37)
[2017-04-21] MEDS: VITAMIN B-1 PO SCH (09:37)
[2017-04-21] MEDS: ZESTRIL PO SCH (09:38)
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
--- NOTE | 2017-04-21 10:26 | Progress Note ---
Subjective Principal diagnosis: afib, EtOH abuse, morbid obesity, respiratory failure status post extubatio Interval history: Patient was seen today for follow-up on multiple renal related issues Events noted, currently on lisinopril with acute renal failure No acute distress Vitals labs intake output medications reviewed Social history: Reviewed Family history: Reviewed Physical examination Vitals: Reviewed HEENT: Oral mucosa moist Neck: Supple no JVD Chest: Clear to auscultation no crackles Heart: Regular rate and rhythm S1 and S2 heard Abdomen: Soft nontender bowel sounds present Extremity: Mild edema dry skin Dermatology; dry skin Psychiatry: No evidence of agitation or aggression Assessment and plan; Acute kidney injury in a patient who has been dialysis dependent Monitor renal function recovery Current hemoglobin 9.0 INR 2.8 creatinine is currently 3.6 potassium 4.0 calcium 8.0 Discontinue RHONDA inhibitor is due to acute renal failure potential for recovery Patient's urine output currently fluctuates/March ultrasonogram showed normal- appearing kidney with nonobstructive stone Judicious ultrafiltration with hemodialysis avoidance of hypotension Monitor daily labs when urine output is over 1200 Will do a 24-hour urine for creatinine as well as creatinine clearance Mild tachycardia blood pressure is well-controlled he is currently on Cardizem Encephalopathy multifactorial slowly improving sleep toxic metabolic Multiple other comorbidities including alcohol abuse, uncontrolled diabetes, hypertension, atrial fibrillation, congestive heart failure ejection fraction 4045% March 2015 Renal prognosis remains guarded at this time Periodically monitor renal related labs We'll continue to follow and make recommendation from renal standpoin Objective - Vital Signs Vital signs: Vital Signs - 12hr 04/21/17 04/21/17 04/21/17 00:00 00:58 01:54 Temperature 99.9 F H Pulse Rate 108 H Pulse Rate [ 103 H Anterior Bilateral Throughout] Pulse Rate [ 20 L Apical] Pulse Rate [ 109 H From Monitor] Pulse Rate [ Left Radial] Pulse Rate [ Right Radial] Respiratory 20 Rate Respiratory 18 Rate [Anterior Bilateral Throughout] Blood Pressure 119/62 Blood Pressure 117/58 [Left Arm] O2 Sat by Pulse 98 Oximetry 04/21/17 04/21/17 04/21/17 02:04 04:05 06:20 Temperature Pulse Rate 105 H 129 H Pulse Rate [ 98 H Anterior Bilateral Throughout] Pulse Rate [ Apical] Pulse Rate [ From Monitor] Pulse Rate [ Left Radial] Pulse Rate [ Right Radial] Respiratory Rate Respiratory 18 Rate [Anterior Bilateral Throughout] Blood Pressure 118/77 Blood Pressure [Left Arm] O2 Sat by Pulse Oximetry 04/21/17 04/21/17 06:56 08:06 Temperature 98.7 F 98.7 F Pulse Rate Pulse Rate [ Anterior Bilateral Throughout] Pulse Rate [ 0 L 120 H Apical] Pulse Rate [ 0 L 120 H From Monitor] Pulse Rate [ 129 H 120 H Left Radial] Pulse Rate [ 0 L 120 H Right Radial] Respiratory 20 20 Rate Respiratory Rate [Anterior Bilateral Throughout] Blood Pressure Blood Pressure 118/77 122/91 [Left Arm] O2 Sat by Pulse 97 96 Oximetry - Lab 04/21/17 08:45 04/21/17 08:45 Most recent lab results Calcium 8.0 mg/dL (8.4-10.2) L 04/21/17 08:45 Phosphorus 4.60 mg/dL (2.5-4.5) H 03/06/17 04:50 Magnesium 1.60 mg/dL (1.7-2.3) L 03/19/17 06:55 Urine Creatinine 86.5 mg/dL (0.1-20.0) H 03/29/17 22:10 Urine Sodium 28 mEq/L 03/29/17 22:10
[2017-04-21] MEDS: CARDIZEM CD PO SCH (12:30)
[2017-04-21] MEDS: COUMADIN PO SCH (17:00)
[2017-04-21] MEDS ORDERED: PROVENTIL IH PRN (19:40)
[2017-04-21] MEDS: ULTRAM PO PRN (23:55)
[2017-04-22] MEDS: DUONEB *Not for PRN Use IH SCH ×4 (06:02→20:36)
[2017-04-22 06:18] LABS: Basophils % (Auto) 0.5 % (0.0-1.8); Eosinophils % (Auto) 1.5 % (0.0-4.3); Hematocrit 25.1 % (35.5-45.6); Hemoglobin 8.1 gm/dl (11.8-15.2); Mean Corpuscular HGB Conc 32 % (32-34); Mean Corpuscular Hemoglobin 30 pg (28-32); Mean Corpuscular Volume 92 fl (84-94); Red Blood Count 2.73 M/mm3 (3.65-5.03); Red Cell Distribution Width 15.7 % (13.2-15.2); White Blood Count 13.3 K/mm3 (4.5-11.0)
[2017-04-22 06:21] LABS: Platelet Count 98 K/mm3 (140-440)
[2017-04-22 06:27] LABS: BUN/Creatinine Ratio 10.71; Calcium 7.9 mg/dL (8.4-10.2); Chloride 92.2 mmol/L (98-107); Potassium 3.9 mmol/L (3.6-5.0)
[2017-04-22 06:30] LABS: INR 2.25 (0.87-1.13)
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
[2017-04-22] MEDS: LOPRESSOR PO SCH ×3 (08:50→22:08)
[2017-04-22] MEDS: APRESOLINE PO SCH ×3 (08:50→22:08)
[2017-04-22] MEDS: CARDIZEM CD PO SCH (09:29)
[2017-04-22] MEDS: FOLVITE PO SCH (09:29)
[2017-04-22] MEDS: VITAMIN B-1 PO SCH (09:29)
[2017-04-22] MEDS: PROTONIX PO SCH (09:30)
--- NOTE | 2017-04-22 10:00 | Progress Note ---
Subjective Principal diagnosis: afib, EtOH abuse, morbid obesity, respiratory failure status post extubatio Interval history: Patient was seen today for follow-up on multiple renal related issues Events noted, currently on lisinopril with acute renal failure Urine out put better , more alert awake No acute distress Vitals labs intake output medications reviewed Social history: Reviewed Family history: Reviewed Physical examination Vitals: Reviewed HEENT: Oral mucosa moist Neck: Supple no JVD Chest: Clear to auscultation no crackles Heart: Regular rate and rhythm S1 and S2 heard Abdomen: Soft nontender bowel sounds present Extremity: Mild edema dry skin Dermatology; dry skin Psychiatry: No evidence of agitation or aggression Assessment and plan; Acute kidney injury in a patient who has been dialysis dependent Monitor renal function recovery, urine out put better Follow labs , no RHONDA ARB HCTZ in his case Patient's urine output currently fluctuates/March ultrasonogram showed normal- appearing kidney with nonobstructive stone Judicious ultrafiltration with hemodialysis avoidance of hypotension Monitor daily labs when urine output is over 1200 will do a 24-hour urine for creatinine as well as creatinine clearance Mild tachycardia blood pressure is well-controlled he is currently on Cardizem Encephalopathy multifactorial slowly improving sleep toxic metabolic better Multiple other comorbidities including alcohol abuse, uncontrolled diabetes, hypertension, atrial fibrillation, congestive heart failure ejection fraction 4045% March 2015 Renal prognosis remains guarded at this time Periodically monitor renal related labs We'll continue to follow and make recommendation from renal standpoin Objective - Vital Signs Vital signs: Vital Signs - 12hr 04/21/17 04/22/17 04/22/17 22:08 00:00 05:50 Temperature 98.6 F Pulse Rate Pulse Rate [ 93 H Anterior Bilateral Throughout] Pulse Rate [ 89 From Monitor] Respiratory 24 Rate Respiratory 20 Rate [Anterior Bilateral Throughout] Blood Pressure 109/66 Blood Pressure 133/68 [Left Arm] O2 Sat by Pulse 96 Oximetry 04/22/17 04/22/17 04/22/17 05:57 06:02 06:11 Temperature Pulse Rate Pulse Rate [ 88 96 H 92 H Anterior Bilateral Throughout] Pulse Rate [ From Monitor] Respiratory Rate Respiratory 18 18 18 Rate [Anterior Bilateral Throughout] Blood Pressure Blood Pressure [Left Arm] O2 Sat by Pulse Oximetry 04/22/17 04/22/17 04/22/17 06:15 07:30 08:27 Temperature 99.7 F H Pulse Rate 98 H Pulse Rate [ Anterior Bilateral Throughout] Pulse Rate [ 116 H From Monitor] Respiratory 18 22 Rate Respiratory Rate [Anterior Bilateral Throughout] Blood Pressure Blood Pressure 110/73 [Left Arm] O2 Sat by Pulse 97 92 93 Oximetry 04/22/17 04/22/17 08:50 09:29 Temperature Pulse Rate 106 H 102 H Pulse Rate [ Anterior Bilateral Throughout] Pulse Rate [ From Monitor] Respiratory Rate Respiratory Rate [Anterior Bilateral Throughout] Blood Pressure 123/72 Blood Pressure [Left Arm] O2 Sat by Pulse Oximetry - Lab 04/22/17 06:00 04/22/17 06:00 Most recent lab results Calcium 7.9 mg/dL (8.4-10.2) L 04/22/17 06:00 Phosphorus 4.60 mg/dL (2.5-4.5) H 03/06/17 04:50 Magnesium 1.60 mg/dL (1.7-2.3) L 03/19/17 06:55 Urine Creatinine 86.5 mg/dL (0.1-20.0) H 03/29/17 22:10 Urine Sodium 28 mEq/L 03/29/17 22:10
[2017-04-22] MEDS: HEPARIN IV PRN (17:20)
[2017-04-22] MEDS: COUMADIN PO SCH (20:18)
[2017-04-22] MEDS: ULTRAM PO PRN (22:21)
[2017-04-23 06:37] LABS: Basophils % (Auto) 0.4 % (0.0-1.8); Eosinophils % (Auto) 2.2 % (0.0-4.3); Hematocrit 25.1 % (35.5-45.6); Hemoglobin 8.4 gm/dl (11.8-15.2); Mean Corpuscular HGB Conc 33 % (32-34); Mean Corpuscular Hemoglobin 31 pg (28-32); Mean Corpuscular Volume 91 fl (84-94); Red Blood Count 2.74 M/mm3 (3.65-5.03); Red Cell Distribution Width 16.3 % (13.2-15.2); White Blood Count 12.6 K/mm3 (4.5-11.0)
[2017-04-23 06:49] LABS: INR 2.87 (0.87-1.13)
[2017-04-23 06:53] LABS: Platelet Count 98 K/mm3 (140-440)
[2017-04-23 06:57] LABS: BUN/Creatinine Ratio 9.6; Chloride 96.2 mmol/L (98-107); Potassium 3.6 mmol/L (3.6-5.0)
[2017-04-23] MEDS: DUONEB *Not for PRN Use IH SCH ×3 (07:49→19:46)
[2017-04-23] MEDS: LOPRESSOR PO SCH ×3 (08:47→20:45)
[2017-04-23] MEDS: APRESOLINE PO SCH ×3 (08:47→20:45)
--- NOTE | 2017-04-23 11:43 | Progress Note ---
Subjective Principal diagnosis: afib, EtOH abuse, morbid obesity, respiratory failure status post extubatio Interval history: Patient was seen today for follow-up on multiple renal related issues Events noted, currently on lisinopril with acute renal failure No acute distress His urine output appears to be improving Vitals labs intake output medications reviewed Social history: Reviewed Family history: Reviewed Physical examination Vitals: Reviewed HEENT: Oral mucosa moist Neck: Supple no JVD Chest: Clear to auscultation no crackles Heart: Regular rate and rhythm S1 and S2 heard Abdomen: Soft nontender bowel sounds present Extremity: Mild edema dry skin Dermatology; dry skin Psychiatry: No evidence of agitation or aggression Assessment and plan; Acute kidney injury in a patient who has been dialysis dependent, he is currently post dialysis Monitor renal function recovery, his urine output is improving at this time would like to hold off dialysis Provide dialysis only as needed Would not suggest using any form of RHONDA inhibitors angiotensin receptor aracely or medications such as hydrochlorothiazide or non-steroidal drugs Likely will require 24-hour urine for protein creatinine as well as creatinine clearance Patient's urine output currently /March ultrasonogram showed normal- appearing kidney with nonobstructive stone Judicious ultrafiltration with hemodialysis avoidance of hypotension Mild tachycardia blood pressure is well-controlled he is currently on Cardizem Encephalopathy multifactorial slowly improving sleep toxic metabolic Multiple other comorbidities including alcohol abuse, uncontrolled diabetes, hypertension, atrial fibrillation, congestive heart failure ejection fraction 40 -45% March 2015 Renal prognosis remains guarded at this time Periodically monitor renal related labs We'll continue to follow and make recommendation from renal standpoin Objective - Vital Signs Vital signs: Vital Signs - 12hr 04/23/17 04/23/17 04/23/17 04:00 07:50 07:52 Temperature 99 F Pulse Rate [ 87 Anterior Bilateral Throughout] Pulse Rate [ 86 Left Popliteal] Respiratory 21 Rate Respiratory 18 Rate [Anterior Bilateral Throughout] Blood Pressure Blood Pressure 112/75 [Right Arm] O2 Sat by Pulse 97 Oximetry 04/23/17 04/23/17 04/23/17 08:00 08:15 08:47 Temperature 98.6 F Pulse Rate [ 89 Anterior Bilateral Throughout] Pulse Rate [ Left Popliteal] Respiratory 102 H Rate Respiratory 18 Rate [Anterior Bilateral Throughout] Blood Pressure 116/75 Blood Pressure 116/75 [Right Arm] O2 Sat by Pulse 97 Oximetry - Lab 04/23/17 06:15 04/23/17 06:15 Most recent lab results Calcium 8.0 mg/dL (8.4-10.2) L 04/23/17 06:15 Phosphorus 4.60 mg/dL (2.5-4.5) H 03/06/17 04:50 Magnesium 1.60 mg/dL (1.7-2.3) L 03/19/17 06:55 Urine Creatinine 86.5 mg/dL (0.1-20.0) H 03/29/17 22:10 Urine Sodium 28 mEq/L 03/29/17 22:10
[2017-04-23] MEDS: VITAMIN B-1 PO SCH (12:21)
[2017-04-23] MEDS: CARDIZEM CD PO SCH (12:21)
[2017-04-23] MEDS: FOLVITE PO SCH (12:22)
[2017-04-23] MEDS ORDERED: COUMADIN PO SCH (17:00)
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
[2017-04-23] MEDS: PROTONIX PO SCH (18:27)
[2017-04-24 07:13] LABS: Basophils % (Auto) 0.8 % (0.0-1.8); Eosinophils % (Auto) 3.6 % (0.0-4.3); Hematocrit 24.4 % (35.5-45.6); Mean Corpuscular HGB Conc 33 % (32-34); Mean Corpuscular Hemoglobin 30 pg (28-32); Mean Corpuscular Volume 92 fl (84-94); Red Blood Count 2.65 M/mm3 (3.65-5.03); Red Cell Distribution Width 16.2 % (13.2-15.2); White Blood Count 7.7 K/mm3 (4.5-11.0)
[2017-04-24 07:16] LABS: Platelet Count 82 K/mm3 (140-440)
[2017-04-24 07:25] LABS: INR 3.56 (0.87-1.13)
[2017-04-24 07:27] LABS: BUN/Creatinine Ratio 11.33; Calcium 7.9 mg/dL (8.4-10.2); Chloride 94.2 mmol/L (98-107); Potassium 3.7 mmol/L (3.6-5.0)
[2017-04-24] MEDS: DUONEB *Not for PRN Use IH SCH ×3 (08:11→19:35)
[2017-04-24] MEDS: APRESOLINE PO SCH ×3 (10:16→20:50)
[2017-04-24] MEDS: LOPRESSOR PO SCH ×3 (10:16→20:49)
[2017-04-24] MEDS: FOLVITE PO SCH (10:17)
[2017-04-24] MEDS: VITAMIN B-1 PO SCH (10:17)
--- NOTE | 2017-04-24 10:23 | Progress Note ---
Subjective Principal diagnosis: afib, EtOH abuse, morbid obesity, respiratory failure status post extubatio Interval history: Patient was seen today for follow-up on multiple renal related issues Has been taken off lisinopril his urine output has markedly improved Dialysis has been put on hold for now He does have some generalized swelling Vitals labs intake output medications reviewed Social history: Reviewed Family history: Reviewed Physical examination Vitals: Reviewed HEENT: Oral mucosa moist Neck: Supple no JVD Chest: Clear to auscultation no crackles Heart: Regular rate and rhythm S1 and S2 heard Abdomen: Soft nontender bowel sounds present Extremity: 1+ generalized edema dry skin Dermatology; dry skin Psychiatry: No evidence of agitation or aggression Assessment and plan; Acute kidney injury, patient was dialysis dependent and currently put on hold Urine output is markedly improving consider diuresis and fluid restriction sodium restriction Was also on a centimeters and hydrochlorothiazide which has been discontinued avoid such drugs At some point do a 24-hour urine for creatinine as well as creatinine clearance If overall stable and creatinine clearance is over 25 dialysis can be safely discontinued at that point dialysis catheter could be taken out Patient's urine output currently fluctu/March ultrasonogram showed normal- appearing kidney with nonobstructive stone Judicious ultrafiltration with hemodialysis avoidance of hypotension Mild tachycardia blood pressure is well-controlled he is currently on Cardizem Encephalopathy multifactorial slowly improving sleep toxic metabolic Multiple other comorbidities including alcohol abuse, uncontrolled diabetes, hypertension, atrial fibrillation, congestive heart failure ejection fraction 40 -45% March 2015 Renal prognosis remains guarded at this time Periodically monitor renal related labs We'll continue to follow and make recommendation from renal standpoin Objective - Vital Signs Vital signs: Vital Signs - 12hr 04/24/17 04/24/17 04/24/17 00:00 02:34 04:00 Temperature 99.1 F 98.5 F Pulse Rate [ Anterior Bilateral Throughout] Pulse Rate [ 92 H 98 H From Monitor] Pulse Rate [ 92 H 98 H Left Popliteal] Respiratory 18 20 20 Rate Respiratory Rate [Anterior Bilateral Throughout] Blood Pressure Blood Pressure 102/63 110/76 [Right Arm] O2 Sat by Pulse 98 98 Oximetry 04/24/17 04/24/17 04/24/17 07:50 08:00 08:58 Temperature Pulse Rate [ 98 H 98 H Anterior Bilateral Throughout] Pulse Rate [ From Monitor] Pulse Rate [ Left Popliteal] Respiratory Rate Respiratory 18 18 Rate [Anterior Bilateral Throughout] Blood Pressure Blood Pressure [Right Arm] O2 Sat by Pulse 98 Oximetry 04/24/17 10:16 Temperature Pulse Rate [ Anterior Bilateral Throughout] Pulse Rate [ From Monitor] Pulse Rate [ Left Popliteal] Respiratory Rate Respiratory Rate [Anterior Bilateral Throughout] Blood Pressure 105/72 Blood Pressure [Right Arm] O2 Sat by Pulse Oximetry - Lab 04/24/17 06:50 04/24/17 06:50 Most recent lab results Calcium 7.9 mg/dL (8.4-10.2) L 04/24/17 06:50 Phosphorus 4.60 mg/dL (2.5-4.5) H 03/06/17 04:50 Magnesium 1.60 mg/dL (1.7-2.3) L 03/19/17 06:55 Urine Creatinine 86.5 mg/dL (0.1-20.0) H 03/29/17 22:10 Urine Sodium 28 mEq/L 03/29/17 22:10
[2017-04-24] MEDS: CARDIZEM CD PO SCH (10:27)
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
[2017-04-24] MEDS ORDERED: COUMADIN NO DOSE TODAY PO ONE (17:00)
[2017-04-24] MEDS: ULTRAM PO PRN (20:49)
[2017-04-25 07:27] LABS: INR 3.35 (0.87-1.13)
[2017-04-25] MEDS: DUONEB *Not for PRN Use IH SCH ×3 (08:03→19:34)
[2017-04-25] MEDS: LOPRESSOR PO SCH ×3 (08:46→21:59)
[2017-04-25] MEDS: APRESOLINE PO SCH ×3 (08:46→21:59)
--- NOTE | 2017-04-25 08:59 | Progress Note ---
Assessment and Plan - Patient Problems (1) KATHRIN (acute kidney injury) Current Visit: Yes Status: Acute Plan to address problem: Non oliguric--hold off dialysis and monitor. Avoid nephrotoxic agents (2) Cardiomyopathy Current Visit: Yes Status: Chronic Qualifiers: Cardiomyopathy type: C (3) Deep vein thrombosis (DVT) Current Visit: Yes Status: Acute Qualifiers: DVT location: lower extremity Affected thrombotic vein of extremity: A Chronicity: C Laterality: left (4) Acute respiratory failure Current Visit: Yes Status: Resolved Qualifiers: Respiratory failure complication: hypoxia Qualified Code(s): J96.01 - Acute respiratory failure with hypoxia (5) Anemia Current Visit: Yes Status: Chronic Qualifiers: Anemia type: A Iron deficiency anemia type: I Vitamin B12 deficiency anemia type: V Folate deficiency anemia type: F Bone marrow failure anemia type: B Hemolytic anemia type: H Other causes of anemia: O Chronic kidney disease stage: C (6) Thrombocytopenia Current Visit: No Status: Acute (7) Encephalopathy Current Visit: Yes Status: Resolved Subjective Date of service: 04/25/17 Principal diagnosis: afib, EtOH abuse, morbid obesity, respiratory failure status post extubatio Interval history: pt is alert, denies CP or SOB. Moving right leg-pt says that he does it when anxious Objective - Vital Signs Vital signs: Vital Signs - 12hr 04/24/17 04/24/17 04/25/17 21:49 22:00 00:00 Temperature 98.7 F Pulse Rate [ Anterior Bilateral Throughout] Pulse Rate [ 89 From Monitor] Pulse Rate [ Left Dorsalis Pedis] Pulse Rate [ 89 Left Popliteal] Pulse Rate [ Right Dorsalis Pedis] Respiratory 20 20 16 Rate Respiratory Rate [Anterior Bilateral Throughout] Blood Pressure 101/60 [Right Arm] O2 Sat by Pulse 95 Oximetry 04/25/17 04/25/17 04/25/17 04:00 07:55 08:04 Temperature 98.0 F Pulse Rate [ 86 77 Anterior Bilateral Throughout] Pulse Rate [ 86 From Monitor] Pulse Rate [ 86 Left Dorsalis Pedis] Pulse Rate [ 86 Left Popliteal] Pulse Rate [ 86 Right Dorsalis Pedis] Respiratory 16 Rate Respiratory 18 18 Rate [Anterior Bilateral Throughout] Blood Pressure 119/75 [Right Arm] O2 Sat by Pulse 96 97 Oximetry - General Appearance General appearance: well-developed EENT: mucous membranes moist Neck: no JVD Respiratory: Present: Clear to Ascultation Cardiology: irregular Gastrointestinal: normoactive bowel sounds Neurologic: alert and oriented x3 Musculoskeletal: other (1+edema) Psychiatric: mood/affect appropriate, cooperative - Lab 04/24/17 06:50 04/24/17 06:50 Most recent lab results Calcium 7.9 mg/dL (8.4-10.2) L 04/24/17 06:50 Phosphorus 4.60 mg/dL (2.5-4.5) H 03/06/17 04:50 Magnesium 1.60 mg/dL (1.7-2.3) L 03/19/17 06:55 Urine Creatinine 86.5 mg/dL (0.1-20.0) H 03/29/17 22:10 Urine Sodium 28 mEq/L 03/29/17 22:10
[2017-04-25] MEDS: CARDIZEM CD PO SCH (11:01)
[2017-04-25] MEDS: VITAMIN B-1 PO SCH (11:01)
[2017-04-25] MEDS: FOLVITE PO SCH (11:02)
[2017-04-25] MEDS ORDERED: COUMADIN NO DOSE TODAY PO ONE (17:00)
[2017-04-25] MEDS: ULTRAM PO PRN (21:58)
[2017-04-25] MEDS: LASIX PO SCH (22:00)
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
[2017-04-26] MEDS: DUONEB *Not for PRN Use IH SCH ×3 (09:05→20:06)
[2017-04-26] MEDS: LOPRESSOR PO SCH ×3 (09:15→21:13)
[2017-04-26] MEDS: FOLVITE PO SCH (09:16)
[2017-04-26] MEDS: APRESOLINE PO SCH ×3 (09:16→21:13)
[2017-04-26] MEDS: LASIX PO SCH (09:16)
[2017-04-26] MEDS: CARDIZEM CD PO SCH (09:16)
--- NOTE | 2017-04-26 09:18 | Progress Note ---
Assessment and Plan - Patient Problems (1) KATHRIN (acute kidney injury) Current Visit: Yes Status: Acute Plan to address problem: Non oliguric--Scr-3.0--3.6. Monitor off dialysis. Avoid nephrotoxic agents. Urine output-1000ml in last shift. S/P Acute respiratory failure/extubation, A.fib with RVR-now rate controlled, DVT-on anticoagulation, possible aspiration pneumonitis. Pt has peripheral edema- maintain on present diuretic. (2) Cardiomyopathy Current Visit: Yes Status: Chronic Qualifiers: Cardiomyopathy type: C (3) Deep vein thrombosis (DVT) Current Visit: Yes Status: Acute Qualifiers: DVT location: lower extremity Affected thrombotic vein of extremity: A Chronicity: C Laterality: left (4) Acute respiratory failure Current Visit: Yes Status: Resolved Qualifiers: Respiratory failure complication: hypoxia Qualified Code(s): J96.01 - Acute respiratory failure with hypoxia (5) Anemia Current Visit: Yes Status: Chronic Qualifiers: Anemia type: A Iron deficiency anemia type: I Vitamin B12 deficiency anemia type: V Folate deficiency anemia type: F Bone marrow failure anemia type: B Hemolytic anemia type: H Other causes of anemia: O Chronic kidney disease stage: C (6) Thrombocytopenia Current Visit: No Status: Acute (7) Encephalopathy Current Visit: Yes Status: Resolved Subjective Date of service: 04/26/17 Principal diagnosis: afib, EtOH abuse, morbid obesity, respiratory failure status post extubatio Interval history: pt is alert, denies CP , nausea or vomitings. Objective - Vital Signs Vital signs: Vital Signs - 12hr 04/25/17 04/26/17 21:59 00:00 Temperature 98.0 F Pulse Rate 88 Pulse Rate [ 84 From Monitor] Respiratory 22 Rate Blood Pressure 125/71 Blood Pressure 132/66 [Right Arm] O2 Sat by Pulse 99 Oximetry - General Appearance General appearance: well-developed EENT: mucous membranes moist Neck: no JVD Respiratory: Present: Decreased Breath Sounds Cardiology: regular Gastrointestinal: normoactive bowel sounds Neurologic: alert and oriented x3 Musculoskeletal: other (1+ edema) - Lab 04/24/17 06:50 04/26/17 09:05 Most recent lab results Calcium 7.9 mg/dL (8.4-10.2) L 04/24/17 06:50 Phosphorus 4.60 mg/dL (2.5-4.5) H 03/06/17 04:50 Magnesium 1.60 mg/dL (1.7-2.3) L 03/19/17 06:55 Urine Creatinine 86.5 mg/dL (0.1-20.0) H 03/29/17 22:10 Urine Sodium 28 mEq/L 03/29/17 22:10
[2017-04-26 09:53] LABS: Albumin 2.6 g/dL (3.9-5); Albumin/Globulin Ratio 0.7 %; BUN/Creatinine Ratio 13.05; Bilirubin,Total 0.5 mg/dL (0.1-1.2); Calcium 8.4 mg/dL (8.4-10.2); Chloride 95.2 mmol/L (98-107); Potassium 3.8 mmol/L (3.6-5.0); Total Protein 6.2 g/dL (6.3-8.2)
[2017-04-26 09:57] LABS: INR 3.54 (0.87-1.13)
[2017-04-26] MEDS: VITAMIN B-1 PO SCH (10:00)
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
[2017-04-27 06:01] LABS: Hematocrit 22.7 % (35.5-45.6); Hemoglobin 7.5 gm/dl (11.8-15.2); Mean Corpuscular HGB Conc 33 % (32-34); Mean Corpuscular Hemoglobin 30 pg (28-32); Mean Corpuscular Volume 92 fl (84-94); Red Blood Count 2.48 M/mm3 (3.65-5.03); Red Cell Distribution Width 16.3 % (13.2-15.2); White Blood Count 5.5 K/mm3 (4.5-11.0)
[2017-04-27 06:02] LABS: Platelet Count 74 K/mm3 (140-440)
[2017-04-27 06:07] LABS: Bacteria,Urine 2+ /HPF (Negative); Bilirubin,Urine NEG (Negative); Blood,Urine SM (Negative); Ketones,Urine NEG (Negative); Leukocyte Esterase,Urine LG (Negative); Nitrite,Urine NEG (Negative); Protein,Urine <15 mg/dL mg/dL (Negative); Urobilinogen,Urine < 2.0 mg/dL (<2.0)
[2017-04-27 06:11] LABS: INR 2.43 (0.87-1.13)
[2017-04-27 06:18] LABS: WBC,Urine > 182.0 /HPF (0.0-6.0)
[2017-04-27 06:26] LABS: BUN/Creatinine Ratio 15.42; Calcium 8.3 mg/dL (8.4-10.2); Chloride 93.9 mmol/L (98-107); Potassium 3.9 mmol/L (3.6-5.0)
[2017-04-27] MEDS: DUONEB *Not for PRN Use IH SCH ×2 (07:29→21:01)
[2017-04-27] MEDS: APRESOLINE PO SCH ×4 (08:38→20:30)
[2017-04-27] MEDS: LOPRESSOR PO SCH ×3 (08:38→18:01)
--- NOTE | 2017-04-27 09:39 | Progress Note ---
Assessment and Plan Assessment: * Nonoliguric acute kidney injury secondary to ATN vs Vanco toxicity - dialysis dependent * Cardiomyopathy - EF 40% * Anemia * Atrial fibrillation * Alcohol abuse * Aspiration PNA * LLE DVT * Supratherapeutic INR Plan: * HD on hold - UOP improved and SCr is stable * Will obtain 24h urine CrCl - discussed w/ RN to start today * Anticoagulation per primary team * Transfuse pRBC per primary team * Strict I/O * Avoid potential nephrotoxins * Dose medication for renal function * Patient is not ESRD as his SCr < 1.0mg/dL in February 2017 Subjective Date of service: 04/27/17 Principal diagnosis: afib, EtOH abuse, morbid obesity, respiratory failure status post extubatio Interval history: Patient has no complaints today. Objective - Vital Signs Vital signs: Vital Signs - 12hr 04/27/17 04/27/17 04/27/17 00:00 07:29 07:30 Temperature 98 F Pulse Rate [ 88 88 Anterior Bilateral Throughout] Pulse Rate [ 94 H From Monitor] Respiratory 20 Rate Respiratory 17 17 Rate [Anterior Bilateral Throughout] Blood Pressure 101/60 [Right Arm] O2 Sat by Pulse 96 95 Oximetry - General Appearance General appearance: well-developed, well-nourished EENT: ATNC Respiratory: Present: Clear to Ascultation Cardiology: regular, S1S2 Gastrointestinal: no tenderness, no distended, obese Integumentary: no rash Neurologic: alert and oriented x3 Musculoskeletal: other (1+ edema) Psychiatric: cooperative - Lab 04/27/17 05:20 04/27/17 05:20 Most recent lab results Calcium 8.3 mg/dL (8.4-10.2) L 04/27/17 05:20 Phosphorus 4.60 mg/dL (2.5-4.5) H 03/06/17 04:50 Magnesium 1.60 mg/dL (1.7-2.3) L 03/19/17 06:55 Urine Creatinine 86.5 mg/dL (0.1-20.0) H 03/29/17 22:10 Urine Sodium 28 mEq/L 03/29/17 22:10
[2017-04-27] MEDS: VITAMIN B-1 PO SCH (11:11)
[2017-04-27] MEDS: LASIX PO SCH (11:11)
[2017-04-27] MEDS: FOLVITE PO SCH (11:12)
[2017-04-27] MEDS: CARDIZEM CD PO SCH (11:15)
[2017-04-27] MEDS: ULTRAM PO PRN ×2 (12:26→20:33)
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
[2017-04-27] MEDS: COUMADIN PO SCH (18:05)
[2017-04-28] MEDS: HALDOL IV PRN (00:59)
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
[2017-04-28 08:22] LABS: Hematocrit 23.6 % (35.5-45.6); Hemoglobin 7.8 gm/dl (11.8-15.2); Mean Corpuscular HGB Conc 33 % (32-34); Mean Corpuscular Hemoglobin 30 pg (28-32); Mean Corpuscular Volume 91 fl (84-94); Platelet Count 110 K/mm3 (140-440); Red Cell Distribution Width 16.5 % (13.2-15.2); White Blood Count 6.4 K/mm3 (4.5-11.0)
[2017-04-28 08:33] LABS: INR 1.85 (0.87-1.13)
[2017-04-28 08:38] LABS: BUN/Creatinine Ratio 14.85; Calcium 8.4 mg/dL (8.4-10.2); Potassium 3.8 mmol/L (3.6-5.0)
[2017-04-28] MEDS: DUONEB *Not for PRN Use IH SCH ×2 (08:51→19:54)
[2017-04-28] MEDS: FOLVITE PO SCH (12:10)
[2017-04-28] MEDS: CARDIZEM CD PO SCH (12:11)
[2017-04-28] MEDS: LASIX PO SCH (12:11)
[2017-04-28] MEDS: VITAMIN B-1 PO SCH (12:11)
[2017-04-28] MEDS: CEFTIN PO SCH (12:36)
--- NOTE | 2017-04-28 13:07 | Progress Note ---
Assessment and Plan Assessment: * Nonoliguric acute kidney injury secondary to ATN vs Vanco toxicity - * Cardiomyopathy - EF 40% * Anemia * Atrial fibrillation * Alcohol abuse * Aspiration PNA * LLE DVT * Supratherapeutic INR Plan: * HD on hold - UOP improved and SCr is stable * Will follow up 24h urine CrCl * Anticoagulation per primary team * Transfuse pRBC per primary team * Strict I/O * Avoid potential nephrotoxins * Dose medication for renal function * Patient is not ESRD as his SCr < 1.0mg/dL in February 2017 Subjective Date of service: 04/28/17 Principal diagnosis: afib, EtOH abuse, morbid obesity, respiratory failure status post extubatio Interval history: resting in bed, events noted Objective - Exam Narrative Exam: GEN: WDWN, NAD, HEENT: NCAT, PERRL, EOMI, OP CLEAR NECK: SUPPLE, NO THYROMEGALY, NO JVD, NO LAD CVS: irregular irregular, NORMAL S1S2 LUNGS/CHEST: scat rhonchi NORMAL CHEST EXPANSION B, GOOD AIR ENTRY B ABD: SOFT NTND, GBS, NO REBOUND OR GUARDING EXT/SKIN: NO SIGNIFICANT EDEMA OR RASH MSK: FROM X 4 EXTREMITIES NEURO: CN 2-12 GROSSLY INTACT, NO FOCAL DEFICITS - Vital Signs Vital signs: Vital Signs - 12hr 04/28/17 04/28/17 04/28/17 07:40 08:00 08:51 Temperature 98.9 F Pulse Rate [ 103 H Anterior Bilateral Throughout] Pulse Rate [ 95 H From Monitor] Respiratory 18 Rate Respiratory 20 Rate [Anterior Bilateral Throughout] Blood Pressure 118/79 [Right Arm] O2 Sat by Pulse 94 97 98 Oximetry 04/28/17 04/28/17 10:53 12:00 Temperature 98.8 F Pulse Rate [ 109 H Anterior Bilateral Throughout] Pulse Rate [ 113 H From Monitor] Respiratory 16 Rate Respiratory 20 Rate [Anterior Bilateral Throughout] Blood Pressure 147/70 [Right Arm] O2 Sat by Pulse Oximetry - Lab 04/28/17 Unknown 04/28/17 Unknown Most recent lab results Calcium 8.4 mg/dL (8.4-10.2) 04/28/17 Unknown Phosphorus 4.60 mg/dL (2.5-4.5) H 03/06/17 04:50 Magnesium 1.60 mg/dL (1.7-2.3) L 03/19/17 06:55 Urine Creatinine 40.8 mg/dL (0.1-20.0) H 04/27/17 23:32 Urine Sodium 28 mEq/L 03/29/17 22:10
[2017-04-28] MEDS: COUMADIN PO SCH (18:34)
[2017-04-29 08:06] LABS: INR 2.35 (0.87-1.13)
[2017-04-29 08:12] LABS: BUN/Creatinine Ratio 15.16; Calcium 7.9 mg/dL (8.4-10.2); Chloride 93.4 mmol/L (98-107); Potassium 3.8 mmol/L (3.6-5.0)
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
[2017-04-29] MEDS: DUONEB *Not for PRN Use IH SCH ×2 (09:44→19:45)
[2017-04-29] MEDS: FOLVITE PO SCH (11:36)
[2017-04-29] MEDS: LASIX PO SCH (11:36)
[2017-04-29] MEDS: VITAMIN B-1 PO SCH (11:36)
[2017-04-29] MEDS: ULTRAM PO PRN ×2 (11:37→22:20)
[2017-04-29] MEDS: CARDIZEM CD PO SCH (11:42)
[2017-04-29] MEDS: CEFTIN PO SCH (16:50)
[2017-04-29] MEDS ORDERED: COUMADIN PO SCH (17:00)
[2017-04-29] MEDS: HALDOL IV PRN (22:20)
[2017-04-30 06:52] LABS: Hemoglobin 7.3 gm/dl (11.8-15.2); Mean Corpuscular HGB Conc 33 % (32-34); Mean Corpuscular Hemoglobin 30 pg (28-32); Mean Corpuscular Volume 90 fl (84-94); Platelet Count 171 K/mm3 (140-440); Red Blood Count 2.45 M/mm3 (3.65-5.03); Red Cell Distribution Width 16.1 % (13.2-15.2); White Blood Count 6.8 K/mm3 (4.5-11.0)
[2017-04-30 07:04] LABS: INR 1.8 (0.87-1.13)
[2017-04-30 07:11] LABS: BUN/Creatinine Ratio 15.92; Chloride 96.9 mmol/L (98-107); Potassium 3.6 mmol/L (3.6-5.0)
[2017-04-30] MEDS: DUONEB *Not for PRN Use IH SCH ×2 (07:50→19:46)
[2017-04-30] MEDS ORDERED: LOPRESSOR PO ONE (08:12)
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
[2017-04-30] MEDS: CEFTIN PO SCH (09:38)
[2017-04-30] MEDS: CARDIZEM CD PO SCH (09:39)
[2017-04-30] MEDS: FOLVITE PO SCH (09:39)
[2017-04-30] MEDS: ULTRAM PO PRN ×2 (09:40→23:17)
[2017-04-30] MEDS: VITAMIN B-1 PO SCH (09:40)
[2017-04-30] MEDS: LASIX PO SCH (09:41)
[2017-04-30] MEDS ORDERED: COUMADIN PO SCH (17:00)
[2017-04-30] MEDS: HALDOL IV PRN (21:00)
[2017-05-01] MEDS: HALDOL IV PRN (05:51)
[2017-05-01 06:53] LABS: Hemoglobin 7.3 gm/dl (11.8-15.2); Mean Corpuscular HGB Conc 33 % (32-34); Mean Corpuscular Hemoglobin 30 pg (28-32); Mean Corpuscular Volume 90 fl (84-94); Platelet Count 211 K/mm3 (140-440); Red Blood Count 2.45 M/mm3 (3.65-5.03); Red Cell Distribution Width 16.5 % (13.2-15.2); White Blood Count 12.9 K/mm3 (4.5-11.0)
[2017-05-01 07:03] LABS: BUN/Creatinine Ratio 16.25; Calcium 7.9 mg/dL (8.4-10.2); Chloride 90.2 mmol/L (98-107)
[2017-05-01 07:05] LABS: INR 1.76 (0.87-1.13)
[2017-05-01] MEDS: DUONEB *Not for PRN Use IH SCH ×2 (08:35→19:33)
--- NOTE | 2017-05-01 10:09 | XRay Report ---
AP CHEST: HISTORY: Shortness of breath The patient has been extubated since 04/04/17. A right IJ venous catheter and right arm PICC remain in adequate position. Mild pulmonary venous congestion and small pleural effusions resolved. The lungs are generally clear other than minor segmental atelectasis in the right midlung. Heart size is at the upper limits of normal. No acute process is noted. IMPRESSION: No acute cardiopulmonary process appreciated. Congestive changes have resolved or nearly resolved since 04/04/17.
[2017-05-01] MEDS: VITAMIN B-1 PO SCH (10:39)
[2017-05-01] MEDS: LASIX PO SCH (10:40)
[2017-05-01] MEDS: FOLVITE PO SCH (10:40)
[2017-05-01] MEDS: CEFTIN PO SCH (10:40)
[2017-05-01] MEDS: CARDIZEM CD PO SCH (10:40)
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
[2017-05-01] MEDS ORDERED: HALDOL PO PRN (16:42)
[2017-05-01] MEDS ORDERED: HALDOL IM PRN (16:43)
[2017-05-01] MEDS: COUMADIN PO SCH (17:14)
[2017-05-01] MEDS: TOPROL XL PO SCH (17:15)
--- NOTE | 2017-05-02 10:13 | Progress Note ---
Assessment and Plan Assessment: * Nonoliguric acute kidney injury secondary to ATN vs Vanco toxicity - * Cardiomyopathy - EF 40% * Anemia * Atrial fibrillation * Alcohol abuse * Aspiration PNA * LLE DVT * Supratherapeutic INR Plan: * HD on hold - UOP improved and SCr is stable * dc vasc cath today * Will follow up 24h urine CrCl * Anticoagulation per primary team * Transfuse pRBC per primary team * Strict I/O * Avoid potential nephrotoxins * Dose medication for renal function * Patient is not ESRD as his SCr < 1.0mg/dL in February 2017 * ok to dc home on po lasix Subjective Date of service: 05/02/17 Principal diagnosis: afib, EtOH abuse, morbid obesity, respiratory failure status post extubatio Interval history: resting in bed, events noted Objective - Exam Narrative Exam: GEN: WDWN, NAD, HEENT: NCAT, PERRL, EOMI, OP CLEAR NECK: SUPPLE, NO THYROMEGALY, NO JVD, NO LAD CVS: irregular irregular, NORMAL S1S2 LUNGS/CHEST: scat rhonchi NORMAL CHEST EXPANSION B, GOOD AIR ENTRY B ABD: SOFT NTND, GBS, NO REBOUND OR GUARDING EXT/SKIN: NO SIGNIFICANT EDEMA OR RASH MSK: FROM X 4 EXTREMITIES NEURO: CN 2-12 GROSSLY INTACT, NO FOCAL DEFICITS - Vital Signs Vital signs: Vital Signs - 12hr 05/02/17 05/02/17 05/02/17 00:00 04:15 08:43 Temperature 98.7 F 99.1 F 100.0 F H Pulse Rate 96 H Pulse Rate [ 111 H 93 H 108 H From Monitor] Respiratory 20 20 24 Rate Blood Pressure 133/84 117/69 120/90 [Left Arm] O2 Sat by Pulse 97 98 98 Oximetry - Lab 05/01/17 06:30 05/01/17 06:30 Most recent lab results Calcium 7.9 mg/dL (8.4-10.2) L 05/01/17 06:30 Phosphorus 4.60 mg/dL (2.5-4.5) H 03/06/17 04:50 Magnesium 1.60 mg/dL (1.7-2.3) L 03/19/17 06:55 Urine Creatinine 40.8 mg/dL (0.1-20.0) H 04/27/17 23:32 Urine Sodium 28 mEq/L 03/29/17 22:10
[2017-05-02] MEDS: DUONEB *Not for PRN Use IH SCH ×2 (10:18→20:03)
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
[2017-05-02] MEDS: CARDIZEM CD PO SCH (10:26)
[2017-05-02] MEDS: TYLENOL PO PRN (10:26)
[2017-05-02] MEDS: LASIX PO SCH (10:26)
[2017-05-02] MEDS: FOLVITE PO SCH (10:27)
[2017-05-02] MEDS: VITAMIN B-1 PO SCH (10:27)
[2017-05-02] MEDS ORDERED: PROVENTIL IH PRN (10:33)
[2017-05-02] MEDS ORDERED: TRIPLE ANTIBIOTIC TP ONE (11:37)
[2017-05-02 12:30] LABS: Hematocrit 23.9 % (35.5-45.6); Hemoglobin 7.9 gm/dl (11.8-15.2); Mean Corpuscular HGB Conc 33 % (32-34); Mean Corpuscular Hemoglobin 29 pg (28-32); Mean Corpuscular Volume 90 fl (84-94); Platelet Count 226 K/mm3 (140-440); Red Blood Count 2.67 M/mm3 (3.65-5.03); Red Cell Distribution Width 16.7 % (13.2-15.2); White Blood Count 11.1 K/mm3 (4.5-11.0)
[2017-05-02 12:43] LABS: INR 1.79 (0.87-1.13)
[2017-05-02 12:51] LABS: BUN/Creatinine Ratio 14.54; Chloride 93.7 mmol/L (98-107); Potassium 4.6 mmol/L (3.6-5.0)
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
[2017-05-02] MEDS: TOPROL XL PO SCH (17:03)
[2017-05-02] MEDS: COUMADIN PO SCH (17:04)
[2017-05-02] MEDS: ULTRAM PO PRN (22:32)
[2017-05-03 05:53] LABS: INR 1.85 (0.87-1.13)
[2017-05-03] MEDS: DUONEB *Not for PRN Use IH SCH (08:05)
--- NOTE | 2017-05-03 09:01 | Progress Note ---
Assessment and Plan Assessment: * Nonoliguric acute kidney injury secondary to ATN vs Vanco toxicity - * Cardiomyopathy - EF 40% * Anemia * Atrial fibrillation * Alcohol abuse * Aspiration PNA * LLE DVT * Supratherapeutic INR Plan: * SCr is stable * dc'd vasc cath * Anticoagulation per primary team * Transfuse pRBC per primary team * Strict I/O * Avoid potential nephrotoxins * Dose medication for renal function * ok to dc home on po lasix Subjective Date of service: 05/03/17 Principal diagnosis: afib, EtOH abuse, morbid obesity, respiratory failure status post extubatio Interval history: resting in bed, events noted Objective - Exam Narrative Exam: GEN: WDWN, NAD, HEENT: NCAT, PERRL, EOMI, OP CLEAR NECK: SUPPLE, NO THYROMEGALY, NO JVD, NO LAD CVS: irregular irregular, NORMAL S1S2 LUNGS/CHEST: scat rhonchi NORMAL CHEST EXPANSION B, GOOD AIR ENTRY B ABD: SOFT NTND, GBS, NO REBOUND OR GUARDING EXT/SKIN: NO SIGNIFICANT EDEMA OR RASH MSK: FROM X 4 EXTREMITIES NEURO: CN 2-12 GROSSLY INTACT, NO FOCAL DEFICITS - Vital Signs Vital signs: Vital Signs - 12hr 05/02/17 05/02/17 05/03/17 23:36 23:37 04:00 Temperature 98.8 F 98.8 F Pulse Rate [ Anterior Bilateral Throughout] Respiratory 18 18 Rate Respiratory Rate [Anterior Bilateral Throughout] Blood Pressure 137/70 137/70 [Left Arm] O2 Sat by Pulse 96 Oximetry 05/03/17 05/03/17 05/03/17 08:05 08:06 08:13 Temperature Pulse Rate [ 100 H 107 H Anterior Bilateral Throughout] Respiratory Rate Respiratory 16 16 Rate [Anterior Bilateral Throughout] Blood Pressure [Left Arm] O2 Sat by Pulse 98 Oximetry - Lab 05/02/17 10:55 05/02/17 10:55 Most recent lab results Calcium 8.0 mg/dL (8.4-10.2) L 05/02/17 10:55 Phosphorus 4.60 mg/dL (2.5-4.5) H 03/06/17 04:50 Magnesium 1.60 mg/dL (1.7-2.3) L 03/19/17 06:55 Urine Creatinine 40.8 mg/dL (0.1-20.0) H 04/27/17 23:32 Urine Sodium 28 mEq/L 03/29/17 22:10
[2017-05-03] MEDS: LASIX PO SCH (12:26)
[2017-05-03] MEDS: VITAMIN B-1 PO SCH (12:27)
[2017-05-03] MEDS: FOLVITE PO SCH (12:27)
[2017-05-03] MEDS: CARDIZEM CD PO SCH (12:27)
--- NOTE | 2017-05-03 12:41 | Progress Note ---
Hospitalist Physical - Constitutional Vitals: Temp Pulse Resp BP Pulse Ox 98.8 F 107 H 16 136/80 98 05/02/17 23:37 05/03/17 08:13 05/03/17 08:13 05/03/17 12:27 05/03/17 08:05 General appearance: Present: no acute distress, well-nourished Results - Labs CBC & Chem 7: 05/02/17 10:55 05/02/17 10:55 Labs: Laboratory Last Values WBC 11.1 K/mm3 (4.5-11.0) H 05/02/17 10:55 RBC 2.67 M/mm3 (3.65-5.03) L 05/02/17 10:55 Hgb 7.9 gm/dl (11.8-15.2) L 05/02/17 10:55 Hct 23.9 % (35.5-45.6) L 05/02/17 10:55 MCV 90 fl (84-94) 05/02/17 10:55 MCH 29 pg (28-32) 05/02/17 10:55 MCHC 33 % (32-34) 05/02/17 10:55 RDW 16.7 % (13.2-15.2) H 05/02/17 10:55 Plt Count 226 K/mm3 (140-440) 05/02/17 10:55 Lymph % (Auto) 6.8 % (13.4-35.0) L 04/24/17 06:50 Hood % (Auto) 10.5 % (0.0-7.3) H 04/24/17 06:50 Eos % (Auto) 3.6 % (0.0-4.3) 04/24/17 06:50 Baso % (Auto) 0.8 % (0.0-1.8) 04/24/17 06:50 Lymph # 0.5 K/mm3 (1.2-5.4) L 04/24/17 06:50 Hood # 0.8 K/mm3 (0.0-0.8) 04/24/17 06:50 Eos # 0.3 K/mm3 (0.0-0.4) 04/24/17 06:50 Baso # 0.1 K/mm3 (0.0-0.1) 04/24/17 06:50 Add Manual Diff Complete 04/08/17 08:18 Total Counted 100 04/08/17 08:18 Seg Neutrophils % 78.3 % (40.0-70.0) H 04/24/17 06:50 Seg Neuts % (Manual) 88.0 % (40.0-70.0) H 04/08/17 08:18 Band Neutrophils % 3.0 % 04/08/17 08:18 Lymphocytes % (Manual) 6.0 % (13.4-35.0) L 04/08/17 08:18 Reactive Lymphs % (Man) 0 % 04/08/17 08:18 Monocytes % (Manual) 3.0 % (0.0-7.3) 04/08/17 08:18 Eosinophils % (Manual) 0 % (0.0-4.3) 04/08/17 08:18 Basophils % (Manual) 0 % (0.0-1.8) 04/08/17 08:18 Metamyelocytes % 0 % 04/08/17 08:18 Myelocytes % 0 % 04/08/17 08:18 Promyelocytes % 0 % 04/08/17 08:18 Blast Cells % 0 % 04/08/17 08:18 Nucleated RBC % Not Reportable 04/08/17 08:18 Seg Neutrophils # 6.1 K/mm3 (1.8-7.7) 04/24/17 06:50 Seg Neutrophils # Man 9.2 K/mm3 (1.8-7.7) H 04/08/17 08:18 Band Neutrophils # 0.3 K/mm3 04/08/17 08:18 Lymphocytes # (Manual) 0.6 K/mm3 (1.2-5.4) L 04/08/17 08:18 Abs React Lymphs (Man) 0.0 K/mm3 04/08/17 08:18 Monocytes # (Manual) 0.3 K/mm3 (0.0-0.8) 04/08/17 08:18 Eosinophils # (Manual) 0.0 K/mm3 (0.0-0.4) 04/08/17 08:18 Basophils # (Manual) 0.0 K/mm3 (0.0-0.1) 04/08/17 08:18 Metamyelocytes # 0.0 K/mm3 04/08/17 08:18 Myelocytes # 0.0 K/mm3 04/08/17 08:18 Promyelocytes # 0.0 K/mm3 04/08/17 08:18 Blast Cells # 0.0 K/mm3 04/08/17 08:18 WBC Morphology Not Reportable 04/08/17 08:18 Hypersegmented Neuts Not Reportable 04/08/17 08:18 Hyposegmented Neuts Not Reportable 04/08/17 08:18 Hypogranular Neuts Not Reportable 04/08/17 08:18 Smudge Cells Not Reportable 04/08/17 08:18 Toxic Granulation Not Reportable 04/08/17 08:18 Toxic Vacuolation Not Reportable 04/08/17 08:18 Dohle Bodies Not Reportable 04/08/17 08:18 Pelger-Huet Anomaly Not Reportable 04/08/17 08:18 Marco Rods Not Reportable 04/08/17 08:18 Platelet Estimate Not Reportable 04/08/17 08:18 Clumped Platelets Not Reportable 04/08/17 08:18 Plt Clumps, EDTA Not Reportable 04/08/17 08:18 Large Platelets Not Reportable 04/08/17 08:18 Giant Platelets Not Reportable 04/08/17 08:18 Platelet Satelliting Not Reportable 04/08/17 08:18 Plt Morphology Comment Not Reportable 04/08/17 08:18 RBC Morphology Normal 04/08/17 08:18 Dimorphic RBCs Not Reportable 04/08/17 08:18 Polychromasia Not Reportable 04/08/17 08:18 Hypochromasia Not Reportable 04/08/17 08:18 Poikilocytosis Not Reportable 04/08/17 08:18 Anisocytosis Not Reportable 04/08/17 08:18 Microcytosis Not Reportable 04/08/17 08:18 Macrocytosis Not Reportable 04/08/17 08:18 Spherocytes Not Reportable 04/08/17 08:18 Pappenheimer Bodies Not Reportable 04/08/17 08:18 Sickle Cells Not Reportable 04/08/17 08:18 Target Cells Not Reportable 04/08/17 08:18 Tear Drop Cells Not Reportable 04/08/17 08:18 Ovalocytes Not Reportable 04/08/17 08:18 Stomatocytes Rare 04/06/17 06:30 Helmet Cells Not Reportable 04/08/17 08:18 Kelley-[place]ridge Bodies Not Reportable 04/08/17 08:18 [place] Rings Not Reportable 04/08/17 08:18 [place] Cells Not Reportable 04/08/17 08:18 Bite Cells Not Reportable 04/08/17 08:18 Crenated Cell Not Reportable 04/08/17 08:18 Elliptocytes Not Reportable 04/08/17 08:18 Acanthocytes (Spur) Not Reportable 04/08/17 08:18 Rouleaux Not Reportable 04/08/17 08:18 Hemoglobin C Crystals Not Reportable 04/08/17 08:18 Schistocytes Not Reportable 04/08/17 08:18 Malaria parasites Not Reportable 04/08/17 08:18 Nishant Bodies Not Reportable 04/08/17 08:18 Hem Pathologist Commnt No 04/08/17 08:18 PT 21.3 Sec. (12.2-14.9) H 05/03/17 05:00 INR 1.85 (0.87-1.13) H 05/03/17 05:00 APTT 33.0 Sec. (24.2-36.6) 03/28/17 10:30 Heparin Anti-Xa Level 0.10 U.I./ml (0.3-0.7) L 04/13/17 05:46 Heparin Anti-Xa, Unfract Negative (Negative) 03/25/17 18:26 POC ABG pH 7.323 (7.35-7.45) L 04/07/17 09:21 POC ABG pCO2 41.7 (35-45) 04/07/17 09:21 POC ABG pO2 99 (80-105) 04/07/17 09:21 POC ABG HCO3 21.7 04/07/17 09:21 POC ABG Total CO2 23 04/07/17 09:21 POC ABG O2 Sat 97 04/07/17 09:21 POC ABG Base Excess -4 04/07/17 09:21 FiO2 30 % 04/07/17 09:21 Sodium 141 mmol/L (137-145) 05/02/17 10:55 Potassium 4.6 mmol/L (3.6-5.0) 05/02/17 10:55 Chloride 93.7 mmol/L (98-107) L 05/02/17 10:55 Carbon Dioxide 32 mmol/L (22-30) H 05/02/17 10:55 Anion Gap 20 mmol/L 05/02/17 10:55 BUN 32 mg/dL (9-20) H 05/02/17 10:55 Creatinine 2.2 mg/dL (0.8-1.5) H 05/02/17 10:55 Estimated GFR 31 ml/min 05/02/17 10:55 BUN/Creatinine Ratio 14.54 % 05/02/17 10:55 Glucose 132 mg/dL (75-100) H 05/02/17 10:55 POC Glucose 154 (70-105) H 05/02/17 16:50 Hemoglobin A1c 5.9 % (4-6) 04/26/17 09:05 Osmolality 324 Mosm/kg 03/21/17 21:55 Lactic Acid 1.50 mmol/L (0.7-2.0) 03/16/17 13:37 Uric Acid 7.3 mg/dL (3.5-7.6) 03/21/17 22:03 Calcium 8.0 mg/dL (8.4-10.2) L 05/02/17 10:55 Phosphorus 4.60 mg/dL (2.5-4.5) H 03/06/17 04:50 Magnesium 1.60 mg/dL (1.7-2.3) L 03/19/17 06:55 Total Bilirubin 0.50 mg/dL (0.1-1.2) 04/26/17 09:05 AST 14 units/L (5-40) 04/26/17 09:05 ALT 20 units/L (7-56) 04/26/17 09:05 Alkaline Phosphatase 98 units/L (35-129) 04/26/17 09:05 Total Creatine Kinase 148 units/L (55-170) 02/27/17 13:08 CK-MB (CK-2) 4.7 ng/mL (0.0-4.0) H 02/27/17 13:08 CK-MB (CK-2) Rel Index 3.1 (0-4) 02/27/17 13:08 Troponin T < 0.010 ng/mL (0.00-0.029) 02/27/17 13:08 Total Protein 6.2 g/dL (6.3-8.2) L 04/26/17 09:05 Albumin 2.6 g/dL (3.9-5) L 04/26/17 09:05 Albumin/Globulin Ratio 0.7 % 04/26/17 09:05 Triglycerides 111 mg/dL (2-149) 03/22/17 04:30 Serotonin Release Assay See scanned report 03/25/17 18:26 TSH 0.737 mlU/mL (0.270-4.200) 03/29/17 19:34 Free T4 1.16 ng/dL (0.76-1.46) 02/26/17 23:40 Total Cortisol 34.6 mcg/dL () 03/29/17 19:34 Urine Color Yellow (Yellow) 04/27/17 Unknown Urine Turbidity Cloudy (Clear) 04/27/17 Unknown Urine pH 6.0 (5.0-7.0) 04/27/17 Unknown Ur Specific [place] 1.006 (1.003-1.030) 04/27/17 Unknown Urine Protein <15 mg/dl mg/dL (Negative) 04/27/17 Unknown Urine Glucose (UA) Neg mg/dL (Negative) 04/27/17 Unknown Urine Ketones Neg mg/dL (Negative) 04/27/17 Unknown Urine Blood Sm (Negative) 04/27/17 Unknown Urine Nitrite Neg (Negative) 04/27/17 Unknown Urine Bilirubin Neg (Negative) 04/27/17 Unknown Urine Urobilinogen < 2.0 mg/dL (<2.0) 04/27/17 Unknown Ur Leukocyte Esterase Lg (Negative) 04/27/17 Unknown Urine WBC (Auto) > 182.0 /HPF (0.0-6.0) H 04/27/17 Unknown Urine RBC (Auto) 21.0 /HPF (0.0-6.0) 04/27/17 Unknown U Epithel Cells (Auto) 1.0 /HPF (0-13.0) 04/27/17 Unknown Urine Bacteria (Auto) 2+ /HPF (Negative) 04/27/17 Unknown Urine WBC Clumps 2+ /HPF 04/27/17 Unknown Urine Mucus Few /HPF 03/03/17 10:38 Urine Yeast (Budding) Few /HPF 04/27/17 Unknown Urine Osmolality 295 Mosm/kg 03/29/17 22:10 Urine Total Volume 1100 04/27/17 23:32 Urine Creatinine 40.8 mg/dL (0.1-20.0) H 04/27/17 23:32 Height (in) 68.0 inches 04/27/17 23:32 Weight (lb) 249.0 lbs 04/27/17 23:32 Creatinine Clearance 6 04/27/17 23:32 Urine Sodium 28 mEq/L 03/29/17 22:10 Urine Potassium 35.44 mEq/L 03/29/17 22:10 Urine Chloride 15.2 mEq/L (110-250) L 03/29/17 22:10 Random Vancomycin 24.1 ug/mL (0-40.0) 03/23/17 09:34 Plasma/Serum Alcohol 0.24 gm% (0-0.07) H 02/26/17 23:40 Heparin-induced Plt Ab TNR 03/25/17 18:26 UF Heparin High Dose 12 % Release 03/25/17 18:26 [facility] UFH Low Dose 0.1 5 % Release 03/25/17 18:26 [facility] UFH Low Dose 0.5 5 % Release 03/25/17 18:26 Hepatitis A IgM Ab Non-reactive (NonReactive) 03/23/17 17:20 Hep Bs Antigen Non-reactive (Negative) 03/23/17 17:20 Hep B Core IgM Ab Non-reactive (NonReactive) 03/23/17 17:20 Hepatitis C Antibody Non-reactive (NonReactive) 03/23/17 17:20
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
[2017-05-03] MEDS ORDERED: COUMADIN PO SCH (17:00)
[2017-05-03 18:47] VITALS: BP 140/80
[2017-05-03] MEDS: TOPROL XL PO SCH (18:47)
== END 2017-05-03 19:25 | disposition home health service (06) | DRG 870 ==
LOC: ED 23:05 → CC1 02-27 02:29 → 4A 03-07 18:03 → CC1 03-18 13:52 → 4A 04-08 15:31 → 3A 04-21 17:15
PROVIDERS: ADMIT Internal Medicine; ATTEND Internal Medicine
PROC: 5A1955Z Respiratory Ventilation, Greater than 96 Consecutive Hours (ICD-10-PCS; 2017-02-27)
PROC: 5A1D60Z (ICD-10-PCS; 2017-02-27)
PROC: 5A09457 Assistance with Respiratory Ventilation, 24-96 Consecutive Hours, Continuous Positive Airway Pressure (ICD-10-PCS; 2017-02-27)
PROC: 02HV33Z Insertion of Infusion Device into Superior Vena Cava, Percutaneous Approach (ICD-10-PCS; 2017-02-27)
PROC: 4A033R1 Measurement of Arterial Saturation, Peripheral, Percutaneous Approach (ICD-10-PCS; 2017-02-27)
PROC: 05HM33Z Insertion of Infusion Device into Right Internal Jugular Vein, Percutaneous Approach (ICD-10-PCS; principal; 2017-03-23)
PROC: 02HV33Z Insertion of Infusion Device into Superior Vena Cava, Percutaneous Approach (ICD-10-PCS; 2017-03-23)
PROC: B543ZZA Ultrasonography of Right Jugular Veins, Guidance (ICD-10-PCS; 2017-03-23)
PROC: 0BJ08ZZ Inspection of Tracheobronchial Tree, Via Natural or Artificial Opening Endoscopic (ICD-10-PCS; 2017-04-01)
DX: A41.9 Sepsis, unspecified organism (principal); G93.40 Encephalopathy, unspecified; N17.0 Acute kidney failure with tubular necrosis; E43 Unspecified severe protein-calorie malnutrition; J69.0 Pneumonitis due to inhalation of food and vomit; J96.01 Acute respiratory failure with hypoxia; J15.0 Pneumonia due to Klebsiella pneumoniae; I50.23 Acute on chronic systolic (congestive) heart failure; S22.32XA Fracture of one rib, left side, initial encounter for closed fracture; F10.231 Alcohol dependence with withdrawal delirium; E87.0 Hyperosmolality and hypernatremia; I42.9 Cardiomyopathy, unspecified; J98.11 Atelectasis; N30.00 Acute cystitis without hematuria; I82.432 Acute embolism and thrombosis of left popliteal vein; I13.0 Hypertensive heart and chronic kidney disease with heart failure and stage 1 through stage 4 chronic kidney disease, or unspecified chronic kidney disease; I48.91 Unspecified atrial fibrillation; R65.10 Systemic inflammatory response syndrome (SIRS) of non-infectious origin without acute organ dysfunction; E78.5 Hyperlipidemia, unspecified; F17.200 Nicotine dependence, unspecified, uncomplicated; Z88.5 Allergy status to narcotic agent; E66.01 Morbid (severe) obesity due to excess calories; Z68.31 Body mass index [BMI] 31.0-31.9, adult; X58.XXXA Exposure to other specified factors, initial encounter; Y93.89 Activity, other specified; Y92.89 Other specified places as the place of occurrence of the external cause; Y99.8 Other external cause status; E83.42 Hypomagnesemia; E87.6 Hypokalemia; I27.2 Other secondary pulmonary hypertension; R31.0 Gross hematuria; N20.0 Calculus of kidney; Z84.89 Family history of other specified conditions; Z83.1 Family history of other infectious and parasitic diseases; Z82.49 Family history of ischemic heart disease and other diseases of the circulatory system; Z91.19 Patient's noncompliance with other medical treatment and regimen; F19.10 Other psychoactive substance abuse, uncomplicated; D64.9 Anemia, unspecified; D69.6 Thrombocytopenia, unspecified; N18.9 Chronic kidney disease, unspecified; E11.65 Type 2 diabetes mellitus with hyperglycemia
CPT/HCPCS: 31500; 36415; 36600; 70450; 71010; 74000; 74176; 76770; 80048; 80053; 80074; 80202; 80320; 81001; 82140; 82436; 82533; 82550; 82553; 82565; 82570; 82575; 82803; 82962; 83036; 83735; 83930; 83935; 84100; 84133; 84300; 84439; 84443; 84478; 84484; 84550; 85007; 85014; 85018; 85025; 85027; 85049; 85520; 85610; 85730; 86022; 86403; 87040; 87070; 87075; 87076; 87086; 87116; 87186; 87205; 87493; 93005; 93010; 93306; 93970; 94002; 94003; 94640; 94660; 94760; 96374; 96375; A4217; A6250; G0480; G8996-GN; G8997-GN; G8998-GN; J0330; J0360; J0610; J1160; J1170; J1630; J1644; J1650; J1815; J1940; J2060; J2185; J2250; J2405; J2543; J2704; J2930; J3246; J3370; J3430; J3475; J3480; J7030; J7040; P9047

== ENCOUNTER 2017-08-09 11:40 | Outpatient (CLI) | payer OTHER ==
[2017-08-09] MEDS ORDERED: PROVENTIL IH ONE (11:59)
[2017-08-09 13:52] LABS: Albumin 4.7 g/dL (3.9-5); Albumin/Globulin Ratio 1.3 %; Bilirubin,Total 0.5 mg/dL (0.1-1.2); Calcium 10.1 mg/dL (8.4-10.2); Chloride 96.2 mmol/L (98-107); Potassium 4.2 mmol/L (3.6-5.0); Total Protein 8.3 g/dL (6.3-8.2)
== END 2017-08-09 11:41 | disposition home or self-care (01) ==
LOC: PF 11:40
PROVIDERS: ATTEND Internal Medicine
DX: I12.0 Hypertensive chronic kidney disease with stage 5 chronic kidney disease or end stage renal disease (principal); N18.6 End stage renal disease; I48.91 Unspecified atrial fibrillation; R06.02 Shortness of breath; Z87.891 Personal history of nicotine dependence
CPT/HCPCS: 36415; 80053; 94060; 94729

== ENCOUNTER 2018-07-07 01:11 | Emergency (ER) | payer SELFPAY ==
[2018-07-07 01:22] VITALS: BP 170/96
--- NOTE | 2018-07-07 07:14 | Emergency Department Report ---
ED Upper Extremity Inj HPI - General Chief Complaint: Extremity Problem,Nontraumatic Stated Complaint: RIGHT SIDE ROTATOR CUFF PAIN Time Seen by Provider: 07/07/18 06:59 Source: patient Mode of arrival: Ambulatory Limitations: No Limitations - History of Present Illness Initial Comments: This 52-year-old male who presents with right shoulder pain for 3 months. Past medical history of arthritis, congestive heart failure, hypertension, and atrial fibrillation. Patient states symptoms started 3 months ago but progressed over the past 3 days. Patient states it is very difficult for him to reach up because he cannot lift his arm. Patient states pain is 10 out of 10 on pain scale with movement and sharp sensation. Patient states his right shoulder increasingly became stiff and difficult to move. Patient states he can no longer reach into the refrigerator or reach up. He is currently using icy hot, lidocaine, and Aleve with no improvement of symptoms. Patient states his friend gave him a medicated patch which is not relieving his symptoms. Patient denies recent injury, numbness or tingling, fever, swelling, or erythema. MD Complaint: Injury to:: right, shoulder Onset/Timin -: days(s) Other Injuries: none Handedness: right Place: home Severity scale (0 -10): 10 Improves With: none Worsens With: movement of extremity Associated Symptoms: denies other symptoms Treatments Prior to Arrival: NSAIDS - Related Data Previous Rx's Medication Instructions Recorded Last Taken Type Folic Acid [Folvite] 1 mg PO QDAY #30 tablet 05/02/17 Unknown Rx Furosemide [Lasix TAB] 40 mg PO QDAY #30 tablet 05/02/17 Unknown Rx Ipratropium/Albuterol Sulfate 1 ampul IH BIDRT #30 ampul.neb 05/02/17 Unknown Rx [DUONEB *Not for PRN Use*] Metoprolol Xl [Metoprolol 25 mg PO QPM #30 tablet 05/02/17 Unknown Rx SUCCINATE ER TAB] Thiamine [Vitamin B-1] 100 mg PO QDAY #30 tablet 05/02/17 Unknown Rx Warfarin [Coumadin] 2 mg PO QDAY #30 tablet 05/02/17 Unknown Rx dilTIAZem CD [Cardizem CD] 240 mg PO QDAY #30 capsule 05/02/17 Unknown Rx traMADol [Ultram 50 MG tab] 50 mg PO Q4H PRN #20 tablet 05/02/17 Unknown Rx Meloxicam [Mobic] 7.5 mg PO BID #14 tablet 07/07/18 Unknown Rx Allergies Allergy/AdvReac Type Severity Reaction Status Date / Time morphine Allergy Unknown Verified 07/03/13 19:46 ED Review of Systems ROS: Stated complaint: RIGHT SIDE ROTATOR CUFF PAIN Other details as noted in HPI Constitutional: denies: chills, fever Respiratory: denies: cough, shortness of breath, wheezing Cardiovascular: denies: chest pain, palpitations Gastrointestinal: denies: abdominal pain, nausea, diarrhea Musculoskeletal: arthralgia (right shoulder pain). denies: back pain, joint swelling Skin: denies: rash, lesions Neurological: denies: headache, weakness, paresthesias Psychiatric: denies: anxiety, depression ED Past Medical Hx - Past Medical History Previous Medical History?: Yes Hx Hypertension: Yes Hx Congestive Heart Failure: Yes Hx Arthritis: Yes (hands) Hx Seizures: Yes Hx Kidney Stones: Yes Additional medical history: A fib - Surgical History Past Surgical History?: No Hx Pacemaker: No Hx Internal Defibrillator: No - Social History Smoking Status: Former Smoker Substance Use Type: Alcohol - Medications Home Medications: Home Medications Medication Instructions Recorded Confirmed Last Taken Type Folic Acid [Folvite] 1 mg PO QDAY #30 tablet 05/02/17 Unknown Rx Furosemide [Lasix TAB] 40 mg PO QDAY #30 tablet 05/02/17 Unknown Rx Ipratropium/Albuterol Sulfate 1 ampul IH BIDRT #30 ampul.neb 05/02/17 Unknown Rx [DUONEB *Not for PRN Use*] Metoprolol Xl [Metoprolol 25 mg PO QPM #30 tablet 05/02/17 Unknown Rx SUCCINATE ER TAB] Thiamine [Vitamin B-1] 100 mg PO QDAY #30 tablet 05/02/17 Unknown Rx Warfarin [Coumadin] 2 mg PO QDAY #30 tablet 05/02/17 Unknown Rx dilTIAZem CD [Cardizem CD] 240 mg PO QDAY #30 capsule 05/02/17 Unknown Rx traMADol [Ultram 50 MG tab] 50 mg PO Q4H PRN #20 tablet 05/02/17 Unknown Rx Meloxicam [Mobic] 7.5 mg PO BID #14 tablet 07/07/18 Unknown Rx ED Physical Exam - General Limitations: No Limitations General appearance: alert, in no apparent distress, obese - Respiratory Respiratory exam: Present: normal lung sounds bilaterally. Absent: respiratory distress - Cardiovascular Cardiovascular Exam: Present: regular rate, normal rhythm. Absent: systolic murmur, diastolic murmur, rubs, gallop - GI/Abdominal GI/Abdominal exam: Present: soft, normal bowel sounds - Expanded Upper Extremity Exam Right Shoulder Exam: Present: crepidus, tenderness over AC joint, other (positive shoulder shrug test). Absent: full ROM (unable to tolerate passive range of motion), deformity, dislocation, erythema Upper Arm exam: Present: normal inspection Elbow exam: Present: normal inspection, full ROM Forearm Wrist exam: Present: normal inspection, full ROM Hand Wrist exam: Present: normal inspection, full ROM Neuro motor exam: Present: wrist extension intact, thumb opposition intact, thumb IP flexion intact, thumb adduction intact, fingers 2-5 abduction intact Neurosensory exam: Present: radial nerve intact, ulnar nerve intact, median nerve intact Vascular: Present: normal capillary refill, radial pulse (+2) - Neurological Exam Neurological exam: Present: alert, oriented X3 - Psychiatric Psychiatric exam: Present: normal affect, normal mood - Skin Skin exam: Present: warm, dry, intact, normal color. Absent: rash ED Course Vital Signs 07/07/18 07/07/18 01:16 08:06 Temperature 98.6 F Pulse Rate 94 H Respiratory 20 20 Rate Blood Pressure 170/96 O2 Sat by Pulse 94 Oximetry ED Medical Decision Making - Radiology Data Radiology results: report reviewed, image reviewed RIGHT SHOULDER, 3 VIEWS: HISTORY: right shoulder pain. Normal bone mineralization. No acute osseous injury or joint pathology is detected. The soft tissues are unremarkable. IMPRESSION: Right shoulder within normal limits. - Medical Decision Making Patient was examined by me in the emergency room. Vitals are stable and patient is in no acute distress. Patient given Toradol 30 mg IM once while in ER. Obtained a x-ray of right shoulder. X-rays dictated by radiologist and report reviewed by myself with no acute findings. Physical findings consistent couple of frozen shoulder. Referral to orthopedic surgery for continuance of care. Patient informed of results. Start Mobic 7.5 mg by mouth twice a day 7 days.. Plan discussed with patient to discharge home and treat outpatient. He agrees with ER plan. Patient discharged home in stable condition. Follow up with PCP in 2-3 days. Critical care attestation.: If time is entered above; I have spent that time in minutes in the direct care of this critically ill patient, excluding procedure time. ED Disposition Clinical Impression: Frozen shoulder syndrome Qualifiers: Laterality: right Qualified Code(s): M75.01 - Adhesive capsulitis of right shoulder Right shoulder pain Qualifiers: Chronicity: acute Qualified Code(s): M25.511 - Pain in right shoulder Disposition: - TO HOME OR SELFCARE Is pt being admited?: No Does the pt Need Aspirin: No Condition: Stable Instructions: Rotator Cuff Injury (ED), Arthralgia (ED) Additional Instructions: Rest Use ice or heat on affected area for 20 minutes and off for 2 hours. Take pain medication as needed for pain. Follow up with Primary Care Provider in 2-3 days. Prescriptions: Meloxicam [Mobic] 7.5 mg PO BID #14 tablet Referrals: NIELS GARCÍA MD [Staff Physician] - 3-[facility] Days [facility] - 3-5 Days [facility] [Provider Group] - 3-5 Days Forms: Work/School Release Form(ED) Time of Disposition: 08:37 Print Language: UPPER SORBIAN
[2018-07-07] MEDS ORDERED: TORADOL IM ONE (07:51)
--- NOTE | 2018-07-07 08:27 | XRay Report ---
RIGHT SHOULDER, 3 VIEWS: HISTORY: right shoulder pain. Normal bone mineralization. No acute osseous injury or joint pathology is detected. The soft tissues are unremarkable. IMPRESSION: Right shoulder within normal limits.
== END 2018-07-07 08:52 | disposition home or self-care (01) ==
LOC: ED 01:11
DX: M75.01 Adhesive capsulitis of right shoulder (principal); I10 Essential (primary) hypertension; I50.9 Heart failure, unspecified; M19.90 Unspecified osteoarthritis, unspecified site; Z88.6 Allergy status to analgesic agent; Z87.891 Personal history of nicotine dependence
CPT/HCPCS: 73030; 96372; 99283; J1885

== ENCOUNTER 2018-07-12 19:32 | Inpatient (IN) | payer SELFPAY ==
[2018-07-12] MEDS ORDERED: ASPIRIN PO ONE (19:49)
[2018-07-12] MEDS ORDERED: CARDIZEM IV ONE (20:05)
[2018-07-12] MEDS ORDERED: CARDIZEM ONE (20:05)
[2018-07-12 20:12] LABS: Basophils # (Auto) 0.1 K/mm3 (0.0-0.1); Basophils % (Auto) 0.6 % (0.0-1.8); Eosinophils # (Auto) 0.3 K/mm3 (0.0-0.4); Eosinophils % (Auto) 2.8 % (0.0-4.3); Hemoglobin 6.5 gm/dl (11.8-15.2); Lymphocytes # (Auto) 2.2 K/mm3 (1.2-5.4); Lymphocytes % (Auto) 19.6 % (13.4-35.0); Mean Corpuscular HGB Conc 33 % (32-34); Mean Corpuscular Hemoglobin 32 pg (28-32); Mean Corpuscular Volume 95 fl (84-94); Monocytes # (Auto) 0.8 K/mm3 (0.0-0.8); Monocytes % (Auto) 7.4 % (0.0-7.3); Platelet Count 208 K/mm3 (140-440); Red Blood Count 2.06 M/mm3 (3.65-5.03); Red Cell Distribution Width 15.7 % (13.2-15.2)
[2018-07-12] MEDS ORDERED: NACL 0.9% 500 ML 500 ML IV ONE (20:17)
[2018-07-12 20:21] LABS: Hematocrit 19.6 % (35.5-45.6)
--- NOTE | 2018-07-12 20:23 | Emergency Department Report ---
ED Chest Pain HPI - General Chief Complaint: Chest Pain Stated Complaint: CHEST PAIN/ANGEL Time Seen by Provider: 07/12/18 20:16 Source: patient Mode of arrival: Ambulatory Limitations: No Limitations - History of Present Illness Initial Comments: Patient is 52 years old male with history of congestive heart failure, atrial fibrillation and hypertension. Patient presented to the ER complaining of palpitation, chest pain and shortness of breath started yesterday. Patient stated he went to his primary care physician today and found that he has a increased heart rate and advised him to come to the ER. Patient is also stating that is been having generalized weakness. Patient stated that he was taking warfarin but his doctor stop him 2 weeks ago and he is on plavix and aspirin, in the ER patient was found to have atrial fibrillation with RVR and a heart rate of 154. Patient stable with oxygen saturation of 100%. Patient is given 20 mg of Cardizem IV and started patient on Cardizem drip. Patient heart rate immediately went down to 110. Patient also stated that his been passing black stool for the last three months. He denied any hematemesis or gross hematochezia. Patient also denied any hemoptysis or hematuria. MD Complaint: chest pain Severity scale (0 -10): 8 - Related Data Previous Rx's Medication Instructions Recorded Last Taken Type Folic Acid [Folvite] 1 mg PO QDAY #30 tablet 05/02/17 Unknown Rx Furosemide [Lasix TAB] 40 mg PO QDAY #30 tablet 05/02/17 Unknown Rx Ipratropium/Albuterol Sulfate 1 ampul IH BIDRT #30 ampul.neb 05/02/17 Unknown Rx [DUONEB *Not for PRN Use*] Metoprolol Xl [Metoprolol 25 mg PO QPM #30 tablet 05/02/17 Unknown Rx SUCCINATE ER TAB] Thiamine [Vitamin B-1] 100 mg PO QDAY #30 tablet 05/02/17 Unknown Rx Warfarin [Coumadin] 2 mg PO QDAY #30 tablet 05/02/17 Unknown Rx dilTIAZem CD [Cardizem CD] 240 mg PO QDAY #30 capsule 05/02/17 Unknown Rx traMADol [Ultram 50 MG tab] 50 mg PO Q4H PRN #20 tablet 05/02/17 Unknown Rx Meloxicam [Mobic] 7.5 mg PO BID #14 tablet 07/07/18 Unknown Rx Allergies Allergy/AdvReac Type Severity Reaction Status Date / Time morphine Allergy Unknown Verified 07/03/13 19:46 Heart Score - HEART Score History: Moderately suspicious EKG: Non-specific Age: 45-65 Risk factors: 1-2 risk factors Troponin: < normal limit HEART Score: 4 - Critical Actions Critical Actions: 4-6 pts:12-16.6% risk of adverse cardiac event. Should be admitted ED Review of Systems ROS: Stated complaint: CHEST PAIN/ANGEL Other details as noted in HPI Comment: All other systems reviewed and negative Constitutional: denies: chills, fever Respiratory: orthopnea, shortness of breath, SOB with exertion, SOB at rest. denies: cough, wheezing Gastrointestinal: denies: abdominal pain, nausea, vomiting, diarrhea, constipation, hematemesis, melena, hematochezia Neurological: weakness (generalized weakness). denies: headache, numbness, paresthesias, confusion, abnormal gait ED Past Medical Hx - Past Medical History Previous Medical History?: Yes Hx Hypertension: Yes Hx Congestive Heart Failure: Yes Hx Arthritis: Yes (hands) Hx Seizures: Yes Hx Kidney Stones: Yes Additional medical history: A fib - Surgical History Past Surgical History?: No Hx Pacemaker: No Hx Internal Defibrillator: No - Social History Smoking Status: Never Smoker Substance Use Type: Alcohol - Medications Home Medications: Home Medications Medication Instructions Recorded Confirmed Last Taken Type Folic Acid [Folvite] 1 mg PO QDAY #30 tablet 05/02/17 Unknown Rx Furosemide [Lasix TAB] 40 mg PO QDAY #30 tablet 05/02/17 Unknown Rx Ipratropium/Albuterol Sulfate 1 ampul IH BIDRT #30 ampul.neb 05/02/17 Unknown Rx [DUONEB *Not for PRN Use*] Metoprolol Xl [Metoprolol 25 mg PO QPM #30 tablet 05/02/17 Unknown Rx SUCCINATE ER TAB] Thiamine [Vitamin B-1] 100 mg PO QDAY #30 tablet 05/02/17 Unknown Rx Warfarin [Coumadin] 2 mg PO QDAY #30 tablet 05/02/17 Unknown Rx dilTIAZem CD [Cardizem CD] 240 mg PO QDAY #30 capsule 05/02/17 Unknown Rx traMADol [Ultram 50 MG tab] 50 mg PO Q4H PRN #20 tablet 05/02/17 Unknown Rx Meloxicam [Mobic] 7.5 mg PO BID #14 tablet 07/07/18 Unknown Rx ED Physical Exam - General Limitations: No Limitations General appearance: alert, in no apparent distress, other (pale) - Head Head exam: Present: atraumatic, normocephalic, normal inspection - Eye Eye exam: Present: PERRL, other (pale conjuctiva) - ENT ENT exam: Present: normal exam, normal orophraynx, mucous membranes moist - Neck Neck exam: Present: normal inspection, full ROM. Absent: tenderness, meningismus, lymphadenopathy, thyromegaly - Respiratory Respiratory exam: Absent: respiratory distress, wheezes, rales, rhonchi, accessory muscle use, decreased breath sounds, prolonged expiratory - Cardiovascular Cardiovascular Exam: Present: tachycardia, irregular rhythm - GI/Abdominal GI/Abdominal exam: Present: soft, normal bowel sounds. Absent: distended, tenderness, guarding, rebound, rigid, organomegaly, mass, bruit, pulsatile mass , hernia - Rectal Rectal exam: Present: normal rectal tone, heme (+) stool, black stool. Absent: bloody stool, fecal impaction, hemorrhoids, mass, tenderness - Extremities Exam Extremities exam: Present: normal inspection, full ROM, pedal edema - Back Exam Back exam: Present: normal inspection, full ROM. Absent: tenderness, CVA tenderness (R), CVA tenderness (L), muscle spasm, paraspinal tenderness, vertebral tenderness - Neurological Exam Neurological exam: Present: alert, oriented X3, CN II-XII intact, normal gait, reflexes normal - Skin Skin exam: Present: warm, intact, normal color ED Course Vital Signs 07/12/18 07/12/18 07/12/18 19:44 20:06 20:10 Temperature 99.6 F Pulse Rate 163 H 142 H 99 H Respiratory 20 15 Rate Blood Pressure 172/106 167/92 Blood Pressure 129/82 [Left] O2 Sat by Pulse 99 100 Oximetry 07/12/18 20:53 Temperature Pulse Rate 112 H Respiratory Rate Blood Pressure 145/95 Blood Pressure [Left] O2 Sat by Pulse Oximetry ED Medical Decision Making - Lab Data Result diagrams: 07/12/18 19:52 07/12/18 19:52 - EKG Data -: EKG Interpreted by Ny Rate: tachycardia - EKG Data 07/12/18 20:25 A. fib with RVR 154 - Radiology Data Radiology results: report reviewed - Medical Decision Making Patient is 52 years old male with history of congestive heart failure, atrial fibrillation and hypertension. Patient presented to the ER complaining of palpitation, chest pain and shortness of breath started yesterday. Patient stated he went to his primary care physician today and found that he has a increased heart rate and advised him to come to the ER. Patient is also stating that is been having generalized weakness. Patient stated that he was taking warfarin but his doctor stop him 2 weeks ago and he is on plavix and aspirin, in the ER patient was found to have atrial fibrillation with RVR and a heart rate of 154. Patient stable with oxygen saturation of 100%. Patient is given 20 mg of Cardizem IV and started patient on Cardizem drip. Patient heart rate immediately went down to 110. Patient also stated that his been passing black stool for the last three months. He denied any hematemesis or gross hematochezia. Patient also denied any hemoptysis or hematuria. Patient found to have a hemoglobin of 6.5. Strongly positive Hemoccult. Patient stated that he was having black stools for the last 3 months. Patient transfused one units of PRBC. I discussed the patient with Dr. Murillo, he agreed to admit the patient to medical service. Critical Care Time: Yes Critical care time in (mins) excluding proc time.: 45 Critical care attestation.: If time is entered above; I have spent that time in minutes in the direct care of this critically ill patient, excluding procedure time. ED Disposition Clinical Impression: Atrial fibrillation with rapid ventricular response, Acute blood loss anemia, Shortness of breath, Chest pain Disposition: -09 OP ADMIT IP TO THIS HOSP Is pt being admited?: Yes Condition: Stable Instructions: Chest Pain (ED) Referrals: PRIMARY CARE, [Primary Care Provider] - 3-5 Days
[2018-07-12 20:36] LABS: BUN/Creatinine Ratio 24; Blood Urea Nitrogen 39 mg/dL (9-20); Calcium 8.8 mg/dL (8.4-10.2); Hemolysis Index 1
[2018-07-12] MEDS: CARDIZEM 100 MG in D5W 80 ML IV SCH (20:53)
[2018-07-12 20:55] LABS: INR 3.58 (0.87-1.13)
[2018-07-12 21:08] LABS: Albumin 4.2 g/dL (3.9-5); Bilirubin,Direct 0.3 mg/dL (0-0.2)
[2018-07-12] MEDS ORDERED: LASIX IV ONE (21:11)
[2018-07-12] MEDS ORDERED: ZOFRAN IV PRN (22:25)
[2018-07-12] MEDS ORDERED: NITROSTAT SL PRN (22:26)
--- NOTE | 2018-07-12 23:03 | XRay Report ---
FINAL REPORT PROCEDURE: XR CHEST 1V AP TECHNIQUE: Chest radiograph anteroposterior view. CPT 48704 HISTORY: chest pain COMPARISON: 03/29/2017 FINDINGS: Heart: Normal. Mediastinum/Vessels: Normal. Lungs/Pleural space: Lungs are hyperinflated. There are no confluent infiltrates or mass lesions. Pleural spaces are clear.. Bony thorax: Old healed right rib fracture deformities are noted.. Life support devices: None. IMPRESSION: COPD No acute pulmonary process..
[2018-07-12] MEDS ORDERED: LASIX ONE (23:21)
[2018-07-13] MEDS: DILAUDID IV PRN ×4 (00:03→19:46)
[2018-07-13] MEDS: NITRO-BID 2% TP SCH ×6 (00:31→18:32)
[2018-07-13 03:19] LABS: Hematocrit 22.7 % (35.5-45.6); Hemoglobin 7.4 gm/dl (11.8-15.2)
[2018-07-13 03:31] LABS: Creatine Kinase MB 4.8 ng/mL (0.0-4.0)
--- NOTE | 2018-07-13 05:17 | History and Physical Report ---
CHIEF COMPLAINT: Chest pain. OTHER COMPLAINT: Includes shortness of breath. HISTORY OF PRESENT ILLNESS: The patient is a 52-year-old male who presented to the Emergency Room with chest pain associated with shortness of breath and palpitations. The patient was sent to the Emergency Room by his primary care doctor after he presented there with increased heart rate. The patient was also noted that he was feeling weak with pain in the right shoulder area in the left knee area. The patient has been on Warfarin or Coumadin that was stopped about two weeks prior to presentation and is currently on Plavix and aspirin, on arrival at the Emergency Room, the patient was noted to have atrial fibrillation with rapid ventricular response with heart rate shooting up to 154 and subsequently, the patient was given IV Cardizem 20 mg and started on Cardizem drip, presented for admission. PAST MEDICAL HISTORY: Pertinent for hypertension, congestive heart failure, arthritis, seizure disorder, kidney stones, and atrial fibrillation. PAST SURGICAL HISTORY: Unremarkable. FAMILY HISTORY: Noncontributory. SOCIAL HISTORY: The patient drinks alcohol, does not smoke cigarettes, and does not use illicit drugs. MEDICATIONS: The patient is on folic acid 1 mg by mouth daily, Lasix 40 mg by mouth daily, DuoNeb nebulizer one inhalation twice daily, metoprolol succinate 25 mg by mouth every evening, thiamine, vitamin B 100 mg by mouth daily, Coumadin 2 mg by mouth daily, Cardizem CD 240 mg by mouth daily, tramadol 50 mg by mouth every 4 hours as needed for pain, meloxicam (Mobic) 7.5 mg by mouth with twice daily. ALLERGIES: The patient is allergic to MORPHINE. REVIEW OF SYSTEMS: CONSTITUTIONAL: There is no fever, no chills, no diaphoresis. HEENT: There is no headache or sore throat. CARDIOVASCULAR SYSTEM: Chest pain is present. No orthopnea. RESPIRATORY SYSTEM: Shortness of breath is present. No cough. GASTROINTESTINAL SYSTEM: There is nausea, with no vomiting, no abdominal pain, diarrhea, or constipation. There is melena or black stool. NEUROLOGIC SYSTEM: Dizziness present. No altered mental status. MUSCULOSKELETAL SYSTEM: There is no joint pain or swelling. DERMATOLOGICAL SYSTEM: There is no skin rash or itching. GENITOURINARY SYSTEM: There are no dysuria, hematuria or flank pain. Rest of system review is normal. PHYSICAL EXAMINATION: GENERAL: At the time of exam, the patient was found to be alert, oriented x 3, not in acute distress. VITAL SIGNS: Shows temperature of 99.6 degrees Fahrenheit, pulse of 163, respirations 20, blood pressure 172/103, O2 sat of 99% on room air. HEENT: Exam show pupils to be equal, round, reactive to light and accommodation. Extraocular muscles are intact. NECK: Supple with no JVD or carotid bruit. CARDIOVASCULAR SYSTEM: Show first and second heart sounds with irregularly irregular rhythm. RESPIRATORY SYSTEM: Show good air entry on both sides of the lungs with no abnormal breath sounds. GASTROINTESTINAL SYSTEM: Show abdomen to be full, soft, nontender with no organomegaly or rigidity. The rectal exam was done by the Emergency Room doctor with guaiac positive stool. NEUROLOGICAL: Exam shows no focal deficit. MUSCULOSKELETAL SYSTEM: Show no joint swelling or tenderness. DERMATOLOGICAL SYSTEM: Show no skin rash. GENITOURINARY SYSTEM: Showing no costovertebral angle tenderness. PERTINENT LABORATORY AND IMAGING STUDIES: The patient has chest x-ray done that was unremarkable, that shows no acute pulmonary process. The patient's lab results show CBC with normal white count, low hemoglobin of 6.5, low hematocrit of 19.6, with elevated MCV of 95. Rest of CBC was unremarkable. The patient's coagulation studies show high PT of 36.3, high INR of 3.5, with high PTT of 81. The patient's chemistry show elevated BUN of 36, with elevated creatinine of 1.6, low GFR of 45. The patient's coagulation studies were unremarkable. Cardiac enzymes came back unremarkable. The patient's brain natriuretic peptide level was high with a value of 2876. DIAGNOSES: 1. Atrial fibrillation with rapid ventricular response. 2. Chest pain. 3. Gastrointestinal hemorrhage. 4. Congestive heart failure exacerbation. 5. Acute kidney injury. 6. Anemia. CARE OF PLAN: 1. The patient will be admitted to telemetry. 2. The patient will have cardiac enzyme involving troponin, total CK, and CK-MB checked every 6 hours x 2, more levels. 3. The patient will have hemoglobin and hematocrit checked every 6 hours x 3 level and we will also have basic metabolic panel checked this morning. 4. The patient will remain nothing by mouth and we will have Lexiscan stress test done this morning. Also, the patient will have 2D echo done to check patient's left ventricular function. 5. The patient will continue the order for transfusion of 1 unit of blood as directed by the Emergency Room physician. 6. The patient will be on Tylenol 650 mg by mouth every 4 hours for fever and headache and will be on daily aspirin 325 mg. 7. The patient will continue Cardizem drip started in the Emergency Room until the heart rate is under 100. 8. The patient will be on Dilaudid 1 mg every 4 hours as needed for pain and will be on nitro paste half-inch to the anterior chest wall four times a day. 9. The patient will be on sublingual nitroglycerin 0.4 mg every 5 minutes as needed for chest pain and will be on intravenous Zofran 4 mg every 8 hours as needed for nausea and vomiting. The patient will also be on Protonix 40 mg intravenous twice daily. 10. The patient will have Gastroenterology consult with Jacki Mcclellan, with Dr. Tolu Al consulted. 11. The patient will also have a critical care consult with Dr. Bernard for Intensive Care Unit admission. 12. The patient will be on oxygen by nasal cannula at 2 liter per minute. JOB# [id number] OCN/NTS
[2018-07-13 06:25] LABS: Hematocrit 21.4 % (35.5-45.6); Hemoglobin 7.3 gm/dl (11.8-15.2)
[2018-07-13 06:48] LABS: Creatine Kinase MB 5.1 ng/mL (0.0-4.0)
[2018-07-13 06:49] LABS: BUN/Creatinine Ratio 24; Blood Urea Nitrogen 33 mg/dL (9-20); Calcium 8.6 mg/dL (8.4-10.2); Hemolysis Index 5
--- NOTE | 2018-07-13 08:10 | Progress Note ---
Assessment and Plan Assessment and plan: --A. fib with rapid ventricular rate; Continue Cardizem drip, titrate heart rates to less than 100 Consults cardiology, supportive care --Coagulopathy/Coumadin toxicity; Patient's INR 3.58 upon admission, Coumadin Closely monitor INR, vitamin K and FFP's if needed --Severe anemia/acute blood loss; Secondary to coagulopathy, received 1 unit of PRBC transfusion Closely monitor H&H and transfuse additional PRBC --GI bleeding; secondary to coagulopathy Follow GI evaluation and recommendations --Acute kidney injury; probably vasomotor nephropathy Slightly improved, closely monitor renal function and avoid nephrotoxins --Hypertension; moderate control Continue current antihypertensives and when necessary medications --DVT prophylaxis; SCDs Closely monitor the patient and adjust management as needed Consult and recommendations noted Plan of care reviewed with the patient and his nurse Critical care Time 40 minutes History Interval history: Patient seen and examined this morning in ICU medical records reviewed Admitted with melena, A. fib with rapid ventricular rate, on Cardizem drip Patient feels slightly better Complaints of generalized weakness No new episodes of bleeding Alert awake oriented 3 Vital signs reviewed Hospitalist Physical - Constitutional Vitals: Temp Pulse Resp BP Pulse Ox 97.5 F L 96 H 12 154/102 100 07/13/18 08:00 07/13/18 06:38 07/13/18 04:00 07/13/18 06:38 07/13/18 04:00 General appearance: Present: no acute distress, well-nourished, obese - EENT Eyes: Present: PERRL, EOM intact - Neck Neck: Present: supple, normal ROM - Respiratory Respiratory effort: normal Respiratory: bilateral: diminished, negative: rales, rhonchi, wheezing - Cardiovascular Rhythm: regular Heart Sounds: Present: S1 & S2 - Extremities Extremities: no ischemia, No edema - Abdominal General gastrointestinal: soft, non-tender, non-distended, normal bowel sounds - Integumentary Integumentary: Present: clear, warm - Psychiatric Psychiatric: appropriate mood/affect, cooperative - Neurologic Neurologic: CNII-XII intact, moves all extremities Results - Labs CBC & Chem 7: 07/13/18 04:37 07/13/18 04:37 Labs: Laboratory Last Values WBC 11.0 K/mm3 (4.5-11.0) 07/12/18 19:52 RBC 2.06 M/mm3 (3.65-5.03) L 07/12/18 19:52 Hgb 7.3 gm/dl (11.8-15.2) L 07/13/18 04:37 Hct 21.4 % (35.5-45.6) L 07/13/18 04:37 MCV 95 fl (84-94) H 07/12/18 19:52 MCH 32 pg (28-32) 07/12/18 19:52 MCHC 33 % (32-34) 07/12/18 19:52 RDW 15.7 % (13.2-15.2) H 07/12/18 19:52 Plt Count 208 K/mm3 (140-440) 07/12/18 19:52 Lymph % (Auto) 19.6 % (13.4-35.0) 07/12/18 19:52 [place] % (Auto) 7.4 % (0.0-7.3) H 07/12/18 19:52 Eos % (Auto) 2.8 % (0.0-4.3) 07/12/18 19:52 Baso % (Auto) 0.6 % (0.0-1.8) 07/12/18 19:52 Lymph # 2.2 K/mm3 (1.2-5.4) 07/12/18 19:52 [place] # 0.8 K/mm3 (0.0-0.8) 07/12/18 19:52 Eos # 0.3 K/mm3 (0.0-0.4) 07/12/18 19:52 Baso # 0.1 K/mm3 (0.0-0.1) 07/12/18 19:52 Seg Neutrophils % 69.6 % (40.0-70.0) 07/12/18 19:52 Seg Neutrophils # 7.7 K/mm3 (1.8-7.7) 07/12/18 19:52 PT 36.3 Sec. (12.2-14.9) H 07/12/18 20:28 INR 3.58 (0.87-1.13) H 07/12/18 20:28 APTT 81.0 Sec. (24.2-36.6) H* 07/12/18 20:28 Sodium 141 mmol/L (137-145) 07/13/18 04:37 Potassium 3.9 mmol/L (3.6-5.0) 07/13/18 04:37 Chloride 103.7 mmol/L (98-107) 07/13/18 04:37 Carbon Dioxide 22 mmol/L (22-30) 07/13/18 04:37 Anion Gap 19 mmol/L 07/13/18 04:37 BUN 33 mg/dL (9-20) H 07/13/18 04:37 Creatinine 1.4 mg/dL (0.8-1.5) 07/13/18 04:37 Estimated GFR 53 ml/min 07/13/18 04:37 BUN/Creatinine Ratio 24 % 07/13/18 04:37 Glucose 151 mg/dL (75-100) H 07/13/18 04:37 Calcium 8.6 mg/dL (8.4-10.2) 07/13/18 04:37 Total Bilirubin 1.00 mg/dL (0.1-1.2) 07/12/18 20:28 Direct Bilirubin 0.3 mg/dL (0-0.2) H 07/12/18 20:28 Indirect Bilirubin 0.7 mg/dL 07/12/18 20:28 AST 20 units/L (5-40) 07/12/18 20:28 ALT 15 units/L (7-56) 07/12/18 20:28 Alkaline Phosphatase 102 units/L (35-129) 07/12/18 20:28 Total Creatine Kinase 147 units/L (55-170) 07/13/18 04:37 CK-MB (CK-2) 5.1 ng/mL (0.0-4.0) H 07/13/18 04:37 CK-MB (CK-2) Rel Index 3.4 (0-4) 07/13/18 04:37 Troponin T < 0.010 ng/mL (0.00-0.029) 07/13/18 04:37 NT-Pro-B Natriuret Pep 2876 pg/mL (0-900) H 07/12/18 20:28 Total Protein 6.5 g/dL (6.3-8.2) 07/12/18 20:28 Albumin 4.2 g/dL (3.9-5) 07/12/18 20:28 Albumin/Globulin Ratio 1.8 % 07/12/18 20:28 Blood Type A POSITIVE 07/12/18 20:21 Antibody Screen Negative 07/12/18 20:21 Crossmatch See Detail 07/12/18 20:21
[2018-07-13] MEDS: CARDIZEM 100 MG in D5W 80 ML IV SCH (08:30)
[2018-07-13 09:35] LABS: INR 2.83 (0.87-1.13)
[2018-07-13] MEDS ORDERED: ASPIRIN PO SCH (10:00)
--- NOTE | 2018-07-13 10:21 | Gastroenterology Consultation ---
<LOVELY BRADFORD - Last Filed: 07/13/18 10:23> History of Present Illness - Reason for Consult Consult date: 07/13/18 GI bleed Requesting physician: MECCA FRANCIS - History of Present Illness Patient is a 52 y/o male with PMH of CHF, A-fib (on plavix with last dose yesterday;stopped coumadin 2 wks ago), and HTN who presented to ED with c/o palpitations, CP, and SOB. Upon admission, he was found to have A-fib w/ RVR and was placed on cardizem drip with HR now improved. Cardiology following. He was also found to be anemic with H/H 6.5/19.6 with reports of black stools ( stool occult positive) to which GI has been consulted. This morning patient was resting in bed w/o acute distress. He states he has been having black stools x approximately 2 months with last episode yesterday. No active signs of bleeding this am. No hematemesis or hematochezia. Takes Aleve daily. Admits to a past hx of ETOH abuse but has decreasing his intake to now only having on average 2 beers per day. No hx of GI bleeding, PUD, or liver disease. Plt count and LFTs WNL. No previous EGD. Reports CP has improved but is still having some mild SOB. Denies fever, wt loss, dizziness, abd pain, N/V, diarrhea, or constipation. Past History Past Medical History: atrial fib, arthritis, heart failure, hypertension, seizures, other (kidney stones) Past Surgical History: No surgical history Social history: other (alcohol use). denies: smoking Medications and Allergies Allergies Allergy/AdvReac Type Severity Reaction Status Date / Time morphine Allergy Unknown Verified 07/03/13 19:46 Home Medications Medication Instructions Recorded Confirmed Last Taken Type Folic Acid [Folvite] 1 mg PO QDAY #30 tablet 05/02/17 07/13/18 Unknown Rx Furosemide [Lasix TAB] 40 mg PO QDAY #30 tablet 05/02/17 07/13/18 Unknown Rx Ipratropium/Albuterol Sulfate 1 ampul IH BIDRT #30 ampul.neb 05/02/17 07/13/18 07/12/18 19:00 Rx [DUONEB *Not for PRN Use*] Thiamine [Vitamin B-1] 100 mg PO QDAY #30 tablet 05/02/17 07/13/18 07/12/18 07: 00 Rx Warfarin [Coumadin] 2 mg PO QDAY #30 tablet 05/02/17 07/13/18 07/05/18 Rx 5 mg dilTIAZem CD [Cardizem CD] 240 mg PO QDAY #30 capsule 05/02/17 07/13/18 Unknown Rx Metoprolol Xl [Metoprolol 25 mg PO BID 07/13/18 07/13/18 07/12/18 07:00 History SUCCINATE ER TAB] 25 mg Active Meds: Active Medications Acetaminophen (Tylenol) 650 mg PO Q4H PRN PRN Reason: Headache Aspirin (Aspirin) 325 mg PO QDAY DAV Hydromorphone HCl (Dilaudid) 1 mg IV Q4H PRN PRN Reason: Pain, Moderate (4-6) Last Admin: 07/13/18 06:39 Dose: 1 mg Diltiazem HCl 100 mg/ Dextrose 100 mls @ 5 mls/hr IV DIRECT DAV; Protocol Last Admin: 07/13/18 08:30 Dose: 5 mg/hr, 5 mls/hr Nitroglycerin (Nitrostat) 0.4 mg SL .Q5MIN PRN PRN Reason: Chest Pain Nitroglycerin (Nitro-Bid 2%) 0.5 inch TP QIDNTG DAV; Protocol Last Admin: 07/13/18 06:38 Dose: 0.5 inch Ondansetron HCl (Zofran) 4 mg IV Q8H PRN PRN Reason: Nausea And Vomiting Last Admin: 07/13/18 00:03 Dose: 4 mg Pantoprazole Sodium (Protonix) 40 mg IV BID [facility] Review of Systems - Review of Systems All systems: negative Cardiovascular: shortness of breath Gastrointestinal: melena Exam - Constitutional Vital Signs: Temp Pulse Resp BP Pulse Ox 97.5 F L 105 H 15 134/93 100 07/13/18 08:00 07/13/18 09:00 07/13/18 09:00 07/13/18 09:00 07/13/18 09:00 General appearance: no acute distress - EENT Eyes: PERRL, EOM intact ENT: hearing intact - Respiratory Respiratory: bilateral: CTA (anterior) - Cardiovascular Rhythm: other (tachycardia, irregular) - Gastrointestinal General gastrointestinal: Present: soft, non-tender, non-distended, normal bowel sounds - Neurologic Neurological: alert and oriented x3 - Labs CBC & Chem 7: 07/13/18 04:37 07/13/18 04:37 Lab Results: Laboratory Results - last 24 hr 07/12/18 07/12/18 07/12/18 19:52 19:52 20:21 WBC 11.0 RBC 2.06 L Hgb 6.5 L Hct 19.6 L* MCV 95 H MCH 32 MCHC 33 RDW 15.7 H Plt Count 208 Lymph % (Auto) 19.6 [place] % (Auto) 7.4 H Eos % (Auto) 2.8 Baso % (Auto) 0.6 Lymph # 2.2 [place] # 0.8 Eos # 0.3 Baso # 0.1 Seg Neutrophils % 69.6 Seg Neutrophils # 7.7 PT INR APTT Sodium 140 Potassium 3.7 Chloride 100.9 Carbon Dioxide 23 Anion Gap 20 BUN 39 H Creatinine 1.6 H Estimated GFR 45 BUN/Creatinine Ratio 24 Glucose 168 H Calcium 8.8 Magnesium Total Bilirubin Direct Bilirubin Indirect Bilirubin AST ALT Alkaline Phosphatase Total Creatine Kinase CK-MB (CK-2) CK-MB (CK-2) Rel Index Troponin T < 0.010 NT-Pro-B Natriuret Pep Total Protein Albumin Albumin/Globulin Ratio Blood Type A POSITIVE Antibody Screen Negative Crossmatch See Detail 07/12/18 07/12/18 07/12/18 20:28 20:28 23:39 WBC RBC Hgb Hct MCV MCH MCHC RDW Plt Count Lymph % (Auto) [place] % (Auto) Eos % (Auto) Baso % (Auto) Lymph # [place] # Eos # Baso # Seg Neutrophils % Seg Neutrophils # PT 36.3 H INR 3.58 H APTT 81.0 H* Sodium Potassium Chloride Carbon Dioxide Anion Gap BUN Creatinine Estimated GFR BUN/Creatinine Ratio Glucose Calcium Magnesium Total Bilirubin 1.00 Direct Bilirubin 0.3 H Indirect Bilirubin 0.7 AST 20 ALT 15 Alkaline Phosphatase 102 Total Creatine Kinase CK-MB (CK-2) CK-MB (CK-2) Rel Index Troponin T < 0.010 NT-Pro-B Natriuret Pep 2876 H Total Protein 6.5 Albumin 4.2 Albumin/Globulin Ratio 1.8 Blood Type Antibody Screen Crossmatch 07/13/18 07/13/18 07/13/18 02:09 02:09 02:09 WBC RBC Hgb 7.4 L Hct 22.7 L MCV MCH MCHC RDW Plt Count Lymph % (Auto) [place] % (Auto) Eos % (Auto) Baso % (Auto) Lymph # [place] # Eos # Baso # Seg Neutrophils % Seg Neutrophils # PT INR APTT Sodium Potassium Chloride Carbon Dioxide Anion Gap BUN Creatinine Estimated GFR BUN/Creatinine Ratio Glucose Calcium Magnesium Total Bilirubin Direct Bilirubin Indirect Bilirubin AST ALT Alkaline Phosphatase Total Creatine Kinase 146 CK-MB (CK-2) 4.8 H CK-MB (CK-2) Rel Index 3.2 Troponin T < 0.010 < 0.010 NT-Pro-B Natriuret Pep Total Protein Albumin Albumin/Globulin Ratio Blood Type Antibody Screen Crossmatch 07/13/18 07/13/18 07/13/18 04:37 04:37 04:37 WBC RBC Hgb 7.3 L Hct 21.4 L MCV MCH MCHC RDW Plt Count Lymph % (Auto) [place] % (Auto) Eos % (Auto) Baso % (Auto) Lymph # [place] # Eos # Baso # Seg Neutrophils % Seg Neutrophils # PT INR APTT Sodium 141 Potassium 3.9 Chloride 103.7 Carbon Dioxide 22 Anion Gap 19 BUN 33 H Creatinine 1.4 Estimated GFR 53 BUN/Creatinine Ratio 24 Glucose 151 H Calcium 8.6 Magnesium 1.80 Total Bilirubin Direct Bilirubin Indirect Bilirubin AST ALT Alkaline Phosphatase Total Creatine Kinase 147 CK-MB (CK-2) 5.1 H CK-MB (CK-2) Rel Index 3.4 Troponin T < 0.010 NT-Pro-B Natriuret Pep Total Protein Albumin Albumin/Globulin Ratio Blood Type Antibody Screen Crossmatch 07/13/18 09:10 WBC RBC Hgb Hct MCV MCH MCHC RDW Plt Count Lymph % (Auto) [place] % (Auto) Eos % (Auto) Baso % (Auto) Lymph # [place] # Eos # Baso # Seg Neutrophils % Seg Neutrophils # PT 30.3 H INR 2.83 H APTT Sodium Potassium Chloride Carbon Dioxide Anion Gap BUN Creatinine Estimated GFR BUN/Creatinine Ratio Glucose Calcium Magnesium Total Bilirubin Direct Bilirubin Indirect Bilirubin AST ALT Alkaline Phosphatase Total Creatine Kinase CK-MB (CK-2) CK-MB (CK-2) Rel Index Troponin T NT-Pro-B Natriuret Pep Total Protein Albumin Albumin/Globulin Ratio Blood Type Antibody Screen Crossmatch Assessment and Plan 1.anemia/GI bleed 2.melena -INR 2.83-trending down -HGB 7.3- s/p transfusion 1 unit PRBCs -continue to monitor H/H and transfuse as needed -hold blood thinning medications -currently HD stable -patient reports melena x 2 months with last episode yesterday- no active signs of bleeding this am -etiology unclear- possible ulcer vs other -recommend EGD in am once INR <2 (will be available for emergent EGD if needed) -okay for clears today then NPO after MN -continue PPI drip and supportive care -will follow 2.A-fib w/ RVR -on cardizem drip -cardiology following <ANDRESSA OLMEDO - Last Filed: 07/13/18 16:09> Medications and Allergies Active Meds: Active Medications Acetaminophen (Tylenol) 650 mg PO Q4H PRN PRN Reason: Headache Hydromorphone HCl (Dilaudid) 1 mg IV Q4H PRN PRN Reason: Pain, Moderate (4-6) Last Admin: 07/13/18 13:29 Dose: 1 mg Diltiazem HCl 100 mg/ Dextrose 100 mls @ 5 mls/hr IV DIRECT DAV; Protocol Last Admin: 07/13/18 08:30 Dose: 5 mg/hr, 5 mls/hr Nitroglycerin (Nitrostat) 0.4 mg SL .Q5MIN PRN PRN Reason: Chest Pain Nitroglycerin (Nitro-Bid 2%) 0.5 inch TP QIDNTG [facility]; Protocol Last Admin: 07/13/18 15:29 Dose: 0.5 inch Nitroglycerin (Nitro-Bid 2%) 0.5 inch TP BIDNTG DAV; Protocol Last Admin: 07/13/18 15:30 Dose: Not Given Ondansetron HCl (Zofran) 4 mg IV Q8H PRN PRN Reason: Nausea And Vomiting Last Admin: 07/13/18 00:03 Dose: 4 mg Pantoprazole Sodium (Protonix) 40 mg IV BID DAV Last Admin: 07/13/18 10:44 Dose: 40 mg Exam - Constitutional Vital Signs: Temp Pulse Resp BP Pulse Ox 97.9 F 104 H 5 L 133/86 99 07/13/18 12:00 07/13/18 15:29 07/13/18 15:11 07/13/18 15:29 07/13/18 15:11 - Labs CBC & Chem 7: 07/13/18 12:36 07/13/18 04:37 Lab Results: Laboratory Results - last 24 hr 07/12/18 07/12/18 07/12/18 19:52 19:52 20:21 WBC 11.0 RBC 2.06 L Hgb 6.5 L Hct 19.6 L* MCV 95 H MCH 32 MCHC 33 RDW 15.7 H Plt Count 208 Lymph % (Auto) 19.6 [place] % (Auto) 7.4 H Eos % (Auto) 2.8 Baso % (Auto) 0.6 Lymph # 2.2 [place] # 0.8 Eos # 0.3 Baso # 0.1 Seg Neutrophils % 69.6 Seg Neutrophils # 7.7 PT INR APTT Sodium 140 Potassium 3.7 Chloride 100.9 Carbon Dioxide 23 Anion Gap 20 BUN 39 H Creatinine 1.6 H Estimated GFR 45 BUN/Creatinine Ratio 24 Glucose 168 H Calcium 8.8 Magnesium Total Bilirubin Direct Bilirubin Indirect Bilirubin AST ALT Alkaline Phosphatase Total Creatine Kinase CK-MB (CK-2) CK-MB (CK-2) Rel Index Troponin T < 0.010 NT-Pro-B Natriuret Pep Total Protein Albumin Albumin/Globulin Ratio Blood Type A POSITIVE Antibody Screen Negative Crossmatch See Detail 07/12/18 07/12/18 07/12/18 20:28 20:28 23:39 WBC RBC Hgb Hct MCV MCH MCHC RDW Plt Count Lymph % (Auto) [place] % (Auto) Eos % (Auto) Baso % (Auto) Lymph # [place] # Eos # Baso # Seg Neutrophils % Seg Neutrophils # PT 36.3 H INR 3.58 H APTT 81.0 H* Sodium Potassium Chloride Carbon Dioxide Anion Gap BUN Creatinine Estimated GFR BUN/Creatinine Ratio Glucose Calcium Magnesium Total Bilirubin 1.00 Direct Bilirubin 0.3 H Indirect Bilirubin 0.7 AST 20 ALT 15 Alkaline Phosphatase 102 Total Creatine Kinase CK-MB (CK-2) CK-MB (CK-2) Rel Index Troponin T < 0.010 NT-Pro-B Natriuret Pep 2876 H Total Protein 6.5 Albumin 4.2 Albumin/Globulin Ratio 1.8 Blood Type Antibody Screen Crossmatch 07/13/18 07/13/18 07/13/18 02:09 02:09 02:09 WBC RBC Hgb 7.4 L Hct 22.7 L MCV MCH MCHC RDW Plt Count Lymph % (Auto) [place] % (Auto) Eos % (Auto) Baso % (Auto) Lymph # [place] # Eos # Baso # Seg Neutrophils % Seg Neutrophils # PT INR APTT Sodium Potassium Chloride Carbon Dioxide Anion Gap BUN Creatinine Estimated GFR BUN/Creatinine Ratio Glucose Calcium Magnesium Total Bilirubin Direct Bilirubin Indirect Bilirubin AST ALT Alkaline Phosphatase Total Creatine Kinase 146 CK-MB (CK-2) 4.8 H CK-MB (CK-2) Rel Index 3.2 Troponin T < 0.010 < 0.010 NT-Pro-B Natriuret Pep Total Protein Albumin Albumin/Globulin Ratio Blood Type Antibody Screen Crossmatch 07/13/18 07/13/18 07/13/18 04:37 04:37 04:37 WBC RBC Hgb 7.3 L Hct 21.4 L MCV MCH MCHC RDW Plt Count Lymph % (Auto) [place] % (Auto) Eos % (Auto) Baso % (Auto) Lymph # [place] # Eos # Baso # Seg Neutrophils % Seg Neutrophils # PT INR APTT Sodium 141 Potassium 3.9 Chloride 103.7 Carbon Dioxide 22 Anion Gap 19 BUN 33 H Creatinine 1.4 Estimated GFR 53 BUN/Creatinine Ratio 24 Glucose 151 H Calcium 8.6 Magnesium 1.80 Total Bilirubin Direct Bilirubin Indirect Bilirubin AST ALT Alkaline Phosphatase Total Creatine Kinase 147 CK-MB (CK-2) 5.1 H CK-MB (CK-2) Rel Index 3.4 Troponin T < 0.010 NT-Pro-B Natriuret Pep Total Protein Albumin Albumin/Globulin Ratio Blood Type Antibody Screen Crossmatch 07/13/18 07/13/18 09:10 12:36 WBC RBC Hgb 7.4 L Hct 22.5 L MCV MCH MCHC RDW Plt Count Lymph % (Auto) [place] % (Auto) Eos % (Auto) Baso % (Auto) Lymph # [place] # Eos # Baso # Seg Neutrophils % Seg Neutrophils # PT 30.3 H INR 2.83 H APTT Sodium Potassium Chloride Carbon Dioxide Anion Gap BUN Creatinine Estimated GFR BUN/Creatinine Ratio Glucose Calcium Magnesium Total Bilirubin Direct Bilirubin Indirect Bilirubin AST ALT Alkaline Phosphatase Total Creatine Kinase CK-MB (CK-2) CK-MB (CK-2) Rel Index Troponin T NT-Pro-B Natriuret Pep Total Protein Albumin Albumin/Globulin Ratio Blood Type Antibody Screen Crossmatch Assessment and Plan Pt seen and examined. Agree with note above. Pt in afib with rvr, also found to have severe anemia and reportedly black stools prior to admission. No signs of active bleeding. INR supratherapeutic. Will tentatively plan for EGD tomorrow if INR around 2 or less unless urgently indicated. cont IV PPI.
[2018-07-13] MEDS: PROTONIX IV SCH ×2 (10:44→23:03)
--- NOTE | 2018-07-13 11:25 | Consultation ---
History of Present Illness Consult date: 07/13/18 Requesting physician: JADIEL SAPP Consult reason: atrial fibrillation History of present illness: The patient has a history of permanent atrial fibrillation which is controlled on diltiazem at home. He presents this time with a two-month history of melanotic stools. He also complains of chronic exertional dyspnea which became more prominent over the past 5 days. In addition, he has been experiencing intermittent substernal chest tightness with exertion for the past 5 days. He has no orthopnea. He claims that his Coumadin was held by his PMD 1 week ago due to elevated INR. Past History Past Medical History: atrial fib (permanent.), hypertension, hyperlipidemia, other (echocardiogram performed in March 2017 revealed an ejection fraction of 45 %.) Past Surgical History: No surgical history Social history: (he has 2 children), alcohol abuse. denies: smoking Family history: other (his mother has a history of atrial fibrillation.) Medications and Allergies Allergies Allergy/AdvReac Type Severity Reaction Status Date / Time morphine Allergy Unknown Verified 07/03/13 19:46 Home Medications Medication Instructions Recorded Confirmed Last Taken Type Folic Acid [Folvite] 1 mg PO QDAY #30 tablet 05/02/17 07/13/18 Unknown Rx Furosemide [Lasix TAB] 40 mg PO QDAY #30 tablet 05/02/17 07/13/18 Unknown Rx Ipratropium/Albuterol Sulfate 1 ampul IH BIDRT #30 ampul.neb 05/02/17 07/13/18 07/12/18 19:00 Rx [DUONEB *Not for PRN Use*] Thiamine [Vitamin B-1] 100 mg PO QDAY #30 tablet 05/02/17 07/13/18 07/12/18 07: 00 Rx Warfarin [Coumadin] 2 mg PO QDAY #30 tablet 05/02/17 07/13/18 07/05/18 Rx 5 mg dilTIAZem CD [Cardizem CD] 240 mg PO QDAY #30 capsule 05/02/17 07/13/18 Unknown Rx Metoprolol Xl [Metoprolol 25 mg PO BID 07/13/18 07/13/18 07/12/18 07:00 History SUCCINATE ER TAB] 25 mg Active Meds: Active Medications Acetaminophen (Tylenol) 650 mg PO Q4H PRN PRN Reason: Headache Aspirin (Aspirin) 325 mg PO QDAY [facility] Last Admin: 07/13/18 10:47 Dose: 325 mg Hydromorphone HCl (Dilaudid) 1 mg IV Q4H PRN PRN Reason: Pain, Moderate (4-6) Last Admin: 07/13/18 06:39 Dose: 1 mg Diltiazem HCl 100 mg/ Dextrose 100 mls @ 5 mls/hr IV DIRECT DAV; Protocol Last Admin: 07/13/18 08:30 Dose: 5 mg/hr, 5 mls/hr Nitroglycerin (Nitrostat) 0.4 mg SL .Q5MIN PRN PRN Reason: Chest Pain Nitroglycerin (Nitro-Bid 2%) 0.5 inch TP QIDNTG [facility]; Protocol Last Admin: 07/13/18 10:43 Dose: 0.5 inch Ondansetron HCl (Zofran) 4 mg IV Q8H PRN PRN Reason: Nausea And Vomiting Last Admin: 07/13/18 00:03 Dose: 4 mg Pantoprazole Sodium (Protonix) 40 mg IV BID [facility] Last Admin: 07/13/18 10:44 Dose: 40 mg Review of Systems Constitutional: no fever, no chills Ears, nose, mouth and throat: no ear pain, no ear discharge, no sore throat Cardiovascular: chest pain, dyspnea on exertion, no orthopnea, no palpitations Respiratory: dyspnea on exertion, no cough, no hemoptysis Gastrointestinal: no abdominal pain, no nausea, no vomiting, no diarrhea, no constipation Genitourinary Male: no dysuria, no urinary frequency Rectal: other (melanotic stools), no pain Musculoskeletal: no neck pain, no myalgias Integumentary: no rash, no pruritis Neurological: no weakness, no parathesias, no headaches Endocrine: no cold intolerance, no heat intolerance Hematologic/Lymphatic: no easy bruising Allergic/Immunologic: no urticaria, no wheezing Physical Examination Vital Signs Last Vital Signs Temp 97.5 F L 07/13/18 08:00 Pulse 97 H 07/13/18 11:00 Resp 12 07/13/18 11:00 BP 126/82 07/13/18 11:00 Pulse Ox 100 07/13/18 11:00 General appearance: no acute distress HEENT: Positive: EOMI, Pallor, Normocephaly, Mucus Membranes Moist Neck: Positive: neck supple, trachea midline Cardiac: Positive: irregularly irregular, S1/S2 Lungs: Positive: clear to auscultation Neuro: Positive: Grossly Intact Abdomen: Positive: Soft, Active Bowel Sounds. Negative: Tender Skin: Positive: Clear. Negative: Rash Musculoskeletal: Normal Range of Motion Extremities: Present: normal. Absent: edema Results 07/13/18 04:37 07/13/18 04:37 Cardiac Enzymes 07/12/18 07/13/18 07/13/18 Range/Units 20:28 02:09 04:37 AST 20 (5-40) units/L CK-MB (CK-2) 4.8 H 5.1 H (0.0-4.0) ng/mL Coagulation 07/12/18 07/13/18 Range/Units 20:28 09:10 PT 36.3 H 30.3 H (12.2-14.9) Sec. INR 3.58 H 2.83 H (0.87-1.13) APTT 81.0 H* (24.2-36.6) Sec. CBC 07/12/18 07/13/18 07/13/18 Range/Units 19:52 02:09 04:37 WBC 11.0 (4.5-11.0) K/mm3 RBC 2.06 L (3.65-5.03) M/mm3 Hgb 6.5 L 7.4 L 7.3 L (11.8-15.2) gm/dl Hct 19.6 L* 22.7 L 21.4 L (35.5-45.6) % Plt Count 208 (140-440) K/mm3 Lymph # 2.2 (1.2-5.4) K/mm3 [place] # 0.8 (0.0-0.8) K/mm3 Eos # 0.3 (0.0-0.4) K/mm3 Baso # 0.1 (0.0-0.1) K/mm3 Comprehensive Metabolic Panel 07/12/18 07/12/18 07/13/18 Range/Units 19:52 20:28 04:37 Sodium 140 141 (137-145) mmol/L Potassium 3.7 3.9 (3.6-5.0) mmol/L Chloride 100.9 103.7 (98-107) mmol/L Carbon Dioxide 23 22 (22-30) mmol/L BUN 39 H 33 H (9-20) mg/dL Creatinine 1.6 H 1.4 (0.8-1.5) mg/dL Glucose 168 H 151 H (75-100) mg/dL Calcium 8.8 8.6 (8.4-10.2) mg/dL Direct Bilirubin 0.3 H (0-0.2) mg/dL Indirect Bilirubin 0.7 mg/dL AST 20 (5-40) units/L ALT 15 (7-56) units/L Alkaline Phosphatase 102 (35-129) units/L Total Protein 6.5 (6.3-8.2) g/dL Albumin 4.2 (3.9-5) g/dL - Imaging and Cardiology EKG: report reviewed EKG interpretations - Telemetry EKG Rhythm: Atrial Fibrillation (with RVR) - EKG Supraventricular dysrhythmia: atrial fibrillation (with RVR) Assessment and Plan PRBC transfusion to optimize his H&H. Obtain echocardiogram. Topical nitrates. Continue IV Cardizem drip for rate control while NPO. He may proceed with endoscopy from a cardiac standpoint. Anticoagulation may be reversed as necessary. - Patient Problems (1) GI bleed Current Visit: Yes Status: Acute (2) Atrial fibrillation with rapid ventricular response Current Visit: Yes Status: Acute (3) Symptomatic anemia Current Visit: Yes Status: Acute (4) Chest pain Current Visit: Yes Status: Acute (5) Permanent atrial fibrillation Current Visit: Yes Status: Chronic (6) HTN (hypertension) Current Visit: Yes Status: Chronic Qualifiers: Hypertension type: essential hypertension Qualified Code(s): I10 - Essential (primary) hypertension (7) Diabetes mellitus Current Visit: Yes Status: Acute Qualifiers: Diabetes mellitus type: type 2 (8) Exertional dyspnea Current Visit: Yes Status: Acute
[2018-07-13 13:04] LABS: Hematocrit 22.5 % (35.5-45.6); Hemoglobin 7.4 gm/dl (11.8-15.2)
--- NOTE | 2018-07-13 13:57 | Consultation ---
History of Present Illness - Reason for Consult Consult date: 07/13/18 Afib with RVR and possible GI bleed Requesting physician: IRAJ ESTEBAN - History of Present Illness 52 y/o male, obese with known Afib on coumadin and plavix and aspirin admitted with afib with RVR and found to be anemic. Rate currently controlled on IV dilt and now being evaluated by GI. Complains of black stools. Also does drink daily. Past History Past Medical History: atrial fib (permanent.), hypertension, hyperlipidemia, other (echocardiogram performed in March 2017 revealed an ejection fraction of 45 %.) Past Surgical History: No surgical history Social history: (he has 2 children), alcohol abuse. denies: smoking Family history: other (his mother has a history of atrial fibrillation.) Medications and Allergies Allergies Allergy/AdvReac Type Severity Reaction Status Date / Time morphine Allergy Unknown Verified 07/03/13 19:46 Home Medications Medication Instructions Recorded Confirmed Last Taken Type Folic Acid [Folvite] 1 mg PO QDAY #30 tablet 05/02/17 07/13/18 Unknown Rx Furosemide [Lasix TAB] 40 mg PO QDAY #30 tablet 05/02/17 07/13/18 Unknown Rx Ipratropium/Albuterol Sulfate 1 ampul IH BIDRT #30 ampul.neb 05/02/17 07/13/18 07/12/18 19:00 Rx [DUONEB *Not for PRN Use*] Thiamine [Vitamin B-1] 100 mg PO QDAY #30 tablet 05/02/17 07/13/18 07/12/18 07: 00 Rx Warfarin [Coumadin] 2 mg PO QDAY #30 tablet 05/02/17 07/13/18 07/05/18 Rx 5 mg dilTIAZem CD [Cardizem CD] 240 mg PO QDAY #30 capsule 05/02/17 07/13/18 Unknown Rx Metoprolol Xl [Metoprolol 25 mg PO BID 07/13/18 07/13/18 07/12/18 07:00 History SUCCINATE ER TAB] 25 mg Active Meds: Active Medications Acetaminophen (Tylenol) 650 mg PO Q4H PRN PRN Reason: Headache Hydromorphone HCl (Dilaudid) 1 mg IV Q4H PRN PRN Reason: Pain, Moderate (4-6) Last Admin: 07/13/18 13:29 Dose: 1 mg Diltiazem HCl 100 mg/ Dextrose 100 mls @ 5 mls/hr IV DIRECT DAV; Protocol Last Admin: 07/13/18 08:30 Dose: 5 mg/hr, 5 mls/hr Nitroglycerin (Nitrostat) 0.4 mg SL .Q5MIN PRN PRN Reason: Chest Pain Nitroglycerin (Nitro-Bid 2%) 0.5 inch TP QIDNTG DAV; Protocol Last Admin: 07/13/18 10:43 Dose: 0.5 inch Nitroglycerin (Nitro-Bid 2%) 0.5 inch TP BIDNTG DAV; Protocol Ondansetron HCl (Zofran) 4 mg IV Q8H PRN PRN Reason: Nausea And Vomiting Last Admin: 07/13/18 00:03 Dose: 4 mg Pantoprazole Sodium (Protonix) 40 mg IV BID DAV Last Admin: 07/13/18 10:44 Dose: 40 mg Review of Systems All systems: negative Exam - Constitutional Vitals: Temp Pulse Resp BP Pulse Ox 97.9 F 99 H 8 L 139/84 100 07/13/18 12:00 07/13/18 13:10 07/13/18 13:10 07/13/18 13:10 07/13/18 13:10 Results - Labs CBC & Chem 7: 07/13/18 12:36 07/13/18 04:37 Labs: Abnormal lab results 07/12/18 07/12/18 07/12/18 Range/Units 19:52 19:52 20:21 RBC 2.06 L (3.65-5.03) M/mm3 Hgb 6.5 L (11.8-15.2) gm/dl Hct 19.6 L* (35.5-45.6) % MCV 95 H (84-94) fl RDW 15.7 H (13.2-15.2) % [place] % (Auto) 7.4 H (0.0-7.3) % PT (12.2-14.9) Sec. INR (0.87-1.13) APTT (24.2-36.6) Sec. BUN 39 H (9-20) mg/dL Creatinine 1.6 H (0.8-1.5) mg/dL Glucose 168 H (75-100) mg/dL Direct Bilirubin (0-0.2) mg/dL CK-MB (CK-2) (0.0-4.0) ng/mL NT-Pro-B Natriuret Pep (0-900) pg/mL Crossmatch See Detail 07/12/18 07/12/18 07/13/18 Range/Units 20:28 20:28 02:09 RBC (3.65-5.03) M/mm3 Hgb 7.4 L (11.8-15.2) gm/dl Hct 22.7 L (35.5-45.6) % MCV (84-94) fl RDW (13.2-15.2) % [place] % (Auto) (0.0-7.3) % PT 36.3 H (12.2-14.9) Sec. INR 3.58 H (0.87-1.13) APTT 81.0 H* (24.2-36.6) Sec. BUN (9-20) mg/dL Creatinine (0.8-1.5) mg/dL Glucose (75-100) mg/dL Direct Bilirubin 0.3 H (0-0.2) mg/dL CK-MB (CK-2) (0.0-4.0) ng/mL NT-Pro-B Natriuret Pep 2876 H (0-900) pg/mL Crossmatch 07/13/18 07/13/18 07/13/18 Range/Units 02:09 04:37 04:37 RBC (3.65-5.03) M/mm3 Hgb 7.3 L (11.8-15.2) gm/dl Hct 21.4 L (35.5-45.6) % MCV (84-94) fl RDW (13.2-15.2) % [place] % (Auto) (0.0-7.3) % PT (12.2-14.9) Sec. INR (0.87-1.13) APTT (24.2-36.6) Sec. BUN 33 H (9-20) mg/dL Creatinine (0.8-1.5) mg/dL Glucose 151 H (75-100) mg/dL Direct Bilirubin (0-0.2) mg/dL CK-MB (CK-2) 4.8 H 5.1 H (0.0-4.0) ng/mL NT-Pro-B Natriuret Pep (0-900) pg/mL Crossmatch 07/13/18 07/13/18 Range/Units 09:10 12:36 RBC (3.65-5.03) M/mm3 Hgb 7.4 L (11.8-15.2) gm/dl Hct 22.5 L (35.5-45.6) % MCV (84-94) fl RDW (13.2-15.2) % [place] % (Auto) (0.0-7.3) % PT 30.3 H (12.2-14.9) Sec. INR 2.83 H (0.87-1.13) APTT (24.2-36.6) Sec. BUN (9-20) mg/dL Creatinine (0.8-1.5) mg/dL Glucose (75-100) mg/dL Direct Bilirubin (0-0.2) mg/dL CK-MB (CK-2) (0.0-4.0) ng/mL NT-Pro-B Natriuret Pep (0-900) pg/mL Crossmatch - Imaging and Cardiology Chest x-ray: image reviewed (clear) Assessment and Plan 52 y/o male with afib with RVR and acute blood loss anemia thought secondary to GI bleed 1. Rate control per cards with IV dilt 2. Hold all anticoagulation until GI work up complete 3. NPO after midnight tomorrow for scope 4. Clear liquids today 5. COntinue ICU monitoring 6. Suggest CIWA protocol given history and daily drinking habits. CCT 31 minutes.
[2018-07-13] MEDS ORDERED: NACL 0.9% 500 ML 500 ML IV ONE (20:37)
[2018-07-14] MEDS: DILAUDID IV PRN ×4 (01:35→20:47)
[2018-07-14] MEDS: CARDIZEM 100 MG in D5W 80 ML IV SCH ×2 (01:39→20:49)
[2018-07-14] MEDS ORDERED: NACL 0.9% 500 ML 500 ML ONE (01:41)
[2018-07-14 05:01] LABS: Basophils # (Auto) 0.1 K/mm3 (0.0-0.1); Basophils % (Auto) 0.5 % (0.0-1.8); Eosinophils # (Auto) 0.3 K/mm3 (0.0-0.4); Eosinophils % (Auto) 3.1 % (0.0-4.3); Hematocrit 21.3 % (35.5-45.6); Hemoglobin 7.2 gm/dl (11.8-15.2); Lymphocytes # (Auto) 1.3 K/mm3 (1.2-5.4); Lymphocytes % (Auto) 12.8 % (13.4-35.0); Mean Corpuscular HGB Conc 34 % (32-34); Mean Corpuscular Hemoglobin 32 pg (28-32); Mean Corpuscular Volume 95 fl (84-94); Monocytes # (Auto) 0.9 K/mm3 (0.0-0.8); Monocytes % (Auto) 8.7 % (0.0-7.3); Platelet Count 204 K/mm3 (140-440); Red Blood Count 2.25 M/mm3 (3.65-5.03); Red Cell Distribution Width 16.3 % (13.2-15.2)
[2018-07-14 05:16] LABS: INR 2.46 (0.87-1.13)
[2018-07-14 05:38] LABS: Albumin 3.9 g/dL (3.9-5); Calcium 8.7 mg/dL (8.4-10.2)
[2018-07-14] MEDS: NITRO-BID 2% TP SCH ×3 (07:16→14:10)
--- NOTE | 2018-07-14 09:02 | Progress Note ---
Assessment and Plan Cont current cardiac management. Plan for conversion of IV to PO medications once enteral intake is resumed. PRBC transfusion to optimize his H&H. He may proceed with endoscopy from a cardiac standpoint. Anticoagulation may be reversed as necessary. The patient has been seen in conjunction with Dr. Miner who agrees with the assessment and plan of care. - Patient Problems (1) GI bleed Current Visit: Yes Status: Acute (2) Atrial fibrillation with rapid ventricular response Current Visit: Yes Status: Acute (3) Symptomatic anemia Current Visit: Yes Status: Acute (4) Chest pain Current Visit: Yes Status: Acute (5) Permanent atrial fibrillation Current Visit: Yes Status: Chronic (6) HTN (hypertension) Current Visit: Yes Status: Chronic Qualifiers: Hypertension type: essential hypertension Qualified Code(s): I10 - Essential (primary) hypertension (7) Diabetes mellitus Current Visit: Yes Status: Acute Qualifiers: Diabetes mellitus type: type 2 (8) Exertional dyspnea Current Visit: Yes Status: Acute Subjective Date of service: 07/14/18 Principal diagnosis: GI bleed; AFib Interval history: pt resting comfortably in bed, no current cardiac complaints. awaiting endoscopy today. tele reviewed - in AFib with mostly CVR, cardizem gtt infusing. Objective Last Vital Signs Temp 98.2 F 07/14/18 04:00 Pulse 107 H 07/14/18 07:16 Resp 8 L 07/14/18 06:41 BP 151/77 07/14/18 07:16 Pulse Ox 100 07/14/18 06:41 - Physical Examination General: No Apparent Distress HEENT: Positive: EOMI, Pallor, Normocephaly, Mucus Membranes Moist Neck: Positive: neck supple, trachea midline Cardiac: Positive: irregularly irregular, S1/S2 Lungs: Positive: Decreased Breath Sounds Neuro: Positive: Grossly Intact Abdomen: Positive: Soft, Active Bowel Sounds. Negative: Tender Skin: Positive: Clear. Negative: Rash Musculoskeletal: Normal Range of Motion Extremities: Present: normal. Absent: edema - Labs and Meds Cardiac Enzymes 07/14/18 Range/Units 04:38 AST 17 (5-40) units/L Coagulation 07/13/18 07/14/18 Range/Units 09:10 04:38 PT 30.3 H 28.3 H (12.2-14.9) Sec. INR 2.83 H 2.46 H (0.87-1.13) CBC 07/13/18 07/14/18 Range/Units 12:36 04:38 WBC 10.3 (4.5-11.0) K/mm3 RBC 2.25 L (3.65-5.03) M/mm3 Hgb 7.4 L 7.2 L (11.8-15.2) gm/dl Hct 22.5 L 21.3 L (35.5-45.6) % Plt Count 204 (140-440) K/mm3 Lymph # 1.3 (1.2-5.4) K/mm3 [place] # 0.9 H (0.0-0.8) K/mm3 Eos # 0.3 (0.0-0.4) K/mm3 Baso # 0.1 (0.0-0.1) K/mm3 Comprehensive Metabolic Panel 07/14/18 Range/Units 04:38 Sodium 137 (137-145) mmol/L Potassium 4.4 (3.6-5.0) mmol/L Chloride 100.5 (98-107) mmol/L Carbon Dioxide 27 (22-30) mmol/L BUN 25 H (9-20) mg/dL Creatinine 1.4 (0.8-1.5) mg/dL Glucose 134 H (75-100) mg/dL Calcium 8.7 (8.4-10.2) mg/dL AST 17 (5-40) units/L ALT 12 (7-56) units/L Alkaline Phosphatase 100 (35-129) units/L Total Protein 6.6 (6.3-8.2) g/dL Albumin 3.9 (3.9-5) g/dL - Imaging and Cardiology EKG: report reviewed Echo: report reviewed (07/13/2018: EF 50-55%, mild LVH, trace MR, trace TR) - Telemetry EKG Rhythm: Atrial Fibrillation
[2018-07-14] MEDS: PROTONIX IV SCH ×3 (11:01→21:04)
--- NOTE | 2018-07-14 11:39 | Gastroenterology Progress Note ---
Assessment and Plan 1. anemia - h/o anemia in the past to variable levels (similar levels in 2017 but in normal range earlier this year). reported dark stools prior to admission in setting of supratherapeutic INR. No signs of bleeding since admission; H/H stable. will hold off on endoscopy as no signs of overt bleeding , and inr 2.4 this morning. also remains in ICU on diltiazem drip. -cont IV PPI BID dosing -will hold off on endoscopy unless signs of overt bleeding. likely will need non-urgent egd/colonoscopy for anemia once INR in appropriate range given anticoagulation requirements and antiplatelet therapy however. will follow regarding timing of procedures 2. afib with rvr 3. ckd Subjective Date of service: 07/14/18 Principal diagnosis: GI bleed; AFib Interval history: pt seen and examined. no signs of overt gi bleeding since admission. h/h stable. Objective - Constitutional Vitals: Temp Pulse Resp BP Pulse Ox 98.4 F 100 H 6 L 121/91 100 07/14/18 08:00 07/14/18 09:21 07/14/18 09:21 07/14/18 09:21 07/14/18 10:00 General appearance: no acute distress - Respiratory Respiratory effort: normal Respiratory: bilateral: CTA - Cardiovascular Rhythm: irregularly irregular Heart Sounds: Present: S1 & S2 - Gastrointestinal General gastrointestinal: Present: soft, non-tender, non-distended - Neurologic Neurological: alert and oriented x3 - Labs CBC & Chem 7: 07/14/18 04:38 07/14/18 04:38 Labs: Laboratory Results - last 24 hr 07/12/18 07/13/18 07/14/18 20:21 12:36 04:38 WBC 10.3 RBC 2.25 L Hgb 7.4 L 7.2 L Hct 22.5 L 21.3 L MCV 95 H MCH 32 MCHC 34 RDW 16.3 H Plt Count 204 Lymph % (Auto) 12.8 L [place] % (Auto) 8.7 H Eos % (Auto) 3.1 Baso % (Auto) 0.5 Lymph # 1.3 [place] # 0.9 H Eos # 0.3 Baso # 0.1 Seg Neutrophils % 74.9 H Seg Neutrophils # 7.7 PT INR Sodium Potassium Chloride Carbon Dioxide Anion Gap BUN Creatinine Estimated GFR BUN/Creatinine Ratio Glucose Calcium Magnesium Total Bilirubin AST ALT Alkaline Phosphatase Total Protein Albumin Albumin/Globulin Ratio Blood Type A POSITIVE Antibody Screen Negative Crossmatch See Detail 07/14/18 07/14/18 04:38 04:38 WBC RBC Hgb Hct MCV MCH MCHC RDW Plt Count Lymph % (Auto) [place] % (Auto) Eos % (Auto) Baso % (Auto) Lymph # [place] # Eos # Baso # Seg Neutrophils % Seg Neutrophils # PT 28.3 H INR 2.46 H Sodium 137 Potassium 4.4 Chloride 100.5 Carbon Dioxide 27 Anion Gap 14 BUN 25 H Creatinine 1.4 Estimated GFR 53 BUN/Creatinine Ratio 18 Glucose 134 H Calcium 8.7 Magnesium 2.00 Total Bilirubin 1.30 H AST 17 ALT 12 Alkaline Phosphatase 100 Total Protein 6.6 Albumin 3.9 Albumin/Globulin Ratio 1.4 Blood Type Antibody Screen Crossmatch
--- NOTE | 2018-07-14 11:59 | Progress Note ---
Assessment and Plan 52 y/o male with afib with RVR and acute blood loss anemia thought secondary to GI bleed 1. Rate control per cards with IV dilt 2. Hold all anticoagulation until GI work up complete 3. No scope today, feed 4. Will ask cards about starting PO meds 5. COntinue ICU monitoring, but maybe ready for transfer out tomorrow if stable on PO rate control therapy 6. Suggest CIWA protocol given history and daily drinking habits. CCT 31 minutes. Subjective Date of service: 07/14/18 Principal diagnosis: GI bleed; AFib Interval history: GI not scoping today. INR remains elevated. Still on Dilt drip at 5 but rate is extremely variable. Otherwise no complaints. Objective - Constitutional Vitals: Vital Signs - 12hr 07/14/18 07/14/18 07/14/18 00:00 00:11 00:21 Temperature Pulse Rate 102 H 94 H 102 H Pulse Rate [ 100 H Apical] Respiratory 12 8 L 8 L Rate Blood Pressure 138/82 138/82 138/82 O2 Sat by Pulse 100 100 99 Oximetry 07/14/18 07/14/18 07/14/18 00:30 00:41 00:51 Temperature Pulse Rate 94 H 87 92 H Pulse Rate [ Apical] Respiratory 8 L 8 L 7 L Rate Blood Pressure 136/87 138/82 138/82 O2 Sat by Pulse 100 100 100 Oximetry 07/14/18 07/14/18 07/14/18 01:00 01:11 01:20 Temperature Pulse Rate 89 103 H 102 H Pulse Rate [ Apical] Respiratory 8 L 14 9 L Rate Blood Pressure 136/87 136/87 133/92 O2 Sat by Pulse 100 99 100 Oximetry 07/14/18 07/14/18 07/14/18 01:30 01:41 01:51 Temperature Pulse Rate 98 H 100 H 107 H Pulse Rate [ Apical] Respiratory 9 L 14 8 L Rate Blood Pressure 139/93 133/92 133/92 O2 Sat by Pulse 100 100 99 Oximetry 07/14/18 07/14/18 07/14/18 02:00 02:11 02:21 Temperature Pulse Rate 92 H 106 H 102 H Pulse Rate [ 100 H Apical] Respiratory 7 L 7 L 7 L Rate Blood Pressure 117/85 139/93 139/93 O2 Sat by Pulse 97 98 98 Oximetry 07/14/18 07/14/18 07/14/18 02:30 02:41 02:51 Temperature Pulse Rate 102 H 100 H 93 H Pulse Rate [ Apical] Respiratory 6 L 6 L 6 L Rate Blood Pressure 125/80 125/80 125/80 O2 Sat by Pulse 97 99 99 Oximetry 07/14/18 07/14/18 07/14/18 03:00 03:11 03:21 Temperature Pulse Rate 96 H 92 H 100 H Pulse Rate [ Apical] Respiratory 6 L 10 L 7 L Rate Blood Pressure 127/75 127/75 127/75 O2 Sat by Pulse 97 99 99 Oximetry 07/14/18 07/14/18 07/14/18 03:30 03:41 03:51 Temperature Pulse Rate 97 H 93 H 100 H Pulse Rate [ Apical] Respiratory 10 L 6 L 7 L Rate Blood Pressure 136/93 127/75 127/75 O2 Sat by Pulse 98 99 99 Oximetry 07/14/18 07/14/18 07/14/18 04:00 04:11 04:21 Temperature 98.2 F Pulse Rate 93 H 98 H 91 H Pulse Rate [ 100 H Apical] Respiratory 7 L 8 L 7 L Rate Blood Pressure 143/91 136/93 136/93 O2 Sat by Pulse 98 99 99 Oximetry 07/14/18 07/14/18 07/14/18 04:30 04:41 04:51 Temperature Pulse Rate 85 112 H 97 H Pulse Rate [ Apical] Respiratory 7 L 12 7 L Rate Blood Pressure 140/83 143/91 143/91 O2 Sat by Pulse 100 100 100 Oximetry 07/14/18 07/14/18 07/14/18 05:00 05:11 05:21 Temperature Pulse Rate 93 H 99 H 96 H Pulse Rate [ Apical] Respiratory 6 L 14 7 L Rate Blood Pressure 123/95 123/95 123/95 O2 Sat by Pulse 100 100 100 Oximetry 07/14/18 07/14/18 07/14/18 05:31 05:41 05:50 Temperature Pulse Rate 119 H 92 H 87 Pulse Rate [ Apical] Respiratory 18 7 L 6 L Rate Blood Pressure 143/66 143/66 123/95 O2 Sat by Pulse 98 100 100 Oximetry 07/14/18 07/14/18 07/14/18 06:00 06:11 06:21 Temperature Pulse Rate 95 H 99 H 87 Pulse Rate [ 100 H Apical] Respiratory 7 L 8 L 9 L Rate Blood Pressure 159/136 159/136 143/66 O2 Sat by Pulse 97 100 100 Oximetry 07/14/18 07/14/18 07/14/18 06:30 06:41 06:51 Temperature Pulse Rate 103 H 96 H 96 H Pulse Rate [ Apical] Respiratory 9 L 8 L 8 L Rate Blood Pressure 151/102 151/102 151/102 O2 Sat by Pulse 100 100 100 Oximetry 07/14/18 07/14/18 07/14/18 07:00 07:11 07:16 Temperature Pulse Rate 96 H 110 H 107 H Pulse Rate [ Apical] Respiratory 11 L 16 Rate Blood Pressure 149/92 149/92 151/77 O2 Sat by Pulse 100 100 Oximetry 07/14/18 07/14/18 07/14/18 07:21 07:31 07:41 Temperature Pulse Rate 109 H 110 H 128 H Pulse Rate [ Apical] Respiratory 11 L 8 L 16 Rate Blood Pressure 151/77 138/76 138/76 O2 Sat by Pulse 98 97 92 Oximetry 07/14/18 07/14/18 07/14/18 07:51 08:00 08:11 Temperature 98.4 F Pulse Rate 105 H 101 H 113 H Pulse Rate [ Apical] Respiratory 6 L 7 L 7 L Rate Blood Pressure 148/73 147/75 147/75 O2 Sat by Pulse 99 96 98 Oximetry 07/14/18 07/14/18 07/14/18 08:20 08:30 08:41 Temperature Pulse Rate 105 H 100 H 122 H Pulse Rate [ Apical] Respiratory 23 7 L 8 L Rate Blood Pressure 143/66 127/73 127/73 O2 Sat by Pulse 98 97 98 Oximetry 07/14/18 07/14/18 07/14/18 08:51 09:00 09:11 Temperature Pulse Rate 100 H 97 H 103 H Pulse Rate [ Apical] Respiratory 7 L 10 L 6 L Rate Blood Pressure 130/73 131/89 131/89 O2 Sat by Pulse 98 98 99 Oximetry 07/14/18 07/14/18 09:21 10:00 Temperature Pulse Rate 100 H Pulse Rate [ Apical] Respiratory 6 L Rate Blood Pressure 121/91 O2 Sat by Pulse 99 100 Oximetry - Labs CBC & Chem 7: 07/14/18 04:38 07/14/18 04:38 Labs: Abnormal lab results 07/12/18 07/13/18 07/14/18 Range/Units 20:21 12:36 04:38 RBC 2.25 L (3.65-5.03) M/mm3 Hgb 7.4 L 7.2 L (11.8-15.2) gm/dl Hct 22.5 L 21.3 L (35.5-45.6) % MCV 95 H (84-94) fl RDW 16.3 H (13.2-15.2) % Lymph % (Auto) 12.8 L (13.4-35.0) % [place] % (Auto) 8.7 H (0.0-7.3) % [place] # 0.9 H (0.0-0.8) K/mm3 Seg Neutrophils % 74.9 H (40.0-70.0) % PT (12.2-14.9) Sec. INR (0.87-1.13) BUN (9-20) mg/dL Glucose (75-100) mg/dL Total Bilirubin (0.1-1.2) mg/dL Crossmatch See Detail 07/14/18 07/14/18 Range/Units 04:38 04:38 RBC (3.65-5.03) M/mm3 Hgb (11.8-15.2) gm/dl Hct (35.5-45.6) % MCV (84-94) fl RDW (13.2-15.2) % Lymph % (Auto) (13.4-35.0) % [place] % (Auto) (0.0-7.3) % [place] # (0.0-0.8) K/mm3 Seg Neutrophils % (40.0-70.0) % PT 28.3 H (12.2-14.9) Sec. INR 2.46 H (0.87-1.13) BUN 25 H (9-20) mg/dL Glucose 134 H (75-100) mg/dL Total Bilirubin 1.30 H (0.1-1.2) mg/dL Crossmatch
--- NOTE | 2018-07-14 20:12 | Progress Note ---
Assessment and Plan Assessment and plan: --Severe anemia/acute blood loss; no new episodes of bleeding Secondary to coagulopathy, received 1 unit of PRBC transfusion Closely monitor H&H and transfuse additional PRBC --GI bleeding; secondary to coagulopathy Follow GI evaluation and recommendations --A. fib with rapid ventricular rate; Continue Cardizem drip, titrate heart rates to less than 100 Consults cardiology, supportive care --Coagulopathy/Coumadin toxicity; Patient's INR 3.58 upon admission, slowly trending down Closely monitor INR, vitamin K and FFP's if needed --Acute kidney injury; probably vasomotor nephropathy Slightly improved, closely monitor renal function and avoid nephrotoxins --Hypertension; moderate control Continue current antihypertensives and when necessary medications --DVT prophylaxis; SCDs Closely monitor the patient and adjust management as needed Consult and recommendations noted Plan of care reviewed with the patient and his nurse Critical care Time 40 minutes History Interval history: Patient seen and examined medical records reviewed Feels slightly better no new complaints No new episodes of bleeding, H&H low stable Remains A. fib with rapid ventricular rate on Cardizem drip Vital signs reviewed Hospitalist Physical - Constitutional Vitals: Temp Pulse Resp BP Pulse Ox 98.4 F 128 H 7 L 136/88 92 07/14/18 08:00 07/14/18 16:11 07/14/18 16:11 07/14/18 16:11 07/14/18 16:11 General appearance: Present: no acute distress, well-nourished, obese - EENT Eyes: Present: PERRL, EOM intact - Neck Neck: Present: supple, normal ROM - Respiratory Respiratory effort: normal Respiratory: bilateral: diminished, negative: rales, rhonchi - Cardiovascular Rhythm: regular Heart Sounds: Present: S1 & S2 - Extremities Extremities: no ischemia, No edema - Abdominal General gastrointestinal: soft, non-tender, non-distended, normal bowel sounds - Integumentary Integumentary: Present: clear, warm - Psychiatric Psychiatric: appropriate mood/affect, cooperative - Neurologic Neurologic: CNII-XII intact, moves all extremities Results - Labs CBC & Chem 7: 07/14/18 04:38 07/14/18 04:38 Labs: Laboratory Last Values WBC 10.3 K/mm3 (4.5-11.0) 07/14/18 04:38 RBC 2.25 M/mm3 (3.65-5.03) L 07/14/18 04:38 Hgb 7.2 gm/dl (11.8-15.2) L 07/14/18 04:38 Hct 21.3 % (35.5-45.6) L 07/14/18 04:38 MCV 95 fl (84-94) H 07/14/18 04:38 MCH 32 pg (28-32) 07/14/18 04:38 MCHC 34 % (32-34) 07/14/18 04:38 RDW 16.3 % (13.2-15.2) H 07/14/18 04:38 Plt Count 204 K/mm3 (140-440) 07/14/18 04:38 Lymph % (Auto) 12.8 % (13.4-35.0) L 07/14/18 04:38 [place] % (Auto) 8.7 % (0.0-7.3) H 07/14/18 04:38 Eos % (Auto) 3.1 % (0.0-4.3) 07/14/18 04:38 Baso % (Auto) 0.5 % (0.0-1.8) 07/14/18 04:38 Lymph # 1.3 K/mm3 (1.2-5.4) 07/14/18 04:38 [place] # 0.9 K/mm3 (0.0-0.8) H 07/14/18 04:38 Eos # 0.3 K/mm3 (0.0-0.4) 07/14/18 04:38 Baso # 0.1 K/mm3 (0.0-0.1) 07/14/18 04:38 Seg Neutrophils % 74.9 % (40.0-70.0) H 07/14/18 04:38 Seg Neutrophils # 7.7 K/mm3 (1.8-7.7) 07/14/18 04:38 PT 28.3 Sec. (12.2-14.9) H 07/14/18 04:38 INR 2.46 (0.87-1.13) H 07/14/18 04:38 APTT 81.0 Sec. (24.2-36.6) H* 07/12/18 20:28 Sodium 137 mmol/L (137-145) 07/14/18 04:38 Potassium 4.4 mmol/L (3.6-5.0) 07/14/18 04:38 Chloride 100.5 mmol/L (98-107) 07/14/18 04:38 Carbon Dioxide 27 mmol/L (22-30) 07/14/18 04:38 Anion Gap 14 mmol/L 07/14/18 04:38 BUN 25 mg/dL (9-20) H 07/14/18 04:38 Creatinine 1.4 mg/dL (0.8-1.5) 07/14/18 04:38 Estimated GFR 53 ml/min 07/14/18 04:38 BUN/Creatinine Ratio 18 % 07/14/18 04:38 Glucose 134 mg/dL (75-100) H 07/14/18 04:38 Calcium 8.7 mg/dL (8.4-10.2) 07/14/18 04:38 Magnesium 2.00 mg/dL (1.7-2.3) 07/14/18 04:38 Total Bilirubin 1.30 mg/dL (0.1-1.2) H 07/14/18 04:38 Direct Bilirubin 0.3 mg/dL (0-0.2) H 07/12/18 20:28 Indirect Bilirubin 0.7 mg/dL 07/12/18 20:28 AST 17 units/L (5-40) 07/14/18 04:38 ALT 12 units/L (7-56) 07/14/18 04:38 Alkaline Phosphatase 100 units/L (35-129) 07/14/18 04:38 Total Creatine Kinase 147 units/L (55-170) 07/13/18 04:37 CK-MB (CK-2) 5.1 ng/mL (0.0-4.0) H 07/13/18 04:37 CK-MB (CK-2) Rel Index 3.4 (0-4) 07/13/18 04:37 Troponin T < 0.010 ng/mL (0.00-0.029) 07/13/18 04:37 NT-Pro-B Natriuret Pep 2876 pg/mL (0-900) H 07/12/18 20:28 Total Protein 6.6 g/dL (6.3-8.2) 07/14/18 04:38 Albumin 3.9 g/dL (3.9-5) 07/14/18 04:38 Albumin/Globulin Ratio 1.4 % 07/14/18 04:38 Blood Type A POSITIVE 07/12/18 20:21 Antibody Screen Negative 07/12/18 20:21 Crossmatch See Detail 07/12/18 20:21
[2018-07-15] MEDS: DILAUDID IV PRN ×4 (02:27→20:23)
[2018-07-15 06:11] LABS: Basophils # (Auto) 0.1 K/mm3 (0.0-0.1); Basophils % (Auto) 0.6 % (0.0-1.8); Eosinophils # (Auto) 0.2 K/mm3 (0.0-0.4); Hematocrit 21.1 % (35.5-45.6); Hemoglobin 6.9 gm/dl (11.8-15.2); Lymphocytes # (Auto) 1.4 K/mm3 (1.2-5.4); Lymphocytes % (Auto) 12.9 % (13.4-35.0); Mean Corpuscular HGB Conc 33 % (32-34); Mean Corpuscular Hemoglobin 32 pg (28-32); Mean Corpuscular Volume 96 fl (84-94); Monocytes # (Auto) 1.3 K/mm3 (0.0-0.8); Monocytes % (Auto) 12.1 % (0.0-7.3); Platelet Count 205 K/mm3 (140-440); Red Blood Count 2.19 M/mm3 (3.65-5.03); Red Cell Distribution Width 17.5 % (13.2-15.2)
[2018-07-15 06:16] LABS: INR 2.52 (0.87-1.13)
[2018-07-15] MEDS: NITRO-BID 2% TP SCH ×2 (06:17→14:20)
[2018-07-15 06:18] LABS: Partial Thromboplastin Time 59.8 Sec. (24.2-36.6)
[2018-07-15 07:30] LABS: Albumin 3.9 g/dL (3.9-5); Calcium 8.7 mg/dL (8.4-10.2)
[2018-07-15] MEDS ORDERED: NACL 0.9% 1000 ML 1,000 ML IV SCH (08:00)
--- NOTE | 2018-07-15 09:22 | Progress Note ---
Assessment and Plan 52 y/o male with afib with RVR and acute blood loss anemia thought secondary to GI bleed 1. Will increase Dilt to 10 and see how patient's rate and BP will tolerate. 2. Hold all anticoagulation until GI work up complete 3. Need GI and Cards to discuss the INR. if they want to scope, we will likely need to reverse his INR. Questions is is it safe to do this. 4. If rate controlled and BP tolerates [address] on [id number] 5. COntinue ICU monitoring, but maybe ready for transfer out tomorrow if stable on PO rate control therapy 6. Suggest CIWA protocol given history and daily drinking habits. CCT 31 minutes. Subjective Date of service: 07/15/18 Principal diagnosis: GI bleed; AFib Interval history: Awake alert, still in fib and not rate controlled. INR went up this am. GI is holding on scope. Patient is in no distress. Remains on Dilt drip at 5. Objective - Constitutional Vitals: Vital Signs - 12hr 07/14/18 07/14/18 07/14/18 21:21 21:31 21:41 Temperature Pulse Rate 108 H 111 H 106 H Pulse Rate [ Apical] Pulse Rate [ Dorsalis Pedis] Respiratory 13 12 16 Rate Blood Pressure 118/70 147/81 118/70 O2 Sat by Pulse 98 94 96 Oximetry 07/14/18 07/14/18 07/14/18 21:51 22:00 22:11 Temperature Pulse Rate 101 H 101 H 110 H Pulse Rate [ 112 H Apical] Pulse Rate [ 112 H Dorsalis Pedis] Respiratory 19 9 L 10 L Rate Blood Pressure 124/88 135/90 135/90 O2 Sat by Pulse 94 91 93 Oximetry 07/14/18 07/14/18 07/14/18 22:21 22:30 22:41 Temperature Pulse Rate 108 H 97 H 101 H Pulse Rate [ Apical] Pulse Rate [ Dorsalis Pedis] Respiratory 8 L 13 12 Rate Blood Pressure 134/87 142/89 134/87 O2 Sat by Pulse 92 94 92 Oximetry 07/14/18 07/14/18 07/14/18 22:51 23:00 23:11 Temperature Pulse Rate 110 H 101 H 124 H Pulse Rate [ Apical] Pulse Rate [ Dorsalis Pedis] Respiratory 10 L 11 L 14 Rate Blood Pressure 129/88 130/94 130/94 O2 Sat by Pulse 80 L 96 97 Oximetry 07/14/18 07/14/18 07/14/18 23:21 23:30 23:41 Temperature Pulse Rate 113 H 103 H 91 H Pulse Rate [ Apical] Pulse Rate [ Dorsalis Pedis] Respiratory 12 11 L 9 L Rate Blood Pressure 144/88 147/81 147/81 O2 Sat by Pulse 94 97 94 Oximetry 07/14/18 07/14/18 07/15/18 23:51 23:53 00:00 Temperature 98.3 F Pulse Rate 95 H 112 H 111 H Pulse Rate [ 109 H Apical] Pulse Rate [ 109 H Dorsalis Pedis] Respiratory 9 L 10 L 9 L Rate Blood Pressure 128/82 128/82 130/91 O2 Sat by Pulse 95 94 Oximetry 07/15/18 07/15/18 07/15/18 00:11 00:21 00:30 Temperature Pulse Rate 100 H 107 H 109 H Pulse Rate [ Apical] Pulse Rate [ Dorsalis Pedis] Respiratory 10 L 9 L 9 L Rate Blood Pressure 130/91 124/83 116/92 O2 Sat by Pulse 94 77 L 95 Oximetry 07/15/18 07/15/18 07/15/18 00:41 00:51 01:01 Temperature Pulse Rate 131 H 105 H 106 H Pulse Rate [ Apical] Pulse Rate [ Dorsalis Pedis] Respiratory 15 13 18 Rate Blood Pressure 124/83 124/97 131/98 O2 Sat by Pulse 95 97 99 Oximetry 07/15/18 07/15/18 07/15/18 01:11 01:21 01:30 Temperature Pulse Rate 101 H 107 H 113 H Pulse Rate [ Apical] Pulse Rate [ Dorsalis Pedis] Respiratory 15 10 L 11 L Rate Blood Pressure 131/98 138/81 114/78 O2 Sat by Pulse 96 96 97 Oximetry 07/15/18 07/15/18 07/15/18 01:41 01:50 02:00 Temperature Pulse Rate 97 H 115 H 117 H Pulse Rate [ 105 H Apical] Pulse Rate [ 105 H Dorsalis Pedis] Respiratory 11 L 10 L 11 L Rate Blood Pressure 138/81 121/78 128/74 O2 Sat by Pulse 96 95 97 Oximetry 07/15/18 07/15/18 07/15/18 02:11 02:21 02:27 Temperature Pulse Rate 118 H 112 H Pulse Rate [ Apical] Pulse Rate [ Dorsalis Pedis] Respiratory 11 L 12 14 Rate Blood Pressure 128/74 123/67 O2 Sat by Pulse 96 98 Oximetry 07/15/18 07/15/18 07/15/18 02:30 02:41 02:51 Temperature Pulse Rate 120 H 111 H 106 H Pulse Rate [ Apical] Pulse Rate [ Dorsalis Pedis] Respiratory 14 12 16 Rate Blood Pressure 120/69 120/69 129/73 O2 Sat by Pulse 94 96 92 Oximetry 07/15/18 07/15/18 07/15/18 03:01 03:11 03:21 Temperature Pulse Rate 115 H 113 H 108 H Pulse Rate [ Apical] Pulse Rate [ Dorsalis Pedis] Respiratory 13 9 L 11 L Rate Blood Pressure 127/88 127/88 132/91 O2 Sat by Pulse 92 92 93 Oximetry 07/15/18 07/15/18 07/15/18 03:30 03:41 03:51 Temperature Pulse Rate 109 H 103 H 106 H Pulse Rate [ Apical] Pulse Rate [ Dorsalis Pedis] Respiratory 11 L 10 L 9 L Rate Blood Pressure 130/76 130/76 124/88 O2 Sat by Pulse 92 92 93 Oximetry 07/15/18 07/15/18 07/15/18 04:00 04:11 04:21 Temperature 98.3 F Pulse Rate 108 H 104 H 106 H Pulse Rate [ 124 H Apical] Pulse Rate [ 124 H Dorsalis Pedis] Respiratory 9 L 8 L 12 Rate Blood Pressure 118/82 118/82 123/77 O2 Sat by Pulse 94 94 94 Oximetry 07/15/18 07/15/18 07/15/18 04:30 04:41 04:51 Temperature Pulse Rate 111 H 95 H 105 H Pulse Rate [ Apical] Pulse Rate [ Dorsalis Pedis] Respiratory 11 L 13 10 L Rate Blood Pressure 128/83 128/83 128/83 O2 Sat by Pulse 94 95 93 Oximetry 07/15/18 07/15/18 07/15/18 05:00 05:11 05:21 Temperature Pulse Rate 106 H 139 H 117 H Pulse Rate [ Apical] Pulse Rate [ Dorsalis Pedis] Respiratory 11 L 19 13 Rate Blood Pressure 122/89 122/89 130/75 O2 Sat by Pulse 95 96 97 Oximetry 07/15/18 07/15/18 07/15/18 05:31 05:40 05:51 Temperature Pulse Rate 144 H 111 H 111 H Pulse Rate [ Apical] Pulse Rate [ Dorsalis Pedis] Respiratory 20 14 13 Rate Blood Pressure 139/98 139/98 122/79 O2 Sat by Pulse 94 97 98 Oximetry 07/15/18 07/15/18 07/15/18 06:00 06:11 06:17 Temperature Pulse Rate 109 H 124 H 114 H Pulse Rate [ 124 H Apical] Pulse Rate [ 124 H Dorsalis Pedis] Respiratory 13 22 Rate Blood Pressure 114/84 114/84 130/82 O2 Sat by Pulse 93 95 Oximetry 07/15/18 07/15/18 07/15/18 06:21 06:30 06:41 Temperature Pulse Rate 115 H 121 H 122 H Pulse Rate [ Apical] Pulse Rate [ Dorsalis Pedis] Respiratory 19 12 13 Rate Blood Pressure 130/82 136/88 130/82 O2 Sat by Pulse 98 99 98 Oximetry 07/15/18 07/15/18 07/15/18 06:51 07:00 07:11 Temperature Pulse Rate 116 H 114 H 114 H Pulse Rate [ Apical] Pulse Rate [ Dorsalis Pedis] Respiratory 11 L 15 17 Rate Blood Pressure 129/81 141/78 141/78 O2 Sat by Pulse 96 94 95 Oximetry 07/15/18 07/15/18 07/15/18 07:21 07:30 07:41 Temperature Pulse Rate 113 H 117 H 112 H Pulse Rate [ Apical] Pulse Rate [ Dorsalis Pedis] Respiratory 11 L 18 13 Rate Blood Pressure 135/78 132/85 132/85 O2 Sat by Pulse 95 98 Oximetry 07/15/18 07/15/18 07/15/18 07:51 08:00 09:17 Temperature 99.8 F H Pulse Rate 109 H 128 H Pulse Rate [ 124 H Apical] Pulse Rate [ 123 H Dorsalis Pedis] Respiratory 12 19 Rate Blood Pressure 139/80 125/83 O2 Sat by Pulse 95 98 95 Oximetry - Labs CBC & Chem 7: 07/15/18 04:45 07/15/18 04:45 Labs: Abnormal lab results 07/15/18 07/15/18 07/15/18 Range/Units 04:45 04:45 04:45 RBC 2.19 L (3.65-5.03) M/mm3 Hgb 6.9 L (11.8-15.2) gm/dl Hct 21.1 L (35.5-45.6) % MCV 96 H (84-94) fl RDW 17.5 H (13.2-15.2) % Lymph % (Auto) 12.9 L (13.4-35.0) % [place] % (Auto) 12.1 H (0.0-7.3) % [place] # 1.3 H (0.0-0.8) K/mm3 Seg Neutrophils % 72.4 H (40.0-70.0) % Seg Neutrophils # 8.0 H (1.8-7.7) K/mm3 PT 28.9 H (12.2-14.9) Sec. INR 2.52 H (0.87-1.13) APTT 59.8 H (24.2-36.6) Sec. Glucose 141 H (75-100) mg/dL Total Bilirubin 1.80 H (0.1-1.2) mg/dL
[2018-07-15] MEDS: PROTONIX IV SCH ×2 (09:32→22:00)
--- NOTE | 2018-07-15 09:45 | Progress Note ---
Assessment and Plan Assessment and plan: --Severe anemia/acute blood loss; s/p 1 unit PRBC trasfusion hemoglobin dropped to 6.9 ,Transfuse 2 additional PRBCs today Monitor H&H, transfuse additional as needed --GI bleeding; secondary to coagulopathy GI following possible endoscopy, --A. fib with rapid ventricular rate; Continue Cardizem drip, titrate heart rates to less than 100 Cardiology following --Coagulopathy/Coumadin toxicity; Patient's INR today 2.52, vitamin K and FFP's if needed --Acute kidney injury; probably vasomotor nephropathy Slightly improved, avoid nephrotoxins --Hypertension; well controlled Continue current antihypertensives and PRN meds --Insomnia; Ambien as needed --DVT prophylaxis; SCDs Closely monitor the patient and adjust management as needed Plan of care reviewed with the patient and his nurse Critical care Time35 minutes History Interval history: Patient seen and examined medical records reviewed He is better no new complaints, did not sleep last night Mild drop in hemoglobin to 6.9, GI following Remains A. fib with rapid ventricular rate on Cardizem drip Vital signs reviewed Hospitalist Physical - Constitutional Vitals: Temp Pulse Resp BP Pulse Ox 99.8 F H 103 H 19 128/75 95 07/15/18 08:00 07/15/18 09:30 07/15/18 08:41 07/15/18 09:30 07/15/18 09:30 General appearance: Present: no acute distress, well-nourished, obese - EENT Eyes: Present: PERRL, EOM intact - Neck Neck: Present: supple, normal ROM - Respiratory Respiratory effort: normal Respiratory: bilateral: diminished, negative: rales, rhonchi, wheezing - Cardiovascular Rhythm: regular Heart Sounds: Present: S1 & S2 - Extremities Extremities: no ischemia, No edema - Abdominal General gastrointestinal: soft, non-tender, non-distended, normal bowel sounds - Integumentary Integumentary: Present: clear, warm - Psychiatric Psychiatric: appropriate mood/affect, cooperative - Neurologic Neurologic: CNII-XII intact, moves all extremities Results - Labs CBC & Chem 7: 07/15/18 04:45 07/15/18 04:45 Labs: Laboratory Last Values WBC 11.0 K/mm3 (4.5-11.0) 07/15/18 04:45 RBC 2.19 M/mm3 (3.65-5.03) L 07/15/18 04:45 Hgb 6.9 gm/dl (11.8-15.2) L 07/15/18 04:45 Hct 21.1 % (35.5-45.6) L 07/15/18 04:45 MCV 96 fl (84-94) H 07/15/18 04:45 MCH 32 pg (28-32) 07/15/18 04:45 MCHC 33 % (32-34) 07/15/18 04:45 RDW 17.5 % (13.2-15.2) H 07/15/18 04:45 Plt Count 205 K/mm3 (140-440) 07/15/18 04:45 Lymph % (Auto) 12.9 % (13.4-35.0) L 07/15/18 04:45 [place] % (Auto) 12.1 % (0.0-7.3) H 07/15/18 04:45 Eos % (Auto) 2.0 % (0.0-4.3) 07/15/18 04:45 Baso % (Auto) 0.6 % (0.0-1.8) 07/15/18 04:45 Lymph # 1.4 K/mm3 (1.2-5.4) 07/15/18 04:45 [place] # 1.3 K/mm3 (0.0-0.8) H 07/15/18 04:45 Eos # 0.2 K/mm3 (0.0-0.4) 07/15/18 04:45 Baso # 0.1 K/mm3 (0.0-0.1) 07/15/18 04:45 Seg Neutrophils % 72.4 % (40.0-70.0) H 07/15/18 04:45 Seg Neutrophils # 8.0 K/mm3 (1.8-7.7) H 07/15/18 04:45 PT 28.9 Sec. (12.2-14.9) H 07/15/18 04:45 INR 2.52 (0.87-1.13) H 07/15/18 04:45 APTT 59.8 Sec. (24.2-36.6) H 07/15/18 04:45 Sodium 137 mmol/L (137-145) 07/15/18 04:45 Potassium 4.7 mmol/L (3.6-5.0) 07/15/18 04:45 Chloride 99.5 mmol/L (98-107) 07/15/18 04:45 Carbon Dioxide 26 mmol/L (22-30) 07/15/18 04:45 Anion Gap 16 mmol/L 07/15/18 04:45 BUN 19 mg/dL (9-20) 07/15/18 04:45 Creatinine 1.5 mg/dL (0.8-1.5) 07/15/18 04:45 Estimated GFR 49 ml/min 07/15/18 04:45 BUN/Creatinine Ratio 13 % 07/15/18 04:45 Glucose 141 mg/dL (75-100) H 07/15/18 04:45 Calcium 8.7 mg/dL (8.4-10.2) 07/15/18 04:45 Magnesium 2.10 mg/dL (1.7-2.3) 07/15/18 04:45 Total Bilirubin 1.80 mg/dL (0.1-1.2) H 07/15/18 04:45 Direct Bilirubin 0.3 mg/dL (0-0.2) H 07/12/18 20:28 Indirect Bilirubin 0.7 mg/dL 07/12/18 20:28 AST 16 units/L (5-40) 07/15/18 04:45 ALT 9 units/L (7-56) 07/15/18 04:45 Alkaline Phosphatase 100 units/L (35-129) 07/15/18 04:45 Total Creatine Kinase 147 units/L (55-170) 07/13/18 04:37 CK-MB (CK-2) 5.1 ng/mL (0.0-4.0) H 07/13/18 04:37 CK-MB (CK-2) Rel Index 3.4 (0-4) 07/13/18 04:37 Troponin T < 0.010 ng/mL (0.00-0.029) 07/13/18 04:37 NT-Pro-B Natriuret Pep 2876 pg/mL (0-900) H 07/12/18 20:28 Total Protein 6.6 g/dL (6.3-8.2) 07/15/18 04:45 Albumin 3.9 g/dL (3.9-5) 07/15/18 04:45 Albumin/Globulin Ratio 1.4 % 07/15/18 04:45 Blood Type A POSITIVE 07/12/18 20:21 Antibody Screen Negative 07/12/18 20:21 Crossmatch See Detail 07/12/18 20:21
--- NOTE | 2018-07-15 10:55 | Progress Note ---
Assessment and Plan As indicated during my initial consultation, the patient's anticoagulation may be reversed to facilitate endoscopy. This will avoid undue prolongation of hospitalization. Continue diltiazem drip was the patient is NPO. - Patient Problems (1) GI bleed Current Visit: Yes Status: Acute (2) Symptomatic anemia Current Visit: Yes Status: Acute (3) Atrial fibrillation with rapid ventricular response Current Visit: Yes Status: Acute (4) Permanent atrial fibrillation Current Visit: Yes Status: Chronic (5) Chest pain Current Visit: Yes Status: Acute (6) HTN (hypertension) Current Visit: Yes Status: Chronic Qualifiers: Hypertension type: essential hypertension Qualified Code(s): I10 - Essential (primary) hypertension (7) Diabetes mellitus Current Visit: Yes Status: Chronic Qualifiers: Diabetes mellitus type: type 2 (8) Exertional dyspnea Current Visit: Yes Status: Acute Subjective Date of service: 07/15/18 Principal diagnosis: GI bleed, Perm Afib with RVR, Symptomatic anemia Interval history: No new complaint. Objective Vital Signs Last Vital Signs Temp 99.8 F H 07/15/18 08:00 Pulse 103 H 07/15/18 09:30 Resp 19 07/15/18 08:41 BP 128/75 07/15/18 09:30 Pulse Ox 95 07/15/18 09:30 - Physical Examination General: No Apparent Distress HEENT: Positive: EOMI, Pallor, Normocephaly, Mucus Membranes Moist Neck: Positive: neck supple, trachea midline Cardiac: Positive: irregularly irregular, S1/S2 Lungs: Positive: clear to auscultation Neuro: Positive: Grossly Intact Abdomen: Positive: Soft, Active Bowel Sounds. Negative: Tender Skin: Positive: Clear. Negative: Rash Musculoskeletal: Normal Range of Motion Extremities: Present: normal. Absent: edema - Labs and Meds Cardiac Enzymes 07/15/18 Range/Units 04:45 AST 16 (5-40) units/L Coagulation 07/15/18 Range/Units 04:45 PT 28.9 H (12.2-14.9) Sec. INR 2.52 H (0.87-1.13) APTT 59.8 H (24.2-36.6) Sec. CBC 07/15/18 Range/Units 04:45 WBC 11.0 (4.5-11.0) K/mm3 RBC 2.19 L (3.65-5.03) M/mm3 Hgb 6.9 L (11.8-15.2) gm/dl Hct 21.1 L (35.5-45.6) % Plt Count 205 (140-440) K/mm3 Lymph # 1.4 (1.2-5.4) K/mm3 [place] # 1.3 H (0.0-0.8) K/mm3 Eos # 0.2 (0.0-0.4) K/mm3 Baso # 0.1 (0.0-0.1) K/mm3 Comprehensive Metabolic Panel 07/15/18 Range/Units 04:45 Sodium 137 (137-145) mmol/L Potassium 4.7 (3.6-5.0) mmol/L Chloride 99.5 (98-107) mmol/L Carbon Dioxide 26 (22-30) mmol/L BUN 19 (9-20) mg/dL Creatinine 1.5 (0.8-1.5) mg/dL Glucose 141 H (75-100) mg/dL Calcium 8.7 (8.4-10.2) mg/dL AST 16 (5-40) units/L ALT 9 (7-56) units/L Alkaline Phosphatase 100 (35-129) units/L Total Protein 6.6 (6.3-8.2) g/dL Albumin 3.9 (3.9-5) g/dL - Imaging and Cardiology Echo: report reviewed (07/13/2018: EF 50-55%, mild LVH, trace MR, trace TR)
--- NOTE | 2018-07-15 12:26 | Progress Note ---
Assessment and Plan 1. Anemia - etiology unclear. Patient was on iron tablets and this was stopped a month ago. This seems to imply that he may have a more long-standing anemia. He is currently on warfarin for atrial fibrillation. His hemoglobin has remained relatively stable, and he describes the black stools as having been going on for 2 months, suggesting that this is not some sort of an acute upper GI blood loss. Because of this, I think an upper endoscopy and a colonoscopy are appropriate and would best be done at the same time frame. -We will give vitamin K to reverse INR. - We will plan on upper and lower endoscopy, probably on July 17. - Monitor H&H, and transfuse as needed. We will scope more urgently if warranted. Subjective Date of service: 07/15/18 Principal diagnosis: GI bleed, Perm Afib with RVR, Symptomatic anemia Interval history: Patient doing well with no complaints. No abdominal pain nausea vomiting. Upper endoscopy today canceled due to increase in INR. Objective - Constitutional Vitals: Vital Signs - 12hr 07/15/18 07/15/18 07/15/18 00:30 00:41 00:51 Temperature Pulse Rate 109 H 131 H 105 H Pulse Rate [ Apical] Pulse Rate [ Dorsalis Pedis] Respiratory 9 L 15 13 Rate Blood Pressure 116/92 124/83 124/97 O2 Sat by Pulse 95 95 97 Oximetry 07/15/18 07/15/18 07/15/18 01:01 01:11 01:21 Temperature Pulse Rate 106 H 101 H 107 H Pulse Rate [ Apical] Pulse Rate [ Dorsalis Pedis] Respiratory 18 15 10 L Rate Blood Pressure 131/98 131/98 138/81 O2 Sat by Pulse 99 96 96 Oximetry 07/15/18 07/15/18 07/15/18 01:30 01:41 01:50 Temperature Pulse Rate 113 H 97 H 115 H Pulse Rate [ Apical] Pulse Rate [ Dorsalis Pedis] Respiratory 11 L 11 L 10 L Rate Blood Pressure 114/78 138/81 121/78 O2 Sat by Pulse 97 96 95 Oximetry 07/15/18 07/15/18 07/15/18 02:00 02:11 02:21 Temperature Pulse Rate 117 H 118 H 112 H Pulse Rate [ 105 H Apical] Pulse Rate [ 105 H Dorsalis Pedis] Respiratory 11 L 11 L 12 Rate Blood Pressure 128/74 128/74 123/67 O2 Sat by Pulse 97 96 98 Oximetry 07/15/18 07/15/18 07/15/18 02:27 02:30 02:41 Temperature Pulse Rate 120 H 111 H Pulse Rate [ Apical] Pulse Rate [ Dorsalis Pedis] Respiratory 14 14 12 Rate Blood Pressure 120/69 120/69 O2 Sat by Pulse 94 96 Oximetry 07/15/18 07/15/18 07/15/18 02:51 03:01 03:11 Temperature Pulse Rate 106 H 115 H 113 H Pulse Rate [ Apical] Pulse Rate [ Dorsalis Pedis] Respiratory 16 13 9 L Rate Blood Pressure 129/73 127/88 127/88 O2 Sat by Pulse 92 92 92 Oximetry 07/15/18 07/15/18 07/15/18 03:21 03:30 03:41 Temperature Pulse Rate 108 H 109 H 103 H Pulse Rate [ Apical] Pulse Rate [ Dorsalis Pedis] Respiratory 11 L 11 L 10 L Rate Blood Pressure 132/91 130/76 130/76 O2 Sat by Pulse 93 92 92 Oximetry 07/15/18 07/15/18 07/15/18 03:51 04:00 04:11 Temperature 98.3 F Pulse Rate 106 H 108 H 104 H Pulse Rate [ 124 H Apical] Pulse Rate [ 124 H Dorsalis Pedis] Respiratory 9 L 9 L 8 L Rate Blood Pressure 124/88 118/82 118/82 O2 Sat by Pulse 93 94 94 Oximetry 07/15/18 07/15/18 07/15/18 04:21 04:30 04:41 Temperature Pulse Rate 106 H 111 H 95 H Pulse Rate [ Apical] Pulse Rate [ Dorsalis Pedis] Respiratory 12 11 L 13 Rate Blood Pressure 123/77 128/83 128/83 O2 Sat by Pulse 94 94 95 Oximetry 07/15/18 07/15/18 07/15/18 04:51 05:00 05:11 Temperature Pulse Rate 105 H 106 H 139 H Pulse Rate [ Apical] Pulse Rate [ Dorsalis Pedis] Respiratory 10 L 11 L 19 Rate Blood Pressure 128/83 122/89 122/89 O2 Sat by Pulse 93 95 96 Oximetry 07/15/18 07/15/18 07/15/18 05:21 05:31 05:40 Temperature Pulse Rate 117 H 144 H 111 H Pulse Rate [ Apical] Pulse Rate [ Dorsalis Pedis] Respiratory 13 20 14 Rate Blood Pressure 130/75 139/98 139/98 O2 Sat by Pulse 97 94 97 Oximetry 07/15/18 07/15/18 07/15/18 05:51 06:00 06:11 Temperature Pulse Rate 111 H 109 H 124 H Pulse Rate [ 124 H Apical] Pulse Rate [ 124 H Dorsalis Pedis] Respiratory 13 13 22 Rate Blood Pressure 122/79 114/84 114/84 O2 Sat by Pulse 98 93 95 Oximetry 07/15/18 07/15/18 07/15/18 06:17 06:21 06:30 Temperature Pulse Rate 114 H 115 H 121 H Pulse Rate [ Apical] Pulse Rate [ Dorsalis Pedis] Respiratory 19 12 Rate Blood Pressure 130/82 130/82 136/88 O2 Sat by Pulse 98 99 Oximetry 07/15/18 07/15/18 07/15/18 06:41 06:51 07:00 Temperature Pulse Rate 122 H 116 H 114 H Pulse Rate [ Apical] Pulse Rate [ Dorsalis Pedis] Respiratory 13 11 L 15 Rate Blood Pressure 130/82 129/81 141/78 O2 Sat by Pulse 98 96 94 Oximetry 07/15/18 07/15/18 07/15/18 07:11 07:21 07:30 Temperature Pulse Rate 114 H 113 H 117 H Pulse Rate [ Apical] Pulse Rate [ Dorsalis Pedis] Respiratory 17 11 L 18 Rate Blood Pressure 141/78 135/78 132/85 O2 Sat by Pulse 95 95 Oximetry 07/15/18 07/15/18 07/15/18 07:41 07:51 08:00 Temperature 99.8 F H Pulse Rate 112 H 109 H 128 H Pulse Rate [ 124 H Apical] Pulse Rate [ 123 H Dorsalis Pedis] Respiratory 13 12 19 Rate Blood Pressure 132/85 139/80 125/83 O2 Sat by Pulse 98 95 98 Oximetry 07/15/18 07/15/18 07/15/18 08:11 08:21 08:31 Temperature Pulse Rate 135 H 124 H 124 H Pulse Rate [ Apical] Pulse Rate [ Dorsalis Pedis] Respiratory 9 L 12 18 Rate Blood Pressure 135/78 117/59 117/66 O2 Sat by Pulse 92 95 93 Oximetry 07/15/18 07/15/18 07/15/18 08:41 08:51 09:00 Temperature Pulse Rate 126 H 118 H 129 H Pulse Rate [ Apical] Pulse Rate [ Dorsalis Pedis] Respiratory 19 Rate Blood Pressure 117/66 122/52 132/79 O2 Sat by Pulse 95 93 94 Oximetry 07/15/18 07/15/18 07/15/18 09:11 09:17 09:21 Temperature Pulse Rate 119 H 116 H Pulse Rate [ Apical] Pulse Rate [ Dorsalis Pedis] Respiratory Rate Blood Pressure 132/79 129/79 O2 Sat by Pulse 94 95 94 Oximetry 07/15/18 09:30 Temperature Pulse Rate 103 H Pulse Rate [ Apical] Pulse Rate [ Dorsalis Pedis] Respiratory Rate Blood Pressure 128/75 O2 Sat by Pulse 95 Oximetry General appearance: Present: no acute distress - EENT Eyes: PERRL, EOM intact ENT: hearing intact - Respiratory Respiratory effort: normal - Cardiovascular Rhythm: irregularly irregular - Gastrointestinal General gastrointestinal: Present: soft, non-tender Rectal Exam: other (Normal, with dark greenish-black stool) - Labs CBC & Chem 7: 07/15/18 04:45 07/15/18 04:45 Labs: Abnormal lab results 07/15/18 07/15/18 07/15/18 Range/Units 04:45 04:45 04:45 RBC 2.19 L (3.65-5.03) M/mm3 Hgb 6.9 L (11.8-15.2) gm/dl Hct 21.1 L (35.5-45.6) % MCV 96 H (84-94) fl RDW 17.5 H (13.2-15.2) % Lymph % (Auto) 12.9 L (13.4-35.0) % [place] % (Auto) 12.1 H (0.0-7.3) % [place] # 1.3 H (0.0-0.8) K/mm3 Seg Neutrophils % 72.4 H (40.0-70.0) % Seg Neutrophils # 8.0 H (1.8-7.7) K/mm3 PT 28.9 H (12.2-14.9) Sec. INR 2.52 H (0.87-1.13) APTT 59.8 H (24.2-36.6) Sec. Glucose 141 H (75-100) mg/dL Total Bilirubin 1.80 H (0.1-1.2) mg/dL
[2018-07-15] MEDS ORDERED: VITAMIN K (ADULT ONLY) 10 MG in NACL 0.9% 50 ML IV ONE (13:00)
[2018-07-15] MEDS: CARDIZEM 100 MG in D5W 80 ML IV SCH (14:49)
[2018-07-15] MEDS ORDERED: NACL 0.9% 500 ML 500 ML IV SCH (15:00)
[2018-07-15] MEDS: TYLENOL PO PRN (16:30)
[2018-07-16] MEDS: CARDIZEM 100 MG in D5W 80 ML IV SCH ×3 (00:02→19:45)
[2018-07-16] MEDS: DILAUDID IV PRN ×4 (01:49→21:11)
[2018-07-16 05:27] LABS: Basophils % (Auto) 0.3 % (0.0-1.8); Eosinophils # (Auto) 0.3 K/mm3 (0.0-0.4); Hemoglobin 8.3 gm/dl (11.8-15.2); Lymphocytes # (Auto) 1.5 K/mm3 (1.2-5.4); Lymphocytes % (Auto) 10.8 % (13.4-35.0); Mean Corpuscular HGB Conc 33 % (32-34); Mean Corpuscular Hemoglobin 31 pg (28-32); Mean Corpuscular Volume 92 fl (84-94); Monocytes # (Auto) 1.8 K/mm3 (0.0-0.8); Platelet Count 205 K/mm3 (140-440); Red Blood Count 2.71 M/mm3 (3.65-5.03); Red Cell Distribution Width 17.7 % (13.2-15.2)
[2018-07-16 05:35] LABS: INR 1.44 (0.87-1.13)
[2018-07-16 05:40] LABS: Albumin 3.6 g/dL (3.9-5); Calcium 8.5 mg/dL (8.4-10.2)
[2018-07-16] MEDS: NITRO-BID 2% TP SCH ×2 (06:20→13:36)
[2018-07-16] MEDS: PROTONIX IV SCH ×2 (09:06→21:57)
--- NOTE | 2018-07-16 10:21 | Progress Note ---
Assessment and Plan Assessment and plan: --A. fib with rapid ventricular rate; management per cardiology Continue Cardizem drip, titrate heart rates to less than 100 --Severe anemia/acute blood loss; s/p 3 unit PRBC trasfusion hemoglobin improved to 8.3,Transfuse additional PRBCs as needed --GI bleeding; secondary to coagulopathy Management per GI, possible EGD colonoscopy tomorrow --Coagulopathy/Coumadin toxicity; patient received vitamin K Patient's INR today 1.4 , additional vitamin K and FFP's if needed --Acute kidney injury; probably vasomotor nephropathy,Resolved --Hypertension; well controlled Continue current antihypertensives and PRN meds --Insomnia; Ambien as needed --DVT prophylaxis; SCDs Closely monitor the patient and adjust management as needed Plan of care reviewed with the patient and his nurse Also discussed with GI/critical care consultants Critical care Time32 minutes History Interval history: Patient seen and examined medical records reviewed No new events reported by the nursing, No new episodes of bleeding, Patient remains in A.fib with a rapid ventricular rate on Cardizem drip Significant improvement of INR level Vital signs reviewed Hospitalist Physical - Constitutional Vitals: Temp Pulse Resp BP Pulse Ox 99.7 F H 87 37 H 127/58 100 07/16/18 08:00 07/16/18 08:51 07/16/18 09:07 07/16/18 08:51 07/16/18 09:13 General appearance: Present: no acute distress, well-nourished, obese - EENT Eyes: Present: PERRL, EOM intact - Neck Neck: Present: supple, normal ROM - Respiratory Respiratory effort: normal Respiratory: bilateral: diminished, negative: rales, rhonchi, wheezing - Cardiovascular Rhythm: regular Heart Sounds: Present: S1 & S2 - Extremities Extremities: no ischemia, No edema - Abdominal General gastrointestinal: soft, non-tender, non-distended, normal bowel sounds - Integumentary Integumentary: Present: clear, warm - Psychiatric Psychiatric: appropriate mood/affect, cooperative - Neurologic Neurologic: CNII-XII intact, moves all extremities Results - Labs CBC & Chem 7: 07/16/18 04:46 07/16/18 04:46 Labs: Laboratory Last Values WBC 13.5 K/mm3 (4.5-11.0) H 07/16/18 04:46 RBC 2.71 M/mm3 (3.65-5.03) L 07/16/18 04:46 Hgb 8.3 gm/dl (11.8-15.2) L 07/16/18 04:46 Hct 25.0 % (35.5-45.6) L 07/16/18 04:46 MCV 92 fl (84-94) 07/16/18 04:46 MCH 31 pg (28-32) 07/16/18 04:46 MCHC 33 % (32-34) 07/16/18 04:46 RDW 17.7 % (13.2-15.2) H 07/16/18 04:46 Plt Count 205 K/mm3 (140-440) 07/16/18 04:46 Lymph % (Auto) 10.8 % (13.4-35.0) L 07/16/18 04:46 [place] % (Auto) 13.0 % (0.0-7.3) H 07/16/18 04:46 Eos % (Auto) 2.0 % (0.0-4.3) 07/16/18 04:46 Baso % (Auto) 0.3 % (0.0-1.8) 07/16/18 04:46 Lymph # 1.5 K/mm3 (1.2-5.4) 07/16/18 04:46 [place] # 1.8 K/mm3 (0.0-0.8) H 07/16/18 04:46 Eos # 0.3 K/mm3 (0.0-0.4) 07/16/18 04:46 Baso # 0.0 K/mm3 (0.0-0.1) 07/16/18 04:46 Seg Neutrophils % 73.9 % (40.0-70.0) H 07/16/18 04:46 Seg Neutrophils # 10.0 K/mm3 (1.8-7.7) H 07/16/18 04:46 PT 18.4 Sec. (12.2-14.9) H 07/16/18 04:46 INR 1.44 (0.87-1.13) H 07/16/18 04:46 APTT 59.8 Sec. (24.2-36.6) H 07/15/18 04:45 Sodium 137 mmol/L (137-145) 07/16/18 04:46 Potassium 4.3 mmol/L (3.6-5.0) 07/16/18 04:46 Chloride 100.8 mmol/L (98-107) 07/16/18 04:46 Carbon Dioxide 25 mmol/L (22-30) 07/16/18 04:46 Anion Gap 16 mmol/L 07/16/18 04:46 BUN 16 mg/dL (9-20) 07/16/18 04:46 Creatinine 1.4 mg/dL (0.8-1.5) 07/16/18 04:46 Estimated GFR 53 ml/min 07/16/18 04:46 BUN/Creatinine Ratio 11 % 07/16/18 04:46 Glucose 121 mg/dL (75-100) H 07/16/18 04:46 Calcium 8.5 mg/dL (8.4-10.2) 07/16/18 04:46 Magnesium 2.10 mg/dL (1.7-2.3) 07/15/18 04:45 Total Bilirubin 3.00 mg/dL (0.1-1.2) H 07/16/18 04:46 Direct Bilirubin 0.3 mg/dL (0-0.2) H 07/12/18 20:28 Indirect Bilirubin 0.7 mg/dL 07/12/18 20:28 AST 14 units/L (5-40) 07/16/18 04:46 ALT 10 units/L (7-56) 07/16/18 04:46 Alkaline Phosphatase 101 units/L (35-129) 07/16/18 04:46 Total Creatine Kinase 147 units/L (55-170) 07/13/18 04:37 CK-MB (CK-2) 5.1 ng/mL (0.0-4.0) H 07/13/18 04:37 CK-MB (CK-2) Rel Index 3.4 (0-4) 07/13/18 04:37 Troponin T < 0.010 ng/mL (0.00-0.029) 07/13/18 04:37 NT-Pro-B Natriuret Pep 2876 pg/mL (0-900) H 07/12/18 20:28 Total Protein 6.5 g/dL (6.3-8.2) 07/16/18 04:46 Albumin 3.6 g/dL (3.9-5) L 07/16/18 04:46 Albumin/Globulin Ratio 1.2 % 07/16/18 04:46 Blood Type A POSITIVE 07/12/18 20:21 Antibody Screen Negative 07/12/18 20:21 Crossmatch See Detail 07/12/18 20:21
--- NOTE | 2018-07-16 10:35 | Progress Note ---
Assessment and Plan 52 y/o male with afib with RVR and acute blood loss anemia thought secondary to GI bleed 1. Cards has seen hoping they will switch to PO but will leave on drip now that GI is not scoping until tomorrow 2. Per GI scope in AM UPPER and LOWER 4. If rate controlled and BP tolerates [address] on 60q6 5. COntinue ICU monitoring, but maybe ready for transfer out tomorrow if stable on PO rate control therapy 6. Suggest CIWA protocol given history and daily drinking habits. CCT 31 minutes. Subjective Date of service: 07/16/18 Principal diagnosis: GI bleed, Perm Afib with RVR, Symptomatic anemia Interval history: patient made NPO by GI on yesterday. INR is 1.44. Patient awake and alert. Did not eat breakfast. Also still remains on cardizem drip, but now rate controlled at 10 and BP tolerates it. Objective - Constitutional Vitals: Vital Signs - 12hr 07/15/18 07/15/18 07/15/18 22:41 22:50 23:00 Temperature Pulse Rate 88 80 88 Pulse Rate [ Apical] Pulse Rate [ Dorsalis Pedis] Pulse Rate [ From Monitor] Pulse Rate [ Posterior Tibial] Respiratory 14 13 10 L Rate Blood Pressure 125/77 141/89 138/87 O2 Sat by Pulse 97 96 95 Oximetry 07/15/18 07/15/18 07/15/18 23:10 23:21 23:30 Temperature Pulse Rate 73 82 84 Pulse Rate [ Apical] Pulse Rate [ Dorsalis Pedis] Pulse Rate [ From Monitor] Pulse Rate [ Posterior Tibial] Respiratory 10 L 13 12 Rate Blood Pressure 138/87 129/86 139/87 O2 Sat by Pulse 96 96 Oximetry 07/15/18 07/15/18 07/16/18 23:41 23:51 00:00 Temperature 98.9 F Pulse Rate 99 H 112 H 78 Pulse Rate [ 86 Apical] Pulse Rate [ 86 Dorsalis Pedis] Pulse Rate [ From Monitor] Pulse Rate [ 86 Posterior Tibial] Respiratory 12 17 12 Rate Blood Pressure 139/87 133/70 136/102 O2 Sat by Pulse 99 97 98 Oximetry 07/16/18 07/16/18 07/16/18 00:02 00:10 00:21 Temperature Pulse Rate 85 92 H 88 Pulse Rate [ Apical] Pulse Rate [ Dorsalis Pedis] Pulse Rate [ From Monitor] Pulse Rate [ Posterior Tibial] Respiratory 13 22 Rate Blood Pressure 136/102 136/102 142/92 O2 Sat by Pulse 99 99 Oximetry 07/16/18 07/16/18 07/16/18 00:30 00:41 00:51 Temperature Pulse Rate 82 79 83 Pulse Rate [ Apical] Pulse Rate [ Dorsalis Pedis] Pulse Rate [ From Monitor] Pulse Rate [ Posterior Tibial] Respiratory 12 12 14 Rate Blood Pressure 138/92 138/92 131/82 O2 Sat by Pulse 98 99 99 Oximetry 07/16/18 07/16/18 07/16/18 01:00 01:11 01:21 Temperature Pulse Rate 79 78 75 Pulse Rate [ Apical] Pulse Rate [ Dorsalis Pedis] Pulse Rate [ From Monitor] Pulse Rate [ Posterior Tibial] Respiratory 15 11 L 12 Rate Blood Pressure 141/77 141/77 141/81 O2 Sat by Pulse 98 99 99 Oximetry 07/16/18 07/16/18 07/16/18 01:30 01:41 01:49 Temperature Pulse Rate 74 83 Pulse Rate [ Apical] Pulse Rate [ Dorsalis Pedis] Pulse Rate [ From Monitor] Pulse Rate [ Posterior Tibial] Respiratory 11 L 13 14 Rate Blood Pressure 150/83 150/83 O2 Sat by Pulse 100 100 Oximetry 07/16/18 07/16/18 07/16/18 01:51 02:00 02:11 Temperature Pulse Rate 78 77 79 Pulse Rate [ Apical] Pulse Rate [ Dorsalis Pedis] Pulse Rate [ From Monitor] Pulse Rate [ Posterior Tibial] Respiratory 9 L 9 L 10 L Rate Blood Pressure 156/91 135/90 135/90 O2 Sat by Pulse 98 96 98 Oximetry 07/16/18 07/16/18 07/16/18 02:19 02:21 02:30 Temperature Pulse Rate 81 76 Pulse Rate [ Apical] Pulse Rate [ Dorsalis Pedis] Pulse Rate [ From Monitor] Pulse Rate [ Posterior Tibial] Respiratory 14 13 10 L Rate Blood Pressure 130/83 136/81 O2 Sat by Pulse 99 97 Oximetry 07/16/18 07/16/18 07/16/18 02:41 02:51 03:00 Temperature 99 F Pulse Rate 68 67 77 Pulse Rate [ Apical] Pulse Rate [ Dorsalis Pedis] Pulse Rate [ From Monitor] Pulse Rate [ Posterior Tibial] Respiratory 8 L 10 L 8 L Rate Blood Pressure 136/81 142/84 142/87 O2 Sat by Pulse 99 98 98 Oximetry 07/16/18 07/16/18 07/16/18 03:11 03:21 03:30 Temperature Pulse Rate 70 71 71 Pulse Rate [ Apical] Pulse Rate [ Dorsalis Pedis] Pulse Rate [ From Monitor] Pulse Rate [ Posterior Tibial] Respiratory 14 8 L 14 Rate Blood Pressure 142/87 133/83 130/80 O2 Sat by Pulse 99 99 97 Oximetry 07/16/18 07/16/18 07/16/18 03:41 03:51 04:00 Temperature Pulse Rate 76 70 77 Pulse Rate [ 84 Apical] Pulse Rate [ 84 Dorsalis Pedis] Pulse Rate [ From Monitor] Pulse Rate [ 84 Posterior Tibial] Respiratory 11 L 7 L 14 Rate Blood Pressure 130/80 128/86 133/85 O2 Sat by Pulse 98 99 97 Oximetry 07/16/18 07/16/18 07/16/18 04:11 04:21 04:30 Temperature Pulse Rate 78 74 75 Pulse Rate [ Apical] Pulse Rate [ Dorsalis Pedis] Pulse Rate [ From Monitor] Pulse Rate [ Posterior Tibial] Respiratory 17 9 L 8 L Rate Blood Pressure 133/83 136/90 140/80 O2 Sat by Pulse 100 100 99 Oximetry 07/16/18 07/16/18 07/16/18 04:41 04:51 05:00 Temperature Pulse Rate 72 76 73 Pulse Rate [ Apical] Pulse Rate [ Dorsalis Pedis] Pulse Rate [ From Monitor] Pulse Rate [ Posterior Tibial] Respiratory 9 L 11 L 9 L Rate Blood Pressure 136/90 125/62 124/78 O2 Sat by Pulse 100 99 98 Oximetry 07/16/18 07/16/18 07/16/18 05:11 05:21 05:30 Temperature Pulse Rate 78 74 83 Pulse Rate [ Apical] Pulse Rate [ Dorsalis Pedis] Pulse Rate [ From Monitor] Pulse Rate [ Posterior Tibial] Respiratory 14 10 L 17 Rate Blood Pressure 140/80 133/74 141/96 O2 Sat by Pulse 99 100 100 Oximetry 07/16/18 07/16/18 07/16/18 05:41 05:51 06:00 Temperature Pulse Rate 65 77 74 Pulse Rate [ Apical] Pulse Rate [ Dorsalis Pedis] Pulse Rate [ From Monitor] Pulse Rate [ Posterior Tibial] Respiratory 9 L 13 14 Rate Blood Pressure 141/96 139/81 146/84 O2 Sat by Pulse 100 100 100 Oximetry 07/16/18 07/16/18 07/16/18 06:11 06:20 06:21 Temperature Pulse Rate 92 H 68 80 Pulse Rate [ Apical] Pulse Rate [ Dorsalis Pedis] Pulse Rate [ From Monitor] Pulse Rate [ Posterior Tibial] Respiratory 17 15 Rate Blood Pressure 141/96 123/62 148/86 O2 Sat by Pulse 99 99 Oximetry 07/16/18 07/16/18 07/16/18 06:30 06:41 06:51 Temperature Pulse Rate 74 74 79 Pulse Rate [ Apical] Pulse Rate [ Dorsalis Pedis] Pulse Rate [ From Monitor] Pulse Rate [ Posterior Tibial] Respiratory 10 L 9 L 10 L Rate Blood Pressure 130/93 130/93 139/100 O2 Sat by Pulse 100 100 100 Oximetry 07/16/18 07/16/18 07/16/18 07:00 07:11 07:21 Temperature Pulse Rate 76 67 77 Pulse Rate [ Apical] Pulse Rate [ Dorsalis Pedis] Pulse Rate [ From Monitor] Pulse Rate [ Posterior Tibial] Respiratory 10 L 10 L 12 Rate Blood Pressure 147/93 147/93 150/90 O2 Sat by Pulse 100 100 100 Oximetry 07/16/18 07/16/18 07/16/18 07:30 07:41 07:51 Temperature Pulse Rate 77 88 88 Pulse Rate [ Apical] Pulse Rate [ Dorsalis Pedis] Pulse Rate [ From Monitor] Pulse Rate [ Posterior Tibial] Respiratory 13 13 15 Rate Blood Pressure 131/89 131/89 136/86 O2 Sat by Pulse 98 100 100 Oximetry 07/16/18 07/16/18 07/16/18 08:00 08:01 08:11 Temperature 99.7 F H Pulse Rate 76 80 Pulse Rate [ Apical] Pulse Rate [ Dorsalis Pedis] Pulse Rate [ 76 From Monitor] Pulse Rate [ Posterior Tibial] Respiratory 13 13 14 Rate Blood Pressure 136/86 120/58 O2 Sat by Pulse 100 94 Oximetry 07/16/18 07/16/18 07/16/18 08:21 08:31 08:41 Temperature Pulse Rate 81 86 81 Pulse Rate [ Apical] Pulse Rate [ Dorsalis Pedis] Pulse Rate [ From Monitor] Pulse Rate [ Posterior Tibial] Respiratory 12 17 17 Rate Blood Pressure 139/93 152/99 152/99 O2 Sat by Pulse 100 98 99 Oximetry 07/16/18 07/16/1807/16/18 08:51 09:07 09:13 Temperature Pulse Rate 87 Pulse Rate [ Apical] Pulse Rate [ Dorsalis Pedis] Pulse Rate [ From Monitor] Pulse Rate [ Posterior Tibial] Respiratory 29 H 37 H Rate Blood Pressure 127/58 O2 Sat by Pulse 100 100 Oximetry - Labs CBC & Chem 7: 07/16/18 04:46 07/16/18 04:46 Labs: Abnormal lab results 07/12/18 07/16/18 07/16/18 Range/Units 20:21 04:46 04:46 WBC 13.5 H (4.5-11.0) K/mm3 RBC 2.71 L (3.65-5.03) M/mm3 Hgb 8.3 L (11.8-15.2) gm/dl Hct 25.0 L (35.5-45.6) % RDW 17.7 H (13.2-15.2) % Lymph % (Auto) 10.8 L (13.4-35.0) % [place] % (Auto) 13.0 H (0.0-7.3) % [place] # 1.8 H (0.0-0.8) K/mm3 Seg Neutrophils % 73.9 H (40.0-70.0) % Seg Neutrophils # 10.0 H (1.8-7.7) K/mm3 PT 18.4 H (12.2-14.9) Sec. INR 1.44 H (0.87-1.13) Glucose (75-100) mg/dL Total Bilirubin (0.1-1.2) mg/dL Albumin (3.9-5) g/dL Crossmatch See Detail 07/16/18 Range/Units 04:46 WBC (4.5-11.0) K/mm3 RBC (3.65-5.03) M/mm3 Hgb (11.8-15.2) gm/dl Hct (35.5-45.6) % RDW (13.2-15.2) % Lymph % (Auto) (13.4-35.0) % [place] % (Auto) (0.0-7.3) % [place] # (0.0-0.8) K/mm3 Seg Neutrophils % (40.0-70.0) % Seg Neutrophils # (1.8-7.7) K/mm3 PT (12.2-14.9) Sec. INR (0.87-1.13) Glucose 121 H (75-100) mg/dL Total Bilirubin 3.00 H (0.1-1.2) mg/dL Albumin 3.6 L (3.9-5) g/dL Crossmatch
--- NOTE | 2018-07-16 13:16 | Progress Note ---
Assessment and Plan Awaiting endoscopy. Continue Diltiazem drip. - Patient Problems (1) GI bleed Current Visit: Yes Status: Acute (2) Symptomatic anemia Current Visit: Yes Status: Acute (3) Atrial fibrillation with rapid ventricular response Current Visit: Yes Status: Acute (4) Permanent atrial fibrillation Current Visit: Yes Status: Chronic (5) Chest pain Current Visit: Yes Status: Acute (6) HTN (hypertension) Current Visit: Yes Status: Chronic Qualifiers: Hypertension type: essential hypertension Qualified Code(s): I10 - Essential (primary) hypertension (7) Diabetes mellitus Current Visit: Yes Status: Chronic Qualifiers: Diabetes mellitus type: type 2 (8) Exertional dyspnea Current Visit: Yes Status: Acute Subjective Date of service: 07/16/18 Principal diagnosis: GI bleed, Perm Afib with RVR, Symptomatic anemia Interval history: No complaint. Objective Vital Signs Temp Pulse Pulse Pulse Pulse Pulse Resp 07/16/18 09:13 07/16/18 09:07 37 H 07/16/18 08:51 87 29 H 07/16/18 08:41 81 17 07/16/18 08:31 86 17 07/16/18 08:21 81 12 07/16/18 08:11 80 14 07/16/18 08:01 76 13 07/16/18 08:00 99.7 F H 76 13 07/16/18 07:51 88 15 07/16/18 07:41 88 13 07/16/18 07:30 77 13 07/16/18 07:21 77 12 07/16/18 07:11 67 10 L 07/16/18 07:00 76 10 L 07/16/18 06:51 79 10 L 07/16/18 06:41 74 9 L 07/16/18 06:30 74 10 L 07/16/18 06:21 80 15 07/16/18 06:20 68 07/16/18 06:11 92 H 17 07/16/18 06:00 74 14 07/16/18 05:51 77 13 07/16/18 05:41 65 9 L 07/16/18 05:30 83 17 07/16/18 05:21 74 10 L 07/16/18 05:11 78 14 07/16/18 05:00 73 9 L 07/16/18 04:51 76 11 L 07/16/18 04:41 72 9 L 07/16/18 04:30 75 8 L 07/16/18 04:21 74 9 L 07/16/18 04:11 78 17 07/16/18 04:00 77 84 84 84 14 07/16/18 03:51 70 7 L 07/16/18 03:41 76 11 L 07/16/18 03:30 71 14 07/16/18 03:21 71 8 L 07/16/18 03:11 70 14 07/16/18 03:00 77 8 L 07/16/18 02:51 67 10 L 07/16/18 02:41 99 F 68 8 L 07/16/18 02:30 76 10 L 07/16/18 02:21 81 13 07/16/18 02:19 14 07/16/18 02:11 79 10 L 07/16/18 02:00 77 9 L 07/16/18 01:51 78 9 L 07/16/18 01:49 14 07/16/18 01:41 83 13 07/16/18 01:30 74 11 L 07/16/18 01:21 75 12 07/16/18 01:11 78 11 L 07/16/18 01:00 79 15 07/16/18 00:51 83 14 07/16/18 00:41 79 12 07/16/18 00:30 82 12 07/16/18 00:21 88 22 07/16/18 00:10 92 H 13 07/16/18 00:02 85 07/16/18 00:00 98.9 F 78 86 86 86 12 07/15/18 23:51 112 H 17 07/15/18 23:41 99 H 12 07/15/18 23:30 84 12 07/15/18 23:21 82 13 07/15/18 23:10 73 10 L 07/15/18 23:00 88 10 L 07/15/18 22:50 80 13 07/15/18 22:41 88 14 07/15/18 22:30 67 12 07/15/18 22:21 80 15 07/15/18 22:19 74 11 L 07/15/18 22:11 78 9 L 07/15/18 22:00 78 9 L 07/15/18 21:51 73 11 L 07/15/18 21:41 86 10 L 07/15/18 21:30 77 9 L 07/15/18 21:21 81 11 L 07/15/18 21:11 78 14 07/15/18 21:00 83 9 L 07/15/18 20:51 82 9 L 07/15/18 20:41 92 H 13 07/15/18 20:31 90 12 07/15/18 20:23 14 07/15/18 20:21 89 11 L 07/15/18 20:11 83 21 07/15/18 20:09 98.8 F 07/15/18 20:03 98.4 F 84 14 07/15/18 20:00 86 12 07/15/18 19:57 07/15/18 19:51 79 12 07/15/18 19:41 97.9 F 81 10 L 07/15/18 19:30 98.5 F 89 11 L 07/15/18 19:21 87 12 07/15/18 19:19 83 83 83 13 07/15/18 19:11 90 10 L 07/15/18 19:03 98.9 F 87 13 07/15/18 19:00 87 11 L 07/15/18 18:51 92 H 12 07/15/18 18:41 92 H 12 07/15/18 18:33 98.6 F 94 H 42 H 07/15/18 18:30 86 12 07/15/18 18:21 90 11 L 07/15/18 18:18 99.6 F 99 H 11 L 07/15/18 18:11 94 H 14 07/15/18 18:10 99.1 F 91 H 16 07/15/18 18:00 90 11 L 07/15/18 17:51 108 H 21 07/15/18 17:44 98.1 F 95 H 12 07/15/18 17:41 101 H 16 07/15/18 17:31 89 11 L 07/15/18 17:21 91 H 34 H 07/15/18 17:14 99.1 F 99 H 24 07/15/18 17:11 97 H 20 07/15/18 17:00 93 H 14 07/15/18 16:51 96 H 11 L 07/15/18 16:44 99.5 F 103 H 12 07/15/18 16:41 107 H 24 07/15/18 16:31 100 H 18 09/29/18 16:21 96 H 10 L 07/15/18 16:14 100.2 F H 97 H 23 07/15/18 16:11 105 H 36 H 07/15/18 16:00 100.4 F H 105 H 24 07/15/18 15:51 101 H 24 07/15/18 15:44 100.7 F H 101 H 24 07/15/18 15:41 96 H 44 H 07/15/18 15:30 107 H 14 07/15/18 15:29 99.9 F H 102 H 13 07/15/18 15:21 117 H 12 07/15/18 15:11 98 H 20 07/15/18 15:00 102 H 12 07/15/18 14:51 110 H 11 L 07/15/18 14:41 107 H 13 07/15/18 14:30 108 H 14 07/15/18 14:21 117 H 15 07/15/18 14:20 107 H 07/15/18 14:11 101 H 14 07/15/18 14:00 101 H 12 07/15/18 13:51 102 H 12 07/15/18 13:41 104 H 13 07/15/18 13:30 110 H 13 07/15/18 13:21 103 H 14 Resp BP Pulse Ox 07/16/18 09:13 100 07/16/18 09:07 07/16/18 08:51 127/58 100 07/16/18 08:41 152/99 99 07/16/18 08:31 152/99 98 07/16/18 08:21 139/93 100 07/16/18 08:11 120/58 94 07/16/18 08:01 136/86 07/16/18 08:00 100 07/16/18 07:51 136/86 100 07/16/18 07:41 131/89 100 07/16/18 07:30 131/89 98 07/16/18 07:21 150/90 100 07/16/18 07:11 147/93 100 07/16/18 07:00 147/93 100 07/16/18 06:51 139/100 100 07/16/18 06:41 130/93 100 07/16/18 06:30 130/93 100 07/16/18 06:21 148/86 99 07/16/18 06:20 123/62 07/16/18 06:11 141/96 99 07/16/18 06:00 146/84 100 07/16/18 05:51 139/81 100 07/16/18 05:41 141/96 100 18 05:30 141/96 100 07/16/18 05:21 133/74 100 07/16/18 05:11 140/80 99 07/16/18 05:00 124/78 98 07/16/18 04:51 125/62 99 07/16/18 04:41 136/90 100 07/16/18 04:30 140/80 99 07/16/18 04:21 136/90 100 07/16/18 04:11 133/83 100 07/16/18 04:00 133/85 97 07/16/18 03:51 128/86 99 07/16/18 03:41 130/80 98 07/16/18 03:30 130/80 97 07/16/18 03:21 133/83 99 07/16/18 03:11 142/87 99 07/16/18 03:00 142/87 98 07/16/18 02:51 142/84 98 07/16/18 02:41 136/81 99 07/16/18 02:30 136/81 97 07/16/18 02:21 130/83 99 07/16/18 02:19 07/16/18 02:11 135/90 98 07/16/18 02:00 135/90 96 07/16/18 01:51 156/91 98 07/16/18 01:49 07/16/18 01:41 150/83 100 07/16/18 01:30 150/83 100 07/16/18 01:21 141/81 99 07/16/18 01:11 141/77 99 07/16/18 01:00 141/77 98 07/16/18 00:51 131/82 99 07/16/18 00:41 138/92 99 18 00:30 138/92 98 07/16/18 00:21 142/92 99 07/16/18 00:10 136/102 99 07/16/18 00:02 136/102 07/16/18 00:00 136/102 98 07/15/18 23:51 133/70 97 07/15/18 23:41 139/87 99 07/15/18 23:30 139/87 07/15/18 23:21 129/86 96 18 23:10 138/87 96 18 23:00 138/87 95 07/15/18 22:50 141/89 96 18 22:41 125/77 97 18 22:30 125/77 94 07/15/18 22:21 135/79 96 07/15/18 22:19 135/79 95 07/15/18 22:11 128/83 96 07/15/18 22:00 14 128/83 94 07/15/18 21:51 129/85 96 07/15/18 21:41 130/82 96 07/15/18 21:30 130/82 95 07/15/18 21:21 130/89 96 07/15/18 21:11 139/95 96 07/15/18 21:00 139/95 95 07/15/18 20:51 135/83 97 07/15/18 20:41 134/81 97 07/15/18 20:31 134/81 95 07/15/18 20:23 07/15/18 20:21 128/84 97 07/15/18 20:11 125/82 99 07/15/18 20:09 07/15/18 20:03 128/84 98 07/15/18 20:00 125/82 98 18 19:57 97 07/15/18 19:51 130/82 99 07/15/18 19:41 135/92 98 18 19:30 135/92 98 18 19:21 135/85 99 18 19:19 99 18 19:11 127/84 99 07/15/18 19:03 135/85 99 07/15/18 19:00 127/84 98 18 18:51 129/79 98 18 18:41 137/79 99 18 18:33 137/79 98 18 18:30 137/79 98 18 18:21 129/79 98 18 18:18 137/79 98 07/15/18 18:11 122/78 99 07/15/18 18:10 129/79 88 07/15/18 18:00 122/78 96 07/15/18 17:51 129/75 99 07/15/18 17:44 129/75 99 07/15/18 17:41 119/49 98 07/15/18 17:31 119/49 98 07/15/18 17:21 124/88 99 07/15/18 17:14 124/88 97 07/15/18 17:11 124/83 98 07/15/18 17:00 124/83 97 07/15/18 16:51 116/92 99 07/15/18 16:44 116/92 99 07/15/18 16:41 107/88 99 07/15/18 16:31 107/88 95 07/15/18 16:21 128/80 95 07/15/18 16:14 128/80 98 07/15/18 16:11 126/76 94 07/15/18 16:00 126/76 94 07/15/18 15:51 127/84 96 07/15/18 15:44 127/84 95 07/15/18 15:41 132/86 94 07/15/18 15:30 132/86 95 07/15/18 15:29 132/86 93 07/15/18 15:21 113/67 95 07/15/18 15:11 130/81 95 07/15/18 15:00 130/81 94 07/15/18 14:51 140/85 97 07/15/18 14:41 146/86 99 07/15/18 14:30 146/86 99 07/15/18 14:21 132/78 99 07/15/18 14:20 132/78 07/15/18 14:11 132/81 100 07/15/18 14:00 132/81 98 07/15/18 13:51 129/85 98 07/15/18 13:41 126/87 97 07/15/18 13:30 126/87 98 07/15/18 13:21 135/83 99 - Physical Examination General: No Apparent Distress HEENT: Positive: EOMI, Pallor, Normocephaly, Mucus Membranes Moist Neck: Positive: neck supple, trachea midline Cardiac: Positive: irregularly irregular, S1/S2 Lungs: Positive: clear to auscultation Neuro: Positive: Grossly Intact Abdomen: Positive: Soft, Active Bowel Sounds. Negative: Tender Skin: Positive: Clear. Negative: Rash Musculoskeletal: Normal Range of Motion Extremities: Present: normal. Absent: edema - Labs and Meds Cardiac Enzymes 07/16/18 Range/Units 04:46 AST 14 (5-40) units/L Coagulation 07/16/18 Range/Units 04:46 PT 18.4 H (12.2-14.9) Sec. INR 1.44 H (0.87-1.13) CBC 07/16/18 Range/Units 04:46 WBC 13.5 H (4.5-11.0) K/mm3 RBC 2.71 L (3.65-5.03) M/mm3 Hgb 8.3 L (11.8-15.2) gm/dl Hct 25.0 L (35.5-45.6) % Plt Count 205 (140-440) K/mm3 Lymph # 1.5 (1.2-5.4) K/mm3 [place] # 1.8 H (0.0-0.8) K/mm3 Eos # 0.3 (0.0-0.4) K/mm3 Baso # 0.0 (0.0-0.1) K/mm3 Comprehensive Metabolic Panel 07/16/18 Range/Units 04:46 Sodium 137 (137-145) mmol/L Potassium 4.3 (3.6-5.0) mmol/L Chloride 100.8 (98-107) mmol/L Carbon Dioxide 25 (22-30) mmol/L BUN 16 (9-20) mg/dL Creatinine 1.4 (0.8-1.5) mg/dL Glucose 121 H (75-100) mg/dL Calcium 8.5 (8.4-10.2) mg/dL AST 14 (5-40) units/L ALT 10 (7-56) units/L Alkaline Phosphatase 101 (35-129) units/L Total Protein 6.5 (6.3-8.2) g/dL Albumin 3.6 L (3.9-5) g/dL - Imaging and Cardiology EKG: report reviewed Echo: report reviewed (07/13/2018: EF 50-55%, mild LVH, trace MR, trace TR) - Telemetry EKG Rhythm: Atrial Fibrillation
[2018-07-16] MEDS: APRESOLINE IV PRN (15:25)
[2018-07-16] MEDS ORDERED: LOPRESSOR PO ONE (16:07)
[2018-07-16] MEDS ORDERED: GOLYTELY PO ONE (20:03)
--- NOTE | 2018-07-16 20:03 | Progress Note ---
Assessment and Plan 1. Anemia - etiology unclear. Patient was on iron tablets and this was stopped a month ago. This seems to imply that he may have a more long-standing anemia. He is currently on warfarin for atrial fibrillation. His hemoglobin has remained relatively stable, and he describes the black stools as having been going on for 2 months, suggesting that this is not some sort of an acute upper GI blood loss. Because of this, I think an upper endoscopy and a colonoscopy are appropriate and would best be done at the same time frame. INR - 1.4. -upper and lower endoscopy tomorrow - Monitor H&H, and transfuse as needed. Subjective Date of service: 07/16/18 Principal diagnosis: GI bleed, Perm Afib with RVR, Symptomatic anemia Interval history: Patient doing well with no complaints. No abdominal pain nausea vomiting. Objective - Constitutional Vitals: Vital Signs - 12hr 07/16/18 07/16/18 07/16/18 08:11 08:21 08:31 Temperature Pulse Rate 80 81 86 Pulse Rate [ From Monitor] Respiratory 14 12 17 Rate Blood Pressure 120/58 139/93 152/99 O2 Sat by Pulse 94 100 98 Oximetry 07/16/18 07/16/18 07/16/18 08:41 08:51 09:01 Temperature Pulse Rate 81 87 80 Pulse Rate [ From Monitor] Respiratory 17 29 H 14 Rate Blood Pressure 152/99 127/58 146/84 O2 Sat by Pulse 99 100 81 L Oximetry 07/16/18 07/16/18 07/16/18 09:07 09:11 09:13 Temperature Pulse Rate 90 Pulse Rate [ From Monitor] Respiratory 37 H 35 H Rate Blood Pressure 146/84 O2 Sat by Pulse 100 100 Oximetry 07/16/18 07/16/18 07/16/18 09:21 09:31 09:41 Temperature Pulse Rate 89 Pulse Rate [ From Monitor] Respiratory 10 L Rate Blood Pressure 127/76 134/85 134/85 O2 Sat by Pulse 98 97 97 Oximetry 07/16/18 07/16/18 07/16/18 09:51 10:00 10:11 Temperature Pulse Rate 96 H Pulse Rate [ From Monitor] Respiratory 13 Rate Blood Pressure 130/80 129/70 129/70 O2 Sat by Pulse 97 97 98 Oximetry 07/16/18 07/16/18 07/16/18 10:21 10:30 10:41 Temperature Pulse Rate 91 H Pulse Rate [ From Monitor] Respiratory 15 Rate Blood Pressure 112/56 135/77 135/77 O2 Sat by Pulse 98 97 99 Oximetry 07/16/18 07/16/18 07/16/18 10:51 11:00 11:11 Temperature Pulse Rate 98 H 84 85 Pulse Rate [ From Monitor] Respiratory 13 19 16 Rate Blood Pressure 143/83 138/75 138/75 O2 Sat by Pulse 97 98 98 Oximetry 07/16/18 07/16/18 07/16/18 11:21 11:30 11:41 Temperature Pulse Rate 87 82 81 Pulse Rate [ From Monitor] Respiratory 21 21 20 Rate Blood Pressure 146/80 145/83 145/83 O2 Sat by Pulse 97 97 98 Oximetry 07/16/18 07/16/18 07/16/18 11:51 12:00 12:01 Temperature 98.0 F Pulse Rate 89 94 H 94 H Pulse Rate [ 94 H From Monitor] Respiratory 21 25 H 25 H Rate Blood Pressure 150/87 155/92 O2 Sat by Pulse 96 98 98 Oximetry 07/16/18 07/16/18 07/16/18 12:11 12:21 12:30 Temperature Pulse Rate 90 100 H 84 Pulse Rate [ From Monitor] Respiratory 14 12 10 L Rate Blood Pressure 155/92 155/92 156/97 O2 Sat by Pulse 100 99 97 Oximetry 07/16/18 07/16/18 07/16/18 12:41 12:51 13:00 Temperature Pulse Rate 79 74 86 Pulse Rate [ From Monitor] Respiratory 11 L 11 L 10 L Rate Blood Pressure 156/97 156/97 135/95 O2 Sat by Pulse 97 98 99 Oximetry 07/16/18 07/16/18 07/16/18 13:11 13:21 13:31 Temperature Pulse Rate 90 87 92 H Pulse Rate [ From Monitor] Respiratory 12 12 12 Rate Blood Pressure 135/95 135/95 160/90 O2 Sat by Pulse 91 100 Oximetry 07/16/18 07/16/18 07/16/18 13:36 13:41 13:51 Temperature Pulse Rate 94 H 84 90 Pulse Rate [ From Monitor] Respiratory 37 H 13 Rate Blood Pressure 160/90 160/90 160/90 O2 Sat by Pulse 100 100 Oximetry 07/16/18 07/16/18 07/16/18 14:00 14:11 14:21 Temperature Pulse Rate 89 91 H 90 Pulse Rate [ From Monitor] Respiratory 11 L 13 17 Rate Blood Pressure 184/104 163/127 147/104 O2 Sat by Pulse 100 100 100 Oximetry 07/16/18 07/16/18 07/16/18 14:31 14:41 14:51 Temperature Pulse Rate 87 77 95 H Pulse Rate [ From Monitor] Respiratory 11 L 12 13 Rate Blood Pressure 147/104 175/90 176/114 O2 Sat by Pulse 100 100 100 Oximetry 07/16/18 07/16/18 07/16/18 15:01 15:11 15:21 Temperature Pulse Rate 93 H 100 H 101 H Pulse Rate [ From Monitor] Respiratory 14 12 15 Rate Blood Pressure 190/104 190/104 165/105 O2 Sat by Pulse 99 99 97 Oximetry 07/16/18 07/16/18 07/16/18 15:25 15:31 15:41 Temperature Pulse Rate 95 H 87 94 H Pulse Rate [ From Monitor] Respiratory 15 12 Rate Blood Pressure 165/105 169/97 169/97 O2 Sat by Pulse 99 99 Oximetry 07/16/18 07/16/18 07/16/18 15:51 16:00 16:11 Temperature 97.6 F Pulse Rate 85 96 H 92 H Pulse Rate [ 96 H From Monitor] Respiratory 12 15 12 Rate Blood Pressure 169/97 169/97 125/63 O2 Sat by Pulse 98 100 99 Oximetry 07/16/18 07/16/18 07/16/18 16:21 16:31 16:41 Temperature Pulse Rate 81 82 85 Pulse Rate [ From Monitor] Respiratory 13 12 30 H Rate Blood Pressure 125/63 125/63 125/63 O2 Sat by Pulse 99 98 100 Oximetry 07/16/18 07/16/18 07/16/18 16:51 17:00 17:11 Temperature Pulse Rate 82 80 77 Pulse Rate [ From Monitor] Respiratory 33 H 19 Rate Blood Pressure 125/63 122/70 122/70 O2 Sat by Pulse 98 97 98 Oximetry 07/16/18 07/16/18 07/16/18 17:21 17:30 17:41 Temperature Pulse Rate 78 78 79 Pulse Rate [ From Monitor] Respiratory Rate Blood Pressure 122/70 119/79 119/79 O2 Sat by Pulse 98 97 99 Oximetry 07/16/18 07/16/18 07/16/18 17:51 18:00 18:11 Temperature Pulse Rate 86 72 73 Pulse Rate [ From Monitor] Respiratory Rate Blood Pressure 119/79 115/69 115/69 O2 Sat by Pulse 100 99 99 Oximetry 07/16/18 07/16/18 07/16/18 18:21 18:30 18:41 Temperature Pulse Rate 74 98 H 88 Pulse Rate [ From Monitor] Respiratory Rate Blood Pressure 115/69 121/68 121/68 O2 Sat by Pulse 99 99 99 Oximetry 07/16/18 07/16/18 07/16/18 18:51 19:01 19:11 Temperature Pulse Rate 91 H 85 86 Pulse Rate [ From Monitor] Respiratory Rate Blood Pressure 121/68 122/44 122/44 O2 Sat by Pulse 99 96 99 Oximetry 07/16/18 07/16/18 07/16/18 19:21 19:26 19:54 Temperature 101 F H Pulse Rate Pulse Rate [ From Monitor] Respiratory Rate Blood Pressure 122/44 O2 Sat by Pulse 99 97 Oximetry General appearance: Present: no acute distress - EENT Eyes: PERRL, EOM intact - Respiratory Respiratory effort: normal - Gastrointestinal General gastrointestinal: Present: soft, non-tender - Labs CBC & Chem 7: 07/16/18 04:46 07/16/18 04:46 Labs: Abnormal lab results 07/12/18 07/16/18 07/16/18 Range/Units 20:21 04:46 04:46 WBC 13.5 H (4.5-11.0) K/mm3 RBC 2.71 L (3.65-5.03) M/mm3 Hgb 8.3 L (11.8-15.2) gm/dl Hct 25.0 L (35.5-45.6) % RDW 17.7 H (13.2-15.2) % Lymph % (Auto) 10.8 L (13.4-35.0) % [place] % (Auto) 13.0 H (0.0-7.3) % [place] # 1.8 H (0.0-0.8) K/mm3 Seg Neutrophils % 73.9 H (40.0-70.0) % Seg Neutrophils # 10.0 H (1.8-7.7) K/mm3 PT 18.4 H (12.2-14.9) Sec. INR 1.44 H (0.87-1.13) Glucose (75-100) mg/dL Total Bilirubin (0.1-1.2) mg/dL Albumin (3.9-5) g/dL Crossmatch See Detail 07/16/18 Range/Units 04:46 WBC (4.5-11.0) K/mm3 RBC (3.65-5.03) M/mm3 Hgb (11.8-15.2) gm/dl Hct (35.5-45.6) % RDW (13.2-15.2) % Lymph % (Auto) (13.4-35.0) % [place] % (Auto) (0.0-7.3) % [place] # (0.0-0.8) K/mm3 Seg Neutrophils % (40.0-70.0) % Seg Neutrophils # (1.8-7.7) K/mm3 PT (12.2-14.9) Sec. INR (0.87-1.13) Glucose 121 H (75-100) mg/dL Total Bilirubin 3.00 H (0.1-1.2) mg/dL Albumin 3.6 L (3.9-5) g/dL Crossmatch
[2018-07-16] MEDS: TYLENOL PO PRN (20:17)
[2018-07-16] MEDS: TOPROL XL PO SCH (21:58)
[2018-07-16] MEDS ORDERED: AMBIEN PO PRN (22:00)
[2018-07-17] MEDS: DILAUDID IV PRN ×4 (02:35→22:01)
[2018-07-17 05:38] LABS: Basophils # (Auto) 0.1 K/mm3 (0.0-0.1); Basophils % (Auto) 0.6 % (0.0-1.8); Eosinophils # (Auto) 0.2 K/mm3 (0.0-0.4); Eosinophils % (Auto) 1.7 % (0.0-4.3); Hematocrit 25.5 % (35.5-45.6); Hemoglobin 8.5 gm/dl (11.8-15.2); Lymphocytes # (Auto) 1.1 K/mm3 (1.2-5.4); Lymphocytes % (Auto) 8.7 % (13.4-35.0); Mean Corpuscular HGB Conc 33 % (32-34); Mean Corpuscular Hemoglobin 30 pg (28-32); Mean Corpuscular Volume 90 fl (84-94); Monocytes # (Auto) 1.4 K/mm3 (0.0-0.8); Monocytes % (Auto) 11.1 % (0.0-7.3); Platelet Count 212 K/mm3 (140-440); Red Blood Count 2.82 M/mm3 (3.65-5.03)
[2018-07-17 05:43] LABS: INR 1.37 (0.87-1.13)
[2018-07-17 06:01] LABS: Calcium 8.4 mg/dL (8.4-10.2)
[2018-07-17] MEDS: NITRO-BID 2% TP SCH ×2 (06:51→14:01)
[2018-07-17] MEDS: CARDIZEM 100 MG in D5W 80 ML IV SCH (07:00)
--- NOTE | 2018-07-17 08:00 | Progress Note ---
Assessment and Plan Assessment and plan: 52-year-old obese male patient with significant history of chronic atrial fibrillation on Coumadin with beta blockers, was admitted through emergency room with chest pain, GI bleeding, A. fib with rapid ventricular rate, coagulopathy/Coumadin toxicity Janis to ICU on Cardizem drip, received 3 units of PRBC, coagulopathy is corrected, Evaluated by GI, scheduled for EGD colonoscopy today --GI bleeding; secondary to coagulopathy EGD colonoscopy today, GI following --Coagulopathy/Coumadin toxicity; patient received vitamin K Patient's INR today 1.37 , Coumadin on hold --A. fib with rapid ventricular rate; management per cardiology Continue Cardizem drip, titrate heart rates to less than 100 --Severe anemia/acute blood loss; s/p 3 unit PRBC trasfusion hemoglobin improved to 8.5, monitor H&H --Acute kidney injury; probably vasomotor nephropathy,Resolved --Hypertension; well controlled, on current antihypertensives --Insomnia; Ambien as needed --DVT prophylaxis; SCDs Follow EGD colonoscopy findings Possible discharge in 1-2 days if stable Consults and recommendations noted and appreciated Critical care Time31 minutes Plan of care reviewed with the patient and his nurse History Interval history: Patient seen and examined medical records reviewed Scheduled for EGD and colonoscopy today No new episodes of bleeding INR today 1.3 Alert awake oriented 3 Vital signs reviewed Hospitalist Physical - Constitutional Vitals: Temp Pulse Resp BP Pulse Ox 98.5 F 88 10 L 138/81 100 07/17/18 03:36 07/17/18 06:51 07/17/18 06:51 07/17/18 06:51 07/17/18 06:51 General appearance: Present: no acute distress, well-nourished, obese - EENT Eyes: Present: PERRL, EOM intact - Neck Neck: Present: supple, normal ROM - Respiratory Respiratory effort: normal Respiratory: negative: rales, rhonchi, wheezing - Cardiovascular Rhythm: regular Heart Sounds: Present: S1 & S2 - Extremities Extremities: no ischemia, No edema - Abdominal General gastrointestinal: soft, non-tender, non-distended, normal bowel sounds - Integumentary Integumentary: Present: clear, warm - Psychiatric Psychiatric: appropriate mood/affect, cooperative - Neurologic Neurologic: CNII-XII intact, moves all extremities Results - Labs CBC & Chem 7: 07/17/18 05:06 07/17/18 05:06 Labs: Laboratory Last Values WBC 12.2 K/mm3 (4.5-11.0) H 07/17/18 05:06 RBC 2.82 M/mm3 (3.65-5.03) L 07/17/18 05:06 Hgb 8.5 gm/dl (11.8-15.2) L 07/17/18 05:06 Hct 25.5 % (35.5-45.6) L 07/17/18 05:06 MCV 90 fl (84-94) 07/17/18 05:06 MCH 30 pg (28-32) 07/17/18 05:06 MCHC 33 % (32-34) 07/17/18 05:06 RDW 17.0 % (13.2-15.2) H 07/17/18 05:06 Plt Count 212 K/mm3 (140-440) 07/17/18 05:06 Lymph % (Auto) 8.7 % (13.4-35.0) L 07/17/18 05:06 [place] % (Auto) 11.1 % (0.0-7.3) H 07/17/18 05:06 Eos % (Auto) 1.7 % (0.0-4.3) 07/17/18 05:06 Baso % (Auto) 0.6 % (0.0-1.8) 07/17/18 05:06 Lymph # 1.1 K/mm3 (1.2-5.4) L 07/17/18 05:06 [place] # 1.4 K/mm3 (0.0-0.8) H 07/17/18 05:06 Eos # 0.2 K/mm3 (0.0-0.4) 07/17/18 05:06 Baso # 0.1 K/mm3 (0.0-0.1) 07/17/18 05:06 Seg Neutrophils % 77.9 % (40.0-70.0) H 07/17/18 05:06 Seg Neutrophils # 9.5 K/mm3 (1.8-7.7) H 07/17/18 05:06 PT 17.7 Sec. (12.2-14.9) H 07/17/18 05:06 INR 1.37 (0.87-1.13) H 07/17/18 05:06 APTT 59.8 Sec. (24.2-36.6) H 07/15/18 04:45 Sodium 139 mmol/L (137-145) 07/17/18 05:06 Potassium 3.9 mmol/L (3.6-5.0) 07/17/18 05:06 Chloride 99.2 mmol/L (98-107) 07/17/18 05:06 Carbon Dioxide 26 mmol/L (22-30) 07/17/18 05:06 Anion Gap 18 mmol/L 07/17/18 05:06 BUN 14 mg/dL (9-20) 07/17/18 05:06 Creatinine 1.4 mg/dL (0.8-1.5) 07/17/18 05:06 Estimated GFR 53 ml/min 07/17/18 05:06 BUN/Creatinine Ratio 10 % 07/17/18 05:06 Glucose 120 mg/dL (75-100) H 07/17/18 05:06 Calcium 8.4 mg/dL (8.4-10.2) 07/17/18 05:06 Magnesium 2.00 mg/dL (1.7-2.3) 07/17/18 05:06 Total Bilirubin 3.00 mg/dL (0.1-1.2) H 07/16/18 04:46 Direct Bilirubin 0.3 mg/dL (0-0.2) H 07/12/18 20:28 Indirect Bilirubin 0.7 mg/dL 07/12/18 20:28 AST 14 units/L (5-40) 07/16/18 04:46 ALT 10 units/L (7-56) 07/16/18 04:46 Alkaline Phosphatase 101 units/L (35-129) 07/16/18 04:46 Total Creatine Kinase 147 units/L (55-170) 07/13/18 04:37 CK-MB (CK-2) 5.1 ng/mL (0.0-4.0) H 07/13/18 04:37 CK-MB (CK-2) Rel Index 3.4 (0-4) 07/13/18 04:37 Troponin T < 0.010 ng/mL (0.00-0.029) 07/13/18 04:37 NT-Pro-B Natriuret Pep 2876 pg/mL (0-900) H 07/12/18 20:28 Total Protein 6.5 g/dL (6.3-8.2) 07/16/18 04:46 Albumin 3.6 g/dL (3.9-5) L 07/16/18 04:46 Albumin/Globulin Ratio 1.2 % 07/16/18 04:46 Blood Type A POSITIVE 07/12/18 20:21 Antibody Screen Negative 07/12/18 20:21 Crossmatch See Detail 07/12/18 20:21
[2018-07-17] MEDS ORDERED: NACL 0.9% 1000 ML 1,000 ML IV SCH (09:00)
[2018-07-17] MEDS: PROTONIX IV SCH ×2 (09:28→22:00)
--- NOTE | 2018-07-17 09:35 | Progress Note ---
Assessment and Plan Awaiting endoscopy. Continue Diltiazem drip. Plan for conversion of IV to PO medications once enteral intake is resumed. The patient has been seen in conjunction with Dr. Thompson who agrees with the assessment and plan of care. - Patient Problems (1) GI bleed Current Visit: Yes Status: Acute (2) Symptomatic anemia Current Visit: Yes Status: Acute (3) Anticoagulated on Coumadin Current Visit: Yes Status: Chronic (4) Atrial fibrillation with rapid ventricular response Current Visit: Yes Status: Chronic (5) Chest pain Current Visit: Yes Status: Acute (6) HTN (hypertension) Current Visit: Yes Status: Chronic Qualifiers: Hypertension type: essential hypertension Qualified Code(s): I10 - Essential (primary) hypertension (7) Diabetes mellitus Current Visit: Yes Status: Chronic Qualifiers: Diabetes mellitus type: type 2 (8) Alcohol abuse Current Visit: Yes Status: Chronic Subjective Date of service: 07/17/18 Principal diagnosis: GI bleed, Perm Afib with RVR, Symptomatic anemia Interval history: pt resting comfortably in bed, no current cardiac complaints. awaiting endoscopy today. tele reviewed - in AFib with CVR, cardizem gtt infusing. Objective Last Vital Signs Temp 98.5 F 07/17/18 03:36 Pulse 88 07/17/18 06:51 Resp 10 L 07/17/18 06:51 BP 138/81 07/17/18 06:51 Pulse Ox 99 07/17/18 09:06 - Physical Examination General: No Apparent Distress HEENT: Positive: EOMI, Pallor, Normocephaly, Mucus Membranes Moist Neck: Positive: neck supple, trachea midline Cardiac: Positive: irregularly irregular, S1/S2 Lungs: Positive: clear to auscultation Neuro: Positive: Grossly Intact Abdomen: Positive: Soft, Active Bowel Sounds. Negative: Tender Skin: Positive: Clear. Negative: Rash Musculoskeletal: Normal Range of Motion Extremities: Present: normal. Absent: edema - Labs and Meds Coagulation 07/17/18 Range/Units 05:06 PT 17.7 H (12.2-14.9) Sec. INR 1.37 H (0.87-1.13) CBC 07/17/18 Range/Units 05:06 WBC 12.2 H (4.5-11.0) K/mm3 RBC 2.82 L (3.65-5.03) M/mm3 Hgb 8.5 L (11.8-15.2) gm/dl Hct 25.5 L (35.5-45.6) % Plt Count 212 (140-440) K/mm3 Lymph # 1.1 L (1.2-5.4) K/mm3 [place] # 1.4 H (0.0-0.8) K/mm3 Eos # 0.2 (0.0-0.4) K/mm3 Baso # 0.1 (0.0-0.1) K/mm3 Comprehensive Metabolic Panel 07/17/18 Range/Units 05:06 Sodium 139 (137-145) mmol/L Potassium 3.9 (3.6-5.0) mmol/L Chloride 99.2 (98-107) mmol/L Carbon Dioxide 26 (22-30) mmol/L BUN 14 (9-20) mg/dL Creatinine 1.4 (0.8-1.5) mg/dL Glucose 120 H (75-100) mg/dL Calcium 8.4 (8.4-10.2) mg/dL - Imaging and Cardiology EKG: report reviewed Echo: report reviewed (07/13/2018: EF 50-55%, mild LVH, trace MR, trace TR)
[2018-07-17] MEDS: LASIX PO SCH (11:37)
[2018-07-17] MEDS: TOPROL XL PO SCH ×2 (11:37→22:00)
[2018-07-17] MEDS ORDERED: DIPRIVAN 10 MG/ML IV ONE ×3 (15:04→15:06)
[2018-07-17] MEDS ORDERED: VERSED ONE (15:04)
[2018-07-17] MEDS ORDERED: WATER FOR IRRIG STERILE IR ONE (15:06)
[2018-07-17] MEDS ORDERED: WATER FOR IRRIG STERILE ONE (15:06)
[2018-07-17] MEDS ORDERED: SUBLIMAZE ONE (15:08)
[2018-07-17] MEDS ORDERED: XYLOCAINE CARDIAC IV ONE (15:09)
[2018-07-17] MEDS ORDERED: ZOFRAN ONE (15:10)
--- NOTE | 2018-07-17 15:20 | Anesthesia Day of Surgery ---
Anesthesia Day of Surgery - Day of Surgery Patient Examined: Yes Patient H&P Reviewed: Yes Patient is NPO: Yes Beta Blockers: Yes Cardiac Clearance: No Pulmonary Clearance: No
--- NOTE | 2018-07-17 15:21 | Anesthesia Consultation ---
Anesthesia Consult and Med Hx Date of service: 07/17/18 - Airway Anesthetic Teeth Evaluation: Dentures ROM Head & Neck: Adequate Mental/Hyoid Distance: Adequate Mallampati Class: Class III Intubation Access Assessment: Good - Pulmonary Exam CTA: No - Cardiac Exam Cardiac Exam: No Murmur - Pre-Operative Health Status ASA Pre-Surgery Classification: ASA3 Proposed Anesthetic Plan: MAC - Pulmonary Hx Asthma: No COPD: Yes Hx Pneumonia: No - Cardiovascular System Hx Hypertension: Yes Hx Coronary Artery Disease: Yes Hx Pacemaker: No Hx Internal Defibrillator: No - Central Nervous System Hx Seizures: Yes - Endocrine Hx End Stage Renal Disease: No Hx Cirrhosis: No Hx Liver Disease: No Hx Hyperthyroidism: No - Hematic Hx Sickle Cell Disease: No - Other Systems Hx Alcohol Use: No Hx Substance Use: No Hx Cancer: No Hx Obesity: Yes
[2018-07-17] MEDS ORDERED: NACL 0.9% 1000 ML 1,000 ML ONE (15:29)
--- NOTE | 2018-07-17 15:36 | Progress Note ---
Assessment and Plan Imp: 1. Afib w/ RVR 2. GI bleeding 3. Acute blood loss anemia 4. CKD 5. Obesity Rec: 1. For EGD/colonoscopy 2. Would change cardizem to oral regimen (defer to cardiology) once taking PO consistently, and hopefully transfer out of ICU thereafter Plan of care reviewed w/ patient, he understands/agrees Subjective Date of service: 07/17/18 Principal diagnosis: GI bleed, Perm Afib with RVR, Symptomatic anemia Interval history: No events. NPO for EGD/colonoscopy. No bleeding. No complaints. Active Medications Acetaminophen (Tylenol) 650 mg PO Q4H PRN PRN Reason: Headache Last Admin: 07/16/18 20:17 Dose: 650 mg Furosemide (Lasix) 40 mg PO QDAY [facility] Last Admin: 07/17/18 11:37 Dose: Not Given Hydralazine HCl (Apresoline) 10 mg IV Q4HR PRN PRN Reason: Hypertension Last Admin: 07/16/18 15:25 Dose: 10 mg Hydromorphone HCl (Dilaudid) 1 mg IV Q4H PRN PRN Reason: Pain, Moderate (4-6) Last Admin: 07/17/18 14:52 Dose: 1 mg Diltiazem HCl 100 mg/ Dextrose 100 mls @ 5 mls/hr IV DIRECT DAV; Protocol Last Admin: 07/17/18 07:00 Dose: 5 mg/hr, 5 mls/hr Sodium Chloride (Nacl 0.9% 1000 Ml) 1,000 mls @ 50 mls/hr IV DIRECT DAV Last Admin: 07/17/18 09:55 Dose: 50 mls/hr Metoprolol Succinate (Toprol Xl) 25 mg PO BID [facility] Last Admin: 07/17/18 11:37 Dose: Not Given Nitroglycerin (Nitrostat) 0.4 mg SL .Q5MIN PRN PRN Reason: Chest Pain Nitroglycerin (Nitro-Bid 2%) 0.5 inch TP BIDNTG [facility]; Protocol Last Admin: 07/17/18 14:01 Dose: 0.5 inch Ondansetron HCl (Zofran) 4 mg IV Q8H PRN PRN Reason: Nausea And Vomiting Last Admin: 07/13/18 00:03 Dose: 4 mg Pantoprazole Sodium (Protonix) 40 mg IV BID [facility] Last Admin: 07/17/18 09:28 Dose: 40 mg Zolpidem Tartrate (Ambien) 5 mg PO QHS PRN PRN Reason: Sleep Objective Vital Signs - 12hr 07/17/18 07/17/18 07/17/18 03:36 03:41 03:51 Temperature 98.5 F Pulse Rate 82 83 Pulse Rate [ From Monitor] Respiratory 8 L 8 L Rate Blood Pressure 106/66 106/66 O2 Sat by Pulse 98 97 Oximetry 07/17/18 07/17/18 07/17/18 03:58 04:01 04:11 Temperature Pulse Rate 89 81 Pulse Rate [ From Monitor] Respiratory 9 L 7 L Rate Blood Pressure 126/80 126/80 O2 Sat by Pulse 98 100 99 Oximetry 07/17/18 07/17/18 07/17/18 04:21 04:30 04:41 Temperature Pulse Rate Pulse Rate [ From Monitor] Respiratory Rate Blood Pressure 126/80 119/77 119/77 O2 Sat by Pulse 100 100 99 Oximetry 07/17/18 07/17/18 07/17/18 04:51 05:00 05:11 Temperature Pulse Rate 87 Pulse Rate [ From Monitor] Respiratory 17 Rate Blood Pressure 119/77 121/72 121/72 O2 Sat by Pulse 99 99 98 Oximetry 07/17/18 07/17/18 07/17/18 05:21 05:30 05:41 Temperature Pulse Rate 97 H 91 H 89 Pulse Rate [ From Monitor] Respiratory 10 L 9 L 12 Rate Blood Pressure 119/77 128/88 128/88 O2 Sat by Pulse 98 99 98 Oximetry 07/17/18 07/17/18 07/17/18 05:51 06:00 06:11 Temperature Pulse Rate 87 83 115 H Pulse Rate [ From Monitor] Respiratory 10 L 9 L 22 Rate Blood Pressure 128/88 107/82 107/82 O2 Sat by Pulse 99 100 97 Oximetry 07/17/18 07/17/18 07/17/18 06:21 06:31 06:41 Temperature Pulse Rate 102 H 100 H 99 H Pulse Rate [ From Monitor] Respiratory 13 13 15 Rate Blood Pressure 107/82 107/82 138/81 O2 Sat by Pulse 100 99 96 Oximetry 07/17/18 07/17/18 07/17/18 06:51 07:00 07:11 Temperature Pulse Rate 88 100 H 95 H Pulse Rate [ From Monitor] Respiratory 10 L 13 10 L Rate Blood Pressure 138/81 126/78 126/78 O2 Sat by Pulse 100 100 100 Oximetry 07/17/18 07/17/18 07/17/18 07:21 07:30 07:41 Temperature Pulse Rate 103 H 91 H Pulse Rate [ From Monitor] Respiratory 20 13 11 L Rate Blood Pressure 126/78 124/91 124/91 O2 Sat by Pulse 100 100 100 Oximetry 07/17/18 07/17/18 07/17/18 07:51 08:00 08:11 Temperature 98.7 F Pulse Rate 101 H 94 H 94 H Pulse Rate [ 86 From Monitor] Respiratory 21 13 12 Rate Blood Pressure 124/91 131/77 131/77 O2 Sat by Pulse 100 100 100 Oximetry 07/17/18 07/17/18 07/17/18 08:21 08:30 08:41 Temperature Pulse Rate 88 95 H 91 H Pulse Rate [ From Monitor] Respiratory 12 12 12 Rate Blood Pressure 131/77 131/85 131/85 O2 Sat by Pulse 100 99 99 Oximetry 07/17/18 07/17/18 07/17/18 08:51 09:00 09:06 Temperature Pulse Rate 95 H 94 H Pulse Rate [ From Monitor] Respiratory 10 L 14 Rate Blood Pressure 131/85 137/90 O2 Sat by Pulse 95 98 99 Oximetry 07/17/18 07/17/18 07/17/18 09:11 09:21 09:30 Temperature Pulse Rate 99 H 88 92 H Pulse Rate [ From Monitor] Respiratory 11 L 12 16 Rate Blood Pressure 137/90 137/90 131/90 O2 Sat by Pulse 98 89 99 Oximetry 07/17/18 07/17/18 07/17/18 09:41 09:51 10:00 Temperature Pulse Rate 100 H 93 H 96 H Pulse Rate [ From Monitor] Respiratory 10 L 14 10 L Rate Blood Pressure 131/90 131/90 124/83 O2 Sat by Pulse 96 96 95 Oximetry 07/17/18 07/17/18 07/17/18 10:11 10:21 10:30 Temperature Pulse Rate 89 95 H 89 Pulse Rate [ From Monitor] Respiratory 9 L 17 9 L Rate Blood Pressure 124/83 124/83 134/78 O2 Sat by Pulse 96 96 96 Oximetry 10/01/18 10/01/18 10/01/18 10:41 10:51 11:00 Temperature Pulse Rate 89 91 H 89 Pulse Rate [ From Monitor] Respiratory 10 L 9 L 12 Rate Blood Pressure 134/78 134/78 134/81 O2 Sat by Pulse 96 97 96 Oximetry 07/17/18 07/17/18 07/17/18 11:11 11:21 11:30 Temperature Pulse Rate 87 89 86 Pulse Rate [ From Monitor] Respiratory 10 L 11 L 9 L Rate Blood Pressure 134/81 134/81 131/93 O2 Sat by Pulse 86 98 96 Oximetry 07/17/18 07/17/18 07/17/18 11:41 11:51 12:00 Temperature 98.3 F Pulse Rate 82 83 81 Pulse Rate [ 86 From Monitor] Respiratory 8 L 9 L 16 Rate Blood Pressure 131/93 131/93 115/76 O2 Sat by Pulse 96 97 96 Oximetry 07/17/18 07/17/18 07/17/18 12:11 12:21 12:31 Temperature Pulse Rate 101 H 93 H 89 Pulse Rate [ From Monitor] Respiratory 11 L 11 L 20 Rate Blood Pressure 115/76 115/76 144/80 O2 Sat by Pulse 98 98 98 Oximetry 07/17/18 07/17/18 07/17/18 12:41 12:51 13:00 Temperature Pulse Rate 86 82 80 Pulse Rate [ From Monitor] Respiratory 13 10 L 13 Rate Blood Pressure 144/80 144/80 144/80 O2 Sat by Pulse 98 99 98 Oximetry 07/17/18 07/17/18 07/17/18 13:11 13:21 13:30 Temperature Pulse Rate 92 H 93 H 85 Pulse Rate [ From Monitor] Respiratory 11 L 13 12 Rate Blood Pressure 144/80 144/80 155/85 O2 Sat by Pulse 99 98 97 Oximetry 07/17/18 07/17/18 07/17/18 13:41 13:51 14:01 Temperature Pulse Rate 121 H 100 H 111 H Pulse Rate [ From Monitor] Respiratory 19 13 14 Rate Blood Pressure 155/85 155/85 170/133 O2 Sat by Pulse 98 99 99 Oximetry Constitutional: no acute distress, alert Eyes: non-icteric ENT: oropharynx moist Neck: supple Effort: normal Ascultation: Bilateral: clear Cardiovascular: irregular rhythm (no mrg) Gastrointestinal: normoactive bowel sounds, soft, non-tender, other (obese) Integumentary: normal Extremities: no cyanosis, no edema, pink and warm Neurologic: normal mental status, non-focal exam, pupils equal and round, CN II- XII normal Psychiatric: mood appropriate, affect normal CBC and BMP: 07/17/18 05:06 07/17/18 05:06 ABG, PT/INR, D-dimer: PT/INR, D-dimer PT 17.7 Sec. (12.2-14.9) H 07/17/18 05:06 INR 1.37 (0.87-1.13) H 07/17/18 05:06 Abnormal lab findings: Abnormal Labs 07/12/18 07/12/18 07/12/18 19:52 19:52 20:21 WBC RBC 2.06 L Hgb 6.5 L Hct 19.6 L* MCV 95 H RDW 15.7 H Lymph % (Auto) [place] % (Auto) 7.4 H Lymph # [place] # Seg Neutrophils % Seg Neutrophils # PT INR APTT BUN 39 H Creatinine 1.6 H Glucose 168 H Total Bilirubin Direct Bilirubin CK-MB (CK-2) NT-Pro-B Natriuret Pep Albumin Crossmatch See Detail 07/12/18 07/12/18 07/13/18 20:28 20:28 02:09 WBC RBC Hgb 7.4 L Hct 22.7 L MCV RDW Lymph % (Auto) [place] % (Auto) Lymph # [place] # Seg Neutrophils % Seg Neutrophils # PT 36.3 H INR 3.58 H APTT 81.0 H* BUN Creatinine Glucose Total Bilirubin Direct Bilirubin 0.3 H CK-MB (CK-2) NT-Pro-B Natriuret Pep 2876 H Albumin Crossmatch 07/13/18 07/13/18 07/13/18 02:09 04:37 04:37 WBC RBC Hgb 7.3 L Hct 21.4 L MCV RDW Lymph % (Auto) [place] % (Auto) Lymph # [place] # Seg Neutrophils % Seg Neutrophils # PT INR APTT BUN 33 H Creatinine Glucose 151 H Total Bilirubin Direct Bilirubin CK-MB (CK-2) 4.8 H 5.1 H NT-Pro-B Natriuret Pep Albumin Crossmatch 07/13/18 07/13/18 07/14/18 09:10 12:36 04:38 WBC RBC 2.25 L Hgb 7.4 L 7.2 L Hct 22.5 L 21.3 L MCV 95 H RDW 16.3 H Lymph % (Auto) 12.8 L [place] % (Auto) 8.7 H Lymph # [place] # 0.9 H Seg Neutrophils % 74.9 H Seg Neutrophils # PT 30.3 H INR 2.83 H APTT BUN Creatinine Glucose Total Bilirubin Direct Bilirubin CK-MB (CK-2) NT-Pro-B Natriuret Pep Albumin Crossmatch 07/14/18 07/14/18 07/15/18 04:38 04:38 04:45 WBC RBC 2.19 L Hgb 6.9 L Hct 21.1 L MCV 96 H RDW 17.5 H Lymph % (Auto) 12.9 L [place] % (Auto) 12.1 H Lymph # [place] # 1.3 H Seg Neutrophils % 72.4 H Seg Neutrophils # 8.0 H PT 28.3 H INR 2.46 H APTT BUN 25 H Creatinine Glucose 134 H Total Bilirubin 1.30 H Direct Bilirubin CK-MB (CK-2) NT-Pro-B Natriuret Pep Albumin Crossmatch 07/15/18 07/15/18 07/16/18 04:45 04:45 04:46 WBC 13.5 H RBC 2.71 L Hgb 8.3 L Hct 25.0 L MCV RDW 17.7 H Lymph % (Auto) 10.8 L [place] % (Auto) 13.0 H Lymph # [place] # 1.8 H Seg Neutrophils % 73.9 H Seg Neutrophils # 10.0 H PT 28.9 H INR 2.52 H APTT 59.8 H BUN Creatinine Glucose 141 H Total Bilirubin 1.80 H Direct Bilirubin CK-MB (CK-2) NT-Pro-B Natriuret Pep Albumin Crossmatch 07/16/18 07/16/18 07/17/18 04:46 04:46 05:06 WBC 12.2 H RBC 2.82 L Hgb 8.5 L Hct 25.5 L MCV RDW 17.0 H Lymph % (Auto) 8.7 L [place] % (Auto) 11.1 H Lymph # 1.1 L [place] # 1.4 H Seg Neutrophils % 77.9 H Seg Neutrophils # 9.5 H PT 18.4 H INR 1.44 H APTT BUN Creatinine Glucose 121 H Total Bilirubin 3.00 H Direct Bilirubin CK-MB (CK-2) NT-Pro-B Natriuret Pep Albumin 3.6 L Crossmatch 07/17/18 07/17/18 05:06 05:06 WBC RBC Hgb Hct MCV RDW Lymph % (Auto) [place] % (Auto) Lymph # [place] # Seg Neutrophils % Seg Neutrophils # PT 17.7 H INR 1.37 H APTT BUN Creatinine Glucose 120 H Total Bilirubin Direct Bilirubin CK-MB (CK-2) NT-Pro-B Natriuret Pep Albumin Crossmatch Chest x-ray: report reviewed, image reviewed (clear lungs)
--- NOTE | 2018-07-17 16:05 | Post Operative Note ---
Pre-op diagnosis: anemia Post-op diagnosis: same Findings: EGD: hiatal hernia - gastritis - negative other Colonoscopy: diverticulosis - internal hemorrhoids - negative other Procedure: EGD/colonoscopy Anesthesia: MAC Surgeon: ROGER ALCOCER Estimated blood loss: none Pathology: list Specimen disposition: to lab Condition: stable Disposition: floor
--- NOTE | 2018-07-17 16:22 | Event Note ---
Date: 07/17/18 Patient underwent EGD and colonoscopy; Tolerated the procedure well EGD: hiatal hernia, gastritis,negative other Colonoscopy: diverticulosis, internal hemorrhoids, negative other Okay to resume anticoagulation but GI Once cardiology changes to oral medications for A. fib with RVR And if patient is stable, can be transferred out of ICU this evening
[2018-07-17] MEDS ORDERED: CARDIZEM PO ONE (16:31)
[2018-07-17] MEDS ORDERED: COUMADIN PO SCH ×2 (17:00)
--- NOTE | 2018-07-17 17:23 | Operative Report ---
PROCEDURE: EGD. INDICATION: 1. Anemia. 2. GI bleed. MEDICATIONS: Propofol per TOOL KEEPER. COMPLICATIONS: None. DESCRIPTION OF PROCEDURE: The patient was done in the Medical Intensive Care Unit. The patient had the procedure discussed with him at length. All risks, complications, and benefits discussed, which the patient signed for the procedure to be performed. The patient was placed in left lateral decubitus position. Mouth block was placed in the patient's oral cavity. After adequate sedation medication as above, endoscope was introduced into the mouth and brought to level of the second portion of duodenum. Retroflexion view performed. The patient's vital signs remained stable throughout the procedure. FINDINGS: There was noted to be a small hiatal hernia at GE junction 38 cm from the gums. The esophagus otherwise appeared to be normal. Mild gastritis noted in the stomach. The stomach otherwise appeared to be normal. The duodenum appeared to be normal. Retroflexion view performed in the stomach showed no other pathology other than noted above. The patient tolerated the procedure well. No complications during the procedure. IMPRESSION: 1. Hiatal hernia. 2. Otherwise, normal esophagus. 3. Gastritis. 4. Otherwise, normal stomach. 5. Normal duodenum. RECOMMENDATIONS: 1. Follow hematocrit and transfuse as needed. 2. PPI daily. 3. Colonoscopy to follow further recommendation based on colonoscopy results. JOB# [id number] HENRY/JUHI ENCISO
--- NOTE | 2018-07-17 19:02 | Operative Report ---
PROCEDURE: Colonoscopy. INDICATION: 1. Anemia. 2. Possible GI bleed. MEDICATIONS: Propofol per MOVING PICTURE PRODUCER. COMPLICATIONS: None. DESCRIPTION OF PROCEDURE: The patient was brought to Medical Intensive Care Unit. The patient had the procedure discussed with him at length. All risks, complications, and benefits discussed, which the patient signed for the procedure performed. The patient was placed in left lateral decubitus position. Rectal exam performed prior to insertion of the scope. After adequate sedation medication as above, scope was inserted into the rectum and brought to the level of cecum. Ileocecal valve and appendiceal orifice, cecal strap were adequately visualized. Colonoscope was then removed and mucosa of colon visualized. Prep quality for this procedure was fair. The patient's vital signs remained stable throughout the procedure. FINDINGS: There were no mass, lesions, or polyps noted during this procedure. Few small sigmoid diverticula noted. Prep quality was fair to poor. There were noted to be small internal hemorrhoids on retroflexion. The patient tolerated the procedure well. No complications during the procedure. IMPRESSION: 1. Mild diverticulosis. 2. Small internal hemorrhoids. 3. Fair to poor prep. 4. Otherwise, normal colonoscopy. RECOMMENDATIONS: 1. High fiber diet. 2. Follow hematocrit and transfuse as needed. 3. Consider PillCam for small bowel evaluation as an outpatient. 4. Okay to discharge from GI standpoint. JOB# [id number] CAB/NTS
[2018-07-18] MEDS: APRESOLINE IV PRN (00:44)
[2018-07-18] MEDS: DILAUDID IV PRN ×4 (03:44→21:31)
[2018-07-18 05:15] LABS: Basophils % (Auto) 0.3 % (0.0-1.8); Eosinophils # (Auto) 0.4 K/mm3 (0.0-0.4); Eosinophils % (Auto) 3.7 % (0.0-4.3); Hemoglobin 8.7 gm/dl (11.8-15.2); Lymphocytes % (Auto) 9.8 % (13.4-35.0); Mean Corpuscular HGB Conc 33 % (32-34); Mean Corpuscular Hemoglobin 30 pg (28-32); Mean Corpuscular Volume 92 fl (84-94); Monocytes # (Auto) 1.1 K/mm3 (0.0-0.8); Monocytes % (Auto) 10.9 % (0.0-7.3); Platelet Count 240 K/mm3 (140-440); Red Blood Count 2.85 M/mm3 (3.65-5.03); Red Cell Distribution Width 16.5 % (13.2-15.2)
[2018-07-18 05:23] LABS: INR 1.27 (0.87-1.13)
[2018-07-18 05:36] LABS: BUN/Creatinine Ratio 11; Blood Urea Nitrogen 13 mg/dL (9-20); Calcium 8.3 mg/dL (8.4-10.2); Hemolysis Index 0
[2018-07-18] MEDS: NITRO-BID 2% TP SCH ×2 (06:11→15:28)
[2018-07-18] MEDS: TOPROL XL PO SCH ×2 (09:19→21:30)
--- NOTE | 2018-07-18 10:19 | Progress Note ---
Assessment and Plan S/p endoscopy yesterday - okay to resume enteral intake and anticoagulants per GI. 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 Indications, potential risks and benefits of remote computer terminal operator OAC in regards to atrial fibrillation reviewed and pt states that he is willing to assume the risks of discontinuation of systemic AC. He admits that he continues to consume ETOH heavily and is aware that his consumption could also contribute to liver disease and/or reoccurrence of bleeding in the future. Cessation of ETOH strongly encouraged. D/w Dr. Powell who will d/c coumadin and initiate ASA 81. Resume home PO cardizem and observe HR response. Currently stable cardiac status. Pt may tx out of CCU to telemetry from cardiology standpoint. The patient has been seen in conjunction with Dr. Thompson who agrees with the assessment and plan of care. - Patient Problems (1) GI bleed Current Visit: Yes Status: Acute (2) Symptomatic anemia Current Visit: Yes Status: Acute (3) Anticoagulated on Coumadin Current Visit: Yes Status: Chronic (4) Atrial fibrillation with rapid ventricular response Current Visit: Yes Status: Chronic (5) Chest pain Current Visit: Yes Status: Acute (6) HTN (hypertension) Current Visit: Yes Status: Chronic Qualifiers: Hypertension type: essential hypertension Qualified Code(s): I10 - Essential (primary) hypertension (7) Diabetes mellitus Current Visit: Yes Status: Chronic Qualifiers: Diabetes mellitus type: type 2 (8) Alcohol abuse Current Visit: Yes Status: Chronic (9) Total bilirubin, elevated Current Visit: Yes Status: Acute Subjective Date of service: 07/18/18 Principal diagnosis: GI bleed, Perm Afib with RVR, Symptomatic anemia Interval history: pt resting comfortably in bed, no current cardiac complaints. s/p endoscopy yesterday. tele reviewed - in AFib with HR 100s. Objective Last Vital Signs Temp 98.7 F 07/18/18 08:00 Pulse 96 H 07/18/18 08:45 Resp 12 07/18/18 08:45 BP 133/88 07/18/18 08:45 Pulse Ox 99 07/18/18 08:45 - Physical Examination General: No Apparent Distress HEENT: Positive: EOMI, Pallor, Normocephaly, Mucus Membranes Moist Neck: Positive: neck supple, trachea midline Cardiac: Positive: irregularly irregular, S1/S2 Lungs: Positive: clear to auscultation Neuro: Positive: Grossly Intact Abdomen: Positive: Soft, Active Bowel Sounds. Negative: Tender Skin: Positive: Clear. Negative: Rash Musculoskeletal: Normal Range of Motion Extremities: Present: normal. Absent: edema - Labs and Meds Coagulation 07/18/18 Range/Units 04:37 PT 16.6 H (12.2-14.9) Sec. INR 1.27 H (0.87-1.13) CBC 07/18/18 Range/Units 04:37 WBC 10.5 (4.5-11.0) K/mm3 RBC 2.85 L (3.65-5.03) M/mm3 Hgb 8.7 L (11.8-15.2) gm/dl Hct 26.0 L (35.5-45.6) % Plt Count 240 (140-440) K/mm3 Lymph # 1.0 L (1.2-5.4) K/mm3 [place] # 1.1 H (0.0-0.8) K/mm3 Eos # 0.4 (0.0-0.4) K/mm3 Baso # 0.0 (0.0-0.1) K/mm3 Comprehensive Metabolic Panel 07/18/18 Range/Units 04:37 Sodium 138 (137-145) mmol/L Potassium 4.0 (3.6-5.0) mmol/L Chloride 101.6 (98-107) mmol/L Carbon Dioxide 25 (22-30) mmol/L BUN 13 (9-20) mg/dL Creatinine 1.2 (0.8-1.5) mg/dL Glucose 114 H (75-100) mg/dL Calcium 8.3 L (8.4-10.2) mg/dL - Imaging and Cardiology EKG: report reviewed Echo: report reviewed (07/13/2018: EF 50-55%, mild LVH, trace MR, trace TR) - Telemetry EKG Rhythm: Atrial Fibrillation
[2018-07-18] MEDS: CARDIZEM CD PO SCH (10:24)
[2018-07-18] MEDS: LASIX PO SCH (10:24)
[2018-07-18] MEDS: PROTONIX PO SCH (10:25)
[2018-07-18] MEDS: HALFPRIN EC PO SCH (10:33)
--- NOTE | 2018-07-18 12:38 | Gastroenterology Progress Note ---
Assessment and Plan 1.anemia -INR 1.27 -H/H 8.7/26.0-stable -continue to monitor H/H and transfuse as needed -s/p EGD/colonoscopy yesterday that revealed a hiatal hernia, gastritis, diverticulosis, and internal hemorrhoids -clinically, patient is stable with no active signs of bleeding overnight or this am. Denies abd pain or N/V. Tolerating diet. -okay to resume anticoagulants as needed -continue PPI and supportive care -recommend outpatient pill cam for further evaluation of anemia -will need follow up clinic appt in 2 weeks upon discharge -no further GI recommendations at this time -will sign off, please call if needed Subjective Date of service: 07/18/18 Principal diagnosis: GI bleed, Perm Afib with RVR, Symptomatic anemia Interval history: Patient w/o acute distress. No active signs of bleeding overnight or this am. Denies abd pain or N/V. Tolerating diet. Objective - Constitutional Vitals: Temp Pulse Resp BP Pulse Ox 98.7 F 100 H 12 109/85 99 07/18/18 12:00 07/18/18 10:24 07/18/18 08:45 07/18/18 10:24 07/18/18 08:45 General appearance: no acute distress - Respiratory Respiratory: bilateral: CTA - Cardiovascular Rhythm: irregularly irregular - Gastrointestinal General gastrointestinal: Present: soft, non-tender, non-distended, normal bowel sounds - Neurologic Neurological: alert and oriented x3 - Labs CBC & Chem 7: 07/18/18 04:37 07/18/18 04:37 Labs: Laboratory Results - last 24 hr 07/17/18 07/18/18 07/18/18 22:19 04:37 04:37 WBC 10.5 RBC 2.85 L Hgb 8.7 L Hct 26.0 L MCV 92 MCH 30 MCHC 33 RDW 16.5 H Plt Count 240 Lymph % (Auto) 9.8 L [place] % (Auto) 10.9 H Eos % (Auto) 3.7 Baso % (Auto) 0.3 Lymph # 1.0 L [place] # 1.1 H Eos # 0.4 Baso # 0.0 Seg Neutrophils % 75.3 H Seg Neutrophils # 7.9 H PT 16.6 H INR 1.27 H Sodium Potassium Chloride Carbon Dioxide Anion Gap BUN Creatinine Estimated GFR BUN/Creatinine Ratio Glucose POC Glucose 137 H Calcium 07/18/18 04:37 WBC RBC Hgb Hct MCV MCH MCHC RDW Plt Count Lymph % (Auto) [place] % (Auto) Eos % (Auto) Baso % (Auto) Lymph # [place] # Eos # Baso # Seg Neutrophils % Seg Neutrophils # PT INR Sodium 138 Potassium 4.0 Chloride 101.6 Carbon Dioxide 25 Anion Gap 15 BUN 13 Creatinine 1.2 Estimated GFR > 60 BUN/Creatinine Ratio 11 Glucose 114 H POC Glucose Calcium 8.3 L
--- NOTE | 2018-07-18 14:43 | Progress Note ---
Assessment and Plan Imp: 1. Afib w/ RVR 2. GI bleeding 3. Acute blood loss anemia 4. CKD 5. Obesity Rec: 1. Agree w/ transfer to floor 2. Will sign off once out of ICU; please call with questions Plan of care reviewed w/ patient, he understands/agrees Subjective Date of service: 07/18/18 Principal diagnosis: GI bleed, Perm Afib with RVR, Symptomatic anemia Interval history: No events. Tolerating PO. Off Cardizem drip. No bleeding. No complaints. Active Medications Acetaminophen (Tylenol) 650 mg PO Q4H PRN PRN Reason: Headache Last Admin: 07/16/18 20:17 Dose: 650 mg Aspirin (Halfprin Ec) 81 mg PO QDAY [facility] Last Admin: 07/18/18 10:33 Dose: 81 mg Diltiazem HCl (Cardizem Cd) 240 mg PO QDAY [facility] Last Admin: 07/18/18 10:24 Dose: 240 mg Furosemide (Lasix) 40 mg PO QDAY [facility] Last Admin: 07/18/18 10:24 Dose: 40 mg Hydralazine HCl (Apresoline) 10 mg IV Q4HR PRN PRN Reason: Hypertension Last Admin: 07/18/18 00:44 Dose: 10 mg Hydromorphone HCl (Dilaudid) 1 mg IV Q4H PRN PRN Reason: Pain, Moderate (4-6) Last Admin: 07/18/18 10:32 Dose: 1 mg Metoprolol Succinate (Toprol Xl) 25 mg PO BID [facility] Last Admin: 07/17/18 22:00 Dose: 25 mg Nitroglycerin (Nitrostat) 0.4 mg SL .Q5MIN PRN PRN Reason: Chest Pain Nitroglycerin (Nitro-Bid 2%) 0.5 inch TP BIDNTG [facility]; Protocol Last Admin: 07/18/18 06:11 Dose: 0.5 inch Ondansetron HCl (Zofran) 4 mg IV Q8H PRN PRN Reason: Nausea And Vomiting Last Admin: 07/13/18 00:03 Dose: 4 mg Pantoprazole Sodium (Protonix) 40 mg PO DAILY [facility] Last Admin: 07/18/18 10:25 Dose: 40 mg Zolpidem Tartrate (Ambien) 5 mg PO QHS PRN PRN Reason: Sleep Objective Vital Signs - 12hr 07/18/18 07/18/18 07/18/18 02:45 03:00 03:15 Temperature Pulse Rate 81 89 104 H Pulse Rate [ From Monitor] Respiratory 11 L 13 20 Rate Blood Pressure 112/73 126/66 126/66 O2 Sat by Pulse 98 93 97 Oximetry 07/18/18 07/18/18 07/18/18 03:31 03:44 03:45 Temperature Pulse Rate 98 H 82 Pulse Rate [ From Monitor] Respiratory 15 12 12 Rate Blood Pressure 147/88 147/88 O2 Sat by Pulse 96 99 Oximetry 07/18/18 07/18/18 07/18/18 04:00 04:01 04:15 Temperature 98.6 F Pulse Rate 86 82 Pulse Rate [ 95 H From Monitor] Respiratory 11 L 14 11 L Rate Blood Pressure 177/102 177/102 O2 Sat by Pulse 97 94 97 Oximetry 07/18/18 07/18/18 07/18/18 04:31 04:45 05:01 Temperature Pulse Rate 90 92 H 100 H Pulse Rate [ From Monitor] Respiratory 10 L 18 16 Rate Blood Pressure 170/101 170/101 158/110 O2 Sat by Pulse 94 97 97 Oximetry 07/18/18 07/18/18 07/18/18 05:15 05:31 05:45 Temperature Pulse Rate 96 H 83 117 H Pulse Rate [ From Monitor] Respiratory 10 L 13 23 Rate Blood Pressure 158/110 149/101 149/101 O2 Sat by Pulse 97 97 Oximetry 07/18/18 07/18/18 07/18/18 06:01 06:11 06:15 Temperature Pulse Rate 105 H 113 H 102 H Pulse Rate [ From Monitor] Respiratory 24 21 Rate Blood Pressure 149/101 124/79 124/79 O2 Sat by Pulse 98 Oximetry 07/18/18 07/18/18 07/18/18 06:30 06:45 07:00 Temperature Pulse Rate 94 H 93 H 93 H Pulse Rate [ From Monitor] Respiratory 12 13 10 L Rate Blood Pressure 125/69 123/71 126/80 O2 Sat by Pulse 98 98 98 Oximetry 07/18/18 07/18/18 07/18/18 07:15 07:30 07:45 Temperature Pulse Rate 93 H 92 H 91 H Pulse Rate [ From Monitor] Respiratory 11 L 8 L 10 L Rate Blood Pressure 129/86 127/89 142/88 O2 Sat by Pulse 98 82 L 99 Oximetry 07/18/18 07/18/18 07/18/18 08:00 08:15 08:31 Temperature 98.7 F Pulse Rate 99 H 94 H 110 H Pulse Rate [ 99 H From Monitor] Respiratory 14 11 L 18 Rate Blood Pressure 142/88 139/87 139/87 O2 Sat by Pulse 99 99 91 Oximetry 07/18/18 07/18/18 07/18/18 08:40 08:45 09:00 Temperature Pulse Rate 96 H 102 H Pulse Rate [ From Monitor] Respiratory 12 12 Rate Blood Pressure 133/88 133/77 O2 Sat by Pulse 98 99 98 Oximetry 07/18/18 07/18/18 07/18/18 09:15 09:30 09:45 Temperature Pulse Rate 102 H 102 H 91 H Pulse Rate [ From Monitor] Respiratory 12 11 L 9 L Rate Blood Pressure 117/79 123/75 126/80 O2 Sat by Pulse 99 98 91 Oximetry 07/18/18 07/18/18 07/18/18 10:00 10:01 10:15 Temperature Pulse Rate 109 H 109 H 100 H Pulse Rate [ From Monitor] Respiratory 12 12 Rate Blood Pressure 112/79 112/79 O2 Sat by Pulse 99 98 Oximetry 07/18/18 07/18/18 07/18/18 10:24 10:30 10:45 Temperature Pulse Rate 100 H 95 H 97 H Pulse Rate [ From Monitor] Respiratory 11 L 18 Rate Blood Pressure 109/85 108/81 101/80 O2 Sat by Pulse 99 91 Oximetry 07/18/18 07/18/18 07/18/18 11:00 11:15 11:31 Temperature Pulse Rate 99 H 106 H 94 H Pulse Rate [ From Monitor] Respiratory 10 L 12 9 L Rate Blood Pressure 123/76 101/80 113/58 O2 Sat by Pulse 93 96 96 Oximetry 07/18/18 07/18/18 07/18/18 11:45 12:00 12:15 Temperature 98.7 F Pulse Rate 90 95 H 115 H Pulse Rate [ From Monitor] Respiratory 9 L 12 12 Rate Blood Pressure 101/71 114/69 O2 Sat by Pulse 97 97 96 Oximetry 07/18/18 07/18/18 07/18/18 12:30 12:45 13:00 Temperature Pulse Rate 125 H 101 H 103 H Pulse Rate [ From Monitor] Respiratory 18 10 L 14 Rate Blood Pressure 114/69 118/66 118/66 O2 Sat by Pulse 97 96 95 Oximetry 07/18/18 07/18/18 13:16 13:30 Temperature Pulse Rate 93 H 92 H Pulse Rate [ From Monitor] Respiratory 12 13 Rate Blood Pressure 115/78 103/66 O2 Sat by Pulse 97 98 Oximetry Constitutional: no acute distress, alert Eyes: non-icteric ENT: oropharynx moist Neck: supple Effort: normal Ascultation: Bilateral: clear Cardiovascular: irregular rhythm (no mrg) Gastrointestinal: normoactive bowel sounds, soft, non-tender, other (obese) Integumentary: normal Extremities: no cyanosis, no edema, pink and warm Neurologic: normal mental status, non-focal exam, pupils equal and round, CN II- XII normal Psychiatric: mood appropriate, affect normal CBC and BMP: 07/18/18 04:37 07/18/18 04:37 ABG, PT/INR, D-dimer: PT/INR, D-dimer PT 16.6 Sec. (12.2-14.9) H 07/18/18 04:37 INR 1.27 (0.87-1.13) H 07/18/18 04:37 Abnormal lab findings: Abnormal Labs 07/12/18 07/12/18 07/12/18 19:52 19:52 20:21 WBC RBC 2.06 L Hgb 6.5 L Hct 19.6 L* MCV 95 H RDW 15.7 H Lymph % (Auto) [place] % (Auto) 7.4 H Lymph # [place] # Seg Neutrophils % Seg Neutrophils # PT INR APTT BUN 39 H Creatinine 1.6 H Glucose 168 H POC Glucose Calcium Total Bilirubin Direct Bilirubin CK-MB (CK-2) NT-Pro-B Natriuret Pep Albumin Crossmatch See Detail 07/12/18 07/12/18 07/13/18 20:28 20:28 02:09 WBC RBC Hgb 7.4 L Hct 22.7 L MCV RDW Lymph % (Auto) [place] % (Auto) Lymph # [place] # Seg Neutrophils % Seg Neutrophils # PT 36.3 H INR 3.58 H APTT 81.0 H* BUN Creatinine Glucose POC Glucose Calcium Total Bilirubin Direct Bilirubin 0.3 H CK-MB (CK-2) NT-Pro-B Natriuret Pep 2876 H Albumin Crossmatch 07/13/18 07/13/18 07/13/18 02:09 04:37 04:37 WBC RBC Hgb 7.3 L Hct 21.4 L MCV RDW Lymph % (Auto) [place] % (Auto) Lymph # [place] # Seg Neutrophils % Seg Neutrophils # PT INR APTT BUN 33 H Creatinine Glucose 151 H POC Glucose Calcium Total Bilirubin Direct Bilirubin CK-MB (CK-2) 4.8 H 5.1 H NT-Pro-B Natriuret Pep Albumin Crossmatch 07/13/18 07/13/18 07/14/18 09:10 12:36 04:38 WBC RBC 2.25 L Hgb 7.4 L 7.2 L Hct 22.5 L 21.3 L MCV 95 H RDW 16.3 H Lymph % (Auto) 12.8 L [place] % (Auto) 8.7 H Lymph # [place] # 0.9 H Seg Neutrophils % 74.9 H Seg Neutrophils # PT 30.3 H INR 2.83 H APTT BUN Creatinine Glucose POC Glucose Calcium Total Bilirubin Direct Bilirubin CK-MB (CK-2) NT-Pro-B Natriuret Pep Albumin Crossmatch 07/14/18 07/14/18 07/15/18 04:38 04:38 04:45 WBC RBC 2.19 L Hgb 6.9 L Hct 21.1 L MCV 96 H RDW 17.5 H Lymph % (Auto) 12.9 L [place] % (Auto) 12.1 H Lymph # [place] # 1.3 H Seg Neutrophils % 72.4 H Seg Neutrophils # 8.0 H PT 28.3 H INR 2.46 H APTT BUN 25 H Creatinine Glucose 134 H POC Glucose Calcium Total Bilirubin 1.30 H Direct Bilirubin CK-MB (CK-2) NT-Pro-B Natriuret Pep Albumin Crossmatch 07/15/18 07/15/18 07/16/18 04:45 04:45 04:46 WBC 13.5 H RBC 2.71 L Hgb 8.3 L Hct 25.0 L MCV RDW 17.7 H Lymph % (Auto) 10.8 L [place] % (Auto) 13.0 H Lymph # [place] # 1.8 H Seg Neutrophils % 73.9 H Seg Neutrophils # 10.0 H PT 28.9 H INR 2.52 H APTT 59.8 H BUN Creatinine Glucose 141 H POC Glucose Calcium Total Bilirubin 1.80 H Direct Bilirubin CK-MB (CK-2) NT-Pro-B Natriuret Pep Albumin Crossmatch 07/16/18 07/16/18 07/17/18 04:46 04:46 05:06 WBC 12.2 H RBC 2.82 L Hgb 8.5 L Hct 25.5 L MCV RDW 17.0 H Lymph % (Auto) 8.7 L [place] % (Auto) 11.1 H Lymph # 1.1 L [place] # 1.4 H Seg Neutrophils % 77.9 H Seg Neutrophils # 9.5 H PT 18.4 H INR 1.44 H APTT BUN Creatinine Glucose 121 H POC Glucose Calcium Total Bilirubin 3.00 H Direct Bilirubin CK-MB (CK-2) NT-Pro-B Natriuret Pep Albumin 3.6 L Crossmatch 07/17/18 07/17/18 07/17/18 05:06 05:06 22:19 WBC RBC Hgb Hct MCV RDW Lymph % (Auto) [place] % (Auto) Lymph # [place] # Seg Neutrophils % Seg Neutrophils # PT 17.7 H INR 1.37 H APTT BUN Creatinine Glucose 120 H POC Glucose 137 H Calcium Total Bilirubin Direct Bilirubin CK-MB (CK-2) NT-Pro-B Natriuret Pep Albumin Crossmatch 07/18/18 07/18/18 07/18/18 04:37 04:37 04:37 WBC RBC 2.85 L Hgb 8.7 L Hct 26.0 L MCV RDW 16.5 H Lymph % (Auto) 9.8 L [place] % (Auto) 10.9 H Lymph # 1.0 L [place] # 1.1 H Seg Neutrophils % 75.3 H Seg Neutrophils # 7.9 H PT 16.6 H INR 1.27 H APTT BUN Creatinine Glucose 114 H POC Glucose Calcium 8.3 L Total Bilirubin Direct Bilirubin CK-MB (CK-2) NT-Pro-B Natriuret Pep Albumin Crossmatch Chest x-ray: report reviewed, image reviewed
--- NOTE | 2018-07-18 16:52 | Progress Note ---
Assessment and Plan /GI bleeding; secondary to coagulopathy EGD colonoscopy on 07/17/18, GI following no overt sign of bleeding .Coagulopathy/Coumadin toxicity; patient received vitamin K Patient's INR trending down , Coumadin on hold and patient refusing to take it again /A. fib with rapid ventricular rate; management per cardiology off Cardizem drip today, changed to po /Severe anemia/acute blood loss; s/p 3 unit PRBC trasfusion hemoglobin improved to 8.5, monitor H&H /Acute kidney injury; probably vasomotor nephropathy,Resolved /Hypertension; well controlled, on current antihypertensives /Insomnia; Ambien as needed /Alcohol abuse, counselled /DVT prophylaxis; SCDs Brief History: 52-year-old obese male patient with significant history of chronic atrial fibrillation on Coumadin with beta blockers, was admitted through emergency room with chest pain, GI bleeding, A. fib with rapid ventricular rate, coagulopathy/Coumadin toxicity Janis to ICU on Cardizem drip, received 3 units of PRBC, coagulopathy is corrected, Evaluated by GI, scheduled for EGD colonoscopy 07/17/18 Hospitalist Physical General appearance: Present: no acute distress, well-nourished, obese - EENT Eyes: Present: PERRL, EOM intact - Neck Neck: Present: supple, normal ROM - Respiratory Respiratory effort: normal Respiratory: negative: rales, rhonchi, wheezing - Cardiovascular Rhythm: regular Heart Sounds: Present: S1 & S2 - Extremities Extremities: no ischemia, No edema - Abdominal General gastrointestinal: soft, non-tender, non-distended, normal bowel sounds - Integumentary Integumentary: Present: clear, warm - Psychiatric Psychiatric: appropriate mood/affect, cooperative - Neurologic Neurologic: CNII-XII intact, moves all extremities Subjective Date of service: 07/18/18 Principal diagnosis: GI bleed, Perm Afib with RVR, Symptomatic anemia Interval history: Patient seen and examined medical records reviewed s/p EGD and colonoscopy yesterday No new episodes of bleeding Alert awake oriented 3 Vital signs reviewed transfer out of ICU refusing coumadin, Objective - Constitutional Vitals: Vital Signs - 12hr 07/18/18 07/18/18 07/18/18 05:01 05:15 05:31 Temperature Pulse Rate 100 H 96 H 83 Pulse Rate [ From Monitor] Respiratory 16 10 L 13 Rate Blood Pressure 158/110 158/110 149/101 O2 Sat by Pulse 97 97 97 Oximetry 07/18/18 07/18/18 07/18/18 05:45 06:01 06:11 Temperature Pulse Rate 117 H 105 H 113 H Pulse Rate [ From Monitor] Respiratory 23 24 Rate Blood Pressure 149/101 149/101 124/79 O2 Sat by Pulse Oximetry 07/18/18 07/18/18 07/18/18 06:15 06:30 06:45 Temperature Pulse Rate 102 H 94 H 93 H Pulse Rate [ From Monitor] Respiratory 21 12 13 Rate Blood Pressure 124/79 125/69 123/71 O2 Sat by Pulse 98 98 98 Oximetry 07/18/18 07/18/18 07/18/18 07:00 07:15 07:30 Temperature Pulse Rate 93 H 93 H 92 H Pulse Rate [ From Monitor] Respiratory 10 L 11 L 8 L Rate Blood Pressure 126/80 129/86 127/89 O2 Sat by Pulse 98 98 82 L Oximetry 07/18/18 07/18/18 07/18/18 07:45 08:00 08:15 Temperature 98.7 F Pulse Rate 91 H 99 H 94 H Pulse Rate [ 99 H From Monitor] Respiratory 10 L 14 11 L Rate Blood Pressure 142/88 142/88 139/87 O2 Sat by Pulse 99 99 99 Oximetry 07/18/18 07/18/18 07/18/18 08:31 08:40 08:45 Temperature Pulse Rate 110 H 96 H Pulse Rate [ From Monitor] Respiratory 18 12 Rate Blood Pressure 139/87 133/88 O2 Sat by Pulse 91 98 99 Oximetry 07/18/18 07/18/18 07/18/18 09:00 09:15 09:30 Temperature Pulse Rate 102 H 102 H 102 H Pulse Rate [ From Monitor] Respiratory 12 12 11 L Rate Blood Pressure 133/77 117/79 123/75 O2 Sat by Pulse 98 99 98 Oximetry 07/18/18 07/18/18 07/18/18 09:45 10:00 10:01 Temperature Pulse Rate 91 H 109 H 109 H Pulse Rate [ From Monitor] Respiratory 9 L 12 Rate Blood Pressure 126/80 112/79 O2 Sat by Pulse 91 99 Oximetry 07/18/18 07/18/18 07/18/18 10:15 10:24 10:30 Temperature Pulse Rate 100 H 100 H 95 H Pulse Rate [ From Monitor] Respiratory 12 11 L Rate Blood Pressure 112/79 109/85 108/81 O2 Sat by Pulse 98 99 Oximetry 07/18/18 07/18/18 07/18/18 10:45 11:00 11:15 Temperature Pulse Rate 97 H 99 H 106 H Pulse Rate [ From Monitor] Respiratory 18 10 L 12 Rate Blood Pressure 101/80 123/76 101/80 O2 Sat by Pulse 91 93 96 Oximetry 07/18/18 07/18/18 07/18/18 11:31 11:45 12:00 Temperature 98.7 F Pulse Rate 94 H 90 95 H Pulse Rate [ From Monitor] Respiratory 9 L 9 L 12 Rate Blood Pressure 113/58 101/71 114/69 O2 Sat by Pulse 96 97 97 Oximetry 07/18/18 07/18/18 07/18/18 12:15 12:30 12:45 Temperature Pulse Rate 115 H 125 H 101 H Pulse Rate [ From Monitor] Respiratory 12 18 10 L Rate Blood Pressure 114/69 118/66 O2 Sat by Pulse 96 97 96 Oximetry 07/18/18 07/18/18 07/18/18 13:00 13:16 13:30 Temperature Pulse Rate 103 H 93 H 92 H Pulse Rate [ From Monitor] Respiratory 14 12 13 Rate Blood Pressure 118/66 115/78 103/66 O2 Sat by Pulse 95 97 98 Oximetry 07/18/18 07/18/18 07/18/18 13:46 14:00 14:16 Temperature Pulse Rate 100 H 97 H 102 H Pulse Rate [ From Monitor] Respiratory 12 20 13 Rate Blood Pressure 103/66 148/80 129/82 O2 Sat by Pulse 97 99 98 Oximetry 07/18/18 07/18/18 07/18/18 14:30 14:46 15:00 Temperature Pulse Rate 94 H 90 94 H Pulse Rate [ From Monitor] Respiratory 12 13 11 L Rate Blood Pressure 129/73 128/74 128/74 O2 Sat by Pulse 97 97 97 Oximetry 07/18/18 07/18/18 07/18/18 15:15 15:28 15:30 Temperature Pulse Rate 101 H 99 H 106 H Pulse Rate [ From Monitor] Respiratory 14 13 Rate Blood Pressure 137/77 137/77 137/77 O2 Sat by Pulse 98 98 Oximetry 10/02/18 10/02/18 10/02/18 15:46 16:00 16:15 Temperature 99.8 F H Pulse Rate 100 H 107 H 96 H Pulse Rate [ From Monitor] Respiratory 14 12 13 Rate Blood Pressure 101/80 131/77 141/80 O2 Sat by Pulse 98 97 99 Oximetry 07/18/18 16:30 Temperature Pulse Rate 105 H Pulse Rate [ From Monitor] Respiratory 16 Rate Blood Pressure 157/115 O2 Sat by Pulse 97 Oximetry - Labs CBC & Chem 7: 07/18/18 04:37 07/18/18 04:37 Labs: Abnormal lab results 07/17/18 07/18/18 07/18/18 Range/Units 22:19 04:37 04:37 RBC 2.85 L (3.65-5.03) M/mm3 Hgb 8.7 L (11.8-15.2) gm/dl Hct 26.0 L (35.5-45.6) % RDW 16.5 H (13.2-15.2) % Lymph % (Auto) 9.8 L (13.4-35.0) % [place] % (Auto) 10.9 H (0.0-7.3) % Lymph # 1.0 L (1.2-5.4) K/mm3 [place] # 1.1 H (0.0-0.8) K/mm3 Seg Neutrophils % 75.3 H (40.0-70.0) % Seg Neutrophils # 7.9 H (1.8-7.7) K/mm3 PT 16.6 H (12.2-14.9) Sec. INR 1.27 H (0.87-1.13) Glucose (75-100) mg/dL POC Glucose 137 H (70-105) Calcium (8.4-10.2) mg/dL 07/18/18 Range/Units 04:37 RBC (3.65-5.03) M/mm3 Hgb (11.8-15.2) gm/dl Hct (35.5-45.6) % RDW (13.2-15.2) % Lymph % (Auto) (13.4-35.0) % [place] % (Auto) (0.0-7.3) % Lymph # (1.2-5.4) K/mm3 [place] # (0.0-0.8) K/mm3 Seg Neutrophils % (40.0-70.0) % Seg Neutrophils # (1.8-7.7) K/mm3 PT (12.2-14.9) Sec. INR (0.87-1.13) Glucose 114 H (75-100) mg/dL POC Glucose (70-105) Calcium 8.3 L (8.4-10.2) mg/dL
[2018-07-19] MEDS: DILAUDID IV PRN ×2 (03:39→09:55)
[2018-07-19 06:06] LABS: INR 1.54 (0.87-1.13)
[2018-07-19] MEDS: NITRO-BID 2% TP SCH (06:29)
[2018-07-19] MEDS: HALFPRIN EC PO SCH (09:54)
[2018-07-19] MEDS: LASIX PO SCH (09:54)
[2018-07-19] MEDS: TOPROL XL PO SCH (09:54)
[2018-07-19] MEDS: PROTONIX PO SCH (09:54)
[2018-07-19] MEDS: CARDIZEM CD PO SCH (09:54)
--- NOTE | 2018-07-19 10:51 | Progress Note ---
Assessment and Plan Currently stable cardiac status. Cont present cardiac regimen. Pt declines intermediate systemic AC. Pt may discharge home from cardiology standpoint. Recommend follow up in our office with Dr. Miner within 1-2 weeks of hospital discharge ([phone]) . The patient has been seen in conjunction with Dr. Thompson who agrees with the assessment and plan of care. - Patient Problems (1) GI bleed Current Visit: Yes Status: Acute (2) Symptomatic anemia Current Visit: Yes Status: Acute (3) Anticoagulated on Coumadin Current Visit: Yes Status: Chronic (4) Atrial fibrillation with rapid ventricular response Current Visit: Yes Status: Chronic (5) Chest pain Current Visit: Yes Status: Acute (6) HTN (hypertension) Current Visit: Yes Status: Chronic Qualifiers: Hypertension type: essential hypertension Qualified Code(s): I10 - Essential (primary) hypertension (7) Diabetes mellitus Current Visit: Yes Status: Chronic Qualifiers: Diabetes mellitus type: type 2 (8) Alcohol abuse Current Visit: Yes Status: Chronic (9) Total bilirubin, elevated Current Visit: Yes Status: Acute Subjective Date of service: 07/19/18 Principal diagnosis: GI bleed, Perm Afib with RVR, Symptomatic anemia Interval history: pt resting comfortably in bed, no current cardiac complaints. tele reviewed - in AFib with CVR. Objective Last Vital Signs Temp 98.0 F 07/19/18 07:36 Pulse 82 07/19/18 07:36 Resp 20 07/19/18 07:36 BP 125/86 07/19/18 07:36 Pulse Ox 100 07/19/18 07:36 - Physical Examination General: No Apparent Distress HEENT: Positive: EOMI, Pallor, Normocephaly, Mucus Membranes Moist Neck: Positive: neck supple, trachea midline Cardiac: Positive: irregularly irregular, S1/S2 Lungs: Positive: clear to auscultation Neuro: Positive: Grossly Intact Abdomen: Positive: Soft, Active Bowel Sounds. Negative: Tender Skin: Positive: Clear. Negative: Rash Musculoskeletal: Normal Range of Motion Extremities: Present: normal. Absent: edema - Labs and Meds Coagulation 07/19/18 Range/Units 04:55 PT 19.4 H (12.2-14.9) Sec. INR 1.54 H (0.87-1.13) - Imaging and Cardiology EKG: report reviewed Echo: report reviewed (07/13/2018: EF 50-55%, mild LVH, trace MR, trace TR)
--- NOTE | 2018-07-19 11:23 | Discharge Summary ---
Providers - Providers Date of Admission: 07/12/18 22:12 Date of discharge: 07/19/18 Attending physician: VICTORIANO COBB 07/12/18 23:29 Consult to Physician [CONS] Routine Comment: Answering Service notified @ [id number] Consulting Provider: GENNY NICHOLSON Physician Instructions: Reason For Exam: A.FIB WITH RVR ON CARDIZEM DRIP 07/13/18 06:00 Consult to Physician [CONS] Routine Comment: Consulting Provider: ARCENIO MARSH Physician Instructions: Reason For Exam: G.I BLEED 07/13/18 07:58 Consult to Physician [CONS] Routine Comment: Consulting Provider: MARYANN WILL Physician Instructions: Reason For Exam: Afib RVR Primary care physician: MOVIE WRITER Hospitalization Condition: Stable Hospital course: Brief History: 52-year-old obese male patient with significant history of chronic atrial fibrillation on Coumadin with beta blockers, was admitted through emergency room with chest pain, GI bleeding, A. fib with rapid ventricular rate, coagulopathy/Coumadin toxicity Janis to ICU on Cardizem drip, received 3 units of PRBC, coagulopathy is corrected, Evaluated by GI, scheduled for EGD colonoscopy 07/17/18 Discharge diagnosis: /GI bleeding; secondary to coagulopathy EGD colonoscopy on 07/17/18, GI following no overt sign of bleeding .Coagulopathy/Coumadin toxicity; patient received vitamin K Patient's INR trending down , Coumadin on hold and patient refusing to take it again /A. fib with rapid ventricular rate; management per cardiology s/p Cardizem drip then transitioned to po Started on eliquis on discharge /Severe anemia/acute blood loss; s/p 3 unit PRBC trasfusion hemoglobin improved to 8.5, monitor H&H /Acute kidney injury; probably vasomotor nephropathy,Resolved /Hypertension; well controlled, on current antihypertensives /Insomnia; Ambien as needed /Alcohol abuse, counselled /DVT prophylaxis; SCDs Disposition: TO HOME OR SELFCARE Time spent for discharge: 34 minutes Core Measure Documentation - Palliative Care Palliative Care/ Comfort Measures: Not Applicable - Core Measures Any of the following diagnoses?: none Exam - Constitutional Vitals: Temp Pulse Resp BP Pulse Ox 98.0 F 82 20 125/86 100 07/19/18 07:36 07/19/18 07:36 07/19/18 07:36 07/19/18 07:36 07/19/18 07:36 Plan Activity: advance as tolerated Weight Bearing Status: Weight Bear as Tolerated Diet: low fat Follow up with: MARYANN WILL MD [Staff Physician] - 7 Days PRIMARY CARE, [Primary Care Provider] - 3-5 Days Prescriptions: Apixaban [Eliquis] 5 mg PO Q12HR #60 tablet Pantoprazole [Protonix TAB] 40 mg PO DAILY #30 tablet
--- NOTE | 2018-07-19 11:25 | Event Note ---
Date: 07/19/18 Pt now states to Dr. Powell that he is agreeable to NOAC. Per Dr. Powell, Eliquis will be initiated at discharge. Domenico GOLDMAN NP / DR. MARTINEZ
[2018-07-19 11:45] VITALS: BP 117/80
[2018-07-19] MEDS ORDERED: ELIQUIS PO SCH (12:00)
== END 2018-07-19 12:30 | disposition home or self-care (01) | DRG 813 ==
LOC: ED 19:32 → CC1 22:12 → 4A 07-18 17:41
PROVIDERS: ADMIT Internal Medicine; ATTEND Internal Medicine
PROC: 30233N1 Transfusion of Nonautologous Red Blood Cells into Peripheral Vein, Percutaneous Approach (ICD-10-PCS; 2018-07-12)
PROC: 0DJ08ZZ Inspection of Upper Intestinal Tract, Via Natural or Artificial Opening Endoscopic (ICD-10-PCS; principal; 2018-07-17)
PROC: 0DJD8ZZ Inspection of Lower Intestinal Tract, Via Natural or Artificial Opening Endoscopic (ICD-10-PCS; 2018-07-17)
DX: D68.32 Hemorrhagic disorder due to extrinsic circulating anticoagulants (principal); N17.0 Acute kidney failure with tubular necrosis; D62 Acute posthemorrhagic anemia; I13.0 Hypertensive heart and chronic kidney disease with heart failure and stage 1 through stage 4 chronic kidney disease, or unspecified chronic kidney disease; K64.8 Other hemorrhoids; I48.91 Unspecified atrial fibrillation; R07.9 Chest pain, unspecified; J44.9 Chronic obstructive pulmonary disease, unspecified; I25.10 Atherosclerotic heart disease of native coronary artery without angina pectoris; E66.9 Obesity, unspecified; K44.9 Diaphragmatic hernia without obstruction or gangrene; T45.515A Adverse effect of anticoagulants, initial encounter; K57.90 Diverticulosis of intestine, part unspecified, without perforation or abscess without bleeding; K29.70 Gastritis, unspecified, without bleeding; G47.00 Insomnia, unspecified; F10.10 Alcohol abuse, uncomplicated; I50.9 Heart failure, unspecified; N18.9 Chronic kidney disease, unspecified; M19.90 Unspecified osteoarthritis, unspecified site; G40.909 Epilepsy, unspecified, not intractable, without status epilepticus; Z79.01 Long term (current) use of anticoagulants; Y92.89 Other specified places as the place of occurrence of the external cause; Z71.41 Alcohol abuse counseling and surveillance of alcoholic; Z88.5 Allergy status to narcotic agent; Z87.442 Personal history of urinary calculi; Z79.899 Other long term (current) drug therapy
CPT/HCPCS: 36415; 36430; 71045; 80048; 80053; 80074; 82270; 82550; 82553; 82962; 83735; 83880; 84484; 85014; 85018; 85025; 85610; 85730; 86850; 86900; 86901; 86920; 93005; 93010; 93306; 94760; C9113; J0360; J1170; J1940; J2001; J2250; J2405; J2704; J3010; J3430; J7030; J7040; P9016

== ENCOUNTER 2021-08-02 19:50 | Emergency (ER) | payer MEDICAID ==
--- NOTE | 2021-08-02 22:23 | Emergency Department Report ---
ED General Adult HPI - General Chief complaint: Dyspnea/Respdistress Stated complaint: SOB FEET/BACK PAIN Time Seen by Provider: 08/02/21 22:00 Source: patient Mode of arrival: Ambulatory Limitations: No Limitations - History of Present Illness Initial comments: 56-year-old male, history of hypertension, CHF, atrial fibrillation on Xarelto, alcohol abuse, presents to ED for evaluation. Patient states he was told by his PCP and appeals reviewer veteran to come to the ED for low hemoglobin. Patient states he had blood drawn approximately 2 to 3 days ago. Patient is unsure what his hemoglobin level was. Patient denies any history of anemia. He does report s ome generalized weakness and mild shortness of breath. Patient also reports that he has been having some epigastric abdominal pain x2 days. Patient reports that he has been having dark-colored stools off and on, as recently as 4 days ago. Patient states he takes Aleve every day for "pain all over." Patient reports a history of back pain as well. Patient reports daily alcohol use. Last drink was today. -: days(s) (3) Associated Symptoms: shortness of breath, weakness. denies: chest pain Treatments Prior to Arrival: none - Related Data Home Medications Medication Instructions Recorded Confirmed Last Taken Metoprolol Xl [Metoprolol 25 mg PO BID 07/13/18 07/13/18 07/12/18 07:00 SUCCINATE ER TAB] 25 mg Previous Rx's Medication Instructions Recorded Last Taken Type Folic Acid [Folvite] 1 mg PO QDAY #30 tablet 05/02/17 Unknown Rx Furosemide [Lasix TAB] 40 mg PO QDAY #30 tablet 05/02/17 Unknown Rx Ipratropium/Albuterol Sulfate 1 ampul IH BIDRT #30 ampul.neb 05/02/17 07/12/18 19:00 Rx [DUONEB *Not for PRN Use*] Thiamine [Vitamin B-1] 100 mg PO QDAY #30 tablet 05/02/17 07/12/18 07:00 Rx dilTIAZem CD [Cardizem CD] 240 mg PO QDAY #30 capsule 05/02/17 Unknown Rx Apixaban [Eliquis] 5 mg PO Q12HR #60 tablet 07/19/18 Unknown Rx Pantoprazole [Protonix TAB] 40 mg PO DAILY #30 tablet 07/19/18 Unknown Rx Allergies Allergy/AdvReac Type Severity Reaction Status Date / Time morphine Allergy Mild Unknown Verified 08/02/21 21:20 ED Review of Systems ROS: Stated complaint: SOB FEET/BACK PAIN Other details as noted in HPI Comment: All other systems reviewed and negative Respiratory: shortness of breath Gastrointestinal: abdominal pain, melena. denies: nausea, vomiting Musculoskeletal: back pain ED Past Medical Hx - Past Medical History Hx Hypertension: Yes Hx Congestive Heart Failure: Yes Hx Diabetes: Yes Hx Liver Disease: No Hx Sickle Cell Disease: No Hx Arthritis: Yes (hands) Hx Seizures: Yes Hx Kidney Stones: Yes Hx Asthma: No Hx COPD: Yes Hx HIV: No Additional medical history: A fib - Surgical History Past Surgical History?: No Hx Pacemaker: No Hx Internal Defibrillator: No - Social History Smoking Status: Former Smoker Substance Use Type: None - Medications Home Medications: Home Medications Medication Instructions Recorded Confirmed Last Taken Type Folic Acid [Folvite] 1 mg PO QDAY #30 tablet 05/02/17 07/13/18 Unknown Rx Furosemide [Lasix TAB] 40 mg PO QDAY #30 tablet 05/02/17 07/13/18 Unknown Rx Ipratropium/Albuterol Sulfate 1 ampul IH BIDRT #30 ampul.neb 05/02/17 07/13/18 07/12/18 19:00 Rx [DUONEB *Not for PRN Use*] Thiamine [Vitamin B-1] 100 mg PO QDAY #30 tablet 05/02/17 07/13/18 07/12/18 07:00 Rx dilTIAZem CD [Cardizem CD] 240 mg PO QDAY #30 capsule 05/02/17 07/13/18 Unknown Rx Metoprolol Xl [Metoprolol 25 mg PO BID 07/13/18 07/13/18 07/12/18 07:00 History SUCCINATE ER TAB] 25 mg Apixaban [Eliquis] 5 mg PO Q12HR #60 tablet 07/19/18 Unknown Rx Pantoprazole [Protonix TAB] 40 mg PO DAILY #30 tablet 07/19/18 Unknown Rx ED Physical Exam - General Limitations: No Limitations General appearance: alert, in no apparent distress, obese - Head Head exam: Present: atraumatic, normocephalic - Eye Eye exam: Present: normal appearance, EOMI - ENT ENT exam: Present: mucous membranes moist - Neck Neck exam: Present: normal inspection - Respiratory Respiratory exam: Present: normal lung sounds bilaterally. Absent: respiratory distress - Cardiovascular Cardiovascular Exam: Present: normal rhythm, tachycardia - GI/Abdominal GI/Abdominal exam: Present: soft. Absent: distended, tenderness - Rectal Rectal exam: Present: heme (-) stool, other (dark stool) - Extremities Exam Extremities exam: Present: normal inspection - Neurological Exam Neurological exam: Present: alert, oriented X3 - Psychiatric Psychiatric exam: Present: normal affect, normal mood - Skin Skin exam: Present: warm, dry, intact, normal color ED Course Vital Signs 08/02/21 08/02/21 08/02/21 21:22 22:26 22:27 Temperature 98.3 F 98.4 F Pulse Rate 121 H 122 H Respiratory 22 22 22 Rate Blood Pressure 139/86 Blood Pressure 128/91 [Left] O2 Sat by Pulse 98 99 99 Oximetry 08/03/21 08/03/21 08/03/21 01:00 01:55 02:12 Temperature 98.4 F Pulse Rate 122 H 122 H 115 H Respiratory 20 Rate Blood Pressure 149/92 130/66 Blood Pressure 130/66 [Left] O2 Sat by Pulse 99 Oximetry 08/03/21 08/03/21 02:25 02:32 Temperature Pulse Rate 116 H 108 H Respiratory Rate Blood Pressure Blood Pressure 130/66 [Left] O2 Sat by Pulse Oximetry ED Medical Decision Making - Lab Data Result diagrams: 08/02/21 22:29 08/02/21 22:29 - EKG Data -: EKG Interpreted by Mn EKG shows normal: QRS complexes, ST-T waves Rate: tachycardia (rate 127) - Radiology Data Radiology results: report reviewed, image reviewed - Medical Decision Making 56-year-old male, history of hypertension, CHF, atrial fibrillation on Xarelto, alcohol abuse, instructed to come to ED by his physician for low hemoglobin. Chart review shows that patient has a history of alcohol abuse, gastritis. Patient reports he has been having some epigastric pain off and on, and also kd e dark-colored stools as well. Patient reports some mild shortness of breath and general weakness. Chest x-ray is normal. EKG shows A. fib. Patient is tachycardic. This could possibly be due to the fact that patient reports he has been drinking today. Patient given metoprolol for rate control. Heart rate improved from the 130s to the low 100s. Hemoglobin resulted at 7.8. On exam revealed dark stool, but was guaiac negative. Patient would not require a transfusion at this time. Outpatient follow-up advised with his physician. Return precautions given. - Differential Diagnosis Anemia, gastritis, GI bleed, pulmonary edema Critical care attestation.: If time is entered above; I have spent that time in minutes in the direct care of this critically ill patient, excluding procedure time. ED Disposition Clinical Impression: Anemia, Atrial fibrillation with rapid ventricular response Disposition: 01 HOME / SELF CARE / HOMELESS Is pt being admited?: No Condition: Stable Instructions: Complete Blood Count Additional Instructions: Your hemoglobin is 7.8 today. You do not require a blood transfusion at this time. Please follow-up with your regular doctor to investigate this further. Referrals: PRIMARY CAREMD [Primary Care Provider] - 3-5 Days Time of Disposition: 02:33
[2021-08-02 23:22] LABS: Mean Corpuscular HGB Conc 29 % (32-34); Mean Corpuscular Volume 83 fl (84-94); Platelet Count 227 K/mm3 (140-440)
[2021-08-02 23:32] LABS: INR 1.6 (0.87-1.13)
[2021-08-02 23:33] LABS: Hematocrit 26.4 % (35.5-45.6); Hemoglobin 7.8 gm/dl (11.8-15.2); Partial Thromboplastin Time 33.8 Sec. (24.2-36.6); Red Cell Distribution Width 25.4 % (13.2-15.2)
[2021-08-02 23:42] LABS: Albumin 3.8 g/dL (3.9-5); Bilirubin,Direct 0.4 mg/dL (0-0.2); Calcium 8.8 mg/dL (8.4-10.2)
[2021-08-02] MEDS ORDERED: METOPROLOL TARTRATE 5 MG/5 ML INJ IV ONE (23:42)
--- NOTE | 2021-08-03 00:34 | XRay Report ---
CHEST 1 VIEW 08/02/2021 11:24 PM INDICATION / CLINICAL INFORMATION: sob. COMPARISON: 07/12/2018 FINDINGS: SUPPORT DEVICES: None. HEART / MEDIASTINUM: No significant abnormality. LUNGS / PLEURA: No significant pulmonary or pleural abnormality. No pneumothorax. ADDITIONAL FINDINGS: No significant additional findings. IMPRESSION: 1. No acute findings. Signer Name: Honorio Lundberg DO Signed: 08/03/2021 12:29 AM Workstation Name: [id number]
[2021-08-03 01:49] LABS: Anisocytosis 1+; Band Neutrophils # (Manual) 0.1 K/mm3; Total Cells Counted 100
[2021-08-03 01:50] LABS: Platelet Estimate Consistent w Auto
[2021-08-03 01:56] VITALS: BP 130/66
[2021-08-03] MEDS ORDERED: METOPROLOL TARTRATE 5 MG/5 ML INJ IV ONE (02:02)
--- NOTE | 2021-08-06 10:14 | Electrocardiograph Report ---
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
== END 2021-08-03 03:09 | disposition home or self-care (01) ==
LOC: ED 19:50
DX: D64.9 Anemia, unspecified (principal); I48.91 Unspecified atrial fibrillation; Z87.891 Personal history of nicotine dependence; I10 Essential (primary) hypertension; E11.8 Type 2 diabetes mellitus with unspecified complications; Z86.79 Personal history of other diseases of the circulatory system
CPT/HCPCS: 36415; 71045; 80048; 80076; 83690; 85007; 85025; 85610; 85730; 93005; 96374; 96376; 99284

== ENCOUNTER 2021-08-25 08:37 | Outpatient (CLI) | payer MEDICAID ==
--- NOTE | 2021-08-25 16:18 | Ultrasound Report ---
Limited Ultrasound HISTORY: Pain, question hernia. TECHNIQUE: Grayscale and color Doppler imaging performed. COMPARISON: None. FINDINGS: Targeted ultrasound focused in the areas of reported pain and suspected hernia was performe d. No evidence of defect within the wall. No findings to suggest the presence of hernia. No movement is identified with ultrasound. IMPRESSION: No evidence of hernia. Signer Name: Hemant Fragoso MD Signed: 08/25/2021 4:14 PM Workstation Name: [id number]
== END 2021-08-25 08:38 | disposition home or self-care (01) ==
LOC: US 08:37
PROVIDERS: ATTEND Internal Medicine Hematology & Oncology
DX: K43.9 Ventral hernia without obstruction or gangrene (principal)
CPT/HCPCS: 76705

== ENCOUNTER 2021-11-20 10:09 | Outpatient (CLI) | payer MEDICAID ==
--- NOTE | 2021-11-20 14:24 | Cat Scan Report ---
CTA of the abdomen and pelvis with bilateral lower extremity runoff INDICATION / CLINICAL INFORMATION: Lower extremity pain and claudication. TECHNIQUE: Axial CT images were obtained of the abdomen and pelvis with bilateral lower extremity runoff after i njection of 150 mL Omnipaque 350. IV contrast using CTA protocol. 3 plane MIP / 3D reconstructions we re produced. All CT scans at this location are performed using CT dose reduction for ALARA by means o f automated exposure control. COMPARISON: None available. FINDINGS: CTA abdomen and pelvis: Mild atherosclerotic calcification of the abdominal aorta. No aneurysm or dissection. The celiac and SMA arteries contain some atherosclerotic calcification but no high-grade stenosis or occlusion. Ther e are 2 renal arteries on the left and a single renal artery on the right. The KRISTOPHER is patent. Both co mmon and external iliac arteries are grossly patent without high-grade stenosis or occlusion. There i s mild atherosclerotic disease within both iliac arteries The liver is cirrhotic. There is mild ascites. There is mild splenomegaly. Small type I hiatal hernia . Varices are identified along the stomach and the distal thoracic esophagus. Sigmoid diverticulosis. Urinary bladder is unremarkable. Review of the lower extremity soft tissues demonstrates severe neur opathic changes of both feet with subcutaneous edema. CTA right lower extremity runoff: The right common femoral artery and SFA contain atherosclerotic dusty cification but no high-grade stenosis or occlusion is identified. There is severe arterial calcificat ion involving the runoff vessels below the right knee but each vessel appears at least grossly patent with three-vessel runoff below the right knee CTA left lower extremity runoff: Scattered atherosclerotic calcification throughout the left common f emoral artery as well as the left SFA without high-grade stenosis or occlusion. There is about 30-40% long segment narrowing involving the distal left SFA secondary to scattered atherosclerotic plaque. The popliteal artery is patent. There is severe arterial calcification involving the runoff vessels b elow the left knee. There is three-vessel runoff below the left knee IMPRESSION: 1. Scattered arterial calcification and the runoff vessels below both knees without evidence of high- grade arterial occlusion. Three-vessel runoff below both knees. 2. Scattered atherosclerotic calcification primarily within the distal SFA is without high-grade sten osis or occlusion. 3. Cirrhotic liver with evidence of portal venous hypertension, as outlined above. Signer Name: Félix Gandara MD Signed: 11/20/2021 2:19 PM Workstation Name: [id number]
== END 2021-11-20 10:10 | disposition home or self-care (01) ==
LOC: CT 10:09
PROVIDERS: ATTEND Internal Medicine Hematology & Oncology
DX: R16.1 Splenomegaly, not elsewhere classified (principal); R20.2 Paresthesia of skin; R26.2 Difficulty in walking, not elsewhere classified; I70.0 Atherosclerosis of aorta; K74.60 Unspecified cirrhosis of liver; R18.8 Other ascites; K44.9 Diaphragmatic hernia without obstruction or gangrene; K57.30 Diverticulosis of large intestine without perforation or abscess without bleeding; I65.22 Occlusion and stenosis of left carotid artery
CPT/HCPCS: 36415; 75635; 82565; 84520; Q9967

== ENCOUNTER 2021-12-07 08:59 | Day surgery (SDC) | payer MEDICAID ==
[2021-12-07 10:01] VITALS: BP 154/99
[2021-12-07 10:46] LABS: INR 4.09 (0.87-1.13)
[2021-12-07 10:47] LABS: Partial Thromboplastin Time 36.1 Sec. (24.2-36.6)
--- NOTE | 2021-12-07 15:12 | Ultrasound Report ---
ULTRASOUND ABDOMEN LIMITED HISTORY: Ascites TECHNIQUE: Grayscale ultrasound FINDINGS: This examination was scheduled as an ultrasound guided paracentesis. All 4 quadrants of the abdomen were scanned for the presence of ascites. There is only trace perihepatic ascites. No sonogr aphic window large enough for safe paracentesis was found. Cirrhotic changes are noted in the liver. IMPRESSION: Trace ascites. No collection large enough for ultrasound-guided paracentesis. Signer Name: Camilo Arce Jr, MD Signed: 12/07/2021 3:08 PM Workstation Name: [id number]
== END 2021-12-07 09:00 | disposition home or self-care (01) ==
LOC: US 08:59 → CATHLABREC 08:59 → EDSTATUS 09:00 → CATHLABREC 09:00
PROVIDERS: ATTEND Internal Medicine Hematology & Oncology
DX: K70.30 Alcoholic cirrhosis of liver without ascites (principal); E11.9 Type 2 diabetes mellitus without complications; D64.9 Anemia, unspecified; I48.20 Chronic atrial fibrillation, unspecified; I11.0 Hypertensive heart disease with heart failure; I50.9 Heart failure, unspecified; I25.10 Atherosclerotic heart disease of native coronary artery without angina pectoris; J44.9 Chronic obstructive pulmonary disease, unspecified; M19.90 Unspecified osteoarthritis, unspecified site; E66.9 Obesity, unspecified; Z87.442 Personal history of urinary calculi; Z91.81 History of falling; Z88.5 Allergy status to narcotic agent; Z79.899 Other long term (current) drug therapy; Z87.440 Personal history of urinary (tract) infections; Z68.41 Body mass index [BMI] 40.0-44.9, adult
CPT/HCPCS: 36415; 76705; 85610; 85730

== ENCOUNTER 2022-01-02 11:00 | Outpatient (CLI) | payer MEDICAID | END 2022-01-02 11:01 | disposition home or self-care (01) | LOC: SLR 11:00 | PROVIDERS: ATTEND Internal Medicine | DX: G47.30 Sleep apnea, unspecified (principal) | CPT/HCPCS: 95810 ==

== ENCOUNTER → 2022-02-17 | Outpatient (CLI) | payer MEDICAID | END | disposition home or self-care (01) | LOC: SLR 11:00 | PROVIDERS: ATTEND Internal Medicine Hematology & Oncology | DX: G47.33 Obstructive sleep apnea (adult) (pediatric) (principal) | CPT/HCPCS: 95811 ==

== ENCOUNTER 2022-02-26 11:50 | Outpatient (CLI) | payer MEDICAID ==
--- NOTE | 2022-02-26 12:37 | XRay Report ---
CHEST 2 VIEWS INDICATION: COUGH. COMPARISON: 08/03/2021 FINDINGS: Support devices: None. Heart: Within normal limits. Lungs/pleura: No acute air space or interstitial disease. No pleural abnormality or pneumothorax. Pn eumothorax. Additional findings: None. IMPRESSION: No acute findings. Signer Name: Camilo Arce Jr, MD Signed: 02/26/2022 12:33 PM Workstation Name: [id number]
== END 2022-02-26 11:51 | disposition home or self-care (01) ==
LOC: XRAY 11:50
PROVIDERS: ATTEND Internal Medicine Hematology & Oncology
DX: R06.02 Shortness of breath (principal)
CPT/HCPCS: 71046

== ENCOUNTER 2022-05-06 09:26 | Outpatient (CLI) | payer MEDICAID ==
--- NOTE | 2022-05-06 14:04 | XRay Report ---
Lumbar spine, 5 views HISTORY: Pain COMPARISON: CT from 11/20/2021. FINDINGS: Normal alignment. Mild disc space height loss at L5-S1 and mild lower lumbar facet arthropathy. No ev idence of fracture. IMPRESSION: No acute findings Signer Name: Jasiel Manriquez MD Signed: 05/06/2022 1:59 PM Workstation Name: [id number]
== END 2022-05-06 09:27 | disposition home or self-care (01) ==
LOC: XRAY 09:26
PROVIDERS: ATTEND Internal Medicine Hematology & Oncology
DX: M47.816 Spondylosis without myelopathy or radiculopathy, lumbar region (principal)
CPT/HCPCS: 72110

== ENCOUNTER 2022-07-01 00:15 | Emergency (ER) | payer MEDICAID ==
[2022-07-01 01:00] VITALS: BP 122/88
== END 2022-07-01 04:38 | disposition left against medical advice (07) ==
LOC: ED 00:15
DX: R10.9 Unspecified abdominal pain (principal); Z53.21 Procedure and treatment not carried out due to patient leaving prior to being seen by health care provider

== ENCOUNTER 2022-07-03 18:24 | Emergency (ER) | payer MEDICAID ==
--- NOTE | 2022-07-03 20:39 | XRay Report ---
CHEST 1 VIEW 07/03/2022 7:31 PM INDICATION / CLINICAL INFORMATION: sob, weakness. COMPARISON: February 2022 FINDINGS: SUPPORT DEVICES: None. HEART / MEDIASTINUM: Stable. LUNGS / PLEURA: No significant pulmonary or pleural abnormality. No pneumothorax. ADDITIONAL FINDINGS: Interval development of subacute mid posterior right rib fractures. IMPRESSION: 1. No new focal acute cardiopulmonary process demonstrated. 2. Interval development of subacute posterior mid right rib fractures. Signer Name: Ruth Segura MD Signed: 07/03/2022 8:35 PM Workstation Name: [id number]
[2022-07-03 21:20] LABS: INR 1.8 (0.87-1.13)
[2022-07-03 21:21] LABS: Partial Thromboplastin Time 39.4 Sec. (24.2-36.6)
[2022-07-03 21:27] LABS: Basophils # (Auto) 0.1 K/mm3 (0.0-0.1); Basophils % (Auto) 1.1 % (0.0-1.8); Eosinophils # (Auto) 0.2 K/mm3 (0.0-0.4); Eosinophils % (Auto) 2.8 % (0.0-4.3); Hemoglobin 12.2 gm/dl (11.8-15.2); Lymphocytes % (Auto) 13.5 % (13.4-35.0); Mean Corpuscular HGB Conc 33 % (32-34); Mean Corpuscular Volume 81 fl (84-94); Platelet Count 124 K/mm3 (140-440); Red Blood Count 4.59 M/mm3 (3.65-5.03)
[2022-07-03 21:30] LABS: Albumin 3.7 g/dL (3.9-5); Calcium 8.4 mg/dL (8.4-10.2); Free T4 (Free Thyroxine) 1.33 ng/dL (0.76-1.46); Red Cell Distribution Width 24.4 % (13.2-15.2)
[2022-07-03 21:47] LABS: Chol/HDL Ratio 2.63 %
--- NOTE | 2022-07-03 22:16 | Emergency Department Report ---
- General Chief complaint: Weakness Stated complaint: STOMACH PAIN/PT UNABLE TO WALK Time Seen by Provider: 07/03/22 19:59 Source: patient, family Mode of arrival: Wheelchair Limitations: Other - History of Present Illness Initial comments: 56-year-old male, history of hypertension, CHF, atrial fibrillation on Xarelto, and alcohol abuse presents to the hospital with complaints of generalized weakness and feeling wobbly with ambulation for least 3 to 5 weeks. Patient also complains of pain to bilateral feet with ambulation. Patient also reports decreased appetite and decreased p.o. intake. He denies pain, nausea, vomiting, shortness of breath, or fever. Patient was here 2 days ago but left prior to MD evaluation. Patient also states he has a history of fluid in the abdomen with attempted paracentesis here in the past. As per medical record review patient had an outpatient CTA of the abdomen and ultrasound guided paracentesis attempt in November 2021. At that time he did not have enough drainable fluid. CTA of the abdomen noted that patient does have cirrhosis of the liver with portal hypertension at this time. PMD is Dr. LAZARO - Related Data Home Medications Medication Instructions Recorded Confirmed Last Taken Metoprolol Xl [Metoprolol 50 mg PO DAILY 07/13/18 12/07/21 12/06/21 SUCCINATE ER TAB] 1 TAB Rivaroxaban [Xarelto] 20 mg PO DAILY 12/07/21 12/07/21 12/06/21 1 TAB Previous Rx's Medication Instructions Recorded Last Taken Type Folic Acid [Folvite] 1 mg PO QDAY #30 tablet 05/02/17 12/06/21 Rx 1 TAB Furosemide [Lasix TAB] 40 mg PO QDAY #30 tablet 05/02/17 12/06/21 Rx 1 TAB Ipratropium/Albuterol Sulfate 1 ampul IH BIDRT #30 ampul.neb 05/02/17 12/07/21 Rx [DUONEB *Not for PRN Use*] 1 PUFF dilTIAZem CD [Cardizem CD] 240 mg PO QDAY #30 capsule 05/02/17 12/06/21 Rx 1 TAB Pantoprazole [Protonix TAB] 40 mg PO DAILY #30 tablet 07/19/18 12/06/21 Rx 1 TAB Folic Acid 1 mg PO DAILY #30 tab 07/03/22 Unknown Rx Magnesium Oxide [Mag-Ox] 400 mg PO QDAY #14 tab 07/03/22 Unknown Rx Multivitamin 1 each PO DAILY #30 tab 07/03/22 Unknown Rx Allergies Allergy/AdvReac Type Severity Reaction Status Date / Time morphine Allergy Mild Unknown Verified 07/03/22 18:27 ED Review of Systems ROS: Stated complaint: STOMACH PAIN/PT UNABLE TO WALK Other details as noted in HPI Comment: All other systems reviewed and negative ED Past Medical Hx - Past Medical History Hx Hypertension: Yes Hx Congestive Heart Failure: Yes Hx Diabetes: Yes Hx Liver Disease: No Hx Sickle Cell Disease: No Hx Arthritis: Yes (hands) Hx Seizures: Yes Hx Kidney Stones: Yes Hx Asthma: No Hx COPD: Yes Hx HIV: No Additional medical history: A fib - Surgical History Hx Pacemaker: No Hx Internal Defibrillator: No - Social History Smoking Status: Never Smoker - Medications Home Medications: Home Medications Medication Instructions Recorded Confirmed Last Taken Type Folic Acid [Folvite] 1 mg PO QDAY #30 tablet 05/02/17 12/07/21 12/06/21 Rx 1 TAB Furosemide [Lasix TAB] 40 mg PO QDAY #30 tablet 05/02/17 12/07/21 12/06/21 Rx 1 TAB Ipratropium/Albuterol Sulfate 1 ampul IH BIDRT #30 ampul.neb 05/02/17 12/07/21 12/07/21 Rx [DUONEB *Not for PRN Use*] 1 PUFF dilTIAZem CD [Cardizem CD] 240 mg PO QDAY #30 capsule 05/02/17 12/07/21 12/06/21 Rx 1 TAB Metoprolol Xl [Metoprolol 50 mg PO DAILY 07/13/18 12/07/21 12/06/21 History SUCCINATE ER TAB] 1 TAB Pantoprazole [Protonix TAB] 40 mg PO DAILY #30 tablet 07/19/18 12/07/21 12/06/21 Rx 1 TAB Rivaroxaban [Xarelto] 20 mg PO DAILY 12/07/21 12/07/21 12/06/21 History 1 TAB Folic Acid 1 mg PO DAILY #30 tab 07/03/22 Unknown Rx Magnesium Oxide [Mag-Ox] 400 mg PO QDAY #14 tab 07/03/22 Unknown Rx Multivitamin 1 each PO DAILY #30 tab 07/03/22 Unknown Rx ED Physical Exam - General Limitations: Other ED Course Vital Signs 07/03/22 18:29 Temperature 99.6 F Pulse Rate 86 Respiratory 18 Rate Blood Pressure 115/76 O2 Sat by Pulse 98 Oximetry - Reevaluation(s) Reevaluation #1: 07/03/22 22:15 I went into the patient to speak to patient once again and he is dressed and sitting in a chair. Patient states he no longer wants to be evaluated and wants to go home. He states he is feeling better. I informed him of findings of rib fractures on his chest x-ray. He denies recent fall, chest wall pain, or history of rib fracture diagnosis. He is states that his abdominal distention is chronic and he notes he has fluid in his abdomen. He denies pain at this time. He was informed of his elevated troponin and need for repeat. Patient does not have chest pain and does not want to stay for repeat. He was also informed of his mild renal insufficiency. Patient will be signing out AGAINST MEDICAL ADVICE and provided a copy of his labs to take to his doctor. ED Medical Decision Making - Lab Data Result diagrams: 07/03/22 20:34 07/03/22 20:34 Lab Results 07/03/22 07/03/22 07/03/22 Range/Units 20:34 20:34 20:34 WBC 7.2 (4.5-11.0) K/mm3 RBC 4.59 (3.65-5.03) M/mm3 Hgb 12.2 (11.8-15.2) gm/dl Hct 37.0 (35.5-45.6) % MCV 81 L (84-94) fl MCH 27 L (28-32) pg MCHC 33 (32-34) % RDW 24.4 H (13.2-15.2) % Plt Count 124 L (140-440) K/mm3 Lymph % (Auto) 13.5 (13.4-35.0) % [place] % (Auto) 14.0 H (0.0-7.3) % Eos % (Auto) 2.8 (0.0-4.3) % Baso % (Auto) 1.1 (0.0-1.8) % Lymph # (Auto) 1.0 L (1.2-5.4) K/mm3 [place] # (Auto) 1.0 H (0.0-0.8) K/mm3 Eos # (Auto) 0.2 (0.0-0.4) K/mm3 Baso # (Auto) 0.1 (0.0-0.1) K/mm3 Seg Neutrophils % 68.6 (40.0-70.0) % Seg Neutrophils # 5.0 (1.8-7.7) K/mm3 PT 23.2 H (12.2-14.9) Sec. INR 1.80 H (0.87-1.13) APTT 39.4 H (24.2-36.6) Sec. Sodium 127 L (137-145) mmol/L Potassium 3.9 (3.6-5.0) mmol/L Chloride 87.3 L (98-107) mmol/L Carbon Dioxide 22 (22-30) mmol/L Anion Gap 22 mmol/L BUN 15 (9-20) mg/dL Creatinine 2.3 H (0.8-1.3) mg/dL Estimated GFR 29 ml/min BUN/Creatinine Ratio 7 % Glucose 118 H (75-100) mg/dL Calcium 8.4 (8.4-10.2) mg/dL Magnesium 1.30 L (1.7-2.3) mg/dL Total Bilirubin 2.00 H (0.1-1.2) mg/dL AST 56 H (5-40) units/L ALT 32 (7-56) units/L Alkaline Phosphatase 186 H (35-129) units/L Ammonia (25-60) umol/L Troponin T 0.030 H (0.00-0.029) ng/mL NT-Pro-B Natriuret Pep 841.9 (0-900) pg/mL Total Protein 7.0 (6.3-8.2) g/dL Albumin 3.7 L (3.9-5) g/dL Albumin/Globulin Ratio 1.1 % Triglycerides 121 (2-149) mg/dL Cholesterol 100 (50-199) mg/dL LDL Cholesterol Direct 47 L (50-130) mg/dL HDL Cholesterol 38 L (40-59) mg/dL Cholesterol/HDL Ratio 2.63 % TSH (0.270-4.200) mlU/mL Free T4 (0.76-1.46) ng/dL 07/03/22 07/03/22 Range/Units 20:34 20:34 WBC (4.5-11.0) K/mm3 RBC (3.65-5.03) M/mm3 Hgb (11.8-15.2) gm/dl Hct (35.5-45.6) % MCV (84-94) fl MCH (28-32) pg MCHC (32-34) % RDW (13.2-15.2) % Plt Count (140-440) K/mm3 Lymph % (Auto) (13.4-35.0) % [place] % (Auto) (0.0-7.3) % Eos % (Auto) (0.0-4.3) % Baso % (Auto) (0.0-1.8) % Lymph # (Auto) (1.2-5.4) K/mm3 [place] # (Auto) (0.0-0.8) K/mm3 Eos # (Auto) (0.0-0.4) K/mm3 Baso # (Auto) (0.0-0.1) K/mm3 Seg Neutrophils % (40.0-70.0) % Seg Neutrophils # (1.8-7.7) K/mm3 PT (12.2-14.9) Sec. INR (0.87-1.13) APTT (24.2-36.6) Sec. Sodium (137-145) mmol/L Potassium (3.6-5.0) mmol/L Chloride (98-107) mmol/L Carbon Dioxide (22-30) mmol/L Anion Gap mmol/L BUN (9-20) mg/dL Creatinine (0.8-1.3) mg/dL Estimated GFR ml/min BUN/Creatinine Ratio % Glucose (75-100) mg/dL Calcium (8.4-10.2) mg/dL Magnesium (1.7-2.3) mg/dL Total Bilirubin (0.1-1.2) mg/dL AST (5-40) units/L ALT (7-56) units/L Alkaline Phosphatase (35-129) units/L Ammonia 43.0 (25-60) umol/L Troponin T (0.00-0.029) ng/mL NT-Pro-B Natriuret Pep (0-900) pg/mL Total Protein (6.3-8.2) g/dL Albumin (3.9-5) g/dL Albumin/Globulin Ratio % Triglycerides (2-149) mg/dL Cholesterol (50-199) mg/dL LDL Cholesterol Direct (50-130) mg/dL HDL Cholesterol (40-59) mg/dL Cholesterol/HDL Ratio % TSH 1.250 (0.270-4.200) mlU/mL Free T4 1.33 (0.76-1.46) ng/dL - EKG Data -: EKG Interpreted by Me (afib) EKG shows normal: ST-T waves (no stemi) Rate: normal (93) - EKG Data When compared to previous EKG there are: no significant change - Radiology Data Radiology results: report reviewed CHEST 1 VIEW 07/03/2022 7:31 PM INDICATION / CLINICAL INFORMATION: sob, weakness. COMPARISON: February 2022 FINDINGS: SUPPORT DEVICES: None. HEART / MEDIASTINUM: Stable. LUNGS / PLEURA: No significant pulmonary or pleural abnormality. No pneumothorax. ADDITIONAL FINDINGS: Interval development of subacute mid posterior right rib fractures. IMPRESSION: 1. No new focal acute cardiopulmonary process demonstrated. 2. Interval development of subacute posterior mid right rib fractures. - Medical Decision Making 56-year-old male presents to the hospital with generalized weakness, decreased appetite, tired feeling, wobbly gait, and bilateral feet pain for 3 to 5 weeks. He does endorse continued daily alcohol use. He typically drinks wine. He denies history of alcohol withdrawal seizures or tremors. He is compliant with his medications. ED work-up reveals chronic atrial fibrillation, acute renal sufficiency compared to recent creatinine on record, mild troponin elevation without chest pain, possible right-sided rib fractures as per x-ray, hypomagnesemia, and mild hyponatremia. Patient insist that he feels better and no longer wants to stay in the ER for continued evaluation (repeat trop, ct imaging study) Patient will be signed out AGAINST MEDICAL ADVICE and provide a copy of his labs to take to his primary care doctor for evaluation. He will also be started on p.o. magnesium for mild hypomagnesemia and multivitamins due to history of continued alcohol abuse. Patient has a normal ammonia level and is alert and oriented x3. Critical Care Time: No Critical care attestation.: If time is entered above; I have spent that time in minutes in the direct care of this critically ill patient, excluding procedure time. ED Disposition Clinical Impression: Generalized weakness, Alcohol abuse, Chronic atrial fibrillation, Acute renal insufficiency, Elevated troponin, Hypomagnesemia, Hyponatremia Disposition: 07 LEFT AGAINST MEDICAL ADVICE Is pt being admited?: No Condition: Stable Instructions: Acute Kidney Injury, Adult, Alcohol Use Disorder, Hypomagnesemia, Weakness Additional Instructions: You have declined additional ER evaluation today. Please follow-up with your doctor as soon as possible for further treatment. Take the laboratory findings and imaging results provided to your doctor for continued outpatient work-up. Please return if symptoms worsen as indicated by your discharge instructions. You have also been provided follow-up with cardiology and a kidney specialist. Prescriptions: Folic Acid 1 mg PO DAILY #30 tab Magnesium Oxide [Mag-Ox] 400 mg PO QDAY #14 tab Multivitamin 1 each PO DAILY #30 tab Referrals: SUZI VALDIVIA MD [Staff Physician] - 3-5 Days (Kidney doctor) JOSSUE CHAMBERS MD [Staff Physician] - 3-5 Days (Teachers Aide) GRAY BANUELOS DO [Staff Physician] - REINA (Your primary care doctor) Forms: AMA Form Time of Disposition: 22:34
[2022-07-04 01:02] VITALS: BP 128/78
--- NOTE | 2022-07-07 14:02 | Electrocardiograph Report ---
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
== END 2022-07-03 22:40 | disposition left against medical advice (07) ==
LOC: ED 18:24
DX: R53.1 Weakness (principal); F10.10 Alcohol abuse, uncomplicated; I48.20 Chronic atrial fibrillation, unspecified; N28.9 Disorder of kidney and ureter, unspecified; R74.8 Abnormal levels of other serum enzymes; E83.42 Hypomagnesemia; E87.1 Hypo-osmolality and hyponatremia; Z88.5 Allergy status to narcotic agent; I10 Essential (primary) hypertension
CPT/HCPCS: 36415; 71045; 80053; 80061; 82140; 82962; 83735; 83880; 84439; 84443; 84484; 85025; 85610; 85730; 93005; 99284